=== PATIENT | female | born 1955 | race Caucasian/White ===

== ENCOUNTER → 2016-05-09 | Outpatient (CLI) | payer OTHER ==
[~2016-05-09] VITALS: Ht 162.6 cm; Wt 97.5 kg
[2016-05-09] VITALS (8 sets, daily range): BP systolic 100–144; BP diastolic 51–68
[~2016-05-09] MED LIST: ALBU2.5V13 NEB; ALBU8.5H6 IH; ALBUMIN HUMAN 25% 100 ML IV ONE; ALBUMIN HUMAN 25% 200 ML IV ONE; AMOX500C PO; ATOR10TA60 PO; CALC-98 PO; CHOL10003 PO; CYCL5TAB PO; FLUT12AE IH; FLUT16SP2 NS; FURO40TA4 PO; GUAI100L12 PO; INSU100I13 SQ; INSU100I17 SQ; LACT20SO PO; LEVO25TA2 PO; LIDOCAINE 1% / SOD BICARB 8.4% 20 ML VIAL. IJ ONE; LISI2.5T PO; LORA1TAB PO; OMEP20CA9 PO; OXYC5TAB PO; PITA2TAB2 PO; RIFA550T PO; SPIR25TA3 PO; TRAM50TA PO
[2016-05-09 09:00] LABS: BASO # 0.1 x10^3/uL (0.0-0.2); BASO % 1 % (0-3); EOS % 3 % (0-3); HEMATOCRIT 36.2 % (36.0-47.0); HEMOGLOBIN 11.8 g/dL (12.0-15.5); LYMPH % 15 % (24-48); MEAN CORPUSCULAR HEMOGLOBIN 27 pg (25-35); MEAN CORPUSCULAR HGB CONC 33 g/dL (31-37); MEAN CORPUSCULAR VOLUME 83 fL (79-100); MONO % 7 % (0-9); NEUT % 74 % (31-73); PLATELET COUNT 169 x10^3/uL (140-400); RED BLOOD COUNT 4.39 x10^6/uL (3.50-5.40); WHITE BLOOD COUNT 6.9 x10^3/uL (4.0-11.0)
[2016-05-09 09:12] LABS: INR 1.2 (0.8-1.1); PROTHROMBIN TIME PATIENT 14.2 SEC (11.7-14.0)
--- NOTE | 2016-05-09 12:46 | PDOC ---
BRIEF OPERATIVE NOTE Pre-Op Diagnosis Ascites Post-Op Diagnosis same Procedure Performed US paracentesis Surgeon Omer Anesthesia Type: Local Findings 10L thin yellow fluid removed. Albumin repletion performed Complications No immediate ALFONZO WILKINS MD May 09, 2016 12:46
--- NOTE | 2016-05-09 12:49 | RAD ---
Procedure: Ultrasound guided paracentesis Clinical Indication: 60-year-old with abdominal ascites Sedation: Local anesthesia only Antibiotics: None Fluoro Time: None Contrast: Not applicable Sterility: The procedure was performed in its entirety using appropriate elements of sterile technique. Consent: The procedure was explained in its entirety to the patient or the patients designated education courses sales representative by a member of the treatment team, including a discussion of the risks, benefits and commonly accepted alternatives to the procedure, as well as the expected consequences of no therapy whatsoever. Discussion of the risks included, but was not limited to, those that are most frequent and those that are rare but possibly severe or life-threatening, as well as the possibility of unforeseen complications. Technique and Findings: Following informed consent, the patient was prepped and draped in the usual sterile fashion. Ultrasound interrogation of the abdomen revealed abdominal ascites. A hard copy ultrasound image was recorded. 1% Lidocaine was used to achieve local anesthesia over the area of interest, and a 6 Austrian Xjfq-T-Rlyolkqo catheter was advanced into the peritoneal cavity under ultrasound guidance. 10,000 cc of thin yellow ascites was then withdrawn. The catheter was removed and hemostasis was achieved with manual compression. Complications: No immediate Impression: 1. Ultrasound-guided paracentesis as described
== END | disposition home or self-care (01) ==
LOC: INTRAD 08:41
PROVIDERS: ATTEND Internal Medicine Gastroenterology
DX: R18.8 Other ascites (principal); G62.9 Polyneuropathy, unspecified; E78.00 Pure hypercholesterolemia, unspecified; I10 Essential (primary) hypertension; J44.9 Chronic obstructive pulmonary disease, unspecified; J45.909 Unspecified asthma, uncomplicated; E66.9 Obesity, unspecified; K21.9 Gastro-esophageal reflux disease without esophagitis; Z90.710 Acquired absence of both cervix and uterus; M19.90 Unspecified osteoarthritis, unspecified site; E11.9 Type 2 diabetes mellitus without complications; E03.9 Hypothyroidism, unspecified; F41.9 Anxiety disorder, unspecified; F32.9 Major depressive disorder, single episode, unspecified; F17.200 Nicotine dependence, unspecified, uncomplicated; K74.60 Unspecified cirrhosis of liver
CPT/HCPCS: 36415; 49083; 82947; 85027; 85610; P9046

== ENCOUNTER 2016-06-14 08:43 | Outpatient (CLI) | payer OTHER ==
[~2016-06-14] VITALS: Ht 161.3 cm; Wt 95.3 kg
[~2016-06-14 08:43] MED LIST changes: -ALBU2.5V13 NEB; +ALBU2.5V14 NEB; -ALBUMIN HUMAN 25% 100 ML IV ONE; -ALBUMIN HUMAN 25% 200 ML IV ONE; -LIDOCAINE 1% / SOD BICARB 8.4% 20 ML VIAL. IJ ONE
[2016-06-14 09:15] LABS: BASO # 0.1 x10^3/uL (0.0-0.2); BASO % 1 % (0-3); EOS % 2 % (0-3); HEMATOCRIT 33.9 % (36.0-47.0); HEMOGLOBIN 11.1 g/dL (12.0-15.5); LYMPH # 0.9 x10^3/uL (1.0-4.8); LYMPH % 14 % (24-48); MEAN CORPUSCULAR HEMOGLOBIN 27 pg (25-35); MEAN CORPUSCULAR HGB CONC 33 g/dL (31-37); MEAN CORPUSCULAR VOLUME 83 fL (79-100); MONO % 8 % (0-9); NEUT % 75 % (31-73); PLATELET COUNT 144 x10^3/uL (140-400); RED BLOOD COUNT 4.08 x10^6/uL (3.50-5.40); RED CELL DISTRIBUTION WIDTH 17.8 % (11.5-14.5); WHITE BLOOD COUNT 6.3 x10^3/uL (4.0-11.0)
[2016-06-14 09:43] VITALS: BP 143/54
[2016-06-14 09:51] LABS: INR 1.2 (0.8-1.1); PROTHROMBIN TIME PATIENT 14.5 SEC (11.7-14.0)
[2016-06-14] MEDS ORDERED: LIDOCAINE 1% / SOD BICARB 8.4% 20 ML VIAL. IJ ONE ×2 (09:58→10:30)
[2016-06-14] MEDS ORDERED: ALBUMIN HUMAN 25% 100 ML IV ONE (10:54)
--- NOTE | 2016-06-14 11:14 | PDOC ---
Exam Winch Driver Winch Driver [place] Neuroradiologist Neuroradiologist F Ndumbu Pre-Procedure Diagnosis Pre-Procedure Diagnosis 60 YO female with cirrhosis and recurrent large volume ascites Post-Procedure Diagnosis Post-Procedure Diagnosis Same Procedure Performed Procedure Performed Sono guided Tx paracentesis Type of Anesthesia Type of Anesthesia Local Estimated Blood Loss EBL: Trace Specimens Specimans 7700 cc yellow-clear ascites removed and discarded Condition of Patient Condition of Patient Stable. No apparent complication. Disposition Disposition Home from [facility] post recovery, if no problems. F/u with GI. Full report to follow. JULITO SEALS MD Jun 14, 2016 11:14
[2016-06-14 11:16] VITALS: BP 133/63
--- NOTE | 2016-06-14 11:17 | PDOC1 ---
History and Physical Date of Procedure Date of Admission 06/14/16 Procedure Procedure Sono guided Tx paracentesis Indication Indication 60 YO female with cirrhosis and recurrent large volume ascites Past Medical History Past Medical History See Nursing Pre Procedure PMH Past Surgical History Past Surgical History See Nursing Pre procedure PSH Current Medications Current Medications Current Medications Lidocaine/Sodium Bicarbonate (Buffered Lidocaine 1%) 20 ml STK-MED ONCE IJ ; Start 06/14/16 at 09:58; Stop 06/14/16 at 09:59; Status DC Lidocaine/Sodium Bicarbonate 10 ml 10 ml 1X ONCE IJ Last administered on t 11:08; Start 06/14/16 at 10:30; Stop 06/14/16 at 10:31; Status DC Albumin Human (Albuminar) 100 ml @ As Directed STK-MED ONCE IV ; Start at 10:54; Stop 06/14/16 at 10:55; Status DC Active Scripts Active Reported Albuterol Sulfate Conc Neb Soln (Albuterol Sulfate) 2.5 Mg/0.5 Ml Vial.neb 2.5 Mg NEB Q6HRS PRN Omeprazole 20 Mg Capsule.dr 20 Mg PO BID Lactulose 20 Gm/30 Ml Solution 20 Gm PO TID Guaifenesin 100 Mg/5 Ml Liquid 10 Mg PO Q4HRS PRN Furosemide 40 Mg Tablet 40 Mg PO BID Vitamin D3 (Cholecalciferol (Vitamin D3)) 1,000 Unit Tablet 2,000 Unit PO DAILY Lantus Solostar (Insulin Glargine,Hum.rec.anlog) 100 Unit/1 Ml Insuln.pen 43 Unit SQ HS Calcium + Vitamin D Tablet (Calcium Carbonate/Vitamin D3) 1 Each Tablet 1 Each PO Albuterol Sulfate Hfa Inhaler (Albuterol Sulfate) 8.5 Gm Hfa.aer.ad 8.5 Gm IH Novolog Flexpen (Insulin Aspart) 100 Unit/1 Ml Insuln.pen 10 Unit SQ TIDAC Synthroid (Levothyroxine Sodium) 25 Mcg Tablet 300 Mcg PO DAILY Flovent 110MCG Hfa (Fluticasone Propionate) 12 Gm Aer.w.adap 12 Gm IH Spironolactone 25 Mg Tablet 150 Mg PO DAILY Allergies Allergies: Coded Allergies: Sulfa (Sulfonamide Antibiotics) (Verified Allergy, Severe, Swelling, ) tongue swelling, rash cephalexin (Verified Allergy, Severe, Anaphylaxis, 11/01/15) doxycycline (Verified Allergy, Intermediate, 11/01/15) insulin detemir (Verified Allergy, Intermediate, Rash, 11/01/15) niacin (Verified Allergy, Intermediate, Rash, 06/02/13) edema rifaximin (Verified Allergy, Intermediate, Itching, 11/01/15) erythromycin base (Verified Adverse Reaction, Intermediate, Diarrhea, 08/02) Physical Exam Vital Signs Vital Signs Date Time Temp Pulse Resp B/P Pulse Ox O2 Delivery O2 Flow Rate FiO2 06/14/16 09:43 98.0 87 18 143/54 95 Room Air 98.0 Lungs: Clear to auscultation Heart: Regular rate Psych/Mental Status: Other (Mild encephalopathy) Other Abdomen distended c/w ascites Assessment Assessment 60 YO female with cirrhosis and recurrent large volume ascites Problems: Plan Plan U/S guided Tx paracentesis JULITO SEALS MD Jun 14, 2016 11:17
[2016-06-14 11:35] VITALS: BP 126/74
[2016-06-14 12:00] VITALS: BP 125/59
--- NOTE | 2016-06-15 08:05 | RAD ---
Ultrasound-guided therapeutic paracentesis Indication: 60-year-old female with cirrhosis, and with recurrent, large volume ascites. Image guided therapeutic paracentesis has been requested. Anesthesia: Local only Procedure: Informed consent was obtained from the patient. This procedure was performed in the angiography suite, with the patient on a hospital cart. Preliminary ultrasound examination confirmed the presence of a large volume of abdominal/pelvic ascites. A right abdominal peritoneal fluid collection, suitable for sono guided paracentesis, was selected, was marked, and was documented with a single hard copy ultrasound image. That area was then prepped and draped in the usual sterile fashion. Conscious sedation was provided with IV Versed and fentanyl. Using aseptic technique, local anesthesia, and direct ultrasound guidance, a 21-gauge micropuncture needle was successfully introduced into the selected peritoneal fluid collection. The 21-gauge needle was exchanged over a microguidewire for a micropuncture sheath, which was, in turn, exchanged over a 0.035 inch guidewire for a 6 German drainage catheter. Approximately 7700 cc of yellow-clear ascites was removed, and was discarded. The drainage catheter was then removed and a sterile dressing was applied. Patient tolerated the procedure well without apparent complication. . Impression: Successful, uneventful ultrasound-guided therapeutic paracentesis, as described.
== END 2016-06-14 12:15 | disposition home or self-care (01) ==
LOC: INTRAD 08:43
PROVIDERS: ATTEND Internal Medicine Gastroenterology
DX: R18.8 Other ascites (principal); K74.60 Unspecified cirrhosis of liver; E78.00 Pure hypercholesterolemia, unspecified; I10 Essential (primary) hypertension; J44.9 Chronic obstructive pulmonary disease, unspecified; K21.9 Gastro-esophageal reflux disease without esophagitis; M19.90 Unspecified osteoarthritis, unspecified site; E11.9 Type 2 diabetes mellitus without complications; E03.9 Hypothyroidism, unspecified; F41.9 Anxiety disorder, unspecified; F32.9 Major depressive disorder, single episode, unspecified; E66.9 Obesity, unspecified; J45.909 Unspecified asthma, uncomplicated; Z90.710 Acquired absence of both cervix and uterus
CPT/HCPCS: 36415; 49083; 85027; 85610; A4215; C1729; C1892; C1894

== ENCOUNTER 2016-07-11 08:39 | Outpatient (CLI) | payer OTHER ==
[~2016-07-11] VITALS: Ht 167.6 cm; Wt 95.3 kg
[2016-07-11 09:03] LABS: BASO # 0.1 x10^3/uL (0.0-0.2); BASO % 1 % (0-3); EOS % 3 % (0-3); HEMATOCRIT 34.9 % (36.0-47.0); HEMOGLOBIN 11.1 g/dL (12.0-15.5); LYMPH # 0.9 x10^3/uL (1.0-4.8); LYMPH % 12 % (24-48); MEAN CORPUSCULAR HEMOGLOBIN 27 pg (25-35); MEAN CORPUSCULAR HGB CONC 32 g/dL (31-37); MEAN CORPUSCULAR VOLUME 85 fL (79-100); MONO % 6 % (0-9); NEUT % 77 % (31-73); PLATELET COUNT 132 x10^3/uL (140-400); RED BLOOD COUNT 4.11 x10^6/uL (3.50-5.40); RED CELL DISTRIBUTION WIDTH 17.9 % (11.5-14.5); WHITE BLOOD COUNT 7.2 x10^3/uL (4.0-11.0)
[2016-07-11 09:05] VITALS: BP 119/55
[2016-07-11 09:20] LABS: INR 1.1 (0.8-1.1); PROTHROMBIN TIME PATIENT 13.7 SEC (11.7-14.0)
[2016-07-11] MEDS ORDERED: LIDOCAINE 1% / SOD BICARB 8.4% 20 ML VIAL. IJ ONE ×2 (10:01→10:30)
[2016-07-11] MEDS ORDERED: ALBUMIN HUMAN 25% 100 ML IV ONE ×2 (10:45)
[2016-07-11 11:00] VITALS: BP 136/88
[2016-07-11 11:15] VITALS: BP 118/49
--- NOTE | 2016-07-11 11:22 | RAD ---
Procedure: Ultrasound guided paracentesis Clinical Indication: 60-year-old with recurrent abdominal ascites Sedation: Local anesthesia only Antibiotics: None Fluoro Time: None Contrast: Not applicable Sterility: The procedure was performed in its entirety using appropriate elements of sterile technique. Consent: The procedure was explained in its entirety to the patient or the patients designated installation service representative by a member of the treatment team, including a discussion of the risks, benefits and commonly accepted alternatives to the procedure, as well as the expected consequences of no therapy whatsoever. Discussion of the risks included, but was not limited to, those that are most frequent and those that are rare but possibly severe or life-threatening, as well as the possibility of unforeseen complications. Technique and Findings: Following informed consent, the patient was prepped and draped in the usual sterile fashion. Ultrasound interrogation of the abdomen revealed abdominal ascites. A hard copy ultrasound image was recorded. 1% Lidocaine was used to achieve local anesthesia over the area of interest, and a 6 Brazilian Zqwa-B-Ehkocwmp catheter was advanced into the peritoneal cavity under ultrasound guidance. 10,000 cc of thin yellow ascites was then withdrawn. The catheter was removed and hemostasis was achieved with manual compression. Complications: No immediate Impression: 1. Ultrasound-guided paracentesis as described
[2016-07-11 11:30] VITALS: BP 134/58
[2016-07-11 12:00] VITALS: BP 131/91
[2016-07-11 12:20] VITALS: BP 154/62
== END 2016-07-11 11:30 | disposition home or self-care (01) ==
LOC: INTRAD 08:39
PROVIDERS: ATTEND Internal Medicine Gastroenterology
DX: R18.8 Other ascites (principal); K74.60 Unspecified cirrhosis of liver; K21.9 Gastro-esophageal reflux disease without esophagitis; E78.00 Pure hypercholesterolemia, unspecified; I10 Essential (primary) hypertension; J44.9 Chronic obstructive pulmonary disease, unspecified; J45.909 Unspecified asthma, uncomplicated; E66.9 Obesity, unspecified; M19.90 Unspecified osteoarthritis, unspecified site; F41.9 Anxiety disorder, unspecified; F32.9 Major depressive disorder, single episode, unspecified; E11.9 Type 2 diabetes mellitus without complications; Z87.39 Personal history of other diseases of the musculoskeletal system and connective tissue; Z90.710 Acquired absence of both cervix and uterus
CPT/HCPCS: 36415; 49083; 85027; 85610; P9046

== ENCOUNTER → 2016-08-23 | Outpatient (CLI) | payer OTHER ==
[2016-08-23] VITALS (13 sets, daily range): BP systolic 112–140; BP diastolic 44–70
[~2016-08-23] VITALS: Ht 162.6 cm; Wt 99.8 kg
[~2016-08-23] MED LIST changes: +ALBUMIN HUMAN 25% 100 ML IV ONE; +ALBUMIN HUMAN 25% 200 ML IV ONE; +IBUPROFEN 600 MG TABLET. PO ONE; -LEVO25TA2 PO; +LEVO25TA55 PO; +LIDOCAINE 1% / SOD BICARB 8.4% 20 ML VIAL. IJ ONE
[2016-08-23 08:58] LABS: PROTHROMBIN TIME PATIENT 13.6 SEC (11.7-14.0)
[2016-08-23 09:02] LABS: BASO % 1 % (0-3); EOS % 2 % (0-3); HEMATOCRIT 33.3 % (36.0-47.0); HEMOGLOBIN 10.8 g/dL (12.0-15.5); LYMPH # 0.8 x10^3/uL (1.0-4.8); LYMPH % 13 % (24-48); MEAN CORPUSCULAR HEMOGLOBIN 27 pg (25-35); MEAN CORPUSCULAR HGB CONC 32 g/dL (31-37); MEAN CORPUSCULAR VOLUME 85 fL (79-100); MONO % 8 % (0-9); NEUT % 76 % (31-73); PLATELET COUNT 168 x10^3/uL (140-400); RED BLOOD COUNT 3.92 x10^6/uL (3.50-5.40); RED CELL DISTRIBUTION WIDTH 17.6 % (11.5-14.5); WHITE BLOOD COUNT 6.6 x10^3/uL (4.0-11.0)
--- NOTE | 2016-08-23 11:00 | PDOC1 ---
History and Physical Date of Procedure Date of Admission Indication Indication recurrent ascites, cirrhosis History of Present Illness Reason for Visit adult female with cirrhosis and recurrent ascites for a therapeutic paracentesis Past Medical History Past Medical History see nursing pre-op assessment Current Medications Current Medications Current Medications Lidocaine/Sodium Bicarbonate (Buffered Lidocaine 1%) 20 ml STK-MED ONCE IJ ; Start 08/23/16 at 08:25; Stop 08/23/16 at 08:26; Status DC Lidocaine/Sodium Bicarbonate (Buffered Lidocaine 1%) 3 ml 1X ONCE IJ Last administered on 08/23/16 09:00; Start 08/23/16 at 09:00; Stop 08/23/16 at 09:27; Status DC Albumin Human 200 ml @ As Directed STK-MED ONCE IV ; Start 08/23/16 at 09:30; Stop 08/23/16 at 09:31; Status DC Albumin Human 100 ml @ 100 mls/hr 1X ONCE IV Last administered on 08/23/16 09 :40; Start 08/23/16 at 09:45; Stop 08/23/16 at 10:44; Status DC Albumin Human 100 ml @ 100 mls/hr 1X ONCE IV Last administered on 08/23/16 09 :45; Start 08/23/16 at 09:45; Stop 08/23/16 at 10:44; Status DC Active Scripts Active Reported Albuterol Sulfate Conc Neb Soln (Albuterol Sulfate) 2.5 Mg/0.5 Ml Vial.neb 2.5 Mg NEB Q6HRS PRN Omeprazole 20 Mg Capsule.dr 20 Mg PO BID Lactulose 20 Gm/30 Ml Solution 20 Gm PO TID Guaifenesin 100 Mg/5 Ml Liquid 10 Mg PO Q4HRS PRN Furosemide 40 Mg Tablet 40 Mg PO BID Vitamin D3 (Cholecalciferol (Vitamin D3)) 1,000 Unit Tablet 2,000 Unit PO DAILY Lantus Solostar (Insulin Glargine,Hum.rec.anlog) 100 Unit/1 Ml Insuln.pen 43 Unit SQ HS Calcium + Vitamin D Tablet (Calcium Carbonate/Vitamin D3) 1 Each Tablet 1 Each PO Albuterol Sulfate Hfa Inhaler (Albuterol Sulfate) 8.5 Gm Hfa.aer.ad 8.5 Gm IH Novolog Flexpen (Insulin Aspart) 100 Unit/1 Ml Insuln.pen 10 Unit SQ TIDAC Synthroid (Levothyroxine Sodium) 25 Mcg Tablet 300 Mcg PO DAILY Flovent 110MCG Hfa (Fluticasone Propionate) 12 Gm Aer.w.adap 12 Gm IH Spironolactone 25 Mg Tablet 150 Mg PO DAILY Allergies Allergies: Coded Allergies: Sulfa (Sulfonamide Antibiotics) (Verified Allergy, Severe, Swelling, ) tongue swelling, rash cephalexin (Verified Allergy, Severe, Anaphylaxis, 11/01/15) doxycycline (Verified Allergy, Intermediate, 11/01/15) insulin detemir (Verified Allergy, Intermediate, Rash, 11/01/15) niacin (Verified Allergy, Intermediate, Rash, 06/02/13) edema rifaximin (Verified Allergy, Intermediate, Itching, 11/01/15) erythromycin base (Verified Adverse Reaction, Intermediate, Diarrhea, 08/02) Physical Exam Vital Signs Vital Signs Date Time Temp Pulse Resp B/P (MAP) Pulse Ox O2 Delivery O2 Flow Rate FiO2 08/23/16 10:35 91 133/59 (83) 98 08/23/16 10:23 36 Nasal Cannula 2.0 08/23/16 07:35 97.5 97.5 Other see nursing pre-op assessment Assessment Assessment cirrhosis and ascites Problems: Plan Plan US paracentesis ALFONZO WILKINS MD August 23, 2016 11:00
--- NOTE | 2016-08-23 11:01 | PDOC ---
BRIEF OPERATIVE NOTE Pre-Op Diagnosis cirrhosis and ascites Post-Op Diagnosis same Procedure Performed US paracentesis Surgeon Omer Anesthesia Type: Local Findings 12 liters of thin yellow fluid Complications No immediate ALFONZO WILKINS MD August 23, 2016 11:01
--- NOTE | 2016-08-24 12:57 | RAD ---
Procedure: Ultrasound guided paracentesis Clinical Indication: 60-year-old with cirrhosis and recurrent abdominal ascites Sedation: Local anesthesia only Antibiotics: None Fluoro Time: None Contrast: Not applicable Sterility: The procedure was performed in its entirety using appropriate elements of sterile technique. Consent: The procedure was explained in its entirety to the patient or the patients designated account maintenance representative by a member of the treatment team, including a discussion of the risks, benefits and commonly accepted alternatives to the procedure, as well as the expected consequences of no therapy whatsoever. Discussion of the risks included, but was not limited to, those that are most frequent and those that are rare but possibly severe or life-threatening, as well as the possibility of unforeseen complications. Technique and Findings: Following informed consent, the patient was prepped and draped in the usual sterile fashion. Ultrasound interrogation of the abdomen revealed abdominal ascites. A hard copy ultrasound image was recorded. 1% Lidocaine was used to achieve local anesthesia over the area of interest, and a 6 Ghanaian Jyvz-X-Jjxdlggs catheter was advanced into the peritoneal cavity under ultrasound guidance. 11,400 cc of thin yellow ascites was then withdrawn. The catheter was removed and hemostasis was achieved with manual compression. The patient was repleted with albumin. Complications: No immediate Impression: 1. Ultrasound-guided paracentesis as described
== END | disposition home or self-care (01) ==
LOC: INTRAD 07:03
PROVIDERS: ATTEND Internal Medicine Gastroenterology
DX: K74.60 Unspecified cirrhosis of liver (principal); E78.00 Pure hypercholesterolemia, unspecified; I10 Essential (primary) hypertension; J44.9 Chronic obstructive pulmonary disease, unspecified; J45.909 Unspecified asthma, uncomplicated; E66.9 Obesity, unspecified; K21.9 Gastro-esophageal reflux disease without esophagitis; M19.90 Unspecified osteoarthritis, unspecified site; F41.9 Anxiety disorder, unspecified; F32.9 Major depressive disorder, single episode, unspecified; E03.9 Hypothyroidism, unspecified; Z90.710 Acquired absence of both cervix and uterus; Z87.39 Personal history of other diseases of the musculoskeletal system and connective tissue
CPT/HCPCS: 36415; 49083; 85027; 85610; P9046

== ENCOUNTER → 2016-10-03 | Outpatient (CLI) | payer OTHER ==
[~2016-10-03] VITALS: Ht 161.3 cm; Wt 98.4 kg
[~2016-10-03] MED LIST changes: -ALBUMIN HUMAN 25% 200 ML IV ONE; -IBUPROFEN 600 MG TABLET. PO ONE; +LIDOCAINE 2% 20 ML VIAL. IJ ONE; -RIFA550T PO; +RIFA550T4 PO
[2016-10-03 09:11] LABS: BASO # 0.1 x10^3/uL (0.0-0.2); BASO % 1 % (0-3); EOS % 2 % (0-3); HEMATOCRIT 33.5 % (36.0-47.0); HEMOGLOBIN 10.9 g/dL (12.0-15.5); LYMPH # 0.7 x10^3/uL (1.0-4.8); LYMPH % 11 % (24-48); MEAN CORPUSCULAR HEMOGLOBIN 27 pg (25-35); MEAN CORPUSCULAR HGB CONC 33 g/dL (31-37); MEAN CORPUSCULAR VOLUME 84 fL (79-100); MONO % 7 % (0-9); NEUT % 80 % (31-73); PLATELET COUNT 119 x10^3/uL (140-400); RED CELL DISTRIBUTION WIDTH 17.5 % (11.5-14.5); WHITE BLOOD COUNT 6.9 x10^3/uL (4.0-11.0)
[2016-10-03 09:22] VITALS: BP 141/59
[2016-10-03 09:22] LABS: INR 1.1 (0.8-1.1); PROTHROMBIN TIME PATIENT 13.6 SEC (11.7-14.0)
[2016-10-03 10:51] VITALS: BP 131/66
--- NOTE | 2016-10-03 11:00 | PDOC1 ---
History and Physical Date of Procedure Date of Admission 10/03/16 Procedure Procedure Sono guided Tx paracentesis Indication Indication 61 YO female with cirrhosis and recurrent/refractory ascites. Past Medical History Past Medical History See Nursing Pre procedure PMH Past Surgical History Past Surgical History See Nursing Pre procedure PSH Current Medications Current Medications Current Medications Lidocaine/Sodium Bicarbonate (Buffered Lidocaine 1%) 20 ml STK-MED ONCE IJ ; Start 10/03/16 at 09:14; Stop 10/03/16 at 09:15; Status DC Albumin Human 100 ml @ As Directed STK-MED ONCE IV ; Start 10/03/16 at 10:05; Stop 10/03/16 at 10:06; Status DC Albumin Human 100 ml @ 100 mls/hr 1X ONCE IV Last administered on 10/03/16t 10:53; Start 10/03/16 at 11:00; Stop 10/03/16 at 11:59 Active Scripts Active Reported Amoxicillin 500 Mg Capsule 1 Cap PO BID Albuterol Sulfate Conc Neb Soln (Albuterol Sulfate) 2.5 Mg/0.5 Ml Vial.neb 2.5 Mg NEB Q6HRS PRN Omeprazole 20 Mg Capsule.dr 20 Mg PO BID Lactulose 20 Gm/30 Ml Solution 20 Gm PO TID Guaifenesin 100 Mg/5 Ml Liquid 10 Mg PO Q4HRS PRN Furosemide 40 Mg Tablet 40 Mg PO BID Vitamin D3 (Cholecalciferol (Vitamin D3)) 1,000 Unit Tablet 2,000 Unit PO DAILY Lantus Solostar (Insulin Glargine,Hum.rec.anlog) 100 Unit/1 Ml Insuln.pen 43 Unit SQ HS Calcium + Vitamin D Tablet (Calcium Carbonate/Vitamin D3) 1 Each Tablet 1 Each PO Albuterol Sulfate Hfa Inhaler (Albuterol Sulfate) 8.5 Gm Hfa.aer.ad 8.5 Gm IH Novolog Flexpen (Insulin Aspart) 100 Unit/1 Ml Insuln.pen 10 Unit SQ TIDAC Synthroid (Levothyroxine Sodium) 25 Mcg Tablet 300 Mcg PO DAILY Flovent 110MCG Hfa (Fluticasone Propionate) 12 Gm Aer.w.adap 12 Gm IH Spironolactone 25 Mg Tablet 150 Mg PO DAILY Allergies Allergies: Coded Allergies: Sulfa (Sulfonamide Antibiotics) (Verified Allergy, Severe, Swelling, ) tongue swelling, rash cephalexin (Verified Allergy, Severe, Anaphylaxis, 11/01/15) doxycycline (Verified Allergy, Intermediate, 11/01/15) insulin detemir (Verified Allergy, Intermediate, Rash, 11/01/15) niacin (Verified Allergy, Intermediate, Rash, 06/02/13) edema rifaximin (Verified Allergy, Intermediate, Itching, 11/01/15) erythromycin base (Verified Adverse Reaction, Intermediate, Diarrhea, 08/02) Physical Exam Vital Signs Vital Signs Date Time Temp Pulse Resp B/P (MAP) Pulse Ox O2 Delivery O2 Flow Rate FiO2 10/03/16 10:51 88 16 131/66 (87) 96 Room Air 10/03/16 09:22 98.5 98.5 Lungs: Other (Diminishe basilar breath sounds) Heart: Regular rate Psych/Mental Status: Mental status NL Other Abdominal distension with fluid wave Assessment Assessment 61 YO female with cirrhosis and recurrent/refractory ascites. Problems: Plan Plan Image guided Tx paracentesis, per GI standing order. JULITO SELAS MD Oct 03, 2016 11:00
--- NOTE | 2016-10-03 11:11 | PDOC ---
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 No apparent complication. Infusion of 50 grams 25% albumin was initiated during the large volume paracentesis procedure. Disposition Disposition Home from [facility] post recovery, if no problems. F/u with referring MD. Full report to follow. JULITO SEALS MD Oct 03, 2016 11:10
--- NOTE | 2016-10-04 06:25 | RAD ---
Ultrasound-guided therapeutic paracentesis Indication: 61-year-old female with cirrhosis and with recurrent/refractory large volume ascites. Image guided therapeutic paracentesis has been requested. Anesthesia: Local only. Procedure: Informed consent was obtained from the patient. This procedure was performed in the CT suite, with the patient on a hospital cart. Preliminary ultrasound examination confirmed the presence of a large volume of abdominal/pelvic ascites. A right lateral abdominal peritoneal fluid collection, suitable for sono guided paracentesis, was selected, was marked, and was documented with a single hard copy ultrasound image. That area was then prepped and draped in the usual sterile fashion. Using aseptic technique, local anesthesia, and direct sterile ultrasound guidance, a 21-gauge micropuncture needle was successfully introduced into the selected peritoneal fluid collection. The 21-gauge needle was exchanged over a microguidewire for a micropuncture sheath, which was, in turn, exchanged over a 0.035 inch guidewire for an 8 Kiswahili drainage catheter. Approximately 9400 cc of straw-clear ascites was removed, a sample of which was submitted to microbiology for culture and sensitivity. The drainage catheter was then removed and a sterile dressing was applied. Patient tolerated the procedure well without apparent complication. Infusion of 50 g 25% albumin was initiated during the paracentesis procedure. Impression: Successful, uneventful ultrasound-guided therapeutic paracentesis, as described.
== END | disposition home or self-care (01) ==
LOC: INTRAD 08:44
PROVIDERS: ATTEND Internal Medicine Gastroenterology
DX: R18.8 Other ascites (principal); K74.60 Unspecified cirrhosis of liver; E11.42 Type 2 diabetes mellitus with diabetic polyneuropathy; J44.9 Chronic obstructive pulmonary disease, unspecified; I10 Essential (primary) hypertension; J45.909 Unspecified asthma, uncomplicated; K21.9 Gastro-esophageal reflux disease without esophagitis; E78.00 Pure hypercholesterolemia, unspecified; F41.9 Anxiety disorder, unspecified; F32.9 Major depressive disorder, single episode, unspecified; Z86.69 Personal history of other diseases of the nervous system and sense organs; Z90.710 Acquired absence of both cervix and uterus; Z72.0 Tobacco use; Z87.440 Personal history of urinary (tract) infections; Z87.39 Personal history of other diseases of the musculoskeletal system and connective tissue; Z88.1 Allergy status to other antibiotic agents; Z88.3 Allergy status to other anti-infective agents; Z88.2 Allergy status to sulfonamides; Z91.048 Other nonmedicinal substance allergy status
CPT/HCPCS: 36415; 49083; 85027; 85610; 87071; 87075; 87205; A4215; C1729; C1892; C1894; P9046

== ENCOUNTER 2016-10-31 08:39 | Outpatient (CLI) | payer OTHER ==
[2016-10-31] VITALS (7 sets, daily range): BP systolic 106–128; BP diastolic 40–60
[~2016-10-31] VITALS: Ht 160 cm; Wt 98.4 kg
[~2016-10-31 08:39] MED LIST changes: -ALBUMIN HUMAN 25% 100 ML IV ONE; -LIDOCAINE 1% / SOD BICARB 8.4% 20 ML VIAL. IJ ONE; -LIDOCAINE 2% 20 ML VIAL. IJ ONE
[2016-10-31] MEDS ORDERED: LIDOCAINE 1% / SOD BICARB 8.4% 20 ML VIAL. IJ ONE ×2 (09:46→10:45)
[2016-10-31 09:49] LABS: BASO # 0.1 x10^3/uL (0.0-0.2); BASO % 1 % (0-3); EOS % 3 % (0-3); HEMATOCRIT 31.1 % (36.0-47.0); HEMOGLOBIN 10.7 g/dL (12.0-15.5); LYMPH # 0.8 x10^3/uL (1.0-4.8); LYMPH % 11 % (24-48); MEAN CORPUSCULAR HEMOGLOBIN 28 pg (25-35); MEAN CORPUSCULAR HGB CONC 35 g/dL (31-37); MEAN CORPUSCULAR VOLUME 82 fL (79-100); MONO % 8 % (0-9); NEUT % 77 % (31-73); PLATELET COUNT 118 x10^3/uL (140-400); RED CELL DISTRIBUTION WIDTH 17.7 % (11.5-14.5); WHITE BLOOD COUNT 7.1 x10^3/uL (4.0-11.0)
[2016-10-31 09:56] LABS: INR 1.1 (0.8-1.1); PROTHROMBIN TIME PATIENT 13.7 SEC (11.7-14.0)
[2016-10-31] MEDS ORDERED: ALBUMIN HUMAN 25% 100 ML IV ONE ×3 (10:14→11:15)
--- NOTE | 2016-10-31 13:33 | RAD ---
Sono guided paracentesis 10/31/2016: Indication: Recurrent ascites Procedure: After informed consent was obtained, sonographic evaluation of the right lower quadrant was performed. The right lower quadrant was prepped and draped in sterile fashion. Micropuncture technique was used to access the peritoneal cavity under direct ultrasound guidance. 035 wire was advanced into the peritoneum over which an 8 Azeri pigtail drainage catheter was advanced into the peritoneum. 9.5 L of serous ascites was aspirated. The catheter was removed and manual pressure held to achieve hemostasis. Albumin administration was ordered per protocol. Sterile dressing was applied.. Impression: Successful ultrasound-guided paracentesis with removal of 9.5 L of ascites
== END 2016-10-31 12:00 | disposition home or self-care (01) ==
LOC: INTRAD 08:39
PROVIDERS: ATTEND Internal Medicine Gastroenterology
DX: R18.8 Other ascites (principal); Z86.69 Personal history of other diseases of the nervous system and sense organs; E78.00 Pure hypercholesterolemia, unspecified; I10 Essential (primary) hypertension; J44.9 Chronic obstructive pulmonary disease, unspecified; J45.909 Unspecified asthma, uncomplicated; K21.9 Gastro-esophageal reflux disease without esophagitis; Z90.710 Acquired absence of both cervix and uterus; Z87.39 Personal history of other diseases of the musculoskeletal system and connective tissue; M19.90 Unspecified osteoarthritis, unspecified site; Z86.39 Personal history of other endocrine, nutritional and metabolic disease; E66.9 Obesity, unspecified; Z68.43 Body mass index [BMI] 50.0-59.9, adult; E11.9 Type 2 diabetes mellitus without complications; F41.9 Anxiety disorder, unspecified; F32.9 Major depressive disorder, single episode, unspecified; Z72.0 Tobacco use; F17.200 Nicotine dependence, unspecified, uncomplicated; Z88.1 Allergy status to other antibiotic agents; Z88.2 Allergy status to sulfonamides; Z88.8 Allergy status to other drugs, medicaments and biological substances
CPT/HCPCS: 36415; 49083; 85027; 85610; A4215; C1729; C1887; C1892; P9046

== ENCOUNTER → 2016-11-08 | Day surgery (SDC) | payer OTHER ==
[~2016-11-08] MED LIST changes: +HYDROmorphone 2 MG/ML VIAL IV PRN; +IV RINGERS,LACTATED 1000ML 1,000 ML IV SCH; +LIDOCAINE 1% 1 ML SYRINGE. ID PRN; +LIDOCAINE 2% PF Vial for OR 5 ML VIAL. ONE; +MORPHINE SULFATE 2 MG/ML DISP.SYRIN. IV PRN; +ONDANSETRON PF 4 MG/2 ML VIAL. IV PRN; +PROCHLORPERAZINE 10 MG/2 ML VIAL. IV PRN; +PROPOFOL 20 ML IV ONE; +fentaNYL PF VIAL 100 MCG/2 ML VIAL IV PRN
[2016-11-08 13:28] VITALS: BP 112/56
--- NOTE | 2016-11-09 04:13 | HP ---
ADMIT DATE: 11/08/2016 REFERRING PHYSICIAN: Harshal Vaz MD HISTORY OF PRESENT ILLNESS: This is a 61-year-old female with past medical history significant for cirrhosis of the liver with diabetes, hyperlipidemia, hypothyroidism, is seen for interval upper endoscopy with band ligation. She has been on Lasix and Aldactone for ascites with interval paracentesis. There has been no bleeding. With continued issues of cirrhosis, surveillance endoscopy and ligation are recommended at this time. PAST MEDICAL HISTORY: Anemia, arthritis, history of DVT, cirrhosis of the liver, colonic polyps, diabetes, hypothyroidism, hyperlipidemia. ALLERGIES: SULFA, CEPHALEXIN, DOXYCYCLINE, ERYTHROMYCIN, INSULIN, NIACIN, POVIDINE, RIFAXIMIN. MEDICATIONS: Include albuterol, amoxicillin, calcium, cholecalciferol, Flovent, furosemide, insulin, lactulose, levothyroxine, omeprazole, spironolactone. FAMILY AND SOCIAL HISTORY: Strokes with her mother and diabetes with her mother. She is currently a smoker. She is a nondrinker at this time. PAST SURGICAL HISTORY: Hysterectomy, tonsillectomy. REVIEW OF SYSTEMS: Per records. PHYSICAL EXAMINATION: GENERAL: Reveals a well-nourished, well-developed female. VITAL SIGNS: Temp is 98.6, pulse 73, respiratory rate is 22. HEENT: Reveals a normocephalic, atraumatic head. Pupils and extraocular muscles not tested. Sclerae anicteric. NECK: Supple. LUNGS: Clear. CARDIOVASCULAR: Reveals an S1, S2 without S3, S4 or appreciable murmur. ABDOMEN: Reveals a soft abdomen, normal bowel sounds, without appreciable hepatosplenomegaly. Ascites is noted. EXTREMITIES: Reveals no cyanosis, clubbing or edema. IMPRESSION: Cirrhosis of the liver with known ascites. EGD with variceal band ligation will be recommended. Risks and benefits have been discussed with the patient who is willing to proceed at this time. I would like to thank Dr. Vaz for allowing us to consult and participate in this patient's care. RUEL WILCOX MD DR: ANTHONY/rebeka JOB#: [id number] / [id number]
== END | disposition home or self-care (01) ==
LOC: ENDOS 12:07
PROVIDERS: ATTEND Internal Medicine Gastroenterology
DX: I85.00 Esophageal varices without bleeding (principal); K29.20 Alcoholic gastritis without bleeding; Z86.69 Personal history of other diseases of the nervous system and sense organs; E78.00 Pure hypercholesterolemia, unspecified; I10 Essential (primary) hypertension; J44.9 Chronic obstructive pulmonary disease, unspecified; J45.909 Unspecified asthma, uncomplicated; E66.9 Obesity, unspecified; Z68.44 Body mass index [BMI] 60.0-69.9, adult; K21.9 Gastro-esophageal reflux disease without esophagitis; Z90.710 Acquired absence of both cervix and uterus; E03.9 Hypothyroidism, unspecified; F41.9 Anxiety disorder, unspecified; F32.9 Major depressive disorder, single episode, unspecified; Z72.0 Tobacco use; Z88.8 Allergy status to other drugs, medicaments and biological substances; Z88.1 Allergy status to other antibiotic agents; Z91.041 Radiographic dye allergy status
CPT/HCPCS: 43235; J2001; J2704

== ENCOUNTER 2016-11-23 08:45 | Outpatient (CLI) | payer OTHER ==
[~2016-11-23] VITALS: Ht 162.6 cm; Wt 97.5 kg
[~2016-11-23 08:45] MED LIST changes: -HYDROmorphone 2 MG/ML VIAL IV PRN; -IV RINGERS,LACTATED 1000ML 1,000 ML IV SCH; -LIDOCAINE 1% 1 ML SYRINGE. ID PRN; -LIDOCAINE 2% PF Vial for OR 5 ML VIAL. ONE; -MORPHINE SULFATE 2 MG/ML DISP.SYRIN. IV PRN; -ONDANSETRON PF 4 MG/2 ML VIAL. IV PRN; -PROCHLORPERAZINE 10 MG/2 ML VIAL. IV PRN; -PROPOFOL 20 ML IV ONE; -fentaNYL PF VIAL 100 MCG/2 ML VIAL IV PRN
[2016-11-23 09:56] VITALS: BP 113/51
[2016-11-23 09:56] LABS: BASO # 0.1 x10^3/uL (0.0-0.2); BASO % 1 % (0-3); EOS % 3 % (0-3); HEMATOCRIT 32.2 % (36.0-47.0); HEMOGLOBIN 10.4 g/dL (12.0-15.5); LYMPH # 0.7 x10^3/uL (1.0-4.8); LYMPH % 11 % (24-48); MEAN CORPUSCULAR HEMOGLOBIN 27 pg (25-35); MEAN CORPUSCULAR HGB CONC 32 g/dL (31-37); MEAN CORPUSCULAR VOLUME 85 fL (79-100); MONO % 9 % (0-9); NEUT % 77 % (31-73); PLATELET COUNT 119 x10^3/uL (140-400); RED BLOOD COUNT 3.81 x10^6/uL (3.50-5.40); RED CELL DISTRIBUTION WIDTH 17.7 % (11.5-14.5); WHITE BLOOD COUNT 6.2 x10^3/uL (4.0-11.0)
[2016-11-23 10:01] LABS: INR 1.1 (0.8-1.1); PROTHROMBIN TIME PATIENT 13.9 SEC (11.7-14.0)
[2016-11-23 13:20] VITALS: BP 114/55
[2016-11-23 13:35] VITALS: BP 110/49
[2016-11-23 13:50] VITALS: BP 122/55
--- NOTE | 2016-11-23 15:22 | RAD ---
Ultrasound-guided paracentesis 11/23/2016 Indication: Tense ascites Discussion: The risks and benefits of the procedure were discussed the patient. Informed consent was obtained. A timeout procedure was performed. The right lower quadrant was prepped and draped using maximum sterile barrier technique. 1% lidocaine without epinephrine was administered for local anesthesia. Under direct ultrasound guidance a 5 Telugu sheath needle was advanced into the pleural space. Serous ascites was aspirated. The catheter was connected to suction and 9 L of ascites were removed. The needle was removed and manual pressure held to achieve hemostasis. No immediate complications were identified. Impression: Successful ultrasound-guided paracentesis with removal of 9 L of serous ascites
== END 2016-11-23 14:05 | disposition home or self-care (01) ==
LOC: INTRAD 08:45
PROVIDERS: ATTEND Internal Medicine Gastroenterology
DX: R18.8 Other ascites (principal); Z86.69 Personal history of other diseases of the nervous system and sense organs; E78.00 Pure hypercholesterolemia, unspecified; J44.9 Chronic obstructive pulmonary disease, unspecified; J45.909 Unspecified asthma, uncomplicated; E66.9 Obesity, unspecified; Z68.44 Body mass index [BMI] 60.0-69.9, adult; Z90.710 Acquired absence of both cervix and uterus; Z87.440 Personal history of urinary (tract) infections; Z86.39 Personal history of other endocrine, nutritional and metabolic disease; F41.9 Anxiety disorder, unspecified; F32.9 Major depressive disorder, single episode, unspecified; E11.9 Type 2 diabetes mellitus without complications; F17.200 Nicotine dependence, unspecified, uncomplicated; Z88.1 Allergy status to other antibiotic agents; Z88.3 Allergy status to other anti-infective agents; Z88.2 Allergy status to sulfonamides
CPT/HCPCS: 36415; 49083; 82962; 85027; 85610; C1887

== ENCOUNTER 2016-12-12 08:47 | Outpatient (CLI) | payer OTHER ==
[2016-12-12] VITALS (9 sets, daily range): BP systolic 117–145; BP diastolic 44–80
[2016-12-12] MEDS ORDERED: LIDOCAINE 1% / SOD BICARB 8.4% 20 ML VIAL. IJ ONE (10:05)
[2016-12-12] MEDS ORDERED: ALBUMIN HUMAN 25% 100 ML IV ONE ×2 (11:00)
--- NOTE | 2016-12-13 08:00 | RAD ---
Ultrasound guided paracentesis Indication: Recurrent ascites Procedure: The risks and benefits of the procedure were discussed the patient. Informed consent was obtained. Timeout procedure was performed. Ultrasound evaluation of the right lower quadrant was performed demonstrating large volume ascites. The right lower quadrant was prepped and draped in sterile fashion. Real-time ultrasonographic guidance was used in passing a sheathed 18-gauge needle into the fluid collection. The catheter was connected to suction ascites removed. A total of approximately 9 L of ascites were removed. The catheter was removed and manual pressure held to achieve hemostasis. A sterile dressing was applied. Impression: Successful ultrasound-guided paracentesis
== END 2016-12-12 12:47 | disposition home or self-care (01) ==
LOC: INTRAD 08:47
PROVIDERS: ATTEND Internal Medicine Gastroenterology
DX: R18.8 Other ascites (principal); E78.00 Pure hypercholesterolemia, unspecified; E11.42 Type 2 diabetes mellitus with diabetic polyneuropathy; J44.9 Chronic obstructive pulmonary disease, unspecified; I10 Essential (primary) hypertension; K21.9 Gastro-esophageal reflux disease without esophagitis; E66.9 Obesity, unspecified; Z68.44 Body mass index [BMI] 60.0-69.9, adult; J98.9 Respiratory disorder, unspecified; E03.9 Hypothyroidism, unspecified; F41.9 Anxiety disorder, unspecified; F32.9 Major depressive disorder, single episode, unspecified; F17.200 Nicotine dependence, unspecified, uncomplicated; K74.60 Unspecified cirrhosis of liver; Z86.69 Personal history of other diseases of the nervous system and sense organs; Z87.440 Personal history of urinary (tract) infections; Z87.39 Personal history of other diseases of the musculoskeletal system and connective tissue; Z90.710 Acquired absence of both cervix and uterus; Z86.39 Personal history of other endocrine, nutritional and metabolic disease; Z72.0 Tobacco use; Z88.2 Allergy status to sulfonamides; Z88.1 Allergy status to other antibiotic agents; Z91.041 Radiographic dye allergy status
CPT/HCPCS: 36415; 49083; 85610; P9046

== ENCOUNTER 2016-12-28 07:20 | Outpatient (CLI) | payer OTHER ==
[~2016-12-28] VITALS: Ht 165.1 cm; Wt 97.5 kg
[2016-12-28] VITALS (19 sets, daily range): BP systolic 109–140; BP diastolic 42–61
[~2016-12-28 07:20] MED LIST changes: -OXYC5TAB PO; +OXYC5TAB95 PO
[2016-12-28 08:00] LABS: BASO # 0.1 x10^3/uL (0.0-0.2); BASO % 1 % (0-3); EOS % 3 % (0-3); HEMOGLOBIN 10.2 g/dL (12.0-15.5); LYMPH # 0.8 x10^3/uL (1.0-4.8); LYMPH % 12 % (24-48); MEAN CORPUSCULAR HEMOGLOBIN 28 pg (25-35); MEAN CORPUSCULAR HGB CONC 33 g/dL (31-37); MEAN CORPUSCULAR VOLUME 85 fL (79-100); MONO % 8 % (0-9); NEUT % 76 % (31-73); PLATELET COUNT 168 x10^3/uL (140-400); RED BLOOD COUNT 3.67 x10^6/uL (3.50-5.40); RED CELL DISTRIBUTION WIDTH 17.8 % (11.5-14.5); WHITE BLOOD COUNT 6.3 x10^3/uL (4.0-11.0)
[2016-12-28 08:21] LABS: INR 1.2 (0.8-1.1); PROTHROMBIN TIME PATIENT 14.9 SEC (11.7-14.0)
[2016-12-28] MEDS ORDERED: LIDOCAINE 1% / SOD BICARB 8.4% 20 ML VIAL. IJ ONE (08:30)
[2016-12-28] MEDS ORDERED: ALBUMIN HUMAN 25% 100 ML IV ONE ×2 (09:15→10:00)
--- NOTE | 2016-12-28 11:49 | RAD ---
Sono guided paracentesis 10/31/2016: Indication: Recurrent ascites Procedure: After informed consent was obtained, sonographic evaluation of the right lower quadrant was performed. The right lower quadrant was prepped and draped in sterile fashion. 5 Urdu Yueh needle was used to access the peritoneal cavity under direct ultrasound guidance. 035 wire was advanced into the peritoneum over which an 6 Urdu pigtail drainage catheter was advanced into the peritoneum.10 L of serous ascites was aspirated. The catheter was removed and manual pressure held to achieve hemostasis. Albumin administration was ordered per protocol. Sterile dressing was applied.. Impression: Successful ultrasound-guided paracentesis with removal of 10 L of ascites
== END 2016-12-28 11:00 | disposition home or self-care (01) ==
LOC: INTRAD 07:20
PROVIDERS: ATTEND Internal Medicine Gastroenterology
DX: R18.8 Other ascites (principal); Z86.69 Personal history of other diseases of the nervous system and sense organs; E78.00 Pure hypercholesterolemia, unspecified; I10 Essential (primary) hypertension; J44.9 Chronic obstructive pulmonary disease, unspecified; E66.9 Obesity, unspecified; Z68.44 Body mass index [BMI] 60.0-69.9, adult; K21.9 Gastro-esophageal reflux disease without esophagitis; M19.91 Primary osteoarthritis, unspecified site; E03.9 Hypothyroidism, unspecified; E11.9 Type 2 diabetes mellitus without complications; F41.9 Anxiety disorder, unspecified; F32.9 Major depressive disorder, single episode, unspecified; Z72.0 Tobacco use; Z90.710 Acquired absence of both cervix and uterus; Z87.440 Personal history of urinary (tract) infections; Z87.39 Personal history of other diseases of the musculoskeletal system and connective tissue; Z88.2 Allergy status to sulfonamides; Z88.8 Allergy status to other drugs, medicaments and biological substances; Z88.1 Allergy status to other antibiotic agents; Z91.041 Radiographic dye allergy status; Z79.01 Long term (current) use of anticoagulants
CPT/HCPCS: 36415; 49083; 85025; 85610; 85730; P9046

== ENCOUNTER → 2017-01-14 | Outpatient (CLI) | payer OTHER ==
[2017-01-14] VITALS (10 sets, daily range): BP systolic 111–156; BP diastolic 47–63
[~2017-01-14] MED LIST changes: +ALBUMIN HUMAN 25% 100 ML IV ONE; +ALBUMIN HUMAN 25% 200 ML IV ONE; +ALBUMIN HUMAN 25% 50 ML IV ONE; +LIDOCAINE 1% / SOD BICARB 8.4% 20 ML VIAL. IJ ONE
[2017-01-14 09:13] LABS: BASO # 0.1 x10^3/uL (0.0-0.2); BASO % 1 % (0-3); EOS % 3 % (0-3); HEMATOCRIT 32.7 % (36.0-47.0); HEMOGLOBIN 10.6 g/dL (12.0-15.5); LYMPH # 0.8 x10^3/uL (1.0-4.8); LYMPH % 12 % (24-48); MEAN CORPUSCULAR HEMOGLOBIN 27 pg (25-35); MEAN CORPUSCULAR HGB CONC 32 g/dL (31-37); MEAN CORPUSCULAR VOLUME 84 fL (79-100); MONO % 7 % (0-9); NEUT % 77 % (31-73); PLATELET COUNT 148 x10^3/uL (140-400); RED BLOOD COUNT 3.89 x10^6/uL (3.50-5.40); WHITE BLOOD COUNT 6.7 x10^3/uL (4.0-11.0)
[2017-01-14 09:24] LABS: INR 1.1 (0.8-1.1); PROTHROMBIN TIME PATIENT 13.6 SEC (11.7-14.0)
--- NOTE | 2017-01-14 10:39 | RAD ---
Sono guided paracentesis 10/31/2016: Indication: Recurrent ascites Procedure: After informed consent was obtained, sonographic evaluation of the right lower quadrant was performed. The right lower quadrant was prepped and draped in sterile fashion. 5 Danish Yueh needle was used to access the peritoneal cavity under direct ultrasound guidance. 035 wire was advanced into the peritoneum over which an 6 Danish pigtail drainage catheter was advanced into the peritoneum.10 L of serous ascites was aspirated. The catheter was removed and manual pressure held to achieve hemostasis. Albumin administration was ordered per protocol. Sterile dressing was applied.. Impression: Successful ultrasound-guided paracentesis with removal of 9 L of ascites
== END | disposition home or self-care (01) ==
LOC: INTRAD 08:43
PROVIDERS: ATTEND General Practice
DX: R18.8 Other ascites (principal); E11.42 Type 2 diabetes mellitus with diabetic polyneuropathy; E78.00 Pure hypercholesterolemia, unspecified; J44.9 Chronic obstructive pulmonary disease, unspecified; I10 Essential (primary) hypertension; E66.9 Obesity, unspecified; Z68.44 Body mass index [BMI] 60.0-69.9, adult; K21.9 Gastro-esophageal reflux disease without esophagitis; E03.9 Hypothyroidism, unspecified; F41.9 Anxiety disorder, unspecified; F32.9 Major depressive disorder, single episode, unspecified; Z87.440 Personal history of urinary (tract) infections; Z86.69 Personal history of other diseases of the nervous system and sense organs; Z90.710 Acquired absence of both cervix and uterus; Z87.39 Personal history of other diseases of the musculoskeletal system and connective tissue; Z86.39 Personal history of other endocrine, nutritional and metabolic disease; Z88.1 Allergy status to other antibiotic agents; Z88.2 Allergy status to sulfonamides; Z88.8 Allergy status to other drugs, medicaments and biological substances
CPT/HCPCS: 36415; 49083; 85025; 85610; C1729; C1769; P9046

== ENCOUNTER 2017-02-05 08:38 | Outpatient (CLI) | payer MEDICAID, OTHER ==
[~2017-02-05] VITALS: Ht 162.6 cm; Wt 101.6 kg
[2017-02-05] VITALS (13 sets, daily range): BP systolic 102–128; BP diastolic 38–52
[~2017-02-05 08:38] MED LIST changes: -ALBUMIN HUMAN 25% 100 ML IV ONE; -ALBUMIN HUMAN 25% 200 ML IV ONE; -ALBUMIN HUMAN 25% 50 ML IV ONE; -LIDOCAINE 1% / SOD BICARB 8.4% 20 ML VIAL. IJ ONE
[2017-02-05 09:53] LABS: BASO # 0.1 x10^3/uL (0.0-0.2); BASO % 1 % (0-3); EOS % 2 % (0-3); HEMATOCRIT 30.7 % (36.0-47.0); LYMPH # 0.4 x10^3/uL (1.0-4.8); LYMPH % 7 % (24-48); MEAN CORPUSCULAR HEMOGLOBIN 27 pg (25-35); MEAN CORPUSCULAR HGB CONC 33 g/dL (31-37); MEAN CORPUSCULAR VOLUME 83 fL (79-100); MONO % 7 % (0-9); NEUT % 84 % (31-73); PLATELET COUNT 146 x10^3/uL (140-400); RED BLOOD COUNT 3.68 x10^6/uL (3.50-5.40); RED CELL DISTRIBUTION WIDTH 17.9 % (11.5-14.5); WHITE BLOOD COUNT 6.6 x10^3/uL (4.0-11.0)
[2017-02-05 10:00] LABS: INR 1.1 (0.8-1.1); PROTHROMBIN TIME PATIENT 13.7 SEC (11.7-14.0)
[2017-02-05] MEDS ORDERED: ALBUMIN HUMAN 25% 200 ML IV ONE (10:12)
[2017-02-05] MEDS ORDERED: ALBUMIN HUMAN 25% 100 ML IV ONE (10:15)
[2017-02-05] MEDS ORDERED: LIDOCAINE 2% 20 ML VIAL. IJ ONE (10:15)
--- NOTE | 2017-02-06 10:16 | RAD ---
Ultrasound-guided paracentesis 02/05/2017 11:18 AM Procedure: Informed consent was obtained. A timeout procedure was performed. Sonographic evaluation of the abdomen was performed demonstrating . The e right lower quadrant was prepped and draped in sterile fashion. 1% lidocaine without epinephrine was administered for local anesthesia. Real-time ultrasonographic guidance was used in passing a 5 Tongan Yueh catheter into the fluid collection. No 35 wire was advanced centrally, over which a 6 Tongan pigtail drain was advanced into the peritoneal space. 12 L of ascites was removed. Albumin replacement was ordered per protocol. The catheter was removed and pressure held to achieve hemostasis. A sterile dressing was applied. Impression: Successful ultrasound-guided paracentesis
== END 2017-02-05 12:15 | disposition home or self-care (01) ==
LOC: INTRAD 08:38
PROVIDERS: ATTEND Internal Medicine Gastroenterology
DX: R18.8 Other ascites (principal); E78.00 Pure hypercholesterolemia, unspecified; E11.42 Type 2 diabetes mellitus with diabetic polyneuropathy; I10 Essential (primary) hypertension; E66.9 Obesity, unspecified; Z68.38 Body mass index [BMI] 38.0-38.9, adult; E03.9 Hypothyroidism, unspecified; F41.9 Anxiety disorder, unspecified; F32.9 Major depressive disorder, single episode, unspecified; K21.9 Gastro-esophageal reflux disease without esophagitis; F17.200 Nicotine dependence, unspecified, uncomplicated; Z87.440 Personal history of urinary (tract) infections; Z86.69 Personal history of other diseases of the nervous system and sense organs; Z86.39 Personal history of other endocrine, nutritional and metabolic disease; Z88.1 Allergy status to other antibiotic agents; Z88.2 Allergy status to sulfonamides; Z88.8 Allergy status to other drugs, medicaments and biological substances
CPT/HCPCS: 36415; 49083; 85025; 85610; A4215; C1729; C1894; P9046

== ENCOUNTER → 2017-03-19 | Outpatient (CLI) | payer OTHER ==
[2017-03-19] VITALS (14 sets, daily range): BP systolic 109–133; BP diastolic 42–60
[~2017-03-19] VITALS: Ht 162.6 cm; Wt 102.1 kg
[~2017-03-19] MED LIST changes: +ALBUMIN HUMAN 25% 100 ML IV ONE; +LIDOCAINE 1% / SOD BICARB 8.4% 20 ML VIAL. IJ ONE
[2017-03-19 09:17] LABS: BASO # 0.1 x10^3/uL (0.0-0.2); BASO % 1 % (0-3); EOS % 3 % (0-3); HEMATOCRIT 31.2 % (36.0-47.0); HEMOGLOBIN 9.8 g/dL (12.0-15.5); LYMPH # 0.8 x10^3/uL (1.0-4.8); LYMPH % 12 % (24-48); MEAN CORPUSCULAR HEMOGLOBIN 26 pg (25-35); MEAN CORPUSCULAR HGB CONC 32 g/dL (31-37); MEAN CORPUSCULAR VOLUME 83 fL (79-100); MONO % 7 % (0-9); NEUT % 78 % (31-73); PLATELET COUNT 177 x10^3/uL (140-400); RED BLOOD COUNT 3.77 x10^6/uL (3.50-5.40); RED CELL DISTRIBUTION WIDTH 17.8 % (11.5-14.5)
[2017-03-19 09:19] LABS: INR 1.1 (0.8-1.1); PROTHROMBIN TIME PATIENT 13.5 SEC (11.7-14.0)
--- NOTE | 2017-03-19 10:28 | PDOC1 ---
History and Physical Date of Procedure Date of Admission 03/19/17 Procedure Procedure Paracentesis Indication Indication Ascites History of Present Illness Reason for Visit Same Past Medical History Past Medical History Cirrhosis, DM, hyperlipidemia, hypothyroid Past Surgical History Past Surgical History Hysterectomy, tonsillectomy Current Medications Current Medications Current Medications Lidocaine/Sodium Bicarbonate (Buffered Lidocaine 1%) 20 ml STK-MED ONCE IJ ; Start 03/19/17 at 07:54; Stop 03/19/17 at 07:55; Status DC Lidocaine/Sodium Bicarbonate (Buffered Lidocaine 1%) 8 ml 1X ONCE IJ ; Start 03/19/17 at 10:15; Stop 03/19/17 at 10:16; Status DC Active Scripts Active Reported Amoxicillin 500 Mg Capsule 1 Cap PO BID Albuterol Sulfate Conc Neb Soln (Albuterol Sulfate) 2.5 Mg/0.5 Ml Vial.neb 2.5 Mg NEB Q6HRS PRN Omeprazole 20 Mg Capsule.dr 20 Mg PO BID Lactulose 20 Gm/30 Ml Solution 20 Gm PO TID Guaifenesin 100 Mg/5 Ml Liquid 10 Mg PO Q4HRS PRN Furosemide 40 Mg Tablet 40 Mg PO BID Vitamin D3 (Cholecalciferol (Vitamin D3)) 1,000 Unit Tablet 2,000 Unit PO DAILY Lantus Solostar (Insulin Glargine,Hum.rec.anlog) 100 Unit/1 Ml Insuln.pen 43 Unit SQ HS Calcium + Vitamin D Tablet (Calcium Carbonate/Vitamin D3) 1 Each Tablet 1 Each PO Albuterol Sulfate Hfa Inhaler (Albuterol Sulfate) 8.5 Gm Hfa.aer.ad 8.5 Gm IH Novolog Flexpen (Insulin Aspart) 100 Unit/1 Ml Insuln.pen 10 Unit SQ TIDAC Synthroid (Levothyroxine Sodium) 25 Mcg Tablet 300 Mcg PO DAILY Flovent 110MCG Hfa (Fluticasone Propionate) 12 Gm Aer.w.adap 12 Gm IH Spironolactone 25 Mg Tablet 150 Mg PO DAILY Allergies Allergies: Coded Allergies: Sulfa (Sulfonamide Antibiotics) (Verified Allergy, Severe, Swelling, ) tongue swelling, rash cephalexin (Verified Allergy, Severe, Anaphylaxis, 11/08/16) doxycycline (Verified Allergy, Intermediate, 11/08/16) insulin detemir (Verified Allergy, Intermediate, Rash, 11/08/16) niacin (Verified Allergy, Intermediate, Rash, 11/08/16) edema povidone-iodine (Verified Allergy, Intermediate, It, 11/08/16) rifaximin (Verified Allergy, Intermediate, Itching, 11/08/16) erythromycin base (Verified Adverse Reaction, Intermediate, Diarrhea, 11/08) Physical Exam Vital Signs GENERAL: No apparent distress. Alert and oriented. HEENT: Head normocephalic, atraumatic. NECK: Supple LUNGS: Clear to auscultation. HEART: RRR, S1, S2 present, pulses intact ABDOMEN: Distended, nontender Vital Signs Date Time Temp Pulse Resp B/P (MAP) Pulse Ox O2 Delivery O2 Flow Rate FiO2 03/19/17 10:21 86 110/47 (68) 03/19/17 09:10 98.1 18 97 Room Air 98.1 Assessment Assessment Ascites Problems: Plan Plan Paracentesis LC MCCLURE MD Mar 19, 2017 10:28
--- NOTE | 2017-03-19 11:45 | RAD ---
Procedure: Ultrasound guided paracentesis. Indication: Ascites The procedure, risks, and complications, to include damage to hollow and solid abdominal viscera, bleeding, peritonitis and infection were explained to the patient and they understood same and wished to proceed. Consent form signed. The right lower quadrant was prepped and draped using maximal sterile technique and 1% Xylocaine used for local anesthesia. Ultrasound-guided paracentesis: Under ultrasound guidance, a large pocket of fluid was identified and an 18 gauge Yueh needle was inserted into the fluid and 10,400 cc of thin, straw-colored fluid was removed. The catheter was removed and pressure placed. Patient will receive albumin in the recovery area given the amount of fluid removed. An ultrasound image was saved and sent to PACS. The patient tolerated the procedure well and returned to the recovery area in stable condition. IMPRESSION: Ultrasound-guided paracentesis.
== END ==
LOC: INTRAD 08:39
PROVIDERS: ATTEND Internal Medicine Gastroenterology
DX: R18.8 Other ascites (principal); E11.9 Type 2 diabetes mellitus without complications; E78.5 Hyperlipidemia, unspecified; E03.9 Hypothyroidism, unspecified; K74.60 Unspecified cirrhosis of liver; Z90.710 Acquired absence of both cervix and uterus; Z98.890 Other specified postprocedural states; Z88.1 Allergy status to other antibiotic agents; Z88.8 Allergy status to other drugs, medicaments and biological substances
CPT/HCPCS: 36415; 49083; 85025; 85610; A4215; C1729; P9046

== ENCOUNTER 2017-04-03 08:46 | Outpatient (CLI) | payer OTHER ==
[2017-04-03] VITALS (10 sets, daily range): BP systolic 98–144; BP diastolic 56–76
[~2017-04-03] VITALS: Ht 162.6 cm; Wt 99.8 kg
[~2017-04-03 08:46] MED LIST changes: -ALBUMIN HUMAN 25% 100 ML IV ONE; -LIDOCAINE 1% / SOD BICARB 8.4% 20 ML VIAL. IJ ONE
[2017-04-03 09:23] LABS: BASO % 1 % (0-3); EOS % 2 % (0-3); HEMATOCRIT 30.1 % (36.0-47.0); HEMOGLOBIN 9.7 g/dL (12.0-15.5); LYMPH # 0.6 x10^3/uL (1.0-4.8); LYMPH % 10 % (24-48); MEAN CORPUSCULAR HEMOGLOBIN 27 pg (25-35); MEAN CORPUSCULAR HGB CONC 32 g/dL (31-37); MEAN CORPUSCULAR VOLUME 82 fL (79-100); MONO % 7 % (0-9); NEUT % 80 % (31-73); PLATELET COUNT 171 x10^3/uL (140-400); RED BLOOD COUNT 3.65 x10^6/uL (3.50-5.40); RED CELL DISTRIBUTION WIDTH 17.7 % (11.5-14.5); WHITE BLOOD COUNT 6.3 x10^3/uL (4.0-11.0)
[2017-04-03] MEDS ORDERED: TRAM50TA PO (09:23)
[2017-04-03 09:32] LABS: INR 1.1 (0.8-1.1); PROTHROMBIN TIME PATIENT 13.4 SEC (11.7-14.0)
[2017-04-03] MEDS ORDERED: LIDOCAINE 1% / SOD BICARB 8.4% 20 ML VIAL. IJ ONE ×2 (09:34→10:15)
[2017-04-03] MEDS ORDERED: ALBUMIN HUMAN 25% 100 ML IV ONE ×4 (10:45→11:54)
--- NOTE | 2017-04-03 11:21 | RAD ---
Ultrasound-guided paracentesis 04/03/2017 11:16 AM Procedure: Informed consent was obtained. A timeout procedure was performed. Sonographic evaluation of the abdomen was performed demonstrating large volume ascites. . All elements of maximal sterile barrier technique including the use of a cap, mask, sterile gown, sterile gloves, sterile drapes, appropriate hand hygiene, and 2% chlorhexidine for cutaneous antisepsis (or acceptable alternative antiseptic per current guidelines) were followed for this procedure. 1% lidocaine without epinephrine was administered for local anesthesia. Real-time ultrasonographic guidance was used in passing a 5 Welsh Yueh catheter into the fluid collection. 11.2 L of serous ascites was removed. The catheter was removed and pressure held to achieve hemostasis. A sterile dressing was applied. Impression: Successful ultrasound-guided paracentesis
== END 2017-04-03 12:20 | disposition home or self-care (01) ==
LOC: INTRAD 08:46
PROVIDERS: ATTEND Internal Medicine Gastroenterology
DX: R18.8 Other ascites (principal); E78.00 Pure hypercholesterolemia, unspecified; I10 Essential (primary) hypertension; J44.9 Chronic obstructive pulmonary disease, unspecified; J45.909 Unspecified asthma, uncomplicated; E66.9 Obesity, unspecified; Z68.37 Body mass index [BMI] 37.0-37.9, adult; Z90.710 Acquired absence of both cervix and uterus; M19.90 Unspecified osteoarthritis, unspecified site; E11.9 Type 2 diabetes mellitus without complications; E03.9 Hypothyroidism, unspecified; F41.9 Anxiety disorder, unspecified; F32.9 Major depressive disorder, single episode, unspecified; F17.210 Nicotine dependence, cigarettes, uncomplicated; K74.60 Unspecified cirrhosis of liver; Z88.1 Allergy status to other antibiotic agents; Z88.2 Allergy status to sulfonamides; Z88.0 Allergy status to penicillin; Z88.8 Allergy status to other drugs, medicaments and biological substances; Z87.892 Personal history of anaphylaxis; Z91.041 Radiographic dye allergy status
CPT/HCPCS: 36415; 49083; 85025; 85610; A4215; C1729; P9046

== ENCOUNTER 2017-04-19 08:36 | Outpatient (CLI) | payer OTHER ==
[2017-04-19 09:27] LABS: ADD MAN DIFF? NO; BASO # 0.1 x10^3/uL (0.0-0.2); BASO % 1 % (0-3); EOS % 3 % (0-3); HEMATOCRIT 30.1 % (36.0-47.0); HEMOGLOBIN 9.7 g/dL (12.0-15.5); LYMPH # 0.7 x10^3/uL (1.0-4.8); LYMPH % 12 % (24-48); MEAN CORPUSCULAR HEMOGLOBIN 27 pg (25-35); MEAN CORPUSCULAR HGB CONC 32 g/dL (31-37); MEAN CORPUSCULAR VOLUME 82 fL (79-100); MONO % 9 % (0-9); NEUT % 75 % (31-73); PLATELET COUNT 197 x10^3/uL (140-400); RED BLOOD COUNT 3.65 x10^6/uL (3.50-5.40); RED CELL DISTRIBUTION WIDTH 18.6 % (11.5-14.5); WHITE BLOOD COUNT 6.1 x10^3/uL (4.0-11.0)
[2017-04-19 09:37] LABS: INR 1.2 (0.8-1.1); PROTHROMBIN TIME PATIENT 14.1 SEC (11.7-14.0)
[2017-04-19] MEDS ORDERED: LIDOCAINE WITH 8.4% SOD BICARB 3 ML DISP.SYRIN. IJ (09:46)
[2017-04-19] MEDS: LIDOCAINE WITH 8.4% SOD BICARB 3 ML DISP.SYRIN. IJ (10:04)
[2017-04-19] MEDS ORDERED: ALBUMIN HUMAN 25% 200 ML IV (10:21)
[2017-04-19] MEDS: ALBUMIN HUMAN 25% 100 ML IV ×2 (10:30→11:04)
[2017-04-19] MEDS ORDERED: ALBUMIN HUMAN 25% 100 ML IV ×2 (11:14→11:15)
== END 2017-04-19 11:30 | disposition home or self-care (01) ==
LOC: INTRAD 08:36
DX: R18.8 Other ascites (principal); E11.40 Type 2 diabetes mellitus with diabetic neuropathy, unspecified; Z79.4 Long term (current) use of insulin; Z79.899 Other long term (current) drug therapy; Z98.890 Other specified postprocedural states
CPT/HCPCS: 36415; 49083; 85025; 85610; P9046

== ENCOUNTER → 2017-05-09 | Outpatient (CLI) | payer OTHER ==
[~2017-05-09] MED LIST changes: -ALBU2.5V14 NEB; -ALBU8.5H6 IH; +ALBUMIN HUMAN 25% 100 ML IV; -AMOX500C PO; -ATOR10TA60 PO; -CALC-98 PO; -CHOL10003 PO; -CYCL5TAB PO; -FLUT12AE IH; -FLUT16SP2 NS; -FURO40TA4 PO; -GUAI100L12 PO; -INSU100I13 SQ; -INSU100I17 SQ; -LACT20SO PO; -LEVO25TA55 PO; +LIDOCAINE WITH 8.4% SOD BICARB 3 ML DISP.SYRIN. IJ; -LISI2.5T PO; -LORA1TAB PO; -OMEP20CA9 PO; -OXYC5TAB95 PO; -PITA2TAB2 PO; -RIFA550T4 PO; -SPIR25TA3 PO; -TRAM50TA PO
[2017-05-09 07:42] LABS: ADD MAN DIFF? NO
[2017-05-09 07:50] LABS: BASO # 0.1 x10^3/uL (0.0-0.2); BASO % 1 % (0-3); EOS # 0.2 x10^3/uL (0.0-0.7); EOS % 3 % (0-3); HEMATOCRIT 31.5 % (36.0-47.0); HEMOGLOBIN 10.2 g/dL (12.0-15.5); LYMPH # 0.7 x10^3/uL (1.0-4.8); LYMPH % 10 % (24-48); MEAN CORPUSCULAR HEMOGLOBIN 27 pg (25-35); MEAN CORPUSCULAR HGB CONC 32 g/dL (31-37); MEAN CORPUSCULAR VOLUME 83 fL (79-100); MONO # 0.5 x10^3/uL (0.0-1.1); MONO % 7 % (0-9); NEUT # 5.4 x10^3uL (1.8-7.7); NEUT % 78 % (31-73); PLATELET COUNT 171 x10^3/uL (140-400); RED BLOOD COUNT 3.81 x10^6/uL (3.50-5.40); RED CELL DISTRIBUTION WIDTH 19.6 % (11.5-14.5)
[2017-05-09 08:05] LABS: INR 1.1 (0.8-1.1); PROTHROMBIN TIME PATIENT 13.4 SEC (11.7-14.0)
[2017-05-09] MEDS: ALBUMIN HUMAN 25% 100 ML IV ×3 (09:26→09:58)
[2017-05-09] MEDS: LIDOCAINE WITH 8.4% SOD BICARB 3 ML DISP.SYRIN. IJ (09:27)
== END | disposition home or self-care (01) ==
LOC: INTRAD 07:14
DX: R18.8 Other ascites (principal); E78.00 Pure hypercholesterolemia, unspecified; I10 Essential (primary) hypertension; E66.9 Obesity, unspecified; Z68.36 Body mass index [BMI] 36.0-36.9, adult; E11.9 Type 2 diabetes mellitus without complications; E03.9 Hypothyroidism, unspecified; F41.9 Anxiety disorder, unspecified; F32.9 Major depressive disorder, single episode, unspecified; F17.200 Nicotine dependence, unspecified, uncomplicated; Z90.710 Acquired absence of both cervix and uterus; Z98.890 Other specified postprocedural states; Z72.0 Tobacco use; Z88.6 Allergy status to analgesic agent; Z88.1 Allergy status to other antibiotic agents; Z88.2 Allergy status to sulfonamides
CPT/HCPCS: 36415; 49083; 85025; 85610; A4215; C1729; P9046

== ENCOUNTER → 2017-05-24 | Outpatient (CLI) | payer OTHER ==
[~2017-05-24] MED LIST changes: +ALBUMIN HUMAN 25% 200 ML IV; +LIDOCAINE WITH 8.4% SOD BICARB 3 ML DISP.SYRIN.; -LIDOCAINE WITH 8.4% SOD BICARB 3 ML DISP.SYRIN. IJ
[2017-05-24 07:53] LABS: ADD MAN DIFF? NO
[2017-05-24 07:55] LABS: BASO # 0.1 x10^3/uL (0.0-0.2); BASO % 1 % (0-3); EOS # 0.3 x10^3/uL (0.0-0.7); EOS % 3 % (0-3); HEMATOCRIT 32.7 % (36.0-47.0); HEMOGLOBIN 10.7 g/dL (12.0-15.5); LYMPH # 0.8 x10^3/uL (1.0-4.8); LYMPH % 10 % (24-48); MEAN CORPUSCULAR HEMOGLOBIN 27 pg (25-35); MEAN CORPUSCULAR HGB CONC 33 g/dL (31-37); MEAN CORPUSCULAR VOLUME 83 fL (79-100); MONO # 0.5 x10^3/uL (0.0-1.1); MONO % 7 % (0-9); NEUT # 6.1 x10^3uL (1.8-7.7); NEUT % 79 % (31-73); PLATELET COUNT 194 x10^3/uL (140-400); RED BLOOD COUNT 3.95 x10^6/uL (3.50-5.40); RED CELL DISTRIBUTION WIDTH 19.1 % (11.5-14.5); WHITE BLOOD COUNT 7.8 x10^3/uL (4.0-11.0)
[2017-05-24 08:05] LABS: INR 1.2 (0.8-1.1); PROTHROMBIN TIME PATIENT 14.3 SEC (11.7-14.0)
[2017-05-24] MEDS: LIDOCAINE WITH 8.4% SOD BICARB 3 ML DISP.SYRIN. INJ ×2 (08:53)
[2017-05-24] MEDS: ALBUMIN HUMAN 25% 100 ML IV ×6 (09:02→10:00)
== END | disposition home or self-care (01) ==
LOC: INTRAD 07:23
DX: R18.8 Other ascites (principal); E78.00 Pure hypercholesterolemia, unspecified; I10 Essential (primary) hypertension; E03.9 Hypothyroidism, unspecified; F41.9 Anxiety disorder, unspecified; F32.9 Major depressive disorder, single episode, unspecified; F17.200 Nicotine dependence, unspecified, uncomplicated; Z87.39 Personal history of other diseases of the musculoskeletal system and connective tissue; Z86.69 Personal history of other diseases of the nervous system and sense organs; Z72.0 Tobacco use; Z88.6 Allergy status to analgesic agent; Z88.1 Allergy status to other antibiotic agents; Z88.2 Allergy status to sulfonamides; Z88.8 Allergy status to other drugs, medicaments and biological substances
CPT/HCPCS: 36415; 49083; 85025; 85610; C1729; C1769; P9046

== ENCOUNTER 2017-06-06 08:45 | Outpatient (CLI) | payer OTHER ==
[2017-06-06] MEDS: ALBUMIN HUMAN 25% 100 ML IV ×6 (10:10→11:03)
[2017-06-06] MEDS ORDERED: ALBUMIN HUMAN 25% 200 ML IV ×2 (10:11)
[2017-06-06] MEDS ORDERED: ALBUMIN HUMAN 25% 100 ML IV ×2 (11:00)
== END 2017-06-06 12:21 | disposition home or self-care (01) ==
LOC: INTRAD 08:45
DX: R18.8 Other ascites (principal); K21.9 Gastro-esophageal reflux disease without esophagitis; E11.40 Type 2 diabetes mellitus with diabetic neuropathy, unspecified; J44.9 Chronic obstructive pulmonary disease, unspecified; E78.00 Pure hypercholesterolemia, unspecified; E03.9 Hypothyroidism, unspecified; F41.9 Anxiety disorder, unspecified; F32.9 Major depressive disorder, single episode, unspecified; Z88.6 Allergy status to analgesic agent; Z90.710 Acquired absence of both cervix and uterus; Z98.890 Other specified postprocedural states; Z88.1 Allergy status to other antibiotic agents; Z88.2 Allergy status to sulfonamides; Z88.8 Allergy status to other drugs, medicaments and biological substances
CPT/HCPCS: 49083; C1729; C1769; P9046

== ENCOUNTER 2017-06-20 08:44 | Outpatient (CLI) | payer OTHER ==
[2017-06-20 09:09] LABS: ADD MAN DIFF? NO
[2017-06-20 09:12] LABS: BASO # 0.1 x10^3/uL (0.0-0.2); BASO % 1 % (0-3); EOS # 0.3 x10^3/uL (0.0-0.7); EOS % 4 % (0-3); HEMATOCRIT 31.7 % (36.0-47.0); HEMOGLOBIN 10.2 g/dL (12.0-15.5); LYMPH # 0.8 x10^3/uL (1.0-4.8); LYMPH % 11 % (24-48); MEAN CORPUSCULAR HEMOGLOBIN 27 pg (25-35); MEAN CORPUSCULAR HGB CONC 32 g/dL (31-37); MEAN CORPUSCULAR VOLUME 83 fL (79-100); MONO # 0.4 x10^3/uL (0.0-1.1); MONO % 6 % (0-9); NEUT # 5.2 x10^3uL (1.8-7.7); NEUT % 78 % (31-73); PLATELET COUNT 194 x10^3/uL (140-400); RED BLOOD COUNT 3.81 x10^6/uL (3.50-5.40); RED CELL DISTRIBUTION WIDTH 18.6 % (11.5-14.5); WHITE BLOOD COUNT 6.8 x10^3/uL (4.0-11.0)
[2017-06-20] MEDS ORDERED: LIDOCAINE WITH 8.4% SOD BICARB 3 ML DISP.SYRIN. (09:24)
[2017-06-20 09:43] LABS: INR 1.1 (0.8-1.1); PROTHROMBIN TIME PATIENT 13.6 SEC (11.7-14.0)
[2017-06-20] MEDS ORDERED: ALBUMIN HUMAN 25% 200 ML IV (10:10)
[2017-06-20] MEDS: ALBUMIN HUMAN 25% 100 ML IV ×2 (11:21→11:28)
[2017-06-20] MEDS: LIDOCAINE WITH 8.4% SOD BICARB 3 ML DISP.SYRIN. IJ (11:22)
[2017-06-20] MEDS ORDERED: ALBUMIN HUMAN 25% 100 ML IV (11:59)
== END 2017-06-20 13:00 | disposition home or self-care (01) ==
LOC: INTRAD 08:44
DX: R18.8 Other ascites (principal); E11.21 Type 2 diabetes mellitus with diabetic nephropathy; E78.00 Pure hypercholesterolemia, unspecified; I10 Essential (primary) hypertension; J44.9 Chronic obstructive pulmonary disease, unspecified; E66.9 Obesity, unspecified; K21.9 Gastro-esophageal reflux disease without esophagitis; M19.90 Unspecified osteoarthritis, unspecified site; E03.9 Hypothyroidism, unspecified; F32.9 Major depressive disorder, single episode, unspecified; F41.9 Anxiety disorder, unspecified; F17.210 Nicotine dependence, cigarettes, uncomplicated; Z88.2 Allergy status to sulfonamides; Z98.890 Other specified postprocedural states; Z86.010 Personal history of colon polyps; Z90.710 Acquired absence of both cervix and uterus; Z88.1 Allergy status to other antibiotic agents; Z88.6 Allergy status to analgesic agent; Z87.440 Personal history of urinary (tract) infections; Z88.3 Allergy status to other anti-infective agents; Z88.8 Allergy status to other drugs, medicaments and biological substances
CPT/HCPCS: 36415; 49083; 85025; 85610; A4215; C1729; P9046

== ENCOUNTER 2017-07-05 08:45 | Outpatient (CLI) | payer OTHER ==
[2017-07-05] MEDS ORDERED: LIDOCAINE WITH 8.4% SOD BICARB 3 ML DISP.SYRIN. (09:50)
[2017-07-05] MEDS ORDERED: ALBUMIN HUMAN 25% 100 ML IV ×3 (10:41→11:23)
[2017-07-05] MEDS: LIDOCAINE WITH 8.4% SOD BICARB 3 ML DISP.SYRIN. INJ (11:09)
[2017-07-05] MEDS: ALBUMIN HUMAN 25% 100 ML IV ×3 (11:10→11:38)
== END 2017-07-05 12:45 | disposition home or self-care (01) ==
LOC: INTRAD 08:45
DX: R18.8 Other ascites (principal); E13.42 Other specified diabetes mellitus with diabetic polyneuropathy; E78.00 Pure hypercholesterolemia, unspecified; I10 Essential (primary) hypertension; J44.9 Chronic obstructive pulmonary disease, unspecified; E66.9 Obesity, unspecified; K21.9 Gastro-esophageal reflux disease without esophagitis; M19.90 Unspecified osteoarthritis, unspecified site; E03.8 Other specified hypothyroidism; K76.89 Other specified diseases of liver; F32.9 Major depressive disorder, single episode, unspecified; F41.9 Anxiety disorder, unspecified; K74.69 Other cirrhosis of liver; Z87.891 Personal history of nicotine dependence; Z90.710 Acquired absence of both cervix and uterus; Z98.890 Other specified postprocedural states; Z86.010 Personal history of colon polyps
CPT/HCPCS: 49083; A4215; C1729; C1894; P9046

== ENCOUNTER 2017-07-17 08:46 | Outpatient (CLI) | payer OTHER ==
[2017-07-17] MEDS ORDERED: LIDOCAINE WITH 8.4% SOD BICARB 3 ML DISP.SYRIN. (10:16)
[2017-07-17] MEDS: ALBUMIN HUMAN 25% 100 ML IV (10:30)
[2017-07-17] MEDS: LIDOCAINE WITH 8.4% SOD BICARB 3 ML DISP.SYRIN. IJ (10:30)
[2017-07-17] MEDS ORDERED: ALBUMIN HUMAN 25% 100 ML IV ×2 (10:41→11:23)
== END 2017-07-17 12:40 | disposition home or self-care (01) ==
LOC: INTRAD 08:46
DX: R18.8 Other ascites (principal); Z88.1 Allergy status to other antibiotic agents; Z88.2 Allergy status to sulfonamides; Z88.5 Allergy status to narcotic agent; Z91.041 Radiographic dye allergy status; Z88.8 Allergy status to other drugs, medicaments and biological substances; E11.42 Type 2 diabetes mellitus with diabetic polyneuropathy; E78.00 Pure hypercholesterolemia, unspecified; J44.9 Chronic obstructive pulmonary disease, unspecified; E66.01 Morbid (severe) obesity due to excess calories; Z68.41 Body mass index [BMI] 40.0-44.9, adult; K21.9 Gastro-esophageal reflux disease without esophagitis; Z90.710 Acquired absence of both cervix and uterus; N39.0 Urinary tract infection, site not specified; M19.90 Unspecified osteoarthritis, unspecified site; E03.9 Hypothyroidism, unspecified; K76.9 Liver disease, unspecified; F41.9 Anxiety disorder, unspecified; F32.9 Major depressive disorder, single episode, unspecified; F17.210 Nicotine dependence, cigarettes, uncomplicated; I10 Essential (primary) hypertension
CPT/HCPCS: 49083; A4215; C1729; P9046

== ENCOUNTER 2017-07-31 08:35 | Outpatient (CLI) | payer OTHER ==
[2017-07-31 09:09] LABS: ADD MAN DIFF? NO
[2017-07-31 09:13] LABS: BASO # 0.1 x10^3/uL (0.0-0.2); BASO % 1 % (0-3); EOS # 0.3 x10^3/uL (0.0-0.7); EOS % 4 % (0-3); HEMATOCRIT 28.8 % (36.0-47.0); HEMOGLOBIN 9.2 g/dL (12.0-15.5); LYMPH # 0.7 x10^3/uL (1.0-4.8); LYMPH % 10 % (24-48); MEAN CORPUSCULAR HEMOGLOBIN 27 pg (25-35); MEAN CORPUSCULAR HGB CONC 32 g/dL (31-37); MEAN CORPUSCULAR VOLUME 84 fL (79-100); MONO # 0.5 x10^3/uL (0.0-1.1); MONO % 7 % (0-9); NEUT # 5.5 x10^3uL (1.8-7.7); NEUT % 78 % (31-73); PLATELET COUNT 174 x10^3/uL (140-400); RED BLOOD COUNT 3.42 x10^6/uL (3.50-5.40); RED CELL DISTRIBUTION WIDTH 18.6 % (11.5-14.5); WHITE BLOOD COUNT 7.1 x10^3/uL (4.0-11.0)
[2017-07-31 09:22] LABS: INR 1.2 (0.8-1.1); PROTHROMBIN TIME PATIENT 14.4 SEC (11.7-14.0)
[2017-07-31] MEDS ORDERED: LIDOCAINE WITH 8.4% SOD BICARB 3 ML DISP.SYRIN. (09:31)
[2017-07-31] MEDS ORDERED: ALBUMIN HUMAN 25% 200 ML IV (10:15)
[2017-07-31] MEDS ORDERED: ALBUMIN HUMAN 25% 100 ML IV (10:53)
[2017-07-31] MEDS: LIDOCAINE WITH 8.4% SOD BICARB 3 ML DISP.SYRIN. INJ (11:04)
[2017-07-31] MEDS: ALBUMIN HUMAN 25% 100 ML IV ×3 (11:04→11:05)
== END 2017-07-31 12:20 | disposition home or self-care (01) ==
LOC: INTRAD 08:35
DX: R18.8 Other ascites (principal)
CPT/HCPCS: 36415; 49083; 85025; 85610; A4215; C1729; P9046

== ENCOUNTER → 2017-08-14 | Outpatient (CLI) | payer OTHER ==
[~2017-08-14] MED LIST changes: -ALBUMIN HUMAN 25% 100 ML IV; -ALBUMIN HUMAN 25% 200 ML IV
[2017-08-14] MEDS: LIDOCAINE WITH 8.4% SOD BICARB 3 ML DISP.SYRIN. INJ (10:41)
[2017-08-14] MEDS: ALBUMIN HUMAN 25% 100 ML IV ×3 (10:42)
== END | disposition home or self-care (01) ==
LOC: INTRAD 08:52
DX: R18.8 Other ascites (principal)
CPT/HCPCS: 49083; A4215; C1729; P9046

== ENCOUNTER 2017-09-02 08:47 | Outpatient (CLI) | payer OTHER ==
[2017-09-02 09:37] LABS: ADD MAN DIFF? NO
[2017-09-02 09:44] LABS: BASO # 0.1 x10^3/uL (0.0-0.2); BASO % 1 % (0-3); EOS # 0.2 x10^3/uL (0.0-0.7); EOS % 3 % (0-3); HEMATOCRIT 26.2 % (36.0-47.0); HEMOGLOBIN 8.7 g/dL (12.0-15.5); LYMPH # 0.7 x10^3/uL (1.0-4.8); LYMPH % 10 % (24-48); MEAN CORPUSCULAR HEMOGLOBIN 27 pg (25-35); MEAN CORPUSCULAR HGB CONC 33 g/dL (31-37); MEAN CORPUSCULAR VOLUME 81 fL (79-100); MONO # 0.6 x10^3/uL (0.0-1.1); MONO % 8 % (0-9); NEUT # 5.5 x10^3uL (1.8-7.7); NEUT % 79 % (31-73); PLATELET COUNT 188 x10^3/uL (140-400); RED BLOOD COUNT 3.22 x10^6/uL (3.50-5.40); RED CELL DISTRIBUTION WIDTH 18.3 % (11.5-14.5)
[2017-09-02 10:05] LABS: INR 1.2 (0.8-1.1); PROTHROMBIN TIME PATIENT 14.3 SEC (11.7-14.0)
[2017-09-02] MEDS ORDERED: LIDOCAINE WITH 8.4% SOD BICARB 3 ML DISP.SYRIN. (10:45)
[2017-09-02] MEDS ORDERED: ALBUMIN HUMAN 25% 200 ML IV (11:25)
[2017-09-02] MEDS ORDERED: ALBUMIN HUMAN 25% 100 ML IV (11:49)
[2017-09-02] MEDS: ALBUMIN HUMAN 25% 100 ML IV ×3 (12:06→12:07)
[2017-09-02] MEDS: LIDOCAINE WITH 8.4% SOD BICARB 3 ML DISP.SYRIN. INJ (12:07)
== END 2017-09-02 13:25 | disposition home or self-care (01) ==
LOC: INTRAD 08:47
DX: K74.60 Unspecified cirrhosis of liver (principal); R18.8 Other ascites; E78.00 Pure hypercholesterolemia, unspecified; I10 Essential (primary) hypertension; E66.9 Obesity, unspecified; Z68.37 Body mass index [BMI] 37.0-37.9, adult; K21.9 Gastro-esophageal reflux disease without esophagitis; J44.9 Chronic obstructive pulmonary disease, unspecified; E03.9 Hypothyroidism, unspecified; F41.9 Anxiety disorder, unspecified; F32.9 Major depressive disorder, single episode, unspecified; E11.9 Type 2 diabetes mellitus without complications; Z86.010 Personal history of colon polyps; Z90.710 Acquired absence of both cervix and uterus; Z87.440 Personal history of urinary (tract) infections; M19.90 Unspecified osteoarthritis, unspecified site; F17.200 Nicotine dependence, unspecified, uncomplicated; Z98.890 Other specified postprocedural states; G62.9 Polyneuropathy, unspecified; Z88.2 Allergy status to sulfonamides; Z88.5 Allergy status to narcotic agent; Z88.1 Allergy status to other antibiotic agents; Z88.8 Allergy status to other drugs, medicaments and biological substances
CPT/HCPCS: 36415; 49083; 85025; 85610; A4215; C1729; C1894; P9046

== ENCOUNTER → 2017-09-02 | Outpatient (CLI) | payer OTHER | END | disposition home or self-care (01) | LOC: US 08:57 | DX: K74.60 Unspecified cirrhosis of liver (principal); K75.81 Nonalcoholic steatohepatitis (NASH); K80.20 Calculus of gallbladder without cholecystitis without obstruction; I81 Portal vein thrombosis; R16.1 Splenomegaly, not elsewhere classified; R18.8 Other ascites | CPT/HCPCS: 76700; 93975 ==

== ENCOUNTER 2017-09-13 08:29 | Outpatient (CLI) | payer OTHER ==
[2017-09-13] MEDS ORDERED: LIDOCAINE WITH 8.4% SOD BICARB 3 ML DISP.SYRIN. (08:45)
[2017-09-13] MEDS ORDERED: ALBUMIN HUMAN 25% 300 ML IV (09:06)
[2017-09-13] MEDS: ALBUMIN HUMAN 25% 100 ML IV ×3 (09:44→10:34)
[2017-09-13] MEDS: LIDOCAINE WITH 8.4% SOD BICARB 3 ML DISP.SYRIN. IJ (09:45)
== END 2017-09-13 11:28 | disposition home or self-care (01) ==
LOC: INTRAD 08:29
DX: R18.8 Other ascites (principal)
CPT/HCPCS: 49083; A4215; C1729; C1894; P9046

== ENCOUNTER → 2017-10-02 | Outpatient (CLI) | payer OTHER ==
[~2017-10-02] MED LIST changes: +LIDOCAINE WITH 8.4% SOD BICARB 3 ML DISP.SYRIN. INJ
[2017-10-02 09:22] LABS: ADD MAN DIFF? NO
[2017-10-02 09:24] LABS: BASO # 0.1 x10^3/uL (0.0-0.2); BASO % 1 % (0-3); EOS # 0.2 x10^3/uL (0.0-0.7); EOS % 2 % (0-3); HEMATOCRIT 25.6 % (36.0-47.0); HEMOGLOBIN 8.3 g/dL (12.0-15.5); LYMPH # 0.7 x10^3/uL (1.0-4.8); LYMPH % 9 % (24-48); MEAN CORPUSCULAR HEMOGLOBIN 26 pg (25-35); MEAN CORPUSCULAR HGB CONC 32 g/dL (31-37); MEAN CORPUSCULAR VOLUME 81 fL (79-100); MONO # 0.5 x10^3/uL (0.0-1.1); MONO % 7 % (0-9); NEUT % 80 % (31-73); PLATELET COUNT 195 x10^3/uL (140-400); RED BLOOD COUNT 3.18 x10^6/uL (3.50-5.40); RED CELL DISTRIBUTION WIDTH 18.8 % (11.5-14.5); WHITE BLOOD COUNT 7.4 x10^3/uL (4.0-11.0)
[2017-10-02 09:35] LABS: INR 1.1 (0.8-1.1); PROTHROMBIN TIME PATIENT 14.1 SEC (11.7-14.0)
[2017-10-02 09:43] LABS: % SAT IRON 9 % (15-34); IRON,SERUM 27 ug/dL (50-170)
[2017-10-02 09:53] LABS: THYROID STIM HORMONE (TSH) 1.138 uIU/mL (0.358-3.74)
[2017-10-02 09:56] LABS: ALBUMIN 2.8 g/dL (3.4-5.0); ALBUMIN/GLOBULIN RATIO 0.5 (1.0-1.7); ALK PHOS 215 U/L (46-116); ALT (SGPT) 31 U/L (14-59); ANION GAP 13 (6-14); AST (SGOT) 35 U/L (15-37); BLOOD UREA NITROGEN 31 mg/dL (7-20); BUN/CREATININE RATIO 21 (6-20); CALCIUM 8.7 mg/dL (8.5-10.1); CARBON DIOXIDE 21 mmol/L (21-32); CHLORIDE 107 mmol/L (98-107); CREATININE 1.5 mg/dL (0.6-1.0); FERRITIN 22 ng/mL (8-252); GFR 35.3; GLUCOSE 168 mg/dL (70-99); POTASSIUM 3.8 mmol/L (3.5-5.1); SODIUM 141 mmol/L (136-145); TOTAL BILIRUBIN 0.6 mg/dL (0.2-1.0)
[2017-10-02 10:33] LABS: POC GLUCOSE 194 mg/dL (70-99)
[2017-10-02] MEDS: ALBUMIN HUMAN 25% 100 ML IV ×2 (12:30→12:31)
[2017-10-02 21:16] LABS: T3 TOTAL 88 ng/dL (71-180)
[2017-10-02 21:16] LABS: THYROXINE 9.2 ug/dL (4.5-12.0)
[2017-10-03 02:19] LABS: HEMOGLOBIN A1C 8.2 % (4.8-5.6)
== END | disposition home or self-care (01) ==
LOC: INTRAD 08:52
DX: K74.60 Unspecified cirrhosis of liver (principal); Z98.890 Other specified postprocedural states; E11.42 Type 2 diabetes mellitus with diabetic polyneuropathy; E78.00 Pure hypercholesterolemia, unspecified; I10 Essential (primary) hypertension; J44.9 Chronic obstructive pulmonary disease, unspecified; Z86.010 Personal history of colon polyps; E66.9 Obesity, unspecified; Z68.34 Body mass index [BMI] 34.0-34.9, adult; K21.9 Gastro-esophageal reflux disease without esophagitis; Z90.710 Acquired absence of both cervix and uterus; Z87.440 Personal history of urinary (tract) infections; M19.90 Unspecified osteoarthritis, unspecified site; E03.9 Hypothyroidism, unspecified; F41.9 Anxiety disorder, unspecified; F32.9 Major depressive disorder, single episode, unspecified; F17.200 Nicotine dependence, unspecified, uncomplicated; Z79.84 Long term (current) use of oral hypoglycemic drugs; Z88.1 Allergy status to other antibiotic agents; Z88.5 Allergy status to narcotic agent; Z88.8 Allergy status to other drugs, medicaments and biological substances
CPT/HCPCS: 36415; 49083; 80053; 82728; 82962; 83036; 83540; 83550; 84436; 84443; 84480; 85025; 85610; A4215; C1729; C1894; P9046

== ENCOUNTER 2017-10-15 10:53 | Outpatient (CLI) | payer OTHER ==
[2017-10-15] MEDS ORDERED: LIDOCAINE WITH 8.4% SOD BICARB 3 ML DISP.SYRIN. (11:09)
[2017-10-15] MEDS ORDERED: ALBUMIN HUMAN 25% 200 ML IV (11:42)
[2017-10-15] MEDS: LIDOCAINE WITH 8.4% SOD BICARB 3 ML DISP.SYRIN. INJ (12:12)
[2017-10-15] MEDS: ALBUMIN HUMAN 25% 100 ML IV ×2 (12:13→12:14)
== END 2017-10-15 13:25 | disposition home or self-care (01) ==
LOC: INTRAD 10:53
DX: R18.8 Other ascites (principal); E11.42 Type 2 diabetes mellitus with diabetic polyneuropathy; E78.00 Pure hypercholesterolemia, unspecified; E66.9 Obesity, unspecified; K21.9 Gastro-esophageal reflux disease without esophagitis; F32.9 Major depressive disorder, single episode, unspecified; F41.9 Anxiety disorder, unspecified; F17.210 Nicotine dependence, cigarettes, uncomplicated; I10 Essential (primary) hypertension; J44.9 Chronic obstructive pulmonary disease, unspecified; Z98.890 Other specified postprocedural states; Z86.010 Personal history of colon polyps; Z90.710 Acquired absence of both cervix and uterus; Z87.440 Personal history of urinary (tract) infections; Z87.39 Personal history of other diseases of the musculoskeletal system and connective tissue
CPT/HCPCS: 49083; A4215; C1729; P9046

== ENCOUNTER 2017-10-30 10:23 | Outpatient (CLI) | payer OTHER ==
[2017-10-30] MEDS ORDERED: LIDOCAINE WITH 8.4% SOD BICARB 3 ML DISP.SYRIN. (10:40)
[2017-10-30] MEDS ORDERED: ALBUMIN HUMAN 25% 200 ML IV (11:14)
[2017-10-30] MEDS: ALBUMIN HUMAN 25% 100 ML IV (12:30)
[2017-10-30] MEDS: LIDOCAINE WITH 8.4% SOD BICARB 3 ML DISP.SYRIN. IJ (12:30)
== END 2017-10-30 14:00 | disposition home or self-care (01) ==
LOC: INTRAD 10:23
DX: R18.8 Other ascites (principal); I10 Essential (primary) hypertension; J44.9 Chronic obstructive pulmonary disease, unspecified; E78.00 Pure hypercholesterolemia, unspecified; E11.42 Type 2 diabetes mellitus with diabetic polyneuropathy; Z86.010 Personal history of colon polyps; E66.9 Obesity, unspecified; Z68.34 Body mass index [BMI] 34.0-34.9, adult; K21.9 Gastro-esophageal reflux disease without esophagitis; Z90.710 Acquired absence of both cervix and uterus; Z87.440 Personal history of urinary (tract) infections; M19.90 Unspecified osteoarthritis, unspecified site; E03.9 Hypothyroidism, unspecified; F41.9 Anxiety disorder, unspecified; F32.9 Major depressive disorder, single episode, unspecified; Z72.89 Other problems related to lifestyle; F17.200 Nicotine dependence, unspecified, uncomplicated; D64.9 Anemia, unspecified; Z88.1 Allergy status to other antibiotic agents; Z88.5 Allergy status to narcotic agent; Z88.8 Allergy status to other drugs, medicaments and biological substances; Z98.42 Cataract extraction status, left eye; Z98.41 Cataract extraction status, right eye; Z96.1 Presence of intraocular lens; Z98.890 Other specified postprocedural states; Z79.84 Long term (current) use of oral hypoglycemic drugs
CPT/HCPCS: 49083; A4215; C1729; C1894; P9046

== ENCOUNTER 2017-11-11 07:38 | Outpatient (CLI) | payer OTHER ==
[2017-11-11] MEDS ORDERED: LIDOCAINE WITH 8.4% SOD BICARB 3 ML DISP.SYRIN. (08:17)
[2017-11-11 08:23] LABS: ADD MAN DIFF? NO
[2017-11-11 08:25] LABS: BASO # 0.1 x10^3/uL (0.0-0.2); BASO % 1 % (0-3); EOS # 0.2 x10^3/uL (0.0-0.7); EOS % 2 % (0-3); HEMATOCRIT 24.5 % (36.0-47.0); HEMOGLOBIN 7.8 g/dL (12.0-15.5); LYMPH # 0.6 x10^3/uL (1.0-4.8); LYMPH % 7 % (24-48); MEAN CORPUSCULAR HEMOGLOBIN 25 pg (25-35); MEAN CORPUSCULAR HGB CONC 32 g/dL (31-37); MEAN CORPUSCULAR VOLUME 80 fL (79-100); MONO # 0.7 x10^3/uL (0.0-1.1); MONO % 7 % (0-9); NEUT # 7.7 x10^3uL (1.8-7.7); NEUT % 84 % (31-73); PLATELET COUNT 253 x10^3/uL (140-400); RED BLOOD COUNT 3.07 x10^6/uL (3.50-5.40); RED CELL DISTRIBUTION WIDTH 19.3 % (11.5-14.5); WHITE BLOOD COUNT 9.2 x10^3/uL (4.0-11.0)
[2017-11-11 08:40] LABS: INR 1.1 (0.8-1.1); PARTIAL THROMBOPLASTIN TIME 30 SEC (24-38)
[2017-11-11] MEDS ORDERED: ALBUMIN HUMAN 25% 200 ML IV (08:49)
[2017-11-11] MEDS: ALBUMIN HUMAN 25% 100 ML IV (09:15)
[2017-11-11] MEDS: LIDOCAINE WITH 8.4% SOD BICARB 3 ML DISP.SYRIN. IJ (09:15)
== END 2017-11-11 11:30 | disposition home or self-care (01) ==
LOC: INTRAD 07:38
DX: K74.60 Unspecified cirrhosis of liver (principal); Z98.42 Cataract extraction status, left eye; Z98.41 Cataract extraction status, right eye; Z96.1 Presence of intraocular lens; Z88.1 Allergy status to other antibiotic agents; Z88.5 Allergy status to narcotic agent; Z88.6 Allergy status to analgesic agent; Z88.2 Allergy status to sulfonamides; Z88.8 Allergy status to other drugs, medicaments and biological substances; Z98.890 Other specified postprocedural states; E11.42 Type 2 diabetes mellitus with diabetic polyneuropathy; E78.00 Pure hypercholesterolemia, unspecified; I10 Essential (primary) hypertension; J44.9 Chronic obstructive pulmonary disease, unspecified; Z86.010 Personal history of colon polyps; E66.9 Obesity, unspecified; Z68.33 Body mass index [BMI] 33.0-33.9, adult; K21.9 Gastro-esophageal reflux disease without esophagitis; Z90.710 Acquired absence of both cervix and uterus; Z87.440 Personal history of urinary (tract) infections; M19.90 Unspecified osteoarthritis, unspecified site; F32.9 Major depressive disorder, single episode, unspecified; F41.9 Anxiety disorder, unspecified; E03.9 Hypothyroidism, unspecified; Z79.84 Long term (current) use of oral hypoglycemic drugs; Z72.89 Other problems related to lifestyle; F17.210 Nicotine dependence, cigarettes, uncomplicated
CPT/HCPCS: 36415; 49083; 85025; 85610; 85730; P9046

== ENCOUNTER 2017-11-13 04:56 | Inpatient (IN) | payer OTHER ==
[2017-11-13 05:09] LABS: POC GLUCOSE 158 mg/dL (70-99)
[2017-11-13] MEDS: ETOMIDATE 20 MG/10 ML VIAL. IV ×2 (05:12→05:35)
[2017-11-13] MEDS: SUCCINYLCHOLINE 200 MG/10 ML VIAL. IV (05:14)
[2017-11-13] MEDS ORDERED: PROPOFOL 50 ML IV ×2 (05:35→06:23)
[2017-11-13] MEDS: PROPOFOL 10 MG/ML (20ML) VIAL. IV (05:40)
[2017-11-13 05:52] LABS: BASO # 0.1 x10^3/uL (0.0-0.2); BASO % 0 % (0-3); EOS % 0 % (0-3); HEMATOCRIT 25.4 % (36.0-47.0); HEMOGLOBIN 8.1 g/dL (12.0-15.5); LYMPH # 0.5 x10^3/uL (1.0-4.8); LYMPH % 4 % (24-48); MEAN CORPUSCULAR HEMOGLOBIN 25 pg (25-35); MEAN CORPUSCULAR HGB CONC 32 g/dL (31-37); MEAN CORPUSCULAR VOLUME 78 fL (79-100); MONO # 1.2 x10^3/uL (0.0-1.1); MONO % 8 % (0-9); NEUT % 88 % (31-73); PLATELET COUNT 294 x10^3/uL (140-400); RED BLOOD COUNT 3.25 x10^6/uL (3.50-5.40); RED CELL DISTRIBUTION WIDTH 19.3 % (11.5-14.5); WHITE BLOOD COUNT 14.9 x10^3/uL (4.0-11.0)
[2017-11-13 05:55] LABS: ADD MAN DIFF? YES; BILIRUBIN,URINE NEGATIVE (NEG); CLARITY,URINE CLEAR; COLOR,URINE YELLOW; GLUCOSE,URINE NEGATIVE (NEG); NITRITE,URINE POSITIVE (NEG); PH,URINE 5.5; PROTEIN,URINE NEGATIVE (NEG-TRACE); UROBILINOGEN,URINE 0.2 mg/dL (0.2 mg/dL)
[2017-11-13 06:00] LABS: BASE EXCESS COOX -12 mmol/L (-3-3); CARBON MONOXIDE 0.3 % (0.0-1.9); HCO3 COOX 13 mmol/L (21-28); METHEMOGLOBIN 0.6 % (0.0-1.9); OXYHEMOGLOBIN 97.9 %; PCO2 COOX 26 mmHg (35-46); PH COOX 7.32 (7.35-7.45); PO2 COOX 217 mmHg (65-108); SAT O2 COOX 99 % (92-99); TOTAL HEMOGLOBIN 8.8 g/dL
[2017-11-13 06:01] LABS: FIO2 COOX 60
[2017-11-13 06:04] LABS: INR 1.2 (0.8-1.1); PARTIAL THROMBOPLASTIN TIME 28 SEC (24-38)
[2017-11-13 06:06] LABS: BACTERIA,URINE MANY /HPF (0-FEW); HYALINE CASTS, URINE FEW /HPF; SQUAMOUS EPITHELIAL CELL,UR FEW /LPF; WBC,URINE >40 /HPF (0-4)
[2017-11-13 06:08] LABS: ANION GAP 18 (6-14); BLOOD UREA NITROGEN 62 mg/dL (7-20); CALCIUM 9.3 mg/dL (8.5-10.1); CARBON DIOXIDE 14 mmol/L (21-32); CHLORIDE 105 mmol/L (98-107); CREATININE 2.4 mg/dL (0.6-1.0); GFR 20.5; GLUCOSE 160 mg/dL (70-99); SODIUM 137 mmol/L (136-145)
[2017-11-13 06:12] LABS: AMMONIA 380 mcmol/L (11-34); ETHANOL < 10 mg/dL (0-10)
[2017-11-13 06:15] LABS: LACTIC ACID 3.6 mmol/L (0.4-2.0)
[2017-11-13 06:16] LABS: TROPONINI < 0.017 ng/mL (0.000-0.055)
[2017-11-13 06:19] LABS: NT-PRO BNP 320 pg/mL (0-124)
[2017-11-13 06:22] LABS: ALBUMIN 3.1 g/dL (3.4-5.0); ALK PHOS 204 U/L (46-116); ALT (SGPT) 36 U/L (14-59); AST (SGOT) 44 U/L (15-37); DIRECT BILIRUBIN 0.2 mg/dL (0.0-0.2); LIPASE 459 U/L (73-393); TOTAL BILIRUBIN 0.6 mg/dL (0.2-1.0); TOTAL PROTEIN 8.2 g/dL (6.4-8.2)
[2017-11-13] MEDS ORDERED: fentaNYL PF VIAL 100 MCG/2 ML VIAL (06:23)
[2017-11-13] MEDS: IV NORMAL SALINE 1000ML BAG 1,000 ML IV ×5 (06:30→11:05)
[2017-11-13] MEDS: fentaNYL PF VIAL 100 MCG/2 ML VIAL IV (06:32)
[2017-11-13] MEDS ORDERED: NALOXONE 0.4 MG/ML VIAL. IV (06:45)
[2017-11-13] MEDS: VANCOMYCIN 1.5 GM in IV NORMAL SALINE 500ML BAG 500 ML IV (08:36)
[2017-11-13] MEDS ORDERED: PROPOFOL 100 ML IV (09:10)
[2017-11-13] MEDS ORDERED: DEXTROSE 50% 25 GM / 50ML DISP.SYRIN. IV (09:15)
[2017-11-13] MEDS ORDERED: PROPOFOL 10 MG/ML (100ML) VIAL. IV (09:30)
[2017-11-13 09:35] LABS: % BANDS 12 % (0-9); % LYMPHS 3 % (24-48); % MONOS 3 % (0-10); % MYELOS 1 % (0-0); % SEGS 81 % (35-66); PLT ESTIMATE ADEQUATE (ADEQUATE)
[2017-11-13 09:36] LABS: ANISOCYTOSIS SLIGHT; MICROCYTOSIS SLIGHT; POLYCHROMASIA SLIGHT
[2017-11-13 09:37] LABS: OVALOCYTES FEW
[2017-11-13 09:55] LABS: LACTIC ACID 2.2 mmol/L (0.4-2.0)
[2017-11-13] MEDS: LACTULOSE for RECTAL 200 GM/300 ML SOLUTION. PR (09:58)
[2017-11-13] MEDS: ENOXAPARIN 30 MG/0.3 ML SYRINGE. SQ (10:00)
[2017-11-13] MEDS ORDERED: NOREPINEPHRIN 8MG/250ML PREMIX 250 ML IV (10:45)
[2017-11-13] MEDS: PANTOPRAZOLE IV PUSH 40 MG VIAL. IVP (10:59)
[2017-11-13] MEDS: LACTULOSE 20 GM/30 ML SOLUTION. PO ×3 (10:59→20:55)
[2017-11-13] MEDS: VANCOMYCIN PER PHARMACY MC (11:08)
[2017-11-13] MEDS: AZTREONAM IV Push 2 GM VIAL. IVP (11:23)
[2017-11-13 13:23] LABS: BILIRUBIN,URINE NEGATIVE (NEG); CLARITY,URINE CLOUDY; COLOR,URINE YELLOW; GLUCOSE,URINE NEGATIVE (NEG); HEMATOCRIT 21.3 % (36.0-47.0); MEAN CORPUSCULAR HEMOGLOBIN 25 pg (25-35); MEAN CORPUSCULAR HGB CONC 32 g/dL (31-37); MEAN CORPUSCULAR VOLUME 79 fL (79-100); NITRITE,URINE NEGATIVE (NEG); PLATELET COUNT 191 x10^3/uL (140-400); PROTEIN,URINE NEGATIVE (NEG-TRACE); RED CELL DISTRIBUTION WIDTH 19.1 % (11.5-14.5); UROBILINOGEN,URINE 0.2 mg/dL (0.2 mg/dL); WHITE BLOOD COUNT 10.6 x10^3/uL (4.0-11.0)
[2017-11-13 13:26] LABS: HEMOGLOBIN 6.9 g/dL (12.0-15.5)
[2017-11-13 13:36] LABS: POC GLUCOSE 293 mg/dL (70-99)
[2017-11-13 13:38] LABS: BARBITURATES NEG (NEG); BENZODIAZEPINES NEG (NEG); CANNABINOIDS NEG (NEG); COCAINE NEG (NEG); METHADONE NEG (NEG); OPIATES NEG (NEG); PHENCYCLIDINE NEG (NEG)
[2017-11-13 13:40] LABS: AMPHETAMINE/METHAMPHETAMINE NEG (NEG); BACTERIA,URINE FEW /HPF (0-FEW); ETHANOL, URINE NEG (NEG); RBC,URINE >40 /HPF (0-2); SQUAMOUS EPITHELIAL CELL,UR MOD /LPF
[2017-11-13 13:47] LABS: LACTIC ACID 1.7 mmol/L (0.4-2.0)
[2017-11-13] MEDS: INSULIN LISPRO 300 UNITS/3 ML INSULN.PEN. SQ ×2 (15:46→17:40)
[2017-11-13] MEDS: IPRATRPIUM/ALBUTEROL 0.5/2.5MG 3 ML NEBU. NEB ×2 (16:14→20:34)
[2017-11-13 17:41] LABS: POC GLUCOSE 206 mg/dL (70-99)
[2017-11-13 18:37] LABS: IMMEDIATE SPIN CROSSMATCH 1 2
[2017-11-13] MEDS: CHLORHEXIDINE 0.12% 15 ML MOUTHWASH. MM (20:55)
[2017-11-14] MEDS: PROPOFOL 100 ML IV ×2 (00:22→07:16)
[2017-11-14 03:18] LABS: MRSA BY PCR Negative (Negative)
[2017-11-14 04:37] LABS: ADD MAN DIFF? NO
[2017-11-14 04:48] LABS: BASO % 0 % (0-3); EOS # 0.1 x10^3/uL (0.0-0.7); EOS % 1 % (0-3); HEMATOCRIT 28.3 % (36.0-47.0); HEMOGLOBIN 9.3 g/dL (12.0-15.5); LYMPH # 0.5 x10^3/uL (1.0-4.8); LYMPH % 4 % (24-48); MEAN CORPUSCULAR HEMOGLOBIN 26 pg (25-35); MEAN CORPUSCULAR HGB CONC 33 g/dL (31-37); MEAN CORPUSCULAR VOLUME 80 fL (79-100); MONO # 1.1 x10^3/uL (0.0-1.1); MONO % 9 % (0-9); NEUT # 10.1 x10^3uL (1.8-7.7); NEUT % 86 % (31-73); PLATELET COUNT 200 x10^3/uL (140-400); RED BLOOD COUNT 3.53 x10^6/uL (3.50-5.40); RED CELL DISTRIBUTION WIDTH 18.7 % (11.5-14.5); WHITE BLOOD COUNT 11.8 x10^3/uL (4.0-11.0)
[2017-11-14 05:21] LABS: ALBUMIN 2.3 g/dL (3.4-5.0); ALBUMIN/GLOBULIN RATIO 0.5 (1.0-1.7); ALK PHOS 167 U/L (46-116); ALT (SGPT) 32 U/L (14-59); ANION GAP 16 (6-14); AST (SGOT) 31 U/L (15-37); BLOOD UREA NITROGEN 51 mg/dL (7-20); BUN/CREATININE RATIO 27 (6-20); CALCIUM 7.8 mg/dL (8.5-10.1); CARBON DIOXIDE 14 mmol/L (21-32); CHLORIDE 110 mmol/L (98-107); CREATININE 1.9 mg/dL (0.6-1.0); GFR 26.9; GLUCOSE 241 mg/dL (70-99); POTASSIUM 4.8 mmol/L (3.5-5.1); SODIUM 140 mmol/L (136-145); TOTAL BILIRUBIN 1.3 mg/dL (0.2-1.0); TOTAL PROTEIN 6.7 g/dL (6.4-8.2)
[2017-11-14 05:27] LABS: % SAT IRON 40 % (15-34); IRON,SERUM 87 ug/dL (50-170)
[2017-11-14] MEDS: IPRATRPIUM/ALBUTEROL 0.5/2.5MG 3 ML NEBU. NEB ×4 (07:32→19:29)
[2017-11-14] MEDS: INSULIN LISPRO 300 UNITS/3 ML INSULN.PEN. SQ ×5 (07:53→21:39)
[2017-11-14] MEDS: PANTOPRAZOLE IV PUSH 40 MG VIAL. IVP (07:55)
[2017-11-14 08:00] LABS: POC GLUCOSE 234 mg/dL (70-99)
[2017-11-14] MEDS: VANCOMYCIN PER PHARMACY MC (08:08)
[2017-11-14] MEDS: LACTULOSE 20 GM/30 ML SOLUTION. PO ×3 (08:14→21:00)
[2017-11-14] MEDS: VANCOMYCIN 1.25 GM in IV NORMAL SALINE 250ML 250 ML IV (08:14)
[2017-11-14] MEDS: AZTREONAM IV Push 2 GM VIAL. IVP ×2 (08:15→21:25)
[2017-11-14 08:37] LABS: BASE EXCESS ABG -12 mmol/L (-3-3); HCO3 ABG 12 mmol/L (21-28); PH ABG 7.38 (7.35-7.45); PO2 ABG 183 mmHg (65-108); SAT O2 ABG 99 % (92-99)
[2017-11-14 08:39] LABS: FIO2 ABG 40%; PCO2 ABG 20 mmHg (35-46)
[2017-11-14] MEDS ORDERED: AZTREONAM 2 GM in IV DEXTROSE 5% 100ML 100 ML IV (09:00)
[2017-11-14] MEDS: CHLORHEXIDINE 0.12% 15 ML MOUTHWASH. MM ×2 (09:03→21:00)
[2017-11-14] MEDS: ENOXAPARIN 30 MG/0.3 ML SYRINGE. SQ (09:03)
[2017-11-14 13:06] LABS: POC GLUCOSE 249 mg/dL (70-99)
[2017-11-14] MEDS ORDERED: NON FORMULARY ITEM (Albuterol Sulfate (Albuterol Sulfate Conc Neb Soln) 2.5 MG) NEB (14:30)
[2017-11-14] MEDS ORDERED: guaiFENesin ORAL 200 MG/10 ML LIQUID. PO (14:30)
[2017-11-14] MEDS ORDERED: MORPHINE SULFATE 15 MG PO (14:30)
[2017-11-14] MEDS: CHLORTHALIDONE 25 MG TABLET. PO (15:00)
[2017-11-14] MEDS: LORazepam 0.5 MG TABLET PO (15:00)
[2017-11-14] MEDS: CYCLOBENZAPRINE 10 MG TABLET. PO ×2 (15:00→21:23)
[2017-11-14] MEDS ORDERED: ALBUTEROL SULFATE 2.5 MG/3 ML NEBU. NEB (15:15)
[2017-11-14] MEDS: SIMETHICONE 80 MG TAB.CHEW PO (16:55)
[2017-11-14 16:57] LABS: POC GLUCOSE 319 mg/dL (70-99)
[2017-11-14] MEDS: NYSTATIN 100,000 UNITS/ML 5 ML ORAL.SUSP. SWSW ×2 (17:46→21:26)
[2017-11-14] MEDS: BUDESONIDE 0.5 MG/2 ML NEBU. NEB (19:29)
[2017-11-14 20:49] LABS: POC GLUCOSE 329 mg/dL (70-99)
[2017-11-14] MEDS: SPIRONOLACTONE 25 MG TABLET PO (21:00)
[2017-11-14] MEDS ORDERED: NON FORMULARY ITEM (Omeprazole 20 MG) PO (21:00)
[2017-11-14] MEDS: INSULIN GLARGINE 300 UNITS/3 ML INSULN.PEN. SQ (21:39)
[2017-11-14 21:51] LABS: AMMONIA 112 mcmol/L (11-34)
[2017-11-15] MEDS: LEVOTHYROXINE 150 MCG TABLET PO (05:36)
[2017-11-15] MEDS: BUDESONIDE 0.5 MG/2 ML NEBU. NEB ×2 (07:30→20:38)
[2017-11-15] MEDS: IPRATRPIUM/ALBUTEROL 0.5/2.5MG 3 ML NEBU. NEB ×4 (07:31→20:38)
[2017-11-15 07:50] LABS: POC GLUCOSE 242 mg/dL (70-99)
[2017-11-15] MEDS ORDERED: LIDOCAINE 2% PF Vial for OR 5 ML VIAL. (08:27)
[2017-11-15] MEDS ORDERED: PROPOFOL 0 ML IV (08:27)
[2017-11-15] MEDS: LACTULOSE 20 GM/30 ML SOLUTION. PO ×3 (09:00→21:39)
[2017-11-15] MEDS: NYSTATIN 100,000 UNITS/ML 5 ML ORAL.SUSP. SWSW ×4 (09:11→21:39)
[2017-11-15] MEDS: SPIRONOLACTONE 25 MG TABLET PO ×2 (09:12→21:40)
[2017-11-15] MEDS: CYCLOBENZAPRINE 10 MG TABLET. PO ×3 (09:12→21:39)
[2017-11-15] MEDS: LORazepam 0.5 MG TABLET PO (09:12)
[2017-11-15] MEDS: CHLORTHALIDONE 25 MG TABLET. PO (09:12)
[2017-11-15] MEDS: PANTOPRAZOLE IV PUSH 40 MG VIAL. IVP (09:13)
[2017-11-15] MEDS: AZTREONAM IV Push 2 GM VIAL. IVP ×2 (09:20→21:00)
[2017-11-15] MEDS: INSULIN LISPRO 300 UNITS/3 ML INSULN.PEN. SQ ×6 (09:28→18:42)
[2017-11-15] MEDS ORDERED: ONDANSETRON PF 4 MG/2 ML VIAL. IV (09:30)
[2017-11-15 09:33] LABS: VANC TR 7.6 mcg/mL (10.0-20.0)
[2017-11-15 10:12] LABS: ANION GAP 15 (6-14); BLOOD UREA NITROGEN 45 mg/dL (7-20); CALCIUM 8.5 mg/dL (8.5-10.1); CARBON DIOXIDE 14 mmol/L (21-32); CHLORIDE 110 mmol/L (98-107); CREATININE 1.9 mg/dL (0.6-1.0); GFR 26.9; GLUCOSE 306 mg/dL (70-99); POTASSIUM 4.6 mmol/L (3.5-5.1); SODIUM 139 mmol/L (136-145)
[2017-11-15 11:20] LABS: POC GLUCOSE 263 mg/dL (70-99)
[2017-11-15] MEDS: INSULIN GLARGINE 300 UNITS/3 ML INSULN.PEN. SQ ×2 (11:54→22:00)
[2017-11-15] MEDS: FERROUS SULFATE 325 MG TABLET. PO (12:30)
[2017-11-15] MEDS: CHOLECALCIFEROL (VITAMIN D3) 1,000 UNIT TABLET PO (12:30)
[2017-11-15] MEDS: ENOXAPARIN 30 MG/0.3 ML SYRINGE. SQ (12:30)
[2017-11-15] MEDS: SODIUM BICARBONATE VIAL 50 MEQ in IV 1/2 NORMAL SALINE 1,000 ML IV (12:30)
[2017-11-15 16:36] LABS: POC GLUCOSE 173 mg/dL (70-99)
[2017-11-15 20:48] LABS: POC GLUCOSE 232 mg/dL (70-99)
[2017-11-15] MEDS: LACTOBACILLUS RHAMNOSUS GG 1 CAPSULE. PO (21:38)
[2017-11-16] MEDS: ALPRAZolam 1 MG TABLET PO ×2 (00:24→14:47)
[2017-11-16] MEDS: LEVOTHYROXINE 150 MCG TABLET PO (05:20)
[2017-11-16 06:25] LABS: ALBUMIN 2.1 g/dL (3.4-5.0); ALBUMIN/GLOBULIN RATIO 0.5 (1.0-1.7); ALK PHOS 157 U/L (46-116); ALT (SGPT) 29 U/L (14-59); ANION GAP 14 (6-14); AST (SGOT) 22 U/L (15-37); BLOOD UREA NITROGEN 45 mg/dL (7-20); BUN/CREATININE RATIO 24 (6-20); CARBON DIOXIDE 15 mmol/L (21-32); CHLORIDE 107 mmol/L (98-107); CREATININE 1.9 mg/dL (0.6-1.0); GFR 26.9; GLUCOSE 415 mg/dL (70-99); POTASSIUM 4.4 mmol/L (3.5-5.1); SODIUM 136 mmol/L (136-145); TOTAL BILIRUBIN 0.6 mg/dL (0.2-1.0); TOTAL PROTEIN 6.6 g/dL (6.4-8.2)
[2017-11-16] MEDS: IPRATRPIUM/ALBUTEROL 0.5/2.5MG 3 ML NEBU. NEB ×4 (07:21→19:50)
[2017-11-16] MEDS: BUDESONIDE 0.5 MG/2 ML NEBU. NEB ×2 (07:21→19:50)
[2017-11-16] MEDS: PANTOPRAZOLE IV PUSH 40 MG VIAL. IVP (07:30)
[2017-11-16 07:50] LABS: POC GLUCOSE 319 mg/dL (70-99)
[2017-11-16] MEDS: FERROUS SULFATE 325 MG TABLET. PO (08:00)
[2017-11-16] MEDS: CHOLECALCIFEROL (VITAMIN D3) 1,000 UNIT TABLET PO (09:00)
[2017-11-16] MEDS: LACTULOSE 20 GM/30 ML SOLUTION. PO ×3 (09:00→20:27)
[2017-11-16] MEDS: LACTOBACILLUS RHAMNOSUS GG 1 CAPSULE. PO ×2 (09:00→20:27)
[2017-11-16] MEDS: AZTREONAM IV Push 2 GM VIAL. IVP (09:00)
[2017-11-16] MEDS: NYSTATIN 100,000 UNITS/ML 5 ML ORAL.SUSP. SWSW ×4 (09:00→20:27)
[2017-11-16] MEDS: SPIRONOLACTONE 25 MG TABLET PO ×2 (09:00→20:27)
[2017-11-16] MEDS: CHLORTHALIDONE 25 MG TABLET. PO (09:00)
[2017-11-16] MEDS: LORazepam 0.5 MG TABLET PO (09:04)
[2017-11-16] MEDS: ENOXAPARIN 30 MG/0.3 ML SYRINGE. SQ (09:04)
[2017-11-16] MEDS: CYCLOBENZAPRINE 10 MG TABLET. PO ×3 (09:04→20:27)
[2017-11-16] MEDS: INSULIN GLARGINE 300 UNITS/3 ML INSULN.PEN. SQ ×2 (09:13→20:34)
[2017-11-16] MEDS: INSULIN LISPRO 300 UNITS/3 ML INSULN.PEN. SQ ×6 (09:14→18:28)
[2017-11-16 11:29] LABS: POC GLUCOSE 286 mg/dL (70-99)
[2017-11-16 12:47] LABS: INR 1.3 (0.8-1.1)
[2017-11-16 17:30] LABS: POC GLUCOSE 205 mg/dL (70-99)
[2017-11-16 18:10] LABS: C DIFF BY PCR Negative (Negative)
[2017-11-16] MEDS: ACETAMINOPHEN 500 MG TABLET PO (18:22)
[2017-11-16 20:06] LABS: POC GLUCOSE 223 mg/dL (70-99)
[2017-11-16] MEDS: HALOPERIDOL 5 MG TABLET. PO (20:27)
[2017-11-17 05:13] LABS: ADD MAN DIFF? NO
[2017-11-17 05:43] LABS: BASO % 1 % (0-3); EOS # 0.3 x10^3/uL (0.0-0.7); EOS % 3 % (0-3); HEMATOCRIT 29.4 % (36.0-47.0); HEMOGLOBIN 9.6 g/dL (12.0-15.5); LYMPH # 0.4 x10^3/uL (1.0-4.8); LYMPH % 5 % (24-48); MEAN CORPUSCULAR HEMOGLOBIN 27 pg (25-35); MEAN CORPUSCULAR HGB CONC 33 g/dL (31-37); MEAN CORPUSCULAR VOLUME 82 fL (79-100); MONO % 11 % (0-9); NEUT # 6.8 x10^3uL (1.8-7.7); NEUT % 80 % (31-73); PLATELET COUNT 199 x10^3/uL (140-400); RED CELL DISTRIBUTION WIDTH 19.2 % (11.5-14.5); WHITE BLOOD COUNT 8.5 x10^3/uL (4.0-11.0)
[2017-11-17 05:48] LABS: ALBUMIN 2.2 g/dL (3.4-5.0); ALBUMIN/GLOBULIN RATIO 0.5 (1.0-1.7); ALK PHOS 160 U/L (46-116); ALT (SGPT) 33 U/L (14-59); ANION GAP 12 (6-14); AST (SGOT) 28 U/L (15-37); BLOOD UREA NITROGEN 42 mg/dL (7-20); BUN/CREATININE RATIO 28 (6-20); CALCIUM 8.6 mg/dL (8.5-10.1); CARBON DIOXIDE 16 mmol/L (21-32); CHLORIDE 111 mmol/L (98-107); CREATININE 1.5 mg/dL (0.6-1.0); GFR 35.3; GLUCOSE 182 mg/dL (70-99); POTASSIUM 4.1 mmol/L (3.5-5.1); SODIUM 139 mmol/L (136-145); TOTAL BILIRUBIN 0.6 mg/dL (0.2-1.0); TOTAL PROTEIN 6.9 g/dL (6.4-8.2)
[2017-11-17] MEDS: LEVOTHYROXINE 150 MCG TABLET PO ×2 (07:00→07:59)
[2017-11-17] MEDS: PANTOPRAZOLE IV PUSH 40 MG VIAL. IVP (07:30)
[2017-11-17] MEDS: IPRATRPIUM/ALBUTEROL 0.5/2.5MG 3 ML NEBU. NEB ×4 (07:52→19:32)
[2017-11-17] MEDS: BUDESONIDE 0.5 MG/2 ML NEBU. NEB ×2 (07:52→19:32)
[2017-11-17] MEDS: FERROUS SULFATE 325 MG TABLET. PO (08:00)
[2017-11-17] MEDS: INSULIN LISPRO 300 UNITS/3 ML INSULN.PEN. SQ ×7 (08:00→16:48)
[2017-11-17 08:02] LABS: POC GLUCOSE 162 mg/dL (70-99)
[2017-11-17] MEDS: SPIRONOLACTONE 25 MG TABLET PO ×2 (09:00→21:13)
[2017-11-17] MEDS: LACTULOSE 20 GM/30 ML SOLUTION. PO ×3 (09:00→21:13)
[2017-11-17] MEDS: LACTOBACILLUS RHAMNOSUS GG 1 CAPSULE. PO ×2 (09:00→21:13)
[2017-11-17] MEDS: LORazepam 0.5 MG TABLET PO (09:00)
[2017-11-17] MEDS: CHOLECALCIFEROL (VITAMIN D3) 1,000 UNIT TABLET PO (09:00)
[2017-11-17] MEDS: CHLORTHALIDONE 25 MG TABLET. PO (09:00)
[2017-11-17] MEDS: CYCLOBENZAPRINE 10 MG TABLET. PO ×3 (09:00→21:13)
[2017-11-17] MEDS: NYSTATIN 100,000 UNITS/ML 5 ML ORAL.SUSP. SWSW ×4 (09:00→21:13)
[2017-11-17] MEDS: ENOXAPARIN 30 MG/0.3 ML SYRINGE. SQ (09:54)
[2017-11-17] MEDS: INSULIN GLARGINE 300 UNITS/3 ML INSULN.PEN. SQ ×2 (09:57→21:32)
[2017-11-17 12:40] LABS: POC GLUCOSE 156 mg/dL (70-99)
[2017-11-17] MEDS: AMINO AC 3%/ELECTROLYTE/GLYCER 1,000 ML IV (14:10)
[2017-11-17 16:12] LABS: POC GLUCOSE 335 mg/dL (70-99)
[2017-11-17 20:03] LABS: POC GLUCOSE 332 mg/dL (70-99)
[2017-11-18] MEDS: HALOPERIDOL 5 MG TABLET. PO (01:27)
[2017-11-18 04:42] LABS: ADD MAN DIFF? NO
[2017-11-18 04:49] LABS: BASO % 0 % (0-3); EOS # 0.2 x10^3/uL (0.0-0.7); EOS % 2 % (0-3); HEMATOCRIT 28.3 % (36.0-47.0); HEMOGLOBIN 9.4 g/dL (12.0-15.5); LYMPH # 0.4 x10^3/uL (1.0-4.8); LYMPH % 5 % (24-48); MEAN CORPUSCULAR HEMOGLOBIN 27 pg (25-35); MEAN CORPUSCULAR HGB CONC 33 g/dL (31-37); MEAN CORPUSCULAR VOLUME 82 fL (79-100); MONO % 11 % (0-9); NEUT # 6.9 x10^3uL (1.8-7.7); NEUT % 81 % (31-73); PLATELET COUNT 202 x10^3/uL (140-400); RED BLOOD COUNT 3.46 x10^6/uL (3.50-5.40); RED CELL DISTRIBUTION WIDTH 19.3 % (11.5-14.5); WHITE BLOOD COUNT 8.4 x10^3/uL (4.0-11.0)
[2017-11-18 05:19] LABS: ALBUMIN 2.1 g/dL (3.4-5.0); ALBUMIN/GLOBULIN RATIO 0.5 (1.0-1.7); ALK PHOS 167 U/L (46-116); ALT (SGPT) 33 U/L (14-59); ANION GAP 13 (6-14); AST (SGOT) 29 U/L (15-37); BLOOD UREA NITROGEN 41 mg/dL (7-20); BUN/CREATININE RATIO 26 (6-20); CALCIUM 8.1 mg/dL (8.5-10.1); CARBON DIOXIDE 15 mmol/L (21-32); CHLORIDE 105 mmol/L (98-107); CREATININE 1.6 mg/dL (0.6-1.0); GFR 32.8; GLUCOSE 348 mg/dL (70-99); POTASSIUM 4.7 mmol/L (3.5-5.1); SODIUM 133 mmol/L (136-145); TOTAL BILIRUBIN 0.6 mg/dL (0.2-1.0); TOTAL PROTEIN 6.7 g/dL (6.4-8.2)
[2017-11-18 05:54] LABS: POC GLUCOSE 307 mg/dL (70-99)
[2017-11-18] MEDS: LEVOTHYROXINE 150 MCG TABLET PO (07:00)
[2017-11-18] MEDS: IPRATRPIUM/ALBUTEROL 0.5/2.5MG 3 ML NEBU. NEB ×4 (07:16→19:28)
[2017-11-18] MEDS: BUDESONIDE 0.5 MG/2 ML NEBU. NEB ×2 (07:16→19:28)
[2017-11-18 07:34] LABS: POC GLUCOSE 314 mg/dL (70-99)
[2017-11-18] MEDS: INSULIN LISPRO 300 UNITS/3 ML INSULN.PEN. SQ ×6 (08:06→16:21)
[2017-11-18] MEDS: ENOXAPARIN 40 MG/0.4 ML SYRINGE. SQ (08:37)
[2017-11-18] MEDS: CHLORTHALIDONE 25 MG TABLET. PO ×3 (09:00→09:28)
[2017-11-18] MEDS: LACTULOSE 20 GM/30 ML SOLUTION. PO ×3 (09:00→21:00)
[2017-11-18] MEDS: SPIRONOLACTONE 25 MG TABLET PO ×2 (09:00→21:54)
[2017-11-18] MEDS: PANTOPRAZOLE 40 MG TABLET.DR. PO (09:12)
[2017-11-18] MEDS: FERROUS SULFATE 325 MG TABLET. PO (09:12)
[2017-11-18] MEDS: CYCLOBENZAPRINE 10 MG TABLET. PO ×3 (09:13→21:54)
[2017-11-18] MEDS: LACTOBACILLUS RHAMNOSUS GG 1 CAPSULE. PO ×2 (09:13→21:54)
[2017-11-18] MEDS: LORazepam 0.5 MG TABLET PO (09:13)
[2017-11-18] MEDS: CHOLECALCIFEROL (VITAMIN D3) 1,000 UNIT TABLET PO (09:16)
[2017-11-18] MEDS: NYSTATIN 100,000 UNITS/ML 5 ML ORAL.SUSP. SWSW ×4 (09:16→21:00)
[2017-11-18] MEDS: INSULIN GLARGINE 300 UNITS/3 ML INSULN.PEN. SQ ×2 (09:24→22:14)
[2017-11-18] MEDS: AMINO AC 3%/ELECTROLYTE/GLYCER 1,000 ML IV (09:28)
[2017-11-18] MEDS ORDERED: LIDOCAINE WITH 8.4% SOD BICARB 3 ML DISP.SYRIN. (10:14)
[2017-11-18 12:27] LABS: POC GLUCOSE 278 mg/dL (70-99)
[2017-11-18] MEDS: LIDOCAINE WITH 8.4% SOD BICARB 3 ML DISP.SYRIN. IJ (13:58)
[2017-11-18] MEDS ORDERED: ALBUMIN HUMAN 25% 100 ML IV ×2 (14:07→14:18)
[2017-11-18] MEDS: ALBUMIN HUMAN 25% 100 ML IV ×2 (14:23→14:30)
[2017-11-18 16:14] LABS: AMMONIA 94 mcmol/L (11-34)
[2017-11-18 16:23] LABS: POC GLUCOSE 253 mg/dL (70-99)
[2017-11-18 17:05] LABS: BASE EXCESS ABG -8 mmol/L (-3-3); HCO3 ABG 15 mmol/L (21-28); PCO2 ABG 22 mmHg (35-46); PH ABG 7.45 (7.35-7.45); PO2 ABG 99 mmHg (65-108); SAT O2 ABG 97 % (92-99)
[2017-11-18 17:11] LABS: FIO2 ABG 21
[2017-11-18] MEDS: ACETAMINOPHEN 500 MG TABLET PO (17:47)
[2017-11-18 20:19] LABS: POC GLUCOSE 293 mg/dL (70-99)
[2017-11-19] MEDS: AMINO AC 3%/ELECTROLYTE/GLYCER 1,000 ML IV (05:06)
[2017-11-19 05:10] LABS: ADD MAN DIFF? NO
[2017-11-19 05:20] LABS: BASO % 0 % (0-3); EOS # 0.1 x10^3/uL (0.0-0.7); EOS % 2 % (0-3); HEMATOCRIT 26.9 % (36.0-47.0); HEMOGLOBIN 8.9 g/dL (12.0-15.5); LYMPH # 0.4 x10^3/uL (1.0-4.8); LYMPH % 6 % (24-48); MEAN CORPUSCULAR HEMOGLOBIN 27 pg (25-35); MEAN CORPUSCULAR HGB CONC 33 g/dL (31-37); MEAN CORPUSCULAR VOLUME 81 fL (79-100); MONO # 0.8 x10^3/uL (0.0-1.1); MONO % 10 % (0-9); NEUT # 6.4 x10^3uL (1.8-7.7); NEUT % 82 % (31-73); PLATELET COUNT 173 x10^3/uL (140-400); RED BLOOD COUNT 3.32 x10^6/uL (3.50-5.40); RED CELL DISTRIBUTION WIDTH 20.3 % (11.5-14.5); WHITE BLOOD COUNT 7.7 x10^3/uL (4.0-11.0)
[2017-11-19 06:16] LABS: ALBUMIN 2.5 g/dL (3.4-5.0); ALBUMIN/GLOBULIN RATIO 0.6 (1.0-1.7); ALK PHOS 148 U/L (46-116); ALT (SGPT) 29 U/L (14-59); ANION GAP 11 (6-14); AST (SGOT) 29 U/L (15-37); BLOOD UREA NITROGEN 38 mg/dL (7-20); BUN/CREATININE RATIO 25 (6-20); CALCIUM 8.2 mg/dL (8.5-10.1); CARBON DIOXIDE 17 mmol/L (21-32); CHLORIDE 104 mmol/L (98-107); CREATININE 1.5 mg/dL (0.6-1.0); GFR 35.3; GLUCOSE 390 mg/dL (70-99); POTASSIUM 5.1 mmol/L (3.5-5.1); SODIUM 132 mmol/L (136-145); TOTAL BILIRUBIN 0.7 mg/dL (0.2-1.0); TOTAL PROTEIN 6.9 g/dL (6.4-8.2)
[2017-11-19] MEDS: IPRATRPIUM/ALBUTEROL 0.5/2.5MG 3 ML NEBU. NEB ×4 (07:30→20:27)
[2017-11-19] MEDS: BUDESONIDE 0.5 MG/2 ML NEBU. NEB ×2 (07:30→20:27)
[2017-11-19 08:17] LABS: POC GLUCOSE 348 mg/dL (70-99)
[2017-11-19] MEDS: INSULIN LISPRO 300 UNITS/3 ML INSULN.PEN. SQ ×7 (08:34→18:02)
[2017-11-19] MEDS: INSULIN GLARGINE 300 UNITS/3 ML INSULN.PEN. SQ ×2 (08:36→21:15)
[2017-11-19] MEDS: FERROUS SULFATE 325 MG TABLET. PO (08:38)
[2017-11-19] MEDS: PANTOPRAZOLE 40 MG TABLET.DR. PO (08:38)
[2017-11-19] MEDS: LEVOTHYROXINE 150 MCG TABLET PO (08:38)
[2017-11-19] MEDS: SPIRONOLACTONE 25 MG TABLET PO ×2 (08:39→20:59)
[2017-11-19] MEDS: LACTOBACILLUS RHAMNOSUS GG 1 CAPSULE. PO ×2 (08:39→20:59)
[2017-11-19] MEDS: LORazepam 0.5 MG TABLET PO (08:39)
[2017-11-19] MEDS: CYCLOBENZAPRINE 10 MG TABLET. PO ×3 (08:40→20:59)
[2017-11-19] MEDS: CHLORTHALIDONE 25 MG TABLET. PO (08:40)
[2017-11-19] MEDS: CHOLECALCIFEROL (VITAMIN D3) 1,000 UNIT TABLET PO (08:41)
[2017-11-19] MEDS: NYSTATIN 100,000 UNITS/ML 5 ML ORAL.SUSP. SWSW ×5 (08:41→21:00)
[2017-11-19] MEDS: ENOXAPARIN 40 MG/0.4 ML SYRINGE. SQ (08:42)
[2017-11-19] MEDS: LACTULOSE 20 GM/30 ML SOLUTION. PO ×3 (08:50→21:00)
[2017-11-19 11:37] LABS: POC GLUCOSE 412 mg/dL (70-99)
[2017-11-19] MEDS: ACETAMINOPHEN 500 MG TABLET PO (12:19)
[2017-11-19 13:07] LABS: POC GLUCOSE 413 mg/dL (70-99)
[2017-11-19 18:09] LABS: POC GLUCOSE 330 mg/dL (70-99)
[2017-11-19 20:21] LABS: POC GLUCOSE 352 mg/dL (70-99)
[2017-11-20 04:39] LABS: ADD MAN DIFF? NO
[2017-11-20 05:01] LABS: BASO # 0.1 x10^3/uL (0.0-0.2); BASO % 1 % (0-3); EOS # 0.2 x10^3/uL (0.0-0.7); EOS % 2 % (0-3); HEMATOCRIT 28.3 % (36.0-47.0); HEMOGLOBIN 9.5 g/dL (12.0-15.5); LYMPH # 0.5 x10^3/uL (1.0-4.8); LYMPH % 6 % (24-48); MEAN CORPUSCULAR HEMOGLOBIN 27 pg (25-35); MEAN CORPUSCULAR HGB CONC 33 g/dL (31-37); MEAN CORPUSCULAR VOLUME 80 fL (79-100); MONO # 0.8 x10^3/uL (0.0-1.1); MONO % 9 % (0-9); NEUT # 7.4 x10^3uL (1.8-7.7); NEUT % 83 % (31-73); PLATELET COUNT 194 x10^3/uL (140-400); RED BLOOD COUNT 3.53 x10^6/uL (3.50-5.40); RED CELL DISTRIBUTION WIDTH 20.5 % (11.5-14.5)
[2017-11-20 05:08] LABS: ALBUMIN 2.5 g/dL (3.4-5.0); ALBUMIN/GLOBULIN RATIO 0.6 (1.0-1.7); ALK PHOS 158 U/L (46-116); ALT (SGPT) 32 U/L (14-59); ANION GAP 10 (6-14); AST (SGOT) 30 U/L (15-37); BLOOD UREA NITROGEN 38 mg/dL (7-20); BUN/CREATININE RATIO 21 (6-20); CALCIUM 8.7 mg/dL (8.5-10.1); CARBON DIOXIDE 19 mmol/L (21-32); CHLORIDE 102 mmol/L (98-107); CREATININE 1.8 mg/dL (0.6-1.0); GFR 28.6; GLUCOSE 344 mg/dL (70-99); SODIUM 131 mmol/L (136-145); TOTAL BILIRUBIN 0.7 mg/dL (0.2-1.0); TOTAL PROTEIN 6.7 g/dL (6.4-8.2)
[2017-11-20 05:09] LABS: POTASSIUM 5.5 mmol/L (3.5-5.1)
[2017-11-20] MEDS: BUDESONIDE 0.5 MG/2 ML NEBU. NEB (06:50)
[2017-11-20] MEDS: IPRATRPIUM/ALBUTEROL 0.5/2.5MG 3 ML NEBU. NEB ×2 (06:51→11:04)
[2017-11-20 08:13] LABS: POC GLUCOSE 378 mg/dL (70-99)
[2017-11-20] MEDS: LACTULOSE 20 GM/30 ML SOLUTION. PO (09:00)
[2017-11-20] MEDS: CYCLOBENZAPRINE 10 MG TABLET. PO (09:00)
[2017-11-20] MEDS: LORazepam 0.5 MG TABLET PO (09:45)
[2017-11-20] MEDS: NYSTATIN 100,000 UNITS/ML 5 ML ORAL.SUSP. SWSW ×2 (09:46→13:41)
[2017-11-20] MEDS: PANTOPRAZOLE 40 MG TABLET.DR. PO (09:46)
[2017-11-20] MEDS: LACTOBACILLUS RHAMNOSUS GG 1 CAPSULE. PO (09:46)
[2017-11-20] MEDS: LEVOTHYROXINE 150 MCG TABLET PO (09:46)
[2017-11-20] MEDS: FERROUS SULFATE 325 MG TABLET. PO (09:46)
[2017-11-20] MEDS: CHOLECALCIFEROL (VITAMIN D3) 1,000 UNIT TABLET PO (09:46)
[2017-11-20] MEDS: CHLORTHALIDONE 25 MG TABLET. PO (09:46)
[2017-11-20] MEDS: SPIRONOLACTONE 25 MG TABLET PO (09:47)
[2017-11-20] MEDS: ENOXAPARIN 40 MG/0.4 ML SYRINGE. SQ (10:05)
[2017-11-20] MEDS: INSULIN GLARGINE 300 UNITS/3 ML INSULN.PEN. SQ (10:05)
[2017-11-20] MEDS: INSULIN LISPRO 300 UNITS/3 ML INSULN.PEN. SQ ×5 (10:45→13:49)
[2017-11-20] MEDS: glyBURIDE 1.25 MG TABLET PO (10:50)
[2017-11-20 11:39] LABS: POC GLUCOSE 396 mg/dL (70-99)
[2017-11-20 16:11] LABS: POC GLUCOSE 319 mg/dL (70-99)
== END 2017-11-20 16:45 | disposition home health service (06) | DRG 871 ==
LOC: ER 04:56 → 5 SOUTH 11-14 15:29 → 1 WEST ICU 05:45
PROVIDERS: Internal Medicine
PROC: 5A1945Z Respiratory Ventilation, 24-96 Consecutive Hours (ICD-10-PCS; principal; 2017-11-13)
PROC: 30233N1 Transfusion of Nonautologous Red Blood Cells into Peripheral Vein, Percutaneous Approach (ICD-10-PCS; 2017-11-13)
PROC: 0BH17EZ Insertion of Endotracheal Airway into Trachea, Via Natural or Artificial Opening (ICD-10-PCS; 2017-11-13)
PROC: 0W9G3ZZ Drainage of Peritoneal Cavity, Percutaneous Approach (ICD-10-PCS; 2017-11-18)
DX: A41.9 Sepsis, unspecified organism (principal); J96.01 Acute respiratory failure with hypoxia; G92 Toxic encephalopathy; J96.02 Acute respiratory failure with hypercapnia; N17.0 Acute kidney failure with tubular necrosis; E44.0 Moderate protein-calorie malnutrition; E87.2 Acidosis; N39.0 Urinary tract infection, site not specified; R18.8 Other ascites; Z94.4 Liver transplant status; R65.20 Severe sepsis without septic shock; M19.90 Unspecified osteoarthritis, unspecified site; I12.9 Hypertensive chronic kidney disease with stage 1 through stage 4 chronic kidney disease, or unspecified chronic kidney disease; N18.9 Chronic kidney disease, unspecified; D64.9 Anemia, unspecified; E03.9 Hypothyroidism, unspecified; E11.22 Type 2 diabetes mellitus with diabetic chronic kidney disease; E11.42 Type 2 diabetes mellitus with diabetic polyneuropathy; E66.9 Obesity, unspecified; E78.5 Hyperlipidemia, unspecified; F17.210 Nicotine dependence, cigarettes, uncomplicated; F32.9 Major depressive disorder, single episode, unspecified; F41.9 Anxiety disorder, unspecified; J44.9 Chronic obstructive pulmonary disease, unspecified; K21.9 Gastro-esophageal reflux disease without esophagitis; K72.90 Hepatic failure, unspecified without coma; K74.60 Unspecified cirrhosis of liver; K76.0 Fatty (change of) liver, not elsewhere classified; Z68.32 Body mass index [BMI] 32.0-32.9, adult; Z82.3 Family history of stroke; Z83.3 Family history of diabetes mellitus; Z87.892 Personal history of anaphylaxis; Z86.010 Personal history of colon polyps; Z88.1 Allergy status to other antibiotic agents; Z88.2 Allergy status to sulfonamides; Z90.710 Acquired absence of both cervix and uterus; Z88.8 Allergy status to other drugs, medicaments and biological substances; Z98.49 Cataract extraction status, unspecified eye; Z90.89 Acquired absence of other organs
CPT/HCPCS: 31500; 36415; 36600; 49083; 51702; 70450; 71045; 72125; 76705; 80048; 80053; 80076; 80202; 80307; 81001; 82140; 82805; 82962; 83540; 83550; 83605; 83690; 83880; 84484; 85007; 85025; 85027; 85610; 85730; 86850; 86900; 86901; 86920; 87040; 87045; 87086; 87324; 87641; 93005; 94002; 94003; 94640; 94760; 96361; 96374; 97110-GP; 97116-GP; 97162-GP; 97166-GO; 97530-GO; 97530-GP; 99291; A4215; C1729; C1894; C9113; G0480; J0330; J1650; J1815; J1956; J2001; J2704; J3010; J3370; J3490; J7030; J7040; J7050; J7620; J7626; P9016; P9046

== ENCOUNTER 2017-11-22 06:37 | Inpatient (IN) | payer OTHER ==
[2017-11-22] MEDS ORDERED: IV NORMAL SALINE 1000ML BAG 1,000 ML IV (08:30)
[2017-11-22] MEDS ORDERED: ALBUTEROL SULFATE 8GM INHALER. IH (15:45)
[2017-11-22] MEDS ORDERED: ALBUTEROL SULFATE 2.5 MG/3 ML NEBU. NEB (16:15)
[2017-11-22] MEDS: LACTULOSE 20 GM/30 ML SOLUTION. PO (16:15)
[2017-11-22] MEDS ORDERED: guaiFENesin ORAL 200 MG/10 ML LIQUID. PO (16:30)
[2017-11-22] MEDS ORDERED: INSULIN LISPRO 300 UNITS/3 ML INSULN.PEN. SQ (17:00)
[2017-11-22] MEDS: NYSTATIN 100,000 UNITS/ML 5 ML ORAL.SUSP. SWSW (17:07)
[2017-11-22] MEDS: CHLORTHALIDONE 25 MG TABLET. PO (17:08)
[2017-11-22] MEDS: CHOLECALCIFEROL (VITAMIN D3) 1,000 UNIT TABLET PO (17:08)
[2017-11-22] MEDS: PANTOPRAZOLE 40 MG TABLET.DR. PO (17:08)
[2017-11-22] MEDS: CYCLOBENZAPRINE 10 MG TABLET. PO (17:09)
[2017-11-22] MEDS ORDERED: MORPHINE ER 15 MG TABLET.ER PO (21:00)
[2017-11-22] MEDS ORDERED: SPIRONOLACTONE 25 MG TABLET PO (21:00)
[2017-11-23] MEDS ORDERED: LEVOTHYROXINE 100 MCG TABLET PO (07:00)
[2017-11-23] MEDS ORDERED: LORazepam 0.5 MG TABLET PO (09:00)
[2017-11-28] MEDS ORDERED: ERGOCALCIFEROL (VITAMIN D2) 50,000 UNIT CAPSULE. PO (09:00)
== END 2017-11-22 17:40 | disposition home health service (06) | DRG 640 ==
LOC: 5 SOUTH 06:37
DX: R62.7 Adult failure to thrive (principal); G93.41 Metabolic encephalopathy; E03.9 Hypothyroidism, unspecified; E11.9 Type 2 diabetes mellitus without complications; I10 Essential (primary) hypertension; J45.909 Unspecified asthma, uncomplicated; K21.9 Gastro-esophageal reflux disease without esophagitis; Z83.3 Family history of diabetes mellitus; Z91.19 Patient's noncompliance with other medical treatment and regimen
CPT/HCPCS: J1815

== ENCOUNTER 2017-12-20 11:46 | Emergency (ER) | payer OTHER ==
[~2017-12-20] VITALS: Ht 167.6 cm; Wt 99.8 kg
[~2017-12-20 11:46] MED LIST changes: -LIDOCAINE WITH 8.4% SOD BICARB 3 ML DISP.SYRIN. ONE
--- NOTE | 2017-12-20 12:31 | RAD ---
EXAM: Chest, single view. HISTORY: Altered mental status. COMPARISON: 11/13/2017 FINDINGS: A frontal view of the chest is obtained. There is stable diffuse increased interstitial opacity likely due to mild congestion. There is a suspected superimposed lingular and bilateral lower lobe atelectasis There is no consolidation, pleural effusion or pneumothorax. The heart is normal in size for portable technique. There are incidental left shoulder joint loose bodies. IMPRESSION: Mild pulmonary congestion with suspected superimposed lingular and bilateral lower lobe atelectasis. Electronically signed by: Chanell Colmenares MD (12/20/2017 12:28 PM) [place] [id number]
--- NOTE | 2017-12-20 12:42 | EKG ---
[facility] [address] [place] [address] Test Date: 2017-12-20 Test Time: 12:16:18 Pat Name: YANIRA BRAVO Department: Room: Gender: F Facility Designer: : [id number] Requested By: LIBAN BENZ Order Number: [id number] Reading MD: Dariusz Fritz MD Measurements Intervals [place] Rate: 96 P: 7 WI: 152 QRS: 34 QRSD: 86 T: 19 QT: 380 QTc: 481 Interpretive Statements SINUS RHYTHM PROLONGED QT Electronically Signed On 12-24-2017 11:55:01 CDT by Dariusz Fritz MD
--- NOTE | 2017-12-20 12:49 | PHYS DOC ---
Past Medical History Past Medical History: COPD, Diabetes-Type II, Hypertension, Liver Disease, UTI Additional Past Medical Histor: neuropathy,gallstones,non etoh cirossis Past Surgical History: Hysterectomy Additional Past Surgical Histo: esophogeal banding after esoph. varacies. Alcohol Use: None Drug Use: None Adult General Chief Complaint Chief Complaint: ALTERED MENTAL STATUS [facility] HPI Patient is a 62 year old female who is presenting with altered mental status. She has a history of end-stage liver disease. From nonalcoholic steatohepatitis She is followed at . She went for an outpatient procedure today paracentesis and she was more altered than normal so she was sent to the ER for evaluation. No fever no abdominal pain just abdominal distention which is not uncommon for her mild shortness of breath she has not hit her head Does have diarrhea which is chronic no vomiting The altered mental status is described as shaking and slow to answer questions according to the son. Review of Systems Review of Systems Constitutional: Denies fever or chills [] Eyes: Denies change in visual acuity, redness, or eye pain [] HENT: Denies nasal congestion or sore throat [] Respiratory: Denies cough or shortness of breath [] Cardiovascular: No additional information not addressed in HPI [] Neurologic: Denies headache, focal weakness or sensory changes [] Endocrine: Denies polyuria or polydipsia [] All other systems were reviewed and found to be within normal limits, except as documented in this note. Current Medications Current Medications Current Medications Medications (Trade) Dose Ordered Sig/Emanuel Start Time Stop Time Status Last Admin Dose Admin Aztreonam (Azactam) 1 gm 1X ONCE 12/20/17 14:00 12/20/17 14:01 DC 12/20/17 14:27 1 GM Aztreonam 1 gm/ Dextrose 50 ml @ 100 mls/hr 1X ONCE 12/20/17 14:00 12/20/17 14:29 Cancel Sodium Chloride 500 ml @ 500 mls/hr 1X ONCE 12/20/17 14:00 12/20/17 14:59 12/20/17 14:26 500 MLS/HR Allergies Allergies Allergies Coded Allergies Type Severity Reaction Last Updated Verified Sulfa (Sulfonamide Antibiotics) Allergy Severe Swelling 11/08/16 Yes cephalexin Allergy Severe Anaphylaxis 11/08/16 Yes doxycycline Allergy Intermediate 11/08/16 Yes insulin detemir Allergy Intermediate Rash 11/08/16 Yes niacin Allergy Intermediate Rash 11/08/16 Yes povidone-iodine Allergy Intermediate It 11/08/16 Yes rifaximin Allergy Intermediate Itching 11/08/16 Yes tramadol Allergy Intermediate Rash 05/09/17 Yes erythromycin base Adverse Reaction Intermediate Diarrhea 11/08/16 Yes codeine Adverse Reaction Mild Nausea and Vomiting 11/13/17 Yes Physical Exam Physical Exam Constitutional: Well developed, stigmata of chronic liver disease HENT: Normocephalic, atraumatic, bilateral external ears normal, oropharynx moist, no oral exudates, nose normal. [] Eyes: PERRLA, EOMI, conjunctiva normal, no discharge. [] Neck: Normal range of motion, no tenderness, supple, no stridor. [] Cardiovascular:Heart rate regular rhythm, no murmur [] Lungs & Thorax: Decreased bibasilar breath sounds Abdomen: Bowel sounds normal, soft, DISTENDED Skin: Warm, dry, no erythema, no rash. [] Back: No tenderness, no CVA tenderness. [] Extremities: No tenderness, no cyanosis, no clubbing, ROM intact,ONE TO TWO PLUS EDEMA. Greater on the left. Neurologic: Alert and oriented X 3, normal motor function, normal sensory function, no focal deficits noted. []Patient is slightly slow to answer questions but able to do so. Asterixis is noted eyes are closed but open to voice. Psychologic: Affect normal, judgement normal, mood normal. [] Current Patient Data Vital Signs Vital Signs Date Time Temp Pulse Resp B/P (MAP) Pulse Ox O2 Delivery O2 Flow Rate FiO2 12/20/17 13:53 98 18 98 12/20/17 11:46 97.6 114/50 (71) Room Air 97.6 Lab Values Laboratory Tests Test 12/20/17 12:24 12/20/17 13:00 Body Fluid Source Ascites Body Fluid Color Yellow Body Fluid Clarity Hazy Body Fluid Nucleated Cells 30 /cmm Body Fluid Mononuclear WBCs (%) 90 % Body Fluid Polymorphonuclear Cells 10 % Body Fluid Total RBCs Counted 815 /cmm Urine Collection Type U cath Urine Color Yellow Urine Clarity Clear Urine pH 6.0 Urine Specific [place] 1.020 Urine Protein Negative mg/dL (NEG-TRACE) Urine Glucose (UA) Negative mg/dL (NEG) Urine Ketones (Stick) Negative mg/dL (NEG) Urine Blood Negative (NEG) Urine Nitrite Negative (NEG) Urine Bilirubin Negative (NEG) Urine Urobilinogen Dipstick 0.2 mg/dL (0.2 mg/dL) Urine Leukocyte Esterase Moderate (NEG) Urine RBC 0 /HPF (0-2) Urine WBC Tntc /HPF (0-4) Urine Bacteria Many /HPF (0-FEW) Urine Hyaline Casts Few /HPF EKG EKG [] Interpretation Time: Normal sinus rhythm rate of 96 QTC 481 no STEMI Radiology/Procedures Radiology/Procedures [] Impressions: FINDINGS: A frontal view of the chest is obtained. There is stable diffuse increased interstitial opacity likely due to mild congestion. There is a suspected superimposed lingular and bilateral lower lobe atelectasis There is no consolidation, pleural effusion or pneumothorax. The heart is normal in size for portable technique. There are incidental left shoulder joint loose bodies. IMPRESSION: Mild pulmonary congestion with suspected superimposed lingular and bilateral lower lobe atelectasis. Electronically signed by: Chanell Bacon MD (12/20/2017 12:28 PM) [id number] DICTATED and SIGNED BY: CHANELL BACON MD DATE: 12/20/17 1225 Findings: There is normal duplex flow, color flow and compressibility of all visualized vein segments. No evidence of deep venous thrombus is present. Impression: No evidence of DVT in the visualized left lower extremity venous system. Electronically signed by: Fermin Rodriguez MD (12/20/2017 1:48 PM) [id number] DICTATED and SIGNED BY: FERMIN RODRIGUEZ MD Course & Med Decision Making Course & Med Decision Making Pertinent Labs and Imaging studies reviewed. (See chart for details) []This is a 62-year-old female with a history of end-stage liver disease who is presenting with decreased mental status. I suspect a component of hepatic encephalopathy the elevated ammonia was support this. In addition noted a UTI which could be contributing and on top that the creatinine is elevated from baseline query dehydration versus less likely hepatorenal syndrome patient was given a fluid bolus as well as blood cultures were collected and IV aztreonam was given. In addition concern for SBP so I R M.D. came over and checked that he did a diagnostic per we were reluctant to do a therapeutic [place] due to the decreased creatinine. The cell count came back not suggestive of SBP. Patient patient's son requested transfer to due to continuity of care and complicated condition. I think that this is reasonable as well due to the possibility of hepatorenal syndrome. In addition she has been admitted several times there recently including comp located admissions according to the family. I spoke with the transfer center and the patient will be admitted to the service of Dr. SAEED webster. She we transferred in stable condition at this time. I've opted not to give lactulose as the patient will be transferred via ambulance for patient comfort Dragon Disclaimer Dragon Disclaimer This electronic medical record was generated, in whole or in part, using a voice recognition dictation system. Departure Departure Impression: Primary Impression: Urinary tract infection Disposition: 02 TRANSFER [facility] Condition: STABLE Referrals: VIANEY VU DO (PCP) LIBAN BENZ MD Dec 20, 2017 12:49
[2017-12-20 13:15] LABS: BILIRUBIN,URINE NEGATIVE (NEG); CLARITY,URINE CLEAR; COLOR,URINE YELLOW; NITRITE,URINE NEGATIVE (NEG); PROTEIN,URINE NEGATIVE (NEG-TRACE); UROBILINOGEN,URINE 0.2 mg/dL (0.2 mg/dL)
[2017-12-20 13:26] LABS: BACTERIA,URINE MANY /HPF (0-FEW); HYALINE CASTS, URINE FEW /HPF; RBC,URINE 0 /HPF (0-2); WBC,URINE TNTC /HPF (0-4)
--- NOTE | 2017-12-20 13:51 | RAD ---
Examination: Lower Extremity Venous Doppler Ultrasound History: Left ankle swelling Comparison: None Procedure: Dsouza scale, color flow 2D and spectal waveform analysis images are obtained with and without compression in the area of the common femoral vein, superficial femoral vein - femoral vein junction, main femoral vein (superficial femoral vein) and popliteal vein. Veins of the proximal calf are also imaged. Findings: There is normal duplex flow, color flow and compressibility of all visualized vein segments. No evidence of deep venous thrombus is present. Impression: No evidence of DVT in the visualized left lower extremity venous system. Electronically signed by: Fermin Rodriguez MD (12/20/2017 1:48 PM) [id number]
[2017-12-20] MEDS ORDERED: AZTREONAM 1 GM in IV DEXTROSE 5% 50 ML IV ONE (14:00)
[2017-12-20] MEDS ORDERED: IV NORMAL SALINE 500ML BAG 500 ML IV ONE (14:00)
[2017-12-20] MEDS ORDERED: AZTREONAM IV Push 1 GM VIAL. IVP ONE (14:00)
[2017-12-20 14:44] LABS: BF CLARITY HAZY; BF COLOR YELLOW; BF MON % 90 %; BF PMN % 10 %; BF RBC COUNT 815 /cmm; BF SOURCE ASCITES; BF WBC COUNT 30 /cmm
[2017-12-20 16:00] VITALS: BP 120/59
== END 2017-12-20 18:31 | disposition short-term general hospital (02) ==
LOC: ER 11:46
DX: N39.0 Urinary tract infection, site not specified (principal); K59.09 Other constipation; J44.9 Chronic obstructive pulmonary disease, unspecified; E11.40 Type 2 diabetes mellitus with diabetic neuropathy, unspecified; Z90.710 Acquired absence of both cervix and uterus; Z87.19 Personal history of other diseases of the digestive system; I13.2 Hypertensive heart and chronic kidney disease with heart failure and with stage 5 chronic kidney disease, or end stage renal disease; E11.22 Type 2 diabetes mellitus with diabetic chronic kidney disease; N18.6 End stage renal disease; I50.9 Heart failure, unspecified; Z88.1 Allergy status to other antibiotic agents; Z88.2 Allergy status to sulfonamides; Z88.5 Allergy status to narcotic agent; Z88.6 Allergy status to analgesic agent; Z88.8 Allergy status to other drugs, medicaments and biological substances; Z91.041 Radiographic dye allergy status
CPT/HCPCS: 36415; 51701; 71045; 81001; 83605; 87040; 87071; 87075; 87086; 87186; 89050; 93005; 93971; 96361; 96374; 99285; J3490; J7040

== ENCOUNTER → 2017-12-20 | Outpatient (CLI) | payer OTHER ==
[~2017-12-20] VITALS: Ht 160 cm; Wt 81.6 kg
[~2017-12-20] MED LIST changes: +ALBU2.5V14 NEB; +ALBU8.5H6 IH; +AMOX250T PO; +AMOX500C PO; +ATOR10TA60 PO; +CALC-98 PO; +CHLO25TA PO; +CHOL10003 PO; +CYCL10TA2 PO; +CYCL5TAB PO; +ERGO500027 PO; +ERYT250C8 PO; +FLUT12AE IH; +FLUT16SP2 NS; +FURO40TA4 PO; +GUAI100L12 PO; +INSU100I13 SQ; +INSU100I17 SQ; +IRON1CAP14 PO; +LACT20SO PO; +LEVO25TA55 PO; -LIDOCAINE WITH 8.4% SOD BICARB 3 ML DISP.SYRIN.; -LIDOCAINE WITH 8.4% SOD BICARB 3 ML DISP.SYRIN. INJ; +LIDOCAINE WITH 8.4% SOD BICARB 3 ML DISP.SYRIN. ONE; +LISI2.5T PO; +LORA0.5T PO; +LORA1TAB PO; +NYST100054 PO; +OMEP20CA9 PO; +OXYC5TAB95 PO; +PITA2TAB2 PO; +RIFA550T4 PO; +SPIR25TA5 PO; +TRAM50TA PO; +[UNRECOGNIZED DRUG - CODE] PO
[2017-12-20 09:47] LABS: BASO % 1 % (0-3); EOS # 0.2 x10^3/uL (0.0-0.7); EOS % 2 % (0-3); HEMATOCRIT 29.3 % (36.0-47.0); HEMOGLOBIN 9.9 g/dL (12.0-15.5); LYMPH # 0.5 x10^3/uL (1.0-4.8); LYMPH % 5 % (24-48); MEAN CORPUSCULAR HEMOGLOBIN 29 pg (25-35); MEAN CORPUSCULAR HGB CONC 34 g/dL (31-37); MEAN CORPUSCULAR VOLUME 85 fL (79-100); MONO % 10 % (0-9); NEUT # 7.6 x10^3uL (1.8-7.7); NEUT % 82 % (31-73); PLATELET COUNT 155 x10^3/uL (140-400); RED BLOOD COUNT 3.47 x10^6/uL (3.50-5.40); RED CELL DISTRIBUTION WIDTH 23.2 % (11.5-14.5); WHITE BLOOD COUNT 9.3 x10^3/uL (4.0-11.0)
[2017-12-20 10:02] LABS: PROTHROMBIN TIME PATIENT 14.4 SEC (11.7-14.0)
[2017-12-20 10:24] VITALS: BP 113/46
[2017-12-20 11:31] LABS: CALCIUM 8.5 mg/dL (8.5-10.1); CREATININE 2.8 mg/dL (0.6-1.0); GFR 17.2; POTASSIUM 3.3 mmol/L (3.5-5.1)
[2017-12-20 11:37] LABS: ALBUMIN 2.6 g/dL (3.4-5.0); ALBUMIN/GLOBULIN RATIO 0.6 (1.0-1.7); TOTAL BILIRUBIN 0.6 mg/dL (0.2-1.0); TOTAL PROTEIN 7.1 g/dL (6.4-8.2)
[2017-12-20 11:50] LABS: ANISOCYTOSIS MOD; PLT ESTIMATE ADEQUATE (ADEQUATE)
[2017-12-20] MEDS: LIDOCAINE WITH 8.4% SOD BICARB 3 ML DISP.SYRIN. INJ ONE (12:57)
--- NOTE | 2017-12-20 16:44 | RAD ---
Ultrasound-guided paracentesis 12/20/2017 4:39 PM Procedure: The risks and benefits of the procedure were discussed the patient. Informed consent was obtained. A timeout procedure was performed. Sonographic evaluation of the abdomen was performed demonstrating ascites . The left lower quadrant was prepped and draped using maximum sterile barrier technique. 1% lidocaine without epinephrine was administered for local anesthesia. Real-time ultrasonographic guidance was used in passing a micropuncture needle into the peritoneal space. A guidewire was advanced into the peritoneal space followed by the inner dilator micropuncture kit. 100 cc of serous ascites was removed and sent for further evaluation.. The catheter was removed and pressure held to achieve hemostasis. A sterile dressing was applied. Impression: Ultrasound-guided diagnostic paracentesis
== END | disposition home or self-care (01) ==
LOC: INTRAD 08:52
PROVIDERS: ATTEND Internal Medicine Gastroenterology
DX: K74.60 Unspecified cirrhosis of liver (principal); R18.8 Other ascites; Z88.2 Allergy status to sulfonamides; Z88.1 Allergy status to other antibiotic agents; Z88.5 Allergy status to narcotic agent; Z88.8 Allergy status to other drugs, medicaments and biological substances; Z88.6 Allergy status to analgesic agent; E11.42 Type 2 diabetes mellitus with diabetic polyneuropathy; Z79.84 Long term (current) use of oral hypoglycemic drugs
CPT/HCPCS: 36415; 49083; 80053; 82140; 82962; 85025; 85610; C1892

== ENCOUNTER 2018-01-15 10:18 | Outpatient (CLI) | payer OTHER ==
[~2018-01-15] VITALS: Ht 162.6 cm; Wt 83.9 kg
[2018-01-15 10:54] VITALS: BP 104/49
[2018-01-15] MEDS ORDERED: LIDOCAINE WITH 8.4% SOD BICARB 3 ML DISP.SYRIN. IJ ONE (11:30)
[2018-01-15] MEDS ORDERED: ALBUMIN HUMAN 25% 100 ML IV ONE ×5 (11:30→12:34)
[2018-01-15 12:40] VITALS: BP 95/32
[2018-01-15 12:55] VITALS: BP 99/36
--- NOTE | 2018-01-15 12:58 | RAD ---
Ultrasound-guided paracentesis 01/15/2018 Procedure: The risks and benefits of the procedure were discussed the patient. Informed consent was obtained. A timeout procedure was performed. Sonographic evaluation of the abdomen was performed demonstrating ascites . The right lower quadrant was prepped and draped using maximum sterile barrier technique. 1% lidocaine without epinephrine was administered for local anesthesia. Real-time ultrasonographic guidance was used in passing a 5 [employer] [employer] catheter into the fluid collection. This was exchanged over a guidewire for an 8 Rwandan pigtail drain. 10 L of serous ascites was removed. The catheter was removed and pressure held to achieve hemostasis. A sterile dressing was applied. Impression: Successful ultrasound-guided paracentesis
== END 2018-01-15 13:08 | disposition home or self-care (01) ==
LOC: INTRAD 10:18
PROVIDERS: ATTEND Internal Medicine Gastroenterology
DX: R18.8 Other ascites (principal); Z88.2 Allergy status to sulfonamides; Z88.8 Allergy status to other drugs, medicaments and biological substances; Z88.1 Allergy status to other antibiotic agents; Z88.6 Allergy status to analgesic agent; Z88.5 Allergy status to narcotic agent
CPT/HCPCS: 49083; A4215; C1729; C1894; P9046

== ENCOUNTER 2018-01-24 06:07 | Outpatient (CLI) | payer OTHER ==
[2018-01-24] VITALS (7 sets, daily range): BP systolic 91–116; BP diastolic 37–67
[~2018-01-24] VITALS: Ht 162.6 cm; Wt 117.9 kg
[~2018-01-24 06:07] MED LIST changes: -IV RINGERS,LACTATED 1000ML 1,000 ML IV SCH; -LIDOCAINE 1% PF 2 ML VIAL. ID PRN; -LIDOCAINE 2% PF 2ML VIAL. ONE; -ONDANSETRON PF 4 MG/2 ML VIAL. IV PRN; -PROCHLORPERAZINE 10 MG/2 ML VIAL. IV PRN; -PROPOFOL 20 ML IV ONE; -fentaNYL PF VIAL 100 MCG/2 ML VIAL IV PRN
[2018-01-24] MEDS ORDERED: ALBUMIN HUMAN 25% 200 ML IV ONE (09:51)
[2018-01-24] MEDS ORDERED: ALBUMIN HUMAN 25% 100 ML IV ONE ×2 (10:00)
--- NOTE | 2018-01-24 14:27 | RAD ---
Ultrasound-guided paracentesis 01/24/2018 2:22 PM Procedure: The risks and benefits of the procedure were discussed the patient. Informed consent was obtained. A timeout procedure was performed. Sonographic evaluation of the abdomen was performed demonstrating ascites . The right lower quadrant was prepped and draped using maximum sterile barrier technique. 1% lidocaine without epinephrine was administered for local anesthesia. Real-time ultrasonographic guidance was used in passing a 5 Latvian Yueh catheter into the fluid collection. 8.3 L of serous ascites was removed. The catheter was removed and pressure held to achieve hemostasis. A sterile dressing was applied. Impression: Successful ultrasound-guided paracentesis
== END 2018-01-24 11:15 | disposition home or self-care (01) ==
LOC: INTRAD 06:07
PROVIDERS: ATTEND Internal Medicine Gastroenterology
DX: R18.8 Other ascites (principal); Z88.2 Allergy status to sulfonamides; Z88.1 Allergy status to other antibiotic agents; Z88.5 Allergy status to narcotic agent; Z88.6 Allergy status to analgesic agent; Z88.8 Allergy status to other drugs, medicaments and biological substances
CPT/HCPCS: 49083; C1729; C1894; P9046

== ENCOUNTER → 2018-01-24 | Day surgery (SDC) | payer OTHER ==
[~2018-01-24] MED LIST changes: +IV RINGERS,LACTATED 1000ML 1,000 ML IV SCH; +LIDOCAINE 1% PF 2 ML VIAL. ID PRN; +LIDOCAINE 2% PF 2ML VIAL. ONE; +ONDANSETRON PF 4 MG/2 ML VIAL. IV PRN; +PROCHLORPERAZINE 10 MG/2 ML VIAL. IV PRN; +PROPOFOL 20 ML IV ONE; +fentaNYL PF VIAL 100 MCG/2 ML VIAL IV PRN
[2018-01-24 07:53] VITALS: BP 108/55
--- NOTE | 2018-01-24 22:27 | HP ---
ADMIT DATE: 01/24/2018 HISTORY OF PRESENT ILLNESS: A 62-year-old female with past medical history significant for cirrhosis with DIAZ, complicated by varices and ascites, who was seen for interval EGD with variceal screening. The patient is on the [facility] liver transplant list and is being followed. She is having paracentesis now approximately every 2 weeks despite Aldactone therapy and sodium restriction. She has had intermittent episodes of encephalopathy, which has been controlled with medical therapy with lactulose and she is here today for surveillance of her varices. PAST MEDICAL HISTORY: Significant for hypertension, diabetes, hypothyroidism, history of cirrhosis and history of colonic polyps. ALLERGIES: Include SULFA, CEPHALOSPORIN, DOXYCYCLINE, ERYTHROMYCIN, NIACIN, IODINE, RIFAXIMIN and TRAMADOL. MEDICATIONS: Include albuterol, calcium, chlorthalidone, cholecalciferol, cyclobenzaprine, vitamin D, Flovent, guaifenesin, insulin, iron, lactulose, levothyroxine, lorazepam, nystatin, omeprazole and spironolactone. PAST SURGICAL HISTORY: Hysterectomy and tonsillectomy. SOCIAL HISTORY: She is 4, para 2. REVIEW OF SYSTEMS: Per records. FAMILY HISTORY: Negative for CVA with her mother, diabetes with her mother. She is a smoker and nondrinker. PHYSICAL EXAMINATION: GENERAL: Reveals a well-nourished, well-developed female who is alert and cooperative. VITAL SIGNS: Pulse 70 and respiratory rate is 18. HEENT: Normocephalic and atraumatic head. Pupils and extraocular muscles are not tested. Sclerae anicteric. NECK: Supple. LUNGS: Clear. CARDIOVASCULAR: Reveals S1 and S2 without S3, S4 or appreciable murmur. ABDOMEN: Soft abdomen. Normal bowel sounds without appreciable hepatosplenomegaly with a distended tummy. EXTREMITIES: Reveals no cyanosis, clubbing or edema. IMPRESSION: Cirrhosis with varices. Surveillance of varices recommended with potential banding of greater than grade 2 as per [facility]plant direction and continue medical therapy for her encephalopathy and ascites. RUEL WILCOX MD DR: ANTHONY/rebeka JOB#: [id number] / [id number] ecc VIANEY VU DO
== END | disposition home or self-care (01) ==
LOC: ENDOS 06:04
PROVIDERS: ATTEND Internal Medicine Gastroenterology
DX: I85.00 Esophageal varices without bleeding (principal); K29.50 Unspecified chronic gastritis without bleeding; I13.2 Hypertensive heart and chronic kidney disease with heart failure and with stage 5 chronic kidney disease, or end stage renal disease; E11.22 Type 2 diabetes mellitus with diabetic chronic kidney disease; N18.6 End stage renal disease; J44.9 Chronic obstructive pulmonary disease, unspecified; I50.9 Heart failure, unspecified; Z79.899 Other long term (current) drug therapy; Z79.4 Long term (current) use of insulin; Z88.6 Allergy status to analgesic agent; Z88.5 Allergy status to narcotic agent; Z88.8 Allergy status to other drugs, medicaments and biological substances; Z88.1 Allergy status to other antibiotic agents; Z88.2 Allergy status to sulfonamides; Z90.710 Acquired absence of both cervix and uterus; Z79.84 Long term (current) use of oral hypoglycemic drugs; Z91.041 Radiographic dye allergy status
CPT/HCPCS: 43235; 82962; J2001; J2704

== ENCOUNTER 2018-02-07 08:33 | Outpatient (CLI) | payer OTHER ==
[2018-02-07] VITALS (8 sets, daily range): BP systolic 104–124; BP diastolic 37–69
[~2018-02-07] VITALS: Ht 162.6 cm; Wt 95.3 kg
[2018-02-07 09:05] LABS: BASO # 0.1 x10^3/uL (0.0-0.2); BASO % 1 % (0-3); EOS # 0.2 x10^3/uL (0.0-0.7); EOS % 2 % (0-3); HEMATOCRIT 28.2 % (36.0-47.0); HEMOGLOBIN 9.5 g/dL (12.0-15.5); LYMPH # 0.7 x10^3/uL (1.0-4.8); LYMPH % 8 % (24-48); MEAN CORPUSCULAR HEMOGLOBIN 31 pg (25-35); MEAN CORPUSCULAR HGB CONC 34 g/dL (31-37); MEAN CORPUSCULAR VOLUME 90 fL (79-100); MONO # 0.6 x10^3/uL (0.0-1.1); MONO % 6 % (0-9); NEUT # 7.5 x10^3uL (1.8-7.7); NEUT % 83 % (31-73); PLATELET COUNT 169 x10^3/uL (140-400); RED BLOOD COUNT 3.12 x10^6/uL (3.50-5.40); RED CELL DISTRIBUTION WIDTH 19.8 % (11.5-14.5)
[2018-02-07] MEDS ORDERED: RIFA550T4 PO (09:05)
[2018-02-07 09:14] LABS: PROTHROMBIN TIME PATIENT 14.1 SEC (11.7-14.0)
[2018-02-07] MEDS ORDERED: ALBUMIN HUMAN 25% 200 ML IV ONE (10:49)
[2018-02-07] MEDS ORDERED: ALBUMIN HUMAN 25% 100 ML IV ONE ×2 (11:00)
--- NOTE | 2018-02-07 13:13 | RAD ---
Procedure: Ultrasound guided paracentesis Clinical Indication: 62-year-old with recurrent abdominal ascites Sedation: Local anesthesia only Antibiotics: None Fluoro Time: None Contrast: Not applicable Sterility: The procedure was performed in its entirety using appropriate elements of sterile technique. Consent: The procedure was explained in its entirety to the patient or the patients designated workforce services representative by a member of the treatment team, including a discussion of the risks, benefits and commonly accepted alternatives to the procedure, as well as the expected consequences of no therapy whatsoever. Discussion of the risks included, but was not limited to, those that are most frequent and those that are rare but possibly severe or life-threatening, as well as the possibility of unforeseen complications. Technique and Findings: Following informed consent, the patient was prepped and draped in the usual sterile fashion. Ultrasound interrogation of the abdomen revealed abdominal ascites. A hard copy ultrasound image was recorded. 1% Lidocaine was used to achieve local anesthesia over the area of interest, and a 6 Malian [employer] catheter was advanced into the peritoneal cavity under ultrasound guidance. 9700 cc of thin smitha ascites was then withdrawn. The catheter was removed and hemostasis was achieved with manual compression. Complications: No immediate Impression: 1. Ultrasound-guided paracentesis as described
== END 2018-02-07 12:43 | disposition home or self-care (01) ==
LOC: INTRAD 08:33
PROVIDERS: ATTEND Internal Medicine Gastroenterology
DX: K70.31 Alcoholic cirrhosis of liver with ascites (principal); I13.2 Hypertensive heart and chronic kidney disease with heart failure and with stage 5 chronic kidney disease, or end stage renal disease; E11.22 Type 2 diabetes mellitus with diabetic chronic kidney disease; N18.6 End stage renal disease; I50.9 Heart failure, unspecified; K29.50 Unspecified chronic gastritis without bleeding; Z79.01 Long term (current) use of anticoagulants; Z90.710 Acquired absence of both cervix and uterus; Z88.6 Allergy status to analgesic agent; Z88.5 Allergy status to narcotic agent; Z88.1 Allergy status to other antibiotic agents; Z88.8 Allergy status to other drugs, medicaments and biological substances; Z88.2 Allergy status to sulfonamides; J44.9 Chronic obstructive pulmonary disease, unspecified; Z79.84 Long term (current) use of oral hypoglycemic drugs; Z79.4 Long term (current) use of insulin; Z79.899 Other long term (current) drug therapy; Z91.041 Radiographic dye allergy status
CPT/HCPCS: 36415; 49083; 85025; 85610; 85730; P9046

== ENCOUNTER 2018-02-21 08:34 | Outpatient (CLI) | payer OTHER ==
[~2018-02-21] VITALS: Ht 162.6 cm; Wt 77.1 kg
[2018-02-21 08:55] VITALS: BP 113/52
[2018-02-21 09:15] LABS: BASO # 0.1 x10^3/uL (0.0-0.2); BASO % 1 % (0-3); EOS # 0.4 x10^3/uL (0.0-0.7); EOS % 4 % (0-3); HEMATOCRIT 26.9 % (36.0-47.0); LYMPH # 0.7 x10^3/uL (1.0-4.8); LYMPH % 8 % (24-48); MEAN CORPUSCULAR HEMOGLOBIN 30 pg (25-35); MEAN CORPUSCULAR HGB CONC 34 g/dL (31-37); MEAN CORPUSCULAR VOLUME 90 fL (79-100); MONO # 0.9 x10^3/uL (0.0-1.1); MONO % 10 % (0-9); NEUT # 6.6 x10^3uL (1.8-7.7); NEUT % 77 % (31-73); PLATELET COUNT 232 x10^3/uL (140-400); RED BLOOD COUNT 2.98 x10^6/uL (3.50-5.40); RED CELL DISTRIBUTION WIDTH 18.6 % (11.5-14.5); WHITE BLOOD COUNT 8.6 x10^3/uL (4.0-11.0)
[2018-02-21] MEDS ORDERED: AMOX250C PO (09:29)
[2018-02-21 09:31] LABS: PROTHROMBIN TIME PATIENT 13.4 SEC (11.7-14.0)
[2018-02-21 09:35] LABS: CALCIUM 9.2 mg/dL (8.5-10.1); CREATININE 3.6 mg/dL (0.6-1.0); GFR 12.9; POTASSIUM 4.5 mmol/L (3.5-5.1)
[2018-02-21 09:49] LABS: ALBUMIN 2.7 g/dL (3.4-5.0); ALBUMIN/GLOBULIN RATIO 0.6 (1.0-1.7); TOTAL BILIRUBIN 0.5 mg/dL (0.2-1.0); TOTAL PROTEIN 7.5 g/dL (6.4-8.2)
[2018-02-21] MEDS ORDERED: LIDOCAINE WITH 8.4% SOD BICARB 3 ML DISP.SYRIN. ONE (09:51)
[2018-02-21 10:30] VITALS: BP 109/55
[2018-02-21] MEDS ORDERED: ALBUMIN HUMAN 25% 100 ML IV ONE ×2 (10:40→11:00)
[2018-02-21 10:45] VITALS: BP 115/45
[2018-02-21 10:57] VITALS: BP 119/45
--- NOTE | 2018-02-21 12:49 | RAD ---
Ultrasound-guided paracentesis 02/21/2018 12:45 PM Procedure: The risks and benefits of the procedure were discussed the patient. Informed consent was obtained. A timeout procedure was performed. Sonographic evaluation of the abdomen was performed demonstrating ascites . The right lower quadrant was prepped and draped using maximum sterile barrier technique. 1% lidocaine without epinephrine was administered for local anesthesia. Real-time ultrasonographic guidance was used in passing a 5 Montenegrin Yueh catheter into the fluid collection. 6 L of serous ascites was removed. The catheter was removed and pressure held to achieve hemostasis. A sterile dressing was applied. Impression: Successful ultrasound-guided paracentesis
== END 2018-02-21 11:38 | disposition home or self-care (01) ==
LOC: INTRAD 08:34
PROVIDERS: ATTEND Internal Medicine Gastroenterology
DX: R18.8 Other ascites (principal); Z88.2 Allergy status to sulfonamides; Z88.1 Allergy status to other antibiotic agents; Z88.5 Allergy status to narcotic agent; Z88.8 Allergy status to other drugs, medicaments and biological substances; Z88.6 Allergy status to analgesic agent
CPT/HCPCS: 36415; 49083; 80053; 82140; 83735; 84436; 84443; 85025; 85610; P9046

== ENCOUNTER 2018-03-04 11:02 | Outpatient (CLI) | payer OTHER ==
[~2018-03-04 11:02] MED LIST changes: +AMOX250C PO
--- NOTE | 2018-03-04 15:43 | RAD ---
Procedure: Ultrasound and fluoroscopically guided placement of right internal jugular power port.. 03/04/2018 3:38 PM Clinical Indication: Long-term central venous access Sedation: Conscious sedation was administered for 30 minutes. The patient was monitored by a qualified independent observer throughout the time of sedation. Please refer to the medical record for exact doses of medications utilized to achieve moderate sedation. Fluoroscopy time: 0.9 minutes Dose area product: 2 Gycm2 Consent: The procedure was explained in its entirety to the patient or the patients designated housing management representative by a member of the treatment team, including a discussion of the risks, benefits and commonly accepted alternatives to the procedure, as well as the expected consequences of no therapy whatsoever. Discussion of the risks included, but was not limited to, those that are most frequent and those that are rare but possibly severe or life-threatening, as well as the possibility of unforeseen complications. Technique and Findings: All elements of maximal sterile barrier technique including the use of a cap, mask, sterile gown, sterile gloves, large sterile sheet, appropriate hand hygiene, and 2% chlorhexidine for cutaneous antisepsis (or acceptable alternative antiseptic per current guidelines) were followed for this procedure. Following informed consent, and a timeout procedure, the patient was prepped and draped in the usual sterile fashion. Ultrasound interrogation of the right neck revealed patency and compressibility of the right internal jugular vein. A 21-gauge micropuncture was then used to gain access to this vein under ultrasound guidance. A hard copy ultrasound image was recorded. The needle was exchanged over a wire for a sheath. A 1 inch incision was made several centimeters inferior to the venotomy site. A catheter was tunneled from this site dermatotomy site in the neck. Catheter was advanced through peel-away sheath such that its tip was in the proximal right atrium with the patient supine. The catheter was trimmed to length and connected to the port reservoir. The port was found to flush and aspirate normally. The wound was closed in layers using 4-0 Vicryl suture. Sterile dressings were applied. Impression: Successful ultrasound and fluoroscopically guided placement of a right internal jugular PowerPort
== END 2018-03-04 15:15 | disposition home or self-care (01) ==
LOC: INTRAD 11:02
PROVIDERS: ATTEND General Practice
DX: Z45.2 Encounter for adjustment and management of vascular access device (principal); I10 Essential (primary) hypertension; Z88.2 Allergy status to sulfonamides; Z88.5 Allergy status to narcotic agent; Z88.8 Allergy status to other drugs, medicaments and biological substances; Z79.01 Long term (current) use of anticoagulants; Z79.899 Other long term (current) drug therapy
CPT/HCPCS: 36561; 76937; 77001; 80048; 85025; 85610; 85730; 99152; 99153; C1729; C1769; C1788; C1892; C1751

== ENCOUNTER 2018-03-04 11:05 | Outpatient (CLI) | payer OTHER ==
[~2018-03-04] VITALS: Ht 162.6 cm; Wt 81.6 kg
[2018-03-04 11:40] VITALS: BP 112/54
[2018-03-04 12:09] LABS: BASO # 0.1 x10^3/uL (0.0-0.2); BASO % 1 % (0-3); EOS # 0.2 x10^3/uL (0.0-0.7); EOS % 2 % (0-3); HEMATOCRIT 25.7 % (36.0-47.0); HEMOGLOBIN 8.6 g/dL (12.0-15.5); LYMPH # 0.6 x10^3/uL (1.0-4.8); LYMPH % 6 % (24-48); MEAN CORPUSCULAR HEMOGLOBIN 31 pg (25-35); MEAN CORPUSCULAR HGB CONC 33 g/dL (31-37); MEAN CORPUSCULAR VOLUME 92 fL (79-100); MONO # 0.8 x10^3/uL (0.0-1.1); MONO % 9 % (0-9); NEUT # 7.3 x10^3uL (1.8-7.7); NEUT % 82 % (31-73); PLATELET COUNT 204 x10^3/uL (140-400); RED CELL DISTRIBUTION WIDTH 18.6 % (11.5-14.5)
[2018-03-04] MEDS ORDERED: VANCOMYCIN 1GM IVPB FOR OMNI 250 ML ONE (12:28)
[2018-03-04] MEDS ORDERED: LIDOCAINE 1%/EPI 1:100,000 20 ML VIAL. ONE (12:29)
[2018-03-04 12:30] LABS: PROTHROMBIN TIME PATIENT 13.9 SEC (11.7-14.0)
[2018-03-04 12:33] LABS: CALCIUM 8.8 mg/dL (8.5-10.1); CREATININE 3.2 mg/dL (0.6-1.0); GFR 14.7; POTASSIUM 4.8 mmol/L (3.5-5.1)
[2018-03-04] MEDS ORDERED: ALBUMIN HUMAN 25% 100 ML IV ONE ×4 (12:45→13:55)
[2018-03-04] MEDS ORDERED: fentaNYL PF VIAL 100 MCG/2 ML VIAL ONE (12:45)
[2018-03-04] MEDS ORDERED: MIDAZOLAM HCL/PF 2 MG/2 ML VIAL. ONE (12:45)
[2018-03-04] MEDS ORDERED: MIDAZOLAM HCL/PF 2 MG/2 ML VIAL. IV ONE (13:15)
[2018-03-04] MEDS ORDERED: LIDOCAINE 1%/EPI 1:100,000 20 ML VIAL. IJ ONE (13:15)
[2018-03-04] MEDS ORDERED: VANCOMYCIN 1GM IVPB FOR OMNI 250 ML IV ONE (13:15)
[2018-03-04] MEDS ORDERED: fentaNYL PF VIAL 100 MCG/2 ML VIAL IV ONE (13:15)
[2018-03-04 14:02] VITALS: BP 98/46
[2018-03-04 14:10] VITALS: BP 110/62
[2018-03-04] MEDS ORDERED: HEPARIN PF 500 UNIT/5 ML DISP.SYRIN. IV ONE ×2 (14:18→14:45)
--- NOTE | 2018-03-04 15:45 | RAD ---
Ultrasound-guided paracentesis 03/04/2018 3:40 PM Procedure: The risks and benefits of the procedure were discussed the patient. Informed consent was obtained. A timeout procedure was performed. Sonographic evaluation of the abdomen was performed demonstrating ascites . The right lower quadrant was prepped and draped using maximum sterile barrier technique. 1% lidocaine without epinephrine was administered for local anesthesia. Real-time ultrasonographic guidance was used in passing a 5 Uzbek [employer] catheter into the fluid collection. This was exchanged over a guidewire for an 8 Uzbek multiside hole catheter. 12 L of serous ascites was removed. The catheter was removed and pressure held to achieve hemostasis. A sterile dressing was applied. Impression: Successful ultrasound-guided paracentesis
== END 2018-03-04 15:16 | disposition home or self-care (01) ==
LOC: INTRAD 11:05
PROVIDERS: ATTEND Internal Medicine Gastroenterology
DX: K74.60 Unspecified cirrhosis of liver (principal); D64.9 Anemia, unspecified
CPT/HCPCS: 36415; 49083; A4215; J2250; J3010; J3370; J3490; P9046; 76937; 77001; 80048; 85025; 85610; 85730; 99152; 99153; C1729

== ENCOUNTER 2018-03-19 08:54 | Outpatient (CLI) | payer OTHER ==
[2018-03-19] VITALS (13 sets, daily range): BP systolic 95–130; BP diastolic 37–46
[~2018-03-19] VITALS: Ht 162.6 cm; Wt 77.1 kg
[~2018-03-19 08:54] MED LIST changes: +OXYC5TAB4 PO; -OXYC5TAB95 PO
[2018-03-19] MEDS ORDERED: ALBUMIN HUMAN 25% 100 ML IV ONE ×4 (10:11→12:00)
[2018-03-19] MEDS ORDERED: ACETAMINOPHEN 500 MG TABLET PO ONE (11:45)
--- NOTE | 2018-03-19 11:46 | RAD ---
Ultrasound-guided paracentesis 03/19/2018 Procedure: The risks and benefits of the procedure were discussed the patient. Informed consent was obtained. A timeout procedure was performed. Sonographic evaluation of the abdomen was performed demonstrating ascites . The right lower quadrant was prepped and draped using maximum sterile barrier technique. 1% lidocaine without epinephrine was administered for local anesthesia. Real-time ultrasonographic guidance was used in passing a 5 Icelandic [employer] catheter into the fluid collection. This was exchanged over a guidewire for an 8 Icelandic multiside hole catheter. 13.4 L of serous ascites was removed. The catheter was removed and pressure held to achieve hemostasis. A sterile dressing was applied. Impression: Successful ultrasound-guided paracentesis
[2018-03-19] MEDS ORDERED: HEPARIN PF 500 UNIT/5 ML DISP.SYRIN. IV ONE ×2 (12:03→12:15)
== END 2018-03-19 12:35 | disposition home or self-care (01) ==
LOC: INTRAD 08:54
PROVIDERS: ATTEND Internal Medicine Gastroenterology
DX: K74.60 Unspecified cirrhosis of liver (principal)
CPT/HCPCS: 49083; A4215; C1729; P9046

== ENCOUNTER 2018-03-28 09:15 | Outpatient (CLI) | payer OTHER ==
[2018-03-28] VITALS (9 sets, daily range): BP systolic 102–126; BP diastolic 41–66
[~2018-03-28] VITALS: Ht 162.6 cm; Wt 77.1 kg
[~2018-03-28 09:15] MED LIST changes: -CHLO25TA PO; +CHLO25TA10 PO
[2018-03-28] MEDS ORDERED: ALBUMIN HUMAN 25% 100 ML IV ONE ×3 (11:00→11:03)
--- NOTE | 2018-03-28 12:36 | RAD ---
Ultrasound-guided paracentesis 03/28/2018 12:32 PM Procedure: The risks and benefits of the procedure were discussed the patient. Informed consent was obtained. A timeout procedure was performed. Sonographic evaluation of the abdomen was performed demonstrating ascites . The right lower quadrant was prepped and draped using maximum sterile barrier technique. 1% lidocaine without epinephrine was administered for local anesthesia. Real-time ultrasonographic guidance was used in passing a 5 Slovenian [employer] catheter into the fluid collection. This was exchanged over a guidewire for an 8 Slovenian pigtail drain. 9.6 L of serous ascites was removed. The catheter was removed and pressure held to achieve hemostasis. A sterile dressing was applied. Impression: Successful ultrasound-guided paracentesis
== END 2018-03-28 11:55 | disposition home or self-care (01) ==
LOC: INTRAD 09:15
PROVIDERS: ATTEND Internal Medicine Gastroenterology
DX: R18.8 Other ascites (principal); Z88.2 Allergy status to sulfonamides; Z88.1 Allergy status to other antibiotic agents; Z88.5 Allergy status to narcotic agent; Z88.6 Allergy status to analgesic agent; Z88.8 Allergy status to other drugs, medicaments and biological substances
CPT/HCPCS: 49083; A4215; C1729; C1894; P9046

== ENCOUNTER 2018-04-08 08:58 | Outpatient (CLI) | payer OTHER ==
[~2018-04-08] VITALS: Ht 162.6 cm; Wt 77.1 kg
[2018-04-08] VITALS (7 sets, daily range): BP systolic 110–121; BP diastolic 36–59
[2018-04-08 09:45] LABS: BASO # 0.1 x10^3/uL (0.0-0.2); BASO % 1 % (0-3); EOS # 0.3 x10^3/uL (0.0-0.7); EOS % 3 % (0-3); LYMPH # 0.8 x10^3/uL (1.0-4.8); LYMPH % 10 % (24-48); MEAN CORPUSCULAR HEMOGLOBIN 30 pg (25-35); MEAN CORPUSCULAR HGB CONC 33 g/dL (31-37); MEAN CORPUSCULAR VOLUME 91 fL (79-100); MONO # 0.9 x10^3/uL (0.0-1.1); MONO % 11 % (0-9); NEUT # 5.9 x10^3uL (1.8-7.7); NEUT % 74 % (31-73); PLATELET COUNT 117 x10^3/uL (140-400); RED BLOOD COUNT 2.13 x10^6/uL (3.50-5.40); RED CELL DISTRIBUTION WIDTH 16.8 % (11.5-14.5)
[2018-04-08 09:57] LABS: HEMOGLOBIN 6.4 g/dL (12.0-15.5)
[2018-04-08 09:58] LABS: HEMATOCRIT 19.3 % (36.0-47.0); PROTHROMBIN TIME PATIENT 14.7 SEC (11.7-14.0)
[2018-04-08] MEDS ORDERED: LIDOCAINE WITH 8.4% SOD BICARB 3 ML DISP.SYRIN. ONE (11:21)
[2018-04-08] MEDS ORDERED: LIDOCAINE WITH 8.4% SOD BICARB 3 ML DISP.SYRIN. INJ ONE (11:30)
[2018-04-08] MEDS ORDERED: ALBUMIN HUMAN 25% 50 ML IV ONE (12:00)
[2018-04-08] MEDS ORDERED: ALBUMIN HUMAN 25% 100 ML IV ONE ×2 (12:01→12:14)
--- NOTE | 2018-04-08 15:03 | RAD ---
Procedure: Ultrasound guided paracentesis Clinical Indication: 62-year-old with recurrent abdominal ascites Sedation: Local anesthesia only Antibiotics: None Fluoro Time: None Contrast: Not applicable Sterility: The procedure was performed in its entirety using appropriate elements of sterile technique. Consent: The procedure was explained in its entirety to the patient or the patients designated open claims representative by a member of the treatment team, including a discussion of the risks, benefits and commonly accepted alternatives to the procedure, as well as the expected consequences of no therapy whatsoever. Discussion of the risks included, but was not limited to, those that are most frequent and those that are rare but possibly severe or life-threatening, as well as the possibility of unforeseen complications. Technique and Findings: Following informed consent, the patient was prepped and draped in the usual sterile fashion. Ultrasound interrogation of the abdomen revealed abdominal ascites. A hard copy ultrasound image was recorded. 1% Lidocaine was used to achieve local anesthesia over the area of interest, and a 6 Algerian Lapi-T-Wzwghrbm catheter was advanced into the peritoneal cavity under ultrasound guidance. 8800 cc of thin yellow ascites was then withdrawn. The catheter was removed and hemostasis was achieved with manual compression. Complications: No immediate Impression: 1. Ultrasound-guided paracentesis as described
== END 2018-04-08 14:07 ==
LOC: INTRAD 08:58
PROVIDERS: ATTEND Internal Medicine Gastroenterology
DX: R18.8 Other ascites (principal)
CPT/HCPCS: 36415; 49083; 85025; 85610; C1892

== ENCOUNTER 2018-04-18 08:50 | Outpatient (CLI) | payer OTHER ==
[~2018-04-18] VITALS: Ht 162.6 cm; Wt 77.1 kg
[2018-04-18] VITALS (13 sets, daily range): BP systolic 82–110; BP diastolic 32–56
[2018-04-18 09:24] LABS: BASO # 0.1 x10^3/uL (0.0-0.2); BASO % 1 % (0-3); EOS # 0.1 x10^3/uL (0.0-0.7); EOS % 2 % (0-3); HEMATOCRIT 24.1 % (36.0-47.0); HEMOGLOBIN 8.1 g/dL (12.0-15.5); LYMPH # 0.7 x10^3/uL (1.0-4.8); LYMPH % 12 % (24-48); MEAN CORPUSCULAR HEMOGLOBIN 30 pg (25-35); MEAN CORPUSCULAR HGB CONC 34 g/dL (31-37); MEAN CORPUSCULAR VOLUME 89 fL (79-100); MONO # 0.5 x10^3/uL (0.0-1.1); MONO % 7 % (0-9); NEUT # 4.8 x10^3uL (1.8-7.7); NEUT % 78 % (31-73); PLATELET COUNT 99 x10^3/uL (140-400); RED BLOOD COUNT 2.72 x10^6/uL (3.50-5.40); RED CELL DISTRIBUTION WIDTH 17.1 % (11.5-14.5); WHITE BLOOD COUNT 6.2 x10^3/uL (4.0-11.0)
[2018-04-18 09:45] LABS: PROTHROMBIN TIME PATIENT 14.8 SEC (11.7-14.0)
[2018-04-18] MEDS ORDERED: ALBUMIN HUMAN 25% 100 ML IV ONE ×6 (09:49→11:45)
[2018-04-18] MEDS ORDERED: LORazepam 1 MG TABLET PO ONE (10:30)
--- NOTE | 2018-04-18 11:50 | RAD ---
Ultrasound-guided paracentesis 03/28/2018 12:32 PM Procedure: The risks and benefits of the procedure were discussed the patient. Informed consent was obtained. A timeout procedure was performed. Sonographic evaluation of the abdomen was performed demonstrating ascites . The left lower quadrant was prepped and draped using maximum sterile barrier technique. 1% lidocaine without epinephrine was administered for local anesthesia. Real-time ultrasonographic guidance was used in passing a 5 Stateless [employer] catheter into the peritoneum.. This was exchanged over a guidewire for an 8 Stateless pigtail drain. 10 L of serous ascites was removed. The catheter was removed and pressure held to achieve hemostasis. A sterile dressing was applied. Impression: Successful ultrasound-guided paracentesis
--- NOTE | 2018-04-18 12:48 | NUR ---
pt was requesting pain meds or something due to abd cramps with paracentesis. gave pt ativan 1mg po. pt became very drowsy b/p dropped to 80's. discussed this with Dr. Wilkinson. pt's b/p had been at her normal baseline which is 90-110's prior to ativan. allowed pt to sleep some and then upon arousal she was alert and b/p was better. d/c instructions reviewed . out to vehicle per w/c- her son to drive her home.
== END 2018-04-18 12:50 | disposition home or self-care (01) ==
LOC: INTRAD 08:50
PROVIDERS: ATTEND Internal Medicine Gastroenterology
DX: R18.8 Other ascites (principal); K74.60 Unspecified cirrhosis of liver
CPT/HCPCS: 36415; 49083; 85025; 85610; C1729; P9046

== ENCOUNTER → 2018-05-01 | Outpatient (CLI) | payer OTHER ==
[2018-05-01] VITALS (8 sets, daily range): BP systolic 106–136; BP diastolic 49–67
[~2018-05-01] VITALS: Ht 162.6 cm; Wt 75.3 kg
[~2018-05-01] MED LIST changes: +ALBUMIN HUMAN 25% 100 ML IV ONE; +ALBUMIN HUMAN 25% 200 ML IV ONE; +DOXY100C2 PO; +OMEP40CA5 PO
[2018-05-01 11:04] LABS: HEMATOCRIT 21.6 % (36.0-47.0); HEMOGLOBIN 7.1 g/dL (12.0-15.5)
[2018-05-01 11:28] LABS: ALBUMIN 3.3 g/dL (3.4-5.0); CALCIUM 8.4 mg/dL (8.5-10.1); CREATININE 3.2 mg/dL (0.6-1.0); GFR 14.7; PHOSPHORUS 4.3 mg/dL (2.6-4.7)
[2018-05-01 19:15] LABS: CALCIUM PTH 8.7 mg/dL (8.7-10.3); CREATININE PTH 2.83 mg/dL (0.57-1.00); PHOSPHORUS PTH 4.3 mg/dL (2.5-4.5); PTH INTACT 155 pg/mL (15-65)
--- NOTE | 2018-05-02 14:04 | RAD ---
Ultrasound-guided paracentesis 03/28/2018 12:32 PM Procedure: The risks and benefits of the procedure were discussed the patient. Informed consent was obtained. A timeout procedure was performed. Sonographic evaluation of the abdomen was performed demonstrating ascites . The left lower quadrant was prepped and draped using maximum sterile barrier technique. 1% lidocaine without epinephrine was administered for local anesthesia. Real-time ultrasonographic guidance was used in passing a 5 Romanian [employer] catheter into the peritoneum.. This was exchanged over a guidewire for an 8 Romanian pigtail drain. 15 L of serous ascites was removed. The catheter was removed and pressure held to achieve hemostasis. A sterile dressing was applied. Impression: Successful ultrasound-guided paracentesis
== END | disposition home or self-care (01) ==
LOC: INTRAD 08:46
PROVIDERS: ATTEND Internal Medicine Gastroenterology
DX: K74.60 Unspecified cirrhosis of liver (principal); R18.8 Other ascites; Z88.2 Allergy status to sulfonamides; Z88.1 Allergy status to other antibiotic agents; Z88.5 Allergy status to narcotic agent; Z88.8 Allergy status to other drugs, medicaments and biological substances
CPT/HCPCS: 36415; 49083; 80069; 82306; 83970; 85014; 85018; A4215; C1729; P9046

== ENCOUNTER 2018-05-12 10:14 | Outpatient (CLI) | payer MEDICAID, OTHER ==
[2018-05-12] VITALS (9 sets, daily range): BP systolic 92–127; BP diastolic 44–86
[~2018-05-12] VITALS: Ht 162.6 cm; Wt 76.2 kg
[2018-05-12] MEDS ORDERED: ALBUMIN HUMAN 25% 200 ML IV ONE (11:36)
[2018-05-12] MEDS ORDERED: ALBUMIN HUMAN 25% 100 ML IV ONE ×4 (12:00→12:27)
[2018-05-12] MEDS ORDERED: HEPARIN PF 500 UNIT/5 ML DISP.SYRIN. IV ONE ×2 (12:45→12:55)
--- NOTE | 2018-05-13 11:46 | RAD ---
Ultrasound-guided paracentesis 05.12.18 Procedure: The risks and benefits of the procedure were discussed the patient. Informed consent was obtained. A timeout procedure was performed. Sonographic evaluation of the abdomen was performed demonstrating ascites . The left lower quadrant was prepped and draped using maximum sterile barrier technique. 1% lidocaine without epinephrine was administered for local anesthesia. Real-time ultrasonographic guidance was used in passing a 5 Kinyarwanda [employer]eh catheter into the peritoneum.. This was exchanged over a guidewire for an 8 Kinyarwanda pigtail drain. 13.5 L of serous ascites was removed. The catheter was removed and pressure held to achieve hemostasis. A sterile dressing was applied. Impression: Successful ultrasound-guided paracentesis
== END 2018-05-12 13:35 | disposition home or self-care (01) ==
LOC: INTRAD 10:14
PROVIDERS: ATTEND Internal Medicine Gastroenterology
DX: K74.60 Unspecified cirrhosis of liver (principal); R18.8 Other ascites; Z88.2 Allergy status to sulfonamides; Z88.8 Allergy status to other drugs, medicaments and biological substances; Z88.6 Allergy status to analgesic agent; Z88.1 Allergy status to other antibiotic agents
CPT/HCPCS: 49083; A4215; C1729; P9046

== ENCOUNTER → 2018-05-12 | Outpatient (CLI) | payer MEDICAID ==
[2018-05-01 11:00] VITALS: BP 106/50
[~2018-05-12] MED LIST changes: -ALBUMIN HUMAN 25% 100 ML IV ONE; -ALBUMIN HUMAN 25% 200 ML IV ONE
[2018-05-12 11:32] LABS: BASO # 0.1 x10^3/uL (0.0-0.2); BASO % 1 % (0-3); EOS # 0.2 x10^3/uL (0.0-0.7); EOS % 3 % (0-3); HEMATOCRIT 24.1 % (36.0-47.0); HEMOGLOBIN 8.3 g/dL (12.0-15.5); LYMPH # 0.6 x10^3/uL (1.0-4.8); LYMPH % 9 % (24-48); MEAN CORPUSCULAR HEMOGLOBIN 30 pg (25-35); MEAN CORPUSCULAR HGB CONC 35 g/dL (31-37); MEAN CORPUSCULAR VOLUME 88 fL (79-100); MONO # 0.8 x10^3/uL (0.0-1.1); MONO % 11 % (0-9); NEUT # 5.7 x10^3uL (1.8-7.7); NEUT % 77 % (31-73); PLATELET COUNT 169 x10^3/uL (140-400); RED BLOOD COUNT 2.75 x10^6/uL (3.50-5.40); RED CELL DISTRIBUTION WIDTH 16.3 % (11.5-14.5); WHITE BLOOD COUNT 7.4 x10^3/uL (4.0-11.0)
[2018-05-12 12:05] LABS: ALBUMIN 2.6 g/dL (3.4-5.0); CALCIUM 8.6 mg/dL (8.5-10.1); CREATININE 4.1 mg/dL (0.6-1.0); GFR 11.1; PHOSPHORUS 5.7 mg/dL (2.6-4.7); POTASSIUM 3.4 mmol/L (3.5-5.1)
== END | disposition home or self-care (01) ==
LOC: LAB 10:18
PROVIDERS: ATTEND Nurse Practitioner Adult Health
DX: I12.9 Hypertensive chronic kidney disease with stage 1 through stage 4 chronic kidney disease, or unspecified chronic kidney disease (principal); N18.4 Chronic kidney disease, stage 4 (severe); N17.9 Acute kidney failure, unspecified; E87.6 Hypokalemia; D63.1 Anemia in chronic kidney disease; K75.81 Nonalcoholic steatohepatitis (NASH); Z68.32 Body mass index [BMI] 32.0-32.9, adult
CPT/HCPCS: 36415; 80069; 82728; 83540; 83550; 85025

== ENCOUNTER 2018-05-30 02:40 | Inpatient (IN) | payer OTHER ==
[~2018-05-30] VITALS: Ht 161.3 cm; Wt 80.3 kg
[~2018-05-30 02:40] MED LIST changes: +OMEP20CA10 PO; -OMEP20CA9 PO
[2018-05-30 03:20] LABS: BASO # 0.1 x10^3/uL (0.0-0.2); BASO % 1 % (0-3); EOS # 0.2 x10^3/uL (0.0-0.7); EOS % 2 % (0-3); HEMATOCRIT 22.1 % (36.0-47.0); HEMOGLOBIN 7.2 g/dL (12.0-15.5); LYMPH # 0.5 x10^3/uL (1.0-4.8); LYMPH % 6 % (24-48); MEAN CORPUSCULAR HEMOGLOBIN 28 pg (25-35); MEAN CORPUSCULAR HGB CONC 33 g/dL (31-37); MEAN CORPUSCULAR VOLUME 86 fL (79-100); MONO # 0.5 x10^3/uL (0.0-1.1); MONO % 6 % (0-9); NEUT # 7.1 x10^3uL (1.8-7.7); NEUT % 84 % (31-73); PLATELET COUNT 72 x10^3/uL (140-400); RED BLOOD COUNT 2.59 x10^6/uL (3.50-5.40); RED CELL DISTRIBUTION WIDTH 16.2 % (11.5-14.5); WHITE BLOOD COUNT 8.4 x10^3/uL (4.0-11.0)
[2018-05-30 03:34] LABS: ALBUMIN 2.3 g/dL (3.4-5.0); ALBUMIN/GLOBULIN RATIO 0.6 (1.0-1.7); GFR 5.1; POTASSIUM 3.4 mmol/L (3.5-5.1); TOTAL BILIRUBIN 0.6 mg/dL (0.2-1.0); TOTAL PROTEIN 6.4 g/dL (6.4-8.2)
--- NOTE | 2018-05-30 04:22 | PHYS DOC ---
Past Medical History Past Medical History: COPD, Diabetes-Type II, Liver Disease, Renal Disease Additional Past Medical Histor: neuropathy,gallstones,non etoh cirossis Past Surgical History: Hysterectomy Additional Past Surgical Histo: esophogeal banding after esoph. varacies. PORT PLACEMENT R CHEST Alcohol Use: None Drug Use: None Adult General Chief Complaint Chief Complaint: BLOODY STOOL [facility] HPI Patient is a 62 year old female with history of cirrhosis, end-stage renal disease, esophageal varices with GI bleed presents with maroon colored stools, starting last night. Patient also reports nausea with diarrhea. Reports chronic abdominal pain and distention secondary to ascites. Denies increased shortness of breath, fever, chills, sweats. Patient is not on anticoagulation therapy. No hematemesis coffee-ground emesis. No other acute symptoms or complaints. [] Review of Systems Review of Systems ROS as per HPI All other systems were reviewed and found to be within normal limits, except as documented in this note. Allergies Allergies Allergies Coded Allergies Type Severity Reaction Last Updated Verified Sulfa (Sulfonamide Antibiotics) Allergy Severe Swelling 04/24/18 Yes cephalexin Allergy Severe Anaphylaxis 05/22/18 Yes doxycycline Allergy Intermediate 04/24/18 Yes insulin detemir Allergy Intermediate Rash 04/24/18 Yes morphine Allergy Intermediate rash 04/24/18 Yes niacin Allergy Intermediate Rash 04/24/18 Yes oxycodone Allergy Intermediate rash 04/24/18 Yes povidone-iodine Allergy Intermediate It 04/24/18 Yes rifaximin Allergy Intermediate Itching 04/24/18 Yes tramadol Allergy Intermediate Rash 04/24/18 Yes I S O L A T I O N *CONTACT* Allergy Unknown 04/24/18 Yes codeine Adverse Reaction Intermediate Nausea and Vomiting 04/24/18 Yes erythromycin base Adverse Reaction Intermediate Diarrhea 04/24/18 Yes Physical Exam Physical Exam Constitutional: Well developed, well nourished, no acute distress, non-toxic appearance. [] HENT: Normocephalic, atraumatic, bilateral external ears normal, oropharynx moist, no oral exudates, nose normal. [] Eyes: PERRLA, EOMI. [] Neck: Normal range of motion. [] Cardiovascular:Heart rate regular rhythm, no murmur [] Lungs & Thorax: Bilateral breath sounds clear to auscultation, diminished at bases. [] Abdomen: Bowel sounds normal, soft, massive ascites. [] Skin: Warm, dry, no erythema, no rash. [] Back: No tenderness. [] Extremities: No tenderness, B lower extremity edema. [] Neurologic: Alert and oriented X 3, normal motor function, normal sensory function, no focal deficits noted. [] Psychologic: Affect normal, judgement normal, mood normal. [] Current Patient Data Vital Signs Vital Signs Date Time Temp Pulse Resp B/P (MAP) Pulse Ox O2 Delivery O2 Flow Rate FiO2 05/30/18 03:20 96 18 110/54 (72) 100 Room Air 05/30/18 02:41 97.5 97.5 Lab Values Laboratory Tests Test 05/30/18 03:10 White Blood Count 8.4 x10^3/uL (4.0-11.0) Red Blood Count 2.59 x10^6/uL (3.50-5.40) L Hemoglobin 7.2 g/dL (12.0-15.5) L Hematocrit 22.1 % (36.0-47.0) L Mean Corpuscular Volume 86 fL (79-100) Mean Corpuscular Hemoglobin 28 pg (25-35) Mean Corpuscular Hemoglobin Concent 33 g/dL (31-37) Red Cell Distribution Width 16.2 % (11.5-14.5) H Platelet Count 72 x10^3/uL (140-400) L Neutrophils (%) (Auto) 84 % (31-73) H Lymphocytes (%) (Auto) 6 % (24-48) L Monocytes (%) (Auto) 6 % (0-9) Eosinophils (%) (Auto) 2 % (0-3) Basophils (%) (Auto) 1 % (0-3) Neutrophils # (Auto) 7.1 x10^3uL (1.8-7.7) Lymphocytes # (Auto) 0.5 x10^3/uL (1.0-4.8) L Monocytes # (Auto) 0.5 x10^3/uL (0.0-1.1) Eosinophils # (Auto) 0.2 x10^3/uL (0.0-0.7) Basophils # (Auto) 0.1 x10^3/uL (0.0-0.2) Sodium Level 133 mmol/L (136-145) L Potassium Level 3.4 mmol/L (3.5-5.1) L Chloride Level 99 mmol/L (98-107) Carbon Dioxide Level 11 mmol/L (21-32) *L Anion Gap 23 (6-14) H Blood Urea Nitrogen 106 mg/dL (7-20) H Creatinine 8.0 mg/dL (0.6-1.0) H Estimated GFR (Cockcroft-Gault) 5.1 BUN/Creatinine Ratio 13 (6-20) Glucose Level 153 mg/dL (70-99) H Calcium Level 9.0 mg/dL (8.5-10.1) Total Bilirubin 0.6 mg/dL (0.2-1.0) Aspartate Amino Transferase (AST) 29 U/L (15-37) Alanine Aminotransferase (ALT) 20 U/L (14-59) Alkaline Phosphatase 191 U/L (46-116) H Total Protein 6.4 g/dL (6.4-8.2) Albumin 2.3 g/dL (3.4-5.0) L Albumin/Globulin Ratio 0.6 (1.0-1.7) L Laboratory Tests 05/30/18 03:10 Laboratory Tests 05/30/18 03:10 EKG EKG [EKG: reviewed] Radiology/Procedures Radiology/Procedures [] Course & Med Decision Making Course & Med Decision Making Pertinent Labs and Imaging studies reviewed. (See chart for details) [Anemia thrombocytopenia and nausea. Recent troponins hemoglobin. Will admit to the hospitalist service for further observation and treatment.] Dragon Disclaimer Dragon Disclaimer This electronic medical record was generated, in whole or in part, using a voice recognition dictation system. Departure Departure Impression: Primary Impression: Lower GI bleed Additional Impressions: Anemia Thrombocytopenia Disposition: ADMITTED INPATIENT Admitting Physician: Other (Dr. Costa) Condition: STABLE Referrals: VIANEY VU DO (PCP) Problem Qualifiers FERNANDO PAULINO DO May 30, 2018 04:22
[2018-05-30] MEDS ORDERED: ONDANSETRON PF 4 MG/2 ML VIAL. IV PRN (04:30)
[2018-05-30] MEDS ORDERED: fentaNYL PF VIAL 100 MCG/2 ML VIAL IV PRN (04:30)
[2018-05-30 05:37] LABS: PROTHROMBIN TIME PATIENT 15.4 SEC (11.7-14.0)
[2018-05-30 05:54] VITALS: BP 106/45
--- NOTE | 2018-05-30 06:12 | EKG ---
[facility] [address] [place] [address] Test Date: 2018-05-30 Test Time: 02:50:49 Pat Name: YANIRA BRAVO Department: Room: 260 1 Gender: F Official Court Interpreter: : [id number] Requested By: DANA PHAN Order Number: [id number] Reading MD: Dariusz Fritz MD Measurements Intervals [place] Rate: 97 P: -56 DC: 124 QRS: 37 QRSD: 86 T: 5 QT: 262 QTc: 335 Interpretive Statements SINUS RHYTHM BASELINE ARTIFACT NON-SPECIFIC ST/T CHANGES Electronically Signed On 06-05-2018 9:08:19 [employer] by Dariusz Fritz MD
[2018-05-30 07:00] VITALS: BP 96/38
[2018-05-30] MEDS: fentaNYL PF VIAL 100 MCG/2 ML VIAL IV PRN ×3 (08:38→23:54)
--- NOTE | 2018-05-30 09:44 | PDOC ---
Subjective: Subjective: Please see GI consult/progress notes from this month and last. H/o ESLD (DIAZ), recurrent ascites/paracentesis, PVT, hepatic encephalopathy, esophageal varices, CKD w/ worsening labs, chronic anemia requiring transfusion. Tells me diarrhea at home w/ recent antibiotic use for UTI (last admission). Then yesterday stool "looked black and I could tell it was red." Tells me she ate breakfast and vomited this morning. Per RN, has been NPO and not vomited. Has phlegm in her throat that is making it sore. Objective: Vital Signs: Vital Signs Date Time Temp Pulse Resp B/P (MAP) Pulse Ox O2 Delivery O2 Flow Rate FiO2 05/30/18 08:38 18 Room Air 2.0 05/30/18 07:00 97.6 101 96/38 (57) 97 97.6 Labs: Laboratory Tests Test 05/30/18 03:10 05/30/18 05:14 05/30/18 07:16 White Blood Count 8.4 x10^3/uL Red Blood Count 2.59 x10^6/uL Hemoglobin 7.2 g/dL Hematocrit 22.1 % Mean Corpuscular Volume 86 fL Mean Corpuscular Hemoglobin 28 pg Mean Corpuscular Hemoglobin Concent 33 g/dL Red Cell Distribution Width 16.2 % Platelet Count 72 x10^3/uL Neutrophils (%) (Auto) 84 % Lymphocytes (%) (Auto) 6 % Monocytes (%) (Auto) 6 % Eosinophils (%) (Auto) 2 % Basophils (%) (Auto) 1 % Neutrophils # (Auto) 7.1 x10^3uL Lymphocytes # (Auto) 0.5 x10^3/uL Monocytes # (Auto) 0.5 x10^3/uL Eosinophils # (Auto) 0.2 x10^3/uL Basophils # (Auto) 0.1 x10^3/uL Sodium Level 133 mmol/L Potassium Level 3.4 mmol/L Chloride Level 99 mmol/L Carbon Dioxide Level 11 mmol/L Anion Gap 23 Blood Urea Nitrogen 106 mg/dL Creatinine 8.0 mg/dL Estimated GFR (Cockcroft-Gault) 5.1 BUN/Creatinine Ratio 13 Glucose Level 153 mg/dL Calcium Level 9.0 mg/dL Total Bilirubin 0.6 mg/dL Aspartate Amino Transf (AST/SGOT) 29 U/L Alanine Aminotransferase (ALT/SGPT) 20 U/L Alkaline Phosphatase 191 U/L Total Protein 6.4 g/dL Albumin 2.3 g/dL Albumin/Globulin Ratio 0.6 Prothrombin Time 15.4 SEC Prothromb Time International Ratio 1.3 Activated Partial Thromboplast Time 36 SEC Glucose (Fingerstick) 175 mg/dL PE: GEN: NAD LUNGS: CTAB HEART: RRR ABD: NABS, S/ND/NT NEURO/PSYCH: A & O �3 A/P: ESLD ?GI bleeding - last EGD 04/2017 w/ Grade 1 varices and gastritis ARIANA/CKD Chronic anemia, thrombocytopenia -- Poor historian, no family present - she has a son and brother who have been here with her in the past. Will ask for paracentesis and check ammonia. Monitor labs and for bleeding - Hgb stable by comparison. Nephrology to see. ?diarrhea - can check C Diff if so w/ recent atbx use Will ask for palliative care discussion re: hepatorenal syndrome - fatal without liver transplant - transfer declined last admission, she has also left AMA from in the past, concern for non-compliance, etc. MELD 25. JENNIE ABRAMS May 30, 2018 09:44
--- NOTE | 2018-05-30 09:45 | NUR ---
IP: Pt has a hx of vre in urine on 12/20/17. Pt has one negative urine on 05/19/18. Pt to be in contact precautions until a second urine culture is verified without antibiotics.
--- NOTE | 2018-05-30 10:10 | PDOC2 ---
CONSULT Date of Consult Date of Consult DATE: 05/30/18 TIME: 09:49 Reason for Consult Reason for Consult: ARIANA on CKD Identification/Chief Complaint Chief Complaint "My son noticed dark stools and some blood" History of Present Illness Reason for Visit: 62-year-old female with a known diagnosis of Boyle. She has CKD 1.5 in September to 3.2 in February 2018. She has been seen in our office x1 by RN post vilma.Multiple hospitalizations- In Apr 2018 for UTI, ARIANA , Increase in Ascites x 2 . She Undergoes Paracentesis as OP at [facility] She is hospitalized with c/o dark stools and blood - noticed by her son. She states she feels her abdomen is distended. No pain. Denies any SOB Denies N/VD.No f/c Past Medical History Cardiovascular: HTN, Hyperlipidemia Pulmonary: Asthma, COPD, Other CENTRAL NERVOUS SYSTEM: Periperal neuropathy GI: GERD, GI bleed, Other Heme/Onc: Other Hepatobiliary: Other Psych: Anxiety, Depression Musculoskeletal: Osteoarthritis Renal/: No pertinent hx Endocrine: Diabetes, Hypothyroidism Past Surgical History Past Surgical History: Hysterectomy Family History Family History: High Cholestrol, Family History Unknown Social History ALCOHOL: none Drugs: None Current Problem List Problem List Problems Medical Problems: (1) Anemia Status: Acute (2) Lower GI bleed Status: Acute (3) Thrombocytopenia Status: Acute Current Medications Current Medications Current Medications Ondansetron HCl (Zofran) 4 mg PRN Q8HRS PRN IV NAUSEA/VOMITING Last administered on 05/30/18at 04:49; Start 05/30/18 at 04:30; Stop 05/31/18 at 04:29 Fentanyl Citrate (Fentanyl 2ml Vial) 25 mcg Q2HR W/A PRN IV PAIN Last administered on 05/30/18at 04:50; Start 05/30/18 at 04:30; Stop 05/30/18 at 04:52; Status DC Fentanyl Citrate (Fentanyl 2ml Vial) 25 mcg PRN Q2HRS PRN IV PAIN Q2HRS W/A Last administered on 05/30/18at 08:38; Start 05/30/18 at 05:00 Pantoprazole Sodium (Protonix) 40 mg DAILYAC PO ; Start 05/30/18 at 11:30 Rifaximin (Xifaxan) 550 mg Q12HR PO ; Start 05/30/18 at 21:00; Status UNV Lactulose (Lactulose) 20 gm BID PO ; Start 05/30/18 at 10:00 Active Scripts Active Reported Omeprazole 40 Mg Capsule. 1 Cap PO DAILY Doxycycline Hyclate 100 Mg Capsule 1 Cap PO BID Xifaxan (Rifaximin) 550 Mg Tablet 1 Tab PO BID Nystatin 100,000 Unit/1 Ml Oral.susp 5 Ml PO QID Fusion Plus Capsule (Iron,Fum&Ps/Fa/Vit B&C#18/L.ca) 1 Each Capsule 1 Each PO Albuterol Sulfate Conc Neb Soln (Albuterol Sulfate) 2.5 Mg/0.5 Ml Vial.neb 2.5 Mg NEB Q6HRS PRN Lactulose 20 Gm/30 Ml Solution 20 Gm PO TID Lantus Solostar (Insulin Glargine,Hum.rec.anlog) 100 Unit/1 Ml Insuln.pen 0 SQ HS SSI Calcium + Vitamin D Tablet (Calcium Carbonate/Vitamin D3) 1 Each Tablet 1 Each PO Albuterol Sulfate Hfa Inhaler (Albuterol Sulfate) 8.5 Gm Hfa.aer.ad 8.5 Gm IH Novolog Flexpen (Insulin Aspart) 100 Unit/1 Ml Insuln.pen 0 SQ TIDAC ssi Synthroid (Levothyroxine Sodium) 25 Mcg Tablet 300 Mcg PO DAILY Flovent 110MCG Hfa (Fluticasone Propionate) 12 Gm Aer.w.adap 12 Gm IH Allergies Allergies: Coded Allergies: Sulfa (Sulfonamide Antibiotics) (Verified Allergy, Severe, Swelling, ) tongue swelling, rash cephalexin (Verified Allergy, Severe, Anaphylaxis, 05/22/18) TOLERATES AMOX, ZOSYN doxycycline (Verified Allergy, Intermediate, 04/24/18) insulin detemir (Verified Allergy, Intermediate, Rash, 04/24/18) morphine (Verified Allergy, Intermediate, rash, 04/24/18) niacin (Verified Allergy, Intermediate, Rash, 04/24/18) edema oxycodone (Verified Allergy, Intermediate, rash, 04/24/18) povidone-iodine (Verified Allergy, Intermediate, It, 04/24/18) rifaximin (Verified Allergy, Intermediate, Itching, 04/24/18) tramadol (Verified Allergy, Intermediate, Rash, 04/24/18) I S O L A T I O N *CONTACT* (Verified Allergy, Unknown, 04/24/18) VRE - urine 12/20/17 codeine (Verified Adverse Reaction, Intermediate, Nausea and Vomiting, 04/24) erythromycin base (Verified Adverse Reaction, Intermediate, Diarrhea, ) ROS Review of System As per HPI Physical Exam Physical Exam GEN: NAD HEEN: Mucous Membranes dry NECK: supple CVS: S1S2, soft Murmur, No Gallop, No Rub RESP: CTA bilat, no Acc. 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 Suspect due to diabetic nephrosclerosis/ESLD 24 UR pr <200 Acidosis : Bicarb Low IVF with Bicarb Anemia: splenomegaly associated with liver failure and Kidney failure Liver failure and ascites: Defer to GI specialists. Paracentesis today as per GI has ESLD w/ recurrent ascites/paracentesis, encephalopathy/hyperammonemia, chronic anemia. EGD 04/24/18: grade 1 varices, gastritis UTI- Recent UTI Was on Abx as per ID Discussed Plan of Care and prognosis etc. at length with Pt (again this admn) and RN I have discussed this with her son as well during her last hospitalization Labs Labs Laboratory Tests Test 05/30/18 03:10 05/30/18 05:14 05/30/18 07:16 White Blood Count 8.4 x10^3/uL (4.0-11.0) Red Blood Count 2.59 x10^6/uL (3.50-5.40) Hemoglobin 7.2 g/dL (12.0-15.5) Hematocrit 22.1 % (36.0-47.0) Mean Corpuscular Volume 86 fL (79-100) Mean Corpuscular Hemoglobin 28 pg (25-35) Mean Corpuscular Hemoglobin Concent 33 g/dL (31-37) Red Cell Distribution Width 16.2 % (11.5-14.5) Platelet Count 72 x10^3/uL (140-400) Neutrophils (%) (Auto) 84 % (31-73) Lymphocytes (%) (Auto) 6 % (24-48) Monocytes (%) (Auto) 6 % (0-9) Eosinophils (%) (Auto) 2 % (0-3) Basophils (%) (Auto) 1 % (0-3) Neutrophils # (Auto) 7.1 x10^3uL (1.8-7.7) Lymphocytes # (Auto) 0.5 x10^3/uL (1.0-4.8) Monocytes # (Auto) 0.5 x10^3/uL (0.0-1.1) Eosinophils # (Auto) 0.2 x10^3/uL (0.0-0.7) Basophils # (Auto) 0.1 x10^3/uL (0.0-0.2) Sodium Level 133 mmol/L (136-145) Potassium Level 3.4 mmol/L (3.5-5.1) Chloride Level 99 mmol/L (98-107) Carbon Dioxide Level 11 mmol/L (21-32) Anion Gap 23 (6-14) Blood Urea Nitrogen 106 mg/dL (7-20) Creatinine 8.0 mg/dL (0.6-1.0) Estimated GFR (Cockcroft-Gault) 5.1 BUN/Creatinine Ratio 13 (6-20) Glucose Level 153 mg/dL (70-99) Calcium Level 9.0 mg/dL (8.5-10.1) Total Bilirubin 0.6 mg/dL (0.2-1.0) Aspartate Amino Transf (AST/SGOT) 29 U/L (15-37) Alanine Aminotransferase (ALT/SGPT) 20 U/L (14-59) Alkaline Phosphatase 191 U/L (46-116) Total Protein 6.4 g/dL (6.4-8.2) Albumin 2.3 g/dL (3.4-5.0) Albumin/Globulin Ratio 0.6 (1.0-1.7) Prothrombin Time 15.4 SEC (11.7-14.0) Prothromb Time International Ratio 1.3 (0.8-1.1) Activated Partial Thromboplast Time 36 SEC (24-38) Glucose (Fingerstick) 175 mg/dL (70-99) Laboratory Tests Test 05/30/18 03:10 05/30/18 05:14 05/30/18 07:16 White Blood Count 8.4 x10^3/uL (4.0-11.0) Red Blood Count 2.59 x10^6/uL (3.50-5.40) Hemoglobin 7.2 g/dL (12.0-15.5) Hematocrit 22.1 % (36.0-47.0) Mean Corpuscular Volume 86 fL (79-100) Mean Corpuscular Hemoglobin 28 pg (25-35) Mean Corpuscular Hemoglobin Concent 33 g/dL (31-37) Red Cell Distribution Width 16.2 % (11.5-14.5) Platelet Count 72 x10^3/uL (140-400) Neutrophils (%) (Auto) 84 % (31-73) Lymphocytes (%) (Auto) 6 % (24-48) Monocytes (%) (Auto) 6 % (0-9) Eosinophils (%) (Auto) 2 % (0-3) Basophils (%) (Auto) 1 % (0-3) Neutrophils # (Auto) 7.1 x10^3uL (1.8-7.7) Lymphocytes # (Auto) 0.5 x10^3/uL (1.0-4.8) Monocytes # (Auto) 0.5 x10^3/uL (0.0-1.1) Eosinophils # (Auto) 0.2 x10^3/uL (0.0-0.7) Basophils # (Auto) 0.1 x10^3/uL (0.0-0.2) Sodium Level 133 mmol/L (136-145) Potassium Level 3.4 mmol/L (3.5-5.1) Chloride Level 99 mmol/L (98-107) Carbon Dioxide Level 11 mmol/L (21-32) Anion Gap 23 (6-14) Blood Urea Nitrogen 106 mg/dL (7-20) Creatinine 8.0 mg/dL (0.6-1.0) Estimated GFR (Cockcroft-Gault) 5.1 BUN/Creatinine Ratio 13 (6-20) Glucose Level 153 mg/dL (70-99) Calcium Level 9.0 mg/dL (8.5-10.1) Total Bilirubin 0.6 mg/dL (0.2-1.0) Aspartate Amino Transf (AST/SGOT) 29 U/L (15-37) Alanine Aminotransferase (ALT/SGPT) 20 U/L (14-59) Alkaline Phosphatase 191 U/L (46-116) Total Protein 6.4 g/dL (6.4-8.2) Albumin 2.3 g/dL (3.4-5.0) Albumin/Globulin Ratio 0.6 (1.0-1.7) Prothrombin Time 15.4 SEC (11.7-14.0) Prothromb Time International Ratio 1.3 (0.8-1.1) Activated Partial Thromboplast Time 36 SEC (24-38) Glucose (Fingerstick) 175 mg/dL (70-99) Review All relevant outside records, renal labs, imaging studies, telemetry/EKG's were reviewed. DARLING SHORT MD May 30, 2018 10:10
--- NOTE | 2018-05-30 10:15 | PDOC1 ---
History and Physical Date of Admission Date of Admission DATE: 05/30/18 TIME: 09:51 Identification/Chief Complaint Chief Complaint bloody stools Problems: (1) Renal failure (2) Liver failure (3) End stage renal disease (4) Lower GI bleed Source Source: Chart review, Patient History of Present Illness History of Present Illness 62 y/o female w/ h/o ESLD (DIAZ) MELD 25, ?GI bleeding - last EGD 04/2017 w/ Grade 1 varices and gastriti, recurrent ascites requiring paracentesis, portal vein thrombosis, hyperammonemia who reports diarrhea at home with recent abx use (treated for UTI last admission). also with reported bloody stools. patient reportedly ate breakfast and vomited this AM. at last hospitalization request made to transfer to for transplant considerations but patient left AMA. reports taking meds as prescribed. frequent admissions for paracentesis and blood transfusions. Denies shortness of breath, fever, chills, sweats. No hematemesis coffee-ground emesis. No other complaints. hospitalist called for admission and further eval. pertinent labs in ED: Hb 7.2 (7.7 last admission). creatine 8.0 (4.5 last admission). plt 72k. INR 1.3 Past Medical History Cardiovascular: HTN, Hyperlipidemia Pulmonary: Asthma, COPD, Other CENTRAL NERVOUS SYSTEM: Periperal neuropathy GI: GERD, GI bleed, Other Heme/Onc: Other Hepatobiliary: Other Psych: Anxiety, Depression Musculoskeletal: Osteoarthritis Renal/: No pertinent hx Endocrine: Diabetes, Hypothyroidism Past Surgical History Past Surgical History: Hysterectomy Family History Family History: High Cholestrol, Family History Unknown Social History ALCOHOL: none Drugs: None Current Problem List Problem List Problems Medical Problems: (1) Anemia Status: Acute (2) Lower GI bleed Status: Acute (3) Thrombocytopenia Status: Acute Current Medications Current Medications Current Medications Ondansetron HCl (Zofran) 4 mg PRN Q8HRS PRN IV NAUSEA/VOMITING Last administered on 05/30/18at 04:49; Start 05/30/18 at 04:30; Stop 05/31/18 at 04:29 Fentanyl Citrate (Fentanyl 2ml Vial) 25 mcg Q2HR W/A PRN IV PAIN Last administered on 05/30/18at 04:50; Start 05/30/18 at 04:30; Stop 05/30/18 at 04:52; Status DC Fentanyl Citrate (Fentanyl 2ml Vial) 25 mcg PRN Q2HRS PRN IV PAIN Q2HRS W/A Last administered on 05/30/18at 08:38; Start 05/30/18 at 05:00 Pantoprazole Sodium (Protonix) 40 mg DAILYAC PO ; Start 05/30/18 at 11:30 Rifaximin (Xifaxan) 550 mg Q12HR PO ; Start 05/30/18 at 21:00; Status UNV Lactulose (Lactulose) 20 gm BID PO ; Start 05/30/18 at 10:00 Active Scripts Active Reported Omeprazole 40 Mg Capsule.dr 1 Cap PO DAILY Doxycycline Hyclate 100 Mg Capsule 1 Cap PO BID Xifaxan (Rifaximin) 550 Mg Tablet 1 Tab PO BID Nystatin 100,000 Unit/1 Ml Oral.susp 5 Ml PO QID Fusion Plus Capsule (Iron,Fum&Ps/Fa/Vit B&C#18/L.ca) 1 Each Capsule 1 Each PO Albuterol Sulfate Conc Neb Soln (Albuterol Sulfate) 2.5 Mg/0.5 Ml Vial.neb 2.5 Mg NEB Q6HRS PRN Lactulose 20 Gm/30 Ml Solution 20 Gm PO TID Lantus Solostar (Insulin Glargine,Hum.rec.anlog) 100 Unit/1 Ml Insuln.pen 0 SQ HS SSI Calcium + Vitamin D Tablet (Calcium Carbonate/Vitamin D3) 1 Each Tablet 1 Each PO Albuterol Sulfate Hfa Inhaler (Albuterol Sulfate) 8.5 Gm Hfa.aer.ad 8.5 Gm IH Novolog Flexpen (Insulin Aspart) 100 Unit/1 Ml Insuln.pen 0 SQ TIDAC ssi Synthroid (Levothyroxine Sodium) 25 Mcg Tablet 300 Mcg PO DAILY Flovent 110MCG Hfa (Fluticasone Propionate) 12 Gm Aer.w.adap 12 Gm IH Allergies Allergies: Coded Allergies: Sulfa (Sulfonamide Antibiotics) (Verified Allergy, Severe, Swelling, ) tongue swelling, rash cephalexin (Verified Allergy, Severe, Anaphylaxis, 05/22/18) TOLERATES AMOX, ZOSYN doxycycline (Verified Allergy, Intermediate, 04/24/18) insulin detemir (Verified Allergy, Intermediate, Rash, 04/24/18) morphine (Verified Allergy, Intermediate, rash, 04/24/18) niacin (Verified Allergy, Intermediate, Rash, 04/24/18) edema oxycodone (Verified Allergy, Intermediate, rash, 04/24/18) povidone-iodine (Verified Allergy, Intermediate, It, 04/24/18) rifaximin (Verified Allergy, Intermediate, Itching, 04/24/18) tramadol (Verified Allergy, Intermediate, Rash, 04/24/18) I S O L A T I O N *CONTACT* (Verified Allergy, Unknown, 04/24/18) VRE - urine 12/20/17 codeine (Verified Adverse Reaction, Intermediate, Nausea and Vomiting, 04/24) erythromycin base (Verified Adverse Reaction, Intermediate, Diarrhea, ) ROS Review of System CONSTITUTIONAL: No fever or chills EYES: No recent changes SKIN: No rash or itching CARDIOVASCULAR: No chest pain, syncope, palpitations, or edema RESPIRATORY: No SOB or cough GASTROINTESTINAL: No nausea, vomiting or abdominal pain NEUROLOGICAL: No headaches or weakness ENDOCRINE: No cold or heat intolerance GENITOURINARY: No urgency or frequency of urination MUSCULOSKELETAL: No back pain or joint pain LYMPHATICS: No enlarged lymph nodes PSYCHIATRIC: No anxiety or depression Physical Exam Physical Exam GENERAL: No apparent distress. Alert and oriented. HEENT: Head normocephalic, atraumatic. NECK: Supple LUNGS: Clear to auscultation. HEART: RRR, S1, S2 present, pulses intact ABDOMEN: distended, + ascites EXTREMITIES: No cyanosis or edema. NEUROLOGIC: Normal speech, normal tone PSYCHIATRIC: Normal affect, normal mood. SKIN: No ulceration. Vitals Vitals Vital Signs Date Time Temp Pulse Resp B/P (MAP) Pulse Ox O2 Delivery O2 Flow Rate FiO2 05/30/18 08:38 18 Room Air 2.0 05/30/18 07:00 97.6 101 96/38 (57) 97 97.6 Labs Labs Laboratory Tests Test 05/30/18 03:10 05/30/18 05:14 05/30/18 07:16 White Blood Count 8.4 x10^3/uL (4.0-11.0) Red Blood Count 2.59 x10^6/uL (3.50-5.40) Hemoglobin 7.2 g/dL (12.0-15.5) Hematocrit 22.1 % (36.0-47.0) Mean Corpuscular Volume 86 fL (79-100) Mean Corpuscular Hemoglobin 28 pg (25-35) Mean Corpuscular Hemoglobin Concent 33 g/dL (31-37) Red Cell Distribution Width 16.2 % (11.5-14.5) Platelet Count 72 x10^3/uL (140-400) Neutrophils (%) (Auto) 84 % (31-73) Lymphocytes (%) (Auto) 6 % (24-48) Monocytes (%) (Auto) 6 % (0-9) Eosinophils (%) (Auto) 2 % (0-3) Basophils (%) (Auto) 1 % (0-3) Neutrophils # (Auto) 7.1 x10^3uL (1.8-7.7) Lymphocytes # (Auto) 0.5 x10^3/uL (1.0-4.8) Monocytes # (Auto) 0.5 x10^3/uL (0.0-1.1) Eosinophils # (Auto) 0.2 x10^3/uL (0.0-0.7) Basophils # (Auto) 0.1 x10^3/uL (0.0-0.2) Sodium Level 133 mmol/L (136-145) Potassium Level 3.4 mmol/L (3.5-5.1) Chloride Level 99 mmol/L (98-107) Carbon Dioxide Level 11 mmol/L (21-32) Anion Gap 23 (6-14) Blood Urea Nitrogen 106 mg/dL (7-20) Creatinine 8.0 mg/dL (0.6-1.0) Estimated GFR (Cockcroft-Gault) 5.1 BUN/Creatinine Ratio 13 (6-20) Glucose Level 153 mg/dL (70-99) Calcium Level 9.0 mg/dL (8.5-10.1) Total Bilirubin 0.6 mg/dL (0.2-1.0) Aspartate Amino Transf (AST/SGOT) 29 U/L (15-37) Alanine Aminotransferase (ALT/SGPT) 20 U/L (14-59) Alkaline Phosphatase 191 U/L (46-116) Total Protein 6.4 g/dL (6.4-8.2) Albumin 2.3 g/dL (3.4-5.0) Albumin/Globulin Ratio 0.6 (1.0-1.7) Prothrombin Time 15.4 SEC (11.7-14.0) Prothromb Time International Ratio 1.3 (0.8-1.1) Activated Partial Thromboplast Time 36 SEC (24-38) Glucose (Fingerstick) 175 mg/dL (70-99) Laboratory Tests Test 05/30/18 03:10 05/30/18 05:14 05/30/18 07:16 White Blood Count 8.4 x10^3/uL (4.0-11.0) Red Blood Count 2.59 x10^6/uL (3.50-5.40) Hemoglobin 7.2 g/dL (12.0-15.5) Hematocrit 22.1 % (36.0-47.0) Mean Corpuscular Volume 86 fL (79-100) Mean Corpuscular Hemoglobin 28 pg (25-35) Mean Corpuscular Hemoglobin Concent 33 g/dL (31-37) Red Cell Distribution Width 16.2 % (11.5-14.5) Platelet Count 72 x10^3/uL (140-400) Neutrophils (%) (Auto) 84 % (31-73) Lymphocytes (%) (Auto) 6 % (24-48) Monocytes (%) (Auto) 6 % (0-9) Eosinophils (%) (Auto) 2 % (0-3) Basophils (%) (Auto) 1 % (0-3) Neutrophils # (Auto) 7.1 x10^3uL (1.8-7.7) Lymphocytes # (Auto) 0.5 x10^3/uL (1.0-4.8) Monocytes # (Auto) 0.5 x10^3/uL (0.0-1.1) Eosinophils # (Auto) 0.2 x10^3/uL (0.0-0.7) Basophils # (Auto) 0.1 x10^3/uL (0.0-0.2) Sodium Level 133 mmol/L (136-145) Potassium Level 3.4 mmol/L (3.5-5.1) Chloride Level 99 mmol/L (98-107) Carbon Dioxide Level 11 mmol/L (21-32) Anion Gap 23 (6-14) Blood Urea Nitrogen 106 mg/dL (7-20) Creatinine 8.0 mg/dL (0.6-1.0) Estimated GFR (Cockcroft-Gault) 5.1 BUN/Creatinine Ratio 13 (6-20) Glucose Level 153 mg/dL (70-99) Calcium Level 9.0 mg/dL (8.5-10.1) Total Bilirubin 0.6 mg/dL (0.2-1.0) Aspartate Amino Transf (AST/SGOT) 29 U/L (15-37) Alanine Aminotransferase (ALT/SGPT) 20 U/L (14-59) Alkaline Phosphatase 191 U/L (46-116) Total Protein 6.4 g/dL (6.4-8.2) Albumin 2.3 g/dL (3.4-5.0) Albumin/Globulin Ratio 0.6 (1.0-1.7) Prothrombin Time 15.4 SEC (11.7-14.0) Prothromb Time International Ratio 1.3 (0.8-1.1) Activated Partial Thromboplast Time 36 SEC (24-38) Glucose (Fingerstick) 175 mg/dL (70-99) VTE Prophylaxis Ordered VTE Prophylaxis Devices: No VTE Pharmacological Prophylaxi: Yes Assessment/Plan Assessment/Plan ASSESSMENT 1. Toxic metabolic encephalopathy secondary to end-stage liver disease.MELD 25, secondary to elevated ammonia 2. Liver Cirrhosis secondary to DIAZ, status post previous paracentesis. now with profound ascites. unable to tolerate diuretics given creatine 3. Hypertension, BP stable 4. Hyperlipidemia. 5. Rhwfe-ra-rcvisvo renal disease. admission creatine 8.0. prior creatine 4.5. secondary to hepatorenal syndrome 6 hx noncompliance 7. ESOPHAGEAL VARICES, last EGD 04/2017 w/ Grade 1 varices and gastritis 8. Bloody Stools and Diarrhea, recent abx use 9. ANEMIA, BASELINE HGB APPROX 8.5, s/p previous transfusions 10. Thrombocytopenia secondary to Liver Failure 11. Right Port in place PLAN: admit to medical tele bed GI consulted IR consult for paracentesis nephro consult given rise in creatine consider transfusion if Hb drops further follow BMP, CBC, coags daily check c diff given diarrhea palliative care consult given poor prognosis TEDDY PERALES MD May 30, 2018 10:15
[2018-05-30 11:30] VITALS: BP 107/36
--- NOTE | 2018-05-30 13:10 | PDOC2 ---
PALLIATIVE CARE Palliative Care Note Palliative Care Consult requested by Mray Martin (GI) to discussed goals of care. Medical Assessment per medical record; ESLD, now with hepatorenal syndrome; GI bleed. Patient to have temporary dialysis catheter placed today. Patient is alert and oriented. Is able to provide medical information. Reviewed her medical condition. Indicates she wants to continue to pursue aggressive care including transplant. "I don't want to " Patient provided contact numbers for her children. Spoke with Tre. Reviewed information. He agrees with his mother's wish to pursue aggressive care. States he has called [facility] and is waiting for return call about transfer. Discussed Code Status; Patient wants Full Code. Informed of risk and benefits. Spoke with Alma JHA who is working on options for transfer to facility that will take [place] Medicaid and is able to do Liver Transplant. Will continue to follow. Await input from Alma JHA regarding transfer. EDE HOLCOMB May 30, 2018 13:09
[2018-05-30] MEDS ORDERED: LIDOCAINE WITH 8.4% SOD BICARB 3 ML DISP.SYRIN. INJ ONE (13:15)
[2018-05-30] MEDS ORDERED: ALBUMIN HUMAN 25% 100 ML IV ONE ×3 (13:30→15:00)
[2018-05-30] MEDS: PANTOPRAZOLE 40 MG TABLET.DR. PO SCH (14:17)
[2018-05-30] MEDS: rifAXIMin 550 MG TABLET PO SCH ×2 (14:17→20:53)
[2018-05-30] MEDS: LACTULOSE 20 GM/30 ML SOLUTION. PO SCH ×2 (14:18→21:08)
[2018-05-30] MEDS: SODIUM BICARBONATE VIAL 150 MEQ in IV DEXTROSE 5% 1,000 ML IV SCH (14:19)
--- NOTE | 2018-05-30 14:45 | NUR ---
SS following for discharge planning. SS met with palliative care RN and pt RN. Pt's son and physician requesting transfer to . SS contacted transfer team, ; fax [phone], and initiated transfer. to contact Dr. Hurtado and discuss. SS faxed clinical information to . SS requested radiology to cloud imaging to . SS will await acceptance decision and will proceed accordingly. Pt's RN notified.
[2018-05-30 15:00] VITALS: BP 105/39
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
--- NOTE | 2018-05-30 16:25 | RAD ---
Ultrasound-guided paracentesis 05/30/2018 4:19 PM Procedure: The risks and benefits of the procedure were discussed the patient. Informed consent was obtained. A timeout procedure was performed. Sonographic evaluation of the abdomen was performed demonstrating ascites . The right lower quadrant was prepped and draped using maximum sterile barrier technique. 1% lidocaine without epinephrine was administered for local anesthesia. Real-time ultrasonographic guidance was used in passing a 5 Hungarian Yueh catheter into the fluid collection. 12 L of serous ascites was removed. The catheter was removed and pressure held to achieve hemostasis. A sterile dressing was applied. Impression: Successful ultrasound-guided paracentesis
--- NOTE | 2018-05-30 16:26 | RAD ---
Procedure: Ultrasound-guided placement of left internal jugular temporary dialysis catheter05/30/2018 4:20 PM Clinical Indication: ARIANA, ESLD , May need Temp HD Discussion: The risks and benefits of the procedure were discussed the patient and/or their c s s representative. Informed consent was obtained. A timeout procedure was performed. All elements of maximal sterile barrier technique including the use of a cap, mask, sterile gown, sterile gloves, large sterile sheet, appropriate hand hygiene, and 2% chlorhexidine for cutaneous antisepsis (or acceptable alternative antiseptic per current guidelines) were followed for this procedure. The patient was prepped and draped in the usual sterile fashion. Ultrasound interrogation of the left neck revealed patency and compressibility of the left internal jugular vein. A 21-gauge micropuncture was then used to gain access to this vein under ultrasound guidance. A hard copy ultrasound image was recorded. A guidewire was advanced centrally. Under fluoroscopy, 14.5 Lithuanian temporary dialysis catheter was placed over a guidewire, such that its tip was at the mid right atrium with the patient supine. The catheter was found to flush and aspirate normally. Catheter secured in place and a sterile dressing was applied. No immediate complications were identified. Fluoroscopy time: 0.1 Dose area product: Gycm2: 1 Impression: Successful ultrasound-guided placement of left internal jugular temporary dialysis catheter
[2018-05-30] MEDS ORDERED: DEXTROSE 50% 25 GM / 50ML DISP.SYRIN. IV PRN (17:30)
[2018-05-30] MEDS: INSULIN LISPRO 300 UNITS/3 ML INSULN.PEN. SQ SCH (17:42)
[2018-05-30 18:00] LABS: MAGNESIUM 2.3 mg/dL (1.8-2.4); POTASSIUM 3.3 mmol/L (3.5-5.1)
[2018-05-30 19:20] VITALS: BP 85/48
[2018-05-30] MEDS ORDERED: POTASSIUM CHLORIDE 20 MEQ TABLET.ER. PO ONE (19:30)
[2018-05-30] MEDS: CLOTRIMAZOLE 10 MG TROCHE. MM SCH (20:54)
[2018-05-30 23:10] VITALS: BP 85/62
[2018-05-31] VITALS (8 sets, daily range): BP systolic 82–143; BP diastolic 32–56
[2018-05-31] MEDS: CLOTRIMAZOLE 10 MG TROCHE. MM SCH ×6 (04:21→23:37)
[2018-05-31] MEDS: PANTOPRAZOLE 40 MG TABLET.DR. PO SCH (04:21)
[2018-05-31 05:14] LABS: BASO % 1 % (0-3); EOS # 0.1 x10^3/uL (0.0-0.7); EOS % 2 % (0-3); LYMPH # 0.3 x10^3/uL (1.0-4.8); LYMPH % 7 % (24-48); MEAN CORPUSCULAR HEMOGLOBIN 28 pg (25-35); MEAN CORPUSCULAR HGB CONC 33 g/dL (31-37); MEAN CORPUSCULAR VOLUME 84 fL (79-100); MONO # 0.5 x10^3/uL (0.0-1.1); MONO % 9 % (0-9); NEUT # 4.2 x10^3uL (1.8-7.7); NEUT % 81 % (31-73); PLATELET COUNT 35 x10^3/uL (140-400); RED BLOOD COUNT 1.99 x10^6/uL (3.50-5.40); RED CELL DISTRIBUTION WIDTH 15.7 % (11.5-14.5); WHITE BLOOD COUNT 5.1 x10^3/uL (4.0-11.0)
[2018-05-31 05:18] LABS: HEMOGLOBIN 5.6 g/dL (12.0-15.5)
[2018-05-31 05:19] LABS: HEMATOCRIT 16.8 % (36.0-47.0)
[2018-05-31 05:46] LABS: CALCIUM 8.4 mg/dL (8.5-10.1); CREATININE 8.6 mg/dL (0.6-1.0); GFR 4.7
[2018-05-31 05:51] LABS: POTASSIUM 2.8 mmol/L (3.5-5.1)
[2018-05-31] MEDS ORDERED: POTASSIUM CHLORIDE 20 MEQ TABLET.ER. PO ONE ×2 (06:30→08:30)
[2018-05-31 08:19] LABS: % BANDS 6 % (0-9); % EOS 1 % (0-5)
[2018-05-31 08:20] LABS: % LYMPHS 5 % (24-48); % MONOS 7 % (0-10); % SEGS 81 % (35-66); PLT ESTIMATE DECREASED (ADEQUATE)
[2018-05-31 08:21] LABS: ANISOCYTOSIS SLIGHT; OVALOCYTES FEW; TEAR DROP CELLS OCC
[2018-05-31 08:23] LABS: SCHISTOCYTES OCC; TARGET CELLS OCC
[2018-05-31] MEDS: LACTULOSE 20 GM/30 ML SOLUTION. PO SCH ×3 (09:50→23:37)
[2018-05-31] MEDS: rifAXIMin 550 MG TABLET PO SCH ×3 (09:50→23:37)
[2018-05-31] MEDS: INSULIN LISPRO 300 UNITS/3 ML INSULN.PEN. SQ SCH ×3 (09:59→18:07)
--- NOTE | 2018-05-31 11:07 | PDOC ---
PROGRESS NOTES Chief Complaint Chief Complaint History of Present Illness 62 y/o female w/ h/o ESLD (DIAZ) MELD 25, ?GI bleeding - last EGD 04/2017 w/ Grade 1 varices and gastriti, recurrent ascites requiring paracentesis, portal vein thrombosis, hyperammonemia who reports diarrhea at home with recent abx use (treated for UTI last admission). also with reported bloody stools. patient reportedly ate breakfast and vomited this AM. at last hospitalization request made to transfer to for transplant considerations but patient left AMA. reports taking meds as prescribed. frequent admissions for paracentesis and blood transfusions. Denies shortness of breath, fever, chills, sweats. No hematemesis coffee-ground emesis. No other complaints. hospitalist called for admission and further eval. pertinent labs in ED: Hb 7.2 (7.7 last admission). creatine 8.0 (4.5 last admission). plt 72k. INR 1.3 05/31: patient asking for PICC. lethargic this AM after getting pain meds overnight. s/p para 05/30 with 12L off History of Present Illness History of Present Illness ASSESSMENT 1. Toxic metabolic encephalopathy secondary to end-stage liver disease.MELD 25, exacerbated by elevated ammonia 2. Liver Cirrhosis secondary to DIAZ, status post previous paracentesis. now with profound ascites. unable to tolerate diuretics given creatine. s/p paracentesis 05/30 with 12 liters drawn off 3. Hypertension, BP low following para. hold BP meds for now 4. Hyperlipidemia. 5. [id number] renal disease. admission creatine 8.0. now 8.6. prior creatine 4.5. secondary to hepatorenal syndrome 6 hx noncompliance 7. ESOPHAGEAL VARICES, last EGD 04/2017 w/ Grade 1 varices and gastritis 8. Bloody Stools and Diarrhea, recent abx use 9. ANEMIA, BASELINE HGB APPROX 8.5, s/p previous transfusions. Hb 5.6 on 05/31. will give 2 units of blood 10. Thrombocytopenia secondary to Liver Failure 11. Right Port in place PLAN: GI consulted IR consult for paracentesis, done 05/31 nephro consult given rise in creatine. no plans for HD unless on transplant list 2 units of blood today, 05/31 follow BMP, CBC daily palliative care consulted given poor prognosis in an attempt to transfer the patient to , I spoke with software designer Dr. Malaika Osorio on 05/30 who is familiar with the case. Because of her previous AMA signouts , non-compliance, current tobacco use she is not deemed a transplant candidate. in fact she has been taken off the transplant list all together. Dr. Osorio recommends to start HD and follow up in hepatology clinic for further considerations. Vitals Vitals Vital Signs Date Time Temp Pulse Resp B/P (MAP) Pulse Ox O2 Delivery O2 Flow Rate FiO2 05/31/18 07:00 97.6 69 16 98/42 (60) 94 Room Air 97.6 05/31/18 00:24 2.0 Physical Exam General: Alert, Oriented X3, No acute distress Heart: Regular rate, Normal S1, Normal S2 Lungs: Clear, Other Abdomen: Other (distended ) Labs LABS Laboratory Tests Test 05/30/18 11:18 05/30/18 15:27 05/30/18 16:41 05/30/18 21:08 Glucose (Fingerstick) 165 mg/dL (70-99) 252 mg/dL (70-99) 248 mg/dL (70-99) Potassium Level 3.3 mmol/L (3.5-5.1) Magnesium Level 2.3 mg/dL (1.8-2.4) Ammonia 147 mcmol/L (11-34) Test 05/31/18 04:45 05/31/18 07:48 White Blood Count 5.1 x10^3/uL (4.0-11.0) Red Blood Count 1.99 x10^6/uL (3.50-5.40) Hemoglobin 5.6 g/dL (12.0-15.5) Hematocrit 16.8 % (36.0-47.0) Mean Corpuscular Volume 84 fL (79-100) Mean Corpuscular Hemoglobin 28 pg (25-35) Mean Corpuscular Hemoglobin Concent 33 g/dL (31-37) Red Cell Distribution Width 15.7 % (11.5-14.5) Platelet Count 35 x10^3/uL (140-400) Neutrophils (%) (Auto) 81 % (31-73) Lymphocytes (%) (Auto) 7 % (24-48) Monocytes (%) (Auto) 9 % (0-9) Eosinophils (%) (Auto) 2 % (0-3) Basophils (%) (Auto) 1 % (0-3) Neutrophils # (Auto) 4.2 x10^3uL (1.8-7.7) Lymphocytes # (Auto) 0.3 x10^3/uL (1.0-4.8) Monocytes # (Auto) 0.5 x10^3/uL (0.0-1.1) Eosinophils # (Auto) 0.1 x10^3/uL (0.0-0.7) Basophils # (Auto) 0.0 x10^3/uL (0.0-0.2) Segmented Neutrophils % 81 % (35-66) Band Neutrophils % 6 % (0-9) Lymphocytes % 5 % (24-48) Monocytes % 7 % (0-10) Eosinophils % 1 % (0-5) Platelet Estimate Decreased (ADEQUATE) Anisocytosis Slight Target Cells Occ Tear Drop Cells Occ Ovalocytes Few Schistocytes Occ Sodium Level 134 mmol/L (136-145) Potassium Level 2.8 mmol/L (3.5-5.1) Chloride Level 97 mmol/L (98-107) Carbon Dioxide Level 15 mmol/L (21-32) Anion Gap 22 (6-14) Blood Urea Nitrogen 109 mg/dL (7-20) Creatinine 8.6 mg/dL (0.6-1.0) Estimated GFR (Cockcroft-Gault) 4.7 Glucose Level 289 mg/dL (70-99) Calcium Level 8.4 mg/dL (8.5-10.1) Glucose (Fingerstick) 259 mg/dL (70-99) Assessment and Plan Assessmemt and Plan Problems Medical Problems: (1) Anemia Status: Acute (2) Lower GI bleed Status: Acute (3) Thrombocytopenia Status: Acute Comment Review of Relevant I have reviewed the following items chante (where applicable) has been applied. Labs Laboratory Tests Test 05/30/18 03:10 05/30/18 05:14 05/30/18 07:16 05/30/18 11:18 White Blood Count 8.4 x10^3/uL (4.0-11.0) Red Blood Count 2.59 x10^6/uL (3.50-5.40) Hemoglobin 7.2 g/dL (12.0-15.5) Hematocrit 22.1 % (36.0-47.0) Mean Corpuscular Volume 86 fL (79-100) Mean Corpuscular Hemoglobin 28 pg (25-35) Mean Corpuscular Hemoglobin Concent 33 g/dL (31-37) Red Cell Distribution Width 16.2 % (11.5-14.5) Platelet Count 72 x10^3/uL (140-400) Neutrophils (%) (Auto) 84 % (31-73) Lymphocytes (%) (Auto) 6 % (24-48) Monocytes (%) (Auto) 6 % (0-9) Eosinophils (%) (Auto) 2 % (0-3) Basophils (%) (Auto) 1 % (0-3) Neutrophils # (Auto) 7.1 x10^3uL (1.8-7.7) Lymphocytes # (Auto) 0.5 x10^3/uL (1.0-4.8) Monocytes # (Auto) 0.5 x10^3/uL (0.0-1.1) Eosinophils # (Auto) 0.2 x10^3/uL (0.0-0.7) Basophils # (Auto) 0.1 x10^3/uL (0.0-0.2) Sodium Level 133 mmol/L (136-145) Potassium Level 3.4 mmol/L (3.5-5.1) Chloride Level 99 mmol/L (98-107) Carbon Dioxide Level 11 mmol/L (21-32) Anion Gap 23 (6-14) Blood Urea Nitrogen 106 mg/dL (7-20) Creatinine 8.0 mg/dL (0.6-1.0) Estimated GFR (Cockcroft-Gault) 5.1 BUN/Creatinine Ratio 13 (6-20) Glucose Level 153 mg/dL (70-99) Calcium Level 9.0 mg/dL (8.5-10.1) Total Bilirubin 0.6 mg/dL (0.2-1.0) Aspartate Amino Transf (AST/SGOT) 29 U/L (15-37) Alanine Aminotransferase (ALT/SGPT) 20 U/L (14-59) Alkaline Phosphatase 191 U/L (46-116) Total Protein 6.4 g/dL (6.4-8.2) Albumin 2.3 g/dL (3.4-5.0) Albumin/Globulin Ratio 0.6 (1.0-1.7) Prothrombin Time 15.4 SEC (11.7-14.0) Prothromb Time International Ratio 1.3 (0.8-1.1) Activated Partial Thromboplast Time 36 SEC (24-38) Glucose (Fingerstick) 175 mg/dL (70-99) 165 mg/dL (70-99) Test 05/30/18 15:27 05/30/18 16:41 05/30/18 21:08 05/31/18 04:45 Potassium Level 3.3 mmol/L (3.5-5.1) 2.8 mmol/L (3.5-5.1) Magnesium Level 2.3 mg/dL (1.8-2.4) Ammonia 147 mcmol/L (11-34) Glucose (Fingerstick) 252 mg/dL (70-99) 248 mg/dL (70-99) White Blood Count 5.1 x10^3/uL (4.0-11.0) Red Blood Count 1.99 x10^6/uL (3.50-5.40) Hemoglobin 5.6 g/dL (12.0-15.5) Hematocrit 16.8 % (36.0-47.0) Mean Corpuscular Volume 84 fL (79-100) Mean Corpuscular Hemoglobin 28 pg (25-35) Mean Corpuscular Hemoglobin Concent 33 g/dL (31-37) Red Cell Distribution Width 15.7 % (11.5-14.5) Platelet Count 35 x10^3/uL (140-400) Neutrophils (%) (Auto) 81 % (31-73) Lymphocytes (%) (Auto) 7 % (24-48) Monocytes (%) (Auto) 9 % (0-9) Eosinophils (%) (Auto) 2 % (0-3) Basophils (%) (Auto) 1 % (0-3) Neutrophils # (Auto) 4.2 x10^3uL (1.8-7.7) Lymphocytes # (Auto) 0.3 x10^3/uL (1.0-4.8) Monocytes # (Auto) 0.5 x10^3/uL (0.0-1.1) Eosinophils # (Auto) 0.1 x10^3/uL (0.0-0.7) Basophils # (Auto) 0.0 x10^3/uL (0.0-0.2) Segmented Neutrophils % 81 % (35-66) Band Neutrophils % 6 % (0-9) Lymphocytes % 5 % (24-48) Monocytes % 7 % (0-10) Eosinophils % 1 % (0-5) Platelet Estimate Decreased (ADEQUATE) Anisocytosis Slight Target Cells Occ Tear Drop Cells Occ Ovalocytes Few Schistocytes Occ Sodium Level 134 mmol/L (136-145) Chloride Level 97 mmol/L (98-107) Carbon Dioxide Level 15 mmol/L (21-32) Anion Gap 22 (6-14) Blood Urea Nitrogen 109 mg/dL (7-20) Creatinine 8.6 mg/dL (0.6-1.0) Estimated GFR (Cockcroft-Gault) 4.7 Glucose Level 289 mg/dL (70-99) Calcium Level 8.4 mg/dL (8.5-10.1) Test 05/31/18 07:48 Glucose (Fingerstick) 259 mg/dL (70-99) Laboratory Tests Test 05/30/18 11:18 05/30/18 15:27 05/30/18 16:41 05/30/18 21:08 Glucose (Fingerstick) 165 mg/dL (70-99) 252 mg/dL (70-99) 248 mg/dL (70-99) Potassium Level 3.3 mmol/L (3.5-5.1) Magnesium Level 2.3 mg/dL (1.8-2.4) Ammonia 147 mcmol/L (11-34) Test 05/31/18 04:45 05/31/18 07:48 White Blood Count 5.1 x10^3/uL (4.0-11.0) Red Blood Count 1.99 x10^6/uL (3.50-5.40) Hemoglobin 5.6 g/dL (12.0-15.5) Hematocrit 16.8 % (36.0-47.0) Mean Corpuscular Volume 84 fL (79-100) Mean Corpuscular Hemoglobin 28 pg (25-35) Mean Corpuscular Hemoglobin Concent 33 g/dL (31-37) Red Cell Distribution Width 15.7 % (11.5-14.5) Platelet Count 35 x10^3/uL (140-400) Neutrophils (%) (Auto) 81 % (31-73) Lymphocytes (%) (Auto) 7 % (24-48) Monocytes (%) (Auto) 9 % (0-9) Eosinophils (%) (Auto) 2 % (0-3) Basophils (%) (Auto) 1 % (0-3) Neutrophils # (Auto) 4.2 x10^3uL (1.8-7.7) Lymphocytes # (Auto) 0.3 x10^3/uL (1.0-4.8) Monocytes # (Auto) 0.5 x10^3/uL (0.0-1.1) Eosinophils # (Auto) 0.1 x10^3/uL (0.0-0.7) Basophils # (Auto) 0.0 x10^3/uL (0.0-0.2) Segmented Neutrophils % 81 % (35-66) Band Neutrophils % 6 % (0-9) Lymphocytes % 5 % (24-48) Monocytes % 7 % (0-10) Eosinophils % 1 % (0-5) Platelet Estimate Decreased (ADEQUATE) Anisocytosis Slight Target Cells Occ Tear Drop Cells Occ Ovalocytes Few Schistocytes Occ Sodium Level 134 mmol/L (136-145) Potassium Level 2.8 mmol/L (3.5-5.1) Chloride Level 97 mmol/L (98-107) Carbon Dioxide Level 15 mmol/L (21-32) Anion Gap 22 (6-14) Blood Urea Nitrogen 109 mg/dL (7-20) Creatinine 8.6 mg/dL (0.6-1.0) Estimated GFR (Cockcroft-Gault) 4.7 Glucose Level 289 mg/dL (70-99) Calcium Level 8.4 mg/dL (8.5-10.1) Glucose (Fingerstick) 259 mg/dL (70-99) Medications Current Medications Ondansetron HCl (Zofran) 4 mg PRN Q8HRS PRN IV NAUSEA/VOMITING Last administered on 05/30/18at 04:49; Start 05/30/18 at 04:30; Stop 05/31/18 at 04:29; Status DC Fentanyl Citrate (Fentanyl 2ml Vial) 25 mcg Q2HR W/A PRN IV PAIN Last administered on 05/30/18 04:50; Start 05/30/18 at 04:30; Stop 05/30/18 at 04:52; Status DC Fentanyl Citrate (Fentanyl 2ml Vial) 25 mcg PRN Q2HRS PRN IV PAIN Q2HRS W/A Last administered on 05/30/18 23:54; Start 05/30/18 at 05:00 Pantoprazole Sodium (Protonix) 40 mg DAILYAC PO Last administered on 05/31/18 04:21; Start 05/30/18 at 11:30 Rifaximin (Xifaxan) 550 mg Q12HR PO Last administered on 05/31/18 09:50; Start 05/30/18 at 11:00 Lactulose (Lactulose) 20 gm BID PO Last administered on 05/31/18 09:50; Start 05/30/18 at 10:00 Sodium Bicarbonate 150 meq/Dextrose 1,150 ml @ 75 mls/hr [id number] IV Last administered on 05/30/18 14:19; Start 05/30/18 at 10:30 Lidocaine/Sodium Bicarbonate (Buffered Lidocaine 1%) 3 ml 1X ONCE INJ Last administered on 05/30/18 13:15; Start 05/30/18 at 13:15; Stop 05/30/18 at 13:16; Status DC Albumin Human 100 ml @ 100 mls/hr 1X ONCE IV Last administered on 05/30/18 13 :26; Start 05/30/18 at 14:00; Stop 05/30/18 at 14:59; Status DC Albumin Human 100 ml @ 100 mls/hr 1X ONCE IV Last administered on 05/30/18 16 :32; Start 05/30/18 at 15:00; Stop 05/30/18 at 15:59; Status DC Albumin Human 100 ml @ 100 mls/hr 1X ONCE IV Last administered on 05/30/18 14 :19; Start 05/30/18 at 13:30; Stop 05/30/18 at 14:29; Status DC Insulin Human Lispro (HumaLOG) 0-7 UNITS TIDWMEALS SQ Last administered on 09:59; Start 05/30/18 at 17:30 Dextrose (Dextrose 50%-Water Syringe) 12.5 gm PRN Q15MIN PRN IV SEE COMMENTS; Start 05/30/18 at 17:30 Clotrimazole (Mycelex) 10 mg 5XDAY MM Last administered on 05/31/18at 09:50; Start 05/30/18 at 22:00 Potassium Chloride (Klor-Con) 40 meq 1X ONCE PO Last administered on 05/30/18at 20:54; Start 05/30/18 at 19:30; Stop 05/30/18 at 19:31; Status DC Potassium Chloride (Klor-Con) 40 meq 1X ONCE PO ; Start 05/31/18 at 06:30; Stop 05/31/18 at 06:31; Status DC Potassium Chloride (Klor-Con) 40 meq 1X ONCE PO Last administered on 05/31/18at 09:50; Start 05/31/18 at 08:30; Stop 05/31/18 at 08:31; Status DC Active Scripts Active Reported Omeprazole 40 Mg Capsule.dr 1 Cap PO DAILY Xifaxan (Rifaximin) 550 Mg Tablet 1 Tab PO BID Nystatin 100,000 Unit/1 Ml Oral.susp 5 Ml PO QID Fusion Plus Capsule (Iron,Fum&Ps/Fa/Vit B&C#18/L.ca) 1 Each Capsule 1 Each PO Albuterol Sulfate Conc Neb Soln (Albuterol Sulfate) 2.5 Mg/0.5 Ml Vial.neb 2.5 Mg NEB Q6HRS PRN Lactulose 20 Gm/30 Ml Solution 20 Gm PO TID Lantus Solostar (Insulin Glargine,Hum.rec.anlog) 100 Unit/1 Ml Insuln.pen 0 SQ HS SSI Calcium + Vitamin D Tablet (Calcium Carbonate/Vitamin D3) 1 Each Tablet 1 Each PO Albuterol Sulfate Hfa Inhaler (Albuterol Sulfate) 8.5 Gm Hfa.aer.ad 8.5 Gm IH Novolog Flexpen (Insulin Aspart) 100 Unit/1 Ml Insuln.pen 0 SQ TIDAC ssi Synthroid (Levothyroxine Sodium) 25 Mcg Tablet 300 Mcg PO DAILY Flovent 110MCG Hfa (Fluticasone Propionate) 12 Gm Aer.w.adap 12 Gm IH Vitals/I & O Vital Sign - Last 24 Hours 05/30/18 05/30/18 05/30/18 05/30/18 11:30 15:00 17:32 19:20 Temp 97.7 97.6 98.2 97.7 97.6 98.2 Pulse 105 103 99 Resp 18 18 17 B/P (MAP) 107/36 (59) 105/39 (61) 85/48 (60) Pulse Ox 98 98 98 99 O2 Delivery Room Air Room Air Room Air Room Air O2 Flow Rate 2.0 05/30/18 05/30/18 05/30/18 05/31/18 20:00 23:10 23:54 00:24 Temp 97.3 97.3 Pulse 98 Resp 17 16 16 B/P (MAP) 85/62 (70) Pulse Ox 97 99 99 O2 Delivery Room Air Room Air Room Air Room Air O2 Flow Rate 2.0 2.0 2.0 05/31/18 05/31/18 03:20 07:00 Temp 97.6 97.6 97.6 97.6 Pulse 95 69 Resp 16 16 B/P (MAP) 82/42 (55) 98/42 (60) Pulse Ox 97 94 O2 Delivery Room Air Room Air Intake and Output 05/30/18 05/30/18 05/31/18 15:01 23:01 07:01 Intake Total 60 ml 220 ml 2160 ml Output Total 56796 ml 4 ml Balance -68434 ml 220 ml 2156 ml TEDDY PERALES MD May 31, 2018 11:07
[2018-05-31 11:52] LABS: RED BLOOD COUNT 1.65 x10^6/uL (3.50-5.40); RED CELL DISTRIBUTION WIDTH 15.9 % (11.5-14.5); WHITE BLOOD COUNT 3.9 x10^3/uL (4.0-11.0)
--- NOTE | 2018-05-31 12:52 | PDOC ---
G I PROGRESS NOTE Reason for Follow-up Liver failure Subjective No overt bleeding Physical Exam Lungs clear CV S1 S2 ABD +BS, soft, nontender Review of Relevant I have reviewed the following items chante (where applicable) has been applied. Labs Laboratory Tests Test 05/30/18 03:10 05/30/18 05:14 05/30/18 07:16 05/30/18 11:18 White Blood Count 8.4 x10^3/uL (4.0-11.0) Red Blood Count 2.59 x10^6/uL (3.50-5.40) Hemoglobin 7.2 g/dL (12.0-15.5) Hematocrit 22.1 % (36.0-47.0) Mean Corpuscular Volume 86 fL (79-100) Mean Corpuscular Hemoglobin 28 pg (25-35) Mean Corpuscular Hemoglobin Concent 33 g/dL (31-37) Red Cell Distribution Width 16.2 % (11.5-14.5) Platelet Count 72 x10^3/uL (140-400) Neutrophils (%) (Auto) 84 % (31-73) Lymphocytes (%) (Auto) 6 % (24-48) Monocytes (%) (Auto) 6 % (0-9) Eosinophils (%) (Auto) 2 % (0-3) Basophils (%) (Auto) 1 % (0-3) Neutrophils # (Auto) 7.1 x10^3uL (1.8-7.7) Lymphocytes # (Auto) 0.5 x10^3/uL (1.0-4.8) Monocytes # (Auto) 0.5 x10^3/uL (0.0-1.1) Eosinophils # (Auto) 0.2 x10^3/uL (0.0-0.7) Basophils # (Auto) 0.1 x10^3/uL (0.0-0.2) Sodium Level 133 mmol/L (136-145) Potassium Level 3.4 mmol/L (3.5-5.1) Chloride Level 99 mmol/L (98-107) Carbon Dioxide Level 11 mmol/L (21-32) Anion Gap 23 (6-14) Blood Urea Nitrogen 106 mg/dL (7-20) Creatinine 8.0 mg/dL (0.6-1.0) Estimated GFR (Cockcroft-Gault) 5.1 BUN/Creatinine Ratio 13 (6-20) Glucose Level 153 mg/dL (70-99) Calcium Level 9.0 mg/dL (8.5-10.1) Total Bilirubin 0.6 mg/dL (0.2-1.0) Aspartate Amino Transf (AST/SGOT) 29 U/L (15-37) Alanine Aminotransferase (ALT/SGPT) 20 U/L (14-59) Alkaline Phosphatase 191 U/L (46-116) Total Protein 6.4 g/dL (6.4-8.2) Albumin 2.3 g/dL (3.4-5.0) Albumin/Globulin Ratio 0.6 (1.0-1.7) Prothrombin Time 15.4 SEC (11.7-14.0) Prothromb Time International Ratio 1.3 (0.8-1.1) Activated Partial Thromboplast Time 36 SEC (24-38) Glucose (Fingerstick) 175 mg/dL (70-99) 165 mg/dL (70-99) Test 05/30/18 15:27 05/30/18 16:41 05/30/18 21:08 05/31/18 04:45 Potassium Level 3.3 mmol/L (3.5-5.1) 2.8 mmol/L (3.5-5.1) Magnesium Level 2.3 mg/dL (1.8-2.4) Ammonia 147 mcmol/L (11-34) Glucose (Fingerstick) 252 mg/dL (70-99) 248 mg/dL (70-99) White Blood Count 5.1 x10^3/uL (4.0-11.0) Red Blood Count 1.99 x10^6/uL (3.50-5.40) Hemoglobin 5.6 g/dL (12.0-15.5) Hematocrit 16.8 % (36.0-47.0) Mean Corpuscular Volume 84 fL (79-100) Mean Corpuscular Hemoglobin 28 pg (25-35) Mean Corpuscular Hemoglobin Concent 33 g/dL (31-37) Red Cell Distribution Width 15.7 % (11.5-14.5) Platelet Count 35 x10^3/uL (140-400) Neutrophils (%) (Auto) 81 % (31-73) Lymphocytes (%) (Auto) 7 % (24-48) Monocytes (%) (Auto) 9 % (0-9) Eosinophils (%) (Auto) 2 % (0-3) Basophils (%) (Auto) 1 % (0-3) Neutrophils # (Auto) 4.2 x10^3uL (1.8-7.7) Lymphocytes # (Auto) 0.3 x10^3/uL (1.0-4.8) Monocytes # (Auto) 0.5 x10^3/uL (0.0-1.1) Eosinophils # (Auto) 0.1 x10^3/uL (0.0-0.7) Basophils # (Auto) 0.0 x10^3/uL (0.0-0.2) Segmented Neutrophils % 81 % (35-66) Band Neutrophils % 6 % (0-9) Lymphocytes % 5 % (24-48) Monocytes % 7 % (0-10) Eosinophils % 1 % (0-5) Platelet Estimate Decreased (ADEQUATE) Anisocytosis Slight Target Cells Occ Tear Drop Cells Occ Ovalocytes Few Schistocytes Occ Sodium Level 134 mmol/L (136-145) Chloride Level 97 mmol/L (98-107) Carbon Dioxide Level 15 mmol/L (21-32) Anion Gap 22 (6-14) Blood Urea Nitrogen 109 mg/dL (7-20) Creatinine 8.6 mg/dL (0.6-1.0) Estimated GFR (Cockcroft-Gault) 4.7 Glucose Level 289 mg/dL (70-99) Calcium Level 8.4 mg/dL (8.5-10.1) Test 05/31/18 07:48 05/31/18 11:40 05/31/18 11:42 Glucose (Fingerstick) 259 mg/dL (70-99) 216 mg/dL (70-99) White Blood Count 3.9 x10^3/uL (4.0-11.0) Red Blood Count 1.65 x10^6/uL (3.50-5.40) Hemoglobin 4.6 g/dL (12.0-15.5) Hematocrit 13.9 % (36.0-47.0) Mean Corpuscular Volume 84 fL (79-100) Mean Corpuscular Hemoglobin 28 pg (25-35) Mean Corpuscular Hemoglobin Concent 33 g/dL (31-37) Red Cell Distribution Width 15.9 % (11.5-14.5) Platelet Count 32 x10^3/uL (140-400) Laboratory Tests Test 05/30/18 15:27 05/30/18 16:41 05/30/18 21:08 05/31/18 04:45 Potassium Level 3.3 mmol/L (3.5-5.1) 2.8 mmol/L (3.5-5.1) Magnesium Level 2.3 mg/dL (1.8-2.4) Ammonia 147 mcmol/L (11-34) Glucose (Fingerstick) 252 mg/dL (70-99) 248 mg/dL (70-99) White Blood Count 5.1 x10^3/uL (4.0-11.0) Red Blood Count 1.99 x10^6/uL (3.50-5.40) Hemoglobin 5.6 g/dL (12.0-15.5) Hematocrit 16.8 % (36.0-47.0) Mean Corpuscular Volume 84 fL (79-100) Mean Corpuscular Hemoglobin 28 pg (25-35) Mean Corpuscular Hemoglobin Concent 33 g/dL (31-37) Red Cell Distribution Width 15.7 % (11.5-14.5) Platelet Count 35 x10^3/uL (140-400) Neutrophils (%) (Auto) 81 % (31-73) Lymphocytes (%) (Auto) 7 % (24-48) Monocytes (%) (Auto) 9 % (0-9) Eosinophils (%) (Auto) 2 % (0-3) Basophils (%) (Auto) 1 % (0-3) Neutrophils # (Auto) 4.2 x10^3uL (1.8-7.7) Lymphocytes # (Auto) 0.3 x10^3/uL (1.0-4.8) Monocytes # (Auto) 0.5 x10^3/uL (0.0-1.1) Eosinophils # (Auto) 0.1 x10^3/uL (0.0-0.7) Basophils # (Auto) 0.0 x10^3/uL (0.0-0.2) Segmented Neutrophils % 81 % (35-66) Band Neutrophils % 6 % (0-9) Lymphocytes % 5 % (24-48) Monocytes % 7 % (0-10) Eosinophils % 1 % (0-5) Platelet Estimate Decreased (ADEQUATE) Anisocytosis Slight Target Cells Occ Tear Drop Cells Occ Ovalocytes Few Schistocytes Occ Sodium Level 134 mmol/L (136-145) Chloride Level 97 mmol/L (98-107) Carbon Dioxide Level 15 mmol/L (21-32) Anion Gap 22 (6-14) Blood Urea Nitrogen 109 mg/dL (7-20) Creatinine 8.6 mg/dL (0.6-1.0) Estimated GFR (Cockcroft-Gault) 4.7 Glucose Level 289 mg/dL (70-99) Calcium Level 8.4 mg/dL (8.5-10.1) Test 05/31/18 07:48 05/31/18 11:40 05/31/18 11:42 Glucose (Fingerstick) 259 mg/dL (70-99) 216 mg/dL (70-99) White Blood Count 3.9 x10^3/uL (4.0-11.0) Red Blood Count 1.65 x10^6/uL (3.50-5.40) Hemoglobin 4.6 g/dL (12.0-15.5) Hematocrit 13.9 % (36.0-47.0) Mean Corpuscular Volume 84 fL (79-100) Mean Corpuscular Hemoglobin 28 pg (25-35) Mean Corpuscular Hemoglobin Concent 33 g/dL (31-37) Red Cell Distribution Width 15.9 % (11.5-14.5) Platelet Count 32 x10^3/uL (140-400) Medications Current Medications Ondansetron HCl (Zofran) 4 mg PRN Q8HRS PRN IV NAUSEA/VOMITING Last administered on 05/30/18at 04:49; Start 05/30/18 at 04:30; Stop 05/31/18 at 04:29; Status DC Fentanyl Citrate (Fentanyl 2ml Vial) 25 mcg Q2HR W/A PRN IV PAIN Last administered on 05/30/18at 04:50; Start 05/30/18 at 04:30; Stop 05/30/18 at 04:52; Status DC Fentanyl Citrate (Fentanyl 2ml Vial) 25 mcg PRN Q2HRS PRN IV PAIN Q2HRS W/A Last administered on 05/30/18 23:54; Start 05/30/18 at 05:00 Pantoprazole Sodium (Protonix) 40 mg DAILYAC PO Last administered on 05/31/18 04:21; Start 05/30/18 at 11:30 Rifaximin (Xifaxan) 550 mg Q12HR PO Last administered on 05/31/18 09:50; Start 05/30/18 at 11:00 Lactulose (Lactulose) 20 gm BID PO Last administered on 05/31/18 09:50; Start 05/30/18 at 10:00 Sodium Bicarbonate 150 meq/Dextrose 1,150 ml @ 75 mls/hr [id number] IV Last administered on 05/30/18 14:19; Start 05/30/18 at 10:30 Lidocaine/Sodium Bicarbonate (Buffered Lidocaine 1%) 3 ml 1X ONCE INJ Last administered on 05/30/18 13:15; Start 05/30/18 at 13:15; Stop 05/30/18 at 13:16; Status DC Albumin Human 100 ml @ 100 mls/hr 1X ONCE IV Last administered on 05/30/18 13 :26; Start 05/30/18 at 14:00; Stop 05/30/18 at 14:59; Status DC Albumin Human 100 ml @ 100 mls/hr 1X ONCE IV Last administered on 05/30/18 16 :32; Start 05/30/18 at 15:00; Stop 05/30/18 at 15:59; Status DC Albumin Human 100 ml @ 100 mls/hr 1X ONCE IV Last administered on 05/30/18 14 :19; Start 05/30/18 at 13:30; Stop 05/30/18 at 14:29; Status DC Insulin Human Lispro (HumaLOG) 0-7 UNITS TIDWMEALS SQ Last administered on 09:59; Start 05/30/18 at 17:30 Dextrose (Dextrose 50%-Water Syringe) 12.5 gm PRN Q15MIN PRN IV SEE COMMENTS; Start 05/30/18 at 17:30 Clotrimazole (Mycelex) 10 mg 5XDAY MM Last administered on 2/9/19at 09:50; Start 05/30/18 at 22:00 Potassium Chloride (Klor-Con) 40 meq 1X ONCE PO Last administered on 05/30/18at 20:54; Start 05/30/18 at 19:30; Stop 05/30/18 at 19:31; Status DC Potassium Chloride (Klor-Con) 40 meq 1X ONCE PO ; Start 05/31/18 at 06:30; Stop 05/31/18 at 06:31; Status DC Potassium Chloride (Klor-Con) 40 meq 1X ONCE PO Last administered on 05/31/18at 09:50; Start 05/31/18 at 08:30; Stop 05/31/18 at 08:31; Status DC Active Scripts Active Reported Omeprazole 40 Mg Capsule.dr 1 Cap PO DAILY Xifaxan (Rifaximin) 550 Mg Tablet 1 Tab PO BID Nystatin 100,000 Unit/1 Ml Oral.susp 5 Ml PO QID Fusion Plus Capsule (Iron,Fum&Ps/Fa/Vit B&C#18/L.ca) 1 Each Capsule 1 Each PO Albuterol Sulfate Conc Neb Soln (Albuterol Sulfate) 2.5 Mg/0.5 Ml Vial.neb 2.5 Mg NEB Q6HRS PRN Lactulose 20 Gm/30 Ml Solution 20 Gm PO TID Lantus Solostar (Insulin Glargine,Hum.rec.anlog) 100 Unit/1 Ml Insuln.pen 0 SQ HS SSI Calcium + Vitamin D Tablet (Calcium Carbonate/Vitamin D3) 1 Each Tablet 1 Each PO Albuterol Sulfate Hfa Inhaler (Albuterol Sulfate) 8.5 Gm Hfa.aer.ad 8.5 Gm IH Novolog Flexpen (Insulin Aspart) 100 Unit/1 Ml Insuln.pen 0 SQ TIDAC ssi Synthroid (Levothyroxine Sodium) 25 Mcg Tablet 300 Mcg PO DAILY Flovent 110MCG Hfa (Fluticasone Propionate) 12 Gm Aer.w.adap 12 Gm IH Vitals/I & O Vital Sign - Last 24 Hours 05/30/18 05/30/18 05/30/18 05/30/18 15:00 17:32 19:20 20:00 Temp 97.6 98.2 97.6 98.2 Pulse 103 99 Resp 18 17 B/P (MAP) 105/39 (61) 85/48 (60) Pulse Ox 98 98 99 O2 Delivery Room Air Room Air Room Air Room Air O2 Flow Rate 2.0 2.0 05/30/18 05/30/18 05/31/18 05/31/18 23:10 23:54 00:24 03:20 Temp 97.3 97.6 97.3 97.6 Pulse 98 95 Resp 17 16 16 16 B/P (MAP) 85/62 (70) 82/42 (55) Pulse Ox 97 99 99 97 O2 Delivery Room Air Room Air Room Air Room Air O2 Flow Rate 2.0 2.0 05/31/18 05/31/18 07:00 11:17 Temp 97.6 98.1 97.6 98.1 Pulse 69 95 Resp 16 20 B/P (MAP) 98/42 (60) 100/32 (54) Pulse Ox 94 100 O2 Delivery Room Air Room Air Intake and Output 05/30/18 05/30/18 05/31/18 15:01 23:01 07:01 Intake Total 60 ml 220 ml 2160 ml Output Total 75664 ml 4 ml Balance -98887 ml 220 ml 2156 ml Problem List Problems Medical Problems: (1) Anemia Status: Acute (2) Lower GI bleed Status: Acute (3) Thrombocytopenia Status: Acute Assessment Cirrhosis- with renal failure, prognosis guarded, transplant only detention viable option, await antibiodies to be cleared for transfusions with worsening anemia RUEL WILCOX MD May 31, 2018 12:52
[2018-05-31 13:03] LABS: HEMATOCRIT 16.2 % (36.0-47.0); HEMOGLOBIN 5.4 g/dL (12.0-15.5)
[2018-05-31 13:04] LABS: HEMOGLOBIN 4.6 g/dL (12.0-15.5)
[2018-05-31 13:05] LABS: HEMATOCRIT 13.9 % (36.0-47.0)
[2018-05-31 13:09] LABS: ALBUMIN 2.7 g/dL (3.4-5.0); ALBUMIN/GLOBULIN RATIO 0.9 (1.0-1.7); CALCIUM 7.9 mg/dL (8.5-10.1); CREATININE 8.5 mg/dL (0.6-1.0); GFR 4.8; TOTAL BILIRUBIN 0.6 mg/dL (0.2-1.0); TOTAL PROTEIN 5.7 g/dL (6.4-8.2)
[2018-05-31 13:16] LABS: POTASSIUM 2.6 mmol/L (3.5-5.1)
[2018-05-31] MEDS ORDERED: MAGNESIUM SULFATE 2GM 50 ML IV ONE (14:00)
[2018-05-31] MEDS: POTASSIUM CHLORIDE 10MEQ 100 ML IV SCH ×2 (15:21→17:51)
[2018-05-31] MEDS: POTASSIUM CHLORIDE 20 MEQ TABLET.ER. PO SCH ×2 (15:24→17:52)
--- NOTE | 2018-05-31 17:00 | PDOC2 ---
NEUROLOGY CONSULT Date of Admission Date of Admission DATE: 05/31/18 TIME: 16:47 Reason for Consult Reason for Consult: Altered mental status Referring Physician Referring Physician: Dr. Hurtado Source Source: Caregiver, Chart review, Patient History of Present Illness History of Present Illness The patient is a 62-year-old right-handed female with history of non-alcoholic steatohepatitis and renal disease with known esophageal varices, gastritis, recurrent ascites requiring paracentesis, portal vein thrombosis, hyperammonemia , presents with diarrhea and melena. She usually follows at but also follows here because sometimes she prefers our hospital. I understand that the transplant service at has taken her off the list because of noncompliance. I am asked to see her regarding altered mental status. According the family, her mental status is no worse or better than usual. She is a little tired out, they think, because of anemia. There is no history of stroke, seizure, head injury, or other primary neurological issue. Past Medical History Cardiovascular: HTN, Hyperlipidemia Pulmonary: Asthma, COPD CENTRAL NERVOUS SYSTEM: Other (long history of hepatic encephalopathy, note she was admitted for this month ago) GI: Constipation (and diarrhea), GERD, GI bleed, Gastritis, Hemorrhoids, Other (esophageal varices, gallbladder disease, colonic polyps, hiatal hernia) Heme/Onc: Anemia NOS Hepatobiliary: Cirrhosis (DIAZ) Psych: Anxiety, Depression Renal/: Acute renal failure, UTI, Urinary Incontinence Dermatology: Psoriasis Past Surgical History Past Surgical History: Cataract Removal, Tonsillectomy (adenoidectomy), Hysterectomy, Other (left myringotomy, paracentesis) Family History Family History: No pertinent hx Social History Social History Single, smokes occasional cigarettes, never used alcohol, disabled Current Medications Current Medications Current Medications Ondansetron HCl (Zofran) 4 mg PRN Q8HRS PRN IV NAUSEA/VOMITING Last administered on 05/30/18at 04:49; Start 05/30/18 at 04:30; Stop 05/31/18 at 04:29; Status DC Fentanyl Citrate (Fentanyl 2ml Vial) 25 mcg Q2HR W/A PRN IV PAIN Last administered on 05/30/18at 04:50; Start 05/30/18 at 04:30; Stop 05/30/18 at 04:52; Status DC Fentanyl Citrate (Fentanyl 2ml Vial) 25 mcg PRN Q2HRS PRN IV PAIN Q2HRS W/A Last administered on 05/30/18 23:54; Start 05/30/18 at 05:00 Pantoprazole Sodium (Protonix) 40 mg DAILYAC PO Last administered on 05/31/18 04:21; Start 05/30/18 at 11:30 Rifaximin (Xifaxan) 550 mg Q12HR PO Last administered on 05/31/18 09:50; Start 05/30/18 at 11:00 Lactulose (Lactulose) 20 gm BID PO Last administered on 05/31/18 09:50; Start 05/30/18 at 10:00 Sodium Bicarbonate 150 meq/Dextrose 1,150 ml @ 75 mls/hr [id number] IV Last administered on 05/30/18 14:19; Start 05/30/18 at 10:30 Lidocaine/Sodium Bicarbonate (Buffered Lidocaine 1%) 3 ml 1X ONCE INJ Last administered on 05/30/18 13:15; Start 05/30/18 at 13:15; Stop 05/30/18 at 13:16; Status DC Albumin Human 100 ml @ 100 mls/hr 1X ONCE IV Last administered on 05/30/18 13 :26; Start 05/30/18 at 14:00; Stop 05/30/18 at 14:59; Status DC Albumin Human 100 ml @ 100 mls/hr 1X ONCE IV Last administered on 05/30/18 16 :32; Start 05/30/18 at 15:00; Stop 05/30/18 at 15:59; Status DC Albumin Human 100 ml @ 100 mls/hr 1X ONCE IV Last administered on 05/30/18 14 :19; Start 05/30/18 at 13:30; Stop 05/30/18 at 14:29; Status DC Insulin Human Lispro (HumaLOG) 0-7 UNITS TIDWMEALS SQ Last administered on 13:11; Start 05/30/18 at 17:30 Dextrose (Dextrose 50%-Water Syringe) 12.5 gm PRN Q15MIN PRN IV SEE COMMENTS; Start 05/30/18 at 17:30 Clotrimazole (Mycelex) 10 mg 5XDAY MM Last administered on 05/31/18 13:04; Start 05/30/18 at 22:00 Potassium Chloride (Klor-Con) 40 meq 1X ONCE PO Last administered on 05/30/18at 20:54; Start 05/30/18 at 19:30; Stop 05/30/18 at 19:31; Status DC Potassium Chloride (Klor-Con) 40 meq 1X ONCE PO ; Start 05/31/18 at 06:30; Stop 05/31/18 at 06:31; Status DC Potassium Chloride (Klor-Con) 40 meq 1X ONCE PO Last administered on 05/31/18at 09:50; Start 05/31/18 at 08:30; Stop 05/31/18 at 08:31; Status DC Potassium Chloride/Sodium Chloride 1,000 ml @ 75 mls/hr 1X ONCE IV ; Start 05/31/18 at 14:00; Stop 05/31/18 at 15:05; Status DC Potassium Chloride (Klor-Con) 40 meq Q2H PO Last administered on 05/31/18at 15:24 ; Start 05/31/18 at 14:00; Stop 05/31/18 at 16:01; Status DC Magnesium Sulfate 50 ml @ 25 mls/hr 1X ONCE IV Last administered on 05/31/18at 15:20; Start 05/31/18 at 14:00; Stop 05/31/18 at 15:59; Status DC Potassium Chloride/Water 100 ml @ 100 mls/hr Q1H IV Last administered on at 15:21; Start 05/31/18 at 15:15; Stop 05/31/18 at 17:14 Active Scripts Active Reported Omeprazole 40 Mg Capsule.dr 1 Cap PO DAILY Xifaxan (Rifaximin) 550 Mg Tablet 1 Tab PO BID Nystatin 100,000 Unit/1 Ml Oral.susp 5 Ml PO QID Fusion Plus Capsule (Iron,Fum&Ps/Fa/Vit B&C#18/L.ca) 1 Each Capsule 1 Each PO Albuterol Sulfate Conc Neb Soln (Albuterol Sulfate) 2.5 Mg/0.5 Ml Vial.neb 2.5 Mg NEB Q6HRS PRN Lactulose 20 Gm/30 Ml Solution 20 Gm PO TID Lantus Solostar (Insulin Glargine,Hum.rec.anlog) 100 Unit/1 Ml Insuln.pen 0 SQ HS SSI Calcium + Vitamin D Tablet (Calcium Carbonate/Vitamin D3) 1 Each Tablet 1 Each PO Albuterol Sulfate Hfa Inhaler (Albuterol Sulfate) 8.5 Gm Hfa.aer.ad 8.5 Gm IH Novolog Flexpen (Insulin Aspart) 100 Unit/1 Ml Insuln.pen 0 SQ TIDAC ssi Synthroid (Levothyroxine Sodium) 25 Mcg Tablet 300 Mcg PO DAILY Flovent 110MCG Hfa (Fluticasone Propionate) 12 Gm Aer.w.adap 12 Gm IH Allergies Allergies: Coded Allergies: Sulfa (Sulfonamide Antibiotics) (Verified Allergy, Severe, Swelling, ) tongue swelling, rash cephalexin (Verified Allergy, Severe, Anaphylaxis, 05/22/18) TOLERATES AMOX, ZOSYN doxycycline (Verified Allergy, Intermediate, 04/24/18) insulin detemir (Verified Allergy, Intermediate, Rash, 04/24/18) morphine (Verified Allergy, Intermediate, rash, 04/24/18) niacin (Verified Allergy, Intermediate, Rash, 04/24/18) edema oxycodone (Verified Allergy, Intermediate, rash, 04/24/18) povidone-iodine (Verified Allergy, Intermediate, It, 04/24/18) rifaximin (Verified Allergy, Intermediate, Itching, 04/24/18) tramadol (Verified Allergy, Intermediate, Rash, 04/24/18) I S O L A T I O N *CONTACT* (Verified Allergy, Unknown, 04/24/18) VRE - urine 12/20/17 codeine (Verified Adverse Reaction, Intermediate, Nausea and Vomiting, 04/24) erythromycin base (Verified Adverse Reaction, Intermediate, Diarrhea, ) ROS Review of System Negative for fever, chills, weight loss, shortness of breath, chest pain, indigestion, hematochezia, melena, and dysuria. Full 14-point review of systems is negative. Physical Exam Physical Examination General: Well-developed, well-nourished white female in no acute distress HEENT: Normocephalic and�atraumatic. Temporal arteries�pulsatile and nontender.� Neck: Supple without bruit, no meningismus� Musculoskeletal: Stability:�see neurologic. Gait exam:�see neurologic. Tone:�see neurologic.� Strength:�see neurologic.� Neurological: Mental Status: orientation, memory, attention span/concentration, language, fund of knowledge: She is somnolent, arouses easily, knows her location, is a few days off on the date, names and repeats well. Cranial Nerves:�Pupils equal and reactive to light, extraocular movements are�intact, visual mas are full to confrontation. Facial sensation is normal. There is no facial asymmetry. Vestibulo-ocular reflex is intact. Palate elevates and tongue protrudes in midline. All other cranial related problems are negative except as mentioned before.�Reflexes:�2+ and symmetric with flexor plantar responses. Motor:�5/5 strength with normal tone and bulk. Coordination:�Finger-nose finger and heel-to -grover testing are normal. Rapid alternating movements and fine finger movements are intact. She does have asterixis. Gait: Not tested. Sensory:�Normal pinprick , vibration, light touch, proprioception.� Vitals VITALS Vital Signs Date Time Temp Pulse Resp B/P (MAP) Pulse Ox O2 Delivery O2 Flow Rate FiO2 05/31/18 15:23 97.6 100 18 86/37 (53) 97 Room Air 97.6 05/31/18 08:00 2.0 Labs Labs Laboratory Tests Test 05/30/18 03:10 05/30/18 05:14 05/30/18 07:16 05/30/18 11:18 White Blood Count 8.4 x10^3/uL (4.0-11.0) Red Blood Count 2.59 x10^6/uL (3.50-5.40) Hemoglobin 7.2 g/dL (12.0-15.5) Hematocrit 22.1 % (36.0-47.0) Mean Corpuscular Volume 86 fL (79-100) Mean Corpuscular Hemoglobin 28 pg (25-35) Mean Corpuscular Hemoglobin Concent 33 g/dL (31-37) Red Cell Distribution Width 16.2 % (11.5-14.5) Platelet Count 72 x10^3/uL (140-400) Neutrophils (%) (Auto) 84 % (31-73) Lymphocytes (%) (Auto) 6 % (24-48) Monocytes (%) (Auto) 6 % (0-9) Eosinophils (%) (Auto) 2 % (0-3) Basophils (%) (Auto) 1 % (0-3) Neutrophils # (Auto) 7.1 x10^3uL (1.8-7.7) Lymphocytes # (Auto) 0.5 x10^3/uL (1.0-4.8) Monocytes # (Auto) 0.5 x10^3/uL (0.0-1.1) Eosinophils # (Auto) 0.2 x10^3/uL (0.0-0.7) Basophils # (Auto) 0.1 x10^3/uL (0.0-0.2) Sodium Level 133 mmol/L (136-145) Potassium Level 3.4 mmol/L (3.5-5.1) Chloride Level 99 mmol/L (98-107) Carbon Dioxide Level 11 mmol/L (21-32) Anion Gap 23 (6-14) Blood Urea Nitrogen 106 mg/dL (7-20) Creatinine 8.0 mg/dL (0.6-1.0) Estimated GFR (Cockcroft-Gault) 5.1 BUN/Creatinine Ratio 13 (6-20) Glucose Level 153 mg/dL (70-99) Calcium Level 9.0 mg/dL (8.5-10.1) Total Bilirubin 0.6 mg/dL (0.2-1.0) Aspartate Amino Transf (AST/SGOT) 29 U/L (15-37) Alanine Aminotransferase (ALT/SGPT) 20 U/L (14-59) Alkaline Phosphatase 191 U/L (46-116) Total Protein 6.4 g/dL (6.4-8.2) Albumin 2.3 g/dL (3.4-5.0) Albumin/Globulin Ratio 0.6 (1.0-1.7) Prothrombin Time 15.4 SEC (11.7-14.0) Prothromb Time International Ratio 1.3 (0.8-1.1) Activated Partial Thromboplast Time 36 SEC (24-38) Glucose (Fingerstick) 175 mg/dL (70-99) 165 mg/dL (70-99) Test 05/30/18 15:27 05/30/18 16:41 05/30/18 21:08 05/31/18 04:45 Potassium Level 3.3 mmol/L (3.5-5.1) 2.8 mmol/L (3.5-5.1) Magnesium Level 2.3 mg/dL (1.8-2.4) Ammonia 147 mcmol/L (11-34) Glucose (Fingerstick) 252 mg/dL (70-99) 248 mg/dL (70-99) White Blood Count 5.1 x10^3/uL (4.0-11.0) Red Blood Count 1.99 x10^6/uL (3.50-5.40) Hemoglobin 5.6 g/dL (12.0-15.5) Hematocrit 16.8 % (36.0-47.0) Mean Corpuscular Volume 84 fL (79-100) Mean Corpuscular Hemoglobin 28 pg (25-35) Mean Corpuscular Hemoglobin Concent 33 g/dL (31-37) Red Cell Distribution Width 15.7 % (11.5-14.5) Platelet Count 35 x10^3/uL (140-400) Neutrophils (%) (Auto) 81 % (31-73) Lymphocytes (%) (Auto) 7 % (24-48) Monocytes (%) (Auto) 9 % (0-9) Eosinophils (%) (Auto) 2 % (0-3) Basophils (%) (Auto) 1 % (0-3) Neutrophils # (Auto) 4.2 x10^3uL (1.8-7.7) Lymphocytes # (Auto) 0.3 x10^3/uL (1.0-4.8) Monocytes # (Auto) 0.5 x10^3/uL (0.0-1.1) Eosinophils # (Auto) 0.1 x10^3/uL (0.0-0.7) Basophils # (Auto) 0.0 x10^3/uL (0.0-0.2) Segmented Neutrophils % 81 % (35-66) Band Neutrophils % 6 % (0-9) Lymphocytes % 5 % (24-48) Monocytes % 7 % (0-10) Eosinophils % 1 % (0-5) Platelet Estimate Decreased (ADEQUATE) Anisocytosis Slight Target Cells Occ Tear Drop Cells Occ Ovalocytes Few Schistocytes Occ Sodium Level 134 mmol/L (136-145) Chloride Level 97 mmol/L (98-107) Carbon Dioxide Level 15 mmol/L (21-32) Anion Gap 22 (6-14) Blood Urea Nitrogen 109 mg/dL (7-20) Creatinine 8.6 mg/dL (0.6-1.0) Estimated GFR (Cockcroft-Gault) 4.7 Glucose Level 289 mg/dL (70-99) Calcium Level 8.4 mg/dL (8.5-10.1) Test 05/31/18 07:48 05/31/18 11:40 05/31/18 11:42 05/31/18 12:30 Glucose (Fingerstick) 259 mg/dL (70-99) 216 mg/dL (70-99) White Blood Count 3.9 x10^3/uL (4.0-11.0) Red Blood Count 1.65 x10^6/uL (3.50-5.40) Hemoglobin 4.6 g/dL (12.0-15.5) 5.4 g/dL (12.0-15.5) Hematocrit 13.9 % (36.0-47.0) 16.2 % (36.0-47.0) Mean Corpuscular Volume 84 fL (79-100) Mean Corpuscular Hemoglobin 28 pg (25-35) Mean Corpuscular Hemoglobin Concent 33 g/dL (31-37) 33 g/dL (31-37) Red Cell Distribution Width 15.9 % (11.5-14.5) Platelet Count 32 x10^3/uL (140-400) Sodium Level 136 mmol/L (136-145) Potassium Level 2.6 mmol/L (3.5-5.1) Chloride Level 97 mmol/L (98-107) Carbon Dioxide Level 19 mmol/L (21-32) Anion Gap 20 (6-14) Blood Urea Nitrogen 106 mg/dL (7-20) Creatinine 8.5 mg/dL (0.6-1.0) Estimated GFR (Cockcroft-Gault) 4.8 BUN/Creatinine Ratio 12 (6-20) Glucose Level 323 mg/dL (70-99) Calcium Level 7.9 mg/dL (8.5-10.1) Total Bilirubin 0.6 mg/dL (0.2-1.0) Aspartate Amino Transf (AST/SGOT) 20 U/L (15-37) Alanine Aminotransferase (ALT/SGPT) 16 U/L (14-59) Alkaline Phosphatase 132 U/L (46-116) Total Protein 5.7 g/dL (6.4-8.2) Albumin 2.7 g/dL (3.4-5.0) Albumin/Globulin Ratio 0.9 (1.0-1.7) Laboratory Tests Test 05/30/18 21:08 05/31/18 04:45 05/31/18 07:48 05/31/18 11:40 Glucose (Fingerstick) 248 mg/dL (70-99) 259 mg/dL (70-99) White Blood Count 5.1 x10^3/uL (4.0-11.0) 3.9 x10^3/uL (4.0-11.0) Red Blood Count 1.99 x10^6/uL (3.50-5.40) 1.65 x10^6/uL (3.50-5.40) Hemoglobin 5.6 g/dL (12.0-15.5) 4.6 g/dL (12.0-15.5) Hematocrit 16.8 % (36.0-47.0) 13.9 % (36.0-47.0) Mean Corpuscular Volume 84 fL (79-100) 84 fL (79-100) Mean Corpuscular Hemoglobin 28 pg (25-35) 28 pg (25-35) Mean Corpuscular Hemoglobin Concent 33 g/dL (31-37) 33 g/dL (31-37) Red Cell Distribution Width 15.7 % (11.5-14.5) 15.9 % (11.5-14.5) Platelet Count 35 x10^3/uL (140-400) 32 x10^3/uL (140-400) Neutrophils (%) (Auto) 81 % (31-73) Lymphocytes (%) (Auto) 7 % (24-48) Monocytes (%) (Auto) 9 % (0-9) Eosinophils (%) (Auto) 2 % (0-3) Basophils (%) (Auto) 1 % (0-3) Neutrophils # (Auto) 4.2 x10^3uL (1.8-7.7) Lymphocytes # (Auto) 0.3 x10^3/uL (1.0-4.8) Monocytes # (Auto) 0.5 x10^3/uL (0.0-1.1) Eosinophils # (Auto) 0.1 x10^3/uL (0.0-0.7) Basophils # (Auto) 0.0 x10^3/uL (0.0-0.2) Segmented Neutrophils % 81 % (35-66) Band Neutrophils % 6 % (0-9) Lymphocytes % 5 % (24-48) Monocytes % 7 % (0-10) Eosinophils % 1 % (0-5) Platelet Estimate Decreased (ADEQUATE) Anisocytosis Slight Target Cells Occ Tear Drop Cells Occ Ovalocytes Few Schistocytes Occ Sodium Level 134 mmol/L (136-145) Potassium Level 2.8 mmol/L (3.5-5.1) Chloride Level 97 mmol/L (98-107) Carbon Dioxide Level 15 mmol/L (21-32) Anion Gap 22 (6-14) Blood Urea Nitrogen 109 mg/dL (7-20) Creatinine 8.6 mg/dL (0.6-1.0) Estimated GFR (Cockcroft-Gault) 4.7 Glucose Level 289 mg/dL (70-99) Calcium Level 8.4 mg/dL (8.5-10.1) Test 05/31/18 11:42 05/31/18 12:30 Glucose (Fingerstick) 216 mg/dL (70-99) Hemoglobin 5.4 g/dL (12.0-15.5) Hematocrit 16.2 % (36.0-47.0) Mean Corpuscular Hemoglobin Concent 33 g/dL (31-37) Sodium Level 136 mmol/L (136-145) Potassium Level 2.6 mmol/L (3.5-5.1) Chloride Level 97 mmol/L (98-107) Carbon Dioxide Level 19 mmol/L (21-32) Anion Gap 20 (6-14) Blood Urea Nitrogen 106 mg/dL (7-20) Creatinine 8.5 mg/dL (0.6-1.0) Estimated GFR (Cockcroft-Gault) 4.8 BUN/Creatinine Ratio 12 (6-20) Glucose Level 323 mg/dL (70-99) Calcium Level 7.9 mg/dL (8.5-10.1) Total Bilirubin 0.6 mg/dL (0.2-1.0) Aspartate Amino Transf (AST/SGOT) 20 U/L (15-37) Alanine Aminotransferase (ALT/SGPT) 16 U/L (14-59) Alkaline Phosphatase 132 U/L (46-116) Total Protein 5.7 g/dL (6.4-8.2) Albumin 2.7 g/dL (3.4-5.0) Albumin/Globulin Ratio 0.9 (1.0-1.7) Assessment/Plan Assessment/Plan Impression: Metabolic encephalopathy, hepatic, uremic, anemic, certainly plenty of explanations for her altered mental status. Family says that she is at her baseline. I find no evidence of any ongoing seizure activity. I find no evidence of central nervous system infection or stroke. There are no focal findings. Recommendations: I did consider additional studies such as CT of the head and electroencephalogram, but I do not think that these are required given the stability of symptoms and the nonfocal examination stop I discussed with family who are agreeable with holding off on further studies. Thank you for letting me help with the patient's care. ROMI MAXWELL MD May 31, 2018 17:00
[2018-05-31] MEDS: SODIUM BICARBONATE VIAL 150 MEQ in IV DEXTROSE 5% 1,000 ML IV SCH (17:10)
--- NOTE | 2018-05-31 17:41 | PDOC ---
SUBJECTIVE ROS Sleeping, family at bedside OBJECTIVE Vital Signs Vital Signs Date Time Temp Pulse Resp B/P (MAP) Pulse Ox O2 Delivery O2 Flow Rate FiO2 05/31/18 15:23 97.6 100 18 86/37 (53) 97 Room Air 97.6 05/31/18 08:00 2.0 I & 0 Intake and Output 05/31/18 07:01 Intake Total 2440 ml Output Total 89016 ml Balance -9564 ml Intake Oral 1540 ml Other 900 ml Output Urine Total 2 ml Stool Total 2 ml Other 96606 ml # Voids 1 # Bowel Movements 4 PHYSICAL EXAM Physical Exam GEN: NAD HEEN: Mucous Membranes dry NECK: supple CVS: S1S2, soft Murmur, No Gallop, No Rub RESP: CTA bilat, no Acc. Muscle Use GI: BS + ve, Distended with ascites : no CVA tenderness, no Suprapubic Tenderness, No walker Skin- No rash Neuro- AxO, No Asterixis DIAGNOSIS/ASSESSMENT Assessment & Plan AK I: Hepatorenal RN PLASTICS is only indicated as a bridge for Liver Tx Due to HRS less likely to tolerate HD, Hypotensive As per GI e-denied by and [facility] working on getting Pt to for Eval If Possibility of Liver transplant will start RN PLASTICS , discussed risks with family( son and daughter at bedside) Metabolic acidosis- IV Bicarb Hypokalemia- will use 4k on HD Replace as indicated ?GI bleeding - last EGD 04/2017 w/ Grade 1 varices and gastritis Anemia- Worsening PRBC ordered by Primary Thrombocytopenia CKD stage 3/4. 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 Paracentesis today as per GI has ESLD w/ recurrent ascites/paracentesis, encephalopathy/hyperammonemia, chronic anemia. EGD 04/24/18: grade 1 varices, gastritis UTI- Recent UTI Was on Abx as per ID Discussed Plan of Care and prognosis etc. at length with Pt , family many times Discussed plan with RN and home delivery driver COMMENT/RELEVANT DATA Meds Current Medications Medications (Trade) Dose Ordered Sig/Emanuel Start Time Stop Time Status Last Admin Dose Admin Albumin Human 100 ml @ 100 mls/hr 1X ONCE 05/30/18 13:30 05/30/18 14:29 DC 05/30/18 14:19 100 MLS/HR Clotrimazole (Mycelex) 10 mg 5XDAY 05/30/18 22:00 05/31/18 13:04 10 MG Dextrose (Dextrose 50%-Water Syringe) 12.5 gm PRN Q15MIN PRN 05/30/18 17:30 Fentanyl Citrate (Fentanyl 2ml Vial) 25 mcg PRN Q2HRS PRN 05/30/18 05:00 05/30/18 23:54 25 MCG Insulin Human Lispro (HumaLOG) 0-7 UNITS TIDWMEALS 05/30/18 17:30 05/31/18 13:11 4 UNITS Lactulose (Lactulose) 20 gm BID 05/30/18 10:00 05/31/18 09:50 20 GM Lidocaine/Sodium Bicarbonate (Buffered Lidocaine 1%) 3 ml 1X ONCE 05/30/18 13:15 05/30/18 13:16 DC 05/30/18 13:15 5 ML Magnesium Sulfate 50 ml @ 25 mls/hr 1X ONCE 05/31/18 14:00 05/31/18 15:59 DC 05/31/18 15:20 25 MLS/HR Ondansetron HCl (Zofran) 4 mg PRN Q8HRS PRN 05/30/18 04:30 05/31/18 04:29 DC 05/30/18 04:49 4 MG Pantoprazole Sodium (Protonix) 40 mg DAILYAC 05/30/18 11:30 05/31/18 04:21 40 MG Potassium Chloride/Sodium Chloride 1,000 ml @ 75 mls/hr 1X ONCE 05/31/18 14:00 05/31/18 15:05 DC Potassium Chloride/Water 100 ml @ 100 mls/hr Q1H 05/31/18 15:15 05/31/18 17:14 DC 05/31/18 15:21 100 MLS/HR Potassium Chloride (Klor-Con) 40 meq Q2H 05/31/18 14:00 05/31/18 16:01 DC 05/31/18 15:24 40 MEQ Rifaximin (Xifaxan) 550 mg Q12HR 05/30/18 11:00 05/31/18 09:50 550 MG Sodium Bicarbonate 150 meq/Dextrose 1,150 ml @ 75 mls/hr [id number] 2/8/19 10:30 05/30/18 14:19 75 MLS/HR Lab Laboratory Tests Test 05/30/18 21:08 05/31/18 04:45 05/31/18 07:48 05/31/18 11:40 Glucose (Fingerstick) 248 mg/dL (70-99) 259 mg/dL (70-99) White Blood Count 5.1 x10^3/uL (4.0-11.0) 3.9 x10^3/uL (4.0-11.0) Red Blood Count 1.99 x10^6/uL (3.50-5.40) 1.65 x10^6/uL (3.50-5.40) Hemoglobin 5.6 g/dL (12.0-15.5) 4.6 g/dL (12.0-15.5) Hematocrit 16.8 % (36.0-47.0) 13.9 % (36.0-47.0) Mean Corpuscular Volume 84 fL (79-100) 84 fL (79-100) Mean Corpuscular Hemoglobin 28 pg (25-35) 28 pg (25-35) Mean Corpuscular Hemoglobin Concent 33 g/dL (31-37) 33 g/dL (31-37) Red Cell Distribution Width 15.7 % (11.5-14.5) 15.9 % (11.5-14.5) Platelet Count 35 x10^3/uL (140-400) 32 x10^3/uL (140-400) Neutrophils (%) (Auto) 81 % (31-73) Lymphocytes (%) (Auto) 7 % (24-48) Monocytes (%) (Auto) 9 % (0-9) Eosinophils (%) (Auto) 2 % (0-3) Basophils (%) (Auto) 1 % (0-3) Neutrophils # (Auto) 4.2 x10^3uL (1.8-7.7) Lymphocytes # (Auto) 0.3 x10^3/uL (1.0-4.8) Monocytes # (Auto) 0.5 x10^3/uL (0.0-1.1) Eosinophils # (Auto) 0.1 x10^3/uL (0.0-0.7) Basophils # (Auto) 0.0 x10^3/uL (0.0-0.2) Segmented Neutrophils % 81 % (35-66) Band Neutrophils % 6 % (0-9) Lymphocytes % 5 % (24-48) Monocytes % 7 % (0-10) Eosinophils % 1 % (0-5) Platelet Estimate Decreased (ADEQUATE) Anisocytosis Slight Target Cells Occ Tear Drop Cells Occ Ovalocytes Few Schistocytes Occ Sodium Level 134 mmol/L (136-145) Potassium Level 2.8 mmol/L (3.5-5.1) Chloride Level 97 mmol/L (98-107) Carbon Dioxide Level 15 mmol/L (21-32) Anion Gap 22 (6-14) Blood Urea Nitrogen 109 mg/dL (7-20) Creatinine 8.6 mg/dL (0.6-1.0) Estimated GFR (Cockcroft-Gault) 4.7 Glucose Level 289 mg/dL (70-99) Calcium Level 8.4 mg/dL (8.5-10.1) Hepatitis B Surface Antigen Nonreactive (Nonreactive) Hepatitis B Surface Antibody Nonreactive Test 05/31/18 11:42 05/31/18 12:30 05/31/18 16:35 Glucose (Fingerstick) 216 mg/dL (70-99) 243 mg/dL (70-99) Hemoglobin 5.4 g/dL (12.0-15.5) Hematocrit 16.2 % (36.0-47.0) Mean Corpuscular Hemoglobin Concent 33 g/dL (31-37) Sodium Level 136 mmol/L (136-145) Potassium Level 2.6 mmol/L (3.5-5.1) Chloride Level 97 mmol/L (98-107) Carbon Dioxide Level 19 mmol/L (21-32) Anion Gap 20 (6-14) Blood Urea Nitrogen 106 mg/dL (7-20) Creatinine 8.5 mg/dL (0.6-1.0) Estimated GFR (Cockcroft-Gault) 4.8 BUN/Creatinine Ratio 12 (6-20) Glucose Level 323 mg/dL (70-99) Calcium Level 7.9 mg/dL (8.5-10.1) Total Bilirubin 0.6 mg/dL (0.2-1.0) Aspartate Amino Transf (AST/SGOT) 20 U/L (15-37) Alanine Aminotransferase (ALT/SGPT) 16 U/L (14-59) Alkaline Phosphatase 132 U/L (46-116) Total Protein 5.7 g/dL (6.4-8.2) Albumin 2.7 g/dL (3.4-5.0) Albumin/Globulin Ratio 0.9 (1.0-1.7) Results All relevant outside records, renal labs, imaging studies, telemetry/EKG's were reviewed. DARLING SHORT MD May 31, 2018 17:41
[2018-05-31] MEDS ORDERED: IV NORMAL SALINE 1000ML BAG 1,000 ML IV PRN ×2 (18:06)
[2018-05-31] MEDS ORDERED: 0.9 % SODIUM CHLORIDE 10 ML DISP.SYRIN. IV PRN ×2 (18:15)
[2018-05-31] MEDS ORDERED: DIALYSIS PATIENT. MC PRN ×2 (18:15)
--- NOTE | 2018-05-31 23:57 | NUR ---
PT REFUSED HS MEDS ON RETURN FROM DIALYSIS. RN WENT BACK TO PT'S ROOM TO ASK AGAIN AT 2330 AND PT WAS AGREEABLE TO TAKE MEDICATIONS. MEDS SCANNED, PT THEN REFUSED TO TAKE HS MEDS. MEDS WASTED PER PROTOCOL
[2018-06-01 02:22] VITALS: BP 119/50
[2018-06-01] MEDS: SODIUM BICARBONATE VIAL 150 MEQ in IV DEXTROSE 5% 1,000 ML IV SCH ×3 (04:07→22:37)
[2018-06-01] MEDS: CLOTRIMAZOLE 10 MG TROCHE. MM SCH ×5 (06:00→21:07)
[2018-06-01 07:00] VITALS: BP 125/47
[2018-06-01] MEDS: rifAXIMin 550 MG TABLET PO SCH ×2 (08:13→21:07)
[2018-06-01] MEDS: LACTULOSE 20 GM/30 ML SOLUTION. PO SCH ×2 (08:13→21:08)
[2018-06-01] MEDS: PANTOPRAZOLE 40 MG TABLET.DR. PO SCH (08:13)
[2018-06-01] MEDS: INSULIN LISPRO 300 UNITS/3 ML INSULN.PEN. SQ SCH ×3 (08:26→18:51)
--- NOTE | 2018-06-01 10:37 | PDOC ---
PROGRESS NOTES Chief Complaint Chief Complaint History of Present Illness 62 y/o female w/ h/o ESLD (DIAZ) MELD 25, ?GI bleeding - last EGD 04/2017 w/ Grade 1 varices and gastriti, recurrent ascites requiring paracentesis, portal vein thrombosis, hyperammonemia who reports diarrhea at home with recent abx use (treated for UTI last admission). also with reported bloody stools. patient reportedly ate breakfast and vomited this AM. at last hospitalization request made to transfer to for transplant considerations but patient left AMA. reports taking meds as prescribed. frequent admissions for paracentesis and blood transfusions. Denies shortness of breath, fever, chills, sweats. No hematemesis coffee-ground emesis. No other complaints. hospitalist called for admission and further eval. pertinent labs in ED: Hb 7.2 (7.7 last admission). creatine 8.0 (4.5 last admission). plt 72k. INR 1.3 05/31: patient asking for PICC. lethargic this AM after getting pain meds overnight. s/p para 05/30 with 12L off 06/01. cursing at nurses, rash in perineal region, upper back looks like fungal etiology 12 L of serous ascites was removed 05/30 History of Present Illness History of Present Illness ASSESSMENT 1. Toxic metabolic encephalopathy secondary to end-stage liver disease.MELD 25, exacerbated by elevated ammonia 2. Liver Cirrhosis secondary to DIAZ, status post previous paracentesis. now with profound ascites. unable to tolerate diuretics given creatine. s/p paracentesis 05/30 with 12 liters drawn off 3. Hypertension, BP low following para. hold BP meds for now 4. Hyperlipidemia. 5. [id number] renal disease. admission creatine 8.0. now 8.6. prior creatine 4.5. secondary to hepatorenal syndrome 6 hx noncompliance 7. ESOPHAGEAL VARICES, last EGD 04/2017 w/ Grade 1 varices and gastritis 8. Bloody Stools and Diarrhea, recent abx use 9. ANEMIA, BASELINE HGB APPROX 8.5, s/p previous transfusions. Hb 5.6 on 05/31. will give 2 units of blood 10. Thrombocytopenia secondary to Liver Failure 11. Right Port in place 12. noncompliance PLAN: palliative care consult GI consulted IR consult for paracentesis, done 05/31 nephro consult given rise in creatine. no plans for HD unless on transplant list 2 units of blood today, 05/31 follow BMP, CBC daily palliative care consulted given poor prognosis in an attempt to transfer the patient to , I spoke with travel administrator Dr. Malaika Osorio on 05/30 who is familiar with the case. Because of her previous AMA signouts , non-compliance, current tobacco use she is not deemed a transplant candidate. in fact she has been taken off the transplant list all together. Dr. Osorio recommends to start HD and follow up in hepatology clinic for further considerations. Vitals Vitals Vital Signs Date Time Temp Pulse Resp B/P (MAP) Pulse Ox O2 Delivery O2 Flow Rate FiO2 06/01/18 02:22 97.0 109 16 119/50 (73) 100 Room Air 97.0 05/31/18 08:00 2.0 Physical Exam General: Alert, Oriented X3, No acute distress, mild distress Heart: Regular rate, Normal S1, Normal S2 Lungs: Clear, Other Abdomen: Soft, Other (distended , soft) Extremities: No cyanosis Labs LABS SEX: F EXAM STATUS: ADM IN ORD. PHYSICIAN: JENNIE ABRAMS REASON: ascites PROCEDURE: [id number] PARACENTESIS W/IMAGING Ultrasound-guided paracentesis 05/30/2018 4:19 PM Procedure: The risks and benefits of the procedure were discussed the patient. Informed consent was obtained. A timeout procedure was performed. Sonographic evaluation of the abdomen was performed demonstrating ascites . The right lower quadrant was prepped and draped using maximum sterile barrier technique. 1% lidocaine without epinephrine was administered for local anesthesia. Real-time ultrasonographic guidance was used in passing a 5 Sami Yueh catheter into the fluid collection. 12 L of serous ascites was removed. The catheter was removed and pressure held to achieve hemostasis. A sterile dressing was applied. Impression: Successful ultrasound-guided paracentesis DICTATED and SIGNED BY: ALFREDO ORTEGA MD DATE: 05/30/18 1619 Laboratory Tests Test 05/31/18 11:40 05/31/18 11:42 05/31/18 12:30 05/31/18 16:35 White Blood Count 3.9 x10^3/uL (4.0-11.0) Red Blood Count 1.65 x10^6/uL (3.50-5.40) Hemoglobin 4.6 g/dL (12.0-15.5) 5.4 g/dL (12.0-15.5) Hematocrit 13.9 % (36.0-47.0) 16.2 % (36.0-47.0) Mean Corpuscular Volume 84 fL (79-100) Mean Corpuscular Hemoglobin 28 pg (25-35) Mean Corpuscular Hemoglobin Concent 33 g/dL (31-37) 33 g/dL (31-37) Red Cell Distribution Width 15.9 % (11.5-14.5) Platelet Count 32 x10^3/uL (140-400) Glucose (Fingerstick) 216 mg/dL (70-99) 243 mg/dL (70-99) Sodium Level 136 mmol/L (136-145) Potassium Level 2.6 mmol/L (3.5-5.1) Chloride Level 97 mmol/L (98-107) Carbon Dioxide Level 19 mmol/L (21-32) Anion Gap 20 (6-14) Blood Urea Nitrogen 106 mg/dL (7-20) Creatinine 8.5 mg/dL (0.6-1.0) Estimated GFR (Cockcroft-Gault) 4.8 BUN/Creatinine Ratio 12 (6-20) Glucose Level 323 mg/dL (70-99) Calcium Level 7.9 mg/dL (8.5-10.1) Total Bilirubin 0.6 mg/dL (0.2-1.0) Aspartate Amino Transf (AST/SGOT) 20 U/L (15-37) Alanine Aminotransferase (ALT/SGPT) 16 U/L (14-59) Alkaline Phosphatase 132 U/L (46-116) Total Protein 5.7 g/dL (6.4-8.2) Albumin 2.7 g/dL (3.4-5.0) Albumin/Globulin Ratio 0.9 (1.0-1.7) Test 05/31/18 22:15 06/01/18 07:27 Glucose (Fingerstick) 165 mg/dL (70-99) 255 mg/dL (70-99) Assessment and Plan Assessmemt and Plan Problems Medical Problems: (1) Anemia Status: Acute (2) Lower GI bleed Status: Acute (3) Thrombocytopenia Status: Acute Comment Review of Relevant I have reviewed the following items chante (where applicable) has been applied. Labs Laboratory Tests Test 05/30/18 11:18 05/30/18 15:27 05/30/18 16:41 05/30/18 21:08 Glucose (Fingerstick) 165 mg/dL (70-99) 252 mg/dL (70-99) 248 mg/dL (70-99) Potassium Level 3.3 mmol/L (3.5-5.1) Magnesium Level 2.3 mg/dL (1.8-2.4) Ammonia 147 mcmol/L (11-34) Test 05/31/18 04:45 05/31/18 07:48 05/31/18 11:40 05/31/18 11:42 White Blood Count 5.1 x10^3/uL (4.0-11.0) 3.9 x10^3/uL (4.0-11.0) Red Blood Count 1.99 x10^6/uL (3.50-5.40) 1.65 x10^6/uL (3.50-5.40) Hemoglobin 5.6 g/dL (12.0-15.5) 4.6 g/dL (12.0-15.5) Hematocrit 16.8 % (36.0-47.0) 13.9 % (36.0-47.0) Mean Corpuscular Volume 84 fL (79-100) 84 fL (79-100) Mean Corpuscular Hemoglobin 28 pg (25-35) 28 pg (25-35) Mean Corpuscular Hemoglobin Concent 33 g/dL (31-37) 33 g/dL (31-37) Red Cell Distribution Width 15.7 % (11.5-14.5) 15.9 % (11.5-14.5) Platelet Count 35 x10^3/uL (140-400) 32 x10^3/uL (140-400) Neutrophils (%) (Auto) 81 % (31-73) Lymphocytes (%) (Auto) 7 % (24-48) Monocytes (%) (Auto) 9 % (0-9) Eosinophils (%) (Auto) 2 % (0-3) Basophils (%) (Auto) 1 % (0-3) Neutrophils # (Auto) 4.2 x10^3uL (1.8-7.7) Lymphocytes # (Auto) 0.3 x10^3/uL (1.0-4.8) Monocytes # (Auto) 0.5 x10^3/uL (0.0-1.1) Eosinophils # (Auto) 0.1 x10^3/uL (0.0-0.7) Basophils # (Auto) 0.0 x10^3/uL (0.0-0.2) Segmented Neutrophils % 81 % (35-66) Band Neutrophils % 6 % (0-9) Lymphocytes % 5 % (24-48) Monocytes % 7 % (0-10) Eosinophils % 1 % (0-5) Platelet Estimate Decreased (ADEQUATE) Anisocytosis Slight Target Cells Occ Tear Drop Cells Occ Ovalocytes Few Schistocytes Occ Sodium Level 134 mmol/L (136-145) Potassium Level 2.8 mmol/L (3.5-5.1) Chloride Level 97 mmol/L (98-107) Carbon Dioxide Level 15 mmol/L (21-32) Anion Gap 22 (6-14) Blood Urea Nitrogen 109 mg/dL (7-20) Creatinine 8.6 mg/dL (0.6-1.0) Estimated GFR (Cockcroft-Gault) 4.7 Glucose Level 289 mg/dL (70-99) Calcium Level 8.4 mg/dL (8.5-10.1) Hepatitis B Surface Antigen Nonreactive (Nonreactive) Hepatitis B Surface Antibody Nonreactive Glucose (Fingerstick) 259 mg/dL (70-99) 216 mg/dL (70-99) Test 05/31/18 12:30 05/31/18 16:35 05/31/18 22:15 06/01/18 07:27 Hemoglobin 5.4 g/dL (12.0-15.5) Hematocrit 16.2 % (36.0-47.0) Mean Corpuscular Hemoglobin Concent 33 g/dL (31-37) Sodium Level 136 mmol/L (136-145) Potassium Level 2.6 mmol/L (3.5-5.1) Chloride Level 97 mmol/L (98-107) Carbon Dioxide Level 19 mmol/L (21-32) Anion Gap 20 (6-14) Blood Urea Nitrogen 106 mg/dL (7-20) Creatinine 8.5 mg/dL (0.6-1.0) Estimated GFR (Cockcroft-Gault) 4.8 BUN/Creatinine Ratio 12 (6-20) Glucose Level 323 mg/dL (70-99) Calcium Level 7.9 mg/dL (8.5-10.1) Total Bilirubin 0.6 mg/dL (0.2-1.0) Aspartate Amino Transf (AST/SGOT) 20 U/L (15-37) Alanine Aminotransferase (ALT/SGPT) 16 U/L (14-59) Alkaline Phosphatase 132 U/L (46-116) Total Protein 5.7 g/dL (6.4-8.2) Albumin 2.7 g/dL (3.4-5.0) Albumin/Globulin Ratio 0.9 (1.0-1.7) Glucose (Fingerstick) 243 mg/dL (70-99) 165 mg/dL (70-99) 255 mg/dL (70-99) Laboratory Tests Test 05/31/18 11:40 05/31/18 11:42 05/31/18 12:30 05/31/18 16:35 White Blood Count 3.9 x10^3/uL (4.0-11.0) Red Blood Count 1.65 x10^6/uL (3.50-5.40) Hemoglobin 4.6 g/dL (12.0-15.5) 5.4 g/dL (12.0-15.5) Hematocrit 13.9 % (36.0-47.0) 16.2 % (36.0-47.0) Mean Corpuscular Volume 84 fL (79-100) Mean Corpuscular Hemoglobin 28 pg (25-35) Mean Corpuscular Hemoglobin Concent 33 g/dL (31-37) 33 g/dL (31-37) Red Cell Distribution Width 15.9 % (11.5-14.5) Platelet Count 32 x10^3/uL (140-400) Glucose (Fingerstick) 216 mg/dL (70-99) 243 mg/dL (70-99) Sodium Level 136 mmol/L (136-145) Potassium Level 2.6 mmol/L (3.5-5.1) Chloride Level 97 mmol/L (98-107) Carbon Dioxide Level 19 mmol/L (21-32) Anion Gap 20 (6-14) Blood Urea Nitrogen 106 mg/dL (7-20) Creatinine 8.5 mg/dL (0.6-1.0) Estimated GFR (Cockcroft-Gault) 4.8 BUN/Creatinine Ratio 12 (6-20) Glucose Level 323 mg/dL (70-99) Calcium Level 7.9 mg/dL (8.5-10.1) Total Bilirubin 0.6 mg/dL (0.2-1.0) Aspartate Amino Transf (AST/SGOT) 20 U/L (15-37) Alanine Aminotransferase (ALT/SGPT) 16 U/L (14-59) Alkaline Phosphatase 132 U/L (46-116) Total Protein 5.7 g/dL (6.4-8.2) Albumin 2.7 g/dL (3.4-5.0) Albumin/Globulin Ratio 0.9 (1.0-1.7) Test 05/31/18 22:15 06/01/18 07:27 Glucose (Fingerstick) 165 mg/dL (70-99) 255 mg/dL (70-99) Medications Current Medications Ondansetron HCl (Zofran) 4 mg PRN Q8HRS PRN IV NAUSEA/VOMITING Last administered on 05/30/18 04:49; Start 05/30/18 at 04:30; Stop 05/31/18 at 04:29; Status DC Fentanyl Citrate (Fentanyl 2ml Vial) 25 mcg Q2HR W/A PRN IV PAIN Last administered on 05/30/18at 04:50; Start 05/30/18 at 04:30; Stop 05/30/18 at 04:52; Status DC Fentanyl Citrate (Fentanyl 2ml Vial) 25 mcg PRN Q2HRS PRN IV PAIN Q2HRS W/A Last administered on 05/30/18at 23:54; Start 05/30/18 at 05:00 Pantoprazole Sodium (Protonix) 40 mg DAILYAC PO Last administered on 06/01/18at 08:13; Start 05/30/18 at 11:30 Rifaximin (Xifaxan) 550 mg Q12HR PO Last administered on 06/01/18at 08:13; Start 05/30/18 at 11:00 Lactulose (Lactulose) 20 gm BID PO Last administered on 06/01/18at 08:13; Start 05/30/18 at 10:00 Sodium Bicarbonate 150 meq/Dextrose 1,150 ml @ 75 mls/hr [id number] IV Last administered on 06/01/18at 04:07; Start 05/30/18 at 10:30 Lidocaine/Sodium Bicarbonate (Buffered Lidocaine 1%) 3 ml 1X ONCE INJ Last administered on 05/30/18 13:15; Start 05/30/18 at 13:15; Stop 05/30/18 at 13:16; Status DC Albumin Human 100 ml @ 100 mls/hr 1X ONCE IV Last administered on 05/30/18 13 :26; Start 05/30/18 at 14:00; Stop 05/30/18 at 14:59; Status DC Albumin Human 100 ml @ 100 mls/hr 1X ONCE IV Last administered on 05/30/18 16 :32; Start 05/30/18 at 15:00; Stop 05/30/18 at 15:59; Status DC Albumin Human 100 ml @ 100 mls/hr 1X ONCE IV Last administered on 05/30/18at 14 :19; Start 05/30/18 at 13:30; Stop 05/30/18 at 14:29; Status DC Insulin Human Lispro (HumaLOG) 0-7 UNITS TIDWMEALS SQ Last administered on 06/01at 08:26; Start 05/30/18 at 17:30 Dextrose (Dextrose 50%-Water Syringe) 12.5 gm PRN Q15MIN PRN IV SEE COMMENTS; Start 05/30/18 at 17:30 Clotrimazole (Mycelex) 10 mg 5XDAY MM Last administered on 06/01/18at 08:13; Start 05/30/18 at 22:00 Potassium Chloride (Klor-Con) 40 meq 1X ONCE PO Last administered on 05/30/18at 20:54; Start 05/30/18 at 19:30; Stop 05/30/18 at 19:31; Status DC Potassium Chloride (Klor-Con) 40 meq 1X ONCE PO ; Start 05/31/18 at 06:30; Stop 05/31/18 at 06:31; Status DC Potassium Chloride (Klor-Con) 40 meq 1X ONCE PO Last administered on 05/31/18at 09:50; Start 05/31/18 at 08:30; Stop 05/31/18 at 08:31; Status DC Potassium Chloride/Sodium Chloride 1,000 ml @ 75 mls/hr 1X ONCE IV ; Start 05/31/18 at 14:00; Stop 05/31/18 at 15:05; Status DC Potassium Chloride (Klor-Con) 40 meq Q2H PO Last administered on 05/31/18at 17:52 ; Start 05/31/18 at 14:00; Stop 05/31/18 at 16:01; Status DC Magnesium Sulfate 50 ml @ 25 mls/hr 1X ONCE IV Last administered on 05/31/18at 15:20; Start 05/31/18 at 14:00; Stop 05/31/18 at 15:59; Status DC Potassium Chloride/Water 100 ml @ 100 mls/hr Q1H IV Last administered on at 17:51; Start 05/31/18 at 15:15; Stop 05/31/18 at 17:14; Status DC Sodium Chloride 1,000 ml @ 1,000 mls/hr Q1H PRN IV hypotension; Start 05/31/18 at 18:06; Stop 06/01/18 at 00:05; Status DC Sodium Chloride (Normal Saline Flush) 10 ml 1X PRN PRN IV AP catheter pack; Start 05/31/18 at 18:15; Stop 06/01/18 at 18:14 Sodium Chloride (Normal Saline Flush) 10 ml 1X PRN PRN IV [employer] catheter pack; Start 05/31/18 at 18:15; Stop 06/01/18 at 18:14 Sodium Chloride 1,000 ml @ 400 mls/hr Q2H30M PRN IV PATENCY; Start 05/31/18 at 18:06; Stop 06/01/18 at 06:05; Status DC Info (PHARMACY MONITORING -- do not chart) 1 each PRN DAILY PRN MC SEE COMMENTS ; Start 05/31/18 at 18:15; Status UNV Info (PHARMACY MONITORING -- do not chart) 1 each PRN DAILY PRN MC SEE COMMENTS ; Start 05/31/18 at 18:15 Active Scripts Active Reported Omeprazole 40 Mg Capsule.dr 1 Cap PO DAILY Xifaxan (Rifaximin) 550 Mg Tablet 1 Tab PO BID Nystatin 100,000 Unit/1 Ml Oral.susp 5 Ml PO QID Fusion Plus Capsule (Iron,Fum&Ps/Fa/Vit B&C#18/L.ca) 1 Each Capsule 1 Each PO Albuterol Sulfate Conc Neb Soln (Albuterol Sulfate) 2.5 Mg/0.5 Ml Vial.neb 2.5 Mg NEB Q6HRS PRN Lactulose 20 Gm/30 Ml Solution 20 Gm PO TID Lantus Solostar (Insulin Glargine,Hum.rec.anlog) 100 Unit/1 Ml Insuln.pen 0 SQ HS SSI Calcium + Vitamin D Tablet (Calcium Carbonate/Vitamin D3) 1 Each Tablet 1 Each PO Albuterol Sulfate Hfa Inhaler (Albuterol Sulfate) 8.5 Gm Hfa.aer.ad 8.5 Gm IH Novolog Flexpen (Insulin Aspart) 100 Unit/1 Ml Insuln.pen 0 SQ TIDAC ssi Synthroid (Levothyroxine Sodium) 25 Mcg Tablet 300 Mcg PO DAILY Flovent 110MCG Hfa (Fluticasone Propionate) 12 Gm Aer.w.adap 12 Gm IH Vitals/I & O Vital Sign - Last 24 Hours 05/31/18 05/31/18 05/31/18 05/31/18 11:17 15:23 18:45 19:00 Temp 98.1 97.6 97.8 97.6 98.1 97.6 97.8 97.6 Pulse 95 100 99 101 Resp 20 18 18 18 B/P (MAP) 100/32 (54) 86/37 (53) 112/48 98/38 Pulse Ox 100 97 O2 Delivery Room Air Room Air 05/31/18 05/31/18 05/31/18 06/01/18 19:30 22:00 22:07 02:22 Temp 97.0 96.8 97.0 97.0 96.8 97.0 Pulse 111 107 109 Resp 18 18 16 B/P (MAP) 143/56 116/43 (67) 119/50 (73) Pulse Ox 100 100 O2 Delivery Room Air Room Air Room Air Intake and Output 05/31/18 05/31/18 06/01/18 15:01 23:01 07:01 Intake Total 480 ml 170 ml 0 ml Balance 480 ml 170 ml 0 ml CHUCK RIVERA MD Jun 01, 2018 10:37
[2018-06-01 11:00] VITALS: BP 129/53
--- NOTE | 2018-06-01 14:33 | PDOC ---
G I PROGRESS NOTE Reason for Follow-up Cirrhosis Subjective Confused Physical Exam Lungs decreased BS CV S1 S2 ABD distended abd,+ fluid wave Review of Relevant I have reviewed the following items chante (where applicable) has been applied. Labs Laboratory Tests Test 05/30/18 15:27 05/30/18 16:41 05/30/18 21:08 05/31/18 04:45 Potassium Level 3.3 mmol/L (3.5-5.1) 2.8 mmol/L (3.5-5.1) Magnesium Level 2.3 mg/dL (1.8-2.4) Ammonia 147 mcmol/L (11-34) Glucose (Fingerstick) 252 mg/dL (70-99) 248 mg/dL (70-99) White Blood Count 5.1 x10^3/uL (4.0-11.0) Red Blood Count 1.99 x10^6/uL (3.50-5.40) Hemoglobin 5.6 g/dL (12.0-15.5) Hematocrit 16.8 % (36.0-47.0) Mean Corpuscular Volume 84 fL (79-100) Mean Corpuscular Hemoglobin 28 pg (25-35) Mean Corpuscular Hemoglobin Concent 33 g/dL (31-37) Red Cell Distribution Width 15.7 % (11.5-14.5) Platelet Count 35 x10^3/uL (140-400) Neutrophils (%) (Auto) 81 % (31-73) Lymphocytes (%) (Auto) 7 % (24-48) Monocytes (%) (Auto) 9 % (0-9) Eosinophils (%) (Auto) 2 % (0-3) Basophils (%) (Auto) 1 % (0-3) Neutrophils # (Auto) 4.2 x10^3uL (1.8-7.7) Lymphocytes # (Auto) 0.3 x10^3/uL (1.0-4.8) Monocytes # (Auto) 0.5 x10^3/uL (0.0-1.1) Eosinophils # (Auto) 0.1 x10^3/uL (0.0-0.7) Basophils # (Auto) 0.0 x10^3/uL (0.0-0.2) Segmented Neutrophils % 81 % (35-66) Band Neutrophils % 6 % (0-9) Lymphocytes % 5 % (24-48) Monocytes % 7 % (0-10) Eosinophils % 1 % (0-5) Platelet Estimate Decreased (ADEQUATE) Anisocytosis Slight Target Cells Occ Tear Drop Cells Occ Ovalocytes Few Schistocytes Occ Sodium Level 134 mmol/L (136-145) Chloride Level 97 mmol/L (98-107) Carbon Dioxide Level 15 mmol/L (21-32) Anion Gap 22 (6-14) Blood Urea Nitrogen 109 mg/dL (7-20) Creatinine 8.6 mg/dL (0.6-1.0) Estimated GFR (Cockcroft-Gault) 4.7 Glucose Level 289 mg/dL (70-99) Calcium Level 8.4 mg/dL (8.5-10.1) Hepatitis B Surface Antigen Nonreactive (Nonreactive) Hepatitis B Surface Antibody Nonreactive Test 05/31/18 07:48 05/31/18 11:40 05/31/18 11:42 05/31/18 12:30 Glucose (Fingerstick) 259 mg/dL (70-99) 216 mg/dL (70-99) White Blood Count 3.9 x10^3/uL (4.0-11.0) Red Blood Count 1.65 x10^6/uL (3.50-5.40) Hemoglobin 4.6 g/dL (12.0-15.5) 5.4 g/dL (12.0-15.5) Hematocrit 13.9 % (36.0-47.0) 16.2 % (36.0-47.0) Mean Corpuscular Volume 84 fL (79-100) Mean Corpuscular Hemoglobin 28 pg (25-35) Mean Corpuscular Hemoglobin Concent 33 g/dL (31-37) 33 g/dL (31-37) Red Cell Distribution Width 15.9 % (11.5-14.5) Platelet Count 32 x10^3/uL (140-400) Sodium Level 136 mmol/L (136-145) Potassium Level 2.6 mmol/L (3.5-5.1) Chloride Level 97 mmol/L (98-107) Carbon Dioxide Level 19 mmol/L (21-32) Anion Gap 20 (6-14) Blood Urea Nitrogen 106 mg/dL (7-20) Creatinine 8.5 mg/dL (0.6-1.0) Estimated GFR (Cockcroft-Gault) 4.8 BUN/Creatinine Ratio 12 (6-20) Glucose Level 323 mg/dL (70-99) Calcium Level 7.9 mg/dL (8.5-10.1) Total Bilirubin 0.6 mg/dL (0.2-1.0) Aspartate Amino Transf (AST/SGOT) 20 U/L (15-37) Alanine Aminotransferase (ALT/SGPT) 16 U/L (14-59) Alkaline Phosphatase 132 U/L (46-116) Total Protein 5.7 g/dL (6.4-8.2) Albumin 2.7 g/dL (3.4-5.0) Albumin/Globulin Ratio 0.9 (1.0-1.7) Test 05/31/18 16:35 05/31/18 22:15 06/01/18 07:27 Glucose (Fingerstick) 243 mg/dL (70-99) 165 mg/dL (70-99) 255 mg/dL (70-99) Laboratory Tests Test 05/31/18 16:35 05/31/18 22:15 06/01/18 07:27 Glucose (Fingerstick) 243 mg/dL (70-99) 165 mg/dL (70-99) 255 mg/dL (70-99) Medications Current Medications Ondansetron HCl (Zofran) 4 mg PRN Q8HRS PRN IV NAUSEA/VOMITING Last administered on 05/30/18 04:49; Start 05/30/18 at 04:30; Stop 05/31/18 at 04:29; Status DC Fentanyl Citrate (Fentanyl 2ml Vial) 25 mcg Q2HR W/A PRN IV PAIN Last administered on 05/30/18at 04:50; Start 05/30/18 at 04:30; Stop 05/30/18 at 04:52; Status DC Fentanyl Citrate (Fentanyl 2ml Vial) 25 mcg PRN Q2HRS PRN IV PAIN Q2HRS W/A Last administered on 05/30/18at 23:54; Start 05/30/18 at 05:00 Pantoprazole Sodium (Protonix) 40 mg DAILYAC PO Last administered on 06/01/18at 08:13; Start 05/30/18 at 11:30 Rifaximin (Xifaxan) 550 mg Q12HR PO Last administered on 06/01/18 08:13; Start 05/30/18 at 11:00 Lactulose (Lactulose) 20 gm BID PO Last administered on 06/01/18 08:13; Start 05/30/18 at 10:00; Stop 06/01/18 at 14:13; Status DC Sodium Bicarbonate 150 meq/Dextrose 1,150 ml @ 75 mls/hr [id number] IV Last administered on 06/01/18at 04:07; Start 05/30/18 at 10:30 Lidocaine/Sodium Bicarbonate (Buffered Lidocaine 1%) 3 ml 1X ONCE INJ Last administered on 05/30/18 13:15; Start 05/30/18 at 13:15; Stop 05/30/18 at 13:16; Status DC Albumin Human 100 ml @ 100 mls/hr 1X ONCE IV Last administered on 05/30/18 13 :26; Start 05/30/18 at 14:00; Stop 05/30/18 at 14:59; Status DC Albumin Human 100 ml @ 100 mls/hr 1X ONCE IV Last administered on 05/30/18 16 :32; Start 05/30/18 at 15:00; Stop 05/30/18 at 15:59; Status DC Albumin Human 100 ml @ 100 mls/hr 1X ONCE IV Last administered on 05/30/18 14 :19; Start 05/30/18 at 13:30; Stop 05/30/18 at 14:29; Status DC Insulin Human Lispro (HumaLOG) 0-7 UNITS TIDWMEALS SQ Last administered on 06/01 08:26; Start 05/30/18 at 17:30 Dextrose (Dextrose 50%-Water Syringe) 12.5 gm PRN Q15MIN PRN IV SEE COMMENTS; Start 05/30/18 at 17:30 Clotrimazole (Mycelex) 10 mg 5XDAY MM Last administered on 06/01/18 14:26; Start 05/30/18 at 22:00 Potassium Chloride (Klor-Con) 40 meq 1X ONCE PO Last administered on 05/30/18at 20:54; Start 05/30/18 at 19:30; Stop 05/30/18 at 19:31; Status DC Potassium Chloride (Klor-Con) 40 meq 1X ONCE PO ; Start 05/31/18 at 06:30; Stop 05/31/18 at 06:31; Status DC Potassium Chloride (Klor-Con) 40 meq 1X ONCE PO Last administered on 05/31/18at 09:50; Start 05/31/18 at 08:30; Stop 05/31/18 at 08:31; Status DC Potassium Chloride/Sodium Chloride 1,000 ml @ 75 mls/hr 1X ONCE IV ; Start 05/31/18 at 14:00; Stop 05/31/18 at 15:05; Status DC Potassium Chloride (Klor-Con) 40 meq Q2H PO Last administered on 05/31/18at 17:52 ; Start 05/31/18 at 14:00; Stop 05/31/18 at 16:01; Status DC Magnesium Sulfate 50 ml @ 25 mls/hr 1X ONCE IV Last administered on 05/31/18at 15:20; Start 05/31/18 at 14:00; Stop 05/31/18 at 15:59; Status DC Potassium Chloride/Water 100 ml @ 100 mls/hr Q1H IV Last administered on at 17:51; Start 05/31/18 at 15:15; Stop 05/31/18 at 17:14; Status DC Sodium Chloride 1,000 ml @ 1,000 mls/hr Q1H PRN IV hypotension; Start 05/31/18 at 18:06; Stop 06/01/18 at 00:05; Status DC Sodium Chloride (Normal Saline Flush) 10 ml 1X PRN PRN IV AP catheter pack; Start 05/31/18 at 18:15; Stop 06/01/18 at 18:14 Sodium Chloride (Normal Saline Flush) 10 ml 1X PRN PRN IV [employer] catheter pack; Start 05/31/18 at 18:15; Stop 06/01/18 at 18:14 Sodium Chloride 1,000 ml @ 400 mls/hr Q2H30M PRN IV PATENCY; Start 05/31/18 at 18:06; Stop 06/01/18 at 06:05; Status DC Info (PHARMACY MONITORING -- do not chart) 1 each PRN DAILY PRN MC SEE COMMENTS ; Start 05/31/18 at 18:15; Status UNV Info (PHARMACY MONITORING -- do not chart) 1 each PRN DAILY PRN MC SEE COMMENTS ; Start 05/31/18 at 18:15 Lactulose (Lactulose) 30 gm BID PO ; Start 06/01/18 at 21:00 Nystatin (Nystop) 1 kiana BID TP ; Start 06/01/18 at 15:00 Tolnaftate (Tinactin) 1 kiana BID TP ; Start 06/01/18 at 15:00 Nystatin (Nystop) 1 kiana 5XDAY TP ; Start 06/01/18 at 18:00; Status UNV Active Scripts Active Reported Omeprazole 40 Mg Capsule.dr 1 Cap PO DAILY Xifaxan (Rifaximin) 550 Mg Tablet 1 Tab PO BID Nystatin 100,000 Unit/1 Ml Oral.susp 5 Ml PO QID Fusion Plus Capsule (Iron,Fum&Ps/Fa/Vit B&C#18/L.ca) 1 Each Capsule 1 Each PO Albuterol Sulfate Conc Neb Soln (Albuterol Sulfate) 2.5 Mg/0.5 Ml Vial.neb 2.5 Mg NEB Q6HRS PRN Lactulose 20 Gm/30 Ml Solution 20 Gm PO TID Lantus Solostar (Insulin Glargine,Hum.rec.anlog) 100 Unit/1 Ml Insuln.pen 0 SQ HS SSI Calcium + Vitamin D Tablet (Calcium Carbonate/Vitamin D3) 1 Each Tablet 1 Each PO Albuterol Sulfate Hfa Inhaler (Albuterol Sulfate) 8.5 Gm Hfa.aer.ad 8.5 Gm IH Novolog Flexpen (Insulin Aspart) 100 Unit/1 Ml Insuln.pen 0 SQ TIDAC ssi Synthroid (Levothyroxine Sodium) 25 Mcg Tablet 300 Mcg PO DAILY Flovent 110MCG Hfa (Fluticasone Propionate) 12 Gm Aer.w.adap 12 Gm IH Vitals/I & O Vital Sign - Last 24 Hours 05/31/18 05/31/18 05/31/18 05/31/18 15:23 18:45 19:00 19:30 Temp 97.6 97.8 97.6 97.0 97.6 97.8 97.6 97.0 Pulse 100 99 101 111 Resp 18 18 18 18 B/P (MAP) 86/37 (53) 112/48 98/38 143/56 Pulse Ox 97 O2 Delivery Room Air 05/31/18 05/31/18 06/01/1810/19 22:00 22:07 02:22 07:00 Temp 96.8 97.0 98.8 96.8 97.0 98.8 Pulse 107 109 96 Resp 18 16 16 B/P (MAP) 116/43 (67) 119/50 (73) 125/47 (73) Pulse Ox 100 100 100 O2 Delivery Room Air Room Air Room Air Room Air 06/01/18 11:00 Temp 98.3 98.3 Pulse 100 Resp 16 B/P (MAP) 129/53 (78) Pulse Ox 98 O2 Delivery Room Air Intake and Output 05/31/18 05/31/18 06/01/18 15:01 23:01 07:01 Intake Total 480 ml 170 ml 0 ml Balance 480 ml 170 ml 0 ml Problem List Problems Medical Problems: (1) Anemia Status: Acute (2) Lower GI bleed Status: Acute (3) Thrombocytopenia Status: Acute Assessment Cirrhosis- with hepatorenal syndrome, severe anemai with antibiodies, interval blood count ordered, auto-transfusions for Hg < 7, prognosis guarded RUEL WILCOX MD Jun 01, 2018 14:33
--- NOTE | 2018-06-01 14:48 | PDOC ---
PROGRESS NOTES Assessment Problems Medical Problems: (1) Anemia Status: Acute (2) Lower GI bleed Status: Acute (3) Thrombocytopenia Status: Acute Metabolic encephalopathy, hepatic, uremic, anemic, certainly plenty of explanations for her altered mental status. Family told me yesterday that she is at her baseline. I find no evidence of any ongoing seizure activity. I find no evidence of central nervous system infection or stroke. There are no focal findings. Patient has been rude to nurses Plan Does not need additional studies such as CT of the head and electroencephalogram Will follow Subjective Denies pain Objective Vital Signs Date Time Temp Pulse Resp B/P (MAP) Pulse Ox O2 Delivery O2 Flow Rate FiO2 06/01/18 11:00 98.3 100 16 129/53 (78) 98 Room Air 98.3 05/31/18 08:00 2.0 Intake and Output 06/01/18 07:01 Intake Total 650 ml Balance 650 ml Intake Oral 480 ml Blood Product IV Normal Saline Flush 170 ml # Voids 3 # Bowel Movements 4 PHYSICAL EXAM Somnolent arouses easily, oriented to place and person, a few days off on date. PERRL. EOMI. CN: no focal findings. Muscle tone: normal. Muscle strength: 5/5 DTR: 2+ Plantar reflex: Flexor Gait: not examined in bed. Sensory exam: no abnormal findings. No cerebellar signs elicited. Still has bilateral asterixis Review of Relevant I have reviewed the following items chante (where applicable) has been applied. Labs Laboratory Tests Test 05/30/18 15:27 05/30/18 16:41 05/30/18 21:08 05/31/18 04:45 Potassium Level 3.3 mmol/L (3.5-5.1) 2.8 mmol/L (3.5-5.1) Magnesium Level 2.3 mg/dL (1.8-2.4) Ammonia 147 mcmol/L (11-34) Glucose (Fingerstick) 252 mg/dL (70-99) 248 mg/dL (70-99) White Blood Count 5.1 x10^3/uL (4.0-11.0) Red Blood Count 1.99 x10^6/uL (3.50-5.40) Hemoglobin 5.6 g/dL (12.0-15.5) Hematocrit 16.8 % (36.0-47.0) Mean Corpuscular Volume 84 fL (79-100) Mean Corpuscular Hemoglobin 28 pg (25-35) Mean Corpuscular Hemoglobin Concent 33 g/dL (31-37) Red Cell Distribution Width 15.7 % (11.5-14.5) Platelet Count 35 x10^3/uL (140-400) Neutrophils (%) (Auto) 81 % (31-73) Lymphocytes (%) (Auto) 7 % (24-48) Monocytes (%) (Auto) 9 % (0-9) Eosinophils (%) (Auto) 2 % (0-3) Basophils (%) (Auto) 1 % (0-3) Neutrophils # (Auto) 4.2 x10^3uL (1.8-7.7) Lymphocytes # (Auto) 0.3 x10^3/uL (1.0-4.8) Monocytes # (Auto) 0.5 x10^3/uL (0.0-1.1) Eosinophils # (Auto) 0.1 x10^3/uL (0.0-0.7) Basophils # (Auto) 0.0 x10^3/uL (0.0-0.2) Segmented Neutrophils % 81 % (35-66) Band Neutrophils % 6 % (0-9) Lymphocytes % 5 % (24-48) Monocytes % 7 % (0-10) Eosinophils % 1 % (0-5) Platelet Estimate Decreased (ADEQUATE) Anisocytosis Slight Target Cells Occ Tear Drop Cells Occ Ovalocytes Few Schistocytes Occ Sodium Level 134 mmol/L (136-145) Chloride Level 97 mmol/L (98-107) Carbon Dioxide Level 15 mmol/L (21-32) Anion Gap 22 (6-14) Blood Urea Nitrogen 109 mg/dL (7-20) Creatinine 8.6 mg/dL (0.6-1.0) Estimated GFR (Cockcroft-Gault) 4.7 Glucose Level 289 mg/dL (70-99) Calcium Level 8.4 mg/dL (8.5-10.1) Hepatitis B Surface Antigen Nonreactive (Nonreactive) Hepatitis B Surface Antibody Nonreactive Test 05/31/18 07:48 05/31/18 11:40 05/31/18 11:42 05/31/18 12:30 Glucose (Fingerstick) 259 mg/dL (70-99) 216 mg/dL (70-99) White Blood Count 3.9 x10^3/uL (4.0-11.0) Red Blood Count 1.65 x10^6/uL (3.50-5.40) Hemoglobin 4.6 g/dL (12.0-15.5) 5.4 g/dL (12.0-15.5) Hematocrit 13.9 % (36.0-47.0) 16.2 % (36.0-47.0) Mean Corpuscular Volume 84 fL (79-100) Mean Corpuscular Hemoglobin 28 pg (25-35) Mean Corpuscular Hemoglobin Concent 33 g/dL (31-37) 33 g/dL (31-37) Red Cell Distribution Width 15.9 % (11.5-14.5) Platelet Count 32 x10^3/uL (140-400) Sodium Level 136 mmol/L (136-145) Potassium Level 2.6 mmol/L (3.5-5.1) Chloride Level 97 mmol/L (98-107) Carbon Dioxide Level 19 mmol/L (21-32) Anion Gap 20 (6-14) Blood Urea Nitrogen 106 mg/dL (7-20) Creatinine 8.5 mg/dL (0.6-1.0) Estimated GFR (Cockcroft-Gault) 4.8 BUN/Creatinine Ratio 12 (6-20) Glucose Level 323 mg/dL (70-99) Calcium Level 7.9 mg/dL (8.5-10.1) Total Bilirubin 0.6 mg/dL (0.2-1.0) Aspartate Amino Transf (AST/SGOT) 20 U/L (15-37) Alanine Aminotransferase (ALT/SGPT) 16 U/L (14-59) Alkaline Phosphatase 132 U/L (46-116) Total Protein 5.7 g/dL (6.4-8.2) Albumin 2.7 g/dL (3.4-5.0) Albumin/Globulin Ratio 0.9 (1.0-1.7) Test 05/31/18 16:35 05/31/18 22:15 06/01/18 07:27 Glucose (Fingerstick) 243 mg/dL (70-99) 165 mg/dL (70-99) 255 mg/dL (70-99) Laboratory Tests Test 05/31/18 16:35 05/31/18 22:15 06/01/18 07:27 Glucose (Fingerstick) 243 mg/dL (70-99) 165 mg/dL (70-99) 255 mg/dL (70-99) Medications Current Medications Ondansetron HCl (Zofran) 4 mg PRN Q8HRS PRN IV NAUSEA/VOMITING Last administered on 05/30/18 04:49; Start 05/30/18 at 04:30; Stop 05/31/18 at 04:29; Status DC Fentanyl Citrate (Fentanyl 2ml Vial) 25 mcg Q2HR W/A PRN IV PAIN Last administered on 05/30/18 04:50; Start 05/30/18 at 04:30; Stop 05/30/18 at 04:52; Status DC Fentanyl Citrate (Fentanyl 2ml Vial) 25 mcg PRN Q2HRS PRN IV PAIN Q2HRS W/A Last administered on 05/30/18at 23:54; Start 05/30/18 at 05:00 Pantoprazole Sodium (Protonix) 40 mg DAILYAC PO Last administered on 06/01/18 08:13; Start 05/30/18 at 11:30 Rifaximin (Xifaxan) 550 mg Q12HR PO Last administered on 06/01/18 08:13; Start 05/30/18 at 11:00 Lactulose (Lactulose) 20 gm BID PO Last administered on 06/01/18 08:13; Start 05/30/18 at 10:00; Stop 06/01/18 at 14:13; Status DC Sodium Bicarbonate 150 meq/Dextrose 1,150 ml @ 75 mls/hr [id number] IV Last administered on 06/01/18 04:07; Start 05/30/18 at 10:30 Lidocaine/Sodium Bicarbonate (Buffered Lidocaine 1%) 3 ml 1X ONCE INJ Last administered on 05/30/18 13:15; Start 05/30/18 at 13:15; Stop 05/30/18 at 13:16; Status DC Albumin Human 100 ml @ 100 mls/hr 1X ONCE IV Last administered on 05/30/18 13 :26; Start 05/30/18 at 14:00; Stop 05/30/18 at 14:59; Status DC Albumin Human 100 ml @ 100 mls/hr 1X ONCE IV Last administered on 05/30/18at 16 :32; Start 05/30/18 at 15:00; Stop 05/30/18 at 15:59; Status DC Albumin Human 100 ml @ 100 mls/hr 1X ONCE IV Last administered on 05/30/18at 14 :19; Start 05/30/18 at 13:30; Stop 05/30/18 at 14:29; Status DC Insulin Human Lispro (HumaLOG) 0-7 UNITS TIDWMEALS SQ Last administered on 06/01at 08:26; Start 05/30/18 at 17:30 Dextrose (Dextrose 50%-Water Syringe) 12.5 gm PRN Q15MIN PRN IV SEE COMMENTS; Start 05/30/18 at 17:30 Clotrimazole (Mycelex) 10 mg 5XDAY MM Last administered on 06/01/18at 14:26; Start 05/30/18 at 22:00 Potassium Chloride (Klor-Con) 40 meq 1X ONCE PO Last administered on 05/30/18at 20:54; Start 05/30/18 at 19:30; Stop 05/30/18 at 19:31; Status DC Potassium Chloride (Klor-Con) 40 meq 1X ONCE PO ; Start 05/31/18 at 06:30; Stop 05/31/18 at 06:31; Status DC Potassium Chloride (Klor-Con) 40 meq 1X ONCE PO Last administered on 05/31/18at 09:50; Start 05/31/18 at 08:30; Stop 05/31/18 at 08:31; Status DC Potassium Chloride/Sodium Chloride 1,000 ml @ 75 mls/hr 1X ONCE IV ; Start 05/31/18 at 14:00; Stop 05/31/18 at 15:05; Status DC Potassium Chloride (Klor-Con) 40 meq Q2H PO Last administered on 05/31/18at 17:52 ; Start 05/31/18 at 14:00; Stop 05/31/18 at 16:01; Status DC Magnesium Sulfate 50 ml @ 25 mls/hr 1X ONCE IV Last administered on 05/31/18at 15:20; Start 05/31/18 at 14:00; Stop 05/31/18 at 15:59; Status DC Potassium Chloride/Water 100 ml @ 100 mls/hr Q1H IV Last administered on at 17:51; Start 05/31/18 at 15:15; Stop 05/31/18 at 17:14; Status DC Sodium Chloride 1,000 ml @ 1,000 mls/hr Q1H PRN IV hypotension; Start 05/31/18 at 18:06; Stop 06/01/18 at 00:05; Status DC Sodium Chloride (Normal Saline Flush) 10 ml 1X PRN PRN IV AP catheter pack; Start 05/31/18 at 18:15; Stop 06/01/18 at 18:14 Sodium Chloride (Normal Saline Flush) 10 ml 1X PRN PRN IV [employer] catheter pack; Start 05/31/18 at 18:15; Stop 06/01/18 at 18:14 Sodium Chloride 1,000 ml @ 400 mls/hr Q2H30M PRN IV PATENCY; Start 05/31/18 at 18:06; Stop 06/01/18 at 06:05; Status DC Info (PHARMACY MONITORING -- do not chart) 1 each PRN DAILY PRN MC SEE COMMENTS ; Start 05/31/18 at 18:15; Status UNV Info (PHARMACY MONITORING -- do not chart) 1 each PRN DAILY PRN MC SEE COMMENTS ; Start 05/31/18 at 18:15 Lactulose (Lactulose) 30 gm BID PO ; Start 06/01/18 at 21:00 Nystatin (Nystop) 1 kiana BID TP ; Start 06/01/18 at 15:00 Tolnaftate (Tinactin) 1 kiana BID TP ; Start 06/01/18 at 15:00 Nystatin (Nystop) 1 kiana 5XDAY TP ; Start 06/01/18 at 18:00; Status UNV Active Scripts Active Reported Omeprazole 40 Mg Capsule. 1 Cap PO DAILY Xifaxan (Rifaximin) 550 Mg Tablet 1 Tab PO BID Nystatin 100,000 Unit/1 Ml Oral.susp 5 Ml PO QID Fusion Plus Capsule (Iron,Fum&Ps/Fa/Vit B&C#18/L.ca) 1 Each Capsule 1 Each PO Albuterol Sulfate Conc Neb Soln (Albuterol Sulfate) 2.5 Mg/0.5 Ml Vial.neb 2.5 Mg NEB Q6HRS PRN Lactulose 20 Gm/30 Ml Solution 20 Gm PO TID Lantus Solostar (Insulin Glargine,Hum.rec.anlog) 100 Unit/1 Ml Insuln.pen 0 SQ HS SSI Calcium + Vitamin D Tablet (Calcium Carbonate/Vitamin D3) 1 Each Tablet 1 Each PO Albuterol Sulfate Hfa Inhaler (Albuterol Sulfate) 8.5 Gm Hfa.aer.ad 8.5 Gm IH Novolog Flexpen (Insulin Aspart) 100 Unit/1 Ml Insuln.pen 0 SQ TIDAC ssi Synthroid (Levothyroxine Sodium) 25 Mcg Tablet 300 Mcg PO DAILY Flovent 110MCG Hfa (Fluticasone Propionate) 12 Gm Aer.w.adap 12 Gm IH Vitals/I & O Vital Sign - Last 24 Hours 05/31/18 05/31/18 05/31/18 05/31/18 15:23 18:45 19:00 19:30 Temp 97.6 97.8 97.6 97.0 97.6 97.8 97.6 97.0 Pulse 100 99 101 111 Resp 18 18 18 18 B/P (MAP) 86/37 (53) 112/48 98/38 143/56 Pulse Ox 97 O2 Delivery Room Air 05/31/18 05/31/18 06/01/18 06/01/18 22:00 22:07 02:22 07:00 Temp 96.8 97.0 98.8 96.8 97.0 98.8 Pulse 107 109 96 Resp 18 16 16 B/P (MAP) 116/43 (67) 119/50 (73) 125/47 (73) Pulse Ox 100 100 100 O2 Delivery Room Air Room Air Room Air Room Air 06/01/18 11:00 Temp 98.3 98.3 Pulse 100 Resp 16 B/P (MAP) 129/53 (78) Pulse Ox 98 O2 Delivery Room Air Intake and Output 05/31/18 05/31/18 06/01/18 15:01 23:01 07:01 Intake Total 480 ml 170 ml 0 ml Balance 480 ml 170 ml 0 ml ROMI MAXWELL MD Jun 01, 2018 14:48
[2018-06-01] MEDS: NYSTATIN TOPICAL POWDER 15GM BOTTLE. TP SCH ×2 (15:00→21:08)
[2018-06-01] MEDS: TOLNAFTATE 1% TOPICAL CREAM 15GM TUBE. TP SCH ×2 (15:00→21:08)
[2018-06-01 15:29] VITALS: BP 109/50
[2018-06-01] MEDS ORDERED: NYSTATIN TOPICAL POWDER 15GM BOTTLE. TP SCH (18:00)
[2018-06-01] MEDS ORDERED: ONDANSETRON PF 4 MG/2 ML VIAL. IV PRN (18:30)
[2018-06-01] MEDS: ONDANSETRON ODT 4 MG TAB.RAPDIS. PO PRN (18:45)
[2018-06-01 19:00] VITALS: BP 116/54
[2018-06-01 21:53] LABS: BASO % 0 % (0-3); EOS % 1 % (0-3); HEMATOCRIT 25.2 % (36.0-47.0); HEMOGLOBIN 8.5 g/dL (12.0-15.5); LYMPH # 0.5 x10^3/uL (1.0-4.8); LYMPH % 8 % (24-48); MEAN CORPUSCULAR HEMOGLOBIN 29 pg (25-35); MEAN CORPUSCULAR HGB CONC 34 g/dL (31-37); MEAN CORPUSCULAR VOLUME 87 fL (79-100); MONO # 0.8 x10^3/uL (0.0-1.1); MONO % 14 % (0-9); NEUT # 4.5 x10^3uL (1.8-7.7); NEUT % 77 % (31-73); PLATELET COUNT 39 x10^3/uL (140-400); RED CELL DISTRIBUTION WIDTH 15.7 % (11.5-14.5); WHITE BLOOD COUNT 5.9 x10^3/uL (4.0-11.0)
[2018-06-01 21:58] LABS: CALCIUM 8.6 mg/dL (8.5-10.1); CREATININE 6.1 mg/dL (0.6-1.0)
[2018-06-01 22:00] LABS: POTASSIUM 2.6 mmol/L (3.5-5.1)
[2018-06-01] MEDS ORDERED: POTASSIUM CHLORIDE 20 MEQ TABLET.ER. PO ONE (22:30)
[2018-06-01] MEDS: POTASSIUM CHLORIDE 10MEQ 100 ML IV SCH (22:36)
[2018-06-01 23:00] VITALS: BP 97/38
[2018-06-02] MEDS: POTASSIUM CHLORIDE 10MEQ 100 ML IV SCH ×3 (01:21→03:35)
[2018-06-02] MEDS: ONDANSETRON ODT 4 MG TAB.RAPDIS. PO PRN (01:28)
[2018-06-02 03:00] VITALS: BP 108/57
[2018-06-02 04:59] LABS: BASO % 1 % (0-3); EOS # 0.1 x10^3/uL (0.0-0.7); EOS % 2 % (0-3); HEMATOCRIT 25.5 % (36.0-47.0); HEMOGLOBIN 8.6 g/dL (12.0-15.5); LYMPH # 0.7 x10^3/uL (1.0-4.8); LYMPH % 11 % (24-48); MEAN CORPUSCULAR HEMOGLOBIN 29 pg (25-35); MEAN CORPUSCULAR HGB CONC 34 g/dL (31-37); MEAN CORPUSCULAR VOLUME 87 fL (79-100); MONO # 1.3 x10^3/uL (0.0-1.1); MONO % 18 % (0-9); NEUT # 4.8 x10^3uL (1.8-7.7); NEUT % 69 % (31-73); PLATELET COUNT 41 x10^3/uL (140-400); RED BLOOD COUNT 2.94 x10^6/uL (3.50-5.40); RED CELL DISTRIBUTION WIDTH 15.5 % (11.5-14.5); WHITE BLOOD COUNT 6.9 x10^3/uL (4.0-11.0)
[2018-06-02 05:08] LABS: CALCIUM 8.4 mg/dL (8.5-10.1); CREATININE 6.3 mg/dL (0.6-1.0); GFR 6.7; POTASSIUM 3.3 mmol/L (3.5-5.1)
[2018-06-02 05:30] LABS: PROTHROMBIN TIME PATIENT 15.6 SEC (11.7-14.0)
[2018-06-02] MEDS: CLOTRIMAZOLE 10 MG TROCHE. MM SCH ×4 (05:57→20:55)
[2018-06-02 07:10] LABS: % BANDS 6 % (0-9); % BASOS 1 % (0-3); % EOS 2 % (0-5); % LYMPHS 11 % (24-48); % MONOS 12 % (0-10); % SEGS 68 % (35-66); PLT ESTIMATE DECREASED (ADEQUATE)
[2018-06-02 07:11] LABS: ANISOCYTOSIS SLIGHT; OVALOCYTES FEW
[2018-06-02 07:12] LABS: SCHISTOCYTES OCC
[2018-06-02 07:50] VITALS: BP 102/51
[2018-06-02] MEDS: PANTOPRAZOLE 40 MG TABLET.DR. PO SCH (09:18)
[2018-06-02] MEDS: rifAXIMin 550 MG TABLET PO SCH ×2 (09:19→20:56)
[2018-06-02] MEDS: TOLNAFTATE 1% TOPICAL CREAM 15GM TUBE. TP SCH (09:26)
[2018-06-02] MEDS: NYSTATIN TOPICAL POWDER 15GM BOTTLE. TP SCH ×2 (09:27→20:56)
[2018-06-02] MEDS: LACTULOSE 20 GM/30 ML SOLUTION. PO SCH ×2 (09:34→20:56)
[2018-06-02] MEDS: INSULIN LISPRO 300 UNITS/3 ML INSULN.PEN. SQ SCH ×3 (09:43→17:00)
--- NOTE | 2018-06-02 09:50 | PDOC ---
Subjective: Subjective: Not much meaningful history from her - says hi. Objective: Objective: D/w RN - loose stool but no bleeding, didn't want to drink lactulose but now trying it "on ice," no update on transfer possibility, unclear if will dialyze today. Vital Signs: Vital Signs Date Time Temp Pulse Resp B/P (MAP) Pulse Ox O2 Delivery O2 Flow Rate FiO2 06/02/18 07:50 98.0 104 20 102/51 (68) 96 Room Air 98.0 06/01/18 08:00 2.0 Labs: Laboratory Tests Test 06/01/18 12:15 06/01/18 17:08 06/01/18 18:45 06/01/18 21:51 Glucose (Fingerstick) 239 mg/dL 285 mg/dL 371 mg/dL White Blood Count 5.9 x10^3/uL Red Blood Count 2.90 x10^6/uL Hemoglobin 8.5 g/dL Hematocrit 25.2 % Mean Corpuscular Volume 87 fL Mean Corpuscular Hemoglobin 29 pg Mean Corpuscular Hemoglobin Concent 34 g/dL Red Cell Distribution Width 15.7 % Platelet Count 39 x10^3/uL Neutrophils (%) (Auto) 77 % Lymphocytes (%) (Auto) 8 % Monocytes (%) (Auto) 14 % Eosinophils (%) (Auto) 1 % Basophils (%) (Auto) 0 % Neutrophils # (Auto) 4.5 x10^3uL Lymphocytes # (Auto) 0.5 x10^3/uL Monocytes # (Auto) 0.8 x10^3/uL Eosinophils # (Auto) 0.0 x10^3/uL Basophils # (Auto) 0.0 x10^3/uL Sodium Level 139 mmol/L Potassium Level 2.6 mmol/L Chloride Level 98 mmol/L Carbon Dioxide Level 29 mmol/L Anion Gap 12 Blood Urea Nitrogen 69 mg/dL Creatinine 6.1 mg/dL Estimated GFR (Cockcroft-Gault) 7.0 Glucose Level 363 mg/dL Calcium Level 8.6 mg/dL Ammonia 80 mcmol/L Test 06/02/18 04:30 06/02/18 07:57 06/02/18 07:59 White Blood Count 6.9 x10^3/uL Red Blood Count 2.94 x10^6/uL Hemoglobin 8.6 g/dL Hematocrit 25.5 % Mean Corpuscular Volume 87 fL Mean Corpuscular Hemoglobin 29 pg Mean Corpuscular Hemoglobin Concent 34 g/dL Red Cell Distribution Width 15.5 % Platelet Count 41 x10^3/uL Neutrophils (%) (Auto) 69 % Lymphocytes (%) (Auto) 11 % Monocytes (%) (Auto) 18 % Eosinophils (%) (Auto) 2 % Basophils (%) (Auto) 1 % Neutrophils # (Auto) 4.8 x10^3uL Lymphocytes # (Auto) 0.7 x10^3/uL Monocytes # (Auto) 1.3 x10^3/uL Eosinophils # (Auto) 0.1 x10^3/uL Basophils # (Auto) 0.0 x10^3/uL Segmented Neutrophils % 68 % Band Neutrophils % 6 % Lymphocytes % 11 % Monocytes % 12 % Eosinophils % 2 % Basophils % 1 % Platelet Estimate Decreased Anisocytosis Slight Ovalocytes Few Schistocytes Occ Prothrombin Time 15.6 SEC Prothromb Time International Ratio 1.3 Sodium Level 139 mmol/L Potassium Level 3.3 mmol/L Chloride Level 98 mmol/L Carbon Dioxide Level 28 mmol/L Anion Gap 13 Blood Urea Nitrogen 65 mg/dL Creatinine 6.3 mg/dL Estimated GFR (Cockcroft-Gault) 6.7 Glucose Level 336 mg/dL Calcium Level 8.4 mg/dL Glucose (Fingerstick) 361 mg/dL 361 mg/dL PE: GEN: NAD - staff present cleaning her up, starts stooling again during this which apparently she was unaware of LUNGS: room HEART: RRR ABD: distended NEURO/PSYCH: can tell me she's at [place], the correct year, and who's president; however, might struggle to find other words, seems drowsy A/P: ESLD/hepatorenal syndrome - recurrent ascites, last paracentesis 12L on 05/30 Chronic anemia, thrombocytopenia - s/p transfusions, Hgb stable, no obvious bleeding H/o non-compliance -- MELD 23 w/ most available labs. ?transfer - declined in the past. Palliative care has seen - full code, etc. Continue Xifaxan and lactulose, repeat paracentesis as needed. JENNIE ABRAMS Jun 02, 2018 09:50
[2018-06-02 11:30] VITALS: BP 106/52
--- NOTE | 2018-06-02 13:26 | PDOC ---
PROGRESS NOTES Chief Complaint Chief Complaint CC: DIAZ with hepatorenalsyndrome History of Present Illness 62 y/o female w/ h/o ESLD (DIAZ) MELD 25, ?GI bleeding - last EGD 04/2017 w/ Grade 1 varices and gastriti, recurrent ascites requiring paracentesis, portal vein thrombosis, hyperammonemia who reports diarrhea at home with recent abx use (treated for UTI last admission). also with reported bloody stools. patient reportedly ate breakfast and vomited this AM. at last hospitalization request made to transfer to for transplant considerations but patient left AMA. reports taking meds as prescribed. frequent admissions for paracentesis and blood transfusions. Denies shortness of breath, fever, chills, sweats. No hematemesis coffee-ground emesis. No other complaints. hospitalist called for admission and further eval. pertinent labs in ED: Hb 7.2 (7.7 last admission). creatine 8.0 (4.5 last admission). plt 72k. INR 1.3 05/31: patient asking for PICC. lethargic this AM after getting pain meds overnight. s/p para 05/30 with 12L off 06/01. cursing at nurses, rash in perineal region, upper back looks like fungal etiology 12 L of serous ascites was removed 05/30 History of Present Illness History of Present Illness Pt seen and examine Very ill DW RN Pt spencer 12 liter pericentesis a few days ago. Clinically appears to be end stage. Vitals Vitals Vital Signs Date Time Temp Pulse Resp B/P (MAP) Pulse Ox O2 Delivery O2 Flow Rate FiO2 06/02/18 11:30 98.0 86 16 106/52 (70) 98 Room Air 98.0 06/01/18 08:00 2.0 Physical Exam General: mild distress Heart: Regular rate, Normal S1, Normal S2 Lungs: Clear, Other Abdomen: Other (distended , firm) Extremities: No cyanosis Labs LABS Laboratory Tests Test 06/01/18 17:08 06/01/18 18:45 06/01/18 21:51 06/02/18 04:30 Glucose (Fingerstick) 285 mg/dL (70-99) 371 mg/dL (70-99) White Blood Count 5.9 x10^3/uL (4.0-11.0) 6.9 x10^3/uL (4.0-11.0) Red Blood Count 2.90 x10^6/uL (3.50-5.40) 2.94 x10^6/uL (3.50-5.40) Hemoglobin 8.5 g/dL (12.0-15.5) 8.6 g/dL (12.0-15.5) Hematocrit 25.2 % (36.0-47.0) 25.5 % (36.0-47.0) Mean Corpuscular Volume 87 fL (79-100) 87 fL (79-100) Mean Corpuscular Hemoglobin 29 pg (25-35) 29 pg (25-35) Mean Corpuscular Hemoglobin Concent 34 g/dL (31-37) 34 g/dL (31-37) Red Cell Distribution Width 15.7 % (11.5-14.5) 15.5 % (11.5-14.5) Platelet Count 39 x10^3/uL (140-400) 41 x10^3/uL (140-400) Neutrophils (%) (Auto) 77 % (31-73) 69 % (31-73) Lymphocytes (%) (Auto) 8 % (24-48) 11 % (24-48) Monocytes (%) (Auto) 14 % (0-9) 18 % (0-9) Eosinophils (%) (Auto) 1 % (0-3) 2 % (0-3) Basophils (%) (Auto) 0 % (0-3) 1 % (0-3) Neutrophils # (Auto) 4.5 x10^3uL (1.8-7.7) 4.8 x10^3uL (1.8-7.7) Lymphocytes # (Auto) 0.5 x10^3/uL (1.0-4.8) 0.7 x10^3/uL (1.0-4.8) Monocytes # (Auto) 0.8 x10^3/uL (0.0-1.1) 1.3 x10^3/uL (0.0-1.1) Eosinophils # (Auto) 0.0 x10^3/uL (0.0-0.7) 0.1 x10^3/uL (0.0-0.7) Basophils # (Auto) 0.0 x10^3/uL (0.0-0.2) 0.0 x10^3/uL (0.0-0.2) Sodium Level 139 mmol/L (136-145) 139 mmol/L (136-145) Potassium Level 2.6 mmol/L (3.5-5.1) 3.3 mmol/L (3.5-5.1) Chloride Level 98 mmol/L (98-107) 98 mmol/L (98-107) Carbon Dioxide Level 29 mmol/L (21-32) 28 mmol/L (21-32) Anion Gap 12 (6-14) 13 (6-14) Blood Urea Nitrogen 69 mg/dL (7-20) 65 mg/dL (7-20) Creatinine 6.1 mg/dL (0.6-1.0) 6.3 mg/dL (0.6-1.0) Estimated GFR (Cockcroft-Gault) 7.0 6.7 Glucose Level 363 mg/dL (70-99) 336 mg/dL (70-99) Calcium Level 8.6 mg/dL (8.5-10.1) 8.4 mg/dL (8.5-10.1) Ammonia 80 mcmol/L (11-34) Segmented Neutrophils % 68 % (35-66) Band Neutrophils % 6 % (0-9) Lymphocytes % 11 % (24-48) Monocytes % 12 % (0-10) Eosinophils % 2 % (0-5) Basophils % 1 % (0-3) Platelet Estimate Decreased (ADEQUATE) Anisocytosis Slight Ovalocytes Few Schistocytes Occ Prothrombin Time 15.6 SEC (11.7-14.0) Prothromb Time International Ratio 1.3 (0.8-1.1) Test 06/02/18 07:57 06/02/18 07:59 06/02/18 11:24 Glucose (Fingerstick) 361 mg/dL (70-99) 361 mg/dL (70-99) 340 mg/dL (70-99) Review of Systems Review of Systems co confusion co weakness Assessment and Plan Assessmemt and Plan Problems Medical Problems: (1) Anemia Status: Acute (2) Lower GI bleed Status: Acute (3) Thrombocytopenia Status: Acute ASSESSMENT 1. Toxic metabolic encephalopathy secondary to end-stage liver disease.MELD 25, exacerbated by elevated ammonia 2. Liver Cirrhosis secondary to DIAZ, status post previous paracentesis. now with profound ascites. unable to tolerate diuretics given creatine. s/p paracentesis 05/30 with 12 liters drawn off 3. Hypertension, BP low following para. hold BP meds for now 4. Hyperlipidemia. 5. Oipfa-fs-mtxhven renal disease. admission creatine 8.0. now 8.6. prior creatine 4.5. secondary to hepatorenal syndrome 6 hx noncompliance 7. ESOPHAGEAL VARICES, last EGD 04/2017 w/ Grade 1 varices and gastritis 8. Bloody Stools and Diarrhea, recent abx use 9. ANEMIA, BASELINE HGB APPROX 8.5, s/p previous transfusions. Hb 5.6 on 05/31. will give 2 units of blood 10. Thrombocytopenia secondary to Liver Failure 11. Right Port in place 12. noncompliance PLAN: Prognosis seems terminal palliative care consult GI following IR consult for paracentesis, done 05/31 nephro consult given rise in creatine. no plans for HD unless on transplant list 2 units of blood today, 05/31 follow BMP, CBC daily palliative care consulted given poor prognosis Comment Review of Relevant I have reviewed the following items chante (where applicable) has been applied. Labs Laboratory Tests Test 05/31/18 16:35 05/31/18 22:15 06/01/18 07:27 06/01/18 12:15 Glucose (Fingerstick) 243 mg/dL (70-99) 165 mg/dL (70-99) 255 mg/dL (70-99) 239 mg/dL (70-99) Test 06/01/18 17:08 06/01/18 18:45 06/01/18 21:51 06/02/18 04:30 Glucose (Fingerstick) 285 mg/dL (70-99) 371 mg/dL (70-99) White Blood Count 5.9 x10^3/uL (4.0-11.0) 6.9 x10^3/uL (4.0-11.0) Red Blood Count 2.90 x10^6/uL (3.50-5.40) 2.94 x10^6/uL (3.50-5.40) Hemoglobin 8.5 g/dL (12.0-15.5) 8.6 g/dL (12.0-15.5) Hematocrit 25.2 % (36.0-47.0) 25.5 % (36.0-47.0) Mean Corpuscular Volume 87 fL (79-100) 87 fL (79-100) Mean Corpuscular Hemoglobin 29 pg (25-35) 29 pg (25-35) Mean Corpuscular Hemoglobin Concent 34 g/dL (31-37) 34 g/dL (31-37) Red Cell Distribution Width 15.7 % (11.5-14.5) 15.5 % (11.5-14.5) Platelet Count 39 x10^3/uL (140-400) 41 x10^3/uL (140-400) Neutrophils (%) (Auto) 77 % (31-73) 69 % (31-73) Lymphocytes (%) (Auto) 8 % (24-48) 11 % (24-48) Monocytes (%) (Auto) 14 % (0-9) 18 % (0-9) Eosinophils (%) (Auto) 1 % (0-3) 2 % (0-3) Basophils (%) (Auto) 0 % (0-3) 1 % (0-3) Neutrophils # (Auto) 4.5 x10^3uL (1.8-7.7) 4.8 x10^3uL (1.8-7.7) Lymphocytes # (Auto) 0.5 x10^3/uL (1.0-4.8) 0.7 x10^3/uL (1.0-4.8) Monocytes # (Auto) 0.8 x10^3/uL (0.0-1.1) 1.3 x10^3/uL (0.0-1.1) Eosinophils # (Auto) 0.0 x10^3/uL (0.0-0.7) 0.1 x10^3/uL (0.0-0.7) Basophils # (Auto) 0.0 x10^3/uL (0.0-0.2) 0.0 x10^3/uL (0.0-0.2) Sodium Level 139 mmol/L (136-145) 139 mmol/L (136-145) Potassium Level 2.6 mmol/L (3.5-5.1) 3.3 mmol/L (3.5-5.1) Chloride Level 98 mmol/L (98-107) 98 mmol/L (98-107) Carbon Dioxide Level 29 mmol/L (21-32) 28 mmol/L (21-32) Anion Gap 12 (6-14) 13 (6-14) Blood Urea Nitrogen 69 mg/dL (7-20) 65 mg/dL (7-20) Creatinine 6.1 mg/dL (0.6-1.0) 6.3 mg/dL (0.6-1.0) Estimated GFR (Cockcroft-Gault) 7.0 6.7 Glucose Level 363 mg/dL (70-99) 336 mg/dL (70-99) Calcium Level 8.6 mg/dL (8.5-10.1) 8.4 mg/dL (8.5-10.1) Ammonia 80 mcmol/L (11-34) Segmented Neutrophils % 68 % (35-66) Band Neutrophils % 6 % (0-9) Lymphocytes % 11 % (24-48) Monocytes % 12 % (0-10) Eosinophils % 2 % (0-5) Basophils % 1 % (0-3) Platelet Estimate Decreased (ADEQUATE) Anisocytosis Slight Ovalocytes Few Schistocytes Occ Prothrombin Time 15.6 SEC (11.7-14.0) Prothromb Time International Ratio 1.3 (0.8-1.1) Test 06/02/18 07:57 06/02/18 07:59 06/02/18 11:24 Glucose (Fingerstick) 361 mg/dL (70-99) 361 mg/dL (70-99) 340 mg/dL (70-99) Laboratory Tests Test 06/01/18 17:08 06/01/18 18:45 06/01/18 21:51 06/02/18 04:30 Glucose (Fingerstick) 285 mg/dL (70-99) 371 mg/dL (70-99) White Blood Count 5.9 x10^3/uL (4.0-11.0) 6.9 x10^3/uL (4.0-11.0) Red Blood Count 2.90 x10^6/uL (3.50-5.40) 2.94 x10^6/uL (3.50-5.40) Hemoglobin 8.5 g/dL (12.0-15.5) 8.6 g/dL (12.0-15.5) Hematocrit 25.2 % (36.0-47.0) 25.5 % (36.0-47.0) Mean Corpuscular Volume 87 fL (79-100) 87 fL (79-100) Mean Corpuscular Hemoglobin 29 pg (25-35) 29 pg (25-35) Mean Corpuscular Hemoglobin Concent 34 g/dL (31-37) 34 g/dL (31-37) Red Cell Distribution Width 15.7 % (11.5-14.5) 15.5 % (11.5-14.5) Platelet Count 39 x10^3/uL (140-400) 41 x10^3/uL (140-400) Neutrophils (%) (Auto) 77 % (31-73) 69 % (31-73) Lymphocytes (%) (Auto) 8 % (24-48) 11 % (24-48) Monocytes (%) (Auto) 14 % (0-9) 18 % (0-9) Eosinophils (%) (Auto) 1 % (0-3) 2 % (0-3) Basophils (%) (Auto) 0 % (0-3) 1 % (0-3) Neutrophils # (Auto) 4.5 x10^3uL (1.8-7.7) 4.8 x10^3uL (1.8-7.7) Lymphocytes # (Auto) 0.5 x10^3/uL (1.0-4.8) 0.7 x10^3/uL (1.0-4.8) Monocytes # (Auto) 0.8 x10^3/uL (0.0-1.1) 1.3 x10^3/uL (0.0-1.1) Eosinophils # (Auto) 0.0 x10^3/uL (0.0-0.7) 0.1 x10^3/uL (0.0-0.7) Basophils # (Auto) 0.0 x10^3/uL (0.0-0.2) 0.0 x10^3/uL (0.0-0.2) Sodium Level 139 mmol/L (136-145) 139 mmol/L (136-145) Potassium Level 2.6 mmol/L (3.5-5.1) 3.3 mmol/L (3.5-5.1) Chloride Level 98 mmol/L (98-107) 98 mmol/L (98-107) Carbon Dioxide Level 29 mmol/L (21-32) 28 mmol/L (21-32) Anion Gap 12 (6-14) 13 (6-14) Blood Urea Nitrogen 69 mg/dL (7-20) 65 mg/dL (7-20) Creatinine 6.1 mg/dL (0.6-1.0) 6.3 mg/dL (0.6-1.0) Estimated GFR (Cockcroft-Gault) 7.0 6.7 Glucose Level 363 mg/dL (70-99) 336 mg/dL (70-99) Calcium Level 8.6 mg/dL (8.5-10.1) 8.4 mg/dL (8.5-10.1) Ammonia 80 mcmol/L (11-34) Segmented Neutrophils % 68 % (35-66) Band Neutrophils % 6 % (0-9) Lymphocytes % 11 % (24-48) Monocytes % 12 % (0-10) Eosinophils % 2 % (0-5) Basophils % 1 % (0-3) Platelet Estimate Decreased (ADEQUATE) Anisocytosis Slight Ovalocytes Few Schistocytes Occ Prothrombin Time 15.6 SEC (11.7-14.0) Prothromb Time International Ratio 1.3 (0.8-1.1) Test 06/02/18 07:57 06/02/18 07:59 06/02/18 11:24 Glucose (Fingerstick) 361 mg/dL (70-99) 361 mg/dL (70-99) 340 mg/dL (70-99) Medications Current Medications Ondansetron HCl (Zofran) 4 mg PRN Q8HRS PRN IV NAUSEA/VOMITING Last administered on 05/30/18at 04:49; Start 05/30/18 at 04:30; Stop 05/31/18 at 04:29; Status DC Fentanyl Citrate (Fentanyl 2ml Vial) 25 mcg Q2HR W/A PRN IV PAIN Last administered on 05/30/18at 04:50; Start 05/30/18 at 04:30; Stop 05/30/18 at 04:52; Status DC Fentanyl Citrate (Fentanyl 2ml Vial) 25 mcg PRN Q2HRS PRN IV PAIN Q2HRS W/A Last administered on 05/30/18 23:54; Start 05/30/18 at 05:00 Pantoprazole Sodium (Protonix) 40 mg DAILYAC PO Last administered on 06/02/18 09:18; Start 05/30/18 at 11:30 Rifaximin (Xifaxan) 550 mg Q12HR PO Last administered on 06/02/18 09:19; Start 05/30/18 at 11:00 Lactulose (Lactulose) 20 gm BID PO Last administered on 06/01/18 08:13; Start 05/30/18 at 10:00; Stop 06/01/18 at 14:13; Status DC Sodium Bicarbonate 150 meq/Dextrose 1,150 ml @ 75 mls/hr [id number] IV Last administered on 06/01/18 22:37; Start 05/30/18 at 10:30 Lidocaine/Sodium Bicarbonate (Buffered Lidocaine 1%) 3 ml 1X ONCE INJ Last administered on 05/30/18 13:15; Start 05/30/18 at 13:15; Stop 05/30/18 at 13:16; Status DC Albumin Human 100 ml @ 100 mls/hr 1X ONCE IV Last administered on 05/30/18 13 :26; Start 05/30/18 at 14:00; Stop 05/30/18 at 14:59; Status DC Albumin Human 100 ml @ 100 mls/hr 1X ONCE IV Last administered on 05/30/18 16 :32; Start 05/30/18 at 15:00; Stop 05/30/18 at 15:59; Status DC Albumin Human 100 ml @ 100 mls/hr 1X ONCE IV Last administered on 05/30/18 14 :19; Start 05/30/18 at 13:30; Stop 05/30/18 at 14:29; Status DC Insulin Human Lispro (HumaLOG) 0-7 UNITS TIDWMEALS SQ Last administered on 06/02 12:46; Start 05/30/18 at 17:30 Dextrose (Dextrose 50%-Water Syringe) 12.5 gm PRN Q15MIN PRN IV SEE COMMENTS; Start 05/30/18 at 17:30 Clotrimazole (Mycelex) 10 mg 5XDAY MM Last administered on 06/02/18at 09:18; Start 05/30/18 at 22:00 Potassium Chloride (Klor-Con) 40 meq 1X ONCE PO Last administered on 05/30/18at 20:54; Start 05/30/18 at 19:30; Stop 05/30/18 at 19:31; Status DC Potassium Chloride (Klor-Con) 40 meq 1X ONCE PO ; Start 05/31/18 at 06:30; Stop 05/31/18 at 06:31; Status DC Potassium Chloride (Klor-Con) 40 meq 1X ONCE PO Last administered on 05/31/18at 09:50; Start 05/31/18 at 08:30; Stop 05/31/18 at 08:31; Status DC Potassium Chloride/Sodium Chloride 1,000 ml @ 75 mls/hr 1X ONCE IV ; Start 05/31/18 at 14:00; Stop 05/31/18 at 15:05; Status DC Potassium Chloride (Klor-Con) 40 meq Q2H PO Last administered on 05/31/18at 17:52 ; Start 05/31/18 at 14:00; Stop 05/31/18 at 16:01; Status DC Magnesium Sulfate 50 ml @ 25 mls/hr 1X ONCE IV Last administered on 05/31/18at 15:20; Start 05/31/18 at 14:00; Stop 05/31/18 at 15:59; Status DC Potassium Chloride/Water 100 ml @ 100 mls/hr Q1H IV Last administered on at 17:51; Start 05/31/18 at 15:15; Stop 05/31/18 at 17:14; Status DC Sodium Chloride 1,000 ml @ 1,000 mls/hr Q1H PRN IV hypotension; Start 05/31/18 at 18:06; Stop 06/01/18 at 00:05; Status DC Sodium Chloride (Normal Saline Flush) 10 ml 1X PRN PRN IV AP catheter pack; Start 05/31/18 at 18:15; Stop 06/01/18 at 18:14; Status DC Sodium Chloride (Normal Saline Flush) 10 ml 1X PRN PRN IV [employer] catheter pack; Start 05/31/18 at 18:15; Stop 06/01/18 at 18:14; Status DC Sodium Chloride 1,000 ml @ 400 mls/hr Q2H30M PRN IV PATENCY; Start 05/31/18 at 18:06; Stop 06/01/18 at 06:05; Status DC Info (PHARMACY MONITORING -- do not chart) 1 each PRN DAILY PRN MC SEE COMMENTS ; Start 05/31/18 at 18:15; Status UNV Info (PHARMACY MONITORING -- do not chart) 1 each PRN DAILY PRN MC SEE COMMENTS ; Start 05/31/18 at 18:15 Lactulose (Lactulose) 30 gm BID PO Last administered on 06/02/18at 09:34; Start 06/01/18 at 21:00 Nystatin (Nystop) 1 kiana BID TP Last administered on 06/02/18at 09:27; Start 02/07 at 15:00 Tolnaftate (Tinactin) 1 kiana BID TP Last administered on 06/02/18at 09:26; Start 06/01/18 at 15:00 Nystatin (Nystop) 1 kiana 5XDAY TP ; Start 06/01/18 at 18:00; Status UNV Ondansetron HCl (Zofran Odt) 4 mg PRN Q6HRS PRN PO NAUSEA/VOMITING Last administered on 06/02/18at 01:28; Start 06/01/18 at 18:30 Ondansetron HCl (Zofran) 4 mg PRN Q6HRS PRN IV NAUSEA/VOMITING; Start 06/01/18 at 18:30 Potassium Chloride/Water 100 ml @ 100 mls/hr Q1H IV Last administered on at 03:35; Start 06/01/18 at 22:30; Stop 06/02/18 at 02:29; Status DC Potassium Chloride (Klor-Con) 40 meq 1X ONCE PO Last administered on at 22:35; Start 06/01/18 at 22:30; Stop 06/01/18 at 22:31; Status DC Lorazepam (Ativan) 0.5 mg 1X ONCE IV Last administered on 06/02/18at 06:40; Start 06/02/18 at 06:30; Stop 06/02/18 at 06:32; Status DC Trazodone HCl (Desyrel) 50 mg PRN QHS PRN PO INSOMNIA; Start 06/02/18 at 06:30 Active Scripts Active Reported Omeprazole 40 Mg Capsule. 1 Cap PO DAILY Xifaxan (Rifaximin) 550 Mg Tablet 1 Tab PO BID Nystatin 100,000 Unit/1 Ml Oral.susp 5 Ml PO QID Fusion Plus Capsule (Iron,Fum&Ps/Fa/Vit B&C#18/L.ca) 1 Each Capsule 1 Each PO Albuterol Sulfate Conc Neb Soln (Albuterol Sulfate) 2.5 Mg/0.5 Ml Vial.neb 2.5 Mg NEB Q6HRS PRN Lactulose 20 Gm/30 Ml Solution 20 Gm PO TID Lantus Solostar (Insulin Glargine,Hum.rec.anlog) 100 Unit/1 Ml Insuln.pen 0 SQ HS SSI Calcium + Vitamin D Tablet (Calcium Carbonate/Vitamin D3) 1 Each Tablet 1 Each PO Albuterol Sulfate Hfa Inhaler (Albuterol Sulfate) 8.5 Gm Hfa.aer.ad 8.5 Gm IH Novolog Flexpen (Insulin Aspart) 100 Unit/1 Ml Insuln.pen 0 SQ TIDAC ssi Synthroid (Levothyroxine Sodium) 25 Mcg Tablet 300 Mcg PO DAILY Flovent 110MCG Hfa (Fluticasone Propionate) 12 Gm Aer.w.adap 12 Gm IH Vitals/I & O Vital Sign - Last 24 Hours 06/01/18 06/01/18 06/01/18 06/01/18 15:29 19:00 20:00 23:00 Temp 97.6 98.1 98.1 97.6 98.1 98.1 Pulse 106 104 102 Resp 16 20 22 B/P (MAP) 109/50 (69) 116/54 (74) 97/38 (57) Pulse Ox 100 98 97 O2 Delivery Room Air Room Air Room Air Room Air 06/02/18 06/02/18 06/02/18 03:00 07:50 11:30 Temp 98.0 98.0 98.0 98.0 Pulse 101 104 86 Resp 20 20 16 B/P (MAP) 108/57 (74) 102/51 (68) 106/52 (70) Pulse Ox 99 96 98 O2 Delivery Room Air Room Air Room Air Intake and Output 06/01/18 06/01/18 06/02/18 15:01 23:01 07:01 Intake Total 250 ml 350 ml Balance 250 ml 350 ml SULTANA HERNANDES III DO Jun 02, 2018 13:26
--- NOTE | 2018-06-02 14:54 | NUR ---
SS following up with discharge planning. SS received notification that family wanted to meet with SS. SS and palliative care RN, Caroilna, met with family. Family reported that they spoke with a Rehana Kaye at who has also been following pt for liver needs and reported that she stated that pt should be at and was going to speak with the transfer team. Pt's family requested that SS send another request to for transfer. SS contacted transfer team and made new request for transfer. transfer team reported that they were going to speak with Dr. Kaye and Dr. Osorio and contact Dr. Lord and would then notify SS if they would need additional documentation. SS awaiting return call from transfer team and will proceed accordingly.
[2018-06-02] MEDS: SODIUM BICARBONATE VIAL 150 MEQ in IV DEXTROSE 5% 1,000 ML IV SCH (15:12)
[2018-06-02 15:15] VITALS: BP 98/57
--- NOTE | 2018-06-02 15:18 | PDOC ---
PROGRESS NOTES Assessment Assessment IMPRESSION: Metabolic encephalopathy. Hepatic encephalopathy. Steatohepatitis. Portal vein thrombosis. Renal failure. Anemia. GI bleeding. HTN. HLD. Depression. RECOMMENDATIONS/PLAN: Treat medical diseases. Dialysis. OT/PT. Past Medical History Cardiovascular: HTN, Hyperlipidemia Pulmonary: Asthma, COPD CENTRAL NERVOUS SYSTEM: Other (long history of hepatic encephalopathy, note she was admitted for this month ago) GI: Constipation (and diarrhea), GERD, GI bleed, Gastritis, Hemorrhoids, Other (esophageal varices, gallbladder disease, colonic polyps, hiatal hernia) Heme/Onc: Anemia NOS Hepatobiliary: Cirrhosis (DIAZ) Psych: Anxiety, Depression Renal/: Acute renal failure, UTI, Urinary Incontinence Dermatology: Psoriasis Past Surgical History Cataract Removal, Tonsillectomy (adenoidectomy), Hysterectomy, Other (left myringotomy, paracentesis) Family History No pertinent hx Social History Single, smokes occasional cigarettes, never used alcohol, disabled Allergies Coded Allergies: Sulfa (Sulfonamide Antibiotics) (Verified Allergy, Severe, Swelling, ) tongue swelling, rash cephalexin (Verified Allergy, Severe, Anaphylaxis, 05/22/18) TOLERATES AMOX, ZOSYN doxycycline (Verified Allergy, Intermediate, 04/24/18) insulin detemir (Verified Allergy, Intermediate, Rash, 04/24/18) morphine (Verified Allergy, Intermediate, rash, 04/24/18) niacin (Verified Allergy, Intermediate, Rash, 04/24/18) edema oxycodone (Verified Allergy, Intermediate, rash, 04/24/18) povidone-iodine (Verified Allergy, Intermediate, It, 04/24/18) rifaximin (Verified Allergy, Intermediate, Itching, 04/24/18) tramadol (Verified Allergy, Intermediate, Rash, 04/24/18) I S O L A T I O N *CONTACT* (Verified Allergy, Unknown, 04/24/18) VRE - urine 12/20/17 codeine (Verified Adverse Reaction, Intermediate, Nausea and Vomiting, 04/24) erythromycin base (Verified Adverse Reaction, Intermediate, Diarrhea, ) ROS Negative for fever, chills, weight loss, shortness of breath, chest pain, indigestion, hematochezia, melena, and dysuria. Full 14-point review of systems is negative. PHYSICAL EXAMINATION: General appearance in subacute on chronic distress. HEENT: Normocephalic and nontraumatic. Eyes, nose, ears, and throat are unremarkable. Neck is supple. No lymphadenopathy. No Crepitus. Cardiovascular: S1, S2, regular rate and rhythm. Pulmonary: Mildly decreased to auscultation bilaterally. Abdomen: Bowel sounds are positive. Extremities: No rash, lesions, or edema. No restriction of range of motion NEUROLOGICAL EXAMINATION: Mildly lethargic. Not oriented to time, place and person. PERRL. EOMI. CN: no focal findings. Muscle tone: decreased. Muscle strength: Moves all extremities. DTR: 1-2 Plantar reflex: Neutral response bilaterally Gait: not examined in bed. Sensory exam: Withdraw to stimuli. No other acute cerebellar signs elicited. F-T-N test not performed due to not follow commands. Objective Objective Vital Signs Date Time Temp Pulse Resp B/P (MAP) Pulse Ox O2 Delivery O2 Flow Rate FiO2 06/02/18 11:30 98.0 86 16 106/52 (70) 98 Room Air 98.0 06/01/18 08:00 2.0 Intake and Output 06/02/18 07:01 Intake Total 600 ml Balance 600 ml Intake Oral 600 ml # Bowel Movements 7 Vitals Signs Vitals VS - Last 72 Hours, by Label Date Time Temp Pulse Resp B/P (MAP) Pulse Ox O2 Delivery O2 Flow Rate FiO2 06/02/18 11:30 98.0 86 16 106/52 (70) 98 Room Air 98.0 06/02/18 08:00 Room Air 06/02/18 07:50 98.0 104 20 102/51 (68) 96 Room Air 98.0 06/02/18 03:00 101 20 108/57 (74) 99 Room Air 06/01/18 23:00 98.1 102 22 97/38 (57) 97 Room Air 98.1 06/01/18 20:00 Room Air 06/01/18 19:00 98.1 104 20 116/54 (74) 98 Room Air 98.1 06/01/18 15:29 97.6 106 16 109/50 (69) 100 Room Air 97.6 06/01/18 11:00 98.3 100 16 129/53 (78) 98 Room Air 98.3 06/01/18 08:00 Room Air 2.0 06/01/18 07:00 98.8 96 16 125/47 (73) 100 Room Air 98.8 Laboratory Laboratory Laboratory Tests Test 06/01/18 17:08 06/01/18 18:45 06/01/18 21:51 06/02/18 04:30 Glucose (Fingerstick) 285 mg/dL (70-99) 371 mg/dL (70-99) White Blood Count 5.9 x10^3/uL (4.0-11.0) 6.9 x10^3/uL (4.0-11.0) Red Blood Count 2.90 x10^6/uL (3.50-5.40) 2.94 x10^6/uL (3.50-5.40) Hemoglobin 8.5 g/dL (12.0-15.5) 8.6 g/dL (12.0-15.5) Hematocrit 25.2 % (36.0-47.0) 25.5 % (36.0-47.0) Mean Corpuscular Volume 87 fL (79-100) 87 fL (79-100) Mean Corpuscular Hemoglobin 29 pg (25-35) 29 pg (25-35) Mean Corpuscular Hemoglobin Concent 34 g/dL (31-37) 34 g/dL (31-37) Red Cell Distribution Width 15.7 % (11.5-14.5) 15.5 % (11.5-14.5) Platelet Count 39 x10^3/uL (140-400) 41 x10^3/uL (140-400) Neutrophils (%) (Auto) 77 % (31-73) 69 % (31-73) Lymphocytes (%) (Auto) 8 % (24-48) 11 % (24-48) Monocytes (%) (Auto) 14 % (0-9) 18 % (0-9) Eosinophils (%) (Auto) 1 % (0-3) 2 % (0-3) Basophils (%) (Auto) 0 % (0-3) 1 % (0-3) Neutrophils # (Auto) 4.5 x10^3uL (1.8-7.7) 4.8 x10^3uL (1.8-7.7) Lymphocytes # (Auto) 0.5 x10^3/uL (1.0-4.8) 0.7 x10^3/uL (1.0-4.8) Monocytes # (Auto) 0.8 x10^3/uL (0.0-1.1) 1.3 x10^3/uL (0.0-1.1) Eosinophils # (Auto) 0.0 x10^3/uL (0.0-0.7) 0.1 x10^3/uL (0.0-0.7) Basophils # (Auto) 0.0 x10^3/uL (0.0-0.2) 0.0 x10^3/uL (0.0-0.2) Sodium Level 139 mmol/L (136-145) 139 mmol/L (136-145) Potassium Level 2.6 mmol/L (3.5-5.1) 3.3 mmol/L (3.5-5.1) Chloride Level 98 mmol/L (98-107) 98 mmol/L (98-107) Carbon Dioxide Level 29 mmol/L (21-32) 28 mmol/L (21-32) Anion Gap 12 (6-14) 13 (6-14) Blood Urea Nitrogen 69 mg/dL (7-20) 65 mg/dL (7-20) Creatinine 6.1 mg/dL (0.6-1.0) 6.3 mg/dL (0.6-1.0) Estimated GFR (Cockcroft-Gault) 7.0 6.7 Glucose Level 363 mg/dL (70-99) 336 mg/dL (70-99) Calcium Level 8.6 mg/dL (8.5-10.1) 8.4 mg/dL (8.5-10.1) Ammonia 80 mcmol/L (11-34) Segmented Neutrophils % 68 % (35-66) Band Neutrophils % 6 % (0-9) Lymphocytes % 11 % (24-48) Monocytes % 12 % (0-10) Eosinophils % 2 % (0-5) Basophils % 1 % (0-3) Platelet Estimate Decreased (ADEQUATE) Anisocytosis Slight Ovalocytes Few Schistocytes Occ Prothrombin Time 15.6 SEC (11.7-14.0) Prothromb Time International Ratio 1.3 (0.8-1.1) Test 06/02/18 07:57 06/02/18 07:59 06/02/18 11:24 Glucose (Fingerstick) 361 mg/dL (70-99) 361 mg/dL (70-99) 340 mg/dL (70-99) Medication Medications Current Medications Lactulose (Lactulose) 30 gm BID PO Last administered on 06/02/18 09:34; Start 06/01/18 at 21:00 Lorazepam (Ativan) 0.5 mg 1X ONCE IV Last administered on 06/02/18 06:40; Start 06/02/18 at 06:30; Stop 06/02/18 at 06:32; Status DC Nystatin (Nystop) 1 kiana 5XDAY TP ; Start 06/01/18 at 18:00; Status UNV Nystatin (Nystop) 1 kiana BID TP Last administered on 06/02/18 09:27; Start 02/07 at 15:00 Ondansetron HCl (Zofran Odt) 4 mg PRN Q6HRS PRN PO NAUSEA/VOMITING Last administered on 06/02/18 01:28; Start 06/01/18 at 18:30 Ondansetron HCl (Zofran) 4 mg PRN Q6HRS PRN IV NAUSEA/VOMITING; Start 06/01/18 at 18:30 Potassium Chloride/Water 100 ml @ 100 mls/hr Q1H IV Last administered on 03:35; Start 06/01/18 at 22:30; Stop 06/02/18 at 02:29; Status DC Potassium Chloride (Klor-Con) 40 meq 1X ONCE PO Last administered on at 22:35; Start 06/01/18 at 22:30; Stop 06/01/18 at 22:31; Status DC Tolnaftate (Tinactin) 1 kiana BID TP Last administered on 06/02/18 09:26; Start 06/01/18 at 15:00 Trazodone HCl (Desyrel) 50 mg PRN QHS PRN PO INSOMNIA; Start 06/02/18 at 06:30 Comment Review of Relevant I have reviewed the following items chante (where applicable) has been applied. JUAN M MCKEON MD Jun 02, 2018 15:18
[2018-06-02] MEDS ORDERED: IV NORMAL SALINE 1000ML BAG 1,000 ML IV PRN ×4 (15:21→16:26)
--- NOTE | 2018-06-02 15:26 | PDOC ---
Renal-Progress Notes Subjective Notes Notes NONE History of Present Illness Hx of present illness STABLE Vitals Vitals Vital Signs Date Time Temp Pulse Resp B/P (MAP) Pulse Ox O2 Delivery O2 Flow Rate FiO2 06/02/18 11:30 98.0 86 16 106/52 (70) 98 Room Air 98.0 06/01/18 08:00 2.0 Weight Weight [ ] I.O. Intake and Output Intake and Output 06/02/18 07:01 Intake Total 600 ml Balance 600 ml Intake Oral 600 ml # Bowel Movements 7 Labs Labs Laboratory Tests Test 06/01/18 17:08 06/01/18 18:45 06/01/18 21:51 06/02/18 04:30 Glucose (Fingerstick) 285 mg/dL (70-99) 371 mg/dL (70-99) White Blood Count 5.9 x10^3/uL (4.0-11.0) 6.9 x10^3/uL (4.0-11.0) Red Blood Count 2.90 x10^6/uL (3.50-5.40) 2.94 x10^6/uL (3.50-5.40) Hemoglobin 8.5 g/dL (12.0-15.5) 8.6 g/dL (12.0-15.5) Hematocrit 25.2 % (36.0-47.0) 25.5 % (36.0-47.0) Mean Corpuscular Volume 87 fL (79-100) 87 fL (79-100) Mean Corpuscular Hemoglobin 29 pg (25-35) 29 pg (25-35) Mean Corpuscular Hemoglobin Concent 34 g/dL (31-37) 34 g/dL (31-37) Red Cell Distribution Width 15.7 % (11.5-14.5) 15.5 % (11.5-14.5) Platelet Count 39 x10^3/uL (140-400) 41 x10^3/uL (140-400) Neutrophils (%) (Auto) 77 % (31-73) 69 % (31-73) Lymphocytes (%) (Auto) 8 % (24-48) 11 % (24-48) Monocytes (%) (Auto) 14 % (0-9) 18 % (0-9) Eosinophils (%) (Auto) 1 % (0-3) 2 % (0-3) Basophils (%) (Auto) 0 % (0-3) 1 % (0-3) Neutrophils # (Auto) 4.5 x10^3uL (1.8-7.7) 4.8 x10^3uL (1.8-7.7) Lymphocytes # (Auto) 0.5 x10^3/uL (1.0-4.8) 0.7 x10^3/uL (1.0-4.8) Monocytes # (Auto) 0.8 x10^3/uL (0.0-1.1) 1.3 x10^3/uL (0.0-1.1) Eosinophils # (Auto) 0.0 x10^3/uL (0.0-0.7) 0.1 x10^3/uL (0.0-0.7) Basophils # (Auto) 0.0 x10^3/uL (0.0-0.2) 0.0 x10^3/uL (0.0-0.2) Sodium Level 139 mmol/L (136-145) 139 mmol/L (136-145) Potassium Level 2.6 mmol/L (3.5-5.1) 3.3 mmol/L (3.5-5.1) Chloride Level 98 mmol/L (98-107) 98 mmol/L (98-107) Carbon Dioxide Level 29 mmol/L (21-32) 28 mmol/L (21-32) Anion Gap 12 (6-14) 13 (6-14) Blood Urea Nitrogen 69 mg/dL (7-20) 65 mg/dL (7-20) Creatinine 6.1 mg/dL (0.6-1.0) 6.3 mg/dL (0.6-1.0) Estimated GFR (Cockcroft-Gault) 7.0 6.7 Glucose Level 363 mg/dL (70-99) 336 mg/dL (70-99) Calcium Level 8.6 mg/dL (8.5-10.1) 8.4 mg/dL (8.5-10.1) Ammonia 80 mcmol/L (11-34) Segmented Neutrophils % 68 % (35-66) Band Neutrophils % 6 % (0-9) Lymphocytes % 11 % (24-48) Monocytes % 12 % (0-10) Eosinophils % 2 % (0-5) Basophils % 1 % (0-3) Platelet Estimate Decreased (ADEQUATE) Anisocytosis Slight Ovalocytes Few Schistocytes Occ Prothrombin Time 15.6 SEC (11.7-14.0) Prothromb Time International Ratio 1.3 (0.8-1.1) Test 06/02/18 07:57 06/02/18 07:59 06/02/18 11:24 Glucose (Fingerstick) 361 mg/dL (70-99) 361 mg/dL (70-99) 340 mg/dL (70-99) Review of Systems Constitutional: yes: other (CONFUSED) Physical Exam General Appearance: no apparent distress Skin: warm Heart: S1S2, no thrills Abdomen: soft, bowel sounds present Genitourinary: bladder flat Extremities: pulses present Neurology: alert, confused Musculoskeletal: Osteoarthritis Assessment Assessment IMP [id number] CKD STAGE 3 TO 4 ESLD AENMIA DM II PLAN GI EVAL HD TODAY UF TOLERATED WILL FOLLOW HUNG BREWSTER MD Jun 02, 2018 15:26
[2018-06-02] MEDS ORDERED: DIALYSIS PATIENT. MC PRN ×4 (15:30→16:30)
[2018-06-02 16:34] LABS: BASO # 0.1 x10^3/uL (0.0-0.2); BASO % 1 % (0-3); EOS # 0.2 x10^3/uL (0.0-0.7); EOS % 3 % (0-3); HEMATOCRIT 23.8 % (36.0-47.0); HEMOGLOBIN 7.9 g/dL (12.0-15.5); LYMPH # 0.7 x10^3/uL (1.0-4.8); LYMPH % 11 % (24-48); MEAN CORPUSCULAR HEMOGLOBIN 29 pg (25-35); MEAN CORPUSCULAR HGB CONC 33 g/dL (31-37); MEAN CORPUSCULAR VOLUME 88 fL (79-100); MONO # 1.3 x10^3/uL (0.0-1.1); MONO % 20 % (0-9); NEUT # 4.1 x10^3uL (1.8-7.7); NEUT % 65 % (31-73); PLATELET COUNT 38 x10^3/uL (140-400); RED BLOOD COUNT 2.72 x10^6/uL (3.50-5.40); RED CELL DISTRIBUTION WIDTH 15.5 % (11.5-14.5); WHITE BLOOD COUNT 6.3 x10^3/uL (4.0-11.0)
[2018-06-02 20:00] VITALS: BP 102/44
[2018-06-02] MEDS: traZODone 50 MG TABLET. PO PRN (20:56)
[2018-06-03] MEDS: TOLNAFTATE 1% TOPICAL CREAM 15GM TUBE. TP SCH ×3 (03:16→21:20)
[2018-06-03] MEDS: CLOTRIMAZOLE 10 MG TROCHE. MM SCH ×7 (03:20→21:14)
[2018-06-03] MEDS: SODIUM BICARBONATE VIAL 150 MEQ in IV DEXTROSE 5% 1,000 ML IV SCH ×2 (03:33→22:30)
[2018-06-03 03:50] VITALS: BP 104/45
[2018-06-03 07:00] VITALS: BP 96/39
[2018-06-03] MEDS: NYSTATIN TOPICAL POWDER 15GM BOTTLE. TP SCH ×2 (08:13→21:20)
[2018-06-03] MEDS: rifAXIMin 550 MG TABLET PO SCH ×2 (08:13→21:14)
[2018-06-03] MEDS: LACTULOSE 20 GM/30 ML SOLUTION. PO SCH ×2 (08:13→21:00)
[2018-06-03] MEDS: PANTOPRAZOLE 40 MG TABLET.DR. PO SCH (08:13)
[2018-06-03] MEDS: INSULIN LISPRO 300 UNITS/3 ML INSULN.PEN. SQ SCH ×4 (08:26→16:26)
--- NOTE | 2018-06-03 08:47 | NUR ---
SS following up with discharge planning. SS received notification from transfer team stating that they have spoken with there Hair Boiler Operator, Dr. Kaye, and Dr. Osorio and the Hair Boiler Operator will uphold Dr. Osorio's decision to deny transfer to . They stated that pt can begin dialysis at [place] and follow up with them in the office once discharged. Palliative Care and Dr. Lord notified.
--- NOTE | 2018-06-03 09:58 | PDOC ---
Subjective: Subjective: Asks me to come closer because she's "deaf" on the right side. Asks me not to touch her abdomen. Has questions about what she can eat, wants to know when she's going home and/ or going to . Says stooling, not bleeding. Wants more insulin. Objective: Vital Signs: Vital Signs Date Time Temp Pulse Resp B/P (MAP) Pulse Ox O2 Delivery O2 Flow Rate FiO2 06/03/18 07:00 98.7 101 18 96/39 (58) 97 Room Air 98.7 06/02/18 20:00 2.0 Labs: Laboratory Tests Test 06/02/18 11:24 06/02/18 16:05 06/02/18 17:57 06/02/18 21:00 Glucose (Fingerstick) 340 mg/dL 150 mg/dL 262 mg/dL White Blood Count 6.3 x10^3/uL Red Blood Count 2.72 x10^6/uL Hemoglobin 7.9 g/dL Hematocrit 23.8 % Mean Corpuscular Volume 88 fL Mean Corpuscular Hemoglobin 29 pg Mean Corpuscular Hemoglobin Concent 33 g/dL Red Cell Distribution Width 15.5 % Platelet Count 38 x10^3/uL Neutrophils (%) (Auto) 65 % Lymphocytes (%) (Auto) 11 % Monocytes (%) (Auto) 20 % Eosinophils (%) (Auto) 3 % Basophils (%) (Auto) 1 % Neutrophils # (Auto) 4.1 x10^3uL Lymphocytes # (Auto) 0.7 x10^3/uL Monocytes # (Auto) 1.3 x10^3/uL Eosinophils # (Auto) 0.2 x10^3/uL Basophils # (Auto) 0.1 x10^3/uL Test 06/03/18 07:29 Glucose (Fingerstick) 335 mg/dL PE: GEN: NAD, up to chair eating breakfast LUNGS: room air ABD: distended NEURO/PSYCH: probably confused A/P: Hepatorenal syndrome Chronic anemia, thrombocytopenia Hyperglycemia/DM -- Transfer to declined - left AMA in the past, was verbally/physically abusive to personal service representative - additionally not a transplant candidate because still smokes. Continue Xifaxan and lactulose (adjust this for goal of 2-3 stools daily), repeat paracentesis as needed. Recheck CMP. REGINA-BRANINE,JENNIE PA Jun 03, 2018 09:58
[2018-06-03 11:00] VITALS: BP 92/44
[2018-06-03 11:14] LABS: ALBUMIN 2.5 g/dL (3.4-5.0); ALBUMIN/GLOBULIN RATIO 0.8 (1.0-1.7); CALCIUM 8.3 mg/dL (8.5-10.1); CREATININE 4.3 mg/dL (0.6-1.0); GFR 10.5; POTASSIUM 3.2 mmol/L (3.5-5.1); TOTAL BILIRUBIN 0.9 mg/dL (0.2-1.0); TOTAL PROTEIN 5.7 g/dL (6.4-8.2)
[2018-06-03] MEDS ORDERED: INSULIN LISPRO 300 UNITS/3 ML INSULN.PEN. SQ ONE (12:30)
--- NOTE | 2018-06-03 13:44 | PDOC ---
PROGRESS NOTES Chief Complaint Chief Complaint CC: DIAZ with hepatorenal syndrome Diarrhea, blood stool Toxic metabolic encephalopathy secondary to end-stage liver disease Hypertension Hyperlipidemia. [id number] renal disease secondary to hepatorenal syndrome Hx noncompliance Esophageal varices Anemia Thrombocytopenia secondary to Liver Failure History of Present Illness History of Present Illness Pt is a 62 y/o female who presented with worsening symptoms related to her past diagnosis of DIAZ with hepatorenal syndrome. Today she awake, alert and in NAD. She was seen and examined in her room. She was sitting in her chair enjoying her breakfast. She states she is ready to leave today. She has no new complaints. I spoke with her RN. She was denied by [facility] again. We discussed possible D/C today after her HD. Vitals Vitals Vital Signs Date Time Temp Pulse Resp B/P (MAP) Pulse Ox O2 Delivery O2 Flow Rate FiO2 06/03/18 11:00 98.0 98 18 92/44 (60) 100 Room Air 98.0 06/02/18 20:00 2.0 Physical Exam General: Alert, No acute distress Heart: Regular rate, Normal S1, Normal S2 Lungs: Clear, Other (No wheezing or crackles) Abdomen: Other (Distended, firm, fluid wave ) Extremities: No clubbing, No cyanosis Skin: No rashes, No significant lesion Labs LABS Laboratory Tests Test 06/02/18 16:05 06/02/18 17:57 06/02/18 21:00 06/03/18 07:29 White Blood Count 6.3 x10^3/uL (4.0-11.0) Red Blood Count 2.72 x10^6/uL (3.50-5.40) Hemoglobin 7.9 g/dL (12.0-15.5) Hematocrit 23.8 % (36.0-47.0) Mean Corpuscular Volume 88 fL (79-100) Mean Corpuscular Hemoglobin 29 pg (25-35) Mean Corpuscular Hemoglobin Concent 33 g/dL (31-37) Red Cell Distribution Width 15.5 % (11.5-14.5) Platelet Count 38 x10^3/uL (140-400) Neutrophils (%) (Auto) 65 % (31-73) Lymphocytes (%) (Auto) 11 % (24-48) Monocytes (%) (Auto) 20 % (0-9) Eosinophils (%) (Auto) 3 % (0-3) Basophils (%) (Auto) 1 % (0-3) Neutrophils # (Auto) 4.1 x10^3uL (1.8-7.7) Lymphocytes # (Auto) 0.7 x10^3/uL (1.0-4.8) Monocytes # (Auto) 1.3 x10^3/uL (0.0-1.1) Eosinophils # (Auto) 0.2 x10^3/uL (0.0-0.7) Basophils # (Auto) 0.1 x10^3/uL (0.0-0.2) Glucose (Fingerstick) 150 mg/dL (70-99) 262 mg/dL (70-99) 335 mg/dL (70-99) Test 06/03/18 10:48 06/03/18 12:15 Sodium Level 140 mmol/L (136-145) Potassium Level 3.2 mmol/L (3.5-5.1) Chloride Level 101 mmol/L (98-107) Carbon Dioxide Level 30 mmol/L (21-32) Anion Gap 9 (6-14) Blood Urea Nitrogen 30 mg/dL (7-20) Creatinine 4.3 mg/dL (0.6-1.0) Estimated GFR (Cockcroft-Gault) 10.5 BUN/Creatinine Ratio 7 (6-20) Glucose Level 406 mg/dL (70-99) Calcium Level 8.3 mg/dL (8.5-10.1) Total Bilirubin 0.9 mg/dL (0.2-1.0) Aspartate Amino Transf (AST/SGOT) 41 U/L (15-37) Alanine Aminotransferase (ALT/SGPT) 26 U/L (14-59) Alkaline Phosphatase 186 U/L (46-116) Total Protein 5.7 g/dL (6.4-8.2) Albumin 2.5 g/dL (3.4-5.0) Albumin/Globulin Ratio 0.8 (1.0-1.7) Glucose (Fingerstick) 378 mg/dL (70-99) Review of Systems Review of Systems Gen: denies fever or chills HEENT: denies sore throat, rhinorrhea Heart: denies CP, palp Lung: denies SOA, cough GI: complains of diarrhea, bloating Assessment and Plan Assessmemt and Plan Assessment: 1. Toxic metabolic encephalopathy secondary to end-stage liver disease 2. Liver Cirrhosis secondary to DIAZ, status post previous paracentesis 05/31. now with profound ascites. 3. Hypertension 4. Hyperlipidemia. 5. [id number] renal disease secondary to hepatorenal syndrome 6 hx noncompliance 7. ESOPHAGEAL VARICES, last EGD 04/2017 w/ Grade 1 varices and gastritis 8. Bloody Stools and Diarrhea, recent abx use 9. ANEMIA, BASELINE HGB APPROX 8.5, s/p previous transfusions 05/31 10. Thrombocytopenia secondary to Liver Failure 11. Right Port in place 12. noncompliance PLAN: Prognosis seems terminal HD - pt is new to HD Probable D/C today after HD Palliative care consult GI following Follow BMP, CBC daily PT/OT Home meds Appreciate subspecialist input s/p paracentesis, done 05/31 2 units of blood, 05/31 Comment Review of Relevant I have reviewed the following items chante (where applicable) has been applied. Labs Laboratory Tests Test 06/01/18 17:08 06/01/18 18:45 06/01/18 21:51 06/02/18 04:30 Glucose (Fingerstick) 285 mg/dL (70-99) 371 mg/dL (70-99) White Blood Count 5.9 x10^3/uL (4.0-11.0) 6.9 x10^3/uL (4.0-11.0) Red Blood Count 2.90 x10^6/uL (3.50-5.40) 2.94 x10^6/uL (3.50-5.40) Hemoglobin 8.5 g/dL (12.0-15.5) 8.6 g/dL (12.0-15.5) Hematocrit 25.2 % (36.0-47.0) 25.5 % (36.0-47.0) Mean Corpuscular Volume 87 fL (79-100) 87 fL (79-100) Mean Corpuscular Hemoglobin 29 pg (25-35) 29 pg (25-35) Mean Corpuscular Hemoglobin Concent 34 g/dL (31-37) 34 g/dL (31-37) Red Cell Distribution Width 15.7 % (11.5-14.5) 15.5 % (11.5-14.5) Platelet Count 39 x10^3/uL (140-400) 41 x10^3/uL (140-400) Neutrophils (%) (Auto) 77 % (31-73) 69 % (31-73) Lymphocytes (%) (Auto) 8 % (24-48) 11 % (24-48) Monocytes (%) (Auto) 14 % (0-9) 18 % (0-9) Eosinophils (%) (Auto) 1 % (0-3) 2 % (0-3) Basophils (%) (Auto) 0 % (0-3) 1 % (0-3) Neutrophils # (Auto) 4.5 x10^3uL (1.8-7.7) 4.8 x10^3uL (1.8-7.7) Lymphocytes # (Auto) 0.5 x10^3/uL (1.0-4.8) 0.7 x10^3/uL (1.0-4.8) Monocytes # (Auto) 0.8 x10^3/uL (0.0-1.1) 1.3 x10^3/uL (0.0-1.1) Eosinophils # (Auto) 0.0 x10^3/uL (0.0-0.7) 0.1 x10^3/uL (0.0-0.7) Basophils # (Auto) 0.0 x10^3/uL (0.0-0.2) 0.0 x10^3/uL (0.0-0.2) Sodium Level 139 mmol/L (136-145) 139 mmol/L (136-145) Potassium Level 2.6 mmol/L (3.5-5.1) 3.3 mmol/L (3.5-5.1) Chloride Level 98 mmol/L (98-107) 98 mmol/L (98-107) Carbon Dioxide Level 29 mmol/L (21-32) 28 mmol/L (21-32) Anion Gap 12 (6-14) 13 (6-14) Blood Urea Nitrogen 69 mg/dL (7-20) 65 mg/dL (7-20) Creatinine 6.1 mg/dL (0.6-1.0) 6.3 mg/dL (0.6-1.0) Estimated GFR (Cockcroft-Gault) 7.0 6.7 Glucose Level 363 mg/dL (70-99) 336 mg/dL (70-99) Calcium Level 8.6 mg/dL (8.5-10.1) 8.4 mg/dL (8.5-10.1) Ammonia 80 mcmol/L (11-34) Segmented Neutrophils % 68 % (35-66) Band Neutrophils % 6 % (0-9) Lymphocytes % 11 % (24-48) Monocytes % 12 % (0-10) Eosinophils % 2 % (0-5) Basophils % 1 % (0-3) Platelet Estimate Decreased (ADEQUATE) Anisocytosis Slight Ovalocytes Few Schistocytes Occ Prothrombin Time 15.6 SEC (11.7-14.0) Prothromb Time International Ratio 1.3 (0.8-1.1) Test 06/02/18 07:57 06/02/18 07:59 06/02/18 11:24 06/02/18 16:05 Glucose (Fingerstick) 361 mg/dL (70-99) 361 mg/dL (70-99) 340 mg/dL (70-99) White Blood Count 6.3 x10^3/uL (4.0-11.0) Red Blood Count 2.72 x10^6/uL (3.50-5.40) Hemoglobin 7.9 g/dL (12.0-15.5) Hematocrit 23.8 % (36.0-47.0) Mean Corpuscular Volume 88 fL (79-100) Mean Corpuscular Hemoglobin 29 pg (25-35) Mean Corpuscular Hemoglobin Concent 33 g/dL (31-37) Red Cell Distribution Width 15.5 % (11.5-14.5) Platelet Count 38 x10^3/uL (140-400) Neutrophils (%) (Auto) 65 % (31-73) Lymphocytes (%) (Auto) 11 % (24-48) Monocytes (%) (Auto) 20 % (0-9) Eosinophils (%) (Auto) 3 % (0-3) Basophils (%) (Auto) 1 % (0-3) Neutrophils # (Auto) 4.1 x10^3uL (1.8-7.7) Lymphocytes # (Auto) 0.7 x10^3/uL (1.0-4.8) Monocytes # (Auto) 1.3 x10^3/uL (0.0-1.1) Eosinophils # (Auto) 0.2 x10^3/uL (0.0-0.7) Basophils # (Auto) 0.1 x10^3/uL (0.0-0.2) Test 06/02/18 17:57 06/02/18 21:00 06/03/18 07:29 06/03/18 10:48 Glucose (Fingerstick) 150 mg/dL (70-99) 262 mg/dL (70-99) 335 mg/dL (70-99) Sodium Level 140 mmol/L (136-145) Potassium Level 3.2 mmol/L (3.5-5.1) Chloride Level 101 mmol/L (98-107) Carbon Dioxide Level 30 mmol/L (21-32) Anion Gap 9 (6-14) Blood Urea Nitrogen 30 mg/dL (7-20) Creatinine 4.3 mg/dL (0.6-1.0) Estimated GFR (Cockcroft-Gault) 10.5 BUN/Creatinine Ratio 7 (6-20) Glucose Level 406 mg/dL (70-99) Calcium Level 8.3 mg/dL (8.5-10.1) Total Bilirubin 0.9 mg/dL (0.2-1.0) Aspartate Amino Transf (AST/SGOT) 41 U/L (15-37) Alanine Aminotransferase (ALT/SGPT) 26 U/L (14-59) Alkaline Phosphatase 186 U/L (46-116) Total Protein 5.7 g/dL (6.4-8.2) Albumin 2.5 g/dL (3.4-5.0) Albumin/Globulin Ratio 0.8 (1.0-1.7) Test 06/03/18 12:15 Glucose (Fingerstick) 378 mg/dL (70-99) Laboratory Tests Test 06/02/18 16:05 06/02/18 17:57 06/02/18 21:00 06/03/18 07:29 White Blood Count 6.3 x10^3/uL (4.0-11.0) Red Blood Count 2.72 x10^6/uL (3.50-5.40) Hemoglobin 7.9 g/dL (12.0-15.5) Hematocrit 23.8 % (36.0-47.0) Mean Corpuscular Volume 88 fL (79-100) Mean Corpuscular Hemoglobin 29 pg (25-35) Mean Corpuscular Hemoglobin Concent 33 g/dL (31-37) Red Cell Distribution Width 15.5 % (11.5-14.5) Platelet Count 38 x10^3/uL (140-400) Neutrophils (%) (Auto) 65 % (31-73) Lymphocytes (%) (Auto) 11 % (24-48) Monocytes (%) (Auto) 20 % (0-9) Eosinophils (%) (Auto) 3 % (0-3) Basophils (%) (Auto) 1 % (0-3) Neutrophils # (Auto) 4.1 x10^3uL (1.8-7.7) Lymphocytes # (Auto) 0.7 x10^3/uL (1.0-4.8) Monocytes # (Auto) 1.3 x10^3/uL (0.0-1.1) Eosinophils # (Auto) 0.2 x10^3/uL (0.0-0.7) Basophils # (Auto) 0.1 x10^3/uL (0.0-0.2) Glucose (Fingerstick) 150 mg/dL (70-99) 262 mg/dL (70-99) 335 mg/dL (70-99) Test 06/03/18 10:48 06/03/18 12:15 Sodium Level 140 mmol/L (136-145) Potassium Level 3.2 mmol/L (3.5-5.1) Chloride Level 101 mmol/L (98-107) Carbon Dioxide Level 30 mmol/L (21-32) Anion Gap 9 (6-14) Blood Urea Nitrogen 30 mg/dL (7-20) Creatinine 4.3 mg/dL (0.6-1.0) Estimated GFR (Cockcroft-Gault) 10.5 BUN/Creatinine Ratio 7 (6-20) Glucose Level 406 mg/dL (70-99) Calcium Level 8.3 mg/dL (8.5-10.1) Total Bilirubin 0.9 mg/dL (0.2-1.0) Aspartate Amino Transf (AST/SGOT) 41 U/L (15-37) Alanine Aminotransferase (ALT/SGPT) 26 U/L (14-59) Alkaline Phosphatase 186 U/L (46-116) Total Protein 5.7 g/dL (6.4-8.2) Albumin 2.5 g/dL (3.4-5.0) Albumin/Globulin Ratio 0.8 (1.0-1.7) Glucose (Fingerstick) 378 mg/dL (70-99) Medications Current Medications Ondansetron HCl (Zofran) 4 mg PRN Q8HRS PRN IV NAUSEA/VOMITING Last administered on 05/30/18 04:49; Start 05/30/18 at 04:30; Stop 05/31/18 at 04:29; Status DC Fentanyl Citrate (Fentanyl 2ml Vial) 25 mcg Q2HR W/A PRN IV PAIN Last administered on 05/30/18 04:50; Start 05/30/18 at 04:30; Stop 05/30/18 at 04:52; Status DC Fentanyl Citrate (Fentanyl 2ml Vial) 25 mcg PRN Q2HRS PRN IV PAIN Q2HRS W/A Last administered on 05/30/18 23:54; Start 05/30/18 at 05:00 Pantoprazole Sodium (Protonix) 40 mg DAILYAC PO Last administered on 06/03/18 08:13; Start 05/30/18 at 11:30 Rifaximin (Xifaxan) 550 mg Q12HR PO Last administered on 06/03/18 08:13; Start 05/30/18 at 11:00 Lactulose (Lactulose) 20 gm BID PO Last administered on 06/01/18 08:13; Start 05/30/18 at 10:00; Stop 06/01/18 at 14:13; Status DC Sodium Bicarbonate 150 meq/Dextrose 1,150 ml @ 75 mls/hr [id number] IV Last administered on 06/03/18 03:33; Start 05/30/18 at 10:30 Lidocaine/Sodium Bicarbonate (Buffered Lidocaine 1%) 3 ml 1X ONCE INJ Last administered on 05/30/18 13:15; Start 05/30/18 at 13:15; Stop 05/30/18 at 13:16; Status DC Albumin Human 100 ml @ 100 mls/hr 1X ONCE IV Last administered on 05/30/18at 13 :26; Start 05/30/18 at 14:00; Stop 05/30/18 at 14:59; Status DC Albumin Human 100 ml @ 100 mls/hr 1X ONCE IV Last administered on 05/30/18at 16 :32; Start 05/30/18 at 15:00; Stop 05/30/18 at 15:59; Status DC Albumin Human 100 ml @ 100 mls/hr 1X ONCE IV Last administered on 05/30/18at 14 :19; Start 05/30/18 at 13:30; Stop 05/30/18 at 14:29; Status DC Insulin Human Lispro (HumaLOG) 0-7 UNITS TIDWMEALS SQ Last administered on 06/03at 08:26; Start 05/30/18 at 17:30 Dextrose (Dextrose 50%-Water Syringe) 12.5 gm PRN Q15MIN PRN IV SEE COMMENTS; Start 05/30/18 at 17:30 Clotrimazole (Mycelex) 10 mg 5XDAY MM Last administered on 06/03/18at 10:50; Start 05/30/18 at 22:00 Potassium Chloride (Klor-Con) 40 meq 1X ONCE PO Last administered on 05/30/18at 20:54; Start 05/30/18 at 19:30; Stop 05/30/18 at 19:31; Status DC Potassium Chloride (Klor-Con) 40 meq 1X ONCE PO ; Start 05/31/18 at 06:30; Stop 05/31/18 at 06:31; Status DC Potassium Chloride (Klor-Con) 40 meq 1X ONCE PO Last administered on 05/31/18at 09:50; Start 05/31/18 at 08:30; Stop 05/31/18 at 08:31; Status DC Potassium Chloride/Sodium Chloride 1,000 ml @ 75 mls/hr 1X ONCE IV ; Start 05/31/18 at 14:00; Stop 05/31/18 at 15:05; Status DC Potassium Chloride (Klor-Con) 40 meq Q2H PO Last administered on 05/31/18at 17:52 ; Start 05/31/18 at 14:00; Stop 05/31/18 at 16:01; Status DC Magnesium Sulfate 50 ml @ 25 mls/hr 1X ONCE IV Last administered on 05/31/18at 15:20; Start 05/31/18 at 14:00; Stop 05/31/18 at 15:59; Status DC Potassium Chloride/Water 100 ml @ 100 mls/hr Q1H IV Last administered on at 17:51; Start 05/31/18 at 15:15; Stop 05/31/18 at 17:14; Status DC Sodium Chloride 1,000 ml @ 1,000 mls/hr Q1H PRN IV hypotension; Start 05/31/18 at 18:06; Stop 06/01/18 at 00:05; Status DC Sodium Chloride (Normal Saline Flush) 10 ml 1X PRN PRN IV AP catheter pack; Start 05/31/18 at 18:15; Stop 06/01/18 at 18:14; Status DC Sodium Chloride (Normal Saline Flush) 10 ml 1X PRN PRN IV PROPERTY PRESERVATION SPECIALIST catheter pack; Start 05/31/18 at 18:15; Stop 06/01/18 at 18:14; Status DC Sodium Chloride 1,000 ml @ 400 mls/hr Q2H30M PRN IV PATENCY; Start 05/31/18 at 18:06; Stop 06/01/18 at 06:05; Status DC Info (PHARMACY MONITORING -- do not chart) 1 each PRN DAILY PRN MC SEE COMMENTS ; Start 05/31/18 at 18:15; Status UNV Info (PHARMACY MONITORING -- do not chart) 1 each PRN DAILY PRN MC SEE COMMENTS ; Start 05/31/18 at 18:15; Status Cancel Lactulose (Lactulose) 30 gm BID PO Last administered on 06/03/18at 08:13; Start 06/01/18 at 21:00 Nystatin (Nystop) 1 kiana BID TP Last administered on 06/03/18at 08:13; Start 02/07 at 15:00 Tolnaftate (Tinactin) 1 kiana BID TP Last administered on 06/03/18at 08:13; Start 06/01/18 at 15:00 Nystatin (Nystop) 1 kiana 5XDAY TP ; Start 06/01/18 at 18:00; Status UNV Ondansetron HCl (Zofran Odt) 4 mg PRN Q6HRS PRN PO NAUSEA/VOMITING Last administered on 06/02/18at 01:28; Start 06/01/18 at 18:30 Ondansetron HCl (Zofran) 4 mg PRN Q6HRS PRN IV NAUSEA/VOMITING; Start 06/01/18 at 18:30 Potassium Chloride/Water 100 ml @ 100 mls/hr Q1H IV Last administered on at 03:35; Start 06/01/18 at 22:30; Stop 06/02/18 at 02:29; Status DC Potassium Chloride (Klor-Con) 40 meq 1X ONCE PO Last administered on at 22:35; Start 06/01/18 at 22:30; Stop 06/01/18 at 22:31; Status DC Lorazepam (Ativan) 0.5 mg 1X ONCE IV Last administered on 06/02/18at 06:40; Start 06/02/18 at 06:30; Stop 06/02/18 at 06:32; Status DC Trazodone HCl (Desyrel) 50 mg PRN QHS PRN PO INSOMNIA Last administered on 06/02at 20:56; Start 06/02/18 at 06:30 Sodium Chloride 1,000 ml @ 1,000 mls/hr Q1H PRN IV hypotension; Start 06/02/18 at 15:21; Stop 06/02/18 at 21:20; Status DC Sodium Chloride 1,000 ml @ 400 mls/hr Q2H30M PRN IV PATENCY; Start 06/02/18 at 15:21; Stop 06/03/18 at 03:20; Status DC Info (PHARMACY MONITORING -- do not chart) 1 each PRN DAILY PRN MC SEE COMMENTS ; Start 06/02/18 at 15:30; Status UNV Info (PHARMACY MONITORING -- do not chart) 1 each PRN DAILY PRN MC SEE COMMENTS ; Start 06/02/18 at 15:30; Status UNV Sodium Chloride 1,000 ml @ 1,000 mls/hr Q1H PRN IV hypotension; Start 06/02/18 at 16:26; Stop 06/03/18 at 01:28; Status DC Sodium Chloride 1,000 ml @ 400 mls/hr Q2H30M PRN IV PATENCY; Start 06/02/18 at 16:26; Stop 06/03/18 at 04:25; Status DC Info (PHARMACY MONITORING -- do not chart) 1 each PRN DAILY PRN MC SEE COMMENTS ; Start 06/02/18 at 16:30; Status UNV Info (PHARMACY MONITORING -- do not chart) 1 each PRN DAILY PRN MC SEE COMMENTS ; Start 06/02/18 at 16:30 Insulin Human Lispro (HumaLOG) 10 units TIDAC SQ ; Start 06/03/18 at 16:30 Insulin Human Lispro (HumaLOG) 20 units 1X ONCE SQ Last administered on at 12:48; Start 06/03/18 at 12:30; Stop 06/03/18 at 12:31; Status DC Potassium Chloride (Klor-Con) 40 meq 1X ONCE PO ; Start 06/03/18 at 13:15; Stop 06/03/18 at 13:16; Status DC Active Scripts Active Reported Omeprazole 40 Mg Capsule. 1 Cap PO DAILY Xifaxan (Rifaximin) 550 Mg Tablet 1 Tab PO BID Nystatin 100,000 Unit/1 Ml Oral.susp 5 Ml PO QID Fusion Plus Capsule (Iron,Fum&Ps/Fa/Vit B&C#18/L.ca) 1 Each Capsule 1 Each PO Albuterol Sulfate Conc Neb Soln (Albuterol Sulfate) 2.5 Mg/0.5 Ml Vial.neb 2.5 Mg NEB Q6HRS PRN Lactulose 20 Gm/30 Ml Solution 20 Gm PO TID Lantus Solostar (Insulin Glargine,Hum.rec.anlog) 100 Unit/1 Ml Insuln.pen 0 SQ HS SSI Calcium + Vitamin D Tablet (Calcium Carbonate/Vitamin D3) 1 Each Tablet 1 Each PO Albuterol Sulfate Hfa Inhaler (Albuterol Sulfate) 8.5 Gm Hfa.aer.ad 8.5 Gm IH Novolog Flexpen (Insulin Aspart) 100 Unit/1 Ml Insuln.pen 0 SQ TIDAC ssi Synthroid (Levothyroxine Sodium) 25 Mcg Tablet 300 Mcg PO DAILY Flovent 110MCG Hfa (Fluticasone Propionate) 12 Gm Aer.w.adap 12 Gm IH Vitals/I & O Vital Sign - Last 24 Hours 06/02/18 06/02/18 06/02/18 06/03/18 15:15 20:00 20:00 03:50 Temp 97.8 98.0 99.1 97.8 98.0 99.1 Pulse 104 116 102 Resp 24 22 20 B/P (MAP) 98/57 (71) 102/44 (63) 104/45 (64) Pulse Ox 98 98 96 O2 Delivery Room Air Room Air Room Air Room Air O2 Flow Rate 2.0 06/03/18 06/03/18 06/03/18 07:00 08:30 11:00 Temp 98.7 98.0 98.7 98.0 Pulse 101 98 Resp 18 18 B/P (MAP) 96/39 (58) 92/44 (60) Pulse Ox 97 100 O2 Delivery Room Air Room Air Room Air Intake and Output 06/02/18 06/02/18 06/03/18 15:00 23:00 07:00 Intake Total 600 ml 120 ml Balance 600 ml 120 ml SULTANA HERNANDES III DO Jun 03, 2018 13:44
--- NOTE | 2018-06-03 13:48 | DS ---
DATE OF DISCHARGE: 06/03/2018 ADMISSION DIAGNOSES: Gastrointestinal bleed, nonalcoholic steatohepatitis syndrome, hepatorenal syndrome, metabolic encephalopathy. DISCHARGE DIAGNOSES: Resolving metabolic encephalopathy, resolving gastrointestinal bleed, chronic cirrhosis secondary to nonalcoholic steatohepatitis syndrome, hypertension, hyperlipidemia, noncompliance, hepatorenal syndrome, esophageal varices with her last EGD done on 05/19/2018 with grade 1 varices and gastritis, anemia, thrombocytopenia, right port placement. CONSULTS: Dr. Ramos, Neurology; Dr. Motta, Nephrology, Palliative Care. PROCEDURES: Dialysis. HOSPITAL COURSE: The patient is a pleasant 62-year-old female who is well known to my service. We have admitted her several times in the past few months. Basically, she has DIAZ syndrome among other things and she is just slowly failing to thrive. At this time, she presented with a GI bleed and severe toxic encephalopathy and metabolic encephalopathy and hypertension. She was admitted. The above consults were obtained. She was dialyzed. We did consult Palliative Care, but the patient wants full care and thinks she is a candidate for a transplant, but she is not. We did call [facility], they refused to accept her as a transfer. This morning I saw her and examined the patient, she is really at her baseline. She looks pretty good. We plan to discharge to home with close outpatient followup. DISPOSITION: Home. ACTIVITY: As tolerated. DIET: Hepatic. MEDICATIONS: Please see the MRAD. TOTAL TIME: 38 minutes. SULTANA HERNANDES DO DR: DONAL/rebeka JOB#: [id number] / [id number]
--- NOTE | 2018-06-03 14:09 | NUR ---
SS following for discharge planning. SS received referral for hemodialysis set up. SS phoned and faxed referral to [facility]missions, ext [phone]; fax [phone]. SS awaiting Heb B Total Core, Chest X-Ray, and IR report for permanent cath placement. SS will sent to [facility] once received.
--- NOTE | 2018-06-03 14:21 | PDOC ---
Renal-Progress Notes Subjective Notes Notes NO COMPLAINTS, WANTS TO GO HOME History of Present Illness Hx of present illness BETTER Vitals Vitals Vital Signs Date Time Temp Pulse Resp B/P (MAP) Pulse Ox O2 Delivery O2 Flow Rate FiO2 06/03/18 11:00 98.0 98 18 92/44 (60) 100 Room Air 98.0 06/02/18 20:00 2.0 Weight Weight [ ] I.O. Intake and Output Intake and Output 06/03/18 07:00 Intake Total 720 ml Balance 720 ml Intake Oral 720 ml # Bowel Movements 4 Labs Labs Laboratory Tests Test 06/02/18 16:05 06/02/18 17:57 06/02/18 21:00 06/03/18 07:29 White Blood Count 6.3 x10^3/uL (4.0-11.0) Red Blood Count 2.72 x10^6/uL (3.50-5.40) Hemoglobin 7.9 g/dL (12.0-15.5) Hematocrit 23.8 % (36.0-47.0) Mean Corpuscular Volume 88 fL (79-100) Mean Corpuscular Hemoglobin 29 pg (25-35) Mean Corpuscular Hemoglobin Concent 33 g/dL (31-37) Red Cell Distribution Width 15.5 % (11.5-14.5) Platelet Count 38 x10^3/uL (140-400) Neutrophils (%) (Auto) 65 % (31-73) Lymphocytes (%) (Auto) 11 % (24-48) Monocytes (%) (Auto) 20 % (0-9) Eosinophils (%) (Auto) 3 % (0-3) Basophils (%) (Auto) 1 % (0-3) Neutrophils # (Auto) 4.1 x10^3uL (1.8-7.7) Lymphocytes # (Auto) 0.7 x10^3/uL (1.0-4.8) Monocytes # (Auto) 1.3 x10^3/uL (0.0-1.1) Eosinophils # (Auto) 0.2 x10^3/uL (0.0-0.7) Basophils # (Auto) 0.1 x10^3/uL (0.0-0.2) Glucose (Fingerstick) 150 mg/dL (70-99) 262 mg/dL (70-99) 335 mg/dL (70-99) Test 06/03/18 10:48 06/03/18 12:15 Sodium Level 140 mmol/L (136-145) Potassium Level 3.2 mmol/L (3.5-5.1) Chloride Level 101 mmol/L (98-107) Carbon Dioxide Level 30 mmol/L (21-32) Anion Gap 9 (6-14) Blood Urea Nitrogen 30 mg/dL (7-20) Creatinine 4.3 mg/dL (0.6-1.0) Estimated GFR (Cockcroft-Gault) 10.5 BUN/Creatinine Ratio 7 (6-20) Glucose Level 406 mg/dL (70-99) Calcium Level 8.3 mg/dL (8.5-10.1) Total Bilirubin 0.9 mg/dL (0.2-1.0) Aspartate Amino Transf (AST/SGOT) 41 U/L (15-37) Alanine Aminotransferase (ALT/SGPT) 26 U/L (14-59) Alkaline Phosphatase 186 U/L (46-116) Total Protein 5.7 g/dL (6.4-8.2) Albumin 2.5 g/dL (3.4-5.0) Albumin/Globulin Ratio 0.8 (1.0-1.7) Glucose (Fingerstick) 378 mg/dL (70-99) Review of Systems Constitutional: yes: alert, oriented Ears/Nose/Throat: Yes: no symptom reported Eyes: Yes: no symptom reported Pulmonary: Yes no symptom reported Cardiovascular: Yes no symptom reported Gastrointestional: Yes: constipation Genitourinary: Yes: no symptom reported Musculoskeletal: Yes: no symptom reported Skin: Yes no symptom reported Psychiatric/Neurological: Yes: no symptom reported Endocrine: Yes: no symptom reported Physical Exam General Appearance: no apparent distress Skin: warm Heart: S1S2, no thrills Abdomen: soft, bowel sounds present Genitourinary: bladder flat Extremities: pulses present Neurology: alert, confused Musculoskeletal: Osteoarthritis Assessment Assessment IMP [id number] CKD STAGE 3 TO 4 ESLD AENMIA DM II PLAN ONGOING GI EVAL HD [facility] HAS DENIED TRANSFER WILL HAVE IR CONVERT TEMP TO TUNNELED HD CATHETER WILL ALSO HAVE SW SET UP OP HD AT [facility] MD Jun 03, 2018 14:21
[2018-06-03] MEDS: POTASSIUM CHLORIDE 20 MEQ TABLET.ER. PO ONE ×2 (14:27→14:28)
--- NOTE | 2018-06-03 14:33 | RAD ---
EXAM: Chest, single view. HISTORY: Shortness of air. COMPARISON: 04/22/2018 FINDINGS: A frontal view of the chest is obtained. There is mild diffuse increased interstitial opacity suggesting mild congestion. There is superimposed bilateral lower lobe linear atelectasis. There is no convincing pleural effusion. There is mild enlargement of the cardiac silhouette. There is a right chest wall port catheter with the tip in the superior vena cava. There is a left central venous catheter with the tip in the right atrium. IMPRESSION: Suspected mild pulmonary congestion with superimposed lower lobe atelectasis. Electronically signed by: Chanell Colmenares MD (06/03/2018 2:30 PM) [id number]
[2018-06-03 15:00] VITALS: BP 94/47
--- NOTE | 2018-06-03 16:41 | NUR ---
SS following up with discharge planning. SS faxed chest x-ray to [facility], fax [phone]. SS still awaiting Heb B total core results and permanent cath placement. SS will fax results to [facility] once received. [facility] reported that once received they would notify SS when dialysis chair time is confirmed.
--- NOTE | 2018-06-03 17:11 | PDOC ---
PROGRESS NOTES Assessment Assessment Metabolic encephalopathy. Hepatic encephalopathy. Steatohepatitis. Portal vein thrombosis. Renal failure. Anemia. GI bleeding. HTN. HLD. Depression. RECOMMENDATIONS/PLAN: Treat medical diseases. Dialysis. OT/PT. FU with PCP. Past Medical History Cardiovascular: HTN, Hyperlipidemia Pulmonary: Asthma, COPD CENTRAL NERVOUS SYSTEM: Other (long history of hepatic encephalopathy, note she was admitted for this month ago) GI: Constipation (and diarrhea), GERD, GI bleed, Gastritis, Hemorrhoids, Other (esophageal varices, gallbladder disease, colonic polyps, hiatal hernia) Heme/Onc: Anemia NOS Hepatobiliary: Cirrhosis (DIAZ) Psych: Anxiety, Depression Renal/: Acute renal failure, UTI, Urinary Incontinence Dermatology: Psoriasis Past Surgical History Cataract Removal, Tonsillectomy (adenoidectomy), Hysterectomy, Other (left myringotomy, paracentesis) Family History No pertinent hx Social History Single, smokes occasional cigarettes, never used alcohol, disabled Allergies Coded Allergies: Sulfa (Sulfonamide Antibiotics) (Verified Allergy, Severe, Swelling, ) tongue swelling, rash cephalexin (Verified Allergy, Severe, Anaphylaxis, 05/22/18) TOLERATES AMOX, ZOSYN doxycycline (Verified Allergy, Intermediate, 04/24/18) insulin detemir (Verified Allergy, Intermediate, Rash, 04/24/18) morphine (Verified Allergy, Intermediate, rash, 04/24/18) niacin (Verified Allergy, Intermediate, Rash, 04/24/18) edema oxycodone (Verified Allergy, Intermediate, rash, 04/24/18) povidone-iodine (Verified Allergy, Intermediate, It, 04/24/18) rifaximin (Verified Allergy, Intermediate, Itching, 04/24/18) tramadol (Verified Allergy, Intermediate, Rash, 04/24/18) I S O L A T I O N *CONTACT* (Verified Allergy, Unknown, 04/24/18) VRE - urine 12/20/17 codeine (Verified Adverse Reaction, Intermediate, Nausea and Vomiting, 04/24) erythromycin base (Verified Adverse Reaction, Intermediate, Diarrhea, ) ROS Negative for fever, chills, weight loss, shortness of breath, chest pain, indigestion, hematochezia, melena, and dysuria. Full 14-point review of systems is negative. PHYSICAL EXAMINATION: General appearance in subacute on chronic distress. HEENT: Normocephalic and nontraumatic. Eyes, nose, ears, and throat are unremarkable. Neck is supple. No lymphadenopathy. No Crepitus. Cardiovascular: S1, S2, regular rate and rhythm. Pulmonary: Mildly decreased to auscultation bilaterally. Abdomen: Bowel sounds are positive. Extremities: No rash, lesions, or edema. No restriction of range of motion NEUROLOGICAL EXAMINATION: Awake. Oriented partially to time, and knew place and person. PERRL. EOMI. CN: no focal findings. Muscle tone: WNL. Muscle strength: 4+ DTR: 1-2 Plantar reflex: Neutral response bilaterally Gait: able to walk with a walker. Sensory exam: No abnormal findings. No acute cerebellar signs elicited. F-T-N test fine. Objective Objective Vital Signs Date Time Temp Pulse Resp B/P (MAP) Pulse Ox O2 Delivery O2 Flow Rate FiO2 06/03/18 15:00 98.0 100 18 94/47 (63) 97 Room Air 98.0 06/02/18 20:00 2.0 Intake and Output 06/03/18 06:59 Intake Total 720 ml Balance 720 ml Intake Oral 720 ml # Bowel Movements 4 Vitals Signs Vitals VS - Last 72 Hours, by Label Date Time Temp Pulse Resp B/P (MAP) Pulse Ox O2 Delivery O2 Flow Rate FiO2 06/03/18 15:00 98.0 100 18 94/47 (63) 97 Room Air 98.0 06/03/18 11:00 98.0 98 18 92/44 (60) 100 Room Air 98.0 06/03/18 08:30 Room Air 06/03/18 07:00 98.7 101 18 96/39 (58) 97 Room Air 98.7 06/03/18 03:50 99.1 102 20 104/45 (64) 96 Room Air 99.1 06/02/18 20:00 Room Air 2.0 06/02/18 20:00 98.0 116 22 102/44 (63) 98 Room Air 98.0 06/02/18 15:15 97.8 104 24 98/57 (71) 98 Room Air 97.8 06/02/18 11:30 98.0 86 16 106/52 (70) 98 Room Air 98.0 06/02/18 08:00 Room Air 06/02/18 07:50 98.0 104 20 102/51 (68) 96 Room Air 98.0 Laboratory Laboratory Laboratory Tests Test 06/02/18 17:57 06/02/18 21:00 06/03/18 07:29 06/03/18 10:48 Glucose (Fingerstick) 150 mg/dL (70-99) 262 mg/dL (70-99) 335 mg/dL (70-99) Sodium Level 140 mmol/L (136-145) Potassium Level 3.2 mmol/L (3.5-5.1) Chloride Level 101 mmol/L (98-107) Carbon Dioxide Level 30 mmol/L (21-32) Anion Gap 9 (6-14) Blood Urea Nitrogen 30 mg/dL (7-20) Creatinine 4.3 mg/dL (0.6-1.0) Estimated GFR (Cockcroft-Gault) 10.5 BUN/Creatinine Ratio 7 (6-20) Glucose Level 406 mg/dL (70-99) Calcium Level 8.3 mg/dL (8.5-10.1) Total Bilirubin 0.9 mg/dL (0.2-1.0) Aspartate Amino Transf (AST/SGOT) 41 U/L (15-37) Alanine Aminotransferase (ALT/SGPT) 26 U/L (14-59) Alkaline Phosphatase 186 U/L (46-116) Total Protein 5.7 g/dL (6.4-8.2) Albumin 2.5 g/dL (3.4-5.0) Albumin/Globulin Ratio 0.8 (1.0-1.7) Test 06/03/18 12:15 06/03/18 16:03 Glucose (Fingerstick) 378 mg/dL (70-99) 282 mg/dL (70-99) Medication Medications Current Medications Insulin Human Lispro (HumaLOG) 10 units TIDAC SQ Last administered on at 16:26; Start 06/03/18 at 16:30 Insulin Human Lispro (HumaLOG) 20 units 1X ONCE SQ Last administered on at 12:48; Start 06/03/18 at 12:30; Stop 06/03/18 at 12:31; Status DC Potassium Chloride (Klor-Con) 40 meq 1X ONCE PO Last administered on at 14:27; Start 06/03/18 at 13:15; Stop 06/03/18 at 13:16; Status DC Comment Review of Relevant I have reviewed the following items chante (where applicable) has been applied. JUAN M MCKEON MD Jun 03, 2018 17:11
[2018-06-03 19:20] VITALS: BP 109/46
[2018-06-03] MEDS: traZODone 50 MG TABLET. PO PRN (21:14)
[2018-06-03 23:00] VITALS: BP 115/52
[2018-06-03] MEDS: GABAPENTIN 100 MG CAPSULE. PO ONE (23:30)
[2018-06-04] VITALS (8 sets, daily range): BP systolic 83–110; BP diastolic 31–52
[2018-06-04] MEDS: GABAPENTIN 100 MG CAPSULE. PO ONE (00:09)
--- NOTE | 2018-06-04 01:01 | NUR ---
Pt refused gabapentin stating she had allergy to that medication. Allergies again reviewed with patient, and pt insists she had a reaction to gabapentin that caused her to be "out of my mind and mean" and that she had been admitted to [facility] for this reaction. Gabapentin added to her allergy list per patient request.
--- NOTE | 2018-06-04 01:06 | NUR ---
Patient requests "that something be put in writing" for her experience with staff at this hospital stay. She asks this RN to report rudeness from day shift staff that including call lights being answered with "rocío, this is vania gutierrez and Rocío, this is Gloria and things like that." She wishes to report that staff rudely asked her why she is unable to foresee bowel movements and use her call light to get help with her BM. She requests this be reported to building and grounds supervisor. [employer] paged. Pt is also very nervous about platelet transfusion and acknowledges that PRBC transfusions were well tolerated by her. She states that her son threw blood clots resulting in blindness from platelet transfusion. This RN states that adequate [id number] discussion can be done with MD in the AM but that the tunnelled catheter would likely not be placed without platelet administration. Pt is assured that she has the right to refuse but that the reasoning behind the platelet order is discussed and acknowledged by patient.
[2018-06-04 04:42] LABS: BASO # 0.1 x10^3/uL (0.0-0.2); BASO % 1 % (0-3); EOS # 0.2 x10^3/uL (0.0-0.7); EOS % 4 % (0-3); HEMATOCRIT 21.7 % (36.0-47.0); HEMOGLOBIN 7.2 g/dL (12.0-15.5); LYMPH # 0.7 x10^3/uL (1.0-4.8); LYMPH % 12 % (24-48); MEAN CORPUSCULAR HEMOGLOBIN 29 pg (25-35); MEAN CORPUSCULAR HGB CONC 33 g/dL (31-37); MEAN CORPUSCULAR VOLUME 87 fL (79-100); MONO # 0.8 x10^3/uL (0.0-1.1); MONO % 14 % (0-9); NEUT # 4.1 x10^3uL (1.8-7.7); NEUT % 68 % (31-73); PLATELET COUNT 30 x10^3/uL (140-400); RED BLOOD COUNT 2.48 x10^6/uL (3.50-5.40); RED CELL DISTRIBUTION WIDTH 15.6 % (11.5-14.5); WHITE BLOOD COUNT 5.9 x10^3/uL (4.0-11.0)
[2018-06-04 04:55] LABS: CALCIUM 8.5 mg/dL (8.5-10.1); CREATININE 5.2 mg/dL (0.6-1.0); GFR 8.4; POTASSIUM 3.4 mmol/L (3.5-5.1)
[2018-06-04] MEDS: CLOTRIMAZOLE 10 MG TROCHE. MM SCH ×5 (06:00→22:10)
[2018-06-04] MEDS ORDERED: LIDOCAINE 1%/EPI 1:100,000 20 ML VIAL. ONE (07:56)
--- NOTE | 2018-06-04 08:36 | NUR ---
SS following up with discharge planning. SS faxed Hep B total core results to [facility], fax [phone]. SS awaiting IR report for permanent cath and will fax report once received. SS awaiting confirmed dialysis chair time at this time.
[2018-06-04] MEDS: INSULIN LISPRO 300 UNITS/3 ML INSULN.PEN. SQ SCH ×6 (08:57→16:59)
[2018-06-04] MEDS: LACTULOSE 20 GM/30 ML SOLUTION. PO SCH ×2 (09:00→22:09)
[2018-06-04] MEDS: TOLNAFTATE 1% TOPICAL CREAM 15GM TUBE. TP SCH ×2 (09:00→22:09)
[2018-06-04] MEDS: NYSTATIN TOPICAL POWDER 15GM BOTTLE. TP SCH ×2 (09:00→22:09)
[2018-06-04] MEDS ORDERED: fentaNYL PF VIAL 100 MCG/2 ML VIAL ONE (09:03)
[2018-06-04] MEDS ORDERED: MIDAZOLAM HCL/PF 2 MG/2 ML VIAL. ONE (09:03)
[2018-06-04] MEDS ORDERED: VANCOMYCIN 1GM IVPB FOR OMNI 250 ML ONE (09:09)
[2018-06-04] MEDS ORDERED: VANCOMYCIN 1GM IVPB FOR OMNI 250 ML IV ONE (09:15)
--- NOTE | 2018-06-04 09:40 | PDOC ---
Subjective: Subjective: Wants her insulin - upset about having to wait. Tired. Objective: Objective: Reviewed w/ RN - NPO for perm HD cath placement later. Vital Signs: Vital Signs Date Time Temp Pulse Resp B/P (MAP) Pulse Ox O2 Delivery O2 Flow Rate FiO2 06/04/18 07:37 98.2 105 18 94/44 (61) 99 Room Air 98.2 Labs: Laboratory Tests Test 06/03/18 10:48 06/03/18 12:15 06/03/18 16:03 06/03/18 20:53 Sodium Level 140 mmol/L Potassium Level 3.2 mmol/L Chloride Level 101 mmol/L Carbon Dioxide Level 30 mmol/L Anion Gap 9 Blood Urea Nitrogen 30 mg/dL Creatinine 4.3 mg/dL Estimated GFR (Cockcroft-Gault) 10.5 BUN/Creatinine Ratio 7 Glucose Level 406 mg/dL Calcium Level 8.3 mg/dL Total Bilirubin 0.9 mg/dL Aspartate Amino Transf (AST/SGOT) 41 U/L Alanine Aminotransferase (ALT/SGPT) 26 U/L Alkaline Phosphatase 186 U/L Total Protein 5.7 g/dL Albumin 2.5 g/dL Albumin/Globulin Ratio 0.8 Hepatitis B Core Total Antibody Negative Glucose (Fingerstick) 378 mg/dL 282 mg/dL 204 mg/dL Test 06/04/18 04:30 06/04/18 07:14 White Blood Count 5.9 x10^3/uL Red Blood Count 2.48 x10^6/uL Hemoglobin 7.2 g/dL Hematocrit 21.7 % Mean Corpuscular Volume 87 fL Mean Corpuscular Hemoglobin 29 pg Mean Corpuscular Hemoglobin Concent 33 g/dL Red Cell Distribution Width 15.6 % Platelet Count 30 x10^3/uL Neutrophils (%) (Auto) 68 % Lymphocytes (%) (Auto) 12 % Monocytes (%) (Auto) 14 % Eosinophils (%) (Auto) 4 % Basophils (%) (Auto) 1 % Neutrophils # (Auto) 4.1 x10^3uL Lymphocytes # (Auto) 0.7 x10^3/uL Monocytes # (Auto) 0.8 x10^3/uL Eosinophils # (Auto) 0.2 x10^3/uL Basophils # (Auto) 0.1 x10^3/uL Sodium Level 139 mmol/L Potassium Level 3.4 mmol/L Chloride Level 100 mmol/L Carbon Dioxide Level 32 mmol/L Anion Gap 7 Blood Urea Nitrogen 33 mg/dL Creatinine 5.2 mg/dL Estimated GFR (Cockcroft-Gault) 8.4 Glucose Level 306 mg/dL Calcium Level 8.5 mg/dL Glucose (Fingerstick) 310 mg/dL PE: GEN: NAD, up to chair LUNGS: room air ABD: distended NEURO/PSYCH: probably some confusion per usual A/P: Hepatorenal syndrome -- Remains a difficult situation - pt wants full code per palliative care discussion last week - transfer to tertiary centers declined/not a transplant candidate per [facility]. JENNIE ABRAMS Jun 04, 2018 09:40
[2018-06-04] MEDS ORDERED: LIDOCAINE 1%/EPI 1:100,000 20 ML VIAL. IJ ONE (10:00)
[2018-06-04] MEDS ORDERED: MIDAZOLAM HCL/PF 2 MG/2 ML VIAL. IV ONE (10:00)
[2018-06-04] MEDS ORDERED: fentaNYL PF VIAL 100 MCG/2 ML VIAL IV ONE (10:00)
[2018-06-04] MEDS ORDERED: POTASSIUM CHLORIDE 20 MEQ TABLET.ER. PO ONE (10:15)
[2018-06-04] MEDS: rifAXIMin 550 MG TABLET PO SCH ×2 (10:36→22:10)
[2018-06-04] MEDS: PANTOPRAZOLE 40 MG TABLET.DR. PO SCH (10:38)
--- NOTE | 2018-06-04 12:07 | PDOC ---
Renal-Progress Notes Subjective Notes Notes NONE History of Present Illness Hx of present illness STABLE Vitals Vitals Vital Signs Date Time Temp Pulse Resp B/P (MAP) Pulse Ox O2 Delivery O2 Flow Rate FiO2 06/04/18 11:34 97.6 112 18 83/37 (52) 100 Room Air 97.6 Weight Weight [ ] I.O. Intake and Output Intake and Output 06/04/18 07:00 Intake Total 720 ml Balance 720 ml Intake Oral 700 ml Blood Product IV Normal Saline Flush 20 ml # Voids 1 # Bowel Movements 2 Labs Labs Laboratory Tests Test 06/03/18 12:15 06/03/18 16:03 06/03/18 20:53 06/04/18 04:30 Glucose (Fingerstick) 378 mg/dL (70-99) 282 mg/dL (70-99) 204 mg/dL (70-99) White Blood Count 5.9 x10^3/uL (4.0-11.0) Red Blood Count 2.48 x10^6/uL (3.50-5.40) Hemoglobin 7.2 g/dL (12.0-15.5) Hematocrit 21.7 % (36.0-47.0) Mean Corpuscular Volume 87 fL (79-100) Mean Corpuscular Hemoglobin 29 pg (25-35) Mean Corpuscular Hemoglobin Concent 33 g/dL (31-37) Red Cell Distribution Width 15.6 % (11.5-14.5) Platelet Count 30 x10^3/uL (140-400) Neutrophils (%) (Auto) 68 % (31-73) Lymphocytes (%) (Auto) 12 % (24-48) Monocytes (%) (Auto) 14 % (0-9) Eosinophils (%) (Auto) 4 % (0-3) Basophils (%) (Auto) 1 % (0-3) Neutrophils # (Auto) 4.1 x10^3uL (1.8-7.7) Lymphocytes # (Auto) 0.7 x10^3/uL (1.0-4.8) Monocytes # (Auto) 0.8 x10^3/uL (0.0-1.1) Eosinophils # (Auto) 0.2 x10^3/uL (0.0-0.7) Basophils # (Auto) 0.1 x10^3/uL (0.0-0.2) Sodium Level 139 mmol/L (136-145) Potassium Level 3.4 mmol/L (3.5-5.1) Chloride Level 100 mmol/L (98-107) Carbon Dioxide Level 32 mmol/L (21-32) Anion Gap 7 (6-14) Blood Urea Nitrogen 33 mg/dL (7-20) Creatinine 5.2 mg/dL (0.6-1.0) Estimated GFR (Cockcroft-Gault) 8.4 Glucose Level 306 mg/dL (70-99) Calcium Level 8.5 mg/dL (8.5-10.1) Test 06/04/18 07:14 06/04/18 11:22 Glucose (Fingerstick) 310 mg/dL (70-99) 355 mg/dL (70-99) Review of Systems Constitutional: yes: alert, oriented Ears/Nose/Throat: Yes: no symptom reported Eyes: Yes: no symptom reported Pulmonary: Yes no symptom reported Cardiovascular: Yes no symptom reported Gastrointestional: Yes: constipation Genitourinary: Yes: no symptom reported Musculoskeletal: Yes: no symptom reported Skin: Yes no symptom reported Psychiatric/Neurological: Yes: no symptom reported Endocrine: Yes: no symptom reported Physical Exam General Appearance: no apparent distress Skin: warm Heart: S1S2, no thrills Abdomen: soft, bowel sounds present Genitourinary: bladder flat Extremities: pulses present Neurology: alert, confused Musculoskeletal: Osteoarthritis Assessment Assessment IMP [id number] CKD STAGE 3 TO 4 ESLD AENMIA DM II S/P TUNNELED HD CATHETER PLAN ONGOING GI EVAL HD TOAY [facility]F TO [facility] HAS DENIED TRANSFER WILL ALSO HAVE SW SET UP [facility] TO D/C ONCE OP HD SET UP HUNG BREWSTER MD Jun 04, 2018 12:07
--- NOTE | 2018-06-04 12:38 | RAD ---
Placement of a left internal jugular tunnel hemodialysis catheter 06/04/2018 12:32 PM Clinical Indication: Renal failure. Longer term dialysis access needed. Left IJ temporary catheter in place. Sterility: All elements of maximal sterile barrier technique including the use of a cap, mask, sterile gown, sterile gloves, large sterile sheet, appropriate hand hygiene, and 2% chlorhexidine for cutaneous antisepsis (or acceptable alternative antiseptic per current guidelines) were followed for this procedure. Consent: The procedure was explained in its entirety to the patient or the patients designated manufacturer's service representative by a member of the treatment team, including a discussion of the risks, benefits and commonly accepted alternatives to the procedure, as well as the expected consequences of no therapy whatsoever. Discussion of the risks included, but was not limited to, those that are most frequent and those that are rare but possibly severe or life-threatening, as well as the possibility of unforeseen complications. Technique and Findings: Following informed consent, a timeout procedure was performed. The patient was prepped and draped in the usual sterile fashion. The pre-existing left internal jugular temporary dialysis catheter was prepped and draped as well as. A guidewire was advanced through this catheter into the IVC under fluoroscopic guidance. A 23 cm tipped cuff palindrome dialysis catheter was advanced from the small dermatotomy several centimeters inferior to the clavicle, to the prior catheter exit site. The pre-existing catheter was removed over the wire and it is peel-away sheath was advanced over the guidewire into the right atrium. The new catheter was advanced through the peel-away sheath such that its tip was in the proximal right atrium with the patient supine. Manual flow rates were assessed and found to be within normal limits. The catheter was then flushed, capped, and sutured to the skin. The neck dermatotomy was closed with Dermabond. No immediate complications were identified. Sedation: Conscious sedation was administered for 30 minutes. The patient was monitored by a qualified independent observer throughout the time of sedation. Please refer to the medical record for exact doses of medications utilized to achieve moderate sedation. Fluoroscopy time: 1.0 Minutes Dose area product:3 Gycm2 Impression: Left internal jugular tunneled hemodialysis catheter placement as described
--- NOTE | 2018-06-04 13:49 | PDOC ---
PROGRESS NOTES Chief Complaint Chief Complaint CC: DIAZ with hepatorenal syndrome Diarrhea, blood stool Toxic metabolic encephalopathy secondary to end-stage liver disease Hypertension Hyperlipidemia. [id number] renal disease secondary to hepatorenal syndrome Hx noncompliance Esophageal varices Anemia Thrombocytopenia secondary to Liver Failure History of Present Illness History of Present Illness Pt is a 62 y/o female who presented with worsening symptoms related to her past diagnosis of DIAZ with hepatorenal syndrome. Today she awake, alert and in NAD. She was seen and examined in her room. She is laying in bed eating breakfast. She still feels good and states she wants to go home. She has no new complaints today. I spoke with Dr. Motta and her RN. She is okay to D/C when sets up outpatient dialysis. Vitals Vitals Vital Signs Date Time Temp Pulse Resp B/P (MAP) Pulse Ox O2 Delivery O2 Flow Rate FiO2 06/04/18 11:34 97.6 112 18 83/37 (52) 100 Room Air 97.6 Physical Exam General: Alert, No acute distress Heart: Regular rate, Normal S1, Normal S2 Lungs: Clear, Other (No wheezing or crackles) Abdomen: Other (Distended, firm, fluid wave ) Extremities: No clubbing, No cyanosis Skin: No rashes, No significant lesion Labs LABS Laboratory Tests Test 06/03/18 16:03 06/03/18 20:53 06/04/18 04:30 06/04/18 07:14 Glucose (Fingerstick) 282 mg/dL (70-99) 204 mg/dL (70-99) 310 mg/dL (70-99) White Blood Count 5.9 x10^3/uL (4.0-11.0) Red Blood Count 2.48 x10^6/uL (3.50-5.40) Hemoglobin 7.2 g/dL (12.0-15.5) Hematocrit 21.7 % (36.0-47.0) Mean Corpuscular Volume 87 fL (79-100) Mean Corpuscular Hemoglobin 29 pg (25-35) Mean Corpuscular Hemoglobin Concent 33 g/dL (31-37) Red Cell Distribution Width 15.6 % (11.5-14.5) Platelet Count 30 x10^3/uL (140-400) Neutrophils (%) (Auto) 68 % (31-73) Lymphocytes (%) (Auto) 12 % (24-48) Monocytes (%) (Auto) 14 % (0-9) Eosinophils (%) (Auto) 4 % (0-3) Basophils (%) (Auto) 1 % (0-3) Neutrophils # (Auto) 4.1 x10^3uL (1.8-7.7) Lymphocytes # (Auto) 0.7 x10^3/uL (1.0-4.8) Monocytes # (Auto) 0.8 x10^3/uL (0.0-1.1) Eosinophils # (Auto) 0.2 x10^3/uL (0.0-0.7) Basophils # (Auto) 0.1 x10^3/uL (0.0-0.2) Sodium Level 139 mmol/L (136-145) Potassium Level 3.4 mmol/L (3.5-5.1) Chloride Level 100 mmol/L (98-107) Carbon Dioxide Level 32 mmol/L (21-32) Anion Gap 7 (6-14) Blood Urea Nitrogen 33 mg/dL (7-20) Creatinine 5.2 mg/dL (0.6-1.0) Estimated GFR (Cockcroft-Gault) 8.4 Glucose Level 306 mg/dL (70-99) Calcium Level 8.5 mg/dL (8.5-10.1) Test 06/04/18 11:22 Glucose (Fingerstick) 355 mg/dL (70-99) Review of Systems Review of Systems Gen: denies fever or chills HEENT: denies sore throat, rhinorrhea Heart: denies CP, palp Lung: denies SOA, cough GI: complains of diarrhea, bloating Assessment and Plan Assessmemt and Plan Assessment: 1. Toxic metabolic encephalopathy secondary to end-stage liver disease 2. Liver Cirrhosis secondary to DIAZ, status post previous paracentesis 05/31. now with profound ascites. 3. Hypertension 4. Hyperlipidemia. 5. Fnses-ct-[id number] renal disease secondary to hepatorenal syndrome 6 hx noncompliance 7. ESOPHAGEAL VARICES, last EGD 04/2017 w/ Grade 1 varices and gastritis 8. Bloody Stools and Diarrhea, recent abx use 9. ANEMIA, BASELINE HGB APPROX 8.5, s/p previous transfusions 05/31 10. Thrombocytopenia secondary to Liver Failure 11. Right Port in place 12. noncompliance PLAN: Prognosis seems terminal HD - pt is new to HD Palliative care consulted GI following Follow BMP, CBC daily PT/OT Home meds Appreciate subspecialist input s/p paracentesis, done 05/31 2 units of blood, 05/31 D/C after outpatient dialysis is set up Comment Review of Relevant I have reviewed the following items chante (where applicable) has been applied. Labs Laboratory Tests Test 06/02/18 16:05 06/02/18 17:57 06/02/18 21:00 06/03/18 07:29 White Blood Count 6.3 x10^3/uL (4.0-11.0) Red Blood Count 2.72 x10^6/uL (3.50-5.40) Hemoglobin 7.9 g/dL (12.0-15.5) Hematocrit 23.8 % (36.0-47.0) Mean Corpuscular Volume 88 fL (79-100) Mean Corpuscular Hemoglobin 29 pg (25-35) Mean Corpuscular Hemoglobin Concent 33 g/dL (31-37) Red Cell Distribution Width 15.5 % (11.5-14.5) Platelet Count 38 x10^3/uL (140-400) Neutrophils (%) (Auto) 65 % (31-73) Lymphocytes (%) (Auto) 11 % (24-48) Monocytes (%) (Auto) 20 % (0-9) Eosinophils (%) (Auto) 3 % (0-3) Basophils (%) (Auto) 1 % (0-3) Neutrophils # (Auto) 4.1 x10^3uL (1.8-7.7) Lymphocytes # (Auto) 0.7 x10^3/uL (1.0-4.8) Monocytes # (Auto) 1.3 x10^3/uL (0.0-1.1) Eosinophils # (Auto) 0.2 x10^3/uL (0.0-0.7) Basophils # (Auto) 0.1 x10^3/uL (0.0-0.2) Glucose (Fingerstick) 150 mg/dL (70-99) 262 mg/dL (70-99) 335 mg/dL (70-99) Test 06/03/18 10:48 06/03/18 12:15 06/03/18 16:03 06/03/18 20:53 Sodium Level 140 mmol/L (136-145) Potassium Level 3.2 mmol/L (3.5-5.1) Chloride Level 101 mmol/L (98-107) Carbon Dioxide Level 30 mmol/L (21-32) Anion Gap 9 (6-14) Blood Urea Nitrogen 30 mg/dL (7-20) Creatinine 4.3 mg/dL (0.6-1.0) Estimated GFR (Cockcroft-Gault) 10.5 BUN/Creatinine Ratio 7 (6-20) Glucose Level 406 mg/dL (70-99) Calcium Level 8.3 mg/dL (8.5-10.1) Total Bilirubin 0.9 mg/dL (0.2-1.0) Aspartate Amino Transf (AST/SGOT) 41 U/L (15-37) Alanine Aminotransferase (ALT/SGPT) 26 U/L (14-59) Alkaline Phosphatase 186 U/L (46-116) Total Protein 5.7 g/dL (6.4-8.2) Albumin 2.5 g/dL (3.4-5.0) Albumin/Globulin Ratio 0.8 (1.0-1.7) Hepatitis B Core Total Antibody Negative (Negative) Glucose (Fingerstick) 378 mg/dL (70-99) 282 mg/dL (70-99) 204 mg/dL (70-99) Test 06/04/18 04:30 06/04/18 07:14 06/04/18 11:22 White Blood Count 5.9 x10^3/uL (4.0-11.0) Red Blood Count 2.48 x10^6/uL (3.50-5.40) Hemoglobin 7.2 g/dL (12.0-15.5) Hematocrit 21.7 % (36.0-47.0) Mean Corpuscular Volume 87 fL (79-100) Mean Corpuscular Hemoglobin 29 pg (25-35) Mean Corpuscular Hemoglobin Concent 33 g/dL (31-37) Red Cell Distribution Width 15.6 % (11.5-14.5) Platelet Count 30 x10^3/uL (140-400) Neutrophils (%) (Auto) 68 % (31-73) Lymphocytes (%) (Auto) 12 % (24-48) Monocytes (%) (Auto) 14 % (0-9) Eosinophils (%) (Auto) 4 % (0-3) Basophils (%) (Auto) 1 % (0-3) Neutrophils # (Auto) 4.1 x10^3uL (1.8-7.7) Lymphocytes # (Auto) 0.7 x10^3/uL (1.0-4.8) Monocytes # (Auto) 0.8 x10^3/uL (0.0-1.1) Eosinophils # (Auto) 0.2 x10^3/uL (0.0-0.7) Basophils # (Auto) 0.1 x10^3/uL (0.0-0.2) Sodium Level 139 mmol/L (136-145) Potassium Level 3.4 mmol/L (3.5-5.1) Chloride Level 100 mmol/L (98-107) Carbon Dioxide Level 32 mmol/L (21-32) Anion Gap 7 (6-14) Blood Urea Nitrogen 33 mg/dL (7-20) Creatinine 5.2 mg/dL (0.6-1.0) Estimated GFR (Cockcroft-Gault) 8.4 Glucose Level 306 mg/dL (70-99) Calcium Level 8.5 mg/dL (8.5-10.1) Glucose (Fingerstick) 310 mg/dL (70-99) 355 mg/dL (70-99) Laboratory Tests Test 06/03/18 16:03 06/03/18 20:53 06/04/18 04:30 06/04/18 07:14 Glucose (Fingerstick) 282 mg/dL (70-99) 204 mg/dL (70-99) 310 mg/dL (70-99) White Blood Count 5.9 x10^3/uL (4.0-11.0) Red Blood Count 2.48 x10^6/uL (3.50-5.40) Hemoglobin 7.2 g/dL (12.0-15.5) Hematocrit 21.7 % (36.0-47.0) Mean Corpuscular Volume 87 fL (79-100) Mean Corpuscular Hemoglobin 29 pg (25-35) Mean Corpuscular Hemoglobin Concent 33 g/dL (31-37) Red Cell Distribution Width 15.6 % (11.5-14.5) Platelet Count 30 x10^3/uL (140-400) Neutrophils (%) (Auto) 68 % (31-73) Lymphocytes (%) (Auto) 12 % (24-48) Monocytes (%) (Auto) 14 % (0-9) Eosinophils (%) (Auto) 4 % (0-3) Basophils (%) (Auto) 1 % (0-3) Neutrophils # (Auto) 4.1 x10^3uL (1.8-7.7) Lymphocytes # (Auto) 0.7 x10^3/uL (1.0-4.8) Monocytes # (Auto) 0.8 x10^3/uL (0.0-1.1) Eosinophils # (Auto) 0.2 x10^3/uL (0.0-0.7) Basophils # (Auto) 0.1 x10^3/uL (0.0-0.2) Sodium Level 139 mmol/L (136-145) Potassium Level 3.4 mmol/L (3.5-5.1) Chloride Level 100 mmol/L (98-107) Carbon Dioxide Level 32 mmol/L (21-32) Anion Gap 7 (6-14) Blood Urea Nitrogen 33 mg/dL (7-20) Creatinine 5.2 mg/dL (0.6-1.0) Estimated GFR (Cockcroft-Gault) 8.4 Glucose Level 306 mg/dL (70-99) Calcium Level 8.5 mg/dL (8.5-10.1) Test 06/04/18 11:22 Glucose (Fingerstick) 355 mg/dL (70-99) Medications Current Medications Ondansetron HCl (Zofran) 4 mg PRN Q8HRS PRN IV NAUSEA/VOMITING Last administered on 05/30/18at 04:49; Start 05/30/18 at 04:30; Stop 05/31/18 at 04:29; Status DC Fentanyl Citrate (Fentanyl 2ml Vial) 25 mcg Q2HR W/A PRN IV PAIN Last administered on 05/30/18at 04:50; Start 05/30/18 at 04:30; Stop 05/30/18 at 04:52; Status DC Fentanyl Citrate (Fentanyl 2ml Vial) 25 mcg PRN Q2HRS PRN IV PAIN Q2HRS W/A Last administered on 05/30/18 23:54; Start 05/30/18 at 05:00 Pantoprazole Sodium (Protonix) 40 mg DAILYAC PO Last administered on 06/04/18 10:38; Start 05/30/18 at 11:30 Rifaximin (Xifaxan) 550 mg Q12HR PO Last administered on 06/04/18 10:36; Start 05/30/18 at 11:00 Lactulose (Lactulose) 20 gm BID PO Last administered on 06/01/18 08:13; Start 05/30/18 at 10:00; Stop 06/01/18 at 14:13; Status DC Sodium Bicarbonate 150 meq/Dextrose 1,150 ml @ 75 mls/hr [id number] IV Last administered on 06/03/18 22:30; Start 05/30/18 at 10:30 Lidocaine/Sodium Bicarbonate (Buffered Lidocaine 1%) 3 ml 1X ONCE INJ Last administered on 05/30/18 13:15; Start 05/30/18 at 13:15; Stop 05/30/18 at 13:16; Status DC Albumin Human 100 ml @ 100 mls/hr 1X ONCE IV Last administered on 05/30/18 13 :26; Start 05/30/18 at 14:00; Stop 05/30/18 at 14:59; Status DC Albumin Human 100 ml @ 100 mls/hr 1X ONCE IV Last administered on 05/30/18 16 :32; Start 05/30/18 at 15:00; Stop 05/30/18 at 15:59; Status DC Albumin Human 100 ml @ 100 mls/hr 1X ONCE IV Last administered on 05/30/18 14 :19; Start 05/30/18 at 13:30; Stop 05/30/18 at 14:29; Status DC Insulin Human Lispro (HumaLOG) 0-7 UNITS TIDWMEALS SQ Last administered on 06/04 12:37; Start 05/30/18 at 17:30 Dextrose (Dextrose 50%-Water Syringe) 12.5 gm PRN Q15MIN PRN IV SEE COMMENTS; Start 05/30/18 at 17:30 Clotrimazole (Mycelex) 10 mg 5XDAY MM Last administered on 06/04/18at 10:37; Start 05/30/18 at 22:00 Potassium Chloride (Klor-Con) 40 meq 1X ONCE PO Last administered on 05/30/18at 20:54; Start 05/30/18 at 19:30; Stop 05/30/18 at 19:31; Status DC Potassium Chloride (Klor-Con) 40 meq 1X ONCE PO ; Start 05/31/18 at 06:30; Stop 05/31/18 at 06:31; Status DC Potassium Chloride (Klor-Con) 40 meq 1X ONCE PO Last administered on 05/31/18at 09:50; Start 05/31/18 at 08:30; Stop 05/31/18 at 08:31; Status DC Potassium Chloride/Sodium Chloride 1,000 ml @ 75 mls/hr 1X ONCE IV ; Start 05/31/18 at 14:00; Stop 05/31/18 at 15:05; Status DC Potassium Chloride (Klor-Con) 40 meq Q2H PO Last administered on 05/31/18at 17:52 ; Start 05/31/18 at 14:00; Stop 05/31/18 at 16:01; Status DC Magnesium Sulfate 50 ml @ 25 mls/hr 1X ONCE IV Last administered on 05/31/18at 15:20; Start 05/31/18 at 14:00; Stop 05/31/18 at 15:59; Status DC Potassium Chloride/Water 100 ml @ 100 mls/hr Q1H IV Last administered on at 17:51; Start 05/31/18 at 15:15; Stop 05/31/18 at 17:14; Status DC Sodium Chloride 1,000 ml @ 1,000 mls/hr Q1H PRN IV hypotension; Start 05/31/18 at 18:06; Stop 06/01/18 at 00:05; Status DC Sodium Chloride (Normal Saline Flush) 10 ml 1X PRN PRN IV AP catheter pack; Start 05/31/18 at 18:15; Stop 06/01/18 at 18:14; Status DC Sodium Chloride (Normal Saline Flush) 10 ml 1X PRN PRN IV ALIGNMENT SPECIALIST catheter pack; Start 05/31/18 at 18:15; Stop 06/01/18 at 18:14; Status DC Sodium Chloride 1,000 ml @ 400 mls/hr Q2H30M PRN IV PATENCY; Start 05/31/18 at 18:06; Stop 06/01/18 at 06:05; Status DC Info (PHARMACY MONITORING -- do not chart) 1 each PRN DAILY PRN MC SEE COMMENTS ; Start 05/31/18 at 18:15; Status UNV Info (PHARMACY MONITORING -- do not chart) 1 each PRN DAILY PRN MC SEE COMMENTS ; Start 05/31/18 at 18:15; Status Cancel Lactulose (Lactulose) 30 gm BID PO Last administered on 06/03/18at 08:13; Start 06/01/18 at 21:00 Nystatin (Nystop) 1 kiana BID TP Last administered on 06/03/18 21:20; Start 02/07 at 15:00 Tolnaftate (Tinactin) 1 kiana BID TP Last administered on 06/03/18 21:20; Start 06/01/18 at 15:00 Nystatin (Nystop) 1 kiana 5XDAY TP ; Start 06/01/18 at 18:00; Status UNV Ondansetron HCl (Zofran Odt) 4 mg PRN Q6HRS PRN PO NAUSEA/VOMITING Last administered on 06/02/18at 01:28; Start 06/01/18 at 18:30 Ondansetron HCl (Zofran) 4 mg PRN Q6HRS PRN IV NAUSEA/VOMITING; Start 06/01/18 at 18:30 Potassium Chloride/Water 100 ml @ 100 mls/hr Q1H IV Last administered on at 03:35; Start 06/01/18 at 22:30; Stop 06/02/18 at 02:29; Status DC Potassium Chloride (Klor-Con) 40 meq 1X ONCE PO Last administered on at 22:35; Start 06/01/18 at 22:30; Stop 06/01/18 at 22:31; Status DC Lorazepam (Ativan) 0.5 mg 1X ONCE IV Last administered on 06/02/18at 06:40; Start 06/02/18 at 06:30; Stop 06/02/18 at 06:32; Status DC Trazodone HCl (Desyrel) 50 mg PRN QHS PRN PO INSOMNIA Last administered on 2/12 /19at 21:14; Start 06/02/18 at 06:30 Sodium Chloride 1,000 ml @ 1,000 mls/hr Q1H PRN IV hypotension; Start 06/02/18 at 15:21; Stop 06/02/18 at 21:20; Status DC Sodium Chloride 1,000 ml @ 400 mls/hr Q2H30M PRN IV PATENCY; Start 06/02/18 at 15:21; Stop 06/03/18 at 03:20; Status DC Info (PHARMACY MONITORING -- do not chart) 1 each PRN DAILY PRN MC SEE COMMENTS ; Start 06/02/18 at 15:30; Status UNV Info (PHARMACY MONITORING -- do not chart) 1 each PRN DAILY PRN MC SEE COMMENTS ; Start 06/02/18 at 15:30; Status UNV Sodium Chloride 1,000 ml @ 1,000 mls/hr Q1H PRN IV hypotension; Start 06/02/18 at 16:26; Stop 06/03/18 at 01:28; Status DC Sodium Chloride 1,000 ml @ 400 mls/hr Q2H30M PRN IV PATENCY; Start 06/02/18 at 16:26; Stop 06/03/18 at 04:25; Status DC Info (PHARMACY MONITORING -- do not chart) 1 each PRN DAILY PRN MC SEE COMMENTS ; Start 06/02/18 at 16:30; Status UNV Info (PHARMACY MONITORING -- do not chart) 1 each PRN DAILY PRN MC SEE COMMENTS ; Start 06/02/18 at 16:30 Insulin Human Lispro (HumaLOG) 10 units TIDAC SQ Last administered on at 12:32; Start 06/03/18 at 16:30 Insulin Human Lispro (HumaLOG) 20 units 1X ONCE SQ Last administered on at 12:48; Start 06/03/18 at 12:30; Stop 06/03/18 at 12:31; Status DC Potassium Chloride (Klor-Con) 40 meq 1X ONCE PO Last administered on at 14:27; Start 06/03/18 at 13:15; Stop 06/03/18 at 13:16; Status DC Gabapentin (Neurontin) 200 mg 1X ONCE PO ; Start 06/03/18 at 23:30; Stop at 23:31; Status DC Lidocaine/ Epinephrine (LIDOCAINE 1%-EPI 1:100,000 Multi-Dose) 20 ml STK-MED ONCE .ROUTE ; Start 06/04/18 at 07:56; Stop 06/04/18 at 07:57; Status DC Heparin Sodium/ Sodium Chloride 500 ml @ As Directed STK-MED ONCE .ROUTE ; Start 06/04/18 at 07:56; Stop 06/04/18 at 07:57; Status DC Cefazolin Sodium 0 ml @ As Directed STK-MED ONCE IV ; Start 06/04/18 at 09:03; Stop 06/04/18 at 09:04; Status DC Midazolam HCl (Versed) 2 mg STK-MED ONCE .ROUTE ; Start 06/04/18 at 09:03; Stop 06/04/18 at 09:04; Status DC Fentanyl Citrate (Fentanyl 2ml Vial) 100 mcg STK-MED ONCE .ROUTE ; Start at 09:03; Stop 06/04/18 at 09:04; Status DC Vancomycin HCl 250 ml @ As Directed STK-MED ONCE .ROUTE ; Start 06/04/18 at 09: 09; Stop 06/04/18 at 09:10; Status DC Vancomycin HCl 250 ml @ 250 mls/hr 1X ONCE IV Last administered on 06/04/18at 09:15; Start 06/04/18 at 09:15; Stop 06/04/18 at 10:14; Status DC Heparin Sodium/ Sodium Chloride (HEPARIN for ARTERIAL LINE FLUSH) 1,000 unit 1X ONCE IART Last administered on 06/04/18at 09:53; Start 06/04/18 at 10:00; Stop 06/04/18 at 10:01; Status DC Midazolam HCl (Versed) 1 mg 1X ONCE IV Last administered on 06/04/18at 09:53; Start 06/04/18 at 10:00; Stop 06/04/18 at 10:01; Status DC Fentanyl Citrate (Fentanyl 2ml Vial) 50 mcg 1X ONCE IV Last administered on at 09:53; Start 06/04/18 at 10:00; Stop 06/04/18 at 10:01; Status DC Lidocaine/ Epinephrine (LIDOCAINE 1%-EPI 1:100,000 Multi-Dose) 10 ml 1X ONCE IJ Last administered on 06/04/18at 09:53; Start 06/04/18 at 10:00; Stop at 10:01; Status DC Potassium Chloride (Klor-Con) 40 meq 1X ONCE PO Last administered on at 10:38; Start 06/04/18 at 10:15; Stop 06/04/18 at 10:16; Status DC Active Scripts Active Reported Omeprazole 40 Mg Capsule.dr 1 Cap PO DAILY Xifaxan (Rifaximin) 550 Mg Tablet 1 Tab PO BID Nystatin 100,000 Unit/1 Ml Oral.susp 5 Ml PO QID Fusion Plus Capsule (Iron,Fum&Ps/Fa/Vit B&C#18/L.ca) 1 Each Capsule 1 Each PO Albuterol Sulfate Conc Neb Soln (Albuterol Sulfate) 2.5 Mg/0.5 Ml Vial.neb 2.5 Mg NEB Q6HRS PRN Lactulose 20 Gm/30 Ml Solution 20 Gm PO TID Lantus Solostar (Insulin Glargine,Hum.rec.anlog) 100 Unit/1 Ml Insuln.pen 0 SQ HS SSI Calcium + Vitamin D Tablet (Calcium Carbonate/Vitamin D3) 1 Each Tablet 1 Each PO Albuterol Sulfate Hfa Inhaler (Albuterol Sulfate) 8.5 Gm Hfa.aer.ad 8.5 Gm IH Novolog Flexpen (Insulin Aspart) 100 Unit/1 Ml Insuln.pen 0 SQ TIDAC ssi Synthroid (Levothyroxine Sodium) 25 Mcg Tablet 300 Mcg PO DAILY Flovent 110MCG Hfa (Fluticasone Propionate) 12 Gm Aer.w.adap 12 Gm IH Vitals/I & O Vital Sign - Last 24 Hours 06/03/18 06/03/18 06/03/18 06/03/18 15:00 19:20 20:00 23:00 Temp 98.0 98.0 97.9 98.0 98.0 97.9 Pulse 100 106 110 Resp 18 20 20 B/P (MAP) 94/47 (63) 109/46 (67) 115/52 (73) Pulse Ox 97 98 100 O2 Delivery Room Air Room Air Room Air Room Air 06/04/18 06/04/18 06/04/18 06/04/18 03:35 06:15 06:31 06:39 Temp 97.9 95.8 98.9 98.9 97.9 95.8 98.9 98.9 Pulse 111 85 104 104 Resp 18 16 16 16 B/P (MAP) 100/38 (58) 110/48 108/52 108/52 (70) Pulse Ox 93 O2 Delivery Room Air 06/04/18 06/04/18 07:37 11:34 Temp 98.2 97.6 98.2 97.6 Pulse 105 112 Resp 18 18 B/P (MAP) 94/44 (61) 83/37 (52) Pulse Ox 99 100 O2 Delivery Room Air Room Air Intake and Output 06/03/18 06/03/18 06/04/18 15:00 23:00 07:00 Intake Total 720 ml Balance 720 ml SULTANA HERNANDES III DO Jun 04, 2018 13:49
--- NOTE | 2018-06-04 15:00 | NUR ---
SS following up with discharge planning. SS faxed IR report for cath placement to [facility], fax [phone]. SS awaiting confirmation of dialysis chair time and will proceed accordingly with discharge planning.
--- NOTE | 2018-06-04 15:51 | RAD ---
Placement of a left internal jugular tunnel hemodialysis catheter 06/04/2018 12:32 PM Clinical Indication: Renal failure. Longer term dialysis access needed. Left IJ temporary catheter in place. Sterility: All elements of maximal sterile barrier technique including the use of a cap, mask, sterile gown, sterile gloves, large sterile sheet, appropriate hand hygiene, and 2% chlorhexidine for cutaneous antisepsis (or acceptable alternative antiseptic per current guidelines) were followed for this procedure. Consent: The procedure was explained in its entirety to the patient or the patients designated client account representative by a member of the treatment team, including a discussion of the risks, benefits and commonly accepted alternatives to the procedure, as well as the expected consequences of no therapy whatsoever. Discussion of the risks included, but was not limited to, those that are most frequent and those that are rare but possibly severe or life-threatening, as well as the possibility of unforeseen complications. Technique and Findings: Following informed consent, a timeout procedure was performed. The patient was prepped and draped in the usual sterile fashion. The pre-existing left internal jugular temporary dialysis catheter was prepped and draped as well as. A guidewire was advanced through this catheter into the IVC under fluoroscopic guidance. A 23 cm tipped cuff palindrome dialysis catheter was advanced from the small dermatotomy several centimeters inferior to the clavicle, to the prior catheter exit site. The pre-existing catheter was removed over the wire and it is peel-away sheath was advanced over the guidewire into the right atrium. The new catheter was advanced through the peel-away sheath such that its tip was in the proximal right atrium with the patient supine. Manual flow rates were assessed and found to be within normal limits. The catheter was then flushed, capped, and sutured to the skin. The neck dermatotomy was closed with Dermabond. No immediate complications were identified. Sedation: Conscious sedation was administered for 30 minutes. The patient was monitored by a qualified independent observer throughout the time of sedation. Please refer to the medical record for exact doses of medications utilized to achieve moderate sedation. Fluoroscopy time: 1.0 Minutes Dose area product:3 Gycm2 Impression: Left internal jugular tunneled hemodialysis catheter placement as described DICTATED and SIGNED BY: ALFREDO ORTEGA MD DATE: 06/04/18 1232 [facility]
[2018-06-04] MEDS ORDERED: IV NORMAL SALINE 1000ML BAG 1,000 ML IV PRN ×2 (16:55)
[2018-06-04] MEDS ORDERED: DIALYSIS PATIENT. MC PRN ×2 (17:00)
[2018-06-04] MEDS: SODIUM BICARBONATE VIAL 150 MEQ in IV DEXTROSE 5% 1,000 ML IV SCH (17:10)
--- NOTE | 2018-06-04 17:13 | PDOC ---
PROGRESS NOTES Assessment Assessment Metabolic encephalopathy. Hepatic encephalopathy. Steatohepatitis. Portal vein thrombosis. Renal failure. Anemia. GI bleeding. HTN. HLD. Depression. RECOMMENDATIONS/PLAN: Treat medical diseases. Compliance with dialysis. OT/PT. FU with PCP. Discussed with her son on phone on 06/04/18. Past Medical History Cardiovascular: HTN, Hyperlipidemia Pulmonary: Asthma, COPD CENTRAL NERVOUS SYSTEM: Other (long history of hepatic encephalopathy, note she was admitted for this month ago) GI: Constipation (and diarrhea), GERD, GI bleed, Gastritis, Hemorrhoids, Other (esophageal varices, gallbladder disease, colonic polyps, hiatal hernia) Heme/Onc: Anemia NOS Hepatobiliary: Cirrhosis (DIAZ) Psych: Anxiety, Depression Renal/: Acute renal failure, UTI, Urinary Incontinence Dermatology: Psoriasis Past Surgical History Cataract Removal, Tonsillectomy (adenoidectomy), Hysterectomy, Other (left myringotomy, paracentesis) Family History No pertinent hx Social History Single, smokes occasional cigarettes, never used alcohol, disabled Allergies Coded Allergies: Sulfa (Sulfonamide Antibiotics) (Verified Allergy, Severe, Swelling, ) tongue swelling, rash cephalexin (Verified Allergy, Severe, Anaphylaxis, 05/22/18) TOLERATES AMOX, ZOSYN doxycycline (Verified Allergy, Intermediate, 04/24/18) insulin detemir (Verified Allergy, Intermediate, Rash, 04/24/18) morphine (Verified Allergy, Intermediate, rash, 04/24/18) niacin (Verified Allergy, Intermediate, Rash, 04/24/18) edema oxycodone (Verified Allergy, Intermediate, rash, 04/24/18) povidone-iodine (Verified Allergy, Intermediate, It, 04/24/18) rifaximin (Verified Allergy, Intermediate, Itching, 04/24/18) tramadol (Verified Allergy, Intermediate, Rash, 04/24/18) I S O L A T I O N *CONTACT* (Verified Allergy, Unknown, 04/24/18) VRE - urine 12/20/17 codeine (Verified Adverse Reaction, Intermediate, Nausea and Vomiting, 04/24) erythromycin base (Verified Adverse Reaction, Intermediate, Diarrhea, ) ROS Negative for fever, chills, weight loss, shortness of breath, chest pain, indigestion, hematochezia, melena, and dysuria. Full 14-point review of systems is negative. PHYSICAL EXAMINATION: General appearance in subacute on chronic distress. HEENT: Normocephalic and nontraumatic. Eyes, nose, ears, and throat are unremarkable. Neck is supple. No lymphadenopathy. No Crepitus. Cardiovascular: S1, S2, regular rate and rhythm. Pulmonary: Mildly decreased to auscultation bilaterally. Abdomen: Bowel sounds are positive. Extremities: No rash, lesions, or edema. No restriction of range of motion NEUROLOGICAL EXAMINATION: Awake. Oriented to time, place and person. PERRL. EOMI. CN: no focal findings. Muscle tone: WNL. Muscle strength: 4+ DTR: 1-2 Plantar reflex: Neutral response bilaterally Gait: able to walk. Sensory exam: No abnormal findings. No acute cerebellar signs elicited. F-T-N test fine. Objective Objective Vital Signs Date Time Temp Pulse Resp B/P (MAP) Pulse Ox O2 Delivery O2 Flow Rate FiO2 06/04/18 15:10 98.2 101 20 89/31 (50) 100 Room Air 98.2 Intake and Output 06/04/18 07:00 Intake Total 720 ml Balance 720 ml Intake Oral 700 ml Blood Product IV Normal Saline Flush 20 ml # Voids 1 # Bowel Movements 2 Vitals Signs Vitals VS - Last 72 Hours, by Label Date Time Temp Pulse Resp B/P (MAP) Pulse Ox O2 Delivery O2 Flow Rate FiO2 06/04/18 15:10 98.2 101 20 89/31 (50) 100 Room Air 98.2 06/04/18 11:34 97.6 112 18 83/37 (52) 100 Room Air 97.6 06/04/18 08:00 Room Air 06/04/18 07:37 98.2 105 18 94/44 (61) 99 Room Air 98.2 06/04/18 06:39 98.9 104 16 108/52 (70) 98.9 06/04/18 06:31 98.9 104 16 108/52 98.9 06/04/18 06:15 95.8 85 16 110/48 95.8 06/04/18 03:35 97.9 111 18 100/38 (58) 93 Room Air 97.9 06/03/18 23:00 97.9 110 20 115/52 (73) 100 Room Air 97.9 06/03/18 20:00 Room Air 06/03/18 19:20 98.0 106 20 109/46 (67) 98 Room Air 98.0 06/03/18 15:00 98.0 100 18 94/47 (63) 97 Room Air 98.0 06/03/18 11:00 98.0 98 18 92/44 (60) 100 Room Air 98.0 06/03/18 08:30 Room Air 06/03/18 07:00 98.7 101 18 96/39 (58) 97 Room Air 98.7 Laboratory Laboratory Laboratory Tests Test 06/03/18 20:53 06/04/18 04:30 06/04/18 07:14 06/04/18 11:22 Glucose (Fingerstick) 204 mg/dL (70-99) 310 mg/dL (70-99) 355 mg/dL (70-99) White Blood Count 5.9 x10^3/uL (4.0-11.0) Red Blood Count 2.48 x10^6/uL (3.50-5.40) Hemoglobin 7.2 g/dL (12.0-15.5) Hematocrit 21.7 % (36.0-47.0) Mean Corpuscular Volume 87 fL (79-100) Mean Corpuscular Hemoglobin 29 pg (25-35) Mean Corpuscular Hemoglobin Concent 33 g/dL (31-37) Red Cell Distribution Width 15.6 % (11.5-14.5) Platelet Count 30 x10^3/uL (140-400) Neutrophils (%) (Auto) 68 % (31-73) Lymphocytes (%) (Auto) 12 % (24-48) Monocytes (%) (Auto) 14 % (0-9) Eosinophils (%) (Auto) 4 % (0-3) Basophils (%) (Auto) 1 % (0-3) Neutrophils # (Auto) 4.1 x10^3uL (1.8-7.7) Lymphocytes # (Auto) 0.7 x10^3/uL (1.0-4.8) Monocytes # (Auto) 0.8 x10^3/uL (0.0-1.1) Eosinophils # (Auto) 0.2 x10^3/uL (0.0-0.7) Basophils # (Auto) 0.1 x10^3/uL (0.0-0.2) Sodium Level 139 mmol/L (136-145) Potassium Level 3.4 mmol/L (3.5-5.1) Chloride Level 100 mmol/L (98-107) Carbon Dioxide Level 32 mmol/L (21-32) Anion Gap 7 (6-14) Blood Urea Nitrogen 33 mg/dL (7-20) Creatinine 5.2 mg/dL (0.6-1.0) Estimated GFR (Cockcroft-Gault) 8.4 Glucose Level 306 mg/dL (70-99) Calcium Level 8.5 mg/dL (8.5-10.1) Test 06/04/18 16:36 Glucose (Fingerstick) 344 mg/dL (70-99) Medication Medications Current Medications Cefazolin Sodium 0 ml @ As Directed STK-MED ONCE IV ; Start 06/04/18 at 09:03; Stop 06/04/18 at 09:04; Status DC Fentanyl Citrate (Fentanyl 2ml Vial) 50 mcg 1X ONCE IV Last administered on at 09:53; Start 06/04/18 at 10:00; Stop 06/04/18 at 10:01; Status DC Fentanyl Citrate (Fentanyl 2ml Vial) 100 mcg STK-MED ONCE .ROUTE ; Start at 09:03; Stop 06/04/18 at 09:04; Status DC Gabapentin (Neurontin) 200 mg 1X ONCE PO ; Start 06/03/18 at 23:30; Stop at 23:31; Status DC Heparin Sodium/ Sodium Chloride 500 ml @ As Directed STK-MED ONCE .ROUTE ; Start 06/04/18 at 07:56; Stop 06/04/18 at 07:57; Status DC Heparin Sodium/ Sodium Chloride (HEPARIN for ARTERIAL LINE FLUSH) 1,000 unit 1X ONCE IART Last administered on 06/04/18at 09:53; Start 06/04/18 at 10:00; Stop 06/04/18 at 10:01; Status DC Info (PHARMACY MONITORING -- do not chart) 1 each PRN DAILY PRN MC SEE COMMENTS ; Start 06/04/18 at 17:00; Status UNV Info (PHARMACY MONITORING -- do not chart) 1 each PRN DAILY PRN MC SEE COMMENTS ; Start 06/04/18 at 17:00; Status UNV Lidocaine/ Epinephrine (LIDOCAINE 1%-EPI 1:100,000 Multi-Dose) 10 ml 1X ONCE IJ Last administered on 06/04/18at 09:53; Start 06/04/18 at 10:00; Stop at 10:01; Status DC Lidocaine/ Epinephrine (LIDOCAINE 1%-EPI 1:100,000 Multi-Dose) 20 ml STK-MED ONCE .ROUTE ; Start 06/04/18 at 07:56; Stop 06/04/18 at 07:57; Status DC Midazolam HCl (Versed) 1 mg 1X ONCE IV Last administered on 06/04/18at 09:53; Start 06/04/18 at 10:00; Stop 06/04/18 at 10:01; Status DC Midazolam HCl (Versed) 2 mg STK-MED ONCE .ROUTE ; Start 06/04/18 at 09:03; Stop 06/04/18 at 09:04; Status DC Potassium Chloride (Klor-Con) 40 meq 1X ONCE PO Last administered on at 10:38; Start 06/04/18 at 10:15; Stop 06/04/18 at 10:16; Status DC Sodium Chloride 1,000 ml @ 400 mls/hr Q2H30M PRN IV PATENCY; Start 06/04/18 at 16:55; Stop 06/05/18 at 04:54 Sodium Chloride 1,000 ml @ 1,000 mls/hr Q1H PRN IV hypotension; Start 06/04/18 at 16:55; Stop 06/04/18 at 22:54 Vancomycin HCl 250 ml @ 250 mls/hr 1X ONCE IV Last administered on 06/04/18at 09:15; Start 06/04/18 at 09:15; Stop 06/04/18 at 10:14; Status DC Vancomycin HCl 250 ml @ As Directed STK-MED ONCE .ROUTE ; Start 06/04/18 at 09: 09; Stop 06/04/18 at 09:10; Status DC Comment Review of Relevant I have reviewed the following items chante (where applicable) has been applied. JUAN M MCKEON MD Jun 04, 2018 17:13
[2018-06-04] MEDS: traZODone 50 MG TABLET. PO PRN (22:10)
[2018-06-05 03:01] VITALS: BP 95/83
[2018-06-05] MEDS: SODIUM BICARBONATE VIAL 150 MEQ in IV DEXTROSE 5% 1,000 ML IV SCH (06:02)
[2018-06-05] MEDS: CLOTRIMAZOLE 10 MG TROCHE. MM SCH ×2 (06:15→10:06)
[2018-06-05 07:00] VITALS: BP 108/56
[2018-06-05] MEDS: rifAXIMin 550 MG TABLET PO SCH (08:36)
[2018-06-05] MEDS: PANTOPRAZOLE 40 MG TABLET.DR. PO SCH (08:36)
[2018-06-05] MEDS: INSULIN LISPRO 300 UNITS/3 ML INSULN.PEN. SQ SCH ×4 (08:40→12:45)
[2018-06-05] MEDS: TOLNAFTATE 1% TOPICAL CREAM 15GM TUBE. TP SCH (08:42)
[2018-06-05] MEDS: NYSTATIN TOPICAL POWDER 15GM BOTTLE. TP SCH (08:43)
[2018-06-05] MEDS: LACTULOSE 20 GM/30 ML SOLUTION. PO SCH (08:43)
--- NOTE | 2018-06-05 09:36 | PDOC ---
PROGRESS NOTES Chief Complaint Chief Complaint CC: DIAZ with hepatorenal syndrome Diarrhea, blood stool Toxic metabolic encephalopathy secondary to end-stage liver disease Hypertension Hyperlipidemia. [id number] renal disease secondary to hepatorenal syndrome Hx noncompliance Esophageal varices Anemia Thrombocytopenia secondary to Liver Failure History of Present Illness History of Present Illness Pt is a 62 y/o female who presented with worsening symptoms related to her past diagnosis of DIAZ with hepatorenal syndrome. Today she is resting and in NAD. I discussed with her RN. Planned D/C today after outpatient dialysis is set up. Vitals Vitals Vital Signs Date Time Temp Pulse Resp B/P (MAP) Pulse Ox O2 Delivery O2 Flow Rate FiO2 06/05/18 07:00 99.5 107 18 108/56 (73) 97 Room Air 99.5 Physical Exam General: Alert, No acute distress Heart: Regular rate, Normal S1, Normal S2 Lungs: Clear, Other (No wheezing or crackles) Abdomen: Other (Distended, firm, fluid wave ) Extremities: No clubbing, No cyanosis Skin: No rashes, No significant lesion Labs LABS Laboratory Tests Test 06/04/18 11:22 06/04/18 16:36 06/04/18 21:38 06/05/18 08:01 Glucose (Fingerstick) 355 mg/dL (70-99) 344 mg/dL (70-99) 196 mg/dL (70-99) 365 mg/dL (70-99) Review of Systems Review of Systems Gen: denies fever or chills HEENT: denies sore throat, rhinorrhea Heart: denies CP, palpitations Lung: denies SOA, cough GI: complains of diarrhea, bloating Assessment and Plan Assessmemt and Plan Assessment: 1. Toxic metabolic encephalopathy secondary to end-stage liver disease 2. Liver Cirrhosis secondary to DIAZ, status post previous paracentesis 05/31. now with profound ascites. 3. Hypertension 4. Hyperlipidemia. 5. Ijmmn-yn-sivwlhs renal disease secondary to hepatorenal syndrome 6 hx noncompliance 7. ESOPHAGEAL VARICES, last EGD 04/2017 w/ Grade 1 varices and gastritis 8. Bloody Stools and Diarrhea, recent abx use 9. ANEMIA, BASELINE HGB APPROX 8.5, s/p previous transfusions 05/31 10. Thrombocytopenia secondary to Liver Failure 11. Right Port in place 12. noncompliance PLAN: Prognosis seems terminal HD - pt is new to HD Daily labs PT/OT Home meds Palliative care following GI following Appreciate subspecialist input s/p paracentesis, done 05/31 2 units of blood, 05/31 Probable D/C today after outpatient dialysis is set up Comment Review of Relevant I have reviewed the following items chante (where applicable) has been applied. Labs Laboratory Tests Test 06/03/18 10:48 06/03/18 12:15 06/03/18 16:03 06/03/18 20:53 Sodium Level 140 mmol/L (136-145) Potassium Level 3.2 mmol/L (3.5-5.1) Chloride Level 101 mmol/L (98-107) Carbon Dioxide Level 30 mmol/L (21-32) Anion Gap 9 (6-14) Blood Urea Nitrogen 30 mg/dL (7-20) Creatinine 4.3 mg/dL (0.6-1.0) Estimated GFR (Cockcroft-Gault) 10.5 BUN/Creatinine Ratio 7 (6-20) Glucose Level 406 mg/dL (70-99) Calcium Level 8.3 mg/dL (8.5-10.1) Total Bilirubin 0.9 mg/dL (0.2-1.0) Aspartate Amino Transf (AST/SGOT) 41 U/L (15-37) Alanine Aminotransferase (ALT/SGPT) 26 U/L (14-59) Alkaline Phosphatase 186 U/L (46-116) Total Protein 5.7 g/dL (6.4-8.2) Albumin 2.5 g/dL (3.4-5.0) Albumin/Globulin Ratio 0.8 (1.0-1.7) Hepatitis B Core Total Antibody Negative (Negative) Glucose (Fingerstick) 378 mg/dL (70-99) 282 mg/dL (70-99) 204 mg/dL (70-99) Test 06/04/18 04:30 06/04/18 07:14 06/04/18 11:22 06/04/18 16:36 White Blood Count 5.9 x10^3/uL (4.0-11.0) Red Blood Count 2.48 x10^6/uL (3.50-5.40) Hemoglobin 7.2 g/dL (12.0-15.5) Hematocrit 21.7 % (36.0-47.0) Mean Corpuscular Volume 87 fL (79-100) Mean Corpuscular Hemoglobin 29 pg (25-35) Mean Corpuscular Hemoglobin Concent 33 g/dL (31-37) Red Cell Distribution Width 15.6 % (11.5-14.5) Platelet Count 30 x10^3/uL (140-400) Neutrophils (%) (Auto) 68 % (31-73) Lymphocytes (%) (Auto) 12 % (24-48) Monocytes (%) (Auto) 14 % (0-9) Eosinophils (%) (Auto) 4 % (0-3) Basophils (%) (Auto) 1 % (0-3) Neutrophils # (Auto) 4.1 x10^3uL (1.8-7.7) Lymphocytes # (Auto) 0.7 x10^3/uL (1.0-4.8) Monocytes # (Auto) 0.8 x10^3/uL (0.0-1.1) Eosinophils # (Auto) 0.2 x10^3/uL (0.0-0.7) Basophils # (Auto) 0.1 x10^3/uL (0.0-0.2) Sodium Level 139 mmol/L (136-145) Potassium Level 3.4 mmol/L (3.5-5.1) Chloride Level 100 mmol/L (98-107) Carbon Dioxide Level 32 mmol/L (21-32) Anion Gap 7 (6-14) Blood Urea Nitrogen 33 mg/dL (7-20) Creatinine 5.2 mg/dL (0.6-1.0) Estimated GFR (Cockcroft-Gault) 8.4 Glucose Level 306 mg/dL (70-99) Calcium Level 8.5 mg/dL (8.5-10.1) Glucose (Fingerstick) 310 mg/dL (70-99) 355 mg/dL (70-99) 344 mg/dL (70-99) Test 06/04/18 21:38 06/05/18 08:01 Glucose (Fingerstick) 196 mg/dL (70-99) 365 mg/dL (70-99) Laboratory Tests Test 06/04/18 11:22 06/04/18 16:36 06/04/18 21:38 06/05/18 08:01 Glucose (Fingerstick) 355 mg/dL (70-99) 344 mg/dL (70-99) 196 mg/dL (70-99) 365 mg/dL (70-99) Medications Current Medications Ondansetron HCl (Zofran) 4 mg PRN Q8HRS PRN IV NAUSEA/VOMITING Last administered on 05/30/18 04:49; Start 05/30/18 at 04:30; Stop 05/31/18 at 04:29; Status DC Fentanyl Citrate (Fentanyl 2ml Vial) 25 mcg Q2HR W/A PRN IV PAIN Last administered on 05/30/18 04:50; Start 05/30/18 at 04:30; Stop 05/30/18 at 04:52; Status DC Fentanyl Citrate (Fentanyl 2ml Vial) 25 mcg PRN Q2HRS PRN IV PAIN Q2HRS W/A Last administered on 05/30/18 23:54; Start 05/30/18 at 05:00 Pantoprazole Sodium (Protonix) 40 mg DAILYAC PO Last administered on 06/05/18 08:36; Start 05/30/18 at 11:30 Rifaximin (Xifaxan) 550 mg Q12HR PO Last administered on 06/05/18 08:36; Start 05/30/18 at 11:00 Lactulose (Lactulose) 20 gm BID PO Last administered on 06/01/18 08:13; Start 05/30/18 at 10:00; Stop 06/01/18 at 14:13; Status DC Sodium Bicarbonate 150 meq/Dextrose 1,150 ml @ 75 mls/hr [id number] IV Last administered on 06/05/18 06:02; Start 05/30/18 at 10:30 Lidocaine/Sodium Bicarbonate (Buffered Lidocaine 1%) 3 ml 1X ONCE INJ Last administered on 05/30/18 13:15; Start 05/30/18 at 13:15; Stop 05/30/18 at 13:16; Status DC Albumin Human 100 ml @ 100 mls/hr 1X ONCE IV Last administered on 05/30/18 13 :26; Start 05/30/18 at 14:00; Stop 05/30/18 at 14:59; Status DC Albumin Human 100 ml @ 100 mls/hr 1X ONCE IV Last administered on 05/30/18at 16 :32; Start 05/30/18 at 15:00; Stop 05/30/18 at 15:59; Status DC Albumin Human 100 ml @ 100 mls/hr 1X ONCE IV Last administered on 05/30/18at 14 :19; Start 05/30/18 at 13:30; Stop 05/30/18 at 14:29; Status DC Insulin Human Lispro (HumaLOG) 0-7 UNITS TIDWMEALS SQ Last administered on 06/05at 08:41; Start 05/30/18 at 17:30 Dextrose (Dextrose 50%-Water Syringe) 12.5 gm PRN Q15MIN PRN IV SEE COMMENTS; Start 05/30/18 at 17:30 Clotrimazole (Mycelex) 10 mg 5XDAY MM Last administered on 06/05/18at 06:15; Start 05/30/18 at 22:00 Potassium Chloride (Klor-Con) 40 meq 1X ONCE PO Last administered on 05/30/18at 20:54; Start 05/30/18 at 19:30; Stop 05/30/18 at 19:31; Status DC Potassium Chloride (Klor-Con) 40 meq 1X ONCE PO ; Start 05/31/18 at 06:30; Stop 05/31/18 at 06:31; Status DC Potassium Chloride (Klor-Con) 40 meq 1X ONCE PO Last administered on 05/31/18at 09:50; Start 05/31/18 at 08:30; Stop 05/31/18 at 08:31; Status DC Potassium Chloride/Sodium Chloride 1,000 ml @ 75 mls/hr 1X ONCE IV ; Start 05/31/18 at 14:00; Stop 05/31/18 at 15:05; Status DC Potassium Chloride (Klor-Con) 40 meq Q2H PO Last administered on 05/31/18at 17:52 ; Start 05/31/18 at 14:00; Stop 05/31/18 at 16:01; Status DC Magnesium Sulfate 50 ml @ 25 mls/hr 1X ONCE IV Last administered on 05/31/18at 15:20; Start 05/31/18 at 14:00; Stop 05/31/18 at 15:59; Status DC Potassium Chloride/Water 100 ml @ 100 mls/hr Q1H IV Last administered on at 17:51; Start 05/31/18 at 15:15; Stop 05/31/18 at 17:14; Status DC Sodium Chloride 1,000 ml @ 1,000 mls/hr Q1H PRN IV hypotension; Start 05/31/18 at 18:06; Stop 06/01/18 at 00:05; Status DC Sodium Chloride (Normal Saline Flush) 10 ml 1X PRN PRN IV AP catheter pack; Start 05/31/18 at 18:15; Stop 06/01/18 at 18:14; Status DC Sodium Chloride (Normal Saline Flush) 10 ml 1X PRN PRN IV CERAMIC TILER catheter pack; Start 05/31/18 at 18:15; Stop 06/01/18 at 18:14; Status DC Sodium Chloride 1,000 ml @ 400 mls/hr Q2H30M PRN IV PATENCY; Start 05/31/18 at 18:06; Stop 06/01/18 at 06:05; Status DC Info (PHARMACY MONITORING -- do not chart) 1 each PRN DAILY PRN MC SEE COMMENTS ; Start 05/31/18 at 18:15; Status UNV Info (PHARMACY MONITORING -- do not chart) 1 each PRN DAILY PRN MC SEE COMMENTS ; Start 05/31/18 at 18:15; Status Cancel Lactulose (Lactulose) 30 gm BID PO Last administered on 06/04/18at 22:09; Start 06/01/18 at 21:00 Nystatin (Nystop) 1 kiana BID TP Last administered on 06/05/18at 08:43; Start 02/07 at 15:00 Tolnaftate (Tinactin) 1 kiana BID TP Last administered on 06/05/18at 08:42; Start 06/01/18 at 15:00 Nystatin (Nystop) 1 kiana 5XDAY TP ; Start 06/01/18 at 18:00; Status UNV Ondansetron HCl (Zofran Odt) 4 mg PRN Q6HRS PRN PO NAUSEA/VOMITING Last administered on 06/02/18at 01:28; Start 06/01/18 at 18:30 Ondansetron HCl (Zofran) 4 mg PRN Q6HRS PRN IV NAUSEA/VOMITING; Start 06/01/18 at 18:30 Potassium Chloride/Water 100 ml @ 100 mls/hr Q1H IV Last administered on at 03:35; Start 06/01/18 at 22:30; Stop 06/02/18 at 02:29; Status DC Potassium Chloride (Klor-Con) 40 meq 1X ONCE PO Last administered on at 22:35; Start 06/01/18 at 22:30; Stop 06/01/18 at 22:31; Status DC Lorazepam (Ativan) 0.5 mg 1X ONCE IV Last administered on 06/02/18at 06:40; Start 06/02/18 at 06:30; Stop 06/02/18 at 06:32; Status DC Trazodone HCl (Desyrel) 50 mg PRN QHS PRN PO INSOMNIA Last administered on 06/04at 22:10; Start 06/02/18 at 06:30 Sodium Chloride 1,000 ml @ 1,000 mls/hr Q1H PRN IV hypotension; Start 06/02/18 at 15:21; Stop 06/02/18 at 21:20; Status DC Sodium Chloride 1,000 ml @ 400 mls/hr Q2H30M PRN IV PATENCY; Start 06/02/18 at 15:21; Stop 06/03/18 at 03:20; Status DC Info (PHARMACY MONITORING -- do not chart) 1 each PRN DAILY PRN MC SEE COMMENTS ; Start 06/02/18 at 15:30; Status UNV Info (PHARMACY MONITORING -- do not chart) 1 each PRN DAILY PRN MC SEE COMMENTS ; Start 06/02/18 at 15:30; Status UNV Sodium Chloride 1,000 ml @ 1,000 mls/hr Q1H PRN IV hypotension; Start 06/02/18 at 16:26; Stop 06/03/18 at 01:28; Status DC Sodium Chloride 1,000 ml @ 400 mls/hr Q2H30M PRN IV PATENCY; Start 06/02/18 at 16:26; Stop 06/03/18 at 04:25; Status DC Info (PHARMACY MONITORING -- do not chart) 1 each PRN DAILY PRN MC SEE COMMENTS ; Start 06/02/18 at 16:30; Status UNV Info (PHARMACY MONITORING -- do not chart) 1 each PRN DAILY PRN MC SEE COMMENTS ; Start 06/02/18 at 16:30 Insulin Human Lispro (HumaLOG) 10 units TIDAC SQ Last administered on at 08:40; Start 06/03/18 at 16:30 Insulin Human Lispro (HumaLOG) 20 units 1X ONCE SQ Last administered on at 12:48; Start 06/03/18 at 12:30; Stop 06/03/18 at 12:31; Status DC Potassium Chloride (Klor-Con) 40 meq 1X ONCE PO Last administered on at 14:27; Start 06/03/18 at 13:15; Stop 06/03/18 at 13:16; Status DC Gabapentin (Neurontin) 200 mg 1X ONCE PO ; Start 06/03/18 at 23:30; Stop at 23:31; Status DC Lidocaine/ Epinephrine (LIDOCAINE 1%-EPI 1:100,000 Multi-Dose) 20 ml STK-MED ONCE .ROUTE ; Start 06/04/18 at 07:56; Stop 06/04/18 at 07:57; Status DC Heparin Sodium/ Sodium Chloride 500 ml @ As Directed STK-MED ONCE .ROUTE ; Start 06/04/18 at 07:56; Stop 06/04/18 at 07:57; Status DC Cefazolin Sodium 0 ml @ As Directed STK-MED ONCE IV ; Start 06/04/18 at 09:03; Stop 06/04/18 at 09:04; Status DC Midazolam HCl (Versed) 2 mg STK-MED ONCE .ROUTE ; Start 06/04/18 at 09:03; Stop 06/04/18 at 09:04; Status DC Fentanyl Citrate (Fentanyl 2ml Vial) 100 mcg STK-MED ONCE .ROUTE ; Start at 09:03; Stop 06/04/18 at 09:04; Status DC Vancomycin HCl 250 ml @ As Directed STK-MED ONCE .ROUTE ; Start 06/04/18 at 09: 09; Stop 06/04/18 at 09:10; Status DC Vancomycin HCl 250 ml @ 250 mls/hr 1X ONCE IV Last administered on 06/04/18at 09:15; Start 06/04/18 at 09:15; Stop 06/04/18 at 10:14; Status DC Heparin Sodium/ Sodium Chloride (HEPARIN for ARTERIAL LINE FLUSH) 1,000 unit 1X ONCE IART Last administered on 06/04/18at 09:53; Start 06/04/18 at 10:00; Stop 06/04/18 at 10:01; Status DC Midazolam HCl (Versed) 1 mg 1X ONCE IV Last administered on 06/04/18at 09:53; Start 06/04/18 at 10:00; Stop 06/04/18 at 10:01; Status DC Fentanyl Citrate (Fentanyl 2ml Vial) 50 mcg 1X ONCE IV Last administered on at 09:53; Start 06/04/18 at 10:00; Stop 06/04/18 at 10:01; Status DC Lidocaine/ Epinephrine (LIDOCAINE 1%-EPI 1:100,000 Multi-Dose) 10 ml 1X ONCE IJ Last administered on 06/04/18at 09:53; Start 06/04/18 at 10:00; Stop at 10:01; Status DC Potassium Chloride (Klor-Con) 40 meq 1X ONCE PO Last administered on at 10:38; Start 06/04/18 at 10:15; Stop 06/04/18 at 10:16; Status DC Sodium Chloride 1,000 ml @ 1,000 mls/hr Q1H PRN IV hypotension; Start 06/04/18 at 16:55; Stop 06/04/18 at 22:54; Status DC Sodium Chloride 1,000 ml @ 400 mls/hr Q2H30M PRN IV PATENCY; Start 06/04/18 at 16:55; Stop 06/05/18 at 04:54; Status DC Info (PHARMACY MONITORING -- do not chart) 1 each PRN DAILY PRN MC SEE COMMENTS ; Start 06/04/18 at 17:00; Status UNV Info (PHARMACY MONITORING -- do not chart) 1 each PRN DAILY PRN MC SEE COMMENTS ; Start 06/04/18 at 17:00; Status UNV Active Scripts Active Reported Omeprazole 40 Mg Capsule.dr 1 Cap PO DAILY Xifaxan (Rifaximin) 550 Mg Tablet 1 Tab PO BID Nystatin 100,000 Unit/1 Ml Oral.susp 5 Ml PO QID Fusion Plus Capsule (Iron,Fum&Ps/Fa/Vit B&C#18/L.ca) 1 Each Capsule 1 Each PO Albuterol Sulfate Conc Neb Soln (Albuterol Sulfate) 2.5 Mg/0.5 Ml Vial.neb 2.5 Mg NEB Q6HRS PRN Lactulose 20 Gm/30 Ml Solution 20 Gm PO TID Lantus Solostar (Insulin Glargine,Hum.rec.anlog) 100 Unit/1 Ml Insuln.pen 0 SQ HS SSI Calcium + Vitamin D Tablet (Calcium Carbonate/Vitamin D3) 1 Each Tablet 1 Each PO Albuterol Sulfate Hfa Inhaler (Albuterol Sulfate) 8.5 Gm Hfa.aer.ad 8.5 Gm IH Novolog Flexpen (Insulin Aspart) 100 Unit/1 Ml Insuln.pen 0 SQ TIDAC ssi Synthroid (Levothyroxine Sodium) 25 Mcg Tablet 300 Mcg PO DAILY Flovent 110MCG Hfa (Fluticasone Propionate) 12 Gm Aer.w.adap 12 Gm IH Vitals/I & O Vital Sign - Last 24 Hours 06/04/18 06/04/18 06/04/18 06/04/18 11:34 15:10 20:50 23:35 Temp 97.6 98.2 98.4 97.6 98.2 98.4 Pulse 112 101 107 Resp 18 20 17 B/P (MAP) 83/37 (52) 89/31 (50) 104/34 (57) Pulse Ox 100 100 100 O2 Delivery Room Air Room Air Room Air Room Air 06/05/18 06/05/18 03:01 07:00 Temp 98.1 99.5 98.1 99.5 Pulse 106 107 Resp 18 18 B/P (MAP) 95/83 (87) 108/56 (73) Pulse Ox 97 97 O2 Delivery Room Air Room Air Intake and Output 06/04/18 06/04/18 06/05/18 14:59 22:59 06:59 Intake Total 240 ml 0 ml 360 ml Balance 240 ml 0 ml 360 ml SULTANA HERNANDES K III DO Jun 05, 2018 09:36
[2018-06-05 09:45] LABS: CALCIUM 8.4 mg/dL (8.5-10.1); CREATININE 3.6 mg/dL (0.6-1.0); GFR 12.9; POTASSIUM 3.9 mmol/L (3.5-5.1)
[2018-06-05 10:05] LABS: BASO # 0.1 x10^3/uL (0.0-0.2); BASO % 1 % (0-3); EOS # 0.2 x10^3/uL (0.0-0.7); EOS % 3 % (0-3); HEMATOCRIT 24.9 % (36.0-47.0); LYMPH # 0.6 x10^3/uL (1.0-4.8); LYMPH % 8 % (24-48); MEAN CORPUSCULAR HEMOGLOBIN 29 pg (25-35); MEAN CORPUSCULAR HGB CONC 32 g/dL (31-37); MEAN CORPUSCULAR VOLUME 90 fL (79-100); MONO # 0.8 x10^3/uL (0.0-1.1); MONO % 11 % (0-9); NEUT # 5.8 x10^3uL (1.8-7.7); NEUT % 77 % (31-73); PLATELET COUNT 57 x10^3/uL (140-400); RED BLOOD COUNT 2.78 x10^6/uL (3.50-5.40); WHITE BLOOD COUNT 7.5 x10^3/uL (4.0-11.0)
[2018-06-05 10:42] LABS: ANISOCYTOSIS SLIGHT; PLT ESTIMATE DECREASED (ADEQUATE); POLYCHROMASIA PRESENT
[2018-06-05 10:43] LABS: OVALOCYTES FEW; TEAR DROP CELLS OCC
[2018-06-05 11:00] VITALS: BP 91/40
--- NOTE | 2018-06-05 11:37 | DISCH ---
DISCHARGE DISCHARGE INFORMATION: FINAL DIAGNOSIS Problems Medical Problems: (1) Anemia Status: Acute (2) Lower GI bleed Status: Acute (3) Thrombocytopenia Status: Acute CONDITION ON DISCHARGE: Stable CODE STATUS: Code Status: Full JAIL: SNF STAY <30 DAYS: Yes HOSPICE: HOSPICE: No HOSPICE EVAL & TREAT: No LTAC: ADMIT TO LTAC: No POST DISCHARGE ORDERS: ACTIVITY ORDERS: Activity as tolerated WEIGHT BEARING STATUS: As tolerated BATHING ORDERS: Shower-keep dressing dry, No Tub Bath until see WOUND/INCISION CARE: Keep wound/cast CDI CHECKS AFTER DISCHARGE: CHECKS AFTER DISCHARGE: Check blood press - daily, Check blood sugar, ac/hs, Weigh Yourself Daily TREATMENT/EQUIPMENT ORDERS: ADAPTIVE EQUIPMENT NEEDED: None Physical Therapy For: Evalulation/Treatment Occupational Therapy For: Evaluation/Treatment DISCHARGE MEDICATIONS: Home Meds Reported Medications Omeprazole (OMEPRAZOLE) 40 Mg Capsule.dr, 1 CAP PO DAILY for gerd, #30 CAP 3 Refills 05/01/18 Rifaximin (XIFAXAN) 550 Mg Tablet, 1 TAB PO BID, #28 TAB 02/07/18 Nystatin (NYSTATIN) 100,000 Unit/1 Ml Oral.susp, 5 ML PO QID, #200 ML 07/31/17 Iron,Fum&Ps/Fa/Vit B&C#18/L.ca (FUSION PLUS CAPSULE) 1 Each Capsule, 1 EACH PO, CAP 05/09/17 Albuterol Sulfate (ALBUTEROL SULFATE CONC NEB SOLN) 2.5 Mg/0.5 Ml Vial.neb, 2.5 MG NEB Q6HRS PRN for SHORTNESS OF BREATH, EACH 0 Refills 08/03/15 Lactulose (LACTULOSE) 20 Gm/30 Ml Solution, 20 GM PO TID 08/03/15 Insulin Glargine,Hum.rec.anlog (LANTUS SOLOSTAR) 100 Unit/1 Ml Insuln.pen, 0 SQ HS for DM SSI 06/10/13 Calcium Carbonate/Vitamin D3 (CALCIUM + VITAMIN D TABLET) 1 Each Tablet, 1 EACH PO 06/02/13 Albuterol Sulfate (ALBUTEROL SULFATE HFA INHALER) 8.5 Gm Hfa.aer.ad, 8.5 GM IH 06/02/13 Insulin Aspart (NOVOLOG FLEXPEN) 100 Unit/1 Ml Insuln.pen, 0 SQ TIDAC for DM ssi 06/02/13 Levothyroxine Sodium (SYNTHROID) 25 Mcg Tablet, 300 MCG PO DAILY 06/02/13 Fluticasone Propionate (FLOVENT 110MCG HFA) 12 Gm Aer.w.adap, 12 GM IH 06/02/13 Discontinued Reported Medications Doxycycline Hyclate (DOXYCYCLINE HYCLATE) 100 Mg Capsule, 1 CAP PO BID for antibiotic, #14 CAP 05/01/18 SULTANA HERNANDES III DO Jun 05, 2018 11:37
--- NOTE | 2018-06-05 11:37 | DISCH ---
DISCHARGE WITH HOME HEALTH DISCHARGE INFORMATION: Final Diagnosis: Problems Medical Problems: (1) Anemia Status: Acute (2) Lower GI bleed Status: Acute (3) Thrombocytopenia Status: Acute Condition on Discharge: Stable CODE STATUS: Code Status: Full HOME HEALTH: Face to Face: I certify this patient is under my care and that I, or a nurse practitioner or physician's editorial assistant working with me, had a face to face encounter that meets the physician face to face encounter requirements with this patient on []. Medical Complications: CHF Physical Therapy For: Evalulation/Treatment Occupational Therapy For: Evaluation/Treatment Home Health Aide For: Self-care POST DISCHARGE ORDERS: Activity Instructions for Disc: Activity as tolerated, Bedrest today Weight Bearing Status after Di: As tolerated Bathing Instructions: Shower-keep dressing dry, No Tub Bath until see DIET AFTER DISCHARGE: Cardiac Wound/Incision Care: Keep wound/cast CDI CHECKS AFTER DISCHARGE: Checks after discharge: Check blood press - daily, Check blood sugar, ac/hs, Weigh Yourself Daily TREATMENT/EQUIPMENT ORDERS: Adaptive Equipment Issued: None CERTIFICATION STATEMENT: Certification Statement: Certification Statement: Based on the above finding, I certify that this patient is confined to the home and needs intermittent half-way care, physical therapy and/or speech therapy, or continues to need occupational therapy.~ This patient is under my care, and I have initiated the establishment of the plan of care.~ This patient will be followed by myself or a community physician who will periodically review the plan of care. Home Meds Reported Medications Omeprazole (OMEPRAZOLE) 40 Mg Capsule.dr, 1 CAP PO DAILY for gerd, #30 CAP 3 Refills 05/01/18 Rifaximin (XIFAXAN) 550 Mg Tablet, 1 TAB PO BID, #28 TAB 02/07/18 Nystatin (NYSTATIN) 100,000 Unit/1 Ml Oral.susp, 5 ML PO QID, #200 ML 07/31/17 Iron,Fum&Ps/Fa/Vit B&C#18/L.ca (FUSION PLUS CAPSULE) 1 Each Capsule, 1 EACH PO, CAP 05/09/17 Albuterol Sulfate (ALBUTEROL SULFATE CONC NEB SOLN) 2.5 Mg/0.5 Ml Vial.neb, 2.5 MG NEB Q6HRS PRN for SHORTNESS OF BREATH, EACH 0 Refills 08/03/15 Lactulose (LACTULOSE) 20 Gm/30 Ml Solution, 20 GM PO TID 08/03/15 Insulin Glargine,Hum.rec.anlog (LANTUS SOLOSTAR) 100 Unit/1 Ml Insuln.pen, 0 SQ HS for DM SSI 06/10/13 Calcium Carbonate/Vitamin D3 (CALCIUM + VITAMIN D TABLET) 1 Each Tablet, 1 EACH PO 06/02/13 Albuterol Sulfate (ALBUTEROL SULFATE HFA INHALER) 8.5 Gm Hfa.aer.ad, 8.5 GM IH 06/02/13 Insulin Aspart (NOVOLOG FLEXPEN) 100 Unit/1 Ml Insuln.pen, 0 SQ TIDAC for DM ssi 06/02/13 Levothyroxine Sodium (SYNTHROID) 25 Mcg Tablet, 300 MCG PO DAILY 06/02/13 Fluticasone Propionate (FLOVENT 110MCG HFA) 12 Gm Aer.w.adap, 12 GM IH 06/02/13 Discontinued Reported Medications Doxycycline Hyclate (DOXYCYCLINE HYCLATE) 100 Mg Capsule, 1 CAP PO BID for antibiotic, #14 CAP 05/01/18 SULTANA HERNANDES III DO Jun 05, 2018 11:37
--- NOTE | 2018-06-05 11:42 | PDOC ---
Subjective: Subjective: Wants to DC today. Abd is filling up but doesn't want paracentesis yet. Wants to do as outpt. Son concerned that she might not be able to schedule an outpt appt. Objective: Objective: Discussed in detail w/ RN. Vital Signs: Vital Signs Date Time Temp Pulse Resp B/P (MAP) Pulse Ox O2 Delivery O2 Flow Rate FiO2 06/05/18 08:00 Room Air 06/05/18 07:00 99.5 107 18 108/56 (73) 97 99.5 Labs: Laboratory Tests Test 06/04/18 16:36 06/04/18 21:38 06/05/18 08:01 06/05/18 08:40 Glucose (Fingerstick) 344 mg/dL 196 mg/dL 365 mg/dL White Blood Count 7.5 x10^3/uL Red Blood Count 2.78 x10^6/uL Hemoglobin 8.0 g/dL Hematocrit 24.9 % Mean Corpuscular Volume 90 fL Mean Corpuscular Hemoglobin 29 pg Mean Corpuscular Hemoglobin Concent 32 g/dL Red Cell Distribution Width 16.0 % Platelet Count 57 x10^3/uL Neutrophils (%) (Auto) 77 % Lymphocytes (%) (Auto) 8 % Monocytes (%) (Auto) 11 % Eosinophils (%) (Auto) 3 % Basophils (%) (Auto) 1 % Neutrophils # (Auto) 5.8 x10^3uL Lymphocytes # (Auto) 0.6 x10^3/uL Monocytes # (Auto) 0.8 x10^3/uL Eosinophils # (Auto) 0.2 x10^3/uL Basophils # (Auto) 0.1 x10^3/uL Platelet Estimate Decreased Large Platelets Few Giant Platelets Occ Polychromasia Present Anisocytosis Slight Tear Drop Cells Occ Ovalocytes Few Sodium Level 137 mmol/L Potassium Level 3.9 mmol/L Chloride Level 98 mmol/L Carbon Dioxide Level 30 mmol/L Anion Gap 9 Blood Urea Nitrogen 20 mg/dL Creatinine 3.6 mg/dL Estimated GFR (Cockcroft-Gault) 12.9 Glucose Level 392 mg/dL Calcium Level 8.4 mg/dL PE: GEN: in chair - yelling at her son LUNGS: room air ABD: distended - I did not palpate as she has asked me before not to touch her NEURO/PSYCH: A & O �3 A/P: 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 Outpt HD plans in process. She declines another paracentesis while inpt. DC per primary on lactulose and Xifaxan. JENNIE ABRAMS Jun 05, 2018 11:42
[2018-06-05] MEDS ORDERED: INSULIN LISPRO 300 UNITS/3 ML INSULN.PEN. SQ ONE (12:30)
--- NOTE | 2018-06-05 12:31 | PDOC ---
Renal-Progress Notes Subjective Notes Notes NO NEW COMPLAINTS History of Present Illness Hx of present illness STABLE Vitals Vitals Vital Signs Date Time Temp Pulse Resp B/P (MAP) Pulse Ox O2 Delivery O2 Flow Rate FiO2 06/05/18 11:00 99.0 103 18 91/40 (57) 98 Room Air 99.0 Weight Weight [ ] I.O. Intake and Output Intake and Output 06/05/18 06:59 Intake Total 600 ml Balance 600 ml Intake Oral 600 ml Labs Labs Laboratory Tests Test 06/04/18 16:36 06/04/18 21:38 06/05/18 08:01 06/05/18 08:40 Glucose (Fingerstick) 344 mg/dL (70-99) 196 mg/dL (70-99) 365 mg/dL (70-99) White Blood Count 7.5 x10^3/uL (4.0-11.0) Red Blood Count 2.78 x10^6/uL (3.50-5.40) Hemoglobin 8.0 g/dL (12.0-15.5) Hematocrit 24.9 % (36.0-47.0) Mean Corpuscular Volume 90 fL (79-100) Mean Corpuscular Hemoglobin 29 pg (25-35) Mean Corpuscular Hemoglobin Concent 32 g/dL (31-37) Red Cell Distribution Width 16.0 % (11.5-14.5) Platelet Count 57 x10^3/uL (140-400) Neutrophils (%) (Auto) 77 % (31-73) Lymphocytes (%) (Auto) 8 % (24-48) Monocytes (%) (Auto) 11 % (0-9) Eosinophils (%) (Auto) 3 % (0-3) Basophils (%) (Auto) 1 % (0-3) Neutrophils # (Auto) 5.8 x10^3uL (1.8-7.7) Lymphocytes # (Auto) 0.6 x10^3/uL (1.0-4.8) Monocytes # (Auto) 0.8 x10^3/uL (0.0-1.1) Eosinophils # (Auto) 0.2 x10^3/uL (0.0-0.7) Basophils # (Auto) 0.1 x10^3/uL (0.0-0.2) Platelet Estimate Decreased (ADEQUATE) Large Platelets Few Giant Platelets Occ Polychromasia Present Anisocytosis Slight Tear Drop Cells Occ Ovalocytes Few Sodium Level 137 mmol/L (136-145) Potassium Level 3.9 mmol/L (3.5-5.1) Chloride Level 98 mmol/L (98-107) Carbon Dioxide Level 30 mmol/L (21-32) Anion Gap 9 (6-14) Blood Urea Nitrogen 20 mg/dL (7-20) Creatinine 3.6 mg/dL (0.6-1.0) Estimated GFR (Cockcroft-Gault) 12.9 Glucose Level 392 mg/dL (70-99) Calcium Level 8.4 mg/dL (8.5-10.1) Test 06/05/18 11:46 Glucose (Fingerstick) 404 mg/dL (70-99) Review of Systems Constitutional: yes: alert, oriented Ears/Nose/Throat: Yes: no symptom reported Eyes: Yes: no symptom reported Pulmonary: Yes no symptom reported Cardiovascular: Yes no symptom reported Gastrointestional: Yes: constipation Genitourinary: Yes: no symptom reported Musculoskeletal: Yes: no symptom reported Skin: Yes no symptom reported Psychiatric/Neurological: Yes: no symptom reported Endocrine: Yes: no symptom reported Physical Exam General Appearance: no apparent distress Skin: warm Heart: S1S2, no thrills Abdomen: soft, bowel sounds present Genitourinary: bladder flat Extremities: pulses present Neurology: alert, confused Musculoskeletal: Osteoarthritis Assessment Assessment IMP [id number] CKD STAGE 3 TO 4 ESLD AENMIA DM II S/P TUNNELED HD CATHETER PLAN OP HD HAS BEEN SET UP PT CAN BE D/[facility] HD TOMORROW [facility] HAS DENIED TRANSFER HUNG BREWSTER MD Jun 05, 2018 12:31
--- NOTE | 2018-06-05 12:32 | NUR ---
SS following up with discharge planning. Rylan contacted SS and reported that pt has a scheduled dialysis chart time Saturday, Saturday, and Saturday at 1630 with a start date of 06/06/2018 at [facility]. Rylan reported that pt will need to come to the facility at 1600 for her first chair time on 06/06/2018. Pt's RN notified.
--- NOTE | 2018-06-05 12:47 | NUR ---
Entered patients room to give insulin and explained that the doctor ordered extra dose of 20 units due to blood glucose being 404. Patients son stated that the patient told him that we have not been giving her insulin. This RN explained that we have given insulin regularly with each meal due to elevated blood sugars each time they are checked. Patient then stated that she would normally take more insulin at home. This RN again explained that the patient has been ordering and eating an extreme amount of food which contributes to the elevated blood sugars. Patient also had chocolate covered pretzels and chocolate mints at bedside that she stated was brought in by her son and daughter. I educated that foods high in sugar also add to elevated blood sugars. As I was exiting the room, I found patients telemetry box fold up in her gown sitting in her chair. The son stated the patient wanted it off because she is ready to go home.
[2018-06-05] MEDS ORDERED: HEPARIN PF 500 UNIT/5 ML DISP.SYRIN. IV ONE (13:00)
--- NOTE | 2018-06-05 14:31 | NUR ---
Discharge Note: YANIRA BRAVO [address] Discharge instructions and discharge home medications reviewed with Patient and a copy given. All questions have been answered and understanding verbalized. The following instructions and handouts were given: dialysis chair schedule for outpatient, discharge med list, education on diet options Discontinued lines and drains: slava cath after flusing it with 500 units of heparin, bandaid intact. Patient discharged to [facility] accompanied by son and daughter via wheelchair
[2018-10-01] MEDS ORDERED: LEVO500T59 PO (09:59)
[2018-10-14] MEDS ORDERED: MIDO5TAB PO (16:23)
[2018-10-21] MEDS ORDERED: BENZ-8 PO (11:35)
[2018-10-21] MEDS ORDERED: CLOT10TR MM (11:35)
[2018-10-21] MEDS ORDERED: PHEN57OI RC (11:35)
[2018-10-21] MEDS ORDERED: NYST15OI TP (11:35)
[2018-10-21] MEDS ORDERED: HYDR-2761 PO (11:35)
[2018-10-21] MEDS ORDERED: ALBU2.5V8 NEB (11:35)
[2018-10-21] MEDS ORDERED: PANT40TA77 PO (11:35)
== END 2018-06-05 14:34 | disposition home health service (06) | DRG 673 ==
LOC: ER 02:40 → 2 SOUTH 04:30
PROVIDERS: ADMIT Internal Medicine; ATTEND Internal Medicine
PROC: 30233R1 Transfusion of Nonautologous Platelets into Peripheral Vein, Percutaneous Approach (ICD-10-PCS; principal; 2018-05-30)
PROC: 30233N1 Transfusion of Nonautologous Red Blood Cells into Peripheral Vein, Percutaneous Approach (ICD-10-PCS; 2018-05-30)
PROC: 0W9G3ZZ Drainage of Peritoneal Cavity, Percutaneous Approach (ICD-10-PCS; 2018-05-30)
PROC: 02H633Z Insertion of Infusion Device into Right Atrium, Percutaneous Approach (ICD-10-PCS; 2018-05-30)
PROC: B244ZZZ Ultrasonography of Right Heart (ICD-10-PCS; 2018-05-30)
PROC: 5A1D70Z Performance of Urinary Filtration, Intermittent, Less than 6 Hours Per Day (ICD-10-PCS; 2018-05-31)
PROC: 5A1D70Z Performance of Urinary Filtration, Intermittent, Less than 6 Hours Per Day (ICD-10-PCS; 2018-06-02)
PROC: 0JH63XZ Insertion of Tunneled Vascular Access Device into Chest Subcutaneous Tissue and Fascia, Percutaneous Approach (ICD-10-PCS; 2018-06-04)
PROC: 02H633Z Insertion of Infusion Device into Right Atrium, Percutaneous Approach (ICD-10-PCS; 2018-06-04)
PROC: B2141ZZ Fluoroscopy of Right Heart using Low Osmolar Contrast (ICD-10-PCS; 2018-06-04)
PROC: 5A1D70Z Performance of Urinary Filtration, Intermittent, Less than 6 Hours Per Day (ICD-10-PCS; 2018-06-04)
DX: N17.0 Acute kidney failure with tubular necrosis (principal); K76.7 Hepatorenal syndrome; G92 Toxic encephalopathy; I81 Portal vein thrombosis; K92.2 Gastrointestinal hemorrhage, unspecified; I12.0 Hypertensive chronic kidney disease with stage 5 chronic kidney disease or end stage renal disease; R18.8 Other ascites; I85.10 Secondary esophageal varices without bleeding; N18.6 End stage renal disease; K75.81 Nonalcoholic steatohepatitis (NASH); D64.9 Anemia, unspecified; D69.59 Other secondary thrombocytopenia; E03.9 Hypothyroidism, unspecified; E11.22 Type 2 diabetes mellitus with diabetic chronic kidney disease; E11.65 Type 2 diabetes mellitus with hyperglycemia; E78.5 Hyperlipidemia, unspecified; F17.210 Nicotine dependence, cigarettes, uncomplicated; F32.9 Major depressive disorder, single episode, unspecified; G89.29 Other chronic pain; H91.91 Unspecified hearing loss, right ear; J44.9 Chronic obstructive pulmonary disease, unspecified; K21.9 Gastro-esophageal reflux disease without esophagitis; K72.90 Hepatic failure, unspecified without coma; K74.60 Unspecified cirrhosis of liver; R62.7 Adult failure to thrive; Z51.5 Encounter for palliative care; Z88.6 Allergy status to analgesic agent; Z88.1 Allergy status to other antibiotic agents; Z88.2 Allergy status to sulfonamides; Z88.8 Allergy status to other drugs, medicaments and biological substances; Z86.010 Personal history of colon polyps; Z90.710 Acquired absence of both cervix and uterus; Z91.19 Patient's noncompliance with other medical treatment and regimen; Z99.2 Dependence on renal dialysis; F41.9 Anxiety disorder, unspecified; G62.9 Polyneuropathy, unspecified; L40.9 Psoriasis, unspecified; M19.90 Unspecified osteoarthritis, unspecified site; Z87.440 Personal history of urinary (tract) infections; Z90.49 Acquired absence of other specified parts of digestive tract; Z79.899 Other long term (current) drug therapy
CPT/HCPCS: 36415; 36556; 36558; 36581; 49083; 71045; 76937; 77001; 80048; 80053; 82140; 82962; 83735; 84132; 85007; 85014; 85018; 85025; 85027; 85610; 85730; 86704; 86706; 86850; 86870; 86900; 86901; 86902; 86922; 87340; 96374; 96375; 99152; A4215; C1729; C1750; C1769; C1892; C1894; J1644; J1815; J2060; J2250; J2405; J3010; J3370; J3475; J3480; J3490; P9016; P9035; P9046; Q0162; 99285-25; G0378

== ENCOUNTER 2018-06-10 08:41 | Outpatient (CLI) | payer OTHER ==
[2018-06-10] VITALS (7 sets, daily range): BP systolic 77–120; BP diastolic 24–70
[~2018-06-10] VITALS: Ht 162.6 cm; Wt 92.1 kg
[~2018-06-10 08:41] MED LIST changes: -OMEP20CA10 PO; +OMEP20CA9 PO
[2018-06-10 09:31] LABS: BASO # 0.1 x10^3/uL (0.0-0.2); BASO % 1 % (0-3); EOS # 0.2 x10^3/uL (0.0-0.7); EOS % 2 % (0-3); HEMATOCRIT 22.4 % (36.0-47.0); HEMOGLOBIN 7.4 g/dL (12.0-15.5); LYMPH # 0.5 x10^3/uL (1.0-4.8); LYMPH % 6 % (24-48); MEAN CORPUSCULAR HEMOGLOBIN 29 pg (25-35); MEAN CORPUSCULAR HGB CONC 33 g/dL (31-37); MEAN CORPUSCULAR VOLUME 87 fL (79-100); MONO # 1.1 x10^3/uL (0.0-1.1); MONO % 12 % (0-9); NEUT # 7.3 x10^3uL (1.8-7.7); NEUT % 80 % (31-73); PLATELET COUNT 105 x10^3/uL (140-400); RED BLOOD COUNT 2.56 x10^6/uL (3.50-5.40); RED CELL DISTRIBUTION WIDTH 16.3 % (11.5-14.5); WHITE BLOOD COUNT 9.2 x10^3/uL (4.0-11.0)
[2018-06-10 09:44] LABS: PROTHROMBIN TIME PATIENT 14.8 SEC (11.7-14.0)
[2018-06-10] MEDS ORDERED: CYCL5TAB PO (09:55)
[2018-06-10] MEDS ORDERED: LIDOCAINE WITH 8.4% SOD BICARB 3 ML DISP.SYRIN. ONE (11:21)
[2018-06-10] MEDS ORDERED: ALBUMIN HUMAN 25% 300 ML IV ONE (12:08)
[2018-06-10] MEDS ORDERED: ALBUMIN HUMAN 25% 100 ML IV ONE ×3 (12:15)
[2018-06-10] MEDS ORDERED: LIDOCAINE WITH 8.4% SOD BICARB 3 ML DISP.SYRIN. INJ ONE (12:30)
--- NOTE | 2018-06-10 13:23 | RAD ---
Procedure: Ultrasound guided paracentesis Clinical Indication: 62-year-old with recurrent abdominal ascites Sedation: Local anesthesia only Antibiotics: None Fluoro Time: None Contrast: Not applicable Sterility: The procedure was performed in its entirety using appropriate elements of sterile technique. Consent: The procedure was explained in its entirety to the patient or the patients designated charter representative by a member of the treatment team, including a discussion of the risks, benefits and commonly accepted alternatives to the procedure, as well as the expected consequences of no therapy whatsoever. Discussion of the risks included, but was not limited to, those that are most frequent and those that are rare but possibly severe or life-threatening, as well as the possibility of unforeseen complications. Technique and Findings: Following informed consent, the patient was prepped and draped in the usual sterile fashion. Ultrasound interrogation of the abdomen revealed abdominal ascites. A hard copy ultrasound image was recorded. 1% Lidocaine was used to achieve local anesthesia over the area of interest, and a 6 Cypriot Fshh-I-Btwcnimz catheter was advanced into the peritoneal cavity under ultrasound guidance. 12,300 cc of thin yellow ascites was then withdrawn. The catheter was removed and hemostasis was achieved with manual compression. Complications: No immediate Impression: 1. Ultrasound-guided paracentesis as described
--- NOTE | 2018-06-10 13:24 | NUR ---
Discharge Note: YANIRA BRAVO Discharge instructions and discharge home medications reviewed with Patient and a copy given. All questions have been answered and understanding verbalized. The following instructions and handouts were given: education was given to patient regarding a paracentesis. Pt was also instructed to take medications as directed. Pt verbalized understanding. Discontinued lines and drains: port was de-accessed with no complications. Needle intact. Patient discharged to home with self care via wheelchair. Pt was accompanied by [facility] [place].
== END 2018-06-10 13:29 | disposition home or self-care (01) ==
LOC: INTRAD 08:41
PROVIDERS: ATTEND Internal Medicine Gastroenterology
DX: K74.60 Unspecified cirrhosis of liver (principal); Z88.2 Allergy status to sulfonamides; Z88.1 Allergy status to other antibiotic agents; Z88.5 Allergy status to narcotic agent; Z88.6 Allergy status to analgesic agent; Z88.8 Allergy status to other drugs, medicaments and biological substances
CPT/HCPCS: 36415; 49083; 85025; 85610; 85730; A4215; C1729; C1892; C1894; P9046

== ENCOUNTER 2018-06-19 07:33 | Outpatient (CLI) | payer OTHER ==
[2018-06-19] VITALS (7 sets, daily range): BP systolic 93–100; BP diastolic 33–53
[~2018-06-19] VITALS: Ht 162.6 cm; Wt 92.5 kg
[~2018-06-19 07:33] MED LIST changes: +OMEP20CA10 PO; -OMEP20CA9 PO
[2018-06-19] MEDS ORDERED: LIDOCAINE 1%/EPI 1:100,000 20 ML VIAL. ONE (08:01)
[2018-06-19] MEDS ORDERED: ALBUMIN HUMAN 25% 100 ML IV ONE ×6 (08:52→10:45)
[2018-06-19] MEDS ORDERED: MIDAZOLAM HCL/PF 2 MG/2 ML VIAL. ONE (08:52)
[2018-06-19] MEDS ORDERED: fentaNYL PF VIAL 100 MCG/2 ML VIAL ONE (08:52)
--- NOTE | 2018-06-19 09:01 | RAD ---
EXAM: Chest, single view. HISTORY: Dialysis catheter placement. COMPARISON: 06/03/2018 FINDINGS: A frontal view of the chest obtained. There is a left hemodialysis catheter with the tip overlying the superior cavoatrial junction. There is a right port catheter also with the tip overlying the superior cavoatrial junction. There is no pneumothorax. There is stable diffuse increased interstitial opacity likely due to congestion. There is suspected superimposed bilateral lower lobe atelectasis. There is a stable prominent cardiac silhouette. IMPRESSION: 1. Left hemodialysis catheter and right chest wall port catheter with tips overlying the expected location of the superior cavoatrial junction. 2. Stable suspected pulmonary congestion with superimposed bilateral lower lobe atelectasis. Electronically signed by: Chanell Colmenares MD (06/19/2018 8:58 AM) [facility]
[2018-06-19] MEDS ORDERED: IV NORMAL SALINE 250ML 250 ML IV ONE (09:15)
[2018-06-19] MEDS ORDERED: LIDOCAINE 1%/EPI 1:100,000 20 ML VIAL. IJ ONE (09:15)
[2018-06-19] MEDS ORDERED: MIDAZOLAM HCL/PF 2 MG/2 ML VIAL. IV ONE (09:15)
[2018-06-19] MEDS ORDERED: fentaNYL PF VIAL 100 MCG/2 ML VIAL IV ONE (09:15)
--- NOTE | 2018-06-19 09:39 | NUR ---
Patient came in outpatient for left chest tunnelled dialysis catheter check and paracentesis. Paracentesis removed 25005ew of fluid. Left chest tunnelled dialysis catheter taken out and new tunnelled dialysis catheter placed back in without difficulty. Patient receiving Albumin IV per protocol for paracentesis. Will monitor continue to monitor.
[2018-06-19] MEDS ORDERED: HEPARIN PF 500 UNIT/5 ML DISP.SYRIN. IV ONE ×2 (10:59→11:00)
--- NOTE | 2018-06-19 11:12 | RAD ---
Ultrasound-guided paracentesis 06/19/2018 11:09 AM Procedure: The risks and benefits of the procedure were discussed the patient. Informed consent was obtained. A timeout procedure was performed. Sonographic evaluation of the abdomen was performed demonstrating ascites . The right lower quadrant was prepped and draped using maximum sterile barrier technique. 1% lidocaine without epinephrine was administered for local anesthesia. Real-time ultrasonographic guidance was used in passing a 5 Indian Yueh catheter into the fluid collection. 11.2 L of serous ascites was removed. The catheter was removed and pressure held to achieve hemostasis. A sterile dressing was applied. Impression: Successful ultrasound-guided paracentesis
--- NOTE | 2018-06-19 11:20 | NUR ---
Discharge Pt alert and oriented x 3, able to tolerate PO, ambulatory with steady gait, no new c/o pain. DC instruction provided and reviewed, questions answered. Dressing dry and intact to chest and abdomen. Pt escorted out per wheelchair, family to drive. BALTAZAR NEWELL Addendum: 06/19/18 at 1131 by GREY DUBOIS RN Amended: Links added.
--- NOTE | 2018-06-23 11:06 | RAD ---
Replacement of left internal jugular tunneled dialysis catheter 06/19/2018 Indication: Nonfunctioning catheter Discussion: The risks and benefits of the procedure were discussed the patient. Informed consent was obtained. Timeout procedure was performed. The left upper chest including the pre-existing catheter were prepped and draped using sterile barrier technique. The catheter was removed over a guidewire. It was replaced the new 23 cm tip to cuff palindrome tunneled dialysis catheter. The catheter was found to flush and aspirate normally. Catheter tip is in the mid right atrium with the patient in the supine position.. Sterile dressings were applied. The procedures performed conscious sedation including continuous cardiopulmonary monitoring via dedicated sedation nurse. [id number] sedation time: 20 minutes. Total fluoroscopy time: 2.8 MIN Dose area product: 6 Gycm2 Impression: of left internal jugular tunnel dialysis catheter as described
== END 2018-06-19 11:25 | disposition home or self-care (01) ==
LOC: INTRAD 07:33
PROVIDERS: ATTEND Internal Medicine Gastroenterology
DX: T82.49XA Other complication of vascular dialysis catheter, initial encounter (principal); K74.60 Unspecified cirrhosis of liver; J98.11 Atelectasis; Z88.2 Allergy status to sulfonamides; Z88.1 Allergy status to other antibiotic agents; Z88.5 Allergy status to narcotic agent; Z88.6 Allergy status to analgesic agent; Z88.8 Allergy status to other drugs, medicaments and biological substances; Y83.8 Other surgical procedures as the cause of abnormal reaction of the patient, or of later complication, without mention of misadventure at the time of the procedure
CPT/HCPCS: 36581; 49083; 71045; 77001; 99152; C1729; C1750; C1769; C1894; J2250; J3010; J3490; J7050; P9046; 99153; J7030

== ENCOUNTER 2018-06-25 10:22 | Outpatient (CLI) | payer OTHER ==
[~2018-06-25] VITALS: Ht 162.6 cm; Wt 90.7 kg
[2018-06-25] VITALS (7 sets, daily range): BP systolic 99–119; BP diastolic 45–69
[2018-06-25] MEDS ORDERED: MIDO5TAB PO (10:45)
[2018-06-25] MEDS ORDERED: AMOX500T PO (10:45)
[2018-06-25] MEDS ORDERED: LIDOCAINE WITH 8.4% SOD BICARB 3 ML DISP.SYRIN. ONE (11:57)
[2018-06-25] MEDS ORDERED: ALBUMIN HUMAN 25% 100 ML IV ONE ×6 (12:15→13:03)
[2018-06-25] MEDS ORDERED: LIDOCAINE WITH 8.4% SOD BICARB 3 ML DISP.SYRIN. INJ ONE (12:15)
[2018-06-25] MEDS ORDERED: HEPARIN PF 500 UNIT/5 ML DISP.SYRIN. IV ONE ×2 (13:15→13:50)
--- NOTE | 2018-06-25 13:29 | RAD ---
Ultrasound-guided paracentesis 03/19/2018 Procedure: The risks and benefits of the procedure were discussed the patient. Informed consent was obtained. A timeout procedure was performed. Sonographic evaluation of the abdomen was performed demonstrating ascites . The right lower quadrant was prepped and draped using maximum sterile barrier technique. 1% lidocaine without epinephrine was administered for local anesthesia. Real-time ultrasonographic guidance was used in passing a 5 Nepalese [employer]eh catheter into the fluid collection. This was exchanged over a guidewire for an 8 Nepalese multiside hole catheter. 14.6 L of serous ascites was removed. The catheter was removed and pressure held to achieve hemostasis. A sterile dressing was applied. Impression: Successful ultrasound-guided paracentesis
[2018-06-25] MEDS ORDERED: ACETAMINOPHEN 325 MG TABLET. PO ONE ×2 (13:39→13:45)
--- NOTE | 2018-06-25 14:08 | NUR ---
Discharge Note: YANIRA RBAVO Discharge instructions and discharge home medications reviewed with Patient and a copy given. All questions have been answered and understanding verbalized. The following instructions and handouts were given: paracentesis Discontinued lines and drains: Port A Cath intact. Patient discharged to Home or Self Care withFamily Membervia Wheelchair
== END 2018-06-25 14:16 | disposition home or self-care (01) ==
LOC: INTRAD 10:22
PROVIDERS: ATTEND Internal Medicine Gastroenterology
DX: K74.60 Unspecified cirrhosis of liver (principal); Z88.2 Allergy status to sulfonamides; Z88.1 Allergy status to other antibiotic agents; Z88.5 Allergy status to narcotic agent; Z88.8 Allergy status to other drugs, medicaments and biological substances; Z88.6 Allergy status to analgesic agent
CPT/HCPCS: 49083; C1729; P9046

== ENCOUNTER 2018-07-03 08:51 | Outpatient (CLI) | payer OTHER ==
[2018-07-03] VITALS (11 sets, daily range): BP systolic 80–108; BP diastolic 29–67
[~2018-07-03] VITALS: Ht 162.6 cm; Wt 90.7 kg
[~2018-07-03 08:51] MED LIST changes: +AMOX500T PO; +MIDO5TAB PO
[2018-07-03] MEDS ORDERED: FOLI1TAB30 PO (09:13)
[2018-07-03] MEDS ORDERED: CALC667T4 PO (09:13)
[2018-07-03] MEDS ORDERED: LIDOCAINE WITH 8.4% SOD BICARB 3 ML DISP.SYRIN. ONE (09:17)
[2018-07-03] MEDS ORDERED: ALBUMIN HUMAN 25% 200 ML IV ONE (09:35)
[2018-07-03] MEDS ORDERED: ALBUMIN HUMAN 25% 100 ML IV ONE ×6 (09:45→11:00)
[2018-07-03] MEDS ORDERED: LIDOCAINE WITH 8.4% SOD BICARB 3 ML DISP.SYRIN. IJ ONE (09:45)
--- NOTE | 2018-07-03 12:02 | NUR ---
Discharge Note: Discharge instructions and discharge home medications reviewed with Patient and a copy given. All questions have been answered and understanding verbalized. Educational handout on post paracentesis care given to patient. Discontinued slava cath line. Patient discharged to home with self care accompanied by son.
--- NOTE | 2018-07-03 13:14 | RAD ---
Procedure: Ultrasound guided paracentesis Clinical Indication: 62-year-old with refractory abdominal ascites Sedation: Local anesthesia only Antibiotics: None Fluoro Time: None Contrast: Not applicable Sterility: The procedure was performed in its entirety using appropriate elements of sterile technique. Consent: The procedure was explained in its entirety to the patient or the patients designated sales representative canvas products by a member of the treatment team, including a discussion of the risks, benefits and commonly accepted alternatives to the procedure, as well as the expected consequences of no therapy whatsoever. Discussion of the risks included, but was not limited to, those that are most frequent and those that are rare but possibly severe or life-threatening, as well as the possibility of unforeseen complications. Technique and Findings: Following informed consent, the patient was prepped and draped in the usual sterile fashion. Ultrasound interrogation of the abdomen revealed abdominal ascites. A hard copy ultrasound image was recorded. 1% Lidocaine was used to achieve local anesthesia over the area of interest, and a 6 Uzbek Auae-J-Lifnlswh catheter was advanced into the peritoneal cavity under ultrasound guidance. 12.4 L of thin yellow ascites was then withdrawn. The catheter was removed and hemostasis was achieved with manual compression. Complications: No immediate Impression: 1. Ultrasound-guided paracentesis as described
== END 2018-07-03 11:30 | disposition home or self-care (01) ==
LOC: INTRAD 08:51
PROVIDERS: ATTEND Internal Medicine Gastroenterology
DX: K74.60 Unspecified cirrhosis of liver (principal); Z88.2 Allergy status to sulfonamides; Z88.5 Allergy status to narcotic agent; Z88.1 Allergy status to other antibiotic agents; Z88.6 Allergy status to analgesic agent; Z88.8 Allergy status to other drugs, medicaments and biological substances
CPT/HCPCS: 49083; A4215; C1729; C1892; C1894; P9046

== ENCOUNTER 2018-07-10 08:21 | Outpatient (CLI) | payer OTHER ==
[~2018-07-10] VITALS: Ht 162.6 cm; Wt 78.5 kg
[2018-07-10] VITALS (8 sets, daily range): BP systolic 82–139; BP diastolic 29–74
[~2018-07-10 08:21] MED LIST changes: +CALC667T4 PO; +FOLI1TAB30 PO
[2018-07-10 09:30] LABS: BASO % 0 % (0-3); EOS # 0.1 x10^3/uL (0.0-0.7); EOS % 1 % (0-3); HEMATOCRIT 21.8 % (36.0-47.0); HEMOGLOBIN 7.2 g/dL (12.0-15.5); LYMPH # 0.6 x10^3/uL (1.0-4.8); LYMPH % 7 % (24-48); MEAN CORPUSCULAR HEMOGLOBIN 29 pg (25-35); MEAN CORPUSCULAR HGB CONC 33 g/dL (31-37); MEAN CORPUSCULAR VOLUME 88 fL (79-100); MONO % 13 % (0-9); NEUT # 6.2 x10^3uL (1.8-7.7); NEUT % 78 % (31-73); PLATELET COUNT 135 x10^3/uL (140-400); RED BLOOD COUNT 2.48 x10^6/uL (3.50-5.40); RED CELL DISTRIBUTION WIDTH 18.7 % (11.5-14.5); WHITE BLOOD COUNT 7.9 x10^3/uL (4.0-11.0)
[2018-07-10] MEDS ORDERED: LIDOCAINE WITH 8.4% SOD BICARB 3 ML DISP.SYRIN. ONE (09:43)
[2018-07-10 09:49] LABS: PROTHROMBIN TIME PATIENT 15.7 SEC (11.7-14.0)
[2018-07-10] MEDS ORDERED: ALBUMIN HUMAN 25% 300 ML IV ONE (10:14)
[2018-07-10] MEDS ORDERED: LIDOCAINE WITH 8.4% SOD BICARB 3 ML DISP.SYRIN. INJ ONE (10:30)
[2018-07-10] MEDS ORDERED: ALBUMIN HUMAN 25% 100 ML IV ONE ×3 (10:30)
--- NOTE | 2018-07-10 11:30 | NUR ---
pt discharged to home with family
--- NOTE | 2018-07-11 11:24 | RAD ---
Ultrasound-guided paracentesis 07/11/2018 11:20 AM Procedure: The risks and benefits of the procedure were discussed the patient. Informed consent was obtained. A timeout procedure was performed. Sonographic evaluation of the abdomen was performed demonstrating ascites . The right lower quadrant was prepped and draped using maximum sterile barrier technique. 1% lidocaine without epinephrine was administered for local anesthesia. Real-time ultrasonographic guidance was used in passing a 5 Arabic Yueh catheter into the fluid collection. This is exchanged over a wire for an 8 Arabic multiside hole catheter. 12 L of serous ascites was removed. The catheter was removed and pressure held to achieve hemostasis. A sterile dressing was applied. Impression: Successful ultrasound-guided paracentesis
== END 2018-07-10 12:33 | disposition home or self-care (01) ==
LOC: INTRAD 08:21
PROVIDERS: ATTEND Internal Medicine Gastroenterology
DX: K74.60 Unspecified cirrhosis of liver (principal); Z88.2 Allergy status to sulfonamides; Z88.1 Allergy status to other antibiotic agents; Z88.5 Allergy status to narcotic agent; Z88.6 Allergy status to analgesic agent; Z88.8 Allergy status to other drugs, medicaments and biological substances
CPT/HCPCS: 36415; 49083; 85025; 85610; C1729; C1894; P9046

== ENCOUNTER 2018-07-17 07:31 | Outpatient (CLI) | payer OTHER ==
[~2018-07-17] VITALS: Ht 162.6 cm; Wt 90.7 kg
[2018-07-17 08:04] VITALS: BP 85/38
[2018-07-17] MEDS ORDERED: LIDOCAINE WITH 8.4% SOD BICARB 3 ML DISP.SYRIN. ONE (08:16)
[2018-07-17] MEDS ORDERED: ALBUMIN HUMAN 25% 300 ML IV ONE (08:35)
[2018-07-17 08:45] VITALS: BP 96/56
[2018-07-17] MEDS ORDERED: ALBUMIN HUMAN 25% 100 ML IV ONE ×3 (08:45)
[2018-07-17 09:10] VITALS: BP 96/46
[2018-07-17 09:15] VITALS: BP 97/35
[2018-07-17] MEDS ORDERED: LIDOCAINE WITH 8.4% SOD BICARB 3 ML DISP.SYRIN. INJ ONE (09:15)
--- NOTE | 2018-07-17 09:16 | NUR ---
Pt to IR for paracentesis, tolerated well, VSS, clean dry dressing to R Lower abdomen. Albumin hung per MD orders. BALTAZAR RN
[2018-07-17 09:45] VITALS: BP 96/44
--- NOTE | 2018-07-17 10:11 | NUR ---
Discharge Note: YANIRA BRAVO Discharge instructions and discharge home medications reviewed with Patient and a copy given. All questions have been answered and understanding verbalized. The following instructions and handouts were given: education was given to patient regarding continuing medications. Pt and family verbalized understanding. Discontinued lines and drains: port was deaccessed with no complications. Catheter tip was intact. Patient discharged to home with self care via wheelchair. Pt was accompanied by son.
--- NOTE | 2018-07-17 11:46 | RAD ---
Ultrasound-guided paracentesis 07/17/2018 11:43 AM Procedure: The risks and benefits of the procedure were discussed the patient. Informed consent was obtained. A timeout procedure was performed. Sonographic evaluation of the abdomen was performed demonstrating ascites . The right lower quadrant was prepped and draped using maximum sterile barrier technique. 1% lidocaine without epinephrine was administered for local anesthesia. Real-time ultrasonographic guidance was used in passing a 5 Greenlandic [employer] catheter into the fluid collection. This was exchanged over a guidewire for an 8 Greenlandic drain. 11 L of serous ascites was removed. The catheter was removed and pressure held to achieve hemostasis. A sterile dressing was applied. Impression: Successful ultrasound-guided paracentesis
[2018-10-01] MEDS ORDERED: LEVO500T59 PO (09:59)
== END 2018-07-17 10:25 | disposition home or self-care (01) ==
LOC: INTRAD 07:31
PROVIDERS: ATTEND Internal Medicine Gastroenterology
DX: K74.60 Unspecified cirrhosis of liver (principal); R18.8 Other ascites; Z88.2 Allergy status to sulfonamides; Z88.5 Allergy status to narcotic agent; Z88.1 Allergy status to other antibiotic agents; Z88.8 Allergy status to other drugs, medicaments and biological substances; Z88.6 Allergy status to analgesic agent
CPT/HCPCS: 49083; A4215; C1729; C1894; P9046

== ENCOUNTER 2018-07-23 10:02 | Outpatient (CLI) | payer OTHER ==
[~2018-07-23] VITALS: Ht 165.1 cm; Wt 90.7 kg
[2018-07-23 10:47] VITALS: BP 109/45
[2018-07-23] MEDS ORDERED: LIDOCAINE 1%/EPI 1:100,000 20 ML VIAL. ONE (13:29)
[2018-07-23] MEDS ORDERED: fentaNYL PF VIAL 100 MCG/2 ML VIAL ONE (13:29)
[2018-07-23] MEDS ORDERED: MIDAZOLAM HCL/PF 2 MG/2 ML VIAL. ONE (13:29)
[2018-07-23] MEDS ORDERED: IOHEXOL 240 MG/ML 50ML VIAL. ONE (13:57)
[2018-07-23] MEDS ORDERED: MIDAZOLAM HCL/PF 2 MG/2 ML VIAL. IV ONE (14:00)
[2018-07-23] MEDS ORDERED: ceFAZolin 2GM PREMIX 2 GM/50 ML BAG IV ONE (14:00)
[2018-07-23] MEDS ORDERED: fentaNYL PF VIAL 100 MCG/2 ML VIAL IV ONE (14:00)
[2018-07-23] MEDS ORDERED: LIDOCAINE 1%/EPI 1:100,000 20 ML VIAL. IJ ONE (14:00)
[2018-07-23] MEDS ORDERED: HEPARIN PF 500 UNIT/5 ML DISP.SYRIN. IV ONE ×2 (14:01→15:15)
[2018-07-23] MEDS ORDERED: HEPARIN for IV BOLUS 10,000 UNIT/10 ML VIAL. ONE (14:01)
[2018-07-23] MEDS ORDERED: HEPARIN for IV BOLUS 10,000 UNIT/10 ML VIAL. INT CAT ONE (14:15)
[2018-07-23 14:19] VITALS: BP 109/44
[2018-07-23 14:30] VITALS: BP 109/49
[2018-07-23] MEDS ORDERED: IOHEXOL 240 MG/ML 50ML VIAL. IV ONE (14:30)
[2018-07-23] MEDS ORDERED: CONTRAST GIVEN. MC PRN (14:30)
[2018-07-23 14:45] VITALS: BP 113/42
--- NOTE | 2018-07-23 14:58 | PDOC ---
Provider Note Provider Note IR NOTE New left IJ tunneled dialysis catheter is OK for immediate use. ALFREDO ORTEGA MD Jul 23, 2018 14:58
[2018-07-23 15:00] VITALS: BP 103/61
--- NOTE | 2018-07-23 15:21 | NUR ---
pt A&O x 3. tolerating po well. de-accessed rt chest port per protocol. no bleeding noted around new HD cath in left chest or port . vss. d/c instructions given. stressed the need to attend dialysis today or tomorrow if they were able to change the schedule for her. out to vehicle per w/c where family is to take her home.
--- NOTE | 2018-07-25 13:13 | RAD ---
Replacement of left internal jugular tunneled dialysis catheter 07/25/2018 Indication: Nonfunctioning catheter Discussion: The risks and benefits of the procedure were discussed the patient. Informed consent was obtained. Timeout procedure was performed. The left upper chest including the pre-existing catheter were prepped and draped using sterile barrier technique. The catheter was removed over a guidewire. It was replaced the new 28 cm dura max tunneled dialysis catheter. The catheter was found to flush and aspirate normally. Catheter tip is in the mid right atrium with the patient in the supine position.. Sterile dressings were applied. The procedures performed conscious sedation including continuous cardiopulmonary monitoring via dedicated sedation nurse. [id number] sedation time: 30 minutes. Total fluoroscopy time: 2.3 MIN Dose area product: 29 Gycm2 Impression: Replacement of left internal jugular tunnel dialysis catheter as described
[2018-10-01] MEDS ORDERED: LEVO500T59 PO (09:59)
== END 2018-07-23 15:26 | disposition home or self-care (01) ==
LOC: INTRAD 10:02
PROVIDERS: ATTEND Internal Medicine Nephrology
DX: T82.598A Other mechanical complication of other cardiac and vascular devices and implants, initial encounter (principal); I12.0 Hypertensive chronic kidney disease with stage 5 chronic kidney disease or end stage renal disease; E11.22 Type 2 diabetes mellitus with diabetic chronic kidney disease; N18.6 End stage renal disease; Z99.2 Dependence on renal dialysis; Z88.2 Allergy status to sulfonamides; Z88.1 Allergy status to other antibiotic agents; Z88.5 Allergy status to narcotic agent; Z88.6 Allergy status to analgesic agent; Z88.8 Allergy status to other drugs, medicaments and biological substances; Y83.8 Other surgical procedures as the cause of abnormal reaction of the patient, or of later complication, without mention of misadventure at the time of the procedure; Y92.89 Other specified places as the place of occurrence of the external cause; Z79.84 Long term (current) use of oral hypoglycemic drugs
CPT/HCPCS: 36581; 77001; 82962; 99152; 99153; C1750; C1769; J0696; J1644; J2250; J3010; J3490; Q9966

== ENCOUNTER 2018-07-25 08:32 | Outpatient (CLI) | payer OTHER ==
[2018-07-25] VITALS (17 sets, daily range): BP systolic 63–122; BP diastolic 25–56
[~2018-07-25] VITALS: Ht 162.6 cm; Wt 90.7 kg
[2018-07-25] MEDS ORDERED: LIDOCAINE WITH 8.4% SOD BICARB 3 ML DISP.SYRIN. ONE (09:07)
[2018-07-25] MEDS ORDERED: ALBUMIN HUMAN 25% 100 ML IV ONE ×5 (09:30→10:24)
[2018-07-25] MEDS ORDERED: LIDOCAINE WITH 8.4% SOD BICARB 3 ML DISP.SYRIN. IJ ONE (09:30)
[2018-07-25] MEDS ORDERED: ONDANSETRON PF 4 MG/2 ML VIAL. ONE (10:16)
[2018-07-25] MEDS ORDERED: DEXTROSE 50% 25 GM / 50ML DISP.SYRIN. IV ONE ×2 (10:20→10:30)
--- NOTE | 2018-07-25 10:36 | NUR ---
Patient taken to CV/OBS and while dropping off patient she became diaphoretic and complained of feeling hot and nauseated. IV Zofran given by Berto Solomon RN and blood sugar checked=12. Stat lab ordered to check sugar and IV Dextrose given by Luis Alanis RN. Pharmacy was called in order to replace IV Dextrose in case patient needed a second syringe. Patient encouraged to eat tray that was at bedside. Patient alert and answering questions appropriately, will continue to monitor.
[2018-07-25] MEDS ORDERED: ONDANSETRON PF 4 MG/2 ML VIAL. IV ONE (11:00)
[2018-07-25] MEDS ORDERED: IV NORMAL SALINE 500ML BAG 250 ML IV ONE ×2 (11:00→11:45)
--- NOTE | 2018-07-25 12:39 | NUR ---
Patient alert and oriented x4, follows all commands and able to make all needs and wants known verbally. Blood sugar WNL after IV Dextrose and blood pressure improved with Albumin and Normal saline bolus 500ml. Patient reports to feeling better, vitals stable. Per Dr. Wilkinson patient ok to be discharged. Pete-cath deaccessed with no issues, patient discharged home with son in private vehichle.
--- NOTE | 2018-07-25 12:52 | RAD ---
Ultrasound-guided paracentesis 07/25/2018 12:48 PM Procedure: The risks and benefits of the procedure were discussed the patient. Informed consent was obtained. A timeout procedure was performed. Sonographic evaluation of the abdomen was performed demonstrating ascites . The right lower quadrant was prepped and draped using maximum sterile barrier technique. 1% lidocaine without epinephrine was administered for local anesthesia. Real-time ultrasonographic guidance was used in passing a 5 Belgian Yueh catheter into the fluid collection. This is exchanged for an 8 Belgian drainage catheter. 14.6L L of serous ascites was removed. The catheter was removed and pressure held to achieve hemostasis. A sterile dressing was applied. Impression: Successful ultrasound-guided paracentesis
[2018-10-01] MEDS ORDERED: LEVO500T59 PO (09:59)
== END 2018-07-25 12:00 | disposition home or self-care (01) ==
LOC: INTRAD 08:32
PROVIDERS: ATTEND Internal Medicine Gastroenterology
DX: R18.8 Other ascites (principal); K74.60 Unspecified cirrhosis of liver; Z88.2 Allergy status to sulfonamides; Z88.5 Allergy status to narcotic agent; Z88.1 Allergy status to other antibiotic agents; Z88.6 Allergy status to analgesic agent; Z88.8 Allergy status to other drugs, medicaments and biological substances; E11.9 Type 2 diabetes mellitus without complications; Z79.899 Other long term (current) drug therapy; Z79.84 Long term (current) use of oral hypoglycemic drugs
CPT/HCPCS: 36415; 49083; 82947; 82962; A4215; C1729; C1894; J2405; J7040; P9046; J7042

== ENCOUNTER 2018-08-01 11:08 | Outpatient (CLI) | payer OTHER ==
[2018-08-01] VITALS (9 sets, daily range): BP systolic 79–97; BP diastolic 38–47
[~2018-08-01] VITALS: Ht 162.6 cm; Wt 90.7 kg
[~2018-08-01 11:08] MED LIST changes: +LIDOCAINE WITH 8.4% SOD BICARB 3 ML DISP.SYRIN. ONE
[2018-08-01] MEDS ORDERED: LIDOCAINE WITH 8.4% SOD BICARB 3 ML DISP.SYRIN. ONE (11:44)
[2018-08-01] MEDS ORDERED: ALBUMIN HUMAN 25% 300 ML IV ONE (12:12)
[2018-08-01] MEDS ORDERED: LIDOCAINE WITH 8.4% SOD BICARB 3 ML DISP.SYRIN. INJ ONE (12:30)
[2018-08-01] MEDS ORDERED: ALBUMIN HUMAN 25% 100 ML IV ONE ×3 (12:30)
[2018-08-01] MEDS ORDERED: HEPARIN PF 500 UNIT/5 ML DISP.SYRIN. IV ONE ×2 (13:18→13:30)
--- NOTE | 2018-08-01 14:25 | NUR ---
DISCHARGE NOTES Pt is discharged home. Pt ate lunch. Albumin 300ml was infused. BP was upper 80s. Notified Dr. Wilkinson re low BP. Pt's pre-procedure sbp was [address] Wilkinson said that pt could go home. Port-A-Cath was deaccessed by this nurse. Discharge instructions were reviewed w/ pt and family member. Patient and family member verbalized understanding. Pt was taken to lobby via W/C by this nurse.
--- NOTE | 2018-08-01 14:47 | RAD ---
Ultrasound-guided paracentesis 08/01/2018 2:44 PM Procedure: The risks and benefits of the procedure were discussed the patient. Informed consent was obtained. A timeout procedure was performed. Sonographic evaluation of the abdomen was performed demonstrating ascites . The right lower quadrant was prepped and draped using maximum sterile barrier technique. 1% lidocaine without epinephrine was administered for local anesthesia. Real-time ultrasonographic guidance was used in passing a 5 Mauritanian Yueh catheter into the fluid collection. This is exchanged for an 8 Mauritanian drainage catheter. 12.5 L of serous ascites was removed. The catheter was removed and pressure held to achieve hemostasis. A sterile dressing was applied. Impression: Successful ultrasound-guided paracentesis
[2018-10-01] MEDS ORDERED: LEVO500T59 PO (09:59)
== END 2018-08-01 14:45 | disposition home or self-care (01) ==
LOC: INTRAD 11:08
PROVIDERS: ATTEND Internal Medicine Gastroenterology
DX: R18.8 Other ascites (principal); Z88.2 Allergy status to sulfonamides; Z88.1 Allergy status to other antibiotic agents; Z88.5 Allergy status to narcotic agent; Z88.6 Allergy status to analgesic agent; Z88.8 Allergy status to other drugs, medicaments and biological substances; Z79.899 Other long term (current) drug therapy
CPT/HCPCS: 49083; 82962; A4215; C1729; P9046

== ENCOUNTER 2018-08-11 10:11 | Inpatient (IN) | payer OTHER ==
[~2018-08-11] VITALS: Ht 162.6 cm; Wt 86.4 kg
[~2018-08-11 10:11] MED LIST changes: -LIDOCAINE WITH 8.4% SOD BICARB 3 ML DISP.SYRIN. ONE
[2018-08-11] MEDS ORDERED: ALBUMIN HUMAN 25% 0 ML IV ONE (10:52)
[2018-08-11] MEDS ORDERED: LIDOCAINE WITH 8.4% SOD BICARB 3 ML DISP.SYRIN. ONE (10:52)
[2018-08-11] MEDS ORDERED: LIDOCAINE WITH 8.4% SOD BICARB 3 ML DISP.SYRIN. IJ ONE (11:00)
[2018-08-11 11:05] LABS: BASO % 1 % (0-3); EOS # 0.2 x10^3/uL (0.0-0.7); EOS % 2 % (0-3); HEMATOCRIT 21.4 % (36.0-47.0); LYMPH # 0.5 x10^3/uL (1.0-4.8); LYMPH % 6 % (24-48); MEAN CORPUSCULAR HEMOGLOBIN 30 pg (25-35); MEAN CORPUSCULAR HGB CONC 33 g/dL (31-37); MEAN CORPUSCULAR VOLUME 91 fL (79-100); MONO # 0.8 x10^3/uL (0.0-1.1); MONO % 9 % (0-9); NEUT # 7.1 x10^3uL (1.8-7.7); NEUT % 82 % (31-73); PLATELET COUNT 146 x10^3/uL (140-400); RED BLOOD COUNT 2.35 x10^6/uL (3.50-5.40); RED CELL DISTRIBUTION WIDTH 18.7 % (11.5-14.5); WHITE BLOOD COUNT 8.7 x10^3/uL (4.0-11.0)
[2018-08-11 11:09] LABS: HEMOGLOBIN 6.9 g/dL (12.0-15.5)
[2018-08-11 11:13] LABS: PROTHROMBIN TIME PATIENT 15.3 SEC (11.7-14.0)
[2018-08-11 11:17] LABS: CALCIUM 7.6 mg/dL (8.5-10.1); CREATININE 8.3 mg/dL (0.6-1.0); GFR 4.9; POTASSIUM 3.1 mmol/L (3.5-5.1)
[2018-08-11] MEDS ORDERED: ONDANSETRON PF 4 MG/2 ML VIAL. IV PRN (14:00)
--- NOTE | 2018-08-11 14:25 | PDOC2 ---
GI CONSULT Reason For Consult: GI problems HPI: HPI: 62 y/o female who we have seen many times. H/o ESLD (DIAZ), recurrent ascites/paracentesis, PVT, hepatic encephalopathy, esophageal varices, ESRD on HD (hepatorenal syndrome), chronic anemia (iron deficient in 04/2018) requiring transfusions, thrombocytopenia. Has desired further eval for liver transplant but declined by [facility] due to past behavior, also unable to transfer to [facility] in the past due to insurance. EGD by Dr. Vyas 04/2018: gastritis and grade 1 varices. EGD 10/2016: Grade II varices, gastritis, normal duodenum. H/o banding @ [facility]. Unclear when had last colonoscopy. US 08/2017: cholelithiasis, mild splenomegaly, cirrhosis, portal vein thrombosis. Last paracentesis 08/01 (12.5L) - looks like paracentesis is done weekly. Previously on lactulose and Xifaxan, h/o non-compliance and poor behavior w/ staff in the past. Unreliable historian. She says she was here for paracentesis today but "they didn't want to risk it." Missed dialysis on Sat - says had vomiting and diarrhea. Has soiled her diaper in her room - says first time today. Most recently vomited earlier today - "rice I ate yesterday." PMH: PMH: DIAZ/cirrhosis, esophageal varices/banding, ascites/paracentesis, HTN, HLD, COPD, DM, CKD, hypothyroidism, UTI, depression/anxiety, cholelithiasis, colon polyps, hemorrhoids, cataract removal, tonsillectomy, myringotomy, hysterectomy, HD cath FH: Family History: CVA, DM Social History: Smoke: <1 pack per day ALCOHOL: none Drugs: None ROS: Difficult to obtain, she doesn't provide much meaningful info. Vitals: Vitals: Please see EMR. Labs: Labs: Laboratory Tests Test 08/11/18 10:47 08/11/18 11:07 White Blood Count 8.7 x10^3/uL (4.0-11.0) Red Blood Count 2.35 x10^6/uL (3.50-5.40) Hemoglobin 6.9 g/dL (12.0-15.5) Hematocrit 21.4 % (36.0-47.0) Mean Corpuscular Volume 91 fL (79-100) Mean Corpuscular Hemoglobin 30 pg (25-35) Mean Corpuscular Hemoglobin Concent 33 g/dL (31-37) Red Cell Distribution Width 18.7 % (11.5-14.5) Platelet Count 146 x10^3/uL (140-400) Neutrophils (%) (Auto) 82 % (31-73) Lymphocytes (%) (Auto) 6 % (24-48) Monocytes (%) (Auto) 9 % (0-9) Eosinophils (%) (Auto) 2 % (0-3) Basophils (%) (Auto) 1 % (0-3) Neutrophils # (Auto) 7.1 x10^3uL (1.8-7.7) Lymphocytes # (Auto) 0.5 x10^3/uL (1.0-4.8) Monocytes # (Auto) 0.8 x10^3/uL (0.0-1.1) Eosinophils # (Auto) 0.2 x10^3/uL (0.0-0.7) Basophils # (Auto) 0.0 x10^3/uL (0.0-0.2) Prothrombin Time 15.3 SEC (11.7-14.0) Prothromb Time International Ratio 1.2 (0.8-1.1) Sodium Level 134 mmol/L (136-145) Potassium Level 3.1 mmol/L (3.5-5.1) Chloride Level 98 mmol/L (98-107) Carbon Dioxide Level 14 mmol/L (21-32) Anion Gap 22 (6-14) Blood Urea Nitrogen 75 mg/dL (7-20) Creatinine 8.3 mg/dL (0.6-1.0) Estimated GFR (Cockcroft-Gault) 4.9 Glucose Level 212 mg/dL (70-99) Calcium Level 7.6 mg/dL (8.5-10.1) Glucose (Fingerstick) 204 mg/dL (70-99) Allergies: Coded Allergies: Sulfa (Sulfonamide Antibiotics) (Verified Allergy, Severe, Swelling, 04/24/18) tongue swelling, rash cephalexin (Verified Allergy, Severe, Anaphylaxis, 05/22/18) TOLERATES AMOX, ZOSYN doxycycline (Verified Allergy, Intermediate, 04/24/18) gabapentin (Verified Allergy, Intermediate, Anxiety, 06/04/18) pt states gabapentin caused her to be admitted to [facility] where she presented "because I was out of my mind from that drug." insulin detemir (Verified Allergy, Intermediate, Rash, 04/24/18) morphine (Verified Allergy, Intermediate, rash, 04/24/18) niacin (Verified Allergy, Intermediate, Rash, 04/24/18) edema oxycodone (Verified Allergy, Intermediate, rash, 04/24/18) povidone-iodine (Verified Allergy, Intermediate, It, 04/24/18) rifaximin (Verified Allergy, Intermediate, Itching, 04/24/18) tramadol (Verified Allergy, Intermediate, Rash, 04/24/18) I S O L A T I O N *CONTACT* (Verified Allergy, Unknown, 04/24/18) VRE - urine 12/20/17 codeine (Verified Adverse Reaction, Intermediate, Nausea and Vomiting, 04/24/18) erythromycin base (Verified Adverse Reaction, Intermediate, Diarrhea, 04/24/18) PE: GEN: NAD HEENT: Atraumatic, PERRL LUNGS: CTAB HEART: RRR ABD: massively distended/tight/ascites EXTREMITY: BLE pitting edema SKIN: No rashes, no jaundice NEURO/PSYCH: probably confused A/P: A/P: ESLD (DIAZ), recurrent ascites requiring paracentesis -h/o esophageal varices, PVT, thrombocytopenia (WNL today) -INR 1.2 Vomiting, diarrhea, hypokalemia Chronic anemia - baseline Hgb is 7-8 range, 6.9 today -denies bleeding CRC screen - unclear Cholelithiasis ESRD on HD, DM +tobacco -- D/w RN - paracentesis cancelled due to abnormal labs. Will order transfusion, check ammonia, check hepatic panel to calculate MELD. Paracentesis when feasible. Chart lists allergy to Xifaxan but she has taken in the past - restart. Check stool studies. Okay for PO, observe for bleeding. Add PPI. Attempted transfer to and [facility] declined in the past. Non-complaint, still smokes. Renal consult. JENNIE ABRAMS Aug 11, 2018 14:25
--- NOTE | 2018-08-11 14:30 | NUR ---
Pt's procedure was cancelled due to abnormal labs; Dr. Tello notified and order given to call [facility] and have pt admitted. OSIRIS Hernández spoke with Dr. Strickland. Pt admitted to Rm: [id number]. Pt denies any pain or sob; VSS. Pt had an episode of nausea and vomiting; Dr. Strickland notified and order for Zofran received. Pt given Zofran. Report called to Regulo NEWELL on 5N. Pt taken up per wheelchair to 528, accompanied by son Tre Nguyen. Hand off of pt completed with speech assistant and Regulo NEWELL.
[2018-08-11] MEDS ORDERED: POTASSIUM CHLORIDE 10 MEQ TABLET.ER. PO ONE (15:30)
--- NOTE | 2018-08-11 16:22 | PDOC1 ---
History and Physical Date of Admission Date of Admission DATE: 08/11/18 TIME: 16:17 Source Source: Chart review, Patient History of Present Illness History of Present Illness Ms. Nguyen is a 62 y/o female, was here for sched symptomatic paracentesis. Labs showed anemia, hypokalemia, Int Radio asked for admit his ESLD, hepatic encephalopathy, esophageal varices, and now ESRD, but missed HD last saturday, as she didn't feel well, had some nausea, vomited. [facility] transplanst team declined by [facility] she is weak, and complains of rectal pain due to hemorrhoids, and freq diarrhea, likely due to meds, Last paracentesis 08/01 (12.5L) - looks like paracentesis is done weekly. Past Medical History Cardiovascular: HTN, Hyperlipidemia Pulmonary: Asthma, COPD CENTRAL NERVOUS SYSTEM: Other GI: Constipation, GERD, GI bleed, Gastritis, Hemorrhoids, Other Heme/Onc: Anemia NOS Hepatobiliary: Cirrhosis Psych: Anxiety, Depression Musculoskeletal: Osteoarthritis Renal/: Acute renal failure, UTI, Urinary Incontinence Endocrine: Diabetes, Hypothyroidism Past Surgical History Past Surgical History: Cataract Removal, Tonsillectomy, Hysterectomy, Other Family History Family History: High Cholestrol, Family History Unknown Social History Smoke: <1 pack per day ALCOHOL: none Drugs: None Current Medications Current Medications Current Medications Lidocaine/Sodium Bicarbonate (Buffered Lidocaine 1%) 3 ml STK-MED ONCE .ROUTE ; Start 08/11/18 at 10:52; Stop 08/11/18 at 10:53; Status DC Albumin Human 0 ml @ As Directed STK-MED ONCE IV ; Start 08/11/18 at 10:52; Stop 08/11/18 at 10:53; Status DC Lidocaine/Sodium Bicarbonate (Buffered Lidocaine 1%) 3 ml 1X ONCE IJ ; Start 08/11/18 at 11:00; Stop 08/11/18 at 11:01; Status DC Ondansetron HCl (Zofran) 8 mg PRN Q8HRS PRN IV NAUSEA/VOMITING; Start 08/11/18 at 14:00; Stop 08/12/18 at 13:59 Rifaximin (Xifaxan) 550 mg Q12HR PO ; Start 08/11/18 at 21:00 Pantoprazole Sodium (Protonix) 40 mg DAILYAC PO ; Start 08/11/18 at 15:30 Potassium Chloride (Klor-Con) 10 meq 1X ONCE PO ; Start 08/11/18 at 15:30; Stop 08/11/18 at 15:31; Status DC Active Scripts Active Reported Calcium Acetate 667 Mg Tablet 667 Mg PO TIDWMEALS Dialyvite Tablet (Folic Acid/Vitamin B Comp W-C) 1 Each Tablet 1 Each PO DAILY Midodrine Hcl 5 Mg Tablet 5 Mg PO TID Cyclobenzaprine Hcl 5 Mg Tablet 1 Tab PO TID Omeprazole 40 Mg Capsule. 1 Cap PO DAILY Xifaxan (Rifaximin) 550 Mg Tablet 1 Tab PO BID Fusion Plus Capsule (Iron,Fum&Ps/Fa/Vit B&C#18/L.ca) 1 Each Capsule 1 Each PO Albuterol Sulfate Conc Neb Soln (Albuterol Sulfate) 2.5 Mg/0.5 Ml Vial.neb 2.5 Mg NEB Q6HRS PRN Lactulose 20 Gm/30 Ml Solution 20 Gm PO TID Lantus Solostar (Insulin Glargine,Hum.rec.anlog) 100 Unit/1 Ml Insuln.pen 0 SQ HS SSI Calcium + Vitamin D Tablet (Calcium Carbonate/Vitamin D3) 1 Each Tablet 1 Each PO Albuterol Sulfate Hfa Inhaler (Albuterol Sulfate) 8.5 Gm Hfa.aer.ad 8.5 Gm IH Novolog Flexpen (Insulin Aspart) 100 Unit/1 Ml Insuln.pen 0 SQ TIDAC ssi Synthroid (Levothyroxine Sodium) 25 Mcg Tablet 300 Mcg PO DAILY Flovent 110MCG Hfa (Fluticasone Propionate) 12 Gm Aer.w.adap 12 Gm IH Allergies Allergies: Coded Allergies: Sulfa (Sulfonamide Antibiotics) (Verified Allergy, Severe, Swelling, 04/24/18) tongue swelling, rash cephalexin (Verified Allergy, Severe, Anaphylaxis, 05/22/18) TOLERATES AMOX, ZOSYN doxycycline (Verified Allergy, Intermediate, 04/24/18) gabapentin (Verified Allergy, Intermediate, Anxiety, 06/04/18) pt states gabapentin caused her to be admitted to [facility] where she presented "because I was out of my mind from that drug." insulin detemir (Verified Allergy, Intermediate, Rash, 04/24/18) morphine (Verified Allergy, Intermediate, rash, 04/24/18) niacin (Verified Allergy, Intermediate, Rash, 04/24/18) edema oxycodone (Verified Allergy, Intermediate, rash, 04/24/18) povidone-iodine (Verified Allergy, Intermediate, It, 04/24/18) rifaximin (Verified Allergy, Intermediate, Itching, 04/24/18) tramadol (Verified Allergy, Intermediate, Rash, 04/24/18) I S O L A T I O N *CONTACT* (Verified Allergy, Unknown, 04/24/18) VRE - urine 12/20/17 codeine (Verified Adverse Reaction, Intermediate, Nausea and Vomiting, 04/24) erythromycin base (Verified Adverse Reaction, Intermediate, Diarrhea, 04/24/18) ROS General: YES: Chills, Fatigue PSYCHOLOGICAL ROS: YES: Anxiety, Irritablity; No: Behavioral Disorder, Concentration difficultie, Decreased libido, Depression, Disorientation, Hallucinations, Hostility, Memory difficulties, Mood Swings, Obsessive thoughts, Other Eyes: No Blurry vision, No Decreased vision, No Double vision, No Dry eyes, No Excessive tearing, No Eye Pain, No Itchy Eyes, No Loss of vision, No Photophobia, No Scotomata, No Uses contacts, No Uses glasses, No Other HEENT: YES: Heacaches; No: Visual Changes, Hearing change, Nasal congestion, Nasal discharge, Oral lesions, Sinus pain, Sore Throat, Epistaxis, Sneezing, Snoring, Tinnitus, Vertigo, Vocal changes, Other Breast: No New/Changing Breast Lumps, No Nipple changes, No Nipple discharge, No Other Respiratory: YES: SOB with excertion; No: Cough, Hemoptysis, Orthopnea, Pleuritic Pain, Shortness of breath, Sputum Changes, Stridor, Tachypnea, Wheezing, Other Cardiovascular: No Chest Pain, No Palpitations, No Orthopnea, No Paroxysmal Noc. Dyspnea, No Edema, No Lt Headedness, No Other Gastrointestinal: Yes Nausea, Yes Abdominal Pain, Yes Diarrhea; No Vomiting, No Constipation, No Melena, No Hematochezia, No Other Genitourinary: No Dysuria, No Frequency, No Incontinence, No Hematuria, No Retention, No Discharge, No Urgency, No Pain, No Flank Pain, No Other, No , No , No , No , No , No , No Musculoskeletal: Yes Joint Pain, Yes Joint Stiffness; No Gait Disturbance, No Joint Swelling, No Muscle Pain, No Muscular Weakness, No Pain In:, No Swelling In:, No Other Neurological: No Behavorial Changes, No Bowel/Bladder ControlChng, No Confusion, No Dizziness, No Gait Disturbance, No Headaches, No Impaired Coord/balance, No Memory Loss, No Numbness/Tingling, No Seizures, No Speech Problems, No Tremors, No Visual Changes, No Weakness, No Other Skin: Yes Eczema; No Dry Skin, No Hair Changes, No Lumps, No Mole Changes, No Mottling, No Nail Changes, No Pruritus, No Rash, No Skin Lesion Changes, No Other, No Acne Physical Exam General: Alert, Cooperative, mild distress HEENT: EOMI Lungs: Clear to auscultation, Normal air movement Heart: S1S2, no gallops Extremities: No clubbing, No cyanosis, No edema, Normal pulses Neuro: Normal speech, Sensation intact, Cranial nerves 3-12 NL Labs Labs Laboratory Tests Test 08/11/18 10:47 08/11/18 11:07 White Blood Count 8.7 x10^3/uL (4.0-11.0) Red Blood Count 2.35 x10^6/uL (3.50-5.40) Hemoglobin 6.9 g/dL (12.0-15.5) Hematocrit 21.4 % (36.0-47.0) Mean Corpuscular Volume 91 fL (79-100) Mean Corpuscular Hemoglobin 30 pg (25-35) Mean Corpuscular Hemoglobin Concent 33 g/dL (31-37) Red Cell Distribution Width 18.7 % (11.5-14.5) Platelet Count 146 x10^3/uL (140-400) Neutrophils (%) (Auto) 82 % (31-73) Lymphocytes (%) (Auto) 6 % (24-48) Monocytes (%) (Auto) 9 % (0-9) Eosinophils (%) (Auto) 2 % (0-3) Basophils (%) (Auto) 1 % (0-3) Neutrophils # (Auto) 7.1 x10^3uL (1.8-7.7) Lymphocytes # (Auto) 0.5 x10^3/uL (1.0-4.8) Monocytes # (Auto) 0.8 x10^3/uL (0.0-1.1) Eosinophils # (Auto) 0.2 x10^3/uL (0.0-0.7) Basophils # (Auto) 0.0 x10^3/uL (0.0-0.2) Prothrombin Time 15.3 SEC (11.7-14.0) Prothromb Time International Ratio 1.2 (0.8-1.1) Sodium Level 134 mmol/L (136-145) Potassium Level 3.1 mmol/L (3.5-5.1) Chloride Level 98 mmol/L (98-107) Carbon Dioxide Level 14 mmol/L (21-32) Anion Gap 22 (6-14) Blood Urea Nitrogen 75 mg/dL (7-20) Creatinine 8.3 mg/dL (0.6-1.0) Estimated GFR (Cockcroft-Gault) 4.9 Glucose Level 212 mg/dL (70-99) Calcium Level 7.6 mg/dL (8.5-10.1) Glucose (Fingerstick) 204 mg/dL (70-99) Laboratory Tests Test 08/11/18 10:47 08/11/18 11:07 White Blood Count 8.7 x10^3/uL (4.0-11.0) Red Blood Count 2.35 x10^6/uL (3.50-5.40) Hemoglobin 6.9 g/dL (12.0-15.5) Hematocrit 21.4 % (36.0-47.0) Mean Corpuscular Volume 91 fL (79-100) Mean Corpuscular Hemoglobin 30 pg (25-35) Mean Corpuscular Hemoglobin Concent 33 g/dL (31-37) Red Cell Distribution Width 18.7 % (11.5-14.5) Platelet Count 146 x10^3/uL (140-400) Neutrophils (%) (Auto) 82 % (31-73) Lymphocytes (%) (Auto) 6 % (24-48) Monocytes (%) (Auto) 9 % (0-9) Eosinophils (%) (Auto) 2 % (0-3) Basophils (%) (Auto) 1 % (0-3) Neutrophils # (Auto) 7.1 x10^3uL (1.8-7.7) Lymphocytes # (Auto) 0.5 x10^3/uL (1.0-4.8) Monocytes # (Auto) 0.8 x10^3/uL (0.0-1.1) Eosinophils # (Auto) 0.2 x10^3/uL (0.0-0.7) Basophils # (Auto) 0.0 x10^3/uL (0.0-0.2) Prothrombin Time 15.3 SEC (11.7-14.0) Prothromb Time International Ratio 1.2 (0.8-1.1) Sodium Level 134 mmol/L (136-145) Potassium Level 3.1 mmol/L (3.5-5.1) Chloride Level 98 mmol/L (98-107) Carbon Dioxide Level 14 mmol/L (21-32) Anion Gap 22 (6-14) Blood Urea Nitrogen 75 mg/dL (7-20) Creatinine 8.3 mg/dL (0.6-1.0) Estimated GFR (Cockcroft-Gault) 4.9 Glucose Level 212 mg/dL (70-99) Calcium Level 7.6 mg/dL (8.5-10.1) Glucose (Fingerstick) 204 mg/dL (70-99) VTE Prophylaxis Ordered VTE Prophylaxis Devices: Contraindicated VTE Pharmacological Prophylaxi: Yes Assessment/Plan Assessment/Plan symptomatic anemia ESLD ascites ESRD hypokalemia weakness, debility, admit symptom control, 1 u PRBC, needs HD, will try paracentesis in AM BENJAMIN POOL MD Aug 11, 2018 16:22
[2018-08-11 16:26] VITALS: BP 85/24
[2018-08-11] MEDS ORDERED: PHENYLEPH/MINERAL OIL/PETROLAT RECTAL OINTMENT 28GM TUBE. RC PRN (16:30)
[2018-08-11] MEDS ORDERED: NICOTINE 14MG PATCH. TD PRN (16:30)
[2018-08-11] MEDS: PANTOPRAZOLE 40 MG TABLET.DR. PO SCH (17:39)
[2018-08-11 19:00] VITALS: BP 103/40
[2018-08-11] MEDS: rifAXIMin 550 MG TABLET PO SCH (20:48)
[2018-08-11] MEDS: HYDROCORTISONE 2.5% RECTAL CREAM 30GM TUBE. RC SCH (20:49)
[2018-08-11 21:13] LABS: ALBUMIN 2.3 g/dL (3.4-5.0); DIRECT BILIRUBIN 0.2 mg/dL (0.0-0.2); TOTAL BILIRUBIN 0.5 mg/dL (0.2-1.0); TOTAL PROTEIN 5.9 g/dL (6.4-8.2)
[2018-08-11 23:00] VITALS: BP 136/70
[2018-08-11 23:26] VITALS: BP 81/28
[2018-08-11 23:42] VITALS: BP 87/36
[2018-08-12] VITALS (15 sets, daily range): BP systolic 82–136; BP diastolic 28–62
[2018-08-12] MEDS ORDERED: DIPH25CA58 PO (01:43)
[2018-08-12] MEDS: PANTOPRAZOLE 40 MG TABLET.DR. PO SCH (06:07)
[2018-08-12] MEDS: HYDROCORTISONE 2.5% RECTAL CREAM 30GM TUBE. RC SCH (07:52)
[2018-08-12 07:57] LABS: BASO % 1 % (0-3); EOS # 0.1 x10^3/uL (0.0-0.7); EOS % 2 % (0-3); HEMOGLOBIN 8.7 g/dL (12.0-15.5); LYMPH # 0.5 x10^3/uL (1.0-4.8); LYMPH % 6 % (24-48); MEAN CORPUSCULAR HEMOGLOBIN 30 pg (25-35); MEAN CORPUSCULAR HGB CONC 33 g/dL (31-37); MEAN CORPUSCULAR VOLUME 89 fL (79-100); MONO # 0.7 x10^3/uL (0.0-1.1); MONO % 9 % (0-9); NEUT # 6.4 x10^3uL (1.8-7.7); NEUT % 83 % (31-73); PLATELET COUNT 115 x10^3/uL (140-400); RED BLOOD COUNT 2.91 x10^6/uL (3.50-5.40); RED CELL DISTRIBUTION WIDTH 16.7 % (11.5-14.5); WHITE BLOOD COUNT 7.8 x10^3/uL (4.0-11.0)
[2018-08-12] MEDS ORDERED: IV NORMAL SALINE 1000ML BAG 1,000 ML IV PRN ×2 (08:07)
[2018-08-12] MEDS ORDERED: ACETAMINOPHEN 500 MG TABLET PO PRN (08:15)
[2018-08-12] MEDS ORDERED: 0.9 % SODIUM CHLORIDE 10 ML DISP.SYRIN. IV PRN ×2 (08:15)
[2018-08-12] MEDS ORDERED: diphenhydrAMINE 50 MG/ML VIAL IV PRN ×2 (08:15)
[2018-08-12] MEDS ORDERED: ALBUMIN HUMAN 25% 200 ML IV PRN (08:15)
[2018-08-12] MEDS ORDERED: DIALYSIS PATIENT. MC PRN (08:15)
[2018-08-12] MEDS ORDERED: NON FORMULARY ITEM (Albuterol Sulfate (Albuterol Sulfate Conc Neb Soln) 2.5 MG) NEB PRN (10:00)
[2018-08-12] MEDS ORDERED: ALBUTEROL SULFATE 2.5 MG/3 ML NEBU. NEB PRN (10:15)
--- NOTE | 2018-08-12 10:22 | NUR ---
SW consulted for HH needs. SW will arrange HH if ordered by Physician.
[2018-08-12] MEDS ORDERED: LEVOTHYROXINE 100 MCG TABLET PO SCH (11:00)
[2018-08-12] MEDS ORDERED: FOLIC/VIT B COMP W-C (RENAL) TABLET. PO SCH (11:00)
[2018-08-12] MEDS: MIDODRINE 5 MG TABLET PO SCH ×2 (11:38→13:00)
--- NOTE | 2018-08-12 11:59 | PDOC ---
Subjective: Subjective: "I need to eat! You need to let me eat!" Objective: Objective: Reviewed w/ RN - tolerating PO, pt has been angry she might need to remain NPO for paracentesis, having samuel smears of stool, possible DC after paracentesis. Vital Signs: Vital Signs Date Time Temp Pulse Resp B/P (MAP) Pulse Ox O2 Delivery O2 Flow Rate FiO2 08/12/18 11:38 105 89/32 08/12/18 11:00 97.4 16 99 Room Air 97.4 Labs: Laboratory Tests Test 08/11/18 16:39 08/11/18 20:40 08/11/18 20:45 08/12/18 07:25 Glucose (Fingerstick) 80 mg/dL 161 mg/dL Total Bilirubin 0.5 mg/dL Direct Bilirubin 0.2 mg/dL Aspartate Amino Transf (AST/SGOT) 35 U/L Alanine Aminotransferase (ALT/SGPT) 28 U/L Alkaline Phosphatase 231 U/L Ammonia 144 mcmol/L Total Protein 5.9 g/dL Albumin 2.3 g/dL White Blood Count 7.8 x10^3/uL Red Blood Count 2.91 x10^6/uL Hemoglobin 8.7 g/dL Hematocrit 26.0 % Mean Corpuscular Volume 89 fL Mean Corpuscular Hemoglobin 30 pg Mean Corpuscular Hemoglobin Concent 33 g/dL Red Cell Distribution Width 16.7 % Platelet Count 115 x10^3/uL Neutrophils (%) (Auto) 83 % Lymphocytes (%) (Auto) 6 % Monocytes (%) (Auto) 9 % Eosinophils (%) (Auto) 2 % Basophils (%) (Auto) 1 % Neutrophils # (Auto) 6.4 x10^3uL Lymphocytes # (Auto) 0.5 x10^3/uL Monocytes # (Auto) 0.7 x10^3/uL Eosinophils # (Auto) 0.1 x10^3/uL Basophils # (Auto) 0.0 x10^3/uL Test 08/12/18 07:56 Glucose (Fingerstick) 135 mg/dL PE: GEN: dialyzing LUNGS: room air HEART: RRR ABD: distended/tight NEURO/PSYCH: angry, probably a bit confused A/P: ESLD (DIAZ), recurrent ascites/paracentesis, hepatic encephalopathy ?vomiting/diarrhea - resolving Chronic anemia - improved w/ transfusion, no bleeding ESRD on HD, DM, +tobacco -- Would DC w/ Xifaxan since non-compliant w/ lactulose. MELD 24. Non-compliance and behavioral issues preventative of liver transplant. JENNIE ABRAMS Aug 12, 2018 11:59
[2018-08-12] MEDS ORDERED: CALCIUM ACETATE 667 MG CAPSULE PO SCH (12:00)
[2018-08-12] MEDS ORDERED: INSULIN LISPRO 300 UNITS/3 ML INSULN.PEN. SQ SCH (12:00)
[2018-08-12] MEDS ORDERED: diphenhydrAMINE HCL 25 MG CAPSULE PO PRN (12:00)
--- NOTE | 2018-08-12 12:21 | PDOC2 ---
CONSULT Date of Consult Date of Consult DATE: 08/12/18 TIME: 12:12 Reason for Consult Reason for Consult: LOW K AND ESRD Referring Physician Referring Physician: JERI Identification/Chief Complaint Chief Complaint LOW HGB Source Source: Chart review History of Present Illness Reason for Visit: THIS IS A 62 YR OLD ESLD PT DUE TO DIAZ. ALSO HAS RECURRENT ASCITES NEEDING TO HAVE PARACENTESIS.. WHILE HERE FOR THAT SHE WAS NOTED TO HAVE A HGB OF ABOUT 6.0. SHE IS ALSO NOTED TO HAVE ESRD AND IS ON OP HD ON MWF BUT SHE IS NON COMPLIANT AND SKIPPED HER LAST COUPLE TREATMENTS. GI EVAL IS ONGOING. IT SHOULD ALSO BE NOTED THAT SHE HAS MISSED MANY OF HER EPOGEN DOSES AT DIALYSIS SINCE SHE HAS NOT BEEN GOING REGULARLY. LABS ARE C/W ESRD. Past Medical History Cardiovascular: HTN, Hyperlipidemia Pulmonary: Asthma, COPD CENTRAL NERVOUS SYSTEM: Other GI: Constipation, GERD, GI bleed, Gastritis, Hemorrhoids, Other Heme/Onc: Anemia NOS Hepatobiliary: Cirrhosis Psych: Anxiety, Depression Musculoskeletal: Osteoarthritis Renal/: Acute renal failure, UTI, Urinary Incontinence Endocrine: Diabetes, Hypothyroidism, Hyperparathyroidism Past Surgical History Past Surgical History: Cataract Removal, Tonsillectomy, Hysterectomy, Other Family History Family History: High Cholestrol, Family History Unknown Social History <1 pack per day ALCOHOL: none Drugs: None Current Medications Current Medications Current Medications Lidocaine/Sodium Bicarbonate (Buffered Lidocaine 1%) 3 ml STK-MED ONCE .ROUTE ; Start 08/11/18 at 10:52; Stop 08/11/18 at 10:53; Status DC Albumin Human 0 ml @ As Directed STK-MED ONCE IV ; Start 08/11/18 at 10:52; Stop 08/11/18 at 10:53; Status DC Lidocaine/Sodium Bicarbonate (Buffered Lidocaine 1%) 3 ml 1X ONCE IJ ; Start 08/11/18 at 11:00; Stop 08/11/18 at 11:01; Status DC Ondansetron HCl (Zofran) 8 mg PRN Q8HRS PRN IV NAUSEA/VOMITING; Start 08/11/18 at 14:00; Stop 08/12/18 at 13:59 Rifaximin (Xifaxan) 550 mg Q12HR PO Last administered on 08/11/18at 20:48; Start 08/11/18 at 21:00 Pantoprazole Sodium (Protonix) 40 mg DAILYAC PO Last administered on 08/12/18at 06:07; Start 08/11/18 at 15:30 Potassium Chloride (Klor-Con) 10 meq 1X ONCE PO Last administered on 08/11/18at 17:39; Start 08/11/18 at 15:30; Stop 08/11/18 at 15:31; Status DC Phenyleph/Shark Oil/Min Oil/Petrol (Preparation H) 1 kiana PRN Q6HRS PRN RC RECTAL PAIN; Start 08/11/18 at 16:30 Hydrocortisone (Proctosol-Hc) 1 kiana DAILY RC Last administered on 08/12/18at 07:52; Start 08/11/18 at 17:00 Nicotine (Nicoderm Cq 14mg) 1 patch PRN DAILY PRN TD SMOKING CESSATION; Start 08/11/18 at 16:30 Sodium Chloride 1,000 ml @ 1,000 mls/hr Q1H PRN IV hypotension; Start 08/12/18 at 08:07; Stop 08/12/18 at 14:06 Albumin Human 200 ml @ 200 mls/hr 1X PRN PRN IV Hypotension; Start 08/12/18 at 08:15; Stop 08/12/18 at 14:14 Acetaminophen (Tylenol) 500 mg 1X PRN PRN PO MILD PAIN / TEMP; Start 08/12/18 at 08:15; Stop 08/13/18 at 08:14 Diphenhydramine HCl (Benadryl) 25 mg 1X PRN PRN IV ITCHING; Start 08/12/18 at 08:15; Stop 08/13/18 at 08:14 Diphenhydramine HCl (Benadryl) 25 mg 1X PRN PRN IV ITCHING; Start 08/12/18 at 08:15; Stop 08/13/18 at 08:14 Sodium Chloride (Normal Saline Flush) 10 ml 1X PRN PRN IV AP catheter pack; Start 08/12/18 at 08:15; Stop 08/13/18 at 08:14 Sodium Chloride (Normal Saline Flush) 10 ml 1X PRN PRN IV RACECAR DRIVER catheter pack; Start 08/12/18 at 08:15; Stop 08/13/18 at 08:14 Sodium Chloride 1,000 ml @ 400 mls/hr Q2H30M PRN IV PATENCY; Start 08/12/18 at 08:07; Stop 08/12/18 at 20:06 Info (PHARMACY MONITORING -- do not chart) 1 each PRN DAILY PRN MC SEE COMMENTS; Start 08/12/18 at 08:15 Albuterol Sulfate (Ventolin Neb Soln) 2.5 mg PRN Q4HRS PRN NEB SHORTNESS OF BREATH; Start 08/12/18 at 10:15 Diphenhydramine HCl (Benadryl) 25 mg PRN Q6HRS PRN PO ITCHING; Start 08/12/18 at 12:00 Insulin Glargine (Lantus) 10 units HS SQ ; Start 08/12/18 at 21:00 Lactulose (Lactulose) 20 gm TID PO ; Start 08/12/18 at 14:00 Rifaximin (Xifaxan) 550 mg BID PO ; Start 08/12/18 at 21:00; Status UNV Non-Formulary Medication (Albuterol Sulfate (Albuterol Sulfate Conc Neb Soln)) 2.5 mg Q6HRS PRN NEB SHORTNESS OF BREATH; Start 08/12/18 at 10:00; Status UNV Calcium Acetate (Phoslo) 667 mg TIDWMEALS PO ; Start 08/12/18 at 12:00 Cyclobenzaprine HCl (Flexeril) 5 mg TID PO ; Start 08/12/18 at 14:00 Vitamin B Complex/ Vitamin C (Tasia-Meliton) 1 tab DAILY PO ; Start 08/12/18 at 11:00 Insulin Human Lispro (HumaLOG) 8 units TIDWMEALS SQ ; Start 08/12/18 at 12:00 Levothyroxine Sodium (Synthroid) 300 mcg DAILY06 PO ; Start 08/12/18 at 11:00 Midodrine (Proamatine) 5 mg [id number] PO Last administered on 08/12/18at 11:38; Start 08/12/18 at 11:07 Non-Formulary Medication (Omeprazole ) 1 cap DAILY PO ; Start 08/13/18 at 09:00; Status UNV Active Scripts Active Reported Benadryl (Diphenhydramine Hcl) 25 Mg Capsule 25 Mg PO Q6HRS Calcium Acetate 667 Mg Tablet 667 Mg PO TIDWMEALS Dialyvite Tablet (Folic Acid/Vitamin B Comp W-C) 1 Each Tablet 1 Each PO DAILY Midodrine Hcl 5 Mg Tablet 5 Mg PO TID Cyclobenzaprine Hcl 5 Mg Tablet 1 Tab PO TID Omeprazole 40 Mg Capsule.dr 1 Cap PO DAILY Xifaxan (Rifaximin) 550 Mg Tablet 1 Tab PO BID Fusion Plus Capsule (Iron,Fum&Ps/Fa/Vit B&C#18/L.ca) 1 Each Capsule 1 Each PO Albuterol Sulfate Conc Neb Soln (Albuterol Sulfate) 2.5 Mg/0.5 Ml Vial.neb 2.5 Mg NEB Q6HRS PRN Lactulose 20 Gm/30 Ml Solution 20 Gm PO TID Lantus Solostar (Insulin Glargine,Hum.rec.anlog) 100 Unit/1 Ml Insuln.pen 0 SQ HS SSI Calcium + Vitamin D Tablet (Calcium Carbonate/Vitamin D3) 1 Each Tablet 1 Each PO Albuterol Sulfate Hfa Inhaler (Albuterol Sulfate) 8.5 Gm Hfa.aer.ad 8.5 Gm IH Novolog Flexpen (Insulin Aspart) 100 Unit/1 Ml Insuln.pen 0 SQ TIDAC ssi Synthroid (Levothyroxine Sodium) 25 Mcg Tablet 300 Mcg PO DAILY Flovent 110MCG Hfa (Fluticasone Propionate) 12 Gm Aer.w.adap 12 Gm IH Allergies Allergies: Coded Allergies: Sulfa (Sulfonamide Antibiotics) (Verified Allergy, Severe, Swelling, 04/24/18) tongue swelling, rash cephalexin (Verified Allergy, Severe, Anaphylaxis, 05/22/18) TOLERATES AMOX, ZOSYN doxycycline (Verified Allergy, Intermediate, 04/24/18) gabapentin (Verified Allergy, Intermediate, Anxiety, 06/04/18) pt states gabapentin caused her to be admitted to [facility] where she presented "because I was out of my mind from that drug." insulin detemir (Verified Allergy, Intermediate, Rash, 04/24/18) morphine (Verified Allergy, Intermediate, rash, 04/24/18) niacin (Verified Allergy, Intermediate, Rash, 04/24/18) edema oxycodone (Verified Allergy, Intermediate, rash, 04/24/18) povidone-iodine (Verified Allergy, Intermediate, It, 04/24/18) rifaximin (Verified Allergy, Intermediate, Itching, 04/24/18) tramadol (Verified Allergy, Intermediate, Rash, 04/24/18) I S O L A T I O N *CONTACT* (Verified Allergy, Unknown, 04/24/18) VRE - urine 12/20/17 codeine (Verified Adverse Reaction, Intermediate, Nausea and Vomiting, 04/24/18) erythromycin base (Verified Adverse Reaction, Intermediate, Diarrhea, 04/24/18) ROS Review of System CONFUSED Physical Exam General: Cooperative, No acute distress HEENT: EOMI, Mucous membr. moist/pink Lungs: Clear to auscultation, Normal air movement Heart: Regular rate, Normal S2 Abdomen: Normal bowel sounds, Other (POS ASCITES) Extremities: No clubbing, No edema Skin: No breakdown Neuro: Other (CONFUSED) Psych/Mental Status: Other (CONFSUED ) MUSCULOSKELETAL: No deformity, No swelling Vitals VITALS Vital Signs Date Time Temp Pulse Resp B/P (MAP) Pulse Ox O2 Delivery O2 Flow Rate FiO2 08/12/18 11:38 105 89/32 08/12/18 11:00 97.4 16 99 Room Air 97.4 Labs Labs Laboratory Tests Test 08/11/18 10:47 08/11/18 11:07 08/11/18 16:39 08/11/18 20:40 White Blood Count 8.7 x10^3/uL (4.0-11.0) Red Blood Count 2.35 x10^6/uL (3.50-5.40) Hemoglobin 6.9 g/dL (12.0-15.5) Hematocrit 21.4 % (36.0-47.0) Mean Corpuscular Volume 91 fL (79-100) Mean Corpuscular Hemoglobin 30 pg (25-35) Mean Corpuscular Hemoglobin Concent 33 g/dL (31-37) Red Cell Distribution Width 18.7 % (11.5-14.5) Platelet Count 146 x10^3/uL (140-400) Neutrophils (%) (Auto) 82 % (31-73) Lymphocytes (%) (Auto) 6 % (24-48) Monocytes (%) (Auto) 9 % (0-9) Eosinophils (%) (Auto) 2 % (0-3) Basophils (%) (Auto) 1 % (0-3) Neutrophils # (Auto) 7.1 x10^3uL (1.8-7.7) Lymphocytes # (Auto) 0.5 x10^3/uL (1.0-4.8) Monocytes # (Auto) 0.8 x10^3/uL (0.0-1.1) Eosinophils # (Auto) 0.2 x10^3/uL (0.0-0.7) Basophils # (Auto) 0.0 x10^3/uL (0.0-0.2) Prothrombin Time 15.3 SEC (11.7-14.0) Prothromb Time International Ratio 1.2 (0.8-1.1) Sodium Level 134 mmol/L (136-145) Potassium Level 3.1 mmol/L (3.5-5.1) Chloride Level 98 mmol/L (98-107) Carbon Dioxide Level 14 mmol/L (21-32) Anion Gap 22 (6-14) Blood Urea Nitrogen 75 mg/dL (7-20) Creatinine 8.3 mg/dL (0.6-1.0) Estimated GFR (Cockcroft-Gault) 4.9 Glucose Level 212 mg/dL (70-99) Calcium Level 7.6 mg/dL (8.5-10.1) Glucose (Fingerstick) 204 mg/dL (70-99) 80 mg/dL (70-99) Total Bilirubin 0.5 mg/dL (0.2-1.0) Direct Bilirubin 0.2 mg/dL (0.0-0.2) Aspartate Amino Transf (AST/SGOT) 35 U/L (15-37) Alanine Aminotransferase (ALT/SGPT) 28 U/L (14-59) Alkaline Phosphatase 231 U/L (46-116) Ammonia 144 mcmol/L (11-34) Total Protein 5.9 g/dL (6.4-8.2) Albumin 2.3 g/dL (3.4-5.0) Test 08/11/18 20:45 08/12/18 07:25 08/12/18 07:56 Glucose (Fingerstick) 161 mg/dL (70-99) 135 mg/dL (70-99) White Blood Count 7.8 x10^3/uL (4.0-11.0) Red Blood Count 2.91 x10^6/uL (3.50-5.40) Hemoglobin 8.7 g/dL (12.0-15.5) Hematocrit 26.0 % (36.0-47.0) Mean Corpuscular Volume 89 fL (79-100) Mean Corpuscular Hemoglobin 30 pg (25-35) Mean Corpuscular Hemoglobin Concent 33 g/dL (31-37) Red Cell Distribution Width 16.7 % (11.5-14.5) Platelet Count 115 x10^3/uL (140-400) Neutrophils (%) (Auto) 83 % (31-73) Lymphocytes (%) (Auto) 6 % (24-48) Monocytes (%) (Auto) 9 % (0-9) Eosinophils (%) (Auto) 2 % (0-3) Basophils (%) (Auto) 1 % (0-3) Neutrophils # (Auto) 6.4 x10^3uL (1.8-7.7) Lymphocytes # (Auto) 0.5 x10^3/uL (1.0-4.8) Monocytes # (Auto) 0.7 x10^3/uL (0.0-1.1) Eosinophils # (Auto) 0.1 x10^3/uL (0.0-0.7) Basophils # (Auto) 0.0 x10^3/uL (0.0-0.2) Laboratory Tests Test 08/11/18 16:39 08/11/18 20:40 08/11/18 20:45 08/12/18 07:25 Glucose (Fingerstick) 80 mg/dL (70-99) 161 mg/dL (70-99) Total Bilirubin 0.5 mg/dL (0.2-1.0) Direct Bilirubin 0.2 mg/dL (0.0-0.2) Aspartate Amino Transf (AST/SGOT) 35 U/L (15-37) Alanine Aminotransferase (ALT/SGPT) 28 U/L (14-59) Alkaline Phosphatase 231 U/L (46-116) Ammonia 144 mcmol/L (11-34) Total Protein 5.9 g/dL (6.4-8.2) Albumin 2.3 g/dL (3.4-5.0) White Blood Count 7.8 x10^3/uL (4.0-11.0) Red Blood Count 2.91 x10^6/uL (3.50-5.40) Hemoglobin 8.7 g/dL (12.0-15.5) Hematocrit 26.0 % (36.0-47.0) Mean Corpuscular Volume 89 fL (79-100) Mean Corpuscular Hemoglobin 30 pg (25-35) Mean Corpuscular Hemoglobin Concent 33 g/dL (31-37) Red Cell Distribution Width 16.7 % (11.5-14.5) Platelet Count 115 x10^3/uL (140-400) Neutrophils (%) (Auto) 83 % (31-73) Lymphocytes (%) (Auto) 6 % (24-48) Monocytes (%) (Auto) 9 % (0-9) Eosinophils (%) (Auto) 2 % (0-3) Basophils (%) (Auto) 1 % (0-3) Neutrophils # (Auto) 6.4 x10^3uL (1.8-7.7) Lymphocytes # (Auto) 0.5 x10^3/uL (1.0-4.8) Monocytes # (Auto) 0.7 x10^3/uL (0.0-1.1) Eosinophils # (Auto) 0.1 x10^3/uL (0.0-0.7) Basophils # (Auto) 0.0 x10^3/uL (0.0-0.2) Test 08/12/18 07:56 Glucose (Fingerstick) 135 mg/dL (70-99) Assessment/Plan Assessment/Plan IMP HYPOKALEMIA ESRD-MWF NON COMPLIANCE-SKIPPED LAST COUPLE HD TREATMENTS ANEMIA OF ESRD ESLD WITH ASCITES DUE TO DIAZ HX OF ESOPHAGEAL VARICES CHRONIC DIARRHEA PLAN HD TODAY UF TO DW - MINIMUM PRBC GIVEN ALREADY ARANESP ENC COMPLIANCE ALBUMIN WILL BE GIVEN WITH DIALYSIS PARACENTESIS AFTERWARDS AND THEN PROB D/C WILL FOLLOW NEEDED HUNG BREWSTER MD Aug 12, 2018 12:21
[2018-08-12] MEDS ORDERED: ALBUMIN HUMAN 25% 100 ML IV ONE ×6 (13:21→14:15)
[2018-08-12] MEDS ORDERED: LIDOCAINE WITH 8.4% SOD BICARB 3 ML DISP.SYRIN. ONE ×2 (13:28→13:29)
[2018-08-12] MEDS ORDERED: LIDOCAINE WITH 8.4% SOD BICARB 3 ML DISP.SYRIN. IJ ONE (13:45)
--- NOTE | 2018-08-12 13:57 | PDOC3 ---
Discharge Summary Visit Information Date of Admission: Aug 11, 2018 Date of Discharge: Aug 12, 2018 Admitting Diagnosis: ascites Final Diagnosis symptomatic anemia ESLD ascites ESRD hypokalemia weakness, debility, Brief Hospital Course Allergies Allergies Coded Allergies Type Severity Reaction Last Updated Verified Sulfa (Sulfonamide Antibiotics) Allergy Severe Swelling 04/24/18 Yes cephalexin Allergy Severe Anaphylaxis 05/22/18 Yes doxycycline Allergy Intermediate 04/24/18 Yes gabapentin Allergy Intermediate Anxiety 06/04/18 Yes insulin detemir Allergy Intermediate Rash 04/24/18 Yes morphine Allergy Intermediate rash 04/24/18 Yes niacin Allergy Intermediate Rash 04/24/18 Yes oxycodone Allergy Intermediate rash 04/24/18 Yes povidone-iodine Allergy Intermediate It 04/24/18 Yes rifaximin Allergy Intermediate Itching 04/24/18 Yes tramadol Allergy Intermediate Rash 04/24/18 Yes I S O L A T I O N *CONTACT* Allergy Unknown 04/24/18 Yes codeine Adverse Reaction Intermediate Nausea and Vomiting 04/24/18 Yes erythromycin base Adverse Reaction Intermediate Diarrhea 04/24/18 Yes Vital Signs Vital Signs Date Time Temp Pulse Resp B/P (MAP) Pulse Ox O2 Delivery O2 Flow Rate FiO2 08/12/18 13:49 103 16 126/60 (82) 100 Room Air 08/12/18 11:00 97.4 97.4 Lab Results Laboratory Tests Test 08/11/18 10:47 08/11/18 11:07 08/11/18 16:39 08/11/18 20:40 White Blood Count 8.7 x10^3/uL (4.0-11.0) Red Blood Count 2.35 x10^6/uL (3.50-5.40) Hemoglobin 6.9 g/dL (12.0-15.5) Hematocrit 21.4 % (36.0-47.0) Mean Corpuscular Volume 91 fL (79-100) Mean Corpuscular Hemoglobin 30 pg (25-35) Mean Corpuscular Hemoglobin Concent 33 g/dL (31-37) Red Cell Distribution Width 18.7 % (11.5-14.5) Platelet Count 146 x10^3/uL (140-400) Neutrophils (%) (Auto) 82 % (31-73) Lymphocytes (%) (Auto) 6 % (24-48) Monocytes (%) (Auto) 9 % (0-9) Eosinophils (%) (Auto) 2 % (0-3) Basophils (%) (Auto) 1 % (0-3) Neutrophils # (Auto) 7.1 x10^3uL (1.8-7.7) Lymphocytes # (Auto) 0.5 x10^3/uL (1.0-4.8) Monocytes # (Auto) 0.8 x10^3/uL (0.0-1.1) Eosinophils # (Auto) 0.2 x10^3/uL (0.0-0.7) Basophils # (Auto) 0.0 x10^3/uL (0.0-0.2) Prothrombin Time 15.3 SEC (11.7-14.0) Prothromb Time International Ratio 1.2 (0.8-1.1) Sodium Level 134 mmol/L (136-145) Potassium Level 3.1 mmol/L (3.5-5.1) Chloride Level 98 mmol/L (98-107) Carbon Dioxide Level 14 mmol/L (21-32) Anion Gap 22 (6-14) Blood Urea Nitrogen 75 mg/dL (7-20) Creatinine 8.3 mg/dL (0.6-1.0) Estimated GFR (Cockcroft-Gault) 4.9 Glucose Level 212 mg/dL (70-99) Calcium Level 7.6 mg/dL (8.5-10.1) Glucose (Fingerstick) 204 mg/dL (70-99) 80 mg/dL (70-99) Total Bilirubin 0.5 mg/dL (0.2-1.0) Direct Bilirubin 0.2 mg/dL (0.0-0.2) Aspartate Amino Transf (AST/SGOT) 35 U/L (15-37) Alanine Aminotransferase (ALT/SGPT) 28 U/L (14-59) Alkaline Phosphatase 231 U/L (46-116) Ammonia 144 mcmol/L (11-34) Total Protein 5.9 g/dL (6.4-8.2) Albumin 2.3 g/dL (3.4-5.0) Test 08/11/18 20:45 08/12/18 07:25 08/12/18 07:56 08/12/18 10:51 Glucose (Fingerstick) 161 mg/dL (70-99) 135 mg/dL (70-99) White Blood Count 7.8 x10^3/uL (4.0-11.0) Red Blood Count 2.91 x10^6/uL (3.50-5.40) Hemoglobin 8.7 g/dL (12.0-15.5) Hematocrit 26.0 % (36.0-47.0) Mean Corpuscular Volume 89 fL (79-100) Mean Corpuscular Hemoglobin 30 pg (25-35) Mean Corpuscular Hemoglobin Concent 33 g/dL (31-37) Red Cell Distribution Width 16.7 % (11.5-14.5) Platelet Count 115 x10^3/uL (140-400) Neutrophils (%) (Auto) 83 % (31-73) Lymphocytes (%) (Auto) 6 % (24-48) Monocytes (%) (Auto) 9 % (0-9) Eosinophils (%) (Auto) 2 % (0-3) Basophils (%) (Auto) 1 % (0-3) Neutrophils # (Auto) 6.4 x10^3uL (1.8-7.7) Lymphocytes # (Auto) 0.5 x10^3/uL (1.0-4.8) Monocytes # (Auto) 0.7 x10^3/uL (0.0-1.1) Eosinophils # (Auto) 0.1 x10^3/uL (0.0-0.7) Basophils # (Auto) 0.0 x10^3/uL (0.0-0.2) Hepatitis B Surface Antigen Nonreactive (Nonreactive) Test 08/12/18 12:18 Glucose (Fingerstick) 123 mg/dL (70-99) Laboratory Tests Test 08/11/18 16:39 08/11/18 20:40 08/11/18 20:45 08/12/18 07:25 Glucose (Fingerstick) 80 mg/dL (70-99) 161 mg/dL (70-99) Total Bilirubin 0.5 mg/dL (0.2-1.0) Direct Bilirubin 0.2 mg/dL (0.0-0.2) Aspartate Amino Transf (AST/SGOT) 35 U/L (15-37) Alanine Aminotransferase (ALT/SGPT) 28 U/L (14-59) Alkaline Phosphatase 231 U/L (46-116) Ammonia 144 mcmol/L (11-34) Total Protein 5.9 g/dL (6.4-8.2) Albumin 2.3 g/dL (3.4-5.0) White Blood Count 7.8 x10^3/uL (4.0-11.0) Red Blood Count 2.91 x10^6/uL (3.50-5.40) Hemoglobin 8.7 g/dL (12.0-15.5) Hematocrit 26.0 % (36.0-47.0) Mean Corpuscular Volume 89 fL (79-100) Mean Corpuscular Hemoglobin 30 pg (25-35) Mean Corpuscular Hemoglobin Concent 33 g/dL (31-37) Red Cell Distribution Width 16.7 % (11.5-14.5) Platelet Count 115 x10^3/uL (140-400) Neutrophils (%) (Auto) 83 % (31-73) Lymphocytes (%) (Auto) 6 % (24-48) Monocytes (%) (Auto) 9 % (0-9) Eosinophils (%) (Auto) 2 % (0-3) Basophils (%) (Auto) 1 % (0-3) Neutrophils # (Auto) 6.4 x10^3uL (1.8-7.7) Lymphocytes # (Auto) 0.5 x10^3/uL (1.0-4.8) Monocytes # (Auto) 0.7 x10^3/uL (0.0-1.1) Eosinophils # (Auto) 0.1 x10^3/uL (0.0-0.7) Basophils # (Auto) 0.0 x10^3/uL (0.0-0.2) Test 08/12/18 07:56 08/12/18 10:51 08/12/18 12:18 Glucose (Fingerstick) 135 mg/dL (70-99) 123 mg/dL (70-99) Hepatitis B Surface Antigen Nonreactive (Nonreactive) Brief Hospital Course Ms. Nguyen is a 62 old female, ESLD, sent up from IR, could not paracentese, hgb < 7, K+ low lytes replaed, HD done 1 u PRBC given, symptoms better paracentesis before DC prognosis poor, pt seems poorly aware Discharge Information Condition at Discharge: Improved Follow Up: Weeks Disposition/Orders: D/C to Home Scheduled Calcium Acetate (Calcium Acetate) 667 Mg Tablet, 667 MG PO TIDWMEALS for DIALYSIS PATIENTS, (Reported) Entered as Reported by: VIKAS LEYVA on 07/03/18912 Last Action: Converted on 08/12/18955 by BENJAMIN POOL Cyclobenzaprine Hcl (Cyclobenzaprine Hcl) 5 Mg Tablet, 1 TAB PO TID for muscle spasms, #30 (Reported) Entered as Reported by: LORETTA SILVERIO on 06/10/18954 Last Action: Converted on 08/12/18955 by BENJAMIN POOL Diphenhydramine Hcl (Benadryl) 25 Mg Capsule, 25 MG PO Q6HRS for itching, (Reported) Entered as Reported by: SUMAYA PAYNE on 08/12/18 0143 Last Action: Continued on 08/12/18955 by BENJAMIN POOL Folic Acid/Vitamin B Comp W-C (Dialyvite Tablet) 1 Each Tablet, 1 EACH PO DAILY for after dialysis on dialysis day, (Reported) Entered as Reported by: VIKAS LEYVA on 07/03/18912 Last Action: Converted on 08/12/18955 by BENJAMIN POOL Insulin Aspart (Novolog Flexpen) 100 Unit/1 Ml Insuln.pen, 0 SQ TIDAC for DM, (Reported) ssi Entered as Reported by: ARA WIN on 06/02/13 1013 Last Action: Converted on 08/12/18955 by BENJAMIN POOL Insulin Glargine,Hum.rec.anlog (Lantus Solostar) 100 Unit/1 Ml Insuln.pen, 0 SQ HS for DM, (Reported) SSI Entered as Reported by: STEPHANIE CHAPMAN on 06/10/13 1021 Last Action: Continued on 08/12/18955 by BENJAMIN POOL Lactulose (Lactulose) 20 Gm/30 Ml Solution, 20 GM PO TID, (Reported) Entered as Reported by: GREY DUBOIS on 08/03/15 0729 Last Action: Continued on 08/12/18955 by BENJAMIN POOL Levothyroxine Sodium (Synthroid) 25 Mcg Tablet, 300 MCG PO DAILY, (Reported) Entered as Reported by: ARA WIN on 06/02/13 1013 Last Action: Converted on 08/12/18955 by BENJAMIN POOL Midodrine Hcl (Midodrine Hcl) 5 Mg Tablet, 5 MG PO TID for bp, (Reported) Entered as Reported by: GREY DUBOIS on 06/25/18 1045 Last Action: Converted on 08/12/18955 by BENJAMIN POOL Omeprazole (Omeprazole) 40 Mg Capsule.dr, 1 CAP PO DAILY for gerd, #30 Ref 3 (Reported) Entered as Reported by: Rehana Joshi on 05/01/18 0900 Last Action: Converted on 08/12/18955 by BENJAMIN POOL Rifaximin (Xifaxan) 550 Mg Tablet, 1 TAB PO BID, #28 (Reported) Entered as Reported by: LORETTA SILVERIO on 02/07/18 0905 Last Action: Continued on 08/12/18955 by BENJAMIN POOL Scheduled PRN Albuterol Sulfate (Albuterol Sulfate Conc Neb Soln) 2.5 Mg/0.5 Ml Vial.neb, 2.5 MG NEB Q6HRS PRN for SHORTNESS OF BREATH, Ref 0 (Reported) Entered as Reported by: GREY DUBOIS on 08/03/15 0729 Last Action: Converted on 08/12/18955 by BENJAMIN POOL Miscellaneous Medications Albuterol Sulfate (Albuterol Sulfate Hfa Inhaler) 8.5 Gm Hfa.aer.ad, 8.5 GM IH, (Reported) Entered as Reported by: ARA WIN on 06/02/13 1013 Last Action: Continued on 08/12/18955 by BENJAMIN POOL Calcium Carbonate/Vitamin D3 (Calcium + Vitamin D Tablet) 1 Each Tablet, 1 EACH PO, (Reported) Entered as Reported by: ARA WIN on 06/02/13 1013 Fluticasone Propionate (Flovent 110MCG Hfa) 12 Gm Aer.w.adap, 12 GM IH, (Reported) Entered as Reported by: ARA WIN on 06/02/13 1013 Iron,Fum&Ps/Fa/Vit B&C#18/L.ca (Fusion Plus Capsule) 1 Each Capsule, 1 EACH PO, (Reported) Entered as Reported by: LORETTA SILVERIO on 05/09/17 0740 Patient Instructions Patient Instructions < 30 face to face BENJAMIN POOL MD Aug 12, 2018 13:57
[2018-08-12] MEDS ORDERED: CYCLOBENZAPRINE 10 MG TABLET. PO SCH (14:00)
[2018-08-12] MEDS ORDERED: LACTULOSE 20 GM/30 ML SOLUTION. PO SCH (14:00)
--- NOTE | 2018-08-12 14:50 | RAD ---
Procedure: Ultrasound guided paracentesis Clinical Indication: 62-year-old with recurrent abdominal ascites Sedation: Local anesthesia only Antibiotics: None Fluoro Time: None Contrast: Not applicable Sterility: The procedure was performed in its entirety using appropriate elements of sterile technique. Consent: The procedure was explained in its entirety to the patient or the patients designated bilingual sales representative by a member of the treatment team, including a discussion of the risks, benefits and commonly accepted alternatives to the procedure, as well as the expected consequences of no therapy whatsoever. Discussion of the risks included, but was not limited to, those that are most frequent and those that are rare but possibly severe or life-threatening, as well as the possibility of unforeseen complications. Technique and Findings: Following informed consent, the patient was prepped and draped in the usual sterile fashion. Ultrasound interrogation of the abdomen revealed abdominal ascites. A hard copy ultrasound image was recorded. 1% Lidocaine was used to achieve local anesthesia over the area of interest, and a 6 Tong[place] Felf-V-Ccfpkiep catheter was advanced into the peritoneal cavity under ultrasound guidance. 17398 cc of thin smitha ascites was then withdrawn. The catheter was removed and hemostasis was achieved with manual compression. Complications: No immediate Impression: 1. Ultrasound-guided paracentesis as described
[2018-08-12] MEDS: rifAXIMin 550 MG TABLET PO SCH (15:13)
--- NOTE | 2018-08-12 15:30 | NUR ---
1300 dose of midrione given early [address] Strickland
[2018-08-12] MEDS ORDERED: HEPARIN PF 500 UNIT/5 ML DISP.SYRIN. IV ONE (16:15)
--- NOTE | 2018-08-12 16:44 | NUR ---
Discharge Note: YANIRA BRAVO Discharge instructions and discharge home medications reviewed with Patient and a copy given. All questions have been answered and understanding verbalized. The following instructions and handouts were given: anemia Discontinued lines and drains: Port A Cath intact. Patient discharged to Home or Self Care withFamily Membervia Wheelchair escorted to ED entrance by Aron CRAFT
[2018-08-12] MEDS ORDERED: INSULIN GLARGINE 300 UNITS/3 ML INSULN.PEN. SQ SCH (21:00)
[2018-08-12] MEDS ORDERED: rifAXIMin 550 MG TABLET PO SCH (21:00)
[2018-08-12] MEDS ORDERED: DARBEPOETIN ALFA 60 MCG/0.3 ML DISP.SYRIN. SQ ONE (21:00)
[2018-08-13] MEDS ORDERED: NON FORMULARY ITEM (Omeprazole 1 CAP) PO SCH (09:00)
[2018-10-01] MEDS ORDERED: LEVO500T59 PO (09:59)
== END 2018-08-12 16:45 | disposition home or self-care (01) | DRG 441 ==
LOC: INTRAD 10:11 → 5 NORTH 14:11
PROVIDERS: ADMIT Internal Medicine; ATTEND Internal Medicine Gastroenterology
PROC: 30233N1 Transfusion of Nonautologous Red Blood Cells into Peripheral Vein, Percutaneous Approach (ICD-10-PCS; principal; 2018-08-11)
PROC: 0W9G3ZZ Drainage of Peritoneal Cavity, Percutaneous Approach (ICD-10-PCS; 2018-08-11)
PROC: 5A1D70Z Performance of Urinary Filtration, Intermittent, Less than 6 Hours Per Day (ICD-10-PCS; 2018-08-11)
DX: K72.90 Hepatic failure, unspecified without coma (principal); N18.6 End stage renal disease; I12.0 Hypertensive chronic kidney disease with stage 5 chronic kidney disease or end stage renal disease; R18.8 Other ascites; E87.6 Hypokalemia; E11.22 Type 2 diabetes mellitus with diabetic chronic kidney disease; K75.81 Nonalcoholic steatohepatitis (NASH); J44.9 Chronic obstructive pulmonary disease, unspecified; Z88.6 Allergy status to analgesic agent; Z88.1 Allergy status to other antibiotic agents; Z88.2 Allergy status to sulfonamides; Z88.8 Allergy status to other drugs, medicaments and biological substances; D63.1 Anemia in chronic kidney disease; E03.9 Hypothyroidism, unspecified; E78.5 Hyperlipidemia, unspecified; F17.210 Nicotine dependence, cigarettes, uncomplicated; F32.9 Major depressive disorder, single episode, unspecified; F41.9 Anxiety disorder, unspecified; F91.9 Conduct disorder, unspecified; K21.9 Gastro-esophageal reflux disease without esophagitis; K52.9 Noninfective gastroenteritis and colitis, unspecified; K64.9 Unspecified hemorrhoids; M19.90 Unspecified osteoarthritis, unspecified site; K74.60 Unspecified cirrhosis of liver; K80.20 Calculus of gallbladder without cholecystitis without obstruction; Z82.3 Family history of stroke; Z83.3 Family history of diabetes mellitus; Z90.710 Acquired absence of both cervix and uterus; Z91.19 Patient's noncompliance with other medical treatment and regimen; Z99.2 Dependence on renal dialysis
CPT/HCPCS: 36415; 49083; 80048; 80076; 82140; 82962; 85025; 85610; 86850; 86900; 86901; 86902; 86922; 87045; 87340; A4215; C1729; C1894; J1815; P9016; P9046

== ENCOUNTER 2018-08-22 08:44 | Outpatient (CLI) | payer OTHER ==
[~2018-08-22] VITALS: Ht 162.6 cm; Wt 90.7 kg
[2018-08-22] VITALS (10 sets, daily range): BP systolic 104–129; BP diastolic 38–64
[~2018-08-22 08:44] MED LIST changes: +DIPH25CA58 PO
[2018-08-22] MEDS ORDERED: ALBUMIN HUMAN 25% 200 ML IV ONE (10:11)
[2018-08-22] MEDS ORDERED: LIDOCAINE WITH 8.4% SOD BICARB 3 ML DISP.SYRIN. ONE (10:24)
[2018-08-22] MEDS ORDERED: ALBUMIN HUMAN 25% 100 ML IV ONE ×6 (10:45→11:38)
[2018-08-22] MEDS ORDERED: LIDOCAINE WITH 8.4% SOD BICARB 3 ML DISP.SYRIN. INJ ONE (10:45)
--- NOTE | 2018-08-22 12:55 | NUR ---
Discharge Note: YANIRA BRAVO Discharge instructions and discharge home medications reviewed with Patient and a copy given. All questions have been answered and understanding verbalized. Patient ate soup and tolerated well. The following instructions and handouts were given: Paracentesis. Discontinued lines and drains: right chest slava cath de-accessed, dressing clean dry intact. Patient discharged to home with daughter via wheelchair. Patient states she is going straight to dialysis.
--- NOTE | 2018-08-22 15:27 | RAD ---
Ultrasound-guided paracentesis 08/01/2018 2:44 PM Procedure: The risks and benefits of the procedure were discussed the patient. Informed consent was obtained. A timeout procedure was performed. Sonographic evaluation of the abdomen was performed demonstrating ascites . The right lower quadrant was prepped and draped using maximum sterile barrier technique. 1% lidocaine without epinephrine was administered for local anesthesia. Real-time ultrasonographic guidance was used in passing a 5 [place] Yueh catheter into the fluid collection. This is exchanged for an 8 [place] drainage catheter. 15.7 L of serous ascites was removed. The catheter was removed and pressure held to achieve hemostasis. A sterile dressing was applied. Impression: Successful ultrasound-guided paracentesis
== END 2018-08-22 12:45 | disposition home or self-care (01) ==
LOC: INTRAD 08:44
PROVIDERS: ATTEND Internal Medicine Gastroenterology
DX: R18.8 Other ascites (principal); K74.60 Unspecified cirrhosis of liver; Z88.2 Allergy status to sulfonamides; Z88.1 Allergy status to other antibiotic agents; Z88.5 Allergy status to narcotic agent; Z88.6 Allergy status to analgesic agent; Z88.8 Allergy status to other drugs, medicaments and biological substances
CPT/HCPCS: 49083; A4215; C1729; C1894; P9046

== ENCOUNTER 2018-08-28 09:13 | Outpatient (CLI) | payer OTHER ==
[~2018-08-28] VITALS: Ht 162.6 cm; Wt 90.7 kg
[2018-08-28 10:09] VITALS: BP 101/76
[2018-08-28] MEDS ORDERED: ALBUMIN HUMAN 25% 100 ML IV ONE ×6 (10:46→11:45)
[2018-08-28 11:30] VITALS: BP 98/36
[2018-08-28] MEDS ORDERED: LIDOCAINE WITH 8.4% SOD BICARB 3 ML DISP.SYRIN. IJ ONE (11:30)
[2018-08-28 11:45] VITALS: BP 98/38
[2018-08-28 12:00] VITALS: BP 92/30
[2018-08-28 12:15] VITALS: BP 89/33
--- NOTE | 2018-08-28 12:54 | NUR ---
Discharge Note: YANIRA BRAVO Discharge instructions and discharge home medications reviewed with Patient and a copy given. All questions have been answered and understanding verbalized. Patient ate lunch well with no issues. The following instructions and handouts were given: Paracentesis Discontinued lines and drains: Pete cath to right chest de-accessed, dressing clean dry intact. Patient discharged to home with son and daughter via wheelchair in private vehicle.
--- NOTE | 2018-08-28 15:11 | RAD ---
Ultrasound-guided paracentesis 08/28/2018 3:07 PM Procedure: The risks and benefits of the procedure were discussed the patient. Informed consent was obtained. A timeout procedure was performed. Sonographic evaluation of the abdomen was performed demonstrating ascites . The right lower quadrant was prepped and draped using maximum sterile barrier technique. 1% lidocaine without epinephrine was administered for local anesthesia. Real-time ultrasonographic guidance was used in passing a 5 Spanish Yueh catheter into the fluid collection. This is exchanged for an 8 Spanish drainage catheter. 13 L of serous ascites was removed. The catheter was removed and pressure held to achieve hemostasis. A sterile dressing was applied. Impression: Successful ultrasound-guided paracentesis
== END 2018-08-28 12:45 | disposition home or self-care (01) ==
LOC: INTRAD 09:13
PROVIDERS: ATTEND Internal Medicine Gastroenterology
DX: R18.8 Other ascites (principal); K74.60 Unspecified cirrhosis of liver; Z88.2 Allergy status to sulfonamides; Z88.1 Allergy status to other antibiotic agents; Z88.5 Allergy status to narcotic agent; Z88.6 Allergy status to analgesic agent; Z88.8 Allergy status to other drugs, medicaments and biological substances
CPT/HCPCS: 49083; C1729; C1769; C1894; P9046

== ENCOUNTER 2018-09-04 09:06 | Inpatient (IN) | payer OTHER ==
[~2018-09-04] VITALS: Ht 162.6 cm; Wt 78.0 kg
--- NOTE | 2018-09-04 09:40 | PHYS DOC ---
Past Medical History Past Medical History: COPD, Diabetes-Type II, Liver Disease, Renal Disease, Renal Failure, Other Additional Past Medical Histor: neuropathy,gallstones,non etoh cirossis (KOLE AKERS APRN) Past Surgical History: Hysterectomy, Other Additional Past Surgical Histo: esophogeal banding after esoph. varacies. PORT PLACEMENT R CHEST (KOLE AKERS APRN) Alcohol Use: None Drug Use: None (KOLE AKERS APRN) Adult General Chief Complaint Chief Complaint: KNEE INJURY HPI HPI Patient is a 62 year old female with history of diabetes, cirrhosis of the liver, end-stage renal disease on dialysis Saturday, Saturday, Saturday last dialyzed on Saturday who presents today complaining of moderate pain to the left knee that began yesterday after she fell. She states her legs gave out and she fell. Denies any loss of consciousness when she fell. Hard to get a good history of present illness because patient is yelling stating why are we asking her all this questions. (KOLE AKERS APRN) Review of Systems Review of Systems Constitutional: Denies fever or chills [] Eyes: Denies change in visual acuity, redness, or eye pain [] HENT: Denies nasal congestion or sore throat [] Respiratory: Denies cough or shortness of breath [] Cardiovascular: No additional information not addressed in HPI [] GI: Denies abdominal pain, nausea, vomiting, bloody stools or diarrhea [] : Denies dysuria or hematuria [] Musculoskeletal: Reports left knee pain Integument: Denies rash or skin lesions [] Neurologic: Denies headache, focal weakness or sensory changes [] All other systems were reviewed and found to be within normal limits, except as documented in this note. (KOLE AKERS APRN) Allergies Allergies Allergies Coded Allergies Type Severity Reaction Last Updated Verified Sulfa (Sulfonamide Antibiotics) Allergy Severe Swelling 04/24/18 Yes cephalexin Allergy Severe Anaphylaxis 05/22/18 Yes doxycycline Allergy Intermediate 04/24/18 Yes gabapentin Allergy Intermediate Anxiety 06/04/18 Yes insulin detemir Allergy Intermediate Rash 04/24/18 Yes morphine Allergy Intermediate rash 04/24/18 Yes niacin Allergy Intermediate Rash 04/24/18 Yes oxycodone Allergy Intermediate rash 04/24/18 Yes povidone-iodine Allergy Intermediate It 04/24/18 Yes tramadol Allergy Intermediate Rash 04/24/18 Yes I S O L A T I O N *CONTACT* Allergy Unknown 04/24/18 Yes codeine Adverse Reaction Intermediate Nausea and Vomiting 04/24/18 Yes erythromycin base Adverse Reaction Intermediate Diarrhea 04/24/18 Yes (LAWRENCE ARIAS DO) Physical Exam Physical Exam Constitutional: Well developed, well nourished, no acute distress, non-toxic appearance. [] HENT: Normocephalic, atraumatic, bilateral external ears normal, oropharynx moist, no oral exudates, nose normal. [] Eyes: PERRLA, EOMI, conjunctiva normal, no discharge. [] Neck: Normal range of motion, no tenderness, supple, no stridor. [] Cardiovascular:Heart rate regular rhythm, no murmur [] Lungs & Thorax: Bilateral breath sounds clear to auscultation [] Abdomen: Rounded abdomen consistent with cirrhosis. Bowel sounds normal, soft, no tenderness, no masses, no pulsatile masses. [] Skin: Warm, dry, no erythema, no rash. [] Back: No tenderness, no CVA tenderness. [] Extremities: Left knee with no obvious deformity. Tenderness on the medial as well as lateral aspect of the knee. Full passive range of motion to the left knee. +2 left pedal pulse. Cap refill less than 2 seconds left toes. Neurologic: Alert and oriented X 3, normal motor function, normal sensory function, no focal deficits noted. [] Psychologic: Affect normal, judgement normal, mood normal. [] (KOLE AKERS APRN) Current Patient Data Vital Signs Vital Signs Date Time Temp Pulse Resp B/P (MAP) Pulse Ox O2 Delivery O2 Flow Rate FiO2 09/04/18 12:00 90 93/47 (62) 96 Room Air 09/04/18 09:06 98.5 20 98.5 (LAWRENCE ARIAS DO) EKG EKG [] (KOEL AKERS APRN) Radiology/Procedures Radiology/Procedures PROCEDURE: CT LOWER EXTREMITY WO LEFT INDICATION: Trauma with pain in the knee COMPARISON: Plain film from earlier same day TECHNIQUE: Axial CT images obtained through the left knee without contrast. One or more of the following individualized dose reduction techniques were utilized for this examination: 1. Automated exposure control; 2. Adjustment of the mA and/or kV according to patient size; 3. Use of iterative reconstruction technique. FINDINGS: No evidence of dislocation. There are some degenerative changes the knee with osteophyte formation. Calcific atherosclerosis. Patchy regions of osseous demineralization including a confluent region within the proximal tibia. Large joint effusion with portions of it high density concerning for blood. At the distal femoral diaphysis there is an apparent cortical step-off on the sagittal images but this is in a region of motion which is the most likely cause. There is some indentation of the anterior aspect of the lateral tibial plateau with a lucency in the area. Edema of the soft tissues. Mild anterior indentation of the medial femoral condyle as well as mild indentation of the lateral femoral condyle. This is a very mild finding and could be the patient's baseline but mild impaction injuries of unknown age are within the differential. There is a small ossification in the intercondylar notch of the distal femur laterally. Tiny osseous excrescence off of the medial femur distally. IMPRESSION: 1. Large joint effusion is identified concerning for lipohemarthrosis. 2. There is some indentation identified at the lateral tibial plateau with a lucency seen within the region. Given the presence of lipohemarthrosis it is possible that this is secondary to a fracture however limited evaluation secondary to a region of osseous demineralization most confluent within the proximal tibia. The osseous demineralization could be from benign osteopenia however a marrow infiltrative lesion is within the differential given that this finding is more prominent than typically seen and if further characterization is desired MRI could further evaluate to assess for an underlying lesion and fracture. 3. There is a large amount of edema seen within the soft tissues. 4. Calcific atherosclerosis. 5. Degenerative changes throughout the knee. 6. Tiny ossific density is seen within the intercondylar notch. Could be a calcification of the soft tissues but causes such as a small avulsion injury at anterior cruciate ligament is not excluded given this finding. Electronically signed by: Jane Joy MD (09/04/2018 11:06 AM) [facility] DICTATED and SIGNED BY: JANE JOY MD DATE: 09/04/18 1106 []PROCEDURE: CT LOWER EXTREMITY WO LEFT INDICATION: Trauma with pain in the knee COMPARISON: Plain film from earlier same day TECHNIQUE: Axial CT images obtained through the left knee without contrast. One or more of the following individualized dose reduction techniques were utilized for this examination: 1. Automated exposure control; 2. Adjustment of the mA and/or kV according to patient size; 3. Use of iterative reconstruction technique. FINDINGS: No evidence of dislocation. There are some degenerative changes the knee with osteophyte formation. Calcific atherosclerosis. Patchy regions of osseous demineralization including a confluent region within the proximal tibia. Large joint effusion with portions of it high density concerning for blood. At the distal femoral diaphysis there is an apparent cortical step-off on the sagittal images but this is in a region of motion which is the most likely cause. There is some indentation of the anterior aspect of the lateral tibial plateau with a lucency in the area. Edema of the soft tissues. Mild anterior indentation of the medial femoral condyle as well as mild indentation of the lateral femoral condyle. This is a very mild finding and could be the patient's baseline but mild impaction injuries of unknown age are within the differential. There is a small ossification in the intercondylar notch of the distal femur laterally. Tiny osseous excrescence off of the medial femur distally. IMPRESSION: 1. Large joint effusion is identified concerning for lipohemarthrosis. 2. There is some indentation identified at the lateral tibial plateau with a lucency seen within the region. Given the presence of lipohemarthrosis it is possible that this is secondary to a fracture however limited evaluation secondary to a region of osseous demineralization most confluent within the proximal tibia. The osseous demineralization could be from benign osteopenia however a marrow infiltrative lesion is within the differential given that this finding is more prominent than typically seen and if further characterization is desired MRI could further evaluate to assess for an underlying lesion and fracture. 3. There is a large amount of edema seen within the soft tissues. 4. Calcific atherosclerosis. 5. Degenerative changes throughout the knee. 6. Tiny ossific density is seen within the intercondylar notch. Could be a calcification of the soft tissues but causes such as a small avulsion injury at anterior cruciate ligament is not excluded given this finding. Electronically signed by: Jane Joy MD (09/04/2018 11:06 AM) [facility] DICTATED and SIGNED BY: JANE JOY MD DATE: 09/04/18 1106 (KOLE AKERS APRN) Course & Med Decision Making Course & Med Decision Making Pertinent Labs and Imaging studies reviewed. (See chart for details) This is a 62-year-old female patient presenting to the ED today with left knee pain. Patient fell yesterday. Blood pressure and arrival to the ED 89/45. From previous visits, patient has had hypotension with low BPs 80s over 40s- 50s being her baseline. Repeat BP 92/49 Left knee x-rays were concerning for internal injury to the knee, see x-ray results. CT of the left knee was also ordered, CT results documented in the chart. I spoke to Dr. Rivers- he requested we put patient in a knee immobilizer send her home and she can follow-up in the clinic. I talked to patient and daughter, this states this patient cannot go home because she used to ambulate until yesterday when she fell down, she unfortunately lives in a high-rise building on the second floor and is not able to go up steps and there is nobody at home who can help her go up steps. They are requesting placement. Consulted with Dr. Infante who accepted patient for admission. Patient admitted in stable condition. She is apparently supposed to have paracentesis today. Routine GI consult placed Nephrology was also consulted (KOLE AKERS APRN) Dragon Disclaimer Dragon Disclaimer This electronic medical record was generated, in whole or in part, using a voice recognition dictation system. 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 I was available for consultation as needed during the patient's visit in the emergency department. I agree with the clinical impression, plan, and disposition. (LAWRENCE ARIAS DO) Problem Qualifiers Primary Impression: Cirrhosis Hepatic cirrhosis type: unspecified hepatic cirrhosis Ascites presence: with ascites Qualified Codes: K74.60 - Unspecified cirrhosis of liver; R18.8 - Other ascites Additional Impressions: Fall Encounter type: initial encounter Qualified Codes: W19.XXXA - Unspecified fall, initial encounter Hypotension Hypotension type: unspecified hypotension type Qualified Codes: I95.9 - Hypotension, unspecified KOLE AKERS APRN September 04, 2018 09:40 LAWRENCE ARIAS DO September 05, 2018 13:24
--- NOTE | 2018-09-04 09:44 | RAD ---
INDICATION: Status post fall with knee pain COMPARISON: None. IMPRESSION: Left knee: 3 views obtained. No evidence of dislocation. Mild indentation of femoral condyle on lateral view. This is a mild finding and could be the patient's baseline appearance but if there is point tenderness in the region an impaction injury is possible. There is also a small ossific density seen adjacent to the medial femoral condyle. If there is point tenderness in the region causes such as a small avulsion injury is possible. This could also just be secondary to some mild calcifications within the soft tissues. On the lateral view there is a lucency seen projecting over the proximal tibia. Could be related to the growth plate as well as overlap with the fibula but given the suspected joint effusion and the patient's trauma would correlate with point tenderness to exclude alternative causes such as a nondisplaced fracture and if unclear clinically cross-sectional imaging could BE obtained. Calcific atherosclerosis. There is a suspected moderate knee joint effusion as well as edema within Hoffa's fat pad. Electronically signed by: Alexis Ayala MD (09/04/2018 9:41 AM) [facility]
--- NOTE | 2018-09-04 11:09 | RAD ---
INDICATION: Trauma with pain in the knee COMPARISON: Plain film from earlier same day TECHNIQUE: Axial CT images obtained through the left knee without contrast. One or more of the following individualized dose reduction techniques were utilized for this examination: 1. Automated exposure control; 2. Adjustment of the mA and/or kV according to patient size; 3. Use of iterative reconstruction technique. FINDINGS: No evidence of dislocation. There are some degenerative changes the knee with osteophyte formation. Calcific atherosclerosis. Patchy regions of osseous demineralization including a confluent region within the proximal tibia. Large joint effusion with portions of it high density concerning for blood. At the distal femoral diaphysis there is an apparent cortical step-off on the sagittal images but this is in a region of motion which is the most likely cause. There is some indentation of the anterior aspect of the lateral tibial plateau with a lucency in the area. Edema of the soft tissues. Mild anterior indentation of the medial femoral condyle as well as mild indentation of the lateral femoral condyle. This is a very mild finding and could be the patient's baseline but mild impaction injuries of unknown age are within the differential. There is a small ossification in the intercondylar notch of the distal femur laterally. Tiny osseous excrescence off of the medial femur distally. IMPRESSION: 1. Large joint effusion is identified concerning for lipohemarthrosis. 2. There is some indentation identified at the lateral tibial plateau with a lucency seen within the region. Given the presence of lipohemarthrosis it is possible that this is secondary to a fracture however limited evaluation secondary to a region of osseous demineralization most confluent within the proximal tibia. The osseous demineralization could be from benign osteopenia however a marrow infiltrative lesion is within the differential given that this finding is more prominent than typically seen and if further characterization is desired MRI could further evaluate to assess for an underlying lesion and fracture. 3. There is a large amount of edema seen within the soft tissues. 4. Calcific atherosclerosis. 5. Degenerative changes throughout the knee. 6. Tiny ossific density is seen within the intercondylar notch. Could be a calcification of the soft tissues but causes such as a small avulsion injury at anterior cruciate ligament is not excluded given this finding. Electronically signed by: Alexis Ayala MD (09/04/2018 11:06 AM) [facility]
--- NOTE | 2018-09-04 11:47 | PDOC1 ---
History and Physical Date of Admission Date of Admission DATE: 09/04/18 TIME: 11:47 Identification/Chief Complaint Chief Complaint SEEN IN ER , last dialyzed on Saturday who presents today complaining of moderate pain to the left knee that began 09/03 after she fell. She states her legs gave out and she fell. Denies any loss of consciousness when she fell. IT IS DIFFICULT to get a good history of present illness Past Medical History Past Medical History Past Medical History Cardiovascular: HTN, Hyperlipidemia Pulmonary: Asthma, COPD CENTRAL NERVOUS SYSTEM: Other GI: Constipation, GERD, GI bleed, Gastritis, Hemorrhoids, Other Heme/Onc: Anemia NOS Hepatobiliary: Cirrhosis Psych: Anxiety, Depression Musculoskeletal: Osteoarthritis Renal/: Acute renal failure, UTI, Urinary Incontinence Endocrine: Diabetes, Hypothyroidism, Hyperparathyroidism Past Surgical History Past Surgical History: Cataract Removal, Tonsillectomy, Hysterectomy, Other Family History Family History: High Cholestrol, Family History Unknown Social History ALCOHOL: none Drugs: None Cardiovascular: HTN, Hyperlipidemia Pulmonary: Asthma, COPD CENTRAL NERVOUS SYSTEM: Other GI: Constipation, GERD, GI bleed, Gastritis, Hemorrhoids, Other Heme/Onc: Anemia NOS Hepatobiliary: Cirrhosis Psych: Anxiety, Depression Musculoskeletal: Osteoarthritis Renal/: Acute renal failure, Chronic renal failure, UTI, Urinary Incontinence Endocrine: Diabetes, Hypothyroidism, Hyperparathyroidism Past Surgical History Past Surgical History: Cataract Removal, Tonsillectomy, Hysterectomy, Other Family History Family History: High Cholestrol, Hypertension, Family History Unknown Social History Smoke: No ALCOHOL: none Drugs: None Current Medications Current Medications Active Scripts Active Reported Benadryl (Diphenhydramine Hcl) 25 Mg Capsule 25 Mg PO Q6HRS Calcium Acetate 667 Mg Tablet 667 Mg PO TIDWMEALS Dialyvite Tablet (Folic Acid/Vitamin B Comp W-C) 1 Each Tablet 1 Each PO DAILY Midodrine Hcl 5 Mg Tablet 5 Mg PO TID Cyclobenzaprine Hcl 5 Mg Tablet 1 Tab PO TID Omeprazole 40 Mg Capsule. 1 Cap PO DAILY Xifaxan (Rifaximin) 550 Mg Tablet 1 Tab PO BID Fusion Plus Capsule (Iron,Fum&Ps/Fa/Vit B&C#18/L.ca) 1 Each Capsule 1 Each PO Albuterol Sulfate Conc Neb Soln (Albuterol Sulfate) 2.5 Mg/0.5 Ml Vial.neb 2.5 Mg NEB Q6HRS PRN Lactulose 20 Gm/30 Ml Solution 20 Gm PO TID Lantus Solostar (Insulin Glargine,Hum.rec.anlog) 100 Unit/1 Ml Insuln.pen 0 SQ HS SSI Calcium + Vitamin D Tablet (Calcium Carbonate/Vitamin D3) 1 Each Tablet 1 Each PO Albuterol Sulfate Hfa Inhaler (Albuterol Sulfate) 8.5 Gm Hfa.aer.ad 8.5 Gm IH Novolog Flexpen (Insulin Aspart) 100 Unit/1 Ml Insuln.pen 0 SQ TIDAC ssi Synthroid (Levothyroxine Sodium) 25 Mcg Tablet 300 Mcg PO DAILY Flovent 110MCG Hfa (Fluticasone Propionate) 12 Gm Aer.w.adap 12 Gm IH Allergies Allergies: Coded Allergies: Sulfa (Sulfonamide Antibiotics) (Verified Allergy, Severe, Swelling, 04/24/18) tongue swelling, rash cephalexin (Verified Allergy, Severe, Anaphylaxis, 05/22/18) TOLERATES AMOX, ZOSYN doxycycline (Verified Allergy, Intermediate, 04/24/18) gabapentin (Verified Allergy, Intermediate, Anxiety, 06/04/18) pt states gabapentin caused her to be admitted to [facility] where she presented "because I was out of my mind from that drug." insulin detemir (Verified Allergy, Intermediate, Rash, 04/24/18) morphine (Verified Allergy, Intermediate, rash, 04/24/18) niacin (Verified Allergy, Intermediate, Rash, 04/24/18) edema oxycodone (Verified Allergy, Intermediate, rash, 04/24/18) povidone-iodine (Verified Allergy, Intermediate, It, 04/24/18) rifaximin (Verified Allergy, Intermediate, Itching, 09/04/18) takes at home and multi times previously OK, just doesn't like it. tramadol (Verified Allergy, Intermediate, Rash, 04/24/18) I S O L A T I O N *CONTACT* (Verified Allergy, Unknown, 04/24/18) VRE - urine 12/20/17 codeine (Verified Adverse Reaction, Intermediate, Nausea and Vomiting, 04/24/18) erythromycin base (Verified Adverse Reaction, Intermediate, Diarrhea, 04/24/18) ROS Review of System Review of Systems Review of Systems Constitutional: Denies fever or chills [] Eyes: Denies change in visual acuity, redness, or eye pain [] HENT: Denies nasal congestion or sore throat [] Respiratory: Denies cough or shortness of breath [] Cardiovascular: No additional information not addressed in HPI [] GI: Denies abdominal pain, nausea, vomiting, bloody stools or diarrhea [] : Denies dysuria or hematuria [] Musculoskeletal: Reports left knee pain Integument: Denies rash or skin lesions [] Neurologic: Denies headache, focal weakness or sensory changes [] 14 PT systems were reviewed and found to be within normal limits, except as documented General: YES: Fatigue, Malaise Eyes: Yes Decreased vision Hematological and Lymphatic: No: Bleeding Problems, Blood Clots, Blood Transfusions, Brusing, Night Sweats, Pallor, Swollen Lymph Nodes, Other Respiratory: No: Cough, Hemoptysis, Orthopnea, Pleuritic Pain, Shortness of breath, SOB with excertion, Sputum Changes, Stridor, Tachypnea, Wheezing, Other Musculoskeletal: Yes Gait Disturbance, Yes Joint Pain, Yes Joint Stiffness Neurological: Yes Gait Disturbance Skin: Yes Dry Skin Physical Exam Physical Exam Physical Exam Physical Exam Constitutional: Well developed, well nourished, MOD acute distress, non-toxic appearance. [] HENT: Normocephalic, atraumatic, bilateral external ears normal, oropharynx moist, no oral exudates, nose normal. [] Eyes: PERRLA, EOMI, conjunctiva normal, no discharge. [] Neck: Normal range of motion, no tenderness, supple, no stridor. [] Cardiovascular:Heart rate regular rhythm, no murmur [] Lungs & Thorax: Bilateral breath sounds clear to auscultation [] Abdomen: Rounded abdomen consistent with cirrhosis. Bowel sounds normal, soft, no tenderness, no masses, no pulsatile masses. [] Skin: Warm, dry, no erythema, no rash. [] Back: No tenderness, no CVA tenderness. [] Extremities: Left knee with no obvious deformity. Tenderness on the medial as well as lateral aspect of the knee. Full passive range of motion to the left knee. +2 left pedal pulse. Cap refill less than 2 seconds left toes. Neurologic: Alert and oriented X 3, normal motor function, normal sensory function, no focal deficits noted. [] Psychologic: Affect normal, judgement normal, mood normal. [] General: Alert, Oriented X3, Cooperative, moderate distress HEENT: Atraumatic, PERRLA, EOMI, Mucous membr. moist/pink Lungs: Clear to auscultation Breasts: Not examined Abdomen: Normal bowel sounds, Soft Rectal Exam: not examined Neuro: Normal speech, Cranial nerves 3-12 NL Psych/Mental Status: Mental status NL, Mood NL Vitals Vitals Vital Signs Date Time Temp Pulse Resp B/P (MAP) Pulse Ox O2 Delivery O2 Flow Rate FiO2 09/04/18 09:06 98.5 98 20 89/45 (60) 100 Room Air 98.5 Images Images INDICATION: Trauma with pain in the knee COMPARISON: Plain film from earlier same day TECHNIQUE: Axial CT images obtained through the left knee without contrast. One or more of the following individualized dose reduction techniques were utilized for this examination: 1. Automated exposure control; 2. Adjustment of the mA and/or kV according to patient size; 3. Use of iterative reconstruction technique. FINDINGS: No evidence of dislocation. There are some degenerative changes the knee with osteophyte formation. Calcific atherosclerosis. Patchy regions of osseous demineralization including a confluent region within the proximal tibia. Large joint effusion with portions of it high density concerning for blood. At the distal femoral diaphysis there is an apparent cortical step-off on the sagittal images but this is in a region of motion which is the most likely cause. There is some indentation of the anterior aspect of the lateral tibial plateau with a lucency in the area. Edema of the soft tissues. Mild anterior indentation of the medial femoral condyle as well as mild indentation of the lateral femoral condyle. This is a very mild finding and could be the patient's baseline but mild impaction injuries of unknown age are within the differential. There is a small ossification in the intercondylar notch of the distal femur laterally. Tiny osseous excrescence off of the medial femur distally. IMPRESSION: 1. Large joint effusion is identified concerning for lipohemarthrosis. 2. There is some indentation identified at the lateral tibial plateau with a lucency seen within the region. Given the presence of lipohemarthrosis it is possible that this is secondary to a fracture however limited evaluation secondary to a region of osseous demineralization most confluent within the proximal tibia. The osseous demineralization could be from benign osteopenia however a marrow infiltrative lesion is within the differential given that this finding is more prominent than typically seen and if further characterization is desired MRI could further evaluate to assess for an underlying lesion and fracture. 3. There is a large amount of edema seen within the soft tissues. 4. Calcific atherosclerosis. 5. Degenerative changes throughout the knee. 6. Tiny ossific density is seen within the intercondylar notch. Could be a calcification of the soft tissues but causes such as a small avulsion injury at anterior cruciate ligament is not excluded given this finding. Electronically signed by: Alexis Ayala MD (09/04/2018 11:06 AM) [facility] VTE Prophylaxis Ordered VTE Prophylaxis Devices: Yes VTE Pharmacological Prophylaxi: Yes Assessment/Plan Assessment/Plan impression symptomatic anemia ESLD ascites ESRD ON DIALYSIS hypokalemia weakness, debility, FALL falls, gait instability Large joint effusion is identified concerning for lipohemarthrosis. indentation identified at the lateral tibial plateau with a lucency seen within the region. Given the presence of lipohemarthrosis it is possible that this is secondary to a fracture however limited evaluation secondary to a region of osseous demineralization most confluent within the proximal tibia. The osseous demineralization could be from benign osteopenia however a marrow infiltrative lesion is within the differential given that this finding is more prominent than typically seen and if further characterization is desired MRI could further evaluate to assess for an underlying lesion and fracture. large amount of edema seen within the soft tissues. Calcific atherosclerosis. Degenerative changes throughout the knee. ossific density is seen within the intercondylar notch. Could be a calcification of the soft tissues but causes such as a small avulsion injury at anterior cruciate ligament is not excluded MELD 24. Non-compliance and behavioral issues preventative of liver transplant. plan gi consult nephrology consult paracentesis prn ortho consult FALL PRECAUTIONS SQ HEPARIN, HOLD DUE TO KNEE effusion 77 min pt exa, chart review, > 50% of time with exam, chart review, pt care coordination CHUCK RIVERA MD September 04, 2018 11:47
[2018-09-04] MEDS ORDERED: ONDANSETRON PF 4 MG/2 ML VIAL. IV PRN (12:15)
[2018-09-04] MEDS ORDERED: fentaNYL PF VIAL 100 MCG/2 ML VIAL IV PRN (12:15)
[2018-09-04] MEDS ORDERED: LACTULOSE 20 GM/30 ML SOLUTION. PO PRN (13:45)
--- NOTE | 2018-09-04 13:46 | PDOC2 ---
GI CONSULT Reason For Consult: Cirrhosis HPI: HPI: 62 y/o female who we see frequently. Fell yesterday and hurt left leg/knee. Missed dialysis, also was supposed to have paracentesis today. To ER instead w/ daughter because couldn't manage at home w/ significant pain and limited mobility. GI-napoles, abdomen is distended but not too uncomfortable. She's hungry and asks for food a couple times. Stooling okay at home but hemorrhoids (pain/irr itation) are an issue despite multiple treatments. Says she saw Dr. Colón in the office and he recommended surgical opinion for hemorrhoids, then saw surgeon and they didn't recommend any intervention. H/o diarrhea - started on pancreatic enzymes last admission, not taking at home. Also not taking lactulose or Xifaxan. H/o ESLD (DIAZ), recurrent ascites/frequent paracentesis, PVT, hepatic encephalopathy, esophageal varices, ESRD on HD (hepatorenal syndrome), chronic anemia (iron deficient in 04/2018) requiring transfusions, thrombocytopenia. Has desired further eval for liver transplant but declined by [facility] due to past behavior, also unable to transfer to [facility] in the past due to insurance. H/o non-compliance and poor behavior w/ staff in the past. EGD by Dr. Vyas 04/2018: gastritis and grade 1 varices. EGD 10/2016: Grade II varices, gastritis, normal duodenum. H/o banding @ [facility]. Unclear when had last colonoscopy. US 08/2017: cholelithiasis, mild splenomegaly, cirrhosis, portal vein thrombosis. Last paracentesis 08/28 - 13L. PMH: PMH: DIAZ/cirrhosis, esophageal varices/banding, ascites/paracentesis, HTN, HLD, COPD, DM, CKD, hypothyroidism, UTI, depression/anxiety, cholelithiasis, colon polyps, hemorrhoids, cataract removal, tonsillectomy, myringotomy, hysterectomy, HD cath, port FH: Family History: CVA, DM Social History: Smoke: <1 pack per day ALCOHOL: none Drugs: None ROS: GEN: Denies fevers, chills, sweats HEENT: Denies blurred vision, sore throat CV: Denies chest pain RESP: Denies shortness of air, cough GI: Per HPI : Denies hematuria, dysuria ENDO: Denies weight changes NEURO: +confusion MSK: knee pain/weakness, swelling SKIN: Denies jaundice, pruritus Vitals: Vitals: Vital Signs Date Time Temp Pulse Resp B/P (MAP) Pulse Ox O2 Delivery O2 Flow Rate FiO2 09/04/18 09:06 98.5 98 20 89/45 (60) 100 Room Air 98.5 Labs: Labs: ammonia, CBC, and CMP ordered in ER Allergies: Coded Allergies: Sulfa (Sulfonamide Antibiotics) (Verified Allergy, Severe, Swelling, ) tongue swelling, rash cephalexin (Verified Allergy, Severe, Anaphylaxis, 05/22/18) TOLERATES AMOX, ZOSYN doxycycline (Verified Allergy, Intermediate, 04/24/18) gabapentin (Verified Allergy, Intermediate, Anxiety, 06/04/18) pt states gabapentin caused her to be admitted to [facility] where she presented "because I was out of my mind from that drug." insulin detemir (Verified Allergy, Intermediate, Rash, 04/24/18) morphine (Verified Allergy, Intermediate, rash, 04/24/18) niacin (Verified Allergy, Intermediate, Rash, 04/24/18) edema oxycodone (Verified Allergy, Intermediate, rash, 04/24/18) povidone-iodine (Verified Allergy, Intermediate, It, 04/24/18) rifaximin (Verified Allergy, Intermediate, Itching, 04/24/18) tramadol (Verified Allergy, Intermediate, Rash, 04/24/18) I S O L A T I O N *CONTACT* (Verified Allergy, Unknown, 04/24/18) VRE - urine 12/20/17 codeine (Verified Adverse Reaction, Intermediate, Nausea and Vomiting, 04/24/18) erythromycin base (Verified Adverse Reaction, Intermediate, Diarrhea, 04/24/18) Imaging: Imaging: Left Knee X-Ray No evidence of dislocation. Mild indentation of femoral condyle on lateral view. This is a mild finding and could be the patient's baseline appearance but if there is point tenderness in the region an impaction injury is possible. There is also a small ossific density seen adjacent to the medial femoral condyle. If there is point tenderness in the region causes such as a small avulsion injury is possible. This could also just be secondary to some mild calcifications within the soft tissues. On the lateral view there is a lucency seen projecting over the proximal tibia. Could be related to the growth plate as well as overlap with the fibula but given the suspected joint effusion and the patient's trauma would correlate with point tenderness to exclude alternative causes such as a nondisplaced fracture and if unclear clinically cross-sectional imaging could BE obtained. Calcific atherosclerosis. There is a suspected moderate knee joint effusion as well as edema within Hoffa's fat pad. LE CT IMPRESSION: 1. Large joint effusion is identified concerning for lipohemarthrosis. 2. There is some indentation identified at the lateral tibial plateau with a lucency seen within the region. Given the presence of lipohemarthrosis it is possible that this is secondary to a fracture however limited evaluation secondary to a region of osseous demineralization most confluent within the proximal tibia. The osseous demineralization could be from benign osteopenia however a marrow infiltrative lesion is within the differential given that this finding is more prominent than typically seen and if further characterization is desired MRI could further evaluate to assess for an underlying lesion and fracture. 3. There is a large amount of edema seen within the soft tissues. 4. Calcific atherosclerosis. 5. Degenerative changes throughout the knee. 6. Tiny ossific density is seen within the intercondylar notch. Could be a calcification of the soft tissues but causes such as a small avulsion injury at anterior cruciate ligament is not excluded given this finding. PE: GEN: NAD - staff changing her brief when I walked in HEENT: Atraumatic, PERRL LUNGS: CTAB HEART: RRR ABD: massively distended though not completely tight EXTREMITY: LLE w/ brace, right pitting pedal edema SKIN: No rashes, no jaundice NEURO/PSYCH: A & O 3, speech a bit slurred per usual A/P: A/P: Fall, left knee pain, abnormal imaging ESLD (DIAZ), recurrent ascites requiring frequent paracentesis, ESRD on HD Chronic anemia -- Ortho to see. GI-napoles, resume the usual: Xifaxan, PPI, lactulose. D/w pharmacy - has listed allergy ("itching") to rifaximin but has taken many times here without an issue. Gave okay for Benadryl PRN. Await labs, add INR. Will ask for paracentesis. JENNIE ABRAMS September 04, 2018 13:46
[2018-09-04] MEDS: PANTOPRAZOLE 40 MG TABLET.DR. PO SCH (14:00)
--- NOTE | 2018-09-04 14:00 | PDOC2 ---
CONSULT Date of Consult Date of Consult DATE: 09/04/18 TIME: 13:45 Reason for Consult Reason for Consult: ESRD Identification/Chief Complaint Chief Complaint "I fell and hurt my Lt Knee" Source Source: Caregiver, Chart review, Patient History of Present Illness Reason for Visit: Pt is a 62-year-old CF with Dx of Cirrhosis, ESRD on HD MWF presented to the ED today with left knee pain. She reports she fell yesterday and missed her dialysis as well . Her daughter is at beside . Pt reports her BP drops on Dialysis and she has to cut short her treatments. She gets Paracentesis every week with 12-1 4 Lts of fluid drained each time. last was on and was scheduled for today as OP She hurt her lt knee when she fell. She is getting evaluated at for Liver tx at as per daughter- awaiting Card eval etc Currently she denies any SOB at rest, No CP. No F/C, NO N/V/D. has Minimal uop, no symptoms of UTI Past Medical History Cardiovascular: HTN, Hyperlipidemia Pulmonary: Asthma, COPD CENTRAL NERVOUS SYSTEM: Other GI: Constipation, GERD, GI bleed, Gastritis, Hemorrhoids, Other Heme/Onc: Anemia NOS Hepatobiliary: Cirrhosis Psych: Anxiety, Depression Musculoskeletal: Osteoarthritis Renal/: Acute renal failure, UTI, Urinary Incontinence Endocrine: Diabetes, Hypothyroidism, Hyperparathyroidism Past Surgical History Past Surgical History: Cataract Removal, Tonsillectomy, Hysterectomy, Other Family History Family History: High Cholestrol, Family History Unknown Social History ALCOHOL: none Drugs: None Current Problem List Problem List Problems Medical Problems: (1) Fall Status: Acute (2) Hypotension Status: Acute (3) Knee effusion, left Status: Acute Current Medications Current Medications Current Medications Ondansetron HCl (Zofran) 4 mg PRN Q8HRS PRN IV NAUSEA/VOMITING; Start 09/04/18 at 12:15; Stop 09/05/18 at 12:14 Fentanyl Citrate (Fentanyl 2ml Vial) 50 mcg PRN Q1HR PRN IV PAIN; Start 09/04/18 at 12:15; Stop 09/05/18 at 12:14 Rifaximin (Xifaxan) 550 mg Q12HR PO ; Start 09/04/18 at 21:00; Status UNV Lactulose (Lactulose) 20 gm TID PRN PO CONSTIPATION; Start 09/04/18 at 13:45; Status UNV Pantoprazole Sodium (Protonix) 40 mg DAILYAC PO ; Start 09/05/18 at 07:30; Status UNV Active Scripts Active Reported Benadryl (Diphenhydramine Hcl) 25 Mg Capsule 25 Mg PO Q6HRS Calcium Acetate 667 Mg Tablet 667 Mg PO TIDWMEALS Dialyvite Tablet (Folic Acid/Vitamin B Comp W-C) 1 Each Tablet 1 Each PO DAILY Midodrine Hcl 5 Mg Tablet 5 Mg PO TID Cyclobenzaprine Hcl 5 Mg Tablet 1 Tab PO TID Omeprazole 40 Mg Capsule.dr 1 Cap PO DAILY Xifaxan (Rifaximin) 550 Mg Tablet 1 Tab PO BID Fusion Plus Capsule (Iron,Fum&Ps/Fa/Vit B&C#18/L.ca) 1 Each Capsule 1 Each PO Albuterol Sulfate Conc Neb Soln (Albuterol Sulfate) 2.5 Mg/0.5 Ml Vial.neb 2.5 Mg NEB Q6HRS PRN Lactulose 20 Gm/30 Ml Solution 20 Gm PO TID Lantus Solostar (Insulin Glargine,Hum.rec.anlog) 100 Unit/1 Ml Insuln.pen 0 SQ HS SSI Calcium + Vitamin D Tablet (Calcium Carbonate/Vitamin D3) 1 Each Tablet 1 Each PO Albuterol Sulfate Hfa Inhaler (Albuterol Sulfate) 8.5 Gm Hfa.aer.ad 8.5 Gm IH Novolog Flexpen (Insulin Aspart) 100 Unit/1 Ml Insuln.pen 0 SQ TIDAC ssi Synthroid (Levothyroxine Sodium) 25 Mcg Tablet 300 Mcg PO DAILY Flovent 110MCG Hfa (Fluticasone Propionate) 12 Gm Aer.w.adap 12 Gm IH Allergies Allergies: Coded Allergies: Sulfa (Sulfonamide Antibiotics) (Verified Allergy, Severe, Swelling, 04/24/18) tongue swelling, rash cephalexin (Verified Allergy, Severe, Anaphylaxis, 05/22/18) TOLERATES AMOX, ZOSYN doxycycline (Verified Allergy, Intermediate, 04/24/18) gabapentin (Verified Allergy, Intermediate, Anxiety, 06/04/18) pt states gabapentin caused her to be admitted to [facility] where she presented "because I was out of my mind from that drug." insulin detemir (Verified Allergy, Intermediate, Rash, 04/24/18) morphine (Verified Allergy, Intermediate, rash, 04/24/18) niacin (Verified Allergy, Intermediate, Rash, 04/24/18) edema oxycodone (Verified Allergy, Intermediate, rash, 04/24/18) povidone-iodine (Verified Allergy, Intermediate, It, 04/24/18) rifaximin (Verified Allergy, Intermediate, Itching, 04/24/18) tramadol (Verified Allergy, Intermediate, Rash, 04/24/18) I S O L A T I O N *CONTACT* (Verified Allergy, Unknown, 04/24/18) VRE - urine 12/20/17 codeine (Verified Adverse Reaction, Intermediate, Nausea and Vomiting, 04/24/18) erythromycin base (Verified Adverse Reaction, Intermediate, Diarrhea, ) ROS Review of System As per HPI Physical Exam Physical Exam GEN: NAD HEEN: OM moist NECK: Supple CVS: RRR RESP: CTA ,no Acc. Muscle Use GI: Distended, Ascites++ : [No CVA tenderness, [No Suprapubic Tenderness, No Ashley NEURO- AxO x3, Grossly normal SKIN NO rash EXT No edema Vital Signs Vital Signs Date Time Temp Pulse Resp B/P (MAP) Pulse Ox O2 Delivery O2 Flow Rate FiO2 09/04/18 09:06 98.5 98 20 89/45 (60) 100 Room Air 98.5 Assessment & Plan ESRD- On HD MWF at - Dr. Tracy Missed HD yesterday Labs Pending Currently No emergent indication for HD Will follow up labs if stable, HD tomorrow Cirrhosis - Getting paracentesis Q week Was scheduled for Today GI consulted Lt Knee Effusion s/p fall Ortho recommended fu as OP Hypotension- Chronic sec to Cirrhosis Discussed A/P with Pt, daughter and RN at bedside Labs Review All relevant outside records, renal labs, imaging studies, telemetry/EKG's were reviewed. Images Images CT LOWER EXTREMITY WO LEFT INDICATION: Trauma with pain in the knee Axial CT images obtained through the left knee without contrast. IMPRESSION: 1. Large joint effusion is identified concerning for lipohemarthrosis. 2. There is some indentation identified at the lateral tibial plateau with a lucency seen within the region. Given the presence of lipohemarthrosis it is possible that this is secondary to a fracture however limited evaluation secondary to a region of osseous demineralization most confluent within the proximal tibia. The osseous demineralization could be from benign osteopenia however a marrow infiltrative lesion is within the differential given that this finding is more prominent than typically seen and if further characterization is desired MRI could further evaluate to assess for an underlying lesion and fracture. 3. There is a large amount of edema seen within the soft tissues. 4. Calcific atherosclerosis. 5. Degenerative changes throughout the knee. 6. Tiny ossific density is seen within the intercondylar notch. Could be a calcification of the soft tissues but causes such as a small avulsion injury at anterior cruciate ligament is not excluded given this finding. Electronically signed by: Alexis Ayala MD (09/04/2018 11:06 AM) [facility] DARLING SHORT MD September 04, 2018 14:00
[2018-09-04] MEDS ORDERED: diphenhydrAMINE HCL 25 MG CAPSULE PO PRN (14:15)
[2018-09-04] MEDS: rifAXIMin 550 MG TABLET PO SCH ×2 (14:22→21:13)
[2018-09-04] MEDS ORDERED: LIDOCAINE WITH 8.4% SOD BICARB 3 ML DISP.SYRIN. ONE (14:34)
[2018-09-04] MEDS ORDERED: LIDOCAINE WITH 8.4% SOD BICARB 3 ML DISP.SYRIN. INJ ONE (14:45)
[2018-09-04 15:07] LABS: BASO % 0 % (0-3); EOS % 1 % (0-3); HEMATOCRIT 26.9 % (36.0-47.0); HEMOGLOBIN 8.7 g/dL (12.0-15.5); LYMPH # 0.3 x10^3/uL (1.0-4.8); LYMPH % 4 % (24-48); MEAN CORPUSCULAR HEMOGLOBIN 30 pg (25-35); MEAN CORPUSCULAR HGB CONC 32 g/dL (31-37); MEAN CORPUSCULAR VOLUME 93 fL (79-100); MONO # 1.3 x10^3/uL (0.0-1.1); MONO % 15 % (0-9); NEUT % 80 % (31-73); PLATELET COUNT 85 x10^3/uL (140-400); WHITE BLOOD COUNT 8.8 x10^3/uL (4.0-11.0)
[2018-09-04 15:10] VITALS: BP 111/53
[2018-09-04 15:18] LABS: CALCIUM 8.3 mg/dL (8.5-10.1); CREATININE 6.4 mg/dL (0.6-1.0); GFR 6.6; POTASSIUM 3.6 mmol/L (3.5-5.1)
[2018-09-04 15:20] VITALS: BP 110/56
[2018-09-04 15:24] LABS: ALBUMIN 2.4 g/dL (3.4-5.0); ALBUMIN/GLOBULIN RATIO 0.7 (1.0-1.7); TOTAL BILIRUBIN 1.3 mg/dL (0.2-1.0); TOTAL PROTEIN 5.9 g/dL (6.4-8.2)
[2018-09-04 15:30] VITALS: BP 101/51
[2018-09-04] MEDS ORDERED: ALBUMIN HUMAN 25% 100 ML IV ONE ×3 (15:30→16:00)
[2018-09-04 15:40] VITALS: BP 104/51
[2018-09-04 15:47] LABS: % BANDS 8 % (0-9); % EOS 1 % (0-5); % LYMPHS 2 % (24-48); % MONOS 4 % (0-10); % SEGS 85 % (35-66); PLT ESTIMATE DECREASED (ADEQUATE)
[2018-09-04 15:48] LABS: ANISOCYTOSIS SLIGHT
[2018-09-04 16:17] LABS: PROTHROMBIN TIME PATIENT 16.4 SEC (11.7-14.0)
[2018-09-04] MEDS ORDERED: DEXTROSE 50% 25 GM / 50ML DISP.SYRIN. IV PRN (17:45)
[2018-09-04] MEDS ORDERED: diphenhydrAMINE HCL 25 MG CAPSULE PO SCH (18:00)
[2018-09-04] MEDS ORDERED: INSULIN LISPRO 300 UNITS/3 ML INSULN.PEN. SQ ONE (18:00)
[2018-09-04] MEDS: CALCIUM ACETATE 667 MG CAPSULE PO SCH (18:06)
[2018-09-04 19:30] VITALS: BP 85/22
[2018-09-04] MEDS: LACTULOSE 20 GM/30 ML SOLUTION. PO SCH (21:00)
[2018-09-04] MEDS: CYCLOBENZAPRINE 10 MG TABLET. PO PRN (21:11)
[2018-09-04] MEDS: HYDROcodone/APAP 5/325MG 1 TAB TABLET PO PRN ×2 (21:25→22:42)
[2018-09-04] MEDS: INSULIN GLARGINE 300 UNITS/3 ML INSULN.PEN. SQ SCH (21:37)
[2018-09-04 23:33] VITALS: BP 87/24
--- NOTE | 2018-09-05 00:29 | NUR ---
This nurse ordered PO pain medication for pt. Pt. became angry because this nurse was waiting for medication to be acknowledged by pharmacy. Pt. swore at nurse and became angry. This nurse explained to pt. that she will receive medication as soon as it is available. Once available, pt. refused medication and again became angry after this nurse became unavailable to pt. d/t other reasons. Pt. stated she wanted to be transferred to another unit because we "aren't taking care of her." This nurse pulled pain medication and was administered. Will continue to monitor. Addendum: 09/05/18 at 0045 by MARIE REBOLLAR RN Amended: Links added.
--- NOTE | 2018-09-05 00:42 | NUR ---
Refused SCD on right leg because of pain Addendum: 09/05/18 at 0045 by MARIE REBOLLAR RN Amended: Links added.
[2018-09-05 01:00] VITALS: BP 94/32
--- NOTE | 2018-09-05 01:10 | NUR ---
Pt.'s BP has been low this evening. This nurse checked BP at 0100 94/[address] Gallegos maintenance mechanic telephone [facility]. She stated 80's-90's is her baseline because of cirrhosis. This nurse asked about fluids and MD stated no fluids. No orders given. Will continue to monitor.
[2018-09-05 03:19] VITALS: BP 87/32
[2018-09-05] MEDS: PANTOPRAZOLE 40 MG TABLET.DR. PO SCH (05:56)
[2018-09-05] MEDS: CYCLOBENZAPRINE 10 MG TABLET. PO PRN (05:56)
[2018-09-05 07:00] VITALS: BP 81/32
[2018-09-05] MEDS: LACTULOSE 20 GM/30 ML SOLUTION. PO SCH ×3 (08:05→21:00)
[2018-09-05] MEDS: CALCIUM ACETATE 667 MG CAPSULE PO SCH ×3 (08:05→17:00)
[2018-09-05] MEDS: rifAXIMin 550 MG TABLET PO SCH ×2 (08:05→21:44)
[2018-09-05] MEDS: INSULIN LISPRO 300 UNITS/3 ML INSULN.PEN. SQ SCH ×3 (08:09→17:00)
--- NOTE | 2018-09-05 08:37 | PDOC ---
PROGRESS NOTES Chief Complaint Chief Complaint ESRD on HD - 2/2 hepatorenal syndrome Left knee pain with Large joint effusion - will have ortho see End-stage liver disease with recurrent ascites s/p paracentesis 9200cc previously Recent history of vancomycin-resistant enterococci Encephalopathy/hyperammonemia Chronic anemia - EGD 04/24/18: grade 1 varices, gastritis History of Present Illness History of Present Illness 62-year-old female PMHx H/o ESLD (DIAZ), recurrent ascites/frequent paracentesis, PVT, hepatic encephalopathy, esophageal varices, ESRD on HD (hepatorenal syndrome), chronic anemia (iron deficient in 04/2018) requiring transfusions, thrombocytopenia admitted through ED after she fell, hurting her left knee and missing dialysis. She was supposed to have paracentesis yesterday as well. To ER instead w/ daughter because couldn't manage at home w/ significant pain and limited mobility. Has been having diarrhea - started on pancreatic enzymes last admission, not taking at home, and she is not taking lactulose or Xifaxin as prescribed either Has desired further eval for liver transplant but declined by [facility] due to past behavior, also unable to transfer to [facility] in the past due to insurance. No overnight events. Today c/o worse left knee pain, is in immobilizer. Seen on dialysis. Hb stable, low. She is not oriented to day, date, year Vitals Vitals Vital Signs Date Time Temp Pulse Resp B/P (MAP) Pulse Ox O2 Delivery O2 Flow Rate FiO2 09/05/18 07:00 97.5 86 18 81/32 (48) 98 Room Air 97.5 Physical Exam General: Alert, Oriented X3, Cooperative, moderate distress Lungs: Clear, Other Abdomen: Normal bowel sounds, Soft Labs LABS Laboratory Tests Test 09/04/18 15:00 09/04/18 15:07 09/04/18 16:53 09/04/18 21:30 White Blood Count 8.8 x10^3/uL (4.0-11.0) Red Blood Count 2.90 x10^6/uL (3.50-5.40) Hemoglobin 8.7 g/dL (12.0-15.5) Hematocrit 26.9 % (36.0-47.0) Mean Corpuscular Volume 93 fL (79-100) Mean Corpuscular Hemoglobin 30 pg (25-35) Mean Corpuscular Hemoglobin Concent 32 g/dL (31-37) Red Cell Distribution Width 19.0 % (11.5-14.5) Platelet Count 85 x10^3/uL (140-400) Neutrophils (%) (Auto) 80 % (31-73) Lymphocytes (%) (Auto) 4 % (24-48) Monocytes (%) (Auto) 15 % (0-9) Eosinophils (%) (Auto) 1 % (0-3) Basophils (%) (Auto) 0 % (0-3) Neutrophils # (Auto) 7.0 x10^3uL (1.8-7.7) Lymphocytes # (Auto) 0.3 x10^3/uL (1.0-4.8) Monocytes # (Auto) 1.3 x10^3/uL (0.0-1.1) Eosinophils # (Auto) 0.0 x10^3/uL (0.0-0.7) Basophils # (Auto) 0.0 x10^3/uL (0.0-0.2) Segmented Neutrophils % 85 % (35-66) Band Neutrophils % 8 % (0-9) Lymphocytes % 2 % (24-48) Monocytes % 4 % (0-10) Eosinophils % 1 % (0-5) Platelet Estimate Decreased (ADEQUATE) Anisocytosis Slight Prothrombin Time 16.4 SEC (11.7-14.0) Prothromb Time International Ratio 1.4 (0.8-1.1) Sodium Level 131 mmol/L (136-145) Potassium Level 3.6 mmol/L (3.5-5.1) Chloride Level 94 mmol/L (98-107) Carbon Dioxide Level 18 mmol/L (21-32) Anion Gap 19 (6-14) Blood Urea Nitrogen 50 mg/dL (7-20) Creatinine 6.4 mg/dL (0.6-1.0) Estimated GFR (Cockcroft-Gault) 6.6 BUN/Creatinine Ratio 8 (6-20) Glucose Level 213 mg/dL (70-99) Calcium Level 8.3 mg/dL (8.5-10.1) Total Bilirubin 1.3 mg/dL (0.2-1.0) Aspartate Amino Transf (AST/SGOT) 23 U/L (15-37) Alanine Aminotransferase (ALT/SGPT) 21 U/L (14-59) Alkaline Phosphatase 210 U/L (46-116) Ammonia 64 mcmol/L (11-34) Total Protein 5.9 g/dL (6.4-8.2) Albumin 2.4 g/dL (3.4-5.0) Albumin/Globulin Ratio 0.7 (1.0-1.7) Glucose (Fingerstick) 197 mg/dL (70-99) 255 mg/dL (70-99) 333 mg/dL (70-99) Assessment and Plan Assessmemt and Plan Problems Medical Problems: (1) Fall Status: Acute (2) Hypotension Status: Acute (3) Knee effusion, left Status: Acute Comment Review of Relevant I have reviewed the following items chante (where applicable) has been applied. Labs Laboratory Tests Test 09/04/18 15:00 09/04/18 15:07 09/04/18 16:53 09/04/18 21:30 White Blood Count 8.8 x10^3/uL (4.0-11.0) Red Blood Count 2.90 x10^6/uL (3.50-5.40) Hemoglobin 8.7 g/dL (12.0-15.5) Hematocrit 26.9 % (36.0-47.0) Mean Corpuscular Volume 93 fL (79-100) Mean Corpuscular Hemoglobin 30 pg (25-35) Mean Corpuscular Hemoglobin Concent 32 g/dL (31-37) Red Cell Distribution Width 19.0 % (11.5-14.5) Platelet Count 85 x10^3/uL (140-400) Neutrophils (%) (Auto) 80 % (31-73) Lymphocytes (%) (Auto) 4 % (24-48) Monocytes (%) (Auto) 15 % (0-9) Eosinophils (%) (Auto) 1 % (0-3) Basophils (%) (Auto) 0 % (0-3) Neutrophils # (Auto) 7.0 x10^3uL (1.8-7.7) Lymphocytes # (Auto) 0.3 x10^3/uL (1.0-4.8) Monocytes # (Auto) 1.3 x10^3/uL (0.0-1.1) Eosinophils # (Auto) 0.0 x10^3/uL (0.0-0.7) Basophils # (Auto) 0.0 x10^3/uL (0.0-0.2) Segmented Neutrophils % 85 % (35-66) Band Neutrophils % 8 % (0-9) Lymphocytes % 2 % (24-48) Monocytes % 4 % (0-10) Eosinophils % 1 % (0-5) Platelet Estimate Decreased (ADEQUATE) Anisocytosis Slight Prothrombin Time 16.4 SEC (11.7-14.0) Prothromb Time International Ratio 1.4 (0.8-1.1) Sodium Level 131 mmol/L (136-145) Potassium Level 3.6 mmol/L (3.5-5.1) Chloride Level 94 mmol/L (98-107) Carbon Dioxide Level 18 mmol/L (21-32) Anion Gap 19 (6-14) Blood Urea Nitrogen 50 mg/dL (7-20) Creatinine 6.4 mg/dL (0.6-1.0) Estimated GFR (Cockcroft-Gault) 6.6 BUN/Creatinine Ratio 8 (6-20) Glucose Level 213 mg/dL (70-99) Calcium Level 8.3 mg/dL (8.5-10.1) Total Bilirubin 1.3 mg/dL (0.2-1.0) Aspartate Amino Transf (AST/SGOT) 23 U/L (15-37) Alanine Aminotransferase (ALT/SGPT) 21 U/L (14-59) Alkaline Phosphatase 210 U/L (46-116) Ammonia 64 mcmol/L (11-34) Total Protein 5.9 g/dL (6.4-8.2) Albumin 2.4 g/dL (3.4-5.0) Albumin/Globulin Ratio 0.7 (1.0-1.7) Glucose (Fingerstick) 197 mg/dL (70-99) 255 mg/dL (70-99) 333 mg/dL (70-99) Laboratory Tests Test 09/04/18 15:00 09/04/18 15:07 09/04/18 16:53 09/04/18 21:30 White Blood Count 8.8 x10^3/uL (4.0-11.0) Red Blood Count 2.90 x10^6/uL (3.50-5.40) Hemoglobin 8.7 g/dL (12.0-15.5) Hematocrit 26.9 % (36.0-47.0) Mean Corpuscular Volume 93 fL (79-100) Mean Corpuscular Hemoglobin 30 pg (25-35) Mean Corpuscular Hemoglobin Concent 32 g/dL (31-37) Red Cell Distribution Width 19.0 % (11.5-14.5) Platelet Count 85 x10^3/uL (140-400) Neutrophils (%) (Auto) 80 % (31-73) Lymphocytes (%) (Auto) 4 % (24-48) Monocytes (%) (Auto) 15 % (0-9) Eosinophils (%) (Auto) 1 % (0-3) Basophils (%) (Auto) 0 % (0-3) Neutrophils # (Auto) 7.0 x10^3uL (1.8-7.7) Lymphocytes # (Auto) 0.3 x10^3/uL (1.0-4.8) Monocytes # (Auto) 1.3 x10^3/uL (0.0-1.1) Eosinophils # (Auto) 0.0 x10^3/uL (0.0-0.7) Basophils # (Auto) 0.0 x10^3/uL (0.0-0.2) Segmented Neutrophils % 85 % (35-66) Band Neutrophils % 8 % (0-9) Lymphocytes % 2 % (24-48) Monocytes % 4 % (0-10) Eosinophils % 1 % (0-5) Platelet Estimate Decreased (ADEQUATE) Anisocytosis Slight Prothrombin Time 16.4 SEC (11.7-14.0) Prothromb Time International Ratio 1.4 (0.8-1.1) Sodium Level 131 mmol/L (136-145) Potassium Level 3.6 mmol/L (3.5-5.1) Chloride Level 94 mmol/L (98-107) Carbon Dioxide Level 18 mmol/L (21-32) Anion Gap 19 (6-14) Blood Urea Nitrogen 50 mg/dL (7-20) Creatinine 6.4 mg/dL (0.6-1.0) Estimated GFR (Cockcroft-Gault) 6.6 BUN/Creatinine Ratio 8 (6-20) Glucose Level 213 mg/dL (70-99) Calcium Level 8.3 mg/dL (8.5-10.1) Total Bilirubin 1.3 mg/dL (0.2-1.0) Aspartate Amino Transf (AST/SGOT) 23 U/L (15-37) Alanine Aminotransferase (ALT/SGPT) 21 U/L (14-59) Alkaline Phosphatase 210 U/L (46-116) Ammonia 64 mcmol/L (11-34) Total Protein 5.9 g/dL (6.4-8.2) Albumin 2.4 g/dL (3.4-5.0) Albumin/Globulin Ratio 0.7 (1.0-1.7) Glucose (Fingerstick) 197 mg/dL (70-99) 255 mg/dL (70-99) 333 mg/dL (70-99) Medications Current Medications Ondansetron HCl (Zofran) 4 mg PRN Q8HRS PRN IV NAUSEA/VOMITING; Start 09/04/18 at 12:15; Stop 09/05/18 at 12:14 Fentanyl Citrate (Fentanyl 2ml Vial) 50 mcg PRN Q1HR PRN IV PAIN; Start 09/04/18 at 12:15; Stop 09/05/18 at 12:14 Rifaximin (Xifaxan) 550 mg Q12HR PO Last administered on 09/05/18at 08:05; Start 09/04/18 at 14:30 Lactulose (Lactulose) 20 gm PRN TID PRN PO CONSTIPATION; Start 09/04/18 at 13:45 Pantoprazole Sodium (Protonix) 40 mg DAILYAC PO Last administered on 09/05/18at 05:56; Start 09/04/18 at 14:00 Diphenhydramine HCl (Benadryl) 25 mg PRN Q6HRS PRN PO ITCHING Last administered on 09/05/18at 00:04; Start 09/04/18 at 14:15 Lidocaine/Sodium Bicarbonate (Buffered Lidocaine 1%) 3 ml STK-MED ONCE .ROUTE ; Start 09/04/18 at 14:34; Stop 09/04/18 at 14:35; Status DC Lidocaine/Sodium Bicarbonate (Buffered Lidocaine 1%) 9 ml 1X ONCE INJ Last administered on 09/04/18at 14:57; Start 09/04/18 at 14:45; Stop 09/04/18 at 14:46; Status DC Albumin Human 100 ml @ 100 mls/hr 1X ONCE IV Last administered on 09/04/18at 15:30; Start 09/04/18 at 15:30; Stop 09/04/18 at 16:29; Status DC Albumin Human 100 ml @ 100 mls/hr 1X ONCE IV Last administered on 09/04/18at 15:30; Start 09/04/18 at 15:30; Stop 09/04/18 at 16:29; Status DC Albumin Human 100 ml @ 100 mls/hr 1X ONCE IV Last administered on 09/04/18at 15:44; Start 09/04/18 at 16:00; Stop 09/04/18 at 16:59; Status DC Diphenhydramine HCl (Benadryl) 25 mg Q6HRS PO ; Start 09/04/18 at 18:00; Status UNV Insulin Glargine (Lantus) 10 units HS SQ Last administered on 09/04/18at 21:37; Start 09/04/18 at 21:00 Lactulose (Lactulose) 20 gm TID PO ; Start 09/04/18 at 21:00 Calcium Acetate (Phoslo) 667 mg TIDWMEALS PO Last administered on 09/05/18at 08:05; Start 09/04/18 at 18:00 Insulin Human Lispro (HumaLOG) 0-5 UNITS TIDWMEALS SQ Last administered on 09/05/18at 08:09; Start 09/05/18 at 08:00 Dextrose (Dextrose 50%-Water Syringe) 12.5 gm PRN Q15MIN PRN IV SEE COMMENTS; Start 09/04/18 at 17:45 Insulin Human Lispro (HumaLOG) 6 units 1X ONCE SQ Last administered on 09/04/18at 18:11; Start 09/04/18 at 18:00; Stop 09/04/18 at 18:01; Status DC Cyclobenzaprine HCl (Flexeril) 10 mg PRN Q6HRS PRN PO MUSCLE SPASMS Last administered on 09/05/18at 05:56; Start 09/04/18 at 20:00 Acetaminophen/ Hydrocodone Bitart (Lortab 5/325) 1 tab PRN Q6HRS PRN PO PAIN Last administered on 09/04/18at 22:42; Start 09/04/18 at 20:45 Active Scripts Active Reported Benadryl (Diphenhydramine Hcl) 25 Mg Capsule 25 Mg PO Q6HRS Calcium Acetate 667 Mg Tablet 667 Mg PO TIDWMEALS Dialyvite Tablet (Folic Acid/Vitamin B Comp W-C) 1 Each Tablet 1 Each PO DAILY Midodrine Hcl 5 Mg Tablet 5 Mg PO TID Cyclobenzaprine Hcl 5 Mg Tablet 1 Tab PO TID Omeprazole 40 Mg Capsule.dr 1 Cap PO DAILY Xifaxan (Rifaximin) 550 Mg Tablet 1 Tab PO BID Fusion Plus Capsule (Iron,Fum&Ps/Fa/Vit B&C#18/L.ca) 1 Each Capsule 1 Each PO Albuterol Sulfate Conc Neb Soln (Albuterol Sulfate) 2.5 Mg/0.5 Ml Vial.neb 2.5 Mg NEB Q6HRS PRN Lactulose 20 Gm/30 Ml Solution 20 Gm PO TID Lantus Solostar (Insulin Glargine,Hum.rec.anlog) 100 Unit/1 Ml Insuln.pen 0 SQ HS SSI Calcium + Vitamin D Tablet (Calcium Carbonate/Vitamin D3) 1 Each Tablet 1 Each PO Albuterol Sulfate Hfa Inhaler (Albuterol Sulfate) 8.5 Gm Hfa.aer.ad 8.5 Gm IH Novolog Flexpen (Insulin Aspart) 100 Unit/1 Ml Insuln.pen 0 SQ TIDAC ssi Synthroid (Levothyroxine Sodium) 25 Mcg Tablet 300 Mcg PO DAILY Flovent 110MCG Hfa (Fluticasone Propionate) 12 Gm Aer.w.adap 12 Gm IH Vitals/I & O Vital Sign - Last 24 Hours 09/04/18 09/04/18 09/04/18 09/04/18 09:06 09:14 09:29 09:44 Temp 98.5 98.5 Pulse 98 98 98 96 Resp 20 B/P (MAP) 89/45 (60) 86/45 (59) 92/49 (63) 84/46 (59) Pulse Ox 100 97 97 96 O2 Delivery Room Air Room Air Room Air Room Air 09/04/18 09/04/18 09/04/18 09/04/18 10:00 10:15 11:00 11:30 Pulse 94 94 96 B/P (MAP) 89/44 (59) 81/39 (53) 100/47 (64) 89/48 (62) Pulse Ox 93 O2 Delivery Room Air Room Air Room Air Room Air 09/04/18 09/04/18 09/04/18 09/04/18 12:00 12:30 12:40 15:10 Pulse 90 93 Resp 17 B/P (MAP) 93/47 (62) 89/44 (59) 92/53 (66) 111/53 (72) Pulse Ox 96 98 O2 Delivery Room Air Room Air Room Air Room Air 09/04/18 09/04/18 09/04/18 09/04/18 15:20 15:22 15:30 15:40 Pulse 90 92 95 Resp 19 18 16 B/P (MAP) 110/56 (74) 101/51 (68) 104/51 (68) Pulse Ox 97 97 98 O2 Delivery Room Air Room Air Room Air Room Air 09/04/18 09/04/18 09/04/18 09/04/18 19:30 20:00 22:42 23:33 Temp 98.1 98.2 98.1 98.2 Pulse 90 93 Resp 18 18 18 B/P (MAP) 85/22 (43) 87/24 (45) Pulse Ox 99 93 O2 Delivery Room Air Room Air Room Air Room Air 09/04/18 09/05/18 09/05/18 09/05/18 23:42 01:00 03:19 07:00 Temp 97.5 97.5 97.5 97.5 Pulse 87 95 86 Resp 20 18 18 B/P (MAP) 94/32 (52) 87/32 (50) 81/32 (48) Pulse Ox 95 98 O2 Delivery Room Air Room Air Room Air Intake and Output 09/04/18 09/04/18 09/05/18 15:00 23:00 07:00 Intake Total 480 ml Output Total 97449 ml Balance -05715 ml 480 ml DANA PHAN MD September 05, 2018 08:37
[2018-09-05] MEDS ORDERED: IV NORMAL SALINE 1000ML BAG 1,000 ML IV PRN ×2 (09:00→09:30)
[2018-09-05] MEDS ORDERED: diphenhydrAMINE 50 MG/ML VIAL IV PRN ×2 (09:15)
[2018-09-05] MEDS ORDERED: DIALYSIS PATIENT. MC PRN (09:15)
--- NOTE | 2018-09-05 10:17 | PDOC ---
SUBJECTIVE ROS Seen on HD, BP chronic low, c/o mild cramps s/p Paracentesis- 12 lts drained OBJECTIVE Vital Signs Vital Signs Date Time Temp Pulse Resp B/P (MAP) Pulse Ox O2 Delivery O2 Flow Rate FiO2 09/05/18 07:00 97.5 86 18 81/32 (48) 98 Room Air 97.5 I & 0 Intake and Output 09/05/18 06:59 Intake Total 480 ml Output Total 09173 ml Balance -75577 ml Intake Oral 480 ml Output Drainage Total 9000 ml Other 2000 ml # Voids 1 # Bowel Movements 5 PHYSICAL EXAM Physical Exam GEN: NAD HEEN: OM moist NECK: Supple CVS: RRR RESP: CTA ,no Acc. Muscle Use GI: Distended, Ascites++ : [No CVA tenderness, [No Suprapubic Tenderness, No Ashley NEURO- AxO x3, Grossly normal SKIN NO rash EXT No edema DIAGNOSIS/ASSESSMENT Assessment & Plan ESRD- On HD MWF at - Dr. 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 Cirrhosis - Gets paracentesis Q week Drained 12 lts on 09/04 GI managing Lt Knee Effusion s/p fall Ortho recommended fu as OP Hypotension- Chronic sec to Cirrhosis COMMENT/RELEVANT DATA Meds Current Medications Medications (Trade) Dose Ordered Sig/Emanuel Start Time Stop Time Status Last Admin Dose Admin Acetaminophen/ Hydrocodone Bitart (Lortab 5/325) 1 tab PRN Q6HRS PRN 09/04/18 20:45 09/04/18 22:42 1 TAB Albumin Human 100 ml @ 100 mls/hr 1X ONCE 09/04/18 16:00 09/04/18 16:59 DC 09/04/18 15:44 100 MLS/HR Calcium Acetate (Phoslo) 667 mg TIDWMEALS 09/04/18 18:00 09/05/18 08:05 667 MG Cyclobenzaprine HCl (Flexeril) 10 mg PRN Q6HRS PRN 09/04/18 20:00 09/05/18 05:56 10 MG Dextrose (Dextrose 50%-Water Syringe) 12.5 gm PRN Q15MIN PRN 09/04/18 17:45 Diphenhydramine HCl (Benadryl) 25 mg 1X PRN PRN 09/05/18 09:15 09/05/18 19:00 Fentanyl Citrate (Fentanyl 2ml Vial) 50 mcg PRN Q1HR PRN 09/04/18 12:15 09/05/18 12:14 Info (PHARMACY MONITORING -- do not chart) 1 each PRN DAILY PRN 09/05/18 09:15 Insulin Glargine (Lantus) 10 units HS 09/04/18 21:00 09/04/18 21:37 10 UNITS Insulin Human Lispro (HumaLOG) 6 units 1X ONCE 09/04/18 18:00 09/04/18 18:01 DC 09/04/18 18:11 6 UNITS Lactulose (Lactulose) 20 gm TID 09/04/18 21:00 Lidocaine/Sodium Bicarbonate (Buffered Lidocaine 1%) 9 ml 1X ONCE 09/04/18 14:45 09/04/18 14:46 DC 09/04/18 14:57 8 ML Ondansetron HCl (Zofran) 4 mg PRN Q8HRS PRN 09/04/18 12:15 09/05/18 12:14 Pantoprazole Sodium (Protonix) 40 mg DAILYAC 09/04/18 14:00 09/05/18 05:56 40 MG Rifaximin (Xifaxan) 550 mg Q12HR 09/04/18 14:30 09/05/18 08:05 550 MG Sodium Chloride 1,000 ml @ 400 mls/hr Q2H30M PRN 09/05/18 09:00 09/05/18 19:00 Lab Laboratory Tests Test 09/04/18 15:00 09/04/18 15:07 09/04/18 16:53 09/04/18 21:30 White Blood Count 8.8 x10^3/uL (4.0-11.0) Red Blood Count 2.90 x10^6/uL (3.50-5.40) Hemoglobin 8.7 g/dL (12.0-15.5) Hematocrit 26.9 % (36.0-47.0) Mean Corpuscular Volume 93 fL (79-100) Mean Corpuscular Hemoglobin 30 pg (25-35) Mean Corpuscular Hemoglobin Concent 32 g/dL (31-37) Red Cell Distribution Width 19.0 % (11.5-14.5) Platelet Count 85 x10^3/uL (140-400) Neutrophils (%) (Auto) 80 % (31-73) Lymphocytes (%) (Auto) 4 % (24-48) Monocytes (%) (Auto) 15 % (0-9) Eosinophils (%) (Auto) 1 % (0-3) Basophils (%) (Auto) 0 % (0-3) Neutrophils # (Auto) 7.0 x10^3uL (1.8-7.7) Lymphocytes # (Auto) 0.3 x10^3/uL (1.0-4.8) Monocytes # (Auto) 1.3 x10^3/uL (0.0-1.1) Eosinophils # (Auto) 0.0 x10^3/uL (0.0-0.7) Basophils # (Auto) 0.0 x10^3/uL (0.0-0.2) Segmented Neutrophils % 85 % (35-66) Band Neutrophils % 8 % (0-9) Lymphocytes % 2 % (24-48) Monocytes % 4 % (0-10) Eosinophils % 1 % (0-5) Platelet Estimate Decreased (ADEQUATE) Anisocytosis Slight Prothrombin Time 16.4 SEC (11.7-14.0) Prothromb Time International Ratio 1.4 (0.8-1.1) Sodium Level 131 mmol/L (136-145) Potassium Level 3.6 mmol/L (3.5-5.1) Chloride Level 94 mmol/L (98-107) Carbon Dioxide Level 18 mmol/L (21-32) Anion Gap 19 (6-14) Blood Urea Nitrogen 50 mg/dL (7-20) Creatinine 6.4 mg/dL (0.6-1.0) Estimated GFR (Cockcroft-Gault) 6.6 BUN/Creatinine Ratio 8 (6-20) Glucose Level 213 mg/dL (70-99) Calcium Level 8.3 mg/dL (8.5-10.1) Total Bilirubin 1.3 mg/dL (0.2-1.0) Aspartate Amino Transf (AST/SGOT) 23 U/L (15-37) Alanine Aminotransferase (ALT/SGPT) 21 U/L (14-59) Alkaline Phosphatase 210 U/L (46-116) Ammonia 64 mcmol/L (11-34) Total Protein 5.9 g/dL (6.4-8.2) Albumin 2.4 g/dL (3.4-5.0) Albumin/Globulin Ratio 0.7 (1.0-1.7) Glucose (Fingerstick) 197 mg/dL (70-99) 255 mg/dL (70-99) 333 mg/dL (70-99) Test 09/05/18 07:59 Glucose (Fingerstick) 250 mg/dL (70-99) Results All relevant outside records, renal labs, imaging studies, telemetry/EKG's were reviewed. DARLING SHORT MD September 05, 2018 10:17
[2018-09-05 10:32] LABS: BASO # 0.1 x10^3/uL (0.0-0.2); BASO % 1 % (0-3); EOS # 0.1 x10^3/uL (0.0-0.7); EOS % 1 % (0-3); HEMATOCRIT 26.5 % (36.0-47.0); HEMOGLOBIN 8.4 g/dL (12.0-15.5); LYMPH # 0.4 x10^3/uL (1.0-4.8); LYMPH % 5 % (24-48); MEAN CORPUSCULAR HEMOGLOBIN 30 pg (25-35); MEAN CORPUSCULAR HGB CONC 32 g/dL (31-37); MEAN CORPUSCULAR VOLUME 93 fL (79-100); MONO # 1.3 x10^3/uL (0.0-1.1); MONO % 15 % (0-9); NEUT % 78 % (31-73); PLATELET COUNT 88 x10^3/uL (140-400); RED BLOOD COUNT 2.85 x10^6/uL (3.50-5.40); RED CELL DISTRIBUTION WIDTH 19.9 % (11.5-14.5); WHITE BLOOD COUNT 8.9 x10^3/uL (4.0-11.0)
--- NOTE | 2018-09-05 10:40 | NUR ---
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 Pt to be in contact precautions until there are 2 negative urine cultures 7 days apart without antibiotics.
[2018-09-05 10:54] LABS: ALBUMIN 2.8 g/dL (3.4-5.0); CALCIUM 7.6 mg/dL (8.5-10.1); CREATININE 7.1 mg/dL (0.6-1.0); GFR 5.9; POTASSIUM 3.5 mmol/L (3.5-5.1); TOTAL BILIRUBIN 0.9 mg/dL (0.2-1.0); TOTAL PROTEIN 5.5 g/dL (6.4-8.2)
--- NOTE | 2018-09-05 11:13 | PDOC ---
Objective: Objective: 5 stools charted. Had paracentesis yesterday - report pending. Vital Signs: Vital Signs Date Time Temp Pulse Resp B/P (MAP) Pulse Ox O2 Delivery O2 Flow Rate FiO2 09/05/18 07:00 97.5 86 18 81/32 (48) 98 Room Air 97.5 Labs: Laboratory Tests Test 09/04/18 15:00 09/04/18 15:07 09/04/18 16:53 09/04/18 21:30 White Blood Count 8.8 x10^3/uL Red Blood Count 2.90 x10^6/uL Hemoglobin 8.7 g/dL Hematocrit 26.9 % Mean Corpuscular Volume 93 fL Mean Corpuscular Hemoglobin 30 pg Mean Corpuscular Hemoglobin Concent 32 g/dL Red Cell Distribution Width 19.0 % Platelet Count 85 x10^3/uL Neutrophils (%) (Auto) 80 % Lymphocytes (%) (Auto) 4 % Monocytes (%) (Auto) 15 % Eosinophils (%) (Auto) 1 % Basophils (%) (Auto) 0 % Neutrophils # (Auto) 7.0 x10^3uL Lymphocytes # (Auto) 0.3 x10^3/uL Monocytes # (Auto) 1.3 x10^3/uL Eosinophils # (Auto) 0.0 x10^3/uL Basophils # (Auto) 0.0 x10^3/uL Segmented Neutrophils % 85 % Band Neutrophils % 8 % Lymphocytes % 2 % Monocytes % 4 % Eosinophils % 1 % Platelet Estimate Decreased Anisocytosis Slight Prothrombin Time 16.4 SEC Prothromb Time International Ratio 1.4 Sodium Level 131 mmol/L Potassium Level 3.6 mmol/L Chloride Level 94 mmol/L Carbon Dioxide Level 18 mmol/L Anion Gap 19 Blood Urea Nitrogen 50 mg/dL Creatinine 6.4 mg/dL Estimated GFR (Cockcroft-Gault) 6.6 BUN/Creatinine Ratio 8 Glucose Level 213 mg/dL Calcium Level 8.3 mg/dL Total Bilirubin 1.3 mg/dL Aspartate Amino Transf (AST/SGOT) 23 U/L Alanine Aminotransferase (ALT/SGPT) 21 U/L Alkaline Phosphatase 210 U/L Ammonia 64 mcmol/L Total Protein 5.9 g/dL Albumin 2.4 g/dL Albumin/Globulin Ratio 0.7 Glucose (Fingerstick) 197 mg/dL 255 mg/dL 333 mg/dL Test 09/05/18 07:59 09/05/18 10:15 Glucose (Fingerstick) 250 mg/dL White Blood Count 8.9 x10^3/uL Red Blood Count 2.85 x10^6/uL Hemoglobin 8.4 g/dL Hematocrit 26.5 % Mean Corpuscular Volume 93 fL Mean Corpuscular Hemoglobin 30 pg Mean Corpuscular Hemoglobin Concent 32 g/dL Red Cell Distribution Width 19.9 % Platelet Count 88 x10^3/uL Neutrophils (%) (Auto) 78 % Lymphocytes (%) (Auto) 5 % Monocytes (%) (Auto) 15 % Eosinophils (%) (Auto) 1 % Basophils (%) (Auto) 1 % Neutrophils # (Auto) 7.0 x10^3uL Lymphocytes # (Auto) 0.4 x10^3/uL Monocytes # (Auto) 1.3 x10^3/uL Eosinophils # (Auto) 0.1 x10^3/uL Basophils # (Auto) 0.1 x10^3/uL Sodium Level 129 mmol/L Potassium Level 3.5 mmol/L Chloride Level 94 mmol/L Carbon Dioxide Level 17 mmol/L Anion Gap 18 Blood Urea Nitrogen 56 mg/dL Creatinine 7.1 mg/dL Estimated GFR (Cockcroft-Gault) 5.9 BUN/Creatinine Ratio 8 Glucose Level 321 mg/dL Calcium Level 7.6 mg/dL Total Bilirubin 0.9 mg/dL Aspartate Amino Transf (AST/SGOT) 20 U/L Alanine Aminotransferase (ALT/SGPT) 17 U/L Alkaline Phosphatase 159 U/L Total Protein 5.5 g/dL Albumin 2.8 g/dL Albumin/Globulin Ratio 1.0 PE: GEN: dialyzing LUNGS: room air ABD: soft, less distended post paracentesis NEURO/PSYCH: A & O 3 - she spoke softly and was hard to understand, then raised her voice and was not very pleasant when I asked for clarification A/P: Fall, left knee pain, abnormal imaging ESLD (DIAZ), recurrent ascites requiring frequent paracentesis, chronic anemia ESRD on HD, hyponatremia -- Not very nice today. Continue same per GI. Paracentesis as needed. JENNIE ABRAMS September 05, 2018 11:13
[2018-09-05] MEDS ORDERED: ALBUMIN HUMAN 25% 200 ML IV STA (11:17)
--- NOTE | 2018-09-05 11:46 | PDOC ---
Infectious Disease Note Vital Sign Vital Signs Vital Signs Date Time Temp Pulse Resp B/P (MAP) Pulse Ox O2 Delivery O2 Flow Rate FiO2 09/05/18 07:00 97.5 86 18 81/32 (48) 98 Room Air 97.5 Labs Lab Laboratory Tests Test 09/04/18 15:00 09/04/18 15:07 09/04/18 16:53 09/04/18 21:30 White Blood Count 8.8 x10^3/uL (4.0-11.0) Red Blood Count 2.90 x10^6/uL (3.50-5.40) Hemoglobin 8.7 g/dL (12.0-15.5) Hematocrit 26.9 % (36.0-47.0) Mean Corpuscular Volume 93 fL (79-100) Mean Corpuscular Hemoglobin 30 pg (25-35) Mean Corpuscular Hemoglobin Concent 32 g/dL (31-37) Red Cell Distribution Width 19.0 % (11.5-14.5) Platelet Count 85 x10^3/uL (140-400) Neutrophils (%) (Auto) 80 % (31-73) Lymphocytes (%) (Auto) 4 % (24-48) Monocytes (%) (Auto) 15 % (0-9) Eosinophils (%) (Auto) 1 % (0-3) Basophils (%) (Auto) 0 % (0-3) Neutrophils # (Auto) 7.0 x10^3uL (1.8-7.7) Lymphocytes # (Auto) 0.3 x10^3/uL (1.0-4.8) Monocytes # (Auto) 1.3 x10^3/uL (0.0-1.1) Eosinophils # (Auto) 0.0 x10^3/uL (0.0-0.7) Basophils # (Auto) 0.0 x10^3/uL (0.0-0.2) Segmented Neutrophils % 85 % (35-66) Band Neutrophils % 8 % (0-9) Lymphocytes % 2 % (24-48) Monocytes % 4 % (0-10) Eosinophils % 1 % (0-5) Platelet Estimate Decreased (ADEQUATE) Anisocytosis Slight Prothrombin Time 16.4 SEC (11.7-14.0) Prothromb Time International Ratio 1.4 (0.8-1.1) Sodium Level 131 mmol/L (136-145) Potassium Level 3.6 mmol/L (3.5-5.1) Chloride Level 94 mmol/L (98-107) Carbon Dioxide Level 18 mmol/L (21-32) Anion Gap 19 (6-14) Blood Urea Nitrogen 50 mg/dL (7-20) Creatinine 6.4 mg/dL (0.6-1.0) Estimated GFR (Cockcroft-Gault) 6.6 BUN/Creatinine Ratio 8 (6-20) Glucose Level 213 mg/dL (70-99) Calcium Level 8.3 mg/dL (8.5-10.1) Total Bilirubin 1.3 mg/dL (0.2-1.0) Aspartate Amino Transf (AST/SGOT) 23 U/L (15-37) Alanine Aminotransferase (ALT/SGPT) 21 U/L (14-59) Alkaline Phosphatase 210 U/L (46-116) Ammonia 64 mcmol/L (11-34) Total Protein 5.9 g/dL (6.4-8.2) Albumin 2.4 g/dL (3.4-5.0) Albumin/Globulin Ratio 0.7 (1.0-1.7) Glucose (Fingerstick) 197 mg/dL (70-99) 255 mg/dL (70-99) 333 mg/dL (70-99) Test 09/05/18 07:59 09/05/18 10:15 Glucose (Fingerstick) 250 mg/dL (70-99) White Blood Count 8.9 x10^3/uL (4.0-11.0) Red Blood Count 2.85 x10^6/uL (3.50-5.40) Hemoglobin 8.4 g/dL (12.0-15.5) Hematocrit 26.5 % (36.0-47.0) Mean Corpuscular Volume 93 fL (79-100) Mean Corpuscular Hemoglobin 30 pg (25-35) Mean Corpuscular Hemoglobin Concent 32 g/dL (31-37) Red Cell Distribution Width 19.9 % (11.5-14.5) Platelet Count 88 x10^3/uL (140-400) Neutrophils (%) (Auto) 78 % (31-73) Lymphocytes (%) (Auto) 5 % (24-48) Monocytes (%) (Auto) 15 % (0-9) Eosinophils (%) (Auto) 1 % (0-3) Basophils (%) (Auto) 1 % (0-3) Neutrophils # (Auto) 7.0 x10^3uL (1.8-7.7) Lymphocytes # (Auto) 0.4 x10^3/uL (1.0-4.8) Monocytes # (Auto) 1.3 x10^3/uL (0.0-1.1) Eosinophils # (Auto) 0.1 x10^3/uL (0.0-0.7) Basophils # (Auto) 0.1 x10^3/uL (0.0-0.2) Sodium Level 129 mmol/L (136-145) Potassium Level 3.5 mmol/L (3.5-5.1) Chloride Level 94 mmol/L (98-107) Carbon Dioxide Level 17 mmol/L (21-32) Anion Gap 18 (6-14) Blood Urea Nitrogen 56 mg/dL (7-20) Creatinine 7.1 mg/dL (0.6-1.0) Estimated GFR (Cockcroft-Gault) 5.9 BUN/Creatinine Ratio 8 (6-20) Glucose Level 321 mg/dL (70-99) Calcium Level 7.6 mg/dL (8.5-10.1) Total Bilirubin 0.9 mg/dL (0.2-1.0) Aspartate Amino Transf (AST/SGOT) 20 U/L (15-37) Alanine Aminotransferase (ALT/SGPT) 17 U/L (14-59) Alkaline Phosphatase 159 U/L (46-116) Total Protein 5.5 g/dL (6.4-8.2) Albumin 2.8 g/dL (3.4-5.0) Albumin/Globulin Ratio 1.0 (1.0-1.7) Objective Assessment s/p fall left knee contusion CKD on HD H/o UTI - c/o discomfort Abx allegies - has tolerated Zosyn/Levoflox Ascites s/p Paracentesis 09/04 Plan Plan of Care Straight cath for UA C and S F/u labs Await Ortho eval D/w Dr. Velazquez Thank you # [phone] CANDE LEDESMA MD September 05, 2018 11:46
--- NOTE | 2018-09-05 12:20 | NUR ---
ALEXANDER following for discharge planning. Discussed with RN, pt is from home. MWF dialysis pt. PT/OT ordered. SW will continue to follow for any discharge planning needs.
[2018-09-05 15:00] VITALS: BP 81/22
--- NOTE | 2018-09-05 15:04 | RAD ---
Ultrasound-guided paracentesis 09/05/2018 3:01 PM Procedure: The risks and benefits of the procedure were discussed the patient. Informed consent was obtained. A timeout procedure was performed. Sonographic evaluation of the abdomen was performed demonstrating ascites . The right lower quadrant was prepped and draped using maximum sterile barrier technique. 1% lidocaine without epinephrine was administered for local anesthesia. Real-time ultrasonographic guidance was used in passing a 5 Serbian Yueh catheter into the fluid collection. 12 L of serous ascites was removed. The catheter was removed and pressure held to achieve hemostasis. A sterile dressing was applied. Impression: Successful ultrasound-guided paracentesis
--- NOTE | 2018-09-05 17:28 | NUR ---
Attempted to administer Calcium Acetate and Insulin, Pt asleep at this time, declined dinner but it has been left at bedside for when Pt wakes up.
[2018-09-05 19:00] VITALS: BP 83/23
[2018-09-05] MEDS: INSULIN GLARGINE 300 UNITS/3 ML INSULN.PEN. SQ SCH (22:09)
[2018-09-05 23:00] VITALS: BP 78/56
--- NOTE | 2018-09-06 01:21 | CONS ---
DATE OF CONSULTATION: 09/05/2018 INFECTIOUS DISEASE CONSULTATION: LOCATION: The patient is in room 442, but seen in dialysis. REQUESTING PHYSICIAN: Dr. Infante. REASON FOR CONSULTATION: History of VRE. HISTORY OF PRESENT ILLNESS: The patient is a 62-year-old female with history of chronic kidney disease, on hemodialysis and has a history of DIAZ with varices and recurrent ascites and need for paracentesis. She states on 09/03/2018, she was scheduled to have a paracentesis and she was getting ready to get to the door, she felt dizzy and fell down, striking her left knee on the concrete on the outside. She states her family picked her up, put her back into the recliner and subsequently brought her to [facility] Emergency Room after developing increased pain and swelling. She states at home, she was having some selective fevers and chills and has some discomfort in her vaginal area. She states she has had previous urinary tract infections despite being on dialysis and there was concern for what has been going on. She has no current nausea, no vomiting, no shortness of air. Denies any rashes. Her left knee is in a brace, but she states pain is mainly located on the inside aspect of her knee. PAST MEDICAL HISTORY: Positive for VRE, end-stage liver disease with DIAZ and cirrhosis and esophageal varices, history of ascites, hypertension, hyperlipidemia, COPD, diabetes, chronic kidney disease, on hemodialysis, hypothyroidism, depression, anxiety, cholelithiasis, colon polyps, hemorrhoids, recent urine culture in April with Klebsiella sensitive to cefepime, ceftriaxone, Cipro, ertapenem, gentamicin, meropenem, tobramycin, Bactrim. PAST SURGICAL HISTORY: Positive for Port-A-Cath placement to the right chest. hemodialysis catheter to the left chest, recurrent paracenteses with the last being on 09/04/2018, cataract removal, tonsillectomy, myringotomy and hysterectomy. REVIEW OF SYSTEMS: Otherwise negative. ALLERGIES: LISTED SULFA, CEPHALEXIN, DOXYCYCLINE, CIPRO. ALL UPSET HER STOMACH. She has tolerated Zosyn and levofloxacin. SOCIAL HISTORY: She lives at home. Denies any drugs. FAMILY HISTORY: Noncontributory. PHYSICAL EXAMINATION: VITAL SIGNS: She has been afebrile, temperature 97.5, respirations 18, pulse 86, blood pressure 81/32, satting 98% on room air. CONSTITUTIONAL: She is cooperative. She appears comfortable. She is undergoing dialysis. She has normal conjunctivae. Oral cavity, pharynx was clear. NECK: Supple, no JVD. LUNGS: Decreased in the bases, no wheeze. HEART: S1, S2. ABDOMEN: Protuberant, soft, no guarding. EXTREMITIES: Without clubbing, cyanosis. Her left knee is in immobilizer. The knee has some mild erythema. There is no gross warmth. The erythema is about her kneecap. There is trace fluid. SKIN: Warm to touch without signs of rash. NEUROLOGIC: She is nonfocal, moves all extremities. IVs, there is a Port-A-Cath in right chest without complications. Left chest hemodialysis catheter without complications. LABORATORY DATA: White count 8.9, hemoglobin 8.4, platelets of 88 with 78 segs. She did have 8 bands on arrival. Creatinine 7.1, glucose of 321, AST 20, ALT 17, alkaline phosphatase 159. IMPRESSION: 1. Lower extremity CT shows large joint fluid and there is some indentation identified in the lateral tibial plateau with lucency, large amount of edema in the soft tissues, degenerative changes throughout the knee, tiny ossific density. Other findings are reviewed. 2. Status post fall. 3. Left knee contusion. 4. Chronic kidney disease, on hemodialysis. 5. History of urinary tract infection, currently complains of some discomfort. 6. ANTIBIOTIC ALLERGY, has tolerated Zosyn and levofloxacin. 7. Ascites, status post paracentesis on the 16. RECOMMENDATIONS: We will obtain a straight cath, UA and C and S, rule out potential infection as a cause for her dizziness and fall. We will follow up on labs. Await for orthopedic evaluation. Discussed with Dr. Velazquez. Thank you for allowing me to see and participate in this patient's care. If you have any questions, please do not hesitate to contact me. CANDE LEDESMA MD DR: ERIKA/rebeka JOB#: [id number] / [id number]
[2018-09-06 03:00] VITALS: BP 76/53
[2018-09-06] MEDS: PANTOPRAZOLE 40 MG TABLET.DR. PO SCH (06:47)
[2018-09-06 07:00] VITALS: BP 88/30
--- NOTE | 2018-09-06 08:37 | PDOC ---
PROGRESS NOTES Chief Complaint Chief Complaint ESRD on HD - 2/2 hepatorenal syndrome Left knee pain with Large joint effusion - will have ortho see End-stage liver disease with recurrent ascites s/p paracentesis [id number] previously Recent history of vancomycin-resistant enterococci Encephalopathy/hyperammonemia Chronic anemia - EGD 04/24/18: grade 1 varices, gastritis History of Present Illness History of Present Illness 62-year-old female PMHx H/o ESLD (DIAZ), recurrent ascites/frequent paracentesis, PVT, hepatic encephalopathy, esophageal varices, ESRD on HD (hepatorenal syndrome), chronic anemia (iron deficient in 04/2018) requiring transfusions, thrombocytopenia admitted through ED after she fell, hurting her left knee and missing dialysis. She was supposed to have paracentesis yesterday as well. To ER instead w/ daughter because couldn't manage at home w/ significant pain and limited mobility. Has been having diarrhea - started on pancreatic enzymes last admission, not taking at home, and she is not taking lactulose or Xifaxin as prescribed either Has desired further eval for liver transplant but declined by [facility] due to past behavior, also unable to transfer to [facility] in the past due to insurance. No overnight events. Today c/o worse left knee pain, is in immobilizer. Hb stable, low. She is not oriented to day, date, year. CT left knee confirms large effusion and lipohemarthrosis, which is concerning for possible tibial plateau fracture. BP has been 70/50 Plan: Consult ortho to consider joint aspiration Increased midodrine dosing increase insulin Vitals Vitals Vital Signs Date Time Temp Pulse Resp B/P (MAP) Pulse Ox O2 Delivery O2 Flow Rate FiO2 09/06/18 03:00 98.8 99 20 76/53 (61) 95 Room Air 98.8 Physical Exam General: Alert, Oriented X3, Cooperative, moderate distress Lungs: Clear, Other Abdomen: Normal bowel sounds, Soft Labs LABS Laboratory Tests Test 09/05/18 10:15 09/05/18 16:34 09/05/18 20:27 White Blood Count 8.9 x10^3/uL (4.0-11.0) Red Blood Count 2.85 x10^6/uL (3.50-5.40) Hemoglobin 8.4 g/dL (12.0-15.5) Hematocrit 26.5 % (36.0-47.0) Mean Corpuscular Volume 93 fL (79-100) Mean Corpuscular Hemoglobin 30 pg (25-35) Mean Corpuscular Hemoglobin Concent 32 g/dL (31-37) Red Cell Distribution Width 19.9 % (11.5-14.5) Platelet Count 88 x10^3/uL (140-400) Neutrophils (%) (Auto) 78 % (31-73) Lymphocytes (%) (Auto) 5 % (24-48) Monocytes (%) (Auto) 15 % (0-9) Eosinophils (%) (Auto) 1 % (0-3) Basophils (%) (Auto) 1 % (0-3) Neutrophils # (Auto) 7.0 x10^3uL (1.8-7.7) Lymphocytes # (Auto) 0.4 x10^3/uL (1.0-4.8) Monocytes # (Auto) 1.3 x10^3/uL (0.0-1.1) Eosinophils # (Auto) 0.1 x10^3/uL (0.0-0.7) Basophils # (Auto) 0.1 x10^3/uL (0.0-0.2) Sodium Level 129 mmol/L (136-145) Potassium Level 3.5 mmol/L (3.5-5.1) Chloride Level 94 mmol/L (98-107) Carbon Dioxide Level 17 mmol/L (21-32) Anion Gap 18 (6-14) Blood Urea Nitrogen 56 mg/dL (7-20) Creatinine 7.1 mg/dL (0.6-1.0) Estimated GFR (Cockcroft-Gault) 5.9 BUN/Creatinine Ratio 8 (6-20) Glucose Level 321 mg/dL (70-99) Calcium Level 7.6 mg/dL (8.5-10.1) Total Bilirubin 0.9 mg/dL (0.2-1.0) Aspartate Amino Transf (AST/SGOT) 20 U/L (15-37) Alanine Aminotransferase (ALT/SGPT) 17 U/L (14-59) Alkaline Phosphatase 159 U/L (46-116) Total Protein 5.5 g/dL (6.4-8.2) Albumin 2.8 g/dL (3.4-5.0) Albumin/Globulin Ratio 1.0 (1.0-1.7) Glucose (Fingerstick) 215 mg/dL (70-99) 283 mg/dL (70-99) Assessment and Plan Assessmemt and Plan Problems Medical Problems: (1) Fall Status: Acute (2) Hypotension Status: Acute (3) Knee effusion, left Status: Acute Comment Review of Relevant I have reviewed the following items chante (where applicable) has been applied. Labs Laboratory Tests Test 09/04/18 15:00 09/04/18 15:07 09/04/18 16:53 09/04/18 21:30 White Blood Count 8.8 x10^3/uL (4.0-11.0) Red Blood Count 2.90 x10^6/uL (3.50-5.40) Hemoglobin 8.7 g/dL (12.0-15.5) Hematocrit 26.9 % (36.0-47.0) Mean Corpuscular Volume 93 fL (79-100) Mean Corpuscular Hemoglobin 30 pg (25-35) Mean Corpuscular Hemoglobin Concent 32 g/dL (31-37) Red Cell Distribution Width 19.0 % (11.5-14.5) Platelet Count 85 x10^3/uL (140-400) Neutrophils (%) (Auto) 80 % (31-73) Lymphocytes (%) (Auto) 4 % (24-48) Monocytes (%) (Auto) 15 % (0-9) Eosinophils (%) (Auto) 1 % (0-3) Basophils (%) (Auto) 0 % (0-3) Neutrophils # (Auto) 7.0 x10^3uL (1.8-7.7) Lymphocytes # (Auto) 0.3 x10^3/uL (1.0-4.8) Monocytes # (Auto) 1.3 x10^3/uL (0.0-1.1) Eosinophils # (Auto) 0.0 x10^3/uL (0.0-0.7) Basophils # (Auto) 0.0 x10^3/uL (0.0-0.2) Segmented Neutrophils % 85 % (35-66) Band Neutrophils % 8 % (0-9) Lymphocytes % 2 % (24-48) Monocytes % 4 % (0-10) Eosinophils % 1 % (0-5) Platelet Estimate Decreased (ADEQUATE) Anisocytosis Slight Prothrombin Time 16.4 SEC (11.7-14.0) Prothromb Time International Ratio 1.4 (0.8-1.1) Sodium Level 131 mmol/L (136-145) Potassium Level 3.6 mmol/L (3.5-5.1) Chloride Level 94 mmol/L (98-107) Carbon Dioxide Level 18 mmol/L (21-32) Anion Gap 19 (6-14) Blood Urea Nitrogen 50 mg/dL (7-20) Creatinine 6.4 mg/dL (0.6-1.0) Estimated GFR (Cockcroft-Gault) 6.6 BUN/Creatinine Ratio 8 (6-20) Glucose Level 213 mg/dL (70-99) Calcium Level 8.3 mg/dL (8.5-10.1) Total Bilirubin 1.3 mg/dL (0.2-1.0) Aspartate Amino Transf (AST/SGOT) 23 U/L (15-37) Alanine Aminotransferase (ALT/SGPT) 21 U/L (14-59) Alkaline Phosphatase 210 U/L (46-116) Ammonia 64 mcmol/L (11-34) Total Protein 5.9 g/dL (6.4-8.2) Albumin 2.4 g/dL (3.4-5.0) Albumin/Globulin Ratio 0.7 (1.0-1.7) Glucose (Fingerstick) 197 mg/dL (70-99) 255 mg/dL (70-99) 333 mg/dL (70-99) Test 09/05/18 07:59 09/05/18 10:15 09/05/18 16:34 09/05/18 20:27 Glucose (Fingerstick) 250 mg/dL (70-99) 215 mg/dL (70-99) 283 mg/dL (70-99) White Blood Count 8.9 x10^3/uL (4.0-11.0) Red Blood Count 2.85 x10^6/uL (3.50-5.40) Hemoglobin 8.4 g/dL (12.0-15.5) Hematocrit 26.5 % (36.0-47.0) Mean Corpuscular Volume 93 fL (79-100) Mean Corpuscular Hemoglobin 30 pg (25-35) Mean Corpuscular Hemoglobin Concent 32 g/dL (31-37) Red Cell Distribution Width 19.9 % (11.5-14.5) Platelet Count 88 x10^3/uL (140-400) Neutrophils (%) (Auto) 78 % (31-73) Lymphocytes (%) (Auto) 5 % (24-48) Monocytes (%) (Auto) 15 % (0-9) Eosinophils (%) (Auto) 1 % (0-3) Basophils (%) (Auto) 1 % (0-3) Neutrophils # (Auto) 7.0 x10^3uL (1.8-7.7) Lymphocytes # (Auto) 0.4 x10^3/uL (1.0-4.8) Monocytes # (Auto) 1.3 x10^3/uL (0.0-1.1) Eosinophils # (Auto) 0.1 x10^3/uL (0.0-0.7) Basophils # (Auto) 0.1 x10^3/uL (0.0-0.2) Sodium Level 129 mmol/L (136-145) Potassium Level 3.5 mmol/L (3.5-5.1) Chloride Level 94 mmol/L (98-107) Carbon Dioxide Level 17 mmol/L (21-32) Anion Gap 18 (6-14) Blood Urea Nitrogen 56 mg/dL (7-20) Creatinine 7.1 mg/dL (0.6-1.0) Estimated GFR (Cockcroft-Gault) 5.9 BUN/Creatinine Ratio 8 (6-20) Glucose Level 321 mg/dL (70-99) Calcium Level 7.6 mg/dL (8.5-10.1) Total Bilirubin 0.9 mg/dL (0.2-1.0) Aspartate Amino Transf (AST/SGOT) 20 U/L (15-37) Alanine Aminotransferase (ALT/SGPT) 17 U/L (14-59) Alkaline Phosphatase 159 U/L (46-116) Total Protein 5.5 g/dL (6.4-8.2) Albumin 2.8 g/dL (3.4-5.0) Albumin/Globulin Ratio 1.0 (1.0-1.7) Laboratory Tests Test 5/17/19 10:15 09/05/18 16:34 09/05/18 20:27 White Blood Count 8.9 x10^3/uL (4.0-11.0) Red Blood Count 2.85 x10^6/uL (3.50-5.40) Hemoglobin 8.4 g/dL (12.0-15.5) Hematocrit 26.5 % (36.0-47.0) Mean Corpuscular Volume 93 fL (79-100) Mean Corpuscular Hemoglobin 30 pg (25-35) Mean Corpuscular Hemoglobin Concent 32 g/dL (31-37) Red Cell Distribution Width 19.9 % (11.5-14.5) Platelet Count 88 x10^3/uL (140-400) Neutrophils (%) (Auto) 78 % (31-73) Lymphocytes (%) (Auto) 5 % (24-48) Monocytes (%) (Auto) 15 % (0-9) Eosinophils (%) (Auto) 1 % (0-3) Basophils (%) (Auto) 1 % (0-3) Neutrophils # (Auto) 7.0 x10^3uL (1.8-7.7) Lymphocytes # (Auto) 0.4 x10^3/uL (1.0-4.8) Monocytes # (Auto) 1.3 x10^3/uL (0.0-1.1) Eosinophils # (Auto) 0.1 x10^3/uL (0.0-0.7) Basophils # (Auto) 0.1 x10^3/uL (0.0-0.2) Sodium Level 129 mmol/L (136-145) Potassium Level 3.5 mmol/L (3.5-5.1) Chloride Level 94 mmol/L (98-107) Carbon Dioxide Level 17 mmol/L (21-32) Anion Gap 18 (6-14) Blood Urea Nitrogen 56 mg/dL (7-20) Creatinine 7.1 mg/dL (0.6-1.0) Estimated GFR (Cockcroft-Gault) 5.9 BUN/Creatinine Ratio 8 (6-20) Glucose Level 321 mg/dL (70-99) Calcium Level 7.6 mg/dL (8.5-10.1) Total Bilirubin 0.9 mg/dL (0.2-1.0) Aspartate Amino Transf (AST/SGOT) 20 U/L (15-37) Alanine Aminotransferase (ALT/SGPT) 17 U/L (14-59) Alkaline Phosphatase 159 U/L (46-116) Total Protein 5.5 g/dL (6.4-8.2) Albumin 2.8 g/dL (3.4-5.0) Albumin/Globulin Ratio 1.0 (1.0-1.7) Glucose (Fingerstick) 215 mg/dL (70-99) 283 mg/dL (70-99) Medications Current Medications Ondansetron HCl (Zofran) 4 mg PRN Q8HRS PRN IV NAUSEA/VOMITING; Start 09/04/18 at 12:15; Stop 09/05/18 at 12:14; Status DC Fentanyl Citrate (Fentanyl 2ml Vial) 50 mcg PRN Q1HR PRN IV PAIN; Start 09/04/18 at 12:15; Stop 09/05/18 at 12:14; Status DC Rifaximin (Xifaxan) 550 mg Q12HR PO Last administered on 09/05/18at 21:44; Start 09/04/18 at 14:30 Lactulose (Lactulose) 20 gm PRN TID PRN PO CONSTIPATION; Start 09/04/18 at 13:45 Pantoprazole Sodium (Protonix) 40 mg DAILYAC PO Last administered on 09/06/18at 06:47; Start 09/04/18 at 14:00 Diphenhydramine HCl (Benadryl) 25 mg PRN Q6HRS PRN PO ITCHING Last administered on 09/05/18at 00:04; Start 09/04/18 at 14:15 Lidocaine/Sodium Bicarbonate (Buffered Lidocaine 1%) 3 ml STK-MED ONCE .ROUTE ; Start 09/04/18 at 14:34; Stop 09/04/18 at 14:35; Status DC Lidocaine/Sodium Bicarbonate (Buffered Lidocaine 1%) 9 ml 1X ONCE INJ Last administered on 09/04/18at 14:57; Start 09/04/18 at 14:45; Stop 09/04/18 at 14:46; Status DC Albumin Human 100 ml @ 100 mls/hr 1X ONCE IV Last administered on 09/04/18at 15:30; Start 09/04/18 at 15:30; Stop 09/04/18 at 16:29; Status DC Albumin Human 100 ml @ 100 mls/hr 1X ONCE IV Last administered on 09/04/18at 15:30; Start 09/04/18 at 15:30; Stop 09/04/18 at 16:29; Status DC Albumin Human 100 ml @ 100 mls/hr 1X ONCE IV Last administered on 09/04/18at 15:44; Start 09/04/18 at 16:00; Stop 09/04/18 at 16:59; Status DC Diphenhydramine HCl (Benadryl) 25 mg Q6HRS PO ; Start 09/04/18 at 18:00; Status UNV Insulin Glargine (Lantus) 10 units HS SQ Last administered on 09/05/18at 22:09; Start 09/04/18 at 21:00 Lactulose (Lactulose) 20 gm TID PO ; Start 09/04/18 at 21:00 Calcium Acetate (Phoslo) 667 mg TIDWMEALS PO Last administered on 09/05/18at 08:05; Start 09/04/18 at 18:00 Insulin Human Lispro (HumaLOG) 0-5 UNITS TIDWMEALS SQ Last administered on 09/05/18at 08:09; Start 09/05/18 at 08:00 Dextrose (Dextrose 50%-Water Syringe) 12.5 gm PRN Q15MIN PRN IV SEE COMMENTS; Start 09/04/18 at 17:45 Insulin Human Lispro (HumaLOG) 6 units 1X ONCE SQ Last administered on 09/04/18at 18:11; Start 09/04/18 at 18:00; Stop 09/04/18 at 18:01; Status DC Cyclobenzaprine HCl (Flexeril) 10 mg PRN Q6HRS PRN PO MUSCLE SPASMS Last administered on 09/05/18at 05:56; Start 09/04/18 at 20:00 Acetaminophen/ Hydrocodone Bitart (Lortab 5/325) 1 tab PRN Q6HRS PRN PO PAIN Last administered on 09/04/18at 22:42; Start 09/04/18 at 20:45 Sodium Chloride 1,000 ml @ 1,000 mls/hr Q1H PRN IV hypotension; Start 09/05/18 at 09:30; Stop 09/05/18 at 19:00; Status DC Diphenhydramine HCl (Benadryl) 25 mg 1X PRN PRN IV ITCHING; Start 09/05/18 at 09:15; Stop 09/05/18 at 19:00; Status DC Diphenhydramine HCl (Benadryl) 25 mg 1X PRN PRN IV ITCHING; Start 09/05/18 at 09:15; Stop 09/05/18 at 19:00; Status DC Sodium Chloride 1,000 ml @ 400 mls/hr Q2H30M PRN IV PATENCY; Start 09/05/18 at 09:00; Stop 09/05/18 at 19:00; Status DC Info (PHARMACY MONITORING -- do not chart) 1 each PRN DAILY PRN MC SEE COMMENTS; Start 09/05/18 at 09:15 Albumin Human 200 ml @ 200 mls/hr 1X STAT IV Last administered on 09/05/18at 11:28; Start 09/05/18 at 11:17; Stop 09/05/18 at 12:16; Status DC Active Scripts Active Reported Benadryl (Diphenhydramine Hcl) 25 Mg Capsule 25 Mg PO Q6HRS Calcium Acetate 667 Mg Tablet 667 Mg PO TIDWMEALS Dialyvite Tablet (Folic Acid/Vitamin B Comp W-C) 1 Each Tablet 1 Each PO DAILY Midodrine Hcl 5 Mg Tablet 5 Mg PO TID Cyclobenzaprine Hcl 5 Mg Tablet 1 Tab PO TID Omeprazole 40 Mg Capsule.dr 1 Cap PO DAILY Xifaxan (Rifaximin) 550 Mg Tablet 1 Tab PO BID Fusion Plus Capsule (Iron,Fum&Ps/Fa/Vit B&C#18/L.ca) 1 Each Capsule 1 Each PO Albuterol Sulfate Conc Neb Soln (Albuterol Sulfate) 2.5 Mg/0.5 Ml Vial.neb 2.5 Mg NEB Q6HRS PRN Lactulose 20 Gm/30 Ml Solution 20 Gm PO TID Lantus Solostar (Insulin Glargine,Hum.rec.anlog) 100 Unit/1 Ml Insuln.pen 0 SQ HS SSI Calcium + Vitamin D Tablet (Calcium Carbonate/Vitamin D3) 1 Each Tablet 1 Each PO Albuterol Sulfate Hfa Inhaler (Albuterol Sulfate) 8.5 Gm Hfa.aer.ad 8.5 Gm IH Novolog Flexpen (Insulin Aspart) 100 Unit/1 Ml Insuln.pen 0 SQ TIDAC ssi Synthroid (Levothyroxine Sodium) 25 Mcg Tablet 300 Mcg PO DAILY Flovent 110MCG Hfa (Fluticasone Propionate) 12 Gm Aer.w.adap 12 Gm IH Vitals/I & O Vital Sign - Last 24 Hours 09/05/18 09/05/18 09/05/18 09/05/18 15:00 19:00 19:30 23:00 Temp 97.9 99.2 97.7 97.9 99.2 97.7 Pulse 105 102 98 Resp 16 20 20 B/P (MAP) 81/22 (41) 83/23 (43) 78/56 (63) Pulse Ox 98 96 99 O2 Delivery Room Air Room Air Room Air Room Air 09/06/18 03:00 Temp 98.8 98.8 Pulse 99 Resp 20 B/P (MAP) 76/53 (61) Pulse Ox 95 O2 Delivery Room Air Intake and Output 09/05/18 09/05/18 09/06/18 15:00 23:00 07:00 Output Total 0 ml 0 ml Balance 0 ml 0 ml Images Left knee CT - 1. Large joint effusion is identified concerning for lipohemarthrosis. 2. There is some indentation identified at the lateral tibial plateau with a lucency seen within the region. Given the presence of lipohemarthrosis it is possible that this is secondary to a fracture however limited evaluation secondary to a region of osseous demineralization most confluent within the proximal tibia. The osseous demineralization could be from benign osteopenia however a marrow infiltrative lesion is within the differential given that this finding is more prominent than typically seen and if further characterization is desired MRI could further evaluate to assess for an underlying lesion and fracture. 3. There is a large amount of edema seen within the soft tissues. 4. Calcific atherosclerosis. 5. Degenerative changes throughout the knee. 6. Tiny ossific density is seen within the intercondylar notch. Could be a calcification of the soft tissues but causes such as a small avulsion injury at anterior cruciate ligament is not excluded given this finding. DANA PHAN MD September 06, 2018 08:37
[2018-09-06] MEDS: CALCIUM ACETATE 667 MG CAPSULE PO SCH ×3 (08:38→17:48)
[2018-09-06] MEDS: LACTULOSE 20 GM/30 ML SOLUTION. PO SCH ×3 (08:39→20:47)
[2018-09-06] MEDS: rifAXIMin 550 MG TABLET PO SCH ×2 (08:39→20:49)
[2018-09-06] MEDS: INSULIN LISPRO 300 UNITS/3 ML INSULN.PEN. SQ SCH ×3 (08:46→17:58)
[2018-09-06 11:00] VITALS: BP 78/23
--- NOTE | 2018-09-06 11:24 | PDOC2 ---
CONSULT Date of Consult Date of Consult DATE: 09/06/18 TIME: 11:24 Reason for Consult Reason for Consult: Left knee injury, left knee pain, left knee effusion Identification/Chief Complaint Chief Complaint Left knee pain. Here in the hospital for other reasons as well. History of Present Illness Reason for Visit: Patient is a 62 year old female with history of diabetes, cirrhosis of the liver, end-stage renal disease on dialysis Saturday, Saturday, Saturday last dialyzed on Saturday who presented to the ER 09/04/18 complaining of moderate pain to the left knee that began 09/03/18 after she fell. She is now in a knee immob ilizer. X-rays and CT scan did not show any significant fracture, but there is evidence of ecchymosis and possibly some bone bruising based on my review those films. She is still having some knee pain but she is in the hospital for other reasons as well Past Medical History Cardiovascular: HTN, Hyperlipidemia Pulmonary: Asthma, COPD CENTRAL NERVOUS SYSTEM: Other GI: Constipation, GERD, GI bleed, Gastritis, Hemorrhoids, Other Heme/Onc: Anemia NOS Hepatobiliary: Cirrhosis Psych: Anxiety, Depression Musculoskeletal: Osteoarthritis Renal/: Acute renal failure, Chronic renal failure, UTI, Urinary Incontinence Endocrine: Diabetes, Hypothyroidism, Hyperparathyroidism Past Surgical History Past Surgical History: Cataract Removal, Tonsillectomy, Hysterectomy, Other Family History Family History: High Cholestrol, Hypertension, Family History Unknown Social History No ALCOHOL: none Drugs: None Current Problem List Problem List Problems Medical Problems: (1) Fall Status: Acute (2) Hypotension Status: Acute (3) Knee effusion, left Status: Acute Current Medications Current Medications Current Medications Ondansetron HCl (Zofran) 4 mg PRN Q8HRS PRN IV NAUSEA/VOMITING; Start 09/04/18 at 12:15; Stop 09/05/18 at 12:14; Status DC Fentanyl Citrate (Fentanyl 2ml Vial) 50 mcg PRN Q1HR PRN IV PAIN; Start 09/04/18 at 12:15; Stop 09/05/18 at 12:14; Status DC Rifaximin (Xifaxan) 550 mg Q12HR PO Last administered on 09/06/18at 08:39; Start 09/04/18 at 14:30 Lactulose (Lactulose) 20 gm PRN TID PRN PO CONSTIPATION; Start 09/04/18 at 13:45 Pantoprazole Sodium (Protonix) 40 mg DAILYAC PO Last administered on 09/06/18at 06:47; Start 09/04/18 at 14:00 Diphenhydramine HCl (Benadryl) 25 mg PRN Q6HRS PRN PO ITCHING Last administered on 09/05/18at 00:04; Start 09/04/18 at 14:15 Lidocaine/Sodium Bicarbonate (Buffered Lidocaine 1%) 3 ml STK-MED ONCE .ROUTE ; Start 09/04/18 at 14:34; Stop 09/04/18 at 14:35; Status DC Lidocaine/Sodium Bicarbonate (Buffered Lidocaine 1%) 9 ml 1X ONCE INJ Last administered on 09/04/18at 14:57; Start 09/04/18 at 14:45; Stop 09/04/18 at 14:4 6; Status DC Albumin Human 100 ml @ 100 mls/hr 1X ONCE IV Last administered on 09/04/18at 15:30; Start 09/04/18 at 15:30; Stop 09/04/18 at 16:29; Status DC Albumin Human 100 ml @ 100 mls/hr 1X ONCE IV Last administered on 09/04/18at 15:30; Start 09/04/18 at 15:30; Stop 09/04/18 at 16:29; Status DC Albumin Human 100 ml @ 100 mls/hr 1X ONCE IV Last administered on 09/04/18at 15:44; Start 09/04/18 at 16:00; Stop 09/04/18 at 16:59; Status DC Diphenhydramine HCl (Benadryl) 25 mg Q6HRS PO ; Start 09/04/18 at 18:00; Status UNV Insulin Glargine (Lantus) 10 units HS SQ Last administered on 09/05/18at 22:09; Start 09/04/18 at 21:00 Lactulose (Lactulose) 20 gm TID PO ; Start 09/04/18 at 21:00 Calcium Acetate (Phoslo) 667 mg TIDWMEALS PO Last administered on 09/06/18at 08:38; Start 09/04/18 at 18:00 Insulin Human Lispro (HumaLOG) 0-5 UNITS TIDWMEALS SQ Last administered on 09/06/18at 08:46; Start 09/05/18 at 08:00 Dextrose (Dextrose 50%-Water Syringe) 12.5 gm PRN Q15MIN PRN IV SEE COMMENTS; Start 09/04/18 at 17:45 Insulin Human Lispro (HumaLOG) 6 units 1X ONCE SQ Last administered on 09/04/18at 18:11; Start 09/04/18 at 18:00; Stop 09/04/18 at 18:01; Status DC Cyclobenzaprine HCl (Flexeril) 10 mg PRN Q6HRS PRN PO MUSCLE SPASMS Last administered on 09/05/18at 05:56; Start 09/04/18 at 20:00 Acetaminophen/ Hydrocodone Bitart (Lortab 5/325) 1 tab PRN Q6HRS PRN PO PAIN Last administered on 09/04/18at 22:42; Start 09/04/18 at 20:45 Sodium Chloride 1,000 ml @ 1,000 mls/hr Q1H PRN IV hypotension; Start 09/05/18 at 09:30; Stop 09/05/18 at 19:00; Status DC Diphenhydramine HCl (Benadryl) 25 mg 1X PRN PRN IV ITCHING; Start 09/05/18 at 09:15; Stop 09/05/18 at 19:00; Status DC Diphenhydramine HCl (Benadryl) 25 mg 1X PRN PRN IV ITCHING; Start 09/05/18 at 09:15; Stop 09/05/18 at 19:00; Status DC Sodium Chloride 1,000 ml @ 400 mls/hr Q2H30M PRN IV PATENCY; Start 09/05/18 at 09:00; Stop 09/05/18 at 19:00; Status DC Info (PHARMACY MONITORING -- do not chart) 1 each PRN DAILY PRN MC SEE COMMENTS; Start 09/05/18 at 09:15 Albumin Human 200 ml @ 200 mls/hr 1X STAT IV Last administered on 09/05/18at 11:28; Start 09/05/18 at 11:17; Stop 09/05/18 at 12:16; Status DC Non-Formulary Medication (Midodrine Hcl ) 5 mg TID PO ; Start 09/06/18 at 14:00; Status UNV Midodrine (Proamatine) 5 mg [id number] PO ; Start 09/06/18 at 13:00 Nystatin (Mycostatin) 1 kiana BID TP ; Start 09/06/18 at 13:00 Clotrimazole (Mycelex) 10 mg 5XDAY MM ; Start 09/06/18 at 14:00 Active Scripts Active Reported Benadryl (Diphenhydramine Hcl) 25 Mg Capsule 25 Mg PO Q6HRS Calcium Acetate 667 Mg Tablet 667 Mg PO TIDWMEALS Dialyvite Tablet (Folic Acid/Vitamin B Comp W-C) 1 Each Tablet 1 Each PO DAILY Midodrine Hcl 5 Mg Tablet 5 Mg PO TID Cyclobenzaprine Hcl 5 Mg Tablet 1 Tab PO TID Omeprazole 40 Mg Capsule.dr 1 Cap PO DAILY Xifaxan (Rifaximin) 550 Mg Tablet 1 Tab PO BID Fusion Plus Capsule (Iron,Fum&Ps/Fa/Vit B&C#18/L.ca) 1 Each Capsule 1 Each PO Albuterol Sulfate Conc Neb Soln (Albuterol Sulfate) 2.5 Mg/0.5 Ml Vial.neb 2.5 Mg NEB Q6HRS PRN Lactulose 20 Gm/30 Ml Solution 20 Gm PO TID Lantus Solostar (Insulin Glargine,Hum.rec.anlog) 100 Unit/1 Ml Insuln.pen 0 SQ H S SSI Calcium + Vitamin D Tablet (Calcium Carbonate/Vitamin D3) 1 Each Tablet 1 Each PO Albuterol Sulfate Hfa Inhaler (Albuterol Sulfate) 8.5 Gm Hfa.aer.ad 8.5 Gm IH Novolog Flexpen (Insulin Aspart) 100 Unit/1 Ml Insuln.pen 0 SQ TIDAC ssi Synthroid (Levothyroxine Sodium) 25 Mcg Tablet 300 Mcg PO DAILY Flovent 110MCG Hfa (Fluticasone Propionate) 12 Gm Aer.w.adap 12 Gm IH Allergies Allergies: Coded Allergies: Sulfa (Sulfonamide Antibiotics) (Verified Allergy, Severe, Swelling, 04/24/18) tongue swelling, rash cephalexin (Verified Allergy, Severe, Anaphylaxis, 05/22/18) TOLERATES AMOX, ZOSYN doxycycline (Verified Allergy, Intermediate, 04/24/18) gabapentin (Verified Allergy, Intermediate, Anxiety, 06/04/18) pt states gabapentin caused her to be admitted to [facility] where she presented "because I was out of my mind from that drug." insulin detemir (Verified Allergy, Intermediate, Rash, 04/24/18) morphine (Verified Allergy, Intermediate, rash, 04/24/18) niacin (Verified Allergy, Intermediate, Rash, 04/24/18) edema oxycodone (Verified Allergy, Intermediate, rash, 04/24/18) povidone-iodine (Verified Allergy, Intermediate, It, 04/24/18) rifaximin (Verified Allergy, Intermediate, Itching, 09/04/18) takes at home and multi times previously OK, just doesn't like it. tramadol (Verified Allergy, Intermediate, Rash, 04/24/18) I S O L A T I O N *CONTACT* (Verified Allergy, Unknown, 04/24/18) VRE - urine 12/20/17 codeine (Verified Adverse Reaction, Intermediate, Nausea and Vomiting, 04/24/18) erythromycin base (Verified Adverse Reaction, Intermediate, Diarrhea, 04/24/18) Physical Exam General: Alert, Cooperative HEENT: Atraumatic Abdomen: Other (massive ascites) Extremities: Other (the left knee does not have an effusion today, other than slight swelling. She does have trace ecchymosis over the proximal aspect of the medial collateral ligament, and most of the tenderness is medial. The gross alignment is normal. There was pain medially with valgus stress but no synovial laxity, and I suspect an MCL sprain based on the mechanism of injury and the current findings. The patella is not dislocated area of the extensor mechanism is intact. Except for the slight bruising the skin is intact red the lateral joint line is nontender. Difficult to assess her ACL became and PCL because she is holding the knee at about 30 of flexion, and has pain with attempts to move significantly.) Skin: No breakdown, Other (minor ecchymosis left knee medially) Neuro: Normal speech Vitals VITALS Vital Signs Date Time Temp Pulse Resp B/P (MAP) Pulse Ox O2 Delivery O2 Flow Rate FiO2 09/06/18 07:00 98.1 106 18 88/30 (49) 94 Room Air 98.1 Labs Labs Laboratory Tests Test 09/04/18 15:00 09/04/18 15:07 09/04/18 16:53 09/04/18 21:30 White Blood Count 8.8 x10^3/uL (4.0-11.0) Red Blood Count 2.90 x10^6/uL (3.50-5.40) Hemoglobin 8.7 g/dL (12.0-15.5) Hematocrit 26.9 % (36.0-47.0) Mean Corpuscular Volume 93 fL (79-100) Mean Corpuscular Hemoglobin 30 pg (25-35) Mean Corpuscular Hemoglobin Concent 32 g/dL (31-37) Red Cell Distribution Width 19.0 % (11.5-14.5) Platelet Count 85 x10^3/uL (140-400) Neutrophils (%) (Auto) 80 % (31-73) Lymphocytes (%) (Auto) 4 % (24-48) Monocytes (%) (Auto) 15 % (0-9) Eosinophils (%) (Auto) 1 % (0-3) Basophils (%) (Auto) 0 % (0-3) Neutrophils # (Auto) 7.0 x10^3uL (1.8-7.7) Lymphocytes # (Auto) 0.3 x10^3/uL (1.0-4.8) Monocytes # (Auto) 1.3 x10^3/uL (0.0-1.1) Eosinophils # (Auto) 0.0 x10^3/uL (0.0-0.7) Basophils # (Auto) 0.0 x10^3/uL (0.0-0.2) Segmented Neutrophils % 85 % (35-66) Band Neutrophils % 8 % (0-9) Lymphocytes % 2 % (24-48) Monocytes % 4 % (0-10) Eosinophils % 1 % (0-5) Platelet Estimate Decreased (ADEQUATE) Anisocytosis Slight Prothrombin Time 16.4 SEC (11.7-14.0) Prothromb Time International Ratio 1.4 (0.8-1.1) Sodium Level 131 mmol/L (136-145) Potassium Level 3.6 mmol/L (3.5-5.1) Chloride Level 94 mmol/L (98-107) Carbon Dioxide Level 18 mmol/L (21-32) Anion Gap 19 (6-14) Blood Urea Nitrogen 50 mg/dL (7-20) Creatinine 6.4 mg/dL (0.6-1.0) Estimated GFR (Cockcroft-Gault) 6.6 BUN/Creatinine Ratio 8 (6-20) Glucose Level 213 mg/dL (70-99) Calcium Level 8.3 mg/dL (8.5-10.1) Total Bilirubin 1.3 mg/dL (0.2-1.0) Aspartate Amino Transf (AST/SGOT) 23 U/L (15-37) Alanine Aminotransferase (ALT/SGPT) 21 U/L (14-59) Alkaline Phosphatase 210 U/L (46-116) Ammonia 64 mcmol/L (11-34) Total Protein 5.9 g/dL (6.4-8.2) Albumin 2.4 g/dL (3.4-5.0) Albumin/Globulin Ratio 0.7 (1.0-1.7) Glucose (Fingerstick) 197 mg/dL (70-99) 255 mg/dL (70-99) 333 mg/dL (70-99) Test 09/05/18 07:59 09/05/18 10:15 09/05/18 16:34 09/05/18 20:27 Glucose (Fingerstick) 250 mg/dL (70-99) 215 mg/dL (70-99) 283 mg/dL (70-99) White Blood Count 8.9 x10^3/uL (4.0-11.0) Red Blood Count 2.85 x10^6/uL (3.50-5.40) Hemoglobin 8.4 g/dL (12.0-15.5) Hematocrit 26.5 % (36.0-47.0) Mean Corpuscular Volume 93 fL (79-100) Mean Corpuscular Hemoglobin 30 pg (25-35) Mean Corpuscular Hemoglobin Concent 32 g/dL (31-37) Red Cell Distribution Width 19.9 % (11.5-14.5) Platelet Count 88 x10^3/uL (140-400) Neutrophils (%) (Auto) 78 % (31-73) Lymphocytes (%) (Auto) 5 % (24-48) Monocytes (%) (Auto) 15 % (0-9) Eosinophils (%) (Auto) 1 % (0-3) Basophils (%) (Auto) 1 % (0-3) Neutrophils # (Auto) 7.0 x10^3uL (1.8-7.7) Lymphocytes # (Auto) 0.4 x10^3/uL (1.0-4.8) Monocytes # (Auto) 1.3 x10^3/uL (0.0-1.1) Eosinophils # (Auto) 0.1 x10^3/uL (0.0-0.7) Basophils # (Auto) 0.1 x10^3/uL (0.0-0.2) Sodium Level 129 mmol/L (136-145) Potassium Level 3.5 mmol/L (3.5-5.1) Chloride Level 94 mmol/L (98-107) Carbon Dioxide Level 17 mmol/L (21-32) Anion Gap 18 (6-14) Blood Urea Nitrogen 56 mg/dL (7-20) Creatinine 7.1 mg/dL (0.6-1.0) Estimated GFR (Cockcroft-Gault) 5.9 BUN/Creatinine Ratio 8 (6-20) Glucose Level 321 mg/dL (70-99) Calcium Level 7.6 mg/dL (8.5-10.1) Total Bilirubin 0.9 mg/dL (0.2-1.0) Aspartate Amino Transf (AST/SGOT) 20 U/L (15-37) Alanine Aminotransferase (ALT/SGPT) 17 U/L (14-59) Alkaline Phosphatase 159 U/L (46-116) Total Protein 5.5 g/dL (6.4-8.2) Albumin 2.8 g/dL (3.4-5.0) Albumin/Globulin Ratio 1.0 (1.0-1.7) Test 09/06/18 08:10 Glucose (Fingerstick) 251 mg/dL (70-99) Laboratory Tests Test 09/05/18 16:34 09/05/18 20:27 09/06/18 08:10 Glucose (Fingerstick) 215 mg/dL (70-99) 283 mg/dL (70-99) 251 mg/dL (70-99) Images Images Reports reviewed, images independently reviewed, including x-rays and CT scan of the left knee. X-rays show normal alignment and no definitive fracture. CT scan shows effusion and lipohemarthrosis. There is probable bone edema in the lateral tibia and a possible nondisplaced fracture. IMAGING REPORT Signed PATIENT: YANIRA BRAVO ACCOUNT: [id number] : 1955 LOCATION: ER AGE: 62 SEX: F EXAM STATUS: REG ER ORD. PHYSICIAN: KOLE AKERS APRN REASON: fall knee pain possible fx PROCEDURE: CT LOWER EXTREMITY WO LEFT INDICATION: Trauma with pain in the knee COMPARISON: Plain film from earlier same day TECHNIQUE: Axial CT images obtained through the left knee without contrast. One or more of the following individualized dose reduction techniques were utilized for this examination: 1. Automated exposure control; 2. Adjustment of the mA and/or kV according to patient size; 3. Use of iterative reconstruction technique. FINDINGS: No evidence of dislocation. There are some degenerative changes the knee with osteophyte formation. Calcific atherosclerosis. Patchy regions of osseous demineralization including a confluent region within the proximal tibia. Large joint effusion with portions of it high density concerning for blood. At the distal femoral diaphysis there is an apparent cortical step-off on the sagittal images but this is in a region of motion which is the most likely cause. There is some indentation of the anterior aspect of the lateral tibial plateau with a lucency in the area. Edema of the soft tissues. Mild anterior indentation of the medial femoral condyle as well as mild indentation of the lateral femoral condyle. This is a very mild finding and could be the patient's baseline but mild impaction injuries of unknown age are within the differential. There is a small ossification in the intercondylar notch of the distal femur laterally. Tiny osseous excrescence off of the medial femur distally. IMPRESSION: 1. Large joint effusion is identified concerning for lipohemarthrosis. 2. There is some indentation identified at the lateral tibial plateau with a lucency seen within the region. Given the presence of lipohemarthrosis it is possible that this is secondary to a fracture however limited evaluation secondary to a region of osseous demineralization most confluent within the proximal tibia. The osseous demineralization could be from benign osteopenia however a marrow infiltrative lesion is within the differential given that this finding is more prominent than typically seen and if further characterization is desired MRI could further evaluate to assess for an underlying lesion and fracture. 3. There is a large amount of edema seen within the soft tissues. 4. Calcific atherosclerosis. 5. Degenerative changes throughout the knee. 6. Tiny ossific density is seen within the intercondylar notch. Could be a calcification of the soft tissues but causes such as a small avulsion injury at anterior cruciate ligament is not excluded given this finding. Electronically signed by: Alexis Ayala MD (09/04/2018 11:06 AM) [facility] Assessment/Plan Assessment/Plan Left knee injury, probable medial collateral ligament sprain based on mechanism and exam findings. This can be treated in a hinged knee brace. There is likely an associated nondisplaced lateral tibia fracture, which also can be treated in a hinged knee brace. No surgery needed. I don't feel she needs an MRI. Plan: Bracing, weightbearing to pain tolerance, and office follow-up. Ice packs to the left knee when in bed. She may remove the brace or immobilizer when in bed. Discharge planning for Saturday acceptable from knee standpoint. Office follow up with [facility] 09/29/2108. Call for appointment. GAYATHRI CHANDLER MD September 06, 2018 11:24
[2018-09-06] MEDS ORDERED: MIDODRINE 5 MG TABLET PO ONE (12:45)
[2018-09-06] MEDS: LACTOBACILLUS RHAMNOSUS GG 1 CAPSULE. PO SCH ×2 (12:55→20:48)
[2018-09-06] MEDS: NYSTATIN 100,000 UNIT/GM TOPICAL CREAM 15GM TUBE. TP SCH ×2 (12:55→20:50)
[2018-09-06] MEDS: PHENYLEPH/MINERAL OIL/PETROLAT RECTAL OINTMENT 28GM TUBE. RC PRN (12:56)
[2018-09-06] MEDS ORDERED: MIDODRINE 5 MG TABLET PO SCH (13:00)
--- NOTE | 2018-09-06 13:10 | PDOC ---
G I PROGRESS NOTE Subjective Soiled the bed; otherwise no particular GI complaints. Wonders about her blood pressure. Objective BP's 70-80's systolic. Physical Exam Lungs clear. RRR Abdomen soft with ascites. Review of Relevant I have reviewed the following items chante (where applicable) has been applied. Labs Laboratory Tests Test 09/04/18 15:00 09/04/18 15:07 09/04/18 16:53 09/04/18 21:30 White Blood Count 8.8 x10^3/uL (4.0-11.0) Red Blood Count 2.90 x10^6/uL (3.50-5.40) Hemoglobin 8.7 g/dL (12.0-15.5) Hematocrit 26.9 % (36.0-47.0) Mean Corpuscular Volume 93 fL (79-100) Mean Corpuscular Hemoglobin 30 pg (25-35) Mean Corpuscular Hemoglobin Concent 32 g/dL (31-37) Red Cell Distribution Width 19.0 % (11.5-14.5) Platelet Count 85 x10^3/uL (140-400) Neutrophils (%) (Auto) 80 % (31-73) Lymphocytes (%) (Auto) 4 % (24-48) Monocytes (%) (Auto) 15 % (0-9) Eosinophils (%) (Auto) 1 % (0-3) Basophils (%) (Auto) 0 % (0-3) Neutrophils # (Auto) 7.0 x10^3uL (1.8-7.7) Lymphocytes # (Auto) 0.3 x10^3/uL (1.0-4.8) Monocytes # (Auto) 1.3 x10^3/uL (0.0-1.1) Eosinophils # (Auto) 0.0 x10^3/uL (0.0-0.7) Basophils # (Auto) 0.0 x10^3/uL (0.0-0.2) Segmented Neutrophils % 85 % (35-66) Band Neutrophils % 8 % (0-9) Lymphocytes % 2 % (24-48) Monocytes % 4 % (0-10) Eosinophils % 1 % (0-5) Platelet Estimate Decreased (ADEQUATE) Anisocytosis Slight Prothrombin Time 16.4 SEC (11.7-14.0) Prothromb Time International Ratio 1.4 (0.8-1.1) Sodium Level 131 mmol/L (136-145) Potassium Level 3.6 mmol/L (3.5-5.1) Chloride Level 94 mmol/L (98-107) Carbon Dioxide Level 18 mmol/L (21-32) Anion Gap 19 (6-14) Blood Urea Nitrogen 50 mg/dL (7-20) Creatinine 6.4 mg/dL (0.6-1.0) Estimated GFR (Cockcroft-Gault) 6.6 BUN/Creatinine Ratio 8 (6-20) Glucose Level 213 mg/dL (70-99) Calcium Level 8.3 mg/dL (8.5-10.1) Total Bilirubin 1.3 mg/dL (0.2-1.0) Aspartate Amino Transf (AST/SGOT) 23 U/L (15-37) Alanine Aminotransferase (ALT/SGPT) 21 U/L (14-59) Alkaline Phosphatase 210 U/L (46-116) Ammonia 64 mcmol/L (11-34) Total Protein 5.9 g/dL (6.4-8.2) Albumin 2.4 g/dL (3.4-5.0) Albumin/Globulin Ratio 0.7 (1.0-1.7) Glucose (Fingerstick) 197 mg/dL (70-99) 255 mg/dL (70-99) 333 mg/dL (70-99) Test 09/05/18 07:59 09/05/18 10:15 09/05/18 16:34 09/05/18 20:27 Glucose (Fingerstick) 250 mg/dL (70-99) 215 mg/dL (70-99) 283 mg/dL (70-99) White Blood Count 8.9 x10^3/uL (4.0-11.0) Red Blood Count 2.85 x10^6/uL (3.50-5.40) Hemoglobin 8.4 g/dL (12.0-15.5) Hematocrit 26.5 % (36.0-47.0) Mean Corpuscular Volume 93 fL (79-100) Mean Corpuscular Hemoglobin 30 pg (25-35) Mean Corpuscular Hemoglobin Concent 32 g/dL (31-37) Red Cell Distribution Width 19.9 % (11.5-14.5) Platelet Count 88 x10^3/uL (140-400) Neutrophils (%) (Auto) 78 % (31-73) Lymphocytes (%) (Auto) 5 % (24-48) Monocytes (%) (Auto) 15 % (0-9) Eosinophils (%) (Auto) 1 % (0-3) Basophils (%) (Auto) 1 % (0-3) Neutrophils # (Auto) 7.0 x10^3uL (1.8-7.7) Lymphocytes # (Auto) 0.4 x10^3/uL (1.0-4.8) Monocytes # (Auto) 1.3 x10^3/uL (0.0-1.1) Eosinophils # (Auto) 0.1 x10^3/uL (0.0-0.7) Basophils # (Auto) 0.1 x10^3/uL (0.0-0.2) Sodium Level 129 mmol/L (136-145) Potassium Level 3.5 mmol/L (3.5-5.1) Chloride Level 94 mmol/L (98-107) Carbon Dioxide Level 17 mmol/L (21-32) Anion Gap 18 (6-14) Blood Urea Nitrogen 56 mg/dL (7-20) Creatinine 7.1 mg/dL (0.6-1.0) Estimated GFR (Cockcroft-Gault) 5.9 BUN/Creatinine Ratio 8 (6-20) Glucose Level 321 mg/dL (70-99) Calcium Level 7.6 mg/dL (8.5-10.1) Total Bilirubin 0.9 mg/dL (0.2-1.0) Aspartate Amino Transf (AST/SGOT) 20 U/L (15-37) Alanine Aminotransferase (ALT/SGPT) 17 U/L (14-59) Alkaline Phosphatase 159 U/L (46-116) Total Protein 5.5 g/dL (6.4-8.2) Albumin 2.8 g/dL (3.4-5.0) Albumin/Globulin Ratio 1.0 (1.0-1.7) Test 09/06/18 08:10 09/06/18 11:46 Glucose (Fingerstick) 251 mg/dL (70-99) 243 mg/dL (70-99) Laboratory Tests Test 09/05/18 16:34 09/05/18 20:27 09/06/18 08:10 09/06/18 11:46 Glucose (Fingerstick) 215 mg/dL (70-99) 283 mg/dL (70-99) 251 mg/dL (70-99) 243 mg/dL (70-99) Vitals/I & O Vital Sign - Last 24 Hours 09/05/18 09/05/18 09/05/18 09/05/18 15:00 19:00 19:30 23:00 Temp 97.9 99.2 97.7 97.9 99.2 97.7 Pulse 105 102 98 Resp 16 20 20 B/P (MAP) 81/22 (41) 83/23 (43) 78/56 (63) Pulse Ox 98 96 99 O2 Delivery Room Air Room Air Room Air Room Air 09/06/18 09/06/18 09/06/18 09/06/18 03:00 07:00 11:00 11:45 Temp 98.8 98.1 97.9 98.8 98.1 97.9 Pulse 99 106 103 104 Resp 20 18 16 B/P (MAP) 76/53 (61) 88/30 (49) 78/23 (41) 78/23 Pulse Ox 95 94 96 O2 Delivery Room Air Room Air Room Air Intake and Output 09/05/18 09/05/18 09/06/18 15:00 23:00 07:00 Output Total 0 ml 0 ml Balance 0 ml 0 ml Problem List Problems Medical Problems: (1) Fall Status: Acute (2) Hypotension Status: Acute (3) Knee effusion, left Status: Acute Assessment ESLD/DIAZ/portal HTN with ascites and PSE. Stable. Hypotensive BP readings. Patients with her degree of liver disease frequently run low BP's as expanded plasma volume and low peripheral resistance/high cardiac output state. Plan of Care Note Continue as now. Monitor BP; as long as seems to be perfusing adequately would not specifically address. LAWRENCE GOLDEN MD September 06, 2018 13:10
[2018-09-06] MEDS: CLOTRIMAZOLE 10 MG TROCHE. MM SCH ×3 (14:00→20:49)
[2018-09-06] MEDS ORDERED: MIDODRINE HCL 5 MG PO SCH (14:00)
--- NOTE | 2018-09-06 14:03 | PDOC ---
Infectious Disease Note Subjective Subjective Didn't eat much lunch, didn't care for the selection Feeling alright Denies N/V/F/C/S/pain ROS ROS per HPI Vital Sign Vital Signs Vital Signs Date Time Temp Pulse Resp B/P (MAP) Pulse Ox O2 Delivery O2 Flow Rate FiO2 09/06/18 12:55 102 83/23 09/06/18 11:00 97.9 16 96 Room Air 97.9 Physical Exam PHYSICAL EXAM GENERAL: Propped up in bed, alert, NAD HENT: Normal conjunctivae. Oral cavity, pharynx clear. NECK: Supple, no JVD. LUNGS: Decreased in the bases, no wheeze. HEART: S1, S2. ABDOMEN: Obese, distended, soft, NT : Ashley, no urine output EXTREMITIES: Without clubbing, cyanosis. LLE bandaged, knee immobilizer off SKIN: Warm to touch without signs of rash. NEUROLOGIC: Nonfocal, moves all extremities. Port-A-Cath and HDC without complications. Labs Lab Laboratory Tests Test 09/05/18 16:34 09/05/18 20:27 09/06/18 08:10 09/06/18 11:46 Glucose (Fingerstick) 215 mg/dL (70-99) 283 mg/dL (70-99) 251 mg/dL (70-99) 243 mg/dL (70-99) Objective Assessment 1. Lower extremity CT shows large joint fluid and there is some indentation identified in the lateral tibial plateau with lucency, large amount of edema in the soft tissues, degenerative changes throughout the knee, tiny ossific density. Other findings are reviewed. 2. Status post fall. 3. Left knee contusion. 4. Chronic kidney disease, on hemodialysis. 5. History of urinary tract infection, currently complains of some discomfort. 6. ANTIBIOTIC ALLERGY, has tolerated Zosyn and levofloxacin. 7. Ascites, status post paracentesis on the 16th. 12L removed Plan Plan of Care Continue to hold abx. Straight cath for UA C and S not collected yet Monitor labs Dr. Rivers's input noted D/w nursing Pt seen and examined Agree with above Hyponatremia , monitor closely DARNELL SANCHEZ APRN September 06, 2018 14:03 FARHANA PANCHAL MD September 06, 2018 15:14
[2018-09-06 15:00] VITALS: BP 84/21
[2018-09-06] MEDS: MIDODRINE 5 MG TABLET PO SCH (17:49)
[2018-09-06 19:00] VITALS: BP 87/28
[2018-09-06] MEDS: INSULIN GLARGINE 300 UNITS/3 ML INSULN.PEN. SQ SCH (21:09)
[2018-09-06 23:00] VITALS: BP 83/27
[2018-09-07 03:00] VITALS: BP 80/28
[2018-09-07] MEDS: CLOTRIMAZOLE 10 MG TROCHE. MM SCH ×5 (05:51→20:28)
[2018-09-07] MEDS: PANTOPRAZOLE 40 MG TABLET.DR. PO SCH (05:52)
[2018-09-07] MEDS: MIDODRINE 5 MG TABLET PO SCH ×4 (05:52→17:58)
[2018-09-07 07:00] VITALS: BP 96/31
[2018-09-07] MEDS: LACTOBACILLUS RHAMNOSUS GG 1 CAPSULE. PO SCH ×2 (08:16→20:27)
[2018-09-07] MEDS: CALCIUM ACETATE 667 MG CAPSULE PO SCH ×4 (08:16→17:58)
[2018-09-07] MEDS: rifAXIMin 550 MG TABLET PO SCH ×2 (08:16→20:27)
[2018-09-07] MEDS: LACTULOSE 20 GM/30 ML SOLUTION. PO SCH ×3 (08:16→19:31)
[2018-09-07] MEDS: NYSTATIN 100,000 UNIT/GM TOPICAL CREAM 15GM TUBE. TP SCH ×2 (08:17→20:28)
--- NOTE | 2018-09-07 08:20 | PDOC ---
PROGRESS NOTES Chief Complaint Chief Complaint ESRD on HD - 2/2 hepatorenal syndrome Left knee pain with Large joint effusion - will have ortho see End-stage liver disease with recurrent ascites s/p paracentesis [id number] previously Recent history of vancomycin-resistant enterococci Encephalopathy/hyperammonemia Chronic anemia - EGD 04/24/18: grade 1 varices, gastritis History of Present Illness History of Present Illness 62-year-old female PMHx H/o ESLD (DIAZ), recurrent ascites/frequent paracentesis, PVT, hepatic encephalopathy, esophageal varices, ESRD on HD (hepatorenal syndrome), chronic anemia (iron deficient in 04/2018) requiring transfusions, thrombocytopenia admitted through ED after she fell, hurting her left knee and missing dialysis. She was supposed to have paracentesis yesterday as well. To ER instead w/ daughter because couldn't manage at home w/ significant pain and limited mobility. Has been having diarrhea - started on pancreatic enzymes last admission, not taking at home, and she is not taking lactulose or Xifaxin as prescribed either Has desired further eval for liver transplant but declined by [facility] due to past behavior, also unable to transfer to [facility] in the past due to insurance. No overnight events. Today c/o worse left knee pain, is in immobilizer. Hb stable, low. She is not oriented to day, date, year. CT left knee confirms large effusion and lipohemarthrosis, which is concerning for possible tibial plateau fracture, seen by ortho, placed in hinged knee brace and follow up set up for outpatient. BP has been better. She falls right back asleep during conversation today. Plan: Ok for d/c tomorrow per ortho, will see how she does with dialysis and labs otherwise. She may need placement while learning the knee brace. Increased midodrine dosing increased insulin Vitals Vitals Vital Signs Date Time Temp Pulse Resp B/P (MAP) Pulse Ox O2 Delivery O2 Flow Rate FiO2 09/07/18 05:52 78 80/28 09/07/18 03:00 99.5 18 97 Room Air 99.5 Physical Exam Physical Exam GENERAL: Propped up in bed, alert, NAD HENT: Normal conjunctivae. Oral cavity, pharynx clear. NECK: Supple, no JVD. LUNGS: Decreased in the bases, no wheeze. HEART: S1, S2. ABDOMEN: Obese, distended, soft, NT : Ashley, no urine output EXTREMITIES: Without clubbing, cyanosis. LLE bandaged, knee immobilizer off SKIN: Warm to touch without signs of rash. NEUROLOGIC: Nonfocal, moves all extremities. Port-A-Cath and HDC without complications. General: Alert, Cooperative Lungs: Clear, Other Abdomen: Other (massive ascites) Extremities: Other (the left knee does not have an effusion today, other than slight swelling. She does have trace ecchymosis over the proximal aspect of the medial collateral ligament, and most of the tenderness is medial. The gross alignment is normal. There was pain medially with valgus stress but no synovial laxity, and I suspect an MCL sprain based on the mechanism of injury and the current findings. The patella is not dislocated area of the extensor mechanism i s intact. Except for the slight bruising the skin is intact red the lateral joint line is nontender. Difficult to assess her ACL became and PCL because she is holding the knee at about 30 of flexion, and has pain with attempts to move significantly.) Skin: No breakdown, Other (minor ecchymosis left knee medially) Labs LABS Laboratory Tests Test 09/06/18 11:46 09/06/18 17:13 09/06/18 20:54 Glucose (Fingerstick) 243 mg/dL (70-99) 207 mg/dL (70-99) 223 mg/dL (70-99) Assessment and Plan Assessmemt and Plan Problems Medical Problems: (1) Fall Status: Acute (2) Hypotension Status: Acute (3) Knee effusion, left Status: Acute Comment Review of Relevant I have reviewed the following items chante (where applicable) has been applied. Labs Laboratory Tests Test 09/05/18 10:15 09/05/18 16:34 09/05/18 20:27 09/06/18 08:10 White Blood Count 8.9 x10^3/uL (4.0-11.0) Red Blood Count 2.85 x10^6/uL (3.50-5.40) Hemoglobin 8.4 g/dL (12.0-15.5) Hematocrit 26.5 % (36.0-47.0) Mean Corpuscular Volume 93 fL (79-100) Mean Corpuscular Hemoglobin 30 pg (25-35) Mean Corpuscular Hemoglobin Concent 32 g/dL (31-37) Red Cell Distribution Width 19.9 % (11.5-14.5) Platelet Count 88 x10^3/uL (140-400) Neutrophils (%) (Auto) 78 % (31-73) Lymphocytes (%) (Auto) 5 % (24-48) Monocytes (%) (Auto) 15 % (0-9) Eosinophils (%) (Auto) 1 % (0-3) Basophils (%) (Auto) 1 % (0-3) Neutrophils # (Auto) 7.0 x10^3uL (1.8-7.7) Lymphocytes # (Auto) 0.4 x10^3/uL (1.0-4.8) Monocytes # (Auto) 1.3 x10^3/uL (0.0-1.1) Eosinophils # (Auto) 0.1 x10^3/uL (0.0-0.7) Basophils # (Auto) 0.1 x10^3/uL (0.0-0.2) Sodium Level 129 mmol/L (136-145) Potassium Level 3.5 mmol/L (3.5-5.1) Chloride Level 94 mmol/L (98-107) Carbon Dioxide Level 17 mmol/L (21-32) Anion Gap 18 (6-14) Blood Urea Nitrogen 56 mg/dL (7-20) Creatinine 7.1 mg/dL (0.6-1.0) Estimated GFR (Cockcroft-Gault) 5.9 BUN/Creatinine Ratio 8 (6-20) Glucose Level 321 mg/dL (70-99) Calcium Level 7.6 mg/dL (8.5-10.1) Total Bilirubin 0.9 mg/dL (0.2-1.0) Aspartate Amino Transf (AST/SGOT) 20 U/L (15-37) Alanine Aminotransferase (ALT/SGPT) 17 U/L (14-59) Alkaline Phosphatase 159 U/L (46-116) Total Protein 5.5 g/dL (6.4-8.2) Albumin 2.8 g/dL (3.4-5.0) Albumin/Globulin Ratio 1.0 (1.0-1.7) Glucose (Fingerstick) 215 mg/dL (70-99) 283 mg/dL (70-99) 251 mg/dL (70-99) Test 09/06/18 11:46 09/06/18 17:13 09/06/18 20:54 Glucose (Fingerstick) 243 mg/dL (70-99) 207 mg/dL (70-99) 223 mg/dL (70-99) Laboratory Tests Test 09/06/18 11:46 09/06/18 17:13 09/06/18 20:54 Glucose (Fingerstick) 243 mg/dL (70-99) 207 mg/dL (70-99) 223 mg/dL (70-99) Medications Current Medications Ondansetron HCl (Zofran) 4 mg PRN Q8HRS PRN IV NAUSEA/VOMITING; Start 09/04/18 at 12:15; Stop 09/05/18 at 12:14; Status DC Fentanyl Citrate (Fentanyl 2ml Vial) 50 mcg PRN Q1HR PRN IV PAIN; Start 09/04/18 at 12:15; Stop 09/05/18 at 12:14; Status DC Rifaximin (Xifaxan) 550 mg Q12HR PO Last administered on 09/06/18at 20:49; Start 09/04/18 at 14:30 Lactulose (Lactulose) 20 gm PRN TID PRN PO CONSTIPATION; Start 09/04/18 at 13:45 Pantoprazole Sodium (Protonix) 40 mg DAILYAC PO Last administered on 09/07/18at 05:52; Start 09/04/18 at 14:00 Diphenhydramine HCl (Benadryl) 25 mg PRN Q6HRS PRN PO ITCHING Last administered on 09/05/18at 00:04; Start 09/04/18 at 14:15 Lidocaine/Sodium Bicarbonate (Buffered Lidocaine 1%) 3 ml STK-MED ONCE .ROUTE ; Start 09/04/18 at 14:34; Stop 09/04/18 at 14:35; Status DC Lidocaine/Sodium Bicarbonate (Buffered Lidocaine 1%) 9 ml 1X ONCE INJ Last administered on 09/04/18at 14:57; Start 09/04/18 at 14:45; Stop 09/04/18 at 14:46; Status DC Albumin Human 100 ml @ 100 mls/hr 1X ONCE IV Last administered on 09/04/18at 15:30; Start 09/04/18 at 15:30; Stop 09/04/18 at 16:29; Status DC Albumin Human 100 ml @ 100 mls/hr 1X ONCE IV Last administered on 09/04/18at 15:30; Start 09/04/18 at 15:30; Stop 09/04/18 at 16:29; Status DC Albumin Human 100 ml @ 100 mls/hr 1X ONCE IV Last administered on 09/04/18at 15:44; Start 09/04/18 at 16:00; Stop 09/04/18 at 16:59; Status DC Diphenhydramine HCl (Benadryl) 25 mg Q6HRS PO ; Start 09/04/18 at 18:00; Status UNV Insulin Glargine (Lantus) 10 units HS SQ Last administered on 09/05/18at 22:09; Start 09/04/18 at 21:00; Stop 09/06/18 at 12:44; Status DC Lactulose (Lactulose) 20 gm TID PO ; Start 09/04/18 at 21:00 Calcium Acetate (Phoslo) 667 mg TIDWMEALS PO Last administered on 09/06/18at 17:48; Start 09/04/18 at 18:00 Insulin Human Lispro (HumaLOG) 0-5 UNITS TIDWMEALS SQ Last administered on 09/06/18at 17:58; Start 09/05/18 at 08:00 Dextrose (Dextrose 50%-Water Syringe) 12.5 gm PRN Q15MIN PRN IV SEE COMMENTS; Start 09/04/18 at 17:45 Insulin Human Lispro (HumaLOG) 6 units 1X ONCE SQ Last administered on 09/04/18at 18:11; Start 09/04/18 at 18:00; Stop 09/04/18 at 18:01; Status DC Cyclobenzaprine HCl (Flexeril) 10 mg PRN Q6HRS PRN PO MUSCLE SPASMS Last administered on 09/05/18at 05:56; Start 09/04/18 at 20:00 Acetaminophen/ Hydrocodone Bitart (Lortab 5/325) 1 tab PRN Q6HRS PRN PO PAIN Last administered on 09/04/18at 22:42; Start 09/04/18 at 20:45 Sodium Chloride 1,000 ml @ 1,000 mls/hr Q1H PRN IV hypotension; Start 09/05/18 at 09:30; Stop 09/05/18 at 19:00; Status DC Diphenhydramine HCl (Benadryl) 25 mg 1X PRN PRN IV ITCHING; Start 09/05/18 at 09:15; Stop 09/05/18 at 19:00; Status DC Diphenhydramine HCl (Benadryl) 25 mg 1X PRN PRN IV ITCHING; Start 09/05/18 at 09:15; Stop 09/05/18 at 19:00; Status DC Sodium Chloride 1,000 ml @ 400 mls/hr Q2H30M PRN IV PATENCY; Start 09/05/18 at 09:00; Stop 09/05/18 at 19:00; Status DC Info (PHARMACY MONITORING -- do not chart) 1 each PRN DAILY PRN MC SEE COMMENTS; Start 09/05/18 at 09:15 Albumin Human 200 ml @ 200 mls/hr 1X STAT IV Last administered on 09/05/18at 11:28; Start 09/05/18 at 11:17; Stop 09/05/18 at 12:16; Status DC Non-Formulary Medication (Midodrine Hcl ) 5 mg TID PO ; Start 09/06/18 at 14:00; Status UNV Midodrine (Proamatine) 5 mg [id number] PO Last administered on 09/06/18at 11:45; Start 09/06/18 at 13:00; Stop 09/06/18 at 13:00; Status DC Nystatin (Mycostatin) 1 kiana BID TP Last administered on 09/06/18at 20:50; Start 09/06/18 at 13:00 Clotrimazole (Mycelex) 10 mg 5XDAY MM Last administered on 09/07/18at 05:51; Start 09/06/18 at 14:00 Lactobacillus Rhamnosus (Culturelle) 1 cap BID PO Last administered on 09/06/18at 20:48; Start 09/06/18 at 13:00 Midodrine (Proamatine) 5 mg 1X ONCE PO Last administered on 09/06/18at 12:55; Start 09/06/18 at 12:45; Stop 09/06/18 at 12:46; Status DC Insulin Glargine (Lantus) 12 units HS SQ Last administered on 09/06/18at 21:09; Start 09/06/18 at 21:00 Midodrine (Proamatine) 10 mg [id number] PO Last administered on 09/07/18at 05:52; Start 09/06/18 at 18:00 Phenyleph/Shark Oil/Min Oil/Petrol (Preparation H) 1 kiana PRN DAILY PRN RC RECTAL PAIN Last administered on 09/06/18at 12:56; Start 09/06/18 at 12:45 Active Scripts Active Reported Benadryl (Diphenhydramine Hcl) 25 Mg Capsule 25 Mg PO Q6HRS Calcium Acetate 667 Mg Tablet 667 Mg PO TIDWMEALS Dialyvite Tablet (Folic Acid/Vitamin B Comp W-C) 1 Each Tablet 1 Each PO DAILY Midodrine Hcl 5 Mg Tablet 5 Mg PO TID Cyclobenzaprine Hcl 5 Mg Tablet 1 Tab PO TID Omeprazole 40 Mg Capsule.dr 1 Cap PO DAILY Xifaxan (Rifaximin) 550 Mg Tablet 1 Tab PO BID Fusion Plus Capsule (Iron,Fum&Ps/Fa/Vit B&C#18/L.ca) 1 Each Capsule 1 Each PO Albuterol Sulfate Conc Neb Soln (Albuterol Sulfate) 2.5 Mg/0.5 Ml Vial.neb 2.5 Mg NEB Q6HRS PRN Lactulose 20 Gm/30 Ml Solution 20 Gm PO TID Lantus Solostar (Insulin Glargine,Hum.rec.anlog) 100 Unit/1 Ml Insuln.pen 0 SQ HS SSI Calcium + Vitamin D Tablet (Calcium Carbonate/Vitamin D3) 1 Each Tablet 1 Each PO Albuterol Sulfate Hfa Inhaler (Albuterol Sulfate) 8.5 Gm Hfa.aer.ad 8.5 Gm IH Novolog Flexpen (Insulin Aspart) 100 Unit/1 Ml Insuln.pen 0 SQ TIDAC ssi Synthroid (Levothyroxine Sodium) 25 Mcg Tablet 300 Mcg PO DAILY Flovent 110MCG Hfa (Fluticasone Propionate) 12 Gm Aer.w.adap 12 Gm IH Vitals/I & O Vital Sign - Last 24 Hours 09/06/18 09/06/18 09/06/18 09/06/18 08:20 11:00 11:45 12:55 Temp 97.9 97.9 Pulse 103 104 102 Resp 16 B/P (MAP) 78/ (41) 78/ 83/23 Pulse Ox 96 O2 Delivery Room Air Room Air 09/06/18 09/06/18 09/06/18 09/06/18 15:00 17:49 19:00 20:00 Temp 98.1 98.4 98.1 98.4 Pulse 99 99 103 Resp 18 18 B/P (MAP) 84/ (42) 84 87/28 (47) Pulse Ox 98 94 O2 Delivery Room Air Room Air Room Air 09/06/18 09/07/18 09/07/18 23:00 03:00 05:52 Temp 98.4 99.5 98.4 99.5 Pulse 101 78 78 Resp 18 18 B/P (MAP) 83/27 (45) 80/28 (45) 80/28 Pulse Ox 93 97 O2 Delivery Room Air Room Air Intake and Output 09/06/18 09/06/18 09/07/18 15:00 23:00 07:00 Intake Total 120 ml Output Total 0 ml 2 ml Balance 120 ml -2 ml DANA PHAN MD September 07, 2018 08:20
[2018-09-07] MEDS: INSULIN LISPRO 300 UNITS/3 ML INSULN.PEN. SQ SCH ×3 (08:25→18:06)
[2018-09-07 09:01] LABS: BASO # 0.1 x10^3/uL (0.0-0.2); BASO % 1 % (0-3); EOS % 0 % (0-3); HEMATOCRIT 26.9 % (36.0-47.0); HEMOGLOBIN 8.8 g/dL (12.0-15.5); LYMPH # 0.5 x10^3/uL (1.0-4.8); LYMPH % 5 % (24-48); MEAN CORPUSCULAR HEMOGLOBIN 31 pg (25-35); MEAN CORPUSCULAR HGB CONC 33 g/dL (31-37); MEAN CORPUSCULAR VOLUME 93 fL (79-100); MONO % 18 % (0-9); NEUT # 8.3 x10^3uL (1.8-7.7); NEUT % 76 % (31-73); PLATELET COUNT 108 x10^3/uL (140-400); RED BLOOD COUNT 2.89 x10^6/uL (3.50-5.40); RED CELL DISTRIBUTION WIDTH 19.6 % (11.5-14.5); WHITE BLOOD COUNT 10.9 x10^3/uL (4.0-11.0)
[2018-09-07 09:14] LABS: ALBUMIN 2.7 g/dL (3.4-5.0); ALBUMIN/GLOBULIN RATIO 1.1 (1.0-1.7); CREATININE 5.7 mg/dL (0.6-1.0); GFR 7.6; POTASSIUM 3.4 mmol/L (3.5-5.1); TOTAL BILIRUBIN 1.6 mg/dL (0.2-1.0); TOTAL PROTEIN 5.1 g/dL (6.4-8.2)
[2018-09-07 11:00] VITALS: BP 98/34
--- NOTE | 2018-09-07 12:14 | PDOC ---
G I PROGRESS NOTE Subjective Sleeping, not awakened. Physical Exam No PE. Review of Relevant I have reviewed the following items chante (where applicable) has been applied. Labs Laboratory Tests Test 09/05/18 16:34 09/05/18 20:27 09/06/18 08:10 09/06/18 11:46 Glucose (Fingerstick) 215 mg/dL (70-99) 283 mg/dL (70-99) 251 mg/dL (70-99) 243 mg/dL (70-99) Test 09/06/18 17:13 09/06/18 20:54 09/07/18 08:03 09/07/18 08:50 Glucose (Fingerstick) 207 mg/dL (70-99) 223 mg/dL (70-99) 242 mg/dL (70-99) White Blood Count 10.9 x10^3/uL (4.0-11.0) Red Blood Count 2.89 x10^6/uL (3.50-5.40) Hemoglobin 8.8 g/dL (12.0-15.5) Hematocrit 26.9 % (36.0-47.0) Mean Corpuscular Volume 93 fL (79-100) Mean Corpuscular Hemoglobin 31 pg (25-35) Mean Corpuscular Hemoglobin Concent 33 g/dL (31-37) Red Cell Distribution Width 19.6 % (11.5-14.5) Platelet Count 108 x10^3/uL (140-400) Neutrophils (%) (Auto) 76 % (31-73) Lymphocytes (%) (Auto) 5 % (24-48) Monocytes (%) (Auto) 18 % (0-9) Eosinophils (%) (Auto) 0 % (0-3) Basophils (%) (Auto) 1 % (0-3) Neutrophils # (Auto) 8.3 x10^3uL (1.8-7.7) Lymphocytes # (Auto) 0.5 x10^3/uL (1.0-4.8) Monocytes # (Auto) 2.0 x10^3/uL (0.0-1.1) Eosinophils # (Auto) 0.0 x10^3/uL (0.0-0.7) Basophils # (Auto) 0.1 x10^3/uL (0.0-0.2) Sodium Level 132 mmol/L (136-145) Potassium Level 3.4 mmol/L (3.5-5.1) Chloride Level 95 mmol/L (98-107) Carbon Dioxide Level 23 mmol/L (21-32) Anion Gap 14 (6-14) Blood Urea Nitrogen 35 mg/dL (7-20) Creatinine 5.7 mg/dL (0.6-1.0) Estimated GFR (Cockcroft-Gault) 7.6 BUN/Creatinine Ratio 6 (6-20) Glucose Level 269 mg/dL (70-99) Calcium Level 8.0 mg/dL (8.5-10.1) Total Bilirubin 1.6 mg/dL (0.2-1.0) Aspartate Amino Transf (AST/SGOT) 28 U/L (15-37) Alanine Aminotransferase (ALT/SGPT) 17 U/L (14-59) Alkaline Phosphatase 155 U/L (46-116) Total Protein 5.1 g/dL (6.4-8.2) Albumin 2.7 g/dL (3.4-5.0) Albumin/Globulin Ratio 1.1 (1.0-1.7) Test 09/07/18 11:16 Glucose (Fingerstick) 202 mg/dL (70-99) Laboratory Tests Test 09/06/18 17:13 09/06/18 20:54 09/07/18 08:03 09/07/18 08:50 Glucose (Fingerstick) 207 mg/dL (70-99) 223 mg/dL (70-99) 242 mg/dL (70-99) White Blood Count 10.9 x10^3/uL (4.0-11.0) Red Blood Count 2.89 x10^6/uL (3.50-5.40) Hemoglobin 8.8 g/dL (12.0-15.5) Hematocrit 26.9 % (36.0-47.0) Mean Corpuscular Volume 93 fL (79-100) Mean Corpuscular Hemoglobin 31 pg (25-35) Mean Corpuscular Hemoglobin Concent 33 g/dL (31-37) Red Cell Distribution Width 19.6 % (11.5-14.5) Platelet Count 108 x10^3/uL (140-400) Neutrophils (%) (Auto) 76 % (31-73) Lymphocytes (%) (Auto) 5 % (24-48) Monocytes (%) (Auto) 18 % (0-9) Eosinophils (%) (Auto) 0 % (0-3) Basophils (%) (Auto) 1 % (0-3) Neutrophils # (Auto) 8.3 x10^3uL (1.8-7.7) Lymphocytes # (Auto) 0.5 x10^3/uL (1.0-4.8) Monocytes # (Auto) 2.0 x10^3/uL (0.0-1.1) Eosinophils # (Auto) 0.0 x10^3/uL (0.0-0.7) Basophils # (Auto) 0.1 x10^3/uL (0.0-0.2) Sodium Level 132 mmol/L (136-145) Potassium Level 3.4 mmol/L (3.5-5.1) Chloride Level 95 mmol/L (98-107) Carbon Dioxide Level 23 mmol/L (21-32) Anion Gap 14 (6-14) Blood Urea Nitrogen 35 mg/dL (7-20) Creatinine 5.7 mg/dL (0.6-1.0) Estimated GFR (Cockcroft-Gault) 7.6 BUN/Creatinine Ratio 6 (6-20) Glucose Level 269 mg/dL (70-99) Calcium Level 8.0 mg/dL (8.5-10.1) Total Bilirubin 1.6 mg/dL (0.2-1.0) Aspartate Amino Transf (AST/SGOT) 28 U/L (15-37) Alanine Aminotransferase (ALT/SGPT) 17 U/L (14-59) Alkaline Phosphatase 155 U/L (46-116) Total Protein 5.1 g/dL (6.4-8.2) Albumin 2.7 g/dL (3.4-5.0) Albumin/Globulin Ratio 1.1 (1.0-1.7) Test 09/07/18 11:16 Glucose (Fingerstick) 202 mg/dL (70-99) Vitals/I & O Vital Sign - Last 24 Hours 09/06/18 09/06/18 09/06/18 09/06/18 12:55 15:00 17:49 19:00 Temp 98.1 98.4 98.1 98.4 Pulse 102 99 99 103 Resp 18 18 B/P (MAP) 83/23 84/21 (42) 84/21 87/28 (47) Pulse Ox 98 94 O2 Delivery Room Air Room Air 09/06/18 09/06/18 09/07/18 09/07/18 20:00 23:00 03:00 05:52 Temp 98.4 99.5 98.4 99.5 Pulse 101 78 78 Resp 18 18 B/P (MAP) 83/27 (45) 80/28 (45) 80/28 Pulse Ox 93 97 O2 Delivery Room Air Room Air Room Air 09/07/18 09/07/18 07:00 11:00 Temp 98.4 98.1 98.4 98.1 Pulse 98 98 Resp 18 16 B/P (MAP) 96/31 (52) 98/34 (55) Pulse Ox 92 90 O2 Delivery Room Air Room Air Intake and Output 09/06/18 09/06/18 09/07/18 14:59 22:59 06:59 Intake Total 120 ml Output Total 2 ml Balance 120 ml -2 ml Problem List Problems Medical Problems: (1) Fall Status: Acute (2) Hypotension Status: Acute (3) Knee effusion, left Status: Acute Assessment ESLD/DIAZ. Plan of Care: Continue current Tx, Mgmt Plan of Care Note Paracentesis prn. LAWRENCE GOLDEN MD September 07, 2018 12:14
--- NOTE | 2018-09-07 13:21 | NUR ---
Pt refused Calcium Acetate and Midodrine
[2018-09-07 15:00] VITALS: BP 106/34
--- NOTE | 2018-09-07 15:14 | PDOC ---
Infectious Disease Note Subjective: Subjective Pt says doing ok Denies N/V/F/C/S/pain Vital Signs: Vital Signs Vital Signs Date Time Temp Pulse Resp B/P (MAP) Pulse Ox O2 Delivery O2 Flow Rate FiO2 09/07/18 13:00 98 98/34 09/07/18 11:00 98.1 16 90 Room Air 98.1 Physical Exam: PHYSICAL EXAM GENERAL: Propped up in bed, alert, NAD HENT: Normal conjunctivae. Oral cavity, pharynx clear. NECK: Supple, no JVD. LUNGS: Decreased in the bases, no wheeze. HEART: S1, S2. ABDOMEN: Obese, distended, soft, NT : Ashley, no urine output EXTREMITIES: Without clubbing, cyanosis. LLE bandaged, knee immobilizer off SKIN: Warm to touch without signs of rash. NEUROLOGIC: Nonfocal, moves all extremities. Port-A-Cath and HDC without complications. Medications: Inpatient Meds: Current Medications Medications (Trade) Dose Ordered Sig/Emanuel Start Time Stop Time Status Last Admin Dose Admin Acetaminophen/ Hydrocodone Bitart (Lortab 5/325) 1 tab PRN Q6HRS PRN 09/04/18 20:45 09/04/18 22:42 1 TAB Albumin Human 200 ml @ 200 mls/hr 1X STAT 09/05/18 11:17 09/05/18 12:16 DC 09/05/18 11:28 200 MLS/HR Calcium Acetate (Phoslo) 667 mg TIDWMEALS 09/04/18 18:00 09/07/18 08:16 667 MG Clotrimazole (Mycelex) 10 mg 5XDAY 09/06/18 14:00 09/07/18 10:26 10 MG Cyclobenzaprine HCl (Flexeril) 10 mg PRN Q6HRS PRN 09/04/18 20:00 09/05/18 05:56 10 MG Dextrose (Dextrose 50%-Water Syringe) 12.5 gm PRN Q15MIN PRN 09/04/18 17:45 Diphenhydramine HCl (Benadryl) 25 mg 1X PRN PRN 09/05/18 09:15 09/05/18 19:00 DC Fentanyl Citrate (Fentanyl 2ml Vial) 50 mcg PRN Q1HR PRN 09/04/18 12:15 09/05/18 12:14 DC Info (PHARMACY MONITORING -- do not chart) 1 each PRN DAILY PRN 09/05/18 09:15 Insulin Glargine (Lantus) 12 units HS 09/06/18 21:00 09/06/18 21:09 12 UNITS Insulin Human Lispro (HumaLOG) 6 units 1X ONCE 09/04/18 18:00 09/04/18 18:01 DC 09/04/18 18:11 6 UNITS Lactobacillus Rhamnosus (Culturelle) 1 cap BID 09/06/18 13:00 09/07/18 08:16 1 CAP Lactulose (Lactulose) 20 gm TID 09/04/18 21:00 Lidocaine/Sodium Bicarbonate (Buffered Lidocaine 1%) 9 ml 1X ONCE 09/04/18 14:45 09/04/18 14:46 DC 09/04/18 14:57 8 ML Midodrine (Proamatine) 10 mg [id number] 09/06/18 18:00 09/07/18 05:52 10 MG Non-Formulary Medication (Midodrine Hcl ) 5 mg TID 09/06/18 14:00 UNV Nystatin (Mycostatin) 1 kiana BID 09/06/18 13:00 09/07/18 08:17 1 KIANA Ondansetron HCl (Zofran) 4 mg PRN Q8HRS PRN 09/04/18 12:15 09/05/18 12:14 DC Pantoprazole Sodium (Protonix) 40 mg DAILYAC 09/04/18 14:00 09/07/18 05:52 40 MG Phenyleph/Shark Oil/Min Oil/Petrol (Preparation H) 1 kiana PRN DAILY PRN 09/06/18 12:45 09/06/18 12:56 1 KIANA Rifaximin (Xifaxan) 550 mg Q12HR 09/04/18 14:30 09/07/18 08:16 550 MG Sodium Chloride 1,000 ml @ 400 mls/hr Q2H30M PRN 09/05/18 09:00 09/05/18 19:00 DC Labs: Lab Laboratory Tests Test 09/06/18 17:13 09/06/18 20:54 09/07/18 08:03 09/07/18 08:50 Glucose (Fingerstick) 207 mg/dL (70-99) 223 mg/dL (70-99) 242 mg/dL (70-99) White Blood Count 10.9 x10^3/uL (4.0-11.0) Red Blood Count 2.89 x10^6/uL (3.50-5.40) Hemoglobin 8.8 g/dL (12.0-15.5) Hematocrit 26.9 % (36.0-47.0) Mean Corpuscular Volume 93 fL (79-100) Mean Corpuscular Hemoglobin 31 pg (25-35) Mean Corpuscular Hemoglobin Concent 33 g/dL (31-37) Red Cell Distribution Width 19.6 % (11.5-14.5) Platelet Count 108 x10^3/uL (140-400) Neutrophils (%) (Auto) 76 % (31-73) Lymphocytes (%) (Auto) 5 % (24-48) Monocytes (%) (Auto) 18 % (0-9) Eosinophils (%) (Auto) 0 % (0-3) Basophils (%) (Auto) 1 % (0-3) Neutrophils # (Auto) 8.3 x10^3uL (1.8-7.7) Lymphocytes # (Auto) 0.5 x10^3/uL (1.0-4.8) Monocytes # (Auto) 2.0 x10^3/uL (0.0-1.1) Eosinophils # (Auto) 0.0 x10^3/uL (0.0-0.7) Basophils # (Auto) 0.1 x10^3/uL (0.0-0.2) Sodium Level 132 mmol/L (136-145) Potassium Level 3.4 mmol/L (3.5-5.1) Chloride Level 95 mmol/L (98-107) Carbon Dioxide Level 23 mmol/L (21-32) Anion Gap 14 (6-14) Blood Urea Nitrogen 35 mg/dL (7-20) Creatinine 5.7 mg/dL (0.6-1.0) Estimated GFR (Cockcroft-Gault) 7.6 BUN/Creatinine Ratio 6 (6-20) Glucose Level 269 mg/dL (70-99) Calcium Level 8.0 mg/dL (8.5-10.1) Total Bilirubin 1.6 mg/dL (0.2-1.0) Aspartate Amino Transf (AST/SGOT) 28 U/L (15-37) Alanine Aminotransferase (ALT/SGPT) 17 U/L (14-59) Alkaline Phosphatase 155 U/L (46-116) Total Protein 5.1 g/dL (6.4-8.2) Albumin 2.7 g/dL (3.4-5.0) Albumin/Globulin Ratio 1.1 (1.0-1.7) Test 09/07/18 11:16 Glucose (Fingerstick) 202 mg/dL (70-99) Objective: Assessment: 1. Lower extremity CT shows large joint fluid and there is some indentation identified in the lateral tibial plateau with lucency, large amount of edema in the soft tissues, degenerative changes throughout the knee, tiny ossific density. Other findings are reviewed. 2. Status post fall. 3. Left knee contusion. 4. Chronic kidney disease, on hemodialysis. 5. History of urinary tract infection, currently complains of some discomfort. 6. ANTIBIOTIC ALLERGY, has tolerated Zosyn and levofloxacin. 7. Ascites, status post paracentesis on the 16. 12L removed Plan: Plan of Care Continue to hold abx. Only UC done today, not UA Straight cath for UA with micro and C and S (not collected yet ) Monitor labs Dr. Rivers's input noted D/W FARHANA BARBOZA MD September 07, 2018 15:14
[2018-09-07 19:56] VITALS: BP 106/42
[2018-09-07] MEDS: PHENYLEPH/MINERAL OIL/PETROLAT RECTAL OINTMENT 28GM TUBE. RC PRN (20:29)
[2018-09-07] MEDS: INSULIN GLARGINE 300 UNITS/3 ML INSULN.PEN. SQ SCH (20:34)
[2018-09-07 23:23] VITALS: BP 98/34
[2018-09-08 03:50] VITALS: BP 97/32
[2018-09-08 03:56] LABS: BILIRUBIN,URINE MODERATE (NEG); CLARITY,URINE TURBID; COLOR,URINE RED; NITRITE,URINE POSITIVE (NEG); PH,URINE 7.5; PROTEIN,URINE >=300 mg/dL (NEG-TRACE)
[2018-09-08 04:04] LABS: BACTERIA,URINE MANY /HPF (0-FEW); WBC,URINE TNTC /HPF (0-4)
[2018-09-08 04:05] LABS: SQUAMOUS EPITHELIAL CELL,UR OCC /LPF
[2018-09-08] MEDS: CLOTRIMAZOLE 10 MG TROCHE. MM SCH ×3 (05:16→14:00)
[2018-09-08] MEDS: PANTOPRAZOLE 40 MG TABLET.DR. PO SCH (05:16)
[2018-09-08] MEDS: MIDODRINE 5 MG TABLET PO SCH ×3 (05:16→17:24)
[2018-09-08 05:48] LABS: ALBUMIN 2.9 g/dL (3.4-5.0); CALCIUM 8.5 mg/dL (8.5-10.1); CREATININE 6.6 mg/dL (0.6-1.0); GFR 6.4; POTASSIUM 3.7 mmol/L (3.5-5.1); TOTAL BILIRUBIN 2.2 mg/dL (0.2-1.0); TOTAL PROTEIN 5.7 g/dL (6.4-8.2)
[2018-09-08] MEDS: NYSTATIN 100,000 UNIT/GM TOPICAL CREAM 15GM TUBE. TP SCH ×2 (05:48→21:00)
[2018-09-08 07:00] VITALS: BP 112/56
[2018-09-08] MEDS: CALCIUM ACETATE 667 MG CAPSULE PO SCH ×3 (08:51→17:24)
[2018-09-08] MEDS: LACTOBACILLUS RHAMNOSUS GG 1 CAPSULE. PO SCH ×2 (08:52→23:04)
[2018-09-08] MEDS: rifAXIMin 550 MG TABLET PO SCH ×2 (08:52→23:04)
[2018-09-08] MEDS: LACTULOSE 20 GM/30 ML SOLUTION. PO SCH (08:52)
[2018-09-08] MEDS: INSULIN LISPRO 300 UNITS/3 ML INSULN.PEN. SQ SCH ×3 (09:01→17:28)
[2018-09-08 11:00] VITALS: BP 104/37
--- NOTE | 2018-09-08 11:07 | PDOC ---
PROGRESS NOTES Chief Complaint Chief Complaint ESRD on HD - 2/2 hepatorenal syndrome Left knee pain with Large joint effusion End-stage liver disease with recurrent ascites s/p paracentesis [id number] previously Recent history of vancomycin-resistant enterococci Encephalopathy/hyperammonemia Chronic anemia - EGD 04/24/18: grade 1 varices, gastritis History of Present Illness History of Present Illness 62-year-old female PMHx H/o ESLD (DIAZ), recurrent ascites/frequent paracentesis, PVT, hepatic encephalopathy, esophageal varices, ESRD on HD (hepatorenal syndrome), chronic anemia (iron deficient in 04/2018) requiring transfusions, thrombocytopenia admitted through ED after she fell, hurting her left knee and missing dialysis. She was supposed to have paracentesis yesterday as well. To ER instead w/ daughter because couldn't manage at home w/ significant pain and limited mobility. Has been having diarrhea - started on pancreatic enzymes last admission, not taking at home, and she is not taking lactulose or Xifaxin as prescribed either Has desired further eval for liver transplant but declined by [facility] due to past behavior, also unable to transfer to [facility] in the past due to insurance. No overnight events. knee pain about the same. has not gotten out of bed much. CT left knee confirms large effusion and lipohemarthrosis, which is concerning for possible tibial plateau fracture, seen by ortho, placed in hinged knee brace and follow up set up for outpatient. Plan: Ok for d/c pending PT eval midodrine and insulin dose increases noted. HD per nephro Vitals Vitals Vital Signs Date Time Temp Pulse Resp B/P (MAP) Pulse Ox O2 Delivery O2 Flow Rate FiO2 09/08/18 07:00 97.9 81 17 112/56 (74) 94 Room Air 97.9 Physical Exam Physical Exam GENERAL: Propped up in bed, alert, NAD HENT: Normal conjunctivae. Oral cavity, pharynx clear. NECK: Supple, no JVD. LUNGS: Decreased in the bases, no wheeze. HEART: S1, S2. ABDOMEN: Obese, distended, soft, NT : Ashley, no urine output EXTREMITIES: Without clubbing, cyanosis. LLE bandaged, knee immobilizer off SKIN: Warm to touch without signs of rash. NEUROLOGIC: Nonfocal, moves all extremities. Port-A-Cath and HDC without complications. General: Alert, Cooperative Lungs: Clear, Other Abdomen: Other (massive ascites) Extremities: Other (the left knee does not have an effusion today, other than slight swelling. She does have trace ecchymosis over the proximal aspect of the medial collateral ligament, and most of the tenderness is medial. The gross alignment is normal. There was pain medially with valgus stress but no synovial laxity, and I suspect an MCL sprain based on the mechanism of injury and the current findings. The patella is not dislocated area of the extensor mechanism is intact. Except for the slight bruising the skin is intact red the lateral joint line is nontender. Difficult to assess her ACL became and PCL because she is holding the knee at about 30 of flexion, and has pain with attempts to move significantly.) Skin: No breakdown, Other (minor ecchymosis left knee medially) Labs LABS Laboratory Tests Test 09/07/18 11:16 09/07/18 17:07 09/07/18 20:29 09/08/18 03:00 Glucose (Fingerstick) 202 mg/dL (70-99) 195 mg/dL (70-99) 285 mg/dL (70-99) Urine Collection Type U cath Urine Color Red Urine Clarity Turbid Urine pH 7.5 Urine Specific Welches 1.025 Urine Protein >=300 mg/dL (NEG-TRACE) Urine Glucose (UA) Negative mg/dL (NEG) Urine Ketones (Stick) Trace mg/dL (NEG) Urine Blood Large (NEG) Urine Nitrite Positive (NEG) Urine Bilirubin Moderate (NEG) Urine Urobilinogen Dipstick 1.0 mg/dL (0.2 mg/dL) Urine Leukocyte Esterase Large (NEG) Urine RBC 1-2 /HPF (0-2) Urine WBC Tntc /HPF (0-4) Urine Squamous Epithelial Cells Occ /LPF Urine Transitional Epithelial Cells Occ /LPF Urine Renal Epithelial Cells Few /LPF Urine Bacteria Many /HPF (0-FEW) Urine Mucus Slight /LPF Test 09/08/18 05:00 09/08/18 07:36 Sodium Level 133 mmol/L (136-145) Potassium Level 3.7 mmol/L (3.5-5.1) Chloride Level 95 mmol/L (98-107) Carbon Dioxide Level 21 mmol/L (21-32) Anion Gap 17 (6-14) Blood Urea Nitrogen 42 mg/dL (7-20) Creatinine 6.6 mg/dL (0.6-1.0) Estimated GFR (Cockcroft-Gault) 6.4 BUN/Creatinine Ratio 6 (6-20) Glucose Level 241 mg/dL (70-99) Calcium Level 8.5 mg/dL (8.5-10.1) Total Bilirubin 2.2 mg/dL (0.2-1.0) Aspartate Amino Transf (AST/SGOT) 25 U/L (15-37) Alanine Aminotransferase (ALT/SGPT) 17 U/L (14-59) Alkaline Phosphatase 172 U/L (46-116) Total Protein 5.7 g/dL (6.4-8.2) Albumin 2.9 g/dL (3.4-5.0) Albumin/Globulin Ratio 1.0 (1.0-1.7) Glucose (Fingerstick) 217 mg/dL (70-99) Assessment and Plan Assessmemt and Plan Problems Medical Problems: (1) Fall Status: Acute (2) Hypotension Status: Acute (3) Knee effusion, left Status: Acute Comment Review of Relevant I have reviewed the following items chante (where applicable) has been applied. Labs Laboratory Tests Test 09/06/18 11:46 09/06/18 17:13 09/06/18 20:54 09/07/18 08:03 Glucose (Fingerstick) 243 mg/dL (70-99) 207 mg/dL (70-99) 223 mg/dL (70-99) 242 mg/dL (70-99) Test 09/07/18 08:50 09/07/18 11:16 09/07/18 17:07 09/07/18 20:29 White Blood Count 10.9 x10^3/uL (4.0-11.0) Red Blood Count 2.89 x10^6/uL (3.50-5.40) Hemoglobin 8.8 g/dL (12.0-15.5) Hematocrit 26.9 % (36.0-47.0) Mean Corpuscular Volume 93 fL (79-100) Mean Corpuscular Hemoglobin 31 pg (25-35) Mean Corpuscular Hemoglobin Concent 33 g/dL (31-37) Red Cell Distribution Width 19.6 % (11.5-14.5) Platelet Count 108 x10^3/uL (140-400) Neutrophils (%) (Auto) 76 % (31-73) Lymphocytes (%) (Auto) 5 % (24-48) Monocytes (%) (Auto) 18 % (0-9) Eosinophils (%) (Auto) 0 % (0-3) Basophils (%) (Auto) 1 % (0-3) Neutrophils # (Auto) 8.3 x10^3uL (1.8-7.7) Lymphocytes # (Auto) 0.5 x10^3/uL (1.0-4.8) Monocytes # (Auto) 2.0 x10^3/uL (0.0-1.1) Eosinophils # (Auto) 0.0 x10^3/uL (0.0-0.7) Basophils # (Auto) 0.1 x10^3/uL (0.0-0.2) Sodium Level 132 mmol/L (136-145) Potassium Level 3.4 mmol/L (3.5-5.1) Chloride Level 95 mmol/L (98-107) Carbon Dioxide Level 23 mmol/L (21-32) Anion Gap 14 (6-14) Blood Urea Nitrogen 35 mg/dL (7-20) Creatinine 5.7 mg/dL (0.6-1.0) Estimated GFR (Cockcroft-Gault) 7.6 BUN/Creatinine Ratio 6 (6-20) Glucose Level 269 mg/dL (70-99) Calcium Level 8.0 mg/dL (8.5-10.1) Total Bilirubin 1.6 mg/dL (0.2-1.0) Aspartate Amino Transf (AST/SGOT) 28 U/L (15-37) Alanine Aminotransferase (ALT/SGPT) 17 U/L (14-59) Alkaline Phosphatase 155 U/L (46-116) Total Protein 5.1 g/dL (6.4-8.2) Albumin 2.7 g/dL (3.4-5.0) Albumin/Globulin Ratio 1.1 (1.0-1.7) Glucose (Fingerstick) 202 mg/dL (70-99) 195 mg/dL (70-99) 285 mg/dL (70-99) Test 09/08/18 03:00 09/08/18 05:00 09/08/18 07:36 Urine Collection Type U cath Urine Color Red Urine Clarity Turbid Urine pH 7.5 Urine Specific Welches 1.025 Urine Protein >=300 mg/dL (NEG-TRACE) Urine Glucose (UA) Negative mg/dL (NEG) Urine Ketones (Stick) Trace mg/dL (NEG) Urine Blood Large (NEG) Urine Nitrite Positive (NEG) Urine Bilirubin Moderate (NEG) Urine Urobilinogen Dipstick 1.0 mg/dL (0.2 mg/dL) Urine Leukocyte Esterase Large (NEG) Urine RBC 1-2 /HPF (0-2) Urine WBC Tntc /HPF (0-4) Urine Squamous Epithelial Cells Occ /LPF Urine Transitional Epithelial Cells Occ /LPF Urine Renal Epithelial Cells Few /LPF Urine Bacteria Many /HPF (0-FEW) Urine Mucus Slight /LPF Sodium Level 133 mmol/L (136-145) Potassium Level 3.7 mmol/L (3.5-5.1) Chloride Level 95 mmol/L (98-107) Carbon Dioxide Level 21 mmol/L (21-32) Anion Gap 17 (6-14) Blood Urea Nitrogen 42 mg/dL (7-20) Creatinine 6.6 mg/dL (0.6-1.0) Estimated GFR (Cockcroft-Gault) 6.4 BUN/Creatinine Ratio 6 (6-20) Glucose Level 241 mg/dL (70-99) Calcium Level 8.5 mg/dL (8.5-10.1) Total Bilirubin 2.2 mg/dL (0.2-1.0) Aspartate Amino Transf (AST/SGOT) 25 U/L (15-37) Alanine Aminotransferase (ALT/SGPT) 17 U/L (14-59) Alkaline Phosphatase 172 U/L (46-116) Total Protein 5.7 g/dL (6.4-8.2) Albumin 2.9 g/dL (3.4-5.0) Albumin/Globulin Ratio 1.0 (1.0-1.7) Glucose (Fingerstick) 217 mg/dL (70-99) Laboratory Tests Test 09/07/18 11:16 09/07/18 17:07 09/07/18 20:29 09/08/18 03:00 Glucose (Fingerstick) 202 mg/dL (70-99) 195 mg/dL (70-99) 285 mg/dL (70-99) Urine Collection Type U cath Urine Color Red Urine Clarity Turbid Urine pH 7.5 Urine Specific Welches 1.025 Urine Protein >=300 mg/dL (NEG-TRACE) Urine Glucose (UA) Negative mg/dL (NEG) Urine Ketones (Stick) Trace mg/dL (NEG) Urine Blood Large (NEG) Urine Nitrite Positive (NEG) Urine Bilirubin Moderate (NEG) Urine Urobilinogen Dipstick 1.0 mg/dL (0.2 mg/dL) Urine Leukocyte Esterase Large (NEG) Urine RBC 1-2 /HPF (0-2) Urine WBC Tntc /HPF (0-4) Urine Squamous Epithelial Cells Occ /LPF Urine Transitional Epithelial Cells Occ /LPF Urine Renal Epithelial Cells Few /LPF Urine Bacteria Many /HPF (0-FEW) Urine Mucus Slight /LPF Test 09/08/18 05:00 09/08/18 07:36 Sodium Level 133 mmol/L (136-145) Potassium Level 3.7 mmol/L (3.5-5.1) Chloride Level 95 mmol/L (98-107) Carbon Dioxide Level 21 mmol/L (21-32) Anion Gap 17 (6-14) Blood Urea Nitrogen 42 mg/dL (7-20) Creatinine 6.6 mg/dL (0.6-1.0) Estimated GFR (Cockcroft-Gault) 6.4 BUN/Creatinine Ratio 6 (6-20) Glucose Level 241 mg/dL (70-99) Calcium Level 8.5 mg/dL (8.5-10.1) Total Bilirubin 2.2 mg/dL (0.2-1.0) Aspartate Amino Transf (AST/SGOT) 25 U/L (15-37) Alanine Aminotransferase (ALT/SGPT) 17 U/L (14-59) Alkaline Phosphatase 172 U/L (46-116) Total Protein 5.7 g/dL (6.4-8.2) Albumin 2.9 g/dL (3.4-5.0) Albumin/Globulin Ratio 1.0 (1.0-1.7) Glucose (Fingerstick) 217 mg/dL (70-99) Medications Current Medications Ondansetron HCl (Zofran) 4 mg PRN Q8HRS PRN IV NAUSEA/VOMITING; Start 09/04/18 at 12:15; Stop 09/05/18 at 12:14; Status DC Fentanyl Citrate (Fentanyl 2ml Vial) 50 mcg PRN Q1HR PRN IV PAIN; Start 09/04/18 at 12:15; Stop 09/05/18 at 12:14; Status DC Rifaximin (Xifaxan) 550 mg Q12HR PO Last administered on 09/08/18at 08:52; Start 09/04/18 at 14:30 Lactulose (Lactulose) 20 gm PRN TID PRN PO CONSTIPATION; Start 09/04/18 at 13:45 Pantoprazole Sodium (Protonix) 40 mg DAILYAC PO Last administered on 09/08/18at 05:16; Start 09/04/18 at 14:00 Diphenhydramine HCl (Benadryl) 25 mg PRN Q6HRS PRN PO ITCHING Last administered on 09/05/18at 00:04; Start 09/04/18 at 14:15 Lidocaine/Sodium Bicarbonate (Buffered Lidocaine 1%) 3 ml STK-MED ONCE .ROUTE ; Start 09/04/18 at 14:34; Stop 09/04/18 at 14:35; Status DC Lidocaine/Sodium Bicarbonate (Buffered Lidocaine 1%) 9 ml 1X ONCE INJ Last administered on 09/04/18at 14:57; Start 09/04/18 at 14:45; Stop 09/04/18 at 14:46; Status DC Albumin Human 100 ml @ 100 mls/hr 1X ONCE IV Last administered on 09/04/18at 15:30; Start 09/04/18 at 15:30; Stop 09/04/18 at 16:29; Status DC Albumin Human 100 ml @ 100 mls/hr 1X ONCE IV Last administered on 09/04/18at 15:30; Start 09/04/18 at 15:30; Stop 09/04/18 at 16:29; Status DC Albumin Human 100 ml @ 100 mls/hr 1X ONCE IV Last administered on 09/04/18at 15:44; Start 09/04/18 at 16:00; Stop 09/04/18 at 16:59; Status DC Diphenhydramine HCl (Benadryl) 25 mg Q6HRS PO ; Start 09/04/18 at 18:00; Status UNV Insulin Glargine (Lantus) 10 units HS SQ Last administered on 09/05/18at 22:09; Start 09/04/18 at 21:00; Stop 09/06/18 at 12:44; Status DC Lactulose (Lactulose) 20 gm TID PO ; Start 09/04/18 at 21:00 Calcium Acetate (Phoslo) 667 mg TIDWMEALS PO Last administered on 09/08/18at 08:51; Start 09/04/18 at 18:00 Insulin Human Lispro (HumaLOG) 0-5 UNITS TIDWMEALS SQ Last administered on 09/08/18at 09:01; Start 09/05/18 at 08:00 Dextrose (Dextrose 50%-Water Syringe) 12.5 gm PRN Q15MIN PRN IV SEE COMMENTS; Start 09/04/18 at 17:45 Insulin Human Lispro (HumaLOG) 6 units 1X ONCE SQ Last administered on 09/04/18at 18:11; Start 09/04/18 at 18:00; Stop 09/04/18 at 18:01; Status DC Cyclobenzaprine HCl (Flexeril) 10 mg PRN Q6HRS PRN PO MUSCLE SPASMS Last administered on 09/05/18at 05:56; Start 09/04/18 at 20:00 Acetaminophen/ Hydrocodone Bitart (Lortab 5/325) 1 tab PRN Q6HRS PRN PO PAIN Last administered on 09/04/18at 22:42; Start 09/04/18 at 20:45 Sodium Chloride 1,000 ml @ 1,000 mls/hr Q1H PRN IV hypotension; Start 09/05/18 at 09:30; Stop 09/05/18 at 19:00; Status DC Diphenhydramine HCl (Benadryl) 25 mg 1X PRN PRN IV ITCHING; Start 09/05/18 at 09:15; Stop 09/05/18 at 19:00; Status DC Diphenhydramine HCl (Benadryl) 25 mg 1X PRN PRN IV ITCHING; Start 09/05/18 at 09:15; Stop 09/05/18 at 19:00; Status DC Sodium Chloride 1,000 ml @ 400 mls/hr Q2H30M PRN IV PATENCY; Start 09/05/18 at 09:00; Stop 09/05/18 at 19:00; Status DC Info (PHARMACY MONITORING -- do not chart) 1 each PRN DAILY PRN MC SEE COMMENTS; Start 09/05/18 at 09:15 Albumin Human 200 ml @ 200 mls/hr 1X STAT IV Last administered on 09/05/18at 11:28; Start 09/05/18 at 11:17; Stop 09/05/18 at 12:16; Status DC Non-Formulary Medication (Midodrine Hcl ) 5 mg TID PO ; Start 09/06/18 at 14:00; Status UNV Midodrine (Proamatine) 5 mg [id number] PO Last administered on 09/06/18at 11:45; St art 09/06/18 at 13:00; Stop 09/06/18 at 13:00; Status DC Nystatin (Mycostatin) 1 kiana BID TP Last administered on 09/08/18at 05:48; Start 09/06/18 at 13:00 Clotrimazole (Mycelex) 10 mg 5XDAY MM Last administered on 09/08/18at 05:16; Start 09/06/18 at 14:00 Lactobacillus Rhamnosus (Culturelle) 1 cap BID PO Last administered on 09/08/18 08:52; Start 09/06/18 at 13:00 Midodrine (Proamatine) 5 mg 1X ONCE PO Last administered on 09/06/18at 12:55; Start 09/06/18 at 12:45; Stop 09/06/18 at 12:46; Status DC Insulin Glargine (Lantus) 12 units HS SQ Last administered on 09/07/18at 20:34; Start 09/06/18 at 21:00 Midodrine (Proamatine) 10 mg [id number] PO Last administered on 09/08/18 05:16; Start 09/06/18 at 18:00 Phenyleph/Shark Oil/Min Oil/Petrol (Preparation H) 1 kiana PRN DAILY PRN RC RECTAL PAIN Last administered on 09/07/18at 20:29; Start 09/06/18 at 12:45 Active Scripts Active Reported Benadryl (Diphenhydramine Hcl) 25 Mg Capsule 25 Mg PO Q6HRS Calcium Acetate 667 Mg Tablet 667 Mg PO TIDWMEALS Dialyvite Tablet (Folic Acid/Vitamin B Comp W-C) 1 Each Tablet 1 Each PO DAILY Midodrine Hcl 5 Mg Tablet 5 Mg PO TID Cyclobenzaprine Hcl 5 Mg Tablet 1 Tab PO TID Omeprazole 40 Mg Capsule.dr 1 Cap PO DAILY Xifaxan (Rifaximin) 550 Mg Tablet 1 Tab PO BID Fusion Plus Capsule (Iron,Fum&Ps/Fa/Vit B&C#18/L.ca) 1 Each Capsule 1 Each PO Albuterol Sulfate Conc Neb Soln (Albuterol Sulfate) 2.5 Mg/0.5 Ml Vial.neb 2.5 Mg NEB Q6HRS PRN Lactulose 20 Gm/30 Ml Solution 20 Gm PO TID Lantus Solostar (Insulin Glargine,Hum.rec.anlog) 100 Unit/1 Ml Insuln.pen 0 SQ HS SSI Calcium + Vitamin D Tablet (Calcium Carbonate/Vitamin D3) 1 Each Tablet 1 Each PO Albuterol Sulfate Hfa Inhaler (Albuterol Sulfate) 8.5 Gm Hfa.aer.ad 8.5 Gm IH Novolog Flexpen (Insulin Aspart) 100 Unit/1 Ml Insuln.pen 0 SQ TIDAC ssi Synthroid (Levothyroxine Sodium) 25 Mcg Tablet 300 Mcg PO DAILY Flovent 110MCG Hfa (Fluticasone Propionate) 12 Gm Aer.w.adap 12 Gm IH Vitals/I & O Vital Sign - Last 24 Hours 09/07/18 09/07/18 09/07/18 09/07/18 13:00 15:00 17:58 19:56 Temp 97.9 98.7 97.9 98.7 Pulse 98 82 82 104 Resp 18 16 B/P (MAP) 98/34 106/34 (58) 106/34 106/42 (63) Pulse Ox 100 95 O2 Delivery Room Air Room Air 09/07/18 09/07/18 09/08/18 09/08/18 20:20 23:23 03:50 05:16 Temp 98.0 98.4 98.0 98.4 Pulse 104 106 106 Resp 16 20 B/P (MAP) 98/34 (55) 97/32 (53) 97/32 Pulse Ox 98 92 O2 Delivery Room Air Room Air Room Air 09/08/18 07:00 Temp 97.9 97.9 Pulse 81 Resp 17 B/P (MAP) 112/56 (74) Pulse Ox 94 O2 Delivery Room Air Intake and Output 09/07/18 09/07/18 09/08/18 15:00 23:00 07:00 Intake Total 100 ml 340 ml Output Total 0 ml Balance 100 ml 340 ml TEDDY PERALES MD September 08, 2018 11:07
--- NOTE | 2018-09-08 11:10 | NUR ---
SW following for discharge planning. Discussed with RN, pt refusing PT/OT, MWF dialysis. Pt getting a brace today, so hopefully will work with therapy. SW will continue to follow for any discharge planning needs.
--- NOTE | 2018-09-08 11:50 | PDOC ---
Subjective: Subjective: Knee hurts. Tolerating PO - breakfast was cold. Stooling. Doesn't think it will be time for paracentesis until . Objective: Objective: Reviewed w/ RN - refuses lactulose, is stooling and taking Xifaxan, sometimes is pleasant and sometimes yells and uses profanity. Vital Signs: Vital Signs Date Time Temp Pulse Resp B/P (MAP) Pulse Ox O2 Delivery O2 Flow Rate FiO2 09/08/18 07:00 97.9 81 17 112/56 (74) 94 Room Air 97.9 Labs: Laboratory Tests Test 09/07/18 17:07 09/07/18 20:29 09/08/18 07:36 Glucose (Fingerstick) 195 mg/dL (70-99) 285 mg/dL (70-99) 217 mg/dL (70-99) PE: GEN: NAD, in recliner LUNGS: CTAB HEART: RRR ABD: ascites - not tight, no discomfort EXTREMITY: LLE brace NEURO/PSYCH: A & O 3, calm A/P: Left knee injury - recs for brace per ortho ESLD and ESRD (DIAZ), recurrent ascites requiring frequent paracentesis (last 12L on 09/04), chronic anemia -- Continue same per GI. JENNIE ABRAMS September 08, 2018 11:50
[2018-09-08] MEDS ORDERED: LACTULOSE 20 GM/30 ML SOLUTION. PO PRN (12:00)
--- NOTE | 2018-09-08 12:10 | PDOC ---
Infectious Disease Note Subjective Subjective Pt says doing ok Denies N/V/F/C/S/pain Vital Sign Vital Signs Vital Signs Date Time Temp Pulse Resp B/P (MAP) Pulse Ox O2 Delivery O2 Flow Rate FiO2 09/08/18 07:00 97.9 81 17 112/56 (74) 94 Room Air 97.9 Physical Exam PHYSICAL EXAM GENERAL: Propped up in bed, alert, NAD HENT: Normal conjunctivae. Oral cavity, pharynx clear. NECK: Supple, no JVD. LUNGS: Decreased in the bases, no wheeze. HEART: S1, S2. ABDOMEN: Obese, distended, soft, NT : Ashley, no urine output EXTREMITIES: Without clubbing, cyanosis. LLE bandaged, knee immobilizer off SKIN: Warm to touch without signs of rash. NEUROLOGIC: Nonfocal, moves all extremities. Port-A-Cath and HDC without complications. Labs Lab Laboratory Tests Test 09/07/18 17:07 09/07/18 20:29 09/08/18 03:00 09/08/18 05:00 Glucose (Fingerstick) 195 mg/dL (70-99) 285 mg/dL (70-99) Urine Collection Type U cath Urine Color Red Urine Clarity Turbid Urine pH 7.5 Urine Specific Walden 1.025 Urine Protein >=300 mg/dL (NEG-TRACE) Urine Glucose (UA) Negative mg/dL (NEG) Urine Ketones (Stick) Trace mg/dL (NEG) Urine Blood Large (NEG) Urine Nitrite Positive (NEG) Urine Bilirubin Moderate (NEG) Urine Urobilinogen Dipstick 1.0 mg/dL (0.2 mg/dL) Urine Leukocyte Esterase Large (NEG) Urine RBC 1-2 /HPF (0-2) Urine WBC Tntc /HPF (0-4) Urine Squamous Epithelial Cells Occ /LPF Urine Transitional Epithelial Cells Occ /LPF Urine Renal Epithelial Cells Few /LPF Urine Bacteria Many /HPF (0-FEW) Urine Mucus Slight /LPF Sodium Level 133 mmol/L (136-145) Potassium Level 3.7 mmol/L (3.5-5.1) Chloride Level 95 mmol/L (98-107) Carbon Dioxide Level 21 mmol/L (21-32) Anion Gap 17 (6-14) Blood Urea Nitrogen 42 mg/dL (7-20) Creatinine 6.6 mg/dL (0.6-1.0) Estimated GFR (Cockcroft-Gault) 6.4 BUN/Creatinine Ratio 6 (6-20) Glucose Level 241 mg/dL (70-99) Calcium Level 8.5 mg/dL (8.5-10.1) Total Bilirubin 2.2 mg/dL (0.2-1.0) Aspartate Amino Transf (AST/SGOT) 25 U/L (15-37) Alanine Aminotransferase (ALT/SGPT) 17 U/L (14-59) Alkaline Phosphatase 172 U/L (46-116) Total Protein 5.7 g/dL (6.4-8.2) Albumin 2.9 g/dL (3.4-5.0) Albumin/Globulin Ratio 1.0 (1.0-1.7) Test 09/08/18 07:36 09/08/18 11:50 Glucose (Fingerstick) 217 mg/dL (70-99) 285 mg/dL (70-99) Objective Assessment 1. Lower extremity CT shows large joint fluid and there is some indentation identified in the lateral tibial plateau with lucency, large amount of edema in the soft tissues, degenerative changes throughout the knee, tiny ossific density. Other findings are reviewed. 2. Status post fall. 3. Left knee contusion. 4. Chronic kidney disease, on hemodialysis. 5. History of urinary tract infection, currently complains of some discomfort. 6. ANTIBIOTIC ALLERGY, has tolerated Zosyn and levofloxacin. 7. Ascites, status post paracentesis on the 16th. 12L removed Plan Plan of Care Continue to hold abx. Only UC done today, not UA Straight cath for UA with micro and C and S (not collected yet ) Monitor labs Dr. Rivers's input noted D/W LIMA BARBOZA MD September 08, 2018 12:10
--- NOTE | 2018-09-08 13:30 | NUR ---
Pt called this nurse, she was crying and stated she lost a tooth. One tooth on lower front row missing, per previous assessment, no teeth on lower front were missing. Pt stated she put it on the lunch tray and it was taken away.
--- NOTE | 2018-09-08 13:42 | PDOC ---
SUBJECTIVE ROS Stable OBJECTIVE Vital Signs Vital Signs Date Time Temp Pulse Resp B/P (MAP) Pulse Ox O2 Delivery O2 Flow Rate FiO2 09/08/18 12:20 88 102/31 09/08/18 11:00 97.9 17 96 Room Air 97.9 I & 0 Intake and Output 09/08/18 07:00 Intake Total 440 ml Output Total 0 ml Balance 440 ml Intake Oral 440 ml Stool Total 0 ml # Bowel Movements 1 PHYSICAL EXAM Physical Exam GEN: NAD HEEN: OM moist NECK: Supple CVS: RRR RESP: CTA ,no Acc. Muscle Use GI: Distended, Ascites++ : [No CVA tenderness, [No Suprapubic Tenderness, No Ashley NEURO- AxO x3, Grossly normal SKIN NO rash EXT No edema DIAGNOSIS/ASSESSMENT Assessment & Plan ESRD- On HD MWF at - Dr. Tracy No indication for HD today Cirrhosis / DIAZ Recurrent ascites requiring frequent paracentesis (last 12L on 09/04) GI managing Pt and daughter reports getting eval for liver tx at [facility] Lt Knee Effusion s/p fall Ortho recommended fu as OP Chronic anemia- Varices Hypotension- Chronic sec to Cirrhosis COMMENT/RELEVANT DATA Meds Current Medications Medications (Trade) Dose Ordered Sig/Emanuel Start Time Stop Time Status Last Admin Dose Admin Acetaminophen/ Hydrocodone Bitart (Lortab 5/325) 1 tab PRN Q6HRS PRN 09/04/18 20:45 09/04/18 22:42 1 TAB Albumin Human 200 ml @ 200 mls/hr 1X STAT 09/05/18 11:17 09/05/18 12:16 DC 09/05/18 11:28 200 MLS/HR Calcium Acetate (Phoslo) 667 mg TIDWMEALS 09/04/18 18:00 09/08/18 12:20 667 MG Clotrimazole (Mycelex) 10 mg 5XDAY 09/06/18 14:00 09/08/18 05:16 10 MG Cyclobenzaprine HCl (Flexeril) 10 mg PRN Q6HRS PRN 09/04/18 20:00 09/05/18 05:56 10 MG Dextrose (Dextrose 50%-Water Syringe) 12.5 gm PRN Q15MIN PRN 09/04/18 17:45 Diphenhydramine HCl (Benadryl) 25 mg 1X PRN PRN 09/05/18 09:15 09/05/18 19:00 DC Fentanyl Citrate (Fentanyl 2ml Vial) 50 mcg PRN Q1HR PRN 09/04/18 12:15 09/05/18 12:14 DC Info (PHARMACY MONITORING -- do not chart) 1 each PRN DAILY PRN 09/05/18 09:15 Insulin Glargine (Lantus) 12 units HS 09/06/18 21:00 09/07/18 20:34 12 UNITS Insulin Human Lispro (HumaLOG) 6 units 1X ONCE 09/04/18 18:00 09/04/18 18:01 DC 09/04/18 18:11 6 UNITS Lactobacillus Rhamnosus (Culturelle) 1 cap BID 09/06/18 13:00 09/08/18 08:52 1 CAP Lactulose (Lactulose) 20 gm PRN TID PRN 09/08/18 12:00 Lidocaine/Sodium Bicarbonate (Buffered Lidocaine 1%) 9 ml 1X ONCE 09/04/18 14:45 09/04/18 14:46 DC 09/04/18 14:57 8 ML Midodrine (Proamatine) 10 mg [id number] 09/06/18 18:00 09/08/18 12:20 10 MG Non-Formulary Medication (Midodrine Hcl ) 5 mg TID 09/06/18 14:00 UNV Nystatin (Mycostatin) 1 kiana BID 09/06/18 13:00 09/08/18 05:48 1 KIANA Ondansetron HCl (Zofran) 4 mg PRN Q8HRS PRN 09/04/18 12:15 09/05/18 12:14 DC Pantoprazole Sodium (Protonix) 40 mg DAILYAC 09/04/18 14:00 09/08/18 05:16 40 MG Phenyleph/Shark Oil/Min Oil/Petrol (Preparation H) 1 kiana PRN DAILY PRN 09/06/18 12:45 09/07/18 20:29 1 KIANA Rifaximin (Xifaxan) 550 mg Q12HR 09/04/18 14:30 09/08/18 08:52 550 MG Sodium Chloride 1,000 ml @ 400 mls/hr Q2H30M PRN 09/05/18 09:00 09/05/18 19:00 DC Lab Laboratory Tests Test 09/07/18 17:07 09/07/18 20:29 09/08/18 03:00 09/08/18 05:00 Glucose (Fingerstick) 195 mg/dL (70-99) 285 mg/dL (70-99) Urine Collection Type U cath Urine Color Red Urine Clarity Turbid Urine pH 7.5 Urine Specific [place] 1.025 Urine Protein >=300 mg/dL (NEG-TRACE) Urine Glucose (UA) Negative mg/dL (NEG) Urine Ketones (Stick) Trace mg/dL (NEG) Urine Blood Large (NEG) Urine Nitrite Positive (NEG) Urine Bilirubin Moderate (NEG) Urine Urobilinogen Dipstick 1.0 mg/dL (0.2 mg/dL) Urine Leukocyte Esterase Large (NEG) Urine RBC 1-2 /HPF (0-2) Urine WBC Tntc /HPF (0-4) Urine Squamous Epithelial Cells Occ /LPF Urine Transitional Epithelial Cells Occ /LPF Urine Renal Epithelial Cells Few /LPF Urine Bacteria Many /HPF (0-FEW) Urine Mucus Slight /LPF Sodium Level 133 mmol/L (136-145) Potassium Level 3.7 mmol/L (3.5-5.1) Chloride Level 95 mmol/L (98-107) Carbon Dioxide Level 21 mmol/L (21-32) Anion Gap 17 (6-14) Blood Urea Nitrogen 42 mg/dL (7-20) Creatinine 6.6 mg/dL (0.6-1.0) Estimated GFR (Cockcroft-Gault) 6.4 BUN/Creatinine Ratio 6 (6-20) Glucose Level 241 mg/dL (70-99) Calcium Level 8.5 mg/dL (8.5-10.1) Total Bilirubin 2.2 mg/dL (0.2-1.0) Aspartate Amino Transf (AST/SGOT) 25 U/L (15-37) Alanine Aminotransferase (ALT/SGPT) 17 U/L (14-59) Alkaline Phosphatase 172 U/L (46-116) Total Protein 5.7 g/dL (6.4-8.2) Albumin 2.9 g/dL (3.4-5.0) Albumin/Globulin Ratio 1.0 (1.0-1.7) Test 09/08/18 07:36 09/08/18 11:50 Glucose (Fingerstick) 217 mg/dL (70-99) 285 mg/dL (70-99) Results All relevant outside records, renal labs, imaging studies, telemetry/EKG's were reviewed. DARLING SHORT MD September 08, 2018 13:42
--- NOTE | 2018-09-08 14:51 | NUR ---
Wound Care Pt refused wound care assessment of coccyx wound. Pt very tearful and then stated "I want to be left alone, leave my room." WC will attempt to see again tomorrow.
[2018-09-08 15:00] VITALS: BP 104/36
[2018-09-08 19:00] VITALS: BP 89/29
--- NOTE | 2018-09-08 19:00 | NUR ---
Earlier today, this nurse spoke with environmental resource specialist and was told that Pt's dialysis treatment was going to be later today. Attempted to call dialysis rooms several times and got no response. mini shifter RN informed of the fact that Pt still needs to have dialysis.
[2018-09-08] MEDS ORDERED: IV NORMAL SALINE 1000ML BAG 1,000 ML IV PRN ×2 (20:03)
[2018-09-08] MEDS ORDERED: DIALYSIS PATIENT. MC PRN ×2 (20:15)
[2018-09-08] MEDS ORDERED: ALBUMIN HUMAN 25% 200 ML IV PRN (20:15)
[2018-09-08] MEDS ORDERED: ALTEPLASE 1MG SYRINGE. INT CAT ONE (22:30)
[2018-09-08 23:00] VITALS: BP 84/33
[2018-09-08] MEDS: INSULIN GLARGINE 300 UNITS/3 ML INSULN.PEN. SQ SCH (23:05)
[2018-09-09 03:00] VITALS: BP 80/25
--- NOTE | 2018-09-09 03:25 | NUR ---
Patient went to dialysis earlier in the shift. It was reported to me that they were unable to access her catheter due to it being clotted. Was informed that they attempted cath-hemalatha and it had no effect. Patient returned to the floor and had no fluid taken off during her time in dialysis. Patient vitals taken and patient be placed in lowest position, locked and call light within in reach. Will continue to monitor the patient.
[2018-09-09 06:15] LABS: ALBUMIN 2.5 g/dL (3.4-5.0); ALBUMIN/GLOBULIN RATIO 0.9 (1.0-1.7); CALCIUM 7.9 mg/dL (8.5-10.1); CREATININE 5.4 mg/dL (0.6-1.0); GFR 8.1; POTASSIUM 3.5 mmol/L (3.5-5.1); TOTAL BILIRUBIN 2.1 mg/dL (0.2-1.0); TOTAL PROTEIN 5.4 g/dL (6.4-8.2)
[2018-09-09] MEDS: MIDODRINE 5 MG TABLET PO SCH ×3 (06:17→18:15)
[2018-09-09] MEDS: PANTOPRAZOLE 40 MG TABLET.DR. PO SCH (06:17)
[2018-09-09 07:00] VITALS: BP 86/29
[2018-09-09] MEDS: INSULIN LISPRO 300 UNITS/3 ML INSULN.PEN. SQ SCH ×3 (08:00→18:20)
--- NOTE | 2018-09-09 10:00 | PDOC ---
Subjective: Subjective: Pancakes are "so-so." Ascites is stable. Objective: Objective: D/w Dr. Hurtado - ?DC today Reviewed chart - dialysis issues yesterday. Vital Signs: Vital Signs Date Time Temp Pulse Resp B/P (MAP) Pulse Ox O2 Delivery O2 Flow Rate FiO2 09/09/18 07:00 98.4 95 18 86/29 (48) 92 Room Air 98.4 Labs: Laboratory Tests Test 09/08/18 11:50 09/08/18 14:51 09/08/18 16:58 09/08/18 22:39 Glucose (Fingerstick) 285 mg/dL 233 mg/dL 259 mg/dL 234 mg/dL Test 09/09/18 05:52 09/09/18 07:32 Sodium Level 135 mmol/L Potassium Level 3.5 mmol/L Chloride Level 97 mmol/L Carbon Dioxide Level 24 mmol/L Anion Gap 14 Blood Urea Nitrogen 38 mg/dL Creatinine 5.4 mg/dL Estimated GFR (Cockcroft-Gault) 8.1 BUN/Creatinine Ratio 7 Glucose Level 277 mg/dL Calcium Level 7.9 mg/dL Total Bilirubin 2.1 mg/dL Aspartate Amino Transf (AST/SGOT) 25 U/L Alanine Aminotransferase (ALT/SGPT) 16 U/L Alkaline Phosphatase 172 U/L Total Protein 5.4 g/dL Albumin 2.5 g/dL Albumin/Globulin Ratio 0.9 Glucose (Fingerstick) 251 mg/dL PE: GEN: NAD, eating breakfast LUNGS: room air HEART: RRR ABD: ascites, not tight NEURO/PSYCH: A & O 3, not talkative today A/P: Left knee injury ESLD, recurrent ascites ESRD Chronic anemia, thrombocytopenia -- MELD 27. Continue same per GI. DC per primary and nephrology. JENNIE ABRAMS September 09, 2018 10:00
--- NOTE | 2018-09-09 10:06 | PDOC ---
Infectious Disease Note Subjective Subjective sleepy ROS ROS no n/v/d/fever , per RN Vital Sign Vital Signs Vital Signs Date Time Temp Pulse Resp B/P (MAP) Pulse Ox O2 Delivery O2 Flow Rate FiO2 09/09/18 07:00 98.4 95 18 86/29 (48) 92 Room Air 98.4 Physical Exam PHYSICAL EXAM GENERAL: Propped up in bed, alert, NAD HENT: Normal conjunctivae. Oral cavity, pharynx clear. NECK: Supple, no JVD. LUNGS: Decreased in the bases, no wheeze. HEART: S1, S2. ABDOMEN: Obese, distended, soft, NT : Ashley, no urine output EXTREMITIES: Without clubbing, cyanosis. LLE bandaged, knee immobilizer off SKIN: Warm to touch without signs of rash. NEUROLOGIC: Nonfocal, moves all extremities. Port-A-Cath and HDC without complications. Labs Lab Laboratory Tests Test 09/08/18 11:50 09/08/18 14:51 09/08/18 16:58 09/08/18 22:39 Glucose (Fingerstick) 285 mg/dL (70-99) 233 mg/dL (70-99) 259 mg/dL (70-99) 234 mg/dL (70-99) Test 09/09/18 05:52 09/09/18 07:32 Sodium Level 135 mmol/L (136-145) Potassium Level 3.5 mmol/L (3.5-5.1) Chloride Level 97 mmol/L (98-107) Carbon Dioxide Level 24 mmol/L (21-32) Anion Gap 14 (6-14) Blood Urea Nitrogen 38 mg/dL (7-20) Creatinine 5.4 mg/dL (0.6-1.0) Estimated GFR (Cockcroft-Gault) 8.1 BUN/Creatinine Ratio 7 (6-20) Glucose Level 277 mg/dL (70-99) Calcium Level 7.9 mg/dL (8.5-10.1) Total Bilirubin 2.1 mg/dL (0.2-1.0) Aspartate Amino Transf (AST/SGOT) 25 U/L (15-37) Alanine Aminotransferase (ALT/SGPT) 16 U/L (14-59) Alkaline Phosphatase 172 U/L (46-116) Total Protein 5.4 g/dL (6.4-8.2) Albumin 2.5 g/dL (3.4-5.0) Albumin/Globulin Ratio 0.9 (1.0-1.7) Glucose (Fingerstick) 251 mg/dL (70-99) Micro Objective Assessment 1. Lower extremity CT shows large joint fluid and there is some indentation identified in the lateral tibial plateau with lucency, large amount of edema in the soft tissues, degenerative changes throughout the knee, tiny ossific density. Other findings are reviewed. 2. Status post fall. 3. Left knee contusion. 4. Chronic kidney disease, on hemodialysis. 5. History of urinary tract infection, currently complains of some discomfort. 6. ANTIBIOTIC ALLERGY, has tolerated Zosyn and levofloxacin. 7. Ascites, status post paracentesis on the 16. 12L removed Abnormal u/a with G neg verito culture Plan Plan of Care Continue to hold abx. Only UC done today, not UA Straight cath for UA with micro and C and S (not collected yet ) Monitor labs Dr. Rivers's input noted D/W LIMA BARBOZA MD September 09, 2018 10:06
[2018-09-09] MEDS: CALCIUM ACETATE 667 MG CAPSULE PO SCH ×3 (10:09→18:13)
[2018-09-09] MEDS: rifAXIMin 550 MG TABLET PO SCH ×2 (10:10→20:52)
[2018-09-09] MEDS: LACTOBACILLUS RHAMNOSUS GG 1 CAPSULE. PO SCH ×2 (10:10→20:52)
[2018-09-09] MEDS: NYSTATIN 100,000 UNIT/GM TOPICAL CREAM 15GM TUBE. TP SCH ×2 (10:30→20:52)
[2018-09-09 11:00] VITALS: BP 94/39
[2018-09-09] MEDS ORDERED: GENTAMICIN SULFATE IV ONE (11:00)
[2018-09-09] MEDS ORDERED: NORMAL SALINE IV ONE (11:00)
--- NOTE | 2018-09-09 13:15 | PDOC ---
PROGRESS NOTES Chief Complaint Chief Complaint ESRD on HD - 2/2 hepatorenal syndrome Left knee pain with Large joint effusion End-stage liver disease with recurrent ascites s/p recent para 5/16 Recent history of vancomycin-resistant enterococci Encephalopathy/hyperammonemia Chronic anemia - EGD 04/24/18: grade 1 varices, gastritis History of Present Illness History of Present Illness 62-year-old female PMHx H/o ESLD (DIAZ), recurrent ascites/frequent paracentesis, PVT, hepatic encephalopathy, esophageal varices, ESRD on HD (hepatorenal syndrome), chronic anemia (iron deficient in 04/2018) requiring transfusions, thrombocytopenia admitted through ED after she fell, hurting her left knee and missing dialysis. She was supposed to have paracentesis yesterday as well. To ER instead w/ daughter because couldn't manage at home w/ significant pain and limited mobility. Has been having diarrhea - started on pancreatic enzymes last admission, not taking at home, and she is not taking lactulose or Xifaxin as prescribed either Has desired further eval for liver transplant but declined by [facility] due to past behavior, also unable to transfer to [facility] in the past due to insurance. patient reportedly did not get full HD session. yesterday. working with PT. have adjusted midodrine and insulin doses--increased. Vitals Vitals Vital Signs Date Time Temp Pulse Resp B/P (MAP) Pulse Ox O2 Delivery O2 Flow Rate FiO2 09/09/18 07:00 98.4 95 18 86/29 (48) 92 Room Air 98.4 Physical Exam Physical Exam GENERAL: Propped up in bed, alert, NAD HENT: Normal conjunctivae. Oral cavity, pharynx clear. NECK: Supple, no JVD. LUNGS: Decreased in the bases, no wheeze. HEART: S1, S2. ABDOMEN: Obese, distended, soft, NT : Ashley, no urine output EXTREMITIES: Without clubbing, cyanosis. LLE bandaged, knee immobilizer off SKIN: Warm to touch without signs of rash. NEUROLOGIC: Nonfocal, moves all extremities. Port-A-Cath and HDC without complications. General: Alert, Cooperative Lungs: Clear, Other Abdomen: Other (massive ascites) Extremities: Other (the left knee does not have an effusion today, other than slight swelling. She does have trace ecchymosis over the proximal aspect of the medial collateral ligament, and most of the tenderness is medial. The gross alignment is normal. There was pain medially with valgus stress but no synovial laxity, and I suspect an MCL sprain based on the mechanism of injury and the current findings. The patella is not dislocated area of the extensor mechanism is intact. Except for the slight bruising the skin is intact red the lateral joint line is nontender. Difficult to assess her ACL became and PCL because she is holding the knee at about 30 of flexion, and has pain with attempts to move significantly.) Skin: No breakdown, Other (minor ecchymosis left knee medially) Labs LABS Laboratory Tests Test 09/08/18 14:51 09/08/18 16:58 09/08/18 22:39 09/09/18 05:52 Glucose (Fingerstick) 233 mg/dL (70-99) 259 mg/dL (70-99) 234 mg/dL (70-99) Sodium Level 135 mmol/L (136-145) Potassium Level 3.5 mmol/L (3.5-5.1) Chloride Level 97 mmol/L (98-107) Carbon Dioxide Level 24 mmol/L (21-32) Anion Gap 14 (6-14) Blood Urea Nitrogen 38 mg/dL (7-20) Creatinine 5.4 mg/dL (0.6-1.0) Estimated GFR (Cockcroft-Gault) 8.1 BUN/Creatinine Ratio 7 (6-20) Glucose Level 277 mg/dL (70-99) Calcium Level 7.9 mg/dL (8.5-10.1) Total Bilirubin 2.1 mg/dL (0.2-1.0) Aspartate Amino Transf (AST/SGOT) 25 U/L (15-37) Alanine Aminotransferase (ALT/SGPT) 16 U/L (14-59) Alkaline Phosphatase 172 U/L (46-116) Total Protein 5.4 g/dL (6.4-8.2) Albumin 2.5 g/dL (3.4-5.0) Albumin/Globulin Ratio 0.9 (1.0-1.7) Test 09/09/18 07:32 09/09/18 11:11 Glucose (Fingerstick) 251 mg/dL (70-99) 261 mg/dL (70-99) Assessment and Plan Assessmemt and Plan Problems Medical Problems: (1) Fall Status: Acute (2) Hypotension Status: Acute (3) Knee effusion, left Status: Acute Comment Review of Relevant I have reviewed the following items chante (where applicable) has been applied. Labs Laboratory Tests Test 09/07/18 17:07 09/07/18 20:29 09/08/18 03:00 09/08/18 05:00 Glucose (Fingerstick) 195 mg/dL (70-99) 285 mg/dL (70-99) Urine Collection Type U cath Urine Color Red Urine Clarity Turbid Urine pH 7.5 Urine Specific [place] 1.025 Urine Protein >=300 mg/dL (NEG-TRACE) Urine Glucose (UA) Negative mg/dL (NEG) Urine Ketones (Stick) Trace mg/dL (NEG) Urine Blood Large (NEG) Urine Nitrite Positive (NEG) Urine Bilirubin Moderate (NEG) Urine Urobilinogen Dipstick 1.0 mg/dL (0.2 mg/dL) Urine Leukocyte Esterase Large (NEG) Urine RBC 1-2 /HPF (0-2) Urine WBC Tntc /HPF (0-4) Urine Squamous Epithelial Cells Occ /LPF Urine Transitional Epithelial Cells Occ /LPF Urine Renal Epithelial Cells Few /LPF Urine Bacteria Many /HPF (0-FEW) Urine Mucus Slight /LPF Sodium Level 133 mmol/L (136-145) Potassium Level 3.7 mmol/L (3.5-5.1) Chloride Level 95 mmol/L (98-107) Carbon Dioxide Level 21 mmol/L (21-32) Anion Gap 17 (6-14) Blood Urea Nitrogen 42 mg/dL (7-20) Creatinine 6.6 mg/dL (0.6-1.0) Estimated GFR (Cockcroft-Gault) 6.4 BUN/Creatinine Ratio 6 (6-20) Glucose Level 241 mg/dL (70-99) Calcium Level 8.5 mg/dL (8.5-10.1) Total Bilirubin 2.2 mg/dL (0.2-1.0) Aspartate Amino Transf (AST/SGOT) 25 U/L (15-37) Alanine Aminotransferase (ALT/SGPT) 17 U/L (14-59) Alkaline Phosphatase 172 U/L (46-116) Total Protein 5.7 g/dL (6.4-8.2) Albumin 2.9 g/dL (3.4-5.0) Albumin/Globulin Ratio 1.0 (1.0-1.7) Test 09/08/18 07:36 09/08/18 11:50 09/08/18 14:51 09/08/18 16:58 Glucose (Fingerstick) 217 mg/dL (70-99) 285 mg/dL (70-99) 233 mg/dL (70-99) 259 mg/dL (70-99) Test 09/08/18 22:39 09/09/18 05:52 09/09/18 07:32 09/09/18 11:11 Glucose (Fingerstick) 234 mg/dL (70-99) 251 mg/dL (70-99) 261 mg/dL (70-99) Sodium Level 135 mmol/L (136-145) Potassium Level 3.5 mmol/L (3.5-5.1) Chloride Level 97 mmol/L (98-107) Carbon Dioxide Level 24 mmol/L (21-32) Anion Gap 14 (6-14) Blood Urea Nitrogen 38 mg/dL (7-20) Creatinine 5.4 mg/dL (0.6-1.0) Estimated GFR (Cockcroft-Gault) 8.1 BUN/Creatinine Ratio 7 (6-20) Glucose Level 277 mg/dL (70-99) Calcium Level 7.9 mg/dL (8.5-10.1) Total Bilirubin 2.1 mg/dL (0.2-1.0) Aspartate Amino Transf (AST/SGOT) 25 U/L (15-37) Alanine Aminotransferase (ALT/SGPT) 16 U/L (14-59) Alkaline Phosphatase 172 U/L (46-116) Total Protein 5.4 g/dL (6.4-8.2) Albumin 2.5 g/dL (3.4-5.0) Albumin/Globulin Ratio 0.9 (1.0-1.7) Laboratory Tests Test 09/08/18 14:51 09/08/18 16:58 09/08/18 22:39 09/09/18 05:52 Glucose (Fingerstick) 233 mg/dL (70-99) 259 mg/dL (70-99) 234 mg/dL (70-99) Sodium Level 135 mmol/L (136-145) Potassium Level 3.5 mmol/L (3.5-5.1) Chloride Level 97 mmol/L (98-107) Carbon Dioxide Level 24 mmol/L (21-32) Anion Gap 14 (6-14) Blood Urea Nitrogen 38 mg/dL (7-20) Creatinine 5.4 mg/dL (0.6-1.0) Estimated GFR (Cockcroft-Gault) 8.1 BUN/Creatinine Ratio 7 (6-20) Glucose Level 277 mg/dL (70-99) Calcium Level 7.9 mg/dL (8.5-10.1) Total Bilirubin 2.1 mg/dL (0.2-1.0) Aspartate Amino Transf (AST/SGOT) 25 U/L (15-37) Alanine Aminotransferase (ALT/SGPT) 16 U/L (14-59) Alkaline Phosphatase 172 U/L (46-116) Total Protein 5.4 g/dL (6.4-8.2) Albumin 2.5 g/dL (3.4-5.0) Albumin/Globulin Ratio 0.9 (1.0-1.7) Test 09/09/18 07:32 09/09/18 11:11 Glucose (Fingerstick) 251 mg/dL (70-99) 261 mg/dL (70-99) Microbiology 09/07/18 Urine Culture - Preliminary, Resulted 09/07/18 Urine Culture Result 1 (JOSE) - Preliminary, Resulted Medications Current Medications Ondansetron HCl (Zofran) 4 mg PRN Q8HRS PRN IV NAUSEA/VOMITING; Start 09/04/18 at 12:15; Stop 09/05/18 at 12:14; Status DC Fentanyl Citrate (Fentanyl 2ml Vial) 50 mcg PRN Q1HR PRN IV PAIN; Start 09/04/18 at 12:15; Stop 09/05/18 at 12:14; Status DC Rifaximin (Xifaxan) 550 mg Q12HR PO Last administered on 09/09/18at 10:10; Start 09/04/18 at 14:30 Lactulose (Lactulose) 20 gm PRN TID PRN PO CONSTIPATION; Start 09/04/18 at 13:45; Stop 09/08/18 at 11:49; Status DC Pantoprazole Sodium (Protonix) 40 mg DAILYAC PO Last administered on 09/09/18at 06:17; Start 09/04/18 at 14:00 Diphenhydramine HCl (Benadryl) 25 mg PRN Q6HRS PRN PO ITCHING Last administered on 09/05/18at 00:04; Start 09/04/18 at 14:15 Lidocaine/Sodium Bicarbonate (Buffered Lidocaine 1%) 3 ml STK-MED ONCE .ROUTE ; Start 09/04/18 at 14:34; Stop 09/04/18 at 14:35; Status DC Lidocaine/Sodium Bicarbonate (Buffered Lidocaine 1%) 9 ml 1X ONCE INJ Last administered on 09/04/18at 14:57; Start 09/04/18 at 14:45; Stop 09/04/18 at 14:46; Status DC Albumin Human 100 ml @ 100 mls/hr 1X ONCE IV Last administered on 09/04/18at 15:30; Start 09/04/18 at 15:30; Stop 09/04/18 at 16:29; Status DC Albumin Human 100 ml @ 100 mls/hr 1X ONCE IV Last administered on 09/04/18at 15:30; Start 09/04/18 at 15:30; Stop 09/04/18 at 16:29; Status DC Albumin Human 100 ml @ 100 mls/hr 1X ONCE IV Last administered on 09/04/18at 15:44; Start 09/04/18 at 16:00; Stop 09/04/18 at 16:59; Status DC Diphenhydramine HCl (Benadryl) 25 mg Q6HRS PO ; Start 09/04/18 at 18:00; Status UNV Insulin Glargine (Lantus) 10 units HS SQ Last administered on 09/05/18at 22:09; Start 09/04/18 at 21:00; Stop 09/06/18 at 12:44; Status DC Lactulose (Lactulose) 20 gm TID PO ; Start 09/04/18 at 21:00; Stop 09/08/18 at 11:49; Status DC Calcium Acetate (Phoslo) 667 mg TIDWMEALS PO Last administered on 09/09/18at 10:09; Start 09/04/18 at 18:00 Insulin Human Lispro (HumaLOG) 0-5 UNITS TIDWMEALS SQ Last administered on 09/08/18at 17:28; Start 09/05/18 at 08:00 Dextrose (Dextrose 50%-Water Syringe) 12.5 gm PRN Q15MIN PRN IV SEE COMMENTS; Start 09/04/18 at 17:45 Insulin Human Lispro (HumaLOG) 6 units 1X ONCE SQ Last administered on 09/04/18at 18:11; Start 09/04/18 at 18:00; Stop 09/04/18 at 18:01; Status DC Cyclobenzaprine HCl (Flexeril) 10 mg PRN Q6HRS PRN PO MUSCLE SPASMS Last administered on 09/05/18at 05:56; Start 09/04/18 at 20:00 Acetaminophen/ Hydrocodone Bitart (Lortab 5/325) 1 tab PRN Q6HRS PRN PO PAIN Last administered on 09/04/18at 22:42; Start 09/04/18 at 20:45 Sodium Chloride 1,000 ml @ 1,000 mls/hr Q1H PRN IV hypotension; Start 09/05/18 at 09:30; Stop 09/05/18 at 19:00; Status DC Diphenhydramine HCl (Benadryl) 25 mg 1X PRN PRN IV ITCHING; Start 09/05/18 at 09:15; Stop 09/05/18 at 19:00; Status DC Diphenhydramine HCl (Benadryl) 25 mg 1X PRN PRN IV ITCHING; Start 09/05/18 at 09:15; Stop 09/05/18 at 19:00; Status DC Sodium Chloride 1,000 ml @ 400 mls/hr Q2H30M PRN IV PATENCY; Start 09/05/18 at 09:00; Stop 09/05/18 at 19:00; Status DC Info (PHARMACY MONITORING -- do not chart) 1 each PRN DAILY PRN MC SEE COMMENTS; Start 09/05/18 at 09:15; Stop 09/09/18 at 12:33; Status DC Albumin Human 200 ml @ 200 mls/hr 1X STAT IV Last administered on 09/05/18at 11:28; Start 09/05/18 at 11:17; Stop 09/05/18 at 12:16; Status DC Non-Formulary Medication (Midodrine Hcl ) 5 mg TID PO ; Start 09/06/18 at 14:00; Status UNV Midodrine (Proamatine) 5 mg [id number] PO Last administered on 09/06/18at 11:45; Start 09/06/18 at 13:00; Stop 09/06/18 at 13:00; Status DC Nystatin (Mycostatin) 1 kiana BID TP Last administered on 09/09/18at 10:30; Start 09/06/18 at 13:00 Clotrimazole (Mycelex) 10 mg 5XDAY MM Last administered on 09/08/18at 05:16; St art 09/06/18 at 14:00; Stop 09/08/18 at 14:19; Status DC Lactobacillus Rhamnosus (Culturelle) 1 cap BID PO Last administered on 09/09/18at 10:10; Start 09/06/18 at 13:00 Midodrine (Proamatine) 5 mg 1X ONCE PO Last administered on 09/06/18at 12:55; Start 09/06/18 at 12:45; Stop 09/06/18 at 12:46; Status DC Insulin Glargine (Lantus) 12 units HS SQ Last administered on 09/08/18at 23:05; Start 09/06/18 at 21:00 Midodrine (Proamatine) 10 mg [id number] PO Last administered on 09/09/18at 06:17; Start 09/06/18 at 18:00 Phenyleph/Shark Oil/Min Oil/Petrol (Preparation H) 1 kiana PRN DAILY PRN RC RECTAL PAIN Last administered on 09/07/18at 20:29; Start 09/06/18 at 12:45 Lactulose (Lactulose) 20 gm PRN TID PRN PO constipation, HE; Start 09/08/18 at 12:00 Sodium Chloride 1,000 ml @ 1,000 mls/hr Q1H PRN IV hypotension; Start 09/08/18 at 20:03; Stop 09/09/18 at 02:02; Status DC Albumin Human 200 ml @ 200 mls/hr 1X PRN PRN IV Hypotension; Start 09/08/18 at 20:15; Stop 09/09/18 at 02:14; Status DC Sodium Chloride 1,000 ml @ 400 mls/hr Q2H30M PRN IV PATENCY; Start 09/08/18 at 20:03; Stop 09/09/18 at 08:02; Status DC Info (PHARMACY MONITORING -- do not chart) 1 each PRN DAILY PRN MC SEE COMMENTS; Start 09/08/18 at 20:15; Status UNV Info (PHARMACY MONITORING -- do not chart) 1 each PRN DAILY PRN MC SEE COMMENTS; Start 09/08/18 at 20:15 Alteplase, Recombinant (Cathflo For Central Catheter Clearance) 2 mg 1X ONCE INT CAT ; Start 09/08/18 at 22:30; Stop 09/08/18 at 22:31; Status DC Gentamicin Sulfate 145 mg/ Sodium Chloride 103.625 ml @ 103.625 mls/hr 1X ONCE IV Last administered on 09/09/18at 10:38; Start 09/09/18 at 11:00; Stop 09/09/18 at 11:59; Status DC Active Scripts Active Reported Benadryl (Diphenhydramine Hcl) 25 Mg Capsule 25 Mg PO Q6HRS Calcium Acetate 667 Mg Tablet 667 Mg PO TIDWMEALS Dialyvite Tablet (Folic Acid/Vitamin B Comp W-C) 1 Each Tablet 1 Each PO DAILY Midodrine Hcl 5 Mg Tablet 5 Mg PO TID Cyclobenzaprine Hcl 5 Mg Tablet 1 Tab PO TID Omeprazole 40 Mg Capsule.dr 1 Cap PO DAILY Xifaxan (Rifaximin) 550 Mg Tablet 1 Tab PO BID Fusion Plus Capsule (Iron,Fum&Ps/Fa/Vit B&C#18/L.ca) 1 Each Capsule 1 Each PO Albuterol Sulfate Conc Neb Soln (Albuterol Sulfate) 2.5 Mg/0.5 Ml Vial.neb 2.5 Mg NEB Q6HRS PRN Lactulose 20 Gm/30 Ml Solution 20 Gm PO TID Lantus Solostar (Insulin Glargine,Hum.rec.anlog) 100 Unit/1 Ml Insuln.pen 0 SQ HS SSI Calcium + Vitamin D Tablet (Calcium Carbonate/Vitamin D3) 1 Each Tablet 1 Each PO Albuterol Sulfate Hfa Inhaler (Albuterol Sulfate) 8.5 Gm Hfa.aer.ad 8.5 Gm IH Novolog Flexpen (Insulin Aspart) 100 Unit/1 Ml Insuln.pen 0 SQ TIDAC ssi Synthroid (Levothyroxine Sodium) 25 Mcg Tablet 300 Mcg PO DAILY Flovent 110MCG Hfa (Fluticasone Propionate) 12 Gm Aer.w.adap 12 Gm IH Vitals/I & O Vital Sign - Last 24 Hours 09/08/18 09/08/18 09/08/18 09/08/18 15:00 17:24 19:00 20:00 Temp 97.9 98.1 97.9 98.1 Pulse 94 94 92 Resp 17 18 B/P (MAP) 104/36 (58) 104/36 89/29 (49) Pulse Ox 98 97 O2 Delivery Room Air Room Air Room Air 09/08/18 09/09/18 09/09/18 09/09/18 23:00 03:00 06:17 07:00 Temp 98.2 98.3 98.4 98.2 98.3 98.4 Pulse 101 62 62 95 Resp 18 18 18 B/P (MAP) 84/33 (50) 80/25 (43) 80/25 86/29 (48) Pulse Ox 96 100 92 O2 Delivery Room Air Room Air Room Air Intake and Output 09/08/18 09/08/18 09/09/18 15:00 23:00 07:00 Intake Total 270 ml Output Total 0 ml Balance 270 ml 0 ml TEDDY PERALES MD September 09, 2018 13:15
--- NOTE | 2018-09-09 14:16 | NUR ---
SW following for discharge planning. Discussed with RN, pt was not able to have dialysis yesterday due to cath being blocked. SW met with pt to discuss discharge planning, pt does not want to go to a facility, would like to go home with [facility] for PT/OT/RN. SW contacted [facility] to ensure they take pt's insurance. SW will continue to follow. RN notified.
[2018-09-09 15:00] VITALS: BP 106/80
--- NOTE | 2018-09-09 15:38 | NUR ---
Wound Care: Consult to eval and treat for wound to coccyx on admission. Pt daughter at bedside, pt cooperative. R heel red but blanchable, soft. Pt will not keep pillow under her legs for offloading. Small open area to midline coccyx, just right of center (see detailed assessment), pt incontinent of bowel. Cleaned wound and changed brief, applied barrier cream and provided education to pt regarding wound healing and prevention. intact blackheads to RLQ of abdomen. No other open areas noted on head to toe assessment. Pt on P500 mattress, positioned on L side, HOB raised with pillow under abdomen per pt preference.
[2018-09-09 19:30] VITALS: BP 83/27
--- NOTE | 2018-09-09 20:52 | PDOC ---
SUBJECTIVE ROS Stable OBJECTIVE Vital Signs Vital Signs Date Time Temp Pulse Resp B/P (MAP) Pulse Ox O2 Delivery O2 Flow Rate FiO2 09/09/18 19:30 98.7 97 18 83/27 (45) 95 Room Air 98.7 I & 0 Intake and Output 09/09/18 07:00 Intake Total 270 ml Output Total 0 ml Balance 270 ml Intake Oral 270 ml Output Urine Total 0 ml # Voids 2 # Bowel Movements 4 PHYSICAL EXAM Physical Exam GEN: NAD HEEN: OM moist NECK: Supple CVS: RRR RESP: CTA ,no Acc. Muscle Use GI: Distended, Ascites++ : [No CVA tenderness, [No Suprapubic Tenderness, No Ashley NEURO- AxO x3, Grossly normal SKIN NO rash EXT No edema ESRD- On HD MWF at [facility] Dr. Tracy No indication for HD today Cirrhosis / DIAZ Recurrent ascites requiring frequent paracentesis (last 12L on 09/04) GI managing Pt and daughter reports getting eval for liver tx at [facility] Lt Knee Effusion s/p fall Ortho recommended fu as OP Chronic anemia- Varices Hypotension- Chronic sec to Cirrhosis DIAGNOSIS/ASSESSMENT Assessment & Plan ESRD/ARF: Current fluid and E-lyte status does not necessitate emergent need for dialysis. Will re-evaluate for dialysis in the am and continue on [] schedule. ANEMIA; [] Aranap as ordered, [] Transfuse [] with next HD as needed HTN: Current BP meds as reviewed. See orders for changes. BONE & MINERAL: [] Discussed Plan of Care with family [] at bedside [] over the phone COMMENT/RELEVANT DATA Meds Current Medications Medications (Trade) Dose Ordered Sig/Emanuel Start Time Stop Time Status Last Admin Dose Admin Acetaminophen/ Hydrocodone Bitart (Lortab 5/325) 1 tab PRN Q6HRS PRN 09/04/18 20:45 09/04/18 22:42 1 TAB Albumin Human 200 ml @ 200 mls/hr 1X PRN PRN 09/08/18 20:15 09/09/18 02:14 DC Alteplase, Recombinant (Cathflo For Central Catheter Clearance) 2 mg 1X ONCE 09/08/18 22:30 09/08/18 22:31 DC Calcium Acetate (Phoslo) 667 mg TIDWMEALS 09/04/18 18:00 09/09/18 18:13 667 MG Clotrimazole (Mycelex) 10 mg 5XDAY 09/06/18 14:00 09/08/18 14:19 DC 09/08/18 05:16 10 MG Cyclobenzaprine HCl (Flexeril) 10 mg PRN Q6HRS PRN 09/04/18 20:00 09/05/18 05:56 10 MG Dextrose (Dextrose 50%-Water Syringe) 12.5 gm PRN Q15MIN PRN 09/04/18 17:45 Diphenhydramine HCl (Benadryl) 25 mg 1X PRN PRN 09/05/18 09:15 09/05/18 19:00 DC Fentanyl Citrate (Fentanyl 2ml Vial) 50 mcg PRN Q1HR PRN 09/04/18 12:15 09/05/18 12:14 DC Gentamicin Sulfate 145 mg/ Sodium Chloride 103.625 ml @ 103.625 mls/hr 1X ONCE 09/09/18 11:00 09/09/18 11:59 DC 09/09/18 10:38 103.625 MLS/HR Info (PHARMACY MONITORING -- do not chart) 1 each PRN DAILY PRN 09/08/18 20:15 Insulin Glargine (Lantus) 12 units HS 09/06/18 21:00 09/08/18 23:05 12 UNITS Insulin Human Lispro (HumaLOG) 6 units 1X ONCE 09/04/18 18:00 09/04/18 18:01 DC 09/04/18 18:11 6 UNITS Lactobacillus Rhamnosus (Culturelle) 1 cap BID 09/06/18 13:00 09/09/18 10:10 1 CAP Lactulose (Lactulose) 20 gm PRN TID PRN 09/08/18 12:00 Lidocaine/Sodium Bicarbonate (Buffered Lidocaine 1%) 9 ml 1X ONCE 09/04/18 14:45 09/04/18 14:46 DC 09/04/18 14:57 8 ML Midodrine (Proamatine) 10 mg [id number] 09/06/18 18:00 09/09/18 18:15 10 MG Non-Formulary Medication (Midodrine Hcl ) 5 mg TID 09/06/18 14:00 UNV Nystatin (Mycostatin) 1 kiana BID 09/06/18 13:00 09/09/18 10:30 1 KIANA Ondansetron HCl (Zofran) 4 mg PRN Q8HRS PRN 09/04/18 12:15 09/05/18 12:14 DC Pantoprazole Sodium (Protonix) 40 mg DAILYAC 09/04/18 14:00 09/09/18 06:17 40 MG Phenyleph/Shark Oil/Min Oil/Petrol (Preparation H) 1 kiana PRN DAILY PRN 09/06/18 12:45 09/07/18 20:29 1 KIANA Rifaximin (Xifaxan) 550 mg Q12HR 09/04/18 14:30 09/09/18 10:10 550 MG Sodium Chloride 1,000 ml @ 400 mls/hr Q2H30M PRN 09/08/18 20:03 09/09/18 08:02 DC Lab Laboratory Tests Test 09/08/18 22:39 09/09/18 05:52 09/09/18 07:32 09/09/18 11:11 Glucose (Fingerstick) 234 mg/dL (70-99) 251 mg/dL (70-99) 261 mg/dL (70-99) Sodium Level 135 mmol/L (136-145) Potassium Level 3.5 mmol/L (3.5-5.1) Chloride Level 97 mmol/L (98-107) Carbon Dioxide Level 24 mmol/L (21-32) Anion Gap 14 (6-14) Blood Urea Nitrogen 38 mg/dL (7-20) Creatinine 5.4 mg/dL (0.6-1.0) Estimated GFR (Cockcroft-Gault) 8.1 BUN/Creatinine Ratio 7 (6-20) Glucose Level 277 mg/dL (70-99) Calcium Level 7.9 mg/dL (8.5-10.1) Total Bilirubin 2.1 mg/dL (0.2-1.0) Aspartate Amino Transf (AST/SGOT) 25 U/L (15-37) Alanine Aminotransferase (ALT/SGPT) 16 U/L (14-59) Alkaline Phosphatase 172 U/L (46-116) Total Protein 5.4 g/dL (6.4-8.2) Albumin 2.5 g/dL (3.4-5.0) Albumin/Globulin Ratio 0.9 (1.0-1.7) Test 09/09/18 16:48 Glucose (Fingerstick) 350 mg/dL (70-99) Results All relevant outside records, renal labs, imaging studies, telemetry/EKG's were reviewed. DARLING SHORT MD September 09, 2018 20:52
[2018-09-09] MEDS: INSULIN GLARGINE 300 UNITS/3 ML INSULN.PEN. SQ SCH (21:23)
[2018-09-09 23:20] VITALS: BP 88/34
--- NOTE | 2018-09-09 23:50 | NUR ---
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 Tried to educate patient and have her put the immobilizer back on but patient become very agitated and rude towards this RN. Began using profanity and telling me to leave her room and leave her alone and that she was not going to put the device back on. Will continue to monitor the patient.
[2018-09-10 03:43] VITALS: BP 86/29
--- NOTE | 2018-09-10 05:38 | PDOC ---
Infectious Disease Note Subjective Subjective feeling better ROS ROS no n/v/d/fever Vital Sign Vital Signs Vital Signs Date Time Temp Pulse Resp B/P (MAP) Pulse Ox O2 Delivery O2 Flow Rate FiO2 09/10/18 03:43 98.1 92 18 86/29 (48) 94 Room Air 98.1 Physical Exam PHYSICAL EXAM GENERAL: Propped up in bed, alert, NAD HENT: Normal conjunctivae. Oral cavity, pharynx clear. NECK: Supple, no JVD. LUNGS: Decreased in the bases, no wheeze. HEART: S1, S2. ABDOMEN: Obese, distended, soft, NT : Ashley, no urine output EXTREMITIES: Without clubbing, cyanosis. LLE bandaged, knee immobilizer off SKIN: Warm to touch without signs of rash. NEUROLOGIC: Nonfocal, moves all extremities. Port-A-Cath and HDC without complications. Labs Lab Laboratory Tests Test 09/09/18 05:52 09/09/18 07:32 09/09/18 11:11 09/09/18 16:48 Sodium Level 135 mmol/L (136-145) Potassium Level 3.5 mmol/L (3.5-5.1) Chloride Level 97 mmol/L (98-107) Carbon Dioxide Level 24 mmol/L (21-32) Anion Gap 14 (6-14) Blood Urea Nitrogen 38 mg/dL (7-20) Creatinine 5.4 mg/dL (0.6-1.0) Estimated GFR (Cockcroft-Gault) 8.1 BUN/Creatinine Ratio 7 (6-20) Glucose Level 277 mg/dL (70-99) Calcium Level 7.9 mg/dL (8.5-10.1) Total Bilirubin 2.1 mg/dL (0.2-1.0) Aspartate Amino Transf (AST/SGOT) 25 U/L (15-37) Alanine Aminotransferase (ALT/SGPT) 16 U/L (14-59) Alkaline Phosphatase 172 U/L (46-116) Total Protein 5.4 g/dL (6.4-8.2) Albumin 2.5 g/dL (3.4-5.0) Albumin/Globulin Ratio 0.9 (1.0-1.7) Glucose (Fingerstick) 251 mg/dL (70-99) 261 mg/dL (70-99) 350 mg/dL (70-99) Test 09/09/18 21:10 Glucose (Fingerstick) 341 mg/dL (70-99) Micro Objective Assessment 1. Lower extremity CT shows large joint fluid and there is some indentation identified in the lateral tibial plateau with lucency, large amount of edema in the soft tissues, degenerative changes throughout the knee, tiny ossific density. Other findings are reviewed. 2. Status post fall. 3. Left knee contusion. 4. Chronic kidney disease, on hemodialysis. 5. History of urinary tract infection, currently complains of some discomfort. 6. ANTIBIOTIC ALLERGY, has tolerated Zosyn and levofloxacin. 7. Ascites, status post paracentesis on the . 12L removed Abnormal u/a with G neg verito culture Plan Plan of Care gent x 1 ok to d/c to rehab LIMA PANCHAL MD September 10, 2018 05:38
[2018-09-10 05:47] LABS: ALBUMIN 2.4 g/dL (3.4-5.0); ALBUMIN/GLOBULIN RATIO 0.7 (1.0-1.7); CALCIUM 8.2 mg/dL (8.5-10.1); CREATININE 6.6 mg/dL (0.6-1.0); GFR 6.4; POTASSIUM 3.8 mmol/L (3.5-5.1); TOTAL BILIRUBIN 1.7 mg/dL (0.2-1.0); TOTAL PROTEIN 5.7 g/dL (6.4-8.2)
[2018-09-10] MEDS: MIDODRINE 5 MG TABLET PO SCH ×3 (05:47→17:31)
[2018-09-10] MEDS: PANTOPRAZOLE 40 MG TABLET.DR. PO SCH (05:47)
[2018-09-10 07:00] VITALS: BP 85/31
[2018-09-10] MEDS ORDERED: MIDO5TAB PO (09:51)
[2018-09-10] MEDS: CALCIUM ACETATE 667 MG CAPSULE PO SCH ×3 (10:25→17:32)
[2018-09-10] MEDS: rifAXIMin 550 MG TABLET PO SCH ×2 (10:26→20:52)
[2018-09-10] MEDS: LACTOBACILLUS RHAMNOSUS GG 1 CAPSULE. PO SCH ×2 (10:26→20:52)
--- NOTE | 2018-09-10 10:26 | PDOC ---
SUBJECTIVE ROS Stable , seen on HD OBJECTIVE Vital Signs Vital Signs Date Time Temp Pulse Resp B/P (MAP) Pulse Ox O2 Delivery O2 Flow Rate FiO2 09/10/18 07:00 97.6 68 18 85/31 (49) 94 Room Air 97.6 I & 0 Intake and Output 09/10/18 07:00 Intake Total 360 ml Output Total 3 ml Balance 357 ml Intake Oral 360 ml Stool Total 3 ml PHYSICAL EXAM Physical Exam GEN: NAD HEEN: OM moist NECK: Supple CVS: RRR RESP: CTA ,no Acc. Muscle Use GI: Distended, Ascites++ : [No CVA tenderness, [No Suprapubic Tenderness, No Ashley NEURO- AxO x3, Grossly normal SKIN NO rash EXT No edema DIAGNOSIS/ASSESSMENT Assessment & Plan ESRD- On HD MWF at - Dr. 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 Chronic Hypotension Cirrhosis / DIAZ Recurrent ascites requiring frequent paracentesis (last 12L on 09/04) GI managing Pt and daughter reports getting eval for liver tx at [facility] Lt Knee Effusion s/p fall Ortho recommended fu as OP Chronic anemia- Varices Hypotension- Chronic sec to Cirrhosis COMMENT/RELEVANT DATA Meds Current Medications Medications (Trade) Dose Ordered Sig/Emanuel Start Time Stop Time Status Last Admin Dose Admin Acetaminophen/ Hydrocodone Bitart (Lortab 5/325) 1 tab PRN Q6HRS PRN 09/04/18 20:45 09/04/18 22:42 1 TAB Albumin Human 200 ml @ 200 mls/hr 1X PRN PRN 09/08/18 20:15 09/09/18 02:14 DC Alteplase, Recombinant (Cathflo For Central Catheter Clearance) 2 mg 1X ONCE 09/08/18 22:30 09/08/18 22:31 DC Calcium Acetate (Phoslo) 667 mg TIDWMEALS 09/04/18 18:00 09/09/18 18:13 667 MG Clotrimazole (Mycelex) 10 mg 5XDAY 09/06/18 14:00 09/08/18 14:19 DC 09/08/18 05:16 10 MG Cyclobenzaprine HCl (Flexeril) 10 mg PRN Q6HRS PRN 09/04/18 20:00 09/05/18 05:56 10 MG Dextrose (Dextrose 50%-Water Syringe) 12.5 gm PRN Q15MIN PRN 09/04/18 17:45 Diphenhydramine HCl (Benadryl) 25 mg 1X PRN PRN 09/05/18 09:15 09/05/18 19:00 DC Fentanyl Citrate (Fentanyl 2ml Vial) 50 mcg PRN Q1HR PRN 09/04/18 12:15 09/05/18 12:14 DC Gentamicin Sulfate 145 mg/ Sodium Chloride 103.625 ml @ 103.625 mls/hr 1X ONCE 09/09/18 11:00 09/09/18 11:59 DC 09/09/18 10:38 103.625 MLS/HR Info (PHARMACY MONITORING -- do not chart) 1 each PRN DAILY PRN 09/08/18 20:15 Insulin Glargine (Lantus) 12 units HS 09/06/18 21:00 09/09/18 21:23 12 UNITS Insulin Human Lispro (HumaLOG) 6 units 1X ONCE 09/04/18 18:00 09/04/18 18:01 DC 09/04/18 18:11 6 UNITS Lactobacillus Rhamnosus (Culturelle) 1 cap BID 09/06/18 13:00 09/09/18 20:52 1 CAP Lactulose (Lactulose) 20 gm PRN TID PRN 09/08/18 12:00 Lidocaine/Sodium Bicarbonate (Buffered Lidocaine 1%) 9 ml 1X ONCE 09/04/18 14:45 09/04/18 14:46 DC 09/04/18 14:57 8 ML Midodrine (Proamatine) 10 mg [id number] 09/06/18 18:00 09/10/18 05:47 10 MG Non-Formulary Medication (Midodrine Hcl ) 5 mg TID 09/06/18 14:00 UNV Nystatin (Mycostatin) 1 kiana BID 09/06/18 13:00 09/09/18 20:52 1 KIANA Ondansetron HCl (Zofran) 4 mg PRN Q8HRS PRN 09/04/18 12:15 09/05/18 12:14 DC Pantoprazole Sodium (Protonix) 40 mg DAILYAC 09/04/18 14:00 09/10/18 05:47 40 MG Phenyleph/Shark Oil/Min Oil/Petrol (Preparation H) 1 kiana PRN DAILY PRN 5/18/19 12:45 09/07/18 20:29 1 KIANA Rifaximin (Xifaxan) 550 mg Q12HR 09/04/18 14:30 09/09/18 20:52 550 MG Sodium Chloride 1,000 ml @ 400 mls/hr Q2H30M PRN 09/08/18 20:03 09/09/18 08:02 DC Lab Laboratory Tests Test 09/09/18 11:11 09/09/18 16:48 09/09/18 21:10 09/10/18 05:00 Glucose (Fingerstick) 261 mg/dL (70-99) 350 mg/dL (70-99) 341 mg/dL (70-99) Sodium Level 132 mmol/L (136-145) Potassium Level 3.8 mmol/L (3.5-5.1) Chloride Level 96 mmol/L (98-107) Carbon Dioxide Level 21 mmol/L (21-32) Anion Gap 15 (6-14) Blood Urea Nitrogen 47 mg/dL (7-20) Creatinine 6.6 mg/dL (0.6-1.0) Estimated GFR (Cockcroft-Gault) 6.4 BUN/Creatinine Ratio 7 (6-20) Glucose Level 338 mg/dL (70-99) Calcium Level 8.2 mg/dL (8.5-10.1) Total Bilirubin 1.7 mg/dL (0.2-1.0) Aspartate Amino Transf (AST/SGOT) 29 U/L (15-37) Alanine Aminotransferase (ALT/SGPT) 15 U/L (14-59) Alkaline Phosphatase 194 U/L (46-116) Total Protein 5.7 g/dL (6.4-8.2) Albumin 2.4 g/dL (3.4-5.0) Albumin/Globulin Ratio 0.7 (1.0-1.7) Test 09/10/18 07:54 Glucose (Fingerstick) 307 mg/dL (70-99) Results All relevant outside records, renal labs, imaging studies, telemetry/EKG's were reviewed. DARLING SHORT MD September 10, 2018 10:26
[2018-09-10] MEDS: INSULIN LISPRO 300 UNITS/3 ML INSULN.PEN. SQ SCH ×3 (10:40→17:57)
[2018-09-10] MEDS: NYSTATIN 100,000 UNIT/GM TOPICAL CREAM 15GM TUBE. TP SCH ×2 (10:44→20:53)
--- NOTE | 2018-09-10 10:45 | NUR ---
SW following for discharge planning. Discussed with RN, pt wanting to discharge home with [facility] and her family to come help stay with her for some time. ALEXANDER phoned and faxed referral to [facility] (ph: [phone], fax: [phone]). ALEXANDER will continue to follow.
[2018-09-10 11:00] VITALS: BP 86/23
--- NOTE | 2018-09-10 11:34 | PDOC3 ---
Discharge Summary Visit Information Date of Admission: September 04, 2018 Date of Discharge: September 10, 2018 Final Diagnosis Problems Medical Problems: (1) Fall Status: Acute (2) Hypotension Status: Acute (3) Knee effusion, left Status: Acute Brief Hospital Course Allergies Allergies Coded Allergies Type Severity Reaction Last Updated Verified Sulfa (Sulfonamide Antibiotics) Allergy Severe Swelling 04/24/18 Yes cephalexin Allergy Severe Anaphylaxis 05/22/18 Yes doxycycline Allergy Intermediate 04/24/18 Yes gabapentin Allergy Intermediate Anxiety 06/04/18 Yes insulin detemir Allergy Intermediate Rash 04/24/18 Yes morphine Allergy Intermediate rash 04/24/18 Yes niacin Allergy Intermediate Rash 04/24/18 Yes oxycodone Allergy Intermediate rash 04/24/18 Yes povidone-iodine Allergy Intermediate It 04/24/18 Yes rifaximin Allergy Intermediate Itching 09/04/18 Yes tramadol Allergy Intermediate Rash 04/24/18 Yes I S O L A T I O N *CONTACT* Allergy Unknown 04/24/18 Yes codeine Adverse Reaction Intermediate Nausea and Vomiting 04/24/18 Yes erythromycin base Adverse Reaction Intermediate Diarrhea 04/24/18 Yes Vital Signs Vital Signs Date Time Temp Pulse Resp B/P (MAP) Pulse Ox O2 Delivery O2 Flow Rate FiO2 09/10/18 07:00 97.6 68 18 85/31 (49) 94 Room Air 97.6 Lab Results Laboratory Tests Test 09/08/18 11:50 09/08/18 14:51 09/08/18 16:58 09/08/18 22:39 Glucose (Fingerstick) 285 mg/dL (70-99) 233 mg/dL (70-99) 259 mg/dL (70-99) 234 mg/dL (70-99) Test 09/09/18 05:52 09/09/18 07:32 09/09/18 11:11 09/09/18 16:48 Sodium Level 135 mmol/L (136-145) Potassium Level 3.5 mmol/L (3.5-5.1) Chloride Level 97 mmol/L (98-107) Carbon Dioxide Level 24 mmol/L (21-32) Anion Gap 14 (6-14) Blood Urea Nitrogen 38 mg/dL (7-20) Creatinine 5.4 mg/dL (0.6-1.0) Estimated GFR (Cockcroft-Gault) 8.1 BUN/Creatinine Ratio 7 (6-20) Glucose Level 277 mg/dL (70-99) Calcium Level 7.9 mg/dL (8.5-10.1) Total Bilirubin 2.1 mg/dL (0.2-1.0) Aspartate Amino Transf (AST/SGOT) 25 U/L (15-37) Alanine Aminotransferase (ALT/SGPT) 16 U/L (14-59) Alkaline Phosphatase 172 U/L (46-116) Total Protein 5.4 g/dL (6.4-8.2) Albumin 2.5 g/dL (3.4-5.0) Albumin/Globulin Ratio 0.9 (1.0-1.7) Glucose (Fingerstick) 251 mg/dL (70-99) 261 mg/dL (70-99) 350 mg/dL (70-99) Test 09/09/18 21:10 09/10/18 05:00 09/10/18 07:54 Glucose (Fingerstick) 341 mg/dL (70-99) 307 mg/dL (70-99) Sodium Level 132 mmol/L (136-145) Potassium Level 3.8 mmol/L (3.5-5.1) Chloride Level 96 mmol/L (98-107) Carbon Dioxide Level 21 mmol/L (21-32) Anion Gap 15 (6-14) Blood Urea Nitrogen 47 mg/dL (7-20) Creatinine 6.6 mg/dL (0.6-1.0) Estimated GFR (Cockcroft-Gault) 6.4 BUN/Creatinine Ratio 7 (6-20) Glucose Level 338 mg/dL (70-99) Calcium Level 8.2 mg/dL (8.5-10.1) Total Bilirubin 1.7 mg/dL (0.2-1.0) Aspartate Amino Transf (AST/SGOT) 29 U/L (15-37) Alanine Aminotransferase (ALT/SGPT) 15 U/L (14-59) Alkaline Phosphatase 194 U/L (46-116) Total Protein 5.7 g/dL (6.4-8.2) Albumin 2.4 g/dL (3.4-5.0) Albumin/Globulin Ratio 0.7 (1.0-1.7) Laboratory Tests Test 09/09/18 16:48 09/09/18 21:10 09/10/18 05:00 09/10/18 07:54 Glucose (Fingerstick) 350 mg/dL (70-99) 341 mg/dL (70-99) 307 mg/dL (70-99) Sodium Level 132 mmol/L (136-145) Potassium Level 3.8 mmol/L (3.5-5.1) Chloride Level 96 mmol/L (98-107) Carbon Dioxide Level 21 mmol/L (21-32) Anion Gap 15 (6-14) Blood Urea Nitrogen 47 mg/dL (7-20) Creatinine 6.6 mg/dL (0.6-1.0) Estimated GFR (Cockcroft-Gault) 6.4 BUN/Creatinine Ratio 7 (6-20) Glucose Level 338 mg/dL (70-99) Calcium Level 8.2 mg/dL (8.5-10.1) Total Bilirubin 1.7 mg/dL (0.2-1.0) Aspartate Amino Transf (AST/SGOT) 29 U/L (15-37) Alanine Aminotransferase (ALT/SGPT) 15 U/L (14-59) Alkaline Phosphatase 194 U/L (46-116) Total Protein 5.7 g/dL (6.4-8.2) Albumin 2.4 g/dL (3.4-5.0) Albumin/Globulin Ratio 0.7 (1.0-1.7) Brief Hospital Course 62-year-old female PMHx H/o ESLD (DIAZ), recurrent ascites/frequent paracentesis, PVT, hepatic encephalopathy, esophageal varices, ESRD on HD (hepatorenal syndrome), chronic anemia (iron deficient in 04/2018) requiring transfusions, thrombocytopenia admitted through ED after she fell, hurting her left knee and missing dialysis. She was supposed to have paracentesis yesterday as well. To ER instead w/ daughter because couldn't manage at home w/ significant pain and limited mobility. Has been having diarrhea - started on pancreatic enzymes last admission, not taking at home, and she is not taking lactulose or Xifaxin as prescribed either Has desired further eval for liver transplant but declined by [facility] due to past behavior, also unable to transfer to [facility] in the past due to insurance. patient admitted to the hospitalist service for further treatment. seen by ortho and Left knee injury, probable medial collateral ligament sprain based on mechanism and exam findings which can be treated in a hinged knee brace. There is likely an associated nondisplaced lateral tibia fracture, which also can be treated in a hinged knee brace. No surgery needed and no need for an MRI. recommend Bracing, weightbearing to pain tolerance, and office follow-up. Ice packs to the left knee when in bed. She may remove the brace or immobilizer when in bed. she will follow up in ortho Office on 09/29/2108. she will need to Call for appointment. while hospitalized she was dialyzed. she also has recurrent ascites and s/p para on 09/04. patient had positive UA but urine culture negative. given dose of gent on 09/09. also noted to have Chronic anemia - EGD 04/24/18: grade 1 varices, gastritis. she did have issues with low normal BP and is on midodrine. dose was increased to 10 mg BID at discharge. PT also working with patient and was able to ambulate. she will be discharged home today in stable condition. Discharge Information Condition at Discharge: Stable Follow Up: Weeks (PCP in 2 weeks) Disposition/Orders: D/C to Home Scheduled Calcium Acetate (Calcium Acetate) 667 Mg Tablet, 667 MG PO TIDWMEALS for DIALYSIS PATIENTS, (Reported) Entered as Reported by: VIKAS LEYVA on 07/03/18912 Last Action: Converted on 09/04/181746 by DANA PHAN MD Cyclobenzaprine Hcl (Cyclobenzaprine Hcl) 5 Mg Tablet, 1 TAB PO TID for muscle spasms, #30 (Reported) Entered as Reported by: LORETTA SILVERIO on 06/10/18954 Diphenhydramine Hcl (Benadryl) 25 Mg Capsule, 25 MG PO Q6HRS for itching, (Reported) Entered as Reported by: SUMAYA PAYNE on 08/12/18 014 Last Action: Continued on 09/04/181746 by DANA PHAN MD Folic Acid/Vitamin B Comp W-C (Dialyvite Tablet) 1 Each Tablet, 1 EACH PO DAILY for after dialysis on dialysis day, (Reported) Entered as Reported by: VIKAS LEYVA on 3/14/19 0913 Insulin Aspart (Novolog Flexpen) 100 Unit/1 Ml Insuln.pen, 0 SQ TIDAC for DM, (Reported) ssi Entered as Reported by: ARA WIN on 06/02/13 1013 Insulin Glargine,Hum.rec.anlog (Lantus Solostar) 100 Unit/1 Ml Insuln.pen, 0 SQ HS for DM, (Reported) SSI Entered as Reported by: STEPHANIE CHAPMAN on 06/10/13 1021 Last Action: Continued on 09/04/181746 by DANA PHAN MD Lactulose (Lactulose) 20 Gm/30 Ml Solution, 20 GM PO TID, (Reported) Entered as Reported by: GREY DUBOIS on 08/03/15 07 Last Action: Continued on 09/04/181746 by DANA PHAN MD Levothyroxine Sodium (Synthroid) 25 Mcg Tablet, 300 MCG PO DAILY, (Reported) Entered as Reported by: ARA WIN on 06/02/13 1013 Midodrine Hcl (Midodrine Hcl) 5 Mg Tablet, 5 MG PO TID for bp, (Reported) Entered as Reported by: GREY DUBOIS on 06/25/18 1045 Last Action: Converted on 09/06/18 1037 by GENE ALEXANDRA Midodrine Hcl (Midodrine Hcl) 5 Mg Tablet, 10 MG PO [id number] for hypotension for 14 Days, #84 Prescribed by: TEDDY PERALES MD on 09/10/18 0951 Omeprazole (Omeprazole) 40 Mg Capsule.dr, 1 CAP PO DAILY for gerd, #30 Ref 3 (Reported) Entered as Reported by: Rehana Joshi on 05/01/18 0900 Rifaximin (Xifaxan) 550 Mg Tablet, 1 TAB PO BID, #28 (Reported) Entered as Reported by: LORETTA SILVERIO on 02/07/18 0905 Scheduled PRN Albuterol Sulfate (Albuterol Sulfate Conc Neb Soln) 2.5 Mg/0.5 Ml Vial.neb, 2.5 MG NEB Q6HRS PRN for SHORTNESS OF BREATH, Ref 0 (Reported) Entered as Reported by: GREY DUBOIS on 08/03/15 0729 Miscellaneous Medications Albuterol Sulfate (Albuterol Sulfate Hfa Inhaler) 8.5 Gm Hfa.aer.ad, 8.5 GM IH, (Reported) Entered as Reported by: ARA WIN on 06/02/13 1013 Calcium Carbonate/Vitamin D3 (Calcium + Vitamin D Tablet) 1 Each Tablet, 1 EACH PO, (Reported) Entered as Reported by: ARA WIN on 06/02/13 1013 Fluticasone Propionate (Flovent 110MCG Hfa) 12 Gm Aer.w.adap, 12 GM IH, (Reported) Entered as Reported by: ARA WIN on 06/02/13 1013 Iron,Fum&Ps/Fa/Vit B&C#18/L.ca (Fusion Plus Capsule) 1 Each Capsule, 1 EACH PO, (Reported) Entered as Reported by: LORETTA SILVERIO on 05/09/17 0740 TEDDY PERALES MD September 10, 2018 11:34
[2018-09-10] MEDS ORDERED: IV NORMAL SALINE 1000ML BAG 1,000 ML IV PRN ×2 (12:00)
[2018-09-10] MEDS ORDERED: DIALYSIS PATIENT. MC PRN ×2 (12:15)
--- NOTE | 2018-09-10 13:30 | PDOC ---
Objective: Objective: Reviewed w/ RN - to discharge today. Vital Signs: Vital Signs Date Time Temp Pulse Resp B/P (MAP) Pulse Ox O2 Delivery O2 Flow Rate FiO2 09/10/18 11:00 97.7 92 16 86/23 (44) 92 Room Air 97.7 Labs: Laboratory Tests Test 09/09/18 16:48 09/09/18 21:10 09/10/18 05:00 09/10/18 07:54 Glucose (Fingerstick) 350 mg/dL 341 mg/dL 307 mg/dL Sodium Level 132 mmol/L Potassium Level 3.8 mmol/L Chloride Level 96 mmol/L Carbon Dioxide Level 21 mmol/L Anion Gap 15 Blood Urea Nitrogen 47 mg/dL Creatinine 6.6 mg/dL Estimated GFR (Cockcroft-Gault) 6.4 BUN/Creatinine Ratio 7 Glucose Level 338 mg/dL Calcium Level 8.2 mg/dL Total Bilirubin 1.7 mg/dL Aspartate Amino Transf (AST/SGOT) 29 U/L Alanine Aminotransferase (ALT/SGPT) 15 U/L Alkaline Phosphatase 194 U/L Total Protein 5.7 g/dL Albumin 2.4 g/dL Albumin/Globulin Ratio 0.7 Test 09/10/18 11:44 Glucose (Fingerstick) 346 mg/dL PE: GEN: dialyzing LUNGS: room air ABD: distended/ascites NEURO/PSYCH: asleep, not awakened A/P: ESLD, recurrent ascites, ESRD -- DC per primary, continue Xifaxan/lactulose, paracentesis as needed. JENNIE ABRAMS September 10, 2018 13:30
[2018-09-10 19:00] VITALS: BP_SYST 102; BP_SYST 105; BP_SYST 80; BP_DIAS 30; BP_DIAS 39; BP_DIAS 65
--- NOTE | 2018-09-10 19:49 | NUR ---
Pt was to discharge today, was denied [facility] according to ALEXANDER, [facility] was to meet with pt after dialysis today, pt returned from dialysis at approximately 1700, this nurse called [facility] who stated they would call pt either this evening or in the morning. When pt's son called, he informed this nurse he was not aware pt was to be discharged today and was concerned they would not be able to transfer pt from their vehicle up the many steps that lead into their house. After suggesting they call the [facility] for a non urgent assist upon arriving home, pt's son said he did not want to do that and wanted EMS to take her home. [facility] called back stating they were mistaken in that Anne-Marie Nguyen was not on their list and they had no discharge instructions for Anne-Marie Nguyen, according to Rehana . Pt's daughter stated it would be helpful if pt could stay tonight considering pt needed paracentesis at 0830 here at [facility]. All discharge paperwork had already been completed by this nurse
[2018-09-10] MEDS: ALBUTEROL SULFATE 2.5 MG/3 ML NEBU. NEB PRN (20:16)
[2018-09-10] MEDS: INSULIN GLARGINE 300 UNITS/3 ML INSULN.PEN. SQ SCH (20:57)
[2018-09-10 23:00] VITALS: BP 95/32
[2018-09-11] VITALS (9 sets, daily range): BP systolic 85–105; BP diastolic 18–50
[2018-09-11] MEDS: ALBUTEROL SULFATE 2.5 MG/3 ML NEBU. NEB PRN (01:37)
[2018-09-11] MEDS: PANTOPRAZOLE 40 MG TABLET.DR. PO SCH (06:39)
[2018-09-11] MEDS: MIDODRINE 5 MG TABLET PO SCH ×3 (06:40→16:17)
--- NOTE | 2018-09-11 07:45 | NUR ---
PER EPIC AMBULATORY ANALYSTS, REFUSED BLOOD DRAW
[2018-09-11] MEDS: INSULIN LISPRO 300 UNITS/3 ML INSULN.PEN. SQ SCH ×3 (07:56→16:31)
[2018-09-11] MEDS: CALCIUM ACETATE 667 MG CAPSULE PO SCH ×3 (07:56→16:17)
[2018-09-11] MEDS: rifAXIMin 550 MG TABLET PO SCH (08:59)
[2018-09-11] MEDS: LACTOBACILLUS RHAMNOSUS GG 1 CAPSULE. PO SCH (08:59)
[2018-09-11] MEDS: NYSTATIN 100,000 UNIT/GM TOPICAL CREAM 15GM TUBE. TP SCH (09:02)
--- NOTE | 2018-09-11 09:10 | PDOC ---
Infectious Disease Note Subjective Subjective feeling better ROS ROS no n/v/d/ Vital Sign Vital Signs Vital Signs Date Time Temp Pulse Resp B/P (MAP) Pulse Ox O2 Delivery O2 Flow Rate FiO2 09/11/18 06:40 98 90/33 09/11/18 03:00 97.9 16 94 Room Air 97.9 Physical Exam PHYSICAL EXAM GENERAL: Propped up in bed, alert, NAD HENT: Normal conjunctivae. Oral cavity, pharynx clear. NECK: Supple, no JVD. LUNGS: Decreased in the bases, no wheeze. HEART: S1, S2. ABDOMEN: Obese, distended, soft, NT : Ashley, no urine output EXTREMITIES: Without clubbing, cyanosis. LLE bandaged, knee immobilizer off SKIN: Warm to touch without signs of rash. NEUROLOGIC: Nonfocal, moves all extremities. Port-A-Cath and HDC without complications. Labs Lab Laboratory Tests Test 09/10/18 11:44 09/10/18 15:42 09/10/18 20:54 09/11/18 04:54 Glucose (Fingerstick) 346 mg/dL (70-99) 166 mg/dL (70-99) 275 mg/dL (70-99) 332 mg/dL (70-99) Test 09/11/18 07:31 Glucose (Fingerstick) 315 mg/dL (70-99) Micro Objective Assessment 1. Lower extremity CT shows large joint fluid and there is some indentation identified in the lateral tibial plateau with lucency, large amount of edema in the soft tissues, degenerative changes throughout the knee, tiny ossific density. Other findings are reviewed. 2. Status post fall. 3. Left knee contusion. 4. Chronic kidney disease, on hemodialysis. 5. History of urinary tract infection, currently complains of some discomfort. 6. ANTIBIOTIC ALLERGY, has tolerated Zosyn and levofloxacin. 7. Ascites, status post paracentesis on the . 12L removed Abnormal u/a with G neg verito culture 8. UTI Plan Plan of Care gent x 1 ok to d/c to rehab/home LIMA PANCHAL MD September 11, 2018 09:10
--- NOTE | 2018-09-11 09:31 | SNU/HH DC ---
DISCHARGE WITH HOME HEALTH DISCHARGE INFORMATION: Final Diagnosis: Problems Medical Problems: (1) Fall Status: Acute (2) Hypotension Status: Acute (3) Knee effusion, left Status: Acute Condition on Discharge: Stable CODE STATUS: Code Status: Full HOME HEALTH: Face to Face: I certify this patient is under my care and that I, or a nurse practitioner or physician's visitor service assistant working with me, had a face to face encounter that meets the physician face to face encounter requirements with this patient on []. RN For Eval/Treatment: Yes Physical Therapy For: Evalulation/Treatment Occupational Therapy For: Evaluation/Treatment Pt Meets Homebound Status: Limited distance walking POST DISCHARGE ORDERS: Activity Instructions for Disc: Activity as tolerated Weight Bearing Status after Di: No restrictions Bathing Instructions: Shower-keep dressing dry, No Tub Bath until see DIET AFTER DISCHARGE: Cardiac Wound/Incision Care: Keep wound/cast CDI CHECKS AFTER DISCHARGE: Checks after discharge: Check blood press - daily, Check blood sugar, ac/hs FOLLOW-UP: Follow Up With: primary care physician in 2 weeks TREATMENT/EQUIPMENT ORDERS: Adaptive Equipment Issued: Brace/splint CERTIFICATION STATEMENT: Certification Statement: Certification Statement: Based on the above finding, I certify that this patient is confined to the home and needs intermittent longterm care, physical therapy and/or speech therapy, or continues to need occupational therapy.~ This patient is under my care, and I have initiated the establishment of the plan of care.~ This patient will be followed by myself or a community physician who will periodically review the plan of care. Home Meds Active Scripts Midodrine Hcl (MIDODRINE HCL) 5 Mg Tablet, 10 MG PO [id number] for hypotension for 14 Days, #84 TAB Prov:TEDDY PERALES MD 09/10/18 Reported Medications Diphenhydramine Hcl (BENADRYL) 25 Mg Capsule, 25 MG PO Q6HRS for itching, CAP 08/12/18 Calcium Acetate (CALCIUM ACETATE) 667 Mg Tablet, 667 MG PO TIDWMEALS for DIALYSIS PATIENTS, CAP 07/03/18 Folic Acid/Vitamin B Comp W-C (DIALYVITE TABLET) 1 Each Tablet, 1 EACH PO DAILY for after dialysis on dialysis day, TAB 07/03/18 Midodrine Hcl (MIDODRINE HCL) 5 Mg Tablet, 5 MG PO TID for bp, TAB 06/25/18 Cyclobenzaprine Hcl (CYCLOBENZAPRINE HCL) 5 Mg Tablet, 1 TAB PO TID for muscle spasms, #30 TAB 06/10/18 Omeprazole (OMEPRAZOLE) 40 Mg Capsule.dr, 1 CAP PO DAILY for gerd, #30 CAP 3 Refills 05/01/18 Rifaximin (XIFAXAN) 550 Mg Tablet, 1 TAB PO BID, #28 TAB 02/07/18 Iron,Fum&Ps/Fa/Vit B&C#18/L.ca (FUSION PLUS CAPSULE) 1 Each Capsule, 1 EACH PO, CAP 05/09/17 Albuterol Sulfate (ALBUTEROL SULFATE CONC NEB SOLN) 2.5 Mg/0.5 Ml Vial.neb, 2.5 MG NEB Q6HRS PRN for SHORTNESS OF BREATH, EACH 0 Refills 08/03/15 Lactulose (LACTULOSE) 20 Gm/30 Ml Solution, 20 GM PO TID 08/03/15 Insulin Glargine,Hum.rec.anlog (LANTUS SOLOSTAR) 100 Unit/1 Ml Insuln.pen, 0 SQ HS for DM SSI 06/10/13 Calcium Carbonate/Vitamin D3 (CALCIUM + VITAMIN D TABLET) 1 Each Tablet, 1 EACH PO 06/02/13 Albuterol Sulfate (ALBUTEROL SULFATE HFA INHALER) 8.5 Gm Hfa.aer.ad, 8.5 GM IH 06/02/13 Insulin Aspart (NOVOLOG FLEXPEN) 100 Unit/1 Ml Insuln.pen, 0 SQ TIDAC for DM ssi 06/02/13 Levothyroxine Sodium (SYNTHROID) 25 Mcg Tablet, 300 MCG PO DAILY 06/02/13 Fluticasone Propionate (FLOVENT 110MCG HFA) 12 Gm Aer.w.adap, 12 GM IH 06/02/13 TEDDY PERALES MD September 11, 2018 09:30
--- NOTE | 2018-09-11 09:57 | NUR ---
CONSENT REC'D FOR PARACENTESIS
--- NOTE | 2018-09-11 11:48 | PDOC ---
SUBJECTIVE ROS Stable OBJECTIVE Vital Signs Vital Signs Date Time Temp Pulse Resp B/P (MAP) Pulse Ox O2 Delivery O2 Flow Rate FiO2 09/11/18 08:10 Room Air 09/11/18 07:00 97.9 99 16 89/24 (45) 93 97.9 I & 0 Intake and Output 09/11/18 07:00 Intake Total 1500 ml Balance 1500 ml Intake Oral 1500 ml # Bowel Movements 1 PHYSICAL EXAM Physical Exam GEN: NAD HEEN: OM moist NECK: Supple CVS: RRR RESP: CTA ,no Acc. Muscle Use GI: Distended, Ascites++ : [No CVA tenderness, [No Suprapubic Tenderness, No Ashley NEURO- AxO x3, Grossly normal SKIN NO rash EXT No edema DIAGNOSIS/ASSESSMENT Assessment & Plan ESRD- On HD MWF at - Dr. Tracy Chronic Hypotension No indication for HD today Cirrhosis / DIAZ Recurrent ascites requiring frequent paracentesis (last 12L on 09/04) Per RN scheduled for Paracentesis today GI managing Pt and daughter reports getting eval for liver tx at [facility] Knee Effusion s/p fall Ortho recommended fu as OP Chronic anemia- Varices Hypotension- Chronic sec to Cirrhosis COMMENT/RELEVANT DATA Meds Current Medications Medications (Trade) Dose Ordered Sig/Emanuel Start Time Stop Time Status Last Admin Dose Admin Acetaminophen/ Hydrocodone Bitart (Lortab 5/325) 1 tab PRN Q6HRS PRN 09/04/18 20:45 09/04/18 22:42 1 TAB Albumin Human 200 ml @ 200 mls/hr 1X PRN PRN 09/08/18 20:15 09/09/18 02:14 DC Albuterol Sulfate (Ventolin Neb Soln) 2.5 mg PRN Q6HRS PRN 09/10/18 20:00 09/11/18 01:37 2.5 MG Alteplase, Recombinant (Cathflo For Central Catheter Clearance) 2 mg 1X ONCE 09/08/18 22:30 09/08/18 22:31 DC Calcium Acetate (Phoslo) 667 mg TIDWMEALS 09/04/18 18:00 09/11/18 07:56 667 MG Clotrimazole (Mycelex) 10 mg 5XDAY 09/06/18 14:00 09/08/18 14:19 DC 09/08/18 05:16 10 MG Cyclobenzaprine HCl (Flexeril) 10 mg PRN Q6HRS PRN 09/04/18 20:00 09/05/18 05:56 10 MG Dextrose (Dextrose 50%-Water Syringe) 12.5 gm PRN Q15MIN PRN 09/04/18 17:45 Diphenhydramine HCl (Benadryl) 25 mg 1X PRN PRN 09/05/18 09:15 09/05/18 19:00 DC Fentanyl Citrate (Fentanyl 2ml Vial) 50 mcg PRN Q1HR PRN 09/04/18 12:15 09/05/18 12:14 DC Gentamicin Sulfate 145 mg/ Sodium Chloride 103.625 ml @ 103.625 mls/hr 1X ONCE 09/09/18 11:00 09/09/18 11:59 DC 09/09/18 10:38 103.625 MLS/HR Info (PHARMACY MONITORING -- do not chart) 1 each PRN DAILY PRN 09/10/18 12:15 UNV Insulin Glargine (Lantus) 12 units HS 09/06/18 21:00 09/10/18 20:57 12 UNITS Insulin Human Lispro (HumaLOG) 6 units 1X ONCE 09/04/18 18:00 09/04/18 18:01 DC 09/04/18 18:11 6 UNITS Lactobacillus Rhamnosus (Culturelle) 1 cap BID 09/06/18 13:00 09/11/18 08:59 1 CAP Lactulose (Lactulose) 20 gm PRN TID PRN 09/08/18 12:00 Lidocaine/Sodium Bicarbonate (Buffered Lidocaine 1%) 9 ml 1X ONCE 09/04/18 14:45 09/04/18 14:46 DC 09/04/18 14:57 8 ML Midodrine (Proamatine) 10 mg [id number] 09/06/18 18:00 09/11/18 06:40 10 MG Non-Formulary Medication (Midodrine Hcl ) 5 mg TID 09/06/18 14:00 UNV Nystatin (Mycostatin) 1 kiana BID 09/06/18 13:00 09/11/18 09:02 1 KIANA Ondansetron HCl (Zofran) 4 mg PRN Q8HRS PRN 09/04/18 12:15 09/05/18 12:14 DC Pantoprazole Sodium (Protonix) 40 mg DAILYAC 09/04/18 14:00 09/11/18 06:39 40 MG Phenyleph/Shark Oil/Min Oil/Petrol (Preparation H) 1 kiana PRN DAILY PRN 09/06/18 12:45 09/07/18 20:29 1 KIANA Rifaximin (Xifaxan) 550 mg Q12HR 09/04/18 14:30 09/11/18 08:59 550 MG Sodium Chloride 1,000 ml @ 400 mls/hr Q2H30M PRN 09/10/18 12:00 09/10/18 18:00 DC Lab Laboratory Tests Test 09/10/18 15:42 09/10/18 20:54 09/11/18 04:54 09/11/18 07:31 Glucose (Fingerstick) 166 mg/dL (70-99) 275 mg/dL (70-99) 332 mg/dL (70-99) 315 mg/dL (70-99) Test 09/11/18 11:31 Glucose (Fingerstick) 292 mg/dL (70-99) Results All relevant outside records, renal labs, imaging studies, telemetry/EKG's were reviewed. DARLING SHORT MD September 11, 2018 11:48
--- NOTE | 2018-09-11 12:03 | NUR ---
SW following for discharge planning. Discussed with RN. Pt did not discharge yesterday due to incorrect discharge order and some apparent problem with transportation. Pt having paracentesis today and scheduled to discharge home with [facility]. ALEXANDER spoke with pt's son, Tre (ph: [phone], cell: [phone]) regarding transportation, they need EMS to bring pt home as they are concerned they cannot get pt up the front steps without assistance. ALEXANDER schedule non emergent ambulance with [facility] for 1700. ALEXANDER spoke with pt's son about acute rehab and if it is okay for ALEXANDER to give [facility] his phone number so they can discuss with him about the rehab process and if there is any way for pt to be admitted from home if pt changes her mind, instead of bringing pt back to [facility] - pt's son in agreement. ALEXANDER contacted Sophia at [facility] to provide pt's son, Tre's phone number. No further SW needs.
--- NOTE | 2018-09-11 12:12 | PDOC ---
Subjective: Subjective: "I'm pissed off!" Objective: Objective: Called by RN this morning to ask about paracentesis prior to DC - gave okay to order. Vital Signs: Vital Signs Date Time Temp Pulse Resp B/P (MAP) Pulse Ox O2 Delivery O2 Flow Rate FiO2 09/11/18 12:02 90/34 09/11/18 08:10 Room Air 09/11/18 07:00 97.9 99 16 93 97.9 Labs: Laboratory Tests Test 09/10/18 15:42 09/10/18 20:54 09/11/18 04:54 09/11/18 07:31 Glucose (Fingerstick) 166 mg/dL 275 mg/dL 332 mg/dL 315 mg/dL Test 09/11/18 11:31 Glucose (Fingerstick) 292 mg/dL PE: GEN: NAD, eating lunch, has make-up on LUNGS: CTAB HEART: RRR ABD: distended NEURO/PSYCH: A & O 3 A/P: ESLD, recurrent ascites -- Awaiting weekly paracentesis. DC per primary, continue usual GI meds. JENNIE ABRAMS September 11, 2018 12:12
[2018-09-11] MEDS ORDERED: LIDOCAINE WITH 8.4% SOD BICARB 3 ML DISP.SYRIN. ONE (13:13)
[2018-09-11] MEDS ORDERED: LIDOCAINE WITH 8.4% SOD BICARB 3 ML DISP.SYRIN. INJ ONE (13:30)
[2018-09-11] MEDS ORDERED: ALBUMIN HUMAN 25% 100 ML IV ONE ×5 (14:06→14:45)
--- NOTE | 2018-09-11 14:52 | RAD ---
Ultrasound-guided paracentesis 09/11/2018 2:48 PM Procedure: The risks and benefits of the procedure were discussed the patient. Informed consent was obtained. A timeout procedure was performed. Sonographic evaluation of the abdomen was performed demonstrating ascites . The right lower quadrant was prepped and draped using maximum sterile barrier technique. 1% lidocaine without epinephrine was administered for local anesthesia. Real-time ultrasonographic guidance was used in passing a 5 [place] Yueh catheter into the fluid collection. This is exchanged for an 8 [place] drainage catheter. 11 L serous ascites was removed. The catheter was removed and pressure held to achieve hemostasis. A sterile dressing was applied. Impression: Successful ultrasound-guided paracentesis
[2018-09-11] MEDS: HYDROcodone/APAP 5/325MG 1 TAB TABLET PO PRN (15:06)
--- NOTE | 2018-09-11 15:27 | NUR ---
Returned from procedure, c/o abdominal discomfort, Lortab given for discomfort, dtr. placed Kpad to area, HOB elevated, receiving Albumin at present then to be discharged to home
--- NOTE | 2018-09-11 16:04 | PDOC ---
PROGRESS NOTES Chief Complaint Chief Complaint ESRD on HD - 2/2 hepatorenal syndrome Left knee pain with Large joint effusion End-stage liver disease with recurrent ascites s/p recent para 09/04 and 09/11 Recent history of vancomycin-resistant enterococci Encephalopathy/hyperammonemia Chronic anemia - EGD 04/24/18: grade 1 varices, gastritis History of Present Illness History of Present Illness 62-year-old female PMHx H/o ESLD (DIAZ), recurrent ascites/frequent paracentesis, PVT, hepatic encephalopathy, esophageal varices, ESRD on HD (hepatorenal syndrome), chronic anemia (iron deficient in 04/2018) requiring transfusions, thrombocytopenia admitted through ED after she fell, hurting her left knee and missing dialysis. She was supposed to have paracentesis yesterday as well. To ER instead w/ daughter because couldn't manage at home w/ significant pain and limited mobility. Has been having diarrhea - started on pancreatic enzymes last admission, not taking at home, and she is not taking lactulose or Xifaxin as prescribed either Has desired further eval for liver transplant but declined by [facility] due to past behavior, also unable to transfer to [facility] in the past due to insurance. patient not discharged yesterday as had scheduled para today. will be discharged today Vitals Vitals Vital Signs Date Time Temp Pulse Resp B/P (MAP) Pulse Ox O2 Delivery O2 Flow Rate FiO2 09/11/18 15:06 Room Air 09/11/18 14:41 94 20 103/49 (67) 95 09/11/18 11:00 97.8 97.8 Physical Exam Physical Exam GENERAL: Propped up in bed, alert, NAD HENT: Normal conjunctivae. Oral cavity, pharynx clear. NECK: Supple, no JVD. LUNGS: Decreased in the bases, no wheeze. HEART: S1, S2. ABDOMEN: Obese, distended, soft, NT : Ashley, no urine output EXTREMITIES: Without clubbing, cyanosis. LLE bandaged, knee immobilizer off SKIN: Warm to touch without signs of rash. NEUROLOGIC: Nonfocal, moves all extremities. Port-A-Cath and HDC without complications. General: Alert, Cooperative Lungs: Clear, Other Abdomen: Other (massive ascites) Extremities: Other (the left knee does not have an effusion today, other than slight swelling. She does have trace ecchymosis over the proximal aspect of the medial collateral ligament, and most of the tenderness is medial. The gross alignment is normal. There was pain medially with valgus stress but no synovial laxity, and I suspect an MCL sprain based on the mechanism of injury and the current findings. The patella is not dislocated area of the extensor mechanism i s intact. Except for the slight bruising the skin is intact red the lateral joint line is nontender. Difficult to assess her ACL became and PCL because she is holding the knee at about 30 of flexion, and has pain with attempts to move significantly.) Skin: No breakdown, Other (minor ecchymosis left knee medially) Labs LABS Laboratory Tests Test 09/10/18 20:54 09/11/18 04:54 09/11/18 07:31 09/11/18 11:31 Glucose (Fingerstick) 275 mg/dL (70-99) 332 mg/dL (70-99) 315 mg/dL (70-99) 292 mg/dL (70-99) Assessment and Plan Assessmemt and Plan Problems Medical Problems: (1) Fall Status: Acute (2) Hypotension Status: Acute (3) Knee effusion, left Status: Acute Comment Review of Relevant I have reviewed the following items chante (where applicable) has been applied. Labs Laboratory Tests Test 09/09/18 16:48 09/09/18 21:10 09/10/18 05:00 09/10/18 07:54 Glucose (Fingerstick) 350 mg/dL (70-99) 341 mg/dL (70-99) 307 mg/dL (70-99) Sodium Level 132 mmol/L (136-145) Potassium Level 3.8 mmol/L (3.5-5.1) Chloride Level 96 mmol/L (98-107) Carbon Dioxide Level 21 mmol/L (21-32) Anion Gap 15 (6-14) Blood Urea Nitrogen 47 mg/dL (7-20) Creatinine 6.6 mg/dL (0.6-1.0) Estimated GFR (Cockcroft-Gault) 6.4 BUN/Creatinine Ratio 7 (6-20) Glucose Level 338 mg/dL (70-99) Calcium Level 8.2 mg/dL (8.5-10.1) Total Bilirubin 1.7 mg/dL (0.2-1.0) Aspartate Amino Transf (AST/SGOT) 29 U/L (15-37) Alanine Aminotransferase (ALT/SGPT) 15 U/L (14-59) Alkaline Phosphatase 194 U/L (46-116) Total Protein 5.7 g/dL (6.4-8.2) Albumin 2.4 g/dL (3.4-5.0) Albumin/Globulin Ratio 0.7 (1.0-1.7) Test 09/10/18 11:44 09/10/18 15:42 09/10/18 20:54 09/11/18 04:54 Glucose (Fingerstick) 346 mg/dL (70-99) 166 mg/dL (70-99) 275 mg/dL (70-99) 332 mg/dL (70-99) Test 09/11/18 07:31 09/11/18 11:31 Glucose (Fingerstick) 315 mg/dL (70-99) 292 mg/dL (70-99) Laboratory Tests Test 09/10/18 20:54 09/11/18 04:54 09/11/18 07:31 09/11/18 11:31 Glucose (Fingerstick) 275 mg/dL (70-99) 332 mg/dL (70-99) 315 mg/dL (70-99) 292 mg/dL (70-99) Microbiology 09/07/18 Urine Culture - Final, Complete 09/07/18 Urine Culture Result 1 (JOSE) - Final, Complete 09/07/18 Antimicrobic Susceptibility - Final, Complete Medications Current Medications Ondansetron HCl (Zofran) 4 mg PRN Q8HRS PRN IV NAUSEA/VOMITING; Start 09/04/18 at 12:15; Stop 09/05/18 at 12:14; Status DC Fentanyl Citrate (Fentanyl 2ml Vial) 50 mcg PRN Q1HR PRN IV PAIN; Start 09/04/18 at 12:15; Stop 09/05/18 at 12:14; Status DC Rifaximin (Xifaxan) 550 mg Q12HR PO Last administered on 09/11/18at 08:59; Start 09/04/18 at 14:30 Lactulose (Lactulose) 20 gm PRN TID PRN PO CONSTIPATION; Start 09/04/18 at 13:45; Stop 09/08/18 at 11:49; Status DC Pantoprazole Sodium (Protonix) 40 mg DAILYAC PO Last administered on 09/11/18at 06:39; Start 09/04/18 at 14:00 Diphenhydramine HCl (Benadryl) 25 mg PRN Q6HRS PRN PO ITCHING Last administered on 09/05/18at 00:04; Start 09/04/18 at 14:15 Lidocaine/Sodium Bicarbonate (Buffered Lidocaine 1%) 3 ml STK-MED ONCE .ROUTE ; Start 09/04/18 at 14:34; Stop 09/04/18 at 14:35; Status DC Lidocaine/Sodium Bicarbonate (Buffered Lidocaine 1%) 9 ml 1X ONCE INJ Last administered on 09/04/18at 14:57; Start 09/04/18 at 14:45; Stop 09/04/18 at 14:46; Status DC Albumin Human 100 ml @ 100 mls/hr 1X ONCE IV Last administered on 09/04/18at 15:30; Start 09/04/18 at 15:30; Stop 09/04/18 at 16:29; Status DC Albumin Human 100 ml @ 100 mls/hr 1X ONCE IV Last administered on 09/04/18at 15:30; Start 09/04/18 at 15:30; Stop 09/04/18 at 16:29; Status DC Albumin Human 100 ml @ 100 mls/hr 1X ONCE IV Last administered on 09/04/18at 15:44; Start 09/04/18 at 16:00; Stop 09/04/18 at 16:59; Status DC Diphenhydramine HCl (Benadryl) 25 mg Q6HRS PO ; Start 09/04/18 at 18:00; Status UNV Insulin Glargine (Lantus) 10 units HS SQ Last administered on 09/05/18at 22:09; Start 09/04/18 at 21:00; Stop 09/06/18 at 12:44; Status DC Lactulose (Lactulose) 20 gm TID PO ; Start 09/04/18 at 21:00; Stop 09/08/18 at 11:49; Status DC Calcium Acetate (Phoslo) 667 mg TIDWMEALS PO Last administered on 09/11/18at 11:58; Start 09/04/18 at 18:00 Insulin Human Lispro (HumaLOG) 0-5 UNITS TIDWMEALS SQ Last administered on 09/11/18at 12:05; Start 09/05/18 at 08:00 Dextrose (Dextrose 50%-Water Syringe) 12.5 gm PRN Q15MIN PRN IV SEE COMMENTS; Start 09/04/18 at 17:45 Insulin Human Lispro (HumaLOG) 6 units 1X ONCE SQ Last administered on 09/04/18at 18:11; Start 09/04/18 at 18:00; Stop 09/04/18 at 18:01; Status DC Cyclobenzaprine HCl (Flexeril) 10 mg PRN Q6HRS PRN PO MUSCLE SPASMS Last administered on 09/05/18at 05:56; Start 09/04/18 at 20:00 Acetaminophen/ Hydrocodone Bitart (Lortab 5/325) 1 tab PRN Q6HRS PRN PO PAIN Last administered on 09/11/18at 15:06; Start 09/04/18 at 20:45 Sodium Chloride 1,000 ml @ 1,000 mls/hr Q1H PRN IV hypotension; Start 09/05/18 at 09:30; Stop 09/05/18 at 19:00; Status DC Diphenhydramine HCl (Benadryl) 25 mg 1X PRN PRN IV ITCHING; Start 09/05/18 at 09:15; Stop 09/05/18 at 19:00; Status DC Diphenhydramine HCl (Benadryl) 25 mg 1X PRN PRN IV ITCHING; Start 09/05/18 at 09:15; Stop 09/05/18 at 19:00; Status DC Sodium Chloride 1,000 ml @ 400 mls/hr Q2H30M PRN IV PATENCY; Start 09/05/18 at 09:00; Stop 09/05/18 at 19:00; Status DC Info (PHARMACY MONITORING -- do not chart) 1 each PRN DAILY PRN MC SEE COMMENTS; Start 09/05/18 at 09:15; Stop 09/09/18 at 12:33; Status DC Albumin Human 200 ml @ 200 mls/hr 1X STAT IV Last administered on 09/05/18at 11:28; Start 09/05/18 at 11:17; Stop 09/05/18 at 12:16; Status DC Non-Formulary Medication (Midodrine Hcl ) 5 mg TID PO ; Start 09/06/18 at 14:00; Status UNV Midodrine (Proamatine) 5 mg [id number] PO Last administered on 09/06/18at 11:45; Start 09/06/18 at 13:00; Stop 09/06/18 at 13:00; Status DC Nystatin (Mycostatin) 1 kiana BID TP Last administered on 09/11/18 09:02; Start 09/06/18 at 13:00 Clotrimazole (Mycelex) 10 mg 5XDAY MM Last administered on 09/08/18 05:16; Start 09/06/18 at 14:00; Stop 09/08/18 at 14:19; Status DC Lactobacillus Rhamnosus (Culturelle) 1 cap BID PO Last administered on 09/11/18 08:59; Start 09/06/18 at 13:00 Midodrine (Proamatine) 5 mg 1X ONCE PO Last administered on 09/06/18at 12:55; Start 09/06/18 at 12:45; Stop 09/06/18 at 12:46; Status DC Insulin Glargine (Lantus) 12 units HS SQ Last administered on 09/10/18 20:57; Start 09/06/18 at 21:00 Midodrine (Proamatine) 10 mg [id number] PO Last administered on 09/11/18at 12:02; Start 09/06/18 at 18:00 Phenyleph/Shark Oil/Min Oil/Petrol (Preparation H) 1 kiana PRN DAILY PRN RC RECT AL PAIN Last administered on 09/07/18at 20:29; Start 09/06/18 at 12:45 Lactulose (Lactulose) 20 gm PRN TID PRN PO constipation, HE; Start 09/08/18 at 12:00 Sodium Chloride 1,000 ml @ 1,000 mls/hr Q1H PRN IV hypotension; Start 09/08/18 at 20:03; Stop 09/09/18 at 02:02; Status DC Albumin Human 200 ml @ 200 mls/hr 1X PRN PRN IV Hypotension; Start 09/08/18 at 20:15; Stop 09/09/18 at 02:14; Status DC Sodium Chloride 1,000 ml @ 400 mls/hr Q2H30M PRN IV PATENCY; Start 09/08/18 at 20:03; Stop 09/09/18 at 08:02; Status DC Info (PHARMACY MONITORING -- do not chart) 1 each PRN DAILY PRN MC SEE COMMENTS; Start 09/08/18 at 20:15; Status UNV Info (PHARMACY MONITORING -- do not chart) 1 each PRN DAILY PRN MC SEE COMMENTS; Start 09/08/18 at 20:15 Alteplase, Recombinant (Cathflo For Central Catheter Clearance) 2 mg 1X ONCE INT CAT ; Start 09/08/18 at 22:30; Stop 09/08/18 at 22:31; Status DC Gentamicin Sulfate 145 mg/ Sodium Chloride 103.625 ml @ 103.625 mls/hr 1X ONCE IV Last administered on 09/09/18at 10:38; Start 09/09/18 at 11:00; Stop 09/09/18 at 11:59; Status DC Sodium Chloride 1,000 ml @ 1,000 mls/hr Q1H PRN IV hypotension; Start 09/10/18 at 12:00; Stop 09/10/18 at 18:00; Status DC Sodium Chloride 1,000 ml @ 400 mls/hr Q2H30M PRN IV PATENCY; Start 09/10/18 at 12:00; Stop 09/10/18 at 18:00; Status DC Info (PHARMACY MONITORING -- do not chart) 1 each PRN DAILY PRN MC SEE COMMENT S; Start 09/10/18 at 12:15; Status UNV Info (PHARMACY MONITORING -- do not chart) 1 each PRN DAILY PRN MC SEE COMMENTS; Start 09/10/18 at 12:15; Status UNV Albuterol Sulfate (Ventolin Neb Soln) 2.5 mg PRN Q6HRS PRN NEB SHORTNESS OF BREATH Last administered on 09/11/18at 01:37; Start 09/10/18 at 20:00 Lidocaine/Sodium Bicarbonate (Buffered Lidocaine 1%) 3 ml STK-MED ONCE .ROUTE ; Start 09/11/18 at 13:13; Stop 09/11/18 at 13:14; Status DC Lidocaine/Sodium Bicarbonate (Buffered Lidocaine 1%) 9 ml 1X ONCE INJ Last administered on 09/11/18at 13:30; Start 09/11/18 at 13:30; Stop 09/11/18 at 13:31; Status DC Albumin Human 100 ml @ As Directed STK-MED ONCE IV ; Start 09/11/18 at 14:06; Stop 09/11/18 at 14:07; Status DC Albumin Human 100 ml @ 100 mls/hr 1X ONCE IV Last administered on 09/11/18at 14:15; Start 09/11/18 at 14:15; Stop 09/11/18 at 15:14; Status DC Albumin Human 100 ml @ 100 mls/hr 1X ONCE IV Last administered on 09/11/18at 14:30; Start 09/11/18 at 14:30; Stop 09/11/18 at 15:29; Status DC Albumin Human 100 ml @ As Directed STK-MED ONCE IV ; Start 09/11/18 at 14:25; Stop 09/11/18 at 14:26; Status DC Albumin Human 100 ml @ 100 mls/hr 1X ONCE IV Last administered on 09/11/18at 15:24; Start 09/11/18 at 14:45; Stop 09/11/18 at 15:44; Status DC Active Scripts Active Midodrine Hcl 5 Mg Tablet 10 Mg PO [id number] Days Reported Benadryl (Diphenhydramine Hcl) 25 Mg Capsule 25 Mg PO Q6HRS Calcium Acetate 667 Mg Tablet 667 Mg PO TIDWMEALS Dialyvite Tablet (Folic Acid/Vitamin B Comp W-C) 1 Each Tablet 1 Each PO DAILY Midodrine Hcl 5 Mg Tablet 5 Mg PO TID Cyclobenzaprine Hcl 5 Mg Tablet 1 Tab PO TID Omeprazole 40 Mg Capsule.dr 1 Cap PO DAILY Xifaxan (Rifaximin) 550 Mg Tablet 1 Tab PO BID Fusion Plus Capsule (Iron,Fum&Ps/Fa/Vit B&C#18/L.ca) 1 Each Capsule 1 Each PO Albuterol Sulfate Conc Neb Soln (Albuterol Sulfate) 2.5 Mg/0.5 Ml Vial.neb 2.5 Mg NEB Q6HRS PRN Lactulose 20 Gm/30 Ml Solution 20 Gm PO TID Lantus Solostar (Insulin Glargine,Hum.rec.anlog) 100 Unit/1 Ml Insuln.pen 0 SQ HS SSI Calcium + Vitamin D Tablet (Calcium Carbonate/Vitamin D3) 1 Each Tablet 1 Each PO Albuterol Sulfate Hfa Inhaler (Albuterol Sulfate) 8.5 Gm Hfa.aer.ad 8.5 Gm IH Novolog Flexpen (Insulin Aspart) 100 Unit/1 Ml Insuln.pen 0 SQ TIDAC ssi Synthroid (Levothyroxine Sodium) 25 Mcg Tablet 300 Mcg PO DAILY Flovent 110MCG Hfa (Fluticasone Propionate) 12 Gm Aer.w.adap 12 Gm IH Vitals/I & O Vital Sign - Last 24 Hours 09/10/18 09/10/18 09/10/18 09/10/18 17:31 19:00 19:00 20:00 Temp 97.9 97.9 Pulse 92 109 113 Resp 18 16 B/P (MAP) 86/23 102/39 (60) 80/30 (47) Pulse Ox 97 97 O2 Delivery Room Air Room Air Room Air 09/10/18 09/10/18 09/11/18 09/11/18 20:20 23:00 01:37 03:00 Temp 98.1 97.9 98.1 97.9 Pulse 98 105 Resp 16 16 B/P (MAP) 95/32 (53) 98/33 (54) Pulse Ox 97 94 94 O2 Delivery Room Air Room Air Room Air Room Air 09/11/18 09/11/18 09/11/18 09/11/18 06:40 07:00 08:10 11:00 Temp 97.9 97.8 97.9 97.8 Pulse 98 99 96 Resp 16 18 B/P (MAP) 90/33 89/24 (45) 90/34 (52) Pulse Ox 93 95 O2 Delivery Room Air Room Air Room Air 09/11/18 09/11/18 09/11/18 09/11/18 12:02 13:58 14:16 14:31 Pulse 98 98 96 Resp 20 22 B/P (MAP) 90/34 102/49 (66) 94/44 (61) 105/50 (68) Pulse Ox 96 97 95 O2 Delivery Room Air Room Air 09/11/18 09/11/18 14:41 15:06 Pulse 94 Resp 20 B/P (MAP) 103/49 (67) Pulse Ox 95 O2 Delivery Room Air Room Air Intake and Output 09/10/18 09/10/18 09/11/18 15:00 23:00 07:00 Intake Total 360 ml 700 ml 440 ml Balance 360 ml 700 ml 440 ml TEDDY PERALES MD September 11, 2018 16:04
--- NOTE | 2018-09-11 16:43 | NUR ---
Port a cath, flushed and de-accessed for dismissal to home, daughter at bedside
--- NOTE | 2018-09-11 17:52 | NUR ---
Discharged to home per EMS transport, dtr here for transfer, belongings taken with her
== END 2018-09-11 17:55 | disposition home health service (06) | DRG 432 ==
LOC: ER 09:06 → 4 NORTH 12:02
PROVIDERS: ADMIT Family Medicine; ATTEND Family Medicine
PROC: 2W3RX3Z Immobilization of Left Lower Leg using Brace (ICD-10-PCS; 2018-09-04)
PROC: 5A1D70Z Performance of Urinary Filtration, Intermittent, Less than 6 Hours Per Day (ICD-10-PCS; principal; 2018-09-05)
PROC: 0W9G3ZZ Drainage of Peritoneal Cavity, Percutaneous Approach (ICD-10-PCS; 2018-09-05)
PROC: 5A1D70Z Performance of Urinary Filtration, Intermittent, Less than 6 Hours Per Day (ICD-10-PCS; 2018-09-08)
PROC: 5A1D70Z Performance of Urinary Filtration, Intermittent, Less than 6 Hours Per Day (ICD-10-PCS; 2018-09-10)
PROC: 0W9G3ZZ Drainage of Peritoneal Cavity, Percutaneous Approach (ICD-10-PCS; 2018-09-11)
DX: K74.60 Unspecified cirrhosis of liver (principal); N18.6 End stage renal disease; K76.7 Hepatorenal syndrome; S82.202A Unspecified fracture of shaft of left tibia, initial encounter for closed fracture; I12.0 Hypertensive chronic kidney disease with stage 5 chronic kidney disease or end stage renal disease; E87.1 Hypo-osmolality and hyponatremia; K76.6 Portal hypertension; R18.8 Other ascites; N39.0 Urinary tract infection, site not specified; E72.20 Disorder of urea cycle metabolism, unspecified; K72.90 Hepatic failure, unspecified without coma; S83.412A Sprain of medial collateral ligament of left knee, initial encounter; R32 Unspecified urinary incontinence; J44.9 Chronic obstructive pulmonary disease, unspecified; K21.9 Gastro-esophageal reflux disease without esophagitis; K59.00 Constipation, unspecified; K29.70 Gastritis, unspecified, without bleeding; K64.9 Unspecified hemorrhoids; M19.90 Unspecified osteoarthritis, unspecified site; K80.20 Calculus of gallbladder without cholecystitis without obstruction; D63.1 Anemia in chronic kidney disease; D69.6 Thrombocytopenia, unspecified; B95.2 Enterococcus as the cause of diseases classified elsewhere; G62.9 Polyneuropathy, unspecified; E03.9 Hypothyroidism, unspecified; E21.3 Hyperparathyroidism, unspecified; E11.22 Type 2 diabetes mellitus with diabetic chronic kidney disease; E78.5 Hyperlipidemia, unspecified; E87.6 Hypokalemia; F17.210 Nicotine dependence, cigarettes, uncomplicated; F32.9 Major depressive disorder, single episode, unspecified; F41.9 Anxiety disorder, unspecified; W19.XXXA Unspecified fall, initial encounter; Z91.19 Patient's noncompliance with other medical treatment and regimen; Z99.2 Dependence on renal dialysis; Z91.15 Patient's noncompliance with renal dialysis; Z90.710 Acquired absence of both cervix and uterus; Z88.1 Allergy status to other antibiotic agents; Z98.49 Cataract extraction status, unspecified eye; Z87.440 Personal history of urinary (tract) infections; Z82.3 Family history of stroke; Z83.3 Family history of diabetes mellitus; Y92.89 Other specified places as the place of occurrence of the external cause; Y93.89 Activity, other specified; Z86.010 Personal history of colon polyps; Y99.8 Other external cause status; Z88.6 Allergy status to analgesic agent; Z88.3 Allergy status to other anti-infective agents; Z88.5 Allergy status to narcotic agent; Z88.2 Allergy status to sulfonamides; Z88.8 Allergy status to other drugs, medicaments and biological substances
CPT/HCPCS: 36415; 49083; 73562; 73700; 80053; 81001; 82140; 82962; 85007; 85025; 85610; 87086; 87186; 94640; A4215; C1729; C1894; J1580; J1815; J7613; P9046; Q0163; 97110; 97530; 97535; 99285-25

== ENCOUNTER 2018-09-12 17:11 | Inpatient (IN) | payer OTHER ==
[~2018-09-12] VITALS: Ht 162.6 cm; Wt 76.7 kg
[2018-09-12] MEDS ORDERED: fentaNYL PF VIAL 100 MCG/2 ML VIAL IV ONE (17:45)
[2018-09-12 18:11] LABS: BASO # 0.1 x10^3/uL (0.0-0.2); BASO % 1 % (0-3); EOS % 0 % (0-3); HEMATOCRIT 28.2 % (36.0-47.0); HEMOGLOBIN 9.1 g/dL (12.0-15.5); LYMPH # 0.4 x10^3/uL (1.0-4.8); LYMPH % 4 % (24-48); MEAN CORPUSCULAR HEMOGLOBIN 30 pg (25-35); MEAN CORPUSCULAR HGB CONC 32 g/dL (31-37); MEAN CORPUSCULAR VOLUME 93 fL (79-100); MONO # 1.3 x10^3/uL (0.0-1.1); MONO % 10 % (0-9); NEUT # 10.9 x10^3uL (1.8-7.7); NEUT % 85 % (31-73); PLATELET COUNT 139 x10^3/uL (140-400); RED BLOOD COUNT 3.04 x10^6/uL (3.50-5.40); RED CELL DISTRIBUTION WIDTH 19.3 % (11.5-14.5); WHITE BLOOD COUNT 12.7 x10^3/uL (4.0-11.0)
[2018-09-12 18:21] LABS: CALCIUM 8.9 mg/dL (8.5-10.1); CREATININE 5.9 mg/dL (0.6-1.0); GFR 7.3; POTASSIUM 3.9 mmol/L (3.5-5.1)
[2018-09-12 18:28] LABS: ALBUMIN 3.3 g/dL (3.4-5.0); ALBUMIN/GLOBULIN RATIO 1.3 (1.0-1.7); MAGNESIUM 1.9 mg/dL (1.8-2.4); TOTAL BILIRUBIN 2.6 mg/dL (0.2-1.0); TOTAL PROTEIN 5.9 g/dL (6.4-8.2)
--- NOTE | 2018-09-12 18:36 | RAD ---
PORTABLE CHEST 1V History: Fall Comparison: 06/19/2018 Findings: Single view of the chest is submitted. There is now moderate to large left pleural effusion. There is again right internal jugular port catheter, also dual lumen left internal jugular dialysis type catheter. Cardiac silhouette is again likely enlarged. There is atherosclerotic calcification of the aortic arch. There is some increased hazy airspace opacity of the mid to superior left hemithorax extending near effusion. Impression: 1. There is now moderate to large left pleural effusion, also increased airspace opacity of left hemithorax extending near effusion which may be component of atelectasis or infiltrate. Electronically signed by: Walker Ramachandran MD (09/12/2018 6:33 PM) [facility]
--- NOTE | 2018-09-12 18:38 | RAD ---
KNEE LEFT 3V History: Fall Comparison: None. Findings: 4 views of the left knee are submitted. No acute fracture or dislocation is identified by radiographs. There is no significant joint effusion. Impression: 1. No acute radiographic abnormality is identified. Electronically signed by: Walker Ramachandran MD (09/12/2018 6:35 PM) [facility]
[2018-09-12] MEDS ORDERED: fentaNYL PF VIAL 100 MCG/2 ML VIAL IV PRN (19:00)
[2018-09-12] MEDS ORDERED: ONDANSETRON PF 4 MG/2 ML VIAL. IV PRN (19:00)
--- NOTE | 2018-09-12 19:00 | PHYS DOC ---
Past Medical History Past Medical History: COPD, Diabetes-Type II, Liver Disease, Renal Disease, Renal Failure, Other Additional Past Medical Histor: neuropathy,gallstones,non etoh cirossis (KOLE AKERS APRN) Past Surgical History: Hysterectomy, Other Additional Past Surgical Histo: esophogeal banding after esoph. varacies. PORT PLACEMENT R CHEST (KOLE AKERS APRN) Alcohol Use: None Drug Use: None (KOLE AKERS APRN) Adult General Chief Complaint Chief Complaint: KNEE INJURY HPI HPI Patient is a 62 year old female with past medical history of end-stage renal disease on dialysis, patient states the last time she was dialyzed was during her last hospitalization, ascites, paracentesis, anemia, who presents to the ED today to be evaluated status post falling. Patient states she is unable to get up and ambulate on her own. She states she was getting ready to go to dialysis when she fell. She states she has left knee pain. She rates the pain as moderate and worse on touching the knee. She is a bit aggressive to the nursing staff. Denies hitting her head on the ground when she fell. Denies any loss of consciousness. She states she was discharged from the hospital yesterday, she states she is supposed to go to a rehabilitation facility but they sent her home yesterday from the hospital after being hospitalized from another fall. (KOLE AKERS APRN) Review of Systems Review of Systems Constitutional: Denies fever or chills [] Eyes: Denies change in visual acuity, redness, or eye pain [] HENT: Denies nasal congestion or sore throat [] Respiratory: Denies cough or shortness of breath [] Cardiovascular: No additional information not addressed in HPI [] GI: Denies abdominal pain, nausea, vomiting, bloody stools or diarrhea [] : Denies dysuria or hematuria [] Musculoskeletal: Reports left knee pain and inability to ambulate Integument: Denies rash or skin lesions [] Neurologic: Denies headache, focal weakness or sensory changes [] All other systems were reviewed and found to be within normal limits, except as documented in this note. (KOLE AKERS APRN) Current Medications Current Medications Current Medications Medications (Trade) Dose Ordered Sig/Emanuel Start Time Stop Time Status Last Admin Dose Admin Fentanyl Citrate (Fentanyl 2ml Vial) 50 mcg 1X ONCE 09/12/18 17:45 09/12/18 17:46 DC 09/12/18 18:15 50 MCG (LAWRENCE ARIAS DO) Allergies Allergies Allergies Coded Allergies Type Severity Reaction Last Updated Verified Sulfa (Sulfonamide Antibiotics) Allergy Severe Swelling 04/24/18 Yes cephalexin Allergy Severe Anaphylaxis 05/22/18 Yes doxycycline Allergy Intermediate 04/24/18 Yes gabapentin Allergy Intermediate Anxiety 06/04/18 Yes insulin detemir Allergy Intermediate Rash 04/24/18 Yes morphine Allergy Intermediate rash 04/24/18 Yes niacin Allergy Intermediate Rash 04/24/18 Yes oxycodone Allergy Intermediate rash 04/24/18 Yes povidone-iodine Allergy Intermediate It 04/24/18 Yes rifaximin Allergy Intermediate Itching 09/04/18 Yes tramadol Allergy Intermediate Rash 04/24/18 Yes I S O L A T I O N *CONTACT* Allergy Unknown 04/24/18 Yes codeine Adverse Reaction Intermediate Nausea and Vomiting 04/24/18 Yes erythromycin base Adverse Reaction Intermediate Diarrhea 04/24/18 Yes (LAWRENCE ARIAS DO) Physical Exam Physical Exam Constitutional: Well developed, well nourished, no acute distress, non-toxic appearance. [] HENT: Normocephalic, bilateral external ears normal, oropharynx moist, no oral exudates, nose normal. [] Neck: Normal range of motion, no tenderness, supple, no stridor. [] Cardiovascular: Dialysis catheter noted on the left upper chest. No signs of infection around the catheter. Heart rate regular rhythm, no murmur [] Lungs & Thorax: Bilateral breath sounds clear to auscultation [] Abdomen: Round distended abdomen consistent with ascites. Bowel sounds normal, soft, no tenderness, no masses, no pulsatile masses. [] Skin: Warm, dry, no erythema, no rash. [] Back: No tenderness, no CVA tenderness. [] Extremities: Unable to do full knee exam because patient will not let us start the knee. Neurologic: Alert and oriented X 3, normal motor function, normal sensory function, no focal deficits noted. Cranial nerves II through XII intact. Psychologic: Affect normal, judgement normal, mood normal. [] (KOLE AKERS APRN) Current Patient Data Vital Signs Vital Signs Date Time Temp Pulse Resp B/P (MAP) Pulse Ox O2 Delivery O2 Flow Rate FiO2 09/12/18 18:15 110 29 107/49 (68) 92 Room Air 09/12/18 17:15 98.0 98.0 (LAWRENCE ARIAS DO) Lab Values Laboratory Tests Test 09/12/18 17:50 White Blood Count 12.7 x10^3/uL (4.0-11.0) H Red Blood Count 3.04 x10^6/uL (3.50-5.40) L Hemoglobin 9.1 g/dL (12.0-15.5) L Hematocrit 28.2 % (36.0-47.0) L Mean Corpuscular Volume 93 fL (79-100) Mean Corpuscular Hemoglobin 30 pg (25-35) Mean Corpuscular Hemoglobin Concent 32 g/dL (31-37) Red Cell Distribution Width 19.3 % (11.5-14.5) H Platelet Count 139 x10^3/uL (140-400) L Neutrophils (%) (Auto) 85 % (31-73) H Lymphocytes (%) (Auto) 4 % (24-48) L Monocytes (%) (Auto) 10 % (0-9) H Eosinophils (%) (Auto) 0 % (0-3) Basophils (%) (Auto) 1 % (0-3) Neutrophils # (Auto) 10.9 x10^3uL (1.8-7.7) H Lymphocytes # (Auto) 0.4 x10^3/uL (1.0-4.8) L Monocytes # (Auto) 1.3 x10^3/uL (0.0-1.1) H Eosinophils # (Auto) 0.0 x10^3/uL (0.0-0.7) Basophils # (Auto) 0.1 x10^3/uL (0.0-0.2) Segmented Neutrophils % 91 % (35-66) H Lymphocytes % 3 % (24-48) L Monocytes % 6 % (0-10) Platelet Estimate Adequate (ADEQUATE) Polychromasia Slight Anisocytosis Slight Schistocytes Occ Sodium Level 136 mmol/L (136-145) Potassium Level 3.9 mmol/L (3.5-5.1) Chloride Level 94 mmol/L (98-107) L Carbon Dioxide Level 22 mmol/L (21-32) Anion Gap 20 (6-14) H Blood Urea Nitrogen 39 mg/dL (7-20) H Creatinine 5.9 mg/dL (0.6-1.0) H Estimated GFR (Cockcroft-Gault) 7.3 BUN/Creatinine Ratio 7 (6-20) Glucose Level 243 mg/dL (70-99) H Calcium Level 8.9 mg/dL (8.5-10.1) Magnesium Level 1.9 mg/dL (1.8-2.4) Total Bilirubin 2.6 mg/dL (0.2-1.0) H Aspartate Amino Transferase (AST) 33 U/L (15-37) Alanine Aminotransferase (ALT) 17 U/L (14-59) Alkaline Phosphatase 201 U/L (46-116) H Troponin I Quantitative 0.025 ng/mL (0.000-0.055) KK-Wfw-K-Type Natriuretic Peptide 7413 pg/mL (0-124) H Total Protein 5.9 g/dL (6.4-8.2) L Albumin 3.3 g/dL (3.4-5.0) L Albumin/Globulin Ratio 1.3 (1.0-1.7) Laboratory Tests 09/12/18 17:50 Laboratory Tests 09/12/18 17:50 (LAWRENCE ARIAS DO) EKG EKG 17:[address] Arias sinus tachycardia heart rate 113 no STEMI[] (KOLE AKERS APRN) Radiology/Procedures Radiology/Procedures []PROCEDURE: KNEE LEFT 3V KNEE LEFT 3V History: Fall Comparison: None. Findings: 4 views of the left knee are submitted. No acute fracture or dislocation is identified by radiographs. There is no significant joint effusion. Impression: 1. No acute radiographic abnormality is identified. Electronically signed by: Alexey Alexandra MD (09/12/2018 6:35 PM) [facility] DICTATED and SIGNED BY: ALEXEY ALEXANDRA MD DATE: 09/12/18 1835 PROCEDURE: PORTABLE CHEST 1V PORTABLE CHEST 1V History: Fall Comparison: 06/19/2018 Findings: Single view of the chest is submitted. There is now moderate to large left pleural effusion. There is again right internal jugular port catheter, also dual lumen left internal jugular dialysis type catheter. Cardiac silhouette is again likely enlarged. There is atherosclerotic calcification of the aortic arch. There is some increased hazy airspace opacity of the mid to superior left hemithorax extending near effusion. Impression: 1. There is now moderate to large left pleural effusion, also increased airspace opacity of left hemithorax extending near effusion which may be component of atelectasis or infiltrate. Electronically signed by: Alexey Alexandra MD (09/12/2018 6:33 PM) [facility] DICTATED and SIGNED BY: ALEXYE ALEXANDRA MD DATE: 09/12/181832 (KOLE AKERS APRN) Course & Med Decision Making Course & Med Decision Making Pertinent Labs and Imaging studies reviewed. (See chart for details) This is a 62-year-old female patient with significant medical history including end-stage renal disease on dialysis, cirrhosis with ascites, who presents to the ED today status post falling. Patient states she is unable to get up and ambulate. She was discharged from the hospital yesterday after being admitted for similar complaint. She is supposed to go to rehabilitation she states they're still making arrangements for this. She is complaining of knee pain and inability to ambulate. Consulted with Dr. Infante who accepted patient for admission. Left knee x-rays are negative. Chest x-ray and noted for possible atelectasis or a large pleural effusion. We will wait for labs before we proceed with any antibiotics. Labs are still pending at admission time. (KOLE AKERS APRN) Dragon Disclaimer Dragon Disclaimer This electronic medical record was generated, in whole or in part, using a voice recognition dictation system. (KOLE AKERS APRN) Departure Departure Impression: Primary Impression: End stage renal disease Additional Impressions: Fall Cirrhosis Left knee pain Disposition: ADMITTED INPATIENT Condition: STABLE Referrals: VIANEY VU DO (PCP) Attending Signature Attending Signature I have reviewed the PA/AIRCONDITIONING DRAFTING OFFICER's note and plan of care. I was available for consul tation as needed during the patient's visit in the emergency department. I agree with the clinical impression, plan, and disposition. (LAWRENCE ARIAS DO) Problem Qualifiers Additional Impressions: Fall Encounter type: initial encounter Qualified Codes: W19.XXXA - Unspecified fall, initial encounter Cirrhosis Hepatic cirrhosis type: unspecified hepatic cirrhosis Ascites presence: with ascites Qualified Codes: K74.60 - Unspecified cirrhosis of liver; R18.8 - Other ascites Left knee pain Chronicity: acute Qualified Codes: M25.562 - Pain in left knee KOLE AKERS APRN September 12, 2018 19:00 LAWRENCE ARIAS DO September 16, 2018 05:09
--- NOTE | 2018-09-12 19:26 | NUR ---
The patient, YANIRA BRAVO, 62 y/o, F admitted by CHUCK RIVERA MD, was given written information regarding hospital policies, unit procedures and contact persons. Valuables were checked and left with the patient.
[2018-09-12 19:45] LABS: % LYMPHS 3 % (24-48); % MONOS 6 % (0-10); % SEGS 91 % (35-66); ANISOCYTOSIS SLIGHT; PLT ESTIMATE ADEQUATE (ADEQUATE); POLYCHROMASIA SLIGHT; SCHISTOCYTES OCC
[2018-09-12 20:09] VITALS: BP 91/28
[2018-09-12] MEDS ORDERED: IV NORMAL SALINE 1000ML BAG 750 ML IV ONE (21:30)
[2018-09-12] MEDS: LACTULOSE 20 GM/30 ML SOLUTION. PO SCH (21:53)
[2018-09-12] MEDS: CYCLOBENZAPRINE 10 MG TABLET. PO SCH (21:54)
[2018-09-12] MEDS: MIDODRINE 5 MG TABLET PO SCH (21:55)
--- NOTE | 2018-09-12 22:51 | NUR ---
patient home medication restarted as per Doctors order. The nurse was unable to restart the Lantus and NovoLog because the patient is not sure of how much she takes at home.
[2018-09-12 23:53] VITALS: BP 103/47
[2018-09-13 03:42] VITALS: BP 107/38
[2018-09-13] MEDS: diphenhydrAMINE HCL 25 MG CAPSULE PO SCH ×4 (06:00→17:39)
[2018-09-13] MEDS: LEVOTHYROXINE 150 MCG TABLET PO SCH (06:03)
[2018-09-13 07:00] VITALS: BP 141/57
[2018-09-13] MEDS ORDERED: MIDODRINE 5 MG TABLET PO SCH (07:00)
[2018-09-13] MEDS: MIDODRINE 5 MG TABLET PO SCH ×5 (07:00→17:38)
[2018-09-13] MEDS ORDERED: ONDANSETRON PF 4 MG/2 ML VIAL. IV PRN (08:00)
[2018-09-13] MEDS ORDERED: ALBUTEROL SULFATE 2.5 MG/3 ML NEBU. NEB PRN (08:00)
[2018-09-13] MEDS ORDERED: fentaNYL PF VIAL 100 MCG/2 ML VIAL IV PRN (08:00)
[2018-09-13] MEDS ORDERED: BUDESONIDE 0.5 MG/2 ML NEBU. NEB ONE (08:45)
--- NOTE | 2018-09-13 08:47 | PDOC ---
Provider Note Provider Note [id number] dyspnea pleural effusion suspect 2/2 esld, and esrd, us guided thoracentesis by IR copd see orders MYRANDA TANG MD September 13, 2018 08:47
[2018-09-13] MEDS ORDERED: ALBUTEROL SULFATE 8GM INHALER. IH SCH (09:00)
[2018-09-13] MEDS: CYCLOBENZAPRINE 10 MG TABLET. PO SCH ×3 (09:00→21:12)
[2018-09-13] MEDS ORDERED: DEXTROSE 50% 25 GM / 50ML DISP.SYRIN. IV PRN (09:15)
--- NOTE | 2018-09-13 09:20 | PDOC1 ---
History and Physical Date of Admission Date of Admission DATE: 09/13/18 TIME: 09:15 Identification/Chief Complaint Chief Complaint FAll, inability to care for herself at home Source Source: Caregiver, Chart review, Patient History of Present Illness History of Present Illness This 62-year-old female, has makeup on, but very poor historian. She lives at home with a son. Admitting diagnosis was fall with no injuries and inability to care for self but she adamantly refuses any rehabilitation or SNU. She wants to go home with the son. In any case she is also ESRD, last dialysis was during last hospitalization. I was trying to elicit if there was problems with HD transportation, again she is not the best historian. She is tachycardic with blood pressure on the low side. She has recurrent ascites needing paracentesis- every week she claims. Currently the abdomen is soft and nontender. Called by RN because of a blood sugar over 300s. Looking at meds, supposed to be on long-acting and short-acting insulin but she cannot tell me the dose. She has multiple allergies including Levemir. Labs, hemoglobin 9, WBC 12 with platelets 139. She is trying to eat her breakfast, otherwise VS as mentioned above CXR shows moderate to large pleural effusion. Left knee x-ray only OA but no broken bones Past Medical History Cardiovascular: HTN, Hyperlipidemia Pulmonary: Asthma, COPD CENTRAL NERVOUS SYSTEM: Other GI: Constipation, GERD, GI bleed, Gastritis, Hemorrhoids, Other Heme/Onc: Anemia NOS Hepatobiliary: Cirrhosis Psych: Anxiety, Depression Musculoskeletal: Osteoarthritis Renal/: Acute renal failure, Chronic renal failure, UTI, Urinary Incontinence Endocrine: Diabetes, Hypothyroidism, Hyperparathyroidism Past Surgical History Past Surgical History: Cataract Removal, Tonsillectomy, Hysterectomy, Other Family History Family History: High Cholestrol, Hypertension, Family History Unknown Social History Smoke: No ALCOHOL: none Drugs: None Current Problem List Problem List Problems Medical Problems: (1) Fall Status: Acute (2) Left knee pain Status: Acute Current Medications Current Medications Current Medications Fentanyl Citrate (Fentanyl 2ml Vial) 50 mcg 1X ONCE IV Last administered on 09/12/18at 18:15; Start 09/12/18 at 17:45; Stop 09/12/18 at 17:46; Status DC Ondansetron HCl (Zofran) 4 mg PRN Q8HRS PRN IV NAUSEA/VOMITING; Start 09/12/18 at 19:00; Stop 09/13/18 at 07:50; Status DC Fentanyl Citrate (Fentanyl 2ml Vial) 50 mcg PRN Q1HR PRN IV PAIN Last administered on 09/12/18at 19:12; Start 09/12/18 at 19:00; Stop 09/13/18 at 18:59 Diphenhydramine HCl (Benadryl) 25 mg Q6HRS PO ; Start 09/13/18 at 00:00 Lactulose (Lactulose) 20 gm TID PO Last administered on 09/12/18at 21:53; Start 09/12/18 at 21:00 Calcium Acetate (Phoslo) 667 mg TIDWMEALS PO ; Start 09/13/18 at 08:00 Cyclobenzaprine HCl (Flexeril) 5 mg TID PO Last administered on 09/12/18at 21:54; Start 09/12/18 at 21:15 Vitamin B Complex/ Vitamin C (Tasia-Meliton) 1 tab DAILY PO ; Start 09/13/18 at 09:00 Levothyroxine Sodium (Synthroid) 300 mcg DAILY06 PO Last administered on 09/13/18at 06:03; Start 09/13/18 at 06:00 Midodrine (Proamatine) 5 mg [id number] PO ; Start 09/13/18 at 07:00; Stop 09/13/18 at 07:00; Status DC Pantoprazole Sodium (Protonix) 40 mg DAILYAC PO ; Start 09/13/18 at 07:30 Sodium Chloride 750 ml @ 375 mls/hr 1X ONCE IV Last administered on 09/12/18at 21:53; Start 09/12/18 at 21:30; Stop 09/12/18 at 23:29; Status DC Midodrine (Proamatine) 5 mg [id number] PO Last administered on 09/12/18at 21:55; Start 09/12/18 at 22:00; Stop 09/13/18 at 07:54; Status DC Ondansetron HCl (Zofran) 4 mg PRN Q6HRS PRN IV NAUSEA/VOMITING; Start 09/13/18 at 08:00 Fentanyl Citrate (Fentanyl 2ml Vial) 25 mcg PRN Q2HR PRN IV PAIN; Start 5/25/19 at 08:00 Albuterol Sulfate (Ventolin Hfa) 2.5 puff QID IH ; Start 09/13/18 at 09:00; Status UNV Rifaximin (Xifaxan) 550 mg BID PO ; Start 09/13/18 at 09:00 Albuterol Sulfate (Ventolin Neb Soln) 2.5 mg PRN Q6HRS PRN NEB SHORTNESS OF BREATH; Start 09/13/18 at 08:00 Midodrine (Proamatine) 10 mg [id number] PO ; Start 09/13/18 at 08:00 Albuterol Sulfate (Ventolin Neb Soln) 2.5 mg RTQID NEB ; Start 09/13/18 at 09:00 Budesonide (Pulmicort) 0.5 mg RTBID NEB ; Start 09/13/18 at 20:00 Budesonide (Pulmicort) 0.5 mg 1X ONCE NEB ; Start 09/13/18 at 08:45; Stop 09/13/18 at 08:46; Status DC Active Scripts Active Midodrine Hcl 5 Mg Tablet 10 Mg PO [id number] 14 Days Reported Benadryl (Diphenhydramine Hcl) 25 Mg Capsule 25 Mg PO Q6HRS Calcium Acetate 667 Mg Tablet 667 Mg PO TIDWMEALS Dialyvite Tablet (Folic Acid/Vitamin B Comp W-C) 1 Each Tablet 1 Each PO DAILY Midodrine Hcl 5 Mg Tablet 5 Mg PO TID Cyclobenzaprine Hcl 5 Mg Tablet 1 Tab PO TID Omeprazole 40 Mg Capsule.dr 1 Cap PO DAILY Xifaxan (Rifaximin) 550 Mg Tablet 1 Tab PO BID Fusion Plus Capsule (Iron,Fum&Ps/Fa/Vit B&C#18/L.ca) 1 Each Capsule 1 Each PO Albuterol Sulfate Conc Neb Soln (Albuterol Sulfate) 2.5 Mg/0.5 Ml Vial.neb 2.5 Mg NEB Q6HRS PRN Lactulose 20 Gm/30 Ml Solution 20 Gm PO TID Lantus Solostar (Insulin Glargine,Hum.rec.anlog) 100 Unit/1 Ml Insuln.pen 0 SQ HS SSI Calcium + Vitamin D Tablet (Calcium Carbonate/Vitamin D3) 1 Each Tablet 1 Each PO Albuterol Sulfate Hfa Inhaler (Albuterol Sulfate) 8.5 Gm Hfa.aer.ad 8.5 Gm IH Novolog Flexpen (Insulin Aspart) 100 Unit/1 Ml Insuln.pen 0 SQ TIDAC ssi Synthroid (Levothyroxine Sodium) 25 Mcg Tablet 300 Mcg PO DAILY Flovent 110MCG Hfa (Fluticasone Propionate) 12 Gm Aer.w.adap 12 Gm IH Allergies Allergies: Coded Allergies: Sulfa (Sulfonamide Antibiotics) (Verified Allergy, Severe, Swelling, 04/24/18) tongue swelling, rash cephalexin (Verified Allergy, Severe, Anaphylaxis, 05/22/18) TOLERATES AMOX, ZOSYN doxycycline (Verified Allergy, Intermediate, 04/24/18) gabapentin (Verified Allergy, Intermediate, Anxiety, 06/04/18) pt states gabapentin caused her to be admitted to [facility] where she presented "because I was out of my mind from that drug." insulin detemir (Verified Allergy, Intermediate, Rash, 04/24/18) morphine (Verified Allergy, Intermediate, rash, 04/24/18) niacin (Verified Allergy, Intermediate, Rash, 04/24/18) edema oxycodone (Verified Allergy, Intermediate, rash, 04/24/18) povidone-iodine (Verified Allergy, Intermediate, It, 04/24/18) rifaximin (Verified Allergy, Intermediate, Itching, 09/04/18) takes at home and multi times previously OK, just doesn't like it. tramadol (Verified Allergy, Intermediate, Rash, 04/24/18) I S O L A T I O N *CONTACT* (Verified Allergy, Unknown, 04/24/18) VRE - urine 12/20/17 codeine (Verified Adverse Reaction, Intermediate, Nausea and Vomiting, 04/24/18) erythromycin base (Verified Adverse Reaction, Intermediate, Diarrhea, 04/24/18) ROS Review of System very poor historian hence limited ROS but so far she denies all, 14 point I tried to review with her Physical Exam General: Cooperative, No acute distress HEENT: Atraumatic, PERRLA, EOMI, Other ( right tunneled dialysis catheter) Lungs: Clear to auscultation, Normal air movement Heart: S1S2, RRR, no thrills, no rubs, no gallops, no murmurs Cardiovascular: S1 Breasts: Normal, Rt breast nml w/o mass, Lt breast nml w/o mass, Nipples normal Abdomen: Normal bowel sounds, Soft, No tenderness, No hepatosplenomegaly, No masses Rectal Exam: not examined PELVIC: Nml ext genitalia Vitals Vitals Vital Signs Date Time Temp Pulse Resp B/P (MAP) Pulse Ox O2 Delivery O2 Flow Rate FiO2 09/13/18 08:00 63 141/57 09/13/18 03:42 97.4 18 92 Room Air 97.4 Labs Labs Laboratory Tests Test 09/12/18 17:50 09/12/18 20:19 09/13/18 08:21 White Blood Count 12.7 x10^3/uL (4.0-11.0) Red Blood Count 3.04 x10^6/uL (3.50-5.40) Hemoglobin 9.1 g/dL (12.0-15.5) Hematocrit 28.2 % (36.0-47.0) Mean Corpuscular Volume 93 fL (79-100) Mean Corpuscular Hemoglobin 30 pg (25-35) Mean Corpuscular Hemoglobin Concent 32 g/dL (31-37) Red Cell Distribution Width 19.3 % (11.5-14.5) Platelet Count 139 x10^3/uL (140-400) Neutrophils (%) (Auto) 85 % (31-73) Lymphocytes (%) (Auto) 4 % (24-48) Monocytes (%) (Auto) 10 % (0-9) Eosinophils (%) (Auto) 0 % (0-3) Basophils (%) (Auto) 1 % (0-3) Neutrophils # (Auto) 10.9 x10^3uL (1.8-7.7) Lymphocytes # (Auto) 0.4 x10^3/uL (1.0-4.8) Monocytes # (Auto) 1.3 x10^3/uL (0.0-1.1) Eosinophils # (Auto) 0.0 x10^3/uL (0.0-0.7) Basophils # (Auto) 0.1 x10^3/uL (0.0-0.2) Segmented Neutrophils % 91 % (35-66) Lymphocytes % 3 % (24-48) Monocytes % 6 % (0-10) Platelet Estimate Adequate (ADEQUATE) Polychromasia Slight Anisocytosis Slight Schistocytes Occ Sodium Level 136 mmol/L (136-145) Potassium Level 3.9 mmol/L (3.5-5.1) Chloride Level 94 mmol/L (98-107) Carbon Dioxide Level 22 mmol/L (21-32) Anion Gap 20 (6-14) Blood Urea Nitrogen 39 mg/dL (7-20) Creatinine 5.9 mg/dL (0.6-1.0) Estimated GFR (Cockcroft-Gault) 7.3 BUN/Creatinine Ratio 7 (6-20) Glucose Level 243 mg/dL (70-99) Calcium Level 8.9 mg/dL (8.5-10.1) Magnesium Level 1.9 mg/dL (1.8-2.4) Total Bilirubin 2.6 mg/dL (0.2-1.0) Aspartate Amino Transf (AST/SGOT) 33 U/L (15-37) Alanine Aminotransferase (ALT/SGPT) 17 U/L (14-59) Alkaline Phosphatase 201 U/L (46-116) Troponin I Quantitative 0.025 ng/mL (0.000-0.055) YE-Auq-M-Type Natriuretic Peptide 7413 pg/mL (0-124) Total Protein 5.9 g/dL (6.4-8.2) Albumin 3.3 g/dL (3.4-5.0) Albumin/Globulin Ratio 1.3 (1.0-1.7) Glucose (Fingerstick) 227 mg/dL (70-99) 330 mg/dL (70-99) Laboratory Tests Test 09/12/18 17:50 09/12/18 20:19 09/13/18 08:21 White Blood Count 12.7 x10^3/uL (4.0-11.0) Red Blood Count 3.04 x10^6/uL (3.50-5.40) Hemoglobin 9.1 g/dL (12.0-15.5) Hematocrit 28.2 % (36.0-47.0) Mean Corpuscular Volume 93 fL (79-100) Mean Corpuscular Hemoglobin 30 pg (25-35) Mean Corpuscular Hemoglobin Concent 32 g/dL (31-37) Red Cell Distribution Width 19.3 % (11.5-14.5) Platelet Count 139 x10^3/uL (140-400) Neutrophils (%) (Auto) 85 % (31-73) Lymphocytes (%) (Auto) 4 % (24-48) Monocytes (%) (Auto) 10 % (0-9) Eosinophils (%) (Auto) 0 % (0-3) Basophils (%) (Auto) 1 % (0-3) Neutrophils # (Auto) 10.9 x10^3uL (1.8-7.7) Lymphocytes # (Auto) 0.4 x10^3/uL (1.0-4.8) Monocytes # (Auto) 1.3 x10^3/uL (0.0-1.1) Eosinophils # (Auto) 0.0 x10^3/uL (0.0-0.7) Basophils # (Auto) 0.1 x10^3/uL (0.0-0.2) Segmented Neutrophils % 91 % (35-66) Lymphocytes % 3 % (24-48) Monocytes % 6 % (0-10) Platelet Estimate Adequate (ADEQUATE) Polychromasia Slight Anisocytosis Slight Schistocytes Occ Sodium Level 136 mmol/L (136-145) Potassium Level 3.9 mmol/L (3.5-5.1) Chloride Level 94 mmol/L (98-107) Carbon Dioxide Level 22 mmol/L (21-32) Anion Gap 20 (6-14) Blood Urea Nitrogen 39 mg/dL (7-20) Creatinine 5.9 mg/dL (0.6-1.0) Estimated GFR (Cockcroft-Gault) 7.3 BUN/Creatinine Ratio 7 (6-20) Glucose Level 243 mg/dL (70-99) Calcium Level 8.9 mg/dL (8.5-10.1) Magnesium Level 1.9 mg/dL (1.8-2.4) Total Bilirubin 2.6 mg/dL (0.2-1.0) Aspartate Amino Transf (AST/SGOT) 33 U/L (15-37) Alanine Aminotransferase (ALT/SGPT) 17 U/L (14-59) Alkaline Phosphatase 201 U/L (46-116) Troponin I Quantitative 0.025 ng/mL (0.000-0.055) WL-Rww-Y-Type Natriuretic Peptide 7413 pg/mL (0-124) Total Protein 5.9 g/dL (6.4-8.2) Albumin 3.3 g/dL (3.4-5.0) Albumin/Globulin Ratio 1.3 (1.0-1.7) Glucose (Fingerstick) 227 mg/dL (70-99) 330 mg/dL (70-99) VTE Prophylaxis Ordered VTE Prophylaxis Devices: Yes VTE Pharmacological Prophylaxi: Yes Assessment/Plan Assessment/Plan Failure to thrive, generalized weakness-lives with a son but does not want any rehabilitation or SNU Moderate to large pleural effusion-I did consult pulmonary given that significant sized effusion, might have ordered CAT scan ESRD on dialysis-, noncompliance, last dialysis during last hospitalization Anemia of ESRD History of recurrent ascites and recurrent paracentesis-she claims every weekly Diabetes type 2, HON K with no mjng-gllhuuyqmyvn-rzbaw A1c, start Lantus 20 daily at bedtime and NovoLog 10 3 times a day with meals with sliding scale insulin. Check A1c Sinus tachycardia Thrombocytopenia, platelets is 139 with no bleeding History hypertension, OA-relative hypotension now History GERD-PPI Plan:admit 2 midnights, HD renal Consult renal and pulmonary CT chest might be in order for that effusion I have reconciled home meds Insulin regimen as above DVT prophylaxis with heparin PT OT Discussed with pulmonary and RN ABE RIVER MD September 13, 2018 09:20
[2018-09-13] MEDS ORDERED: INSULIN LISPRO 300 UNITS/3 ML INSULN.PEN. SQ ONE (09:30)
--- NOTE | 2018-09-13 09:35 | CONS ---
DATE OF CONSULTATION: 09/13/2018 I was asked to see this 62-year-old lady for shortness of breath and pleural effusion. HISTORY OF PRESENT ILLNESS: She does have a history of 38-bkal-ahgm smoking, stopped smoking about a year ago. She has a diagnosis of chronic obstructive pulmonary disease/asthma. She is on albuterol at home. She has cirrhosis, end-stage liver disease and has had multiple paracentesis, last time was on 09/11, 11 liters of fluid was removed. She had end-stage renal disease and is on dialysis. Last dialysis was done yesterday. She presented to the Emergency Room with weakness. She fell. She has had increased shortness of breath, she has occasional cough. She denies fever or chills. She has had wheezing. PAST MEDICAL HISTORY: End-stage renal disease on hemodialysis, end-stage liver disease, cirrhosis, esophageal banding for esophageal varices, diabetes mellitus and COPD. ALLERGIES: SULFA, CEPHALEXIN, CODEINE, DOXYCYCLINE, ERYTHROMYCIN, GABAPENTIN, INSULIN, MORPHINE, NIACIN, OXYCODONE, IODINE, RIFAXIMIN AND TRAMADOL. MEDICATIONS: She is currently on albuterol q.i.d., Xifaxan, vitamin D, midodrine, fentanyl p.r.n., levothyroxine and Protonix. SOCIAL HISTORY: History of 16-cmsl-vibf smoking, stopped smoking a year ago. FAMILY HISTORY: Hypertension. REVIEW OF SYSTEMS: As mentioned as above, other systems otherwise negative. PHYSICAL EXAMINATION: GENERAL: This is a chronically ill-appearing lady. VITAL SIGNS: Her O2 saturation on room air is 92%, respiratory rate 18, heart rate 100, blood pressure 107/38 and temperature 97.4. HEENT: Normocephalic and atraumatic. Pupils are equal, round and reactive to light. Throat is clear. Nose is clear. She appears pale. NECK: Positive JVD. No lymphadenopathy or thyromegaly. CARDIOVASCULAR: Regular rate and rhythm. PMI is nondisplaced. CHEST: Inspection is normal. LUNGS: There are bibasilar crackles, dullness at the left base. ABDOMEN: Soft. Bowel sounds are good. There is no mass. EXTREMITIES: There is no edema. LYMPHATICS: There is no lymphadenopathy. SKIN: Chronic changes. NEUROLOGIC: Alert and oriented. LABORATORY DATA: I reviewed the following lab data: Chest x-ray shows moderate left pleural effusion/infiltrate/atelectasis. WBC 12.7, hemoglobin 9.1 and platelets 139. Sodium 136, potassium 3.9, chloride 94, CO2 of 22, BUN 39 and creatinine 5.9. Glucose 243. BNP is 7413. Troponin 0.025. Total bilirubin 2.6. Alkaline phosphatase 2.1. IMPRESSION: 1. Dyspnea, multifactorial in etiology including a left pleural effusion, volume overload, ? CHF versus others. 2. Abnormal chest x-ray with left pleural effusion, I suspect this is secondary to her end-stage liver disease and end-stage renal disease. Other differential diagnosis including inflammatory, infectious and malignancy versus others. 3. Chronic obstructive pulmonary disease. 4. End-stage renal disease on hemodialysis. 5. End-stage liver disease, cirrhosis.. 6. Leukocytosis. 7. Anemia. 8. Thrombocytopenia. 9. Ex-smoker. PLAN AND RECOMMENDATIONS: 1. Titrate FiO2 to keep O2 saturation 92%. 2. Continue bronchodilator. 3. Add inhaled corticosteroid. 4. I do recommend an ultrasound-guided thoracentesis. I will consult Interventional Radiology for left-sided ultrasound thoracentesis. I will send pleural fluid for total protein, LDH, glucose, cell count, cultures and cytology. I will send serum for total protein, glucose and LDH at the same time. 5. The procedure, risks and benefits of the procedure were discussed with the patient. 6. Monitor respiratory status very closely. 7. echo The findings and recommendations were discussed with the patient. She understood and agreed to proceed with the plan. Thank you very much for allowing me to participate in the care of this very nice lady. MYRANDA TANG M.D. : Steve JOB#: [id number] / [id number] RADHA
[2018-09-13] MEDS: FOLIC/VIT B COMP W-C (RENAL) TABLET. PO SCH (09:48)
[2018-09-13] MEDS: LACTULOSE 20 GM/30 ML SOLUTION. PO SCH ×3 (09:48→21:00)
[2018-09-13] MEDS: rifAXIMin 550 MG TABLET PO SCH ×2 (09:49→21:12)
[2018-09-13] MEDS: CALCIUM ACETATE 667 MG CAPSULE PO SCH ×3 (09:49→17:00)
[2018-09-13] MEDS: PANTOPRAZOLE 40 MG TABLET.DR. PO SCH (09:49)
[2018-09-13 11:00] VITALS: BP 87/30
[2018-09-13] MEDS ORDERED: IV NORMAL SALINE 500ML BAG 500 ML IV ONE (12:15)
[2018-09-13] MEDS: INSULIN LISPRO 300 UNITS/3 ML INSULN.PEN. SQ SCH ×4 (12:28→17:00)
[2018-09-13 12:41] LABS: BASO % 0 % (0-3); EOS % 0 % (0-3); HEMATOCRIT 21.9 % (36.0-47.0); HEMOGLOBIN 7.2 g/dL (12.0-15.5); LYMPH # 0.4 x10^3/uL (1.0-4.8); LYMPH % 4 % (24-48); MEAN CORPUSCULAR HEMOGLOBIN 31 pg (25-35); MEAN CORPUSCULAR HGB CONC 33 g/dL (31-37); MEAN CORPUSCULAR VOLUME 93 fL (79-100); MONO # 0.4 x10^3/uL (0.0-1.1); MONO % 5 % (0-9); NEUT # 9.1 x10^3uL (1.8-7.7); NEUT % 91 % (31-73); PLATELET COUNT 97 x10^3/uL (140-400); RED BLOOD COUNT 2.35 x10^6/uL (3.50-5.40); RED CELL DISTRIBUTION WIDTH 19.5 % (11.5-14.5)
[2018-09-13 12:48] LABS: CALCIUM 7.7 mg/dL (8.5-10.1); GFR 7.1; POTASSIUM 3.1 mmol/L (3.5-5.1)
[2018-09-13] MEDS: ALBUTEROL SULFATE 2.5 MG/3 ML NEBU. NEB SCH ×4 (13:01→18:21)
[2018-09-13 13:12] LABS: FREE T4 1.16 ng/dL (0.76-1.46)
[2018-09-13] MEDS ORDERED: IV NORMAL SALINE 1000ML BAG 1,000 ML IV PRN ×2 (13:20)
[2018-09-13] MEDS ORDERED: ALBUMIN HUMAN 25% 200 ML IV PRN (13:30)
[2018-09-13] MEDS ORDERED: DIALYSIS PATIENT. MC PRN ×2 (13:30)
--- NOTE | 2018-09-13 14:31 | PDOC ---
Dialysis Progress Note Dialysis Note Dialysis Note Asked to see patient for ESRD on hemodialysis Saturday. Patient fell at home and was unable to go to outpatient dialysis since presented to the ER. She was recently admitted here earlier this week and hence formal consult has not been dictated. Seen on Hemodialysis, tolerating treatment Okay so far Vitals on Hemodialysis: 94/45 104 afeb General Appearance: Awake: Alert Oriented x 1-2 Neck: No JVD or JVP Chest: CTA Yaw Heart: S1 S2 Abdomen - Soft NTND Extremities - No Edema ESRD: Dialysis as below F 180 NR 3.0 Hrs 4 K 2.5 Ca 140 Na 40 HC03 Qb 350 + Qd 500+ Heparin 0 Units Uf 0-1 Kgs or to dry weight as tolerated Transfuse 1 Units PRCBC's on HD if needed May give 25-50 gms of 25% Albumin if needed to maintain Hemodynamic stability Treatment plan reviewed and discussed with flight communications specialist Vitals Vital Signs Vital Signs Date Time Temp Pulse Resp B/P (MAP) Pulse Ox O2 Delivery O2 Flow Rate FiO2 09/13/18 13:05 96 Room Air 09/13/18 11:46 97 85/24 09/13/18 11:00 98.9 15 98.9 Labs Last Labs Laboratory Tests Test 09/12/18 17:50 09/12/18 20:19 09/13/18 08:21 09/13/18 12:34 White Blood Count 12.7 x10^3/uL (4.0-11.0) 10.0 x10^3/uL (4.0-11.0) Red Blood Count 3.04 x10^6/uL (3.50-5.40) 2.35 x10^6/uL (3.50-5.40) Hemoglobin 9.1 g/dL (12.0-15.5) 7.2 g/dL (12.0-15.5) Hematocrit 28.2 % (36.0-47.0) 21.9 % (36.0-47.0) Mean Corpuscular Volume 93 fL (79-100) 93 fL (79-100) Mean Corpuscular Hemoglobin 30 pg (25-35) 31 pg (25-35) Mean Corpuscular Hemoglobin Concent 32 g/dL (31-37) 33 g/dL (31-37) Red Cell Distribution Width 19.3 % (11.5-14.5) 19.5 % (11.5-14.5) Platelet Count 139 x10^3/uL (140-400) 97 x10^3/uL (140-400) Neutrophils (%) (Auto) 85 % (31-73) 91 % (31-73) Lymphocytes (%) (Auto) 4 % (24-48) 4 % (24-48) Monocytes (%) (Auto) 10 % (0-9) 5 % (0-9) Eosinophils (%) (Auto) 0 % (0-3) 0 % (0-3) Basophils (%) (Auto) 1 % (0-3) 0 % (0-3) Neutrophils # (Auto) 10.9 x10^3uL (1.8-7.7) 9.1 x10^3uL (1.8-7.7) Lymphocytes # (Auto) 0.4 x10^3/uL (1.0-4.8) 0.4 x10^3/uL (1.0-4.8) Monocytes # (Auto) 1.3 x10^3/uL (0.0-1.1) 0.4 x10^3/uL (0.0-1.1) Eosinophils # (Auto) 0.0 x10^3/uL (0.0-0.7) 0.0 x10^3/uL (0.0-0.7) Basophils # (Auto) 0.1 x10^3/uL (0.0-0.2) 0.0 x10^3/uL (0.0-0.2) Segmented Neutrophils % 91 % (35-66) Lymphocytes % 3 % (24-48) Monocytes % 6 % (0-10) Platelet Estimate Adequate (ADEQUATE) Polychromasia Slight Anisocytosis Slight Schistocytes Occ Sodium Level 136 mmol/L (136-145) 137 mmol/L (136-145) Potassium Level 3.9 mmol/L (3.5-5.1) 3.1 mmol/L (3.5-5.1) Chloride Level 94 mmol/L (98-107) 100 mmol/L (98-107) Carbon Dioxide Level 22 mmol/L (21-32) 20 mmol/L (21-32) Anion Gap 20 (6-14) 17 (6-14) Blood Urea Nitrogen 39 mg/dL (7-20) 43 mg/dL (7-20) Creatinine 5.9 mg/dL (0.6-1.0) 6.0 mg/dL (0.6-1.0) Estimated GFR (Cockcroft-Gault) 7.3 7.1 BUN/Creatinine Ratio 7 (6-20) Glucose Level 243 mg/dL (70-99) 297 mg/dL (70-99) Calcium Level 8.9 mg/dL (8.5-10.1) 7.7 mg/dL (8.5-10.1) Magnesium Level 1.9 mg/dL (1.8-2.4) Total Bilirubin 2.6 mg/dL (0.2-1.0) Aspartate Amino Transf (AST/SGOT) 33 U/L (15-37) Alanine Aminotransferase (ALT/SGPT) 17 U/L (14-59) Alkaline Phosphatase 201 U/L (46-116) Troponin I Quantitative 0.025 ng/mL (0.000-0.055) OQ-Tqy-R-Type Natriuretic Peptide 7413 pg/mL (0-124) Total Protein 5.9 g/dL (6.4-8.2) Albumin 3.3 g/dL (3.4-5.0) Albumin/Globulin Ratio 1.3 (1.0-1.7) Glucose (Fingerstick) 227 mg/dL (70-99) 330 mg/dL (70-99) Erythrocyte Sedimentation Rate 6 (0-25) Thyroid Stimulating Hormone (TSH) 4.654 uIU/mL (0.358-3.74) Free Thyroxine 1.16 ng/dL (0.76-1.46) Free Triiodothyronine (T3) pg/mL 0.57 pg/mL (2.18-3.98) Test 09/13/18 13:30 Ammonia 187 mcmol/L (11-34) Laboratory Tests Test 09/12/18 17:50 09/12/18 20:19 09/13/18 08:21 09/13/18 12:34 White Blood Count 12.7 x10^3/uL (4.0-11.0) 10.0 x10^3/uL (4.0-11.0) Red Blood Count 3.04 x10^6/uL (3.50-5.40) 2.35 x10^6/uL (3.50-5.40) Hemoglobin 9.1 g/dL (12.0-15.5) 7.2 g/dL (12.0-15.5) Hematocrit 28.2 % (36.0-47.0) 21.9 % (36.0-47.0) Mean Corpuscular Volume 93 fL (79-100) 93 fL (79-100) Mean Corpuscular Hemoglobin 30 pg (25-35) 31 pg (25-35) Mean Corpuscular Hemoglobin Concent 32 g/dL (31-37) 33 g/dL (31-37) Red Cell Distribution Width 19.3 % (11.5-14.5) 19.5 % (11.5-14.5) Platelet Count 139 x10^3/uL (140-400) 97 x10^3/uL (140-400) Neutrophils (%) (Auto) 85 % (31-73) 91 % (31-73) Lymphocytes (%) (Auto) 4 % (24-48) 4 % (24-48) Monocytes (%) (Auto) 10 % (0-9) 5 % (0-9) Eosinophils (%) (Auto) 0 % (0-3) 0 % (0-3) Basophils (%) (Auto) 1 % (0-3) 0 % (0-3) Neutrophils # (Auto) 10.9 x10^3uL (1.8-7.7) 9.1 x10^3uL (1.8-7.7) Lymphocytes # (Auto) 0.4 x10^3/uL (1.0-4.8) 0.4 x10^3/uL (1.0-4.8) Monocytes # (Auto) 1.3 x10^3/uL (0.0-1.1) 0.4 x10^3/uL (0.0-1.1) Eosinophils # (Auto) 0.0 x10^3/uL (0.0-0.7) 0.0 x10^3/uL (0.0-0.7) Basophils # (Auto) 0.1 x10^3/uL (0.0-0.2) 0.0 x10^3/uL (0.0-0.2) Segmented Neutrophils % 91 % (35-66) Lymphocytes % 3 % (24-48) Monocytes % 6 % (0-10) Platelet Estimate Adequate (ADEQUATE) Polychromasia Slight Anisocytosis Slight Schistocytes Occ Sodium Level 136 mmol/L (136-145) 137 mmol/L (136-145) Potassium Level 3.9 mmol/L (3.5-5.1) 3.1 mmol/L (3.5-5.1) Chloride Level 94 mmol/L (98-107) 100 mmol/L (98-107) Carbon Dioxide Level 22 mmol/L (21-32) 20 mmol/L (21-32) Anion Gap 20 (6-14) 17 (6-14) Blood Urea Nitrogen 39 mg/dL (7-20) 43 mg/dL (7-20) Creatinine 5.9 mg/dL (0.6-1.0) 6.0 mg/dL (0.6-1.0) Estimated GFR (Cockcroft-Gault) 7.3 7.1 BUN/Creatinine Ratio 7 (6-20) Glucose Level 243 mg/dL (70-99) 297 mg/dL (70-99) Calcium Level 8.9 mg/dL (8.5-10.1) 7.7 mg/dL (8.5-10.1) Magnesium Level 1.9 mg/dL (1.8-2.4) Total Bilirubin 2.6 mg/dL (0.2-1.0) Aspartate Amino Transf (AST/SGOT) 33 U/L (15-37) Alanine Aminotransferase (ALT/SGPT) 17 U/L (14-59) Alkaline Phosphatase 201 U/L (46-116) Troponin I Quantitative 0.025 ng/mL (0.000-0.055) UZ-Ecl-Y-Type Natriuretic Peptide 7413 pg/mL (0-124) Total Protein 5.9 g/dL (6.4-8.2) Albumin 3.3 g/dL (3.4-5.0) Albumin/Globulin Ratio 1.3 (1.0-1.7) Glucose (Fingerstick) 227 mg/dL (70-99) 330 mg/dL (70-99) Erythrocyte Sedimentation Rate 6 (0-25) Thyroid Stimulating Hormone (TSH) 4.654 uIU/mL (0.358-3.74) Free Thyroxine 1.16 ng/dL (0.76-1.46) Free Triiodothyronine (T3) pg/mL 0.57 pg/mL (2.18-3.98) Test 09/13/18 13:30 Ammonia 187 mcmol/L (11-34) Assessment Assessment Problems Medical Problems: (1) Fall Status: Acute (2) Left knee pain Status: Acute Plan Plan of Care Problems Medical Problems: (1) Fall Status: Acute (2) Left knee pain Status: Acute KENDRICK PANCHAL MD September 13, 2018 14:31
[2018-09-13] MEDS: IV NORMAL SALINE 1000ML BAG 1,000 ML IV SCH ×2 (17:45→22:15)
[2018-09-13] MEDS: BUDESONIDE 0.5 MG/2 ML NEBU. NEB SCH (18:22)
[2018-09-13 19:00] VITALS: BP 97/27
[2018-09-13] MEDS: INSULIN GLARGINE 300 UNITS/3 ML INSULN.PEN. SQ SCH (21:19)
[2018-09-13 23:00] VITALS: BP 85/31
[2018-09-14] MEDS: diphenhydrAMINE HCL 25 MG CAPSULE PO SCH ×2 (00:06→06:26)
[2018-09-14 03:00] VITALS: BP 91/29
[2018-09-14] MEDS: LEVOTHYROXINE 150 MCG TABLET PO SCH (06:26)
[2018-09-14] MEDS: PANTOPRAZOLE 40 MG TABLET.DR. PO SCH (06:30)
[2018-09-14] MEDS: MIDODRINE 5 MG TABLET PO SCH ×3 (06:30→18:11)
[2018-09-14 07:00] VITALS: BP 95/28
[2018-09-14] MEDS: BUDESONIDE 0.5 MG/2 ML NEBU. NEB SCH ×2 (08:00→20:00)
[2018-09-14] MEDS: FOLIC/VIT B COMP W-C (RENAL) TABLET. PO SCH (08:02)
[2018-09-14] MEDS: rifAXIMin 550 MG TABLET PO SCH ×2 (08:03→20:27)
[2018-09-14] MEDS: CALCIUM ACETATE 667 MG CAPSULE PO SCH ×3 (08:03→17:00)
[2018-09-14] MEDS: CYCLOBENZAPRINE 10 MG TABLET. PO SCH (08:04)
[2018-09-14] MEDS: INSULIN LISPRO 300 UNITS/3 ML INSULN.PEN. SQ SCH ×6 (08:09→18:30)
[2018-09-14] MEDS: LACTULOSE 20 GM/30 ML SOLUTION. PO SCH ×3 (08:10→20:28)
--- NOTE | 2018-09-14 08:34 | PDOC ---
PULMONARY PROGRESS NOTES Subjective sob better, no cough, no pain Vitals Vital Signs Date Time Temp Pulse Resp B/P (MAP) Pulse Ox O2 Delivery O2 Flow Rate FiO2 09/14/18 07:00 98.2 99 20 95/28 (50) 96 2.0 98.2 ROS: No Nausea, No Chest Pain General: Alert HEENT: Other (nc at perrl nose throat clear) Lungs: Crackles, Other (dull at l base) Cardiovascular: S1, S2 Abdomen: Soft, Non-tender, Other Neuro Exam: Alert Extremities: No Edema Skin: Warm Labs Laboratory Tests Test 09/12/18 17:50 09/12/18 20:19 09/13/18 08:21 09/13/18 11:25 White Blood Count 12.7 x10^3/uL (4.0-11.0) Red Blood Count 3.04 x10^6/uL (3.50-5.40) Hemoglobin 9.1 g/dL (12.0-15.5) Hematocrit 28.2 % (36.0-47.0) Mean Corpuscular Volume 93 fL (79-100) Mean Corpuscular Hemoglobin 30 pg (25-35) Mean Corpuscular Hemoglobin Concent 32 g/dL (31-37) Red Cell Distribution Width 19.3 % (11.5-14.5) Platelet Count 139 x10^3/uL (140-400) Neutrophils (%) (Auto) 85 % (31-73) Lymphocytes (%) (Auto) 4 % (24-48) Monocytes (%) (Auto) 10 % (0-9) Eosinophils (%) (Auto) 0 % (0-3) Basophils (%) (Auto) 1 % (0-3) Neutrophils # (Auto) 10.9 x10^3uL (1.8-7.7) Lymphocytes # (Auto) 0.4 x10^3/uL (1.0-4.8) Monocytes # (Auto) 1.3 x10^3/uL (0.0-1.1) Eosinophils # (Auto) 0.0 x10^3/uL (0.0-0.7) Basophils # (Auto) 0.1 x10^3/uL (0.0-0.2) Segmented Neutrophils % 91 % (35-66) Lymphocytes % 3 % (24-48) Monocytes % 6 % (0-10) Platelet Estimate Adequate (ADEQUATE) Polychromasia Slight Anisocytosis Slight Schistocytes Occ Sodium Level 136 mmol/L (136-145) Potassium Level 3.9 mmol/L (3.5-5.1) Chloride Level 94 mmol/L (98-107) Carbon Dioxide Level 22 mmol/L (21-32) Anion Gap 20 (6-14) Blood Urea Nitrogen 39 mg/dL (7-20) Creatinine 5.9 mg/dL (0.6-1.0) Estimated GFR (Cockcroft-Gault) 7.3 BUN/Creatinine Ratio 7 (6-20) Glucose Level 243 mg/dL (70-99) Calcium Level 8.9 mg/dL (8.5-10.1) Magnesium Level 1.9 mg/dL (1.8-2.4) Total Bilirubin 2.6 mg/dL (0.2-1.0) Aspartate Amino Transf (AST/SGOT) 33 U/L (15-37) Alanine Aminotransferase (ALT/SGPT) 17 U/L (14-59) Alkaline Phosphatase 201 U/L (46-116) Troponin I Quantitative 0.025 ng/mL (0.000-0.055) GK-Afv-P-Type Natriuretic Peptide 7413 pg/mL (0-124) Total Protein 5.9 g/dL (6.4-8.2) Albumin 3.3 g/dL (3.4-5.0) Albumin/Globulin Ratio 1.3 (1.0-1.7) Glucose (Fingerstick) 227 mg/dL (-99) 330 mg/dL (-99) 339 mg/dL (-) Test 09/13/18 11:41 09/13/18 12:34 09/13/18 13:30 09/13/18 16:54 Glucose (Fingerstick) 311 mg/dL (-99) 106 mg/dL (70-99) White Blood Count 10.0 x10^3/uL (4.0-11.0) Red Blood Count 2.35 x10^6/uL (3.50-5.40) Hemoglobin 7.2 g/dL (12.0-15.5) Hematocrit 21.9 % (36.0-47.0) Mean Corpuscular Volume 93 fL (79-100) Mean Corpuscular Hemoglobin 31 pg (25-35) Mean Corpuscular Hemoglobin Concent 33 g/dL (31-37) Red Cell Distribution Width 19.5 % (11.5-14.5) Platelet Count 97 x10^3/uL (140-400) Neutrophils (%) (Auto) 91 % (31-73) Lymphocytes (%) (Auto) 4 % (24-48) Monocytes (%) (Auto) 5 % (0-9) Eosinophils (%) (Auto) 0 % (0-3) Basophils (%) (Auto) 0 % (0-3) Neutrophils # (Auto) 9.1 x10^3uL (1.8-7.7) Lymphocytes # (Auto) 0.4 x10^3/uL (1.0-4.8) Monocytes # (Auto) 0.4 x10^3/uL (0.0-1.1) Eosinophils # (Auto) 0.0 x10^3/uL (0.0-0.7) Basophils # (Auto) 0.0 x10^3/uL (0.0-0.2) Erythrocyte Sedimentation Rate 6 (0-25) Sodium Level 137 mmol/L (136-145) Potassium Level 3.1 mmol/L (3.5-5.1) Chloride Level 100 mmol/L (98-107) Carbon Dioxide Level 20 mmol/L (21-32) Anion Gap 17 (6-14) Blood Urea Nitrogen 43 mg/dL (7-20) Creatinine 6.0 mg/dL (0.6-1.0) Estimated GFR (Cockcroft-Gault) 7.1 Glucose Level 297 mg/dL (70-99) Calcium Level 7.7 mg/dL (8.5-10.1) Lactate Dehydrogenase 236 U/L (81-234) Thyroid Stimulating Hormone (TSH) 4.654 uIU/mL (0.358-3.74) Free Thyroxine 1.16 ng/dL (0.76-1.46) Free Triiodothyronine (T3) pg/mL 0.57 pg/mL (2.18-3.98) Ammonia 187 mcmol/L (11-34) Test 09/13/18 20:29 09/14/18 02:48 09/14/18 07:48 Glucose (Fingerstick) 202 mg/dL (70-99) 264 mg/dL (70-99) 203 mg/dL (70-99) Laboratory Tests Test 09/13/18 11:25 09/13/18 11:41 09/13/18 12:34 09/13/18 13:30 Glucose (Fingerstick) 339 mg/dL (70-99) 311 mg/dL (70-99) White Blood Count 10.0 x10^3/uL (4.0-11.0) Red Blood Count 2.35 x10^6/uL (3.50-5.40) Hemoglobin 7.2 g/dL (12.0-15.5) Hematocrit 21.9 % (36.0-47.0) Mean Corpuscular Volume 93 fL (79-100) Mean Corpuscular Hemoglobin 31 pg (25-35) Mean Corpuscular Hemoglobin Concent 33 g/dL (31-37) Red Cell Distribution Width 19.5 % (11.5-14.5) Platelet Count 97 x10^3/uL (140-400) Neutrophils (%) (Auto) 91 % (31-73) Lymphocytes (%) (Auto) 4 % (24-48) Monocytes (%) (Auto) 5 % (0-9) Eosinophils (%) (Auto) 0 % (0-3) Basophils (%) (Auto) 0 % (0-3) Neutrophils # (Auto) 9.1 x10^3uL (1.8-7.7) Lymphocytes # (Auto) 0.4 x10^3/uL (1.0-4.8) Monocytes # (Auto) 0.4 x10^3/uL (0.0-1.1) Eosinophils # (Auto) 0.0 x10^3/uL (0.0-0.7) Basophils # (Auto) 0.0 x10^3/uL (0.0-0.2) Erythrocyte Sedimentation Rate 6 (0-25) Sodium Level 137 mmol/L (136-145) Potassium Level 3.1 mmol/L (3.5-5.1) Chloride Level 100 mmol/L (98-107) Carbon Dioxide Level 20 mmol/L (21-32) Anion Gap 17 (6-14) Blood Urea Nitrogen 43 mg/dL (7-20) Creatinine 6.0 mg/dL (0.6-1.0) Estimated GFR (Cockcroft-Gault) 7.1 Glucose Level 297 mg/dL (70-99) Calcium Level 7.7 mg/dL (8.5-10.1) Lactate Dehydrogenase 236 U/L (81-234) Thyroid Stimulating Hormone (TSH) 4.654 uIU/mL (0.358-3.74) Free Thyroxine 1.16 ng/dL (0.76-1.46) Free Triiodothyronine (T3) pg/mL 0.57 pg/mL (2.18-3.98) Ammonia 187 mcmol/L (11-34) Test 09/13/18 16:54 09/13/18 20:29 09/14/18 02:48 09/14/18 07:48 Glucose (Fingerstick) 106 mg/dL (70-99) 202 mg/dL (70-99) 264 mg/dL (70-99) 203 mg/dL (70-99) Medications Active Scripts Medications Dose Route/Sig Max Daily Dose Days Date Category Dose Instructions Midodrine Hcl 5 Mg Tablet 10 Mg PO [id number] 09/10/18 Rx Benadryl (Diphenhydramine Hcl) 25 Mg Capsule 25 Mg PO Q6HRS 08/12/18 Reported Calcium Acetate 667 Mg Tablet 667 Mg PO TIDWMEALS 07/03/18 Reported Dialyvite Tablet (Folic Acid/Vitamin B Comp W-C) 1 Each Tablet 1 Each PO DAILY 07/03/18 Reported Midodrine Hcl 5 Mg Tablet 5 Mg PO TID 06/25/18 Reported Cyclobenzaprine Hcl 5 Mg Tablet 1 Tab PO TID 06/10/18 Reported Omeprazole 40 Mg Capsule. 1 Cap PO DAILY 05/01/18 Reported Xifaxan (Rifaximin) 550 Mg Tablet 1 Tab PO BID 02/07/18 Reported Fusion Plus Capsule (Iron,Fum&Ps/Fa/Vit B&C#18/L.ca) 1 Each Capsule 1 Each PO 05/09/17 Reported Albuterol Sulfate Conc Neb Soln (Albuterol Sulfate) 2.5 Mg/0.5 Ml Vial.neb 2.5 Mg NEB Q6HRS PRN 08/03/15 Reported Lactulose 20 Gm/30 Ml Solution 20 Gm PO TID 08/03/15 Reported Lantus Solostar (Insulin Glargine,Hum.rec.anlog) 100 Unit/1 Ml Insuln.pen 0 SQ HS 06/10/13 Reported SSI Calcium + Vitamin D Tablet (Calcium Carbonate/Vitamin D3) 1 Each Tablet 1 Each PO 06/02/13 Reported Albuterol Sulfate Hfa Inhaler (Albuterol Sulfate) 8.5 Gm Hfa.aer.ad 8.5 Gm IH 06/02/13 Reported Novolog Flexpen (Insulin Aspart) 100 Unit/1 Ml Insuln.pen 0 SQ TIDAC 06/02/13 Reported ssi Synthroid (Levothyroxine Sodium) 25 Mcg Tablet 300 Mcg PO DAILY 06/02/13 Reported Flovent 110MCG Hfa (Fluticasone Propionate) 12 Gm Aer.w.adap 12 Gm IH 06/02/13 Reported Impression . IMPRESSION: 1. Dyspnea, multifactorial in etiology including a left pleural effusion, volume overload, ? CHF versus others. 2. Abnormal chest x-ray with left pleural effusion, I suspect this is secondary to her end-stage liver disease and end-stage renal disease. Other differential diagnosis including inflammatory, infectious and malignancy versus others. 3. Chronic obstructive pulmonary disease. 4. End-stage renal disease on hemodialysis. 5. End-stage liver disease, cirrhosis.. 6. Leukocytosis. 7. Anemia. 8. Thrombocytopenia. 9. Ex-smoker. Plan . PLAN AND RECOMMENDATIONS: 1. Titrate FiO2 to keep O2 saturation 92%. 2. Continue bronchodilator. 3. inhaled corticosteroid. 4. ultrasound-guided thoracentesis ordered to be done by IR. will send pleural fluid for total protein, LDH, glucose, cell count, cultures and cytology. I will send serum for total protein, glucose and LDH at the same time. 5. The procedure, risks and benefits of the procedure were discussed with the patient. 6. Monitor respiratory status very closely. 7. echo discussed w MYRANDA Underwood MD September 14, 2018 08:34
[2018-09-14] MEDS: IV NORMAL SALINE 1000ML BAG 1,000 ML IV SCH ×2 (08:36→18:45)
[2018-09-14] MEDS: ALBUTEROL SULFATE 2.5 MG/3 ML NEBU. NEB SCH ×4 (09:05→20:00)
--- NOTE | 2018-09-14 10:04 | PDOC ---
PROGRESS NOTES Chief Complaint Chief Complaint hypotension on midodrine Failure to thrive, generalized weakness-lives with a son but does not want any rehabilitation or SNU Moderate to large pleural effusion - IR thoracentesis ESRD on dialysis-, noncompliance, last dialysis during last hospitalization Anemia of ESRD History of recurrent ascites and recurrent paracentesis-she claims paracentesis every weekly Diabetes type 2, HON K with no coma-uncontrolled- Sinus tachycardia Thrombocytopenia, platelets is 139 with no bleeding History GERD-PPI Encephalopathy-chronic stable History of Present Illness History of Present Illness SHe is trying to curl her hair-she is not the best historian Called by RN yesterday 2 for hypotension Did need to start fluid and some bolus On midodrine 10mgs 3 times a day Patient claims symptoms with hypotension On Synthroid 300 and TSH is at goal-4 (was > 12 in mar) Ammonia slightly high 187 on rifaximin and lactulose Hemoglobin dropped to 7.2 from 9 after my fluids ESR mildly high No bleeding She has no complaints pulmonary note reviewed, IR thoracentesis of that moderate to large pleural effusion Plan Thoracentesis by IR Recheck H&H and BMP tomorrow Transfuse if hgb < 7 junior with hypotension Dialysis per renal Continue Synthroid, rifaximin, lactulose for the hyper ammonia and hypothyroidism She does not want to go to rehabilitation she wants To go back with the son at home Vitals Vitals Vital Signs Date Time Temp Pulse Resp B/P (MAP) Pulse Ox O2 Delivery O2 Flow Rate FiO2 09/14/18 09:06 Room Air 09/14/18 07:00 98.2 99 20 95/28 (50) 96 2.0 98.2 Physical Exam General: Alert, Oriented X3, Cooperative, No acute distress Heart: Regular rate, Normal S1, No murmurs Lungs: Clear, Crackles, Other (dull at l base) Abdomen: Normal bowel sounds, Soft, No tenderness, No hepatosplenomegaly, No masses Extremities: No clubbing, No cyanosis, No edema Skin: No rashes, No breakdown, No significant lesion Labs LABS Laboratory Tests Test 09/13/18 11:25 09/13/18 11:41 09/13/18 12:34 09/13/18 13:30 Glucose (Fingerstick) 339 mg/dL (70-99) 311 mg/dL (70-99) White Blood Count 10.0 x10^3/uL (4.0-11.0) Red Blood Count 2.35 x10^6/uL (3.50-5.40) Hemoglobin 7.2 g/dL (12.0-15.5) Hematocrit 21.9 % (36.0-47.0) Mean Corpuscular Volume 93 fL (79-100) Mean Corpuscular Hemoglobin 31 pg (25-35) Mean Corpuscular Hemoglobin Concent 33 g/dL (31-37) Red Cell Distribution Width 19.5 % (11.5-14.5) Platelet Count 97 x10^3/uL (140-400) Neutrophils (%) (Auto) 91 % (31-73) Lymphocytes (%) (Auto) 4 % (24-48) Monocytes (%) (Auto) 5 % (0-9) Eosinophils (%) (Auto) 0 % (0-3) Basophils (%) (Auto) 0 % (0-3) Neutrophils # (Auto) 9.1 x10^3uL (1.8-7.7) Lymphocytes # (Auto) 0.4 x10^3/uL (1.0-4.8) Monocytes # (Auto) 0.4 x10^3/uL (0.0-1.1) Eosinophils # (Auto) 0.0 x10^3/uL (0.0-0.7) Basophils # (Auto) 0.0 x10^3/uL (0.0-0.2) Erythrocyte Sedimentation Rate 6 (0-25) Sodium Level 137 mmol/L (136-145) Potassium Level 3.1 mmol/L (3.5-5.1) Chloride Level 100 mmol/L (98-107) Carbon Dioxide Level 20 mmol/L (21-32) Anion Gap 17 (6-14) Blood Urea Nitrogen 43 mg/dL (7-20) Creatinine 6.0 mg/dL (0.6-1.0) Estimated GFR (Cockcroft-Gault) 7.1 Glucose Level 297 mg/dL (70-99) Calcium Level 7.7 mg/dL (8.5-10.1) Lactate Dehydrogenase 236 U/L (81-234) Thyroid Stimulating Hormone (TSH) 4.654 uIU/mL (0.358-3.74) Free Thyroxine 1.16 ng/dL (0.76-1.46) Free Triiodothyronine (T3) pg/mL 0.57 pg/mL (2.18-3.98) Ammonia 187 mcmol/L (11-34) Test 09/13/18 16:54 09/13/18 20:29 09/14/18 02:48 09/14/18 07:48 Glucose (Fingerstick) 106 mg/dL (70-99) 202 mg/dL (70-99) 264 mg/dL (70-99) 203 mg/dL (70-99) Review of Systems Review of Systems A 14 point ROS was completed with the following noted as positive: Other systems reviewed and negative. \CONSTITUTIONAL: No fever or chills EYES: No recent changes SKIN: No rash or itching CARDIOVASCULAR: No chest pain, syncope, palpitations, or edema RESPIRATORY: No SOB or cough GASTROINTESTINAL: No nausea, vomiting or abdominal pain NEUROLOGICAL: No headaches or weakness ENDOCRINE: No cold or heat intolerance GENITOURINARY: No urgency or frequency of urination MUSCULOSKELETAL: No back pain or joint pain LYMPHATICS: No enlarged lymph nodes PSYCHIATRIC: No anxiety or depression Assessment and Plan Assessmemt and Plan Problems Medical Problems: (1) Fall Status: Acute (2) Left knee pain Status: Acute Comment Review of Relevant I have reviewed the following items chante (where applicable) has been applied. Labs Laboratory Tests Test 09/12/18 17:50 09/12/18 20:19 09/13/18 08:21 09/13/18 11:25 White Blood Count 12.7 x10^3/uL (4.0-11.0) Red Blood Count 3.04 x10^6/uL (3.50-5.40) Hemoglobin 9.1 g/dL (12.0-15.5) Hematocrit 28.2 % (36.0-47.0) Mean Corpuscular Volume 93 fL (79-100) Mean Corpuscular Hemoglobin 30 pg (25-35) Mean Corpuscular Hemoglobin Concent 32 g/dL (31-37) Red Cell Distribution Width 19.3 % (11.5-14.5) Platelet Count 139 x10^3/uL (140-400) Neutrophils (%) (Auto) 85 % (31-73) Lymphocytes (%) (Auto) 4 % (24-48) Monocytes (%) (Auto) 10 % (0-9) Eosinophils (%) (Auto) 0 % (0-3) Basophils (%) (Auto) 1 % (0-3) Neutrophils # (Auto) 10.9 x10^3uL (1.8-7.7) Lymphocytes # (Auto) 0.4 x10^3/uL (1.0-4.8) Monocytes # (Auto) 1.3 x10^3/uL (0.0-1.1) Eosinophils # (Auto) 0.0 x10^3/uL (0.0-0.7) Basophils # (Auto) 0.1 x10^3/uL (0.0-0.2) Segmented Neutrophils % 91 % (35-66) Lymphocytes % 3 % (24-48) Monocytes % 6 % (0-10) Platelet Estimate Adequate (ADEQUATE) Polychromasia Slight Anisocytosis Slight Schistocytes Occ Sodium Level 136 mmol/L (136-145) Potassium Level 3.9 mmol/L (3.5-5.1) Chloride Level 94 mmol/L (98-107) Carbon Dioxide Level 22 mmol/L (21-32) Anion Gap 20 (6-14) Blood Urea Nitrogen 39 mg/dL (7-20) Creatinine 5.9 mg/dL (0.6-1.0) Estimated GFR (Cockcroft-Gault) 7.3 BUN/Creatinine Ratio 7 (6-20) Glucose Level 243 mg/dL (70-99) Calcium Level 8.9 mg/dL (8.5-10.1) Magnesium Level 1.9 mg/dL (1.8-2.4) Total Bilirubin 2.6 mg/dL (0.2-1.0) Aspartate Amino Transf (AST/SGOT) 33 U/L (15-37) Alanine Aminotransferase (ALT/SGPT) 17 U/L (14-59) Alkaline Phosphatase 201 U/L (46-116) Troponin I Quantitative 0.025 ng/mL (0.000-0.055) LJ-Zxy-N-Type Natriuretic Peptide 7413 pg/mL (0-124) Total Protein 5.9 g/dL (6.4-8.2) Albumin 3.3 g/dL (3.4-5.0) Albumin/Globulin Ratio 1.3 (1.0-1.7) Glucose (Fingerstick) 227 mg/dL (70-99) 330 mg/dL (70-99) 339 mg/dL (70-99) Test 09/13/18 11:41 09/13/18 12:34 09/13/18 13:30 09/13/18 16:54 Glucose (Fingerstick) 311 mg/dL (70-99) 106 mg/dL (70-99) White Blood Count 10.0 x10^3/uL (4.0-11.0) Red Blood Count 2.35 x10^6/uL (3.50-5.40) Hemoglobin 7.2 g/dL (12.0-15.5) Hematocrit 21.9 % (36.0-47.0) Mean Corpuscular Volume 93 fL (79-100) Mean Corpuscular Hemoglobin 31 pg (25-35) Mean Corpuscular Hemoglobin Concent 33 g/dL (31-37) Red Cell Distribution Width 19.5 % (11.5-14.5) Platelet Count 97 x10^3/uL (140-400) Neutrophils (%) (Auto) 91 % (31-73) Lymphocytes (%) (Auto) 4 % (24-48) Monocytes (%) (Auto) 5 % (0-9) Eosinophils (%) (Auto) 0 % (0-3) Basophils (%) (Auto) 0 % (0-3) Neutrophils # (Auto) 9.1 x10^3uL (1.8-7.7) Lymphocytes # (Auto) 0.4 x10^3/uL (1.0-4.8) Monocytes # (Auto) 0.4 x10^3/uL (0.0-1.1) Eosinophils # (Auto) 0.0 x10^3/uL (0.0-0.7) Basophils # (Auto) 0.0 x10^3/uL (0.0-0.2) Erythrocyte Sedimentation Rate 6 (0-25) Sodium Level 137 mmol/L (136-145) Potassium Level 3.1 mmol/L (3.5-5.1) Chloride Level 100 mmol/L (98-107) Carbon Dioxide Level 20 mmol/L (21-32) Anion Gap 17 (6-14) Blood Urea Nitrogen 43 mg/dL (7-20) Creatinine 6.0 mg/dL (0.6-1.0) Estimated GFR (Cockcroft-Gault) 7.1 Glucose Level 297 mg/dL (70-99) Calcium Level 7.7 mg/dL (8.5-10.1) Lactate Dehydrogenase 236 U/L (81-234) Thyroid Stimulating Hormone (TSH) 4.654 uIU/mL (0.358-3.74) Free Thyroxine 1.16 ng/dL (0.76-1.46) Free Triiodothyronine (T3) pg/mL 0.57 pg/mL (2.18-3.98) Ammonia 187 mcmol/L (11-34) Test 09/13/18 20:29 09/14/18 02:48 09/14/18 07:48 Glucose (Fingerstick) 202 mg/dL (70-99) 264 mg/dL (70-99) 203 mg/dL (70-99) Laboratory Tests Test 09/13/18 11:25 09/13/18 11:41 09/13/18 12:34 09/13/18 13:30 Glucose (Fingerstick) 339 mg/dL (70-99) 311 mg/dL (70-99) White Blood Count 10.0 x10^3/uL (4.0-11.0) Red Blood Count 2.35 x10^6/uL (3.50-5.40) Hemoglobin 7.2 g/dL (12.0-15.5) Hematocrit 21.9 % (36.0-47.0) Mean Corpuscular Volume 93 fL (79-100) Mean Corpuscular Hemoglobin 31 pg (25-35) Mean Corpuscular Hemoglobin Concent 33 g/dL (31-37) Red Cell Distribution Width 19.5 % (11.5-14.5) Platelet Count 97 x10^3/uL (140-400) Neutrophils (%) (Auto) 91 % (31-73) Lymphocytes (%) (Auto) 4 % (24-48) Monocytes (%) (Auto) 5 % (0-9) Eosinophils (%) (Auto) 0 % (0-3) Basophils (%) (Auto) 0 % (0-3) Neutrophils # (Auto) 9.1 x10^3uL (1.8-7.7) Lymphocytes # (Auto) 0.4 x10^3/uL (1.0-4.8) Monocytes # (Auto) 0.4 x10^3/uL (0.0-1.1) Eosinophils # (Auto) 0.0 x10^3/uL (0.0-0.7) Basophils # (Auto) 0.0 x10^3/uL (0.0-0.2) Erythrocyte Sedimentation Rate 6 (0-25) Sodium Level 137 mmol/L (136-145) Potassium Level 3.1 mmol/L (3.5-5.1) Chloride Level 100 mmol/L (98-107) Carbon Dioxide Level 20 mmol/L (21-32) Anion Gap 17 (6-14) Blood Urea Nitrogen 43 mg/dL (7-20) Creatinine 6.0 mg/dL (0.6-1.0) Estimated GFR (Cockcroft-Gault) 7.1 Glucose Level 297 mg/dL (70-99) Calcium Level 7.7 mg/dL (8.5-10.1) Lactate Dehydrogenase 236 U/L (81-234) Thyroid Stimulating Hormone (TSH) 4.654 uIU/mL (0.358-3.74) Free Thyroxine 1.16 ng/dL (0.76-1.46) Free Triiodothyronine (T3) pg/mL 0.57 pg/mL (2.18-3.98) Ammonia 187 mcmol/L (11-34) Test 09/13/18 16:54 09/13/18 20:29 09/14/18 02:48 09/14/18 07:48 Glucose (Fingerstick) 106 mg/dL (70-99) 202 mg/dL (70-99) 264 mg/dL (70-99) 203 mg/dL (70-99) Medications Current Medications Fentanyl Citrate (Fentanyl 2ml Vial) 50 mcg 1X ONCE IV Last administered on 09/12/18at 18:15; Start 09/12/18 at 17:45; Stop 09/12/18 at 17:46; Status DC Ondansetron HCl (Zofran) 4 mg PRN Q8HRS PRN IV NAUSEA/VOMITING; Start 09/12/18 at 19:00; Stop 09/13/18 at 07:50; Status DC Fentanyl Citrate (Fentanyl 2ml Vial) 50 mcg PRN Q1HR PRN IV PAIN Last administered on 09/12/18at 19:12; Start 09/12/18 at 19:00; Stop 09/13/18 at 18:59; Status DC Diphenhydramine HCl (Benadryl) 25 mg Q6HRS PO Last administered on 09/14/18at 06:26; Start 09/13/18 at 00:00; Stop 09/14/18 at 08:37; Status DC Lactulose (Lactulose) 20 gm TID PO Last administered on 09/13/18at 17:38; Start 09/12/18 at 21:00 Calcium Acetate (Phoslo) 667 mg TIDWMEALS PO Last administered on 09/14/18at 08:03; Start 09/13/18 at 08:00 Cyclobenzaprine HCl (Flexeril) 5 mg TID PO Last administered on 09/14/18at 08:04; Start 09/12/18 at 21:15; Stop 09/14/18 at 08:37; Status DC Vitamin B Complex/ Vitamin C (Tasia-Meliton) 1 tab DAILY PO Last administered on 09/14/18at 08:02; Start 09/13/18 at 09:00 Levothyroxine Sodium (Synthroid) 300 mcg DAILY06 PO Last administered on 09/14/18at 06:26; Start 09/13/18 at 06:00 Midodrine (Proamatine) 5 mg [id number] PO ; Start 09/13/18 at 07:00; Stop 09/13/18 at 07:00; Status DC Pantoprazole Sodium (Protonix) 40 mg DAILYAC PO Last administered on 09/14/18at 06:30; Start 09/13/18 at 07:30 Sodium Chloride 750 ml @ 375 mls/hr 1X ONCE IV Last administered on 09/12/18at 21:53; Start 09/12/18 at 21:30; Stop 09/12/18 at 23:29; Status DC Midodrine (Proamatine) 5 mg [id number] PO Last administered on 09/12/18at 21:55; Start 09/12/18 at 22:00; Stop 09/13/18 at 07:54; Status DC Ondansetron HCl (Zofran) 4 mg PRN Q6HRS PRN IV NAUSEA/VOMITING; Start 09/13/18 at 08:00 Fentanyl Citrate (Fentanyl 2ml Vial) 25 mcg PRN Q2HR PRN IV PAIN; Start 09/13/18 at 08:00 Albuterol Sulfate (Ventolin Hfa) 2.5 puff QID IH ; Start 09/13/18 at 09:00; Status UNV Rifaximin (Xifaxan) 550 mg BID PO Last administered on 09/14/18at 08:03; Start 09/13/18 at 09:00 Albuterol Sulfate (Ventolin Neb Soln) 2.5 mg PRN Q6HRS PRN NEB SHORTNESS OF BREATH; Start 09/13/18 at 08:00 Midodrine (Proamatine) 10 mg [id number] PO Last administered on 09/14/18at 06:30; Start 09/13/18 at 08:00 Albuterol Sulfate (Ventolin Neb Soln) 2.5 mg RTQID NEB Last administered on 09/14/18at 09:05; Start 09/13/18 at 09:00 Budesonide (Pulmicort) 0.5 mg RTBID NEB Last administered on 09/14/18at 08:00; Start 09/13/18 at 20:00 Budesonide (Pulmicort) 0.5 mg 1X ONCE NEB Last administered on 09/13/18at 13:01; Start 09/13/18 at 08:45; Stop 09/13/18 at 08:46; Status DC Insulin Human Lispro (HumaLOG) 15 units 1X ONCE SQ Last administered on 09/13/18at 10:02; Start 09/13/18 at 09:30; Stop 09/13/18 at 09:31; Status DC Insulin Glargine (Lantus) 20 units QHS SQ Last administered on 09/13/18at 21:19; Start 09/13/18 at 21:00 Insulin Human Lispro (HumaLOG) 0-9 UNITS TIDWMEALS SQ Last administered on 09/14/18 08:09; Start 09/13/18 at 12:00 Dextrose (Dextrose 50%-Water Syringe) 12.5 gm PRN Q15MIN PRN IV SEE COMMENTS; Start 09/13/18 at 09:15 Insulin Human Lispro (HumaLOG) 10 units TIDWMEALS SQ Last administered on 09/14/18at 08:10; Start 09/13/18 at 12:00 Sodium Chloride 1,000 ml @ 100 mls/hr Q10H IV Last administered on 09/14/18at 08:36; Start 09/13/18 at 12:15 Sodium Chloride 500 ml @ 500 mls/hr 1X ONCE IV Last administered on 09/13/18at 12:22; Start 09/13/18 at 12:15; Stop 09/13/18 at 13:14; Status DC Sodium Chloride 1,000 ml @ 1,000 mls/hr Q1H PRN IV hypotension; Start 09/13/18 at 13:20; Stop 09/13/18 at 19:19; Status DC Albumin Human 200 ml @ 200 mls/hr 1X PRN PRN IV Hypotension Last administered on 09/13/18at 13:45; Start 09/13/18 at 13:30; Stop 09/13/18 at 19:29; Status DC Sodium Chloride 1,000 ml @ 400 mls/hr Q2H30M PRN IV PATENCY; Start 09/13/18 at 13:20; Stop 09/14/18 at 01:19; Status DC Info (PHARMACY MONITORING -- do not chart) 1 each PRN DAILY PRN MC SEE COMMENTS; Start 09/13/18 at 13:30; Status UNV Info (PHARMACY MONITORING -- do not chart) 1 each PRN DAILY PRN MC SEE COMMENTS; Start 09/13/18 at 13:30 Active Scripts Active Midodrine Hcl 5 Mg Tablet 10 Mg PO [id number] Days Reported Benadryl (Diphenhydramine Hcl) 25 Mg Capsule 25 Mg PO Q6HRS Calcium Acetate 667 Mg Tablet 667 Mg PO TIDWMEALS Dialyvite Tablet (Folic Acid/Vitamin B Comp W-C) 1 Each Tablet 1 Each PO DAILY Midodrine Hcl 5 Mg Tablet 5 Mg PO TID Cyclobenzaprine Hcl 5 Mg Tablet 1 Tab PO TID Omeprazole 40 Mg Capsule. 1 Cap PO DAILY Xifaxan (Rifaximin) 550 Mg Tablet 1 Tab PO BID Fusion Plus Capsule (Iron,Fum&Ps/Fa/Vit B&C#18/L.ca) 1 Each Capsule 1 Each PO Albuterol Sulfate Conc Neb Soln (Albuterol Sulfate) 2.5 Mg/0.5 Ml Vial.neb 2.5 Mg NEB Q6HRS PRN Lactulose 20 Gm/30 Ml Solution 20 Gm PO TID Lantus Solostar (Insulin Glargine,Hum.rec.anlog) 100 Unit/1 Ml Insuln.pen 0 SQ HS SSI Calcium + Vitamin D Tablet (Calcium Carbonate/Vitamin D3) 1 Each Tablet 1 Each PO Albuterol Sulfate Hfa Inhaler (Albuterol Sulfate) 8.5 Gm Hfa.aer.ad 8.5 Gm IH Novolog Flexpen (Insulin Aspart) 100 Unit/1 Ml Insuln.pen 0 SQ TIDAC ssi Synthroid (Levothyroxine Sodium) 25 Mcg Tablet 300 Mcg PO DAILY Flovent 110MCG Hfa (Fluticasone Propionate) 12 Gm Aer.w.adap 12 Gm IH Vitals/I & O Vital Sign - Last 24 Hours 09/13/18 09/13/18 09/13/18 09/13/18 11:00 11:46 13:05 15:40 Temp 98.9 98.9 Pulse 97 97 Resp 15 B/P (MAP) 87/30 (49) 85/24 Pulse Ox 96 96 O2 Delivery Room Air Room Air Room Air 09/13/18 09/13/18 09/13/18 09/13/18 17:38 19:00 20:05 23:00 Temp 97.2 98.2 97.2 98.2 Pulse 97 103 103 Resp 18 22 B/P (MAP) /24 97/27 (50) 85/31 (49) Pulse Ox 93 94 O2 Delivery Nasal Cannula Nasal Cannula Nasal Cannula O2 Flow Rate 2.0 2.0 2.0 09/14/18 09/14/18 09/14/18 09/14/18 03:00 06:30 07:00 09:06 Temp 98.3 98.2 98.3 98.2 Pulse 101 101 99 Resp 20 20 B/P (MAP) 91/29 (49) 91/29 95/28 (50) Pulse Ox 97 96 O2 Delivery Nasal Cannula Room Air O2 Flow Rate 2.0 2.0 Intake and Output 09/13/18 09/13/18 09/14/18 15:00 23:00 07:00 Intake Total 260 ml 440 ml Output Total 200 ml 1 ml Balance 60 ml 439 ml ABE RIVER MD September 14, 2018 10:04
[2018-09-14 11:00] VITALS: BP 112/46
--- NOTE | 2018-09-14 14:58 | EKG ---
[facility] [address] [place] [address] Test Date: 2018-09-12 Test Time: 17:22:47 Pat Name: YANIRA BRAVO Department: Room: Gender: F Director Appointment: : [id number] Requested By: KOLE AKERS Order Number: [id number] Reading MD: Measurements Intervals [place] Rate: 113 P: 38 [place]: 138 QRS: 33 QRSD: 76 T: 27 QT: 358 QTc: 497 Interpretive Statements SINUS TACHYCARDIA LOW LIMB LEAD VOLTAGE QRS(T) CONTOUR ABNORMALITY CONSIDER ANTERIOR INFARCT POSSIBLY ABNORMAL ECG No previous ECG available for comparison
[2018-09-14 15:00] VITALS: BP 98/40
[2018-09-14 19:00] VITALS: BP 105/30
[2018-09-14] MEDS: INSULIN GLARGINE 300 UNITS/3 ML INSULN.PEN. SQ SCH (20:29)
[2018-09-14 23:00] VITALS: BP 101/30
[2018-09-15] MEDS: IV NORMAL SALINE 1000ML BAG 1,000 ML IV SCH (05:14)
[2018-09-15] MEDS: LEVOTHYROXINE 150 MCG TABLET PO SCH (06:00)
[2018-09-15 07:00] VITALS: BP 96/34
[2018-09-15] MEDS: ALBUTEROL SULFATE 2.5 MG/3 ML NEBU. NEB SCH ×4 (07:12→20:07)
[2018-09-15] MEDS: BUDESONIDE 0.5 MG/2 ML NEBU. NEB SCH ×2 (07:12→20:07)
[2018-09-15] MEDS: PANTOPRAZOLE 40 MG TABLET.DR. PO SCH (07:30)
[2018-09-15] MEDS: INSULIN LISPRO 300 UNITS/3 ML INSULN.PEN. SQ SCH ×8 (07:44→17:16)
[2018-09-15] MEDS: LACTULOSE 20 GM/30 ML SOLUTION. PO SCH ×3 (07:44→21:00)
[2018-09-15] MEDS: FOLIC/VIT B COMP W-C (RENAL) TABLET. PO SCH (07:44)
[2018-09-15] MEDS: CALCIUM ACETATE 667 MG CAPSULE PO SCH ×3 (07:44→17:04)
[2018-09-15] MEDS: rifAXIMin 550 MG TABLET PO SCH ×2 (07:45→21:01)
[2018-09-15] MEDS: MIDODRINE 5 MG TABLET PO SCH ×4 (08:09→17:04)
[2018-09-15] MEDS ORDERED: IV NORMAL SALINE 1000ML BAG 1,000 ML IV PRN ×2 (09:05→09:45)
[2018-09-15] MEDS ORDERED: 0.9 % SODIUM CHLORIDE 10 ML DISP.SYRIN. IV PRN ×2 (09:15)
[2018-09-15] MEDS ORDERED: DIALYSIS PATIENT. MC PRN ×2 (09:15)
--- NOTE | 2018-09-15 09:37 | PDOC ---
PROGRESS NOTES Chief Complaint Chief Complaint hypotension on midodrine Failure to thrive, generalized weakness-lives with a son but does not want any rehabilitation or SNU Moderate to large pleural effusion - IR thoracentesis ESRD on dialysis-, noncompliance, last dialysis during last hospitalization Anemia of ESRD History of recurrent ascites and recurrent paracentesis-she claims paracentesis every weekly Diabetes type 2, HON K with no coma-uncontrolled- Sinus tachycardia Thrombocytopenia, platelets is 139 with no bleeding History GERD-PPI Encephalopathy-chronic stable History of Present Illness History of Present Illness SHe is asleep - I did not wake Pulmonary has ordered ultrasound-guided thoracentesis-I am unsure if this will be done on the holiday Saturday Otherwise hemodynamically and respiratory stable, not in distress On synthroid 300mcg and TSH is at goal On midodrine 10mgs 3 times a day because she does get hypotensive needing bolus and IV fluids past 2 days Plan: Has been nothing by mouth for thoracentesis body fluid levels already ordered fort thoracentesis Watch out for further hypotension Dialysis per renal Bolus when necessary Discussed with RN Vitals Vitals Vital Signs Date Time Temp Pulse Resp B/P (MAP) Pulse Ox O2 Delivery O2 Flow Rate FiO2 09/15/18 08:09 99 96/34 09/15/18 08:00 Room Air 09/15/18 07:16 96 09/15/18 07:00 98.4 18 98.4 09/14/18 15:00 2.0 Physical Exam General: Alert, Oriented X3, Cooperative, No acute distress Heart: Regular rate, Normal S1, No murmurs Lungs: Crackles, Other (dull at l base) Abdomen: Normal bowel sounds, Soft, No tenderness, No hepatosplenomegaly, No masses Extremities: No clubbing, No cyanosis, No edema Skin: No rashes, No breakdown, No significant lesion Labs LABS Laboratory Tests Test 09/14/18 11:40 09/14/18 17:11 09/14/18 20:26 09/15/18 07:27 Glucose (Fingerstick) 182 mg/dL (70-99) 173 mg/dL (70-99) 279 mg/dL (70-99) 302 mg/dL (70-99) Review of Systems Review of Systems A 14 point ROS was completed with the following noted as positive: Other systems reviewed and negative. \CONSTITUTIONAL: No fever or chills EYES: No recent changes SKIN: No rash or itching CARDIOVASCULAR: No chest pain, syncope, palpitations, or edema RESPIRATORY: No SOB or cough GASTROINTESTINAL: No nausea, vomiting or abdominal pain NEUROLOGICAL: No headaches or weakness ENDOCRINE: No cold or heat intolerance GENITOURINARY: No urgency or frequency of urination MUSCULOSKELETAL: No back pain or joint pain LYMPHATICS: No enlarged lymph nodes PSYCHIATRIC: No anxiety or depression Assessment and Plan Assessmemt and Plan Problems Medical Problems: (1) Fall Status: Acute (2) Left knee pain Status: Acute Comment Review of Relevant I have reviewed the following items chante (where applicable) has been applied. Labs Laboratory Tests Test 09/13/18 11:25 09/13/18 11:41 09/13/18 12:34 09/13/18 13:30 Glucose (Fingerstick) 339 mg/dL (70-99) 311 mg/dL (70-99) White Blood Count 10.0 x10^3/uL (4.0-11.0) Red Blood Count 2.35 x10^6/uL (3.50-5.40) Hemoglobin 7.2 g/dL (12.0-15.5) Hematocrit 21.9 % (36.0-47.0) Mean Corpuscular Volume 93 fL (79-100) Mean Corpuscular Hemoglobin 31 pg (25-35) Mean Corpuscular Hemoglobin Concent 33 g/dL (31-37) Red Cell Distribution Width 19.5 % (11.5-14.5) Platelet Count 97 x10^3/uL (140-400) Neutrophils (%) (Auto) 91 % (31-73) Lymphocytes (%) (Auto) 4 % (24-48) Monocytes (%) (Auto) 5 % (0-9) Eosinophils (%) (Auto) 0 % (0-3) Basophils (%) (Auto) 0 % (0-3) Neutrophils # (Auto) 9.1 x10^3uL (1.8-7.7) Lymphocytes # (Auto) 0.4 x10^3/uL (1.0-4.8) Monocytes # (Auto) 0.4 x10^3/uL (0.0-1.1) Eosinophils # (Auto) 0.0 x10^3/uL (0.0-0.7) Basophils # (Auto) 0.0 x10^3/uL (0.0-0.2) Erythrocyte Sedimentation Rate 6 (0-25) Sodium Level 137 mmol/L (136-145) Potassium Level 3.1 mmol/L (3.5-5.1) Chloride Level 100 mmol/L (98-107) Carbon Dioxide Level 20 mmol/L (21-32) Anion Gap 17 (6-14) Blood Urea Nitrogen 43 mg/dL (7-20) Creatinine 6.0 mg/dL (0.6-1.0) Estimated GFR (Cockcroft-Gault) 7.1 Glucose Level 297 mg/dL (70-99) Calcium Level 7.7 mg/dL (8.5-10.1) Lactate Dehydrogenase 236 U/L (81-234) Thyroid Stimulating Hormone (TSH) 4.654 uIU/mL (0.358-3.74) Free Thyroxine 1.16 ng/dL (0.76-1.46) Free Triiodothyronine (T3) pg/mL 0.57 pg/mL (2.18-3.98) Ammonia 187 mcmol/L (11-34) Test 09/13/18 16:54 09/13/18 20:29 09/14/18 02:48 09/14/18 07:48 Glucose (Fingerstick) 106 mg/dL (70-99) 202 mg/dL (70-99) 264 mg/dL (70-99) 203 mg/dL (70-99) Test 09/14/18 11:40 09/14/18 17:11 09/14/18 20:26 09/15/18 07:27 Glucose (Fingerstick) 182 mg/dL (70-99) 173 mg/dL (70-99) 279 mg/dL (70-99) 302 mg/dL (70-99) Laboratory Tests Test 09/14/18 11:40 09/14/18 17:11 09/14/18 20:26 09/15/18 07:27 Glucose (Fingerstick) 182 mg/dL (70-99) 173 mg/dL (70-99) 279 mg/dL (70-99) 302 mg/dL (70-99) Medications Current Medications Fentanyl Citrate (Fentanyl 2ml Vial) 50 mcg 1X ONCE IV Last administered on 09/12/18 18:15; Start 09/12/18 at 17:45; Stop 09/12/18 at 17:46; Status DC Ondansetron HCl (Zofran) 4 mg PRN Q8HRS PRN IV NAUSEA/VOMITING; Start 09/12/18 at 19:00; Stop 09/13/18 at 07:50; Status DC Fentanyl Citrate (Fentanyl 2ml Vial) 50 mcg PRN Q1HR PRN IV PAIN Last administered on 09/12/18at 19:12; Start 09/12/18 at 19:00; Stop 09/13/18 at 18:59; Status DC Diphenhydramine HCl (Benadryl) 25 mg Q6HRS PO Last administered on 09/14/18 06:26; Start 09/13/18 at 00:00; Stop 09/14/18 at 08:37; Status DC Lactulose (Lactulose) 20 gm TID PO Last administered on 09/14/18 18:11; Start 09/12/18 at 21:00 Calcium Acetate (Phoslo) 667 mg TIDWMEALS PO Last administered on 09/14/18 08:03; Start 09/13/18 at 08:00 Cyclobenzaprine HCl (Flexeril) 5 mg TID PO Last administered on 09/14/18 08:04; Start 09/12/18 at 21:15; Stop 09/14/18 at 08:37; Status DC Vitamin B Complex/ Vitamin C (Tasia-Meliton) 1 tab DAILY PO Last administered on 09/14/18 08:02; Start 09/13/18 at 09:00 Levothyroxine Sodium (Synthroid) 300 mcg DAILY06 PO Last administered on 09/14/18 06:26; Start 09/13/18 at 06:00 Midodrine (Proamatine) 5 mg [id number] PO ; Start 09/13/18 at 07:00; Stop 09/13/18 at 07:00; Status DC Pantoprazole Sodium (Protonix) 40 mg DAILYAC PO Last administered on 09/14/18 06:30; Start 09/13/18 at 07:30 Sodium Chloride 750 ml @ 375 mls/hr 1X ONCE IV Last administered on 09/12/18at 21:53; Start 09/12/18 at 21:30; Stop 09/12/18 at 23:29; Status DC Midodrine (Proamatine) 5 mg [id number] PO Last administered on 09/12/18at 21:55; Start 09/12/18 at 22:00; Stop 09/13/18 at 07:54; Status DC Ondansetron HCl (Zofran) 4 mg PRN Q6HRS PRN IV NAUSEA/VOMITING; Start 09/13/18 at 08:00 Fentanyl Citrate (Fentanyl 2ml Vial) 25 mcg PRN Q2HR PRN IV PAIN; Start 09/13/18 at 08:00 Albuterol Sulfate (Ventolin Hfa) 2.5 puff QID IH ; Start 09/13/18 at 09:00; Status UNV Rifaximin (Xifaxan) 550 mg BID PO Last administered on 09/14/18at 20:27; Start 09/13/18 at 09:00 Albuterol Sulfate (Ventolin Neb Soln) 2.5 mg PRN Q6HRS PRN NEB SHORTNESS OF BREATH; Start 09/13/18 at 08:00 Midodrine (Proamatine) 10 mg [id number] PO Last administered on 09/15/18at 08:09; Start 09/13/18 at 08:00 Albuterol Sulfate (Ventolin Neb Soln) 2.5 mg RTQID NEB Last administered on 09/15/18at 07:12; Start 09/13/18 at 09:00 Budesonide (Pulmicort) 0.5 mg RTBID NEB Last administered on 09/15/18at 07:12; Start 09/13/18 at 20:00 Budesonide (Pulmicort) 0.5 mg 1X ONCE NEB Last administered on 09/13/18at 13:01; Start 09/13/18 at 08:45; Stop 09/13/18 at 08:46; Status DC Insulin Human Lispro (HumaLOG) 15 units 1X ONCE SQ Last administered on 09/13/18at 10:02; Start 09/13/18 at 09:30; Stop 09/13/18 at 09:31; Status DC Insulin Glargine (Lantus) 20 units QHS SQ Last administered on 09/14/18at 20:29; Start 09/13/18 at 21:00 Insulin Human Lispro (HumaLOG) 0-9 UNITS TIDWMEALS SQ Last administered on 09/15/18at 08:17; Start 09/13/18 at 12:00 Dextrose (Dextrose 50%-Water Syringe) 12.5 gm PRN Q15MIN PRN IV SEE COMMENTS; Start 09/13/18 at 09:15 Insulin Human Lispro (HumaLOG) 10 units TIDWMEALS SQ Last administered on 09/14/18at 18:30; Start 09/13/18 at 12:00 Sodium Chloride 1,000 ml @ 100 mls/hr Q10H IV Last administered on 09/15/18at 05:14; Start 09/13/18 at 12:15 Sodium Chloride 500 ml @ 500 mls/hr 1X ONCE IV Last administered on 09/13/18at 12:22; Start 09/13/18 at 12:15; Stop 09/13/18 at 13:14; Status DC Sodium Chloride 1,000 ml @ 1,000 mls/hr Q1H PRN IV hypotension; Start 09/13/18 at 13:20; Stop 09/13/18 at 19:19; Status DC Albumin Human 200 ml @ 200 mls/hr 1X PRN PRN IV Hypotension Last administered on 09/13/18at 13:45; Start 09/13/18 at 13:30; Stop 09/13/18 at 19:29; Status DC Sodium Chloride 1,000 ml @ 400 mls/hr Q2H30M PRN IV PATENCY; Start 09/13/18 at 13:20; Stop 09/14/18 at 01:19; Status DC Info (PHARMACY MONITORING -- do not chart) 1 each PRN DAILY PRN MC SEE COMMENTS; Start 09/13/18 at 13:30; Status UNV Info (PHARMACY MONITORING -- do not chart) 1 each PRN DAILY PRN MC SEE COMMENTS; Start 09/13/18 at 13:30 Sodium Chloride 1,000 ml @ 1,000 mls/hr Q1H PRN IV hypotension; Start 09/15/18 at 09:05; Stop 09/15/18 at 15:04 Sodium Chloride (Normal Saline Flush) 10 ml 1X PRN PRN IV AP catheter pack; S tart 09/15/18 at 09:15; Stop 09/16/18 at 09:14 Sodium Chloride (Normal Saline Flush) 10 ml 1X PRN PRN IV [employer] catheter pack; Start 09/15/18 at 09:15; Stop 09/16/18 at 09:14 Info (PHARMACY MONITORING -- do not chart) 1 each PRN DAILY PRN MC SEE COMMENTS; Start 09/15/18 at 09:15; Stop 09/15/18 at 09:15; Status DC Info (PHARMACY MONITORING -- do not chart) 1 each PRN DAILY PRN MC SEE COMMENTS; Start 09/15/18 at 09:15; Stop 09/15/18 at 09:15; Status DC Active Scripts Active Midodrine Hcl 5 Mg Tablet 10 Mg PO [id number] 14 Days Reported Benadryl (Diphenhydramine Hcl) 25 Mg Capsule 25 Mg PO Q6HRS Calcium Acetate 667 Mg Tablet 667 Mg PO TIDWMEALS Dialyvite Tablet (Folic Acid/Vitamin B Comp W-C) 1 Each Tablet 1 Each PO DAILY Midodrine Hcl 5 Mg Tablet 5 Mg PO TID Cyclobenzaprine Hcl 5 Mg Tablet 1 Tab PO TID Omeprazole 40 Mg Capsule.dr 1 Cap PO DAILY Xifaxan (Rifaximin) 550 Mg Tablet 1 Tab PO BID Fusion Plus Capsule (Iron,Fum&Ps/Fa/Vit B&C#18/L.ca) 1 Each Capsule 1 Each PO Albuterol Sulfate Conc Neb Soln (Albuterol Sulfate) 2.5 Mg/0.5 Ml Vial.neb 2.5 Mg NEB Q6HRS PRN Lactulose 20 Gm/30 Ml Solution 20 Gm PO TID Lantus Solostar (Insulin Glargine,Hum.rec.anlog) 100 Unit/1 Ml Insuln.pen 0 SQ HS SSI Calcium + Vitamin D Tablet (Calcium Carbonate/Vitamin D3) 1 Each Tablet 1 Each PO Albuterol Sulfate Hfa Inhaler (Albuterol Sulfate) 8.5 Gm Hfa.aer.ad 8.5 Gm IH Novolog Flexpen (Insulin Aspart) 100 Unit/1 Ml Insuln.pen 0 SQ TIDAC ssi Synthroid (Levothyroxine Sodium) 25 Mcg Tablet 300 Mcg PO DAILY Flovent 110MCG Hfa (Fluticasone Propionate) 12 Gm Aer.w.adap 12 Gm IH Vitals/I & O Vital Sign - Last 24 Hours 09/14/18 09/14/18 09/14/18 09/14/18 11:00 12:52 15:00 18:11 Temp 98.0 98.0 98.0 98.0 Pulse 97 99 99 Resp 20 20 B/P (MAP) 112/46 (68) 98/40 (59) 98/40 Pulse Ox 97 97 O2 Delivery Nasal Cannula Room Air Nasal Cannula O2 Flow Rate 2.0 2.0 09/14/18 09/14/18 09/14/18 09/15/18 19:00 20:30 23:00 03:00 Temp 99.4 99.5 99.4 99.5 Pulse 110 61 Resp 18 18 24 B/P (MAP) 105/30 (55) 101/30 (53) Pulse Ox 90 90 O2 Delivery Room Air Room Air Room Air 09/15/18 09/15/18 09/15/18 09/15/18 07:00 07:15 07:16 08:00 Temp 98.4 98.4 Pulse 99 Resp 18 B/P (MAP) 96/34 (54) Pulse Ox 99 96 96 O2 Delivery Room Air Room Air Room Air Room Air 09/15/18 08:09 Pulse 99 B/P (MAP) 96/34 Intake and Output 0 09/14/18 09/14/18 09/15/18 15:00 23:00 07:00 Intake Total 300 ml 750 ml 1409 ml Output Total 100 ml Balance 300 ml 750 ml 1309 ml ABE RIVER MD September 15, 2018 09:37
[2018-09-15] MEDS ORDERED: MAGNESIUM SULFATE 2GM 50 ML IV PRN (10:00)
--- NOTE | 2018-09-15 10:02 | PDOC ---
Dialysis Progress Note Dialysis Note Dialysis Note Asked to see patient for ESRD on hemodialysis Saturday. Seen on Hemodialysis, tolerating treatment Okay so far Vitals on Hemodialysis: 85/44 111 22 afeb General Appearance: Awake: Alert Oriented x 1-2 Neck: No JVD or JVP Chest: CTA Yaw Heart: S1 S2 Abdomen - Soft NT Min Distended Extremities - No Edema ESRD: Dialysis as below F 180 NR 3.0 Hrs 4 K 2.5 Ca 140 Na 40 HC03 Qb 350 + Qd 500+ Heparin 0 Units Uf 0-1 Kgs or to dry weight as tolerated May give 25-50 gms of 25% Albumin if needed to maintain Hemodynamic stability Treatment plan reviewed and discussed with bumper straightener Vitals Vital Signs Vital Signs Date Time Temp Pulse Resp B/P (MAP) Pulse Ox O2 Delivery O2 Flow Rate FiO2 09/15/18 08:09 99 96/34 09/15/18 08:00 Room Air 09/15/18 07:16 96 09/15/18 07:00 98.4 18 98.4 09/14/18 15:00 2.0 Labs Last Labs Laboratory Tests Test 09/13/18 11:25 09/13/18 11:41 09/13/18 12:34 09/13/18 13:30 Glucose (Fingerstick) 339 mg/dL (70-99) 311 mg/dL (70-99) White Blood Count 10.0 x10^3/uL (4.0-11.0) Red Blood Count 2.35 x10^6/uL (3.50-5.40) Hemoglobin 7.2 g/dL (12.0-15.5) Hematocrit 21.9 % (36.0-47.0) Mean Corpuscular Volume 93 fL (79-100) Mean Corpuscular Hemoglobin 31 pg (25-35) Mean Corpuscular Hemoglobin Concent 33 g/dL (31-37) Red Cell Distribution Width 19.5 % (11.5-14.5) Platelet Count 97 x10^3/uL (140-400) Neutrophils (%) (Auto) 91 % (31-73) Lymphocytes (%) (Auto) 4 % (24-48) Monocytes (%) (Auto) 5 % (0-9) Eosinophils (%) (Auto) 0 % (0-3) Basophils (%) (Auto) 0 % (0-3) Neutrophils # (Auto) 9.1 x10^3uL (1.8-7.7) Lymphocytes # (Auto) 0.4 x10^3/uL (1.0-4.8) Monocytes # (Auto) 0.4 x10^3/uL (0.0-1.1) Eosinophils # (Auto) 0.0 x10^3/uL (0.0-0.7) Basophils # (Auto) 0.0 x10^3/uL (0.0-0.2) Erythrocyte Sedimentation Rate 6 (0-25) Sodium Level 137 mmol/L (136-145) Potassium Level 3.1 mmol/L (3.5-5.1) Chloride Level 100 mmol/L (98-107) Carbon Dioxide Level 20 mmol/L (21-32) Anion Gap 17 (6-14) Blood Urea Nitrogen 43 mg/dL (7-20) Creatinine 6.0 mg/dL (0.6-1.0) Estimated GFR (Cockcroft-Gault) 7.1 Glucose Level 297 mg/dL (70-99) Calcium Level 7.7 mg/dL (8.5-10.1) Lactate Dehydrogenase 236 U/L (81-234) Thyroid Stimulating Hormone (TSH) 4.654 uIU/mL (0.358-3.74) Free Thyroxine 1.16 ng/dL (0.76-1.46) Free Triiodothyronine (T3) pg/mL 0.57 pg/mL (2.18-3.98) Ammonia 187 mcmol/L (11-34) Test 09/13/18 16:54 09/13/18 20:29 09/14/18 02:48 09/14/18 07:48 Glucose (Fingerstick) 106 mg/dL (70-99) 202 mg/dL (70-99) 264 mg/dL (70-99) 203 mg/dL (70-99) Test 09/14/18 11:40 09/14/18 17:11 09/14/18 20:26 09/15/18 07:27 Glucose (Fingerstick) 182 mg/dL (70-99) 173 mg/dL (70-99) 279 mg/dL (70-99) 302 mg/dL (70-99) Laboratory Tests Test 09/14/18 11:40 09/14/18 17:11 09/14/18 20:26 09/15/18 07:27 Glucose (Fingerstick) 182 mg/dL (70-99) 173 mg/dL (70-99) 279 mg/dL (70-99) 302 mg/dL (70-99) Assessment Assessment Problems Medical Problems: (1) Fall Status: Acute (2) Left knee pain Status: Acute Plan Plan of Care Problems Medical Problems: (1) Fall Status: Acute (2) Left knee pain Status: Acute KENDRICK PANCHAL MD September 15, 2018 10:02
[2018-09-15 12:07] LABS: HEMOGLOBIN A1C 6.8 % (4.8-5.6)
[2018-09-15 14:30] LABS: HEMATOCRIT 23.5 % (36.0-47.0); HEMOGLOBIN 7.6 g/dL (12.0-15.5)
[2018-09-15 15:00] VITALS: BP 100/45
[2018-09-15 15:16] LABS: ALBUMIN 2.9 g/dL (3.4-5.0); CREATININE 2.5 mg/dL (0.6-1.0); GFR 19.6; PHOSPHORUS 1.8 mg/dL (2.6-4.7); POTASSIUM 3.2 mmol/L (3.5-5.1)
--- NOTE | 2018-09-15 15:24 | PDOC ---
PULMONARY PROGRESS NOTES Subjective PT NOT SOA Vitals Vital Signs Date Time Temp Pulse Resp B/P (MAP) Pulse Ox O2 Delivery O2 Flow Rate FiO2 09/15/18 15:00 98.4 118 20 100/45 (63) 96 Room Air 98.4 09/14/18 15:00 2.0 ROS: No Nausea, No Chest Pain, No Abdominal Pain, No Increase Cough General: Alert HEENT: Other (nc at perrl nose throat clear) Lungs: Crackles, Other (dull at l base) Cardiovascular: S1, S2 Abdomen: Soft, Non-tender, Other Neuro Exam: Alert Extremities: No Edema Skin: Warm Labs Laboratory Tests Test 09/13/18 16:54 09/13/18 20:29 09/14/18 02:48 09/14/18 07:48 Glucose (Fingerstick) 106 mg/dL (70-99) 202 mg/dL (70-99) 264 mg/dL (70-99) 203 mg/dL (70-99) Test 09/14/18 11:40 09/14/18 17:11 09/14/18 20:26 09/15/18 07:27 Glucose (Fingerstick) 182 mg/dL (70-99) 173 mg/dL (70-99) 279 mg/dL (70-99) 302 mg/dL (70-99) Test 09/15/18 10:50 09/15/18 13:03 09/15/18 14:25 Hemoglobin 7.6 g/dL (12.0-15.5) Hematocrit 23.5 % (36.0-47.0) Mean Corpuscular Hemoglobin Concent 32 g/dL (31-37) Glucose (Fingerstick) 138 mg/dL (70-99) Sodium Level 143 mmol/L (136-145) Potassium Level 3.2 mmol/L (3.5-5.1) Chloride Level 104 mmol/L (98-107) Carbon Dioxide Level 27 mmol/L (21-32) Anion Gap 12 (6-14) Blood Urea Nitrogen 13 mg/dL (7-20) Creatinine 2.5 mg/dL (0.6-1.0) Estimated GFR (Cockcroft-Gault) 19.6 Glucose Level 157 mg/dL (70-99) Calcium Level 8.0 mg/dL (8.5-10.1) Phosphorus Level 1.8 mg/dL (2.6-4.7) Albumin 2.9 g/dL (3.4-5.0) Laboratory Tests Test 09/14/18 17:11 09/14/18 20:26 09/15/18 07:27 09/15/18 10:50 Glucose (Fingerstick) 173 mg/dL (70-99) 279 mg/dL (70-99) 302 mg/dL (70-99) Hemoglobin 7.6 g/dL (12.0-15.5) Hematocrit 23.5 % (36.0-47.0) Mean Corpuscular Hemoglobin Concent 32 g/dL (31-37) Test 09/15/18 13:03 09/15/18 14:25 Glucose (Fingerstick) 138 mg/dL (70-99) Sodium Level 143 mmol/L (136-145) Potassium Level 3.2 mmol/L (3.5-5.1) Chloride Level 104 mmol/L (98-107) Carbon Dioxide Level 27 mmol/L (21-32) Anion Gap 12 (6-14) Blood Urea Nitrogen 13 mg/dL (7-20) Creatinine 2.5 mg/dL (0.6-1.0) Estimated GFR (Cockcroft-Gault) 19.6 Glucose Level 157 mg/dL (70-99) Calcium Level 8.0 mg/dL (8.5-10.1) Phosphorus Level 1.8 mg/dL (2.6-4.7) Albumin 2.9 g/dL (3.4-5.0) Medications Active Scripts Medications Dose Route/Sig Max Daily Dose Days Date Category Dose Instructions Midodrine Hcl 5 Mg Tablet 10 Mg PO [id number] 14 09/10/18 Rx Benadryl (Diphenhydramine Hcl) 25 Mg Capsule 25 Mg PO Q6HRS 08/12/18 Reported Calcium Acetate 667 Mg Tablet 667 Mg PO TIDWMEALS 07/03/18 Reported Dialyvite Tablet (Folic Acid/Vitamin B Comp W-C) 1 Each Tablet 1 Each PO DAILY 07/03/18 Reported Midodrine Hcl 5 Mg Tablet 5 Mg PO TID 06/25/18 Reported Cyclobenzaprine Hcl 5 Mg Tablet 1 Tab PO TID 06/10/18 Reported Omeprazole 40 Mg Capsule.dr 1 Cap PO DAILY 05/01/18 Reported Xifaxan (Rifaximin) 550 Mg Tablet 1 Tab PO BID 02/07/18 Reported Fusion Plus Capsule (Iron,Fum&Ps/Fa/Vit B&C#18/L.ca) 1 Each Capsule 1 Each PO 05/09/17 Reported Albuterol Sulfate Conc Neb Soln (Albuterol Sulfate) 2.5 Mg/0.5 Ml Vial.neb 2.5 Mg NEB Q6HRS PRN 08/03/15 Reported Lactulose 20 Gm/30 Ml Solution 20 Gm PO TID 08/03/15 Reported Lantus Solostar (Insulin Glargine,Hum.rec.anlog) 100 Unit/1 Ml Insuln.pen 0 SQ HS 06/10/13 Reported SSI Calcium + Vitamin D Tablet (Calcium Carbonate/Vitamin D3) 1 Each Tablet 1 Each PO 06/02/13 Reported Albuterol Sulfate Hfa Inhaler (Albuterol Sulfate) 8.5 Gm Hfa.aer.ad 8.5 Gm IH 06/02/13 Reported Novolog Flexpen (Insulin Aspart) 100 Unit/1 Ml Insuln.pen 0 SQ TIDAC 06/02/13 Reported ssi Synthroid (Levothyroxine Sodium) 25 Mcg Tablet 300 Mcg PO DAILY 06/02/13 Reported Flovent 110MCG Hfa (Fluticasone Propionate) 12 Gm Aer.w.adap 12 Gm IH 06/02/13 Reported Impression . IMPRESSION: 1. Dyspnea, multifactorial in etiology including a left pleural effusion, volume overload, PT FELL POSSIBLE HEMOTHORAX 2. Abnormal chest x-ray with left pleural effusion, I suspect this is secondary to her end-stage liver disease and end-stage renal disease. Other differential diagnosis including inflammatory, infectious and malignancy 3. Chronic obstructive pulmonary disease. 4. End-stage renal disease on hemodialysis. 5. End-stage liver disease, cirrhosis.. 6. Leukocytosis. 7. Anemia. 8. Thrombocytopenia. 9. Ex-smoker. Plan . THORACENTSIS IN AM PT NOT SOA AT REST FOLLOW UP ON FLUID ANALYSIS RIVERA JUDGE MD September 15, 2018 15:24
[2018-09-15 19:00] VITALS: BP 92/52
[2018-09-15] MEDS: DARBEPOETIN ALFA 60 MCG/0.3 ML DISP.SYRIN. SQ SCH (21:01)
[2018-09-15] MEDS: INSULIN GLARGINE 300 UNITS/3 ML INSULN.PEN. SQ SCH (21:13)
[2018-09-15 21:32] LABS: PROTHROMBIN TIME PATIENT 19.6 SEC (11.7-14.0)
[2018-09-15 23:02] VITALS: BP 102/43
[2018-09-16] VITALS (10 sets, daily range): BP systolic 77–114; BP diastolic 23–55
[2018-09-16] MEDS: LEVOTHYROXINE 150 MCG TABLET PO SCH (05:50)
[2018-09-16] MEDS: PANTOPRAZOLE 40 MG TABLET.DR. PO SCH (05:50)
[2018-09-16] MEDS: MIDODRINE 5 MG TABLET PO SCH ×3 (05:53→17:00)
[2018-09-16] MEDS: ALBUTEROL SULFATE 2.5 MG/3 ML NEBU. NEB SCH ×4 (08:00→20:28)
[2018-09-16] MEDS: LACTULOSE 20 GM/30 ML SOLUTION. PO SCH ×4 (08:07→20:50)
[2018-09-16] MEDS: CALCIUM ACETATE 667 MG CAPSULE PO SCH ×3 (08:08→16:59)
[2018-09-16] MEDS: rifAXIMin 550 MG TABLET PO SCH ×2 (08:08→21:00)
[2018-09-16] MEDS: FOLIC/VIT B COMP W-C (RENAL) TABLET. PO SCH (08:08)
[2018-09-16] MEDS: INSULIN LISPRO 300 UNITS/3 ML INSULN.PEN. SQ SCH ×6 (08:27→17:08)
[2018-09-16] MEDS ORDERED: POTASSIUM CHLORIDE 20 MEQ TABLET.ER. PO ONE (08:30)
--- NOTE | 2018-09-16 09:37 | PDOC ---
PROGRESS NOTES Chief Complaint Chief Complaint hypotension on midodrine Failure to thrive, generalized weakness-lives with a son but does not want any rehabilitation or SNU Moderate to large pleural effusion - IR thoracentesis ESRD on dialysis-, noncompliance, last dialysis during last hospitalization Anemia of ESRD History of recurrent ascites and recurrent paracentesis-she claims paracentesis every weekly Diabetes type 2, HON K with no coma-uncontrolled- Sinus tachycardia Thrombocytopenia, platelets is 139 with no bleeding History GERD-PPI Encephalopathy-chronic stable History of Present Illness History of Present Illness No complaints She is on the phone About to get a.m. meds For thoracentesis later-does not need to be nothing by mouth Echocardiogram to be done or done but read is pending ESR is only 6, no fevers. Potassium 3.2 yesterday did not get her placed Plan: thoracentesis today, body fluid studies already ordered KCl 401 Dialysis per renal PT OT LAbs tmr Vitals Vitals Vital Signs Date Time Temp Pulse Resp B/P (MAP) Pulse Ox O2 Delivery O2 Flow Rate FiO2 09/16/18 07:00 99.3 103 18 101/39 (59) 94 Nasal Cannula 2.0 99.3 Physical Exam General: Alert, Oriented X3, Cooperative, No acute distress Heart: Regular rate, Normal S1, No murmurs Lungs: Crackles, Other (dull at l base) Abdomen: Normal bowel sounds, Soft, No tenderness, No hepatosplenomegaly, No masses Extremities: No clubbing, No cyanosis, No edema Skin: No rashes, No breakdown, No significant lesion Labs LABS Laboratory Tests Test 09/15/18 10:50 09/15/18 13:03 09/15/18 14:25 09/15/18 16:03 Hemoglobin 7.6 g/dL (12.0-15.5) Hematocrit 23.5 % (36.0-47.0) Mean Corpuscular Hemoglobin Concent 32 g/dL (31-37) Glucose (Fingerstick) 138 mg/dL (70-99) 114 mg/dL (70-99) Sodium Level 143 mmol/L (136-145) Potassium Level 3.2 mmol/L (3.5-5.1) Chloride Level 104 mmol/L (98-107) Carbon Dioxide Level 27 mmol/L (21-32) Anion Gap 12 (6-14) Blood Urea Nitrogen 13 mg/dL (7-20) Creatinine 2.5 mg/dL (0.6-1.0) Estimated GFR (Cockcroft-Gault) 19.6 Glucose Level 157 mg/dL (70-99) Calcium Level 8.0 mg/dL (8.5-10.1) Phosphorus Level 1.8 mg/dL (2.6-4.7) Albumin 2.9 g/dL (3.4-5.0) Test 09/15/18 20:33 09/15/18 21:15 09/16/18 05:50 09/16/18 07:31 Glucose (Fingerstick) 167 mg/dL (70-99) 239 mg/dL (70-99) Hematocrit 23.8 % (36.0-47.0) Prothrombin Time 19.6 SEC (11.7-14.0) Prothromb Time International Ratio 1.7 (0.8-1.1) Hemoglobin 7.4 g/dL (12.0-15.5) Magnesium Level 1.5 mg/dL (1.8-2.4) Review of Systems Review of Systems A 14 point ROS was completed with the following noted as positive: Other systems reviewed and negative. \CONSTITUTIONAL: No fever or chills EYES: No recent changes SKIN: No rash or itching CARDIOVASCULAR: No chest pain, syncope, palpitations, or edema RESPIRATORY: No SOB or cough GASTROINTESTINAL: No nausea, vomiting or abdominal pain NEUROLOGICAL: No headaches or weakness ENDOCRINE: No cold or heat intolerance GENITOURINARY: No urgency or frequency of urination MUSCULOSKELETAL: No back pain or joint pain LYMPHATICS: No enlarged lymph nodes PSYCHIATRIC: No anxiety or depression Assessment and Plan Assessmemt and Plan Problems Medical Problems: (1) Fall Status: Acute (2) Left knee pain Status: Acute Comment Review of Relevant I have reviewed the following items chante (where applicable) has been applied. Labs Laboratory Tests Test 09/14/18 11:40 09/14/18 17:11 09/14/18 20:26 09/15/18 07:27 Glucose (Fingerstick) 182 mg/dL (70-99) 173 mg/dL (70-99) 279 mg/dL (70-99) 302 mg/dL (70-99) Test 09/15/18 10:50 09/15/18 13:03 09/15/18 14:25 09/15/18 16:03 Hemoglobin 7.6 g/dL (12.0-15.5) Hematocrit 23.5 % (36.0-47.0) Mean Corpuscular Hemoglobin Concent 32 g/dL (31-37) Glucose (Fingerstick) 138 mg/dL (70-99) 114 mg/dL (70-99) Sodium Level 143 mmol/L (136-145) Potassium Level 3.2 mmol/L (3.5-5.1) Chloride Level 104 mmol/L (98-107) Carbon Dioxide Level 27 mmol/L (21-32) Anion Gap 12 (6-14) Blood Urea Nitrogen 13 mg/dL (7-20) Creatinine 2.5 mg/dL (0.6-1.0) Estimated GFR (Cockcroft-Gault) 19.6 Glucose Level 157 mg/dL (70-99) Calcium Level 8.0 mg/dL (8.5-10.1) Phosphorus Level 1.8 mg/dL (2.6-4.7) Albumin 2.9 g/dL (3.4-5.0) Test 09/15/18 20:33 09/15/18 21:15 09/16/18 05:50 09/16/18 07:31 Glucose (Fingerstick) 167 mg/dL (70-99) 239 mg/dL (70-99) Hematocrit 23.8 % (36.0-47.0) Prothrombin Time 19.6 SEC (11.7-14.0) Prothromb Time International Ratio 1.7 (0.8-1.1) Hemoglobin 7.4 g/dL (12.0-15.5) Magnesium Level 1.5 mg/dL (1.8-2.4) Laboratory Tests Test 09/15/18 10:50 09/15/18 13:03 09/15/18 14:25 09/15/18 16:03 Hemoglobin 7.6 g/dL (12.0-15.5) Hematocrit 23.5 % (36.0-47.0) Mean Corpuscular Hemoglobin Concent 32 g/dL (31-37) Glucose (Fingerstick) 138 mg/dL (70-99) 114 mg/dL (70-99) Sodium Level 143 mmol/L (136-145) Potassium Level 3.2 mmol/L (3.5-5.1) Chloride Level 104 mmol/L (98-107) Carbon Dioxide Level 27 mmol/L (21-32) Anion Gap 12 (6-14) Blood Urea Nitrogen 13 mg/dL (7-20) Creatinine 2.5 mg/dL (0.6-1.0) Estimated GFR (Cockcroft-Gault) 19.6 Glucose Level 157 mg/dL (70-99) Calcium Level 8.0 mg/dL (8.5-10.1) Phosphorus Level 1.8 mg/dL (2.6-4.7) Albumin 2.9 g/dL (3.4-5.0) Test 09/15/18 20:33 09/15/18 21:15 09/16/18 05:50 09/16/18 07:31 Glucose (Fingerstick) 167 mg/dL (70-99) 239 mg/dL (70-99) Hematocrit 23.8 % (36.0-47.0) Prothrombin Time 19.6 SEC (11.7-14.0) Prothromb Time International Ratio 1.7 (0.8-1.1) Hemoglobin 7.4 g/dL (12.0-15.5) Magnesium Level 1.5 mg/dL (1.8-2.4) Medications Current Medications Fentanyl Citrate (Fentanyl 2ml Vial) 50 mcg 1X ONCE IV Last administered on 09/12/18at 18:15; Start 09/12/18 at 17:45; Stop 09/12/18 at 17:46; Status DC Ondansetron HCl (Zofran) 4 mg PRN Q8HRS PRN IV NAUSEA/VOMITING; Start 09/12/18 at 19:00; Stop 09/13/18 at 07:50; Status DC Fentanyl Citrate (Fentanyl 2ml Vial) 50 mcg PRN Q1HR PRN IV PAIN Last administered on 09/12/18at 19:12; Start 09/12/18 at 19:00; Stop 09/13/18 at 18:59; Status DC Diphenhydramine HCl (Benadryl) 25 mg Q6HRS PO Last administered on 09/14/18at 06:26; Start 09/13/18 at 00:00; Stop 09/14/18 at 08:37; Status DC Lactulose (Lactulose) 20 gm TID PO Last administered on 09/14/18at 18:11; Start 09/12/18 at 21:00 Calcium Acetate (Phoslo) 667 mg TIDWMEALS PO Last administered on 09/16/18at 08:08; Start 09/13/18 at 08:00 Cyclobenzaprine HCl (Flexeril) 5 mg TID PO Last administered on 09/14/18at 08:04; Start 09/12/18 at 21:15; Stop 09/14/18 at 08:37; Status DC Vitamin B Complex/ Vitamin C (Tasia-Meliton) 1 tab DAILY PO Last administered on 09/16/18 08:08; Start 09/13/18 at 09:00 Levothyroxine Sodium (Synthroid) 300 mcg DAILY06 PO Last administered on 09/16/18 05:50; Start 09/13/18 at 06:00 Midodrine (Proamatine) 5 mg [id number] PO ; Start 09/13/18 at 07:00; Stop 09/13/18 at 07:00; Status DC Pantoprazole Sodium (Protonix) 40 mg DAILYAC PO Last administered on 09/16/18at 05:50; Start 09/13/18 at 07:30 Sodium Chloride 750 ml @ 375 mls/hr 1X ONCE IV Last administered on 09/12/18at 21:53; Start 09/12/18 at 21:30; Stop 09/12/18 at 23:29; Status DC Midodrine (Proamatine) 5 mg [id number] PO Last administered on 09/12/18at 21:55; Start 09/12/18 at 22:00; Stop 09/13/18 at 07:54; Status DC Ondansetron HCl (Zofran) 4 mg PRN Q6HRS PRN IV NAUSEA/VOMITING; Start 09/13/18 at 08:00 Fentanyl Citrate (Fentanyl 2ml Vial) 25 mcg PRN Q2HR PRN IV PAIN; Start 09/13/18 at 08:00 Albuterol Sulfate (Ventolin Hfa) 2.5 puff QID IH ; Start 09/13/18 at 09:00; Status UNV Rifaximin (Xifaxan) 550 mg BID PO Last administered on 09/16/18 08:08; Start 09/13/18 at 09:00 Albuterol Sulfate (Ventolin Neb Soln) 2.5 mg PRN Q6HRS PRN NEB SHORTNESS OF BREATH; Start 09/13/18 at 08:00 Midodrine (Proamatine) 10 mg [id number] PO Last administered on 09/16/18 05:53; Start 09/13/18 at 08:00 Albuterol Sulfate (Ventolin Neb Soln) 2.5 mg RTQID NEB Last administered on 09/15/18 20:07; Start 09/13/18 at 09:00 Budesonide (Pulmicort) 0.5 mg RTBID NEB Last administered on 09/15/18 20:07; Start 09/13/18 at 20:00 Budesonide (Pulmicort) 0.5 mg 1X ONCE NEB Last administered on 09/13/18 13:01; Start 09/13/18 at 08:45; Stop 09/13/18 at 08:46; Status DC Insulin Human Lispro (HumaLOG) 15 units 1X ONCE SQ Last administered on 09/13/18 10:02; Start 09/13/18 at 09:30; Stop 09/13/18 at 09:31; Status DC Insulin Glargine (Lantus) 20 units QHS SQ Last administered on 09/15/18at 21:13; Start 09/13/18 at 21:00 Insulin Human Lispro (HumaLOG) 0-9 UNITS TIDWMEALS SQ Last administered on 09/16/18 08:27; Start 09/13/18 at 12:00 Dextrose (Dextrose 50%-Water Syringe) 12.5 gm PRN Q15MIN PRN IV SEE COMMENTS; Start 09/13/18 at 09:15 Insulin Human Lispro (HumaLOG) 10 units TIDWMEALS SQ Last administered on 09/16/18 08:28; Start 09/13/18 at 12:00 Sodium Chloride 1,000 ml @ 100 mls/hr Q10H IV Last administered on 09/15/18 05:14; Start 09/13/18 at 12:15; Stop 09/15/18 at 09:43; Status DC Sodium Chloride 500 ml @ 500 mls/hr 1X ONCE IV Last administered on 5/25/19at 12:22; Start 09/13/18 at 12:15; Stop 09/13/18 at 13:14; Status DC Sodium Chloride 1,000 ml @ 1,000 mls/hr Q1H PRN IV hypotension; Start 09/13/18 at 13:20; Stop 09/13/18 at 19:19; Status DC Albumin Human 200 ml @ 200 mls/hr 1X PRN PRN IV Hypotension Last administered on 09/13/18at 13:45; Start 09/13/18 at 13:30; Stop 09/13/18 at 19:29; Status DC Sodium Chloride 1,000 ml @ 400 mls/hr Q2H30M PRN IV PATENCY; Start 09/13/18 at 13:20; Stop 09/14/18 at 01:19; Status DC Info (PHARMACY MONITORING -- do not chart) 1 each PRN DAILY PRN MC SEE COMMENTS; Start 09/13/18 at 13:30; Status UNV Info (PHARMACY MONITORING -- do not chart) 1 each PRN DAILY PRN MC SEE COMMENTS; Start 09/13/18 at 13:30 Sodium Chloride 1,000 ml @ 1,000 mls/hr Q1H PRN IV hypotension; Start 09/15/18 at 09:05; Stop 09/15/18 at 09:39; Status DC Sodium Chloride (Normal Saline Flush) 10 ml 1X PRN PRN IV AP catheter pack; Start 09/15/18 at 09:15; Stop 09/16/18 at 09:14; Status DC Sodium Chloride (Normal Saline Flush) 10 ml 1X PRN PRN IV IT SECURITY ANALYST catheter pack; Start 09/15/18 at 09:15; Stop 09/16/18 at 09:14; Status DC Info (PHARMACY MONITORING -- do not chart) 1 each PRN DAILY PRN MC SEE COMMENTS; Start 09/15/18 at 09:15; Stop 09/15/18 at 09:15; Status DC Info (PHARMACY MONITORING -- do not chart) 1 each PRN DAILY PRN MC SEE COMMENTS; Start 09/15/18 at 09:15; Stop 09/15/18 at 09:15; Status DC Sodium Chloride 1,000 ml @ 100 mls/hr Q10H PRN IV HYPOTENSION ; Start 09/15/18 at 09:45 Magnesium Sulfate 50 ml @ 25 mls/hr PRN DAILY PRN IV for Mag < 1.7 on am labs Last administered on 09/16/18at 08:16; Start 09/15/18 at 10:00 Darbepoetin Santana (Aranesp) 60 mcg WEEKLYHS SQ Last administered on 09/15/18at 21:01; Start 09/15/18 at 21:00 Midodrine (Proamatine) 10 mg 3X/WEEK PO ; Start 09/15/18 at 10:30 Potassium Chloride (Klor-Con) 40 meq 1X ONCE PO Last administered on 09/16/18at 09:10; Start 09/16/18 at 08:30; Stop 09/16/18 at 08:31; Status DC Active Scripts Active Midodrine Hcl 5 Mg Tablet 10 Mg PO [id number] 14 Days Reported Benadryl (Diphenhydramine Hcl) 25 Mg Capsule 25 Mg PO Q6HRS Calcium Acetate 667 Mg Tablet 667 Mg PO TIDWMEALS Dialyvite Tablet (Folic Acid/Vitamin B Comp W-C) 1 Each Tablet 1 Each PO DAILY Midodrine Hcl 5 Mg Tablet 5 Mg PO TID Cyclobenzaprine Hcl 5 Mg Tablet 1 Tab PO TID Omeprazole 40 Mg Capsule.dr 1 Cap PO DAILY Xifaxan (Rifaximin) 550 Mg Tablet 1 Tab PO BID Fusion Plus Capsule (Iron,Fum&Ps/Fa/Vit B&C#18/L.ca) 1 Each Capsule 1 Each PO Albuterol Sulfate Conc Neb Soln (Albuterol Sulfate) 2.5 Mg/0.5 Ml Vial.neb 2.5 Mg NEB Q6HRS PRN Lactulose 20 Gm/30 Ml Solution 20 Gm PO TID Lantus Solostar (Insulin Glargine,Hum.rec.anlog) 100 Unit/1 Ml Insuln.pen 0 SQ HS SSI Calcium + Vitamin D Tablet (Calcium Carbonate/Vitamin D3) 1 Each Tablet 1 Each PO Albuterol Sulfate Hfa Inhaler (Albuterol Sulfate) 8.5 Gm Hfa.aer.ad 8.5 Gm IH Novolog Flexpen (Insulin Aspart) 100 Unit/1 Ml Insuln.pen 0 SQ TIDAC ssi Synthroid (Levothyroxine Sodium) 25 Mcg Tablet 300 Mcg PO DAILY Flovent 110MCG Hfa (Fluticasone Propionate) 12 Gm Aer.w.adap 12 Gm IH Vitals/I & O Vital Sign - Last 24 Hours 09/15/18 09/15/18 09/15/18 09/15/18 11:49 13:07 15:00 16:02 Temp 98.4 98.4 Pulse 99 118 Resp 20 B/P (MAP) 96/34 100/45 (63) Pulse Ox 96 O2 Delivery Room Air Room Air Room Air 09/15/18 09/15/18 09/15/18 09/15/18 17:04 19:00 19:58 20:08 Temp 99.6 99.6 Pulse 118 65 Resp 20 B/P (MAP) 100/45 92/52 (65) Pulse Ox 90 93 O2 Delivery Room Air Room Air Room Air O2 Flow Rate 2.0 09/15/18 09/16/18 09/16/18 09/16/18 23:02 04:05 05:53 07:00 Temp 99.7 98.7 99.3 99.7 98.7 99.3 Pulse 115 106 106 103 Resp 20 18 B/P (MAP) 102/43 (62) 100/47 (64) 100/47 101/39 (59) Pulse Ox 100 86 94 O2 Delivery Room Air Room Air Nasal Cannula O2 Flow Rate 2.0 Intake and Output 09/15/18 09/15/18 09/16/18 14:59 22:59 06:59 Intake Total 600 ml Output Total 0 ml Balance 600 ml 0 ml ABE RIVER MD September 16, 2018 09:36
--- NOTE | 2018-09-16 10:33 | PDOC ---
PULMONARY PROGRESS NOTES Subjective PT NOT SOA Vitals Vital Signs Date Time Temp Pulse Resp B/P (MAP) Pulse Ox O2 Delivery O2 Flow Rate FiO2 09/16/18 07:00 99.3 103 18 101/39 (59) 94 Nasal Cannula 2.0 99.3 ROS: No Nausea, No Chest Pain, No Abdominal Pain, No Increase Cough General: Alert HEENT: Other (nc at perrl nose throat clear) Lungs: Crackles, Other (dull at l base) Cardiovascular: S1, S2 Abdomen: Soft, Non-tender, Other Neuro Exam: Alert Extremities: No Edema Skin: Warm Labs Laboratory Tests Test 09/14/18 11:40 09/14/18 17:11 09/14/18 20:26 09/15/18 07:27 Glucose (Fingerstick) 182 mg/dL (70-99) 173 mg/dL (70-99) 279 mg/dL (70-99) 302 mg/dL (70-99) Test 09/15/18 10:50 09/15/18 13:03 09/15/18 14:25 09/15/18 16:03 Hemoglobin 7.6 g/dL (12.0-15.5) Hematocrit 23.5 % (36.0-47.0) Mean Corpuscular Hemoglobin Concent 32 g/dL (31-37) Glucose (Fingerstick) 138 mg/dL (70-99) 114 mg/dL (70-99) Sodium Level 143 mmol/L (136-145) Potassium Level 3.2 mmol/L (3.5-5.1) Chloride Level 104 mmol/L (98-107) Carbon Dioxide Level 27 mmol/L (21-32) Anion Gap 12 (6-14) Blood Urea Nitrogen 13 mg/dL (7-20) Creatinine 2.5 mg/dL (0.6-1.0) Estimated GFR (Cockcroft-Gault) 19.6 Glucose Level 157 mg/dL (70-99) Calcium Level 8.0 mg/dL (8.5-10.1) Phosphorus Level 1.8 mg/dL (2.6-4.7) Albumin 2.9 g/dL (3.4-5.0) Test 09/15/18 20:33 09/15/18 21:15 09/16/18 05:50 09/16/18 07:31 Glucose (Fingerstick) 167 mg/dL (70-99) 239 mg/dL (70-99) Hematocrit 23.8 % (36.0-47.0) Prothrombin Time 19.6 SEC (11.7-14.0) Prothromb Time International Ratio 1.7 (0.8-1.1) Hemoglobin 7.4 g/dL (12.0-15.5) Magnesium Level 1.5 mg/dL (1.8-2.4) Laboratory Tests Test 09/15/18 10:50 09/15/18 13:03 09/15/18 14:25 09/15/18 16:03 Hemoglobin 7.6 g/dL (12.0-15.5) Hematocrit 23.5 % (36.0-47.0) Mean Corpuscular Hemoglobin Concent 32 g/dL (31-37) Glucose (Fingerstick) 138 mg/dL (70-99) 114 mg/dL (70-99) Sodium Level 143 mmol/L (136-145) Potassium Level 3.2 mmol/L (3.5-5.1) Chloride Level 104 mmol/L (98-107) Carbon Dioxide Level 27 mmol/L (21-32) Anion Gap 12 (6-14) Blood Urea Nitrogen 13 mg/dL (7-20) Creatinine 2.5 mg/dL (0.6-1.0) Estimated GFR (Cockcroft-Gault) 19.6 Glucose Level 157 mg/dL (70-99) Calcium Level 8.0 mg/dL (8.5-10.1) Phosphorus Level 1.8 mg/dL (2.6-4.7) Albumin 2.9 g/dL (3.4-5.0) Test 09/15/18 20:33 09/15/18 21:15 09/16/18 05:50 09/16/18 07:31 Glucose (Fingerstick) 167 mg/dL (70-99) 239 mg/dL (70-99) Hematocrit 23.8 % (36.0-47.0) Prothrombin Time 19.6 SEC (11.7-14.0) Prothromb Time International Ratio 1.7 (0.8-1.1) Hemoglobin 7.4 g/dL (12.0-15.5) Magnesium Level 1.5 mg/dL (1.8-2.4) Medications Active Scripts Medications Dose Route/Sig Max Daily Dose Days Date Category Dose Instructions Midodrine Hcl 5 Mg Tablet 10 Mg PO [id number] 09/10/18 Rx Benadryl (Diphenhydramine Hcl) 25 Mg Capsule 25 Mg PO Q6HRS 08/12/18 Reported Calcium Acetate 667 Mg Tablet 667 Mg PO TIDWMEALS 07/03/18 Reported Dialyvite Tablet (Folic Acid/Vitamin B Comp W-C) 1 Each Tablet 1 Each PO DAILY 07/03/18 Reported Midodrine Hcl 5 Mg Tablet 5 Mg PO TID 06/25/18 Reported Cyclobenzaprine Hcl 5 Mg Tablet 1 Tab PO TID 06/10/18 Reported Omeprazole 40 Mg Capsule.dr 1 Cap PO DAILY 05/01/18 Reported Xifaxan (Rifaximin) 550 Mg Tablet 1 Tab PO BID 02/07/18 Reported Fusion Plus Capsule (Iron,Fum&Ps/Fa/Vit B&C#18/L.ca) 1 Each Capsule 1 Each PO 05/09/17 Reported Albuterol Sulfate Conc Neb Soln (Albuterol Sulfate) 2.5 Mg/0.5 Ml Vial.neb 2.5 Mg NEB Q6HRS PRN 08/03/15 Reported Lactulose 20 Gm/30 Ml Solution 20 Gm PO TID 08/03/15 Reported Lantus Solostar (Insulin Glargine,Hum.rec.anlog) 100 Unit/1 Ml Insuln.pen 0 SQ HS 06/10/13 Reported SSI Calcium + Vitamin D Tablet (Calcium Carbonate/Vitamin D3) 1 Each Tablet 1 Each PO 06/02/13 Reported Albuterol Sulfate Hfa Inhaler (Albuterol Sulfate) 8.5 Gm Hfa.aer.ad 8.5 Gm IH 06/02/13 Reported Novolog Flexpen (Insulin Aspart) 100 Unit/1 Ml Insuln.pen 0 SQ TIDAC 06/02/13 Reported ssi Synthroid (Levothyroxine Sodium) 25 Mcg Tablet 300 Mcg PO DAILY 06/02/13 Reported Flovent 110MCG Hfa (Fluticasone Propionate) 12 Gm Aer.w.adap 12 Gm IH 06/02/13 Reported Comments CXR MODERATE LEFT EFFUSION Impression . IMPRESSION: 1. Dyspnea, multifactorial in etiology including a left pleural effusion, volume overload, PT FELL POSSIBLE L HEMOTHORAX 2. Abnormal chest x-ray with left pleural effusion, I suspect this is secondary to her end-stage liver disease and / possible traumatic. Other differential diagnosis including inflammatory, infectious and malignancy 3. Chronic obstructive pulmonary disease. 4. End-stage renal disease on hemodialysis. 5. End-stage liver disease, cirrhosis../ DIAZ/NAFLD 6. Leukocytosis. 7. Anemia. 8. Thrombocytopenia. 9. Ex-smoker. Plan . THORACENTESIS TODAY INR 1.7 PT NOT SOA AT REST FOLLOW UP ON FLUID ANALYSIS MONITOR RESP STATUS FOLLOW RENAL GI REC CRISTIAN AGUIRRE MD September 16, 2018 10:32
--- NOTE | 2018-09-16 10:35 | PDOC ---
Renal-Progress Notes Subjective Notes Notes NONE History of Present Illness Hx of present illness NO ACUTE CHANGES Vitals Vitals Vital Signs Date Time Temp Pulse Resp B/P (MAP) Pulse Ox O2 Delivery O2 Flow Rate FiO2 09/16/18 07:00 99.3 103 18 101/39 (59) 94 Nasal Cannula 2.0 99.3 Weight Weight [ ] I.O. Intake and Output Intake and Output 09/16/18 07:00 Intake Total 600 ml Output Total 0 ml Balance 600 ml Intake Oral 600 ml Output Urine Total 0 ml # Voids 3 # Bowel Movements 3 Labs Labs Laboratory Tests Test 09/15/18 10:50 09/15/18 13:03 09/15/18 14:25 09/15/18 16:03 Hemoglobin 7.6 g/dL (12.0-15.5) Hematocrit 23.5 % (36.0-47.0) Mean Corpuscular Hemoglobin Concent 32 g/dL (31-37) Glucose (Fingerstick) 138 mg/dL (70-99) 114 mg/dL (70-99) Sodium Level 143 mmol/L (136-145) Potassium Level 3.2 mmol/L (3.5-5.1) Chloride Level 104 mmol/L (98-107) Carbon Dioxide Level 27 mmol/L (21-32) Anion Gap 12 (6-14) Blood Urea Nitrogen 13 mg/dL (7-20) Creatinine 2.5 mg/dL (0.6-1.0) Estimated GFR (Cockcroft-Gault) 19.6 Glucose Level 157 mg/dL (70-99) Calcium Level 8.0 mg/dL (8.5-10.1) Phosphorus Level 1.8 mg/dL (2.6-4.7) Albumin 2.9 g/dL (3.4-5.0) Test 09/15/18 20:33 09/15/18 21:15 09/16/18 05:50 09/16/18 07:31 Glucose (Fingerstick) 167 mg/dL (70-99) 239 mg/dL (70-99) Hematocrit 23.8 % (36.0-47.0) Prothrombin Time 19.6 SEC (11.7-14.0) Prothromb Time International Ratio 1.7 (0.8-1.1) Hemoglobin 7.4 g/dL (12.0-15.5) Magnesium Level 1.5 mg/dL (1.8-2.4) Review of Systems Constitutional: yes: alert Ears/Nose/Throat: Yes: no symptom reported Eyes: Yes: no symptom reported Pulmonary: Yes dyspnea Cardiovascular: Yes no symptom reported Gastrointestional: Yes: nausea Genitourinary: Yes: no symptom reported Musculoskeletal: Yes: no symptom reported Skin: Yes no symptom reported Psychiatric/Neurological: Yes: no symptom reported Endocrine: Yes: no symptom reported Physical Exam General Appearance: no apparent distress Skin: warm Respiratory: decreased breath sounds Heart: S1S2 Abdomen: soft, other (ASCITES) Genitourinary: bladder flat Extremities: edema Neurology: confused Musculoskeletal: Osteoarthritis Assessment Assessment IMP ESRD ASCITES HYPOTENSION LIVER FAILURE PLEURAL EFFUSION DM II ENCEPHALOPATHY PLAN THORACENTESIS AND PARACENTESIS NEEDED ARANESP HD MWF WILL FOLLOW HUNG BREWSTER MD September 16, 2018 10:35
[2018-09-16] MEDS ORDERED: LIDOCAINE WITH 8.4% SOD BICARB 3 ML DISP.SYRIN. ONE (10:54)
--- NOTE | 2018-09-16 10:57 | CARD ---
MR#: [id number] Date of Study: 09/16/2018 Ordering Physician: MYRANDA TANG, Referring Physician: CHUCK RIVERA, Tech: Coco Christianson APPROVED REPORT EXAM: Two-dimensional and M-mode echocardiogram with Doppler and color Doppler. Other Information Quality : AverageHR: 103bpm Technically limited study due to body habitus. INDICATION COPD Dyspnea Pleural Effusion RISK FACTORS Hypertension Hyperlipidemia 2D DIMENSIONS RVDd2.3 (2.9-3.5cm)Left Atrium(2D)4.0 (1.6-4.0cm) IVSd1.3 (0.7-1.1cm)Aortic Root(2D)2.7 (2.0-3.7cm) LVDd3.5 (3.9-5.9cm)LVOT Diameter2.0 (1.8-2.4cm) PWd1.1 (0.7-1.1cm)LVDs2.7 (2.5-4.0cm) FS (%) 23.1 %SV27.5 ml LVEF(%)44.8 (>50%) Aortic Valve AoV Peak Anibal.196.1cm/sAoV VTI31.8cm AO Peak GR.15.4mmHgLVOT VTI 17.17cm AO Mean GR.10mmHg Mitral Valve MV E Vwyygtgd078.7cm/sMV DECEL DUNK438lf MV A Riiwbarb586.3cm/sE/A Ratio0.8 TDI Lateral E' P. V8.50cm/sMedial E' P. V8.82cm/s E/Lateral E'12.2E/Medial E'11.8 Tricuspid Valve TR P. Auwgzyau791ny/sRAP RZYVZBVQ2rhJm TR Peak Gr.34cqWqZOGI69adSy Pulmonary Vein S1 Upqpdkgl16.1cm/sS2 Ntjajhud29.47cm/s D2 Oultsbcp09.5cm/sPVa [id number] LEFT VENTRICLE The left ventricle is normal size. There is mild to moderate concentric left ventricular hypertrophy. The left ventricular systolic function is normal and the ejection fraction is within normal range. T he Ejection Fraction is >55%. There is grossly normal LV segmental wall motion. Transmitral Doppler f low pattern is Grade I-abnormal relaxation pattern. RIGHT VENTRICLE The right ventricle is mildly dilated. The right ventricle is mildly to moderately hypertrophied. The right ventricular systolic function is normal. ATRIA The left atrium size is normal. The right atrium size is normal. The interatrial septum is intact wit h no evidence for an atrial septal defect or patent foramen ovale as noted on 2-D or Doppler imaging. AORTIC VALVE The aortic valve is calcified and has restricted leaflet motion. Doppler and Color Flow revealed no s ignificant aortic regurgitation. There is no significant aortic valvular stenosis. MITRAL VALVE The mitral valve is normal in structure and function. There is no evidence of mitral valve prolapse. There is no mitral valve stenosis. Doppler and Color-flow revealed trace mitral regurgitation. TRICUSPID VALVE The tricuspid valve is normal in structure and function. Doppler and Color Flow revealed trace tricus pid regurgitation with an estimated PAP of 30 mmHg. There is no tricuspid valve stenosis. PULMONIC VALVE The pulmonic valve is not well visualized. Doppler and Color Flow revealed trace pulmonic valvular re gurgitation. There is no pulmonic valvular stenosis. GREAT VESSELS The aortic root is normal in size. The IVC was not visualized. PERICARDIAL EFFUSION There is large pleural effusion. There is no evidence of significant pericardial effusion. Critical Notification Critical Value: No <Conclusion> The left ventricular systolic function is normal and the ejection fraction is within normal range. Th e Ejection Fraction is >55%. There is grossly normal LV segmental wall motion. No significant valvular disease. There is large pleural effusion. Signed by : Dariusz Fritz, Electronically Approved : 09/16/2018 10:56:19
[2018-09-16] MEDS ORDERED: MAGNESIUM SULFATE 2GM 50 ML IV ONE (11:00)
[2018-09-16] MEDS ORDERED: LIDOCAINE WITH 8.4% SOD BICARB 3 ML DISP.SYRIN. IJ ONE (11:15)
[2018-09-16] MEDS: BUDESONIDE 0.5 MG/2 ML NEBU. NEB SCH ×2 (11:57→20:28)
--- NOTE | 2018-09-16 12:54 | RAD ---
Portable chest, 09/16/2018: HISTORY: Status post thoracentesis Comparison is made to a study from 09/12/2018. The depth of inspiration is suboptimal. The right jugular Port-A-Cath and the left jugular dialysis type catheter are unchanged in positions. The heart is enlarged. There has been decrease in volume of the left pleural effusion status post thoracentesis. There is mild residual left basilar atelectasis/infiltrate partially obscuring the hemidiaphragm. There is no evidence of pneumothorax. No significant right lung infiltrate or pleural fluid is seen. IMPRESSION: 1. Decreased volume of left pleural fluid and improved aeration of the left lung base status post thoracentesis. 2. No evidence of pneumothorax. Electronically signed by: Anthony Deng MD (09/16/2018 12:51 PM) [facility]
[2018-09-16 13:03] LABS: BF CLARITY HAZY; BF COLOR STRAW; BF MON % 94 %; BF PMN % 6 %; BF RBC COUNT 6500 /cmm (Not Established); BF SOURCE PLEURAL; BF WBC COUNT 308 /cmm (Not Established); PH,BODY FLUID 7.56
--- NOTE | 2018-09-16 14:22 | NUR ---
Wound Care Wound care consult for buttock/coccyx wounds. 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 Cleansed area of stool and applied Calazime cream. No other wounds noted on full skin inspection. Pt educated on PU prevention, verbalized understanding. Pt on p500 bed. Left on right side with heels floated on pillows. WC will continue to follow for possible changes.
--- NOTE | 2018-09-16 14:37 | NUR ---
ALEXANDER following pt for anticipated dc needs. Chart reviewed and discussed with RN. Pt was recently discharged home with home health and now is agreeable with rehab. PT/OT recommends SNU but pt only has acute rehab benefits. Spoke with pt and pt is agreeable to go to rehab at [facility]. ALEXANDER spoke with Kia at [facility] and they were working on getting pt to rehab while she was at home. Clinicals faxed by [employer] earlier and awaiting on insurance auth. Will continue to follow.
[2018-09-16] MEDS: INSULIN GLARGINE 300 UNITS/3 ML INSULN.PEN. SQ SCH (21:00)
[2018-09-17] VITALS (9 sets, daily range): BP systolic 73–104; BP diastolic 31–45
[2018-09-17] MEDS: BUDESONIDE 0.5 MG/2 ML NEBU. NEB SCH ×2 (05:55→20:06)
[2018-09-17] MEDS: ALBUTEROL SULFATE 2.5 MG/3 ML NEBU. NEB SCH ×4 (05:55→20:06)
[2018-09-17] MEDS: PANTOPRAZOLE 40 MG TABLET.DR. PO SCH (06:05)
[2018-09-17] MEDS: LEVOTHYROXINE 150 MCG TABLET PO SCH (06:05)
[2018-09-17] MEDS: MIDODRINE 5 MG TABLET PO SCH ×2 (06:07→14:10)
[2018-09-17 06:48] LABS: CALCIUM 8.2 mg/dL (8.5-10.1); CREATININE 4.2 mg/dL (0.6-1.0); GFR 10.7; MAGNESIUM 1.8 mg/dL (1.8-2.4); PHOSPHORUS 3.7 mg/dL (2.6-4.7); POTASSIUM 3.8 mmol/L (3.5-5.1)
[2018-09-17] MEDS ORDERED: IV NORMAL SALINE 1000ML BAG 1,000 ML IV PRN ×2 (07:08)
[2018-09-17] MEDS ORDERED: MIDODRINE 5 MG TABLET PO ONE (07:15)
[2018-09-17] MEDS ORDERED: ALBUMIN HUMAN 25% 200 ML IV PRN (07:15)
[2018-09-17] MEDS ORDERED: DIALYSIS PATIENT. MC PRN ×2 (07:15)
[2018-09-17] MEDS: INSULIN LISPRO 300 UNITS/3 ML INSULN.PEN. SQ SCH ×6 (08:00→17:40)
[2018-09-17] MEDS: FOLIC/VIT B COMP W-C (RENAL) TABLET. PO SCH (08:02)
[2018-09-17] MEDS: CALCIUM ACETATE 667 MG CAPSULE PO SCH ×3 (08:02→17:40)
[2018-09-17] MEDS: LACTULOSE 20 GM/30 ML SOLUTION. PO SCH ×3 (09:00→20:52)
--- NOTE | 2018-09-17 09:11 | RAD ---
Ultrasound Guided Thoracentesis, left side Indication: 63-year-old with large left pleural effusion Sedation: Local anesthesia only Sterility: The procedure was performed in its entirety using appropriate elements of sterile technique. Technique and Findings: Following informed consent, the patient was prepped and draped in the usual sterile fashion. Ultrasound interrogation of the area of interest was performed revealing the presence of a pleural fluid collection. 1% Lidocaine was used to achieve local anesthesia over the area of interest. A small dermatotomy was made and a 5F [id number] catheter was advanced under ultrasound guidance into the pleural space [id number] cc's of thin smitha fluid was removed. The catheter was then removed and hemostasis was achieved with manual compression. Impression: US thoracentesis as described.
--- NOTE | 2018-09-17 09:15 | PDOC ---
PULMONARY PROGRESS NOTES Subjective PT NOT SOA feels better Vitals Vital Signs Date Time Temp Pulse Resp B/P (MAP) Pulse Ox O2 Delivery O2 Flow Rate FiO2 09/17/18 08:03 101 93/39 09/17/18 07:00 98.3 14 95 Room Air 98.3 09/17/18 05:55 3.0 ROS: No Nausea, No Chest Pain, No Abdominal Pain, No Increase Cough General: Alert HEENT: Other (nc at perrl nose throat clear) Lungs: Clear Cardiovascular: S1, S2 Abdomen: Soft, Non-tender, Other Neuro Exam: Alert Extremities: No Edema Skin: Warm Labs Laboratory Tests Test 09/15/18 10:50 09/15/18 13:03 09/15/18 14:25 09/15/18 16:03 Hemoglobin 7.6 g/dL (12.0-15.5) Hematocrit 23.5 % (36.0-47.0) Mean Corpuscular Hemoglobin Concent 32 g/dL (31-37) Glucose (Fingerstick) 138 mg/dL (70-99) 114 mg/dL (70-99) Sodium Level 143 mmol/L (136-145) Potassium Level 3.2 mmol/L (3.5-5.1) Chloride Level 104 mmol/L (98-107) Carbon Dioxide Level 27 mmol/L (21-32) Anion Gap 12 (6-14) Blood Urea Nitrogen 13 mg/dL (7-20) Creatinine 2.5 mg/dL (0.6-1.0) Estimated GFR (Cockcroft-Gault) 19.6 Glucose Level 157 mg/dL (70-99) Calcium Level 8.0 mg/dL (8.5-10.1) Phosphorus Level 1.8 mg/dL (2.6-4.7) Albumin 2.9 g/dL (3.4-5.0) Test 09/15/18 20:33 09/15/18 21:15 09/16/18 05:50 09/16/18 07:31 Glucose (Fingerstick) 167 mg/dL (70-99) 239 mg/dL (70-99) Hematocrit 23.8 % (36.0-47.0) Prothrombin Time 19.6 SEC (11.7-14.0) Prothromb Time International Ratio 1.7 (0.8-1.1) Hemoglobin 7.4 g/dL (12.0-15.5) Magnesium Level 1.5 mg/dL (1.8-2.4) Test 09/16/18 11:10 09/16/18 11:32 09/16/18 16:32 09/16/18 20:53 Body Fluid Source Pleural Body Fluid Color Straw Body Fluid Clarity Hazy Body Fluid pH 7.56 Body Fluid Nucleated Cells 308 /cmm (Not Established) Body Fluid Mononuclear WBCs (%) 94 % Body Fluid Polymorphonuclear Cells 6 % Body Fluid Total RBCs Counted 6500 /cmm (Not Established) Glucose (Fingerstick) 192 mg/dL (70-99) 191 mg/dL (70-99) 166 mg/dL (70-99) Test 09/17/18 06:15 09/17/18 07:34 Sodium Level 138 mmol/L (136-145) Potassium Level 3.8 mmol/L (3.5-5.1) Chloride Level 100 mmol/L (98-107) Carbon Dioxide Level 26 mmol/L (21-32) Anion Gap 12 (6-14) Blood Urea Nitrogen 27 mg/dL (7-20) Creatinine 4.2 mg/dL (0.6-1.0) Estimated GFR (Cockcroft-Gault) 10.7 Glucose Level 213 mg/dL (70-99) Calcium Level 8.2 mg/dL (8.5-10.1) Phosphorus Level 3.7 mg/dL (2.6-4.7) Magnesium Level 1.8 mg/dL (1.8-2.4) Glucose (Fingerstick) 197 mg/dL (70-99) Laboratory Tests Test 09/16/18 11:10 09/16/18 11:32 09/16/18 16:32 09/16/18 20:53 Body Fluid Source Pleural Body Fluid Color Straw Body Fluid Clarity Hazy Body Fluid pH 7.56 Body Fluid Nucleated Cells 308 /cmm (Not Established) Body Fluid Mononuclear WBCs (%) 94 % Body Fluid Polymorphonuclear Cells 6 % Body Fluid Total RBCs Counted 6500 /cmm (Not Established) Glucose (Fingerstick) 192 mg/dL (70-99) 191 mg/dL (70-99) 166 mg/dL (70-99) Test 09/17/18 06:15 09/17/18 07:34 Sodium Level 138 mmol/L (136-145) Potassium Level 3.8 mmol/L (3.5-5.1) Chloride Level 100 mmol/L (98-107) Carbon Dioxide Level 26 mmol/L (21-32) Anion Gap 12 (6-14) Blood Urea Nitrogen 27 mg/dL (7-20) Creatinine 4.2 mg/dL (0.6-1.0) Estimated GFR (Cockcroft-Gault) 10.7 Glucose Level 213 mg/dL (70-99) Calcium Level 8.2 mg/dL (8.5-10.1) Phosphorus Level 3.7 mg/dL (2.6-4.7) Magnesium Level 1.8 mg/dL (1.8-2.4) Glucose (Fingerstick) 197 mg/dL (70-99) Medications Active Scripts Medications Dose Route/Sig Max Daily Dose Days Date Category Dose Instructions Midodrine Hcl 5 Mg Tablet 10 Mg PO [id number] 14 09/10/18 Rx Benadryl (Diphenhydramine Hcl) 25 Mg Capsule 25 Mg PO Q6HRS 08/12/18 Reported Calcium Acetate 667 Mg Tablet 667 Mg PO TIDWMEALS 07/03/18 Reported Dialyvite Tablet (Folic Acid/Vitamin B Comp W-C) 1 Each Tablet 1 Each PO DAILY 07/03/18 Reported Midodrine Hcl 5 Mg Tablet 5 Mg PO TID 06/25/18 Reported Cyclobenzaprine Hcl 5 Mg Tablet 1 Tab PO TID 06/10/18 Reported Omeprazole 40 Mg Capsule. 1 Cap PO DAILY 05/01/18 Reported Xifaxan (Rifaximin) 550 Mg Tablet 1 Tab PO BID 02/07/18 Reported Fusion Plus Capsule (Iron,Fum&Ps/Fa/Vit B&C#18/L.ca) 1 Each Capsule 1 Each PO 05/09/17 Reported Albuterol Sulfate Conc Neb Soln (Albuterol Sulfate) 2.5 Mg/0.5 Ml Vial.neb 2.5 Mg NEB Q6HRS PRN 08/03/15 Reported Lactulose 20 Gm/30 Ml Solution 20 Gm PO TID 08/03/15 Reported Lantus Solostar (Insulin Glargine,Hum.rec.anlog) 100 Unit/1 Ml Insuln.pen 0 SQ HS 06/10/13 Reported SSI Calcium + Vitamin D Tablet (Calcium Carbonate/Vitamin D3) 1 Each Tablet 1 Each PO 06/02/13 Reported Albuterol Sulfate Hfa Inhaler (Albuterol Sulfate) 8.5 Gm Hfa.aer.ad 8.5 Gm IH 06/02/13 Reported Novolog Flexpen (Insulin Aspart) 100 Unit/1 Ml Insuln.pen 0 SQ TIDAC 06/02/13 Reported ssi Synthroid (Levothyroxine Sodium) 25 Mcg Tablet 300 Mcg PO DAILY 06/02/13 Reported Flovent 110MCG Hfa (Fluticasone Propionate) 12 Gm Aer.w.adap 12 Gm IH 06/02/13 Reported Comments CXR 09/16 improved aeration left lung Impression . IMPRESSION: 1. Dyspnea, multifactorial in etiology including a left pleural effusion, volume overload, s/p left thoracentesis, no hemothorax, awaiting procedure report 2. Abnormal chest x-ray with left pleural effusion, I suspect this is secondary to her end-stage liver disease and / possible traumatic. Other differential diagnosis including inflammatory, infectious and malignancy 3. Chronic obstructive pulmonary disease. 4. End-stage renal disease on hemodialysis. 5. End-stage liver disease, cirrhosis../ DIAZ/NAFLD 6. Leukocytosis. 7. Anemia. 8. Thrombocytopenia. 9. Ex-smoker. Plan . THORACENTESIS DONE WILL REVIEW ANALYSIS PT NOT SOA AT REST FOLLOW UP ON FLUID ANALYSIS MONITOR RESP STATUS FOLLOW RENAL GI REC ADD ABX LEVAQUIN TILL ALL CULTURES BACK CRISTIAN AGUIRRE MD September 17, 2018 09:15
[2018-09-17 09:24] LABS: HEMATOCRIT 23.9 % (36.0-47.0); HEMOGLOBIN 7.6 g/dL (12.0-15.5)
[2018-09-17] MEDS ORDERED: levOFLOXacin PER PHARMACY. MC PRN (09:30)
--- NOTE | 2018-09-17 09:38 | PDOC ---
PROGRESS NOTES Chief Complaint Chief Complaint hypotension on midodrine Failure to thrive, generalized weakness-lives with a son but does not want any rehabilitation or SNU Moderate to large pleural effusion - IR thoracentesis ESRD on dialysis-, noncompliance, last dialysis during last hospitalization Anemia of ESRD History of recurrent ascites and recurrent paracentesis-she claims paracentesis every weekly Diabetes type 2, HON K with no coma-uncontrolled- Sinus tachycardia Thrombocytopenia, platelets is 139 with no bleeding History GERD-PPI Encephalopathy-chronic stable ASCITES s/p left sided thoracentesis 1.5 09/16 History of Present Illness History of Present Illness abdomen has signif ascites on exam She asks about which rehab on dc - told her [facility], I think Seen in HD Drained 1.5 L pleural fluid yesterday- pl fluid studies in the works PLAN: NPO now for IR paracentesis - she gets this done q weekly, sometimes they would drain 10 L at a time Dw her and HD Rn Vitals Vitals Vital Signs Date Time Temp Pulse Resp B/P (MAP) Pulse Ox O2 Delivery O2 Flow Rate FiO2 09/17/18 08:03 101 93/39 09/17/18 07:00 98.3 14 95 Room Air 98.3 09/17/18 05:55 3.0 Physical Exam General: Alert, Oriented X3, Cooperative, No acute distress Heart: Regular rate, Normal S1, No murmurs Lungs: Clear Abdomen: Normal bowel sounds, Soft, No tenderness, No hepatosplenomegaly, No masses Extremities: No clubbing, No cyanosis, No edema Skin: No rashes, No breakdown, No significant lesion Labs LABS Laboratory Tests Test 09/16/18 11:10 09/16/18 11:32 09/16/18 16:32 09/16/18 20:53 Body Fluid Source Pleural Body Fluid Color Straw Body Fluid Clarity Hazy Body Fluid pH 7.56 Body Fluid Nucleated Cells 308 /cmm (Not Established) Body Fluid Mononuclear WBCs (%) 94 % Body Fluid Polymorphonuclear Cells 6 % Body Fluid Total RBCs Counted 6500 /cmm (Not Established) Glucose (Fingerstick) 192 mg/dL (70-99) 191 mg/dL (70-99) 166 mg/dL (70-99) Test 09/17/18 06:15 09/17/18 07:34 Hemoglobin 7.6 g/dL (12.0-15.5) Hematocrit 23.9 % (36.0-47.0) Mean Corpuscular Hemoglobin Concent 32 g/dL (31-37) Sodium Level 138 mmol/L (136-145) Potassium Level 3.8 mmol/L (3.5-5.1) Chloride Level 100 mmol/L (98-107) Carbon Dioxide Level 26 mmol/L (21-32) Anion Gap 12 (6-14) Blood Urea Nitrogen 27 mg/dL (7-20) Creatinine 4.2 mg/dL (0.6-1.0) Estimated GFR (Cockcroft-Gault) 10.7 Glucose Level 213 mg/dL (70-99) Calcium Level 8.2 mg/dL (8.5-10.1) Phosphorus Level 3.7 mg/dL (2.6-4.7) Magnesium Level 1.8 mg/dL (1.8-2.4) Glucose (Fingerstick) 197 mg/dL (70-99) Review of Systems Review of Systems neg cp,neg soa, positive easy fatigability,w eak etc no vomiting, no fevers Assessment and Plan Assessmemt and Plan Problems Medical Problems: (1) Fall Status: Acute (2) Left knee pain Status: Acute Comment Review of Relevant I have reviewed the following items chante (where applicable) has been applied. Labs Laboratory Tests Test 09/15/18 10:50 09/15/18 13:03 09/15/18 14:25 09/15/18 16:03 Hemoglobin 7.6 g/dL (12.0-15.5) Hematocrit 23.5 % (36.0-47.0) Mean Corpuscular Hemoglobin Concent 32 g/dL (31-37) Glucose (Fingerstick) 138 mg/dL (70-99) 114 mg/dL (70-99) Sodium Level 143 mmol/L (136-145) Potassium Level 3.2 mmol/L (3.5-5.1) Chloride Level 104 mmol/L (98-107) Carbon Dioxide Level 27 mmol/L (21-32) Anion Gap 12 (6-14) Blood Urea Nitrogen 13 mg/dL (7-20) Creatinine 2.5 mg/dL (0.6-1.0) Estimated GFR (Cockcroft-Gault) 19.6 Glucose Level 157 mg/dL (70-99) Calcium Level 8.0 mg/dL (8.5-10.1) Phosphorus Level 1.8 mg/dL (2.6-4.7) Albumin 2.9 g/dL (3.4-5.0) Test 09/15/18 20:33 09/15/18 21:15 09/16/18 05:50 09/16/18 07:31 Glucose (Fingerstick) 167 mg/dL (70-99) 239 mg/dL (70-99) Hematocrit 23.8 % (36.0-47.0) Prothrombin Time 19.6 SEC (11.7-14.0) Prothromb Time International Ratio 1.7 (0.8-1.1) Hemoglobin 7.4 g/dL (12.0-15.5) Magnesium Level 1.5 mg/dL (1.8-2.4) Test 09/16/18 11:10 09/16/18 11:32 09/16/18 16:32 09/16/18 20:53 Body Fluid Source Pleural Body Fluid Color Straw Body Fluid Clarity Hazy Body Fluid pH 7.56 Body Fluid Nucleated Cells 308 /cmm (Not Established) Body Fluid Mononuclear WBCs (%) 94 % Body Fluid Polymorphonuclear Cells 6 % Body Fluid Total RBCs Counted 6500 /cmm (Not Established) Glucose (Fingerstick) 192 mg/dL (70-99) 191 mg/dL (70-99) 166 mg/dL (70-99) Test 09/17/18 06:15 09/17/18 07:34 Hemoglobin 7.6 g/dL (12.0-15.5) Hematocrit 23.9 % (36.0-47.0) Mean Corpuscular Hemoglobin Concent 32 g/dL (31-37) Sodium Level 138 mmol/L (136-145) Potassium Level 3.8 mmol/L (3.5-5.1) Chloride Level 100 mmol/L (98-107) Carbon Dioxide Level 26 mmol/L (21-32) Anion Gap 12 (6-14) Blood Urea Nitrogen 27 mg/dL (7-20) Creatinine 4.2 mg/dL (0.6-1.0) Estimated GFR (Cockcroft-Gault) 10.7 Glucose Level 213 mg/dL (70-99) Calcium Level 8.2 mg/dL (8.5-10.1) Phosphorus Level 3.7 mg/dL (2.6-4.7) Magnesium Level 1.8 mg/dL (1.8-2.4) Glucose (Fingerstick) 197 mg/dL (70-99) Laboratory Tests Test 09/16/18 11:10 09/16/18 11:32 09/16/18 16:32 09/16/18 20:53 Body Fluid Source Pleural Body Fluid Color Straw Body Fluid Clarity Hazy Body Fluid pH 7.56 Body Fluid Nucleated Cells 308 /cmm (Not Established) Body Fluid Mononuclear WBCs (%) 94 % Body Fluid Polymorphonuclear Cells 6 % Body Fluid Total RBCs Counted 6500 /cmm (Not Established) Glucose (Fingerstick) 192 mg/dL (70-99) 191 mg/dL (70-99) 166 mg/dL (70-99) Test 09/17/18 06:15 09/17/18 07:34 Hemoglobin 7.6 g/dL (12.0-15.5) Hematocrit 23.9 % (36.0-47.0) Mean Corpuscular Hemoglobin Concent 32 g/dL (31-37) Sodium Level 138 mmol/L (136-145) Potassium Level 3.8 mmol/L (3.5-5.1) Chloride Level 100 mmol/L (98-107) Carbon Dioxide Level 26 mmol/L (21-32) Anion Gap 12 (6-14) Blood Urea Nitrogen 27 mg/dL (7-20) Creatinine 4.2 mg/dL (0.6-1.0) Estimated GFR (Cockcroft-Gault) 10.7 Glucose Level 213 mg/dL (70-99) Calcium Level 8.2 mg/dL (8.5-10.1) Phosphorus Level 3.7 mg/dL (2.6-4.7) Magnesium Level 1.8 mg/dL (1.8-2.4) Glucose (Fingerstick) 197 mg/dL (70-99) Medications Current Medications Fentanyl Citrate (Fentanyl 2ml Vial) 50 mcg 1X ONCE IV Last administered on 09/12/18at 18:15; Start 09/12/18 at 17:45; Stop 09/12/18 at 17:46; Status DC Ondansetron HCl (Zofran) 4 mg PRN Q8HRS PRN IV NAUSEA/VOMITING; Start 09/12/18 at 19:00; Stop 09/13/18 at 07:50; Status DC Fentanyl Citrate (Fentanyl 2ml Vial) 50 mcg PRN Q1HR PRN IV PAIN Last administered on 09/12/18 19:12; Start 09/12/18 at 19:00; Stop 09/13/18 at 18:59; Status DC Diphenhydramine HCl (Benadryl) 25 mg Q6HRS PO Last administered on 09/14/18 06:26; Start 09/13/18 at 00:00; Stop 09/14/18 at 08:37; Status DC Lactulose (Lactulose) 20 gm TID PO Last administered on 09/14/18 18:11; Start 09/12/18 at 21:00 Calcium Acetate (Phoslo) 667 mg TIDWMEALS PO Last administered on 09/17/18 08:02; Start 09/13/18 at 08:00 Cyclobenzaprine HCl (Flexeril) 5 mg TID PO Last administered on 09/14/18 08:04; Start 09/12/18 at 21:15; Stop 09/14/18 at 08:37; Status DC Vitamin B Complex/ Vitamin C (Tasia-Meliton) 1 tab DAILY PO Last administered on 09/17/18 08:02; Start 09/13/18 at 09:00 Levothyroxine Sodium (Synthroid) 300 mcg DAILY06 PO Last administered on 09/17/18 06:05; Start 09/13/18 at 06:00 Midodrine (Proamatine) 5 mg [id number] PO ; Start 09/13/18 at 07:00; Stop 09/13/18 at 07:00; Status DC Pantoprazole Sodium (Protonix) 40 mg DAILYAC PO Last administered on 09/17/18 06:05; Start 09/13/18 at 07:30 Sodium Chloride 750 ml @ 375 mls/hr 1X ONCE IV Last administered on 09/12/18 21:53; Start 09/12/18 at 21:30; Stop 09/12/18 at 23:29; Status DC Midodrine (Proamatine) 5 mg [id number] PO Last administered on 5/24/19at 21:55; Start 09/12/18 at 22:00; Stop 09/13/18 at 07:54; Status DC Ondansetron HCl (Zofran) 4 mg PRN Q6HRS PRN IV NAUSEA/VOMITING; Start 09/13/18 at 08:00 Fentanyl Citrate (Fentanyl 2ml Vial) 25 mcg PRN Q2HR PRN IV PAIN; Start 09/13/18 at 08:00 Albuterol Sulfate (Ventolin Hfa) 2.5 puff QID IH ; Start 09/13/18 at 09:00; Status UNV Rifaximin (Xifaxan) 550 mg BID PO Last administered on 09/16/18at 21:00; Start 09/13/18 at 09:00 Albuterol Sulfate (Ventolin Neb Soln) 2.5 mg PRN Q6HRS PRN NEB SHORTNESS OF BREATH; Start 09/13/18 at 08:00 Midodrine (Proamatine) 10 mg [id number] PO Last administered on 09/17/18at 06:07; Start 09/13/18 at 08:00 Albuterol Sulfate (Ventolin Neb Soln) 2.5 mg RTQID NEB Last administered on 09/17/18at 05:55; Start 09/13/18 at 09:00 Budesonide (Pulmicort) 0.5 mg RTBID NEB Last administered on 09/17/18at 05:55; Start 09/13/18 at 20:00 Budesonide (Pulmicort) 0.5 mg 1X ONCE NEB Last administered on 09/13/18at 13:01; Start 09/13/18 at 08:45; Stop 09/13/18 at 08:46; Status DC Insulin Human Lispro (HumaLOG) 15 units 1X ONCE SQ Last administered on 09/13/18at 10:02; Start 09/13/18 at 09:30; Stop 09/13/18 at 09:31; Status DC Insulin Glargine (Lantus) 20 units QHS SQ Last administered on 09/16/18at 21:00; Start 09/13/18 at 21:00 Insulin Human Lispro (HumaLOG) 0-9 UNITS TIDWMEALS SQ Last administered on 09/16/18at 17:07; Start 09/13/18 at 12:00 Dextrose (Dextrose 50%-Water Syringe) 12.5 gm PRN Q15MIN PRN IV SEE COMMENTS; Start 09/13/18 at 09:15 Insulin Human Lispro (HumaLOG) 10 units TIDWMEALS SQ Last administered on 09/16/18at 17:08; Start 09/13/18 at 12:00 Sodium Chloride 1,000 ml @ 100 mls/hr Q10H IV Last administered on 09/15/18at 05:14; Start 09/13/18 at 12:15; Stop 09/15/18 at 09:43; Status DC Sodium Chloride 500 ml @ 500 mls/hr 1X ONCE IV Last administered on 09/13/18at 12:22; Start 09/13/18 at 12:15; Stop 09/13/18 at 13:14; Status DC Sodium Chloride 1,000 ml @ 1,000 mls/hr Q1H PRN IV hypotension; Start 09/13/18 at 13:20; Stop 09/13/18 at 19:19; Status DC Albumin Human 200 ml @ 200 mls/hr 1X PRN PRN IV Hypotension Last administered on 09/13/18at 13:45; Start 09/13/18 at 13:30; Stop 09/13/18 at 19:29; Status DC Sodium Chloride 1,000 ml @ 400 mls/hr Q2H30M PRN IV PATENCY; Start 09/13/18 at 13:20; Stop 09/14/18 at 01:19; Status DC Info (PHARMACY MONITORING -- do not chart) 1 each PRN DAILY PRN MC SEE COMMENTS; Start 09/13/18 at 13:30; Status UNV Info (PHARMACY MONITORING -- do not chart) 1 each PRN DAILY PRN MC SEE COMMENTS; Start 09/13/18 at 13:30 Sodium Chloride 1,000 ml @ 1,000 mls/hr Q1H PRN IV hypotension; Start 09/15/18 at 09:05; Stop 09/15/18 at 09:39; Status DC Sodium Chloride (Normal Saline Flush) 10 ml 1X PRN PRN IV AP catheter pack; Start 09/15/18 at 09:15; Stop 09/16/18 at 09:14; Status DC Sodium Chloride (Normal Saline Flush) 10 ml 1X PRN PRN IV [employer] C[employer] ASSOCIATE catheter pack; Start 09/15/18 at 09:15; Stop 09/16/18 at 09:14; Status DC Info (PHARMACY MONITORING -- do not chart) 1 each PRN DAILY PRN MC SEE COMMENTS; Start 09/15/18 at 09:15; Stop 09/15/18 at 09:15; Status DC Info (PHARMACY MONITORING -- do not chart) 1 each PRN DAILY PRN MC SEE COMMENTS; Start 09/15/18 at 09:15; Stop 09/15/18 at 09:15; Status DC Sodium Chloride 1,000 ml @ 100 mls/hr Q10H PRN IV HYPOTENSION ; Start 09/15/18 at 09:45 Magnesium Sulfate 50 ml @ 25 mls/hr PRN DAILY PRN IV for Mag < 1.7 on am labs Last administered on 09/16/18at 08:16; Start 09/15/18 at 10:00 Darbepoetin Santana (Aranesp) 60 mcg WEEKLYHS SQ Last administered on 09/15/18at 21:01; Start 09/15/18 at 21:00 Midodrine (Proamatine) 10 mg 3X/WEEK PO ; Start 09/15/18 at 10:30 Potassium Chloride (Klor-Con) 40 meq 1X ONCE PO Last administered on 09/16/18at 09:10; Start 09/16/18 at 08:30; Stop 09/16/18 at 08:31; Status DC Magnesium Sulfate 50 ml @ 25 mls/hr 1X ONCE IV ; Start 09/16/18 at 11:00; Stop 09/16/18 at 12:59; Status Cancel Lidocaine/Sodium Bicarbonate (Buffered Lidocaine 1%) 3 ml STK-MED ONCE .ROUTE ; Start 09/16/18 at 10:54; Stop 09/16/18 at 10:55; Status DC Lidocaine/Sodium Bicarbonate (Buffered Lidocaine 1%) 6 ml 1X ONCE IJ Last administered on 09/16/18at 11:15; Start 09/16/18 at 11:15; Stop 09/16/18 at 11:16; Status DC Sodium Chloride 1,000 ml @ 1,000 mls/hr Q1H PRN IV hypotension; Start 09/17/18 at 07:08; Stop 09/17/18 at 13:07 Albumin Human 200 ml @ 200 mls/hr 1X PRN PRN IV Hypotension; Start 09/17/18 at 07:15; Stop 09/17/18 at 13:14 Midodrine (Proamatine) 5 mg 1X ONCE PO Last administered on 09/17/18at 08:03; Start 09/17/18 at 07:15; Stop 09/17/18 at 07:16; Status DC Sodium Chloride 1,000 ml @ 400 mls/hr Q2H30M PRN IV PATENCY; Start 09/17/18 at 07:08; Stop 09/17/18 at 19:07 Info (PHARMACY MONITORING -- do not chart) 1 each PRN DAILY PRN MC SEE COMMENTS; Start 09/17/18 at 07:15; Stop 09/17/18 at 07:15; Status DC Info (PHARMACY MONITORING -- do not chart) 1 each PRN DAILY PRN MC SEE COMMENTS; Start 09/17/18 at 07:15 Levofloxacin/ Dextrose (Levaquin Per Pharmacy) 1 each PRN DAILY PRN MC SEE COMMENTS; Start 09/17/18 at 09:30; Status UNV Active Scripts Active Midodrine Hcl 5 Mg Tablet 10 Mg PO [id number] 14 Days Reported Benadryl (Diphenhydramine Hcl) 25 Mg Capsule 25 Mg PO Q6HRS Calcium Acetate 667 Mg Tablet 667 Mg PO TIDWMEALS Dialyvite Tablet (Folic Acid/Vitamin B Comp W-C) 1 Each Tablet 1 Each PO DAILY Midodrine Hcl 5 Mg Tablet 5 Mg PO TID Cyclobenzaprine Hcl 5 Mg Tablet 1 Tab PO TID Omeprazole 40 Mg Capsule.dr 1 Cap PO DAILY Xifaxan (Rifaximin) 550 Mg Tablet 1 Tab PO BID Fusion Plus Capsule (Iron,Fum&Ps/Fa/Vit B&C#18/L.ca) 1 Each Capsule 1 Each PO Albuterol Sulfate Conc Neb Soln (Albuterol Sulfate) 2.5 Mg/0.5 Ml Vial.neb 2.5 Mg NEB Q6HRS PRN Lactulose 20 Gm/30 Ml Solution 20 Gm PO TID Lantus Solostar (Insulin Glargine,Hum.rec.anlog) 100 Unit/1 Ml Insuln.pen 0 SQ HS SSI Calcium + Vitamin D Tablet (Calcium Carbonate/Vitamin D3) 1 Each Tablet 1 Each PO Albuterol Sulfate Hfa Inhaler (Albuterol Sulfate) 8.5 Gm Hfa.aer.ad 8.5 Gm IH Novolog Flexpen (Insulin Aspart) 100 Unit/1 Ml Insuln.pen 0 SQ TIDAC ssi Synthroid (Levothyroxine Sodium) 25 Mcg Tablet 300 Mcg PO DAILY Flovent 110MCG Hfa (Fluticasone Propionate) 12 Gm Aer.w.adap 12 Gm IH Vitals/I & O Vital Sign - Last 24 Hours 09/16/18 09/16/18 09/16/18 09/16/18 10:58 11:00 11:03 11:13 Temp 100.0 96.8 100.0 100.0 96.8 100.0 Pulse 109 107 111 110 Resp 20 20 20 18 B/P (MAP) 113/51 (71) 80/23 (42) 114/55 (74) 77/36 (50) Pulse Ox 96 87 95 96 O2 Delivery Nasal Cannula Nasal Cannula Nasal Cannula Nasal Cannula O2 Flow Rate 2.0 2.0 2.0 2.0 09/16/18 09/16/18 09/16/18 09/16/18 11:58 11:58 12:01 13:35 Pulse 103 103 Resp 18 B/P (MAP) 95/41 (59) 95/41 Pulse Ox 92 91 91 O2 Delivery Nasal Cannula Nasal Cannula Nasal Cannula O2 Flow Rate 3.0 3.0 3.0 09/16/18 09/16/18 09/16/18 09/16/18 15:00 15:44 17:00 19:00 Temp 99.2 98.1 99.2 98.1 Pulse 107 107 109 Resp 20 18 B/P (MAP) 95/52 (66) 95/52 87/33 (51) Pulse Ox 97 95 97 O2 Delivery Nasal Cannula Nasal Cannula Nasal Cannula O2 Flow Rate 2.0 3.0 2.0 09/16/18 09/16/18 09/16/18 09/16/18 20:00 20:31 20:31 23:00 Temp 98.4 98.4 Pulse 102 Resp 18 B/P (MAP) 105/45 (65) Pulse Ox 96 O2 Delivery Nasal Cannula Nasal Cannula Nasal Cannula Nasal Cannula O2 Flow Rate 2.0 3.0 3.0 2.0 09/17/18 09/17/18 09/17/18 09/17/18 03:00 05:55 06:07 07:00 Temp 98.2 98.3 98.2 98.3 Pulse 101 101 73 Resp 18 14 B/P (MAP) 93/39 (57) 93/39 104/45 (64) Pulse Ox 100 95 O2 Delivery Nasal Cannula Nasal Cannula Room Air O2 Flow Rate 2.0 3.0 09/17/18 08:03 Pulse 101 B/P (MAP) 93/39 Intake and Output 09/16/18 09/16/18 09/17/18 15:00 23:00 07:00 Intake Total 440 ml 380 ml Output Total 1500 ml 1 ml Balance -1500 ml 439 ml 380 ml ABE RIVER MD September 17, 2018 09:38
--- NOTE | 2018-09-17 10:33 | PDOC ---
Renal-Progress Notes Subjective Notes Notes NONE History of Present Illness Hx of present illness STABLE Vitals Vitals Vital Signs Date Time Temp Pulse Resp B/P (MAP) Pulse Ox O2 Delivery O2 Flow Rate FiO2 09/17/18 08:03 101 93/39 09/17/18 07:00 98.3 14 95 Room Air 98.3 09/17/18 05:55 3.0 Weight Weight [ ] I.O. Intake and Output Intake and Output 09/17/18 07:00 Intake Total 820 ml Output Total 1501 ml Balance -681 ml Intake Oral 820 ml Stool Total 1 ml Other 1500 ml # Voids 5 # Bowel Movements 5 Labs Labs Laboratory Tests Test 09/16/18 11:10 09/16/18 11:32 09/16/18 16:32 09/16/18 20:53 Body Fluid Source Pleural Body Fluid Color Straw Body Fluid Clarity Hazy Body Fluid pH 7.56 Body Fluid Nucleated Cells 308 /cmm (Not Established) Body Fluid Mononuclear WBCs (%) 94 % Body Fluid Polymorphonuclear Cells 6 % Body Fluid Total RBCs Counted 6500 /cmm (Not Established) Glucose (Fingerstick) 192 mg/dL (70-99) 191 mg/dL (70-99) 166 mg/dL (70-99) Test 09/17/18 06:15 09/17/18 07:34 Hemoglobin 7.6 g/dL (12.0-15.5) Hematocrit 23.9 % (36.0-47.0) Mean Corpuscular Hemoglobin Concent 32 g/dL (31-37) Sodium Level 138 mmol/L (136-145) Potassium Level 3.8 mmol/L (3.5-5.1) Chloride Level 100 mmol/L (98-107) Carbon Dioxide Level 26 mmol/L (21-32) Anion Gap 12 (6-14) Blood Urea Nitrogen 27 mg/dL (7-20) Creatinine 4.2 mg/dL (0.6-1.0) Estimated GFR (Cockcroft-Gault) 10.7 Glucose Level 213 mg/dL (70-99) Calcium Level 8.2 mg/dL (8.5-10.1) Phosphorus Level 3.7 mg/dL (2.6-4.7) Magnesium Level 1.8 mg/dL (1.8-2.4) Glucose (Fingerstick) 197 mg/dL (70-99) Review of Systems Constitutional: yes: alert Ears/Nose/Throat: Yes: no symptom reported Eyes: Yes: no symptom reported Pulmonary: Yes dyspnea Cardiovascular: Yes no symptom reported Gastrointestional: Yes: nausea Genitourinary: Yes: no symptom reported Musculoskeletal: Yes: no symptom reported Skin: Yes no symptom reported Psychiatric/Neurological: Yes: no symptom reported Endocrine: Yes: no symptom reported Physical Exam General Appearance: no apparent distress Skin: warm Respiratory: decreased breath sounds Heart: S1S2 Abdomen: soft, other (ASCITES) Genitourinary: bladder flat Extremities: edema Neurology: confused Musculoskeletal: Osteoarthritis Assessment Assessment IMP ESRD ASCITES HYPOTENSION-CHRONIC LIVER FAILURE PLEURAL EFFUSION DM II ENCEPHALOPATHY PLAN THORACENTESIS AND PARACENTESIS NEEDED ARANESP HD TODAY UF TO DW TOLERATED CONT WITH MIDODRINE HUNG BREWSTER MD September 17, 2018 10:33
[2018-09-17] MEDS: rifAXIMin 550 MG TABLET PO SCH ×2 (13:38→20:52)
[2018-09-17] MEDS ORDERED: LIDOCAINE WITH 8.4% SOD BICARB 3 ML DISP.SYRIN. ONE (14:08)
[2018-09-17] MEDS ORDERED: ALBUMIN HUMAN 25% 200 ML IV ONE (14:49)
[2018-09-17] MEDS ORDERED: ALBUMIN HUMAN 25% 100 ML IV ONE ×2 (15:00)
--- NOTE | 2018-09-17 15:49 | RAD ---
Procedure: Ultrasound guided paracentesis Clinical Indication: 63-year-old with abdominal ascites Sedation: Local anesthesia only Antibiotics: None Fluoro Time: None Contrast: Not applicable Sterility: The procedure was performed in its entirety using appropriate elements of sterile technique. Consent: The procedure was explained in its entirety to the patient or the patients designated employee representative by a member of the treatment team, including a discussion of the risks, benefits and commonly accepted alternatives to the procedure, as well as the expected consequences of no therapy whatsoever. Discussion of the risks included, but was not limited to, those that are most frequent and those that are rare but possibly severe or life-threatening, as well as the possibility of unforeseen complications. Technique and Findings: Following informed consent, the patient was prepped and draped in the usual sterile fashion. Ultrasound interrogation of the abdomen revealed abdominal ascites. A hard copy ultrasound image was recorded. 1% Lidocaine was used to achieve local anesthesia over the area of interest, and a 6 Fijian Wmry-R-[id number] catheter was advanced into the peritoneal cavity under ultrasound guidance. 9.6 L of thin yellow ascites was then withdrawn. The catheter was removed and hemostasis was achieved with manual compression. Complications: No immediate Impression: 1. Ultrasound-guided paracentesis as described
[2018-09-17] MEDS ORDERED: ALBUMIN HUMAN 25% 50 ML IV ONE (16:00)
--- NOTE | 2018-09-17 19:00 | NUR ---
Pt is NPO status, but recieved in report that she refused to be NPO and the Dr was notified.
[2018-09-17] MEDS: LACTOBACILLUS RHAMNOSUS GG 1 CAPSULE. PO SCH (20:52)
[2018-09-17] MEDS: INSULIN GLARGINE 300 UNITS/3 ML INSULN.PEN. SQ SCH (21:01)
[2018-09-18] VITALS (7 sets, daily range): BP systolic 84–100; BP diastolic 25–40
[2018-09-18] MEDS: LEVOTHYROXINE 150 MCG TABLET PO SCH (05:58)
[2018-09-18] MEDS: BUDESONIDE 0.5 MG/2 ML NEBU. NEB SCH ×2 (07:59→20:00)
[2018-09-18] MEDS: ALBUTEROL SULFATE 2.5 MG/3 ML NEBU. NEB SCH ×4 (07:59→20:00)
[2018-09-18] MEDS: INSULIN LISPRO 300 UNITS/3 ML INSULN.PEN. SQ SCH ×6 (08:00→18:12)
[2018-09-18] MEDS: LACTULOSE 20 GM/30 ML SOLUTION. PO SCH ×4 (09:00→21:00)
--- NOTE | 2018-09-18 09:18 | NUR ---
Went into pt's room at approx 0830 to admin meds and do assessment, pt asked I come back later as she was eating breakfast and did not want to be bothered.
[2018-09-18] MEDS: rifAXIMin 550 MG TABLET PO SCH ×2 (10:00→20:24)
[2018-09-18] MEDS: FOLIC/VIT B COMP W-C (RENAL) TABLET. PO SCH (10:00)
[2018-09-18] MEDS: LACTOBACILLUS RHAMNOSUS GG 1 CAPSULE. PO SCH ×2 (10:00→20:24)
[2018-09-18] MEDS: CALCIUM ACETATE 667 MG CAPSULE PO SCH ×3 (10:00→18:07)
[2018-09-18] MEDS: PANTOPRAZOLE 40 MG TABLET.DR. PO SCH (10:00)
--- NOTE | 2018-09-18 10:48 | NUR ---
SW following pt. Insurance denied acute rehab stating pt does not need that higher level of care. Peer to Peer arranged with Dr. Lord. Discussed with pt at bedside.
--- NOTE | 2018-09-18 11:26 | PDOC ---
Renal-Progress Notes Subjective Notes Notes NOTHING NEW History of Present Illness Hx of present illness NO CHANGES Vitals Vitals Vital Signs Date Time Temp Pulse Resp B/P (MAP) Pulse Ox O2 Delivery O2 Flow Rate FiO2 09/18/18 08:01 96 Nasal Cannula 2.5 09/18/18 07:00 99.7 103 14 100/35 (56) 99.7 Weight Weight [ ] I.O. Intake and Output Intake and Output 09/18/18 06:59 Intake Total 720 ml Output Total 9400 ml Balance -8680 ml Intake Oral 720 ml Drainage Total 9400 ml # Bowel Movements 5 Labs Labs Laboratory Tests Test 09/17/18 13:37 09/17/18 16:54 09/17/18 20:47 09/18/18 05:55 Glucose (Fingerstick) 129 mg/dL (70-99) 250 mg/dL (70-99) 128 mg/dL (70-99) Magnesium Level 1.6 mg/dL (1.8-2.4) Test 09/18/18 08:02 Glucose (Fingerstick) 139 mg/dL (70-99) Micro Micro Microbiology 09/16/18 Anaerobic/Aerobic Culture, Resulted Pending 09/16/18 Anaerobic Culture Result 1 (JOSE), Resulted Pending 09/16/18 Aerobic Culture, Resulted Pending 09/16/18 Aerobic Culture Result 1 (JOSE), Resulted Pending 09/16/18 Gram Stain - Final, Resulted 09/16/18 Gram Stain Result 1 (JOSE) - Final, Resulted 09/16/18 Gram Stain Result 2 (JOSE) - Final, Resulted Review of Systems Constitutional: yes: alert Ears/Nose/Throat: Yes: no symptom reported Eyes: Yes: no symptom reported Pulmonary: Yes dyspnea Cardiovascular: Yes no symptom reported Gastrointestional: Yes: nausea Genitourinary: Yes: no symptom reported Musculoskeletal: Yes: no symptom reported Skin: Yes no symptom reported Psychiatric/Neurological: Yes: no symptom reported Endocrine: Yes: no symptom reported Physical Exam General Appearance: no apparent distress Skin: warm Respiratory: decreased breath sounds Heart: S1S2 Abdomen: soft, other (ASCITES) Genitourinary: bladder flat Extremities: edema Neurology: confused Musculoskeletal: Osteoarthritis Assessment Assessment IMP ESRD ASCITES HYPOTENSION-CHRONIC LIVER FAILURE PLEURAL EFFUSION DM II ENCEPHALOPATHY PLAN THORACENTESIS AND PARACENTESIS NEEDED ARANESP HD TOMORROW CONT WITH MIDODRINE BREWSTER,HUNG S MD September 18, 2018 11:26
--- NOTE | 2018-09-18 12:23 | PDOC ---
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 Status post drainage of 9.6 L of ascites fluid yesterday Recent drainage of 1.5 L of pleuritic fluid a few days ago hypotension on midodrine Failure to thrive, generalized weakness-lives with a son but does not want any rehabilitation or SNU Moderate to large pleural effusion - IR thoracentesis ESRD on dialysis-, noncompliance, last dialysis during last hospitalization Anemia of ESRD History of recurrent ascites and recurrent paracentesis-she claims paracentesis every weekly Diabetes type 2, HON K with no coma-uncontrolled- Sinus tachycardia Thrombocytopenia, platelets is 139 with no bleeding History GERD-PPI Encephalopathy-chronic stable ASCITES s/p left sided thoracentesis 1.5 09/16 History of Present Illness History of Present Illness Patient seen and examined She is extremely ill Has massive ascites She short of breath She came get out of bed I discussed the case with physical therapy and her nurse I had her insurance companies territory sales manager medical. Give me a call We discussed the situation Patient doesn't qualify for acute rehabilitation but does qualify for care home although she apparently doesn't have benefits? I called the social work case manager she's going to recheck with her insurance and see about the benefit situation This is extremely sick patient who might even qualify for hospice in the near future Vitals Vitals Vital Signs Date Time Temp Pulse Resp B/P (MAP) Pulse Ox O2 Delivery O2 Flow Rate FiO2 09/18/18 08:01 96 Nasal Cannula 2.5 09/18/18 07:00 99.7 103 14 100/35 (56) 99.7 Physical Exam General: Alert, moderate distress Heart: Regular rate, Normal S1, No murmurs Lungs: Clear Abdomen: Other (severe ascites debilitating to the point it pushes on her diaphragm and she can't breathe) Extremities: No clubbing, No cyanosis, No edema Skin: No rashes, No breakdown, No significant lesion Labs Labs: Laboratory Tests Test 09/17/18 13:37 09/17/18 16:54 09/17/18 20:47 09/18/18 05:55 Glucose (Fingerstick) 129 mg/dL (70-99) 250 mg/dL (70-99) 128 mg/dL (70-99) Magnesium Level 1.6 mg/dL (1.8-2.4) Test 09/18/18 08:02 09/18/18 11:39 Glucose (Fingerstick) 139 mg/dL (70-99) 217 mg/dL (70-99) Review of Systems Review of Systems Clements of shortness of breath complains of weakness complains of abdominal distention complains of depression Assessment and Plan Assessmemt and Plan Problems Medical Problems: (1) Fall Status: Acute (2) Left knee pain Status: Acute Severe Boyle syndrome Severe ascites Status post drainage of 9.6 L of ascites fluid yesterday Recent drainage of 1.5 L of pleuritic fluid a few days ago hypotension on midodrine Failure to thrive, generalized weakness-lives with a son but does not want any rehabilitation or SNU Moderate to large pleural effusion - IR thoracentesis ESRD on dialysis-, noncompliance, last dialysis during last hospitalization Anemia of ESRD History of recurrent ascites and recurrent paracentesis-she claims paracentesis every weekly Diabetes type 2, HON K with no coma-uncontrolled- Sinus tachycardia Thrombocytopenia, platelets is 139 with no bleeding History GERD-PPI Encephalopathy-chronic stable ASCITES s/p left sided thoracentesis 1.5 09/16 Plan Weekly paracentesis and/or thoracentesis She really needs long-term care placement or skilled or hospice Home meds DVT prophylaxis She was to be full code for now Frequent labs Prognosis extremely guarded at best This is a very sick patient Total time 34 minutes Comment Review of Relevant I have reviewed the following items chante (where applicable) has been applied. Labs Laboratory Tests Test 09/16/18 16:32 09/16/18 20:53 09/17/18 06:15 09/17/18 07:34 Glucose (Fingerstick) 191 mg/dL (70-99) 166 mg/dL (70-99) 197 mg/dL (70-99) Hemoglobin 7.6 g/dL (12.0-15.5) Hematocrit 23.9 % (36.0-47.0) Mean Corpuscular Hemoglobin Concent 32 g/dL (31-37) Sodium Level 138 mmol/L (136-145) Potassium Level 3.8 mmol/L (3.5-5.1) Chloride Level 100 mmol/L (98-107) Carbon Dioxide Level 26 mmol/L (21-32) Anion Gap 12 (6-14) Blood Urea Nitrogen 27 mg/dL (7-20) Creatinine 4.2 mg/dL (0.6-1.0) Estimated GFR (Cockcroft-Gault) 10.7 Glucose Level 213 mg/dL (70-99) Calcium Level 8.2 mg/dL (8.5-10.1) Phosphorus Level 3.7 mg/dL (2.6-4.7) Magnesium Level 1.8 mg/dL (1.8-2.4) Test 09/17/18 13:37 09/17/18 16:54 09/17/18 20:47 09/18/18 05:55 Glucose (Fingerstick) 129 mg/dL (70-99) 250 mg/dL (70-99) 128 mg/dL (70-99) Magnesium Level 1.6 mg/dL (1.8-2.4) Test 09/18/18 08:02 09/18/18 11:39 Glucose (Fingerstick) 139 mg/dL (70-99) 217 mg/dL (70-99) Laboratory Tests Test 09/17/18 13:37 09/17/18 16:54 09/17/18 20:47 09/18/18 05:55 Glucose (Fingerstick) 129 mg/dL (70-99) 250 mg/dL (70-99) 128 mg/dL (70-99) Magnesium Level 1.6 mg/dL (1.8-2.4) Test 09/18/18 08:02 09/18/18 11:39 Glucose (Fingerstick) 139 mg/dL (70-99) 217 mg/dL (70-99) Microbiology 09/16/18 Anaerobic/Aerobic Culture, Resulted Pending 09/16/18 Anaerobic Culture Result 1 (JOSE), Resulted Pending 09/16/18 Aerobic Culture, Resulted Pending 09/16/18 Aerobic Culture Result 1 (JOSE), Resulted Pending 09/16/18 Gram Stain - Final, Resulted 09/16/18 Gram Stain Result 1 (JOSE) - Final, Resulted 09/16/18 Gram Stain Result 2 (JOSE) - Final, Resulted Medications Current Medications Fentanyl Citrate (Fentanyl 2ml Vial) 50 mcg 1X ONCE IV Last administered on 09/12/18at 18:15; Start 09/12/18 at 17:45; Stop 09/12/18 at 17:46; Status DC Ondansetron HCl (Zofran) 4 mg PRN Q8HRS PRN IV NAUSEA/VOMITING; Start 09/12/18 at 19:00; Stop 09/13/18 at 07:50; Status DC Fentanyl Citrate (Fentanyl 2ml Vial) 50 mcg PRN Q1HR PRN IV PAIN Last administered on 09/12/18 19:12; Start 09/12/18 at 19:00; Stop 09/13/18 at 18: 59; Status DC Diphenhydramine HCl (Benadryl) 25 mg Q6HRS PO Last administered on 09/14/18 06:26; Start 09/13/18 at 00:00; Stop 09/14/18 at 08:37; Status DC Lactulose (Lactulose) 20 gm TID PO Last administered on 09/17/18 13:39; Start 09/12/18 at 21:00 Calcium Acetate (Phoslo) 667 mg TIDWMEALS PO Last administered on 09/18/18 10:00; Start 09/13/18 at 08:00 Cyclobenzaprine HCl (Flexeril) 5 mg TID PO Last administered on 09/14/18 08:04; Start 09/12/18 at 21:15; Stop 09/14/18 at 08:37; Status DC Vitamin B Complex/ Vitamin C (Tasia-Meliton) 1 tab DAILY PO Last administered on 09/18/18 10:00; Start 09/13/18 at 09:00 Levothyroxine Sodium (Synthroid) 300 mcg [id number] PO Last administered on 09/18/18 05:58; Start 09/13/18 at 06:00 Midodrine (Proamatine) 5 mg [id number] PO ; Start 09/13/18 at 07:00; Stop 09/13/18 at 07:00; Status DC Pantoprazole Sodium (Protonix) 40 mg DAILYAC PO Last administered on 09/18/18 10:00; Start 09/13/18 at 07:30 Sodium Chloride 750 ml @ 375 mls/hr 1X ONCE IV Last administered on 09/12/18 21:53; Start 09/12/18 at 21:30; Stop 09/12/18 at 23:29; Status DC Midodrine (Proamatine) 5 mg [id number] PO Last administered on 5/24/19at 21:55; Start 09/12/18 at 22:00; Stop 09/13/18 at 07:54; Status DC Ondansetron HCl (Zofran) 4 mg PRN Q6HRS PRN IV NAUSEA/VOMITING; Start 09/13/18 at 08:00 Fentanyl Citrate (Fentanyl 2ml Vial) 25 mcg PRN Q2HR PRN IV PAIN; Start 09/13/18 at 08:00 Albuterol Sulfate (Ventolin Hfa) 2.5 puff QID IH ; Start 09/13/18 at 09:00; Status UNV Rifaximin (Xifaxan) 550 mg BID PO Last administered on 09/18/18at 10:00; Start 09/13/18 at 09:00 Albuterol Sulfate (Ventolin Neb Soln) 2.5 mg PRN Q6HRS PRN NEB SHORTNESS OF BREATH; Start 09/13/18 at 08:00 Midodrine (Proamatine) 10 mg [id number] PO Last administered on 09/17/18at 06:07; S tart 09/13/18 at 08:00; Stop 09/17/18 at 09:51; Status DC Albuterol Sulfate (Ventolin Neb Soln) 2.5 mg RTQID NEB Last administered on 09/18/18at 07:59; Start 09/13/18 at 09:00 Budesonide (Pulmicort) 0.5 mg RTBID NEB Last administered on 09/18/18at 07:59; Start 09/13/18 at 20:00 Budesonide (Pulmicort) 0.5 mg 1X ONCE NEB Last administered on 09/13/18at 13:01; Start 09/13/18 at 08:45; Stop 09/13/18 at 08:46; Status DC Insulin Human Lispro (HumaLOG) 15 units 1X ONCE SQ Last administered on 09/13/18at 10:02; Start 09/13/18 at 09:30; Stop 09/13/18 at 09:31; Status DC Insulin Glargine (Lantus) 20 units QHS SQ Last administered on 09/17/18at 21:01; Start 09/13/18 at 21:00 Insulin Human Lispro (HumaLOG) 0-9 UNITS TIDWMEALS SQ Last administered on 5/29/19at 17:40; Start 09/13/18 at 12:00 Dextrose (Dextrose 50%-Water Syringe) 12.5 gm PRN Q15MIN PRN IV SEE COMMENTS; Start 09/13/18 at 09:15 Insulin Human Lispro (HumaLOG) 10 units TIDWMEALS SQ Last administered on 09/18/18at 10:38; Start 09/13/18 at 12:00 Sodium Chloride 1,000 ml @ 100 mls/hr Q10H IV Last administered on 09/15/18at 05:14; Start 09/13/18 at 12:15; Stop 09/15/18 at 09:43; Status DC Sodium Chloride 500 ml @ 500 mls/hr 1X ONCE IV Last administered on 09/13/18at 12:22; Start 09/13/18 at 12:15; Stop 09/13/18 at 13:14; Status DC Sodium Chloride 1,000 ml @ 1,000 mls/hr Q1H PRN IV hypotension; Start 09/13/18 at 13:20; Stop 09/13/18 at 19:19; Status DC Albumin Human 200 ml @ 200 mls/hr 1X PRN PRN IV Hypotension Last administered on 09/13/18at 13:45; Start 09/13/18 at 13:30; Stop 09/13/18 at 19:29; Status DC Sodium Chloride 1,000 ml @ 400 mls/hr Q2H30M PRN IV PATENCY; Start 09/13/18 at 13:20; Stop 09/14/18 at 01:19; Status DC Info (PHARMACY MONITORING -- do not chart) 1 each PRN DAILY PRN MC SEE BRIAN TS; Start 09/13/18 at 13:30; Status UNV Info (PHARMACY MONITORING -- do not chart) 1 each PRN DAILY PRN MC SEE COMMENTS; Start 09/13/18 at 13:30; Stop 09/17/18 at 09:51; Status DC Sodium Chloride 1,000 ml @ 1,000 mls/hr Q1H PRN IV hypotension; Start 09/15/18 at 09:05; Stop 09/15/18 at 09:39; Status DC Sodium Chloride (Normal Saline Flush) 10 ml 1X PRN PRN IV AP catheter pack; Start 09/15/18 at 09:15; Stop 09/16/18 at 09:14; Status DC Sodium Chloride (Normal Saline Flush) 10 ml 1X PRN PRN IV BUSINESS DEPARTMENT CHAIR catheter pack; Start 09/15/18 at 09:15; Stop 09/16/18 at 09:14; Status DC Info (PHARMACY MONITORING -- do not chart) 1 each PRN DAILY PRN MC SEE COMMENTS; Start 09/15/18 at 09:15; Stop 09/15/18 at 09:15; Status DC Info (PHARMACY MONITORING -- do not chart) 1 each PRN DAILY PRN MC SEE COMMENTS; Start 09/15/18 at 09:15; Stop 09/15/18 at 09:15; Status DC Sodium Chloride 1,000 ml @ 100 mls/hr Q10H PRN IV HYPOTENSION ; Start 09/15/18 at 09:45 Magnesium Sulfate 50 ml @ 25 mls/hr PRN DAILY PRN IV for Mag < 1.7 on am labs Last administered on 09/16/18at 08:16; Start 09/15/18 at 10:00 Darbepoetin Santana (Aranesp) 60 mcg WEEKLYHS SQ Last administered on 09/15/18at 21:01; Start 09/15/18 at 21:00 Midodrine (Proamatine) 10 mg 3X/WEEK PO Last administered on 09/17/18at 14:10; Start 09/15/18 at 10:30; Stop 09/18/18 at 11:29; Status DC Potassium Chloride (Klor-Con) 40 meq 1X ONCE PO Last administered on 09/16/18at 09:10; Start 09/16/18 at 08:30; Stop 09/16/18 at 08:31; Status DC Magnesium Sulfate 50 ml @ 25 mls/hr 1X ONCE IV ; Start 09/16/18 at 11:00; Stop 09/16/18 at 12:59; Status Cancel Lidocaine/Sodium Bicarbonate (Buffered Lidocaine 1%) 3 ml STK-MED ONCE .ROUTE ; Start 09/16/18 at 10:54; Stop 09/16/18 at 10:55; Status DC Lidocaine/Sodium Bicarbonate (Buffered Lidocaine 1%) 6 ml 1X ONCE IJ Last administered on 09/16/18at 11:15; Start 09/16/18 at 11:15; Stop 09/16/18 at 11:16; Status DC Sodium Chloride 1,000 ml @ 1,000 mls/hr Q1H PRN IV hypotension; Start 09/17/18 at 07:08; Stop 09/17/18 at 13:07; Status DC Albumin Human 200 ml @ 200 mls/hr 1X PRN PRN IV Hypotension Last administered on 09/17/18at 10:09; Start 09/17/18 at 07:15; Stop 09/17/18 at 13:14; Status DC Midodrine (Proamatine) 5 mg 1X ONCE PO Last administered on 09/17/18at 08:03; Start 09/17/18 at 07:15; Stop 09/17/18 at 07:16; Status DC Sodium Chloride 1,000 ml @ 400 mls/hr Q2H30M PRN IV PATENCY; Start 09/17/18 at 07:08; Stop 09/17/18 at 19:07; Status DC Info (PHARMACY MONITORING -- do not chart) 1 each PRN DAILY PRN MC SEE COMMENTS; Start 09/17/18 at 07:15; Stop 09/17/18 at 07:15; Status DC Info (PHARMACY MONITORING -- do not chart) 1 each PRN DAILY PRN MC SEE COMMENTS; Start 09/17/18 at 07:15 Levofloxacin/ Dextrose (Levaquin Per Pharmacy) 1 each PRN DAILY PRN MC SEE COMMENTS; Start 09/17/18 at 09:30 Levofloxacin/ Dextrose 100 ml @ 100 mls/hr 1X ONCE IV Last administered on 09/17/18at 17:34; Start 09/17/18 at 10:00; Stop 09/17/18 at 10:59; Status DC Levofloxacin/ Dextrose 50 ml @ 50 mls/hr Q48H IV ; Start 09/19/18 at 16:00 Lactobacillus Rhamnosus (Culturelle) 1 cap BID PO Last administered on 09/18/18at 10:00; Start 09/17/18 at 21:00 Lidocaine/Sodium Bicarbonate (Buffered Lidocaine 1%) 3 ml STK-MED ONCE .ROUTE ; Start 09/17/18 at 14:08; Stop 09/17/18 at 14:09; Status DC Albumin Human 200 ml @ As Directed STK-MED ONCE IV ; Start 09/17/18 at 14:49; Stop 09/17/18 at 14:50; Status DC Albumin Human 100 ml @ 100 mls/hr 1X ONCE IV Last administered on 09/17/18at 15:15; Start 09/17/18 at 15:00; Stop 09/17/18 at 15:59; Status DC Albumin Human 100 ml @ 100 mls/hr 1X ONCE IV Last administered on 09/17/18at 18:41; Start 09/17/18 at 15:00; Stop 09/17/18 at 15:59; Status DC Albumin Human 50 ml @ 50 mls/hr 1X ONCE IV Last administered on 09/17/18at 16:53; Start 09/17/18 at 16:00; Stop 09/17/18 at 16:59; Status DC Midodrine (Proamatine) 2.5 mg [id number] PO ; Start 09/18/18 at 13:00 Active Scripts Active Midodrine Hcl 5 Mg Tablet 10 Mg PO [id number] 14 Days Reported Benadryl (Diphenhydramine Hcl) 25 Mg Capsule 25 Mg PO Q6HRS Calcium Acetate 667 Mg Tablet 667 Mg PO TIDWMEALS Dialyvite Tablet (Folic Acid/Vitamin B Comp W-C) 1 Each Tablet 1 Each PO DAILY Midodrine Hcl 5 Mg Tablet 5 Mg PO TID Cyclobenzaprine Hcl 5 Mg Tablet 1 Tab PO TID Omeprazole 40 Mg Capsule.dr 1 Cap PO DAILY Xifaxan (Rifaximin) 550 Mg Tablet 1 Tab PO BID Fusion Plus Capsule (Iron,Fum&Ps/Fa/Vit B&C#18/L.ca) 1 Each Capsule 1 Each PO Albuterol Sulfate Conc Neb Soln (Albuterol Sulfate) 2.5 Mg/0.5 Ml Vial.neb 2.5 Mg NEB Q6HRS PRN Lactulose 20 Gm/30 Ml Solution 20 Gm PO TID Lantus Solostar (Insulin Glargine,Hum.rec.anlog) 100 Unit/1 Ml Insuln.pen 0 SQ HS SSI Calcium + Vitamin D Tablet (Calcium Carbonate/Vitamin D3) 1 Each Tablet 1 Each PO Albuterol Sulfate Hfa Inhaler (Albuterol Sulfate) 8.5 Gm Hfa.aer.ad 8.5 Gm IH Novolog Flexpen (Insulin Aspart) 100 Unit/1 Ml Insuln.pen 0 SQ TIDAC ssi Synthroid (Levothyroxine Sodium) 25 Mcg Tablet 300 Mcg PO DAILY Flovent 110MCG Hfa (Fluticasone Propionate) 12 Gm Aer.w.adap 12 Gm IH Vitals/I & O Vital Sign - Last 24 Hours 09/17/18 09/17/18 09/17/18 09/17/18 14:10 14:26 14:41 14:59 Pulse 101 83 102 100 Resp 18 20 20 B/P (MAP) 93/39 85/43 (57) 91/39 (56) 91/31 (51) Pulse Ox 95 100 100 O2 Delivery Room Air Nasal Cannula Nasal Cannula O2 Flow Rate 2.0 2.0 09/17/18 09/17/18 09/17/18 09/17/18 15:13 15:45 19:00 19:30 Temp 97.5 98.4 97.5 98.4 Pulse 100 101 99 Resp 20 18 20 B/P (MAP) 86/39 (55) 80/37 (51) 78/35 (49) Pulse Ox 100 90 99 O2 Delivery Nasal Cannula Nasal Cannula Nasal Cannula O2 Flow Rate 2.0 2.0 2.0 09/17/18 09/17/18 09/17/18 09/18/18 20:06 20:07 23:00 03:00 Temp 98.9 99.7 98.9 99.7 Pulse 105 105 Resp 20 20 B/P (MAP) 73/33 (46) 88/30 (49) Pulse Ox 20 94 O2 Delivery Nasal Cannula Nasal Cannula O2 Flow Rate 2.5 2.5 09/18/18 09/18/18 07:00 08:01 Temp 99.7 99.7 Pulse 103 Resp 14 B/P (MAP) 100/35 (56) Pulse Ox 96 96 O2 Delivery Nasal Cannula Nasal Cannula O2 Flow Rate 2.0 2.5 Intake and Output 09/17/18 09/17/18 09/18/18 15:00 23:00 07:00 Intake Total 360 ml 120 ml 240 ml Output Total 9400 ml Balance 360 ml -9280 ml 240 ml SULTANA HERNANDES III DO September 18, 2018 12:23
[2018-09-18] MEDS: MIDODRINE 2.5 MG TABLET PO SCH ×2 (13:50→18:07)
--- NOTE | 2018-09-18 13:52 | NUR ---
SW following pt. ALEXANDER spoke with pt and pt's daughter, Marilin via phone regarding insurance denial after peer to peer was done. Pt and daughter agreeable to try assisted at [facility] if insurance approves it. Pt's daughter discussed concerns about her mother going home at this time as pt is not able to ambulate and needs to be transported to and from OP HD. Pt had missed dialysis last week as she was unable to go down the stairs and ended up back in a hospital. ALEXANDER phoned and faxed referral to [facility]. Pt acceptance and admission pending. Will continue to follow.
--- NOTE | 2018-09-18 14:25 | PDOC ---
PULMONARY PROGRESS NOTES Subjective PT NOT SOA feels better Vitals Vital Signs Date Time Temp Pulse Resp B/P (MAP) Pulse Ox O2 Delivery O2 Flow Rate FiO2 09/18/18 13:50 115 89/32 09/18/18 11:00 99.6 16 98 Nasal Cannula 2.0 99.6 ROS: No Nausea, No Chest Pain, No Abdominal Pain, No Increase Cough General: Alert HEENT: Other (nc at perrl nose throat clear) Lungs: Clear Cardiovascular: S1, S2 Abdomen: Soft, Non-tender, Other Neuro Exam: Alert Extremities: No Edema Skin: Warm Labs Laboratory Tests Test 09/16/18 16:32 09/16/18 20:53 09/17/18 06:15 09/17/18 07:34 Glucose (Fingerstick) 191 mg/dL (70-99) 166 mg/dL (70-99) 197 mg/dL (70-99) Hemoglobin 7.6 g/dL (12.0-15.5) Hematocrit 23.9 % (36.0-47.0) Mean Corpuscular Hemoglobin Concent 32 g/dL (31-37) Sodium Level 138 mmol/L (136-145) Potassium Level 3.8 mmol/L (3.5-5.1) Chloride Level 100 mmol/L (98-107) Carbon Dioxide Level 26 mmol/L (21-32) Anion Gap 12 (6-14) Blood Urea Nitrogen 27 mg/dL (7-20) Creatinine 4.2 mg/dL (0.6-1.0) Estimated GFR (Cockcroft-Gault) 10.7 Glucose Level 213 mg/dL (70-99) Calcium Level 8.2 mg/dL (8.5-10.1) Phosphorus Level 3.7 mg/dL (2.6-4.7) Magnesium Level 1.8 mg/dL (1.8-2.4) Test 09/17/18 13:37 09/17/18 16:54 09/17/18 20:47 09/18/18 05:55 Glucose (Fingerstick) 129 mg/dL (70-99) 250 mg/dL (70-99) 128 mg/dL (70-99) Magnesium Level 1.6 mg/dL (1.8-2.4) Test 09/18/18 08:02 09/18/18 11:39 Glucose (Fingerstick) 139 mg/dL (70-99) 217 mg/dL (70-99) Laboratory Tests Test 09/17/18 16:54 09/17/18 20:47 09/18/18 05:55 09/18/18 08:02 Glucose (Fingerstick) 250 mg/dL (70-99) 128 mg/dL (70-99) 139 mg/dL (70-99) Magnesium Level 1.6 mg/dL (1.8-2.4) Test 09/18/18 11:39 Glucose (Fingerstick) 217 mg/dL (70-99) Medications Active Scripts Medications Dose Route/Sig Max Daily Dose Days Date Category Dose Instructions Midodrine Hcl 5 Mg Tablet 10 Mg PO [id number] 14 09/10/18 Rx Benadryl (Diphenhydramine Hcl) 25 Mg Capsule 25 Mg PO Q6HRS 08/12/18 Reported Calcium Acetate 667 Mg Tablet 667 Mg PO TIDWMEALS 07/03/18 Reported Dialyvite Tablet (Folic Acid/Vitamin B Comp W-C) 1 Each Tablet 1 Each PO DAILY 07/03/18 Reported Midodrine Hcl 5 Mg Tablet 5 Mg PO TID 06/25/18 Reported Cyclobenzaprine Hcl 5 Mg Tablet 1 Tab PO TID 06/10/18 Reported Omeprazole 40 Mg Capsule. 1 Cap PO DAILY 05/01/18 Reported Xifaxan (Rifaximin) 550 Mg Tablet 1 Tab PO BID 02/07/18 Reported Fusion Plus Capsule (Iron,Fum&Ps/Fa/Vit B&C#18/L.ca) 1 Each Capsule 1 Each PO 05/09/17 Reported Albuterol Sulfate Conc Neb Soln (Albuterol Sulfate) 2.5 Mg/0.5 Ml Vial.neb 2.5 Mg NEB Q6HRS PRN 08/03/15 Reported Lactulose 20 Gm/30 Ml Solution 20 Gm PO TID 08/03/15 Reported Lantus Solostar (Insulin Glargine,Hum.rec.anlog) 100 Unit/1 Ml Insuln.pen 0 SQ HS 06/10/13 Reported SSI Calcium + Vitamin D Tablet (Calcium Carbonate/Vitamin D3) 1 Each Tablet 1 Each PO 06/02/13 Reported Albuterol Sulfate Hfa Inhaler (Albuterol Sulfate) 8.5 Gm Hfa.aer.ad 8.5 Gm IH 06/02/13 Reported Novolog Flexpen (Insulin Aspart) 100 Unit/1 Ml Insuln.pen 0 SQ TIDAC 06/02/13 Reported ssi Synthroid (Levothyroxine Sodium) 25 Mcg Tablet 300 Mcg PO DAILY 06/02/13 Reported Flovent 110MCG Hfa (Fluticasone Propionate) 12 Gm Aer.w.adap 12 Gm IH 06/02/13 Reported Comments CXR 09/16 improved aeration left lung Impression . IMPRESSION: 1. Dyspnea, multifactorial in etiology including a left pleural effusion, volume overload, s/p left thoracentesis, no hemothorax, 2. Abnormal chest x-ray with left pleural effusion, I suspect this is secondary to her end-stage liver disease and / possible traumatic. Other differential diagnosis including inflammatory, infectious and malignancy 3. Chronic obstructive pulmonary disease. 4. End-stage renal disease on hemodialysis. 5. End-stage liver disease, cirrhosis../ DIAZ/NAFLD 6. Leukocytosis. 7. Anemia. 8. Thrombocytopenia. 9. Ex-smoker. Plan . THORACENTESIS DONE ANALYSIS REVIEWED/ TRANSUDATE/ RELATED TO CIRRHOSIS PT NOT SOA AT REST MONITOR RESP STATUS FOLLOW RENAL GI REC ABX LEVAQUIN TILL ALL CULTURES BACK CRISTIAN AGUIRRE MD September 18, 2018 14:25
--- NOTE | 2018-09-18 15:47 | NUR ---
ALEXANDER following pt. Pt has been accepted at [facility] pending insurance approval. Deena at [facility] reported Pt's insurance only pays $200/day and they will be losing around $100/day so she will be requesting insurance if they will do a carve out. Insurance auth pending. Will continue to follow.
[2018-09-18] MEDS: INSULIN GLARGINE 300 UNITS/3 ML INSULN.PEN. SQ SCH (20:37)
[2018-09-18] MEDS ORDERED: MAGNESIUM SULFATE 2GM 50 ML IV ONE (21:00)
[2018-09-19] MEDS: INSULIN GLARGINE 300 UNITS/3 ML INSULN.PEN. SQ SCH (00:23)
[2018-09-19 03:00] VITALS: BP 104/42
[2018-09-19] MEDS: LEVOTHYROXINE 150 MCG TABLET PO SCH (05:47)
[2018-09-19] MEDS: PANTOPRAZOLE 40 MG TABLET.DR. PO SCH ×2 (05:47→07:04)
[2018-09-19] MEDS: MIDODRINE 2.5 MG TABLET PO SCH ×3 (05:53→18:26)
[2018-09-19 07:00] VITALS: BP 103/46
[2018-09-19] MEDS: ALBUTEROL SULFATE 2.5 MG/3 ML NEBU. NEB SCH ×4 (07:58→19:35)
[2018-09-19] MEDS: BUDESONIDE 0.5 MG/2 ML NEBU. NEB SCH ×2 (07:59→19:34)
[2018-09-19] MEDS: CALCIUM ACETATE 667 MG CAPSULE PO SCH ×3 (08:10→18:26)
[2018-09-19] MEDS: LACTOBACILLUS RHAMNOSUS GG 1 CAPSULE. PO SCH (08:10)
[2018-09-19] MEDS: rifAXIMin 550 MG TABLET PO SCH (08:10)
[2018-09-19] MEDS: FOLIC/VIT B COMP W-C (RENAL) TABLET. PO SCH (08:10)
[2018-09-19] MEDS: INSULIN LISPRO 300 UNITS/3 ML INSULN.PEN. SQ SCH ×6 (08:25→18:32)
[2018-09-19] MEDS: LACTULOSE 20 GM/30 ML SOLUTION. PO SCH ×3 (08:26→21:00)
--- NOTE | 2018-09-19 10:55 | PDOC ---
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 Status post drainage of 9.6 L of ascites fluid yesterday Recent drainage of 1.5 L of pleuritic fluid a few days ago hypotension on midodrine Failure to thrive, generalized weakness-lives with a son but does not want any rehabilitation or SNU Moderate to large pleural effusion - IR thoracentesis ESRD on dialysis-, noncompliance, last dialysis during last hospitalization Anemia of ESRD History of recurrent ascites and recurrent paracentesis-she claims paracentesis every weekly Diabetes type 2, HON K with no coma-uncontrolled- Sinus tachycardia Thrombocytopenia, platelets is 139 with no bleeding History GERD-PPI Encephalopathy-chronic stable ASCITES s/p left sided thoracentesis 1.5 09/16 History of Present Illness History of Present Illness Patient seen and examined She is extremely ill Has massive ascites She short of breath I discussed the case with her insurance carrier medical representative. yesterday. He approved long term on discharge Vitals Vitals Vital Signs Date Time Temp Pulse Resp B/P (MAP) Pulse Ox O2 Delivery O2 Flow Rate FiO2 09/19/18 08:01 93 Room Air 09/19/18 08:00 2.0 09/19/18 07:00 98.6 103 16 103/46 (65) 98.6 Physical Exam General: moderate distress, Other (resting with mild snoring) Heart: Regular rate, Normal S1, No murmurs Lungs: Crackles Abdomen: Other (severe ascites debilitating to the point it pushes on her diaphragm and she can't breathe) Extremities: No clubbing, No cyanosis, No edema Skin: No rashes, No breakdown, No significant lesion Labs Labs: Laboratory Tests Test 09/18/18 11:39 09/18/18 16:33 09/18/18 20:33 09/19/18 05:30 Glucose (Fingerstick) 217 mg/dL (70-99) 106 mg/dL (70-99) 148 mg/dL (70-99) Magnesium Level 2.2 mg/dL (1.8-2.4) Test 09/19/18 07:44 Glucose (Fingerstick) 259 mg/dL (70-99) Assessment and Plan Assessmemt and Plan Problems Medical Problems: (1) Fall Status: Acute (2) Left knee pain Status: Acute Severe Boyle syndrome Severe ascites Status post drainage of 9.6 L of ascites fluid yesterday Recent drainage of 1.5 L of pleuritic fluid a few days ago hypotension on midodrine Failure to thrive, generalized weakness-lives with a son but does not want any rehabilitation or SNU Moderate to large pleural effusion - IR thoracentesis ESRD on dialysis-, noncompliance, last dialysis during last hospitalization Anemia of ESRD History of recurrent ascites and recurrent paracentesis-she claims paracentesis every weekly Diabetes type 2, HON K with no coma-uncontrolled- Sinus tachycardia Thrombocytopenia, platelets is 139 with no bleeding History GERD-PPI Encephalopathy-chronic stable ASCITES s/p left sided thoracentesis 1.5 09/16 Plan Hope to discharge to long term 7 For now when necessary paracentesis O2 per nasal cannula DVT prophylaxis Home meds Appreciate subspecialist input Suspect she is going to qualify for hospice within the next year Comment Review of Relevant I have reviewed the following items chante (where applicable) has been applied. Labs Laboratory Tests Test 09/17/18 13:37 09/17/18 16:54 09/17/18 20:47 09/18/18 05:55 Glucose (Fingerstick) 129 mg/dL (70-99) 250 mg/dL (70-99) 128 mg/dL (70-99) Magnesium Level 1.6 mg/dL (1.8-2.4) Test 09/18/18 08:02 09/18/18 11:39 09/18/18 16:33 09/18/18 20:33 Glucose (Fingerstick) 139 mg/dL (70-99) 217 mg/dL (70-99) 106 mg/dL (70-99) 148 mg/dL (70-99) Test 09/19/18 05:30 09/19/18 07:44 Magnesium Level 2.2 mg/dL (1.8-2.4) Glucose (Fingerstick) 259 mg/dL (70-99) Laboratory Tests Test 09/18/18 11:39 09/18/18 16:33 09/18/18 20:33 09/19/18 05:30 Glucose (Fingerstick) 217 mg/dL (70-99) 106 mg/dL (70-99) 148 mg/dL (70-99) Magnesium Level 2.2 mg/dL (1.8-2.4) Test 09/19/18 07:44 Glucose (Fingerstick) 259 mg/dL (70-99) Microbiology 09/16/18 Anaerobic/Aerobic Culture, Resulted Pending 09/16/18 Anaerobic Culture Result 1 (JOSE), Resulted Pending 09/16/18 Aerobic Culture - Final, Resulted 09/16/18 Aerobic Culture Result 1 (JOSE) - Final, Resulted 09/16/18 Gram Stain - Final, Resulted 09/16/18 Gram Stain Result 1 (JOSE) - Final, Resulted 09/16/18 Gram Stain Result 2 (JOSE) - Final, Resulted Medications Current Medications Fentanyl Citrate (Fentanyl 2ml Vial) 50 mcg 1X ONCE IV Last administered on 09/12/18at 18:15; Start 09/12/18 at 17:45; Stop 09/12/18 at 17:46; Status DC Ondansetron HCl (Zofran) 4 mg PRN Q8HRS PRN IV NAUSEA/VOMITING; Start 09/12/18 at 19:00; Stop 09/13/18 at 07:50; Status DC Fentanyl Citrate (Fentanyl 2ml Vial) 50 mcg PRN Q1HR PRN IV PAIN Last admin istered on 09/12/18at 19:12; Start 09/12/18 at 19:00; Stop 09/13/18 at 18:59; Status DC Diphenhydramine HCl (Benadryl) 25 mg Q6HRS PO Last administered on 09/14/18at 06:26; Start 09/13/18 at 00:00; Stop 09/14/18 at 08:37; Status DC Lactulose (Lactulose) 20 gm TID PO Last administered on 09/17/18at 13:39; Start 09/12/18 at 21:00 Calcium Acetate (Phoslo) 667 mg TIDWMEALS PO Last administered on 09/19/18at 08:10; Start 09/13/18 at 08:00 Cyclobenzaprine HCl (Flexeril) 5 mg TID PO Last administered on 09/14/18at 08:04; Start 09/12/18 at 21:15; Stop 09/14/18 at 08:37; Status DC Vitamin B Complex/ Vitamin C (Tasia-Meliton) 1 tab DAILY PO Last administered on 09/19/18at 08:10; Start 09/13/18 at 09:00 Levothyroxine Sodium (Synthroid) 300 mcg [id number] PO Last administered on 09/19/18 05:47; Start 09/13/18 at 06:00 Midodrine (Proamatine) 5 mg [id number] PO ; Start 09/13/18 at 07:00; Stop 09/13/18 at 07:00; Status DC Pantoprazole Sodium (Protonix) 40 mg DAILYAC PO Last administered on 09/18/18 10:00; Start 09/13/18 at 07:30 Sodium Chloride 750 ml @ 375 mls/hr 1X ONCE IV Last administered on 09/12/18at 21:53; Start 09/12/18 at 21:30; Stop 09/12/18 at 23:29; Status DC Midodrine (Proamatine) 5 mg [id number] PO Last administered on 09/12/18at 21:55; Start 09/12/18 at 22:00; Stop 09/13/18 at 07:54; Status DC Ondansetron HCl (Zofran) 4 mg PRN Q6HRS PRN IV NAUSEA/VOMITING; Start 09/13/18 at 08:00 Fentanyl Citrate (Fentanyl 2ml Vial) 25 mcg PRN Q2HR PRN IV PAIN; Start 09/13/18 at 08:00 Albuterol Sulfate (Ventolin Hfa) 2.5 puff QID IH ; Start 09/13/18 at 09:00; Status UNV Rifaximin (Xifaxan) 550 mg BID PO Last administered on 09/19/18at 08:10; Start 09/13/18 at 09:00 Albuterol Sulfate (Ventolin Neb Soln) 2.5 mg PRN Q6HRS PRN NEB SHORTNESS OF BREATH; Start 09/13/18 at 08:00 Midodrine (Proamatine) 10 mg [id number] PO Last administered on 09/17/18at 06:07; Start 09/13/18 at 08:00; Stop 09/17/18 at 09:51; Status DC Albuterol Sulfate (Ventolin Neb Soln) 2.5 mg RTQID NEB Last administered on 09/19/18at 07:58; Start 09/13/18 at 09:00 Budesonide (Pulmicort) 0.5 mg RTBID NEB Last administered on 09/19/18at 07:59; Start 09/13/18 at 20:00 Budesonide (Pulmicort) 0.5 mg 1X ONCE NEB Last administered on 09/13/18at 13:01; Start 09/13/18 at 08:45; Stop 09/13/18 at 08:46; Status DC Insulin Human Lispro (HumaLOG) 15 units 1X ONCE SQ Last administered on 09/13/18at 10:02; Start 09/13/18 at 09:30; Stop 09/13/18 at 09:31; Status DC Insulin Glargine (Lantus) 20 units QHS SQ Last administered on 09/17/18at 21:01; Start 09/13/18 at 21:00 Insulin Human Lispro (HumaLOG) 0-9 UNITS TIDWMEALS SQ Last administered on 09/19/18at 08:25; Start 09/13/18 at 12:00 Dextrose (Dextrose 50%-Water Syringe) 12.5 gm PRN Q15MIN PRN IV SEE COMMENTS; Start 09/13/18 at 09:15 Insulin Human Lispro (HumaLOG) 10 units TIDWMEALS SQ Last administered on 09/19/18at 08:26; Start 09/13/18 at 12:00 Sodium Chloride 1,000 ml @ 100 mls/hr Q10H IV Last administered on 09/15/18at 05:14; Start 09/13/18 at 12:15; Stop 09/15/18 at 09:43; Status DC Sodium Chloride 500 ml @ 500 mls/hr 1X ONCE IV Last administered on 09/13/18at 12:22; Start 09/13/18 at 12:15; Stop 09/13/18 at 13:14; Status DC Sodium Chloride 1,000 ml @ 1,000 mls/hr Q1H PRN IV hypotension; Start 09/13/18 at 13:20; Stop 09/13/18 at 19:19; Status DC Albumin Human 200 ml @ 200 mls/hr 1X PRN PRN IV Hypotension Last administered on 09/13/18at 13:45; Start 09/13/18 at 13:30; Stop 09/13/18 at 19:29; Status DC Sodium Chloride 1,000 ml @ 400 mls/hr Q2H30M PRN IV PATENCY; Start 09/13/18 at 13:20; Stop 09/14/18 at 01:19; Status DC Info (PHARMACY MONITORING -- do not chart) 1 each PRN DAILY PRN MC SEE COMMENTS; Start 09/13/18 at 13:30; Status UNV Info (PHARMACY MONITORING -- do not chart) 1 each PRN DAILY PRN MC SEE COMMENTS; Start 09/13/18 at 13:30; Stop 09/17/18 at 09:51; Status DC Sodium Chloride 1,000 ml @ 1,000 mls/hr Q1H PRN IV hypotension; Start 09/15/18 at 09:05; Stop 09/15/18 at 09:39; Status DC Sodium Chloride (Normal Saline Flush) 10 ml 1X PRN PRN IV AP catheter pack; Start 09/15/18 at 09:15; Stop 09/16/18 at 09:14; Status DC Sodium Chloride (Normal Saline Flush) 10 ml 1X PRN PRN IV ONCOLOGY COORDINATOR catheter pack; Start 09/15/18 at 09:15; Stop 09/16/18 at 09:14; Status DC Info (PHARMACY MONITORING -- do not chart) 1 each PRN DAILY PRN MC SEE COMMENTS; Start 09/15/18 at 09:15; Stop 09/15/18 at 09:15; Status DC Info (PHARMACY MONITORING -- do not chart) 1 each PRN DAILY PRN MC SEE COMMENTS; Start 09/15/18 at 09:15; Stop 09/15/18 at 09:15; Status DC Sodium Chloride 1,000 ml @ 100 mls/hr Q10H PRN IV HYPOTENSION ; Start 09/15/18 at 09:45 Magnesium Sulfate 50 ml @ 25 mls/hr PRN DAILY PRN IV for Mag < 1.7 on am labs Last administered on 09/16/18at 08:16; Start 09/15/18 at 10:00 Darbepoetin Santana (Aranesp) 60 mcg WEEKLYHS SQ Last administered on 09/15/18at 21:01; Start 09/15/18 at 21:00 Midodrine (Proamatine) 10 mg 3X/WEEK PO Last administered on 09/17/18at 14:10; Start 09/15/18 at 10:30; Stop 09/18/18 at 11:29; Status DC Potassium Chloride (Klor-Con) 40 meq 1X ONCE PO Last administered on 09/16/18at 09:10; Start 09/16/18 at 08:30; Stop 09/16/18 at 08:31; Status DC Magnesium Sulfate 50 ml @ 25 mls/hr 1X ONCE IV ; Start 09/16/18 at 11:00; Stop 09/16/18 at 12:59; Status Cancel Lidocaine/Sodium Bicarbonate (Buffered Lidocaine 1%) 3 ml STK-MED ONCE .ROUTE ; Start 09/16/18 at 10:54; Stop 09/16/18 at 10:55; Status DC Lidocaine/Sodium Bicarbonate (Buffered Lidocaine 1%) 6 ml 1X ONCE IJ Last administered on 09/16/18at 11:15; Start 09/16/18 at 11:15; Stop 09/16/18 at 11:16; Status DC Sodium Chloride 1,000 ml @ 1,000 mls/hr Q1H PRN IV hypotension; Start 09/17/18 at 07:08; Stop 09/17/18 at 13:07; Status DC Albumin Human 200 ml @ 200 mls/hr 1X PRN PRN IV Hypotension Last administered on 09/17/18at 10:09; Start 09/17/18 at 07:15; Stop 09/17/18 at 13:14; Status DC Midodrine (Proamatine) 5 mg 1X ONCE PO Last administered on 09/17/18at 08:03; Start 09/17/18 at 07:15; Stop 09/17/18 at 07:16; Status DC Sodium Chloride 1,000 ml @ 400 mls/hr Q2H30M PRN IV PATENCY; Start 09/17/18 at 07:08; Stop 09/17/18 at 19:07; Status DC Info (PHARMACY MONITORING -- do not chart) 1 each PRN DAILY PRN MC SEE COMMENTS; Start 09/17/18 at 07:15; Stop 09/17/18 at 07:15; Status DC Info (PHARMACY MONITORING -- do not chart) 1 each PRN DAILY PRN MC SEE COMMENTS; Start 09/17/18 at 07:15 Levofloxacin/ Dextrose (Levaquin Per Pharmacy) 1 each PRN DAILY PRN MC SEE COMMENTS; Start 09/17/18 at 09:30 Levofloxacin/ Dextrose 100 ml @ 100 mls/hr 1X ONCE IV Last administered on 09/17/18at 17:34; Start 09/17/18 at 10:00; Stop 09/17/18 at 10:59; Status DC Levofloxacin/ Dextrose 50 ml @ 50 mls/hr Q48H IV ; Start 09/19/18 at 16:00 Lactobacillus Rhamnosus (Culturelle) 1 cap BID PO Last administered on 9at 08:10; Start 09/17/18 at 21:00 Lidocaine/Sodium Bicarbonate (Buffered Lidocaine 1%) 3 ml STK-MED ONCE .ROUTE ; Start 09/17/18 at 14:08; Stop 09/17/18 at 14:09; Status DC Albumin Human 200 ml @ As Directed STK-MED ONCE IV ; Start 09/17/18 at 14:49; Stop 09/17/18 at 14:50; Status DC Albumin Human 100 ml @ 100 mls/hr 1X ONCE IV Last administered on 09/17/18at 15:15; Start 09/17/18 at 15:00; Stop 09/17/18 at 15:59; Status DC Albumin Human 100 ml @ 100 mls/hr 1X ONCE IV Last administered on 09/17/18at 18:41; Start 09/17/18 at 15:00; Stop 09/17/18 at 15:59; Status DC Albumin Human 50 ml @ 50 mls/hr 1X ONCE IV Last administered on 09/17/18at 16:53; Start 09/17/18 at 16:00; Stop 09/17/18 at 16:59; Status DC Midodrine (Proamatine) 2.5 mg [id number] PO Last administered on 09/19/18at 05:53; Start 09/18/18 at 13:00 Magnesium Sulfate 50 ml @ 25 mls/hr 1X ONCE IV Last administered on 09/18/18at 20:23; Start 09/18/18 at 21:00; Stop 09/18/18 at 22:59; Status DC Active Scripts Active Midodrine Hcl 5 Mg Tablet 10 Mg PO [id number] 14 Days Reported Benadryl (Diphenhydramine Hcl) 25 Mg Capsule 25 Mg PO Q6HRS Calcium Acetate 667 Mg Tablet 667 Mg PO TIDWMEALS Dialyvite Tablet (Folic Acid/Vitamin B Comp W-C) 1 Each Tablet 1 Each PO DAILY Midodrine Hcl 5 Mg Tablet 5 Mg PO TID Cyclobenzaprine Hcl 5 Mg Tablet 1 Tab PO TID Omeprazole 40 Mg Capsule.dr 1 Cap PO DAILY Xifaxan (Rifaximin) 550 Mg Tablet 1 Tab PO BID Fusion Plus Capsule (Iron,Fum&Ps/Fa/Vit B&C#18/L.ca) 1 Each Capsule 1 Each PO Albuterol Sulfate Conc Neb Soln (Albuterol Sulfate) 2.5 Mg/0.5 Ml Vial.neb 2.5 Mg NEB Q6HRS PRN Lactulose 20 Gm/30 Ml Solution 20 Gm PO TID Lantus Solostar (Insulin Glargine,Hum.rec.anlog) 100 Unit/1 Ml Insuln.pen 0 SQ HS SSI Calcium + Vitamin D Tablet (Calcium Carbonate/Vitamin D3) 1 Each Tablet 1 Each PO Albuterol Sulfate Hfa Inhaler (Albuterol Sulfate) 8.5 Gm Hfa.aer.ad 8.5 Gm IH Novolog Flexpen (Insulin Aspart) 100 Unit/1 Ml Insuln.pen 0 SQ TIDAC ssi Synthroid (Levothyroxine Sodium) 25 Mcg Tablet 300 Mcg PO DAILY Flovent 110MCG Hfa (Fluticasone Propionate) 12 Gm Aer.w.adap 12 Gm IH Vitals/I & O Vital Sign - Last 24 Hours 09/18/18 09/18/18 09/18/18 09/18/18 11:00 13:50 15:00 15:46 Temp 99.6 99.6 99.6 99.6 Pulse 115 115 105 Resp 16 16 B/P (MAP) 89/32 (51) 89/32 92/25 (47) Pulse Ox 98 97 98 O2 Delivery Nasal Cannula Nasal Cannula Nasal Cannula O2 Flow Rate 2.0 2.0 2.5 09/18/18 09/18/18 09/18/18 09/18/18 18:07 19:00 20:00 20:32 Temp 99.7 99.7 Pulse 105 105 Resp 20 B/P (MAP) 92/25 84/34 (51) Pulse Ox 94 98 O2 Delivery Room Air Nasal Cannula Nasal Cannula O2 Flow Rate 2.0 2.5 09/18/18 09/18/18 09/19/18 09/19/18 21:39 23:00 03:00 05:53 Temp 98.9 98.8 98.9 98.8 Pulse 105 107 109 105 Resp 20 20 B/P (MAP) 94/35 (54) 98/40 (59) 104/42 (62) 81/34 Pulse Ox 91 93 O2 Delivery Room Air Nasal Cannula O2 Flow Rate 2.0 09/19/18 09/19/18 09/19/18 07:00 08:00 08:01 Temp 98.6 98.6 Pulse 103 Resp 16 B/P (MAP) 103/46 (65) Pulse Ox 91 93 O2 Delivery Room Air Nasal Cannula Room Air O2 Flow Rate 2.0 Intake and Output 09/18/18 09/18/18 09/19/18 14:59 22:59 06:59 Intake Total 360 ml 440 ml 420 ml Balance 360 ml 440 ml 420 ml SULTANA HERNANDES III DO September 19, 2018 10:55
[2018-09-19 11:00] VITALS: BP 87/39
--- NOTE | 2018-09-19 11:38 | NUR ---
ALEXANDER following pt. [place] and [facility] still negotiating on payments. Will continue to follow.
--- NOTE | 2018-09-19 11:43 | PDOC ---
Renal-Progress Notes Subjective Notes Notes NOTHING NEW History of Present Illness Hx of present illness STABLE Vitals Vitals Vital Signs Date Time Temp Pulse Resp B/P (MAP) Pulse Ox O2 Delivery O2 Flow Rate FiO2 09/19/18 11:32 Room Air 09/19/18 11:00 98.6 107 18 87/39 (55) 96 98.6 09/19/18 08:00 2.0 Weight Weight [ ] I.O. Intake and Output Intake and Output 09/19/18 07:00 Intake Total 1220 ml Balance 1220 ml Intake Oral 1220 ml # Bowel Movements 5 Labs Labs Laboratory Tests Test 09/18/18 16:33 09/18/18 20:33 09/19/18 05:30 09/19/18 07:44 Glucose (Fingerstick) 106 mg/dL (70-99) 148 mg/dL (70-99) 259 mg/dL (70-99) Magnesium Level 2.2 mg/dL (1.8-2.4) Micro Micro Microbiology 09/16/18 Anaerobic/Aerobic Culture, Resulted Pending 09/16/18 Anaerobic Culture Result 1 (JOSE), Resulted Pending 09/16/18 Aerobic Culture - Final, Resulted 09/16/18 Aerobic Culture Result 1 (JOSE) - Final, Resulted 09/16/18 Gram Stain - Final, Resulted 09/16/18 Gram Stain Result 1 (JOSE) - Final, Resulted 09/16/18 Gram Stain Result 2 (JOSE) - Final, Resulted Review of Systems Constitutional: yes: alert Ears/Nose/Throat: Yes: no symptom reported Eyes: Yes: no symptom reported Pulmonary: Yes dyspnea Cardiovascular: Yes no symptom reported Gastrointestional: Yes: nausea Genitourinary: Yes: no symptom reported Musculoskeletal: Yes: no symptom reported Skin: Yes no symptom reported Psychiatric/Neurological: Yes: no symptom reported Endocrine: Yes: no symptom reported Physical Exam General Appearance: no apparent distress Skin: warm Respiratory: decreased breath sounds Heart: S1S2 Abdomen: soft, other (ASCITES) Genitourinary: bladder flat Extremities: edema Neurology: confused Musculoskeletal: Osteoarthritis Assessment Assessment IMP ESRD ASCITES HYPOTENSION-CHRONIC LIVER FAILURE PLEURAL EFFUSION DM II ENCEPHALOPATHY PLAN THORACENTESIS AND PARACENTESIS NEEDED ARANESP HD TODAY UF TO DW CONT WITH HUNG FIELDS MD September 19, 2018 11:43
--- NOTE | 2018-09-19 11:43 | PDOC ---
PULMONARY PROGRESS NOTES Subjective PT NOT SOA feels better Vitals Vital Signs Date Time Temp Pulse Resp B/P (MAP) Pulse Ox O2 Delivery O2 Flow Rate FiO2 09/19/18 11:32 Room Air 09/19/18 11:00 98.6 107 18 87/39 (55) 96 98.6 09/19/18 08:00 2.0 ROS: No Nausea, No Chest Pain, No Abdominal Pain, No Increase Cough General: Alert HEENT: Other (nc at perrl nose throat clear) Lungs: Other (decrease bs) Cardiovascular: S1, S2 Abdomen: Soft, Non-tender, Other Neuro Exam: Alert Extremities: Other (1+edema) Skin: Warm Labs Laboratory Tests Test 09/17/18 13:37 09/17/18 16:54 09/17/18 20:47 09/18/18 05:55 Glucose (Fingerstick) 129 mg/dL (70-99) 250 mg/dL (70-99) 128 mg/dL (70-99) Magnesium Level 1.6 mg/dL (1.8-2.4) Test 09/18/18 08:02 09/18/18 11:39 09/18/18 16:33 09/18/18 20:33 Glucose (Fingerstick) 139 mg/dL (70-99) 217 mg/dL (70-99) 106 mg/dL (70-99) 148 mg/dL (70-99) Test 09/19/18 05:30 09/19/18 07:44 Magnesium Level 2.2 mg/dL (1.8-2.4) Glucose (Fingerstick) 259 mg/dL (70-99) Laboratory Tests Test 09/18/18 16:33 09/18/18 20:33 09/19/18 05:30 09/19/18 07:44 Glucose (Fingerstick) 106 mg/dL (70-99) 148 mg/dL (70-99) 259 mg/dL (70-99) Magnesium Level 2.2 mg/dL (1.8-2.4) Medications Active Scripts Medications Dose Route/Sig Max Daily Dose Days Date Category Dose Instructions Midodrine Hcl 5 Mg Tablet 10 Mg PO [id number] 09/10/18 Rx Benadryl (Diphenhydramine Hcl) 25 Mg Capsule 25 Mg PO Q6HRS 08/12/18 Reported Calcium Acetate 667 Mg Tablet 667 Mg PO TIDWMEALS 07/03/18 Reported Dialyvite Tablet (Folic Acid/Vitamin B Comp W-C) 1 Each Tablet 1 Each PO DAILY 07/03/18 Reported Midodrine Hcl 5 Mg Tablet 5 Mg PO TID 06/25/18 Reported Cyclobenzaprine Hcl 5 Mg Tablet 1 Tab PO TID 06/10/18 Reported Omeprazole 40 Mg Capsule.dr 1 Cap PO DAILY 05/01/18 Reported Xifaxan (Rifaximin) 550 Mg Tablet 1 Tab PO BID 02/07/18 Reported Fusion Plus Capsule (Iron,Fum&Ps/Fa/Vit B&C#18/L.ca) 1 Each Capsule 1 Each PO 05/09/17 Reported Albuterol Sulfate Conc Neb Soln (Albuterol Sulfate) 2.5 Mg/0.5 Ml Vial.neb 2.5 Mg NEB Q6HRS PRN 08/03/15 Reported Lactulose 20 Gm/30 Ml Solution 20 Gm PO TID 08/03/15 Reported Lantus Solostar (Insulin Glargine,Hum.rec.anlog) 100 Unit/1 Ml Insuln.pen 0 SQ HS 06/10/13 Reported SSI Calcium + Vitamin D Tablet (Calcium Carbonate/Vitamin D3) 1 Each Tablet 1 Each PO 06/02/13 Reported Albuterol Sulfate Hfa Inhaler (Albuterol Sulfate) 8.5 Gm Hfa.aer.ad 8.5 Gm IH 06/02/13 Reported Novolog Flexpen (Insulin Aspart) 100 Unit/1 Ml Insuln.pen 0 SQ TIDAC 06/02/13 Reported ssi Synthroid (Levothyroxine Sodium) 25 Mcg Tablet 300 Mcg PO DAILY 06/02/13 Reported Flovent 110MCG Hfa (Fluticasone Propionate) 12 Gm Aer.w.adap 12 Gm IH 06/02/13 Reported Comments CXR 09/16 improved aeration left lung Impression . IMPRESSION: 1. Dyspnea, multifactorial in etiology including a left pleural effusion, volume overload, s/p left thoracentesis, no hemothorax, 2. Abnormal chest x-ray with left pleural effusion, I suspect this is secondary to her end-stage liver disease and / possible traumatic. Other differential diagnosis including inflammatory, infectious and malignancy 3. Chronic obstructive pulmonary disease. 4. End-stage renal disease on hemodialysis. 5. End-stage liver disease, cirrhosis../ DIAZ/NAFLD 6. Leukocytosis. 7. Anemia. 8. Thrombocytopenia. 9. Ex-smoker. Plan . THORACENTESIS DONE ANALYSIS REVIEWED/ TRANSUDATE/ RELATED TO CIRRHOSIS/ CULTURES NEG PT NOT SOA AT [facility] RESP STATUS FOLLOW RENAL GI REC ABX IRINEOUIN CRISTIAN HERNANDEZ MD September 19, 2018 11:43
[2018-09-19 15:00] VITALS: BP 88/37
--- NOTE | 2018-09-19 16:07 | NUR ---
ALEXANDER following pt. [facility] declined to agree on payments and are offering a very low reimbursement rate. [facility] declined to take pt as they would be losing money due to pt's complex medical needs. Discussed with pt's daughter, Marilin via phone and informed her pt is eligible for LTC placement and that would be covered by insurance. Daughter reported they wanted pt to get some rehab and return home. Daughter also reported they just signed a new lease for a new home with no steps so pt can easily get in and out of her home but wont get the pitts until Saturday. Daughter reports Pt's current home has around 14 stairs and they are having difficulty moving her in and out of the home for OP HD. SW informed daughter pt is ready for next level of care at this time. Pt's daughter reported she will reach out to pt's home care company [employer] to see if they can staff pt for the weekend so they can take her home. Daughter also to reach out to [employer] office regarding application for Medicare. Pt's daughter agreeable with [facility]. SW discussed this matter with Rachel from [facility] and they will be able to take her over the weekend. Discussed with RN.
--- NOTE | 2018-09-19 17:40 | NUR ---
Holding Levoquin until after dialysis today. Kevon in dialysis states he is unsure what time pt will be taken for dialysis, but she is on the schedule for today.
[2018-09-19 19:00] VITALS: BP 101/47
[2018-09-19] MEDS ORDERED: IV NORMAL SALINE 1000ML BAG 1,000 ML IV PRN ×2 (20:42)
[2018-09-19] MEDS ORDERED: 0.9 % SODIUM CHLORIDE 10 ML DISP.SYRIN. IV PRN ×2 (20:45)
[2018-09-19] MEDS ORDERED: DIALYSIS PATIENT. MC PRN ×2 (20:45)
[2018-09-20] MEDS: LACTULOSE 20 GM/30 ML SOLUTION. PO SCH ×5 (00:23→21:00)
[2018-09-20] MEDS: LACTOBACILLUS RHAMNOSUS GG 1 CAPSULE. PO SCH ×3 (00:23→23:13)
[2018-09-20] MEDS: rifAXIMin 550 MG TABLET PO SCH ×3 (00:23→23:13)
--- NOTE | 2018-09-20 01:06 | NUR ---
patient was on dialysis and she came back to her room at 0000. The nurse checked her Blood sugar, which was 125. Lantus was put on hold. The nurse will continue to monitor the patient.
[2018-09-20 03:00] VITALS: BP 90/45
[2018-09-20] MEDS: LEVOTHYROXINE 150 MCG TABLET PO SCH (06:41)
[2018-09-20 07:00] VITALS: BP 99/32
[2018-09-20] MEDS: ALBUTEROL SULFATE 2.5 MG/3 ML NEBU. NEB SCH ×4 (07:04→21:16)
[2018-09-20] MEDS: BUDESONIDE 0.5 MG/2 ML NEBU. NEB SCH ×2 (07:04→21:16)
[2018-09-20] MEDS: FOLIC/VIT B COMP W-C (RENAL) TABLET. PO SCH (09:06)
[2018-09-20] MEDS: PANTOPRAZOLE 40 MG TABLET.DR. PO SCH (09:06)
[2018-09-20] MEDS: CALCIUM ACETATE 667 MG CAPSULE PO SCH ×3 (09:06→17:39)
[2018-09-20] MEDS: MIDODRINE 2.5 MG TABLET PO SCH ×3 (09:07→18:00)
[2018-09-20] MEDS: INSULIN LISPRO 300 UNITS/3 ML INSULN.PEN. SQ SCH ×6 (09:18→18:19)
[2018-09-20 11:00] VITALS: BP 92/27
--- NOTE | 2018-09-20 11:07 | PDOC ---
PULMONARY PROGRESS NOTES Subjective PT NOT SOA feels better Vitals Vital Signs Date Time Temp Pulse Resp B/P (MAP) Pulse Ox O2 Delivery O2 Flow Rate FiO2 09/20/18 09:07 110 99/32 09/20/18 08:00 Nasal Cannula 09/20/18 07:07 99 09/20/18 07:00 98.1 18 98.1 09/19/18 20:30 2.0 ROS: No Nausea, No Chest Pain, No Abdominal Pain, No Increase Cough General: Alert HEENT: Other (nc at perrl nose throat clear) Lungs: Other (decrease bs) Cardiovascular: S1, S2 Abdomen: Soft, Non-tender, Other Neuro Exam: Alert Extremities: Other (1+edema) Skin: Warm Labs Laboratory Tests Test 09/18/18 11:39 09/18/18 16:33 09/18/18 20:33 09/19/18 05:30 Glucose (Fingerstick) 217 mg/dL (70-99) 106 mg/dL (70-99) 148 mg/dL (70-99) Magnesium Level 2.2 mg/dL (1.8-2.4) Test 09/19/18 07:44 09/19/18 12:18 09/19/18 17:47 09/19/18 20:37 Glucose (Fingerstick) 259 mg/dL (70-99) 249 mg/dL (70-99) 270 mg/dL (70-99) 154 mg/dL (70-99) Test 09/20/18 00:37 09/20/18 05:45 09/20/18 07:58 Glucose (Fingerstick) 125 mg/dL (70-99) 234 mg/dL (70-99) Magnesium Level 1.9 mg/dL (1.8-2.4) Laboratory Tests Test 09/19/18 12:18 09/19/18 17:47 09/19/18 20:37 09/20/18 00:37 Glucose (Fingerstick) 249 mg/dL (70-99) 270 mg/dL (70-99) 154 mg/dL (70-99) 125 mg/dL (70-99) Test 09/20/18 05:45 09/20/18 07:58 Magnesium Level 1.9 mg/dL (1.8-2.4) Glucose (Fingerstick) 234 mg/dL (70-99) Medications Active Scripts Medications Dose Route/Sig Max Daily Dose Days Date Category Dose Instructions Midodrine Hcl 5 Mg Tablet 10 Mg PO [id number] 14 09/10/18 Rx Benadryl (Diphenhydramine Hcl) 25 Mg Capsule 25 Mg PO Q6HRS 08/12/18 Reported Calcium Acetate 667 Mg Tablet 667 Mg PO TIDWMEALS 07/03/18 Reported Dialyvite Tablet (Folic Acid/Vitamin B Comp W-C) 1 Each Tablet 1 Each PO DAILY 07/03/18 Reported Midodrine Hcl 5 Mg Tablet 5 Mg PO TID 06/25/18 Reported Cyclobenzaprine Hcl 5 Mg Tablet 1 Tab PO TID 06/10/18 Reported Omeprazole 40 Mg Capsule. 1 Cap PO DAILY 05/01/18 Reported Xifaxan (Rifaximin) 550 Mg Tablet 1 Tab PO BID 02/07/18 Reported Fusion Plus Capsule (Iron,Fum&Ps/Fa/Vit B&C#18/L.ca) 1 Each Capsule 1 Each PO 05/09/17 Reported Albuterol Sulfate Conc Neb Soln (Albuterol Sulfate) 2.5 Mg/0.5 Ml Vial.neb 2.5 Mg NEB Q6HRS PRN 08/03/15 Reported Lactulose 20 Gm/30 Ml Solution 20 Gm PO TID 08/03/15 Reported Lantus Solostar (Insulin Glargine,Hum.rec.anlog) 100 Unit/1 Ml Insuln.pen 0 SQ HS 06/10/13 Reported SSI Calcium + Vitamin D Tablet (Calcium Carbonate/Vitamin D3) 1 Each Tablet 1 Each PO 06/02/13 Reported Albuterol Sulfate Hfa Inhaler (Albuterol Sulfate) 8.5 Gm Hfa.aer.ad 8.5 Gm IH 06/02/13 Reported Novolog Flexpen (Insulin Aspart) 100 Unit/1 Ml Insuln.pen 0 SQ TIDAC 06/02/13 Reported ssi Synthroid (Levothyroxine Sodium) 25 Mcg Tablet 300 Mcg PO DAILY 06/02/13 Reported Flovent 110MCG Hfa (Fluticasone Propionate) 12 Gm Aer.w.adap 12 Gm IH 06/02/13 Reported Comments CXR 09/16 improved aeration left lung Impression . IMPRESSION: 1. Dyspnea, multifactorial in etiology including a left pleural effusion, volume overload, s/p left thoracentesis, no hemothorax, 2. Abnormal chest x-ray with left pleural effusion, I suspect this is secondary to her end-stage liver disease and / possible traumatic. Other differential diagnosis including inflammatory, infectious and malignancy 3. Chronic obstructive pulmonary disease. 4. End-stage renal disease on hemodialysis. 5. End-stage liver disease, cirrhosis../ DAIZ/NAFLD 6. Leukocytosis. 7. Anemia. 8. Thrombocytopenia. 9. Ex-smoker. Plan . THORACENTESIS DONE ANALYSIS REVIEWED/ TRANSUDATE/ RELATED TO CIRRHOSIS/ CULTURES NEG PT NOT SOA AT [facility] MONIT[facility] RESP STATUS FOLLOW RENAL GI REC ABX LEVLASHAWNUIN OK WITH [facility] CRISTIAN AGUIRRE MD Sep 20, 2018 11:07
--- NOTE | 2018-09-20 11:14 | PDOC ---
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 Status post drainage of 9.6 L of ascites fluid yesterday Recent drainage of 1.5 L of pleuritic fluid a few days ago hypotension on midodrine Failure to thrive, generalized weakness-lives with a son but does not want any rehabilitation or SNU Moderate to large pleural effusion - IR thoracentesis ESRD on dialysis-, noncompliance, last dialysis during last hospitalization Anemia of ESRD History of recurrent ascites and recurrent paracentesis-she claims paracentesis every weekly Diabetes type 2, HON K with no coma-uncontrolled- Sinus tachycardia Thrombocytopenia, platelets is 139 with no bleeding History GERD-PPI Encephalopathy-chronic stable ASCITES s/p left sided thoracentesis 1.5 09/16 History of Present Illness History of Present Illness Patient seen and examined She is extremely ill Has massive ascites She is still short of breath Requesting discharge but really came get out of bed I discussed this with her nurse I discussed the case with her insurance carrier medical office technician 2 days ago He approved long term on discharge We are awaiting this to be arranged Vitals Vitals Vital Signs Date Time Temp Pulse Resp B/P (MAP) Pulse Ox O2 Delivery O2 Flow Rate FiO2 09/20/18 09:07 110 99/32 09/20/18 08:00 Nasal Cannula 09/20/18 07:07 99 09/20/18 07:00 98.1 18 98.1 09/19/18 20:30 2.0 Physical Exam General: moderate distress, Other (resting with mild snoring) Heart: Regular rate, Normal S1, No murmurs Lungs: Other (decrease bs) Abdomen: Other (severe ascites debilitating to the point it pushes on her diaphragm and she can't breathe) Extremities: No clubbing, No cyanosis, No edema Skin: No rashes, No breakdown, No significant lesion Labs Labs: Laboratory Tests Test 09/19/18 12:18 09/19/18 17:47 09/19/18 20:37 09/20/18 00:37 Glucose (Fingerstick) 249 mg/dL (70-99) 270 mg/dL (70-99) 154 mg/dL (70-99) 125 mg/dL (70-99) Test 09/20/18 05:45 09/20/18 07:58 Magnesium Level 1.9 mg/dL (1.8-2.4) Glucose (Fingerstick) 234 mg/dL (70-99) Review of Systems Review of Systems Complains of weakness Complains of hunger Assessment and Plan Assessmemt and Plan Problems Medical Problems: (1) Fall Status: Acute (2) Left knee pain Status: Acute Severe Boyle syndrome Severe ascites Status post drainage of 9.6 L of ascites fluid yesterday Recent drainage of 1.5 L of pleuritic fluid a few days ago hypotension on midodrine Failure to thrive, generalized weakness-lives with a son but does not want any rehabilitation or SNU Moderate to large pleural effusion - IR thoracentesis ESRD on dialysis-, noncompliance, last dialysis during last hospitalization Anemia of ESRD History of recurrent ascites and recurrent paracentesis-she claims paracentesis every weekly Diabetes type 2, HON K with no coma-uncontrolled- Sinus tachycardia Thrombocytopenia, platelets is 139 with no bleeding History GERD-PPI Encephalopathy-chronic stable ASCITES s/p left sided thoracentesis 1.5 09/16 Plan When necessary thoracentesis and paracentesis Supportive care Eventually we hope to discharge her to long term if we can find a facility that will accept her Home meds PT OT if possible DVT prophylaxis She requests to be full code Long-term prognosis very guarded at best Comment Review of Relevant I have reviewed the following items chante (where applicable) has been applied. Labs Laboratory Tests Test 09/18/18 11:39 09/18/18 16:33 09/18/18 20:33 09/19/18 05:30 Glucose (Fingerstick) 217 mg/dL (70-99) 106 mg/dL (70-99) 148 mg/dL (70-99) Magnesium Level 2.2 mg/dL (1.8-2.4) Test 09/19/18 07:44 09/19/18 12:18 09/19/18 17:47 09/19/18 20:37 Glucose (Fingerstick) 259 mg/dL (70-99) 249 mg/dL (70-99) 270 mg/dL (70-99) 154 mg/dL (70-99) Test 09/20/18 00:37 09/20/18 05:45 09/20/18 07:58 Glucose (Fingerstick) 125 mg/dL (70-99) 234 mg/dL (70-99) Magnesium Level 1.9 mg/dL (1.8-2.4) Laboratory Tests Test 09/19/18 12:18 09/19/18 17:47 09/19/18 20:37 09/20/18 00:37 Glucose (Fingerstick) 249 mg/dL (70-99) 270 mg/dL (70-99) 154 mg/dL (70-99) 125 mg/dL (70-99) Test 09/20/18 05:45 09/20/18 07:58 Magnesium Level 1.9 mg/dL (1.8-2.4) Glucose (Fingerstick) 234 mg/dL (70-99) Microbiology 09/16/18 Anaerobic/Aerobic Culture, Resulted Pending 09/16/18 Anaerobic Culture Result 1 (JOSE), Resulted Pending 09/16/18 Aerobic Culture - Final, Resulted 09/16/18 Aerobic Culture Result 1 (JOSE) - Final, Resulted 09/16/18 Gram Stain - Final, Resulted 09/16/18 Gram Stain Result 1 (JOSE) - Final, Resulted 09/16/18 Gram Stain Result 2 (JOSE) - Final, Resulted Medications Current Medications Fentanyl Citrate (Fentanyl 2ml Vial) 50 mcg 1X ONCE IV Last administered on 09/12/18at 18:15; Start 09/12/18 at 17:45; Stop 09/12/18 at 17:46; Status DC Ondansetron HCl (Zofran) 4 mg PRN Q8HRS PRN IV NAUSEA/VOMITING; Start 09/12/18 at 19:00; Stop 09/13/18 at 07:50; Status DC Fentanyl Citrate (Fentanyl 2ml Vial) 50 mcg PRN Q1HR PRN IV PAIN Last administered on 09/12/18at 19:12; Start 09/12/18 at 19:00; Stop 09/13/18 at 18:59; Status DC Diphenhydramine HCl (Benadryl) 25 mg Q6HRS PO Last administered on 09/14/18at 06:26; Start 09/13/18 at 00:00; Stop 09/14/18 at 08:37; Status DC Lactulose (Lactulose) 20 gm TID PO Last administered on 09/17/18at 13:39; Start 09/12/18 at 21:00 Calcium Acetate (Phoslo) 667 mg TIDWMEALS PO Last administered on 09/20/18 09:06; Start 09/13/18 at 08:00 Cyclobenzaprine HCl (Flexeril) 5 mg TID PO Last administered on 09/14/18at 08:04; Start 09/12/18 at 21:15; Stop 09/14/18 at 08:37; Status DC Vitamin B Complex/ Vitamin C (Tasia-Meliton) 1 tab DAILY PO Last administered on 09/20/18 09:06; Start 09/13/18 at 09:00 Levothyroxine Sodium (Synthroid) 300 mcg DAILY06 PO Last administered on 09/20/18 06:41; Start 09/13/18 at 06:00 Midodrine (Proamatine) 5 mg [id number] PO ; Start 09/13/18 at 07:00; Stop 09/13/18 at 07:00; Status DC Pantoprazole Sodium (Protonix) 40 mg DAILYAC PO Last administered on 09/20/18at 09:06; Start 09/13/18 at 07:30 Sodium Chloride 750 ml @ 375 mls/hr 1X ONCE IV Last administered on 09/12/18at 21:53; Start 09/12/18 at 21:30; Stop 09/12/18 at 23:29; Status DC Midodrine (Proamatine) 5 mg [id number] PO Last administered on 09/12/18at 21:55; Start 09/12/18 at 22:00; Stop 09/13/18 at 07:54; Status DC Ondansetron HCl (Zofran) 4 mg PRN Q6HRS PRN IV NAUSEA/VOMITING; Start 09/13/18 at 08:00 Fentanyl Citrate (Fentanyl 2ml Vial) 25 mcg PRN Q2HR PRN IV PAIN; Start 09/13/18 at 08:00 Albuterol Sulfate (Ventolin Hfa) 2.5 puff QID IH ; Start 09/13/18 at 09:00; Status UNV Rifaximin (Xifaxan) 550 mg BID PO Last administered on 09/20/18at 09:06; Start 09/13/18 at 09:00 Albuterol Sulfate (Ventolin Neb Soln) 2.5 mg PRN Q6HRS PRN NEB SHORTNESS OF BREATH; Start 09/13/18 at 08:00 Midodrine (Proamatine) 10 mg [id number] PO Last administered on 09/17/18at 06:07; Start 09/13/18 at 08:00; Stop 09/17/18 at 09:51; Status DC Albuterol Sulfate (Ventolin Neb Soln) 2.5 mg RTQID NEB Last administered on at 07:04; Start 09/13/18 at 09:00 Budesonide (Pulmicort) 0.5 mg RTBID NEB Last administered on 09/20/18at 07:04; Start 09/13/18 at 20:00 Budesonide (Pulmicort) 0.5 mg 1X ONCE NEB Last administered on 09/13/18at 13:01; Start 09/13/18 at 08:45; Stop 09/13/18 at 08:46; Status DC Insulin Human Lispro (HumaLOG) 15 units 1X ONCE SQ Last administered on 09/13/18at 10:02; Start 09/13/18 at 09:30; Stop 09/13/18 at 09:31; Status DC Insulin Glargine (Lantus) 20 units QHS SQ Last administered on 09/17/18at 21:01; Start 09/13/18 at 21:00 Insulin Human Lispro (HumaLOG) 0-9 UNITS TIDWMEALS SQ Last administered on 09/20/18 09:18; Start 09/13/18 at 12:00 Dextrose (Dextrose 50%-Water Syringe) 12.5 gm PRN Q15MIN PRN IV SEE COMMENTS; Start 09/13/18 at 09:15 Insulin Human Lispro (HumaLOG) 10 units TIDWMEALS SQ Last administered on 09/20/18at 09:19; Start 09/13/18 at 12:00 Sodium Chloride 1,000 ml @ 100 mls/hr Q10H IV Last administered on 09/15/18at 05:14; Start 09/13/18 at 12:15; Stop 09/15/18 at 09:43; Status DC Sodium Chloride 500 ml @ 500 mls/hr 1X ONCE IV Last administered on 09/13/18at 12:22; Start 09/13/18 at 12:15; Stop 09/13/18 at 13:14; Status DC Sodium Chloride 1,000 ml @ 1,000 mls/hr Q1H PRN IV hypotension; Start 09/13/18 at 13:20; Stop 09/13/18 at 19:19; Status DC Albumin Human 200 ml @ 200 mls/hr 1X PRN PRN IV Hypotension Last administered on 09/13/18at 13:45; Start 09/13/18 at 13:30; Stop 09/13/18 at 19:29; Status DC Sodium Chloride 1,000 ml @ 400 mls/hr Q2H30M PRN IV PATENCY; Start 09/13/18 at 13:20; Stop 09/14/18 at 01:19; Status DC Info (PHARMACY MONITORING -- do not chart) 1 each PRN DAILY PRN MC SEE COMMENTS; Start 09/13/18 at 13:30; Status UNV Info (PHARMACY MONITORING -- do not chart) 1 each PRN DAILY PRN MC SEE COMMENTS; Start 09/13/18 at 13:30; Stop 09/17/18 at 09:51; Status DC Sodium Chloride 1,000 ml @ 1,000 mls/hr Q1H PRN IV hypotension; Start 09/15/18 at 09:05; Stop 09/15/18 at 09:39; Status DC Sodium Chloride (Normal Saline Flush) 10 ml 1X PRN PRN IV AP catheter pack; Start 09/15/18 at 09:15; Stop 09/16/18 at 09:14; Status DC Sodium Chloride (Normal Saline Flush) 10 ml 1X PRN PRN IV HAND COMPOSITOR catheter pack; S tart 09/15/18 at 09:15; Stop 09/16/18 at 09:14; Status DC Info (PHARMACY MONITORING -- do not chart) 1 each PRN DAILY PRN MC SEE COMMENTS; Start 09/15/18 at 09:15; Stop 09/15/18 at 09:15; Status DC Info (PHARMACY MONITORING -- do not chart) 1 each PRN DAILY PRN MC SEE COMMENTS; Start 09/15/18 at 09:15; Stop 09/15/18 at 09:15; Status DC Sodium Chloride 1,000 ml @ 100 mls/hr Q10H PRN IV HYPOTENSION ; Start 09/15/18 at 09:45 Magnesium Sulfate 50 ml @ 25 mls/hr PRN DAILY PRN IV for Mag < 1.7 on am labs Last administered on 09/16/18at 08:16; Start 09/15/18 at 10:00 Darbepoetin Santana (Aranesp) 60 mcg WEEKLYHS SQ Last administered on 09/15/18at 21:01; Start 09/15/18 at 21:00 Midodrine (Proamatine) 10 mg 3X/WEEK PO Last administered on 09/17/18at 14:10; Start 09/15/18 at 10:30; Stop 09/18/18 at 11:29; Status DC Potassium Chloride (Klor-Con) 40 meq 1X ONCE PO Last administered on 09/16/18at 09:10; Start 09/16/18 at 08:30; Stop 09/16/18 at 08:31; Status DC Magnesium Sulfate 50 ml @ 25 mls/hr 1X ONCE IV ; Start 09/16/18 at 11:00; Stop 09/16/18 at 12:59; Status Cancel Lidocaine/Sodium Bicarbonate (Buffered Lidocaine 1%) 3 ml STK-MED ONCE .ROUTE ; Start 09/16/18 at 10:54; Stop 09/16/18 at 10:55; Status DC Lidocaine/Sodium Bicarbonate (Buffered Lidocaine 1%) 6 ml 1X ONCE IJ Last administered on 09/16/18at 11:15; Start 09/16/18 at 11:15; Stop 09/16/18 at 11:16; Status DC Sodium Chloride 1,000 ml @ 1,000 mls/hr Q1H PRN IV hypotension; Start 09/17/18 at 07:08; Stop 09/17/18 at 13:07; Status DC Albumin Human 200 ml @ 200 mls/hr 1X PRN PRN IV Hypotension Last administered on 09/17/18at 10:09; Start 09/17/18 at 07:15; Stop 09/17/18 at 13:14; Status DC Midodrine (Proamatine) 5 mg 1X ONCE PO Last administered on 09/17/18at 08:03; Start 09/17/18 at 07:15; Stop 09/17/18 at 07:16; Status DC Sodium Chloride 1,000 ml @ 400 mls/hr Q2H30M PRN IV PATENCY; Start 09/17/18 at 07:08; Stop 09/17/18 at 19:07; Status DC Info (PHARMACY MONITORING -- do not chart) 1 each PRN DAILY PRN MC SEE COMMENTS; Start 09/17/18 at 07:15; Stop 09/17/18 at 07:15; Status DC Info (PHARMACY MONITORING -- do not chart) 1 each PRN DAILY PRN MC SEE COMMENTS; Start 09/17/18 at 07:15; Stop 09/19/18 at 20:51; Status DC Levofloxacin/ Dextrose (Levaquin Per Pharmacy) 1 each PRN DAILY PRN MC SEE COMMENTS; Start 09/17/18 at 09:30 Levofloxacin/ Dextrose 100 ml @ 100 mls/hr 1X ONCE IV Last administered on 09/17/18at 17:34; Start 09/17/18 at 10:00; Stop 09/17/18 at 10:59; Status DC Levofloxacin/ Dextrose 50 ml @ 50 mls/hr Q48H IV Last administered on 09/20/18at 00:22; Start 09/19/18 at 16:00 Lactobacillus Rhamnosus (Culturelle) 1 cap BID PO Last administered on 09/20/18at 09:06; Start 09/17/18 at 21:00 Lidocaine/Sodium Bicarbonate (Buffered Lidocaine 1%) 3 ml STK-MED ONCE .ROUTE ; Start 09/17/18 at 14:08; Stop 09/17/18 at 14:09; Status DC Albumin Human 200 ml @ As Directed STK-MED ONCE IV ; Start 09/17/18 at 14:49; Stop 09/17/18 at 14:50; Status DC Albumin Human 100 ml @ 100 mls/hr 1X ONCE IV Last administered on 09/17/18at 15:15; Start 09/17/18 at 15:00; Stop 09/17/18 at 15:59; Status DC Albumin Human 100 ml @ 100 mls/hr 1X ONCE IV Last administered on 09/17/18at 18:41; Start 09/17/18 at 15:00; Stop 09/17/18 at 15:59; Status DC Albumin Human 50 ml @ 50 mls/hr 1X ONCE IV Last administered on 09/17/18at 16:53; Start 09/17/18 at 16:00; Stop 09/17/18 at 16:59; Status DC Midodrine (Proamatine) 2.5 mg [id number] PO Last administered on 09/20/18at 09:07; Start 09/18/18 at 13:00 Magnesium Sulfate 50 ml @ 25 mls/hr 1X ONCE IV Last administered on 09/18/18at 20:23; Start 09/18/18 at 21:00; Stop 09/18/18 at 22:59; Status DC Sodium Chloride 1,000 ml @ 1,000 mls/hr Q1H PRN IV hypotension; Start 09/19/18 at 20:42; Stop 09/20/18 at 02:41; Status DC Sodium Chloride (Normal Saline Flush) 10 ml 1X PRN PRN IV AP catheter pack; Start 09/19/18 at 20:45; Stop 09/20/18 at 20:44 Sodium Chloride (Normal Saline Flush) 10 ml 1X PRN PRN IV HAND COMPOSITOR catheter pack; Start 09/19/18 at 20:45; Stop 09/20/18 at 20:44 Sodium Chloride 1,000 ml @ 400 mls/hr Q2H30M PRN IV PATENCY; Start 09/19/18 at 20:42; Stop 09/20/18 at 08:41; Status DC Info (PHARMACY MONITORING -- do not chart) 1 each PRN DAILY PRN MC SEE COMMENTS; Start 09/19/18 at 20:45; Stop 09/19/18 at 20:50; Status DC Info (PHARMACY MONITORING -- do not chart) 1 each PRN DAILY PRN MC SEE COMMENTS; Start 09/19/18 at 20:45 Active Scripts Active Midodrine Hcl 5 Mg Tablet 10 Mg PO [id number] 14 Days Reported Benadryl (Diphenhydramine Hcl) 25 Mg Capsule 25 Mg PO Q6HRS Calcium Acetate 667 Mg Tablet 667 Mg PO TIDWMEALS Dialyvite Tablet (Folic Acid/Vitamin B Comp W-C) 1 Each Tablet 1 Each PO DAILY Midodrine Hcl 5 Mg Tablet 5 Mg PO TID Cyclobenzaprine Hcl 5 Mg Tablet 1 Tab PO TID Omeprazole 40 Mg Capsule. 1 Cap PO DAILY Xifaxan (Rifaximin) 550 Mg Tablet 1 Tab PO BID Fusion Plus Capsule (Iron,Fum&Ps/Fa/Vit B&C#18/L.ca) 1 Each Capsule 1 Each PO Albuterol Sulfate Conc Neb Soln (Albuterol Sulfate) 2.5 Mg/0.5 Ml Vial.neb 2.5 Mg NEB Q6HRS PRN Lactulose 20 Gm/30 Ml Solution 20 Gm PO TID Lantus Solostar (Insulin Glargine,Hum.rec.anlog) 100 Unit/1 Ml Insuln.pen 0 SQ HS SSI Calcium + Vitamin D Tablet (Calcium Carbonate/Vitamin D3) 1 Each Tablet 1 Each PO Albuterol Sulfate Hfa Inhaler (Albuterol Sulfate) 8.5 Gm Hfa.aer.ad 8.5 Gm IH Novolog Flexpen (Insulin Aspart) 100 Unit/1 Ml Insuln.pen 0 SQ TIDAC ssi Synthroid (Levothyroxine Sodium) 25 Mcg Tablet 300 Mcg PO DAILY Flovent 110MCG Hfa (Fluticasone Propionate) 12 Gm Aer.w.adap 12 Gm IH Vitals/I & O Vital Sign - Last 24 Hours 09/19/18 09/19/18 09/19/18 09/19/18 11:32 13:39 15:00 18:26 Temp 98.6 98.6 Pulse 107 109 109 Resp 18 B/P (MAP) 87/39 88/37 (54) 88/37 Pulse Ox 93 O2 Delivery Room Air Room Air 09/19/18 09/19/18 09/20/18 09/20/18 19:00 20:30 03:00 07:00 Temp 101.0 98.4 98.1 101.0 98.4 98.1 Pulse 104 109 110 Resp 18 18 18 B/P (MAP) 101/47 (65) 90/45 (60) 99/32 (54) Pulse Ox 91 90 92 O2 Delivery Room Air Nasal Cannula Room Air Room Air O2 Flow Rate 2.0 09/20/18 09/20/18 09/20/18 09/20/18 07:06 07:07 08:00 09:07 Pulse 110 B/P (MAP) 99/32 Pulse Ox 99 99 O2 Delivery Room Air Room Air Nasal Cannula Intake and Output 09/19/18 09/19/18 09/20/18 14:59 22:59 06:59 Intake Total 650 ml 280 ml 300 ml Output Total 1 ml 0 ml Balance 649 ml 280 ml 300 ml FARZANEH HERNANDESL K III DO Sep 20, 2018 11:14
[2018-09-20 15:00] VITALS: BP 99/43
[2018-09-20 19:00] VITALS: BP 96/48
[2018-09-20 22:40] VITALS: BP 96/54
[2018-09-20] MEDS: INSULIN GLARGINE 300 UNITS/3 ML INSULN.PEN. SQ SCH (23:20)
[2018-09-21 03:00] VITALS: BP 110/56
[2018-09-21] MEDS: LEVOTHYROXINE 150 MCG TABLET PO SCH (06:35)
[2018-09-21 07:20] VITALS: BP 95/48
[2018-09-21] MEDS: PANTOPRAZOLE 40 MG TABLET.DR. PO SCH (07:38)
[2018-09-21] MEDS: MIDODRINE 2.5 MG TABLET PO SCH ×3 (07:39→17:07)
[2018-09-21] MEDS: BUDESONIDE 0.5 MG/2 ML NEBU. NEB SCH ×2 (07:40→19:45)
[2018-09-21] MEDS: ALBUTEROL SULFATE 2.5 MG/3 ML NEBU. NEB SCH ×4 (07:41→19:46)
[2018-09-21] MEDS: INSULIN LISPRO 300 UNITS/3 ML INSULN.PEN. SQ SCH ×6 (08:20→17:12)
[2018-09-21] MEDS: LACTOBACILLUS RHAMNOSUS GG 1 CAPSULE. PO SCH ×2 (08:54→21:59)
[2018-09-21] MEDS: CALCIUM ACETATE 667 MG CAPSULE PO SCH ×3 (08:54→17:07)
[2018-09-21] MEDS: FOLIC/VIT B COMP W-C (RENAL) TABLET. PO SCH (08:54)
[2018-09-21] MEDS: LACTULOSE 20 GM/30 ML SOLUTION. PO SCH ×3 (08:54→21:00)
[2018-09-21] MEDS: rifAXIMin 550 MG TABLET PO SCH ×2 (08:55→21:59)
[2018-09-21 11:30] VITALS: BP 90/41
--- NOTE | 2018-09-21 11:50 | PDOC ---
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 Status post drainage of 9.6 L of ascites fluid yesterday Recent drainage of 1.5 L of pleuritic fluid a few days ago hypotension on midodrine Failure to thrive, generalized weakness-lives with a son but does not want any rehabilitation or SNU Moderate to large pleural effusion - IR thoracentesis ESRD on dialysis-, noncompliance, last dialysis during last hospitalization Anemia of ESRD History of recurrent ascites and recurrent paracentesis-she claims paracentesis every weekly Diabetes type 2, HON K with no coma-uncontrolled- Sinus tachycardia Thrombocytopenia, platelets is 139 with no bleeding History GERD-PPI Encephalopathy-chronic stable ASCITES s/p left sided thoracentesis 1.5 09/16 History of Present Illness History of Present Illness Patient seen and examined She is extremely ill Resting with no apparent distress Discussed with RN Vitals Vitals Vital Signs Date Time Temp Pulse Resp B/P (MAP) Pulse Ox O2 Delivery O2 Flow Rate FiO2 09/21/18 07:39 104 95/48 09/21/18 07:20 97.8 20 90 Room Air 97.8 09/20/18 20:30 2.0 Physical Exam General: moderate distress, Other (resting with mild snoring) Heart: Regular rate, Normal S1, No murmurs Lungs: Other (decrease bs) Abdomen: Other (severe ascites debilitating to the point it pushes on her diaphragm and she can't breathe) Extremities: No clubbing, No cyanosis, No edema Skin: No rashes, No breakdown, No significant lesion Labs Labs: Laboratory Tests Test 09/20/18 16:55 09/20/18 20:47 09/21/18 07:30 Glucose (Fingerstick) 282 mg/dL (70-99) 283 mg/dL (70-99) 291 mg/dL (70-99) Assessment and Plan Assessmemt and Plan Problems Medical Problems: (1) Fall Status: Acute (2) Left knee pain Status: Acute Severe Boyle syndrome Severe ascites Status post drainage of 9.6 L of ascites fluid yesterday Recent drainage of 1.5 L of pleuritic fluid a few days ago hypotension on midodrine Failure to thrive, generalized weakness-lives with a son but does not want any rehabilitation or SNU Moderate to large pleural effusion - IR thoracentesis ESRD on dialysis-, noncompliance, last dialysis during last hospitalization Anemia of ESRD History of recurrent ascites and recurrent paracentesis-she claims paracentesis every weekly Diabetes type 2, HON K with no coma-uncontrolled- Sinus tachycardia Thrombocytopenia, platelets is 139 with no bleeding History GERD-PPI Encephalopathy-chronic stable ASCITES s/p left sided thoracentesis 1.5 09/16 Plan When necessary thoracentesis and paracentesis Supportive care Eventually we hope to discharge her to long term if we can find a facility that will accept her Home meds PT OT if possible DVT prophylaxis She requests to be full code Long-term prognosis very guarded at best Comment Review of Relevant I have reviewed the following items chante (where applicable) has been applied. Labs Laboratory Tests Test 09/19/18 12:18 09/19/18 17:47 09/19/18 20:37 09/20/18 00:37 Glucose (Fingerstick) 249 mg/dL (70-99) 270 mg/dL (70-99) 154 mg/dL (70-99) 125 mg/dL (70-99) Test 09/20/18 05:45 09/20/18 07:58 09/20/18 11:38 09/20/18 16:55 Magnesium Level 1.9 mg/dL (1.8-2.4) Glucose (Fingerstick) 234 mg/dL (70-99) 196 mg/dL (70-99) 282 mg/dL (70-99) Test 09/20/18 20:47 09/21/18 07:30 Glucose (Fingerstick) 283 mg/dL (70-99) 291 mg/dL (70-99) Laboratory Tests Test 09/20/18 16:55 09/20/18 20:47 09/21/18 07:30 Glucose (Fingerstick) 282 mg/dL (70-99) 283 mg/dL (70-99) 291 mg/dL (70-99) Microbiology 09/16/18 Anaerobic/Aerobic Culture - Final, Complete 09/16/18 Anaerobic Culture Result 1 (JOSE) - Final, Complete 09/16/18 Aerobic Culture - Final, Complete 09/16/18 Aerobic Culture Result 1 (JOSE) - Final, Complete 09/16/18 Gram Stain - Final, Complete 09/16/18 Gram Stain Result 1 (JOSE) - Final, Complete 09/16/18 Gram Stain Result 2 (JOSE) - Final, Complete Medications Current Medications Fentanyl Citrate (Fentanyl 2ml Vial) 50 mcg 1X ONCE IV Last administered on 09/12/18 18:15; Start 09/12/18 at 17:45; Stop 09/12/18 at 17:46; Status DC Ondansetron HCl (Zofran) 4 mg PRN Q8HRS PRN IV NAUSEA/VOMITING; Start 09/12/18 at 19:00; Stop 09/13/18 at 07:50; Status DC Fentanyl Citrate (Fentanyl 2ml Vial) 50 mcg PRN Q1HR PRN IV PAIN Last administered on 09/12/18at 19:12; Start 09/12/18 at 19:00; Stop 09/13/18 at 18:59; Status DC Diphenhydramine HCl (Benadryl) 25 mg Q6HRS PO Last administered on 09/14/18at 06:26; Start 09/13/18 at 00:00; Stop 09/14/18 at 08:37; Status DC Lactulose (Lactulose) 20 gm TID PO Last administered on 09/21/18at 08:54; Start 09/12/18 at 21:00 Calcium Acetate (Phoslo) 667 mg TIDWMEALS PO Last administered on 09/21/18 08:54; Start 09/13/18 at 08:00 Cyclobenzaprine HCl (Flexeril) 5 mg TID PO Last administered on 09/14/18at 08:04; Start 09/12/18 at 21:15; Stop 09/14/18 at 08:37; Status DC Vitamin B Complex/ Vitamin C (Tasia-Meliton) 1 tab DAILY PO Last administered on 09/21/18at 08:54; Start 09/13/18 at 09:00 Levothyroxine Sodium (Synthroid) 300 mcg DAILY06 PO Last administered on 09/21/18at 06:35; Start 09/13/18 at 06:00 Midodrine (Proamatine) 5 mg [id number] PO ; Start 09/13/18 at 07:00; Stop 09/13/18 at 07:00; Status DC Pantoprazole Sodium (Protonix) 40 mg DAILYAC PO Last administered on 09/21/18at 07:38; Start 09/13/18 at 07:30 Sodium Chloride 750 ml @ 375 mls/hr 1X ONCE IV Last administered on 09/12/18at 21:53; Start 09/12/18 at 21:30; Stop 09/12/18 at 23:29; Status DC Midodrine (Proamatine) 5 mg [id number] PO Last administered on 09/12/18at 21:55; Start 09/12/18 at 22:00; Stop 09/13/18 at 07:54; Status DC Ondansetron HCl (Zofran) 4 mg PRN Q6HRS PRN IV NAUSEA/VOMITING; Start 09/13/18 at 08:00 Fentanyl Citrate (Fentanyl 2ml Vial) 25 mcg PRN Q2HR PRN IV PAIN; Start 09/13/18 at 08:00 Albuterol Sulfate (Ventolin Hfa) 2.5 puff QID IH ; Start 09/13/18 at 09:00; Status UNV Rifaximin (Xifaxan) 550 mg BID PO Last administered on 09/21/18at 08:55; Start 09/13/18 at 09:00 Albuterol Sulfate (Ventolin Neb Soln) 2.5 mg PRN Q6HRS PRN NEB SHORTNESS OF BREATH; Start 09/13/18 at 08:00 Midodrine (Proamatine) 10 mg [id number] PO Last administered on 09/17/18at 06:07; Start 09/13/18 at 08:00; Stop 09/17/18 at 09:51; Status DC Albuterol Sulfate (Ventolin Neb Soln) 2.5 mg RTQID NEB Last administered on 09/21/18at 07:41; Start 09/13/18 at 09:00 Budesonide (Pulmicort) 0.5 mg RTBID NEB Last administered on 09/21/18at 07:40; Start 09/13/18 at 20:00 Budesonide (Pulmicort) 0.5 mg 1X ONCE NEB Last administered on 09/13/18at 13:01; Start 09/13/18 at 08:45; Stop 09/13/18 at 08:46; Status DC Insulin Human Lispro (HumaLOG) 15 units 1X ONCE SQ Last administered on 09/13/18at 10:02; Start 09/13/18 at 09:30; Stop 09/13/18 at 09:31; Status DC Insulin Glargine (Lantus) 20 units QHS SQ Last administered on 09/20/18at 23:20; Start 09/13/18 at 21:00 Insulin Human Lispro (HumaLOG) 0-9 UNITS TIDWMEALS SQ Last administered on 09/21/18at 08:20; Start 09/13/18 at 12:00 Dextrose (Dextrose 50%-Water Syringe) 12.5 gm PRN Q15MIN PRN IV SEE COMMENTS; Start 09/13/18 at 09:15 Insulin Human Lispro (HumaLOG) 10 units TIDWMEALS SQ Last administered on 09/21/18at 08:20; Start 09/13/18 at 12:00 Sodium Chloride 1,000 ml @ 100 mls/hr Q10H IV Last administered on 09/15/18at 05:14; Start 09/13/18 at 12:15; Stop 09/15/18 at 09:43; Status DC Sodium Chloride 500 ml @ 500 mls/hr 1X ONCE IV Last administered on 09/13/18at 12:22; Start 09/13/18 at 12:15; Stop 09/13/18 at 13:14; Status DC Sodium Chloride 1,000 ml @ 1,000 mls/hr Q1H PRN IV hypotension; Start 09/13/18 at 13:20; Stop 09/13/18 at 19:19; Status DC Albumin Human 200 ml @ 200 mls/hr 1X PRN PRN IV Hypotension Last administered on 09/13/18at 13:45; Start 09/13/18 at 13:30; Stop 09/13/18 at 19:29; Status DC Sodium Chloride 1,000 ml @ 400 mls/hr Q2H30M PRN IV PATENCY; Start 09/13/18 at 13:20; Stop 09/14/18 at 01:19; Status DC Info (PHARMACY MONITORING -- do not chart) 1 each PRN DAILY PRN MC SEE COMMENTS; Start 09/13/18 at 13:30; Status UNV Info (PHARMACY MONITORING -- do not chart) 1 each PRN DAILY PRN MC SEE COMMENTS; Start 09/13/18 at 13:30; Stop 09/17/18 at 09:51; Status DC Sodium Chloride 1,000 ml @ 1,000 mls/hr Q1H PRN IV hypotension; Start 09/15/18 at 09:05; Stop 09/15/18 at 09:39; Status DC Sodium Chloride (Normal Saline Flush) 10 ml 1X PRN PRN IV AP catheter pack; Start 09/15/18 at 09:15; Stop 09/16/18 at 09:14; Status DC Sodium Chloride (Normal Saline Flush) 10 ml 1X PRN PRN IV NAIL EXPERT catheter pack; Start 09/15/18 at 09:15; Stop 09/16/18 at 09:14; Status DC Info (PHARMACY MONITORING -- do not chart) 1 each PRN DAILY PRN MC SEE COMMENTS; Start 09/15/18 at 09:15; Stop 09/15/18 at 09:15; Status DC Info (PHARMACY MONITORING -- do not chart) 1 each PRN DAILY PRN MC SEE COMMENTS; Start 09/15/18 at 09:15; Stop 09/15/18 at 09:15; Status DC Sodium Chloride 1,000 ml @ 100 mls/hr Q10H PRN IV HYPOTENSION ; Start 09/15/18 at 09:45 Magnesium Sulfate 50 ml @ 25 mls/hr PRN DAILY PRN IV for Mag < 1.7 on am labs Last administered on 09/16/18at 08:16; Start 09/15/18 at 10:00 Darbepoetin Santana (Aranesp) 60 mcg WEEKLYHS SQ Last administered on 09/15/18at 21:01; Start 09/15/18 at 21:00 Midodrine (Proamatine) 10 mg 3X/WEEK PO Last administered on 09/17/18at 14:10; Start 09/15/18 at 10:30; Stop 09/18/18 at 11:29; Status DC Potassium Chloride (Klor-Con) 40 meq 1X ONCE PO Last administered on 09/16/18at 09:10; Start 09/16/18 at 08:30; Stop 09/16/18 at 08:31; Status DC Magnesium Sulfate 50 ml @ 25 mls/hr 1X ONCE IV ; Start 09/16/18 at 11:00; Stop 09/16/18 at 12:59; Status Cancel Lidocaine/Sodium Bicarbonate (Buffered Lidocaine 1%) 3 ml STK-MED ONCE .ROUTE ; Start 09/16/18 at 10:54; Stop 09/16/18 at 10:55; Status DC Lidocaine/Sodium Bicarbonate (Buffered Lidocaine 1%) 6 ml 1X ONCE IJ Last administered on 09/16/18at 11:15; Start 09/16/18 at 11:15; Stop 09/16/18 at 11:16; Status DC Sodium Chloride 1,000 ml @ 1,000 mls/hr Q1H PRN IV hypotension; Start 09/17/18 at 07:08; Stop 09/17/18 at 13:07; Status DC Albumin Human 200 ml @ 200 mls/hr 1X PRN PRN IV Hypotension Last administered on 09/17/18at 10:09; Start 09/17/18 at 07:15; Stop 09/17/18 at 13:14; Status DC Midodrine (Proamatine) 5 mg 1X ONCE PO Last administered on 09/17/18at 08:03; Start 09/17/18 at 07:15; Stop 09/17/18 at 07:16; Status DC Sodium Chloride 1,000 ml @ 400 mls/hr Q2H30M PRN IV PATENCY; Start 09/17/18 at 07:08; Stop 09/17/18 at 19:07; Status DC Info (PHARMACY MONITORING -- do not chart) 1 each PRN DAILY PRN MC SEE COMMENTS; Start 09/17/18 at 07:15; Stop 09/17/18 at 07:15; Status DC Info (PHARMACY MONITORING -- do not chart) 1 each PRN DAILY PRN MC SEE COMMENTS; Start 09/17/18 at 07:15; Stop 09/19/18 at 20:51; Status DC Levofloxacin/ Dextrose (Levaquin Per Pharmacy) 1 each PRN DAILY PRN MC SEE COMMENTS; Start 09/17/18 at 09:30 Levofloxacin/ Dextrose 100 ml @ 100 mls/hr 1X ONCE IV Last administered on 09/17/18at 17:34; Start 09/17/18 at 10:00; Stop 09/17/18 at 10:59; Status DC Levofloxacin/ Dextrose 50 ml @ 50 mls/hr Q48H IV Last administered on 09/20/18at 00:22; Start 09/19/18 at 16:00 Lactobacillus Rhamnosus (Culturelle) 1 cap BID PO Last administered on 09/21/18at 08:54; Start 09/17/18 at 21:00 Lidocaine/Sodium Bicarbonate (Buffered Lidocaine 1%) 3 ml STK-MED ONCE .ROUTE ; Start 09/17/18 at 14:08; Stop 09/17/18 at 14:09; Status DC Albumin Human 200 ml @ As Directed STK-MED ONCE IV ; Start 09/17/18 at 14:49; Stop 09/17/18 at 14:50; Status DC Albumin Human 100 ml @ 100 mls/hr 1X ONCE IV Last administered on 09/17/18at 15:15; Start 09/17/18 at 15:00; Stop 09/17/18 at 15:59; Status DC Albumin Human 100 ml @ 100 mls/hr 1X ONCE IV Last administered on 09/17/18at 18:41; Start 09/17/18 at 15:00; Stop 09/17/18 at 15:59; Status DC Albumin Human 50 ml @ 50 mls/hr 1X ONCE IV Last administered on 09/17/18at 16:53; Start 09/17/18 at 16:00; Stop 09/17/18 at 16:59; Status DC Midodrine (Proamatine) 2.5 mg [id number] PO Last administered on 09/21/18at 07:39; Start 09/18/18 at 13:00 Magnesium Sulfate 50 ml @ 25 mls/hr 1X ONCE IV Last administered on 09/18/18at 20:23; Start 09/18/18 at 21:00; Stop 09/18/18 at 22:59; Status DC Sodium Chloride 1,000 ml @ 1,000 mls/hr Q1H PRN IV hypotension; Start 09/19/18 at 20:42; Stop 09/20/18 at 02:41; Status DC Sodium Chloride (Normal Saline Flush) 10 ml 1X PRN PRN IV AP catheter pack; Start 09/19/18 at 20:45; Stop 09/20/18 at 20:44; Status DC Sodium Chloride (Normal Saline Flush) 10 ml 1X PRN PRN IV NAIL EXPERT catheter pack; Start 09/19/18 at 20:45; Stop 09/20/18 at 20:44; Status DC Sodium Chloride 1,000 ml @ 400 mls/hr Q2H30M PRN IV PATENCY; Start 09/19/18 at 20:42; Stop 09/20/18 at 08:41; Status DC Info (PHARMACY MONITORING -- do not chart) 1 each PRN DAILY PRN MC SEE COMMENTS; Start 09/19/18 at 20:45; Stop 09/19/18 at 20:50; Status DC Info (PHARMACY MONITORING -- do not chart) 1 each PRN DAILY PRN MC SEE COMMENTS; Start 09/19/18 at 20:45 Active Scripts Active Midodrine Hcl 5 Mg Tablet 10 Mg PO [id number] 14 Days Reported Benadryl (Diphenhydramine Hcl) 25 Mg Capsule 25 Mg PO Q6HRS Calcium Acetate 667 Mg Tablet 667 Mg PO TIDWMEALS Dialyvite Tablet (Folic Acid/Vitamin B Comp W-C) 1 Each Tablet 1 Each PO DAILY Midodrine Hcl 5 Mg Tablet 5 Mg PO TID Cyclobenzaprine Hcl 5 Mg Tablet 1 Tab PO TID Omeprazole 40 Mg Capsule.dr 1 Cap PO DAILY Xifaxan (Rifaximin) 550 Mg Tablet 1 Tab PO BID Fusion Plus Capsule (Iron,Fum&Ps/Fa/Vit B&C#18/L.ca) 1 Each Capsule 1 Each PO Albuterol Sulfate Conc Neb Soln (Albuterol Sulfate) 2.5 Mg/0.5 Ml Vial.neb 2.5 Mg NEB Q6HRS PRN Lactulose 20 Gm/30 Ml Solution 20 Gm PO TID Lantus Solostar (Insulin Glargine,Hum.rec.anlog) 100 Unit/1 Ml Insuln.pen 0 SQ HS SSI Calcium + Vitamin D Tablet (Calcium Carbonate/Vitamin D3) 1 Each Tablet 1 Each PO Albuterol Sulfate Hfa Inhaler (Albuterol Sulfate) 8.5 Gm Hfa.aer.ad 8.5 Gm IH Novolog Flexpen (Insulin Aspart) 100 Unit/1 Ml Insuln.pen 0 SQ TIDAC ssi Synthroid (Levothyroxine Sodium) 25 Mcg Tablet 300 Mcg PO DAILY Flovent 110MCG Hfa (Fluticasone Propionate) 12 Gm Aer.w.adap 12 Gm IH Vitals/I & O Vital Sign - Last 24 Hours 09/20/18 09/20/18 09/20/18 09/20/18 15:00 15:13 18:00 19:00 Temp 99.1 98.4 99.1 98.4 Pulse 110 118 118 109 Resp 18 16 B/P (MAP) 99/43 (61) 92/27 92/27 96/48 (64) Pulse Ox 91 92 O2 Delivery Room Air Room Air 09/20/18 09/20/18 09/20/18 09/20/18 20:14 20:30 21:17 22:40 Temp 98.5 98.5 Pulse 107 Resp 18 B/P (MAP) 96/54 (68) Pulse Ox 99 99 92 O2 Delivery Room Air Nasal Cannula Room Air Room Air O2 Flow Rate 2.0 09/21/18 09/21/18 09/21/18 03:00 07:20 07:39 Temp 98.2 97.8 98.2 97.8 Pulse 105 104 104 Resp 17 20 B/P (MAP) 110/56 (74) 95/48 (64) 95/48 Pulse Ox 93 90 O2 Delivery Room Air Room Air Intake and Output 09/20/18 09/20/18 09/21/18 15:00 23:00 07:00 Intake Total 120 ml Balance 120 ml SULTANA HERNANDES III DO Sep 21, 2018 11:50
--- NOTE | 2018-09-21 13:10 | PDOC ---
PULMONARY PROGRESS NOTES Subjective PT NOT SOA feels better Vitals Vital Signs Date Time Temp Pulse Resp B/P (MAP) Pulse Ox O2 Delivery O2 Flow Rate FiO2 09/21/18 13:01 115 90/41 09/21/18 11:30 98.0 18 95 Room Air 98.0 09/20/18 20:30 2.0 ROS: No Nausea, No Chest Pain, No Abdominal Pain, No Increase Cough General: Alert HEENT: Other (nc at perrl nose throat clear) Lungs: Other (decrease bs) Cardiovascular: S1, S2 Abdomen: Soft, Non-tender, Other Neuro Exam: Alert Extremities: Other (1+edema) Skin: Warm Labs Laboratory Tests Test 09/19/18 17:47 09/19/18 20:37 09/20/18 00:37 09/20/18 05:45 Glucose (Fingerstick) 270 mg/dL (70-99) 154 mg/dL (70-99) 125 mg/dL (70-99) Magnesium Level 1.9 mg/dL (1.8-2.4) Test 09/20/18 07:58 09/20/18 11:38 09/20/18 16:55 09/20/18 20:47 Glucose (Fingerstick) 234 mg/dL (70-99) 196 mg/dL (70-99) 282 mg/dL (70-99) 283 mg/dL (70-99) Test 09/21/18 07:30 09/21/18 11:54 Glucose (Fingerstick) 291 mg/dL (70-99) 222 mg/dL (70-99) Laboratory Tests Test 09/20/18 16:55 09/20/18 20:47 09/21/18 07:30 09/21/18 11:54 Glucose (Fingerstick) 282 mg/dL (70-99) 283 mg/dL (70-99) 291 mg/dL (70-99) 222 mg/dL (70-99) Medications Active Scripts Medications Dose Route/Sig Max Daily Dose Days Date Category Dose Instructions Midodrine Hcl 5 Mg Tablet 10 Mg PO [id number] 09/10/18 Rx Benadryl (Diphenhydramine Hcl) 25 Mg Capsule 25 Mg PO Q6HRS 08/12/18 Reported Calcium Acetate 667 Mg Tablet 667 Mg PO TIDWMEALS 07/03/18 Reported Dialyvite Tablet (Folic Acid/Vitamin B Comp W-C) 1 Each Tablet 1 Each PO DAILY 07/03/18 Reported Midodrine Hcl 5 Mg Tablet 5 Mg PO TID 06/25/18 Reported Cyclobenzaprine Hcl 5 Mg Tablet 1 Tab PO TID 06/10/18 Reported Omeprazole 40 Mg Capsule. 1 Cap PO DAILY 05/01/18 Reported Xifaxan (Rifaximin) 550 Mg Tablet 1 Tab PO BID 02/07/18 Reported Fusion Plus Capsule (Iron,Fum&Ps/Fa/Vit B&C#18/L.ca) 1 Each Capsule 1 Each PO 05/09/17 Reported Albuterol Sulfate Conc Neb Soln (Albuterol Sulfate) 2.5 Mg/0.5 Ml Vial.neb 2.5 Mg NEB Q6HRS PRN 08/03/15 Reported Lactulose 20 Gm/30 Ml Solution 20 Gm PO TID 08/03/15 Reported Lantus Solostar (Insulin Glargine,Hum.rec.anlog) 100 Unit/1 Ml Insuln.pen 0 SQ HS 06/10/13 Reported SSI Calcium + Vitamin D Tablet (Calcium Carbonate/Vitamin D3) 1 Each Tablet 1 Each PO 06/02/13 Reported Albuterol Sulfate Hfa Inhaler (Albuterol Sulfate) 8.5 Gm Hfa.aer.ad 8.5 Gm IH 06/02/13 Reported Novolog Flexpen (Insulin Aspart) 100 Unit/1 Ml Insuln.pen 0 SQ TIDAC 06/02/13 Reported ssi Synthroid (Levothyroxine Sodium) 25 Mcg Tablet 300 Mcg PO DAILY 06/02/13 Reported Flovent 110MCG Hfa (Fluticasone Propionate) 12 Gm Aer.w.adap 12 Gm IH 06/02/13 Reported Comments CXR 09/16 improved aeration left lung Impression . IMPRESSION: 1. Dyspnea, multifactorial in etiology including a left pleural effusion, volume overload, s/p left thoracentesis, no hemothorax, 2. Abnormal chest x-ray with left pleural effusion, I suspect this is secondary to her end-stage liver disease and / possible traumatic. Other differential diagnosis including inflammatory, infectious and malignancy 3. Chronic obstructive pulmonary disease. 4. End-stage renal disease on hemodialysis. 5. End-stage liver disease, cirrhosis../ DIAZ/NAFLD 6. Leukocytosis. 7. Anemia. 8. Thrombocytopenia. 9. Ex-smoker. Plan . THORACENTESIS DONE ANALYSIS REVIEWED/ TRANSUDATE/ RELATED TO CIRRHOSIS/ CULTURES NEG PT NOT SOA AT REST MONITOR RESP STATUS FOLLOW RENAL GI REC ABX LEVLIANET OK WITH [facility] CRISTIAN AGUIRRE MD Sep 21, 2018 13:10
[2018-09-21 15:15] VITALS: BP 125/65
[2018-09-21] MEDS ORDERED: HEPARIN PF 500 UNIT/5 ML DISP.SYRIN. IV ONE (16:15)
--- NOTE | 2018-09-21 16:55 | NUR ---
No blood return from right chest port. Flushes without difficulty but unable to get blood return even after removing riley needle and reaccessed with #20 riley needle without difficulty, again flushes without difficulty but no blood return. Dr. Lord notified. To leave chest port access as heparinized, but change levaquin to oral and he will assess 09/22. Patient verb. understanding POC.
[2018-09-21 19:00] VITALS: BP 94/32
[2018-09-21] MEDS: INSULIN GLARGINE 300 UNITS/3 ML INSULN.PEN. SQ SCH (22:07)
[2018-09-21 23:00] VITALS: BP 89/29
[2018-09-22 03:00] VITALS: BP 99/33
--- NOTE | 2018-09-22 06:06 | NUR ---
Attempted to draw blood from R port-a-cath, no blood return. Line flushes with no difficulty. Lab notified, pt refused to have blood drawn.
[2018-09-22] MEDS: LEVOTHYROXINE 150 MCG TABLET PO SCH (06:16)
[2018-09-22] MEDS: MIDODRINE 2.5 MG TABLET PO SCH ×3 (06:16→20:50)
[2018-09-22] MEDS: PANTOPRAZOLE 40 MG TABLET.DR. PO SCH (06:17)
[2018-09-22 07:00] VITALS: BP 114/58
[2018-09-22] MEDS: ALBUTEROL SULFATE 2.5 MG/3 ML NEBU. NEB SCH ×4 (07:30→19:59)
[2018-09-22] MEDS: BUDESONIDE 0.5 MG/2 ML NEBU. NEB SCH ×2 (07:30→19:59)
[2018-09-22] MEDS: CALCIUM ACETATE 667 MG CAPSULE PO SCH ×3 (08:43→17:00)
[2018-09-22] MEDS: rifAXIMin 550 MG TABLET PO SCH ×2 (08:43→20:50)
[2018-09-22] MEDS: FOLIC/VIT B COMP W-C (RENAL) TABLET. PO SCH (08:43)
[2018-09-22] MEDS: LACTOBACILLUS RHAMNOSUS GG 1 CAPSULE. PO SCH ×2 (08:43→20:50)
[2018-09-22] MEDS: LACTULOSE 20 GM/30 ML SOLUTION. PO SCH ×4 (08:44→21:00)
[2018-09-22] MEDS: INSULIN LISPRO 300 UNITS/3 ML INSULN.PEN. SQ SCH ×6 (08:59→17:00)
--- NOTE | 2018-09-22 09:29 | PDOC ---
PULMONARY PROGRESS NOTES Subjective PT NOT SOA Vitals Vital Signs Date Time Temp Pulse Resp B/P (MAP) Pulse Ox O2 Delivery O2 Flow Rate FiO2 09/22/18 07:32 Room Air 09/22/18 07:00 98.1 102 19 114/58 (76) 98 2.0 98.1 ROS: No Nausea, No Chest Pain, No Abdominal Pain, No Increase Cough General: Alert HEENT: Other (nc at perrl nose throat clear) Lungs: Other (decrease bs) Cardiovascular: S1, S2 Abdomen: Soft, Non-tender, Other Neuro Exam: Alert Extremities: Other (1+edema) Skin: Warm Labs Laboratory Tests Test 09/20/18 11:38 09/20/18 16:55 09/20/18 20:47 09/21/18 07:30 Glucose (Fingerstick) 196 mg/dL (70-99) 282 mg/dL (70-99) 283 mg/dL (70-99) 291 mg/dL (70-99) Test 09/21/18 11:54 09/21/18 17:08 09/21/18 20:14 09/22/18 07:38 Glucose (Fingerstick) 222 mg/dL (70-99) 150 mg/dL (70-99) 204 mg/dL (70-99) 263 mg/dL (70-99) Laboratory Tests Test 09/21/18 11:54 09/21/18 17:08 09/21/18 20:14 09/22/18 07:38 Glucose (Fingerstick) 222 mg/dL (70-99) 150 mg/dL (70-99) 204 mg/dL (70-99) 263 mg/dL (70-99) Medications Active Scripts Medications Dose Route/Sig Max Daily Dose Days Date Category Dose Instructions Midodrine Hcl 5 Mg Tablet 10 Mg PO [id number] 09/10/18 Rx Benadryl (Diphenhydramine Hcl) 25 Mg Capsule 25 Mg PO Q6HRS 08/12/18 Reported Calcium Acetate 667 Mg Tablet 667 Mg PO TIDWMEALS 07/03/18 Reported Dialyvite Tablet (Folic Acid/Vitamin B Comp W-C) 1 Each Tablet 1 Each PO DAILY 07/03/18 Reported Midodrine Hcl 5 Mg Tablet 5 Mg PO TID 06/25/18 Reported Cyclobenzaprine Hcl 5 Mg Tablet 1 Tab PO TID 06/10/18 Reported Omeprazole 40 Mg Capsule.dr 1 Cap PO DAILY 05/01/18 Reported Xifaxan (Rifaximin) 550 Mg Tablet 1 Tab PO BID 02/07/18 Reported Fusion Plus Capsule (Iron,Fum&Ps/Fa/Vit B&C#18/L.ca) 1 Each Capsule 1 Each PO 05/09/17 Reported Albuterol Sulfate Conc Neb Soln (Albuterol Sulfate) 2.5 Mg/0.5 Ml Vial.neb 2.5 Mg NEB Q6HRS PRN 08/03/15 Reported Lactulose 20 Gm/30 Ml Solution 20 Gm PO TID 08/03/15 Reported Lantus Solostar (Insulin Glargine,Hum.rec.anlog) 100 Unit/1 Ml Insuln.pen 0 SQ HS 06/10/13 Reported SSI Calcium + Vitamin D Tablet (Calcium Carbonate/Vitamin D3) 1 Each Tablet 1 Each PO 06/02/13 Reported Albuterol Sulfate Hfa Inhaler (Albuterol Sulfate) 8.5 Gm Hfa.aer.ad 8.5 Gm IH 06/02/13 Reported Novolog Flexpen (Insulin Aspart) 100 Unit/1 Ml Insuln.pen 0 SQ TIDAC 06/02/13 Reported ssi Synthroid (Levothyroxine Sodium) 25 Mcg Tablet 300 Mcg PO DAILY 06/02/13 Reported Flovent 110MCG Hfa (Fluticasone Propionate) 12 Gm Aer.w.adap 12 Gm IH 06/02/13 Reported Comments CXR 09/16 improved aeration left lung Impression . IMPRESSION: 1. Dyspnea, multifactorial in etiology including a left pleural effusion, volume overload, s/p left thoracentesis, no hemothorax, 2. Abnormal chest x-ray with left pleural effusion, I suspect this is secondary to her end-stage liver disease and / possible traumatic. Other differential diagnosis including inflammatory, infectious and malignancy 3. Chronic obstructive pulmonary disease. 4. End-stage renal disease on hemodialysis. 5. End-stage liver disease, cirrhosis../ DIAZ/NAFLD 6. Leukocytosis. 7. Anemia. 8. Thrombocytopenia. 9. Ex-smoker. Plan . OK TO D/C FOLLOW UP NEEDED CALL OFFICE ANALYSIS REVIEWED/ TRANSUDATE/ RELATED TO CIRRHOSIS/ CULTURES RIVERA DUNNE MD Sep 22, 2018 09:29
--- NOTE | 2018-09-22 10:22 | SNU/HH DC ---
DISCHARGE WITH HOME HEALTH DISCHARGE INFORMATION: Final Diagnosis: Problems Medical Problems: (1) Fall Status: Acute (2) Left knee pain Status: Acute Condition on Discharge: Stable CODE STATUS: Code Status: Full HOME HEALTH: Face to Face: I certify this patient is under my care and that I, or a nurse practitioner or physician's assistant professor of drama working with me, had a face to face encounter that meets the physician face to face encounter requirements with this patient on []. Medical Complications: Other (DIAZ syndrome with end-stage liver disease) RN For Eval/Treatment: Yes Physical Therapy For: Evalulation/Treatment Occupational Therapy For: Evaluation/Treatment Home Health Aide For: Self-care FLAT BED KNITTER For: Community Resources Pt Meets Homebound Status: Poor coordination w/ amb. POST DISCHARGE ORDERS: Activity Instructions for Disc: Bedrest today Bathing Instructions: Shower-keep dressing dry, No Tub Bath until see DIET AFTER DISCHARGE: hepatic/renal Wound/Incision Care: Keep wound/cast CDI CHECKS AFTER DISCHARGE: Checks after discharge: Check blood press - daily, Check blood sugar, ac/hs TREATMENT/EQUIPMENT ORDERS: Adaptive Equipment Issued: Brace/splint CERTIFICATION STATEMENT: Certification Statement: Certification Statement: Based on the above finding, I certify that this patient is confined to the home and needs intermittent chcf care, physical therapy and/or speech therapy, or continues to need occupational therapy.~ This patient is under my care, and I have initiated the establishment of the plan of care.~ This patient will be followed by myself or a community physician who will periodically review the plan of care. Home Meds Active Scripts Midodrine Hcl (MIDODRINE HCL) 5 Mg Tablet, 10 MG PO [id number] for hypotension for 14 Days, #84 TAB Prov:TEDDY PERALES MD 09/10/18 Reported Medications Diphenhydramine Hcl (BENADRYL) 25 Mg Capsule, 25 MG PO Q6HRS for itching, CAP 08/12/18 Calcium Acetate (CALCIUM ACETATE) 667 Mg Tablet, 667 MG PO TIDWMEALS for DIALYSIS PATIENTS, CAP 07/03/18 Folic Acid/Vitamin B Comp W-C (DIALYVITE TABLET) 1 Each Tablet, 1 EACH PO DAILY for after dialysis on dialysis day, TAB 07/03/18 Midodrine Hcl (MIDODRINE HCL) 5 Mg Tablet, 5 MG PO TID for bp, TAB 06/25/18 Cyclobenzaprine Hcl (CYCLOBENZAPRINE HCL) 5 Mg Tablet, 1 TAB PO TID for muscle spasms, #30 TAB 06/10/18 Omeprazole (OMEPRAZOLE) 40 Mg Capsule.dr, 1 CAP PO DAILY for gerd, #30 CAP 3 Refills 05/01/18 Rifaximin (XIFAXAN) 550 Mg Tablet, 1 TAB PO BID, #28 TAB 02/07/18 Iron,Fum&Ps/Fa/Vit B&C#18/L.ca (FUSION PLUS CAPSULE) 1 Each Capsule, 1 EACH PO, CAP 05/09/17 Albuterol Sulfate (ALBUTEROL SULFATE CONC NEB SOLN) 2.5 Mg/0.5 Ml Vial.neb, 2.5 MG NEB Q6HRS PRN for SHORTNESS OF BREATH, EACH 0 Refills 08/03/15 Lactulose (LACTULOSE) 20 Gm/30 Ml Solution, 20 GM PO TID 08/03/15 Insulin Glargine,Hum.rec.anlog (LANTUS SOLOSTAR) 100 Unit/1 Ml Insuln.pen, 0 SQ HS for DM SSI 06/10/13 Calcium Carbonate/Vitamin D3 (CALCIUM + VITAMIN D TABLET) 1 Each Tablet, 1 EACH PO 06/02/13 Albuterol Sulfate (ALBUTEROL SULFATE HFA INHALER) 8.5 Gm Hfa.aer.ad, 8.5 GM IH 06/02/13 Insulin Aspart (NOVOLOG FLEXPEN) 100 Unit/1 Ml Insuln.pen, 0 SQ TIDAC for DM ssi 06/02/13 Levothyroxine Sodium (SYNTHROID) 25 Mcg Tablet, 300 MCG PO DAILY 06/02/13 Fluticasone Propionate (FLOVENT 110MCG HFA) 12 Gm Aer.w.adap, 12 GM IH 06/02/13 SULTANA HERNANDES III DO Sep 22, 2018 10:22
--- NOTE | 2018-09-22 10:25 | PDOC ---
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 Status post drainage of 9.6 L of ascites fluid yesterday Recent drainage of 1.5 L of pleuritic fluid a few days ago hypotension on midodrine Failure to thrive, generalized weakness-lives with a son but does not want any rehabilitation or SNU Moderate to large pleural effusion - IR thoracentesis ESRD on dialysis-, noncompliance, last dialysis during last hospitalization Anemia of ESRD History of recurrent ascites and recurrent paracentesis-she claims paracentesis every weekly Diabetes type 2, HON K with no coma-uncontrolled- Sinus tachycardia Thrombocytopenia, platelets is 139 with no bleeding History GERD-PPI Encephalopathy-chronic stable ASCITES s/p left sided thoracentesis 1.5 09/16 History of Present Illness History of Present Illness Patient seen and examined She is probably at her baseline Discussed with case management we hope to send her retirement but can't get her excepted. The new plan is to send her home with home health Discussed with RN Vitals Vitals Vital Signs Date Time Temp Pulse Resp B/P (MAP) Pulse Ox O2 Delivery O2 Flow Rate FiO2 09/22/18 07:32 Room Air 09/22/18 07:00 98.1 102 19 114/58 (76) 98 2.0 98.1 Physical Exam General: Alert, Other (resting with mild snoring) Heart: Regular rate, Normal S1, No murmurs Lungs: Clear Abdomen: Other (distended with ascites but this is her baseline) Extremities: No clubbing, No cyanosis, No edema Skin: No rashes, No breakdown, No significant lesion Labs Labs: Laboratory Tests Test 09/21/18 11:54 09/21/18 17:08 09/21/18 20:14 09/22/18 07:38 Glucose (Fingerstick) 222 mg/dL (70-99) 150 mg/dL (70-99) 204 mg/dL (70-99) 263 mg/dL (70-99) Review of Systems Review of Systems Complains of weakness but request discharge Assessment and Plan Assessmemt and Plan Problems Medical Problems: (1) Fall Status: Acute (2) Left knee pain Status: Acute Severe Boyle syndrome Severe ascites Status post drainage of 9.6 L of ascites fluid yesterday Recent drainage of 1.5 L of pleuritic fluid a few days ago hypotension on midodrine Failure to thrive, generalized weakness-lives with a son but does not want any rehabilitation or SNU Moderate to large pleural effusion - IR thoracentesis ESRD on dialysis-, noncompliance, last dialysis during last hospitalization Anemia of ESRD History of recurrent ascites and recurrent paracentesis-she claims paracentesis every weekly Diabetes type 2, HON K with no coma-uncontrolled- Sinus tachycardia Thrombocytopenia, platelets is 139 with no bleeding History GERD-PPI Encephalopathy-chronic stable ASCITES s/p left sided thoracentesis 1.5 09/16 Plan Discharged home with home health as we cannot get her accepted at a retirement facility and she does not want to go to long-term care Discharge orders were put in Suspect she may need hospice eventually Comment Review of Relevant I have reviewed the following items chante (where applicable) has been applied. Labs Laboratory Tests Test 09/20/18 11:38 09/20/18 16:55 09/20/18 20:47 09/21/18 07:30 Glucose (Fingerstick) 196 mg/dL (70-99) 282 mg/dL (70-99) 283 mg/dL (70-99) 291 mg/dL (70-99) Test 09/21/18 11:54 09/21/18 17:08 09/21/18 20:14 09/22/18 07:38 Glucose (Fingerstick) 222 mg/dL (70-99) 150 mg/dL (70-99) 204 mg/dL (70-99) 263 mg/dL (70-99) Laboratory Tests Test 09/21/18 11:54 09/21/18 17:08 09/21/18 20:14 09/22/18 07:38 Glucose (Fingerstick) 222 mg/dL (70-99) 150 mg/dL (70-99) 204 mg/dL (70-99) 263 mg/dL (70-99) Microbiology 09/16/18 Anaerobic/Aerobic Culture - Final, Complete 09/16/18 Anaerobic Culture Result 1 (JOSE) - Final, Complete 09/16/18 Aerobic Culture - Final, Complete 09/16/18 Aerobic Culture Result 1 (JOSE) - Final, Complete 09/16/18 Gram Stain - Final, Complete 09/16/18 Gram Stain Result 1 (JOSE) - Final, Complete 09/16/18 Gram Stain Result 2 (JOSE) - Final, Complete Medications Current Medications Fentanyl Citrate (Fentanyl 2ml Vial) 50 mcg 1X ONCE IV Last administered on 09/12/18at 18:15; Start 09/12/18 at 17:45; Stop 09/12/18 at 17:46; Status DC Ondansetron HCl (Zofran) 4 mg PRN Q8HRS PRN IV NAUSEA/VOMITING; Start 09/12/18 at 19:00; Stop 09/13/18 at 07:50; Status DC Fentanyl Citrate (Fentanyl 2ml Vial) 50 mcg PRN Q1HR PRN IV PAIN Last administered on 09/12/18at 19:12; Start 09/12/18 at 19:00; Stop 09/13/18 at 18:59; Status DC Diphenhydramine HCl (Benadryl) 25 mg Q6HRS PO Last administered on 09/14/18at 06:26; Start 09/13/18 at 00:00; Stop 09/14/18 at 08:37; Status DC Lactulose (Lactulose) 20 gm TID PO Last administered on 09/22/18at 08:44; Start 09/12/18 at 21:00 Calcium Acetate (Phoslo) 667 mg TIDWMEALS PO Last administered on 09/22/18at 08:43; Start 09/13/18 at 08:00 Cyclobenzaprine HCl (Flexeril) 5 mg TID PO Last administered on 09/14/18at 08:04; Start 09/12/18 at 21:15; Stop 09/14/18 at 08:37; Status DC Vitamin B Complex/ Vitamin C (Tasia-Meliton) 1 tab DAILY PO Last administered on 09/22/18at 08:43; Start 09/13/18 at 09:00 Levothyroxine Sodium (Synthroid) 300 mcg DAILY06 PO Last administered on 09/22/18at 06:16; Start 09/13/18 at 06:00 Midodrine (Proamatine) 5 mg [id number] PO ; Start 09/13/18 at 07:00; Stop 09/13/18 at 07:00; Status DC Pantoprazole Sodium (Protonix) 40 mg DAILYAC PO Last administered on 09/22/18at 06:17; Start 09/13/18 at 07:30 Sodium Chloride 750 ml @ 375 mls/hr 1X ONCE IV Last administered on 09/12/18at 21:53; Start 09/12/18 at 21:30; Stop 09/12/18 at 23:29; Status DC Midodrine (Proamatine) 5 mg [id number] PO Last administered on 09/12/18at 21:55; Start 09/12/18 at 22:00; Stop 09/13/18 at 07:54; Status DC Ondansetron HCl (Zofran) 4 mg PRN Q6HRS PRN IV NAUSEA/VOMITING; Start 09/13/18 at 08:00 Fentanyl Citrate (Fentanyl 2ml Vial) 25 mcg PRN Q2HR PRN IV PAIN; Start 09/13/18 at 08:00 Albuterol Sulfate (Ventolin Hfa) 2.5 puff QID IH ; Start 09/13/18 at 09:00; Status UNV Rifaximin (Xifaxan) 550 mg BID PO Last administered on 09/22/18at 08:43; Start 09/13/18 at 09:00 Albuterol Sulfate (Ventolin Neb Soln) 2.5 mg PRN Q6HRS PRN NEB SHORTNESS OF BREATH; Start 09/13/18 at 08:00 Midodrine (Proamatine) 10 mg [id number] PO Last administered on 09/17/18at 06:07; Start 09/13/18 at 08:00; Stop 09/17/18 at 09:51; Status DC Albuterol Sulfate (Ventolin Neb Soln) 2.5 mg RTQID NEB Last administered on 09/22/18 07:30; Start 09/13/18 at 09:00 Budesonide (Pulmicort) 0.5 mg RTBID NEB Last administered on 09/22/18at 07:30; Start 09/13/18 at 20:00 Budesonide (Pulmicort) 0.5 mg 1X ONCE NEB Last administered on 09/13/18at 13:01; Start 09/13/18 at 08:45; Stop 09/13/18 at 08:46; Status DC Insulin Human Lispro (HumaLOG) 15 units 1X ONCE SQ Last administered on 09/13/18at 10:02; Start 09/13/18 at 09:30; Stop 09/13/18 at 09:31; Status DC Insulin Glargine (Lantus) 20 units QHS SQ Last administered on 09/21/18at 22:07; Start 09/13/18 at 21:00 Insulin Human Lispro (HumaLOG) 0-9 UNITS TIDWMEALS SQ Last administered on 09/22/18at 08:59; Start 09/13/18 at 12:00 Dextrose (Dextrose 50%-Water Syringe) 12.5 gm PRN Q15MIN PRN IV SEE COMMENTS; Start 09/13/18 at 09:15 Insulin Human Lispro (HumaLOG) 10 units TIDWMEALS SQ Last administered on 09/22/18at 08:59; Start 09/13/18 at 12:00 Sodium Chloride 1,000 ml @ 100 mls/hr Q10H IV Last administered on 09/15/18at 05:14; Start 09/13/18 at 12:15; Stop 09/15/18 at 09:43; Status DC Sodium Chloride 500 ml @ 500 mls/hr 1X ONCE IV Last administered on 09/13/18at 12:22; Start 09/13/18 at 12:15; Stop 09/13/18 at 13:14; Status DC Sodium Chloride 1,000 ml @ 1,000 mls/hr Q1H PRN IV hypotension; Start 09/13/18 at 13:20; Stop 09/13/18 at 19:19; Status DC Albumin Human 200 ml @ 200 mls/hr 1X PRN PRN IV Hypotension Last administered on 09/13/18at 13:45; Start 09/13/18 at 13:30; Stop 09/13/18 at 19:29; Status DC Sodium Chloride 1,000 ml @ 400 mls/hr Q2H30M PRN IV PATENCY; Start 09/13/18 at 13:20; Stop 09/14/18 at 01:19; Status DC Info (PHARMACY MONITORING -- do not chart) 1 each PRN DAILY PRN MC SEE COMMENTS; Start 09/13/18 at 13:30; Status UNV Info (PHARMACY MONITORING -- do not chart) 1 each PRN DAILY PRN MC SEE COMMENTS; Start 09/13/18 at 13:30; Stop 09/17/18 at 09:51; Status DC Sodium Chloride 1,000 ml @ 1,000 mls/hr Q1H PRN IV hypotension; Start 09/15/18 at 09:05; Stop 09/15/18 at 09:39; Status DC Sodium Chloride (Normal Saline Flush) 10 ml 1X PRN PRN IV AP catheter pack; Start 09/15/18 at 09:15; Stop 09/16/18 at 09:14; Status DC Sodium Chloride (Normal Saline Flush) 10 ml 1X PRN PRN IV UX INTERACTION DESIGNER catheter pack; Start 09/15/18 at 09:15; Stop 09/16/18 at 09:14; Status DC Info (PHARMACY MONITORING -- do not chart) 1 each PRN DAILY PRN MC SEE COMMENTS; Start 09/15/18 at 09:15; Stop 09/15/18 at 09:15; Status DC Info (PHARMACY MONITORING -- do not chart) 1 each PRN DAILY PRN MC SEE COMMENTS; Start 09/15/18 at 09:15; Stop 09/15/18 at 09:15; Status DC Sodium Chloride 1,000 ml @ 100 mls/hr Q10H PRN IV HYPOTENSION ; Start 09/15/18 at 09:45 Magnesium Sulfate 50 ml @ 25 mls/hr PRN DAILY PRN IV for Mag < 1.7 on am labs Last administered on 09/16/18at 08:16; Start 09/15/18 at 10:00 Darbepoetin Santana (Aranesp) 60 mcg WEEKLYHS SQ Last administered on 09/15/18at 21:01; Start 09/15/18 at 21:00 Midodrine (Proamatine) 10 mg 3X/WEEK PO Last administered on 09/17/18at 14:10; Start 09/15/18 at 10:30; Stop 09/18/18 at 11:29; Status DC Potassium Chloride (Klor-Con) 40 meq 1X ONCE PO Last administered on 09/16/18at 09:10; Start 09/16/18 at 08:30; Stop 09/16/18 at 08:31; Status DC Magnesium Sulfate 50 ml @ 25 mls/hr 1X ONCE IV ; Start 09/16/18 at 11:00; Stop 09/16/18 at 12:59; Status Cancel Lidocaine/Sodium Bicarbonate (Buffered Lidocaine 1%) 3 ml STK-MED ONCE .ROUTE ; Start 09/16/18 at 10:54; Stop 09/16/18 at 10:55; Status DC Lidocaine/Sodium Bicarbonate (Buffered Lidocaine 1%) 6 ml 1X ONCE IJ Last administered on 09/16/18at 11:15; Start 09/16/18 at 11:15; Stop 09/16/18 at 11:16; Status DC Sodium Chloride 1,000 ml @ 1,000 mls/hr Q1H PRN IV hypotension; Start 09/17/18 at 07:08; Stop 09/17/18 at 13:07; Status DC Albumin Human 200 ml @ 200 mls/hr 1X PRN PRN IV Hypotension Last administered on 09/17/18at 10:09; Start 09/17/18 at 07:15; Stop 09/17/18 at 13:14; Status DC Midodrine (Proamatine) 5 mg 1X ONCE PO Last administered on 09/17/18at 08:03; Start 09/17/18 at 07:15; Stop 09/17/18 at 07:16; Status DC Sodium Chloride 1,000 ml @ 400 mls/hr Q2H30M PRN IV PATENCY; Start 09/17/18 at 07:08; Stop 09/17/18 at 19:07; Status DC Info (PHARMACY MONITORING -- do not chart) 1 each PRN DAILY PRN MC SEE COMMENTS; Start 09/17/18 at 07:15; Stop 09/17/18 at 07:15; Status DC Info (PHARMACY MONITORING -- do not chart) 1 each PRN DAILY PRN MC SEE COMMENTS; Start 09/17/18 at 07:15; Stop 09/19/18 at 20:51; Status DC Levofloxacin/ Dextrose (Levaquin Per Pharmacy) 1 each PRN DAILY PRN MC SEE COMMENTS; Start 09/17/18 at 09:30; Stop 09/21/18 at 16:55; Status DC Levofloxacin/ Dextrose 100 ml @ 100 mls/hr 1X ONCE IV Last administered on 09/17/18at 17:34; Start 09/17/18 at 10:00; Stop 09/17/18 at 10:59; Status DC Levofloxacin/ Dextrose 50 ml @ 50 mls/hr Q48H IV Last administered on 09/20/18at 00:22; Start 09/19/18 at 16:00; Stop 09/21/18 at 16:55; Status DC Lactobacillus Rhamnosus (Culturelle) 1 cap BID PO Last administered on 09/22/18at 08:43; Start 09/17/18 at 21:00 Lidocaine/Sodium Bicarbonate (Buffered Lidocaine 1%) 3 ml STK-MED ONCE .ROUTE ; Start 09/17/18 at 14:08; Stop 09/17/18 at 14:09; Status DC Albumin Human 200 ml @ As Directed STK-MED ONCE IV ; Start 09/17/18 at 14:49; Stop 09/17/18 at 14:50; Status DC Albumin Human 100 ml @ 100 mls/hr 1X ONCE IV Last administered on 09/17/18at 15:15; Start 09/17/18 at 15:00; Stop 09/17/18 at 15:59; Status DC Albumin Human 100 ml @ 100 mls/hr 1X ONCE IV Last administered on 09/17/18at 18:41; Start 09/17/18 at 15:00; Stop 09/17/18 at 15:59; Status DC Albumin Human 50 ml @ 50 mls/hr 1X ONCE IV Last administered on 09/17/18at 16:53; Start 09/17/18 at 16:00; Stop 09/17/18 at 16:59; Status DC Midodrine (Proamatine) 2.5 mg [id number] PO Last administered on 09/22/18at 06:16; Start 09/18/18 at 13:00 Magnesium Sulfate 50 ml @ 25 mls/hr 1X ONCE IV Last administered on 09/18/18at 20:23; Start 09/18/18 at 21:00; Stop 09/18/18 at 22:59; Status DC Sodium Chloride 1,000 ml @ 1,000 mls/hr Q1H PRN IV hypotension; Start 09/19/18 at 20:42; Stop 09/20/18 at 02:41; Status DC Sodium Chloride (Normal Saline Flush) 10 ml 1X PRN PRN IV AP catheter pack; Start 09/19/18 at 20:45; Stop 09/20/18 at 20:44; Status DC Sodium Chloride (Normal Saline Flush) 10 ml 1X PRN PRN IV UX INTERACTION DESIGNER catheter pack; Start 09/19/18 at 20:45; Stop 09/20/18 at 20:44; Status DC Sodium Chloride 1,000 ml @ 400 mls/hr Q2H30M PRN IV PATENCY; Start 09/19/18 at 20:42; Stop 09/20/18 at 08:41; Status DC Info (PHARMACY MONITORING -- do not chart) 1 each PRN DAILY PRN MC SEE COMMENTS; Start 09/19/18 at 20:45; Stop 09/19/18 at 20:50; Status DC Info (PHARMACY MONITORING -- do not chart) 1 each PRN DAILY PRN MC SEE COMMENTS; Start 09/19/18 at 20:45 Heparin Sodium (Porcine) (Hep Lock Adult) 500 unit 1X ONCE IV Last administered on 09/21/18at 16:48; Start 09/21/18 at 16:15; Stop 09/21/18 at 16:21; Status DC Levofloxacin (Levaquin) 250 mg 1X ONCE PO Last administered on 09/21/18at 20:00; Start 09/21/18 at 20:00; Stop 09/21/18 at 20:01; Status DC Alteplase, Recombinant (Cathflo For Central Catheter Clearance) 1 mg 1X ONCE INT CAT ; Start 09/22/18 at 10:30; Stop 09/22/18 at 10:31 Active Scripts Active Midodrine Hcl 5 Mg Tablet 10 Mg PO [id number] 14 Days Reported Benadryl (Diphenhydramine Hcl) 25 Mg Capsule 25 Mg PO Q6HRS Calcium Acetate 667 Mg Tablet 667 Mg PO TIDWMEALS Dialyvite Tablet (Folic Acid/Vitamin B Comp W-C) 1 Each Tablet 1 Each PO DAILY Midodrine Hcl 5 Mg Tablet 5 Mg PO TID Cyclobenzaprine Hcl 5 Mg Tablet 1 Tab PO TID Omeprazole 40 Mg Capsule.dr 1 Cap PO DAILY Xifaxan (Rifaximin) 550 Mg Tablet 1 Tab PO BID Fusion Plus Capsule (Iron,Fum&Ps/Fa/Vit B&C#18/L.ca) 1 Each Capsule 1 Each PO Albuterol Sulfate Conc Neb Soln (Albuterol Sulfate) 2.5 Mg/0.5 Ml Vial.neb 2.5 Mg NEB Q6HRS PRN Lantus Solostar (Insulin Glargine,Hum.rec.anlog) 100 Unit/1 Ml Insuln.pen 0 SQ HS SSI Calcium + Vitamin D Tablet (Calcium Carbonate/Vitamin D3) 1 Each Tablet 1 Each PO Albuterol Sulfate Hfa Inhaler (Albuterol Sulfate) 8.5 Gm Hfa.aer.ad 8.5 Gm IH Novolog Flexpen (Insulin Aspart) 100 Unit/1 Ml Insuln.pen 0 SQ TIDAC ssi Synthroid (Levothyroxine Sodium) 25 Mcg Tablet 300 Mcg PO DAILY Flovent 110MCG Hfa (Fluticasone Propionate) 12 Gm Aer.w.adap 12 Gm IH Vitals/I & O Vital Sign - Last 24 Hours 09/21/18 09/21/18 09/21/18 09/21/18 11:30 13:01 15:15 17:07 Temp 98.0 98.6 98.0 98.6 Pulse 115 115 72 72 Resp 18 16 B/P (MAP) 90/41 (57) 90/41 125/65 (85) 125/65 Pulse Ox 95 97 O2 Delivery Room Air Room Air 09/21/18 09/21/18 09/21/18 09/21/18 19:00 19:48 19:49 20:00 Temp 98.2 98.2 Pulse 106 Resp 16 B/P (MAP) 94/32 (52) Pulse Ox 91 100 100 O2 Delivery Nasal Cannula Room Air Room Air Room Air O2 Flow Rate 2.0 2.0 09/21/18 09/22/18 09/22/18 09/22/18 23:00 03:00 06:16 07:00 Temp 97.8 98.4 98.1 97.8 98.4 98.1 Pulse 105 106 106 102 Resp 20 16 19 B/P (MAP) 89/29 (49) 99/33 (55) 99/33 114/58 (76) Pulse Ox 90 90 98 O2 Delivery Room Air Room Air Nasal Cannula O2 Flow Rate 2.0 09/22/18 07:32 O2 Delivery Room Air Intake and Output 09/21/18 09/21/18 09/22/18 14:59 22:59 06:59 Intake Total 540 ml 700 ml Balance 540 ml 700 ml SULTANA HERNANDES III DO Sep 22, 2018 10:25
[2018-09-22] MEDS ORDERED: ALTEPLASE 1MG SYRINGE. INT CAT ONE (10:30)
[2018-09-22 11:00] VITALS: BP 102/42
--- NOTE | 2018-09-22 11:47 | NUR ---
SS following up with discharge planning. Discharge orders received for home healthcare. Per SW notes pt will discharge to home with [facility], ; fax [phone]. SS phoned and faxed discharge orders and home healthcare referral to [facility]. Pt's RN notified.
[2018-09-22 14:34] LABS: ALBUMIN 2.9 g/dL (3.4-5.0); CALCIUM 8.9 mg/dL (8.5-10.1); CREATININE 4.8 mg/dL (0.6-1.0); GFR 9.2; PHOSPHORUS 3.3 mg/dL (2.6-4.7); POTASSIUM 3.2 mmol/L (3.5-5.1)
--- NOTE | 2018-09-22 14:44 | PDOC ---
SUBJECTIVE ROS No concerns, ready to go home after HD OBJECTIVE Vital Signs Vital Signs Date Time Temp Pulse Resp B/P (MAP) Pulse Ox O2 Delivery O2 Flow Rate FiO2 09/22/18 12:54 93 102/42 09/22/18 11:00 98.1 21 93 Room Air 98.1 09/22/18 07:00 2.0 I & 0 Intake and Output 09/22/18 07:00 Intake Total 1240 ml Balance 1240 ml Intake Oral 1240 ml # Bowel Movements 4 PHYSICAL EXAM Physical Exam GEN: Awake, Oriented x [], In [] distress EYES: Vision Unchanged, Conjunctiva Normal EN: No EN Drainage, Mucous Membranes [] NECK: [] JVD, [] JVP, Supple, [] Thyromegaly CVS: S1S2, [] Murmur, No Gallop, No Rub,[] Edema RESP: [] Rales, [] Rhonchi,[] Acc. Muscle Use GI: BS + ve, NO Bruit, Non Tender, Non Distended : [] CVA tenderness, [] Suprapubic Tenderness DIAGNOSIS/ASSESSMENT Assessment & Plan ESRD- On HD ROSELINE acevedo MWF Dialysis today as ordered, sharmin [employer] Intern Dyspnea, multifactorial in etiology including a left pleural effusion, volume overload, s/p left thoracentesis, no hemothorax, Chronic obstructive pulmonary disease. End-stage liver disease, cirrhosis../ DIAZ/NAFLD Anemia. . Thrombocytopenia. COMMENT/RELEVANT DATA Meds Current Medications Medications (Trade) Dose Ordered Sig/Emanuel Start Time Stop Time Status Last Admin Dose Admin Albumin Human 50 ml @ 50 mls/hr 1X ONCE 09/17/18 16:00 09/17/18 16:59 DC 09/17/18 16:53 50 MLS/HR Albuterol Sulfate (Ventolin Hfa) 2.5 puff QID 09/13/18 09:00 UNV Albuterol Sulfate (Ventolin Neb Soln) 2.5 mg RTQID 09/13/18 09:00 09/22/18 11:44 2.5 MG Alteplase, Recombinant (Cathflo For Central Catheter Clearance) 1 mg 1X ONCE 09/22/18 10:30 09/22/18 10:31 DC 09/22/18 10:22 1 MG Budesonide (Pulmicort) 0.5 mg 1X ONCE 09/13/18 08:45 09/13/18 08:46 DC 09/13/18 13:01 0.5 MG Calcium Acetate (Phoslo) 667 mg TIDWMEALS 09/13/18 08:00 09/22/18 12:48 667 MG Cyclobenzaprine HCl (Flexeril) 5 mg TID 09/12/18 21:15 09/14/18 08:37 DC 09/14/18 08:04 5 MG Darbepoetin Santana (Aranesp) 60 mcg WEEKLYHS 09/15/18 21:00 09/15/18 21:01 60 MCG Dextrose (Dextrose 50%-Water Syringe) 12.5 gm PRN Q15MIN PRN 09/13/18 09:15 Diphenhydramine HCl (Benadryl) 25 mg Q6HRS 09/13/18 00:00 09/14/18 08:37 DC 09/14/18 06:26 25 MG Fentanyl Citrate (Fentanyl 2ml Vial) 25 mcg PRN Q2HR PRN 09/13/18 08:00 Heparin Sodium (Porcine) (Hep Lock Adult) 500 unit 1X ONCE 09/21/18 16:15 09/21/18 16:21 DC 09/21/18 16:48 500 UNIT Info (PHARMACY MONITORING -- do not chart) 1 each PRN DAILY PRN 09/19/18 20:45 Insulin Glargine (Lantus) 20 units QHS 09/13/18 21:00 09/21/18 22:07 20 UNITS Insulin Human Lispro (HumaLOG) 10 units TIDWMEALS 09/13/18 12:00 09/22/18 12:54 10 UNITS Lactobacillus Rhamnosus (Culturelle) 1 cap BID 09/17/18 21:00 09/22/18 08:43 1 CAP Lactulose (Lactulose) 20 gm TID 09/12/18 21:00 09/22/18 08:44 20 GM Levofloxacin (Levaquin) 250 mg 1X ONCE 09/21/18 20:00 09/21/18 20:01 DC 09/21/18 20:00 250 MG Levofloxacin/ Dextrose 50 ml @ 50 mls/hr Q48H 09/19/18 16:00 09/21/18 16:55 DC 09/20/18 00:22 50 MLS/HR Levofloxacin/ Dextrose (Levaquin Per Pharmacy) 1 each PRN DAILY PRN 09/17/18 09:30 09/21/18 16:55 DC Levothyroxine Sodium (Synthroid) 300 mcg DAILY06 09/13/18 06:00 09/22/18 06:16 300 MCG Lidocaine/Sodium Bicarbonate (Buffered Lidocaine 1%) 3 ml STK-MED ONCE 09/17/18 14:08 09/17/18 14:09 DC Magnesium Sulfate 50 ml @ 25 mls/hr 1X ONCE 09/18/18 21:00 09/18/18 22:59 DC 09/18/18 20:23 25 MLS/HR Midodrine (Proamatine) 2.5 mg [id number] 09/18/18 13:00 09/22/18 12:54 2.5 MG Ondansetron HCl (Zofran) 4 mg PRN Q6HRS PRN 09/13/18 08:00 Pantoprazole Sodium (Protonix) 40 mg DAILYAC 09/13/18 07:30 09/22/18 06:17 40 MG Potassium Chloride (Klor-Con) 40 meq 1X ONCE 09/16/18 08:30 09/16/18 08:31 DC 09/16/18 09:10 40 MEQ Rifaximin (Xifaxan) 550 mg BID 09/13/18 09:00 09/22/18 08:43 550 MG Sodium Chloride 1,000 ml @ 400 mls/hr Q2H30M PRN 09/19/18 20:42 09/20/18 08:41 DC Sodium Chloride (Normal Saline Flush) 10 ml 1X PRN PRN 09/19/18 20:45 09/20/18 20:44 DC Vitamin B Complex/ Vitamin C (Tasia-Meliton) 1 tab DAILY 09/13/18 09:00 09/22/18 08:43 1 TAB Lab Laboratory Tests Test 09/21/18 17:08 09/21/18 20:14 09/22/18 07:38 09/22/18 12:05 Glucose (Fingerstick) 150 mg/dL (70-99) 204 mg/dL (70-99) 263 mg/dL (70-99) 178 mg/dL (70-99) Test 09/22/18 13:40 Sodium Level 135 mmol/L (136-145) Potassium Level 3.2 mmol/L (3.5-5.1) Chloride Level 98 mmol/L (98-107) Carbon Dioxide Level 22 mmol/L (21-32) Anion Gap 15 (6-14) Blood Urea Nitrogen 42 mg/dL (7-20) Creatinine 4.8 mg/dL (0.6-1.0) Estimated GFR (Cockcroft-Gault) 9.2 Glucose Level 209 mg/dL (70-99) Calcium Level 8.9 mg/dL (8.5-10.1) Phosphorus Level 3.3 mg/dL (2.6-4.7) Albumin 2.9 g/dL (3.4-5.0) Results All relevant outside records, renal labs, imaging studies, telemetry/EKG's were reviewed. DARLING SHORT MD Sep 22, 2018 14:44
[2018-09-22 15:00] VITALS: BP 107/45
--- NOTE | 2018-09-22 15:30 | NUR ---
Wound care: Attempted to see patient regarding wound care. Patient known to us from previous admissions. Patient refusing wound care at this time. Patient stated she was discharging today and did not need wound care at this time. Discussed the importance of wound care, patient still refusing.
--- NOTE | 2018-09-22 15:55 | NUR ---
Wound Care Pt refused assessment of skin/wounds for discharge assessment with photos.
[2018-09-22] MEDS ORDERED: IV NORMAL SALINE 1000ML BAG 1,000 ML IV PRN (16:47)
[2018-09-22] MEDS ORDERED: diphenhydrAMINE 50 MG/ML VIAL IV PRN ×2 (17:00)
[2018-09-22] MEDS ORDERED: DIALYSIS PATIENT. MC PRN (17:00)
[2018-09-22] MEDS ORDERED: ALBUMIN HUMAN 25% 200 ML IV PRN (17:00)
--- NOTE | 2018-09-22 19:38 | DS ---
DATE OF DISCHARGE: 09/22/2018 ADMISSION DIAGNOSES: Nonalcoholic steatohepatitis syndrome, fall, knee pain, chronic obstructive pulmonary disease, and leukocytosis. DISCHARGE DIAGNOSES: Resolving knee pain, chronic nonalcoholic steatohepatitis syndrome, end-stage renal disease on dialysis, chronic obstructive pulmonary disease; leukocytosis, resolving; history of hypertension, hyperlipidemia, asthma, gastroesophageal reflux disease, cirrhosis, depression, arthritis, diabetes, hypothyroidism and hyperparathyroidism. CONSULTS: Nephrology and Pulmonary. PROCEDURES: Dialysis. HOSPITAL COURSE: The patient is a pleasant elderly female who has DIAZ syndrome. Basically, she is slowly declining. Her long-term prognosis is quite poor. She fell. We admitted her. We did some dialysis. We consulted Pulmonary and Nephrology. I feel she should probably go home with hospice, but she really does not want hospice at this time. We tried to get her setup for a group home facility, but that is not working out. Basically, this morning, I saw her and examined her. Her heart tones were normal. Her lungs are clear, but her abdomen is distended. She is at her baseline. We plan to discharge with home health. DISPOSITION: Home with home health. ACTIVITY: As tolerated. DIET: Renal/hepatic. MEDICATIONS: Will resume previous home medications. TOTAL TIME: 33 minutes. SULTANA HERNANDES DO DR: DONAL/rebeka JOB#: [id number] / [id number]
[2018-09-22] MEDS ORDERED: HEPARIN PF 500 UNIT/5 ML DISP.SYRIN. IV ONE (20:15)
[2018-09-22 20:50] VITALS: BP 107/45
[2018-09-22] MEDS: INSULIN GLARGINE 300 UNITS/3 ML INSULN.PEN. SQ SCH (20:56)
[2018-09-22] MEDS: DARBEPOETIN ALFA 60 MCG/0.3 ML DISP.SYRIN. SQ SCH (20:59)
--- NOTE | 2018-09-22 21:50 | NUR ---
Discharge Note: YANIRA BRAVO Discharge instructions and discharge home medications reviewed with Patient and a copy given. All questions have been answered and understanding verbalized. The following instructions and handouts were given: discharge instructions, medication list, follow-up instructions, patient education. Discontinued lines and drains: PortaCath to right chest was heparin locked and deaccessed without difficulty. Dressing placed over site for protection. Patient discharged to home with Home Health via transportation van.
[2018-10-01] MEDS ORDERED: LEVO500T59 PO (09:59)
== END 2018-09-22 21:40 | disposition home health service (06) | DRG 441 ==
LOC: ER 17:11 → 5 NORTH 18:15
PROVIDERS: ADMIT Family Medicine; ATTEND Family Medicine
PROC: 5A1D70Z Performance of Urinary Filtration, Intermittent, Less than 6 Hours Per Day (ICD-10-PCS; 2018-09-13)
PROC: 5A1D70Z Performance of Urinary Filtration, Intermittent, Less than 6 Hours Per Day (ICD-10-PCS; 2018-09-15)
PROC: 0W9B3ZZ Drainage of Left Pleural Cavity, Percutaneous Approach (ICD-10-PCS; principal; 2018-09-17)
PROC: 0W9G3ZZ Drainage of Peritoneal Cavity, Percutaneous Approach (ICD-10-PCS; 2018-09-17)
PROC: 5A1D70Z Performance of Urinary Filtration, Intermittent, Less than 6 Hours Per Day (ICD-10-PCS; 2018-09-17)
PROC: 5A1D70Z Performance of Urinary Filtration, Intermittent, Less than 6 Hours Per Day (ICD-10-PCS; 2018-09-19)
PROC: 5A1D70Z Performance of Urinary Filtration, Intermittent, Less than 6 Hours Per Day (ICD-10-PCS; 2018-09-22)
DX: K72.90 Hepatic failure, unspecified without coma (principal); N18.6 End stage renal disease; I12.0 Hypertensive chronic kidney disease with stage 5 chronic kidney disease or end stage renal disease; J90 Pleural effusion, not elsewhere classified; R18.8 Other ascites; I85.10 Secondary esophageal varices without bleeding; K75.81 Nonalcoholic steatohepatitis (NASH); D63.1 Anemia in chronic kidney disease; D69.6 Thrombocytopenia, unspecified; E21.3 Hyperparathyroidism, unspecified; F32.9 Major depressive disorder, single episode, unspecified; F41.9 Anxiety disorder, unspecified; M19.90 Unspecified osteoarthritis, unspecified site; D72.829 Elevated white blood cell count, unspecified; E03.9 Hypothyroidism, unspecified; E11.22 Type 2 diabetes mellitus with diabetic chronic kidney disease; E78.5 Hyperlipidemia, unspecified; E87.70 Fluid overload, unspecified; G89.29 Other chronic pain; J44.9 Chronic obstructive pulmonary disease, unspecified; K21.9 Gastro-esophageal reflux disease without esophagitis; K74.60 Unspecified cirrhosis of liver; Z88.8 Allergy status to other drugs, medicaments and biological substances; R62.7 Adult failure to thrive; W18.39XA Other fall on same level, initial encounter; Z82.49 Family history of ischemic heart disease and other diseases of the circulatory system; Z87.891 Personal history of nicotine dependence; Z90.710 Acquired absence of both cervix and uterus; Z91.19 Patient's noncompliance with other medical treatment and regimen; Z91.81 History of falling; Z99.2 Dependence on renal dialysis; Z87.440 Personal history of urinary (tract) infections; Z88.2 Allergy status to sulfonamides; Y93.89 Activity, other specified; Y92.89 Other specified places as the place of occurrence of the external cause; Y99.8 Other external cause status; Z79.4 Long term (current) use of insulin
CPT/HCPCS: 32555; 36415; 49083; 71045; 73562; 80048; 80053; 80069; 82140; 82306; 82533; 82945; 82962; 83036; 83615; 83735; 83880; 83986; 84100; 84157; 84439; 84443; 84481; 84484; 85007; 85014; 85018; 85025; 85610; 85651; 87071; 87075; 87116; 88112; 88305; 89050; 93005; 93306; 94640; 94760; 96361; 96374; 96375; A4215; C1729; J0881; J1815; J1956; J3010; J3475; J7030; J7040; J7613; J7626; P9046; Q0163; 97110; 97116; 97530; 97535; 99285-25

== ENCOUNTER 2018-09-25 02:10 | Inpatient (IN) | payer MEDICAID ==
[2018-09-25] VITALS (13 sets, daily range): BP systolic 75–105; BP diastolic 20–57
[~2018-09-25] VITALS: Ht 160 cm; Wt 71.7 kg
--- NOTE | 2018-09-25 02:31 | PHYS DOC ---
Past Medical History Past Medical History: COPD, Diabetes-Type II, Liver Disease, Renal Disease, Renal Failure, Other Additional Past Medical Histor: neuropathy,gallstones,non etoh cirossis Past Surgical History: Hysterectomy, Other Additional Past Surgical Histo: esophogeal banding after esoph. varacies. PORT PLACEMENT R CHEST Alcohol Use: None Drug Use: None Adult General Chief Complaint Chief Complaint: OTHER COMPLAINTS HPI HPI 63-year-old very unfortunate female with multiple medical problems including DIAZ and end-stage renal disease on hemodialysis presents secondary to progressive ascites and the need for paracentesis. She also states she's missed dialysis. She also states that she has become progressively weak over the last several days she's been unable to get out of bed or ambulate on her own. She states at this point now her family is unable to take care of her at home. She denies any fever chills or sweats. She's had no nausea or vomiting. Tonight, she states that she had diarrhea all over herself and her son was drunk and would not help take care of her.[] Review of Systems Review of Systems Constitutional: Denies fever or chills [] Eyes: Denies change in visual acuity, redness, or eye pain [] HENT: Denies nasal congestion or sore throat [] Respiratory: Denies cough or shortness of breath [] Cardiovascular: No additional information not addressed in HPI [] GI: Progressive abdominal swelling and pain[] : Denies dysuria or hematuria [] Musculoskeletal: Denies back pain or joint pain [] Integument: Denies rash or skin lesions [] Neurologic: Denies headache, focal weakness or sensory changes [] Endocrine: Denies polyuria or polydipsia [] All other systems were reviewed and found to be within normal limits, except as documented in this note. Allergies Allergies Allergies Coded Allergies Type Severity Reaction Last Updated Verified Sulfa (Sulfonamide Antibiotics) Allergy Severe Swelling 04/24/18 Yes cephalexin Allergy Severe Anaphylaxis 05/22/18 Yes doxycycline Allergy Intermediate 04/24/18 Yes gabapentin Allergy Intermediate Anxiety 06/04/18 Yes insulin detemir Allergy Intermediate Rash 04/24/18 Yes morphine Allergy Intermediate rash 04/24/18 Yes niacin Allergy Intermediate Rash 04/24/18 Yes oxycodone Allergy Intermediate rash 04/24/18 Yes povidone-iodine Allergy Intermediate It 04/24/18 Yes rifaximin Allergy Intermediate Itching 09/04/18 Yes tramadol Allergy Intermediate Rash 04/24/18 Yes I S O L A T I O N *CONTACT* Allergy Unknown 04/24/18 Yes codeine Adverse Reaction Intermediate Nausea and Vomiting 04/24/18 Yes erythromycin base Adverse Reaction Intermediate Diarrhea 04/24/18 Yes Physical Exam Physical Exam Constitutional: Frail, chronically ill but nontoxic. [] HENT: Normocephalic, atraumatic, bilateral external ears normal, oropharynx moist, no oral exudates, nose normal. [] Eyes: PERRLA, EOMI, conjunctiva normal, no discharge. [] Neck: Normal range of motion, no tenderness, supple, no stridor. [] Cardiovascular:Heart rate regular rhythm, no murmur [] Lungs & Thorax: Bilateral breath sounds clear to auscultation [] Abdomen: Significant palpable ascites and abdominal swelling but no tenderness or rebound. [] Skin: Warm, dry, no erythema, no rash. [] Back: No tenderness, no CVA tenderness. [] Extremities: No tenderness, no cyanosis, no clubbing, ROM intact, no edema. [] Neurologic: Alert and oriented X 3, normal motor function, normal sensory function, no focal deficits noted. [] Psychologic: Depressed affect very tearful. [] Current Patient Data Vital Signs Vital Signs Date Time Temp Pulse Resp B/P (MAP) Pulse Ox O2 Delivery O2 Flow Rate FiO2 09/25/18 02:25 98.4 102 20 94/44 (61) 92 Room Air 98.4 EKG EKG [] Radiology/Procedures Radiology/Procedures [] Course & Med Decision Making Course & Med Decision Making Pertinent Labs and Imaging studies reviewed. (See chart for details) [ED course: Evaluation reveals a 63-year-old female with multiple chronic medical problems who is unable to care for herself at home secondary to generalized weakness. She's missed dialysis appointment and she also has an appo intment for a paracentesis that she was given a be unable to make. I believe she needs to be hospitalized to make sure that adequate care as provided her. It had a discussion with her that she will likely need retirement placement if she is unable to perform her activities of daily living.] Dragon Disclaimer Dragon Disclaimer This electronic medical record was generated, in whole or in part, using a voice recognition dictation system. Departure Departure Impression: Primary Impression: End stage renal disease Additional Impression: Cirrhosis Disposition: 09 ADMITTED INPATIENT Admitting Physician: PIERO Condition: GUARDED Referrals: VIANEY VU DO (PCP) Problem Qualifiers Additional Impression: Cirrhosis Hepatic cirrhosis type: unspecified hepatic cirrhosis Ascites presence: with ascites Qualified Codes: K74.60 - Unspecified cirrhosis of liver; R18.8 - Other ascites JESSE KELSEY DO Sep 25, 2018 02:30
[2018-09-25 03:21] LABS: BASO % 0 % (0-3); EOS # 0.1 x10^3/uL (0.0-0.7); EOS % 1 % (0-3); HEMATOCRIT 23.9 % (36.0-47.0); HEMOGLOBIN 7.9 g/dL (12.0-15.5); LYMPH # 0.6 x10^3/uL (1.0-4.8); LYMPH % 5 % (24-48); MEAN CORPUSCULAR HEMOGLOBIN 32 pg (25-35); MEAN CORPUSCULAR HGB CONC 33 g/dL (31-37); MEAN CORPUSCULAR VOLUME 97 fL (79-100); MONO # 1.1 x10^3/uL (0.0-1.1); MONO % 10 % (0-9); NEUT # 10.1 x10^3uL (1.8-7.7); NEUT % 84 % (31-73); PLATELET COUNT 91 x10^3/uL (140-400); RED BLOOD COUNT 2.47 x10^6/uL (3.50-5.40); RED CELL DISTRIBUTION WIDTH 21.8 % (11.5-14.5)
[2018-09-25 03:41] LABS: CALCIUM 8.4 mg/dL (8.5-10.1); CREATININE 4.8 mg/dL (0.6-1.0); GFR 9.2; POTASSIUM 4.3 mmol/L (3.5-5.1)
[2018-09-25 03:47] LABS: ALBUMIN 2.7 g/dL (3.4-5.0); TOTAL BILIRUBIN 3.3 mg/dL (0.2-1.0); TOTAL PROTEIN 5.4 g/dL (6.4-8.2)
[2018-09-25 05:01] LABS: ANISOCYTOSIS SLIGHT; HYPOCHROMIA SLIGHT; PLT ESTIMATE DECREASED (ADEQUATE); POLYCHROMASIA SLIGHT; TARGET CELLS OCC
--- NOTE | 2018-09-25 10:52 | NUR ---
IP: Pt has a hx of MDRO's in urine since 11/2017 with most recent on 09/07/18 with Klebsiella resistant to Meropenum. Pt to be in contact precautions until there are 2 negative urine cultures 7 days apart without antibiotics.
--- NOTE | 2018-09-25 11:05 | PDOC1 ---
History and Physical Date of Admission: Date of Admission DATE: 09/25/18 TIME: 11:02 Chief Complaint: Problems: (1) Left knee pain (2) Generalized weakness (3) Renal failure (4) Sepsis (5) Change in mental status (6) Anemia (7) Renal failure (8) Liver failure (9) End stage renal disease (10) Cirrhosis (11) Hypotension (12) Fall Chief Complain: Massive ascites Severe Boyle syndrome History of Present Illness: HPI: Patient is a pleasant middle-aged white female who has Boyle syndrome We just discharge a few days ago but her abdomen is becoming distended with severe ascites Once again she's short of breath she was asked he scheduled to have a paracentesis yesterday but couldn't get it done Instead she was admitted overnight I saw her and examined her this morning She rates her symptoms at 10 out 10 describes as agonizing and worse with movement I went upstairs and talk to average radiologist he has on scheduled to go for another paracentesis this afternoon Past Medical/Surgical History: PMH/PSH: Past Medical History: COPD, Diabetes-Type II, Liver Disease, Renal Disease, Renal Failure, Other Additional Past Medical Histor: neuropathy,gallstones,non etoh cirossis Past Surgical History: Hysterectomy, Other Additional Past Surgical Histo: esophogeal banding after esoph. varacies. PORT PLACEMENT R CHEST A Allergies: Allergies: Coded Allergies: Sulfa (Sulfonamide Antibiotics) (Verified Allergy, Severe, Swelling, 04/24/18) tongue swelling, rash cephalexin (Verified Allergy, Severe, Anaphylaxis, 05/22/18) TOLERATES AMOX, ZOSYN doxycycline (Verified Allergy, Intermediate, 04/24/18) gabapentin (Verified Allergy, Intermediate, Anxiety, 06/04/18) pt states gabapentin caused her to be admitted to [facility] where she presented "because I was out of my mind from that drug." insulin detemir (Verified Allergy, Intermediate, Rash, 04/24/18) morphine (Verified Allergy, Intermediate, rash, 04/24/18) niacin (Verified Allergy, Intermediate, Rash, 04/24/18) edema oxycodone (Verified Allergy, Intermediate, rash, 04/24/18) povidone-iodine (Verified Allergy, Intermediate, It, 04/24/18) rifaximin (Verified Allergy, Intermediate, Itching, 09/04/18) takes at home and multi times previously OK, just doesn't like it. tramadol (Verified Allergy, Intermediate, Rash, 04/24/18) I S O L A T I O N *CONTACT* (Verified Allergy, Unknown, 04/24/18) VRE - urine 12/20/17 codeine (Verified Adverse Reaction, Intermediate, Nausea and Vomiting, 04/24/18) erythromycin base (Verified Adverse Reaction, Intermediate, Diarrhea, 04/24/18) Family History: Family History: Diabetes Social History: Social Hisoty: She doesn't drink smoke or take drugs Current Medications: Current Medications Active Scripts Active Midodrine Hcl 5 Mg Tablet 10 Mg PO [id number] 14 Days Reported Benadryl (Diphenhydramine Hcl) 25 Mg Capsule 25 Mg PO Q6HRS Calcium Acetate 667 Mg Tablet 667 Mg PO TIDWMEALS Dialyvite Tablet (Folic Acid/Vitamin B Comp W-C) 1 Each Tablet 1 Each PO DAILY Cyclobenzaprine Hcl 5 Mg Tablet 1 Tab PO TID Omeprazole 40 Mg Capsule.dr 1 Cap PO DAILY Xifaxan (Rifaximin) 550 Mg Tablet 1 Tab PO BID Fusion Plus Capsule (Iron,Fum&Ps/Fa/Vit B&C#18/L.ca) 1 Each Capsule 1 Each PO Albuterol Sulfate Conc Neb Soln (Albuterol Sulfate) 2.5 Mg/0.5 Ml Vial.neb 2.5 Mg NEB Q6HRS PRN Lactulose 20 Gm/30 Ml Solution 20 Gm PO TID Lantus Solostar (Insulin Glargine,Hum.rec.anlog) 100 Unit/1 Ml Insuln.pen 0 SQ HS SSI Calcium + Vitamin D Tablet (Calcium Carbonate/Vitamin D3) 1 Each Tablet 1 Each PO Albuterol Sulfate Hfa Inhaler (Albuterol Sulfate) 8.5 Gm Hfa.aer.ad 8.5 Gm IH Novolog Flexpen (Insulin Aspart) 100 Unit/1 Ml Insuln.pen 0 SQ TIDAC ssi Synthroid (Levothyroxine Sodium) 25 Mcg Tablet 300 Mcg PO DAILY Flovent 110MCG Hfa (Fluticasone Propionate) 12 Gm Aer.w.adap 12 Gm IH ROS: Review of Systems Review of System REVIEW OF SYSTEMS: GENERAL: Denies weakness SKIN: No bruising, hair changes or rashes. EYES: No blurred, double or loss of vision. NOSE AND THROAT: No history of nosebleeds, hoarseness or sore throat. HEART: No history of palpitations, chest pain or shortness of breath on exertion. LUNGS: She complains of severe shortness of breath GASTROINTESTINAL: She combines of severe abdominal distention GENITOURINARY: No history of frequency, urgency, hesitancy or nocturia. NEUROLOGIC: Denies history of numbness, tingling, tremor or weakness. PSYCHIATRIC: No history of panic, anxiety or depression. ENDOCRINE: No history of heat or cold intolerance, polyuria or polydipsia. EXTREMITIES: Denies muscle weakness, joint pain, pain on walking or stiffness. Physical Exam: Vital Signs: Vital Signs Date Time Temp Pulse Resp B/P (MAP) Pulse Ox O2 Delivery O2 Flow Rate FiO2 09/25/18 08:00 Room Air 09/25/18 07:00 98.3 94 14 80/26 (44) 92 98.3 Physcial Exam: GEN.: She has massive ascites HEENT: Head is normocephalic, atraumatic NECK: Supple, no JVD LUNGS: Decreased breath sounds HEART: RRR, S1, S2 present. Peripheral pulses intact ABDOMEN: Massive ascites EXTREMITIES: Without any cyanosis, clubbing, or edema. Pedal pulses intact NEUROLOGIC: Normal speech, normal tone. A&O x 3 PSYCHIATRIC: Anxious SKIN: No ulcerations or rashes VASCULAR: Good capillary refill Labs: Labs: Laboratory Tests Test 09/25/18 03:10 09/25/18 07:46 White Blood Count 12.0 x10^3/uL (4.0-11.0) Red Blood Count 2.47 x10^6/uL (3.50-5.40) Hemoglobin 7.9 g/dL (12.0-15.5) Hematocrit 23.9 % (36.0-47.0) Mean Corpuscular Volume 97 fL (79-100) Mean Corpuscular Hemoglobin 32 pg (25-35) Mean Corpuscular Hemoglobin Concent 33 g/dL (31-37) Red Cell Distribution Width 21.8 % (11.5-14.5) Platelet Count 91 x10^3/uL (140-400) Neutrophils (%) (Auto) 84 % (31-73) Lymphocytes (%) (Auto) 5 % (24-48) Monocytes (%) (Auto) 10 % (0-9) Eosinophils (%) (Auto) 1 % (0-3) Basophils (%) (Auto) 0 % (0-3) Neutrophils # (Auto) 10.1 x10^3uL (1.8-7.7) Lymphocytes # (Auto) 0.6 x10^3/uL (1.0-4.8) Monocytes # (Auto) 1.1 x10^3/uL (0.0-1.1) Eosinophils # (Auto) 0.1 x10^3/uL (0.0-0.7) Basophils # (Auto) 0.0 x10^3/uL (0.0-0.2) Platelet Estimate Decreased (ADEQUATE) Polychromasia Slight Hypochromasia Slight Anisocytosis Slight Target Cells Occ Sodium Level 132 mmol/L (136-145) Potassium Level 4.3 mmol/L (3.5-5.1) Chloride Level 96 mmol/L (98-107) Carbon Dioxide Level 23 mmol/L (21-32) Anion Gap 13 (6-14) Blood Urea Nitrogen 43 mg/dL (7-20) Creatinine 4.8 mg/dL (0.6-1.0) Estimated GFR (Cockcroft-Gault) 9.2 BUN/Creatinine Ratio 9 (6-20) Glucose Level 205 mg/dL (70-99) Calcium Level 8.4 mg/dL (8.5-10.1) Total Bilirubin 3.3 mg/dL (0.2-1.0) Aspartate Amino Transf (AST/SGOT) 74 U/L (15-37) Alanine Aminotransferase (ALT/SGPT) 42 U/L (14-59) Alkaline Phosphatase 292 U/L (46-116) Total Protein 5.4 g/dL (6.4-8.2) Albumin 2.7 g/dL (3.4-5.0) Albumin/Globulin Ratio 1.0 (1.0-1.7) Glucose (Fingerstick) 169 mg/dL (70-99) Laboratory Tests Test 09/25/18 03:10 09/25/18 07:46 White Blood Count 12.0 x10^3/uL (4.0-11.0) Red Blood Count 2.47 x10^6/uL (3.50-5.40) Hemoglobin 7.9 g/dL (12.0-15.5) Hematocrit 23.9 % (36.0-47.0) Mean Corpuscular Volume 97 fL (79-100) Mean Corpuscular Hemoglobin 32 pg (25-35) Mean Corpuscular Hemoglobin Concent 33 g/dL (31-37) Red Cell Distribution Width 21.8 % (11.5-14.5) Platelet Count 91 x10^3/uL (140-400) Neutrophils (%) (Auto) 84 % (31-73) Lymphocytes (%) (Auto) 5 % (24-48) Monocytes (%) (Auto) 10 % (0-9) Eosinophils (%) (Auto) 1 % (0-3) Basophils (%) (Auto) 0 % (0-3) Neutrophils # (Auto) 10.1 x10^3uL (1.8-7.7) Lymphocytes # (Auto) 0.6 x10^3/uL (1.0-4.8) Monocytes # (Auto) 1.1 x10^3/uL (0.0-1.1) Eosinophils # (Auto) 0.1 x10^3/uL (0.0-0.7) Basophils # (Auto) 0.0 x10^3/uL (0.0-0.2) Platelet Estimate Decreased (ADEQUATE) Polychromasia Slight Hypochromasia Slight Anisocytosis Slight Target Cells Occ Sodium Level 132 mmol/L (136-145) Potassium Level 4.3 mmol/L (3.5-5.1) Chloride Level 96 mmol/L (98-107) Carbon Dioxide Level 23 mmol/L (21-32) Anion Gap 13 (6-14) Blood Urea Nitrogen 43 mg/dL (7-20) Creatinine 4.8 mg/dL (0.6-1.0) Estimated GFR (Cockcroft-Gault) 9.2 BUN/Creatinine Ratio 9 (6-20) Glucose Level 205 mg/dL (70-99) Calcium Level 8.4 mg/dL (8.5-10.1) Total Bilirubin 3.3 mg/dL (0.2-1.0) Aspartate Amino Transf (AST/SGOT) 74 U/L (15-37) Alanine Aminotransferase (ALT/SGPT) 42 U/L (14-59) Alkaline Phosphatase 292 U/L (46-116) Total Protein 5.4 g/dL (6.4-8.2) Albumin 2.7 g/dL (3.4-5.0) Albumin/Globulin Ratio 1.0 (1.0-1.7) Glucose (Fingerstick) 169 mg/dL (70-99) Assessment/Plan Assessment/Plan 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 varacies. PORT PLACEMENT R CHEST Plan Paracentesis today Home meds DVT prophylaxis I believe she wants to be full code Prognosis long-term is probably terminal Frequent labs SULTANA HERNANDES III, DO Sep 25, 2018 11:05
--- NOTE | 2018-09-25 11:21 | PDOC2 ---
CONSULT Date of Consult Date of Consult DATE: 09/25/18 TIME: 11:09 History of Present Illness Reason for Visit: 63-year-old CF recently discharged on 09/22 , frequent hospitalization , with multiple medical problems including DIAZ and end-stage renal disease on hemodialysis presents secondary to progressive ascites and the need for paracentesis. She also states she's missed dialysis on wed - Chronic Non compliance with OP dialysis She also states that she has become progressively weak over the last several days she's been unable to get out of bed or ambulate on her own. She states at this point now her family is unable to take care of her at home. She denies any fever chills or sweats. She's had no nausea or vomiting. She states she had diarrhea all over herself and her son was drunk and would not help take care of her. Past Medical History Cardiovascular: HTN, Hyperlipidemia Pulmonary: Asthma, COPD CENTRAL NERVOUS SYSTEM: Other GI: Constipation, GERD, GI bleed, Gastritis, Hemorrhoids, Other Heme/Onc: Anemia NOS Hepatobiliary: Cirrhosis Psych: Anxiety, Depression Musculoskeletal: Osteoarthritis Renal/: Acute renal failure, Chronic renal failure, UTI, Urinary Incontinence Endocrine: Diabetes, Hypothyroidism, Hyperparathyroidism Past Surgical History Past Surgical History: Cataract Removal, Tonsillectomy, Hysterectomy, Other Family History Family History: High Cholestrol, Hypertension, Family History Unknown Social History ALCOHOL: none Drugs: None Current Medications Current Medications Active Scripts Active Midodrine Hcl 5 Mg Tablet 10 Mg PO [id number] 14 Days Reported Benadryl (Diphenhydramine Hcl) 25 Mg Capsule 25 Mg PO Q6HRS Calcium Acetate 667 Mg Tablet 667 Mg PO TIDWMEALS Dialyvite Tablet (Folic Acid/Vitamin B Comp W-C) 1 Each Tablet 1 Each PO DAILY Cyclobenzaprine Hcl 5 Mg Tablet 1 Tab PO TID Omeprazole 40 Mg Capsule.dr 1 Cap PO DAILY Xifaxan (Rifaximin) 550 Mg Tablet 1 Tab PO BID Fusion Plus Capsule (Iron,Fum&Ps/Fa/Vit B&C#18/L.ca) 1 Each Capsule 1 Each PO Albuterol Sulfate Conc Neb Soln (Albuterol Sulfate) 2.5 Mg/0.5 Ml Vial.neb 2.5 Mg NEB Q6HRS PRN Lactulose 20 Gm/30 Ml Solution 20 Gm PO TID Lantus Solostar (Insulin Glargine,Hum.rec.anlog) 100 Unit/1 Ml Insuln.pen 0 SQ HS SSI Calcium + Vitamin D Tablet (Calcium Carbonate/Vitamin D3) 1 Each Tablet 1 Each PO Albuterol Sulfate Hfa Inhaler (Albuterol Sulfate) 8.5 Gm Hfa.aer.ad 8.5 Gm IH Novolog Flexpen (Insulin Aspart) 100 Unit/1 Ml Insuln.pen 0 SQ TIDAC ssi Synthroid (Levothyroxine Sodium) 25 Mcg Tablet 300 Mcg PO DAILY Flovent 110MCG Hfa (Fluticasone Propionate) 12 Gm Aer.w.adap 12 Gm IH Allergies Allergies: Coded Allergies: Sulfa (Sulfonamide Antibiotics) (Verified Allergy, Severe, Swelling, 04/24/18) tongue swelling, rash cephalexin (Verified Allergy, Severe, Anaphylaxis, 05/22/18) TOLERATES AMOX, ZOSYN doxycycline (Verified Allergy, Intermediate, 04/24/18) gabapentin (Verified Allergy, Intermediate, Anxiety, 06/04/18) pt states gabapentin caused her to be admitted to [facility] where she presented "because I was out of my mind from that drug." insulin detemir (Verified Allergy, Intermediate, Rash, 04/24/18) morphine (Verified Allergy, Intermediate, rash, 04/24/18) niacin (Verified Allergy, Intermediate, Rash, 04/24/18) edema oxycodone (Verified Allergy, Intermediate, rash, 04/24/18) povidone-iodine (Verified Allergy, Intermediate, It, 04/24/18) rifaximin (Verified Allergy, Intermediate, Itching, 09/04/18) takes at home and multi times previously OK, just doesn't like it. tramadol (Verified Allergy, Intermediate, Rash, 04/24/18) I S O L A T I O N *CONTACT* (Verified Allergy, Unknown, 04/24/18) VRE - urine 12/20/17 codeine (Verified Adverse Reaction, Intermediate, Nausea and Vomiting, 04/24/18) erythromycin base (Verified Adverse Reaction, Intermediate, Diarrhea, 04/24/18) ROS Review of System Per HPI Physical Exam Physical Exam GEN.: NAD , sitting up in bed and eating Breakfast HEENT: OM moist NECK: Supple, no JVD LUNGS: CTA, Non labored HEART: RRR, S1, S2 present. ABDOMEN: ascites ++ EXTREMITIES: No edema. NEUROLOGIC: Grossly normal SKIN: No Rash No Ashley Vital Signs Vital Signs Date Time Temp Pulse Resp B/P (MAP) Pulse Ox O2 Delivery O2 Flow Rate FiO2 09/25/18 08:00 Room Air 09/25/18 07:00 98.3 94 14 80/26 (44) 92 98.3 Assessment & Plan ESRD- On HD [facility]LINE DOWD- Dr. Tracy Chronic Non compliance with OP dialysis, Frequent hospitalization Last HD on 09/22 while inpatient, didin't go for HD yesterday Currently No emergent Indication for HD, Tomorrow per schedule Chr Hypotension due to ESLD ? paracentesis Today per primary Pt should be on Palliative/Hospice care if not a candidate for Liver Transplant Hx of Dyspnea, / left pleural effusion, s/p left thoracentesis Currently stable resp status Chronic obstructive pulmonary disease. End-stage liver disease, cirrhosis../ DIAZ/NAFLD Ascites- gets Paracentesis Every week as OP Anemia- LUC per protocol Thrombocytopenia. Labs Labs Laboratory Tests Test 09/25/18 03:10 09/25/18 07:46 White Blood Count 12.0 x10^3/uL (4.0-11.0) Red Blood Count 2.47 x10^6/uL (3.50-5.40) Hemoglobin 7.9 g/dL (12.0-15.5) Hematocrit 23.9 % (36.0-47.0) Mean Corpuscular Volume 97 fL (79-100) Mean Corpuscular Hemoglobin 32 pg (25-35) Mean Corpuscular Hemoglobin Concent 33 g/dL (31-37) Red Cell Distribution Width 21.8 % (11.5-14.5) Platelet Count 91 x10^3/uL (140-400) Neutrophils (%) (Auto) 84 % (31-73) Lymphocytes (%) (Auto) 5 % (24-48) Monocytes (%) (Auto) 10 % (0-9) Eosinophils (%) (Auto) 1 % (0-3) Basophils (%) (Auto) 0 % (0-3) Neutrophils # (Auto) 10.1 x10^3uL (1.8-7.7) Lymphocytes # (Auto) 0.6 x10^3/uL (1.0-4.8) Monocytes # (Auto) 1.1 x10^3/uL (0.0-1.1) Eosinophils # (Auto) 0.1 x10^3/uL (0.0-0.7) Basophils # (Auto) 0.0 x10^3/uL (0.0-0.2) Platelet Estimate Decreased (ADEQUATE) Polychromasia Slight Hypochromasia Slight Anisocytosis Slight Target Cells Occ Sodium Level 132 mmol/L (136-145) Potassium Level 4.3 mmol/L (3.5-5.1) Chloride Level 96 mmol/L (98-107) Carbon Dioxide Level 23 mmol/L (21-32) Anion Gap 13 (6-14) Blood Urea Nitrogen 43 mg/dL (7-20) Creatinine 4.8 mg/dL (0.6-1.0) Estimated GFR (Cockcroft-Gault) 9.2 BUN/Creatinine Ratio 9 (6-20) Glucose Level 205 mg/dL (70-99) Calcium Level 8.4 mg/dL (8.5-10.1) Total Bilirubin 3.3 mg/dL (0.2-1.0) Aspartate Amino Transf (AST/SGOT) 74 U/L (15-37) Alanine Aminotransferase (ALT/SGPT) 42 U/L (14-59) Alkaline Phosphatase 292 U/L (46-116) Total Protein 5.4 g/dL (6.4-8.2) Albumin 2.7 g/dL (3.4-5.0) Albumin/Globulin Ratio 1.0 (1.0-1.7) Glucose (Fingerstick) 169 mg/dL (70-99) Laboratory Tests Test 09/25/18 03:10 09/25/18 07:46 White Blood Count 12.0 x10^3/uL (4.0-11.0) Red Blood Count 2.47 x10^6/uL (3.50-5.40) Hemoglobin 7.9 g/dL (12.0-15.5) Hematocrit 23.9 % (36.0-47.0) Mean Corpuscular Volume 97 fL (79-100) Mean Corpuscular Hemoglobin 32 pg (25-35) Mean Corpuscular Hemoglobin Concent 33 g/dL (31-37) Red Cell Distribution Width 21.8 % (11.5-14.5) Platelet Count 91 x10^3/uL (140-400) Neutrophils (%) (Auto) 84 % (31-73) Lymphocytes (%) (Auto) 5 % (24-48) Monocytes (%) (Auto) 10 % (0-9) Eosinophils (%) (Auto) 1 % (0-3) Basophils (%) (Auto) 0 % (0-3) Neutrophils # (Auto) 10.1 x10^3uL (1.8-7.7) Lymphocytes # (Auto) 0.6 x10^3/uL (1.0-4.8) Monocytes # (Auto) 1.1 x10^3/uL (0.0-1.1) Eosinophils # (Auto) 0.1 x10^3/uL (0.0-0.7) Basophils # (Auto) 0.0 x10^3/uL (0.0-0.2) Platelet Estimate Decreased (ADEQUATE) Polychromasia Slight Hypochromasia Slight Anisocytosis Slight Target Cells Occ Sodium Level 132 mmol/L (136-145) Potassium Level 4.3 mmol/L (3.5-5.1) Chloride Level 96 mmol/L (98-107) Carbon Dioxide Level 23 mmol/L (21-32) Anion Gap 13 (6-14) Blood Urea Nitrogen 43 mg/dL (7-20) Creatinine 4.8 mg/dL (0.6-1.0) Estimated GFR (Cockcroft-Gault) 9.2 BUN/Creatinine Ratio 9 (6-20) Glucose Level 205 mg/dL (70-99) Calcium Level 8.4 mg/dL (8.5-10.1) Total Bilirubin 3.3 mg/dL (0.2-1.0) Aspartate Amino Transf (AST/SGOT) 74 U/L (15-37) Alanine Aminotransferase (ALT/SGPT) 42 U/L (14-59) Alkaline Phosphatase 292 U/L (46-116) Total Protein 5.4 g/dL (6.4-8.2) Albumin 2.7 g/dL (3.4-5.0) Albumin/Globulin Ratio 1.0 (1.0-1.7) Glucose (Fingerstick) 169 mg/dL (70-99) Review All relevant outside records, renal labs, imaging studies, telemetry/EKG's were reviewed. DARLING SHORT MD Sep 25, 2018 11:21
[2018-09-25] MEDS ORDERED: LIDOCAINE WITH 8.4% SOD BICARB 3 ML DISP.SYRIN. IJ ONE (12:00)
[2018-09-25] MEDS ORDERED: ALBUMIN HUMAN 25% 100 ML IV ONE ×2 (12:00→13:15)
--- NOTE | 2018-09-25 13:58 | PDOC2 ---
PALLIATIVE CARE Palliative Care Note Palliative Care Consult requested by Dr. Gallegos to address goals of care. Medical Assessment per medical record; ESRD- On HD ROSELINE acevedo Luiz- Dr. Tracy Chronic Non compliance with OP dialysis, Frequent hospitalization Last HD on 09/22 while inpatient, didin't go for HD yesterday Currently No emergent Indication for HD, Tomorrow per schedule Chr Hypotension due to ESLD ? paracentesis Today per primary Pt should be on Palliative/Hospice care if not a candidate for Liver Transplant Hx of Dyspnea, / left pleural effusion, s/p left thoracentesis Currently stable resp status Chronic obstructive pulmonary disease. End-stage liver disease, cirrhosis../ DIAZ/NAFLD Ascites- gets Paracentesis Every week as OP Anemia- LUC per protocol Thrombocytopenia. 1330 Patient in IR for paracentesis. Will arrange meeting ALIVIA. Code Status; Full code. EDE HOLCOMB Sep 25, 2018 13:58
--- NOTE | 2018-09-25 15:43 | NUR ---
ALEXANDER consulted for dc planning. Chart reviewed and Pt is known to SW from previous admission. Palliative care consulted to address goals of care. SW attempted to reach out to pt's daughter but phone keeps ringing and unable to leave voice mail. ALEXANDER received a phone call from [facility] who reported facility was contacted by pt's insurance to admit pt from home but pt now is admitted at [facility]. ALEXANDER informed him ALEXANDER will contact family again to confirm dc plan. ALEXANDER will so await for Palliative care recommendation for dc planning.
--- NOTE | 2018-09-25 15:55 | PDOC2 ---
PALLIATIVE CARE Palliative Care Note Palliative Care Met with patient and daughter Marilin. Patient known to Palliative Care. Reviewed medical condition. Patient and daughter share that patient is followed up a [facility] every 3 months in Clinic for Liver Disease. Not on the transplant list--need to continue with dialysis; to get a sonogram. Patient is scheduled to return in November. Shared that patient fell at home a few weeks ago. Is followed by [facility]. Challenges in getting equipment. W/C etc. Goes to Dialysis in [place]. Recently unable to go because of her fall. Discussed Code Status; Requests Full Code Full Aggressive Care. Paracentesis today; 7.9 L Plan to return home with [facility]. EDE HOLCOMB Sep 25, 2018 15:54
--- NOTE | 2018-09-25 16:51 | RAD ---
Procedure: Ultrasound guided paracentesis Clinical Indication: 63-year-old with abdominal ascites Sedation: Local anesthesia only Antibiotics: None Fluoro Time: None Contrast: Not applicable Sterility: The procedure was performed in its entirety using appropriate elements of sterile technique. Consent: The procedure was explained in its entirety to the patient or the patients designated residential sales representative by a member of the treatment team, including a discussion of the risks, benefits and commonly accepted alternatives to the procedure, as well as the expected consequences of no therapy whatsoever. Discussion of the risks included, but was not limited to, those that are most frequent and those that are rare but possibly severe or life-threatening, as well as the possibility of unforeseen complications. Technique and Findings: Following informed consent, the patient was prepped and draped in the usual sterile fashion. Ultrasound interrogation of the abdomen revealed abdominal ascites. A hard copy ultrasound image was recorded. 1% Lidocaine was used to achieve local anesthesia over the area of interest, and a 6 [place] Haoj-H-Yaboyzmo catheter was advanced into the peritoneal cavity under ultrasound guidance. 7900 cc of thin yellow ascites was then withdrawn. The catheter was removed and hemostasis was achieved with manual compression. Complications: No immediate Impression: 1. Ultrasound-guided paracentesis as described
--- NOTE | 2018-09-25 17:23 | NUR ---
Wound Care: COnsult to eval and treat for multiple wounds. IAD to buttocks and periarea, intact. Pt soiled at time of assessment, cleaned, brief and linens changed. On P500 bed. Pt confused and not cooperative with position changes, able to turn independently, unable to educate about offloading. DFU areas to bilateral heels, and dorsal L foot. All cleansed, pictured, and measured (see detailed assessment). Skin prep and foam dressings applied for protection. Red, nonblanchable area to L groin, skin intact. Pictured and measured. No other open areas noted on head to toe assessment. Placed orange wound care recommendation sheett in room. Plan to follow up 10/03/18
[2018-09-25] MEDS: diphenhydrAMINE HCL 25 MG CAPSULE PO SCH ×2 (17:43→23:56)
[2018-09-25] MEDS: CALCIUM ACETATE 667 MG CAPSULE PO SCH (17:43)
[2018-09-25] MEDS: MIDODRINE 5 MG TABLET PO SCH (17:44)
[2018-09-25] MEDS ORDERED: ALBUTEROL SULFATE 2.5 MG/3 ML NEBU. NEB PRN (17:45)
[2018-09-25] MEDS ORDERED: DEXTROSE 50% 25 GM / 50ML DISP.SYRIN. IV PRN (17:45)
[2018-09-25] MEDS: INSULIN LISPRO 300 UNITS/3 ML INSULN.PEN. SQ SCH (17:51)
[2018-09-25] MEDS: LACTULOSE 20 GM/30 ML SOLUTION. PO SCH (21:00)
[2018-09-25] MEDS ORDERED: DARBEPOETIN ALFA 60 MCG/0.3 ML DISP.SYRIN. SQ SCH (21:00)
[2018-09-25] MEDS ORDERED: INSULIN GLARGINE 300 UNITS/3 ML INSULN.PEN. SQ SCH (21:00)
[2018-09-25] MEDS: CYCLOBENZAPRINE 10 MG TABLET. PO SCH (21:32)
[2018-09-25] MEDS: rifAXIMin 550 MG TABLET PO SCH (21:32)
[2018-09-26 03:00] VITALS: BP 83/40
[2018-09-26] MEDS ORDERED: LEVOTHYROXINE 150 MCG TABLET PO SCH (06:00)
[2018-09-26 07:00] VITALS: BP 102/56
[2018-09-26] MEDS ORDERED: NON FORMULARY ITEM (Insulin Aspart (Novolog Flexpen) 0 UNITS) SQ SCH (07:30)
[2018-09-26] MEDS ORDERED: PANTOPRAZOLE 40 MG TABLET.DR. PO SCH (07:30)
[2018-09-26] MEDS ORDERED: CALCIUM CARB/VIT D3 500/200 TABLET. PO SCH (08:00)
[2018-09-26] MEDS: LACTULOSE 20 GM/30 ML SOLUTION. PO SCH ×2 (09:00→14:00)
[2018-09-26] MEDS ORDERED: MULTIVITAMIN with MINERAL TABLET. PO SCH (09:00)
[2018-09-26] MEDS ORDERED: FLUTICASONE 50MCG/NASAL SPRAY 16GM BOTTLE. NS SCH (09:00)
[2018-09-26] MEDS ORDERED: FOLIC/VIT B COMP W-C (RENAL) TABLET. PO SCH (09:00)
[2018-09-26] MEDS ORDERED: ALBUTEROL SULFATE 8GM INHALER. IH SCH (09:00)
[2018-09-26] MEDS: CYCLOBENZAPRINE 10 MG TABLET. PO SCH ×2 (09:06→14:00)
[2018-09-26] MEDS: MIDODRINE 5 MG TABLET PO SCH ×2 (09:06→13:00)
[2018-09-26] MEDS: diphenhydrAMINE HCL 25 MG CAPSULE PO SCH ×2 (09:08→12:00)
[2018-09-26] MEDS: rifAXIMin 550 MG TABLET PO SCH (09:08)
[2018-09-26] MEDS: CALCIUM ACETATE 667 MG CAPSULE PO SCH ×2 (09:08→12:00)
[2018-09-26] MEDS: INSULIN LISPRO 300 UNITS/3 ML INSULN.PEN. SQ SCH ×2 (09:18→12:00)
[2018-09-26 09:19] LABS: BASO % 0 % (0-3); EOS # 0.1 x10^3/uL (0.0-0.7); EOS % 1 % (0-3); HEMATOCRIT 24.4 % (36.0-47.0); HEMOGLOBIN 7.9 g/dL (12.0-15.5); LYMPH # 0.4 x10^3/uL (1.0-4.8); LYMPH % 4 % (24-48); MEAN CORPUSCULAR HEMOGLOBIN 32 pg (25-35); MEAN CORPUSCULAR HGB CONC 32 g/dL (31-37); MEAN CORPUSCULAR VOLUME 98 fL (79-100); MONO # 0.8 x10^3/uL (0.0-1.1); MONO % 8 % (0-9); NEUT # 8.7 x10^3uL (1.8-7.7); NEUT % 86 % (31-73); PLATELET COUNT 80 x10^3/uL (140-400); RED BLOOD COUNT 2.48 x10^6/uL (3.50-5.40); RED CELL DISTRIBUTION WIDTH 21.7 % (11.5-14.5); WHITE BLOOD COUNT 10.1 x10^3/uL (4.0-11.0)
--- NOTE | 2018-09-26 09:21 | NUR ---
SW following pt. SW spoke with pt regarding insurance request to move pt to [facility]. Pt states she is aware of plan and agreeable. Pt agreeable with SW sending clinicals to [facility]. SW phoned and faxed clinicals to [facility], phone: [phone], fax: [phone]. ALEXANDER left a message with ALEXANDER Torres from [facility], regarding this. ALEXANDER also left a voice mail to pt's daughter, Marilin, . Discussed with RN and pt has HD today. Will continue to follow.
[2018-09-26 11:00] VITALS: BP 102/56
[2018-09-26 11:30] LABS: % BANDS 2 % (0-9); % EOS 1 % (0-5); % LYMPHS 5 % (24-48); % MONOS 4 % (0-10); % SEGS 88 % (35-66); ANISOCYTOSIS PRESENT; PLT ESTIMATE DECREASED (ADEQUATE)
--- NOTE | 2018-09-26 11:42 | PDOC ---
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 Medically ready to discharge once SNU bed ready Vitals Vitals Vital Signs Date Time Temp Pulse Resp B/P (MAP) Pulse Ox O2 Delivery O2 Flow Rate FiO2 09/26/18 09:06 91 102/56 09/26/18 07:00 98.4 18 92 Room Air 98.4 Physical Exam General: Alert, Oriented X3, Cooperative Heart: Regular rate, Normal S1, Normal S2 Lungs: Clear Abdomen: Normal bowel sounds, Soft, No tenderness, No hepatosplenomegaly, Other (moderate ascites) Extremities: No clubbing, No cyanosis Skin: No rashes, No breakdown, No significant lesion Labs LABS Laboratory Tests Test 09/25/18 11:48 09/25/18 16:40 09/25/18 19:54 09/26/18 07:14 Glucose (Fingerstick) 252 mg/dL (70-99) 251 mg/dL (70-99) 210 mg/dL (70-99) 256 mg/dL (70-99) Test 09/26/18 09:00 White Blood Count 10.1 x10^3/uL (4.0-11.0) Red Blood Count 2.48 x10^6/uL (3.50-5.40) Hemoglobin 7.9 g/dL (12.0-15.5) Hematocrit 24.4 % (36.0-47.0) Mean Corpuscular Volume 98 fL (79-100) Mean Corpuscular Hemoglobin 32 pg (25-35) Mean Corpuscular Hemoglobin Concent 32 g/dL (31-37) Red Cell Distribution Width 21.7 % (11.5-14.5) Platelet Count 80 x10^3/uL (140-400) Neutrophils (%) (Auto) 86 % (31-73) Lymphocytes (%) (Auto) 4 % (24-48) Monocytes (%) (Auto) 8 % (0-9) Eosinophils (%) (Auto) 1 % (0-3) Basophils (%) (Auto) 0 % (0-3) Neutrophils # (Auto) 8.7 x10^3uL (1.8-7.7) Lymphocytes # (Auto) 0.4 x10^3/uL (1.0-4.8) Monocytes # (Auto) 0.8 x10^3/uL (0.0-1.1) Eosinophils # (Auto) 0.1 x10^3/uL (0.0-0.7) Basophils # (Auto) 0.0 x10^3/uL (0.0-0.2) Segmented Neutrophils % 88 % (35-66) Band Neutrophils % 2 % (0-9) Lymphocytes % 5 % (24-48) Monocytes % 4 % (0-10) Eosinophils % 1 % (0-5) Platelet Estimate Decreased (ADEQUATE) Anisocytosis Present Macrocytosis Present Review of Systems Review of Systems A 14 point ROS was completed with the following noted as positive: Other systems reviewed and negative. \CONSTITUTIONAL: No fever or chills EYES: No recent changes SKIN: No rash or itching CARDIOVASCULAR: No chest pain, syncope, palpitations, or edema RESPIRATORY: No SOB or cough GASTROINTESTINAL: No nausea, vomiting or abdominal pain NEUROLOGICAL: No headaches or weakness ENDOCRINE: No cold or heat intolerance GENITOURINARY: No urgency or frequency of urination MUSCULOSKELETAL: No back pain or joint pain LYMPHATICS: No enlarged lymph nodes PSYCHIATRIC: No anxiety or depression Comment Review of Relevant I have reviewed the following items chante (where applicable) has been applied. Labs Laboratory Tests Test 09/25/18 03:10 09/25/18 07:46 09/25/18 11:48 09/25/18 16:40 White Blood Count 12.0 x10^3/uL (4.0-11.0) Red Blood Count 2.47 x10^6/uL (3.50-5.40) Hemoglobin 7.9 g/dL (12.0-15.5) Hematocrit 23.9 % (36.0-47.0) Mean Corpuscular Volume 97 fL (79-100) Mean Corpuscular Hemoglobin 32 pg (25-35) Mean Corpuscular Hemoglobin Concent 33 g/dL (31-37) Red Cell Distribution Width 21.8 % (11.5-14.5) Platelet Count 91 x10^3/uL (140-400) Neutrophils (%) (Auto) 84 % (31-73) Lymphocytes (%) (Auto) 5 % (24-48) Monocytes (%) (Auto) 10 % (0-9) Eosinophils (%) (Auto) 1 % (0-3) Basophils (%) (Auto) 0 % (0-3) Neutrophils # (Auto) 10.1 x10^3uL (1.8-7.7) Lymphocytes # (Auto) 0.6 x10^3/uL (1.0-4.8) Monocytes # (Auto) 1.1 x10^3/uL (0.0-1.1) Eosinophils # (Auto) 0.1 x10^3/uL (0.0-0.7) Basophils # (Auto) 0.0 x10^3/uL (0.0-0.2) Platelet Estimate Decreased (ADEQUATE) Polychromasia Slight Hypochromasia Slight Anisocytosis Slight Target Cells Occ Sodium Level 132 mmol/L (136-145) Potassium Level 4.3 mmol/L (3.5-5.1) Chloride Level 96 mmol/L (98-107) Carbon Dioxide Level 23 mmol/L (21-32) Anion Gap 13 (6-14) Blood Urea Nitrogen 43 mg/dL (7-20) Creatinine 4.8 mg/dL (0.6-1.0) Estimated GFR (Cockcroft-Gault) 9.2 BUN/Creatinine Ratio 9 (6-20) Glucose Level 205 mg/dL (70-99) Calcium Level 8.4 mg/dL (8.5-10.1) Total Bilirubin 3.3 mg/dL (0.2-1.0) Aspartate Amino Transf (AST/SGOT) 74 U/L (15-37) Alanine Aminotransferase (ALT/SGPT) 42 U/L (14-59) Alkaline Phosphatase 292 U/L (46-116) Total Protein 5.4 g/dL (6.4-8.2) Albumin 2.7 g/dL (3.4-5.0) Albumin/Globulin Ratio 1.0 (1.0-1.7) Glucose (Fingerstick) 169 mg/dL (70-99) 252 mg/dL (70-99) 251 mg/dL (70-99) Test 09/25/18 19:54 09/26/18 07:14 09/26/18 09:00 Glucose (Fingerstick) 210 mg/dL (70-99) 256 mg/dL (70-99) White Blood Count 10.1 x10^3/uL (4.0-11.0) Red Blood Count 2.48 x10^6/uL (3.50-5.40) Hemoglobin 7.9 g/dL (12.0-15.5) Hematocrit 24.4 % (36.0-47.0) Mean Corpuscular Volume 98 fL (79-100) Mean Corpuscular Hemoglobin 32 pg (25-35) Mean Corpuscular Hemoglobin Concent 32 g/dL (31-37) Red Cell Distribution Width 21.7 % (11.5-14.5) Platelet Count 80 x10^3/uL (140-400) Neutrophils (%) (Auto) 86 % (31-73) Lymphocytes (%) (Auto) 4 % (24-48) Monocytes (%) (Auto) 8 % (0-9) Eosinophils (%) (Auto) 1 % (0-3) Basophils (%) (Auto) 0 % (0-3) Neutrophils # (Auto) 8.7 x10^3uL (1.8-7.7) Lymphocytes # (Auto) 0.4 x10^3/uL (1.0-4.8) Monocytes # (Auto) 0.8 x10^3/uL (0.0-1.1) Eosinophils # (Auto) 0.1 x10^3/uL (0.0-0.7) Basophils # (Auto) 0.0 x10^3/uL (0.0-0.2) Segmented Neutrophils % 88 % (35-66) Band Neutrophils % 2 % (0-9) Lymphocytes % 5 % (24-48) Monocytes % 4 % (0-10) Eosinophils % 1 % (0-5) Platelet Estimate Decreased (ADEQUATE) Anisocytosis Present Macrocytosis Present Laboratory Tests Test 09/25/18 11:48 09/25/18 16:40 09/25/18 19:54 09/26/18 07:14 Glucose (Fingerstick) 252 mg/dL (70-99) 251 mg/dL (70-99) 210 mg/dL (70-99) 256 mg/dL (70-99) Test 09/26/18 09:00 White Blood Count 10.1 x10^3/uL (4.0-11.0) Red Blood Count 2.48 x10^6/uL (3.50-5.40) Hemoglobin 7.9 g/dL (12.0-15.5) Hematocrit 24.4 % (36.0-47.0) Mean Corpuscular Volume 98 fL (79-100) Mean Corpuscular Hemoglobin 32 pg (25-35) Mean Corpuscular Hemoglobin Concent 32 g/dL (31-37) Red Cell Distribution Width 21.7 % (11.5-14.5) Platelet Count 80 x10^3/uL (140-400) Neutrophils (%) (Auto) 86 % (31-73) Lymphocytes (%) (Auto) 4 % (24-48) Monocytes (%) (Auto) 8 % (0-9) Eosinophils (%) (Auto) 1 % (0-3) Basophils (%) (Auto) 0 % (0-3) Neutrophils # (Auto) 8.7 x10^3uL (1.8-7.7) Lymphocytes # (Auto) 0.4 x10^3/uL (1.0-4.8) Monocytes # (Auto) 0.8 x10^3/uL (0.0-1.1) Eosinophils # (Auto) 0.1 x10^3/uL (0.0-0.7) Basophils # (Auto) 0.0 x10^3/uL (0.0-0.2) Segmented Neutrophils % 88 % (35-66) Band Neutrophils % 2 % (0-9) Lymphocytes % 5 % (24-48) Monocytes % 4 % (0-10) Eosinophils % 1 % (0-5) Platelet Estimate Decreased (ADEQUATE) Anisocytosis Present Macrocytosis Present Medications Current Medications Darbepoetin Santana (ARANESP for DIALYSIS PTS) 60 mcg Th SQ Last administered on 09/25/18at 21:33; Start 09/25/18 at 21:00 Lidocaine/Sodium Bicarbonate (Buffered Lidocaine 1%) 3 ml 1X ONCE IJ Last administered on 09/25/18 12:00; Start 09/25/18 at 12:00; Stop 09/25/18 at 12:02; Status DC Albumin Human 100 ml @ 100 mls/hr 1X ONCE IV Last administered on 09/25/18at 12:00; Start 09/25/18 at 12:00; Stop 09/25/18 at 12:59; Status DC Albumin Human 100 ml @ 100 mls/hr 1X ONCE IV Last administered on 09/25/18at 2 1:31; Start 09/25/18 at 13:15; Stop 09/25/18 at 14:14; Status DC Diphenhydramine HCl (Benadryl) 25 mg Q6HRS PO Last administered on 09/26/18 09:08; Start 09/25/18 at 18:00 Lactulose (Lactulose) 20 gm TID PO ; Start 09/25/18 at 21:00 Rifaximin (Xifaxan) 550 mg BID PO Last administered on 09/26/18 09:08; Start 09/25/18 at 21:00 Albuterol Sulfate (Ventolin Neb Soln) 2.5 mg PRN Q6HRS PRN NEB SHORTNESS OF BREATH; Start 09/25/18 at 17:45 Calcium Acetate (Phoslo) 667 mg TIDWMEALS PO Last administered on 09/26/18 09 :08; Start 09/25/18 at 18:00 Cyclobenzaprine HCl (Flexeril) 5 mg TID PO Last administered on 09/26/18 09:06; Start 09/25/18 at 21:00 Vitamin B Complex/ Vitamin C (Tasia-Meliton) 1 tab DAILY PO Last administered on 09/26/18 09:07; Start 09/26/18 at 09:00 Levothyroxine Sodium (Synthroid) 300 mcg DAILY06 PO Last administered on 09/26/18 09:00; Start 09/26/18 at 06:00 Midodrine (Proamatine) 10 mg [id number] PO Last administered on 09/26/18 09:06; Start 09/25/18 at 18:00 Pantoprazole Sodium (Protonix) 40 mg DAILYAC PO Last administered on 09/26/18at 09:00; Start 09/26/18 at 07:30 Albuterol Sulfate (Ventolin Hfa) 2.5 puff DAILY IH ; Start 09/26/18 at 09:00; Status UNV Insulin Glargine (Lantus) 15 units HS SQ Last administered on 09/25/18at 21:59; Start 09/25/18 at 21:00 Non-Formulary Medication (Insulin Aspart (Novolog Flexpen)) TIDAC SQ ; Start 09/26/18 at 07:30; Status UNV Calcium/Vitamin D (Oscal D 500mg/ 200uts) 1 tab BIDWMEALS PO Last administered on 09/26/18at 09:07; Start 09/26/18 at 08:00 Fluticasone Propionate (Flonase) 2 spray DAILY NS Last administered on 09/26/18at 09:00; Start 09/26/18 at 09:00 Multivitamins (Thera M Plus) 1 tab DAILY PO ; Start 09/26/18 at 09:00; Status UNV Insulin Human Lispro (HumaLOG) 0-5 UNITS TIDWMEALS SQ Last administered on 09/26/18at 09:18; Start 09/25/18 at 18:00 Dextrose (Dextrose 50%-Water Syringe) 12.5 gm PRN Q15MIN PRN IV SEE COMMENTS; Start 09/25/18 at 17:45 Active Scripts Active Midodrine Hcl 5 Mg Tablet 10 Mg PO [id number] 14 Days Reported Benadryl (Diphenhydramine Hcl) 25 Mg Capsule 25 Mg PO Q6HRS Calcium Acetate 667 Mg Tablet 667 Mg PO TIDWMEALS Dialyvite Tablet (Folic Acid/Vitamin B Comp W-C) 1 Each Tablet 1 Each PO DAILY Cyclobenzaprine Hcl 5 Mg Tablet 1 Tab PO TID Omeprazole 40 Mg Capsule. 1 Cap PO DAILY Xifaxan (Rifaximin) 550 Mg Tablet 1 Tab PO BID Fusion Plus Capsule (Iron,Fum&Ps/Fa/Vit B&C#18/L.ca) 1 Each Capsule 1 Each PO Albuterol Sulfate Conc Neb Soln (Albuterol Sulfate) 2.5 Mg/0.5 Ml Vial.neb 2.5 Mg NEB Q6HRS PRN Lactulose 20 Gm/30 Ml Solution 20 Gm PO TID Lantus Solostar (Insulin Glargine,Hum.rec.anlog) 100 Unit/1 Ml Insuln.pen 0 SQ HS SSI Calcium + Vitamin D Tablet (Calcium Carbonate/Vitamin D3) 1 Each Tablet 1 Each PO Albuterol Sulfate Hfa Inhaler (Albuterol Sulfate) 8.5 Gm Hfa.aer.ad 8.5 Gm IH Novolog Flexpen (Insulin Aspart) 100 Unit/1 Ml Insuln.pen 0 SQ TIDAC ssi Synthroid (Levothyroxine Sodium) 25 Mcg Tablet 300 Mcg PO DAILY Flovent 110MCG Hfa (Fluticasone Propionate) 12 Gm Aer.w.adap 12 Gm IH Vitals/I & O Vital Sign - Last 24 Hours 09/25/18 09/25/18 09/25/18 09/25/18 12:20 12:30 12:40 12:50 Pulse 96 96 96 95 Resp 18 18 16 15 B/P (MAP) 100/57 (71) 78/50 (59) 95/51 (66) 95/35 (55) Pulse Ox 90 90 90 90 O2 Delivery Room Air Room Air Room Air Room Air 09/25/18 09/25/18 09/25/18 09/25/18 13:00 13:17 13:29 13:40 Pulse 98 93 91 90 Resp 15 B/P (MAP) 101/47 (65) 101/46 (64) 98/41 (60) 105/41 (62) Pulse Ox 100 92 93 95 O2 Delivery Room Air 09/25/18 09/25/18 09/25/18 09/25/18 15:00 17:44 19:00 20:00 Temp 98.9 98.8 98.9 98.8 Pulse 91 91 92 Resp 14 18 B/P (MAP) 75/20 (38) 75/20 83/33 (50) Pulse Ox 96 92 O2 Delivery Room Air Room Air Room Air 09/25/18 09/26/18 09/26/18 09/26/18 23:00 03:00 07:00 09:06 Temp 97.7 98.4 97.7 98.4 Pulse 91 91 91 Resp 18 18 B/P (MAP) 83/40 (54) 102/56 (71) 102/56 Pulse Ox 92 92 O2 Delivery Room Air Room Air Room Air Intake and Output 09/25/18 09/25/18 09/26/18 14:59 22:59 06:59 Intake Total 240 ml 360 ml Output Total 7900 ml Balance -7660 ml 360 ml ABE RIVER MD Sep 26, 2018 11:41
--- NOTE | 2018-09-26 11:45 | SNU/HH DC ---
DISCHARGE ORDERS DISCHARGE INFORMATION: DISCHARGE DATE: Sep 26, 2018 CONDITION ON DISCHARGE: Stable CODE STATUS: Code Status: Full USP: SNF STAY <30 DAYS: Yes HOSPICE: HOSPICE: No HOSPICE EVAL & TREAT: No POST DISCHARGE ORDERS: ACTIVITY ORDERS: Activity as tolerated WEIGHT BEARING STATUS: No restrictions, Full weight bearing, As tolerated BATHING ORDERS: Shower-keep dressing dry, No Tub Bath until see DIET AFTER DISCHARGE: hepatic/renal WOUND/INCISION CARE: Keep wound/cast CDI CHECKS AFTER DISCHARGE: CHECKS AFTER DISCHARGE: Check blood press - daily, Check blood sugar, ac/hs TREATMENT/EQUIPMENT ORDERS: ADAPTIVE EQUIPMENT NEEDED: Brace/splint Physical Therapy For: Evalulation/Treatment Occupational Therapy For: Evaluation/Treatment DISCHARGE MEDICATIONS: Home Meds Active Scripts Midodrine Hcl (MIDODRINE HCL) 5 Mg Tablet, 10 MG PO QPA485 for hypotension for 14 Days, #84 TAB Prov:TEDDY PERALES MD 09/10/18 Reported Medications Diphenhydramine Hcl (BENADRYL) 25 Mg Capsule, 25 MG PO Q6HRS for itching, CAP 08/12/18 Calcium Acetate (CALCIUM ACETATE) 667 Mg Tablet, 667 MG PO TIDWMEALS for DIALYSIS PATIENTS, CAP 07/03/18 Folic Acid/Vitamin B Comp W-C (DIALYVITE TABLET) 1 Each Tablet, 1 EACH PO DAILY for after dialysis on dialysis day, TAB 07/03/18 Cyclobenzaprine Hcl (CYCLOBENZAPRINE HCL) 5 Mg Tablet, 1 TAB PO TID for muscle spasms, #30 TAB 06/10/18 Omeprazole (OMEPRAZOLE) 40 Mg Capsule.dr, 1 CAP PO DAILY for gerd, #30 CAP 3 Refills 05/01/18 Rifaximin (XIFAXAN) 550 Mg Tablet, 1 TAB PO BID, #28 TAB 02/07/18 Iron,Fum&Ps/Fa/Vit B&C#18/L.ca (FUSION PLUS CAPSULE) 1 Each Capsule, 1 EACH PO, CAP 05/09/17 Albuterol Sulfate (ALBUTEROL SULFATE CONC NEB SOLN) 2.5 Mg/0.5 Ml Vial.neb, 2.5 MG NEB Q6HRS PRN for SHORTNESS OF BREATH, EACH 0 Refills 08/03/15 Lactulose (LACTULOSE) 20 Gm/30 Ml Solution, 20 GM PO TID 08/03/15 Insulin Glargine,Hum.rec.anlog (LANTUS SOLOSTAR) 100 Unit/1 Ml Insuln.pen, 0 SQ HS for DM SSI 06/10/13 Calcium Carbonate/Vitamin D3 (CALCIUM + VITAMIN D TABLET) 1 Each Tablet, 1 EACH PO 06/02/13 Albuterol Sulfate (ALBUTEROL SULFATE HFA INHALER) 8.5 Gm Hfa.aer.ad, 8.5 GM IH 06/02/13 Insulin Aspart (NOVOLOG FLEXPEN) 100 Unit/1 Ml Insuln.pen, 0 SQ TIDAC for DM ssi 06/02/13 Levothyroxine Sodium (SYNTHROID) 25 Mcg Tablet, 300 MCG PO DAILY 06/02/13 Fluticasone Propionate (FLOVENT 110MCG HFA) 12 Gm Aer.w.adap, 12 GM IH 06/02/13 ABE RIVER MD Sep 26, 2018 11:45
--- NOTE | 2018-09-26 13:51 | NUR ---
SW following pt. Pt has been accepted at [facility]. Orders faxed, OP HD schedule provided to facility and packet on chart. Pt will transport via facility arranged stretcher transport at 1830. Discussed with RN and pt's daughter, Marilin via phone.
[2018-09-26] MEDS ORDERED: IV NORMAL SALINE 1000ML BAG 1,000 ML IV PRN ×2 (14:29)
[2018-09-26] MEDS ORDERED: ALBUMIN HUMAN 25% 200 ML IV PRN (14:30)
[2018-09-26] MEDS ORDERED: DIALYSIS PATIENT. MC PRN ×2 (14:30)
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
[2018-09-26 19:00] VITALS: BP 86/37
--- NOTE | 2018-09-26 22:40 | NUR ---
Patient discharge Pt was discharge at approximately 2130, escort out by transportation team. Port-a-cath access was discontinued. Discharge teaching was reinforced, pt verbalized understanding. Pt's son was notified.
== END 2018-09-26 21:30 | DRG 441 ==
LOC: ER 02:10 → 5 NORTH 02:25
PROVIDERS: ADMIT Internal Medicine; ATTEND Internal Medicine
PROC: 5A1D70Z Performance of Urinary Filtration, Intermittent, Less than 6 Hours Per Day (ICD-10-PCS; principal; 2018-09-25)
PROC: 0W9G3ZZ Drainage of Peritoneal Cavity, Percutaneous Approach (ICD-10-PCS; 2018-09-25)
DX: K72.90 Hepatic failure, unspecified without coma (principal); N18.6 End stage renal disease; R18.8 Other ascites; I12.0 Hypertensive chronic kidney disease with stage 5 chronic kidney disease or end stage renal disease; K75.81 Nonalcoholic steatohepatitis (NASH); E11.40 Type 2 diabetes mellitus with diabetic neuropathy, unspecified; D64.9 Anemia, unspecified; I95.9 Hypotension, unspecified; E11.22 Type 2 diabetes mellitus with diabetic chronic kidney disease; M19.90 Unspecified osteoarthritis, unspecified site; K74.60 Unspecified cirrhosis of liver; E21.3 Hyperparathyroidism, unspecified; F32.9 Major depressive disorder, single episode, unspecified; F41.9 Anxiety disorder, unspecified; Z99.2 Dependence on renal dialysis; D63.1 Anemia in chronic kidney disease; E03.9 Hypothyroidism, unspecified; E78.5 Hyperlipidemia, unspecified; J44.9 Chronic obstructive pulmonary disease, unspecified; Z83.3 Family history of diabetes mellitus; Z90.710 Acquired absence of both cervix and uterus; Z91.19 Patient's noncompliance with other medical treatment and regimen; Z87.440 Personal history of urinary (tract) infections; Z88.2 Allergy status to sulfonamides
CPT/HCPCS: 36415; 49083; 80053; 82962; 85007; 85025; 87340; 99406; A4215; C1729; C1894; J0882; J1815; P9046; Q0163; 99285-25

== ENCOUNTER 2018-10-24 08:11 | Inpatient (IN) | payer MEDICAID ==
[~2018-10-24] VITALS: Ht 160 cm; Wt 71.7 kg
[2018-10-24] VITALS (27 sets, daily range): BP systolic 33–121; BP diastolic 33–70
[~2018-10-24 08:11] MED LIST changes: +ALBU2.5V8 NEB; +BENZ-8 PO; +CLOT10TR MM; +HYDR-2761 PO; +LEVO500T59 PO; +NYST15OI TP; +PANT40TA77 PO; +PHEN57OI RC
[2018-10-24] MEDS ORDERED: IV NORMAL SALINE 1000ML BAG 1,000 ML IV ONE (08:15)
--- NOTE | 2018-10-24 08:44 | RAD ---
CHEST AP ONLY Clinical Indication: Shortness of breath Comparison: 10/14/2018 portable chest x-ray exam. Findings: Portable upright frontal view chest was obtained. The patient is rotated and this may limit assessment. Left internal jugular dialysis catheter is overlying the right atrium. Right-sided internal jugular infusion port catheter terminates overlying the superior cavoatrial junction. Opacification of the left hemithorax is completely. Right lung field is unremarkable other than pulmonary interstitial edema and/or a small right pleural effusion. No pneumothorax. Large left pleural effusion noted. IMPRESSION: Interval complete opacification increase in left pleural effusion. Opacification of the left hemithorax which presumably represents increase left pleural effusion and associated atelectasis and/or infiltrate. Small right pleural effusion. Electronically signed by: Salomon Tomas MD (10/24/2018 8:41 AM) [facility]
[2018-10-24] MEDS ORDERED: LIDOCAINE WITH 8.4% SOD BICARB 3 ML DISP.SYRIN. IJ ONE (09:30)
[2018-10-24] MEDS ORDERED: ALBUMIN HUMAN 25% 100 ML IV ONE ×5 (09:30→15:30)
--- NOTE | 2018-10-24 09:30 | EKG ---
[facility] [address] [place] [address] Test Date: 2018-10-24 Test Time: 08:26:37 Pat Name: YANIRA BRAVO Department: Room: Gender: F Log Snaker: : [id number] Requested By: FERNANDO PAULINO Order Number: [id number] Reading MD: Measurements Intervals [place] Rate: 98 P: 90 NM: 148 QRS: 54 QRSD: 64 T: 0 QT: 366 QTc: 469 Interpretive Statements SINUS RHYTHM COMPLEX(ES) WITH ABERRANT INTRAVENTRICULAR CONDUCTION LOW VOLTAGE QRS(T) CONTOUR ABNORMALITY CANNOT RULE OUT ANTEROSEPTAL MYOCARDIAL DAMAGE ABNORMAL ECG No previous ECG available for comparison
--- NOTE | 2018-10-24 10:30 | RAD ---
Chest radiograph 10/24/2018 10:05 AM INDICATION: Shortness of air, chest tube COMPARISON: October 24, 2018 at 0806 hours TECHNIQUE: Supine frontal view of the chest is provided. FINDINGS: The cardiomediastinal silhouette is similar in appearance. There is improved aeration of the left lung status post placement of left basilar pigtail catheter. Left chest wall double lumen catheter and right chest wall infusion port catheter are in similar position. There is persistent atelectasis of the lingula and left lower lobe. Moderate pleural effusion persists. Right lung appears relatively clear. No definite pneumothorax. IMPRESSION: Status post placement of left basilar thoracostomy tube with improved aeration of the left lung and persistent moderate left pleural effusion and atelectasis of the lingula and left lower lobe. No definite pneumothorax. Electronically signed by: Corina Abbott MD (10/24/2018 10:27 AM) [id number]
[2018-10-24 10:32] LABS: BASO % 0 % (0-3); EOS % 0 % (0-3); HEMATOCRIT 23.5 % (36.0-47.0); HEMOGLOBIN 7.6 g/dL (12.0-15.5); LYMPH # 0.4 x10^3/uL (1.0-4.8); LYMPH % 3 % (24-48); MEAN CORPUSCULAR HEMOGLOBIN 32 pg (25-35); MEAN CORPUSCULAR HGB CONC 33 g/dL (31-37); MEAN CORPUSCULAR VOLUME 99 fL (79-100); MONO # 1.1 x10^3/uL (0.0-1.1); MONO % 9 % (0-9); NEUT # 10.7 x10^3uL (1.8-7.7); NEUT % 88 % (31-73); PLATELET COUNT 139 x10^3/uL (140-400); RED BLOOD COUNT 2.37 x10^6/uL (3.50-5.40); RED CELL DISTRIBUTION WIDTH 18.5 % (11.5-14.5); WHITE BLOOD COUNT 12.2 x10^3/uL (4.0-11.0)
[2018-10-24 10:37] LABS: BASE EXCESS ABG -6 mmol/L (-3-3); HCO3 ABG 20 mmol/L (21-28); PCO2 ABG 45 mmHg (35-46); PO2 ABG 85 mmHg (65-108); SAT O2 ABG 93 % (92-99)
[2018-10-24 10:40] LABS: BF CLARITY HAZY; BF COLOR YELLOW; BF MON % 74 %; BF PMN % 26 %; BF RBC COUNT 8301 /cmm (Not Established); BF SOURCE PERITONEAL; BF WBC COUNT 127 /cmm (Not Established)
[2018-10-24 10:45] LABS: CALCIUM 8.5 mg/dL (8.5-10.1); CREATININE 4.7 mg/dL (0.6-1.0); GFR 9.4; POTASSIUM 4.1 mmol/L (3.5-5.1)
[2018-10-24 10:48] LABS: FIO2 ABG 28% PT ON 2LN.C.
[2018-10-24 10:50] LABS: ALBUMIN 2.6 g/dL (3.4-5.0); ALBUMIN/GLOBULIN RATIO 0.8 (1.0-1.7); TOTAL BILIRUBIN 1.8 mg/dL (0.2-1.0)
[2018-10-24] MEDS ORDERED: fentaNYL PF VIAL 100 MCG/2 ML VIAL IV ONE (11:00)
--- NOTE | 2018-10-24 11:28 | PHYS DOC ---
Past Medical History Past Medical History: COPD, Diabetes-Type II, Liver Disease, Renal Disease, Renal Failure, Other Additional Past Medical Histor: neuropathy,gallstones,non etoh cirossis Past Surgical History: Hysterectomy, Other Additional Past Surgical Histo: esophogeal banding after esoph. varacies. PORT PLACEMENT R CHEST Alcohol Use: None Drug Use: None Adult General Chief Complaint Chief Complaint: ABDOMINAL PAIN HPI HPI Patient is a 63 year old female with history of end-stage renal disease (currently dialyzing, Saturday, Saturday) and alcoholic cirrhosis with ascites who presents with shortness of breath, and hypotension. Reports dyspnea at rest. Denies chest pain. EMS states initial systolic blood pressure was 60s. Patient states she last dialyzed Saturday and was scheduled for paracentesis this morning and dialysis later today. P Patient states she did not get out of bed contacted EMS.atient states she has not eaten since last night when she took her insulin. Patient denies fever chills, sweats. Also reports diffuse abdominal pain. No nausea vomiting. No diarrhea. Makes minimal urine. No other acute symptoms or complaints. [] Review of Systems Review of Systems ROS as per HPI All other systems were reviewed and found to be within normal limits, except as documented in this note. Current Medications Current Medications Current Medications Medications (Trade) Dose Ordered Sig/Emanuel Start Time Stop Time Status Last Admin Dose Admin Albumin Human 100 ml @ 100 mls/hr 1X ONCE 10/24/18 09:30 10/24/18 10:29 DC 10/24/18 09:20 100 MLS/HR Lidocaine/Sodium Bicarbonate (Buffered Lidocaine 1%) 12 ml 1X ONCE 10/24/18 09:30 10/24/18 09:31 DC 10/24/18 09:30 12 ML Sodium Chloride 1,000 ml @ 1,000 mls/hr 1X ONCE 10/24/18 08:15 10/24/18 09:14 DC 10/24/18 10:00 1,000 MLS/HR Allergies Allergies Allergies Coded Allergies Type Severity Reaction Last Updated Verified Sulfa (Sulfonamide Antibiotics) Allergy Severe Swelling 04/24/18 Yes cephalexin Allergy Severe Anaphylaxis 05/22/18 Yes doxycycline Allergy Intermediate 04/24/18 Yes gabapentin Allergy Intermediate Anxiety 06/04/18 Yes insulin detemir Allergy Intermediate Rash 04/24/18 Yes morphine Allergy Intermediate rash 04/24/18 Yes niacin Allergy Intermediate Rash 04/24/18 Yes oxycodone Allergy Intermediate rash 04/24/18 Yes povidone-iodine Allergy Intermediate It 04/24/18 Yes tramadol Allergy Intermediate Rash 04/24/18 Yes I S O L A T I O N *CONTACT* Allergy Unknown 04/24/18 Yes codeine Adverse Reaction Intermediate Nausea and Vomiting 04/24/18 Yes erythromycin base Adverse Reaction Intermediate Diarrhea 04/24/18 Yes Physical Exam Physical Exam Constitutional: Well developed, well nourished, chronically ill-appearing.. [] HENT: Normocephalic, atraumatic, bilateral external ears normal, oropharynx moist, nose normal. [] Eyes: PERRLA, EOMI, conjunctiva normal. [] Neck: Normal range of motion. [] Cardiovascular:Heart rate regular rhythm, no murmur [] Lungs & Thorax: Patient's labored, tachypnea, diminished breath sounds bilaterally more pronounced on left,.[] Abdomen: Bowel sounds normal, soft, ascites. [] Skin: Warm, dry, no erythema, no rash. [] Back: No tenderness. [] Extremities: No tenderness, no cyanosis, no clubbing, ROM intact, no edema. [] Neurologic: Alert and oriented X 3, normal motor function, normal sensory function, no focal deficits noted. [] Psychologic: Affect normal, judgement normal, mood normal. [] Current Patient Data Vital Signs Vital Signs Date Time Temp Pulse Resp B/P (MAP) Pulse Ox O2 Delivery O2 Flow Rate FiO2 10/24/18 10:30 Nasal Cannula 2.0 10/24/18 09:33 95 26 96/45 (62) 91 10/24/18 08:11 97.6 97.6 Lab Values Laboratory Tests Test 10/24/18 08:15 10/24/18 08:27 10/24/18 08:55 10/24/18 10:16 O2 Saturation 93 % (92-99) Arterial Blood pH 7.28 (7.35-7.45) L Arterial Blood pCO2 at Patient Temp 45 mmHg (35-46) Arterial Blood pO2 at Patient Temp 85 mmHg (65-108) Arterial Blood HCO3 20 mmol/L (21-28) L Arterial Blood Base Excess -6 mmol/L (-3-3) L FiO2 28% pt on 2ln.c. Glucose (Fingerstick) 251 mg/dL (70-99) H Body Fluid Source Peritoneal Body Fluid Color Yellow Body Fluid Clarity Hazy Body Fluid Nucleated Cells 127 /cmm (Not Established) Body Fluid Mononuclear WBCs (%) 74 % Body Fluid Polymorphonuclear Cells 26 % Body Fluid Total RBCs Counted 8301 /cmm (Not Established) White Blood Count 12.2 x10^3/uL (4.0-11.0) H Red Blood Count 2.37 x10^6/uL (3.50-5.40) L Hemoglobin 7.6 g/dL (12.0-15.5) L Hematocrit 23.5 % (36.0-47.0) L Mean Corpuscular Volume 99 fL (79-100) Mean Corpuscular Hemoglobin 32 pg (25-35) Mean Corpuscular Hemoglobin Concent 33 g/dL (31-37) Red Cell Distribution Width 18.5 % (11.5-14.5) H Platelet Count 139 x10^3/uL (140-400) L Neutrophils (%) (Auto) 88 % (31-73) H Lymphocytes (%) (Auto) 3 % (24-48) L Monocytes (%) (Auto) 9 % (0-9) Eosinophils (%) (Auto) 0 % (0-3) Basophils (%) (Auto) 0 % (0-3) Neutrophils # (Auto) 10.7 x10^3uL (1.8-7.7) H Lymphocytes # (Auto) 0.4 x10^3/uL (1.0-4.8) L Monocytes # (Auto) 1.1 x10^3/uL (0.0-1.1) Eosinophils # (Auto) 0.0 x10^3/uL (0.0-0.7) Basophils # (Auto) 0.0 x10^3/uL (0.0-0.2) Platelet Estimate Pending Prothrombin Time 20.0 SEC (11.7-14.0) H Prothrombin Time INR 1.7 (0.8-1.1) H PTT 34 SEC (24-38) Sodium Level 135 mmol/L (136-145) L Potassium Level 4.1 mmol/L (3.5-5.1) Chloride Level 99 mmol/L (98-107) Carbon Dioxide Level 24 mmol/L (21-32) Anion Gap 12 (6-14) Blood Urea Nitrogen 48 mg/dL (7-20) H Creatinine 4.7 mg/dL (0.6-1.0) H Estimated GFR (Cockcroft-Gault) 9.4 BUN/Creatinine Ratio 10 (6-20) Glucose Level 285 mg/dL (70-99) H Lactic Acid Level 3.6 mmol/L (0.4-2.0) H Calcium Level 8.5 mg/dL (8.5-10.1) Total Bilirubin 1.8 mg/dL (0.2-1.0) H Aspartate Amino Transferase (AST) 30 U/L (15-37) Alanine Aminotransferase (ALT) 21 U/L (14-59) Alkaline Phosphatase 211 U/L (46-116) H Troponin I Quantitative 0.042 ng/mL (0.000-0.055) XD-Nvt-U-Type Natriuretic Peptide 4024 pg/mL (0-124) H Total Protein 6.0 g/dL (6.4-8.2) L Albumin 2.6 g/dL (3.4-5.0) L Albumin/Globulin Ratio 0.8 (1.0-1.7) L Laboratory Tests 10/24/18 10:16 Laboratory Tests 10/24/18 10:16 EKG EKG [EKG: reviewed] Radiology/Procedures Radiology/Procedures [CXR: Large left pleural effusion Chest x-ray: Improved aeration of left lung, post chest catheter placement.] Course & Med Decision Making Course & Med Decision Making Pertinent Labs and Imaging studies reviewed. (See chart for details) [Medically complex patient. Dyspnea likely multifactorial relating to ascites and also large left pleural effusion. Paracentesis and thoracentesis with chest tube performed by interventional radiology with improved respiratory status. Patient hypotensive following procedure due to large volume of fluid removed. She also noted to have auditory/metabolic acidosis. Patient also noted to to have mild leukocytosis elevation of lactic acidosis. Single dose of antibiotic given. Blood pressure improved with treatment. Dr. Guillen in ED for pulmonary/CC consult. ] Dragon Disclaimer Dragon Disclaimer This electronic medical record was generated, in whole or in part, using a voice recognition dictation system. Departure Departure Impression: Primary Impression: Pleural effusion Additional Impressions: Ascites Hypotension Disposition: ADMITTED INPATIENT Condition: STABLE Referrals: VIANEY VU DO (PCP) Problem Qualifiers FERNANDO PAULINO DO Oct 24, 2018 11:28
[2018-10-24] MEDS ORDERED: PIP/TAZO PER PHARMACY MC PRN ×2 (11:30→12:00)
[2018-10-24] MEDS ORDERED: ONDANSETRON PF 4 MG/2 ML VIAL. IV PRN (11:45)
[2018-10-24] MEDS: PIPERACILLIN/TAZOBACTAM 2.25 GM in IV NORMAL SALINE 50ML 50 ML IV SCH ×2 (12:20→22:03)
--- NOTE | 2018-10-24 12:42 | CONS ---
DATE OF CONSULTATION: PULMONARY CONSULTATION ATTENDING PHYSICIAN: Dr. Lord. REASON FOR CONSULTATION: Respiratory failure. HISTORY OF PRESENT ILLNESS: The patient is a 63-year-old female who has history of end-stage renal disease, on hemodialysis. She also has history of end-stage liver disease related to nonalcoholic fatty liver. The patient has history of multiple thoracentesis and paracentesis. Her last admission was in September. She presented to the hospital with increased dyspnea. She had no chest pain. EMS stated that initial systolic blood pressure was in the 60s. She was last dialyzed on Saturday. She was scheduled for paracentesis this morning as an outpatient with dialysis later. However, the patient called EMS as she did not eat since last night and also took her insulin. The patient was having increased abdominal pain on admission. She had a chest x-ray, which showed complete whiteout left lung. The patient was referred from the Emergency Room to the interventional radiologist for paracentesis. Then, she underwent chest tube placement as well. Her chest x-ray shown improving aeration on the left lung. By the time I saw the patient, she had received 50 mcg of fentanyl and she was dozing off in between conversation. I was unable to obtain much history from the patient. I have reviewed the chart and the labs and the x-rays. PAST MEDICAL HISTORY: History of COPD, history of type 2 diabetes, history of end-stage liver disease related to nonalcoholic fatty liver. History of end-stage renal disease, on hemodialysis; history of cirrhosis; history of hypertension; hyperlipidemia; history of COPD with tobacco dependence; history of recurrent pleural effusion with multiple thoracentesis and paracentesis. History of anxiety, depression, osteoporosis, diabetes, hypothyroidism and hypoparathyroidism. PAST SURGICAL HISTORY: Cataract removal, tonsillectomy and hysterectomy and multiple thoracentesis and paracentesis. FAMILY HISTORY: Hyperlipidemia and hypertension. SOCIAL HISTORY: Has long history of tobacco use. SYSTEM REVIEW: Unable to obtain from the patient due to her encephalopathy, due to fentanyl. PHYSICAL EXAMINATION: VITAL SIGNS: Reviewed. Her systolic blood pressure was in the 90s. Pulse ox 91% on 2 liters now. HEENT: Sclerae nonicteric. NECK: Supple. LUNGS: Diminished breath sounds in the left base. CARDIOVASCULAR: Regular rate. ABDOMEN: Soft, tender. EXTREMITIES: With ecchymosis and trace pitting edema. LABORATORY DATA: Reviewed. White cell count 12.2, hemoglobin 7.6 and platelets are 139. BUN 48 and creatinine 4.7. Albumin 2.6. INR 1.7. IMPRESSION: 1. [id number] hypoxic respiratory failure secondary to worsening left-sided pleural effusion, likely transudative in etiology. She had multiple thoracenteses in the past, which were transudate. 2. History of end-stage liver disease/cirrhosis related to nonalcoholic fatty liver. Has required multiple paracentesis and underwent another paracentesis today. 3. End-stage renal disease, on hemodialysis. 4. Chronic obstructive pulmonary disease. 5. Mild reactive leukocytosis. 6. Moderate protein-calorie malnutrition. 7. Coagulopathy secondary to cirrhosis. RECOMMENDATIONS: 1. Continue with present nasal cannula. 2. Continue with present chest tube and monitor chest tube output. We will also review analysis to rule out any infectious etiology, which seems clinically less likely. 3. Follow GI recommendations regarding her recurrent ascites. 4. Follow renal recommendation. 5. Agree with empiric antibiotics for now until pleural fluid cultures are back. 6. Continue present oxygen. 7. Bronchodilators. 8. We will follow along with you. 9. Monitor blood pressure closely. 10. Discussed with ER physician. Discussed with RN. Critical care time 35 minutes. CRISTIAN AGUIRRE MD DR: ISAMAR/nts JOB#: [id number] / [id number]
[2018-10-24] MEDS: IPRATRPIUM/ALBUTEROL 0.5/2.5MG 3 ML NEBU. NEB SCH ×3 (12:48→19:42)
[2018-10-24 13:13] LABS: % BANDS 1 % (0-9); % LYMPHS 4 % (24-48); % MONOS 1 % (0-10); % SEGS 94 % (35-66); PLT ESTIMATE ADEQUATE (ADEQUATE)
[2018-10-24 13:14] LABS: ANISOCYTOSIS PRESENT; POLYCHROMASIA PRESENT
[2018-10-24] MEDS ORDERED: IV NORMAL SALINE 500ML BAG 500 ML IV ONE (13:30)
--- NOTE | 2018-10-24 14:08 | HP ---
ADMIT DATE: 10/24/2018 CHIEF COMPLAINT: Respiratory failure. HISTORY OF PRESENT ILLNESS: The patient is a pleasant 63-year-old female who has end-stage DIAZ syndrome. Basically, she suffers from severe ascites and now has developed a severe left pleural effusion. While in the ER, she was taken to Interventional Radiology emergently. They drained that. She now has a chest tube. The patient is critically ill, now been admitted to the ICU. It should be noted that she tried taking her home meds to help with her shortness of breath, but that did not seem to work. Her blood pressure was also low on arrival with pressures into the 60s systolically. PAST MEDICAL HISTORY: COPD, end-stage liver disease, DIAZ syndrome, end-stage renal disease and she is on dialysis, cirrhosis, hypertension, hyperlipidemia, tobacco abuse, recurrent pleural effusions, recurrent ascites with multiple thoracentesis and multiple paracentesis, hypothyroidism, hypoparathyroidism, cataract removal, tonsillectomy, hysterectomy. ALLERGIES: None. FAMILY HISTORY: Hyperlipidemia and hypertension. SOCIAL HISTORY: She quit smoking. She does not drink or take drugs. She lives at home alone. MEDICATIONS: Reviewed, please refer to the [facility]. REVIEW OF SYSTEMS: Unable to obtain. The patient is sedated after her procedures. PHYSICAL EXAMINATION: VITAL SIGNS: Temperature is afebrile, pulse 100, respirations 20, blood pressure 102/64. GENERAL: She is sleeping in the ICU. HEART: Distant S1, S2. LUNGS: Diminished on the left, but she does have some air flow. She has a left chest tube. ABDOMEN: Soft, distended with a lot of ascites, which is her baseline. EXTREMITIES: 2+ edema. Pedal pulses are intact. ENDOCRINE: No thyromegaly. LYMPHATICS: No cervical chain or axillary nodes were noted. HEMATOPOIETIC: No bruising was noted, but she does have poor capillary refill. VASCULAR: Poor capillary refill. LABORATORY DATA: Pending. ASSESSMENT AND PLAN: Acute on chronic respiratory failure secondary to massive pleural effusion, secondary to end-stage liver disease with massive amount of ascites and overall fluid overload with intravascular volume depletion and hypotension. She is critically ill. She is in the ICU. We are going to have to consult Pulmonary Medicine. They have seen her already. We could certainly agree and appreciate Dr. Guillen's input. O2 per nasal cannula. Empiric IV Zosyn. Consult GI. DVT prophylaxis, DuoNebs q. 4, frequent labs. I believe she still wants to be full code. TOTAL TIME: 32 minutes. SULTANA HERNANDES DO DR: DONAL/rebeka JOB#: [id number] / [id number]
--- NOTE | 2018-10-24 14:45 | CONS ---
DATE OF CONSULTATION: 10/24/2018 REQUESTING PHYSICIAN: Hospitalist. REASON FOR CONSULTATION: Renal failure. HISTORY OF PRESENT ILLNESS: A 63-year-old female with history of diabetes mellitus and end-stage renal disease, hemodialysis dependent. The patient is currently admitted after having only had half of a dialysis treatment on the Saturday prior to this admission on Saturday. She presents now with respiratory compromise. She was found to have pleural effusions and has undergone thoracentesis and chest tube placement. She will need ongoing dialysis. PAST MEDICAL HISTORY: Diabetes mellitus, hypertension, end-stage renal disease, hemodialysis dependent, Saturday, Saturday and Saturday; COPD, nonalcoholic fatty liver with cirrhosis, hyperlipidemia, recurrent pleural effusions and ascites, depression, anxiety, osteoporosis, hypothyroidism, hyperparathyroidism, renal disease, anemia of chronic kidney disease, cataract extractions, tonsillectomy, hysterectomy, vascular access placement. ALLERGIES: SULFA, CEPHALEXIN, CODEINE, DOXYCYCLINE, ERYTHROMYCIN, GABAPENTIN, INSULIN DETEMIR, MORPHINE, NIACIN, OXYCODONE, IODINE, IV CONTRAST, TRAMADOL. MEDICATIONS: Reviewed per med list. FAMILY HISTORY: Noncontributory. SOCIAL HISTORY: The patient resides with assistance. REVIEW OF SYSTEMS: GENERAL: The patient awakens, not engaging. HEENT: Sallow complexion, otherwise clear. NECK: No increased JVD. No thyromegaly, mass or adenopathy. LUNGS: Decreased breath sound at bases. CARDIAC: Without S3 or rub. ABDOMEN: Soft with no bruits. EXTREMITIES: Without edema. NEUROPSYCHIATRIC: Somnolent, awakens, not engaging. LABORATORY DATA: Hemoglobin 7.6, hematocrit 23.5, white count 12.2. Sodium 135, potassium 4.1, chloride 99, CO2 of 24, BUN 48, creatinine 4.7, GFR is 9.4. IMPRESSION: 1. End-stage renal disease secondary to diabetic nephropathy. 2. Recurring pleural effusions and ascites. 3. Anemia of chronic kidney disease. RECOMMENDATIONS: 1. Ongoing dialysis, Saturday, Saturday and Saturday. However, post-thoracentesis today, we will plan to hold dialysis until tomorrow. 2. Epogen for anemia of chronic kidney disease. LAWRENCE WAKEFIELD MD DR: JUAN CARLOS/rebeka JOB#: [id number] / [id number]
--- NOTE | 2018-10-24 14:59 | RAD ---
Chest radiograph 10/24/2018 1:55 PM INDICATION: Chest tube COMPARISON: October 24, 2018 TECHNIQUE: Portable frontal semi-upright view of the chest is provided. FINDINGS: The cardiomediastinal silhouette is similar in appearance. There is worsened aeration of the left lung with increase in patchy alveolar airspace consolidation. Similar appearance of moderate left pleural effusion. No definite pneumothorax. Right chest wall infusion port catheter, left chest wall dialysis catheter and left basilar thoracostomy tube appear in similar position. IMPRESSION: Worsened aeration of the left upper lobe with worsening alveolar airspace disease. There is similar degree of pleural fluid with similar position of left basilar thoracostomy tube. Electronically signed by: Corina Abbott MD (10/24/2018 2:56 PM) [id number]
--- NOTE | 2018-10-24 15:11 | NUR ---
Pt admitted to room 103 from the ER. Pt very sleepy, does arouse to questions and stimulation. CT to Left back flank, dressing in intact, draining yellow drainage. Pt coughing up sputum at times, yellow in color. SBP in the 70-80's. Dr Lord and Neymar notified and orders received. Son in to see patient. Personal belongings cell phone and eye glasses brought in for patient. WOUNDS: Right heel old wound noted. 0.2x0.2 non open dark area on callous area.
--- NOTE | 2018-10-24 15:14 | NUR ---
Rehab screen completed. Pt has received PT/OT during past admissions and would benefit from PT/OT eval and treat. Please order if pt appropriate for therapy services. Addendum: 10/24/18 at 1515 by BO GONZALEZ PT Amended: Links added.
--- NOTE | 2018-10-24 16:32 | RAD ---
Ultrasound-guided paracentesis 10/24/2018 Procedure: The risks and benefits of the procedure were discussed the patient. Informed consent was obtained. A timeout procedure was performed. Sonographic evaluation of the abdomen was performed demonstrating ascites . The left lower quadrant was prepped and draped using maximum sterile barrier technique. 1% lidocaine without epinephrine was administered for local anesthesia. Real-time ultrasonographic guidance was used in passing a 5 Thai Yueh catheter into the fluid collection. This is exchanged for an 8 Thai drainage catheter. 10 L serous ascites was removed. The catheter was removed and pressure held to achieve hemostasis. A sterile dressing was applied. Impression: Successful ultrasound-guided paracentesis
--- NOTE | 2018-10-24 16:33 | RAD ---
Left thoracostomy tube placement ultrasound-guided Indication: Recurrent symptomatic large left pleural effusion Procedure: Informed consent was obtained. A timeout procedure was performed. Sonographic evaluation of the left chest was performed demonstrating a large pleural effusion. The left posterior chest was prepped and draped in sterile fashion. 1% lidocaine without epinephrine was administered for local anesthesia. Real-time ultrasonographic guidance was used in passing a 5 Japanese Yueh catheter into the left pleural space. This is exchanged over a guidewire for a 10 Japanese drainage catheter. Catheter was connected to Pleur-evac device@-20 cm water. Sterile dressings were applied. No immediate complications were identified. Impression: Left thoracostomy tube placement
[2018-10-24] MEDS: NOREPINEPHRIN 8MG/250ML PREMIX 250 ML IV PRN (16:44)
[2018-10-24] MEDS ORDERED: fentaNYL PF VIAL 100 MCG/2 ML VIAL IV PRN (17:00)
[2018-10-24] MEDS ORDERED: MIDODRINE HCL 10 MG PO SCH (18:00)
[2018-10-24] MEDS: BUDESONIDE 0.5 MG/2 ML NEBU. NEB SCH (19:42)
[2018-10-24] MEDS: LACTULOSE 20 GM/30 ML SOLUTION. PO SCH (21:00)
[2018-10-25] VITALS (45 sets, daily range): BP systolic 44–137; BP diastolic 28–86
[2018-10-25] MEDS: PIPERACILLIN/TAZOBACTAM 2.25 GM in IV NORMAL SALINE 50ML 50 ML IV SCH ×3 (05:09→21:00)
[2018-10-25 06:05] LABS: HEMATOCRIT 30.3 % (36.0-47.0); HEMOGLOBIN 10.2 g/dL (12.0-15.5); RED BLOOD COUNT 3.22 x10^6/uL (3.50-5.40); RED CELL DISTRIBUTION WIDTH 19.3 % (11.5-14.5); WHITE BLOOD COUNT 13.4 x10^3/uL (4.0-11.0)
--- NOTE | 2018-10-25 06:08 | PDOC ---
PULMONARY PROGRESS NOTES Subjective on 02 3lpm, on levo, is tired, sob better, has occ cough Vitals Vital Signs Date Time Temp Pulse Resp B/P (MAP) Pulse Ox O2 Delivery O2 Flow Rate FiO2 10/25/18 05:01 87 21 95/50 (65) 97 Nasal Cannula 2.0 10/25/18 04:00 97.7 97.7 Comments ros as mentioned as above other sys otherwise neg General: Alert HEENT: Other (nc at perrl nose throat clear neck no lad, no thyromegaly) Lungs: Crackles, Other (l ct) Cardiovascular: S1, S2 Abdomen: Soft, Non-tender, Other Neuro Exam: Alert Extremities: No Edema, Other Skin: Warm Labs Laboratory Tests Test 10/24/18 08:15 10/24/18 08:27 10/24/18 08:55 10/24/18 10:16 O2 Saturation 93 % (92-99) Arterial Blood pH 7.28 (7.35-7.45) Arterial Blood pCO2 at Patient Temp 45 mmHg (35-46) Arterial Blood pO2 at Patient Temp 85 mmHg (65-108) Arterial Blood HCO3 20 mmol/L (21-28) Arterial Blood Base Excess -6 mmol/L (-3-3) FiO2 28% pt on 2ln.c. Glucose (Fingerstick) 251 mg/dL (70-99) Body Fluid Source Peritoneal Body Fluid Color Yellow Body Fluid Clarity Hazy Body Fluid Nucleated Cells 127 /cmm (Not Established) Body Fluid Mononuclear WBCs (%) 74 % Body Fluid Polymorphonuclear Cells 26 % Body Fluid Total RBCs Counted 8301 /cmm (Not Established) White Blood Count 12.2 x10^3/uL (4.0-11.0) Red Blood Count 2.37 x10^6/uL (3.50-5.40) Hemoglobin 7.6 g/dL (12.0-15.5) Hematocrit 23.5 % (36.0-47.0) Mean Corpuscular Volume 99 fL (79-100) Mean Corpuscular Hemoglobin 32 pg (25-35) Mean Corpuscular Hemoglobin Concent 33 g/dL (31-37) Red Cell Distribution Width 18.5 % (11.5-14.5) Platelet Count 139 x10^3/uL (140-400) Neutrophils (%) (Auto) 88 % (31-73) Lymphocytes (%) (Auto) 3 % (24-48) Monocytes (%) (Auto) 9 % (0-9) Eosinophils (%) (Auto) 0 % (0-3) Basophils (%) (Auto) 0 % (0-3) Neutrophils # (Auto) 10.7 x10^3uL (1.8-7.7) Lymphocytes # (Auto) 0.4 x10^3/uL (1.0-4.8) Monocytes # (Auto) 1.1 x10^3/uL (0.0-1.1) Eosinophils # (Auto) 0.0 x10^3/uL (0.0-0.7) Basophils # (Auto) 0.0 x10^3/uL (0.0-0.2) Segmented Neutrophils % 94 % (35-66) Band Neutrophils % 1 % (0-9) Lymphocytes % 4 % (24-48) Monocytes % 1 % (0-10) Platelet Estimate Adequate (ADEQUATE) Polychromasia Present Anisocytosis Present Prothrombin Time 20.0 SEC (11.7-14.0) Prothromb Time International Ratio 1.7 (0.8-1.1) Activated Partial Thromboplast Time 34 SEC (24-38) Sodium Level 135 mmol/L (136-145) Potassium Level 4.1 mmol/L (3.5-5.1) Chloride Level 99 mmol/L (98-107) Carbon Dioxide Level 24 mmol/L (21-32) Anion Gap 12 (6-14) Blood Urea Nitrogen 48 mg/dL (7-20) Creatinine 4.7 mg/dL (0.6-1.0) Estimated GFR (Cockcroft-Gault) 9.4 BUN/Creatinine Ratio 10 (6-20) Glucose Level 285 mg/dL (70-99) Lactic Acid Level 3.6 mmol/L (0.4-2.0) Calcium Level 8.5 mg/dL (8.5-10.1) Total Bilirubin 1.8 mg/dL (0.2-1.0) Aspartate Amino Transf (AST/SGOT) 30 U/L (15-37) Alanine Aminotransferase (ALT/SGPT) 21 U/L (14-59) Alkaline Phosphatase 211 U/L (46-116) Troponin I Quantitative 0.042 ng/mL (0.000-0.055) OJ-Hrj-I-Type Natriuretic Peptide 4024 pg/mL (0-124) Total Protein 6.0 g/dL (6.4-8.2) Albumin 2.6 g/dL (3.4-5.0) Albumin/Globulin Ratio 0.8 (1.0-1.7) Test 10/24/18 12:19 10/24/18 14:00 Glucose (Fingerstick) 229 mg/dL (70-99) Lactic Acid Level 2.1 mmol/L (0.4-2.0) Ammonia 56 mcmol/L (11-34) Laboratory Tests Test 10/24/18 08:15 10/24/18 08:27 10/24/18 08:55 10/24/18 10:16 O2 Saturation 93 % (92-99) Arterial Blood pH 7.28 (7.35-7.45) Arterial Blood pCO2 at Patient Temp 45 mmHg (35-46) Arterial Blood pO2 at Patient Temp 85 mmHg (65-108) Arterial Blood HCO3 20 mmol/L (21-28) Arterial Blood Base Excess -6 mmol/L (-3-3) FiO2 28% pt on 2ln.c. Glucose (Fingerstick) 251 mg/dL (70-99) Body Fluid Source Peritoneal Body Fluid Color Yellow Body Fluid Clarity Hazy Body Fluid Nucleated Cells 127 /cmm (Not Established) Body Fluid Mononuclear WBCs (%) 74 % Body Fluid Polymorphonuclear Cells 26 % Body Fluid Total RBCs Counted 8301 /cmm (Not Established) White Blood Count 12.2 x10^3/uL (4.0-11.0) Red Blood Count 2.37 x10^6/uL (3.50-5.40) Hemoglobin 7.6 g/dL (12.0-15.5) Hematocrit 23.5 % (36.0-47.0) Mean Corpuscular Volume 99 fL (79-100) Mean Corpuscular Hemoglobin 32 pg (25-35) Mean Corpuscular Hemoglobin Concent 33 g/dL (31-37) Red Cell Distribution Width 18.5 % (11.5-14.5) Platelet Count 139 x10^3/uL (140-400) Neutrophils (%) (Auto) 88 % (31-73) Lymphocytes (%) (Auto) 3 % (24-48) Monocytes (%) (Auto) 9 % (0-9) Eosinophils (%) (Auto) 0 % (0-3) Basophils (%) (Auto) 0 % (0-3) Neutrophils # (Auto) 10.7 x10^3uL (1.8-7.7) Lymphocytes # (Auto) 0.4 x10^3/uL (1.0-4.8) Monocytes # (Auto) 1.1 x10^3/uL (0.0-1.1) Eosinophils # (Auto) 0.0 x10^3/uL (0.0-0.7) Basophils # (Auto) 0.0 x10^3/uL (0.0-0.2) Segmented Neutrophils % 94 % (35-66) Band Neutrophils % 1 % (0-9) Lymphocytes % 4 % (24-48) Monocytes % 1 % (0-10) Platelet Estimate Adequate (ADEQUATE) Polychromasia Present Anisocytosis Present Prothrombin Time 20.0 SEC (11.7-14.0) Prothromb Time International Ratio 1.7 (0.8-1.1) Activated Partial Thromboplast Time 34 SEC (24-38) Sodium Level 135 mmol/L (136-145) Potassium Level 4.1 mmol/L (3.5-5.1) Chloride Level 99 mmol/L (98-107) Carbon Dioxide Level 24 mmol/L (21-32) Anion Gap 12 (6-14) Blood Urea Nitrogen 48 mg/dL (7-20) Creatinine 4.7 mg/dL (0.6-1.0) Estimated GFR (Cockcroft-Gault) 9.4 BUN/Creatinine Ratio 10 (6-20) Glucose Level 285 mg/dL (70-99) Lactic Acid Level 3.6 mmol/L (0.4-2.0) Calcium Level 8.5 mg/dL (8.5-10.1) Total Bilirubin 1.8 mg/dL (0.2-1.0) Aspartate Amino Transf (AST/SGOT) 30 U/L (15-37) Alanine Aminotransferase (ALT/SGPT) 21 U/L (14-59) Alkaline Phosphatase 211 U/L (46-116) Troponin I Quantitative 0.042 ng/mL (0.000-0.055) JI-Evt-H-Type Natriuretic Peptide 4024 pg/mL (0-124) Total Protein 6.0 g/dL (6.4-8.2) Albumin 2.6 g/dL (3.4-5.0) Albumin/Globulin Ratio 0.8 (1.0-1.7) Test 10/24/18 12:19 10/24/18 14:00 Glucose (Fingerstick) 229 mg/dL (70-99) Lactic Acid Level 2.1 mmol/L (0.4-2.0) Ammonia 56 mcmol/L (11-34) Medications Active Scripts Medications Dose Route/Sig Max Daily Dose Days Date Category Dose Instructions Major-Prep Hemorrhoidal Oint (Phenyleph/Mineral Oil/Petrolat) 57 Gm Oint.appl 1 Efe RC PRN QID PRN 14 10/21/18 Rx Nystatin 15 Gm Oint...g. 1 Efe TP BID 30 10/21/18 Rx Clotrimazole 10 Mg Vielka 10 Mg MM BID 10 10/21/18 Rx Pantoprazole Sodium (Pantoprazole Sodium) 40 Mg Tablet.dr 40 Mg PO DAILYAC 30 10/21/18 Rx Benzonatate 100 Mg Capsule 100 Mg PO PRN Q6HRS PRN 10 10/21/18 Rx Hydrocodone-Apap 5-325 (Hydrocodone Bit/Acetaminophen) 1 Tab Tablet 1 Tab PO PRN Q6HRS PRN 30 10/21/18 Rx Proair Hfa (Albuterol Sulfate) 8.5 Gm Hfa.aer.ad 2.5 Mg NEB PRN Q6HRS PRN 30 10/21/18 Rx Midodrine Hcl 5 Mg Tablet 5 Mg PO [id number] 10/14/18 Reported Levaquin (Levofloxacin) 500 Mg Tablet 0.5 Tab PO DAILY 10/01/18 Rx Midodrine Hcl 5 Mg Tablet 10 Mg PO [id number] 14 09/10/18 Rx Benadryl (Diphenhydramine Hcl) 25 Mg Capsule 25 Mg PO PRN Q6HRS PRN 08/12/18 Reported Calcium Acetate 667 Mg Tablet 667 Mg PO TIDWMEALS 07/03/18 Reported Dialyvite Tablet (Folic Acid/Vitamin B Comp W-C) 1 Each Tablet 1 Each PO QMWF 07/03/18 Reported Omeprazole 40 Mg Capsule. 1 Cap PO DAILY 05/01/18 Reported Xifaxan (Rifaximin) 550 Mg Tablet 1 Tab PO BID 02/07/18 Reported Fusion Plus Capsule (Iron,Fum&Ps/Fa/Vit B&C#18/L.ca) 1 Each Capsule 1 Each PO DAILY 05/09/17 Reported Albuterol Sulfate Conc Neb Soln (Albuterol Sulfate) 2.5 Mg/0.5 Ml Vial.neb 2.5 Mg NEB Q6HRS PRN 08/03/15 Reported Lactulose 20 Gm/30 Ml Solution 20 Gm PO TID 08/03/15 Reported Lantus Solostar (Insulin Glargine,Hum.rec.anlog) 100 Unit/1 Ml Insuln.pen 40 Units SQ DAILY08 06/10/13 Reported SSI Calcium + Vitamin D Tablet (Calcium Carbonate/Vitamin D3) 1 Each Tablet 1 Each PO DAILY 06/02/13 Reported Albuterol Sulfate Hfa Inhaler (Albuterol Sulfate) 8.5 Gm Hfa.aer.ad 8.5 Gm IH PRN Q6HRS PRN 06/02/13 Reported Novolog Flexpen (Insulin Aspart) 100 Unit/1 Ml Insuln.pen 0 SQ TIDAC 06/02/13 Reported 0-149: 0 units 150-199: 2 units 200-249: 4 units 250-299: 6 units 300-349: 8 units 350-399: 10 units >400: Call Synthroid (Levothyroxine Sodium) 25 Mcg Tablet 300 Mcg PO DAILY 06/02/13 Reported Flovent 110MCG Hfa (Fluticasone Propionate) 12 Gm Aer.w.adap 1 Puff IH DAILY 06/02/13 Reported Comments cxr reviewed l effusion infilt atelectasis Impression . IMPRESSION: 1. Hhalc-ti-hwasios hypoxic respiratory failure secondary to worsening left-sided pleural effusion, likely transudative in etiology. She had multiple thoracenteses in the past, which were transudate. 2. History of end-stage liver disease/cirrhosis related to nonalcoholic fatty liver. Has required multiple paracentesis and underwent another paracentesis today. 3. End-stage renal disease, on hemodialysis. 4. Chronic obstructive pulmonary disease. 5. Mild reactive leukocytosis. 6. Moderate protein-calorie malnutrition. 7. Coagulopathy secondary to cirrhosis. Plan . RECOMMENDATIONS: 1. Continue with present nasal cannula. 02 titration 2. Continue with present chest tube and monitor chest tube output. review pf studies, cxr reviewed, infilt effusion atelectasis...will increase suction to - 40 3. Follow GI recommendations regarding her recurrent ascites. 4. Follow renal recommendation. 5. Agree with empiric antibiotics for now until pleural fluid cultures are back. 6. start IS 7. Bronchodilators. 8. We will follow along with you. 9. Monitor blood pressure closely. discussed w rn, pt MYRANDA TANG MD Oct 25, 2018 06:08
[2018-10-25 06:29] LABS: ALBUMIN 3.2 g/dL (3.4-5.0); ALBUMIN/GLOBULIN RATIO 1.3 (1.0-1.7); CALCIUM 8.4 mg/dL (8.5-10.1); GFR 8.8; POTASSIUM 3.9 mmol/L (3.5-5.1); TOTAL BILIRUBIN 4.1 mg/dL (0.2-1.0); TOTAL PROTEIN 5.6 g/dL (6.4-8.2)
--- NOTE | 2018-10-25 07:56 | RAD ---
PORTABLE CHEST 1V History: Effusions Comparison: October 24, 2018 Findings: Single view of the chest is submitted. There is again diffuse abnormal opacity of most of the left hemithorax other than minimal sparing of the left apex as seen previously. There is again left internal jugular dialysis type catheter as well as right internal jugular port catheter as seen previously. No pneumothorax is identified. There is again volume loss of the left hemithorax. There may be a trace right pleural effusion, mild hazy right base airspace opacity also present. There is again small caliber catheter near the left lung base. Cardiac silhouette is poorly distinguished, deviated to the left. Impression: 1. Radiographic findings are similar, diffuse abnormal opacity throughout most the left hemithorax other than some interval sparing of the apex probably component combination of pleural fluid and lung collapse. There is again small caliber left chest tube near the base. There may be a trace right pleural effusion with adjacent mild atelectasis. Electronically signed by: Walker Ramachandran MD (10/25/2018 7:54 AM) [facility]
[2018-10-25] MEDS: LACTULOSE 20 GM/30 ML SOLUTION. PO SCH ×3 (08:34→21:00)
[2018-10-25] MEDS: LACTOBACILLUS RHAMNOSUS GG 1 CAPSULE. PO SCH ×2 (08:39→21:00)
[2018-10-25] MEDS: INSULIN GLARGINE 300 UNITS/3 ML INSULN.PEN. SQ SCH (08:41)
[2018-10-25] MEDS ORDERED: IV NORMAL SALINE 1000ML BAG 1,000 ML IV PRN (08:42)
[2018-10-25] MEDS ORDERED: ALBUMIN HUMAN 25% 200 ML IV PRN (08:45)
[2018-10-25] MEDS ORDERED: 0.9 % SODIUM CHLORIDE 10 ML DISP.SYRIN. IV PRN ×2 (08:45)
[2018-10-25] MEDS ORDERED: DIALYSIS PATIENT. MC PRN ×2 (08:45)
[2018-10-25] MEDS ORDERED: MIDODRINE 5 MG TABLET PO SCH (09:00)
[2018-10-25] MEDS ORDERED: guaiFENesin DM 200MG/20MG 10 ML SYRUP PO PRN (09:15)
[2018-10-25] MEDS ORDERED: diphenhydrAMINE HCL 25 MG CAPSULE PO PRN (09:15)
[2018-10-25] MEDS ORDERED: ONDANSETRON PF 4 MG/2 ML VIAL. IV PRN (09:15)
[2018-10-25] MEDS ORDERED: PHENYLEPH/MINERAL OIL/PETROLAT RECTAL OINTMENT 57GM TUBE. RC PRN (09:15)
[2018-10-25] MEDS ORDERED: NON FORMULARY ITEM (Albuterol Sulfate (Albuterol Sulfate Conc Neb Soln) 2.5 MG) NEB PRN (09:15)
[2018-10-25] MEDS: CLOTRIMAZOLE 10 MG TROCHE. MM SCH ×2 (09:15→21:01)
[2018-10-25] MEDS: BUDESONIDE 0.5 MG/2 ML NEBU. NEB SCH ×2 (09:31→18:45)
[2018-10-25] MEDS: IPRATRPIUM/ALBUTEROL 0.5/2.5MG 3 ML NEBU. NEB SCH ×4 (09:31→18:45)
[2018-10-25] MEDS ORDERED: ALBUTEROL SULFATE 2.5 MG/3 ML NEBU. NEB PRN (09:45)
--- NOTE | 2018-10-25 09:47 | PDOC ---
PROGRESS NOTES Chief Complaint Chief Complaint Hypovolemic shock status post large volume paracentesis, status post large- volume thoracentesis-10 L total 10/24/2018 ESRD on dialysis Saturday Anemia of ESRD Generalized weakness/functional quadriplegia on hospice Full code Hypotension on midodrine with normal TSH and cortisol recently Diabetes type 2 on insulin with A1c 6.8 Leukocytosis, SIRS WBC 13 History of Present Illness History of Present Illness Seen in ICU, on low-dose levo 4 mics Did get albumin approx 100 g total status post large volume paracentesis and thoracentesis Patient is not complaining of anything Asks when she will get dialyzed CRRT at bedside now TSH and cortisol are normal Hgbq1c - 6.8 plan keep in ICU until we get levo off Okay to transfer out once off levo Inc midodrine to 10 TID from 5 BID (0ne of her home med dose) Dialysis per renal Did receive appropriate amounts of albumin post large volume paracentesis and thoracentesis PT OT Verifies a full code with me, came from home with hospice agency PRODUCT SUPPORT ANALYST Maria Teresa Vitals Vitals Vital Signs Date Time Temp Pulse Resp B/P (MAP) Pulse Ox O2 Delivery O2 Flow Rate FiO2 10/25/18 09:32 97 Nasal Cannula 2.0 10/25/18 09:15 92 93/35 (54) 10/25/18 09:00 25 10/25/18 08:00 97.8 97.8 Physical Exam General: Alert, Oriented X3, Cooperative, No acute distress, Other (senile skin turgor) Heart: Regular rate, Normal S1, Normal S2 Lungs: Clear, Other (l ct) Abdomen: Normal bowel sounds Extremities: No clubbing, No cyanosis Skin: No rashes, No breakdown Labs LABS Laboratory Tests Test 10/24/18 10:16 10/24/18 12:19 10/24/18 12:30 10/24/18 14:00 White Blood Count 12.2 x10^3/uL (4.0-11.0) Red Blood Count 2.37 x10^6/uL (3.50-5.40) Hemoglobin 7.6 g/dL (12.0-15.5) Hematocrit 23.5 % (36.0-47.0) Mean Corpuscular Volume 99 fL (79-100) Mean Corpuscular Hemoglobin 32 pg (25-35) Mean Corpuscular Hemoglobin Concent 33 g/dL (31-37) Red Cell Distribution Width 18.5 % (11.5-14.5) Platelet Count 139 x10^3/uL (140-400) Neutrophils (%) (Auto) 88 % (31-73) Lymphocytes (%) (Auto) 3 % (24-48) Monocytes (%) (Auto) 9 % (0-9) Eosinophils (%) (Auto) 0 % (0-3) Basophils (%) (Auto) 0 % (0-3) Neutrophils # (Auto) 10.7 x10^3uL (1.8-7.7) Lymphocytes # (Auto) 0.4 x10^3/uL (1.0-4.8) Monocytes # (Auto) 1.1 x10^3/uL (0.0-1.1) Eosinophils # (Auto) 0.0 x10^3/uL (0.0-0.7) Basophils # (Auto) 0.0 x10^3/uL (0.0-0.2) Segmented Neutrophils % 94 % (35-66) Band Neutrophils % 1 % (0-9) Lymphocytes % 4 % (24-48) Monocytes % 1 % (0-10) Platelet Estimate Adequate (ADEQUATE) Polychromasia Present Anisocytosis Present Prothrombin Time 20.0 SEC (11.7-14.0) Prothromb Time International Ratio 1.7 (0.8-1.1) Activated Partial Thromboplast Time 34 SEC (24-38) Sodium Level 135 mmol/L (136-145) Potassium Level 4.1 mmol/L (3.5-5.1) Chloride Level 99 mmol/L (98-107) Carbon Dioxide Level 24 mmol/L (21-32) Anion Gap 12 (6-14) Blood Urea Nitrogen 48 mg/dL (7-20) Creatinine 4.7 mg/dL (0.6-1.0) Estimated GFR (Cockcroft-Gault) 9.4 BUN/Creatinine Ratio 10 (6-20) Glucose Level 285 mg/dL (70-99) Lactic Acid Level 3.6 mmol/L (0.4-2.0) 2.1 mmol/L (0.4-2.0) Calcium Level 8.5 mg/dL (8.5-10.1) Total Bilirubin 1.8 mg/dL (0.2-1.0) Aspartate Amino Transf (AST/SGOT) 30 U/L (15-37) Alanine Aminotransferase (ALT/SGPT) 21 U/L (14-59) Alkaline Phosphatase 211 U/L (46-116) Troponin I Quantitative 0.042 ng/mL (0.000-0.055) UW-Juj-Y-Type Natriuretic Peptide 4024 pg/mL (0-124) Total Protein 6.0 g/dL (6.4-8.2) Albumin 2.6 g/dL (3.4-5.0) Albumin/Globulin Ratio 0.8 (1.0-1.7) Glucose (Fingerstick) 229 mg/dL (70-99) Body Fluid Total Protein 2.0 g/dL (.) Body Fluid Lactate Dehydrogenase 164 IU/L (.) Ammonia 56 mcmol/L (11-34) Test 10/25/18 05:50 White Blood Count 13.4 x10^3/uL (4.0-11.0) Red Blood Count 3.22 x10^6/uL (3.50-5.40) Hemoglobin 10.2 g/dL (12.0-15.5) Hematocrit 30.3 % (36.0-47.0) Mean Corpuscular Volume 94 fL (79-100) Mean Corpuscular Hemoglobin 32 pg (25-35) Mean Corpuscular Hemoglobin Concent 34 g/dL (31-37) Red Cell Distribution Width 19.3 % (11.5-14.5) Platelet Count 109 x10^3/uL (140-400) Sodium Level 138 mmol/L (136-145) Potassium Level 3.9 mmol/L (3.5-5.1) Chloride Level 102 mmol/L (98-107) Carbon Dioxide Level 21 mmol/L (21-32) Anion Gap 15 (6-14) Blood Urea Nitrogen 50 mg/dL (7-20) Creatinine 5.0 mg/dL (0.6-1.0) Estimated GFR (Cockcroft-Gault) 8.8 BUN/Creatinine Ratio 10 (6-20) Glucose Level 282 mg/dL (70-99) Calcium Level 8.4 mg/dL (8.5-10.1) Total Bilirubin 4.1 mg/dL (0.2-1.0) Aspartate Amino Transf (AST/SGOT) 24 U/L (15-37) Alanine Aminotransferase (ALT/SGPT) 17 U/L (14-59) Alkaline Phosphatase 162 U/L (46-116) Total Protein 5.6 g/dL (6.4-8.2) Albumin 3.2 g/dL (3.4-5.0) Albumin/Globulin Ratio 1.3 (1.0-1.7) Review of Systems Review of Systems A 14 point ROS was completed with the following noted as positive: Other systems reviewed and negative. \CONSTITUTIONAL: No fever or chills EYES: No recent changes SKIN: No rash or itching CARDIOVASCULAR: No chest pain, syncope, palpitations, or edema RESPIRATORY: No SOB or cough GASTROINTESTINAL: No nausea, vomiting or abdominal pain NEUROLOGICAL: No headaches or weakness ENDOCRINE: No cold or heat intolerance GENITOURINARY: No urgency or frequency of urination MUSCULOSKELETAL: No back pain or joint pain LYMPHATICS: No enlarged lymph nodes PSYCHIATRIC: No anxiety or depression Assessment and Plan Assessmemt and Plan Problems Medical Problems: (1) Hypotension Status: Acute (2) Pleural effusion Status: Acute Comment Review of Relevant I have reviewed the following items chante (where applicable) has been applied. Labs Laboratory Tests Test 10/24/18 08:15 10/24/18 08:27 10/24/18 08:55 10/24/18 10:16 O2 Saturation 93 % (92-99) Arterial Blood pH 7.28 (7.35-7.45) Arterial Blood pCO2 at Patient Temp 45 mmHg (35-46) Arterial Blood pO2 at Patient Temp 85 mmHg (65-108) Arterial Blood HCO3 20 mmol/L (21-28) Arterial Blood Base Excess -6 mmol/L (-3-3) FiO2 28% pt on 2ln.c. Glucose (Fingerstick) 251 mg/dL (70-99) Body Fluid Source Peritoneal Body Fluid Color Yellow Body Fluid Clarity Hazy Body Fluid Nucleated Cells 127 /cmm (Not Established) Body Fluid Mononuclear WBCs (%) 74 % Body Fluid Polymorphonuclear Cells 26 % Body Fluid Total RBCs Counted 8301 /cmm (Not Established) Body Fluid Total Protein 0.5 g/dL (.) Body Fluid Lactate Dehydrogenase 67 IU/L (.) White Blood Count 12.2 x10^3/uL (4.0-11.0) Red Blood Count 2.37 x10^6/uL (3.50-5.40) Hemoglobin 7.6 g/dL (12.0-15.5) Hematocrit 23.5 % (36.0-47.0) Mean Corpuscular Volume 99 fL (79-100) Mean Corpuscular Hemoglobin 32 pg (25-35) Mean Corpuscular Hemoglobin Concent 33 g/dL (31-37) Red Cell Distribution Width 18.5 % (11.5-14.5) Platelet Count 139 x10^3/uL (140-400) Neutrophils (%) (Auto) 88 % (31-73) Lymphocytes (%) (Auto) 3 % (24-48) Monocytes (%) (Auto) 9 % (0-9) Eosinophils (%) (Auto) 0 % (0-3) Basophils (%) (Auto) 0 % (0-3) Neutrophils # (Auto) 10.7 x10^3uL (1.8-7.7) Lymphocytes # (Auto) 0.4 x10^3/uL (1.0-4.8) Monocytes # (Auto) 1.1 x10^3/uL (0.0-1.1) Eosinophils # (Auto) 0.0 x10^3/uL (0.0-0.7) Basophils # (Auto) 0.0 x10^3/uL (0.0-0.2) Segmented Neutrophils % 94 % (35-66) Band Neutrophils % 1 % (0-9) Lymphocytes % 4 % (24-48) Monocytes % 1 % (0-10) Platelet Estimate Adequate (ADEQUATE) Polychromasia Present Anisocytosis Present Prothrombin Time 20.0 SEC (11.7-14.0) Prothromb Time International Ratio 1.7 (0.8-1.1) Activated Partial Thromboplast Time 34 SEC (24-38) Sodium Level 135 mmol/L (136-145) Potassium Level 4.1 mmol/L (3.5-5.1) Chloride Level 99 mmol/L (98-107) Carbon Dioxide Level 24 mmol/L (21-32) Anion Gap 12 (6-14) Blood Urea Nitrogen 48 mg/dL (7-20) Creatinine 4.7 mg/dL (0.6-1.0) Estimated GFR (Cockcroft-Gault) 9.4 BUN/Creatinine Ratio 10 (6-20) Glucose Level 285 mg/dL (70-99) Lactic Acid Level 3.6 mmol/L (0.4-2.0) Calcium Level 8.5 mg/dL (8.5-10.1) Total Bilirubin 1.8 mg/dL (0.2-1.0) Aspartate Amino Transf (AST/SGOT) 30 U/L (15-37) Alanine Aminotransferase (ALT/SGPT) 21 U/L (14-59) Alkaline Phosphatase 211 U/L (46-116) Troponin I Quantitative 0.042 ng/mL (0.000-0.055) MY-Xfo-S-Type Natriuretic Peptide 4024 pg/mL (0-124) Total Protein 6.0 g/dL (6.4-8.2) Albumin 2.6 g/dL (3.4-5.0) Albumin/Globulin Ratio 0.8 (1.0-1.7) Test 10/24/18 12:19 10/24/18 12:30 10/24/18 14:00 10/25/18 05:50 Glucose (Fingerstick) 229 mg/dL (70-99) Body Fluid Total Protein 2.0 g/dL (.) Body Fluid Lactate Dehydrogenase 164 IU/L (.) Lactic Acid Level 2.1 mmol/L (0.4-2.0) Ammonia 56 mcmol/L (11-34) White Blood Count 13.4 x10^3/uL (4.0-11.0) Red Blood Count 3.22 x10^6/uL (3.50-5.40) Hemoglobin 10.2 g/dL (12.0-15.5) Hematocrit 30.3 % (36.0-47.0) Mean Corpuscular Volume 94 fL (79-100) Mean Corpuscular Hemoglobin 32 pg (25-35) Mean Corpuscular Hemoglobin Concent 34 g/dL (31-37) Red Cell Distribution Width 19.3 % (11.5-14.5) Platelet Count 109 x10^3/uL (140-400) Sodium Level 138 mmol/L (136-145) Potassium Level 3.9 mmol/L (3.5-5.1) Chloride Level 102 mmol/L (98-107) Carbon Dioxide Level 21 mmol/L (21-32) Anion Gap 15 (6-14) Blood Urea Nitrogen 50 mg/dL (7-20) Creatinine 5.0 mg/dL (0.6-1.0) Estimated GFR (Cockcroft-Gault) 8.8 BUN/Creatinine Ratio 10 (6-20) Glucose Level 282 mg/dL (70-99) Calcium Level 8.4 mg/dL (8.5-10.1) Total Bilirubin 4.1 mg/dL (0.2-1.0) Aspartate Amino Transf (AST/SGOT) 24 U/L (15-37) Alanine Aminotransferase (ALT/SGPT) 17 U/L (14-59) Alkaline Phosphatase 162 U/L (46-116) Total Protein 5.6 g/dL (6.4-8.2) Albumin 3.2 g/dL (3.4-5.0) Albumin/Globulin Ratio 1.3 (1.0-1.7) Laboratory Tests Test 10/24/18 10:16 10/24/18 12:19 10/24/18 12:30 10/24/18 14:00 White Blood Count 12.2 x10^3/uL (4.0-11.0) Red Blood Count 2.37 x10^6/uL (3.50-5.40) Hemoglobin 7.6 g/dL (12.0-15.5) Hematocrit 23.5 % (36.0-47.0) Mean Corpuscular Volume 99 fL (79-100) Mean Corpuscular Hemoglobin 32 pg (25-35) Mean Corpuscular Hemoglobin Concent 33 g/dL (31-37) Red Cell Distribution Width 18.5 % (11.5-14.5) Platelet Count 139 x10^3/uL (140-400) Neutrophils (%) (Auto) 88 % (31-73) Lymphocytes (%) (Auto) 3 % (24-48) Monocytes (%) (Auto) 9 % (0-9) Eosinophils (%) (Auto) 0 % (0-3) Basophils (%) (Auto) 0 % (0-3) Neutrophils # (Auto) 10.7 x10^3uL (1.8-7.7) Lymphocytes # (Auto) 0.4 x10^3/uL (1.0-4.8) Monocytes # (Auto) 1.1 x10^3/uL (0.0-1.1) Eosinophils # (Auto) 0.0 x10^3/uL (0.0-0.7) Basophils # (Auto) 0.0 x10^3/uL (0.0-0.2) Segmented Neutrophils % 94 % (35-66) Band Neutrophils % 1 % (0-9) Lymphocytes % 4 % (24-48) Monocytes % 1 % (0-10) Platelet Estimate Adequate (ADEQUATE) Polychromasia Present Anisocytosis Present Prothrombin Time 20.0 SEC (11.7-14.0) Prothromb Time International Ratio 1.7 (0.8-1.1) Activated Partial Thromboplast Time 34 SEC (24-38) Sodium Level 135 mmol/L (136-145) Potassium Level 4.1 mmol/L (3.5-5.1) Chloride Level 99 mmol/L (98-107) Carbon Dioxide Level 24 mmol/L (21-32) Anion Gap 12 (6-14) Blood Urea Nitrogen 48 mg/dL (7-20) Creatinine 4.7 mg/dL (0.6-1.0) Estimated GFR (Cockcroft-Gault) 9.4 BUN/Creatinine Ratio 10 (6-20) Glucose Level 285 mg/dL (70-99) Lactic Acid Level 3.6 mmol/L (0.4-2.0) 2.1 mmol/L (0.4-2.0) Calcium Level 8.5 mg/dL (8.5-10.1) Total Bilirubin 1.8 mg/dL (0.2-1.0) Aspartate Amino Transf (AST/SGOT) 30 U/L (15-37) Alanine Aminotransferase (ALT/SGPT) 21 U/L (14-59) Alkaline Phosphatase 211 U/L (46-116) Troponin I Quantitative 0.042 ng/mL (0.000-0.055) DE-Jcx-[id number]-Type Natriuretic Peptide 4024 pg/mL (0-124) Total Protein 6.0 g/dL (6.4-8.2) Albumin 2.6 g/dL (3.4-5.0) Albumin/Globulin Ratio 0.8 (1.0-1.7) Glucose (Fingerstick) 229 mg/dL (70-99) Body Fluid Total Protein 2.0 g/dL (.) Body Fluid Lactate Dehydrogenase 164 IU/L (.) Ammonia 56 mcmol/L (11-34) Test 10/25/18 05:50 White Blood Count 13.4 x10^3/uL (4.0-11.0) Red Blood Count 3.22 x10^6/uL (3.50-5.40) Hemoglobin 10.2 g/dL (12.0-15.5) Hematocrit 30.3 % (36.0-47.0) Mean Corpuscular Volume 94 fL (79-100) Mean Corpuscular Hemoglobin 32 pg (25-35) Mean Corpuscular Hemoglobin Concent 34 g/dL (31-37) Red Cell Distribution Width 19.3 % (11.5-14.5) Platelet Count 109 x10^3/uL (140-400) Sodium Level 138 mmol/L (136-145) Potassium Level 3.9 mmol/L (3.5-5.1) Chloride Level 102 mmol/L (98-107) Carbon Dioxide Level 21 mmol/L (21-32) Anion Gap 15 (6-14) Blood Urea Nitrogen 50 mg/dL (7-20) Creatinine 5.0 mg/dL (0.6-1.0) Estimated GFR (Cockcroft-Gault) 8.8 BUN/Creatinine Ratio 10 (6-20) Glucose Level 282 mg/dL (70-99) Calcium Level 8.4 mg/dL (8.5-10.1) Total Bilirubin 4.1 mg/dL (0.2-1.0) Aspartate Amino Transf (AST/SGOT) 24 U/L (15-37) Alanine Aminotransferase (ALT/SGPT) 17 U/L (14-59) Alkaline Phosphatase 162 U/L (46-116) Total Protein 5.6 g/dL (6.4-8.2) Albumin 3.2 g/dL (3.4-5.0) Albumin/Globulin Ratio 1.3 (1.0-1.7) Medications Current Medications Sodium Chloride 1,000 ml @ 1,000 mls/hr 1X ONCE IV Last administered on 10/24/18at 10:00; Start 10/24/18 at 08:15; Stop 10/24/18 at 09:14; Status DC Lidocaine/Sodium Bicarbonate (Buffered Lidocaine 1%) 12 ml 1X ONCE IJ Last administered on 10/24/18at 09:30; Start 10/24/18 at 09:30; Stop 10/24/18 at 09:31; Status DC Albumin Human 100 ml @ 100 mls/hr 1X ONCE IV Last administered on 10/24/18at 09:30; Start 10/24/18 at 09:30; Stop 10/24/18 at 10:29; Status DC Albumin Human 100 ml @ 100 mls/hr 1X ONCE IV Last administered on 10/24/18at 11:38; Start 10/24/18 at 09:30; Stop 10/24/18 at 10:29; Status DC Albumin Human 100 ml @ 100 mls/hr 1X ONCE IV Last administered on 10/24/18at 09:20; Start 10/24/18 at 09:30; Stop 10/24/18 at 10:29; Status DC Fentanyl Citrate (Fentanyl 2ml Vial) 50 mcg 1X ONCE IV Last administered on 10/24/18at 11:42; Start 10/24/18 at 11:00; Stop 10/24/18 at 11:01; Status DC Piperacillin Sod/ Tazobactam Sod (Zosyn Per Pharmacy) 1 each PRN DAILY PRN MC SEE COMMENTS; Start 10/24/18 at 11:30 Piperacillin Sod/ Tazobactam Sod 2.25 gm/Sodium Chloride 50 ml @ 100 mls/hr Q8HRS IV Last administered on 10/25/18at 05:09; Start 10/24/18 at 12:00 Ondansetron HCl (Zofran) 4 mg PRN Q8HRS PRN IV NAUSEA/VOMITING; Start 10/24/18 at 11:45; Stop 10/25/18 at 09:05; Status DC Albuterol/ Ipratropium (Duoneb) 3 ml RTQID NEB Last administered on 10/25/18at 09:31; Start 10/24/18 at 12:00 Piperacillin Sod/ Tazobactam Sod (Zosyn Per Pharmacy) 1 each PRN DAILY PRN MC SEE COMMENTS; Start 10/24/18 at 12:00; Status UNV Sodium Chloride 500 ml @ 500 mls/hr 1X ONCE IV Last administered on 10/24/18at 13:29; Start 10/24/18 at 13:30; Stop 10/24/18 at 14:29; Status DC Norepinephrine Bitartrate 250 ml @ 1.875 mls/ hr CONT PRN IV SEE I/O RECORD Last administered on 10/24/18at 16:44; Start 10/24/18 at 13:30 Albumin Human 100 ml @ 100 mls/hr 1X ONCE IV Last administered on 10/24/18at 15:30; Start 10/24/18 at 15:30; Stop 10/24/18 at 16:29; Status DC Albumin Human 100 ml @ As Directed STK-MED ONCE IV ; Start 10/24/18 at 15:23; Stop 10/24/18 at 15:24; Status DC Fentanyl Citrate (Fentanyl 2ml Vial) 50 mcg PRN Q2HR PRN IV PAIN Last administered on 10/24/18at 17:05; Start 10/24/18 at 17:00 Insulin Glargine (Lantus) 40 units DAILY08 SQ Last administered on 10/25/18at 08:41; Start 10/25/18 at 08:00 Lactulose (Lactulose) 20 gm TID PO ; Start 10/24/18 at 21:00 Budesonide (Pulmicort) 0.5 mg RTBID NEB Last administered on 10/25/18at 09:31; Start 10/24/18 at 20:00 Midodrine (Proamatine) 5 mg [id number] PO Last administered on 10/25/18at 08:40; Start 10/25/18 at 09:00; Stop 10/25/18 at 09:07; Status DC Non-Formulary Medication (Midodrine Hcl ) 10 mg [id number] PO ; Start 10/24/18 at 18:00; Status UNV Acetaminophen/ Hydrocodone Bitart (Lortab 5/325) 1 tab PRN Q6HRS PRN PO PAIN; Start 10/24/18 at 18:30 Lactobacillus Rhamnosus (Culturelle) 1 cap BID PO Last administered on 10/25/18at 08:39; Start 10/25/18 at 09:00 Albumin Human 200 ml @ 200 mls/hr 1X PRN PRN IV Hypotension; Start 10/25/18 at 08:45; Stop 10/25/18 at 14:44 Sodium Chloride (Normal Saline Flush) 10 ml 1X PRN PRN IV AP catheter pack; Start 10/25/18 at 08:45; Stop 10/26/18 at 08:44 Sodium Chloride (Normal Saline Flush) 10 ml 1X PRN PRN IV DEVELOPMENTAL THERAPIST catheter pack; Start 10/25/18 at 08:45; Stop 10/26/18 at 08:44 Sodium Chloride 1,000 ml @ 400 mls/hr Q2H30M PRN IV PATENCY; Start 10/25/18 at 08:42; Stop 10/25/18 at 20:41 Info (PHARMACY MONITORING -- do not chart) 1 each PRN DAILY PRN MC SEE COMMENTS; Start 10/25/18 at 08:45; Status UNV Info (PHARMACY MONITORING -- do not chart) 1 each PRN DAILY PRN MC SEE COMMENTS; Start 10/25/18 at 08:45 Ondansetron HCl (Zofran) 4 mg PRN Q6HRS PRN IV NAUSEA/VOMITING; Start 10/25/18 at 09:15 Guaifenesin (Robitussin Dm) 10 ml PRN Q6HRS PRN PO COUGH; Start 10/25/18 at 09:15 Clotrimazole (Mycelex) 10 mg BID MM ; Start 10/25/18 at 09:15 Diphenhydramine HCl (Benadryl) 25 mg PRN Q6HRS PRN PO ITCHING; Start 10/25/18 at 09:15 Nystatin (Mycostatin) 1 efe BID TP ; Start 10/25/18 at 09:30 Pantoprazole Sodium (Protonix) 40 mg DAILYAC PO ; Start 10/25/18 at 11:30 Phenyleph/Shark Oil/Min Oil/Petrol (Preparation H) 1 efe PRN QID PRN RC RECTAL PAIN; Start 10/25/18 at 09:15 Rifaximin (Xifaxan) 550 mg BID PO ; Start 10/25/18 at 10:00 Non-Formulary Medication (Albuterol Sulfate (Albuterol Sulfate Conc Neb Soln)) 2.5 mg Q6HRS PRN NEB SHORTNESS OF BREATH; Start 10/25/18 at 09:15; Status UNV Benzonatate (Tessalon Perle) 100 mg PRN Q6HRS PRN PO COUGH; Start 10/25/18 at 14:00 Calcium Acetate (Phoslo) 667 mg TIDWMEALS PO ; Start 10/25/18 at 12:00 Calcium/Vitamin D (Oscal D 500mg/ 200uts) 1 tab DAILY08 PO ; Start 10/25/18 at 10:00 Vitamin B Complex/ Vitamin C (Tasia-Meliton) 1 tab DAILY PO ; Start 10/25/18 at 10:00 Vitamin B Complex (Shiva B) 1 tab DAILY PO ; Start 10/25/18 at 10:00 Levothyroxine Sodium (Synthroid) 300 mcg DAILY06 PO ; Start 10/25/18 at 10:30 Midodrine (Proamatine) 10 mg [id number] PO ; Start 10/25/18 at 13:00 Albuterol Sulfate (Ventolin Neb Soln) 2.5 mg PRN Q6HRS PRN NEB SHORTNESS OF BREATH; Start 10/25/18 at 09:45; Status UNV Active Scripts Active Major-Prep Hemorrhoidal Oint (Phenyleph/Mineral Oil/Petrolat) 57 Gm Oint.appl 1 Efe RC PRN QID PRN 14 Days Nystatin 15 Gm Oint...g. 1 Efe TP BID 30 Days Clotrimazole 10 Mg Vielka 10 Mg MM BID 10 Days Pantoprazole Sodium (Pantoprazole Sodium) 40 Mg Tablet.dr 40 Mg PO DAILYAC 30 Days Benzonatate 100 Mg Capsule 100 Mg PO PRN Q6HRS PRN 10 Days Hydrocodone-Apap 5-325 (Hydrocodone Bit/Acetaminophen) 1 Tab Tablet 1 Tab PO PRN Q6HRS PRN 30 Days Proair Hfa (Albuterol Sulfate) 8.5 Gm Hfa.aer.ad 2.5 Mg NEB PRN Q6HRS PRN 30 Days Levaquin (Levofloxacin) 500 Mg Tablet 0.5 Tab PO DAILY Midodrine Hcl 5 Mg Tablet 10 Mg PO [id number] 14 Days Reported Midodrine Hcl 5 Mg Tablet 5 Mg PO [id number] Benadryl (Diphenhydramine Hcl) 25 Mg Capsule 25 Mg PO PRN Q6HRS PRN Calcium Acetate 667 Mg Tablet 667 Mg PO TIDWMEALS Dialyvite Tablet (Folic Acid/Vitamin B Comp W-C) 1 Each Tablet 1 Each PO QMWF Omeprazole 40 Mg Capsule. 1 Cap PO DAILY Xifaxan (Rifaximin) 550 Mg Tablet 1 Tab PO BID Fusion Plus Capsule (Iron,Fum&Ps/Fa/Vit B&C#18/L.ca) 1 Each Capsule 1 Each PO DAILY Albuterol Sulfate Conc Neb Soln (Albuterol Sulfate) 2.5 Mg/0.5 Ml Vial.neb 2.5 Mg NEB Q6HRS PRN Lactulose 20 Gm/30 Ml Solution 20 Gm PO TID Lantus Solostar (Insulin Glargine,Hum.rec.anlog) 100 Unit/1 Ml Insuln.pen 40 Units SQ DAILY08 SSI Calcium + Vitamin D Tablet (Calcium Carbonate/Vitamin D3) 1 Each Tablet 1 Each PO DAILY Albuterol Sulfate Hfa Inhaler (Albuterol Sulfate) 8.5 Gm Hfa.aer.ad 8.5 Gm IH PRN Q6HRS PRN Novolog Flexpen (Insulin Aspart) 100 Unit/1 Ml Insuln.pen 0 SQ TIDAC 0-149: 0 units 150-199: 2 units 200-249: 4 units 250-299: 6 units 300-349: 8 units 350-399: 10 units >400: Call Synthroid (Levothyroxine Sodium) 25 Mcg Tablet 300 Mcg PO DAILY Flovent 110MCG Hfa (Fluticasone Propionate) 12 Gm Aer.w.adap 1 Puff IH DAILY Vitals/I & O Vital Sign - Last 24 Hours 10/24/18 10/24/18 10/24/18 10/24/18 09:46 09:52 10:01 10:13 Pulse 95 99 100 98 Resp 28 30 30 26 B/P (MAP) 64/38 (47) 71/42 (52) 84/45 (58) 70/37 (48) Pulse Ox 93 92 94 96 O2 Delivery Nasal Cannula Nasal Cannula Nasal Cannula Nasal Cannula O2 Flow Rate 2.0 2.0 2.0 3.0 10/24/18 10/24/18 10/24/18 10/24/18 10:30 10:30 10:55 11:25 Pulse 99 94 94 Resp 28 28 28 B/P (MAP) 92/49 (63) 95/46 (62) 97/51 (66) Pulse Ox 99 100 93 O2 Delivery Nasal Cannula Nasal Cannula Nasal Cannula Nasal Cannula O2 Flow Rate 2.0 3.0 3.0 3.0 10/24/18 10/24/18 10/24/18 10/24/18 11:35 12:00 12:12 12:22 Temp 97.9 97.9 Pulse 92 89 Resp 28 22 22 B/P (MAP) 93/51 (65) 102/65 (77) Pulse Ox 93 92 O2 Delivery Nasal Cannula Nasal Cannula Nasal Cannula Nasal Cannula O2 Flow Rate 3.0 3.0 2.0 2.0 10/24/18 10/24/18 10/24/18 10/24/18 12:30 12:50 12:56 13:00 Pulse 95 89 88 Resp 22 21 26 B/P (MAP) 90/55 (67) 84/45 (58) 69/35 (46) Pulse Ox 94 99 95 97 O2 Delivery Nasal Cannula Nasal Cannula Nasal Cannula Nasal Cannula O2 Flow Rate 2.0 2.0 2.0 10/24/18 10/24/18 10/24/18 10/24/18 13:15 13:30 13:40 15:18 Pulse 88 88 88 89 Resp 24 26 22 21 B/P (MAP) 75/38 (50) 61/39 (46) 78/54 (62) 77/56 (63) Pulse Ox 98 97 97 96 O2 Delivery Nasal Cannula Nasal Cannula Nasal Cannula Nasal Cannula O2 Flow Rate 2.0 10/24/18 10/24/18 10/24/18 10/24/18 15:28 16:00 16:18 16:30 Temp 98.0 98.0 Pulse 88 90 Resp 22 21 B/P (MAP) 79/54 (62) 71/33 (46) Pulse Ox 99 92 93 O2 Delivery Nasal Cannula Nasal Cannula Nasal Cannula Nasal Cannula O2 Flow Rate 2.0 3.0 2.0 2.0 10/24/18 10/24/18 10/24/18 10/24/18 16:44 16:45 17:00 17:05 Pulse 93 91 Resp 23 B/P (MAP) 33/ 75/39 (51) 85/61 (69) Pulse Ox 93 92 93 O2 Delivery Nasal Cannula O2 Flow Rate 2.0 2.0 2.0 10/24/18 10/24/18 10/24/18 10/24/18 17:35 17:42 18:05 18:19 Pulse 94 88 95 Resp 22 B/P (MAP) 95/68 (77) 106/46 106/56 (73) Pulse Ox 93 93 95 O2 Delivery Nasal Cannula O2 Flow Rate 2.0 2.0 3.0 10/24/18 10/24/18 10/24/18 10/24/18 18:39 18:46 20:00 20:00 Temp 97.6 97.6 Pulse 92 91 90 Resp B/P (MAP) 80/49 (59) 94/44 (61) 91/49 (63) Pulse Ox 96 97 95 O2 Delivery Nasal Cannula Nasal Cannula Nasal Cannula Nasal Cannula O2 Flow Rate 2.0 2.0 2.0 3.0 10/24/18 10/24/18 10/24/18 10/25/18 21:00 22:00 23:00 00:00 Pulse 95 91 90 Resp B/P (MAP) 89/42 (58) 118/70 (86) 102/55 (71) Pulse Ox 95 97 97 O2 Delivery Nasal Cannula Nasal Cannula Nasal Cannula Nasal Cannula O2 Flow Rate 3.0 2.0 2.0 3.0 10/25/18 10/25/18 10/25/18 10/25/18 00:01 01:00 02:00 03:00 Temp 97.8 97.8 Pulse 89 89 88 88 Resp 24 B/P (MAP) 102/57 (72) 99/50 (66) 89/53 (65) 95/53 (67) Pulse Ox 95 97 97 96 O2 Delivery Nasal Cannula Nasal Cannula Nasal Cannula Nasal Cannula O2 Flow Rate 2.0 2.0 2.0 2.0 10/25/18 10/25/18 10/25/18 10/25/18 04:00 04:00 05:01 06:00 Temp 97.7 97.7 Pulse 89 87 81 Resp B/P (MAP) 97/51 (66) 95/50 (65) 81/61 (68) Pulse Ox 95 97 97 O2 Delivery Nasal Cannula Nasal Cannula Nasal Cannula Nasal Cannula O2 Flow Rate 2.0 3.0 2.0 2.0 10/25/18 10/25/18 10/25/18 10/25/18 07:00 07:30 07:45 08:00 Pulse 94 92 88 Resp 22 B/P (MAP) 107/68 (81) 98/56 (70) 93/67 (76) Pulse Ox 98 O2 Delivery Nasal Cannula Nasal Cannula O2 Flow Rate 2.0 2.0 10/25/18 10/25/18 10/25/18 10/25/18 08:00 08:40 08:55 09:00 Temp 97.8 97.8 Pulse 92 92 92 92 Resp 23 20 25 B/P (MAP) 87/51 (63) 87/51 81/34 (50) 77/33 (48) Pulse Ox 97 95 O2 Delivery Nasal Cannula Nasal Cannula O2 Flow Rate 2.0 2.0 10/25/18 10/25/18 09:15 09:32 Pulse 92 B/P (MAP) 93/35 (54) Pulse Ox 97 O2 Delivery Nasal Cannula O2 Flow Rate 2.0 Intake and Output 10/24/18 10/24/18 10/25/18 14:59 22:59 06:59 Intake Total 1250 ml 1770 ml 768 ml Output Total 03669 ml 700 ml 20 ml Balance -9050 ml 1070 ml 748 ml ABE RIVER MD Oct 25, 2018 09:47
[2018-10-25] MEDS: CALCIUM CARB/VIT D3 500/200 TABLET. PO SCH (10:00)
[2018-10-25] MEDS: FOLIC/VIT B COMP W-C (RENAL) TABLET. PO SCH (10:00)
[2018-10-25] MEDS: VITAMIN B COMPLEX TABLET. PO SCH (10:00)
[2018-10-25] MEDS: LEVOTHYROXINE 150 MCG TABLET PO SCH (10:30)
[2018-10-25] MEDS: NYSTATIN 100,000 UNIT/GM TOPICAL OINTMENT 15GM TUBE. TP SCH ×2 (13:33→21:02)
--- NOTE | 2018-10-25 13:42 | PDOC ---
PROGRESS NOTES Subjective Subjective SEEN IN FOLLOW UP OF ESRD Objective Objective Vital Signs Date Time Temp Pulse Resp B/P (MAP) Pulse Ox O2 Delivery O2 Flow Rate FiO2 10/25/18 12:55 98 Nasal Cannula 2.0 10/25/18 11:00 101 22 112/52 (72) 10/25/18 08:00 97.8 97.8 Intake and Output 10/25/18 06:59 Intake Total 3788 ml Output Total 38687 ml Balance -7232 ml Intake Oral 700 ml IV Total 2018 ml Blood Product 700 ml Blood Product IV Normal Saline Flush 370 ml Output Urine Total 0 ml Chest Tube Drainage Total 3020 ml Other 8000 ml # Bowel Movements 2 Physical Exam Abdomen: Normal bowel sounds, Soft, No tenderness, No hepatosplenomegaly, No masses Heart: Regular rate, Normal S1, Normal S2, No murmurs, Gallops Extremities: No clubbing, No cyanosis, No edema, Normal pulses, No tenderness/swelling General: Alert, Other (REFUFING MEDS) Lungs: Clear to auscultation, Normal air movement Psych/Mental Status: Other (UNCOOPERRTIVE WITH HER CARE) Diagnosis RENAL FAILURE: ESRD Assessment Assessment Problems Medical Problems: (1) Hypotension Status: Acute (2) Pleural effusion Status: Acute Plan Plan of Care SEEN ON DIALYSIS AND TOLERATING WELL. SHE IS VERY NONCOMPLIANT AND UNCOOPERATIVE Comment Review of Relevant I have reviewed the following items chante (where applicable) has been applied. Labs Laboratory Tests Test 10/24/18 08:15 10/24/18 08:27 10/24/18 08:55 10/24/18 10:16 O2 Saturation 93 % (92-99) Arterial Blood pH 7.28 (7.35-7.45) Arterial Blood pCO2 at Patient Temp 45 mmHg (35-46) Arterial Blood pO2 at Patient Temp 85 mmHg (65-108) Arterial Blood HCO3 20 mmol/L (21-28) Arterial Blood Base Excess -6 mmol/L (-3-3) FiO2 28% pt on 2ln.c. Glucose (Fingerstick) 251 mg/dL (70-99) Body Fluid Source Peritoneal Body Fluid Color Yellow Body Fluid Clarity Hazy Body Fluid Nucleated Cells 127 /cmm (Not Established) Body Fluid Mononuclear WBCs (%) 74 % Body Fluid Polymorphonuclear Cells 26 % Body Fluid Total RBCs Counted 8301 /cmm (Not Established) Body Fluid Total Protein 0.5 g/dL (.) Body Fluid Lactate Dehydrogenase 67 IU/L (.) White Blood Count 12.2 x10^3/uL (4.0-11.0) Red Blood Count 2.37 x10^6/uL (3.50-5.40) Hemoglobin 7.6 g/dL (12.0-15.5) Hematocrit 23.5 % (36.0-47.0) Mean Corpuscular Volume 99 fL (79-100) Mean Corpuscular Hemoglobin 32 pg (25-35) Mean Corpuscular Hemoglobin Concent 33 g/dL (31-37) Red Cell Distribution Width 18.5 % (11.5-14.5) Platelet Count 139 x10^3/uL (140-400) Neutrophils (%) (Auto) 88 % (31-73) Lymphocytes (%) (Auto) 3 % (24-48) Monocytes (%) (Auto) 9 % (0-9) Eosinophils (%) (Auto) 0 % (0-3) Basophils (%) (Auto) 0 % (0-3) Neutrophils # (Auto) 10.7 x10^3uL (1.8-7.7) Lymphocytes # (Auto) 0.4 x10^3/uL (1.0-4.8) Monocytes # (Auto) 1.1 x10^3/uL (0.0-1.1) Eosinophils # (Auto) 0.0 x10^3/uL (0.0-0.7) Basophils # (Auto) 0.0 x10^3/uL (0.0-0.2) Segmented Neutrophils % 94 % (35-66) Band Neutrophils % 1 % (0-9) Lymphocytes % 4 % (24-48) Monocytes % 1 % (0-10) Platelet Estimate Adequate (ADEQUATE) Polychromasia Present Anisocytosis Present Prothrombin Time 20.0 SEC (11.7-14.0) Prothromb Time International Ratio 1.7 (0.8-1.1) Activated Partial Thromboplast Time 34 SEC (24-38) Sodium Level 135 mmol/L (136-145) Potassium Level 4.1 mmol/L (3.5-5.1) Chloride Level 99 mmol/L (98-107) Carbon Dioxide Level 24 mmol/L (21-32) Anion Gap 12 (6-14) Blood Urea Nitrogen 48 mg/dL (7-20) Creatinine 4.7 mg/dL (0.6-1.0) Estimated GFR (Cockcroft-Gault) 9.4 BUN/Creatinine Ratio 10 (6-20) Glucose Level 285 mg/dL (70-99) Lactic Acid Level 3.6 mmol/L (0.4-2.0) Calcium Level 8.5 mg/dL (8.5-10.1) Total Bilirubin 1.8 mg/dL (0.2-1.0) Aspartate Amino Transf (AST/SGOT) 30 U/L (15-37) Alanine Aminotransferase (ALT/SGPT) 21 U/L (14-59) Alkaline Phosphatase 211 U/L (46-116) Troponin I Quantitative 0.042 ng/mL (0.000-0.055) IW-[id number]-J-Type Natriuretic Peptide 4024 pg/mL (0-124) Total Protein 6.0 g/dL (6.4-8.2) Albumin 2.6 g/dL (3.4-5.0) Albumin/Globulin Ratio 0.8 (1.0-1.7) Test 10/24/18 12:02 10/24/18 12:19 10/24/18 12:30 10/24/18 14:00 Nasal Screen MRSA (PCR) Negative (Negative) Glucose (Fingerstick) 229 mg/dL (70-99) Body Fluid Total Protein 2.0 g/dL (.) Body Fluid Lactate Dehydrogenase 164 IU/L (.) Lactic Acid Level 2.1 mmol/L (0.4-2.0) Ammonia 56 mcmol/L (11-34) Test 10/25/18 05:50 White Blood Count 13.4 x10^3/uL (4.0-11.0) Red Blood Count 3.22 x10^6/uL (3.50-5.40) Hemoglobin 10.2 g/dL (12.0-15.5) Hematocrit 30.3 % (36.0-47.0) Mean Corpuscular Volume 94 fL (79-100) Mean Corpuscular Hemoglobin 32 pg (25-35) Mean Corpuscular Hemoglobin Concent 34 g/dL (31-37) Red Cell Distribution Width 19.3 % (11.5-14.5) Platelet Count 109 x10^3/uL (140-400) Sodium Level 138 mmol/L (136-145) Potassium Level 3.9 mmol/L (3.5-5.1) Chloride Level 102 mmol/L (98-107) Carbon Dioxide Level 21 mmol/L (21-32) Anion Gap 15 (6-14) Blood Urea Nitrogen 50 mg/dL (7-20) Creatinine 5.0 mg/dL (0.6-1.0) Estimated GFR (Cockcroft-Gault) 8.8 BUN/Creatinine Ratio 10 (6-20) Glucose Level 282 mg/dL (70-99) Calcium Level 8.4 mg/dL (8.5-10.1) Total Bilirubin 4.1 mg/dL (0.2-1.0) Aspartate Amino Transf (AST/SGOT) 24 U/L (15-37) Alanine Aminotransferase (ALT/SGPT) 17 U/L (14-59) Alkaline Phosphatase 162 U/L (46-116) Total Protein 5.6 g/dL (6.4-8.2) Albumin 3.2 g/dL (3.4-5.0) Albumin/Globulin Ratio 1.3 (1.0-1.7) Laboratory Tests Test 10/24/18 14:00 10/25/18 05:50 Lactic Acid Level 2.1 mmol/L (0.4-2.0) Ammonia 56 mcmol/L (11-34) White Blood Count 13.4 x10^3/uL (4.0-11.0) Red Blood Count 3.22 x10^6/uL (3.50-5.40) Hemoglobin 10.2 g/dL (12.0-15.5) Hematocrit 30.3 % (36.0-47.0) Mean Corpuscular Volume 94 fL (79-100) Mean Corpuscular Hemoglobin 32 pg (25-35) Mean Corpuscular Hemoglobin Concent 34 g/dL (31-37) Red Cell Distribution Width 19.3 % (11.5-14.5) Platelet Count 109 x10^3/uL (140-400) Sodium Level 138 mmol/L (136-145) Potassium Level 3.9 mmol/L (3.5-5.1) Chloride Level 102 mmol/L (98-107) Carbon Dioxide Level 21 mmol/L (21-32) Anion Gap 15 (6-14) Blood Urea Nitrogen 50 mg/dL (7-20) Creatinine 5.0 mg/dL (0.6-1.0) Estimated GFR (Cockcroft-Gault) 8.8 BUN/Creatinine Ratio 10 (6-20) Glucose Level 282 mg/dL (70-99) Calcium Level 8.4 mg/dL (8.5-10.1) Total Bilirubin 4.1 mg/dL (0.2-1.0) Aspartate Amino Transf (AST/SGOT) 24 U/L (15-37) Alanine Aminotransferase (ALT/SGPT) 17 U/L (14-59) Alkaline Phosphatase 162 U/L (46-116) Total Protein 5.6 g/dL (6.4-8.2) Albumin 3.2 g/dL (3.4-5.0) Albumin/Globulin Ratio 1.3 (1.0-1.7) Microbiology 10/24/18 Blood Culture - Preliminary, Resulted NO GROWTH AFTER 1 DAY Medications Current Medications Sodium Chloride 1,000 ml @ 1,000 mls/hr 1X ONCE IV Last administered on 10/24/18at 10:00; Start 10/24/18 at 08:15; Stop 10/24/18 at 09:14; Status DC Lidocaine/Sodium Bicarbonate (Buffered Lidocaine 1%) 12 ml 1X ONCE IJ Last administered on 10/24/18at 09:30; Start 10/24/18 at 09:30; Stop 10/24/18 at 09:31; Status DC Albumin Human 100 ml @ 100 mls/hr 1X ONCE IV Last administered on 10/24/18at 09:30; Start 10/24/18 at 09:30; Stop 10/24/18 at 10:29; Status DC Albumin Human 100 ml @ 100 mls/hr 1X ONCE IV Last administered on 10/24/18at 11:38; Start 10/24/18 at 09:30; Stop 10/24/18 at 10:29; Status DC Albumin Human 100 ml @ 100 mls/hr 1X ONCE IV Last administered on 10/24/18at 09:20; Start 10/24/18 at 09:30; Stop 10/24/18 at 10:29; Status DC Fentanyl Citrate (Fentanyl 2ml Vial) 50 mcg 1X ONCE IV Last administered on 10/24/18at 11:42; Start 10/24/18 at 11:00; Stop 10/24/18 at 11:01; Status DC Piperacillin Sod/ Tazobactam Sod (Zosyn Per Pharmacy) 1 each PRN DAILY PRN MC SEE COMMENTS; Start 10/24/18 at 11:30 Piperacillin Sod/ Tazobactam Sod 2.25 gm/Sodium Chloride 50 ml @ 100 mls/hr Q8HRS IV Last administered on 10/25/18at 05:09; Start 10/24/18 at 12:00 Ondansetron HCl (Zofran) 4 mg PRN Q8HRS PRN IV NAUSEA/VOMITING; Start 10/24/18 at 11:45; Stop 10/25/18 at 09:05; Status DC Albuterol/ Ipratropium (Duoneb) 3 ml RTQID NEB Last administered on 10/25/18at 09:31; Start 10/24/18 at 12:00 Piperacillin Sod/ Tazobactam Sod (Zosyn Per Pharmacy) 1 each PRN DAILY PRN MC SEE COMMENTS; Start 10/24/18 at 12:00; Status UNV Sodium Chloride 500 ml @ 500 mls/hr 1X ONCE IV Last administered on 10/24/18at 13:29; Start 10/24/18 at 13:30; Stop 10/24/18 at 14:29; Status DC Norepinephrine Bitartrate 250 ml @ 1.875 mls/ hr CONT PRN IV SEE I/O RECORD Last administered on 10/24/18at 16:44; Start 10/24/18 at 13:30 Albumin Human 100 ml @ 100 mls/hr 1X ONCE IV Last administered on 10/24/18at 15:30; Start 10/24/18 at 15:30; Stop 10/24/18 at 16:29; Status DC Albumin Human 100 ml @ As Directed STK-MED ONCE IV ; Start 10/24/18 at 15:23; Stop 10/24/18 at 15:24; Status DC Fentanyl Citrate (Fentanyl 2ml Vial) 50 mcg PRN Q2HR PRN IV PAIN Last administered on 10/24/18at 17:05; Start 10/24/18 at 17:00 Insulin Glargine (Lantus) 40 units DAILY08 SQ Last administered on 10/25/18at 08:41; Start 10/25/18 at 08:00 Lactulose (Lactulose) 20 gm TID PO ; Start 10/24/18 at 21:00 Budesonide (Pulmicort) 0.5 mg RTBID NEB Last administered on 10/25/18at 09:31; Start 10/24/18 at 20:00 Midodrine (Proamatine) 5 mg BID92 PO Last administered on 10/25/18at 08:40; Start 10/25/18 at 09:00; Stop 10/25/18 at 09:07; Status DC Non-Formulary Medication (Midodrine Hcl ) 10 mg [id number] PO ; Start 10/24/18 at 18:00; Status UNV Acetaminophen/ Hydrocodone Bitart (Lortab 5/325) 1 tab PRN Q6HRS PRN PO PAIN; Start 10/24/18 at 18:30 Lactobacillus Rhamnosus (Culturelle) 1 cap BID PO Last administered on 10/25/18at 08:39; Start 10/25/18 at 09:00 Albumin Human 200 ml @ 200 mls/hr 1X PRN PRN IV Hypotension; Start 10/25/18 at 08:45; Stop 10/25/18 at 14:44 Sodium Chloride (Normal Saline Flush) 10 ml 1X PRN PRN IV AP catheter pack; Start 10/25/18 at 08:45; Stop 10/26/18 at 08:44 Sodium Chloride (Normal Saline Flush) 10 ml 1X PRN PRN IV CH[employer] catheter pack; Start 10/25/18 at 08:45; Stop 10/26/18 at 08:44 Sodium Chloride 1,000 ml @ 400 mls/hr Q2H30M PRN IV PATENCY; Start 10/25/18 at 08:42; Stop 10/25/18 at 20:41 Info (PHARMACY MONITORING -- do not chart) 1 each PRN DAILY PRN MC SEE COMMENTS; Start 10/25/18 at 08:45; Status UNV Info (PHARMACY MONITORING -- do not chart) 1 each PRN DAILY PRN MC SEE COMMENTS; Start 10/25/18 at 08:45 Ondansetron HCl (Zofran) 4 mg PRN Q6HRS PRN IV NAUSEA/VOMITING; Start 10/25/18 at 09:15 Guaifenesin (Robitussin Dm) 10 ml PRN Q6HRS PRN PO COUGH; Start 10/25/18 at 09:15 Clotrimazole (Mycelex) 10 mg BID MM ; Start 10/25/18 at 09:15 Diphenhydramine HCl (Benadryl) 25 mg PRN Q6HRS PRN PO ITCHING; Start 10/25/18 at 09:15 Nystatin (Mycostatin) 1 efe BID TP Last administered on 10/25/18at 13:33; Start 10/25/18 at 09:30 Pantoprazole Sodium (Protonix) 40 mg DAILYAC PO ; Start 10/25/18 at 11:30 Phenyleph/Shark Oil/Min Oil/Petrol (Preparation H) 1 efe PRN QID PRN RC RECTAL PAIN; Start 10/25/18 at 09:15 Rifaximin (Xifaxan) 550 mg BID PO ; Start 10/25/18 at 10:00 Non-Formulary Medication (Albuterol Sulfate (Albuterol Sulfate Conc Neb Soln)) 2.5 mg Q6HRS PRN NEB SHORTNESS OF BREATH; Start 10/25/18 at 09:15; Status UNV Benzonatate (Tessalon Perle) 100 mg PRN Q6HRS PRN PO COUGH; Start 10/25/18 at 14:00 Calcium Acetate (Phoslo) 667 mg TIDWMEALS PO ; Start 10/25/18 at 12:00 Calcium/Vitamin D (Oscal D 500mg/ 200uts) 1 tab DAILY08 PO ; Start 10/25/18 at 10:00 Vitamin B Complex/ Vitamin C (Tasia-Meliton) 1 tab DAILY PO ; Start 10/25/18 at 10:00 Vitamin B Complex (Shiva B) 1 tab DAILY PO ; Start 10/25/18 at 10:00 Levothyroxine Sodium (Synthroid) 300 mcg DAILY06 PO ; Start 10/25/18 at 10:30 Midodrine (Proamatine) 10 mg [id number] PO ; Start 10/25/18 at 13:00 Albuterol Sulfate (Ventolin Neb Soln) 2.5 mg PRN Q6HRS PRN NEB SHORTNESS OF BREATH; Start 10/25/18 at 09:45 Active Scripts Active Major-Prep Hemorrhoidal Oint (Phenyleph/Mineral Oil/Petrolat) 57 Gm Oint.appl 1 Efe RC PRN QID PRN 14 Days Nystatin 15 Gm Oint...g. 1 Efe TP BID 30 Days Clotrimazole 10 Mg Vielka 10 Mg MM BID 10 Days Pantoprazole Sodium (Pantoprazole Sodium) 40 Mg Tablet.dr 40 Mg PO DAILYAC 3 0 Days Benzonatate 100 Mg Capsule 100 Mg PO PRN Q6HRS PRN 10 Days Hydrocodone-Apap 5-325 (Hydrocodone Bit/Acetaminophen) 1 Tab Tablet 1 Tab PO PRN Q6HRS PRN 30 Days Proair Hfa (Albuterol Sulfate) 8.5 Gm Hfa.aer.ad 2.5 Mg NEB PRN Q6HRS PRN 30 Days Levaquin (Levofloxacin) 500 Mg Tablet 0.5 Tab PO DAILY Midodrine Hcl 5 Mg Tablet 10 Mg PO [id number] 14 Days Reported Midodrine Hcl 5 Mg Tablet 5 Mg PO [id number] Benadryl (Diphenhydramine Hcl) 25 Mg Capsule 25 Mg PO PRN Q6HRS PRN Calcium Acetate 667 Mg Tablet 667 Mg PO TIDWMEALS Dialyvite Tablet (Folic Acid/Vitamin B Comp W-C) 1 Each Tablet 1 Each PO QMWF Omeprazole 40 Mg Capsule. 1 Cap PO DAILY Xifaxan (Rifaximin) 550 Mg Tablet 1 Tab PO BID Fusion Plus Capsule (Iron,Fum&Ps/Fa/Vit B&C#18/L.ca) 1 Each Capsule 1 Each PO DAILY Albuterol Sulfate Conc Neb Soln (Albuterol Sulfate) 2.5 Mg/0.5 Ml Vial.neb 2.5 Mg NEB Q6HRS PRN Lactulose 20 Gm/30 Ml Solution 20 Gm PO TID Lantus Solostar (Insulin Glargine,Hum.rec.anlog) 100 Unit/1 Ml Insuln.pen 40 Units SQ DAILY08 SSI Calcium + Vitamin D Tablet (Calcium Carbonate/Vitamin D3) 1 Each Tablet 1 Each PO DAILY Albuterol Sulfate Hfa Inhaler (Albuterol Sulfate) 8.5 Gm Hfa.aer.ad 8.5 Gm IH PRN Q6HRS PRN Novolog Flexpen (Insulin Aspart) 100 Unit/1 Ml Insuln.pen 0 SQ TIDAC 0-149: 0 units 150-199: 2 units 200-249: 4 units 250-299: 6 units 300-349: 8 units 350-399: 10 units >400: Call Synthroid (Levothyroxine Sodium) 25 Mcg Tablet 300 Mcg PO DAILY Flovent 110MCG Hfa (Fluticasone Propionate) 12 Gm Aer.w.adap 1 Puff IH DAILY Vitals/I & O Vital Sign - Last 24 Hours 10/24/18 10/24/18 10/24/18 10/24/18 15:18 15:28 16:00 16:18 Temp 98.0 98.0 Pulse 89 88 Resp 22 B/P (MAP) 77/56 (63) 79/54 (62) Pulse Ox 96 99 92 O2 Delivery Nasal Cannula Nasal Cannula Nasal Cannula Nasal Cannula O2 Flow Rate 2.0 2.0 3.0 2.0 10/24/18 10/24/18 10/24/18 10/24/18 16:30 16:44 16:45 17:00 Pulse 90 93 91 Resp B/P (MAP) 71/33 (46) 33/ 75/39 (51) 85/61 (69) Pulse Ox 93 93 92 O2 Delivery Nasal Cannula O2 Flow Rate 2.0 2.0 2.0 10/24/18 10/24/18 10/24/18 10/24/18 17:05 17:35 17:42 18:05 Pulse 94 88 Resp B/P (MAP) 95/68 (77) 106/46 Pulse Ox 93 93 93 O2 Delivery Nasal Cannula Nasal Cannula O2 Flow Rate 2.0 2.0 2.0 10/24/18 10/24/18 10/24/18 10/24/18 18:19 18:39 18:46 20:00 Temp 97.6 97.6 Pulse 95 92 91 90 Resp 22 B/P (MAP) 106/56 (73) 80/49 (59) 94/44 (61) 91/49 (63) Pulse Ox 95 96 97 95 O2 Delivery Nasal Cannula Nasal Cannula Nasal Cannula O2 Flow Rate 3.0 2.0 2.0 2.0 10/24/18 10/24/18 10/24/18 10/24/18 20:00 21:00 22:00 23:00 Pulse 95 91 90 Resp 21 B/P (MAP) 89/42 (58) 118/70 (86) 102/55 (71) Pulse Ox 95 97 97 O2 Delivery Nasal Cannula Nasal Cannula Nasal Cannula Nasal Cannula O2 Flow Rate 3.0 3.0 2.0 2.0 10/25/18 10/25/18 10/25/18 10/25/18 00:00 00:01 01:00 02:00 Temp 97.8 97.8 Pulse 89 89 88 Resp 21 B/P (MAP) 102/57 (72) 99/50 (66) 89/53 (65) Pulse Ox 95 97 97 O2 Delivery Nasal Cannula Nasal Cannula Nasal Cannula Nasal Cannula O2 Flow Rate 3.0 2.0 2.0 2.0 10/25/18 10/25/18 10/25/18 10/25/18 03:00 04:00 04:00 05:01 Temp 97.7 97.7 Pulse 88 89 87 Resp B/P (MAP) 95/53 (67) 97/51 (66) 95/50 (65) Pulse Ox 96 95 97 O2 Delivery Nasal Cannula Nasal Cannula Nasal Cannula Nasal Cannula O2 Flow Rate 2.0 2.0 3.0 2.0 10/25/18 10/25/18 10/25/18 10/25/18 06:00 07:00 07:30 07:45 Pulse 81 94 92 88 Resp B/P (MAP) 81/61 (68) 107/68 (81) 98/56 (70) 93/67 (76) Pulse Ox 97 98 O2 Delivery Nasal Cannula Nasal Cannula O2 Flow Rate 2.0 2.0 10/25/18 10/25/18 10/25/18 10/25/18 08:00 08:00 08:40 08:55 Temp 97.8 97.8 Pulse 92 92 92 Resp 20 B/P (MAP) 87/51 (63) 87/51 81/34 (50) Pulse Ox 97 O2 Delivery Nasal Cannula Nasal Cannula O2 Flow Rate 2.0 2.0 10/25/18 10/25/18 10/25/18 10/25/18 09:00 09:15 09:32 09:45 Pulse 92 92 90 Resp B/P (MAP) 77/33 (48) 93/35 (54) 86/40 (55) Pulse Ox 95 97 O2 Delivery Nasal Cannula Nasal Cannula O2 Flow Rate 2.0 2.0 10/25/18 10/25/18 10/25/18 10/25/18 09:55 10:00 10:15 10:30 Pulse 92 93 100 98 B/P (MAP) 67/38 (48) 81/41 (54) 137/86 (103) 66/41 (49) 10/25/18 10/25/18 10/25/18 10/25/18 10:35 10:40 10:45 10:50 Pulse 100 100 102 100 B/P (MAP) 56/29 (38) 44/28 (33) 57/30 (39) 61/30 (40) 10/25/18 10/25/18 10/25/18 10:55 11:00 12:55 Pulse 102 101 Resp 22 B/P (MAP) 80/51 (61) 112/52 (72) Pulse Ox 95 98 O2 Delivery Nasal Cannula Nasal Cannula O2 Flow Rate 2.0 2.0 Intake and Output 10/24/18 10/24/18 10/25/18 14:59 22:59 06:59 Intake Total 1250 ml 1770 ml 768 ml Output Total 95856 ml 700 ml 20 ml Balance -9050 ml 1070 ml 748 ml LAWRENCE WAKEFIELD MD Oct 25, 2018 13:42
[2018-10-25] MEDS: PANTOPRAZOLE 40 MG TABLET.DR. PO SCH (13:43)
[2018-10-25] MEDS: CALCIUM ACETATE 667 MG CAPSULE PO SCH ×2 (13:43→17:22)
[2018-10-25] MEDS: MIDODRINE 5 MG TABLET PO SCH ×2 (13:43→17:22)
[2018-10-25] MEDS: rifAXIMin 550 MG TABLET PO SCH ×2 (13:43→21:00)
[2018-10-25] MEDS ORDERED: BENZONATATE 100 MG CAPSULE. PO PRN (14:00)
[2018-10-25] MEDS ORDERED: IV NORMAL SALINE 500ML BAG 500 ML IV ONE (14:00)
--- NOTE | 2018-10-25 14:22 | NUR ---
Pt refusing to take medications stating "that is way too many for me to take." Pt refuses to stay off of left side. Educated pt regarding Dr. Bobby order for incentive spirometer and staying off her left side to help get better. Pt refusing to follow directions at this time. Cleaning pt up after bowel movement, pt verbally aggressive to this nurse and dialysis nurse. Pt uncooperative. Daughter at bedside at this time. Will continue to monitor.
[2018-10-25] MEDS: NOREPINEPHRIN 8MG/250ML PREMIX 250 ML IV PRN (21:03)
[2018-10-26] VITALS (13 sets, daily range): BP systolic 76–114; BP diastolic 37–53
[2018-10-26] MEDS ORDERED: DEXTROSE 50% 25 GM / 50ML DISP.SYRIN. IV PRN ×2 (03:30→07:45)
[2018-10-26] MEDS: LEVOTHYROXINE 150 MCG TABLET PO SCH (05:43)
[2018-10-26] MEDS: PIPERACILLIN/TAZOBACTAM 2.25 GM in IV NORMAL SALINE 50ML 50 ML IV SCH ×3 (05:43→22:00)
[2018-10-26] MEDS: HYDROcodone/APAP 5/325MG 1 TAB TABLET PO PRN (05:45)
--- NOTE | 2018-10-26 06:19 | PDOC ---
PULMONARY PROGRESS NOTES Subjective off levo, sob better, has occ cough, ct 1770 cc drainage. Vitals Vital Signs Date Time Temp Pulse Resp B/P (MAP) Pulse Ox O2 Delivery O2 Flow Rate FiO2 10/26/18 06:00 86 20 93/41 (58) Room Air 10/26/18 04:00 99.0 97 99.0 10/25/18 18:45 2.0 Comments ros as mentioned as above other sys otherwise neg ROS: No Nausea, No Chest Pain General: Alert HEENT: Other (nc at perrl nose throat clear neck no lad, no thyromegaly) Lungs: Crackles, Other (l ct) Cardiovascular: S1, S2 Abdomen: Soft, Non-tender, Other Neuro Exam: Alert, Oriented Extremities: No Edema, Other Skin: Warm Labs Laboratory Tests Test 10/24/18 08:15 10/24/18 08:27 10/24/18 08:55 10/24/18 10:16 O2 Saturation 93 % (92-99) Arterial Blood pH 7.28 (7.35-7.45) Arterial Blood pCO2 at Patient Temp 45 mmHg (35-46) Arterial Blood pO2 at Patient Temp 85 mmHg (65-108) Arterial Blood HCO3 20 mmol/L (21-28) Arterial Blood Base Excess -6 mmol/L (-3-3) FiO2 28% pt on 2ln.c. Glucose (Fingerstick) 251 mg/dL (70-99) Body Fluid Source Peritoneal Body Fluid Color Yellow Body Fluid Clarity Hazy Body Fluid Nucleated Cells 127 /cmm (Not Established) Body Fluid Mononuclear WBCs (%) 74 % Body Fluid Polymorphonuclear Cells 26 % Body Fluid Total RBCs Counted 8301 /cmm (Not Established) Body Fluid Total Protein 0.5 g/dL (.) Body Fluid Lactate Dehydrogenase 67 IU/L (.) White Blood Count 12.2 x10^3/uL (4.0-11.0) Red Blood Count 2.37 x10^6/uL (3.50-5.40) Hemoglobin 7.6 g/dL (12.0-15.5) Hematocrit 23.5 % (36.0-47.0) Mean Corpuscular Volume 99 fL (79-100) Mean Corpuscular Hemoglobin 32 pg (25-35) Mean Corpuscular Hemoglobin Concent 33 g/dL (31-37) Red Cell Distribution Width 18.5 % (11.5-14.5) Platelet Count 139 x10^3/uL (140-400) Neutrophils (%) (Auto) 88 % (31-73) Lymphocytes (%) (Auto) 3 % (24-48) Monocytes (%) (Auto) 9 % (0-9) Eosinophils (%) (Auto) 0 % (0-3) Basophils (%) (Auto) 0 % (0-3) Neutrophils # (Auto) 10.7 x10^3uL (1.8-7.7) Lymphocytes # (Auto) 0.4 x10^3/uL (1.0-4.8) Monocytes # (Auto) 1.1 x10^3/uL (0.0-1.1) Eosinophils # (Auto) 0.0 x10^3/uL (0.0-0.7) Basophils # (Auto) 0.0 x10^3/uL (0.0-0.2) Segmented Neutrophils % 94 % (35-66) Band Neutrophils % 1 % (0-9) Lymphocytes % 4 % (24-48) Monocytes % 1 % (0-10) Platelet Estimate Adequate (ADEQUATE) Polychromasia Present Anisocytosis Present Prothrombin Time 20.0 SEC (11.7-14.0) Prothromb Time International Ratio 1.7 (0.8-1.1) Activated Partial Thromboplast Time 34 SEC (24-38) Sodium Level 135 mmol/L (136-145) Potassium Level 4.1 mmol/L (3.5-5.1) Chloride Level 99 mmol/L (98-107) Carbon Dioxide Level 24 mmol/L (21-32) Anion Gap 12 (6-14) Blood Urea Nitrogen 48 mg/dL (7-20) Creatinine 4.7 mg/dL (0.6-1.0) Estimated GFR (Cockcroft-Gault) 9.4 BUN/Creatinine Ratio 10 (6-20) Glucose Level 285 mg/dL (70-99) Lactic Acid Level 3.6 mmol/L (0.4-2.0) Calcium Level 8.5 mg/dL (8.5-10.1) Total Bilirubin 1.8 mg/dL (0.2-1.0) Aspartate Amino Transf (AST/SGOT) 30 U/L (15-37) Alanine Aminotransferase (ALT/SGPT) 21 U/L (14-59) Alkaline Phosphatase 211 U/L (46-116) Troponin I Quantitative 0.042 ng/mL (0.000-0.055) ES-Cds-D-Type Natriuretic Peptide 4024 pg/mL (0-124) Total Protein 6.0 g/dL (6.4-8.2) Albumin 2.6 g/dL (3.4-5.0) Albumin/Globulin Ratio 0.8 (1.0-1.7) Test 10/24/18 12:02 10/24/18 12:19 10/24/18 12:30 10/24/18 14:00 Nasal Screen MRSA (PCR) Negative (Negative) Glucose (Fingerstick) 229 mg/dL (70-99) Body Fluid Total Protein 2.0 g/dL (.) Body Fluid Lactate Dehydrogenase 164 IU/L (.) Lactic Acid Level 2.1 mmol/L (0.4-2.0) Ammonia 56 mcmol/L (11-34) Test 10/25/18 05:50 10/25/18 18:35 10/26/18 03:12 White Blood Count 13.4 x10^3/uL (4.0-11.0) Red Blood Count 3.22 x10^6/uL (3.50-5.40) Hemoglobin 10.2 g/dL (12.0-15.5) Hematocrit 30.3 % (36.0-47.0) Mean Corpuscular Volume 94 fL (79-100) Mean Corpuscular Hemoglobin 32 pg (25-35) Mean Corpuscular Hemoglobin Concent 34 g/dL (31-37) Red Cell Distribution Width 19.3 % (11.5-14.5) Platelet Count 109 x10^3/uL (140-400) Sodium Level 138 mmol/L (136-145) Potassium Level 3.9 mmol/L (3.5-5.1) Chloride Level 102 mmol/L (98-107) Carbon Dioxide Level 21 mmol/L (21-32) Anion Gap 15 (6-14) Blood Urea Nitrogen 50 mg/dL (7-20) Creatinine 5.0 mg/dL (0.6-1.0) Estimated GFR (Cockcroft-Gault) 8.8 BUN/Creatinine Ratio 10 (6-20) Glucose Level 282 mg/dL (70-99) Calcium Level 8.4 mg/dL (8.5-10.1) Total Bilirubin 4.1 mg/dL (0.2-1.0) Aspartate Amino Transf (AST/SGOT) 24 U/L (15-37) Alanine Aminotransferase (ALT/SGPT) 17 U/L (14-59) Alkaline Phosphatase 162 U/L (46-116) Total Protein 5.6 g/dL (6.4-8.2) Albumin 3.2 g/dL (3.4-5.0) Albumin/Globulin Ratio 1.3 (1.0-1.7) Glucose (Fingerstick) 242 mg/dL (70-99) 322 mg/dL (70-99) Laboratory Tests Test 10/25/18 18:35 10/26/18 03:12 Glucose (Fingerstick) 242 mg/dL (70-99) 322 mg/dL (70-99) Medications Active Scripts Medications Dose Route/Sig Max Daily Dose Days Date Category Dose Instructions Major-Prep Hemorrhoidal Oint (Phenyleph/Mineral Oil/Petrolat) 57 Gm Oint.appl 1 Efe RC PRN QID PRN 14 10/21/18 Rx Nystatin 15 Gm Oint...g. 1 Efe TP BID 30 10/21/18 Rx Clotrimazole 10 Mg Vielka 10 Mg MM BID 10 10/21/18 Rx Pantoprazole Sodium (Pantoprazole Sodium) 40 Mg Tablet.dr 40 Mg PO DAILYAC 30 10/21/18 Rx Benzonatate 100 Mg Capsule 100 Mg PO PRN Q6HRS PRN 10 10/21/18 Rx Hydrocodone-Apap 5-325 (Hydrocodone Bit/Acetaminophen) 1 Tab Tablet 1 Tab PO PRN Q6HRS PRN 30 10/21/18 Rx Proair Hfa (Albuterol Sulfate) 8.5 Gm Hfa.aer.ad 2.5 Mg NEB PRN Q6HRS PRN 30 10/21/18 Rx Midodrine Hcl 5 Mg Tablet 5 Mg PO [id number] 10/14/18 Reported Levaquin (Levofloxacin) 500 Mg Tablet 0.5 Tab PO DAILY 10/01/18 Rx Midodrine Hcl 5 Mg Tablet 10 Mg PO [id number] 14 09/10/18 Rx Benadryl (Diphenhydramine Hcl) 25 Mg Capsule 25 Mg PO PRN Q6HRS PRN 08/12/18 Reported Calcium Acetate 667 Mg Tablet 667 Mg PO TIDWMEALS 07/03/18 Reported Dialyvite Tablet (Folic Acid/Vitamin B Comp W-C) 1 Each Tablet 1 Each PO QMWF 07/03/18 Reported Omeprazole 40 Mg Capsule.dr 1 Cap PO DAILY 05/01/18 Reported Xifaxan (Rifaximin) 550 Mg Tablet 1 Tab PO BID 02/07/18 Reported Fusion Plus Capsule (Iron,Fum&Ps/Fa/Vit B&C#18/L.ca) 1 Each Capsule 1 Each PO DAILY 05/09/17 Reported Albuterol Sulfate Conc Neb Soln (Albuterol Sulfate) 2.5 Mg/0.5 Ml Vial.neb 2.5 Mg NEB Q6HRS PRN 08/03/15 Reported Lactulose 20 Gm/30 Ml Solution 20 Gm PO TID 08/03/15 Reported Lantus Solostar (Insulin Glargine,Hum.rec.anlog) 100 Unit/1 Ml Insuln.pen 40 Units SQ DAILY08 06/10/13 Reported SSI Calcium + Vitamin D Tablet (Calcium Carbonate/Vitamin D3) 1 Each Tablet 1 Each PO DAILY 06/02/13 Reported Albuterol Sulfate Hfa Inhaler (Albuterol Sulfate) 8.5 Gm Hfa.aer.ad 8.5 Gm IH PRN Q6HRS PRN 06/02/13 Reported Novolog Flexpen (Insulin Aspart) 100 Unit/1 Ml Insuln.pen 0 SQ TIDAC 06/02/13 Reported 0-149: 0 units 150-199: 2 units 200-249: 4 units 250-299: 6 units 300-349: 8 units 350-399: 10 units >400: Call Synthroid (Levothyroxine Sodium) 25 Mcg Tablet 300 Mcg PO DAILY 06/02/13 Reported Flovent 110MCG Hfa (Fluticasone Propionate) 12 Gm Aer.w.adap 1 Puff IH DAILY 06/02/13 Reported Comments cxr 10/26, reviewed Improving airspace opacities in the left hemithorax. Trace right pleural effusion. Impression . IMPRESSION: 1. Conhs-ud-ruorpoi hypoxic respiratory failure secondary to worsening left-sided pleural effusion, likely transudative in etiology. She had multiple thoracenteses in the past, which were transudate. 2. History of end-stage liver disease/cirrhosis related to nonalcoholic fatty liver. Has required multiple paracentesis and underwent another paracentesis today. 3. End-stage renal disease, on hemodialysis. 4. Chronic obstructive pulmonary disease. 5. Mild reactive leukocytosis. 6. Moderate protein-calorie malnutrition. 7. Coagulopathy secondary to cirrhosis. Plan . RECOMMENDATIONS: 1. Continue with present nasal cannula. 02 titration 2. Continue with present chest tube, has large chest tube output. pleural fluid transudated, fu rest of pf studies 3. Follow GI recommendations regarding her recurrent ascites. 4. Follow renal recommendation. 5. Agree with empiric antibiotics for now until pleural fluid cultures are back. 6. IS 7. Bronchodilators. 8. We will follow along with you. 9. Monitor blood pressure closely. discussed w rn, pt MYRANDA TANG MD Oct 26, 2018 06:18
[2018-10-26 06:41] LABS: BASO % 0 % (0-3); EOS # 0.1 x10^3/uL (0.0-0.7); EOS % 1 % (0-3); HEMATOCRIT 28.9 % (36.0-47.0); HEMOGLOBIN 9.6 g/dL (12.0-15.5); LYMPH # 0.4 x10^3/uL (1.0-4.8); LYMPH % 4 % (24-48); MEAN CORPUSCULAR HEMOGLOBIN 32 pg (25-35); MEAN CORPUSCULAR HGB CONC 33 g/dL (31-37); MEAN CORPUSCULAR VOLUME 96 fL (79-100); MONO % 10 % (0-9); NEUT # 8.8 x10^3uL (1.8-7.7); NEUT % 85 % (31-73); PLATELET COUNT 65 x10^3/uL (140-400); RED BLOOD COUNT 3.03 x10^6/uL (3.50-5.40); WHITE BLOOD COUNT 10.4 x10^3/uL (4.0-11.0)
[2018-10-26 06:50] LABS: CALCIUM 8.2 mg/dL (8.5-10.1); CREATININE 3.4 mg/dL (0.6-1.0); GFR 13.7
[2018-10-26] MEDS: PANTOPRAZOLE 40 MG TABLET.DR. PO SCH (07:32)
[2018-10-26] MEDS: rifAXIMin 550 MG TABLET PO SCH ×2 (07:32→21:00)
[2018-10-26] MEDS: MIDODRINE 5 MG TABLET PO SCH ×3 (07:32→17:26)
[2018-10-26] MEDS: CALCIUM CARB/VIT D3 500/200 TABLET. PO SCH (07:33)
[2018-10-26] MEDS: CLOTRIMAZOLE 10 MG TROCHE. MM SCH ×2 (07:33→21:00)
[2018-10-26] MEDS: LACTOBACILLUS RHAMNOSUS GG 1 CAPSULE. PO SCH ×2 (07:33→21:00)
[2018-10-26] MEDS: NYSTATIN 100,000 UNIT/GM TOPICAL OINTMENT 15GM TUBE. TP SCH ×2 (07:33→21:00)
[2018-10-26] MEDS: CALCIUM ACETATE 667 MG CAPSULE PO SCH ×3 (07:33→17:25)
[2018-10-26] MEDS: LACTULOSE 20 GM/30 ML SOLUTION. PO SCH ×3 (07:34→21:00)
[2018-10-26] MEDS: FOLIC/VIT B COMP W-C (RENAL) TABLET. PO SCH (07:34)
[2018-10-26] MEDS: VITAMIN B COMPLEX TABLET. PO SCH (07:34)
[2018-10-26] MEDS: INSULIN GLARGINE 300 UNITS/3 ML INSULN.PEN. SQ SCH (07:44)
[2018-10-26] MEDS: INSULIN LISPRO 300 UNITS/3 ML INSULN.PEN. SQ SCH ×3 (07:48→17:30)
[2018-10-26] MEDS ORDERED: INSULIN LISPRO 300 UNITS/3 ML INSULN.PEN. SQ SCH (08:00)
[2018-10-26] MEDS ORDERED: POTASSIUM CHLORIDE 20 MEQ TABLET.ER. PO ONE ×2 (08:00→10:00)
--- NOTE | 2018-10-26 08:35 | RAD ---
Exam performed: One view chest HISTORY: Pleural effusion. DATE OF SERVICE: 10/26/2018. COMPARISON: Single view chest from 10/25/2018. Single AP upright portable view chest findings: There is interval improvement in previously seen diffuse infiltrates involving the left hemithorax with improved aeration of the left upper lobe. The right lung stable. There is probable trace right pleural effusion. A right-sided portacatheter left-sided dialysis-type catheter are redemonstrated. IMPRESSION: Improving airspace opacities in the left hemithorax. Trace right pleural effusion. Electronically signed by: Sharon Zheng MD (10/26/2018 8:32 AM) [facility]
[2018-10-26] MEDS: BUDESONIDE 0.5 MG/2 ML NEBU. NEB SCH ×2 (08:46→19:55)
[2018-10-26] MEDS: IPRATRPIUM/ALBUTEROL 0.5/2.5MG 3 ML NEBU. NEB SCH ×4 (08:46→19:55)
--- NOTE | 2018-10-26 09:22 | PDOC ---
PROGRESS NOTES Chief Complaint Chief Complaint Hypovolemic shock status post large volume paracentesis, status post large- volume thoracentesis-10 L total 10/24/2018 ESRD on dialysis Saturday Anemia of ESRD Generalized weakness/functional quadriplegia on hospice Full code Hypotension on midodrine with normal TSH and cortisol recently Diabetes type 2 on insulin with A1c 6.8 Leukocytosis, SIRS WBC 13 HOSPICE History of Present Illness History of Present Illness Seen in ICU, off levo ON midodrine which i inc to 10 PO TID Did get albumin approx 100 g total status post large volume paracentesis and thoracentesis Patient is not complaining of anything HD days MWF - did get HD saturday On hospcie from home, FULL CODE TSH and cortisol are normal Hgb a1c - 6.8 plan Okay to transfer to a nonmonitored bed Continue midodrine PO for hypotension Has been refusing some of the meds namely lactulose etc.-having diarrhea one time from lactulose ( 1 LBM in a day) Potassium 3.0-replace orally Dialyze on Saturday per renal After which can discharge home with hospice on Saturday after dialysis Turn every 2 FULL CODE 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 Vitals Vitals Vital Signs Date Time Temp Pulse Resp B/P (MAP) Pulse Ox O2 Delivery O2 Flow Rate FiO2 10/26/18 08:46 Room Air 10/26/18 07:32 83 100/47 10/26/18 07:00 97.6 18 96 97.6 10/25/18 18:45 2.0 Physical Exam General: Alert, Other (REFUFING MEDS) Heart: Regular rate, Normal S1, Normal S2, No murmurs, Gallops Lungs: Crackles, Other (l ct) Abdomen: Normal bowel sounds, Soft, No tenderness, No hepatosplenomegaly, No masses Extremities: No clubbing, No cyanosis, No edema, Normal pulses, No tenderness/swelling Skin: No rashes, No breakdown Labs LABS Laboratory Tests Test 10/25/18 18:35 10/26/18 03:12 10/26/18 06:30 10/26/18 07:41 Glucose (Fingerstick) 242 mg/dL (70-99) 322 mg/dL (70-99) 200 mg/dL (70-99) White Blood Count 10.4 x10^3/uL (4.0-11.0) Red Blood Count 3.03 x10^6/uL (3.50-5.40) Hemoglobin 9.6 g/dL (12.0-15.5) Hematocrit 28.9 % (36.0-47.0) Mean Corpuscular Volume 96 fL (79-100) Mean Corpuscular Hemoglobin 32 pg (25-35) Mean Corpuscular Hemoglobin Concent 33 g/dL (31-37) Red Cell Distribution Width 20.0 % (11.5-14.5) Platelet Count 65 x10^3/uL (140-400) Neutrophils (%) (Auto) 85 % (31-73) Lymphocytes (%) (Auto) 4 % (24-48) Monocytes (%) (Auto) 10 % (0-9) Eosinophils (%) (Auto) 1 % (0-3) Basophils (%) (Auto) 0 % (0-3) Neutrophils # (Auto) 8.8 x10^3uL (1.8-7.7) Lymphocytes # (Auto) 0.4 x10^3/uL (1.0-4.8) Monocytes # (Auto) 1.0 x10^3/uL (0.0-1.1) Eosinophils # (Auto) 0.1 x10^3/uL (0.0-0.7) Basophils # (Auto) 0.0 x10^3/uL (0.0-0.2) Sodium Level 139 mmol/L (136-145) Potassium Level 3.0 mmol/L (3.5-5.1) Chloride Level 103 mmol/L (98-107) Carbon Dioxide Level 24 mmol/L (21-32) Anion Gap 12 (6-14) Blood Urea Nitrogen 26 mg/dL (7-20) Creatinine 3.4 mg/dL (0.6-1.0) Estimated GFR (Cockcroft-Gault) 13.7 Glucose Level 206 mg/dL (70-99) Calcium Level 8.2 mg/dL (8.5-10.1) Review of Systems Review of Systems Diarrhea, weak, the rest of ROS 14 point negative Assessment and Plan Assessmemt and Plan Problems Medical Problems: (1) Hypotension Status: Acute (2) Pleural effusion Status: Acute Comment Review of Relevant I have reviewed the following items chante (where applicable) has been applied. Labs Laboratory Tests Test 10/24/18 10:16 10/24/18 12:02 10/24/18 12:19 10/24/18 12:30 White Blood Count 12.2 x10^3/uL (4.0-11.0) Red Blood Count 2.37 x10^6/uL (3.50-5.40) Hemoglobin 7.6 g/dL (12.0-15.5) Hematocrit 23.5 % (36.0-47.0) Mean Corpuscular Volume 99 fL (79-100) Mean Corpuscular Hemoglobin 32 pg (25-35) Mean Corpuscular Hemoglobin Concent 33 g/dL (31-37) Red Cell Distribution Width 18.5 % (11.5-14.5) Platelet Count 139 x10^3/uL (140-400) Neutrophils (%) (Auto) 88 % (31-73) Lymphocytes (%) (Auto) 3 % (24-48) Monocytes (%) (Auto) 9 % (0-9) Eosinophils (%) (Auto) 0 % (0-3) Basophils (%) (Auto) 0 % (0-3) Neutrophils # (Auto) 10.7 x10^3uL (1.8-7.7) Lymphocytes # (Auto) 0.4 x10^3/uL (1.0-4.8) Monocytes # (Auto) 1.1 x10^3/uL (0.0-1.1) Eosinophils # (Auto) 0.0 x10^3/uL (0.0-0.7) Basophils # (Auto) 0.0 x10^3/uL (0.0-0.2) Segmented Neutrophils % 94 % (35-66) Band Neutrophils % 1 % (0-9) Lymphocytes % 4 % (24-48) Monocytes % 1 % (0-10) Platelet Estimate Adequate (ADEQUATE) Polychromasia Present Anisocytosis Present Prothrombin Time 20.0 SEC (11.7-14.0) Prothromb Time International Ratio 1.7 (0.8-1.1) Activated Partial Thromboplast Time 34 SEC (24-38) Sodium Level 135 mmol/L (136-145) Potassium Level 4.1 mmol/L (3.5-5.1) Chloride Level 99 mmol/L (98-107) Carbon Dioxide Level 24 mmol/L (21-32) Anion Gap 12 (6-14) Blood Urea Nitrogen 48 mg/dL (7-20) Creatinine 4.7 mg/dL (0.6-1.0) Estimated GFR (Cockcroft-Gault) 9.4 BUN/Creatinine Ratio 10 (6-20) Glucose Level 285 mg/dL (70-99) Lactic Acid Level 3.6 mmol/L (0.4-2.0) Calcium Level 8.5 mg/dL (8.5-10.1) Total Bilirubin 1.8 mg/dL (0.2-1.0) Aspartate Amino Transf (AST/SGOT) 30 U/L (15-37) Alanine Aminotransferase (ALT/SGPT) 21 U/L (14-59) Alkaline Phosphatase 211 U/L (46-116) Troponin I Quantitative 0.042 ng/mL (0.000-0.055) NQ-Sgt-H-Type Natriuretic Peptide 4024 pg/mL (0-124) Total Protein 6.0 g/dL (6.4-8.2) Albumin 2.6 g/dL (3.4-5.0) Albumin/Globulin Ratio 0.8 (1.0-1.7) Nasal Screen MRSA (PCR) Negative (Negative) Glucose (Fingerstick) 229 mg/dL (70-99) Body Fluid Total Protein 2.0 g/dL (.) Body Fluid Lactate Dehydrogenase 164 IU/L (.) Test 10/24/18 14:00 10/25/18 05:50 10/25/18 18:35 10/26/18 03:12 Lactic Acid Level 2.1 mmol/L (0.4-2.0) Ammonia 56 mcmol/L (11-34) White Blood Count 13.4 x10^3/uL (4.0-11.0) Red Blood Count 3.22 x10^6/uL (3.50-5.40) Hemoglobin 10.2 g/dL (12.0-15.5) Hematocrit 30.3 % (36.0-47.0) Mean Corpuscular Volume 94 fL (79-100) Mean Corpuscular Hemoglobin 32 pg (25-35) Mean Corpuscular Hemoglobin Concent 34 g/dL (31-37) Red Cell Distribution Width 19.3 % (11.5-14.5) Platelet Count 109 x10^3/uL (140-400) Sodium Level 138 mmol/L (136-145) Potassium Level 3.9 mmol/L (3.5-5.1) Chloride Level 102 mmol/L (98-107) Carbon Dioxide Level 21 mmol/L (21-32) Anion Gap 15 (6-14) Blood Urea Nitrogen 50 mg/dL (7-20) Creatinine 5.0 mg/dL (0.6-1.0) Estimated GFR (Cockcroft-Gault) 8.8 BUN/Creatinine Ratio 10 (6-20) Glucose Level 282 mg/dL (70-99) Calcium Level 8.4 mg/dL (8.5-10.1) Total Bilirubin 4.1 mg/dL (0.2-1.0) Aspartate Amino Transf (AST/SGOT) 24 U/L (15-37) Alanine Aminotransferase (ALT/SGPT) 17 U/L (14-59) Alkaline Phosphatase 162 U/L (46-116) Total Protein 5.6 g/dL (6.4-8.2) Albumin 3.2 g/dL (3.4-5.0) Albumin/Globulin Ratio 1.3 (1.0-1.7) Glucose (Fingerstick) 242 mg/dL (70-99) 322 mg/dL (70-99) Test 10/26/18 06:30 10/26/18 07:41 White Blood Count 10.4 x10^3/uL (4.0-11.0) Red Blood Count 3.03 x10^6/uL (3.50-5.40) Hemoglobin 9.6 g/dL (12.0-15.5) Hematocrit 28.9 % (36.0-47.0) Mean Corpuscular Volume 96 fL (79-100) Mean Corpuscular Hemoglobin 32 pg (25-35) Mean Corpuscular Hemoglobin Concent 33 g/dL (31-37) Red Cell Distribution Width 20.0 % (11.5-14.5) Platelet Count 65 x10^3/uL (140-400) Neutrophils (%) (Auto) 85 % (31-73) Lymphocytes (%) (Auto) 4 % (24-48) Monocytes (%) (Auto) 10 % (0-9) Eosinophils (%) (Auto) 1 % (0-3) Basophils (%) (Auto) 0 % (0-3) Neutrophils # (Auto) 8.8 x10^3uL (1.8-7.7) Lymphocytes # (Auto) 0.4 x10^3/uL (1.0-4.8) Monocytes # (Auto) 1.0 x10^3/uL (0.0-1.1) Eosinophils # (Auto) 0.1 x10^3/uL (0.0-0.7) Basophils # (Auto) 0.0 x10^3/uL (0.0-0.2) Sodium Level 139 mmol/L (136-145) Potassium Level 3.0 mmol/L (3.5-5.1) Chloride Level 103 mmol/L (98-107) Carbon Dioxide Level 24 mmol/L (21-32) Anion Gap 12 (6-14) Blood Urea Nitrogen 26 mg/dL (7-20) Creatinine 3.4 mg/dL (0.6-1.0) Estimated GFR (Cockcroft-Gault) 13.7 Glucose Level 206 mg/dL (70-99) Calcium Level 8.2 mg/dL (8.5-10.1) Glucose (Fingerstick) 200 mg/dL (70-99) Laboratory Tests Test 10/25/18 18:35 10/26/18 03:12 10/26/18 06:30 10/26/18 07:41 Glucose (Fingerstick) 242 mg/dL (70-99) 322 mg/dL (70-99) 200 mg/dL (70-99) White Blood Count 10.4 x10^3/uL (4.0-11.0) Red Blood Count 3.03 x10^6/uL (3.50-5.40) Hemoglobin 9.6 g/dL (12.0-15.5) Hematocrit 28.9 % (36.0-47.0) Mean Corpuscular Volume 96 fL (79-100) Mean Corpuscular Hemoglobin 32 pg (25-35) Mean Corpuscular Hemoglobin Concent 33 g/dL (31-37) Red Cell Distribution Width 20.0 % (11.5-14.5) Platelet Count 65 x10^3/uL (140-400) Neutrophils (%) (Auto) 85 % (31-73) Lymphocytes (%) (Auto) 4 % (24-48) Monocytes (%) (Auto) 10 % (0-9) Eosinophils (%) (Auto) 1 % (0-3) Basophils (%) (Auto) 0 % (0-3) Neutrophils # (Auto) 8.8 x10^3uL (1.8-7.7) Lymphocytes # (Auto) 0.4 x10^3/uL (1.0-4.8) Monocytes # (Auto) 1.0 x10^3/uL (0.0-1.1) Eosinophils # (Auto) 0.1 x10^3/uL (0.0-0.7) Basophils # (Auto) 0.0 x10^3/uL (0.0-0.2) Sodium Level 139 mmol/L (136-145) Potassium Level 3.0 mmol/L (3.5-5.1) Chloride Level 103 mmol/L (98-107) Carbon Dioxide Level 24 mmol/L (21-32) Anion Gap 12 (6-14) Blood Urea Nitrogen 26 mg/dL (7-20) Creatinine 3.4 mg/dL (0.6-1.0) Estimated GFR (Cockcroft-Gault) 13.7 Glucose Level 206 mg/dL (70-99) Calcium Level 8.2 mg/dL (8.5-10.1) Microbiology 10/24/18 Blood Culture - Preliminary, Resulted NO GROWTH AFTER 1 DAY Medications Current Medications Sodium Chloride 1,000 ml @ 1,000 mls/hr 1X ONCE IV Last administered on 10/24/18at 10:00; Start 10/24/18 at 08:15; Stop 10/24/18 at 09:14; Status DC Lidocaine/Sodium Bicarbonate (Buffered Lidocaine 1%) 12 ml 1X ONCE IJ Last administered on 10/24/18at 09:30; Start 10/24/18 at 09:30; Stop 10/24/18 at 09:31; Status DC Albumin Human 100 ml @ 100 mls/hr 1X ONCE IV Last administered on 10/24/18at 09:30; Start 10/24/18 at 09:30; Stop 10/24/18 at 10:29; Status DC Albumin Human 100 ml @ 100 mls/hr 1X ONCE IV Last administered on 10/24/18at 11:38; Start 10/24/18 at 09:30; Stop 10/24/18 at 10:29; Status DC Albumin Human 100 ml @ 100 mls/hr 1X ONCE IV Last administered on 10/24/18at 09:20; Start 10/24/18 at 09:30; Stop 10/24/18 at 10:29; Status DC Fentanyl Citrate (Fentanyl 2ml Vial) 50 mcg 1X ONCE IV Last administered on 10/24/18at 11:42; Start 10/24/18 at 11:00; Stop 10/24/18 at 11:01; Status DC Piperacillin Sod/ Tazobactam Sod (Zosyn Per Pharmacy) 1 each PRN DAILY PRN MC SEE COMMENTS; Start 10/24/18 at 11:30 Piperacillin Sod/ Tazobactam Sod 2.25 gm/Sodium Chloride 50 ml @ 100 mls/hr Q8HRS IV Last administered on 10/26/18at 05:43; Start 10/24/18 at 12:00 Ondansetron HCl (Zofran) 4 mg PRN Q8HRS PRN IV NAUSEA/VOMITING; Start 10/24/18 at 11:45; Stop 10/25/18 at 09:05; Status DC Albuterol/ Ipratropium (Duoneb) 3 ml RTQID NEB Last administered on 10/26/18at 08:46; Start 10/24/18 at 12:00 Piperacillin Sod/ Tazobactam Sod (Zosyn Per Pharmacy) 1 each PRN DAILY PRN MC SEE COMMENTS; Start 10/24/18 at 12:00; Status UNV Sodium Chloride 500 ml @ 500 mls/hr 1X ONCE IV Last administered on 10/24/18at 13:29; Start 10/24/18 at 13:30; Stop 10/24/18 at 14:29; Status DC Norepinephrine Bitartrate 250 ml @ 1.875 mls/ hr CONT PRN IV SEE I/O RECORD Last administered on 10/25/18at 21:03; Start 10/24/18 at 13:30; Stop 10/26/18 at 07:40; Status DC Albumin Human 100 ml @ 100 mls/hr 1X ONCE IV Last administered on 10/24/18at 1 5:30; Start 10/24/18 at 15:30; Stop 10/24/18 at 16:29; Status DC Albumin Human 100 ml @ As Directed STK-MED ONCE IV ; Start 10/24/18 at 15:23; Stop 10/24/18 at 15:24; Status DC Fentanyl Citrate (Fentanyl 2ml Vial) 50 mcg PRN Q2HR PRN IV PAIN Last administe red on 10/24/18at 17:05; Start 10/24/18 at 17:00 Insulin Glargine (Lantus) 40 units DAILY08 SQ Last administered on 10/26/18at 07:44; Start 10/25/18 at 08:00 Lactulose (Lactulose) 20 gm TID PO Last administered on 10/25/18at 13:42; Start 10/24/18 at 21:00 Budesonide (Pulmicort) 0.5 mg RTBID NEB Last administered on 10/26/18at 08:46; Start 10/24/18 at 20:00 Midodrine (Proamatine) 5 mg [id number] PO Last administered on 10/25/18at 08:40; Start 10/25/18 at 09:00; Stop 10/25/18 at 09:07; Status DC Non-Formulary Medication (Midodrine Hcl ) 10 mg [id number] PO ; Start 10/24/18 at 18:00; Status UNV Acetaminophen/ Hydrocodone Bitart (Lortab 5/325) 1 tab PRN Q6HRS PRN PO PAIN Last administered on 10/26/18at 05:45; Start 10/24/18 at 18:30 Lactobacillus Rhamnosus (Culturelle) 1 cap BID PO Last administered on 10/25/18at 08:39; Start 10/25/18 at 09:00 Albumin Human 200 ml @ 200 mls/hr 1X PRN PRN IV Hypotension; Start 10/25/18 at 08:45; Stop 10/25/18 at 14:44; Status DC Sodium Chloride (Normal Saline Flush) 10 ml 1X PRN PRN IV AP catheter pack; Start 10/25/18 at 08:45; Stop 10/26/18 at 08:44; Status DC Sodium Chloride (Normal Saline Flush) 10 ml 1X PRN PRN IV 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; Start 10/25/18 at 08:45; Stop 10/26/18 at 08:44; Status DC Sodium Chloride 1,000 ml @ 400 mls/hr Q2H30M PRN IV PATENCY; Start 10/25/18 at 08:42; Stop 10/25/18 at 20:41; Status DC Info (PHARMACY MONITORING -- do not chart) 1 each PRN DAILY PRN MC SEE COMMENTS; Start 10/25/18 at 08:45; Status UNV Info (PHARMACY MONITORING -- do not chart) 1 each PRN DAILY PRN MC SEE COMMENT S; Start 10/25/18 at 08:45 Ondansetron HCl (Zofran) 4 mg PRN Q6HRS PRN IV NAUSEA/VOMITING; Start 10/25/18 at 09:15 Guaifenesin (Robitussin Dm) 10 ml PRN Q6HRS PRN PO COUGH; Start 10/25/18 at 09:15 Clotrimazole (Mycelex) 10 mg BID MM Last administered on 10/26/18at 07:33; Start 10/25/18 at 09:15 Diphenhydramine HCl (Benadryl) 25 mg PRN Q6HRS PRN PO ITCHING; Start 10/25/18 at 09:15 Nystatin (Mycostatin) 1 efe BID TP Last administered on 10/26/18at 07:33; Start 10/25/18 at 09:30 Pantoprazole Sodium (Protonix) 40 mg DAILYAC PO Last administered on 10/26/18at 07:32; Start 10/25/18 at 11:30 Phenyleph/Shark Oil/Min Oil/Petrol (Preparation H) 1 efe PRN QID PRN RC RECTAL PAIN; Start 10/25/18 at 09:15 Rifaximin (Xifaxan) 550 mg BID PO Last administered on 10/26/18at 07:32; Start 10/25/18 at 10:00 Non-Formulary Medication (Albuterol Sulfate (Albuterol Sulfate Conc Neb Soln)) 2.5 mg Q6HRS PRN NEB SHORTNESS OF BREATH; Start 10/25/18 at 09:15; Status UNV Benzonatate (Tessalon Perle) 100 mg PRN Q6HRS PRN PO COUGH; Start 10/25/18 at 14:00 Calcium Acetate (Phoslo) 667 mg TIDWMEALS PO Last administered on 10/26/18at 07:33; Start 10/25/18 at 12:00 Calcium/Vitamin D (Oscal D 500mg/ 200uts) 1 tab DAILY08 PO ; Start 10/25/18 at 10:00 Vitamin B Complex/ Vitamin C (Tasia-Meliton) 1 tab DAILY PO ; Start 10/25/18 at 10:00 Vitamin B Complex (Shiva B) 1 tab DAILY PO ; Start 10/25/18 at 10:00 Levothyroxine Sodium (Synthroid) 300 mcg DAILY06 PO Last administered on 10/26/18at 05:43; Start 10/25/18 at 10:30 Midodrine (Proamatine) 10 mg [id number] PO Last administered on 10/26/18at 07:32; Start 10/25/18 at 13:00 Albuterol Sulfate (Ventolin Neb Soln) 2.5 mg PRN Q6HRS PRN NEB SHORTNESS OF BREATH; Start 10/25/18 at 09:45 Sodium Chloride 500 ml @ 500 mls/hr 1X ONCE IV Last administered on 10/25/18at 14:06; Start 10/25/18 at 14:00; Stop 10/25/18 at 14:59; Status DC Insulin Human Lispro (HumaLOG) 0-7 UNITS TIDWMEALS SQ ; Start 10/26/18 at 08:00; Stop 10/26/18 at 08:00; Status DC Dextrose (Dextrose 50%-Water Syringe) 12.5 gm PRN Q15MIN PRN IV SEE COMMENTS; Start 10/26/18 at 03:30; Stop 10/26/18 at 07:45; Status DC Potassium Chloride (Klor-Con) 20 meq 1X ONCE PO ; Start 10/26/18 at 10:00; Stop 10/26/18 at 10:01 Potassium Chloride (Klor-Con) 40 meq 1X ONCE PO ; Start 10/26/18 at 08:00; Stop 10/26/18 at 08:01; Status DC Insulin Human Lispro (HumaLOG) 0-9 UNITS TIDWMEALS SQ Last administered on 10/26/18at 07:48; Start 10/26/18 at 08:00 Dextrose (Dextrose 50%-Water Syringe) 12.5 gm PRN Q15MIN PRN IV SEE COMMENTS; Start 10/26/18 at 07:45 Active Scripts Active Major-Prep Hemorrhoidal Oint (Phenyleph/Mineral Oil/Petrolat) 57 Gm Oint.appl 1 Efe RC PRN QID PRN 14 Days Nystatin 15 Gm Oint...g. 1 Efe TP BID 30 Days Clotrimazole 10 Mg Vielka 10 Mg MM BID 10 Days Pantoprazole Sodium (Pantoprazole Sodium) 40 Mg Tablet.dr 40 Mg PO DAILYAC 30 Days Benzonatate 100 Mg Capsule 100 Mg PO PRN Q6HRS PRN 10 Days Hydrocodone-Apap 5-325 (Hydrocodone Bit/Acetaminophen) 1 Tab Tablet 1 Tab PO PRN Q6HRS PRN 30 Days Proair Hfa (Albuterol Sulfate) 8.5 Gm Hfa.aer.ad 2.5 Mg NEB PRN Q6HRS PRN 30 Days Levaquin (Levofloxacin) 500 Mg Tablet 0.5 Tab PO DAILY Midodrine Hcl 5 Mg Tablet 10 Mg PO [id number] 14 Days Reported Midodrine Hcl 5 Mg Tablet 5 Mg PO [id number] Benadryl (Diphenhydramine Hcl) 25 Mg Capsule 25 Mg PO PRN Q6HRS PRN Calcium Acetate 667 Mg Tablet 667 Mg PO TIDWMEALS Dialyvite Tablet (Folic Acid/Vitamin B Comp W-C) 1 Each Tablet 1 Each PO QMWF Omeprazole 40 Mg Capsule.dr 1 Cap PO DAILY Xifaxan (Rifaximin) 550 Mg Tablet 1 Tab PO BID Fusion Plus Capsule (Iron,Fum&Ps/Fa/Vit B&C#18/L.ca) 1 Each Capsule 1 Each PO DAILY Albuterol Sulfate Conc Neb Soln (Albuterol Sulfate) 2.5 Mg/0.5 Ml Vial.neb 2.5 Mg NEB Q6HRS PRN Lactulose 20 Gm/30 Ml Solution 20 Gm PO TID Lantus Solostar (Insulin Glargine,Hum.rec.anlog) 100 Unit/1 Ml Insuln.pen 40 Units SQ DAILY08 SSI Calcium + Vitamin D Tablet (Calcium Carbonate/Vitamin D3) 1 Each Tablet 1 Each PO DAILY Albuterol Sulfate Hfa Inhaler (Albuterol Sulfate) 8.5 Gm Hfa.aer.ad 8.5 Gm IH PRN Q6HRS PRN Novolog Flexpen (Insulin Aspart) 100 Unit/1 Ml Insuln.pen 0 SQ TIDAC 0-149: 0 units 150-199: 2 units 200-249: 4 units 250-299: 6 units 300-349: 8 units 350-399: 10 units >400: Call Synthroid (Levothyroxine Sodium) 25 Mcg Tablet 300 Mcg PO DAILY Flovent 110MCG Hfa (Fluticasone Propionate) 12 Gm Aer.w.adap 1 Puff IH DAILY Vitals/I & O Vital Sign - Last 24 Hours 10/25/18 10/25/18 10/25/18 10/25/18 09:32 09:45 09:55 10:00 Pulse 90 92 93 B/P (MAP) 86/40 (55) 67/38 (48) 81/41 (54) Pulse Ox 97 O2 Delivery Nasal Cannula O2 Flow Rate 2.0 10/25/18 10/25/18 10/25/18 10/25/18 10:15 10:30 10:35 10:40 Pulse 100 98 100 100 B/P (MAP) 137/86 (103) 66/41 (49) 56/29 (38) 44/28 (33) 10/25/18 10/25/18 10/25/18 10/25/18 10:45 10:50 10:55 11:00 Pulse 102 100 102 101 Resp 22 B/P (MAP) 57/30 (39) 61/30 (40) 80/51 (61) 112/52 (72) Pulse Ox 95 O2 Delivery Nasal Cannula O2 Flow Rate 2.0 10/25/18 10/25/18 10/25/18 10/25/18 12:00 12:00 12:55 13:00 Temp 97.8 97.8 Pulse 102 96 Resp 24 21 B/P (MAP) 92/52 (65) 112/62 (79) Pulse Ox 94 98 95 O2 Delivery Nasal Cannula Nasal Cannula Nasal Cannula Nasal Cannula O2 Flow Rate 2.0 2.0 2.0 2.0 10/25/18 10/25/18 10/25/18 10/25/18 13:15 13:30 13:43 13:45 Pulse 98 100 97 102 B/P (MAP) 114/55 (74) 99/46 (63) 99/46 114/48 (70) 10/25/18 10/25/18 10/25/18 10/25/18 14:00 14:15 14:30 14:45 Pulse 100 97 97 95 Resp 19 B/P (MAP) 120/59 (79) 101/50 (67) 98/39 (58) 73/55 (61) Pulse Ox 95 O2 Delivery Nasal Cannula O2 Flow Rate 2.0 10/25/18 10/25/18 10/25/18 10/25/18 15:00 15:15 16:00 16:00 Temp 98.1 98.1 Pulse 97 92 86 Resp 24 21 B/P (MAP) 78/46 (57) 105/48 (67) 100/48 (65) Pulse Ox 93 100 O2 Delivery Nasal Cannula Room Air Room Air O2 Flow Rate 2.0 10/25/18 10/25/18 10/25/18 10/25/18 16:45 17:00 17:22 18:00 Pulse 90 91 97 90 Resp 22 23 B/P (MAP) 119/59 (79) 91/47 (62) 97/50 95/47 (63) Pulse Ox 99 100 O2 Delivery Room Air Room Air 10/25/18 10/25/18 10/25/18 10/25/18 18:45 19:00 20:00 21:00 Temp 98.6 98.6 Pulse 92 97 96 Resp 23 21 28 B/P (MAP) 91/57 (68) 83/48 (60) 97/45 (62) Pulse Ox 98 98 98 O2 Delivery Nasal Cannula Room Air Room Air Room Air O2 Flow Rate 2.0 10/25/18 10/25/18 10/26/18 10/26/18 22:00 23:00 00:00 01:00 Temp 98.4 98.4 Pulse 93 93 90 90 Resp 23 13 18 20 B/P (MAP) 106/44 (64) 102/48 (66) 94/49 (64) 114/46 (68) Pulse Ox 99 O2 Delivery Room Air Room Air Room Air Room Air 10/26/18 10/26/18 10/26/18 10/26/18 02:00 03:00 04:00 05:00 Temp 99.0 99.0 Pulse 87 85 84 85 Resp 20 23 23 23 B/P (MAP) 110/48 (68) 103/46 (65) 89/44 (59) 81/40 (54) Pulse Ox 97 O2 Delivery Room Air Room Air Room Air Room Air 10/26/18 10/26/18 10/26/18 10/26/18 05:45 06:00 07:00 07:13 Temp 97.6 97.6 Pulse 86 83 Resp 23 20 18 B/P (MAP) 93/41 (58) 100/47 (64) Pulse Ox 96 O2 Delivery Room Air Room Air Room Air Room Air 10/26/18 10/26/18 07:32 08:46 Pulse 83 B/P (MAP) 100/47 O2 Delivery Room Air Intake and Output 10/25/18 10/25/18 10/26/18 15:00 23:00 07:00 Intake Total 530 ml 901.3 ml 612.8 ml Output Total 580 ml 850 ml 400 ml Balance -50 ml 51.3 ml 212.8 ml A[place] MD Oct 26, 2018 09:22
--- NOTE | 2018-10-26 09:30 | NUR ---
patient transferred to 209 from icu per bed. patient assessed at this time. new chest tube canister set up to -40 suction. patient on hourly blood pressures since patient recently off levophed drip. patient refusing to get off her left side. will continue to monitor.
[2018-10-26] MEDS ORDERED: POTASSIUM BICARB 20 MEQ EFFERVESCENT TABLET. PO ONE ×2 (11:00→13:00)
[2018-10-26] MEDS ORDERED: LIDO:MAALOX 1:1 20 ML SINGLE DOSE. SWSW ONE (19:00)
[2018-10-27 02:31] VITALS: BP 99/51
[2018-10-27] MEDS: LEVOTHYROXINE 150 MCG TABLET PO SCH ×2 (06:00→06:34)
[2018-10-27] MEDS: MIDODRINE 5 MG TABLET PO SCH ×3 (06:35→12:32)
[2018-10-27] MEDS: PIPERACILLIN/TAZOBACTAM 2.25 GM in IV NORMAL SALINE 50ML 50 ML IV SCH ×3 (06:35→22:12)
[2018-10-27 07:00] VITALS: BP 84/49
--- NOTE | 2018-10-27 07:52 | NUR ---
IP: Pt has a recent hx of Klebsiella, pneumoniae (R) to Meropenem on 09/07/18. Pt to be in contact precautions until there are 2 negative urine cultures 7 days apart without antibiotics.
[2018-10-27] MEDS: INSULIN GLARGINE 300 UNITS/3 ML INSULN.PEN. SQ SCH (08:00)
[2018-10-27] MEDS: INSULIN LISPRO 300 UNITS/3 ML INSULN.PEN. SQ SCH ×2 (08:00→12:00)
[2018-10-27] MEDS: IPRATRPIUM/ALBUTEROL 0.5/2.5MG 3 ML NEBU. NEB SCH ×4 (08:17→20:00)
[2018-10-27] MEDS: BUDESONIDE 0.5 MG/2 ML NEBU. NEB SCH ×2 (08:17→20:00)
[2018-10-27] MEDS: LACTULOSE 20 GM/30 ML SOLUTION. PO SCH ×3 (09:00→21:19)
--- NOTE | 2018-10-27 09:15 | NUR ---
Wound care Wound care consult for wound to buttocks. Pt has excoriation from IAD to bilateral buttocks as pt has chronic diarrhea. Pt refused to turn at this time due to discomfort in abd. Pt has red but blanchable areas on left lateral foot and ankle. No other wounds noted on full skin inspection. WC will continue to follow for possible changes. Pt refused P500 bed and heel medix boots.
[2018-10-27] MEDS: CLOTRIMAZOLE 10 MG TROCHE. MM SCH ×2 (09:30→21:18)
[2018-10-27] MEDS: CALCIUM ACETATE 667 MG CAPSULE PO SCH ×3 (09:30→17:00)
[2018-10-27] MEDS: VITAMIN B COMPLEX TABLET. PO SCH (09:30)
[2018-10-27] MEDS: FOLIC/VIT B COMP W-C (RENAL) TABLET. PO SCH (09:30)
[2018-10-27] MEDS: NYSTATIN 100,000 UNIT/GM TOPICAL OINTMENT 15GM TUBE. TP SCH ×2 (09:31→21:28)
[2018-10-27] MEDS: CALCIUM CARB/VIT D3 500/200 TABLET. PO SCH (09:31)
[2018-10-27] MEDS: rifAXIMin 550 MG TABLET PO SCH ×2 (09:31→21:18)
[2018-10-27] MEDS: PANTOPRAZOLE 40 MG TABLET.DR. PO SCH (09:31)
[2018-10-27] MEDS: LACTOBACILLUS RHAMNOSUS GG 1 CAPSULE. PO SCH ×2 (09:31→21:18)
--- NOTE | 2018-10-27 10:07 | PDOC ---
PULMONARY PROGRESS NOTES Subjective sob better, has occ cough, ct 900 cc drainage. / 24 hr Vitals Vital Signs Date Time Temp Pulse Resp B/P (MAP) Pulse Ox O2 Delivery O2 Flow Rate FiO2 10/27/18 08:17 96 Room Air 10/27/18 07:00 97.4 92 12 84/49 (61) 97.4 Comments ros as mentioned as above other sys otherwise neg ROS: No Nausea, No Chest Pain General: Alert HEENT: Other (nc at perrl nose throat clear neck no lad, no thyromegaly) Lungs: Other (decrease bases) Cardiovascular: S1, S2 Abdomen: Soft, Non-tender, Other Neuro Exam: Alert, Oriented Extremities: No Edema, Other Skin: Warm Labs Laboratory Tests Test 10/25/18 18:35 10/26/18 03:12 10/26/18 06:30 10/26/18 07:41 Glucose (Fingerstick) 242 mg/dL (70-99) 322 mg/dL (70-99) 200 mg/dL (70-99) White Blood Count 10.4 x10^3/uL (4.0-11.0) Red Blood Count 3.03 x10^6/uL (3.50-5.40) Hemoglobin 9.6 g/dL (12.0-15.5) Hematocrit 28.9 % (36.0-47.0) Mean Corpuscular Volume 96 fL (79-100) Mean Corpuscular Hemoglobin 32 pg (25-35) Mean Corpuscular Hemoglobin Concent 33 g/dL (31-37) Red Cell Distribution Width 20.0 % (11.5-14.5) Platelet Count 65 x10^3/uL (140-400) Neutrophils (%) (Auto) 85 % (31-73) Lymphocytes (%) (Auto) 4 % (24-48) Monocytes (%) (Auto) 10 % (0-9) Eosinophils (%) (Auto) 1 % (0-3) Basophils (%) (Auto) 0 % (0-3) Neutrophils # (Auto) 8.8 x10^3uL (1.8-7.7) Lymphocytes # (Auto) 0.4 x10^3/uL (1.0-4.8) Monocytes # (Auto) 1.0 x10^3/uL (0.0-1.1) Eosinophils # (Auto) 0.1 x10^3/uL (0.0-0.7) Basophils # (Auto) 0.0 x10^3/uL (0.0-0.2) Sodium Level 139 mmol/L (136-145) Potassium Level 3.0 mmol/L (3.5-5.1) Chloride Level 103 mmol/L (98-107) Carbon Dioxide Level 24 mmol/L (21-32) Anion Gap 12 (6-14) Blood Urea Nitrogen 26 mg/dL (7-20) Creatinine 3.4 mg/dL (0.6-1.0) Estimated GFR (Cockcroft-Gault) 13.7 Glucose Level 206 mg/dL (70-99) Calcium Level 8.2 mg/dL (8.5-10.1) Test 10/26/18 11:53 10/26/18 16:47 10/26/18 21:05 10/27/18 08:03 Glucose (Fingerstick) 128 mg/dL (70-99) 205 mg/dL (70-99) 227 mg/dL (70-99) 85 mg/dL (70-99) Laboratory Tests Test 10/26/18 11:53 10/26/18 16:47 10/26/18 21:05 10/27/18 08:03 Glucose (Fingerstick) 128 mg/dL (70-99) 205 mg/dL (70-99) 227 mg/dL (70-99) 85 mg/dL (70-99) Medications Active Scripts Medications Dose Route/Sig Max Daily Dose Days Date Category Dose Instructions Major-Prep Hemorrhoidal Oint (Phenyleph/Mineral Oil/Petrolat) 57 Gm Oint.appl 1 Efe RC PRN QID PRN 14 10/21/18 Rx Nystatin 15 Gm Oint...g. 1 Efe TP BID 30 10/21/18 Rx Clotrimazole 10 Mg Vielka 10 Mg MM BID 10 10/21/18 Rx Pantoprazole Sodium (Pantoprazole Sodium) 40 Mg Tablet.dr 40 Mg PO DAILYAC 30 10/21/18 Rx Benzonatate 100 Mg Capsule 100 Mg PO PRN Q6HRS PRN 10 10/21/18 Rx Hydrocodone-Apap 5-325 (Hydrocodone Bit/Acetaminophen) 1 Tab Tablet 1 Tab PO PRN Q6HRS PRN 30 10/21/18 Rx Proair Hfa (Albuterol Sulfate) 8.5 Gm Hfa.aer.ad 2.5 Mg NEB PRN Q6HRS PRN 30 10/21/18 Rx Midodrine Hcl 5 Mg Tablet 5 Mg PO [id number] 10/14/18 Reported Levaquin (Levofloxacin) 500 Mg Tablet 0.5 Tab PO DAILY 10/01/18 Rx Midodrine Hcl 5 Mg Tablet 10 Mg PO [id number] 14 09/10/18 Rx Benadryl (Diphenhydramine Hcl) 25 Mg Capsule 25 Mg PO PRN Q6HRS PRN 08/12/18 Reported Calcium Acetate 667 Mg Tablet 667 Mg PO TIDWMEALS 07/03/18 Reported Dialyvite Tablet (Folic Acid/Vitamin B Comp W-C) 1 Each Tablet 1 Each PO QMWF 07/03/18 Reported Omeprazole 40 Mg Capsule.dr 1 Cap PO DAILY 05/01/18 Reported Xifaxan (Rifaximin) 550 Mg Tablet 1 Tab PO BID 02/07/18 Reported Fusion Plus Capsule (Iron,Fum&Ps/Fa/Vit B&C#18/L.ca) 1 Each Capsule 1 Each PO DAILY 05/09/17 Reported Albuterol Sulfate Conc Neb Soln (Albuterol Sulfate) 2.5 Mg/0.5 Ml Vial.neb 2.5 Mg NEB Q6HRS PRN 08/03/15 Reported Lactulose 20 Gm/30 Ml Solution 20 Gm PO TID 08/03/15 Reported Lantus Solostar (Insulin Glargine,Hum.rec.anlog) 100 Unit/1 Ml Insuln.pen 40 Units SQ DAILY08 06/10/13 Reported SSI Calcium + Vitamin D Tablet (Calcium Carbonate/Vitamin D3) 1 Each Tablet 1 Each PO DAILY 06/02/13 Reported Albuterol Sulfate Hfa Inhaler (Albuterol Sulfate) 8.5 Gm Hfa.aer.ad 8.5 Gm IH PRN Q6HRS PRN 06/02/13 Reported Novolog Flexpen (Insulin Aspart) 100 Unit/1 Ml Insuln.pen 0 SQ TIDAC 06/02/13 Reported 0-149: 0 units 150-199: 2 units 200-249: 4 units 250-299: 6 units 300-349: 8 units 350-399: 10 units >400: Call Synthroid (Levothyroxine Sodium) 25 Mcg Tablet 300 Mcg PO DAILY 06/02/13 Reported Flovent 110MCG Hfa (Fluticasone Propionate) 12 Gm Aer.w.adap 1 Puff IH DAILY 06/02/13 Reported Comments cxr 10/26, reviewed Improving airspace opacities in the left hemithorax. Trace right pleural effusion. Impression . IMPRESSION: 1. [id number] hypoxic respiratory failure secondary to worsening left-sided pleural effusion, likely transudative in etiology. She had multiple thoracenteses in the past, which were transudate.Transudate again on recent analysis 2. History of end-stage liver disease/cirrhosis related to nonalcoholic fatty liver. Has required multiple paracentesis and underwent another paracentesis today. 3. End-stage renal disease, on hemodialysis. 4. Chronic obstructive pulmonary disease. 5. Mild reactive leukocytosis. 6. Moderate protein-calorie malnutrition. 7. Coagulopathy secondary to cirrhosis. Plan . RECOMMENDATIONS: 1. Continue with present nasal cannula. 02 titration 2. Continue with present chest tube, has large chest tube output. pleural fluid transudated, d/w DR Reynaga and Pt. she has been in hospice. wants to go home. PleurX catheter would be reasonable to do drainage by hospice team post dc. will consult IR 3. Follow GI recommendations regarding her recurrent ascites. 4. Follow renal recommendation. 5. Agree with empiric antibiotics for now until pleural fluid cultures are back. 6. IS 7. Bronchodilators. 8. We will follow along with you. 9. Monitor blood pressure closely. discussed w rn, pt and CRISTIAN MILES MD Oct 27, 2018 10:07
--- NOTE | 2018-10-27 10:10 | PDOC ---
PROGRESS NOTES Chief Complaint Chief Complaint Hypovolemic shock status post large volume paracentesis, status post large- volume thoracentesis-10 L total 10/24/2018 ESRD on dialysis Saturday Anemia of ESRD Generalized weakness/functional quadriplegia on hospice Full code Hypotension on midodrine with normal TSH and cortisol recently Diabetes type 2 on insulin with A1c 6.8 Leukocytosis, SIRS WBC 13 HOSPICE History of Present Illness History of Present Illness Off levophed, t/o ICU saturday Was on home hospice Just wants to go home and is refusing basic labs today prior to dialysis Still has a chest tube draining 900 mL of fluid Discussed with pulmonary, if patient would be agreeable Pleurx is an option - provide symptom relief because she gets paracentesis and thoracentesis almost every weekly Plan 2 visits today, discussed with her, agreeable to Pleurx for symptom relief We'll need to hold discharge today, needs a little bit of fluid prior to Pleurx catheter insertion by [facility] Dialysis today per renal [facility] home tomorrow after Pleurx catheter on home hospice Discussed with patient, RN and Dr. Mayfield She is full code despite being on hospice - I addressed that Saturday, she wanted full code Vitals Vitals Vital Signs Date Time Temp Pulse Resp B/P (MAP) Pulse Ox O2 Delivery O2 Flow Rate FiO2 10/27/18 08:17 96 Room Air 10/27/18 07:00 97.4 92 12 84/49 (61) 97.4 Physical Exam General: Alert, Other (REFUFING MEDS) Heart: Regular rate, Normal S1, Normal S2, No murmurs, Gallops Lungs: Other (decrease bases) Abdomen: Normal bowel sounds, Soft, No tenderness, No hepatosplenomegaly, No masses Extremities: No clubbing, No cyanosis, No edema, Normal pulses, No tenderness/swelling Skin: No rashes, No breakdown Labs LABS Laboratory Tests Test 10/26/18 11:53 10/26/18 16:47 10/26/18 21:05 10/27/18 08:03 Glucose (Fingerstick) 128 mg/dL (70-99) 205 mg/dL (70-99) 227 mg/dL (70-99) 85 mg/dL (70-99) Review of Systems Review of Systems SOA, weak, the rest of ROS 14 point negative Assessment and Plan Assessmemt and Plan Problems Medical Problems: (1) Acute and chronic respiratory failure Status: Acute (2) Hypotension Status: Acute (3) Pleural effusion Status: Acute Comment Review of Relevant I have reviewed the following items chante (where applicable) has been applied. Labs Laboratory Tests Test 10/25/18 18:35 10/26/18 03:12 10/26/18 06:30 10/26/18 07:41 Glucose (Fingerstick) 242 mg/dL (70-99) 322 mg/dL (70-99) 200 mg/dL (70-99) White Blood Count 10.4 x10^3/uL (4.0-11.0) Red Blood Count 3.03 x10^6/uL (3.50-5.40) Hemoglobin 9.6 g/dL (12.0-15.5) Hematocrit 28.9 % (36.0-47.0) Mean Corpuscular Volume 96 fL (79-100) Mean Corpuscular Hemoglobin 32 pg (25-35) Mean Corpuscular Hemoglobin Concent 33 g/dL (31-37) Red Cell Distribution Width 20.0 % (11.5-14.5) Platelet Count 65 x10^3/uL (140-400) Neutrophils (%) (Auto) 85 % (31-73) Lymphocytes (%) (Auto) 4 % (24-48) Monocytes (%) (Auto) 10 % (0-9) Eosinophils (%) (Auto) 1 % (0-3) Basophils (%) (Auto) 0 % (0-3) Neutrophils # (Auto) 8.8 x10^3uL (1.8-7.7) Lymphocytes # (Auto) 0.4 x10^3/uL (1.0-4.8) Monocytes # (Auto) 1.0 x10^3/uL (0.0-1.1) Eosinophils # (Auto) 0.1 x10^3/uL (0.0-0.7) Basophils # (Auto) 0.0 x10^3/uL (0.0-0.2) Sodium Level 139 mmol/L (136-145) Potassium Level 3.0 mmol/L (3.5-5.1) Chloride Level 103 mmol/L (98-107) Carbon Dioxide Level 24 mmol/L (21-32) Anion Gap 12 (6-14) Blood Urea Nitrogen 26 mg/dL (7-20) Creatinine 3.4 mg/dL (0.6-1.0) Estimated GFR (Cockcroft-Gault) 13.7 Glucose Level 206 mg/dL (70-99) Calcium Level 8.2 mg/dL (8.5-10.1) Test 10/26/18 11:53 10/26/18 16:47 10/26/18 21:05 10/27/18 08:03 Glucose (Fingerstick) 128 mg/dL (70-99) 205 mg/dL (70-99) 227 mg/dL (70-99) 85 mg/dL (70-99) Laboratory Tests Test 10/26/18 11:53 10/26/18 16:47 10/26/18 21:05 10/27/18 08:03 Glucose (Fingerstick) 128 mg/dL (70-99) 205 mg/dL (70-99) 227 mg/dL (70-99) 85 mg/dL (70-99) Microbiology 10/24/18 Blood Culture - Preliminary, Resulted NO GROWTH AFTER 2 DAYS 10/24/18 Anaerobic/Aerobic Culture, Resulted Pending 10/24/18 Anaerobic Culture Result 1 (JOSE), Resulted Pending 10/24/18 Aerobic Culture, Resulted Pending 10/24/18 Aerobic Culture Result 1 (JOSE), Resulted Pending 10/24/18 Gram Stain - Final, Resulted 10/24/18 Gram Stain Result 1 (JOSE) - Final, Resulted 10/24/18 Gram Stain Result 2 (JOSE) - Final, Resulted Medications Current Medications Sodium Chloride 1,000 ml @ 1,000 mls/hr 1X ONCE IV Last administered on 10/24/18at 10:00; Start 10/24/18 at 08:15; Stop 10/24/18 at 09:14; Status DC Lidocaine/Sodium Bicarbonate (Buffered Lidocaine 1%) 12 ml 1X ONCE IJ Last a dministered on 10/24/18at 09:30; Start 10/24/18 at 09:30; Stop 10/24/18 at 09:31; Status DC Albumin Human 100 ml @ 100 mls/hr 1X ONCE IV Last administered on 10/24/18at 09:30; Start 10/24/18 at 09:30; Stop 10/24/18 at 10:29; Status DC Albumin Human 100 ml @ 100 mls/hr 1X ONCE IV Last administered on 10/24/18at 11:38; Start 10/24/18 at 09:30; Stop 10/24/18 at 10:29; Status DC Albumin Human 100 ml @ 100 mls/hr 1X ONCE IV Last administered on 10/24/18at 09:20; Start 10/24/18 at 09:30; Stop 10/24/18 at 10:29; Status DC Fentanyl Citrate (Fentanyl 2ml Vial) 50 mcg 1X ONCE IV Last administered on 10/24/18at 11:42; Start 10/24/18 at 11:00; Stop 10/24/18 at 11:01; Status DC Piperacillin Sod/ Tazobactam Sod (Zosyn Per Pharmacy) 1 each PRN DAILY PRN MC SEE COMMENTS; Start 10/24/18 at 11:30 Piperacillin Sod/ Tazobactam Sod 2.25 gm/Sodium Chloride 50 ml @ 100 mls/hr Q8HRS IV Last administered on 10/27/18at 06:35; Start 10/24/18 at 12:00 Ondansetron HCl (Zofran) 4 mg PRN Q8HRS PRN IV NAUSEA/VOMITING; Start 10/24/18 at 11:45; Stop 10/25/18 at 09:05; Status DC Albuterol/ Ipratropium (Duoneb) 3 ml RTQID NEB Last administered on 10/27/18at 08:17; Start 10/24/18 at 12:00 Piperacillin Sod/ Tazobactam Sod (Zosyn Per Pharmacy) 1 each PRN DAILY PRN MC SEE COMMENTS; Start 10/24/18 at 12:00; Status UNV Sodium Chloride 500 ml @ 500 mls/hr 1X ONCE IV Last administered on 10/24/18at 13:29; Start 10/24/18 at 13:30; Stop 10/24/18 at 14:29; Status DC Norepinephrine Bitartrate 250 ml @ 1.875 mls/ hr CONT PRN IV SEE I/O RECORD Last administered on 10/25/18at 21:03; Start 10/24/18 at 13:30; Stop 10/26/18 at 07:40; Status DC Albumin Human 100 ml @ 100 mls/hr 1X ONCE IV Last administered on 10/24/18at 15:30; Start 10/24/18 at 15:30; Stop 10/24/18 at 16:29; Status DC Albumin Human 100 ml @ As Directed STK-MED ONCE IV ; Start 10/24/18 at 15:23; Stop 10/24/18 at 15:24; Status DC Fentanyl Citrate (Fentanyl 2ml Vial) 50 mcg PRN Q2HR PRN IV PAIN Last administered on 10/24/18at 17:05; Start 10/24/18 at 17:00 Insulin Glargine (Lantus) 40 units DAILY08 SQ Last administered on 10/26/18at 07:44; Start 10/25/18 at 08:00 Lactulose (Lactulose) 20 gm TID PO Last administered on 10/25/18at 13:42; Start 10/24/18 at 21:00 Budesonide (Pulmicort) 0.5 mg RTBID NEB Last administered on 10/27/18 08:17; Start 10/24/18 at 20:00 Midodrine (Proamatine) 5 mg BID92 PO Last administered on 10/25/18at 08:40; Start 10/25/18 at 09:00; Stop 10/25/18 at 09:07; Status DC Non-Formulary Medication (Midodrine Hcl ) 10 mg [id number] PO ; Start 10/24/18 at 18:00; Status UNV Acetaminophen/ Hydrocodone Bitart (Lortab 5/325) 1 tab PRN Q6HRS PRN PO PAIN Last administered on 10/26/18at 05:45; Start 10/24/18 at 18:30 Lactobacillus Rhamnosus (Culturelle) 1 cap BID PO Last administered on 10/27/18at 09:31; Start 10/25/18 at 09:00 Albumin Human 200 ml @ 200 mls/hr 1X PRN PRN IV Hypotension; Start 10/25/18 at 08:45; Stop 10/25/18 at 14:44; Status DC Sodium Chloride (Normal Saline Flush) 10 ml 1X PRN PRN IV AP catheter pack; Start 10/25/18 at 08:45; Stop 10/26/18 at 08:44; Status DC Sodium Chloride (Normal Saline Flush) 10 ml 1X PRN PRN IV [employer] catheter pack; Start 10/25/18 at 08:45; Stop 10/26/18 at 08:44; Status DC Sodium Chloride 1,000 ml @ 400 mls/hr Q2H30M PRN IV PATENCY; Start 10/25/18 at 08:42; Stop 10/25/18 at 20:41; Status DC Info (PHARMACY MONITORING -- do not chart) 1 each PRN DAILY PRN MC SEE COMMENTS; Start 10/25/18 at 08:45; Status UNV Info (PHARMACY MONITORING -- do not chart) 1 each PRN DAILY PRN MC SEE COMMENTS; Start 10/25/18 at 08:45 Ondansetron HCl (Zofran) 4 mg PRN Q6HRS PRN IV NAUSEA/VOMITING; Start 10/25/18 at 09:15 Guaifenesin (Robitussin Dm) 10 ml PRN Q6HRS PRN PO COUGH; Start 10/25/18 at 09:15 Clotrimazole (Mycelex) 10 mg BID MM Last administered on 10/27/18at 09:30; Start 10/25/18 at 09:15 Diphenhydramine HCl (Benadryl) 25 mg PRN Q6HRS PRN PO ITCHING; Start 10/25/18 at 09:15 Nystatin (Mycostatin) 1 efe BID TP Last administered on 10/27/18at 09:31; Start 10/25/18 at 09:30 Pantoprazole Sodium (Protonix) 40 mg DAILYAC PO Last administered on 10/27/18at 09:31; Start 10/25/18 at 11:30 Phenyleph/Shark Oil/Min Oil/Petrol (Preparation H) 1 efe PRN QID PRN RC RECTAL PAIN; Start 10/25/18 at 09:15 Rifaximin (Xifaxan) 550 mg BID PO Last administered on 10/27/18at 09:31; Start 10/25/18 at 10:00 Non-Formulary Medication (Albuterol Sulfate (Albuterol Sulfate Conc Neb Soln)) 2.5 mg Q6HRS PRN NEB SHORTNESS OF BREATH; Start 10/25/18 at 09:15; Status UNV Benzonatate (Tessalon Perle) 100 mg PRN Q6HRS PRN PO COUGH; Start 10/25/18 at 14:00 Calcium Acetate (Phoslo) 667 mg TIDWMEALS PO Last administered on 10/27/18 09:30; Start 10/25/18 at 12:00 Calcium/Vitamin D (Oscal D 500mg/ 200uts) 1 tab DAILY08 PO Last administered on 10/27/18 09:31; Start 10/25/18 at 10:00 Vitamin B Complex/ Vitamin C (Tasia-Meliton) 1 tab DAILY PO Last administered on 10/27/18 09:30; Start 10/25/18 at 10:00 Vitamin B Complex (Shiva B) 1 tab DAILY PO Last administered on 10/27/18 09:30; Start 10/25/18 at 10:00 Levothyroxine Sodium (Synthroid) 300 mcg DAILY06 PO Last administered on 10/26/18at 05:43; Start 10/25/18 at 10:30 Midodrine (Proamatine) 10 mg [id number] PO Last administered on 10/26/18at 17:26; Start 10/25/18 at 13:00 Albuterol Sulfate (Ventolin Neb Soln) 2.5 mg PRN Q6HRS PRN NEB SHORTNESS OF BREATH; Start 10/25/18 at 09:45 Sodium Chloride 500 ml @ 500 mls/hr 1X ONCE IV Last administered on 10/25/18at 14:06; Start 10/25/18 at 14:00; Stop 10/25/18 at 14:59; Status DC Insulin Human Lispro (HumaLOG) 0-7 UNITS TIDWMEALS SQ ; Start 10/26/18 at 08:00; Stop 10/26/18 at 08:00; Status DC Dextrose (Dextrose 50%-Water Syringe) 12.5 gm PRN Q15MIN PRN IV SEE COMMENTS; Start 10/26/18 at 03:30; Stop 10/26/18 at 07:45; Status DC Potassium Chloride (Klor-Con) 20 meq 1X ONCE PO ; Start 10/26/18 at 10:00; Stop 10/26/18 at 10:01; Status Cancel Potassium Chloride (Klor-Con) 40 meq 1X ONCE PO ; Start 10/26/18 at 08:00; Stop 10/26/18 at 08:01; Status Cancel Insulin Human Lispro (HumaLOG) 0-9 UNITS TIDWMEALS SQ Last administered on 10/26/18at 17:30; Start 10/26/18 at 08:00 Dextrose (Dextrose 50%-Water Syringe) 12.5 gm PRN Q15MIN PRN IV SEE COMMENTS; Start 10/26/18 at 07:45 Potassium Bicarbonate (Potassium Effervescent Tablet) 40 meq 1X ONCE PO Last administered on 10/26/18at 10:56; Start 10/26/18 at 11:00; Stop 10/26/18 at 11:01; Status DC Potassium Bicarbonate (Potassium Effervescent Tablet) 20 meq 1X ONCE PO Last administered on 10/26/18at 13:28; Start 10/26/18 at 13:00; Stop 10/26/18 at 13:01; Status DC Multi-Ingredient Mouthwash/Gargle (Gi Cocktail) 20 ml 1X ONCE SWSW Last administered on 10/26/18at 18:17; Start 10/26/18 at 19:00; Stop 10/26/18 at 19:01; Status DC Active Scripts Active Major-Prep Hemorrhoidal Oint (Phenyleph/Mineral Oil/Petrolat) 57 Gm Oint.appl 1 Efe RC PRN QID PRN 14 Days Nystatin 15 Gm Oint...g. 1 Efe TP BID 30 Days Clotrimazole 10 Mg Vielka 10 Mg MM BID 10 Days Pantoprazole Sodium (Pantoprazole Sodium) 40 Mg Tablet.dr 40 Mg PO DAILYAC 30 Days Benzonatate 100 Mg Capsule 100 Mg PO PRN Q6HRS PRN 10 Days Hydrocodone-Apap 5-325 (Hydrocodone Bit/Acetaminophen) 1 Tab Tablet 1 Tab PO PRN Q6HRS PRN 30 Days Proair Hfa (Albuterol Sulfate) 8.5 Gm Hfa.aer.ad 2.5 Mg NEB PRN Q6HRS PRN 30 Days Levaquin (Levofloxacin) 500 Mg Tablet 0.5 Tab PO DAILY Midodrine Hcl 5 Mg Tablet 10 Mg PO [id number] 14 Days Reported Midodrine Hcl 5 Mg Tablet 5 Mg PO BID92 Benadryl (Diphenhydramine Hcl) 25 Mg Capsule 25 Mg PO PRN Q6HRS PRN Calcium Acetate 667 Mg Tablet 667 Mg PO TIDWMEALS Dialyvite Tablet (Folic Acid/Vitamin B Comp W-C) 1 Each Tablet 1 Each PO QMWF Omeprazole 40 Mg Capsule. 1 Cap PO DAILY Xifaxan (Rifaximin) 550 Mg Tablet 1 Tab PO BID Fusion Plus Capsule (Iron,Fum&Ps/Fa/Vit B&C#18/L.ca) 1 Each Capsule 1 Each PO DAILY Albuterol Sulfate Conc Neb Soln (Albuterol Sulfate) 2.5 Mg/0.5 Ml Vial.neb 2.5 Mg NEB Q6HRS PRN Lactulose 20 Gm/30 Ml Solution 20 Gm PO TID Lantus Solostar (Insulin Glargine,Hum.rec.anlog) 100 Unit/1 Ml Insuln.pen 40 Units SQ DAILY08 SSI Calcium + Vitamin D Tablet (Calcium Carbonate/Vitamin D3) 1 Each Tablet 1 Each PO DAILY Albuterol Sulfate Hfa Inhaler (Albuterol Sulfate) 8.5 Gm Hfa.aer.ad 8.5 Gm IH PRN Q6HRS PRN Novolog Flexpen (Insulin Aspart) 100 Unit/1 Ml Insuln.pen 0 SQ TIDAC 0-149: 0 units 150-199: 2 units 200-249: 4 units 250-299: 6 units 300-349: 8 units 350-399: 10 units >400: Call Synthroid (Levothyroxine Sodium) 25 Mcg Tablet 300 Mcg PO DAILY Flovent 110MCG Hfa (Fluticasone Propionate) 12 Gm Aer.w.adap 1 Puff IH DAILY Vitals/I & O Vital Sign - Last 24 Hours 10/26/18 10/26/18 10/26/18 10/26/18 11:00 13:28 15:00 15:54 Temp 98.0 98.0 Pulse 88 88 86 Resp 18 18 B/P (MAP) 97/53 (68) 90/45 88/50 (63) Pulse Ox 95 95 O2 Delivery Room Air Room Air Room Air 10/26/18 10/26/18 10/26/18 10/26/18 17:26 19:51 20:00 22:14 Temp 97.6 97.6 97.6 97.6 Pulse 86 88 94 Resp 18 18 B/P (MAP) 88/50 76/37 (50) 87/48 (61) Pulse Ox 95 96 O2 Delivery Room Air Room Air Room Air 10/27/18 10/27/18 10/27/18 02:31 07:00 08:17 Temp 97.5 97.4 97.5 97.4 Pulse 92 92 Resp 16 12 B/P (MAP) 99/51 (67) 84/49 (61) Pulse Ox 96 93 96 O2 Delivery Room Air Room Air Room Air Intake and Output 10/26/18 10/26/18 10/27/18 15:00 23:00 07:00 Intake Total 200 ml Output Total 1000 ml 700 ml Balance -1000 ml -500 ml ABE RIVER MD Oct 27, 2018 10:10
[2018-10-27 11:00] VITALS: BP 73/36
--- NOTE | 2018-10-27 11:53 | PDOC ---
SUBJECTIVE ROS Stable, propped up, talking on phone OBJECTIVE Vital Signs Vital Signs Date Time Temp Pulse Resp B/P (MAP) Pulse Ox O2 Delivery O2 Flow Rate FiO2 10/27/18 11:00 98.0 94 16 73/36 (48) 96 Room Air 98.0 I & 0 Intake and Output 10/27/18 06:59 Intake Total 200 ml Output Total 1700 ml Balance -1500 ml Intake Oral 200 ml Chest Tube Drainage Total 1700 ml # Bowel Movements 2 PHYSICAL EXAM Physical Exam GEN: Awake, Oriented x [], In [] distress EYES: Vision Unchanged, Conjunctiva Normal EN: No EN Drainage, Mucous Membranes [] NECK: [] JVD, [] JVP, Supple, [] Thyromegaly CVS: S1S2, [] Murmur, No Gallop, No Rub,[] Edema RESP: [] Rales, [] Rhonchi,[] Acc. Muscle Use GI: BS + ve, NO Bruit, Non Tender, Non Distended : [] CVA tenderness, [] Suprapubic Tenderness DIAGNOSIS/ASSESSMENT Assessment & Plan ESRD - On HD MWF- [facility]- Dr Tracy On midodrine for hypotension Dialysis today as ordered, [facility] Left Pleural effusion - recurrent Has Chest Tube placed Oajhk-fo-[id number] hypoxic respiratory failure secondary to worsening left-sided pleural effusion, likely transudative in etiology. She had multiple thoracenteses in the past, which were transudate End-stage liver disease with recurrent ascites Requires weekly paracentesis s/p on 10/24 - lts drained Chronic anemia - EGD 04/24/18: grade 1 varices, gastritis. DM2 Non Compliance with HD Dced Home last week on Home Hospice COMMENT/RELEVANT DATA Meds Current Medications Medications (Trade) Dose Ordered Sig/Emanuel Start Time Stop Time Status Last Admin Dose Admin Acetaminophen/ Hydrocodone Bitart (Lortab 5/325) 1 tab PRN Q6HRS PRN 10/24/18 18:30 10/26/18 05:45 1 TAB Albumin Human 200 ml @ 200 mls/hr 1X PRN PRN 10/25/18 08:45 10/25/18 14:44 DC Albuterol Sulfate (Ventolin Neb Soln) 2.5 mg PRN Q6HRS PRN 10/25/18 09:45 Albuterol/ Ipratropium (Duoneb) 3 ml RTQID 10/24/18 12:00 10/27/18 08:17 3 ML Benzonatate (Tessalon Perle) 100 mg PRN Q6HRS PRN 10/25/18 14:00 Budesonide (Pulmicort) 0.5 mg RTBID 10/24/18 20:00 10/27/18 08:17 0.5 MG Calcium Acetate (Phoslo) 667 mg TIDWMEALS 10/25/18 12:00 10/27/18 09:30 667 MG Calcium/Vitamin D (Oscal D 500mg/ 200uts) 1 tab DAILY08 10/25/18 10:00 10/27/18 09:31 1 TAB Clotrimazole (Mycelex) 10 mg BID 10/25/18 09:15 10/27/18 09:30 10 MG Dextrose (Dextrose 50%-Water Syringe) 12.5 gm PRN Q15MIN PRN 10/26/18 07:45 Diphenhydramine HCl (Benadryl) 25 mg PRN Q6HRS PRN 10/25/18 09:15 Fentanyl Citrate (Fentanyl 2ml Vial) 50 mcg PRN Q2HR PRN 10/24/18 17:00 10/24/18 17:05 50 MCG Guaifenesin (Robitussin Dm) 10 ml PRN Q6HRS PRN 10/25/18 09:15 Info (PHARMACY MONITORING -- do not chart) 1 each PRN DAILY PRN 10/25/18 08:45 Insulin Glargine (Lantus) 40 units DAILY08 10/25/18 08:00 10/26/18 07:44 40 UNITS Insulin Human Lispro (HumaLOG) 0-9 UNITS TIDWMEALS 10/26/18 08:00 10/26/18 17:30 5 UNITS Lactobacillus Rhamnosus (Culturelle) 1 cap BID 10/25/18 09:00 10/27/18 09:31 1 CAP Lactulose (Lactulose) 20 gm TID 10/24/18 21:00 10/25/18 13:42 20 GM Levothyroxine Sodium (Synthroid) 300 mcg DAILY06 10/25/18 10:30 10/26/18 05:43 300 MCG Lidocaine/Sodium Bicarbonate (Buffered Lidocaine 1%) 12 ml 1X ONCE 10/24/18 09:30 10/24/18 09:31 DC 10/24/18 09:30 12 ML Midodrine (Proamatine) 10 mg [id number] 10/25/18 13:00 10/26/18 17:26 10 MG Multi-Ingredient Mouthwash/Gargle (Gi Cocktail) 20 ml 1X ONCE 10/26/18 19:00 10/26/18 19:01 DC 10/26/18 18:17 20 ML Non-Formulary Medication (Albuterol Sulfate (Albuterol Sulfate Conc Neb Soln)) 2.5 mg Q6HRS PRN 10/25/18 09:15 UNV Non-Formulary Medication (Midodrine Hcl ) 10 mg [id number] 10/24/18 18:00 UNV Norepinephrine Bitartrate 250 ml @ 1.875 mls/ hr CONT PRN 10/24/18 13:30 10/26/18 07:40 DC 10/25/18 21:03 9.375 MLS/HR Nystatin (Mycostatin) 1 kiana BID 10/25/18 09:30 10/27/18 09:31 1 KIANA Ondansetron HCl (Zofran) 4 mg PRN Q6HRS PRN 10/25/18 09:15 Pantoprazole Sodium (Protonix) 40 mg DAILYAC 10/25/18 11:30 10/27/18 09:31 40 MG Phenyleph/Shark Oil/Min Oil/Petrol (Preparation H) 1 kiana PRN QID PRN 10/25/18 09:15 Piperacillin Sod/ Tazobactam Sod (Zosyn Per Pharmacy) 1 each PRN DAILY PRN 10/24/18 12:00 UNV Piperacillin Sod/ Tazobactam Sod 2.25 gm/Sodium Chloride 50 ml @ 100 mls/hr Q8HRS 10/24/18 12:00 10/27/18 06:35 100 MLS/HR Potassium Bicarbonate (Potassium Effervescent Tablet) 20 meq 1X ONCE 10/26/18 13:00 10/26/18 13:01 DC 10/26/18 13:28 20 MEQ Potassium Chloride (Klor-Con) 40 meq 1X ONCE 10/26/18 08:00 10/26/18 08:01 Cancel Rifaximin (Xifaxan) 550 mg BID 10/25/18 10:00 10/27/18 09:31 550 MG Sodium Chloride 500 ml @ 500 mls/hr 1X ONCE 10/25/18 14:00 10/25/18 14:59 DC 10/25/18 14:06 500 MLS/HR Sodium Chloride (Normal Saline Flush) 10 ml 1X PRN PRN 10/25/18 08:45 10/26/18 08:44 DC Vitamin B Complex (Shiva B) 1 tab DAILY 10/25/18 10:00 10/27/18 09:30 1 TAB Vitamin B Complex/ Vitamin C (Tasia-Meliton) 1 tab DAILY 10/25/18 10:00 10/27/18 09:30 1 TAB Lab Laboratory Tests Test 10/26/18 11:53 10/26/18 16:47 10/26/18 21:05 10/27/18 08:03 Glucose (Fingerstick) 128 mg/dL (70-99) 205 mg/dL (70-99) 227 mg/dL (70-99) 85 mg/dL (70-99) Results All relevant outside records, renal labs, imaging studies, telemetry/EKG's were reviewed. DARLING SHORT MD Oct 27, 2018 11:53
--- NOTE | 2018-10-27 13:01 | NUR ---
SS following for discharge planning. SS reviewed pt's chart and spoke with pt's RN. Pt is from home with family and was previously on services with [facility]. Per pt's RN pt will get Pleurx Catheter and will discharge to home tomorrow with hospice services. SS will continue to follow for discharge planning.
--- NOTE | 2018-10-27 13:38 | RAD ---
Single view of the chest. 10/27/2018 9:00 AM Indication: Pleural effusion Comparison: Chest radiograph, yesterday Findings: Continuing improvement in left upper lung aeration is noted in the interim. Possible trace residual fluid is noted. Left thoracostomy tube is stable in position. Right-sided port left-sided tunneled analysis catheter stable. No pneumothorax is seen. Mild central vascular congestion is similar. IMPRESSION: 1. Left chest tube remains in place with minimal pleural effusion 2. Improved aeration of the left upper lung 3. Mild central vascular congestion Electronically signed by: Davie Wilkinson MD (10/27/2018 1:35 PM) [id number]
[2018-10-27] MEDS ORDERED: IV NORMAL SALINE 1000ML BAG 1,000 ML IV PRN ×2 (14:38)
[2018-10-27] MEDS ORDERED: DIALYSIS PATIENT. MC PRN ×2 (14:45)
[2018-10-27] MEDS ORDERED: diphenhydrAMINE 50 MG/ML VIAL IV PRN ×2 (14:45)
[2018-10-27 15:00] VITALS: BP 85/51
[2018-10-27 16:29] LABS: CALCIUM 7.5 mg/dL (8.5-10.1); CREATININE 3.6 mg/dL (0.6-1.0); GFR 12.8; POTASSIUM 3.3 mmol/L (3.5-5.1)
[2018-10-27 19:00] VITALS: BP 94/55
--- NOTE | 2018-10-27 19:00 | NUR ---
Pt in dialysis at shift change, Pt then arrived to unit at 1910 per bed. Pt c/o lt shoulder pain assessment completed vs obtained and stable poc explained will resume care and continue to monitor pt call light in reach bed in lower call light in reach.
[2018-10-27 22:14] VITALS: BP 93/48
[2018-10-28] VITALS (7 sets, daily range): BP systolic 88–117; BP diastolic 37–62
[2018-10-28] MEDS: PIPERACILLIN/TAZOBACTAM 2.25 GM in IV NORMAL SALINE 50ML 50 ML IV SCH ×3 (05:33→21:43)
[2018-10-28] MEDS: MIDODRINE 5 MG TABLET PO SCH ×4 (07:00→18:09)
[2018-10-28] MEDS: INSULIN GLARGINE 300 UNITS/3 ML INSULN.PEN. SQ SCH (08:00)
[2018-10-28] MEDS: BUDESONIDE 0.5 MG/2 ML NEBU. NEB SCH ×2 (08:00→19:36)
[2018-10-28] MEDS: CALCIUM ACETATE 667 MG CAPSULE PO SCH ×3 (08:00→18:09)
[2018-10-28] MEDS: INSULIN LISPRO 300 UNITS/3 ML INSULN.PEN. SQ SCH ×4 (08:00→18:14)
[2018-10-28] MEDS: IPRATRPIUM/ALBUTEROL 0.5/2.5MG 3 ML NEBU. NEB SCH ×4 (08:00→19:35)
--- NOTE | 2018-10-28 08:21 | RAD ---
PORTABLE CHEST 1V History: Effusions Comparison: October 27, 2018 Findings: Single view of the chest is submitted. There is again dual lumen left internal jugular catheter with the tip in the region of right atrium and a right internal jugular port catheter with tip near the cavoatrial junction. There is again pigtail catheter near the left lung base. No significant pneumothorax is identified. There is persistent left base opacity, somewhat increased obscuration of the left hemidiaphragm in interval. There is perihilar opacity bilaterally and also some hazy right base opacity also overall unchanged. Cardiac silhouette is unchanged. There is atherosclerotic calcification near aortic arch. Impression: 1. There is somewhat increased left base opacity probably component of pleural fluid in combination with adjacent atelectasis/infiltrate. Otherwise radiographic findings as stated are similar. Electronically signed by: Walker Ramachandran MD (10/28/2018 8:18 AM) [id number]
[2018-10-28] MEDS: NYSTATIN 100,000 UNIT/GM TOPICAL OINTMENT 15GM TUBE. TP SCH ×2 (09:00→21:00)
[2018-10-28] MEDS: LACTULOSE 20 GM/30 ML SOLUTION. PO SCH ×3 (09:00→20:33)
[2018-10-28] MEDS: LEVOTHYROXINE 150 MCG TABLET PO SCH (10:16)
--- NOTE | 2018-10-28 10:29 | PDOC ---
PROGRESS NOTES Chief Complaint Chief Complaint Hypovolemic shock status post large volume paracentesis, status post large- volume thoracentesis-10 L total 10/24/2018 ESRD on dialysis Saturday Anemia of ESRD Generalized weakness/functional quadriplegia on hospice Full code Hypotension on midodrine with normal TSH and cortisol recently Diabetes type 2 on insulin with A1c 6.8 Leukocytosis, SIRS WBC 13 HOSPICE Interval placement of a left pigtail thoracostomy tube with a tunneled thoracostomy tube as described. 10/28 Chronic anemia - EGD 04/24/18: grade 1 varices, gastritis. History of Present Illness History of Present Illness Off levophed, t/o ICU saturday Was on home hospice BUT REVOKED TO BE ADMITTED Pleurx is an option - provide symptom relief because she gets paracentesis and thoracentesis almost every weekly Plan PleurX catheter would be reasonable to do drainage by hospice team post dc. IR consulted discussed with her, agreeable to Pleurx for symptom relief Dialysis per renal [facility] home after Pleurx catheter on home hospice Discussed with patient, RN She is full code despite being on hospice - wanted full code Interval placement of a left pigtail thoracostomy tube with a tunneled thoracostomy tube as described. 10/28 38 MIN PT EXAM, CHART REVIEW, > 50% OF TIME SPENT WITH EXAM, CHART REVIEW, PT CARE COORDINATION Vitals Vitals Vital Signs Date Time Temp Pulse Resp B/P (MAP) Pulse Ox O2 Delivery O2 Flow Rate FiO2 10/28/18 10:15 101 91/40 10/28/18 07:00 98.5 16 91 Room Air 98.5 10/27/18 20:00 3.0 Physical Exam General: Alert, Other (REFUFING MEDS) Heart: Regular rate, Normal S1, Normal S2, No murmurs, Gallops Lungs: Other (decrease bases) Abdomen: Normal bowel sounds, Soft, No tenderness, No hepatosplenomegaly, No masses Extremities: No clubbing, No cyanosis, No edema, Normal pulses, No tenderness/swelling Skin: No rashes, No breakdown Labs LABS Single view of the chest. 10/28/2018 1:53 PM Indication: New chest tube placement Comparison: Chest radiograph, earlier today Findings: New left-sided tunneled thoracostomy tube is noted. Catheterization somewhat cephalad in the pleural space, as was seen during placement. The pigtail thoracostomy tube has been removed. No pneumothorax is identified. Right-sided port and left-sided dialysis catheter unchanged. Small right pleural effusion is unchanged. Mild central vascular congestion is similar to comparison exams. IMPRESSION: Interval placement of a left pigtail thoracostomy tube with a tunneled thoracostomy tube as described. Electronically signed by: Davie Wilkinson MD (10/28/2018 2:06 PM) [id number] Laboratory Tests Test 10/27/18 12:29 10/27/18 16:00 10/27/18 21:02 10/28/18 06:44 Glucose (Fingerstick) 123 mg/dL (70-99) 121 mg/dL (70-99) 222 mg/dL (70-99) Sodium Level 141 mmol/L (136-145) Potassium Level 3.3 mmol/L (3.5-5.1) Chloride Level 105 mmol/L (98-107) Carbon Dioxide Level 26 mmol/L (21-32) Anion Gap 10 (6-14) Blood Urea Nitrogen 30 mg/dL (7-20) Creatinine 3.6 mg/dL (0.6-1.0) Estimated GFR (Cockcroft-Gault) 12.8 Glucose Level 154 mg/dL (70-99) Calcium Level 7.5 mg/dL (8.5-10.1) Test 10/28/18 07:48 Glucose (Fingerstick) 231 mg/dL (70-99) Assessment and Plan Assessmemt and Plan Problems Medical Problems: (1) Acute and chronic respiratory failure Status: Acute (2) Hypotension Status: Acute (3) Pleural effusion Status: Acute Comment Review of Relevant I have reviewed the following items chante (where applicable) has been applied. Labs Laboratory Tests Test 10/26/18 11:53 10/26/18 16:47 10/26/18 21:05 10/27/18 08:03 Glucose (Fingerstick) 128 mg/dL (70-99) 205 mg/dL (70-99) 227 mg/dL (70-99) 85 mg/dL (70-99) Test 10/27/18 12:29 10/27/18 16:00 10/27/18 21:02 10/28/18 06:44 Glucose (Fingerstick) 123 mg/dL (70-99) 121 mg/dL (70-99) 222 mg/dL (70-99) Sodium Level 141 mmol/L (136-145) Potassium Level 3.3 mmol/L (3.5-5.1) Chloride Level 105 mmol/L (98-107) Carbon Dioxide Level 26 mmol/L (21-32) Anion Gap 10 (6-14) Blood Urea Nitrogen 30 mg/dL (7-20) Creatinine 3.6 mg/dL (0.6-1.0) Estimated GFR (Cockcroft-Gault) 12.8 Glucose Level 154 mg/dL (70-99) Calcium Level 7.5 mg/dL (8.5-10.1) Test 10/28/18 07:48 Glucose (Fingerstick) 231 mg/dL (70-99) Laboratory Tests Test 10/27/18 12:29 10/27/18 16:00 10/27/18 21:02 10/28/18 06:44 Glucose (Fingerstick) 123 mg/dL (70-99) 121 mg/dL (70-99) 222 mg/dL (70-99) Sodium Level 141 mmol/L (136-145) Potassium Level 3.3 mmol/L (3.5-5.1) Chloride Level 105 mmol/L (98-107) Carbon Dioxide Level 26 mmol/L (21-32) Anion Gap 10 (6-14) Blood Urea Nitrogen 30 mg/dL (7-20) Creatinine 3.6 mg/dL (0.6-1.0) Estimated GFR (Cockcroft-Gault) 12.8 Glucose Level 154 mg/dL (70-99) Calcium Level 7.5 mg/dL (8.5-10.1) Test 10/28/18 07:48 Glucose (Fingerstick) 231 mg/dL (70-99) Microbiology 10/24/18 Blood Culture - Preliminary, Resulted NO GROWTH AFTER 4 DAYS 10/24/18 Anaerobic/Aerobic Culture, Resulted Pending 10/24/18 Anaerobic Culture Result 1 (JOSE), Resulted Pending 10/24/18 Aerobic Culture - Final, Resulted 10/24/18 Aerobic Culture Result 1 (JOSE) - Final, Resulted 10/24/18 Gram Stain - Final, Resulted 10/24/18 Gram Stain Result 1 (JOSE) - Final, Resulted 10/24/18 Gram Stain Result 2 (JOSE) - Final, Resulted Medications Current Medications Sodium Chloride 1,000 ml @ 1,000 mls/hr 1X ONCE IV Last administered on 10/24/18at 10:00; Start 10/24/18 at 08:15; Stop 10/24/18 at 09:14; Status DC Lidocaine/Sodium Bicarbonate (Buffered Lidocaine 1%) 12 ml 1X ONCE IJ Last administered on 10/24/18at 09:30; Start 10/24/18 at 09:30; Stop 10/24/18 at 09:31; Status DC Albumin Human 100 ml @ 100 mls/hr 1X ONCE IV Last administered on 10/24/18at 09:30; Start 10/24/18 at 09:30; Stop 10/24/18 at 10:29; Status DC Albumin Human 100 ml @ 100 mls/hr 1X ONCE IV Last administered on 10/24/18at 11:38; Start 10/24/18 at 09:30; Stop 10/24/18 at 10:29; Status DC Albumin Human 100 ml @ 100 mls/hr 1X ONCE IV Last administered on 10/24/18at 09:20; Start 10/24/18 at 09:30; Stop 10/24/18 at 10:29; Status DC Fentanyl Citrate (Fentanyl 2ml Vial) 50 mcg 1X ONCE IV Last administered on 10/24/18at 11:42; Start 10/24/18 at 11:00; Stop 10/24/18 at 11:01; Status DC Piperacillin Sod/ Tazobactam Sod (Zosyn Per Pharmacy) 1 each PRN DAILY PRN MC SEE COMMENTS; Start 10/24/18 at 11:30 Piperacillin Sod/ Tazobactam Sod 2.25 gm/Sodium Chloride 50 ml @ 100 mls/hr Q8HRS IV Last administered on 10/28/18at 05:33; Start 10/24/18 at 12:00 Ondansetron HCl (Zofran) 4 mg PRN Q8HRS PRN IV NAUSEA/VOMITING; Start 10/24/18 at 11:45; Stop 10/25/18 at 09:05; Status DC Albuterol/ Ipratropium (Duoneb) 3 ml RTQID NEB Last administered on 10/27/18at 08:17; Start 10/24/18 at 12:00 Piperacillin Sod/ Tazobactam Sod (Zosyn Per Pharmacy) 1 each PRN DAILY PRN MC SEE COMMENTS; Start 10/24/18 at 12:00; Status UNV Sodium Chloride 500 ml @ 500 mls/hr 1X ONCE IV Last administered on 10/24/18at 13:29; Start 10/24/18 at 13:30; Stop 10/24/18 at 14:29; Status DC Norepinephrine Bitartrate 250 ml @ 1.875 mls/ hr CONT PRN IV SEE I/O RECORD Last administered on 10/25/18at 21:03; Start 10/24/18 at 13:30; Stop 10/26/18 at 07:40; Status DC Albumin Human 100 ml @ 100 mls/hr 1X ONCE IV Last administered on 10/24/18at 15:30; Start 10/24/18 at 15:30; Stop 10/24/18 at 16:29; Status DC Albumin Human 100 ml @ As Directed STK-MED ONCE IV ; Start 10/24/18 at 15:23; Stop 10/24/18 at 15:24; Status DC Fentanyl Citrate (Fentanyl 2ml Vial) 50 mcg PRN Q2HR PRN IV PAIN Last administered on 10/24/18at 17:05; Start 10/24/18 at 17:00 Insulin Glargine (Lantus) 40 units DAILY08 SQ Last administered on 10/26/18 07:44; Start 10/25/18 at 08:00 Lactulose (Lactulose) 20 gm TID PO Last administered on 10/25/18at 13:42; Start 10/24/18 at 21:00 Budesonide (Pulmicort) 0.5 mg RTBID NEB Last administered on 10/27/18at 08:17; Start 10/24/18 at 20:00 Midodrine (Proamatine) 5 mg [id number] PO Last administered on 10/25/18 08:40; Start 10/25/18 at 09:00; Stop 10/25/18 at 09:07; Status DC Non-Formulary Medication (Midodrine Hcl ) 10 mg [id number] PO ; Start 10/24/18 at 1 8:00; Status UNV Acetaminophen/ Hydrocodone Bitart (Lortab 5/325) 1 tab PRN Q6HRS PRN PO PAIN Last administered on 7/7/19at 05:45; Start 10/24/18 at 18:30 Lactobacillus Rhamnosus (Culturelle) 1 cap BID PO Last administered on 10/27/18 21:18; Start 10/25/18 at 09:00 Albumin Human 200 ml @ 200 mls/hr 1X PRN PRN IV Hypotension; Start 10/25/18 at 08:45; Stop 10/25/18 at 14:44; Status DC Sodium Chloride (Normal Saline Flush) 10 ml 1X PRN PRN IV AP catheter pack; Start 10/25/18 at 08:45; Stop 10/26/18 at 08:44; Status DC Sodium Chloride (Normal Saline Flush) 10 ml 1X PRN PRN IV RECOVERY ASSISTANT catheter pack; Start 10/25/18 at 08:45; Stop 10/26/18 at 08:44; Status DC Sodium Chloride 1,000 ml @ 400 mls/hr Q2H30M PRN IV PATENCY; Start 10/25/18 at 08:42; Stop 10/25/18 at 20:41; Status DC Info (PHARMACY MONITORING -- do not chart) 1 each PRN DAILY PRN MC SEE COMMENTS; Start 10/25/18 at 08:45; Status UNV Info (PHARMACY MONITORING -- do not chart) 1 each PRN DAILY PRN MC SEE COMMENTS; Start 10/25/18 at 08:45 Ondansetron HCl (Zofran) 4 mg PRN Q6HRS PRN IV NAUSEA/VOMITING; Start 10/25/18 at 09:15 Guaifenesin (Robitussin Dm) 10 ml PRN Q6HRS PRN PO COUGH; Start 10/25/18 at 09:15 Clotrimazole (Mycelex) 10 mg BID MM Last administered on 10/27/18 21:18; Start 10/25/18 at 09:15 Diphenhydramine HCl (Benadryl) 25 mg PRN Q6HRS PRN PO ITCHING; Start 10/25/18 at 09:15 Nystatin (Mycostatin) 1 efe BID TP Last administered on 10/27/18at 21:28; Start 10/25/18 at 09:30 Pantoprazole Sodium (Protonix) 40 mg DAILYAC PO Last administered on 10/27/18at 09:31; Start 10/25/18 at 11:30 Phenyleph/Shark Oil/Min Oil/Petrol (Preparation H) 1 efe PRN QID PRN RC RECTAL PAIN; Start 10/25/18 at 09:15 Rifaximin (Xifaxan) 550 mg BID PO Last administered on 10/27/18 21:18; Start 10/25/18 at 10:00 Non-Formulary Medication (Albuterol Sulfate (Albuterol Sulfate Conc Neb Soln)) 2.5 mg Q6HRS PRN NEB SHORTNESS OF BREATH; Start 10/25/18 at 09:15; Status UNV Benzonatate (Tessalon Perle) 100 mg PRN Q6HRS PRN PO COUGH; Start 10/25/18 at 14:00 Calcium Acetate (Phoslo) 667 mg TIDWMEALS PO Last administered on 10/27/18 12:33; Start 10/25/18 at 12:00 Calcium/Vitamin D (Oscal D 500mg/ 200uts) 1 tab DAILY08 PO Last administered on 10/27/18 09:31; Start 10/25/18 at 10:00 Vitamin B Complex/ Vitamin C (Tasia-Meliton) 1 tab DAILY PO Last administered on 10/27/18 09:30; Start 10/25/18 at 10:00 Vitamin B Complex (Shiva B) 1 tab DAILY PO Last administered on 10/27/18 09:30; Start 10/25/18 at 10:00 Levothyroxine Sodium (Synthroid) 300 mcg DAILY06 PO Last administered on 10/28/18 10:16; Start 10/25/18 at 10:30 Midodrine (Proamatine) 10 mg [id number] PO Last administered on 10/28/18 10:15; Start 10/25/18 at 13:00 Albuterol Sulfate (Ventolin Neb Soln) 2.5 mg PRN Q6HRS PRN NEB SHORTNESS OF BREATH; Start 10/25/18 at 09:45 Sodium Chloride 500 ml @ 500 mls/hr 1X ONCE IV Last administered on 10/25/18 14:06; Start 10/25/18 at 14:00; Stop 10/25/18 at 14:59; Status DC Insulin Human Lispro (HumaLOG) 0-7 UNITS TIDWMEALS SQ ; Start 10/26/18 at 08:00; Stop 10/26/18 at 08:00; Status DC Dextrose (Dextrose 50%-Water Syringe) 12.5 gm PRN Q15MIN PRN IV SEE COMMENTS; Start 10/26/18 at 03:30; Stop 10/26/18 at 07:45; Status DC Potassium Chloride (Klor-Con) 20 meq 1X ONCE PO ; Start 10/26/18 at 10:00; Stop 10/26/18 at 10:01; Status Cancel Potassium Chloride (Klor-Con) 40 meq 1X ONCE PO ; Start 10/26/18 at 08:00; Stop 10/26/18 at 08:01; Status Cancel Insulin Human Lispro (HumaLOG) 0-9 UNITS TIDWMEALS SQ Last administered on 10/28/18at 10:23; Start 10/26/18 at 08:00 Dextrose (Dextrose 50%-Water Syringe) 12.5 gm PRN Q15MIN PRN IV SEE COMMENTS; Start 10/26/18 at 07:45 Potassium Bicarbonate (Potassium Effervescent Tablet) 40 meq 1X ONCE PO Last administered on 10/26/18at 10:56; Start 10/26/18 at 11:00; Stop 10/26/18 at 11:01; Status DC Potassium Bicarbonate (Potassium Effervescent Tablet) 20 meq 1X ONCE PO Last administered on 10/26/18at 13:28; Start 10/26/18 at 13:00; Stop 10/26/18 at 13:01; Status DC Multi-Ingredient Mouthwash/Gargle (Gi Cocktail) 20 ml 1X ONCE SWSW Last administered on 10/26/18at 18:17; Start 10/26/18 at 19:00; Stop 10/26/18 at 19:01; Status DC Sodium Chloride 1,000 ml @ 1,000 mls/hr Q1H PRN IV hypotension; Start 10/27/18 at 14:38; Stop 10/27/18 at 20:37; Status DC Diphenhydramine HCl (Benadryl) 25 mg 1X PRN PRN IV ITCHING; Start 10/27/18 at 14:45; Stop 10/28/18 at 14:44 Diphenhydramine HCl (Benadryl) 25 mg 1X PRN PRN IV ITCHING; Start 10/27/18 at 14:45; Stop 10/28/18 at 14:44 Sodium Chloride 1,000 ml @ 400 mls/hr Q2H30M PRN IV PATENCY; Start 10/27/18 at 14:38; Stop 10/28/18 at 02:37; Status DC Info (PHARMACY MONITORING -- do not chart) 1 each PRN DAILY PRN MC SEE COMMENTS; Start 10/27/18 at 14:45; Status UNV Info (PHARMACY MONITORING -- do not chart) 1 each PRN DAILY PRN MC SEE COMMENTS; Start 10/27/18 at 14:45 Active Scripts Active Major-Prep Hemorrhoidal Oint (Phenyleph/Mineral Oil/Petrolat) 57 Gm Oint.appl 1 Efe RC PRN QID PRN 14 Days Nystatin 15 Gm Oint...g. 1 Efe TP BID 30 Days Clotrimazole 10 Mg Vielka 10 Mg MM BID 10 Days Pantoprazole Sodium (Pantoprazole Sodium) 40 Mg Tablet.dr 40 Mg PO DAILYAC 30 Days Benzonatate 100 Mg Capsule 100 Mg PO PRN Q6HRS PRN 10 Days Hydrocodone-Apap 5-325 (Hydrocodone Bit/Acetaminophen) 1 Tab Tablet 1 Tab PO PRN Q6HRS PRN 30 Days Proair Hfa (Albuterol Sulfate) 8.5 Gm Hfa.aer.ad 2.5 Mg NEB PRN Q6HRS PRN 30 Days Levaquin (Levofloxacin) 500 Mg Tablet 0.5 Tab PO DAILY Midodrine Hcl 5 Mg Tablet 10 Mg PO [id number] 14 Days Reported Midodrine Hcl 5 Mg Tablet 5 Mg PO BID92 Benadryl (Diphenhydramine Hcl) 25 Mg Capsule 25 Mg PO PRN Q6HRS PRN Calcium Acetate 667 Mg Tablet 667 Mg PO TIDWMEALS Dialyvite Tablet (Folic Acid/Vitamin B Comp W-C) 1 Each Tablet 1 Each PO QMWF Omeprazole 40 Mg Capsule. 1 Cap PO DAILY Xifaxan (Rifaximin) 550 Mg Tablet 1 Tab PO BID Fusion Plus Capsule (Iron,Fum&Ps/Fa/Vit B&C#18/L.ca) 1 Each Capsule 1 Each PO DAILY Albuterol Sulfate Conc Neb Soln (Albuterol Sulfate) 2.5 Mg/0.5 Ml Vial.neb 2.5 Mg NEB Q6HRS PRN Lactulose 20 Gm/30 Ml Solution 20 Gm PO TID Lantus Solostar (Insulin Glargine,Hum.rec.anlog) 100 Unit/1 Ml Insuln.pen 40 Units SQ DAILY08 SSI Calcium + Vitamin D Tablet (Calcium Carbonate/Vitamin D3) 1 Each Tablet 1 Each PO DAILY Albuterol Sulfate Hfa Inhaler (Albuterol Sulfate) 8.5 Gm Hfa.aer.ad 8.5 Gm IH PRN Q6HRS PRN Novolog Flexpen (Insulin Aspart) 100 Unit/1 Ml Insuln.pen 0 SQ TIDAC 0-149: 0 units 150-199: 2 units 200-249: 4 units 250-299: 6 units 300-349: 8 units 350-399: 10 units >400: Call Synthroid (Levothyroxine Sodium) 25 Mcg Tablet 300 Mcg PO DAILY Flovent 110MCG Hfa (Fluticasone Propionate) 12 Gm Aer.w.adap 1 Puff IH DAILY Vitals/I & O Vital Sign - Last 24 Hours 10/27/18 10/27/18 10/27/18 10/27/18 11:00 12:32 15:00 19:00 Temp 98.0 98.5 98.4 98.0 98.5 98.4 Pulse 94 94 94 104 Resp 16 16 18 B/P (MAP) 73/36 (48) 73/36 85/51 (62) 94/55 (68) Pulse Ox 96 100 96 O2 Delivery Room Air Nasal Cannula Room Air O2 Flow Rate 3.0 10/27/18 10/27/18 10/28/18 10/28/18 20:00 22:14 03:24 07:00 Temp 98.2 98.8 98.5 98.2 98.8 98.5 Pulse 96 101 101 Resp 18 18 16 B/P (MAP) 93/48 (63) 88/50 (63) 91/40 (57) Pulse Ox 94 94 91 O2 Delivery Room Air Room Air Room Air Room Air O2 Flow Rate 3.0 10/28/18 10:15 Pulse 101 B/P (MAP) 91/40 Intake and Output 10/27/18 10/27/18 10/28/18 14:59 22:59 06:59 Intake Total 100 ml 400 ml 100 ml Output Total 450 ml Balance -350 ml 400 ml 100 ml CHUCK RIVERA MD Oct 28, 2018 10:29
--- NOTE | 2018-10-28 10:58 | PDOC ---
SUBJECTIVE ROS Stable, OBJECTIVE Vital Signs Vital Signs Date Time Temp Pulse Resp B/P (MAP) Pulse Ox O2 Delivery O2 Flow Rate FiO2 10/28/18 10:15 101 91/40 10/28/18 07:00 98.5 16 91 Room Air 98.5 10/27/18 20:00 3.0 I & 0 Intake and Output 10/28/18 06:59 Intake Total 600 ml Output Total 450 ml Balance 150 ml Intake Oral 500 ml IV Total 100 ml Chest Tube Drainage Total 450 ml # Bowel Movements 5 PHYSICAL EXAM Physical Exam General: Alert, Heart: Regular rate, Normal S1, Normal S2, No murmurs, Gallops Lungs: Other (decrease bases) Abdomen: Normal bowel sounds, Soft, No tenderness, No hepatosplenomegaly, No masses Extremities: No clubbing, No cyanosis, No edema, Normal pulses, No tenderness/swelling Skin: No rashes, No breakdown DIAGNOSIS/ASSESSMENT Assessment & Plan ESRD - On HD MWF- [facility]- Dr Tracy On midodrine for hypotension No indication for HD today Left Pleural effusion - recurrent Has Chest Tube placed [id number] hypoxic respiratory failure secondary to worsening left-sided pleural effusion, likely transudative in etiology. She had multiple thoracenteses in the past, which were transudate End-stage liver disease with recurrent ascites Requires weekly paracentesis s/p on 10/24 - lts drained Chronic anemia - EGD 04/24/18: grade 1 varices, gastritis. DM2 Non Compliance with HD Dced Home last week on Home Hospice COMMENT/RELEVANT DATA Meds Current Medications Medications (Trade) Dose Ordered Sig/Emanuel Start Time Stop Time Status Last Admin Dose Admin Acetaminophen/ Hydrocodone Bitart (Lortab 5/325) 1 tab PRN Q6HRS PRN 10/24/18 18:30 10/26/18 05:45 1 TAB Albumin Human 200 ml @ 200 mls/hr 1X PRN PRN 10/25/18 08:45 10/25/18 14:44 DC Albuterol Sulfate (Ventolin Neb Soln) 2.5 mg PRN Q6HRS PRN 10/25/18 09:45 Albuterol/ Ipratropium (Duoneb) 3 ml RTQID 10/24/18 12:00 10/27/18 08:17 3 ML Benzonatate (Tessalon Perle) 100 mg PRN Q6HRS PRN 10/25/18 14:00 Budesonide (Pulmicort) 0.5 mg RTBID 10/24/18 20:00 10/27/18 08:17 0.5 MG Calcium Acetate (Phoslo) 667 mg TIDWMEALS 10/25/18 12:00 10/27/18 12:33 667 MG Calcium/Vitamin D (Oscal D 500mg/ 200uts) 1 tab DAILY08 10/25/18 10:00 10/27/18 09:31 1 TAB Clotrimazole (Mycelex) 10 mg BID 10/25/18 09:15 10/27/18 21:18 10 MG Dextrose (Dextrose 50%-Water Syringe) 12.5 gm PRN Q15MIN PRN 10/26/18 07:45 Diphenhydramine HCl (Benadryl) 25 mg 1X PRN PRN 10/27/18 14:45 10/28/18 14:44 Fentanyl Citrate (Fentanyl 2ml Vial) 50 mcg PRN Q2HR PRN 10/24/18 17:00 10/24/18 17:05 50 MCG Guaifenesin (Robitussin Dm) 10 ml PRN Q6HRS PRN 10/25/18 09:15 Info (PHARMACY MONITORING -- do not chart) 1 each PRN DAILY PRN 10/27/18 14:45 Insulin Glargine (Lantus) 40 units DAILY08 10/25/18 08:00 10/26/18 07:44 40 UNITS Insulin Human Lispro (HumaLOG) 0-9 UNITS TIDWMEALS 10/26/18 08:00 10/28/18 08:00 3 UNITS Lactobacillus Rhamnosus (Culturelle) 1 cap BID 10/25/18 09:00 10/27/18 21:18 1 CAP Lactulose (Lactulose) 20 gm TID 10/24/18 21:00 10/25/18 13:42 20 GM Levothyroxine Sodium (Synthroid) 300 mcg DAILY06 10/25/18 10:30 10/28/18 10:16 300 MCG Lidocaine/Sodium Bicarbonate (Buffered Lidocaine 1%) 12 ml 1X ONCE 10/24/18 09:30 10/24/18 09:31 DC 10/24/18 09:30 12 ML Midodrine (Proamatine) 10 mg [id number] 10/25/18 13:00 10/28/18 07:00 10 MG Multi-Ingredient Mouthwash/Gargle (Gi Cocktail) 20 ml 1X ONCE 10/26/18 19:00 10/26/18 19:01 DC 10/26/18 18:17 20 ML Non-Formulary Medication (Albuterol Sulfate (Albuterol Sulfate Conc Neb Soln)) 2.5 mg Q6HRS PRN 10/25/18 09:15 UNV Non-Formulary Medication (Midodrine Hcl ) 10 mg [id number] 10/24/18 18:00 UNV Norepinephrine Bitartrate 250 ml @ 1.875 mls/ hr CONT PRN 10/24/18 13:30 10/26/18 07:40 DC 10/25/18 21:03 9.375 MLS/HR Nystatin (Mycostatin) 1 kiana BID 10/25/18 09:30 10/27/18 21:28 1 KIANA Ondansetron HCl (Zofran) 4 mg PRN Q6HRS PRN 10/25/18 09:15 Pantoprazole Sodium (Protonix) 40 mg DAILYAC 10/25/18 11:30 10/27/18 09:31 40 MG Phenyleph/Shark Oil/Min Oil/Petrol (Preparation H) 1 kiana PRN QID PRN 10/25/18 09:15 Piperacillin Sod/ Tazobactam Sod (Zosyn Per Pharmacy) 1 each PRN DAILY PRN 10/24/18 12:00 UNV Piperacillin Sod/ Tazobactam Sod 2.25 gm/Sodium Chloride 50 ml @ 100 mls/hr Q8HRS 10/24/18 12:00 10/28/18 05:33 100 MLS/HR Potassium Bicarbonate (Potassium Effervescent Tablet) 20 meq 1X ONCE 10/26/18 13:00 10/26/18 13:01 DC 10/26/18 13:28 20 MEQ Potassium Chloride (Klor-Con) 40 meq 1X ONCE 10/26/18 08:00 10/26/18 08:01 Cancel Rifaximin (Xifaxan) 550 mg BID 10/25/18 10:00 10/27/18 21:18 550 MG Sodium Chloride 1,000 ml @ 400 mls/hr Q2H30M PRN 10/27/18 14:38 10/28/18 02:37 DC Sodium Chloride (Normal Saline Flush) 10 ml 1X PRN PRN 10/25/18 08:45 10/26/18 08:44 DC Vitamin B Complex (Shiva B) 1 tab DAILY 10/25/18 10:00 10/27/18 09:30 1 TAB Vitamin B Complex/ Vitamin C (Tasia-Meliton) 1 tab DAILY 10/25/18 10:00 10/27/18 09:30 1 TAB Lab Laboratory Tests Test 10/27/18 12:29 10/27/18 16:00 10/27/18 21:02 10/28/18 06:44 Glucose (Fingerstick) 123 mg/dL (70-99) 121 mg/dL (70-99) 222 mg/dL (70-99) Sodium Level 141 mmol/L (136-145) Potassium Level 3.3 mmol/L (3.5-5.1) Chloride Level 105 mmol/L (98-107) Carbon Dioxide Level 26 mmol/L (21-32) Anion Gap 10 (6-14) Blood Urea Nitrogen 30 mg/dL (7-20) Creatinine 3.6 mg/dL (0.6-1.0) Estimated GFR (Cockcroft-Gault) 12.8 Glucose Level 154 mg/dL (70-99) Calcium Level 7.5 mg/dL (8.5-10.1) Test 10/28/18 07:48 Glucose (Fingerstick) 231 mg/dL (70-99) Results All relevant outside records, renal labs, imaging studies, telemetry/EKG's were reviewed. DARLING SHORT MD Oct 28, 2018 10:58
[2018-10-28] MEDS ORDERED: LIDOCAINE 1%/EPI 1:100,000 20 ML VIAL. ONE (11:04)
--- NOTE | 2018-10-28 11:30 | PDOC ---
PULMONARY PROGRESS NOTES Subjective sob better, has occ cough, ct clamped Vitals Vital Signs Date Time Temp Pulse Resp B/P (MAP) Pulse Ox O2 Delivery O2 Flow Rate FiO2 10/28/18 10:15 101 91/40 10/28/18 07:00 98.5 16 91 Room Air 98.5 10/27/18 20:00 3.0 Comments ros as mentioned as above other sys otherwise neg ROS: No Nausea, No Chest Pain General: Alert HEENT: Other (nc at perrl nose throat clear neck no lad, no thyromegaly) Lungs: Other (decrease bases) Cardiovascular: S1, S2 Abdomen: Soft, Non-tender, Other Neuro Exam: Alert, Oriented Extremities: No Edema, Other Skin: Warm Labs Laboratory Tests Test 10/26/18 11:53 10/26/18 16:47 10/26/18 21:05 10/27/18 08:03 Glucose (Fingerstick) 128 mg/dL (70-99) 205 mg/dL (70-99) 227 mg/dL (70-99) 85 mg/dL (70-99) Test 10/27/18 12:29 10/27/18 16:00 10/27/18 21:02 10/28/18 06:44 Glucose (Fingerstick) 123 mg/dL (70-99) 121 mg/dL (70-99) 222 mg/dL (70-99) Sodium Level 141 mmol/L (136-145) Potassium Level 3.3 mmol/L (3.5-5.1) Chloride Level 105 mmol/L (98-107) Carbon Dioxide Level 26 mmol/L (21-32) Anion Gap 10 (6-14) Blood Urea Nitrogen 30 mg/dL (7-20) Creatinine 3.6 mg/dL (0.6-1.0) Estimated GFR (Cockcroft-Gault) 12.8 Glucose Level 154 mg/dL (70-99) Calcium Level 7.5 mg/dL (8.5-10.1) Test 10/28/18 07:48 Glucose (Fingerstick) 231 mg/dL (70-99) Laboratory Tests Test 10/27/18 12:29 10/27/18 16:00 10/27/18 21:02 10/28/18 06:44 Glucose (Fingerstick) 123 mg/dL (70-99) 121 mg/dL (70-99) 222 mg/dL (70-99) Sodium Level 141 mmol/L (136-145) Potassium Level 3.3 mmol/L (3.5-5.1) Chloride Level 105 mmol/L (98-107) Carbon Dioxide Level 26 mmol/L (21-32) Anion Gap 10 (6-14) Blood Urea Nitrogen 30 mg/dL (7-20) Creatinine 3.6 mg/dL (0.6-1.0) Estimated GFR (Cockcroft-Gault) 12.8 Glucose Level 154 mg/dL (70-99) Calcium Level 7.5 mg/dL (8.5-10.1) Test 10/28/18 07:48 Glucose (Fingerstick) 231 mg/dL (70-99) Medications Active Scripts Medications Dose Route/Sig Max Daily Dose Days Date Category Dose Instructions Major-Prep Hemorrhoidal Oint (Phenyleph/Mineral Oil/Petrolat) 57 Gm Oint.appl 1 Efe RC PRN QID PRN 14 10/21/18 Rx Nystatin 15 Gm Oint...g. 1 Efe TP BID 30 10/21/18 Rx Clotrimazole 10 Mg Vielka 10 Mg MM BID 10 10/21/18 Rx Pantoprazole Sodium (Pantoprazole Sodium) 40 Mg Tablet.dr 40 Mg PO DAILYAC 30 10/21/18 Rx Benzonatate 100 Mg Capsule 100 Mg PO PRN Q6HRS PRN 10 10/21/18 Rx Hydrocodone-Apap 5-325 (Hydrocodone Bit/Acetaminophen) 1 Tab Tablet 1 Tab PO PRN Q6HRS PRN 30 10/21/18 Rx Proair Hfa (Albuterol Sulfate) 8.5 Gm Hfa.aer.ad 2.5 Mg NEB PRN Q6HRS PRN 30 10/21/18 Rx Midodrine Hcl 5 Mg Tablet 5 Mg PO [id number] 10/14/18 Reported Levaquin (Levofloxacin) 500 Mg Tablet 0.5 Tab PO DAILY 10/01/18 Rx Midodrine Hcl 5 Mg Tablet 10 Mg PO [id number] 14 09/10/18 Rx Benadryl (Diphenhydramine Hcl) 25 Mg Capsule 25 Mg PO PRN Q6HRS PRN 08/12/18 Reported Calcium Acetate 667 Mg Tablet 667 Mg PO TIDWMEALS 07/03/18 Reported Dialyvite Tablet (Folic Acid/Vitamin B Comp W-C) 1 Each Tablet 1 Each PO QMWF 07/03/18 Reported Omeprazole 40 Mg Capsule.dr 1 Cap PO DAILY 05/01/18 Reported Xifaxan (Rifaximin) 550 Mg Tablet 1 Tab PO BID 02/07/18 Reported Fusion Plus Capsule (Iron,Fum&Ps/Fa/Vit B&C#18/L.ca) 1 Each Capsule 1 Each PO DAILY 05/09/17 Reported Albuterol Sulfate Conc Neb Soln (Albuterol Sulfate) 2.5 Mg/0.5 Ml Vial.neb 2.5 Mg NEB Q6HRS PRN 08/03/15 Reported Lactulose 20 Gm/30 Ml Solution 20 Gm PO TID 08/03/15 Reported Lantus Solostar (Insulin Glargine,Hum.rec.anlog) 100 Unit/1 Ml Insuln.pen 40 Units SQ DAILY08 06/10/13 Reported SSI Calcium + Vitamin D Tablet (Calcium Carbonate/Vitamin D3) 1 Each Tablet 1 Each PO DAILY 06/02/13 Reported Albuterol Sulfate Hfa Inhaler (Albuterol Sulfate) 8.5 Gm Hfa.aer.ad 8.5 Gm IH PRN Q6HRS PRN 06/02/13 Reported Novolog Flexpen (Insulin Aspart) 100 Unit/1 Ml Insuln.pen 0 SQ TIDAC 06/02/13 Reported 0-149: 0 units 150-199: 2 units 200-249: 4 units 250-299: 6 units 300-349: 8 units 350-399: 10 units >400: Call Synthroid (Levothyroxine Sodium) 25 Mcg Tablet 300 Mcg PO DAILY 06/02/13 Reported Flovent 110MCG Hfa (Fluticasone Propionate) 12 Gm Aer.w.adap 1 Puff IH DAILY 06/02/13 Reported Comments cxr 10/26, reviewed Improving airspace opacities in the left hemithorax. Trace right pleural effusion. Impression . IMPRESSION: 1. Bfhnq-mc-nujkemb hypoxic respiratory failure secondary to worsening left-sided pleural effusion, likely transudative in etiology. She had multiple thoracenteses in the past, which were transudate.Transudate again on recent analysis 2. History of end-stage liver disease/cirrhosis related to nonalcoholic fatty liver. Has required multiple paracentesis and underwent another paracentesis today. 3. End-stage renal disease, on hemodialysis. 4. Chronic obstructive pulmonary disease. 5. Mild reactive leukocytosis. 6. Moderate protein-calorie malnutrition. 7. Coagulopathy secondary to cirrhosis. Plan . RECOMMENDATIONS: 1. Continue with present nasal cannula. 02 titration 2. Continue with present chest tube, has large chest tube output. pleural fluid transudated, d/w DR Reynaga and Pt. she has been in hospice. wants to go home. PleurX catheter would be reasonable to do drainage by hospice team post dc. IR consulted 3. Follow GI recommendations regarding her recurrent ascites. 4. Follow renal recommendation. 5. Agree with empiric antibiotics for now until pleural fluid cultures are back. 6. IS 7. Bronchodilators. 8. We will follow along with you. 9. Monitor blood pressure closely. discussed w rn, pt and CRISTIAN MILES MD Oct 28, 2018 11:30
[2018-10-28] MEDS ORDERED: fentaNYL PF VIAL 100 MCG/2 ML VIAL ONE (12:51)
[2018-10-28] MEDS ORDERED: MIDAZOLAM HCL/PF 2 MG/2 ML VIAL. ONE (12:51)
[2018-10-28] MEDS ORDERED: LIDOCAINE 1%/EPI 1:100,000 20 ML VIAL. IJ ONE (13:30)
[2018-10-28] MEDS ORDERED: fentaNYL PF VIAL 100 MCG/2 ML VIAL IV ONE (13:30)
[2018-10-28] MEDS ORDERED: MIDAZOLAM HCL/PF 2 MG/2 ML VIAL. IV ONE (13:30)
--- NOTE | 2018-10-28 14:09 | RAD ---
Single view of the chest. 10/28/2018 1:53 PM Indication: New chest tube placement Comparison: Chest radiograph, earlier today Findings: New left-sided tunneled thoracostomy tube is noted. Catheterization somewhat cephalad in the pleural space, as was seen during placement. The pigtail thoracostomy tube has been removed. No pneumothorax is identified. Right-sided port and left-sided dialysis catheter unchanged. Small right pleural effusion is unchanged. Mild central vascular congestion is similar to comparison exams. IMPRESSION: Interval placement of a left pigtail thoracostomy tube with a tunneled thoracostomy tube as described. Electronically signed by: Davie Wilkinson MD (10/28/2018 2:06 PM) [id number]
--- NOTE | 2018-10-28 14:13 | NUR ---
SS following up with discharge planning. SS met with pt and [facility] to discuss discharge planning. Pt reported that she wanted full aggressive care at this time and wanted to keep coming to the hospital as needed. Hospice reported that pt will not be able to return to home with there services as she will not meet the need for hospice at this time. SS discussed home healthcare with pt and pt reported that she would like home healthcare. SS spoke with pt's son and pt's [facility] case managers via phone. Pt's [facility] case managers reported that they were working to arrange private duty home services through Medicaid for pt at home to help with care. Pt's son agreeable to pt returning to home but remains concerned that pt is making unhealthy decisions for herself. SS contacted home healthcare companies and [facility], ; fax [phone], reported that they are in network with pt's insurance and could accept pending availability at the time of discharge. Pt's RN notified. SS awaiting orders for home healthcare and will proceed accordingly.
[2018-10-28] MEDS: VITAMIN B COMPLEX TABLET. PO SCH (14:40)
[2018-10-28] MEDS: CLOTRIMAZOLE 10 MG TROCHE. MM SCH ×2 (14:40→20:33)
[2018-10-28] MEDS: rifAXIMin 550 MG TABLET PO SCH ×2 (14:40→20:33)
[2018-10-28] MEDS: LACTOBACILLUS RHAMNOSUS GG 1 CAPSULE. PO SCH ×2 (14:40→20:33)
[2018-10-28] MEDS: CALCIUM CARB/VIT D3 500/200 TABLET. PO SCH (14:40)
[2018-10-28] MEDS: FOLIC/VIT B COMP W-C (RENAL) TABLET. PO SCH (14:41)
[2018-10-28] MEDS: PANTOPRAZOLE 40 MG TABLET.DR. PO SCH (14:41)
[2018-10-28] MEDS: HYDROcodone/APAP 5/325MG 1 TAB TABLET PO PRN (23:46)
[2018-10-29 03:00] VITALS: BP 101/54
[2018-10-29] MEDS: PIPERACILLIN/TAZOBACTAM 2.25 GM in IV NORMAL SALINE 50ML 50 ML IV SCH ×3 (05:20→21:01)
[2018-10-29] MEDS: LEVOTHYROXINE 150 MCG TABLET PO SCH (06:38)
[2018-10-29] MEDS: MIDODRINE 5 MG TABLET PO SCH ×3 (06:42→19:32)
[2018-10-29 07:35] VITALS: BP 101/58
[2018-10-29] MEDS: IPRATRPIUM/ALBUTEROL 0.5/2.5MG 3 ML NEBU. NEB SCH ×4 (07:42→19:07)
[2018-10-29] MEDS: BUDESONIDE 0.5 MG/2 ML NEBU. NEB SCH ×2 (07:43→19:07)
[2018-10-29] MEDS: VITAMIN B COMPLEX TABLET. PO SCH (08:47)
[2018-10-29] MEDS: FOLIC/VIT B COMP W-C (RENAL) TABLET. PO SCH (08:47)
[2018-10-29] MEDS: LACTOBACILLUS RHAMNOSUS GG 1 CAPSULE. PO SCH ×2 (08:47→21:00)
[2018-10-29] MEDS: CALCIUM CARB/VIT D3 500/200 TABLET. PO SCH (08:47)
[2018-10-29] MEDS: PANTOPRAZOLE 40 MG TABLET.DR. PO SCH (08:48)
[2018-10-29] MEDS: rifAXIMin 550 MG TABLET PO SCH ×2 (08:48→21:00)
[2018-10-29] MEDS: CLOTRIMAZOLE 10 MG TROCHE. MM SCH ×2 (08:48→21:00)
[2018-10-29] MEDS: CALCIUM ACETATE 667 MG CAPSULE PO SCH ×3 (08:48→19:31)
[2018-10-29] MEDS: INSULIN GLARGINE 300 UNITS/3 ML INSULN.PEN. SQ SCH (08:58)
[2018-10-29] MEDS: LACTULOSE 20 GM/30 ML SOLUTION. PO SCH ×3 (09:00→21:10)
[2018-10-29] MEDS: NYSTATIN 100,000 UNIT/GM TOPICAL OINTMENT 15GM TUBE. TP SCH ×2 (09:00→21:00)
[2018-10-29] MEDS: INSULIN LISPRO 300 UNITS/3 ML INSULN.PEN. SQ SCH ×3 (09:00→17:00)
--- NOTE | 2018-10-29 09:04 | RAD ---
Chest radiograph 10/29/2018 9:00 AM INDICATION: Pleural effusions COMPARISON: October 28, 2018 TECHNIQUE: Portable frontal semi-upright view of the chest is provided. FINDINGS: The cardiomediastinal silhouette is similar in appearance. Left chest wall double lumen catheter is identified with the distal tip projecting over the right atrium. Right chest wall infusion port catheter is identified in similar position. Left sided thoracostomy tube is in similar position. There is increase in moderate left pleural effusion and adjacent compressive atelectasis versus infiltrate. Similar to slight interval increase in small to moderate right pleural effusion. Mild to moderate pulmonary vascular congestion appears similar. Is a tiny left apical pneumothorax with a millimeters pleural separation. IMPRESSION: Worsening bilateral pleural effusions with interval development of tiny left apical pneumothorax measuring 8 mm in pleural separation. Critical result: Findings discussed with the patients nurse, Yuli, at 10/29/2018 8:59 AM. FOR INTERNAL CODING PURPOSES RESULT CODE: (C) Electronically signed by: Corina Abbott MD (10/29/2018 9:01 AM) [id number]
--- NOTE | 2018-10-29 10:10 | PDOC ---
PULMONARY PROGRESS NOTES Subjective sob better, has occ cough, s/p pleurX catheter Vitals Vital Signs Date Time Temp Pulse Resp B/P (MAP) Pulse Ox O2 Delivery O2 Flow Rate FiO2 10/29/18 07:35 97.8 92 18 101/58 (72) 96 Room Air 97.8 10/29/18 00:46 3.0 Comments ros as mentioned as above other sys otherwise neg ROS: No Nausea, No Chest Pain General: Alert HEENT: Other (nc at perrl nose throat clear neck no lad, no thyromegaly) Lungs: Other (decrease bases) Cardiovascular: S1, S2 Abdomen: Soft, Non-tender, Other Neuro Exam: Alert, Oriented Extremities: No Edema, Other Skin: Warm Labs Laboratory Tests Test 10/27/18 12:29 10/27/18 16:00 10/27/18 21:02 10/28/18 06:44 Glucose (Fingerstick) 123 mg/dL (70-99) 121 mg/dL (70-99) 222 mg/dL (70-99) Sodium Level 141 mmol/L (136-145) Potassium Level 3.3 mmol/L (3.5-5.1) Chloride Level 105 mmol/L (98-107) Carbon Dioxide Level 26 mmol/L (21-32) Anion Gap 10 (6-14) Blood Urea Nitrogen 30 mg/dL (7-20) Creatinine 3.6 mg/dL (0.6-1.0) Estimated GFR (Cockcroft-Gault) 12.8 Glucose Level 154 mg/dL (70-99) Calcium Level 7.5 mg/dL (8.5-10.1) Test 10/28/18 07:48 10/28/18 11:50 10/28/18 17:31 10/28/18 20:40 Glucose (Fingerstick) 231 mg/dL (70-99) 182 mg/dL (70-99) 282 mg/dL (70-99) 290 mg/dL (70-99) Test 10/29/18 08:24 Glucose (Fingerstick) 319 mg/dL (70-99) Laboratory Tests Test 10/28/18 11:50 10/28/18 17:31 10/28/18 20:40 10/29/18 08:24 Glucose (Fingerstick) 182 mg/dL (70-99) 282 mg/dL (70-99) 290 mg/dL (70-99) 319 mg/dL (70-99) Medications Active Scripts Medications Dose Route/Sig Max Daily Dose Days Date Category Dose Instructions Major-Prep Hemorrhoidal Oint (Phenyleph/Mineral Oil/Petrolat) 57 Gm Oint.appl 1 Efe RC PRN QID PRN 14 10/21/18 Rx Nystatin 15 Gm Oint...g. 1 Efe TP BID 30 10/21/18 Rx Clotrimazole 10 Mg Vielka 10 Mg MM BID 10 10/21/18 Rx Pantoprazole Sodium (Pantoprazole Sodium) 40 Mg Tablet.dr 40 Mg PO DAILYAC 30 10/21/18 Rx Benzonatate 100 Mg Capsule 100 Mg PO PRN Q6HRS PRN 10 10/21/18 Rx Hydrocodone-Apap 5-325 (Hydrocodone Bit/Acetaminophen) 1 Tab Tablet 1 Tab PO PRN Q6HRS PRN 30 10/21/18 Rx Proair Hfa (Albuterol Sulfate) 8.5 Gm Hfa.aer.ad 2.5 Mg NEB PRN Q6HRS PRN 30 10/21/18 Rx Midodrine Hcl 5 Mg Tablet 5 Mg PO [id number] 10/14/18 Reported Levaquin (Levofloxacin) 500 Mg Tablet 0.5 Tab PO DAILY 10/01/18 Rx Midodrine Hcl 5 Mg Tablet 10 Mg PO [id number] 14 09/10/18 Rx Benadryl (Diphenhydramine Hcl) 25 Mg Capsule 25 Mg PO PRN Q6HRS PRN 08/12/18 Reported Calcium Acetate 667 Mg Tablet 667 Mg PO TIDWMEALS 07/03/18 Reported Dialyvite Tablet (Folic Acid/Vitamin B Comp W-C) 1 Each Tablet 1 Each PO QMWF 07/03/18 Reported Omeprazole 40 Mg Capsule. 1 Cap PO DAILY 05/01/18 Reported Xifaxan (Rifaximin) 550 Mg Tablet 1 Tab PO BID 02/07/18 Reported Fusion Plus Capsule (Iron,Fum&Ps/Fa/Vit B&C#18/L.ca) 1 Each Capsule 1 Each PO DAILY 05/09/17 Reported Albuterol Sulfate Conc Neb Soln (Albuterol Sulfate) 2.5 Mg/0.5 Ml Vial.neb 2.5 Mg NEB Q6HRS PRN 08/03/15 Reported Lactulose 20 Gm/30 Ml Solution 20 Gm PO TID 08/03/15 Reported Lantus Solostar (Insulin Glargine,Hum.rec.anlog) 100 Unit/1 Ml Insuln.pen 40 Units SQ DAILY08 06/10/13 Reported SSI Calcium + Vitamin D Tablet (Calcium Carbonate/Vitamin D3) 1 Each Tablet 1 Each PO DAILY 06/02/13 Reported Albuterol Sulfate Hfa Inhaler (Albuterol Sulfate) 8.5 Gm Hfa.aer.ad 8.5 Gm IH PRN Q6HRS PRN 06/02/13 Reported Novolog Flexpen (Insulin Aspart) 100 Unit/1 Ml Insuln.pen 0 SQ TIDAC 06/02/13 Reported 0-149: 0 units 150-199: 2 units 200-249: 4 units 250-299: 6 units 300-349: 8 units 350-399: 10 units >400: Call Synthroid (Levothyroxine Sodium) 25 Mcg Tablet 300 Mcg PO DAILY 06/02/13 Reported Flovent 110MCG Hfa (Fluticasone Propionate) 12 Gm Aer.w.adap 1 Puff IH DAILY 06/02/13 Reported Comments cxr 10/29, reviewed increase effusions, tiny left apical PTX Impression . IMPRESSION: 1. Ndbxb-rv-aoljgcv hypoxic respiratory failure secondary to worsening left-sided pleural effusion, likely transudative in etiology. She had multiple thoracenteses in the past, which were transudate.Transudate again on recent analysis 2. History of end-stage liver disease/cirrhosis related to nonalcoholic fatty liver. Has required multiple paracentesis and underwent another paracentesis today. 3. End-stage renal disease, on hemodialysis. 4. Chronic obstructive pulmonary disease. 5. Mild reactive leukocytosis. 6. Moderate protein-calorie malnutrition. 7. Coagulopathy secondary to cirrhosis. Plan . RECOMMENDATIONS: 1. Continue with present nasal cannula. 02 titration 2. s/p PleurX catheter , drain as needed. f/u CXR on PTX ,small , no intervention at present 3. Follow GI recommendations regarding her recurrent ascites. 4. Follow renal recommendation. 5. Agree with empiric antibiotics for now until pleural fluid cultures are back. 6. IS 7. Bronchodilators. 8. We will follow along with you. 9. Monitor blood pressure closely. discussed w rn, pt CRISTIAN AGUIRRE MD Oct 29, 2018 10:10
--- NOTE | 2018-10-29 10:16 | PDOC ---
SUBJECTIVE ROS Stable, OBJECTIVE Vital Signs Vital Signs Date Time Temp Pulse Resp B/P (MAP) Pulse Ox O2 Delivery O2 Flow Rate FiO2 10/29/18 07:35 97.8 92 18 101/58 (72) 96 Room Air 97.8 10/29/18 00:46 3.0 I & 0 Intake and Output 10/29/18 06:59 Intake Total 880 ml Output Total 950 ml Balance -70 ml Intake Oral 880 ml Drainage Total 950 ml # Voids 1 # Bowel Movements 2 PHYSICAL EXAM Physical Exam General: Alert, Heart: Regular rate, Normal S1, Normal S2, No murmurs, Gallops Lungs: Other (decrease bases) Abdomen: Normal bowel sounds, Soft, No tenderness, No hepatosplenomegaly, No masses Extremities: No clubbing, No cyanosis, No edema, Normal pulses, No tenderness/swelling Skin: No rashes, No breakdown DIAGNOSIS/ASSESSMENT Assessment & Plan ESRD - On HD MWF- [facility]- Dr Tracy On midodrine for hypotension HD today as ordered , [facility] Left Pleural effusion - recurrent Has PleurX catheter [id number] hypoxic respiratory failure secondary to worsening left-sided pleural effusion, likely transudative in etiology. She had multiple thoracenteses in the past, which were transudate End-stage liver disease with recurrent ascites Requires weekly paracentesis s/p on 10/24 - lts drained Chronic anemia - EGD 04/24/18: grade 1 varices, gastritis. DM2 Non Compliance with HD Dced Home last week on Home Hospice COMMENT/RELEVANT DATA Meds Current Medications Medications (Trade) Dose Ordered Sig/Emanuel Start Time Stop Time Status Last Admin Dose Admin Acetaminophen/ Hydrocodone Bitart (Lortab 5/325) 1 tab PRN Q6HRS PRN 10/24/18 18:30 10/28/18 23:46 1 TAB Albumin Human 200 ml @ 200 mls/hr 1X PRN PRN 10/25/18 08:45 10/25/18 14:44 DC Albuterol Sulfate (Ventolin Neb Soln) 2.5 mg PRN Q6HRS PRN 10/25/18 09:45 Albuterol/ Ipratropium (Duoneb) 3 ml RTQID 10/24/18 12:00 10/27/18 08:17 3 ML Benzonatate (Tessalon Perle) 100 mg PRN Q6HRS PRN 10/25/18 14:00 Budesonide (Pulmicort) 0.5 mg RTBID 10/24/18 20:00 10/27/18 08:17 0.5 MG Calcium Acetate (Phoslo) 667 mg TIDWMEALS 10/25/18 12:00 10/29/18 08:48 667 MG Calcium/Vitamin D (Oscal D 500mg/ 200uts) 1 tab DAILY08 10/25/18 10:00 10/29/18 08:47 1 TAB Clotrimazole (Mycelex) 10 mg BID 10/25/18 09:15 10/29/18 08:48 10 MG Dextrose (Dextrose 50%-Water Syringe) 12.5 gm PRN Q15MIN PRN 10/26/18 07:45 Diphenhydramine HCl (Benadryl) 25 mg 1X PRN PRN 10/27/18 14:45 10/28/18 14:44 DC Fentanyl Citrate (Fentanyl 2ml Vial) 100 mcg 1X ONCE 10/28/18 13:30 10/28/18 13:31 DC 10/28/18 13:30 25 MCG Guaifenesin (Robitussin Dm) 10 ml PRN Q6HRS PRN 10/25/18 09:15 Info (PHARMACY MONITORING -- do not chart) 1 each PRN DAILY PRN 10/27/18 14:45 Insulin Glargine (Lantus) 40 units DAILY08 10/25/18 08:00 10/29/18 08:58 40 UNITS Insulin Human Lispro (HumaLOG) 0-9 UNITS TIDWMEALS 10/26/18 08:00 10/29/18 09:00 9 UNITS Lactobacillus Rhamnosus (Culturelle) 1 cap BID 10/25/18 09:00 10/29/18 08:47 1 CAP Lactulose (Lactulose) 20 gm TID 10/24/18 21:00 10/28/18 20:33 20 GM Levothyroxine Sodium (Synthroid) 300 mcg DAILY06 10/25/18 10:30 10/29/18 06:38 300 MCG Lidocaine/ Epinephrine (LIDOCAINE 1%-EPI 1:100,000 Multi-Dose) 20 ml 1X ONCE 10/28/18 13:30 10/28/18 13:31 DC 10/28/18 13:30 18 ML Lidocaine/Sodium Bicarbonate (Buffered Lidocaine 1%) 12 ml 1X ONCE 10/24/18 09:30 10/24/18 09:31 DC 10/24/18 09:30 12 ML Midazolam HCl (Versed) 2 mg 1X ONCE 10/28/18 13:30 10/28/18 13:31 DC 10/28/18 13:30 0.5 MG Midodrine (Proamatine) 10 mg [id number] 10/25/18 13:00 10/29/18 06:42 10 MG Multi-Ingredient Mouthwash/Gargle (Gi Cocktail) 20 ml 1X ONCE 10/26/18 19:00 10/26/18 19:01 DC 10/26/18 18:17 20 ML Non-Formulary Medication (Albuterol Sulfate (Albuterol Sulfate Conc Neb Soln)) 2.5 mg Q6HRS PRN 10/25/18 09:15 UNV Non-Formulary Medication (Midodrine Hcl ) 10 mg [id number] 10/24/18 18:00 UNV Norepinephrine Bitartrate 250 ml @ 1.875 mls/ hr CONT PRN 10/24/18 13:30 10/26/18 07:40 DC 10/25/18 21:03 9.375 MLS/HR Nystatin (Mycostatin) 1 kiana BID 10/25/18 09:30 10/27/18 21:28 1 KIANA Ondansetron HCl (Zofran) 4 mg PRN Q6HRS PRN 10/25/18 09:15 Pantoprazole Sodium (Protonix) 40 mg DAILYAC 10/25/18 11:30 10/29/18 08:48 40 MG Phenyleph/Shark Oil/Min Oil/Petrol (Preparation H) 1 kiana PRN QID PRN 10/25/18 09:15 Piperacillin Sod/ Tazobactam Sod (Zosyn Per Pharmacy) 1 each PRN DAILY PRN 10/24/18 12:00 UNV Piperacillin Sod/ Tazobactam Sod 2.25 gm/Sodium Chloride 50 ml @ 100 mls/hr Q8HRS 10/24/18 12:00 10/29/18 05:20 100 MLS/HR Potassium Bicarbonate (Potassium Effervescent Tablet) 20 meq 1X ONCE 10/26/18 13:00 10/26/18 13:01 DC 10/26/18 13:28 20 MEQ Potassium Chloride (Klor-Con) 40 meq 1X ONCE 10/26/18 08:00 10/26/18 08:01 Cancel Rifaximin (Xifaxan) 550 mg BID 10/25/18 10:00 10/29/18 08:48 550 MG Sodium Chloride 1,000 ml @ 400 mls/hr Q2H30M PRN 10/27/18 14:38 10/28/18 02:37 DC Sodium Chloride (Normal Saline Flush) 10 ml 1X PRN PRN 10/25/18 08:45 10/26/18 08:44 DC Vitamin B Complex (Shiva B) 1 tab DAILY 10/25/18 10:00 10/29/18 08:47 1 TAB Vitamin B Complex/ Vitamin C (Tasia-Meliton) 1 tab DAILY 10/25/18 10:00 10/29/18 08:47 1 TAB Lab Laboratory Tests Test 10/28/18 11:50 10/28/18 17:31 10/28/18 20:40 10/29/18 08:24 Glucose (Fingerstick) 182 mg/dL (70-99) 282 mg/dL (70-99) 290 mg/dL (70-99) 319 mg/dL (70-99) Results All relevant outside records, renal labs, imaging studies, telemetry/EKG's were reviewed. DARLING SHORT MD Oct 29, 2018 10:16
[2018-10-29 10:59] VITALS: BP 106/53
--- NOTE | 2018-10-29 14:03 | PDOC ---
PROGRESS NOTES Chief Complaint Chief Complaint discharge dx Hypovolemic shock status post large volume paracentesis, status post large- volume thoracentesis-10 L total 10/24/2018 ESRD on dialysis Saturday Anemia of ESRD Generalized weakness/functional quadriplegia on hospice Full code Hypotension on midodrine with normal TSH and cortisol recently Diabetes type 2 on insulin with A1c 6.8 Leukocytosis, SIRS WBC 13 HOSPICE Interval placement of a left pigtail thoracostomy tube with a tunneled thoracostomy tube as described. 10/28 Chronic anemia - EGD 04/24/18: grade 1 varices, gastritis. History of Present Illness History of Present Illness Off levophed, t/o ICU saturday Was on home hospice BUT REVOKED TO BE ADMITTED Pleurx placed Plan PleurX catheter would be reasonable to do drainage by hospice team post dc. IR consulted discussed with her, agreeable to Pleurx for symptom relief Dialysis per renal [facility] after Pleurx catheter on home health [place] Discussed with patient, RN She is full code despite being on hospice - wanted full code Interval placement of a left pigtail thoracostomy tube with a tunneled thoracostomy tube as described. 10/28 33 MIN PT EXAM, CHART REVIEW d/c planning , > 50% OF TIME SPENT WITH EXAM, CHART REVIEW, PT CARE COORDINATION Vitals Vitals Vital Signs Date Time Temp Pulse Resp B/P (MAP) Pulse Ox O2 Delivery O2 Flow Rate FiO2 10/29/18 12:59 102 106/53 10/29/18 10:59 98.0 18 96 Room Air 98.0 10/29/18 00:46 3.0 Physical Exam General: Alert, Cooperative, No acute distress, Other (REFUFING MEDS) Heart: Regular rate, Normal S1, Normal S2, No murmurs, Gallops Lungs: Other (decrease bases) Abdomen: Normal bowel sounds, Soft, No tenderness, No hepatosplenomegaly, No masses Extremities: No clubbing, No cyanosis, No edema, Normal pulses, No tenderness/swelling Skin: No rashes, No breakdown Labs LABS Laboratory Tests Test 10/28/18 17:31 10/28/18 20:40 10/29/18 08:24 10/29/18 11:46 Glucose (Fingerstick) 282 mg/dL (70-99) 290 mg/dL (70-99) 319 mg/dL (70-99) 241 mg/dL (70-99) Assessment and Plan Assessmemt and Plan Problems Medical Problems: (1) Acute and chronic respiratory failure Status: Acute (2) Hypotension Status: Acute (3) Pleural effusion Status: Acute Comment Review of Relevant I have reviewed the following items chante (where applicable) has been applied. Labs Laboratory Tests Test 10/27/18 16:00 10/27/18 21:02 10/28/18 06:44 10/28/18 07:48 Sodium Level 141 mmol/L (136-145) Potassium Level 3.3 mmol/L (3.5-5.1) Chloride Level 105 mmol/L (98-107) Carbon Dioxide Level 26 mmol/L (21-32) Anion Gap 10 (6-14) Blood Urea Nitrogen 30 mg/dL (7-20) Creatinine 3.6 mg/dL (0.6-1.0) Estimated GFR (Cockcroft-Gault) 12.8 Glucose Level 154 mg/dL (70-99) Calcium Level 7.5 mg/dL (8.5-10.1) Glucose (Fingerstick) 121 mg/dL (70-99) 222 mg/dL (70-99) 231 mg/dL (70-99) Test 10/28/18 11:50 10/28/18 17:31 10/28/18 20:40 10/29/18 08:24 Glucose (Fingerstick) 182 mg/dL (70-99) 282 mg/dL (70-99) 290 mg/dL (70-99) 319 mg/dL (70-99) Test 10/29/18 11:46 Glucose (Fingerstick) 241 mg/dL (70-99) Laboratory Tests Test 10/28/18 17:31 10/28/18 20:40 10/29/18 08:24 10/29/18 11:46 Glucose (Fingerstick) 282 mg/dL (70-99) 290 mg/dL (70-99) 319 mg/dL (70-99) 241 mg/dL (70-99) Microbiology 10/24/18 Blood Culture - Final, Complete NO GROWTH AFTER 5 DAYS 10/24/18 Anaerobic/Aerobic Culture - Preliminary, Resulted 10/24/18 Anaerobic Culture Result 1 (JOSE) - Preliminary, Resulted 10/24/18 Aerobic Culture - Final, Resulted 10/24/18 Aerobic Culture Result 1 (JOSE) - Final, Resulted 10/24/18 Gram Stain - Final, Resulted 10/24/18 Gram Stain Result 1 (JOSE) - Final, Resulted 10/24/18 Gram Stain Result 2 (JOSE) - Final, Resulted Medications Current Medications Sodium Chloride 1,000 ml @ 1,000 mls/hr 1X ONCE IV Last administered on 10/24/18at 10:00; Start 10/24/18 at 08:15; Stop 10/24/18 at 09:14; Status DC Lidocaine/Sodium Bicarbonate (Buffered Lidocaine 1%) 12 ml 1X ONCE IJ Last administered on 10/24/18at 09:30; Start 10/24/18 at 09:30; Stop 10/24/18 at 09:31; Status DC Albumin Human 100 ml @ 100 mls/hr 1X ONCE IV Last administered on 10/24/18at 09:30; Start 10/24/18 at 09:30; Stop 10/24/18 at 10:29; Status DC Albumin Human 100 ml @ 100 mls/hr 1X ONCE IV Last administered on 10/24/18at 11:38; Start 10/24/18 at 09:30; Stop 10/24/18 at 10:29; Status DC Albumin Human 100 ml @ 100 mls/hr 1X ONCE IV Last administered on 10/24/18at 09:20; Start 10/24/18 at 09:30; Stop 10/24/18 at 10:29; Status DC Fentanyl Citrate (Fentanyl 2ml Vial) 50 mcg 1X ONCE IV Last administered on 10/24/18at 11:42; Start 10/24/18 at 11:00; Stop 10/24/18 at 11:01; Status DC Piperacillin Sod/ Tazobactam Sod (Zosyn Per Pharmacy) 1 each PRN DAILY PRN MC SEE COMMENTS; Start 10/24/18 at 11:30 Piperacillin Sod/ Tazobactam Sod 2.25 gm/Sodium Chloride 50 ml @ 100 mls/hr Q8HRS IV Last administered on 10/29/18at 05:20; Start 10/24/18 at 12:00 Ondansetron HCl (Zofran) 4 mg PRN Q8HRS PRN IV NAUSEA/VOMITING; Start 10/24/18 at 11:45; Stop 10/25/18 at 09:05; Status DC Albuterol/ Ipratropium (Duoneb) 3 ml RTQID NEB Last administered on 10/27/18 08:17; Start 10/24/18 at 12:00 Piperacillin Sod/ Tazobactam Sod (Zosyn Per Pharmacy) 1 each PRN DAILY PRN MC SEE COMMENTS; Start 10/24/18 at 12:00; Status UNV Sodium Chloride 500 ml @ 500 mls/hr 1X ONCE IV Last administered on 10/24/18 13:29; Start 10/24/18 at 13:30; Stop 10/24/18 at 14:29; Status DC Norepinephrine Bitartrate 250 ml @ 1.875 mls/ hr CONT PRN IV SEE I/O RECORD Last administered on 10/25/18 21:03; Start 10/24/18 at 13:30; Stop 10/26/18 at 07:40; Status DC Albumin Human 100 ml @ 100 mls/hr 1X ONCE IV Last administered on 10/24/18at 15:30; Start 10/24/18 at 15:30; Stop 10/24/18 at 16:29; Status DC Albumin Human 100 ml @ As Directed STK-MED ONCE IV ; Start 10/24/18 at 15:23; Stop 10/24/18 at 15:24; Status DC Fentanyl Citrate (Fentanyl 2ml Vial) 50 mcg PRN Q2HR PRN IV PAIN Last administered on 10/24/18 17:05; Start 10/24/18 at 17:00 Insulin Glargine (Lantus) 40 units DAILY08 SQ Last administered on 10/29/18 08:58; Start 10/25/18 at 08:00 Lactulose (Lactulose) 20 gm TID PO Last administered on 10/28/18 20:33; Start 10/24/18 at 21:00 Budesonide (Pulmicort) 0.5 mg RTBID NEB Last administered on 10/27/18 08:17; Start 10/24/18 at 20:00 Midodrine (Proamatine) 5 mg [id number] PO Last administered on 10/25/18at 08:40; Start 10/25/18 at 09:00; Stop 10/25/18 at 09:07; Status DC Non-Formulary Medication (Midodrine Hcl ) 10 mg [id number] PO ; Start 10/24/18 at 18:00; Status UNV Acetaminophen/ Hydrocodone Bitart (Lortab 5/325) 1 tab PRN Q6HRS PRN PO PAIN Last administered on 10/28/18at 23:46; Start 10/24/18 at 18:30 Lactobacillus Rhamnosus (Culturelle) 1 cap BID PO Last administered on 10/29/18at 08:47; Start 10/25/18 at 09:00 Albumin Human 200 ml @ 200 mls/hr 1X PRN PRN IV Hypotension; Start 10/25/18 at 08:45; Stop 10/25/18 at 14:44; Status DC Sodium Chloride (Normal Saline Flush) 10 ml 1X PRN PRN IV AP catheter pack; Start 10/25/18 at 08:45; Stop 10/26/18 at 08:44; Status DC Sodium Chloride (Normal Saline Flush) 10 ml 1X PRN PRN IV DIG[employer]IST catheter pack; Start 10/25/18 at 08:45; Stop 10/26/18 at 08:44; Status DC Sodium Chloride 1,000 ml @ 400 mls/hr Q2H30M PRN IV PATENCY; Start 10/25/18 at 08:42; Stop 10/25/18 at 20:41; Status DC Info (PHARMACY MONITORING -- do not chart) 1 each PRN DAILY PRN MC SEE COMMENTS; Start 10/25/18 at 08:45; Status UNV Info (PHARMACY MONITORING -- do not chart) 1 each PRN DAILY PRN MC SEE COMMENTS; Start 10/25/18 at 08:45; Stop 10/28/18 at 12:54; Status DC Ondansetron HCl (Zofran) 4 mg PRN Q6HRS PRN IV NAUSEA/VOMITING; Start 10/25/18 at 09:15 Guaifenesin (Robitussin Dm) 10 ml PRN Q6HRS PRN PO COUGH, 1ST CHOICE; Start 10/25/18 at 09:15 Clotrimazole (Mycelex) 10 mg BID MM Last administered on 10/29/18at 08:48; Start 10/25/18 at 09:15 Diphenhydramine HCl (Benadryl) 25 mg PRN Q6HRS PRN PO ITCHING; Start 10/25/18 at 09:15 Nystatin (Mycostatin) 1 efe BID TP Last administered on 10/27/18 21:28; Start 10/25/18 at 09:30 Pantoprazole Sodium (Protonix) 40 mg DAILYAC PO Last administered on 10/29/18 08:48; Start 10/25/18 at 11:30 Phenyleph/Shark Oil/Min Oil/Petrol (Preparation H) 1 efe PRN QID PRN RC RECTAL PAIN; Start 10/25/18 at 09:15 Rifaximin (Xifaxan) 550 mg BID PO Last administered on 10/29/18 08:48; Start 10/25/18 at 10:00 Non-Formulary Medication (Albuterol Sulfate (Albuterol Sulfate Conc Neb Soln)) 2.5 mg Q6HRS PRN NEB SHORTNESS OF BREATH; Start 10/25/18 at 09:15; Status UNV Benzonatate (Tessalon Perle) 100 mg PRN Q6HRS PRN PO COUGH, 2ND CHOICE; Start 10/25/18 at 14:00 Calcium Acetate (Phoslo) 667 mg TIDWMEALS PO Last administered on 10/29/18 12:59; Start 10/25/18 at 12:00 Calcium/Vitamin D (Oscal D 500mg/ 200uts) 1 tab DAILY08 PO Last administered on 10/29/18 08:47; Start 10/25/18 at 10:00 Vitamin B Complex/ Vitamin C (Tasia-Meliton) 1 tab DAILY PO Last administered on 10/29/18 08:47; Start 10/25/18 at 10:00 Vitamin B Complex (Shiva B) 1 tab DAILY PO Last administered on 10/29/18 08:47; Start 10/25/18 at 10:00 Levothyroxine Sodium (Synthroid) 300 mcg DAILY06 PO Last administered on 10/29/18 06:38; Start 10/25/18 at 10:30 Midodrine (Proamatine) 10 mg [id number] PO Last administered on 10/29/18 12:59; Start 10/25/18 at 13:00 Albuterol Sulfate (Ventolin Neb Soln) 2.5 mg PRN Q6HRS PRN NEB SHORTNESS OF BREATH; Start 10/25/18 at 09:45 Sodium Chloride 500 ml @ 500 mls/hr 1X ONCE IV Last administered on 10/25/18at 14:06; Start 10/25/18 at 14:00; Stop 10/25/18 at 14:59; Status DC Insulin Human Lispro (HumaLOG) 0-7 UNITS TIDWMEALS SQ ; Start 10/26/18 at 08:00; Stop 10/26/18 at 08:00; Status DC Dextrose (Dextrose 50%-Water Syringe) 12.5 gm PRN Q15MIN PRN IV SEE COMMENTS; Start 10/26/18 at 03:30; Stop 10/26/18 at 07:45; Status DC Potassium Chloride (Klor-Con) 20 meq 1X ONCE PO ; Start 10/26/18 at 10:00; Stop 10/26/18 at 10:01; Status Cancel Potassium Chloride (Klor-Con) 40 meq 1X ONCE PO ; Start 10/26/18 at 08:00; Stop 10/26/18 at 08:01; Status Cancel Insulin Human Lispro (HumaLOG) 0-9 UNITS TIDWMEALS SQ Last administered on 10/29/18at 13:03; Start 10/26/18 at 08:00 Dextrose (Dextrose 50%-Water Syringe) 12.5 gm PRN Q15MIN PRN IV SEE COMMENTS; Start 10/26/18 at 07:45 Potassium Bicarbonate (Potassium Effervescent Tablet) 40 meq 1X ONCE PO Last administered on 10/26/18at 10:56; Start 10/26/18 at 11:00; Stop 10/26/18 at 11:01; Status DC Potassium Bicarbonate (Potassium Effervescent Tablet) 20 meq 1X ONCE PO Last administered on 10/26/18at 13:28; Start 10/26/18 at 13:00; Stop 10/26/18 at 13:01; Status DC Multi-Ingredient Mouthwash/Gargle (Gi Cocktail) 20 ml 1X ONCE SWSW Last administered on 10/26/18at 18:17; Start 10/26/18 at 19:00; Stop 10/26/18 at 19:01; Status DC Sodium Chloride 1,000 ml @ 1,000 mls/hr Q1H PRN IV hypotension; Start 10/27/18 at 14:38; Stop 10/27/18 at 20:37; Status DC Diphenhydramine HCl (Benadryl) 25 mg 1X PRN PRN IV ITCHING; Start 10/27/18 at 14:45; Stop 10/28/18 at 14:44; Status DC Diphenhydramine HCl (Benadryl) 25 mg 1X PRN PRN IV ITCHING; Start 10/27/18 at 14:45; Stop 10/28/18 at 14:44; Status DC Sodium Chloride 1,000 ml @ 400 mls/hr Q2H30M PRN IV PATENCY; Start 10/27/18 at 14:38; Stop 10/28/18 at 02:37; Status DC Info (PHARMACY MONITORING -- do not chart) 1 each PRN DAILY PRN MC SEE COMMENTS; Start 10/27/18 at 14:45; Status UNV Info (PHARMACY MONITORING -- do not chart) 1 each PRN DAILY PRN MC SEE COMMENTS; Start 10/27/18 at 14:45 Lidocaine/ Epinephrine (LIDOCAINE 1%-EPI 1:100,000 Multi-Dose) 20 ml STK-MED ONCE .ROUTE ; Start 10/28/18 at 11:04; Stop 10/28/18 at 11:05; Status DC Midazolam HCl (Versed) 2 mg STK-MED ONCE .ROUTE ; Start 10/28/18 at 12:51; Stop 10/28/18 at 12:52; Status DC Fentanyl Citrate (Fentanyl 2ml Vial) 100 mcg STK-MED ONCE .ROUTE ; Start 10/28/18 at 12:51; Stop 10/28/18 at 12:52; Status DC Midazolam HCl (Versed) 2 mg 1X ONCE IV Last administered on 10/28/18at 13:30; Start 10/28/18 at 13:30; Stop 10/28/18 at 13:31; Status DC Fentanyl Citrate (Fentanyl 2ml Vial) 100 mcg 1X ONCE IV Last administered on 10/28/18at 13:30; Start 10/28/18 at 13:30; Stop 10/28/18 at 13:31; Status DC Lidocaine/ Epinephrine (LIDOCAINE 1%-EPI 1:100,000 Multi-Dose) 20 ml 1X ONCE IJ Last administered on 7/9/19at 13:30; Start 10/28/18 at 13:30; Stop 10/28/18 at 13:31; Status DC Active Scripts Active Major-Prep Hemorrhoidal Oint (Phenyleph/Mineral Oil/Petrolat) 57 Gm Oint.appl 1 Efe RC PRN QID PRN 14 Days Nystatin 15 Gm Oint...g. 1 Efe TP BID 30 Days Clotrimazole 10 Mg Vielka 10 Mg MM BID 10 Days Pantoprazole Sodium (Pantoprazole Sodium) 40 Mg Tablet.dr 40 Mg PO DAILYAC 30 Days Benzonatate 100 Mg Capsule 100 Mg PO PRN Q6HRS PRN 10 Days Hydrocodone-Apap 5-325 (Hydrocodone Bit/Acetaminophen) 1 Tab Tablet 1 Tab PO PRN Q6HRS PRN 30 Days Proair Hfa (Albuterol Sulfate) 8.5 Gm Hfa.aer.ad 2.5 Mg NEB PRN Q6HRS PRN 30 Days Levaquin (Levofloxacin) 500 Mg Tablet 0.5 Tab PO DAILY Midodrine Hcl 5 Mg Tablet 10 Mg PO [id number] 14 Days Reported Midodrine Hcl 5 Mg Tablet 5 Mg PO BID92 Benadryl (Diphenhydramine Hcl) 25 Mg Capsule 25 Mg PO PRN Q6HRS PRN Calcium Acetate 667 Mg Tablet 667 Mg PO TIDWMEALS Dialyvite Tablet (Folic Acid/Vitamin B Comp W-C) 1 Each Tablet 1 Each PO QMWF Omeprazole 40 Mg Capsule.dr 1 Cap PO DAILY Xifaxan (Rifaximin) 550 Mg Tablet 1 Tab PO BID Fusion Plus Capsule (Iron,Fum&Ps/Fa/Vit B&C#18/L.ca) 1 Each Capsule 1 Each PO DAILY Albuterol Sulfate Conc Neb Soln (Albuterol Sulfate) 2.5 Mg/0.5 Ml Vial.neb 2.5 Mg NEB Q6HRS PRN Lactulose 20 Gm/30 Ml Solution 20 Gm PO TID Lantus Solostar (Insulin Glargine,Hum.rec.anlog) 100 Unit/1 Ml Insuln.pen 40 Units SQ DAILY08 SSI Calcium + Vitamin D Tablet (Calcium Carbonate/Vitamin D3) 1 Each Tablet 1 Each PO DAILY Albuterol Sulfate Hfa Inhaler (Albuterol Sulfate) 8.5 Gm Hfa.aer.ad 8.5 Gm IH PRN Q6HRS PRN Novolog Flexpen (Insulin Aspart) 100 Unit/1 Ml Insuln.pen 0 SQ TIDAC 0-149: 0 units 150-199: 2 units 200-249: 4 units 250-299: 6 units 300-349: 8 units 350-399: 10 units >400: Call Synthroid (Levothyroxine Sodium) 25 Mcg Tablet 300 Mcg PO DAILY Flovent 110MCG Hfa (Fluticasone Propionate) 12 Gm Aer.w.adap 1 Puff IH DAILY Vitals/I & O Vital Sign - Last 24 Hours 10/28/18 10/28/18 10/28/18 10/28/18 14:54 15:00 18:09 18:46 Temp 97.9 97.9 Pulse 103 98 Resp 18 16 B/P (MAP) 97/40 107/54 (71) 123/49 96/37 (56) Pulse Ox 94 O2 Delivery Room Air 10/28/18 10/28/18 10/28/18 10/29/18 20:00 23:38 23:46 00:46 Pulse 98 Resp 16 B/P (MAP) 117/58 (77) Pulse Ox 99 99 O2 Delivery Room Air Room Air Room Air Room Air O2 Flow Rate 3.0 3.0 10/29/18 10/29/18 10/29/18 10/29/18 03:00 06:42 07:35 08:00 Temp 98.1 97.8 98.1 97.8 Pulse 94 92 Resp 18 18 B/P (MAP) 101/54 (70) 101/54 101/58 (72) Pulse Ox 95 96 O2 Delivery Room Air Room Air Room Air 10/29/18 10/29/18 10:59 12:59 Temp 98.0 98.0 Pulse 102 102 Resp 18 B/P (MAP) 106/53 (70) 106/53 Pulse Ox 96 O2 Delivery Room Air Intake and Output 10/28/18 10/28/18 10/29/18 14:59 22:59 06:59 Intake Total 200 ml 680 ml Output Total 950 ml Balance -950 ml 200 ml 680 ml CHUCK RIVERA MD Oct 29, 2018 14:03
--- NOTE | 2018-10-29 14:08 | PDOC3 ---
Discharge Summary Date of Admission: Oct 24, 2018 Date of Discharge: Oct 29, 2018 Follow-Up: 1-2 days Admitting Diagnosis comment: discharge dx Hypovolemic shock status post large volume paracentesis, status post large- volume thoracentesis-10 L total 10/24/2018 ESRD on dialysis Saturday Anemia of ESRD Generalized weakness/functional quadriplegia on hospice Full code Hypotension on midodrine with normal TSH and cortisol recently Diabetes type 2 on insulin with A1c 6.8 Leukocytosis, SIRS WBC 13 HOSPICE Interval placement of a left pigtail thoracostomy tube with a tunneled thoracostomy tube as described. 10/28 Chronic anemia - EGD 04/24/18: grade 1 varices, gastritis. History of Present Illness History of Present Illness Off levophed, t/o ICU saturday Was on home hospice BUT REVOKED TO BE ADMITTED Pleurx placed Plan PleurX catheter would be reasonable to do drainage by HOME HEALTH team post dc. IR consulted discussed with her, agreeable to Pleurx for symptom relief Dialysis per [facility] after Pleurx catheter on home health [place] Discussed with patient, RN She is full code despite being on hospice - wanted full code, SO REVOKED Interval placement of a left pigtail thoracostomy tube with a tunneled thoracostomy tube as described. 10/28 33 MIN PT EXAM, CHART REVIEW d/c planning , > 50% OF TIME SPENT WITH EXAM, CHART REVIEW, PT CARE COORDINATION Vitals Vitals Vital Signs Date Time Temp Pulse Resp B/P (MAP) Pulse Ox O2 Delivery O2 Flow Rate FiO2 10/29/18 12:59 102 106/53 10/29/18 10:59 98.0 18 96 Room Air 98.0 10/29/18 00:46 3.0 Physical Exam General: Alert, Cooperative, No acute distress, Other (REFUSING MEDS) Heart: Regular rate, Normal S1, Normal S2, No murmurs, Gallops Lungs: Other (decrease bases) Abdomen: Normal bowel sounds, Soft, No tenderness, No hepatosplenomegaly, No masses Extremities: No clubbing, No cyanosis, No edema, Normal pulses, No tendernes s/swelling Skin: No rashes, No breakdown Labs LABS Laboratory Tests Test 10/28/18 17:31 10/28/18 20:40 10/29/18 08:24 10/29/18 11:46 Glucose (Fingerstick) 282 mg/dL (70-99) 290 mg/dL (70-99) 319 mg/dL (70-99) 241 mg/dL (70-99) FINAL DIAGNOSIS Problems Medical Problems: (1) Acute and chronic respiratory failure Status: Acute (2) Hypotension Status: Acute (3) Pleural effusion Status: Acute Brief Hospital Course Ms. Nguyen is a 63 old [sex] who presented with [LARGE PLEURAL EFFUSION ] CONDITION AT DISCHARGE: Improved Discharge Medications Current Medications Sodium Chloride 1,000 ml @ 1,000 mls/hr 1X ONCE IV Last administered on 10/24/18at 10:00; Start 10/24/18 at 08:15; Stop 10/24/18 at 09:14; Status DC Lidocaine/Sodium Bicarbonate (Buffered Lidocaine 1%) 12 ml 1X ONCE IJ Last administered on 10/24/18at 09:30; Start 10/24/18 at 09:30; Stop 10/24/18 at 09:31; Status DC Albumin Human 100 ml @ 100 mls/hr 1X ONCE IV Last administered on 10/24/18at 09:30; Start 10/24/18 at 09:30; Stop 10/24/18 at 10:29; Status DC Albumin Human 100 ml @ 100 mls/hr 1X ONCE IV Last administered on 10/24/18at 11:38; Start 10/24/18 at 09:30; Stop 10/24/18 at 10:29; Status DC Albumin Human 100 ml @ 100 mls/hr 1X ONCE IV Last administered on 10/24/18at 09:20; Start 10/24/18 at 09:30; Stop 10/24/18 at 10:29; Status DC Fentanyl Citrate (Fentanyl 2ml Vial) 50 mcg 1X ONCE IV Last administered on 10/24/18at 11:42; Start 10/24/18 at 11:00; Stop 10/24/18 at 11:01; Status DC Piperacillin Sod/ Tazobactam Sod (Zosyn Per Pharmacy) 1 each PRN DAILY PRN MC SEE COMMENTS; Start 10/24/18 at 11:30 Piperacillin Sod/ Tazobactam Sod 2.25 gm/Sodium Chloride 50 ml @ 100 mls/hr Q8HRS IV Last administered on 10/29/18 05:20; Start 10/24/18 at 12:00 Ondansetron HCl (Zofran) 4 mg PRN Q8HRS PRN IV NAUSEA/VOMITING; Start 10/24/18 at 11:45; Stop 10/25/18 at 09:05; Status DC Albuterol/ Ipratropium (Duoneb) 3 ml RTQID NEB Last administered on 10/27/18 08:17; Start 10/24/18 at 12:00 Piperacillin Sod/ Tazobactam Sod (Zosyn Per Pharmacy) 1 each PRN DAILY PRN MC SEE COMMENTS; Start 10/24/18 at 12:00; Status UNV Sodium Chloride 500 ml @ 500 mls/hr 1X ONCE IV Last administered on 10/24/18 13:29; Start 10/24/18 at 13:30; Stop 10/24/18 at 14:29; Status DC Norepinephrine Bitartrate 250 ml @ 1.875 mls/ hr CONT PRN IV SEE I/O RECORD Last administered on 10/25/18 21:03; Start 10/24/18 at 13:30; Stop 10/26/18 at 07:40; Status DC Albumin Human 100 ml @ 100 mls/hr 1X ONCE IV Last administered on 10/24/18 15:30; Start 10/24/18 at 15:30; Stop 10/24/18 at 16:29; Status DC Albumin Human 100 ml @ As Directed STK-MED ONCE IV ; Start 10/24/18 at 15:23; Stop 10/24/18 at 15:24; Status DC Fentanyl Citrate (Fentanyl 2ml Vial) 50 mcg PRN Q2HR PRN IV PAIN Last administered on 10/24/18 17:05; Start 10/24/18 at 17:00 Insulin Glargine (Lantus) 40 units DAILY08 SQ Last administered on 10/29/18 08:58; Start 10/25/18 at 08:00 Lactulose (Lactulose) 20 gm TID PO Last administered on 10/28/18 20:33; Start 10/24/18 at 21:00 Budesonide (Pulmicort) 0.5 mg RTBID NEB Last administered on 7/8/19at 08:17; Start 10/24/18 at 20:00 Midodrine (Proamatine) 5 mg BID92 PO Last administered on 10/25/18at 08:40; Start 10/25/18 at 09:00; Stop 10/25/18 at 09:07; Status DC Non-Formulary Medication (Midodrine Hcl ) 10 mg [id number] PO ; Start 10/24/18 at 18:00; Status UNV Acetaminophen/ Hydrocodone Bitart (Lortab 5/325) 1 tab PRN Q6HRS PRN PO PAIN Last administered on 10/28/18at 23:46; Start 10/24/18 at 18:30 Lactobacillus Rhamnosus (Culturelle) 1 cap BID PO Last administered on 10/29/18at 08:47; Start 10/25/18 at 09:00 Albumin Human 200 ml @ 200 mls/hr 1X PRN PRN IV Hypotension; Start 10/25/18 at 08:45; Stop 10/25/18 at 14:44; Status DC Sodium Chloride (Normal Saline Flush) 10 ml 1X PRN PRN IV AP catheter pack; Start 10/25/18 at 08:45; Stop 10/26/18 at 08:44; Status DC Sodium Chloride (Normal Saline Flush) 10 ml 1X PRN PRN IV COMMUNITY SERVICE COORDINATOR catheter pack; Start 10/25/18 at 08:45; Stop 10/26/18 at 08:44; Status DC Sodium Chloride 1,000 ml @ 400 mls/hr Q2H30M PRN IV PATENCY; Start 10/25/18 at 08:42; Stop 10/25/18 at 20:41; Status DC Info (PHARMACY MONITORING -- do not chart) 1 each PRN DAILY PRN MC SEE BRIAN TS; Start 10/25/18 at 08:45; Status UNV Info (PHARMACY MONITORING -- do not chart) 1 each PRN DAILY PRN MC SEE COMMENTS; Start 10/25/18 at 08:45; Stop 10/28/18 at 12:54; Status DC Ondansetron HCl (Zofran) 4 mg PRN Q6HRS PRN IV NAUSEA/VOMITING; Start 10/25/18 at 09:15 Guaifenesin (Robitussin Dm) 10 ml PRN Q6HRS PRN PO COUGH, 1ST CHOICE; Start 10/25/18 at 09:15 Clotrimazole (Mycelex) 10 mg BID MM Last administered on 10/29/18 08:48; Start 10/25/18 at 09:15 Diphenhydramine HCl (Benadryl) 25 mg PRN Q6HRS PRN PO ITCHING; Start 10/25/18 at 09:15 Nystatin (Mycostatin) 1 efe BID TP Last administered on 10/27/18 21:28; Start 10/25/18 at 09:30 Pantoprazole Sodium (Protonix) 40 mg DAILYAC PO Last administered on 10/29/18 08:48; Start 10/25/18 at 11:30 Phenyleph/Shark Oil/Min Oil/Petrol (Preparation H) 1 efe PRN QID PRN RC RECTAL PAIN; Start 10/25/18 at 09:15 Rifaximin (Xifaxan) 550 mg BID PO Last administered on 10/29/18 08:48; Start 10/25/18 at 10:00 Non-Formulary Medication (Albuterol Sulfate (Albuterol Sulfate Conc Neb Soln)) 2.5 mg Q6HRS PRN NEB SHORTNESS OF BREATH; Start 10/25/18 at 09:15; Status UNV Benzonatate (Tessalon Perle) 100 mg PRN Q6HRS PRN PO COUGH, 2ND CHOICE; Start 10/25/18 at 14:00 Calcium Acetate (Phoslo) 667 mg TIDWMEALS PO Last administered on 10/29/18 12:59; Start 10/25/18 at 12:00 Calcium/Vitamin D (Oscal D 500mg/ 200uts) 1 tab DAILY08 PO Last administered on 10/29/18 08:47; Start 10/25/18 at 10:00 Vitamin B Complex/ Vitamin C (Tasia-Meliton) 1 tab DAILY PO Last administered on 10/29/18 08:47; Start 10/25/18 at 10:00 Vitamin B Complex (Shiva B) 1 tab DAILY PO Last administered on 10/29/18 08:47; Start 10/25/18 at 10:00 Levothyroxine Sodium (Synthroid) 300 mcg DAILY06 PO Last administered on 10/29/18 06:38; Start 10/25/18 at 10:30 Midodrine (Proamatine) 10 mg [id number] PO Last administered on 10/29/18at 12:59; Start 10/25/18 at 13:00 Albuterol Sulfate (Ventolin Neb Soln) 2.5 mg PRN Q6HRS PRN NEB SHORTNESS OF BREATH; Start 10/25/18 at 09:45 Sodium Chloride 500 ml @ 500 mls/hr 1X ONCE IV Last administered on 10/25/18at 14:06; Start 10/25/18 at 14:00; Stop 10/25/18 at 14:59; Status DC Insulin Human Lispro (HumaLOG) 0-7 UNITS TIDWMEALS SQ ; Start 10/26/18 at 08:00; Stop 10/26/18 at 08:00; Status DC Dextrose (Dextrose 50%-Water Syringe) 12.5 gm PRN Q15MIN PRN IV SEE COMMENTS; Start 10/26/18 at 03:30; Stop 10/26/18 at 07:45; Status DC Potassium Chloride (Klor-Con) 20 meq 1X ONCE PO ; Start 10/26/18 at 10:00; Stop 10/26/18 at 10:01; Status Cancel Potassium Chloride (Klor-Con) 40 meq 1X ONCE PO ; Start 10/26/18 at 08:00; Stop 10/26/18 at 08:01; Status Cancel Insulin Human Lispro (HumaLOG) 0-9 UNITS TIDWMEALS SQ Last administered on 10/29/18at 13:03; Start 10/26/18 at 08:00 Dextrose (Dextrose 50%-Water Syringe) 12.5 gm PRN Q15MIN PRN IV SEE COMMENTS; Start 10/26/18 at 07:45 Potassium Bicarbonate (Potassium Effervescent Tablet) 40 meq 1X ONCE PO Last administered on 10/26/18at 10:56; Start 10/26/18 at 11:00; Stop 10/26/18 at 11:01; Status DC Potassium Bicarbonate (Potassium Effervescent Tablet) 20 meq 1X ONCE PO Last administered on 10/26/18at 13:28; Start 10/26/18 at 13:00; Stop 10/26/18 at 13:01; Status DC Multi-Ingredient Mouthwash/Gargle (Gi Cocktail) 20 ml 1X ONCE SWSW Last administered on 10/26/18at 18:17; Start 10/26/18 at 19:00; Stop 10/26/18 at 19:01; Status DC Sodium Chloride 1,000 ml @ 1,000 mls/hr Q1H PRN IV hypotension; Start 10/27/18 at 14:38; Stop 10/27/18 at 20:37; Status DC Diphenhydramine HCl (Benadryl) 25 mg 1X PRN PRN IV ITCHING; Start 10/27/18 at 14:45; Stop 10/28/18 at 14:44; Status DC Diphenhydramine HCl (Benadryl) 25 mg 1X PRN PRN IV ITCHING; Start 10/27/18 at 14:45; Stop 10/28/18 at 14:44; Status DC Sodium Chloride 1,000 ml @ 400 mls/hr Q2H30M PRN IV PATENCY; Start 10/27/18 at 14:38; Stop 10/28/18 at 02:37; Status DC Info (PHARMACY MONITORING -- do not chart) 1 each PRN DAILY PRN MC SEE COMMENTS; Start 10/27/18 at 14:45; Status UNV Info (PHARMACY MONITORING -- do not chart) 1 each PRN DAILY PRN MC SEE COMMENTS; Start 10/27/18 at 14:45 Lidocaine/ Epinephrine (LIDOCAINE 1%-EPI 1:100,000 Multi-Dose) 20 ml STK-MED ONCE .ROUTE ; Start 10/28/18 at 11:04; Stop 10/28/18 at 11:05; Status DC Midazolam HCl (Versed) 2 mg STK-MED ONCE .ROUTE ; Start 10/28/18 at 12:51; Stop 10/28/18 at 12:52; Status DC Fentanyl Citrate (Fentanyl 2ml Vial) 100 mcg STK-MED ONCE .ROUTE ; Start 10/28/18 at 12:51; Stop 10/28/18 at 12:52; Status DC Midazolam HCl (Versed) 2 mg 1X ONCE IV Last administered on 10/28/18at 13:30; Start 10/28/18 at 13:30; Stop 10/28/18 at 13:31; Status DC Fentanyl Citrate (Fentanyl 2ml Vial) 100 mcg 1X ONCE IV Last administered on 10/28/18at 13:30; Start 10/28/18 at 13:30; Stop 10/28/18 at 13:31; Status DC Lidocaine/ Epinephrine (LIDOCAINE 1%-EPI 1:100,000 Multi-Dose) 20 ml 1X ONCE IJ Last administered on 10/28/18at 13:30; Start 10/28/18 at 13:30; Stop 10/28/18 at 13:31; Status DC Active Scripts Active Major-Prep Hemorrhoidal Oint (Phenyleph/Mineral Oil/Petrolat) 57 Gm Oint.appl 1 Efe RC PRN QID PRN 14 Days Nystatin 15 Gm Oint...g. 1 Efe TP BID 30 Days Clotrimazole 10 Mg Vielka 10 Mg MM BID 10 Days Pantoprazole Sodium (Pantoprazole Sodium) 40 Mg Tablet.dr 40 Mg PO DAILYAC 30 Days Benzonatate 100 Mg Capsule 100 Mg PO PRN Q6HRS PRN 10 Days Hydrocodone-Apap 5-325 (Hydrocodone Bit/Acetaminophen) 1 Tab Tablet 1 Tab PO PRN Q6HRS PRN 30 Days Proair Hfa (Albuterol Sulfate) 8.5 Gm Hfa.aer.ad 2.5 Mg NEB PRN Q6HRS PRN 30 Days Levaquin (Levofloxacin) 500 Mg Tablet 0.5 Tab PO DAILY Midodrine Hcl 5 Mg Tablet 10 Mg PO [id number] 14 Days Reported Midodrine Hcl 5 Mg Tablet 5 Mg PO BID92 Benadryl (Diphenhydramine Hcl) 25 Mg Capsule 25 Mg PO PRN Q6HRS PRN Calcium Acetate 667 Mg Tablet 667 Mg PO TIDWMEALS Dialyvite Tablet (Folic Acid/Vitamin B Comp W-C) 1 Each Tablet 1 Each PO QMWF Omeprazole 40 Mg Capsule. 1 Cap PO DAILY Xifaxan (Rifaximin) 550 Mg Tablet 1 Tab PO BID Fusion Plus Capsule (Iron,Fum&Ps/Fa/Vit B&C#18/L.ca) 1 Each Capsule 1 Each PO DAILY Albuterol Sulfate Conc Neb Soln (Albuterol Sulfate) 2.5 Mg/0.5 Ml Vial.neb 2.5 Mg NEB Q6HRS PRN Lactulose 20 Gm/30 Ml Solution 20 Gm PO TID Lantus Solostar (Insulin Glargine,Hum.rec.anlog) 100 Unit/1 Ml Insuln.pen 40 Units SQ DAILY08 SSI Calcium + Vitamin D Tablet (Calcium Carbonate/Vitamin D3) 1 Each Tablet 1 Each PO DAILY Albuterol Sulfate Hfa Inhaler (Albuterol Sulfate) 8.5 Gm Hfa.aer.ad 8.5 Gm IH PRN Q6HRS PRN Novolog Flexpen (Insulin Aspart) 100 Unit/1 Ml Insuln.pen 0 SQ TIDAC 0-149: 0 units 150-199: 2 units 200-249: 4 units 250-299: 6 units 300-349: 8 units 350-399: 10 units >400: Call Synthroid (Levothyroxine Sodium) 25 Mcg Tablet 300 Mcg PO DAILY Flovent 110MCG Hfa (Fluticasone Propionate) 12 Gm Aer.w.adap 1 Puff IH DAILY Vital Signs Vital Signs Date Time Temp Pulse Resp B/P (MAP) Pulse Ox O2 Delivery O2 Flow Rate FiO2 10/29/18 12:59 102 106/53 10/29/18 10:59 98.0 18 96 Room Air 98.0 10/29/18 00:46 3.0 Labs Laboratory Tests Test 10/27/18 16:00 10/27/18 21:02 10/28/18 06:44 10/28/18 07:48 Sodium Level 141 mmol/L (136-145) Potassium Level 3.3 mmol/L (3.5-5.1) Chloride Level 105 mmol/L (98-107) Carbon Dioxide Level 26 mmol/L (21-32) Anion Gap 10 (6-14) Blood Urea Nitrogen 30 mg/dL (7-20) Creatinine 3.6 mg/dL (0.6-1.0) Estimated GFR (Cockcroft-Gault) 12.8 Glucose Level 154 mg/dL (70-99) Calcium Level 7.5 mg/dL (8.5-10.1) Glucose (Fingerstick) 121 mg/dL (70-99) 222 mg/dL (70-99) 231 mg/dL (70-99) Test 10/28/18 11:50 10/28/18 17:31 10/28/18 20:40 10/29/18 08:24 Glucose (Fingerstick) 182 mg/dL (70-99) 282 mg/dL (70-99) 290 mg/dL (70-99) 319 mg/dL (70-99) Test 10/29/18 11:46 Glucose (Fingerstick) 241 mg/dL (70-99) Laboratory Tests Test 10/28/18 17:31 10/28/18 20:40 10/29/18 08:24 10/29/18 11:46 Glucose (Fingerstick) 282 mg/dL (70-99) 290 mg/dL (70-99) 319 mg/dL (70-99) 241 mg/dL (70-99) Allergies Allergies Coded Allergies Type Severity Reaction Last Updated Verified Sulfa (Sulfonamide Antibiotics) Allergy Severe Swelling 04/24/18 Yes cephalexin Allergy Severe Anaphylaxis 05/22/18 Yes doxycycline Allergy Intermediate 04/24/18 Yes gabapentin Allergy Intermediate Anxiety 06/04/18 Yes insulin detemir Allergy Intermediate Rash 04/24/18 Yes morphine Allergy Intermediate rash 04/24/18 Yes niacin Allergy Intermediate Rash 04/24/18 Yes oxycodone Allergy Intermediate rash 04/24/18 Yes povidone-iodine Allergy Intermediate It 04/24/18 Yes tramadol Allergy Intermediate Rash 04/24/18 Yes I S O L A T I O N *CONTACT* Allergy Unknown 04/24/18 Yes codeine Adverse Reaction Intermediate Nausea and Vomiting 04/24/18 Yes erythromycin base Adverse Reaction Intermediate Diarrhea 04/24/18 Yes Disposition/Orders: D/C to Home w/ [facility] Patient Instructions D/C PLANNING 33 MIN CHUCK RIVERA MD Oct 29, 2018 14:08
[2018-10-29] MEDS ORDERED: LACT1CAP19 PO (14:10)
--- NOTE | 2018-10-29 14:12 | SNU/HH DC ---
DISCHARGE WITH HOME HEALTH DISCHARGE INFORMATION: Final Diagnosis: Problems Medical Problems: (1) Acute and chronic respiratory failure Status: Acute (2) Hypotension Status: Acute (3) Pleural effusion Status: Acute Condition on Discharge: Guarded CODE STATUS: Code Status: Full HOME HEALTH: Face to Face: I certify this patient is under my care and that I, or a nurse practitioner or physician's personal care assistant working with me, had a face to face encounter that meets the physician face to face encounter requirements with this patient on []. Medical Complications: COPD RN For Eval/Treatment: Yes Physical Therapy For: Evalulation/Treatment Occupational Therapy For: Evaluation/Treatment Speech Language Pathology For: Evaluation/Treatment Home Health Aide For: Self-care SOFTWARE SYSTEMS ENGINEER For: Community Resources Pt Meets Homebound Status: Unsteady balance w/ amb, POST DISCHARGE ORDERS: Activity Instructions for Disc: Activity as tolerated Weight Bearing Status after Di: As tolerated Bathing Instructions: Shower-keep dressing dry, No Tub Bath until see DIET AFTER DISCHARGE: Renal Wound/Incision Care: Change dressing CHECKS AFTER DISCHARGE: Checks after discharge: Check blood press - daily, Check blood sugar, ac/hs, Weigh Yourself Daily Comment: back TREATMENT/EQUIPMENT ORDERS: Adaptive Equipment Issued: None, Bath Bench, Commode, Raised toilet seat Discharge Respiratory Equipmen: Oxygen CERTIFICATION STATEMENT: Certification Statement: Certification Statement: Based on the above finding, I certify that this patient is confined to the home and needs intermittent detention care, physical therapy and/or speech therapy, or continues to need occupational therapy.~ This patient is under my care, and I have initiated the establishment of the plan of care.~ This patient will be followed by myself or a community physician who will periodically review the plan of care. Home Meds Active Scripts Lactobacillus Rhamnosus Gg (CULTURELLE) 1 Each Cap.sprink, 1 CAP PO BID for SUPPLEMENT for 14 Days, #28 CAP Prov:CHUCK RIVERA MD 10/29/18 Phenyleph/Mineral Oil/Petrolat (Major-Prep Hemorrhoidal Oint) 57 Gm Oint.appl, 1 RENATA RC PRN QID PRN for RECTAL PAIN for 14 Days, #60 MISC Prov:CHUCK RIVERA MD 10/21/18 Nystatin (NYSTATIN) 15 Gm Oint...g., 1 RENATA TP BID for RASH for 30 Days, #60 MISC Prov:CHUCK RIVERA MD 10/21/18 Clotrimazole (CLOTRIMAZOLE) 10 Mg Vielka, 10 MG MM BID for THRUSH for 10 Days, #20 LOZENGE Prov:CHUCK RIVERA MD 10/21/18 Pantoprazole Sodium (PANTOPRAZOLE SODIUM ) 40 Mg Tablet.dr, 40 MG PO DAILYAC for GUT HEALTH for 30 Days, #30 TAB.SR Prov:CHUCK RIVERA MD 10/21/18 Benzonatate (BENZONATATE) 100 Mg Capsule, 100 MG PO PRN Q6HRS PRN for cough for 10 Days, #60 CAP Prov:CHUCK RIVERA MD 10/21/18 Hydrocodone Bit/Acetaminophen (HYDROCODONE-APAP 5-325 ) 1 Tab Tablet, 1 TAB PO PRN Q6HRS PRN for PAIN for 30 Days, #60 TAB Prov:CHUCK RIVERA MD 10/21/18 Albuterol Sulfate (Proair Hfa) 8.5 Gm Hfa.aer.ad, 2.5 MG NEB PRN Q6HRS PRN for SHORTNESS OF BREATH for 30 Days, #1 INHALER Prov:CHUCK RIVERA MD 10/21/18 Midodrine Hcl (MIDODRINE HCL) 5 Mg Tablet, 10 MG PO [id number] for hypotension for 14 Days, #84 TAB Prov:TEDDY PERALES MD 09/10/18 Reported Medications Diphenhydramine Hcl (BENADRYL) 25 Mg Capsule, 25 MG PO PRN Q6HRS PRN for ITCHING, CAP 08/12/18 Calcium Acetate (CALCIUM ACETATE) 667 Mg Tablet, 667 MG PO TIDWMEALS for DIALYSIS PATIENTS, CAP 07/03/18 Folic Acid/Vitamin B Comp W-C (DIALYVITE TABLET) 1 Each Tablet, 1 EACH PO QMWF for after dialysis on dialysis day, TAB 07/03/18 Omeprazole (OMEPRAZOLE) 40 Mg Capsule.dr, 1 CAP PO DAILY for gerd, #30 CAP 3 Refills 05/01/18 Rifaximin (XIFAXAN) 550 Mg Tablet, 1 TAB PO BID, #28 TAB 02/07/18 Iron,Fum&Ps/Fa/Vit B&C#18/L.ca (FUSION PLUS CAPSULE) 1 Each Capsule, 1 EACH PO DAILY for esrd, CAP 05/09/17 Albuterol Sulfate (ALBUTEROL SULFATE CONC NEB SOLN) 2.5 Mg/0.5 Ml Vial.neb, 2.5 MG NEB Q6HRS PRN for SHORTNESS OF BREATH, EACH 0 Refills 08/03/15 Lactulose (LACTULOSE) 20 Gm/30 Ml Solution, 20 GM PO TID 08/03/15 Insulin Glargine,Hum.rec.anlog (LANTUS SOLOSTAR) 100 Unit/1 Ml Insuln.pen, 40 U NITS SQ DAILY08 for DM SSI 06/10/13 Calcium Carbonate/Vitamin D3 (CALCIUM + VITAMIN D TABLET) 1 Each Tablet, 1 EACH PO DAILY for supplement 06/02/13 Albuterol Sulfate (ALBUTEROL SULFATE HFA INHALER) 8.5 Gm Hfa.aer.ad, 8.5 GM IH PRN Q6HRS PRN for SHORTNESS OF BREATH 06/02/13 Insulin Aspart (NOVOLOG FLEXPEN) 100 Unit/1 Ml Insuln.pen, 0 SQ TIDAC for DM 0-149: 0 units 150-199: 2 units 200-249: 4 units 250-299: 6 units 300-349: 8 units 350-399: 10 units >400: Call 06/02/13 Levothyroxine Sodium (SYNTHROID) 25 Mcg Tablet, 300 MCG PO DAILY 06/02/13 Fluticasone Propionate (FLOVENT 110MCG HFA) 12 Gm Aer.w.adap, 1 PUFF IH DAILY for copd 06/02/13 Discontinued Reported Medications Midodrine Hcl (MIDODRINE HCL) 5 Mg Tablet, 5 MG PO BID92 for other, TAB 10/14/18 Discontinued Scripts Levofloxacin (LEVAQUIN) 500 Mg Tablet, 0.5 TAB PO DAILY for pneumonia, #7 TAB Prov:ABE RIVER MD 10/01/18 CHUCK RIVERA MD Oct 29, 2018 14:12
[2018-10-29 14:28] VITALS: BP 107/52
[2018-10-29] MEDS ORDERED: IV NORMAL SALINE 1000ML BAG 1,000 ML IV PRN ×2 (15:26)
[2018-10-29] MEDS ORDERED: ALBUMIN HUMAN 25% 200 ML IV PRN (15:30)
[2018-10-29] MEDS ORDERED: DIALYSIS PATIENT. MC PRN ×2 (15:30)
--- NOTE | 2018-10-29 15:49 | NUR ---
SS following up with discharge planning. SS received orders for home healthcare. SS phoned and faxed home healthcare orders to [facility], ; fax [phone]. [facility] accepted pt for services. Pt's RN reported that pt will need dialysis tonight. SS contacted pt son and notified that pt will discharge in the morning with [facility]. Pt's son agreeable and requested [facility] transport. Pt will discharge and return to home tomorrow via [facility] ambulance at 1100. Pt's RN notified.
--- NOTE | 2018-10-29 16:23 | RAD ---
Chest radiograph 10/29/2018 10:10 AM INDICATION: Pneumothorax post drain COMPARISON: October 29, 2018 at 0755 hours TECHNIQUE: Frontal view of the chest is provided. FINDINGS: The cardiomediastinal silhouette is similar in appearance. Left chest wall double-lumen catheter, left-sided thoracostomy tube and right chest wall infusion port catheter in similar position. There is improved aeration of the lungs with decrease in moderate left and small right pleural effusions. Small bilateral pleural effusions persist. There is improved aeration of left lung with near complete resolution of left apical pneumothorax. There may be tiny residual pneumothorax. Mild pulmonary vascular congestion persists. IMPRESSION: Decrease in size of left apical pneumothorax with tiny residual. Improved aeration of the lungs compared to prior examination. Electronically signed by: Corina Abbott MD (10/29/2018 4:20 PM) [id number]
[2018-10-29 19:14] VITALS: BP 94/45
--- NOTE | 2018-10-29 19:30 | NUR ---
Pt returned to unit post dialysis assessment completed vss poc explained pt call light in reach will resume care and continue to monitor pt.
[2018-10-29 22:00] VITALS: BP 93/44
[2018-10-30 02:00] VITALS: BP 90/43
[2018-10-30] MEDS: LEVOTHYROXINE 150 MCG TABLET PO SCH (06:16)
[2018-10-30] MEDS: PIPERACILLIN/TAZOBACTAM 2.25 GM in IV NORMAL SALINE 50ML 50 ML IV SCH (06:16)
[2018-10-30] MEDS: PANTOPRAZOLE 40 MG TABLET.DR. PO SCH (06:16)
[2018-10-30] MEDS: MIDODRINE 5 MG TABLET PO SCH (06:18)
[2018-10-30 07:00] VITALS: BP 98/48
[2018-10-30] MEDS: IPRATRPIUM/ALBUTEROL 0.5/2.5MG 3 ML NEBU. NEB SCH (08:00)
[2018-10-30] MEDS: BUDESONIDE 0.5 MG/2 ML NEBU. NEB SCH (08:00)
--- NOTE | 2018-10-30 08:55 | RAD ---
PORTABLE CHEST 1V History: Effusions Comparison: October 29, 2018 Findings: Single view of the chest is submitted. There is again left pleural catheter. There is again right internal jugular port catheter and dual-lumen left internal jugular catheter similar in position. Cardiac silhouette is similar. There is residual small left apical pneumothorax, slightly increased. There is increased opacity of the left lateral base, component of apparent pleural-based fluid in combination with airspace opacity. There is somewhat diffuse opacity of the mid to inferior right hemithorax and suspected small right pleural effusion greater on this exam. Impression: 1. There is small left apical pneumothorax, somewhat larger. There is again left pleural catheter present. There is increased opacity of the mid to inferior left hemithorax likely component of pleural fluid in combination with atelectasis/infiltrate/edema. There is also increased airspace opacity of the mid to inferior right hemithorax which may be due to edema and atelectasis, infiltrate not excluded. Small right pleural effusion is also larger. Electronically signed by: Walker Ramachandran MD (10/30/2018 8:52 AM) [id number]
[2018-10-30] MEDS: LACTULOSE 20 GM/30 ML SOLUTION. PO SCH (09:00)
[2018-10-30] MEDS: NYSTATIN 100,000 UNIT/GM TOPICAL OINTMENT 15GM TUBE. TP SCH (09:00)
[2018-10-30] MEDS: rifAXIMin 550 MG TABLET PO SCH (09:00)
[2018-10-30] MEDS: CALCIUM CARB/VIT D3 500/200 TABLET. PO SCH (09:52)
[2018-10-30] MEDS: FOLIC/VIT B COMP W-C (RENAL) TABLET. PO SCH (09:52)
[2018-10-30] MEDS: CALCIUM ACETATE 667 MG CAPSULE PO SCH (09:53)
[2018-10-30] MEDS: LACTOBACILLUS RHAMNOSUS GG 1 CAPSULE. PO SCH (09:53)
[2018-10-30] MEDS: CLOTRIMAZOLE 10 MG TROCHE. MM SCH (09:54)
[2018-10-30] MEDS: VITAMIN B COMPLEX TABLET. PO SCH (09:54)
[2018-10-30] MEDS: INSULIN LISPRO 300 UNITS/3 ML INSULN.PEN. SQ SCH (10:09)
[2018-10-30] MEDS: INSULIN GLARGINE 300 UNITS/3 ML INSULN.PEN. SQ SCH (10:09)
[2018-10-30] MEDS ORDERED: HEPARIN PF 500 UNIT/5 ML DISP.SYRIN. IV ONE (10:15)
--- NOTE | 2018-10-30 12:29 | PDOC ---
PROGRESS NOTES Chief Complaint Chief Complaint discharge dx Hypovolemic shock status post large volume paracentesis, status post large- volume thoracentesis-10 L total 10/24/2018 ESRD on dialysis Saturday Anemia of ESRD Generalized weakness/functional quadriplegia on hospice Full code Hypotension on midodrine with normal TSH and cortisol recently Diabetes type 2 on insulin with A1c 6.8 Leukocytosis, SIRS WBC 13 HOSPICE Interval placement of a left pigtail thoracostomy tube with a tunneled thoracostomy tube as described. 10/28 Chronic anemia - EGD 04/24/18: grade 1 varices, gastritis. D/C 10/30 DELAYED DUE TO TRANSPORTATION History of Present Illness History of Present Illness Off levophed, t/o ICU saturday Was on home hospice BUT REVOKED TO BE ADMITTED Pleurx placed Plan PleurX catheter would be reasonable to do drainage by hospice team post dc. IR consulted discussed with her, agreeable to Pleurx for symptom relief Dialysis per renal [facility] after Pleurx catheter on home health [place] Discussed with patient, RN She is full code despite being on hospice - wanted full code Interval placement of a left pigtail thoracostomy tube with a tunneled thoracostomy tube as described. 10/28 33 MIN PT EXAM, CHART REVIEW d/c planning , > 50% OF TIME SPENT WITH EXAM, CHART REVIEW, PT CARE COORDINATION Vitals Vitals Vital Signs Date Time Temp Pulse Resp B/P (MAP) Pulse Ox O2 Delivery O2 Flow Rate FiO2 10/30/18 08:00 Room Air 10/30/18 07:00 98.2 97 16 98/48 (65) 96 98.2 Physical Exam General: Alert, Cooperative, No acute distress, Other (REFUFING MEDS) Heart: Regular rate, Normal S1, Normal S2, No murmurs, Gallops Lungs: Other (decrease bases) Abdomen: Normal bowel sounds, Soft, No tenderness, No hepatosplenomegaly, No masses Extremities: No clubbing, No cyanosis, No edema, Normal pulses, No tenderness/swelling Skin: No rashes, No breakdown Labs LABS Laboratory Tests Test 10/29/18 16:40 10/29/18 20:59 10/30/18 07:36 Hepatitis B Surface Antigen Nonreactive (Nonreactive) Glucose (Fingerstick) 152 mg/dL (70-99) 214 mg/dL (70-99) Assessment and Plan Assessmemt and Plan Problems Medical Problems: (1) Acute and chronic respiratory failure Status: Acute (2) Hypotension Status: Acute (3) Pleural effusion Status: Acute Comment Review of Relevant I have reviewed the following items chante (where applicable) has been applied. Labs Laboratory Tests Test 10/28/18 17:31 10/28/18 20:40 10/29/18 08:24 10/29/18 11:46 Glucose (Fingerstick) 282 mg/dL (70-99) 290 mg/dL (70-99) 319 mg/dL (70-99) 241 mg/dL (70-99) Test 10/29/18 16:40 10/29/18 20:59 10/30/18 07:36 Hepatitis B Surface Antigen Nonreactive (Nonreactive) Glucose (Fingerstick) 152 mg/dL (70-99) 214 mg/dL (70-99) Laboratory Tests Test 10/29/18 16:40 10/29/18 20:59 10/30/18 07:36 Hepatitis B Surface Antigen Nonreactive (Nonreactive) Glucose (Fingerstick) 152 mg/dL (70-99) 214 mg/dL (70-99) Microbiology 10/24/18 Blood Culture - Final, Complete NO GROWTH AFTER 5 DAYS 10/24/18 Anaerobic/Aerobic Culture - Final, Complete 10/24/18 Anaerobic Culture Result 1 (JOSE) - Final, Complete 10/24/18 Aerobic Culture - Final, Complete 10/24/18 Aerobic Culture Result 1 (JOSE) - Final, Complete 10/24/18 Gram Stain - Final, Complete 10/24/18 Gram Stain Result 1 (JOSE) - Final, Complete 10/24/18 Gram Stain Result 2 (JOSE) - Final, Complete Medications Current Medications Sodium Chloride 1,000 ml @ 1,000 mls/hr 1X ONCE IV Last administered on 10/24/18at 10:00; Start 10/24/18 at 08:15; Stop 10/24/18 at 09:14; Status DC Lidocaine/Sodium Bicarbonate (Buffered Lidocaine 1%) 12 ml 1X ONCE IJ Last a dministered on 10/24/18at 09:30; Start 10/24/18 at 09:30; Stop 10/24/18 at 09:31; Status DC Albumin Human 100 ml @ 100 mls/hr 1X ONCE IV Last administered on 10/24/18at 09:30; Start 10/24/18 at 09:30; Stop 10/24/18 at 10:29; Status DC Albumin Human 100 ml @ 100 mls/hr 1X ONCE IV Last administered on 10/24/18at 11:38; Start 10/24/18 at 09:30; Stop 10/24/18 at 10:29; Status DC Albumin Human 100 ml @ 100 mls/hr 1X ONCE IV Last administered on 10/24/18at 09:20; Start 10/24/18 at 09:30; Stop 10/24/18 at 10:29; Status DC Fentanyl Citrate (Fentanyl 2ml Vial) 50 mcg 1X ONCE IV Last administered on 10/24/18at 11:42; Start 10/24/18 at 11:00; Stop 10/24/18 at 11:01; Status DC Piperacillin Sod/ Tazobactam Sod (Zosyn Per Pharmacy) 1 each PRN DAILY PRN MC SEE COMMENTS; Start 10/24/18 at 11:30 Piperacillin Sod/ Tazobactam Sod 2.25 gm/Sodium Chloride 50 ml @ 100 mls/hr Q8HRS IV Last administered on 10/30/18at 06:16; Start 10/24/18 at 12:00 Ondansetron HCl (Zofran) 4 mg PRN Q8HRS PRN IV NAUSEA/VOMITING; Start 10/24/18 at 11:45; Stop 10/25/18 at 09:05; Status DC Albuterol/ Ipratropium (Duoneb) 3 ml RTQID NEB Last administered on 10/27/18at 08:17; Start 10/24/18 at 12:00 Piperacillin Sod/ Tazobactam Sod (Zosyn Per Pharmacy) 1 each PRN DAILY PRN MC SEE COMMENTS; Start 10/24/18 at 12:00; Status UNV Sodium Chloride 500 ml @ 500 mls/hr 1X ONCE IV Last administered on 10/24/18at 13:29; Start 10/24/18 at 13:30; Stop 10/24/18 at 14:29; Status DC Norepinephrine Bitartrate 250 ml @ 1.875 mls/ hr CONT PRN IV SEE I/O RECORD Last administered on 10/25/18 21:03; Start 10/24/18 at 13:30; Stop 10/26/18 at 07:40; Status DC Albumin Human 100 ml @ 100 mls/hr 1X ONCE IV Last administered on 10/24/18at 15:30; Start 10/24/18 at 15:30; Stop 10/24/18 at 16:29; Status DC Albumin Human 100 ml @ As Directed STK-MED ONCE IV ; Start 10/24/18 at 15:23; Stop 10/24/18 at 15:24; Status DC Fentanyl Citrate (Fentanyl 2ml Vial) 50 mcg PRN Q2HR PRN IV PAIN Last administered on 10/24/18 17:05; Start 10/24/18 at 17:00 Insulin Glargine (Lantus) 40 units DAILY08 SQ Last administered on 10/30/18 10:09; Start 10/25/18 at 08:00 Lactulose (Lactulose) 20 gm TID PO Last administered on 10/28/18 20:33; Start 10/24/18 at 21:00 Budesonide (Pulmicort) 0.5 mg RTBID NEB Last administered on 10/27/18 08:17; Start 10/24/18 at 20:00 Midodrine (Proamatine) 5 mg [id number] PO Last administered on 10/25/18 08:40; Start 10/25/18 at 09:00; Stop 10/25/18 at 09:07; Status DC Non-Formulary Medication (Midodrine Hcl ) 10 mg [id number] PO ; Start 10/24/18 at 18:00; Status UNV Acetaminophen/ Hydrocodone Bitart (Lortab 5/325) 1 tab PRN Q6HRS PRN PO PAIN Last administered on 10/28/18 23:46; Start 10/24/18 at 18:30 Lactobacillus Rhamnosus (Culturelle) 1 cap BID PO Last administered on 10/30/18 09:53; Start 10/25/18 at 09:00 Albumin Human 200 ml @ 200 mls/hr 1X PRN PRN IV Hypotension; Start 10/25/18 at 08:45; Stop 10/25/18 at 14:44; Status DC Sodium Chloride (Normal Saline Flush) 10 ml 1X PRN PRN IV AP catheter pack; Start 10/25/18 at 08:45; Stop 10/26/18 at 08:44; Status DC Sodium Chloride (Normal Saline Flush) 10 ml 1X PRN PRN IV RESEARCH SPEC catheter pack; Start 10/25/18 at 08:45; Stop 10/26/18 at 08:44; Status DC Sodium Chloride 1,000 ml @ 400 mls/hr Q2H30M PRN IV PATENCY; Start 10/25/18 at 08:42; Stop 10/25/18 at 20:41; Status DC Info (PHARMACY MONITORING -- do not chart) 1 each PRN DAILY PRN MC SEE COMMENTS; Start 10/25/18 at 08:45; Status UNV Info (PHARMACY MONITORING -- do not chart) 1 each PRN DAILY PRN MC SEE COMMENTS; Start 10/25/18 at 08:45; Stop 10/28/18 at 12:54; Status DC Ondansetron HCl (Zofran) 4 mg PRN Q6HRS PRN IV NAUSEA/VOMITING; Start 10/25/18 at 09:15 Guaifenesin (Robitussin Dm) 10 ml PRN Q6HRS PRN PO COUGH, 1ST CHOICE; Start 10/25/18 at 09:15 Clotrimazole (Mycelex) 10 mg BID MM Last administered on 10/30/18at 09:54; Start 10/25/18 at 09:15 Diphenhydramine HCl (Benadryl) 25 mg PRN Q6HRS PRN PO ITCHING; Start 10/25/18 at 09:15 Nystatin (Mycostatin) 1 efe BID TP Last administered on 10/29/18at 21:00; Start 10/25/18 at 09:30 Pantoprazole Sodium (Protonix) 40 mg DAILYAC PO Last administered on 10/30/18at 06:16; Start 10/25/18 at 11:30 Phenyleph/Shark Oil/Min Oil/Petrol (Preparation H) 1 efe PRN QID PRN RC RECTAL PAIN; Start 10/25/18 at 09:15 Rifaximin (Xifaxan) 550 mg BID PO Last administered on 10/29/18at 21:00; Start 10/25/18 at 10:00 Non-Formulary Medication (Albuterol Sulfate (Albuterol Sulfate Conc Neb Soln)) 2.5 mg Q6HRS PRN NEB SHORTNESS OF BREATH; Start 10/25/18 at 09:15; Status UNV Benzonatate (Tessalon Perle) 100 mg PRN Q6HRS PRN PO COUGH, 2ND CHOICE; Start 10/25/18 at 14:00 Calcium Acetate (Phoslo) 667 mg TIDWMEALS PO Last administered on 10/30/18at 09:53; Start 10/25/18 at 12:00 Calcium/Vitamin D (Oscal D 500mg/ 200uts) 1 tab DAILY08 PO Last administered on 10/30/18 09:52; Start 10/25/18 at 10:00 Vitamin B Complex/ Vitamin C (Tasia-Meliton) 1 tab DAILY PO Last administered on 10/30/18at 09:52; Start 10/25/18 at 10:00 Vitamin B Complex (Shiva B) 1 tab DAILY PO Last administered on 10/30/18at 09:54; Start 10/25/18 at 10:00 Levothyroxine Sodium (Synthroid) 300 mcg DAILY06 PO Last administered on 10/30/18at 06:16; Start 10/25/18 at 10:30 Midodrine (Proamatine) 10 mg [id number] PO Last administered on 10/30/18at 06:18; Start 10/25/18 at 13:00 Albuterol Sulfate (Ventolin Neb Soln) 2.5 mg PRN Q6HRS PRN NEB SHORTNESS OF BREATH; Start 10/25/18 at 09:45 Sodium Chloride 500 ml @ 500 mls/hr 1X ONCE IV Last administered on 10/25/18at 14:06; Start 10/25/18 at 14:00; Stop 10/25/18 at 14:59; Status DC Insulin Human Lispro (HumaLOG) 0-7 UNITS TIDWMEALS SQ ; Start 10/26/18 at 08:00; Stop 10/26/18 at 08:00; Status DC Dextrose (Dextrose 50%-Water Syringe) 12.5 gm PRN Q15MIN PRN IV SEE COMMENTS; Start 10/26/18 at 03:30; Stop 10/26/18 at 07:45; Status DC Potassium Chloride (Klor-Con) 20 meq 1X ONCE PO ; Start 10/26/18 at 10:00; Stop 10/26/18 at 10:01; Status Cancel Potassium Chloride (Klor-Con) 40 meq 1X ONCE PO ; Start 10/26/18 at 08:00; Stop 10/26/18 at 08:01; Status Cancel Insulin Human Lispro (HumaLOG) 0-9 UNITS TIDWMEALS SQ Last administered on 10/30/18at 10:09; Start 10/26/18 at 08:00 Dextrose (Dextrose 50%-Water Syringe) 12.5 gm PRN Q15MIN PRN IV SEE COMMENTS; Start 10/26/18 at 07:45 Potassium Bicarbonate (Potassium Effervescent Tablet) 40 meq 1X ONCE PO Last a dministered on 10/26/18at 10:56; Start 10/26/18 at 11:00; Stop 10/26/18 at 11:01; Status DC Potassium Bicarbonate (Potassium Effervescent Tablet) 20 meq 1X ONCE PO Last administered on 10/26/18at 13:28; Start 10/26/18 at 13:00; Stop 10/26/18 at 13:01; Status DC Multi-Ingredient Mouthwash/Gargle (Gi Cocktail) 20 ml 1X ONCE SWSW Last administered on 10/26/18at 18:17; Start 10/26/18 at 19:00; Stop 10/26/18 at 19:01; Status DC Sodium Chloride 1,000 ml @ 1,000 mls/hr Q1H PRN IV hypotension; Start 10/27/18 at 14:38; Stop 10/27/18 at 20:37; Status DC Diphenhydramine HCl (Benadryl) 25 mg 1X PRN PRN IV ITCHING; Start 10/27/18 at 14:45; Stop 10/28/18 at 14:44; Status DC Diphenhydramine HCl (Benadryl) 25 mg 1X PRN PRN IV ITCHING; Start 10/27/18 at 14:45; Stop 10/28/18 at 14:44; Status DC Sodium Chloride 1,000 ml @ 400 mls/hr Q2H30M PRN IV PATENCY; Start 10/27/18 at 14:38; Stop 10/28/18 at 02:37; Status DC Info (PHARMACY MONITORING -- do not chart) 1 each PRN DAILY PRN MC SEE COMMENTS; Start 10/27/18 at 14:45; Status UNV Info (PHARMACY MONITORING -- do not chart) 1 each PRN DAILY PRN MC SEE COMMENTS; Start 10/27/18 at 14:45; Stop 10/30/18 at 08:49; Status DC Lidocaine/ Epinephrine (LIDOCAINE 1%-EPI 1:100,000 Multi-Dose) 20 ml STK-MED ONCE .ROUTE ; Start 10/28/18 at 11:04; Stop 10/28/18 at 11:05; Status DC Midazolam HCl (Versed) 2 mg STK-MED ONCE .ROUTE ; Start 10/28/18 at 12:51; Stop 10/28/18 at 12:52; Status DC Fentanyl Citrate (Fentanyl 2ml Vial) 100 mcg STK-MED ONCE .ROUTE ; Start 10/28/18 at 12:51; Stop 10/28/18 at 12:52; Status DC Midazolam HCl (Versed) 2 mg 1X ONCE IV Last administered on 10/28/18at 13:30; Start 10/28/18 at 13:30; Stop 10/28/18 at 13:31; Status DC Fentanyl Citrate (Fentanyl 2ml Vial) 100 mcg 1X ONCE IV Last administered on 10/28/18at 13:30; Start 10/28/18 at 13:30; Stop 10/28/18 at 13:31; Status DC Lidocaine/ Epinephrine (LIDOCAINE 1%-EPI 1:100,000 Multi-Dose) 20 ml 1X ONCE IJ Last administered on 10/28/18at 13:30; Start 10/28/18 at 13:30; Stop 10/28/18 at 13:31; Status DC Sodium Chloride 1,000 ml @ 1,000 mls/hr Q1H PRN IV hypotension; Start 10/29/18 at 15:26; Stop 10/29/18 at 21:25; Status DC Albumin Human 200 ml @ 200 mls/hr 1X PRN PRN IV Hypotension; Start 10/29/18 at 15:30; Stop 10/29/18 at 21:29; Status DC Sodium Chloride 1,000 ml @ 400 mls/hr Q2H30M PRN IV PATENCY; Start 10/29/18 at 15:26; Stop 10/30/18 at 03:25; Status DC Info (PHARMACY MONITORING -- do not chart) 1 each PRN DAILY PRN MC SEE COMMENTS; Start 10/29/18 at 15:30; Status UNV Info (PHARMACY MONITORING -- do not chart) 1 each PRN DAILY PRN MC SEE COMMENTS; Start 10/29/18 at 15:30 Heparin Sodium (Porcine) (Hep Lock Adult) 500 unit 1X ONCE IV Last administered on 10/30/18at 10:25; Start 10/30/18 at 10:15; Stop 10/30/18 at 10:16; Status DC Active Scripts Active Culturelle (Lactobacillus Rhamnosus Gg) 1 Each Cap.sprink 1 Cap PO BID 14 Days Major-Prep Hemorrhoidal Oint (Phenyleph/Mineral Oil/Petrolat) 57 Gm Oint.appl 1 Efe RC PRN QID PRN 14 Days Nystatin 15 Gm Oint...g. 1 Efe TP BID 30 Days Clotrimazole 10 Mg Vielka 10 Mg MM BID 10 Days Pantoprazole Sodium (Pantoprazole Sodium) 40 Mg Tablet.dr 40 Mg PO DAILYAC 30 Days Benzonatate 100 Mg Capsule 100 Mg PO PRN Q6HRS PRN 10 Days Hydrocodone-Apap 5-325 (Hydrocodone Bit/Acetaminophen) 1 Tab Tablet 1 Tab PO PRN Q6HRS PRN 30 Days Proair Hfa (Albuterol Sulfate) 8.5 Gm Hfa.aer.ad 2.5 Mg NEB PRN Q6HRS PRN 30 Days Midodrine Hcl 5 Mg Tablet 10 Mg PO [id number] 14 Days Reported Benadryl (Diphenhydramine Hcl) 25 Mg Capsule 25 Mg PO PRN Q6HRS PRN Calcium Acetate 667 Mg Tablet 667 Mg PO TIDWMEALS Dialyvite Tablet (Folic Acid/Vitamin B Comp W-C) 1 Each Tablet 1 Each PO QMWF Omeprazole 40 Mg Capsule. 1 Cap PO DAILY Xifaxan (Rifaximin) 550 Mg Tablet 1 Tab PO BID Fusion Plus Capsule (Iron,Fum&Ps/Fa/Vit B&C#18/L.ca) 1 Each Capsule 1 Each PO DAILY Albuterol Sulfate Conc Neb Soln (Albuterol Sulfate) 2.5 Mg/0.5 Ml Vial.neb 2.5 Mg NEB Q6HRS PRN Lactulose 20 Gm/30 Ml Solution 20 Gm PO TID Lantus Solostar (Insulin Glargine,Hum.rec.anlog) 100 Unit/1 Ml Insuln.pen 40 Units SQ DAILY08 SSI Calcium + Vitamin D Tablet (Calcium Carbonate/Vitamin D3) 1 Each Tablet 1 Each PO DAILY Albuterol Sulfate Hfa Inhaler (Albuterol Sulfate) 8.5 Gm Hfa.aer.ad 8.5 Gm IH PRN Q6HRS PRN Novolog Flexpen (Insulin Aspart) 100 Unit/1 Ml Insuln.pen 0 SQ TIDAC 0-149: 0 units 150-199: 2 units 200-249: 4 units 250-299: 6 units 300-349: 8 units 350-399: 10 units >400: Call Synthroid (Levothyroxine Sodium) 25 Mcg Tablet 300 Mcg PO DAILY Flovent 110MCG Hfa (Fluticasone Propionate) 12 Gm Aer.w.adap 1 Puff IH DAILY Vitals/I & O Vital Sign - Last 24 Hours 10/29/18 10/29/18 10/29/18 10/29/18 12:59 14:28 19:14 19:30 Temp 98.0 98.5 98.0 98.5 Pulse 102 99 109 Resp 18 16 B/P (MAP) 106/53 107/52 (70) 94/45 (61) Pulse Ox 95 98 O2 Delivery Room Air Room Air Room Air 10/29/18 10/29/18 10/30/18 10/30/18 19:32 22:00 02:00 06:18 Temp 98.3 98.4 98.3 98.4 Pulse 105 97 95 95 Resp 18 16 B/P (MAP) 94/45 93/44 (60) 90/43 (59) 90/43 Pulse Ox 91 92 O2 Delivery Room Air Room Air 10/30/18 10/30/18 07:00 08:00 Temp 98.2 98.2 Pulse 97 Resp 16 B/P (MAP) 98/48 (65) Pulse Ox 96 O2 Delivery Room Air Room Air Intake and Output 10/29/18 10/29/18 10/30/18 15:00 23:00 07:00 Intake Total 580 ml 180 ml 225 ml Balance 580 ml 180 ml 225 ml CHUCK RIVERA MD Oct 30, 2018 12:29
--- NOTE | 2018-10-30 12:29 | NUR ---
Discharge Note: YANIRA BRAVO S2 WINSTED Discharge instructions and discharge home medications reviewed with Patient and a copy given. All questions have been answered and understanding verbalized. The following instructions and handouts were given: follow up with primary, [facility], continue dialysis,and try to stop picking at her skin. Discontinued lines and drains: Port discontinued and heparin locked. dialysis access clean and dressing intact. chest access clean and dry. Patient discharged to Home with home health. spoke with son Tre by phone and he will re-initiate paracentesis. Patient left via EMS.
--- NOTE | 2018-10-30 13:31 | RAD ---
Ultrasound and fluoroscopically guided left sided tunneled thoracostomy tube. 10/30/2018 1:22 PM Indication: Recurrent left pleural effusion. Patient on hospice. Procedure: Informed consent was obtained. A timeout procedure was performed. Sonographic evaluation of the left chest was performed demonstrating moderate pleural effusion. The left posterior and lateral chest was prepped and draped in sterile fashion. 1% lidocaine without epinephrine was administered for local anesthesia. Real-time ultrasonographic guidance was used in passing a 5 [place] Intercomeh catheter into the left pleural space. This was exchanged over a wire for a peel away sheath. A tunneled thoracostomy was then advanced from a small dermatotomy several centimeters anterior to the access site, to the access site. IT was then advanced through the peel away sheath into the pleural space. The catheter was positioned apically, on fluoroscopy, possibly related to patients inability to lay supine. 1 L of serosanguineous pleural fluid was removed. S A sterile dressing was applied. No immediate complications were identified. The patient tolerated the procedure well. The procedure was performed under conscious sedation, including continuous cardiopulmonary monitoring via a dedicated sedation nurse. Face to face sedation time : 40 minutes Impression: Placement of a left sided tunneled thoracostomy tube with ultrasound and fluoroscopic guidance. TOTAL FLUORO TIME: 0.1 MIN DOSE AREA PRODUCT: 1 [id number]
== END 2018-10-30 11:10 | disposition home health service (06) | DRG 919 ==
LOC: ER 08:11 → 1 WEST ICU 10:30 → 2 NORTH 10-26 09:30
PROVIDERS: ADMIT Internal Medicine; ATTEND Internal Medicine
PROC: 0W9G3ZZ Drainage of Peritoneal Cavity, Percutaneous Approach (ICD-10-PCS; principal; 2018-10-24)
PROC: 0W9B30Z Drainage of Left Pleural Cavity with Drainage Device, Percutaneous Approach (ICD-10-PCS; 2018-10-24)
PROC: 30233N1 Transfusion of Nonautologous Red Blood Cells into Peripheral Vein, Percutaneous Approach (ICD-10-PCS; 2018-10-24)
PROC: 5A1D70Z Performance of Urinary Filtration, Intermittent, Less than 6 Hours Per Day (ICD-10-PCS; 2018-10-25)
PROC: 5A1D70Z Performance of Urinary Filtration, Intermittent, Less than 6 Hours Per Day (ICD-10-PCS; 2018-10-27)
PROC: 5A1D70Z Performance of Urinary Filtration, Intermittent, Less than 6 Hours Per Day (ICD-10-PCS; 2018-10-29)
PROC: 0W9B30Z Drainage of Left Pleural Cavity with Drainage Device, Percutaneous Approach (ICD-10-PCS; 2018-10-30)
DX: T81.19XA Other postprocedural shock, initial encounter (principal); J96.21 Acute and chronic respiratory failure with hypoxia; N18.6 End stage renal disease; R53.2 Functional quadriplegia; D68.4 Acquired coagulation factor deficiency; E44.0 Moderate protein-calorie malnutrition; R65.10 Systemic inflammatory response syndrome (SIRS) of non-infectious origin without acute organ dysfunction; J91.8 Pleural effusion in other conditions classified elsewhere; K70.31 Alcoholic cirrhosis of liver with ascites; D63.1 Anemia in chronic kidney disease; D72.828 Other elevated white blood cell count; E03.9 Hypothyroidism, unspecified; E11.22 Type 2 diabetes mellitus with diabetic chronic kidney disease; E20.9 Hypoparathyroidism, unspecified; E78.5 Hyperlipidemia, unspecified; J44.9 Chronic obstructive pulmonary disease, unspecified; K72.90 Hepatic failure, unspecified without coma; K76.0 Fatty (change of) liver, not elsewhere classified; M81.0 Age-related osteoporosis without current pathological fracture; Z79.4 Long term (current) use of insulin; Z82.49 Family history of ischemic heart disease and other diseases of the circulatory system; Z87.891 Personal history of nicotine dependence; Z90.710 Acquired absence of both cervix and uterus; Z99.2 Dependence on renal dialysis; F32.9 Major depressive disorder, single episode, unspecified; F41.9 Anxiety disorder, unspecified; E11.42 Type 2 diabetes mellitus with diabetic polyneuropathy; Z98.42 Cataract extraction status, left eye; Z98.41 Cataract extraction status, right eye; Z79.899 Other long term (current) drug therapy; Z88.5 Allergy status to narcotic agent; Z88.2 Allergy status to sulfonamides; Z88.8 Allergy status to other drugs, medicaments and biological substances; Z88.1 Allergy status to other antibiotic agents; Z91.041 Radiographic dye allergy status; Z51.5 Encounter for palliative care; Y84.4 Aspiration of fluid as the cause of abnormal reaction of the patient, or of later complication, without mention of misadventure at the time of the procedure; Y92.238 Other place in hospital as the place of occurrence of the external cause
CPT/HCPCS: 32550; 32557; 36415; 36600; 49083; 71045; 75989; 80048; 80053; 82140; 82805; 82962; 83605; 83615; 83880; 84157; 84484; 85007; 85025; 85027; 85610; 85730; 86850; 86900; 86901; 86902; 86922; 87040; 87071; 87075; 87340; 87641; 88112; 88305; 89050; 93005; 94640; 94760; 96365; 96366; 96375; 99152; 99153; A4215; C1729; C1892; C1894; J1815; J2250; J2543; J3010; J3490; J7030; J7040; J7620; J7626; P9016; P9046; 97110; 99285-25

== ENCOUNTER 2018-11-03 12:24 | Inpatient (IN) | payer MEDICAID ==
[~2018-11-03] VITALS: Ht 162.6 cm; Wt 71.7 kg
[~2018-11-03 12:24] MED LIST changes: +LACT1CAP19 PO
--- NOTE | 2018-11-03 13:23 | PHYS DOC ---
Past Medical History Past Medical History: COPD, Diabetes-Type II, Liver Disease, Renal Disease, Renal Failure, Other Additional Past Medical Histor: neuropathy,gallstones,non etoh cirossis Past Surgical History: Hysterectomy, Other Additional Past Surgical Histo: esophogeal banding after esoph. varacies. PORT PLACEMENT R CHEST Alcohol Use: None Drug Use: None Adult General Chief Complaint Chief Complaint: SHORTNESS OF BREATH HPI HPI Patient is a 63 year old female who presents with shortness of breath and low blood pressure. Patient has history of chronic renal failure and nonalcoholic cirrhosis and ascites who had a scheduled for her weekly paracentesis by inte rventional radiologist stated because of low blood pressure the procedure was not performed. Patient also missed her dialysis �2 and complaining of generalized weakness and shortness of breath. She denies chest pain, fever and chills, focal neuro deficit. Patient family thinks she is not able to stay at home with this situation. Review of Systems Review of Systems Constitutional: Denies fever or chills [] Eyes: Denies change in visual acuity, redness, or eye pain [] HENT: Denies nasal congestion or sore throat [] Respiratory: Denies cough, reports shortness of breath [] Cardiovascular: No additional information not addressed in HPI [] GI: Denies abdominal pain, nausea, vomiting, bloody stools or diarrhea [] : Denies dysuria or hematuria [] Musculoskeletal: Denies back pain or joint pain [] Integument: Denies rash or skin lesions [] Neurologic: Denies headache, focal weakness or sensory changes [] Endocrine: Denies polyuria or polydipsia [] All other systems were reviewed and found to be within normal limits, except as documented in this note. Allergies Allergies Allergies Coded Allergies Type Severity Reaction Last Updated Verified Sulfa (Sulfonamide Antibiotics) Allergy Severe Swelling 04/24/18 Yes cephalexin Allergy Severe Anaphylaxis 05/22/18 Yes doxycycline Allergy Intermediate 04/24/18 Yes gabapentin Allergy Intermediate Anxiety 06/04/18 Yes insulin detemir Allergy Intermediate Rash 04/24/18 Yes morphine Allergy Intermediate rash 04/24/18 Yes niacin Allergy Intermediate Rash 04/24/18 Yes oxycodone Allergy Intermediate rash 04/24/18 Yes povidone-iodine Allergy Intermediate It 04/24/18 Yes tramadol Allergy Intermediate Rash 04/24/18 Yes I S O L A T I O N *CONTACT* Allergy Unknown 04/24/18 Yes codeine Adverse Reaction Intermediate Nausea and Vomiting 04/24/18 Yes erythromycin base Adverse Reaction Intermediate Diarrhea 04/24/18 Yes Physical Exam Physical Exam Constitutional: Mild distress, non-toxic appearance. [] HENT: Normocephalic, atraumatic. Eyes: PERRLA, EOMI, conjunctiva normal, no discharge. [] Neck: Normal range of motion, no tenderness, supple, no stridor. [] Cardiovascular:Heart rate regular rhythm, no murmur [] Lungs & Thorax: Bilateral breath sounds clear to auscultation [] Abdomen: Largely distended with fluid, soft, no tenderness, no masses, no pulsatile masses. [] Skin: Warm, dry, no erythema, no rash. [] Back: No tenderness, no CVA tenderness. [] Extremities: No tenderness, no cyanosis, no clubbing, ROM intact, no edema. [] Neurologic: Alert and oriented X 3, normal motor function, normal sensory functi on, no focal deficits noted. [] Psychologic: Affect anxious, judgement normal, mood normal. [] Current Patient Data Vital Signs Vital Signs Date Time Temp Pulse Resp B/P (MAP) Pulse Ox O2 Delivery O2 Flow Rate FiO2 11/03/18 13:04 102 18 105/44 (64) 94 Nasal Cannula 3.0 11/03/18 12:34 97.6 97.6 Lab Values Laboratory Tests Test 11/03/18 12:52 Glucose (Fingerstick) 145 mg/dL (70-99) H EKG EKG EKG interpreted by me. EKG at 1301 showed sinus tachycardia at rate of 102, abnormal right axis deviation, low voltage QRS, poor R-wave progress in anteroseptal leads. Radiology/Procedures Radiology/Procedures [facility] [address] [place], [place] [id number] IMAGING REPORT Signed PATIENT: YANIRA BRAVO ACCOUNT: [id number] : 1955 LOCATION: [address] [place] [address] AGE: 63 SEX: F EXAM STATUS: ADM IN ORD. PHYSICIAN: MARIA D CAVANAUGH MD REASON: hypotension, soa PROCEDURE: PORTABLE CHEST 1V PORTABLE CHEST 1V Clinical Indication: Hypotension, shortness of air Comparison: AP chest, 4 days ago. Findings: Right chest Port-A-Cath is stable. Left IJ hemodialysis catheter is stable. Left pleural catheter is redemonstrated. No upper mediastinal widening. Cardiac silhouette not well evaluated due to left pleural effusion. There is large left pleural effusion, increased from prior study. Left apical pneumothorax has resolved. There is pulmonary vascular congestion. Probable small right pleural effusion. IMPRESSION: 1. Left pleural catheter is redemonstrated. Large left pleural effusion, increased from prior study. Left apical pneumothorax has resolved. 2. Pulmonary vascular congestion. 3. Probable small right pleural effusion. Electronically signed by: Jens Banks MD (11/03/2018 1:42 PM) [id number] DICTATED and SIGNED BY: JENS BANKS MD DATE: 11/03/18 134 Course & Med Decision Making Course & Med Decision Making Pertinent Labs and Imaging studies reviewed. (See chart for details) Personal patient in ER showed 63-year-old female patient with history of frequent emergency room visits and hospitalization and multiple medical problem brought in because of low blood pressure. Patient had blood pressure of 90s that gradually increased to 100 without any IV fluid. Patient had marked elevation of lactic acid and leukocytosis with history of the same problem previously. IV fluid was not given because of history of chronic renal failure. Patient treated with antibiotic. Patient requiring admission for further evaluation and treatment. Discussed with Dr. oLrd who is in agreement with admission. Discussed findings and plan with patient and family, who acknowledge understanding and agreement. Dragon Disclaimer Dragon Disclaimer This electronic medical record was generated, in whole or in part, using a voice recognition dictation system. Departure Departure Impression: Primary Impression: Generalized weakness Additional Impressions: ESRD needing dialysis Hypotension Cirrhosis Disposition: ADMITTED INPATIENT (admitted at 1342) Admitting Physician: ACES (Dr. Lord accepted admission at 1341) Condition: IMPROVED Referrals: VIANEY VU DO (PCP) Date and Time of Reassessment Date: Nov 03, 2018 Time: 13:40 Fluid Challenge Is the fluid challenge complet: No (history of chronic renal failure on dialysis) IBW Target Volume Used: No BMI > 30: No Vital Signs Vital Signs: Vital Signs Date Time Temp Pulse Resp B/P (MAP) Pulse Ox O2 Delivery O2 Flow Rate FiO2 7/15/19 13:04 102 18 105/44 (64) 94 Nasal Cannula 3.0 11/03/18 12:34 97.6 97.6 Temperature Source: Oral Respirations Respiratory Effort: Normal Cardiovascular Pulse Rhythm: Regular Heart: S1 and S2 normal Capillary Refil Capillary Refill: Rt Hand < 3 seconds Peripheral Pulse Pulse Location: Radial Pulse Strength: Weak (1+) Pulse Assessment Method: NIBP Problem Qualifiers Additional Impressions: Hypotension Hypotension type: unspecified hypotension type Qualified Codes: I95.9 - Hypotension, unspecified Cirrhosis Hepatic cirrhosis type: unspecified hepatic cirrhosis Ascites presence: unspecified Qualified Codes: K74.60 - Unspecified cirrhosis of liver MARIA D CAVANAUGH MD Nov 03, 2018 13:22
[2018-11-03 13:37] LABS: BASO # 0.1 x10^3/uL (0.0-0.2); BASO % 1 % (0-3); EOS # 0.1 x10^3/uL (0.0-0.7); EOS % 1 % (0-3); HEMATOCRIT 33.2 % (36.0-47.0); HEMOGLOBIN 10.8 g/dL (12.0-15.5); LYMPH # 0.3 x10^3/uL (1.0-4.8); LYMPH % 2 % (24-48); MEAN CORPUSCULAR HEMOGLOBIN 31 pg (25-35); MEAN CORPUSCULAR HGB CONC 33 g/dL (31-37); MEAN CORPUSCULAR VOLUME 96 fL (79-100); MONO # 1.6 x10^3/uL (0.0-1.1); MONO % 10 % (0-9); NEUT # 13.9 x10^3/uL (1.8-7.7); NEUT % 87 % (31-73); PLATELET COUNT 197 x10^3/uL (140-400); RED BLOOD COUNT 3.45 x10^6/uL (3.50-5.40); RED CELL DISTRIBUTION WIDTH 19.6 % (11.5-14.5)
[2018-11-03 13:44] LABS: CALCIUM 8.5 mg/dL (8.5-10.1); CREATININE 6.1 mg/dL (0.6-1.0); POTASSIUM 3.2 mmol/L (3.5-5.1)
--- NOTE | 2018-11-03 13:44 | RAD ---
PORTABLE CHEST 1V Clinical Indication: Hypotension, shortness of air Comparison: AP chest, 4 days ago. Findings: Right chest Port-A-Cath is stable. Left IJ hemodialysis catheter is stable. Left pleural catheter is redemonstrated. No upper mediastinal widening. Cardiac silhouette not well evaluated due to left pleural effusion. There is large left pleural effusion, increased from prior study. Left apical pneumothorax has resolved. There is pulmonary vascular congestion. Probable small right pleural effusion. IMPRESSION: 1. Left pleural catheter is redemonstrated. Large left pleural effusion, increased from prior study. Left apical pneumothorax has resolved. 2. Pulmonary vascular congestion. 3. Probable small right pleural effusion. Electronically signed by: Jens Banks MD (11/03/2018 1:42 PM) [id number]
[2018-11-03 13:50] LABS: ALBUMIN 2.7 g/dL (3.4-5.0); ALBUMIN/GLOBULIN RATIO 0.7 (1.0-1.7); TOTAL BILIRUBIN 1.9 mg/dL (0.2-1.0); TOTAL PROTEIN 6.7 g/dL (6.4-8.2)
[2018-11-03 13:54] LABS: PROTHROMBIN TIME PATIENT 17.1 SEC (11.7-14.0)
[2018-11-03 14:18] LABS: % EOS 1 % (0-5); % LYMPHS 1 % (24-48); % METAS 1 % (0-0); % MONOS 7 % (0-10); % SEGS 90 % (35-66); PLATELET CLUMP PRESENT; PLT ESTIMATE ADEQUATE (ADEQUATE)
[2018-11-03 14:19] LABS: ANISOCYTOSIS SLIGHT; HYPOCHROMIA SLIGHT
[2018-11-03 14:20] LABS: BURR CELLS OCC; SCHISTOCYTES OCC; TARGET CELLS OCC
--- NOTE | 2018-11-03 14:31 | EKG ---
[facility] [address] [place] [address] Test Date: 2018-11-03 Test Time: 13:01:40 Pat Name: YANIRA BRAVO Department: Room: Gender: F Appeals Assistant: : 1955 Requested By: MARIA D CAVANAUGH Order Number: [id number] Reading MD: Measurements Intervals [place] Rate: 103 P: 90 PA: 148 QRS: 113 QRSD: 72 T: 55 QT: 372 QTc: 489 Interpretive Statements SINUS TACHYCARDIA ABNORMAL RIGHT AXIS DEVIATION LOW VOLTAGE QRS(T) CONTOUR ABNORMALITY CONSISTENT WITH ANTEROSEPTAL INFARCT AGE UNDETERMINED NON SPECIFIC ST DEPRESSION ABNORMAL ECG No previous ECG available for comparison
[2018-11-03] MEDS: POTASSIUM CHLORIDE 20 MEQ TABLET.ER. PO ONE ×2 (14:45→14:54)
[2018-11-03] MEDS: PIPERACILLIN/TAZOBACTAM 2.25 GM in IV NORMAL SALINE 50ML 50 ML IV SCH ×2 (14:45→21:18)
[2018-11-03 15:00] VITALS: BP 129/80
--- NOTE | 2018-11-03 15:00 | NUR ---
Admission: Pt admitted to room 676 by bed from ED under Dr. Lord. Oriented to call light and unit. Pt voices many requests for food items, repositioning, handing her personal belongings, and other multiple needs. Refused Lab draw for admission labs and lactic acid. Her chest port does not have good return bloodflow, but flushes easily. Dr. Lord notified of admission, consults placed to [facility], IR, wound care, and [facility]. Multiple wounds present. Notified No [facility]WE[facility] nutritional yeast supervisor about need for P500 bed.
--- NOTE | 2018-11-03 15:52 | PDOC ---
Subjective: Subjective: Please see many GI consults including most recently from 10/14/18. Paracentesis not performed today 2/2 hypotension. GI consulted for "DIAZ syndrome." Since we have seen, had left thoracostomy tube placed. Last paracentesis on 10/24/18 (10L)? Additional h/o ESRD - missed HD x 2. No longer on Hospice - "I'm not just gonna lay there and !" Asks what Dr. Vyas is going to do for her, asks for hemorrhoid cream and lozenges for concern for thrush. Denies bleeding. Objective: Vital Signs: Vital Signs Date Time Temp Pulse Resp B/P (MAP) Pulse Ox O2 Delivery O2 Flow Rate FiO2 11/03/18 15:00 97.6 62 22 129/80 (96) 95 Nasal Cannula 3.0 97.6 Labs: Laboratory Tests Test 11/03/18 12:52 11/03/18 13:20 Glucose (Fingerstick) 145 mg/dL White Blood Count 16.0 x10^3/uL Red Blood Count 3.45 x10^6/uL Hemoglobin 10.8 g/dL Hematocrit 33.2 % Mean Corpuscular Volume 96 fL Mean Corpuscular Hemoglobin 31 pg Mean Corpuscular Hemoglobin Concent 33 g/dL Red Cell Distribution Width 19.6 % Platelet Count 197 x10^3/uL Neutrophils (%) (Auto) 87 % Lymphocytes (%) (Auto) 2 % Monocytes (%) (Auto) 10 % Eosinophils (%) (Auto) 1 % Basophils (%) (Auto) 1 % Neutrophils # (Auto) 13.9 x10^3/uL Lymphocytes # (Auto) 0.3 x10^3/uL Monocytes # (Auto) 1.6 x10^3/uL Eosinophils # (Auto) 0.1 x10^3/uL Basophils # (Auto) 0.1 x10^3/uL Segmented Neutrophils % 90 % Lymphocytes % 1 % Monocytes % 7 % Eosinophils % 1 % Metamyelocytes % 1 % Platelet Estimate Adequate Platelet Clumps, EDTA Present Hypochromasia Slight Anisocytosis Slight Target Cells Occ [place] Cells Occ Schistocytes Occ Prothrombin Time 17.1 SEC Prothromb Time International Ratio 1.4 Activated Partial Thromboplast Time 30 SEC Sodium Level 133 mmol/L Potassium Level 3.2 mmol/L Chloride Level 94 mmol/L Carbon Dioxide Level 20 mmol/L Anion Gap 19 Blood Urea Nitrogen 62 mg/dL Creatinine 6.1 mg/dL Estimated GFR (Cockcroft-Gault) 7.0 BUN/Creatinine Ratio 10 Glucose Level 157 mg/dL Lactic Acid Level 3.3 mmol/L Calcium Level 8.5 mg/dL Total Bilirubin 1.9 mg/dL Aspartate Amino Transf (AST/SGOT) 33 U/L Alanine Aminotransferase (ALT/SGPT) 25 U/L Alkaline Phosphatase 275 U/L Total Protein 6.7 g/dL Albumin 2.7 g/dL Albumin/Globulin Ratio 0.7 Imaging: CXR 11/03 IMPRESSION: 1. Left pleural catheter is redemonstrated. Large left pleural effusion, incre ased from prior study. Left apical pneumothorax has resolved. 2. Pulmonary vascular congestion. 3. Probable small right pleural effusion. PE: GEN: NAD HEENT: Atraumatic, PERRL LUNGS: NC 3L - unable to turn to show me pleural cath HEART: tachycardic ABD: ascites, tight EXTREMITY/SKIN: bilateral heel wounds, skin tears on arms NEURO/PSYCH: A & O �3 A/P: ESLD w/ ascites requiring frequent paracentesis, ESRD on HD, chronic anemia Hypotension, leukocytosis, lactic acidosis, left pleural effusion - per primary -- MELD 30. Pt/family inconsistent w/ goals of care in the past, further eval declined by [facility] due to past behavior, unable to transfer to [facility] due to insurance, verbally aggressive and uncooperative with staff in the past. Restart the usual per GI - Xifaxan, PPI, lactulose if needed. Preparation-H per her request. She also requests clotrimazole lozenges - will review w/ Dr. Vyas. JENNIE ABRAMS Nov 03, 2018 15:52
--- NOTE | 2018-11-03 16:00 | NUR ---
Wound Care: Consult to eval and treat for multiple wounds present on admission. Small scab removed from R heel during cleansing, revealing small open DFU with moderate purulent drainage for size. Cleansed and culture of wound obtained. Dressed with aquacel AG and foam. Foam to L heel for protection. IAD to bilateral buttocks, cleansed and applied barrier cream. Pt is incontinent of stool. Multiple skin tears to RFA and hand, scabs dried to previous dressing. Cleansed and covered with xeroform and foam dressings. Consult to Dr. Burns for infected DFU.
[2018-11-03] MEDS ORDERED: PHENYLEPH/MINERAL OIL/PETROLAT RECTAL OINTMENT 57GM TUBE. RC PRN (16:15)
[2018-11-03] MEDS ORDERED: LACTULOSE 20 GM/30 ML SOLUTION. PO PRN (16:15)
[2018-11-03] MEDS ORDERED: C.DIFF MED SCREEN BY RX. MC ONE (17:45)
[2018-11-03] MEDS ORDERED: HYDROCORTISONE ACETATE 25 MG SUPP.RECT PR PRN (17:45)
[2018-11-03] MEDS ORDERED: PIPERACILLIN/TAZOBACTAM 3.375 GM in IV NORMAL SALINE 50ML 50 ML IV SCH (18:00)
[2018-11-03 19:38] VITALS: BP 118/33
[2018-11-03] MEDS: NYSTATIN TOPICAL POWDER 15GM BOTTLE. TP SCH (21:17)
[2018-11-03] MEDS: rifAXIMin 550 MG TABLET PO SCH (21:17)
--- NOTE | 2018-11-03 22:48 | HP ---
ADMIT DATE: 11/03/2018 CHIEF COMPLAINT: Shortness of breath and abdominal distention. HISTORY OF PRESENT ILLNESS: The patient is a pleasant 63-year-old female who has end-stage liver disease, secondary to DIAZ syndrome. She is well known to our service. We have been admitting her every week for the past month or two. I have tried to set her up with hospice and she appears to want hospice, but states her family does not want her to have it. Once again, she presents with massive ascites. She is hypoxic. Rates her symptoms at 10/10. She has associated weakness. This has been occurring for several days. She missed her dialysis because her blood pressure is running low. I discussed the case with the ER physician. We are going to admit the patient and get her tapped and get Nephrology on board as well. 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 ALLERGIES: MULTIPLE INCLUDING SULFA, CEPHALEXIN, CODEINE, DOXYCYCLINE, ERYTHROMYCIN, GABAPENTIN, INSULIN, MORPHINE, NIACIN, OXYCODONE AND ULTRAM. FAMILY HISTORY: Hypertension. SOCIAL HISTORY: She does not drink, smoke or take drugs. MEDICATIONS: Reviewed, please refer to the MRAD. REVIEW OF SYSTEMS: Unable to obtain. The patient is too confused. PHYSICAL EXAMINATION: VITAL SIGNS: Temperature afebrile, pulse 92, respirations 18 and blood pressure 105/90. GENERAL: She is sleeping. She awakens, she is tearful, confused. HEART: Distant S1, S2. LUNGS: Clear. ABDOMEN: Soft and distended with massive ascites. EXTREMITIES: 1+ edema. SKIN: She is jaundiced. ENDOCRINE: No thyromegaly. LYMPHATICS: No cervical nodes. HEMATOPOIETIC: No bruising. PSYCHIATRIC: She is depressed. LABORATORY DATA: White count 16, hemoglobin 10.8 and platelets 197. Electrolytes are all off including sodium of 133, potassium of 3.2, chloride 94, bicarbonate 20, BUN 62, creatinine 6.1 and glucose 157. ASSESSMENT: 1. End-stage liver disease with massive ascites. 2. Hypotension. 3. Severe electrolyte disturbance. 4. Leukocytosis. 5. Anemia. 6. Coagulopathy. PLAN: The patient is being admitted. She is very ill. Her prognosis is extremely poor, maybe a few weeks to a couple of months at the very most. I discussed the case with her nurse and the ER physician. We are going to consult GI, Nephrology and Interventional Radiology. We hope to get her paracentesis done soon, so she can breathe a little better. I would like to get her home with hospice if the family will agree. This is a critically ill patient. TOTAL TIME: 32 minutes. SULTANA HERNANDES DO DR: DONAL/rebeka JOB#: [id number] / [id number]
[2018-11-04 03:48] VITALS: BP 104/41
[2018-11-04] MEDS: PIPERACILLIN/TAZOBACTAM 2.25 GM in IV NORMAL SALINE 50ML 50 ML IV SCH (04:57)
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
--- NOTE | 2018-11-04 06:02 | NUR ---
Received call from lab- patient has refused blood cultures and labs. Refusing to wear telemetry.
--- NOTE | 2018-11-04 06:47 | NUR ---
pt called at this time furniture salesperson light to "get cleaned up"
--- NOTE | 2018-11-04 07:05 | NUR ---
pt called at this time control officer manager light and spoke with escrow secretary Stephanie and stated "you already know what i want"
--- NOTE | 2018-11-04 07:15 | NUR ---
pt called operations and maintenance specialist light at this time and stated "i feel like my mask isnt working, i cant breathe". This RN went and assessed pt and pt did not have mask on face. Placed mask on face and pt stated she felt better. will continue to monitor.
--- NOTE | 2018-11-04 07:27 | NUR ---
pt called hospital nurse liaison light at this time and wanted us to call her daughter
[2018-11-04] MEDS ORDERED: PANTOPRAZOLE 40 MG TABLET.DR. PO SCH (07:30)
[2018-11-04 07:59] VITALS: BP 98/44
[2018-11-04] MEDS: rifAXIMin 550 MG TABLET PO SCH (08:27)
[2018-11-04] MEDS ORDERED: LIDOCAINE WITH 8.4% SOD BICARB 3 ML DISP.SYRIN. ONE (08:36)
[2018-11-04] MEDS: NYSTATIN TOPICAL POWDER 15GM BOTTLE. TP SCH (08:39)
[2018-11-04 09:15] VITALS: BP 101/46
[2018-11-04] MEDS ORDERED: ALBUMIN HUMAN 25% 100 ML IV ONE ×2 (09:24→09:45)
[2018-11-04 09:26] VITALS: BP 97/68
[2018-11-04 09:39] VITALS: BP 116/55
--- NOTE | 2018-11-04 09:44 | NUR ---
pt left for paracentesis and thoracentesis at 0900
[2018-11-04] MEDS ORDERED: LIDOCAINE WITH 8.4% SOD BICARB 3 ML DISP.SYRIN. IJ ONE (09:45)
[2018-11-04] MEDS ORDERED: PHENYLEPH/MINERAL OIL/PETROLAT RECTAL OINTMENT 57GM TUBE. RC PRN (09:45)
[2018-11-04] MEDS ORDERED: diphenhydrAMINE HCL 25 MG CAPSULE PO PRN (09:45)
[2018-11-04] MEDS ORDERED: ALBUTEROL SULFATE 2.5 MG/3 ML NEBU. NEB PRN (09:45)
[2018-11-04] MEDS ORDERED: HYDROcodone/APAP 5/325MG 1 TAB TABLET PO PRN (09:45)
--- NOTE | 2018-11-04 09:54 | NUR ---
IP: Pt has a hx of (R) Klebsiella pneumoniae R-Meropenem in urine on 09/07/18. Pt to be in contact precautions unitl there are 2 negative urine cultures 7 days apart without antibiotics.
[2018-11-04] MEDS ORDERED: CALCIUM CARB/VIT D3 500/200 TABLET. PO SCH (10:00)
[2018-11-04] MEDS ORDERED: INSULIN GLARGINE 300 UNITS/3 ML INSULN.PEN. SQ SCH (10:00)
[2018-11-04] MEDS ORDERED: LACTULOSE 20 GM/30 ML SOLUTION. PO SCH (10:00)
[2018-11-04] MEDS ORDERED: NYSTATIN 100,000 UNIT/GM TOPICAL OINTMENT 15GM TUBE. TP SCH (10:00)
[2018-11-04] MEDS ORDERED: CLOTRIMAZOLE 10 MG TROCHE. MM SCH (10:00)
[2018-11-04] MEDS ORDERED: LACTOBACILLUS RHAMNOSUS GG 1 CAPSULE. PO SCH (10:00)
--- NOTE | 2018-11-04 10:00 | NUR ---
pt returned from her paracentesis and thoracentesis at this time. she got 900ml out of her thoracentesis and 6600ml out of her paracentesis. pt is complaining of 7/10 pain and requesting tylenol. pt is oriented but drowsy. pt has call light within reach. will continue to monitor.
[2018-11-04] MEDS ORDERED: MULTIVITAMIN with MINERAL TABLET. PO SCH (10:30)
[2018-11-04] MEDS ORDERED: BUDESONIDE 0.5 MG/2 ML NEBU. NEB SCH (10:30)
[2018-11-04] MEDS ORDERED: LEVOTHYROXINE 100 MCG TABLET PO SCH (10:30)
--- NOTE | 2018-11-04 11:02 | NUR ---
Pharmacy Medication Review S: Consulted for medication review re: C.diff Risk Assessment score of 7 O: YANIRA BRAVO is a 63 year old with: Previous C.diff infection: <1yr ago Previous hospitalization: Within 30 days Recent antibiotics: Within 30 days Use of gastric acid suppressor: Yes Transfer from NH/LTAC: No Current antibiotic regimen: ZOSYN Current acid suppression regimen: PANTOPRAZOLE A: Patient has been identified as having risk factors for C.diff infection as noted above. P: ABX DE-ESCALATION RECOMMENDED: BROAD SPECTRUM APPROPRIATE FOR NOW, AWAIT CX PROBIOTIC ORDERED: YES PPI CHANGED TO [id number]: NO, PT HAS HX GERD AFSANEH HERNANDEZ, [facility], 11/04/18 110
[2018-11-04] MEDS ORDERED: ACETAMINOPHEN 500 MG TABLET PO PRN (11:15)
--- NOTE | 2018-11-04 11:16 | PDOC2 ---
CONSULT Date of Consult Date of Consult DATE: 11/04/18 TIME: 11:16 Reason for Consult Reason for Consult: ESRD Source Source: Chart review History of Present Illness Reason for Visit: Pt is a 63-year-old female who has end-stage liver disease, secondary to DIAZ syndrome. 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 She gets weekly Paracentesis. She was hypoxic at presentation , has increased Pleural effusion . She just underwent paracentesis and thoracentesis, currently on stable O2 3 Lts . No increase Shortness of breath . Past Medical History Cardiovascular: HTN, Hyperlipidemia Pulmonary: Asthma, COPD CENTRAL NERVOUS SYSTEM: Other GI: Constipation, GERD, GI bleed, Gastritis, Hemorrhoids, Other Heme/Onc: Anemia NOS Hepatobiliary: Cirrhosis Psych: Anxiety, Depression Musculoskeletal: Osteoarthritis Renal/: Acute renal failure, Chronic renal failure, UTI, Urinary Incontinence Endocrine: Diabetes, Hypothyroidism, Hyperparathyroidism Past Surgical History Past Surgical History: Cataract Removal, Tonsillectomy, Hysterectomy, Other Family History Family History: High Cholestrol, Hypertension, Family History Unknown Social History ALCOHOL: none Drugs: None Domestic Violence: Neg Current Problem List Problem List Problems Medical Problems: (1) Hypotension Status: Acute Current Medications Current Medications Current Medications Piperacillin Sod/ Tazobactam Sod 3.375 gm/Sodium Chloride 50 ml @ 100 mls/hr Q6HRS IV ; Start 11/03/18 at 18:00; Status UNV Potassium Chloride (Klor-Con) 20 meq 1X ONCE PO ; Start 11/03/18 at 14:30; Stop 11/03/18 at 14:31; Status DC Piperacillin Sod/ Tazobactam Sod 2.25 gm/Sodium Chloride 50 ml @ 100 mls/hr Q8HRS IV Last administered on 11/04/18at 04:57; Start 11/03/18 at 15:00 Rifaximin (Xifaxan) 550 mg Q12HR PO Last administered on 11/04/18at 08:27; Start 11/03/18 at 21:00 Pantoprazole Sodium (Protonix) 40 mg DAILYAC PO Last administered on 11/04/18at 08:27; Start 11/04/18 at 07:30 Phenyleph/Shark Oil/Min Oil/Petrol (Preparation H) 1 efe PRN QID PRN RC RECTAL PAIN MILD TO MOD; Start 11/03/18 at 16:15 Lactulose (Lactulose) 20 gm PRN TID PRN PO CONSTIPATION; Start 11/03/18 at 16:15 Hydrocortisone Acetate (Anucort-Hc) 25 mg HS PRN SD RECTAL PAIN SEVERE; Start 11/03/18 at 17:45 Pharmacy Consult (C.diff Med Screen By Rx) 1 each 1X ONCE MC ; Start 11/03/18 at 17:45; Stop 11/03/18 at 17:46; Status DC Nystatin (Nystop) 1 efe BID TP Last administered on 11/04/18at 08:39; Start 11/03/18 at 21:00 Lidocaine/Sodium Bicarbonate (Buffered Lidocaine 1%) 3 ml STK-MED ONCE .ROUTE ; Start 11/04/18 at 08:36; Stop 11/04/18 at 08:37; Status DC Albumin Human 100 ml @ As Directed STK-MED ONCE IV ; Start 11/04/18 at 09:24; Stop 11/04/18 at 09:25; Status DC Albuterol Sulfate (Ventolin Neb Soln) 2.5 mg PRN Q6HRS PRN NEB SHORTNESS OF BREATH; Start 11/04/18 at 09:45 Clotrimazole (Mycelex) 10 mg BID MM Last administered on 11/04/18at 10:00; Start 11/04/18 at 10:00 Diphenhydramine HCl (Benadryl) 25 mg PRN Q6HRS PRN PO ITCHING; Start 11/04/18 at 09:45 Acetaminophen/ Hydrocodone Bitart (Lortab 5/325) 1 tab PRN Q6HRS PRN PO PAIN; Start 11/04/18 at 09:45; Stop 11/04/18 at 10:42; Status DC Insulin Glargine (Lantus) 40 units DAILY08 SQ Last administered on 11/04/18at 10:31; Start 11/04/18 at 10:00 Lactobacillus Rhamnosus (Culturelle) 1 cap BID PO Last administered on 11/04/18at 10:22; Start 11/04/18 at 10:00 Lactulose (Lactulose) 20 gm TID PO ; Start 11/04/18 at 10:00 Nystatin (Mycostatin) 1 efe BID TP ; Start 11/04/18 at 10:00 Phenyleph/Shark Oil/Min Oil/Petrol (Preparation H) 1 efe PRN QID PRN RC RECTAL PAIN; Start 11/04/18 at 09:45; Status UNV Benzonatate (Tessalon Perle) 100 mg PRN Q6HRS PRN PO COUGH; Start 11/04/18 at 14:00 Calcium Acetate (Phoslo) 667 mg TIDWMEALS PO ; Start 11/04/18 at 12:00 Calcium/Vitamin D (Oscal D 500mg/ 200uts) 1 tab DAILY PO ; Start 11/04/18 at 10:00 Budesonide (Pulmicort) 0.5 mg RTBID NEB ; Start 11/04/18 at 10:30 Vitamin B Complex/ Vitamin C (Tasia-Meliton) 1 tab MoWeFr@1600 PO ; Start 11/05/18 at 16:00 Multivitamins (Thera M Plus) 1 tab DAILY PO Last administered on 11/04/18at 10:22; Start 11/04/18 at 10:30 Levothyroxine Sodium (Synthroid) 300 mcg DAILY06 PO Last administered on 11/04/18at 10:22; Start 11/04/18 at 10:30 Midodrine (Proamatine) 10 mg [id number] PO ; Start 11/04/18 at 13:00 Non-Formulary Medication (Omeprazole ) 1 cap DAILY PO ; Start 11/05/18 at 09:00; Status UNV Lidocaine/Sodium Bicarbonate (Buffered Lidocaine 1%) 6 ml 1X ONCE IJ Last administered on 11/04/18at 09:44; Start 11/04/18 at 09:45; Stop 11/04/18 at 10:00; Status DC Albumin Human 100 ml @ 100 mls/hr 1X ONCE IV Last administered on 11/04/18at 09:45; Start 11/04/18 at 09:45; Stop 11/04/18 at 10:44; Status DC Acetaminophen (Tylenol) 500 mg PRN Q6HRS PRN PO HEADACHE / TEMP; Start 11/04/18 at 11:15 Active Scripts Active Culturelle (Lactobacillus Rhamnosus Gg) 1 Each Cap.sprink 1 Cap PO BID 14 Days Major-Prep Hemorrhoidal Oint (Phenyleph/Mineral Oil/Petrolat) 57 Gm Oint.appl 1 Efe RC PRN QID PRN 14 Days Nystatin 15 Gm Oint...g. 1 Efe TP BID 30 Days Clotrimazole 10 Mg Vielka 10 Mg MM BID 10 Days Benzonatate 100 Mg Capsule 100 Mg PO PRN Q6HRS PRN 10 Days Proair Hfa (Albuterol Sulfate) 8.5 Gm Hfa.aer.ad 2.5 Mg NEB PRN Q6HRS PRN 30 Day s Midodrine Hcl 5 Mg Tablet 10 Mg PO [id number] 14 Days Reported Benadryl (Diphenhydramine Hcl) 25 Mg Capsule 25 Mg PO PRN Q6HRS PRN Calcium Acetate 667 Mg Tablet 667 Mg PO TIDWMEALS Dialyvite Tablet (Folic Acid/Vitamin B Comp W-C) 1 Each Tablet 1 Each PO QMWF Omeprazole 40 Mg Capsule.dr 1 Cap PO DAILY Xifaxan (Rifaximin) 550 Mg Tablet 1 Tab PO BID Fusion Plus Capsule (Iron,Fum&Ps/Fa/Vit B&C#18/L.ca) 1 Each Capsule 1 Each PO DAILY Albuterol Sulfate Conc Neb Soln (Albuterol Sulfate) 2.5 Mg/0.5 Ml Vial.neb 2.5 Mg NEB Q6HRS PRN Lactulose 20 Gm/30 Ml Solution 20 Gm PO TID Lantus Solostar (Insulin Glargine,Hum.rec.anlog) 100 Unit/1 Ml Insuln.pen 40 Units SQ DAILY08 SSI Calcium + Vitamin D Tablet (Calcium Carbonate/Vitamin D3) 1 Each Tablet 1 Each PO DAILY Novolog Flexpen (Insulin Aspart) 100 Unit/1 Ml Insuln.pen 0 SQ TIDAC 0-149: 0 units 150-199: 2 units 200-249: 4 units 250-299: 6 units 300-349: 8 units 350-399: 10 units >400: Call Synthroid (Levothyroxine Sodium) 25 Mcg Tablet 300 Mcg PO DAILY Flovent 110MCG Hfa (Fluticasone Propionate) 12 Gm Aer.w.adap 1 Puff IH DAILY Allergies Allergies: Coded Allergies: Sulfa (Sulfonamide Antibiotics) (Verified Allergy, Severe, Swelling, 04/24/18) tongue swelling, rash cephalexin (Verified Allergy, Severe, Anaphylaxis, 05/22/18) TOLERATES AMOX, ZOSYN doxycycline (Verified Allergy, Intermediate, 04/24/18) gabapentin (Verified Allergy, Intermediate, Anxiety, 06/04/18) pt states gabapentin caused her to be admitted to [facility] where she presented "because I was out of my mind from that drug." hydrocodone (Verified Allergy, Intermediate, Rash, 11/04/18) REFUSES LORTAB,ETC insulin detemir (Verified Allergy, Intermediate, Rash, 04/24/18) morphine (Verified Allergy, Intermediate, rash, 04/24/18) niacin (Verified Allergy, Intermediate, Rash, 04/24/18) edema oxycodone (Verified Allergy, Intermediate, rash, 04/24/18) povidone-iodine (Verified Allergy, Intermediate, It, 04/24/18) tramadol (Verified Allergy, Intermediate, Rash, 04/24/18) I S O L A T I O N *CONTACT* (Verified Allergy, Unknown, 04/24/18) VRE - urine 12/20/17 codeine (Verified Adverse Reaction, Intermediate, Nausea and Vomiting, 04/24/18) erythromycin base (Verified Adverse Reaction, Intermediate, Diarrhea, 04/24/18) ROS Review of System Per HPI Physical Exam Physical Exam GENERAL: NAD HEEN- OM moist, on O2 y NC Neck Supple HEART: RRR LUNGS: Clear, No use o accessory muscle ABDOMEN: distended with massive ascites. EXTREMITIES: 1+ edema. SKIN: No rash No Ashley Vital Signs Vital Signs Date Time Temp Pulse Resp B/P (MAP) Pulse Ox O2 Delivery O2 Flow Rate FiO2 11/04/18 09:39 102 16 116/55 (75) 94 Nasal Cannula 4.0 11/04/18 07:59 97.7 97.7 Assessment & Plan ESRD - On HD MWF@ [facility]- Dr. Tracy Severe Non compliance Currently Improved breathing since paracentesis and Thoracentesis, stable chronic 02 Currently no indication for HD, Tomorrow per her schedule AScites/ESLD- s/p paracentesis 6.5 Lt Pleural effusion- with indwelling Pleurx catheter,1 Lt fluid removed Anemia- Hgb low, Severe Non compliance with HD Misses LUC/Fe given per protocol on HD Discussed with [facility] Labs Labs Laboratory Tests Test 11/03/18 12:52 11/03/18 13:20 11/03/18 17:11 11/03/18 20:18 Glucose (Fingerstick) 145 mg/dL (70-99) 206 mg/dL (70-99) 266 mg/dL (70-99) White Blood Count 16.0 x10^3/uL (4.0-11.0) Red Blood Count 3.45 x10^6/uL (3.50-5.40) Hemoglobin 10.8 g/dL (12.0-15.5) Hematocrit 33.2 % (36.0-47.0) Mean Corpuscular Volume 96 fL (79-100) Mean Corpuscular Hemoglobin 31 pg (25-35) Mean Corpuscular Hemoglobin Concent 33 g/dL (31-37) Red Cell Distribution Width 19.6 % (11.5-14.5) Platelet Count 197 x10^3/uL (140-400) Neutrophils (%) (Auto) 87 % (31-73) Lymphocytes (%) (Auto) 2 % (24-48) Monocytes (%) (Auto) 10 % (0-9) Eosinophils (%) (Auto) 1 % (0-3) Basophils (%) (Auto) 1 % (0-3) Neutrophils # (Auto) 13.9 x10^3/uL (1.8-7.7) Lymphocytes # (Auto) 0.3 x10^3/uL (1.0-4.8) Monocytes # (Auto) 1.6 x10^3/uL (0.0-1.1) Eosinophils # (Auto) 0.1 x10^3/uL (0.0-0.7) Basophils # (Auto) 0.1 x10^3/uL (0.0-0.2) Segmented Neutrophils % 90 % (35-66) Lymphocytes % 1 % (24-48) Monocytes % 7 % (0-10) Eosinophils % 1 % (0-5) Metamyelocytes % 1 % (0-0) Platelet Estimate Adequate (ADEQUATE) Platelet Clumps, EDTA Present Hypochromasia Slight Anisocytosis Slight Target Cells Occ [place] Cells Occ Schistocytes Occ Prothrombin Time 17.1 SEC (11.7-14.0) Prothromb Time International Ratio 1.4 (0.8-1.1) Activated Partial Thromboplast Time 30 SEC (24-38) Sodium Level 133 mmol/L (136-145) Potassium Level 3.2 mmol/L (3.5-5.1) Chloride Level 94 mmol/L (98-107) Carbon Dioxide Level 20 mmol/L (21-32) Anion Gap 19 (6-14) Blood Urea Nitrogen 62 mg/dL (7-20) Creatinine 6.1 mg/dL (0.6-1.0) Estimated GFR (Cockcroft-Gault) 7.0 BUN/Creatinine Ratio 10 (6-20) Glucose Level 157 mg/dL (70-99) Lactic Acid Level 3.3 mmol/L (0.4-2.0) Calcium Level 8.5 mg/dL (8.5-10.1) Total Bilirubin 1.9 mg/dL (0.2-1.0) Aspartate Amino Transf (AST/SGOT) 33 U/L (15-37) Alanine Aminotransferase (ALT/SGPT) 25 U/L (14-59) Alkaline Phosphatase 275 U/L (46-116) Total Protein 6.7 g/dL (6.4-8.2) Albumin 2.7 g/dL (3.4-5.0) Albumin/Globulin Ratio 0.7 (1.0-1.7) Test 11/04/18 07:32 Glucose (Fingerstick) 256 mg/dL (70-99) Laboratory Tests Test 11/03/18 12:52 11/03/18 13:20 11/03/18 17:11 11/03/18 20:18 Glucose (Fingerstick) 145 mg/dL (70-99) 206 mg/dL (70-99) 266 mg/dL (70-99) White Blood Count 16.0 x10^3/uL (4.0-11.0) Red Blood Count 3.45 x10^6/uL (3.50-5.40) Hemoglobin 10.8 g/dL (12.0-15.5) Hematocrit 33.2 % (36.0-47.0) Mean Corpuscular Volume 96 fL (79-100) Mean Corpuscular Hemoglobin 31 pg (25-35) Mean Corpuscular Hemoglobin Concent 33 g/dL (31-37) Red Cell Distribution Width 19.6 % (11.5-14.5) Platelet Count 197 x10^3/uL (140-400) Neutrophils (%) (Auto) 87 % (31-73) Lymphocytes (%) (Auto) 2 % (24-48) Monocytes (%) (Auto) 10 % (0-9) Eosinophils (%) (Auto) 1 % (0-3) Basophils (%) (Auto) 1 % (0-3) Neutrophils # (Auto) 13.9 x10^3/uL (1.8-7.7) Lymphocytes # (Auto) 0.3 x10^3/uL (1.0-4.8) Monocytes # (Auto) 1.6 x10^3/uL (0.0-1.1) Eosinophils # (Auto) 0.1 x10^3/uL (0.0-0.7) Basophils # (Auto) 0.1 x10^3/uL (0.0-0.2) Segmented Neutrophils % 90 % (35-66) Lymphocytes % 1 % (24-48) Monocytes % 7 % (0-10) Eosinophils % 1 % (0-5) Metamyelocytes % 1 % (0-0) Platelet Estimate Adequate (ADEQUATE) Platelet Clumps, EDTA Present Hypochromasia Slight Anisocytosis Slight Target Cells Occ [place] Cells Occ Schistocytes Occ Prothrombin Time 17.1 SEC (11.7-14.0) Prothromb Time International Ratio 1.4 (0.8-1.1) Activated Partial Thromboplast Time 30 SEC (24-38) Sodium Level 133 mmol/L (136-145) Potassium Level 3.2 mmol/L (3.5-5.1) Chloride Level 94 mmol/L (98-107) Carbon Dioxide Level 20 mmol/L (21-32) Anion Gap 19 (6-14) Blood Urea Nitrogen 62 mg/dL (7-20) Creatinine 6.1 mg/dL (0.6-1.0) Estimated GFR (Cockcroft-Gault) 7.0 BUN/Creatinine Ratio 10 (6-20) Glucose Level 157 mg/dL (70-99) Lactic Acid Level 3.3 mmol/L (0.4-2.0) Calcium Level 8.5 mg/dL (8.5-10.1) Total Bilirubin 1.9 mg/dL (0.2-1.0) Aspartate Amino Transf (AST/SGOT) 33 U/L (15-37) Alanine Aminotransferase (ALT/SGPT) 25 U/L (14-59) Alkaline Phosphatase 275 U/L (46-116) Total Protein 6.7 g/dL (6.4-8.2) Albumin 2.7 g/dL (3.4-5.0) Albumin/Globulin Ratio 0.7 (1.0-1.7) Test 11/04/18 07:32 Glucose (Fingerstick) 256 mg/dL (70-99) Review All relevant outside records, renal labs, imaging studies, telemetry/EKG's were reviewed. DARLING SHORT MD Nov 04, 2018 11:16
[2018-11-04 11:21] VITALS: BP 153/61
--- NOTE | 2018-11-04 11:21 | SNU/HH DC ---
DISCHARGE WITH HOME HEALTH DISCHARGE INFORMATION: Discharge Date: Nov 04, 2018 Final Diagnosis: Problems Medical Problems: (1) Hypotension Status: Acute Condition on Discharge: Stable CODE STATUS: Code Status: Full HOME HEALTH: Face to Face: I certify this patient is under my care and that I, or a nurse practitioner or physician's res habilitation assistant working with me, had a face to face encounter that meets the physician face to face encounter requirements with this patient on []. Medical Complications: Other (recurrent ascites, pleuarl eff) RN For Eval/Treatment: Yes Physical Therapy For: Evalulation/Treatment Occupational Therapy For: Evaluation/Treatment Speech Language Pathology For: Evaluation/Treatment Home Health Aide For: Self-care LANDSCAPE ARCHITECT For: Community Resources Pt Meets Homebound Status: Poor coordination w/ amb. POST DISCHARGE ORDERS: Activity Instructions for Disc: Activity as tolerated Weight Bearing Status after Di: As tolerated Bathing Instructions: Shower-keep dressing dry, No Tub Bath until see DIET AFTER DISCHARGE: Renal Wound/Incision Care: Change dressing CHECKS AFTER DISCHARGE: Checks after discharge: Check blood press - daily, Check blood sugar, ac/hs, Weigh Yourself Daily FOLLOW-UP: PCP to follow Home Health: drain pleurex cath daily TREATMENT/EQUIPMENT ORDERS: Adaptive Equipment Issued: None Discharge Respiratory Equipmen: Oxygen CERTIFICATION STATEMENT: Certification Statement: Certification Statement: Based on the above finding, I certify that this patient is confined to the home and needs intermittent assisted care, physical therapy and/or speech therapy, or continues to need occupational therapy.~ This patient is under my care, and I have initiated the establishment of the plan of care.~ This patient will be followed by myself or a community physician who will periodically review the plan of care. Home Meds Active Scripts Lactobacillus Rhamnosus Gg (CULTURELLE) 1 Each Cap.sprink, 1 CAP PO BID for SUPPLEMENT for 14 Days, #28 CAP Prov:CHUCK RIVERA MD 10/29/18 Phenyleph/Mineral Oil/Petrolat (Major-Prep Hemorrhoidal Oint) 57 Gm Oint.appl, 1 RENATA RC PRN QID PRN for RECTAL PAIN for 14 Days, #60 MISC Prov:CHUCK RIVERA MD 10/21/18 Nystatin (NYSTATIN) 15 Gm Oint...g., 1 RENATA TP BID for RASH for 30 Days, #60 MISC Prov:CHUCK RIVERA MD 10/21/18 Clotrimazole (CLOTRIMAZOLE) 10 Mg Vielka, 10 MG MM BID for THRUSH for 10 Days, #20 LOZENGE Prov:CHUCK RIVERA MD 10/21/18 Benzonatate (BENZONATATE) 100 Mg Capsule, 100 MG PO PRN Q6HRS PRN for cough for 10 Days, #60 CAP Prov:CHUCK RIVERA MD 10/21/18 Albuterol Sulfate (Proair Hfa) 8.5 Gm Hfa.aer.ad, 2.5 MG NEB PRN Q6HRS PRN for SHORTNESS OF BREATH for 30 Days, #1 INHALER Prov:CHUCK RIVERA MD 10/21/18 Midodrine Hcl (MIDODRINE HCL) 5 Mg Tablet, 10 MG PO [id number] for hypotension for 14 Days, #84 TAB Prov:TEDDY PERALES MD 09/10/18 Reported Medications Diphenhydramine Hcl (BENADRYL) 25 Mg Capsule, 25 MG PO PRN Q6HRS PRN for ITCHING, CAP 08/12/18 Calcium Acetate (CALCIUM ACETATE) 667 Mg Tablet, 667 MG PO TIDWMEALS for DIALYSIS PATIENTS, CAP 07/03/18 Folic Acid/Vitamin B Comp W-C (DIALYVITE TABLET) 1 Each Tablet, 1 EACH PO QMWF for after dialysis on dialysis day, TAB 07/03/18 Omeprazole (OMEPRAZOLE) 40 Mg Capsule.dr, 1 CAP PO DAILY for gerd, #30 CAP 3 Re fills 05/01/18 Rifaximin (XIFAXAN) 550 Mg Tablet, 1 TAB PO BID, #28 TAB 02/07/18 Iron,Fum&Ps/Fa/Vit B&C#18/L.ca (FUSION PLUS CAPSULE) 1 Each Capsule, 1 EACH PO DAILY for esrd, CAP 05/09/17 Albuterol Sulfate (ALBUTEROL SULFATE CONC NEB SOLN) 2.5 Mg/0.5 Ml Vial.neb, 2.5 MG NEB Q6HRS PRN for SHORTNESS OF BREATH, EACH 0 Refills 08/03/15 Lactulose (LACTULOSE) 20 Gm/30 Ml Solution, 20 GM PO TID 08/03/15 Insulin Glargine,Hum.rec.anlog (LANTUS SOLOSTAR) 100 Unit/1 Ml Insuln.pen, 40 UNITS SQ DAILY08 for DM SSI 06/10/13 Calcium Carbonate/Vitamin D3 (CALCIUM + VITAMIN D TABLET) 1 Each Tablet, 1 EACH PO DAILY for supplement 06/02/13 Insulin Aspart (NOVOLOG FLEXPEN) 100 Unit/1 Ml Insuln.pen, 0 SQ TIDAC for DM 0-149: 0 units 150-199: 2 units 200-249: 4 units 250-299: 6 units 300-349: 8 units 350-399: 10 units >400: Call 06/02/13 Levothyroxine Sodium (SYNTHROID) 25 Mcg Tablet, 300 MCG PO DAILY 06/02/13 Fluticasone Propionate (FLOVENT 110MCG HFA) 12 Gm Aer.w.adap, 1 PUFF IH DAILY for copd 06/02/13 Discontinued Reported Medications Midodrine Hcl (MIDODRINE HCL) 5 Mg Tablet, 5 MG PO BID92 for other, TAB 10/14/18 Discontinued Scripts Hydrocodone Bit/Acetaminophen (HYDROCODONE-APAP 5-325 ) 1 Tab Tablet, 1 TAB PO PRN Q6HRS PRN for PAIN for 30 Days, #60 TAB Prov:CHUCK RIVERA MD 10/21/18 Levofloxacin (LEVAQUIN) 500 Mg Tablet, 0.5 TAB PO DAILY for pneumonia, #7 TAB Prov:ABE RIVER MD 10/01/18 ABE RIVER MD Nov 04, 2018 11:21
--- NOTE | 2018-11-04 11:25 | PDOC3 ---
Discharge Summary Visit Information Date of Admission: Nov 03, 2018 Date of Discharge: Nov 04, 2018 Admitting Diagnosis Comment: Status post large-volume paracentesis 6 L today 11/04/2018 Recurrent left pleural effusion with indwelling Pleurx catheter ESRD on dialysis Saturday, noncompliance Anemia of ESRD Functional quadriplegia Full code Hypotension medically Diabetes type 2 on insulin with A1c 6.8 Leukocytosis chronic, no fevers, no signs of infection Final Diagnosis Problems Medical Problems: (1) Hypotension Status: Acute Brief Hospital Course Allergies Allergies Coded Allergies Type Severity Reaction Last Updated Verified Sulfa (Sulfonamide Antibiotics) Allergy Severe Swelling 04/24/18 Yes cephalexin Allergy Severe Anaphylaxis 05/22/18 Yes doxycycline Allergy Intermediate 04/24/18 Yes gabapentin Allergy Intermediate Anxiety 06/04/18 Yes hydrocodone Allergy Intermediate Rash 11/04/18 Yes insulin detemir Allergy Intermediate Rash 04/24/18 Yes morphine Allergy Intermediate rash 04/24/18 Yes niacin Allergy Intermediate Rash 04/24/18 Yes oxycodone Allergy Intermediate rash 04/24/18 Yes povidone-iodine Allergy Intermediate It 04/24/18 Yes tramadol Allergy Intermediate Rash 04/24/18 Yes I S O L A T I O N *CONTACT* Allergy Unknown 04/24/18 Yes codeine Adverse Reaction Intermediate Nausea and Vomiting 04/24/18 Yes erythromycin base Adverse Reaction Intermediate Diarrhea 04/24/18 Yes Vital Signs Vital Signs Date Time Temp Pulse Resp B/P (MAP) Pulse Ox O2 Delivery O2 Flow Rate FiO2 11/04/18 09:39 102 16 116/55 (75) 94 Nasal Cannula 4.0 11/04/18 07:59 97.7 97.7 Lab Results Laboratory Tests Test 11/03/18 12:52 11/03/18 13:20 11/03/18 17:11 11/03/18 20:18 Glucose (Fingerstick) 145 mg/dL (70-99) 206 mg/dL (70-99) 266 mg/dL (70-99) White Blood Count 16.0 x10^3/uL (4.0-11.0) Red Blood Count 3.45 x10^6/uL (3.50-5.40) Hemoglobin 10.8 g/dL (12.0-15.5) Hematocrit 33.2 % (36.0-47.0) Mean Corpuscular Volume 96 fL (79-100) Mean Corpuscular Hemoglobin 31 pg (25-35) Mean Corpuscular Hemoglobin Concent 33 g/dL (31-37) Red Cell Distribution Width 19.6 % (11.5-14.5) Platelet Count 197 x10^3/uL (140-400) Neutrophils (%) (Auto) 87 % (31-73) Lymphocytes (%) (Auto) 2 % (24-48) Monocytes (%) (Auto) 10 % (0-9) Eosinophils (%) (Auto) 1 % (0-3) Basophils (%) (Auto) 1 % (0-3) Neutrophils # (Auto) 13.9 x10^3/uL (1.8-7.7) Lymphocytes # (Auto) 0.3 x10^3/uL (1.0-4.8) Monocytes # (Auto) 1.6 x10^3/uL (0.0-1.1) Eosinophils # (Auto) 0.1 x10^3/uL (0.0-0.7) Basophils # (Auto) 0.1 x10^3/uL (0.0-0.2) Segmented Neutrophils % 90 % (35-66) Lymphocytes % 1 % (24-48) Monocytes % 7 % (0-10) Eosinophils % 1 % (0-5) Metamyelocytes % 1 % (0-0) Platelet Estimate Adequate (ADEQUATE) Platelet Clumps, EDTA Present Hypochromasia Slight Anisocytosis Slight Target Cells Occ [place] Cells Occ Schistocytes Occ Prothrombin Time 17.1 SEC (11.7-14.0) Prothromb Time International Ratio 1.4 (0.8-1.1) Activated Partial Thromboplast Time 30 SEC (24-38) Sodium Level 133 mmol/L (136-145) Potassium Level 3.2 mmol/L (3.5-5.1) Chloride Level 94 mmol/L (98-107) Carbon Dioxide Level 20 mmol/L (21-32) Anion Gap 19 (6-14) Blood Urea Nitrogen 62 mg/dL (7-20) Creatinine 6.1 mg/dL (0.6-1.0) Estimated GFR (Cockcroft-Gault) 7.0 BUN/Creatinine Ratio 10 (6-20) Glucose Level 157 mg/dL (70-99) Lactic Acid Level 3.3 mmol/L (0.4-2.0) Calcium Level 8.5 mg/dL (8.5-10.1) Total Bilirubin 1.9 mg/dL (0.2-1.0) Aspartate Amino Transf (AST/SGOT) 33 U/L (15-37) Alanine Aminotransferase (ALT/SGPT) 25 U/L (14-59) Alkaline Phosphatase 275 U/L (46-116) Total Protein 6.7 g/dL (6.4-8.2) Albumin 2.7 g/dL (3.4-5.0) Albumin/Globulin Ratio 0.7 (1.0-1.7) Test 11/04/18 07:32 Glucose (Fingerstick) 256 mg/dL (70-99) Laboratory Tests Test 11/03/18 12:52 11/03/18 13:20 11/03/18 17:11 11/03/18 20:18 Glucose (Fingerstick) 145 mg/dL (70-99) 206 mg/dL (70-99) 266 mg/dL (70-99) White Blood Count 16.0 x10^3/uL (4.0-11.0) Red Blood Count 3.45 x10^6/uL (3.50-5.40) Hemoglobin 10.8 g/dL (12.0-15.5) Hematocrit 33.2 % (36.0-47.0) Mean Corpuscular Volume 96 fL (79-100) Mean Corpuscular Hemoglobin 31 pg (25-35) Mean Corpuscular Hemoglobin Concent 33 g/dL (31-37) Red Cell Distribution Width 19.6 % (11.5-14.5) Platelet Count 197 x10^3/uL (140-400) Neutrophils (%) (Auto) 87 % (31-73) Lymphocytes (%) (Auto) 2 % (24-48) Monocytes (%) (Auto) 10 % (0-9) Eosinophils (%) (Auto) 1 % (0-3) Basophils (%) (Auto) 1 % (0-3) Neutrophils # (Auto) 13.9 x10^3/uL (1.8-7.7) Lymphocytes # (Auto) 0.3 x10^3/uL (1.0-4.8) Monocytes # (Auto) 1.6 x10^3/uL (0.0-1.1) Eosinophils # (Auto) 0.1 x10^3/uL (0.0-0.7) Basophils # (Auto) 0.1 x10^3/uL (0.0-0.2) Segmented Neutrophils % 90 % (35-66) Lymphocytes % 1 % (24-48) Monocytes % 7 % (0-10) Eosinophils % 1 % (0-5) Metamyelocytes % 1 % (0-0) Platelet Estimate Adequate (ADEQUATE) Platelet Clumps, EDTA Present Hypochromasia Slight Anisocytosis Slight Target Cells Occ [place] Cells Occ Schistocytes Occ Prothrombin Time 17.1 SEC (11.7-14.0) Prothromb Time International Ratio 1.4 (0.8-1.1) Activated Partial Thromboplast Time 30 SEC (24-38) Sodium Level 133 mmol/L (136-145) Potassium Level 3.2 mmol/L (3.5-5.1) Chloride Level 94 mmol/L (98-107) Carbon Dioxide Level 20 mmol/L (21-32) Anion Gap 19 (6-14) Blood Urea Nitrogen 62 mg/dL (7-20) Creatinine 6.1 mg/dL (0.6-1.0) Estimated GFR (Cockcroft-Gault) 7.0 BUN/Creatinine Ratio 10 (6-20) Glucose Level 157 mg/dL (70-99) Lactic Acid Level 3.3 mmol/L (0.4-2.0) Calcium Level 8.5 mg/dL (8.5-10.1) Total Bilirubin 1.9 mg/dL (0.2-1.0) Aspartate Amino Transf (AST/SGOT) 33 U/L (15-37) Alanine Aminotransferase (ALT/SGPT) 25 U/L (14-59) Alkaline Phosphatase 275 U/L (46-116) Total Protein 6.7 g/dL (6.4-8.2) Albumin 2.7 g/dL (3.4-5.0) Albumin/Globulin Ratio 0.7 (1.0-1.7) Test 11/04/18 07:32 Glucose (Fingerstick) 256 mg/dL (70-99) Brief Hospital Course Ms. Bravo is a 63 old white female readmission or frequent flyer. She came in here for massive ascites and we drained 6 L. She also has pleural effusion left recurrent, and has an indwelling Pleurx catheter and we drained 900 mL. She will go home today after dialysis session. She already has all her scripts, she is noncompliant with HD and missed 2 days worth. She is a full code. She is off hospice now She does not want to go back to [facility], had a horrible experience -she will go back with the son, current home health Discussed with RN patient and social work dc < 30 mins Discharge Information Condition at Discharge: Improved, Stable Disposition/Orders: D/C to Home w/ HH Scheduled Calcium Acetate (Calcium Acetate) 667 Mg Tablet, 667 MG PO TIDWMEALS for DIALYSIS PATIENTS, (Reported) Entered as Reported by: VIKAS LEYVA on 07/03/18912 Last Action: Converted on 11/04/18934 by ABE RIVER Calcium Carbonate/Vitamin D3 (Calcium + Vitamin D Tablet) 1 Each Tablet, 1 EACH PO DAILY for supplement, (Reported) Entered as Reported by: ARA WIN on 06/02/13 1013 Last Action: Converted on 11/04/18934 by ABE RIVER Clotrimazole (Clotrimazole) 10 Mg Vielka, 10 MG MM BID for THRUSH for 10 Days, #20 Prescribed by: CHUCK RIVERA MD on 10/21/18 1135 Last Action: Continued on 11/04/18934 by ABE RIVER Fluticasone Propionate (Flovent 110MCG Hfa) 12 Gm Aer.w.adap, 1 PUFF IH DAILY for copd, (Reported) Entered as Reported by: ARA WIN on 06/02/13 1013 Last Action: Converted on 11/04/18934 by ABE RIVER Folic Acid/Vitamin B Comp W-C (Dialyvite Tablet) 1 Each Tablet, 1 EACH PO QMWF for after dialysis on dialysis day, (Reported) Entered as Reported by: VIKAS LEYVA on 07/03/18912 Last Action: Converted on 11/04/18934 by ABE RIVER Insulin Aspart (Novolog Flexpen) 100 Unit/1 Ml Insuln.pen, 0 SQ TIDAC for DM, (Reported) 0-149: 0 units 150-199: 2 units 200-249: 4 units 250-299: 6 units 300-349: 8 units 350-399: 10 units >400: Call Entered as Reported by: ARA WIN on 06/02/13 1013 Last Action: HELD on 11/04/18934 by ABE RIVER Insulin Glargine,Hum.rec.anlog (Lantus Solostar) 100 Unit/1 Ml Insuln.pen, 40 UNITS SQ DAILY08 for DM, (Reported) SSI Entered as Reported by: STEPHANIE CHAPMAN on 06/10/13 1021 Last Action: Continued on 11/04/18934 by ABE RIVER Iron,Fum&Ps/Fa/Vit B&C#18/L.ca (Fusion Plus Capsule) 1 Each Capsule, 1 EACH PO DAILY for esrd, (Reported) Entered as Reported by: LORETTA SILVERIO on 05/09/17 0740 Last Action: Converted on 11/04/18934 by ABE RIVER Lactobacillus Rhamnosus Gg (Culturelle) 1 Each Cap.sprink, 1 CAP PO BID for SUPPLEMENT for 14 Days, #28 Prescribed by: CHUCK RIVERA MD on 10/29/18 1410 Last Action: Continued on 11/04/18934 by ABE RIVER Lactulose (Lactulose) 20 Gm/30 Ml Solution, 20 GM PO TID, (Reported) Entered as Reported by: GREY DUBOIS on 08/03/15 0729 Last Action: Continued on 11/04/18934 by ABE RIVER Levothyroxine Sodium (Synthroid) 25 Mcg Tablet, 300 MCG PO DAILY, (Reported) Entered as Reported by: ARA WIN on 06/02/13 1013 Last Action: Converted on 11/04/18934 by ABE RIVER Midodrine Hcl (Midodrine Hcl) 5 Mg Tablet, 10 MG PO [id number] for hypotension for 14 Days, #84 Prescribed by: TEDDY PERALES MD on 09/10/18 0951 Last Action: Converted on 11/04/18934 by ABE RIVER Nystatin (Nystatin) 15 Gm Oint...g., 1 RENATA TP BID for RASH for 30 Days, #60 Prescribed by: CHUCK RIVERA MD on 10/21/181134 Last Action: Continued on 11/04/18934 by ABE RIVER Omeprazole (Omeprazole) 40 Mg Capsule.dr, 1 CAP PO DAILY for gerd, #30 Ref 3 (Reported) Entered as Reported by: Rehana Joshi on 05/01/18899 Last Action: Converted on 11/04/18934 by ABE RIVER Rifaximin (Xifaxan) 550 Mg Tablet, 1 TAB PO BID, #28 (Reported) Entered as Reported by: LORETTA SILVERIO on 02/07/18904 Last Action: HELD on 11/04/18934 by ABE RIVER Scheduled PRN Albuterol Sulfate (Albuterol Sulfate Conc Neb Soln) 2.5 Mg/0.5 Ml Vial.neb, 2.5 MG NEB Q6HRS PRN for SHORTNESS OF BREATH, Ref 0 (Reported) Entered as Reported by: GREY DUBOIS on 08/03/15 07 Last Action: HELD on 11/04/18934 by ABE RIVER Albuterol Sulfate (Proair Hfa) 8.5 Gm Hfa.aer.ad, 2.5 MG NEB PRN Q6HRS PRN for SHORTNESS OF BREATH for 30 Days, #1 Prescribed by: CHUCK RIVERA MD on 10/21/181134 Last Action: Continued on 11/04/18934 by ABE RIVER Benzonatate (Benzonatate) 100 Mg Capsule, 100 MG PO PRN Q6HRS PRN for cough for 10 Days, #60 Prescribed by: CHUCK RIVERA MD on 10/21/181134 Last Action: Converted on 11/04/18934 by ABE RIVER Diphenhydramine Hcl (Benadryl) 25 Mg Capsule, 25 MG PO PRN Q6HRS PRN for ITCHING, (Reported) Entered as Reported by: SUMAYA PAYNE on 08/12/18 0143 Last Action: Continued on 11/04/18934 by ABE RIVER Phenyleph/Mineral Oil/Petrolat (Major-Prep Hemorrhoidal Oint) 57 Gm Oint.appl, 1 RENATA RC PRN QID PRN for RECTAL PAIN for 14 Days, #60 Prescribed by: CHUCK RIVERA MD on 10/21/18 1135 Last Action: Continued on 11/04/18 0935 by ABE RIVER Discontinued Medications Hydrocodone Bit/Acetaminophen (Hydrocodone-Apap 5-325 ) 1 Tab Tablet, 1 TAB PO PRN Q6HRS PRN for PAIN for 30 Days, #60 Discontinued Reason: ALLERGY Prescribed by: CHUCK RIVERA MD on 10/21/181134 Last Action: Discontinued on 11/04/18 1045 by YANIRA LIANG [facility] Levofloxacin (Levaquin) 500 Mg Tablet, 0.5 TAB PO DAILY for pneumonia, #7 Prescribed by: ABE RIVER on 10/01/18 0959 Midodrine Hcl (Midodrine Hcl) 5 Mg Tablet, 5 MG PO [id number] for other, (Reported) Entered as Reported by: JACKI BRAVO on 10/14/18 1623 ABE RIVER MD Nov 04, 2018 11:25
[2018-11-04] MEDS ORDERED: CALCIUM ACETATE 667 MG CAPSULE PO SCH (12:00)
--- NOTE | 2018-11-04 12:20 | NUR ---
ALEXANDER following pt. ALEXANDER faxed resumption orders to [facility]. Pt demanding to leave [facility] soon at this time and ALEXANDER arranged transportation via [employer] and they are on the way to pick remover pt. ALEXANDER left a voice mail to pt's daughter, Marilin and Son, Tre regarding dc plan. Discussed with RN.
[2018-11-04] MEDS ORDERED: HEPARIN PF 500 UNIT/5 ML DISP.SYRIN. IV ONE (12:30)
--- NOTE | 2018-11-04 12:39 | PDOC ---
Objective: Objective: Reviewed chart and d/w several staff members - frequent use of call light w/ inappropriate requests, improper behavior toward staff w/ cursing, refusing labs/telemetry, etc. D/w nurse - plans to DC home and for dialysis tomorrow. Full code, home health. Vital Signs: Vital Signs Date Time Temp Pulse Resp B/P (MAP) Pulse Ox O2 Delivery O2 Flow Rate FiO2 11/04/18 11:21 98.1 99 20 153/61 (91) 96 Nasal Cannula 3.0 98.1 Labs: Laboratory Tests Test 11/03/18 12:52 11/03/18 17:11 11/03/18 20:18 11/04/18 07:32 Glucose (Fingerstick) 145 mg/dL (70-99) 206 mg/dL (70-99) 266 mg/dL (70-99) 256 mg/dL (70-99) Imaging: Paracentesis 11/04 pending PE: GEN: police superintendent present w/ stretcher to transport her home A/P: ESLD/ascites, ESRD, pleural effusion -- Discharge plans noted. JENNIE ABRAMS Nov 04, 2018 12:39
--- NOTE | 2018-11-04 12:49 | RAD ---
Ultrasound-guided paracentesis 11/04/2018 12:44 PM Procedure: The risks and benefits of the procedure were discussed the patient. Informed consent was obtained. A timeout procedure was performed. Sonographic evaluation of the abdomen was performed demonstrating ascites . The left lower quadrant was prepped and draped using maximum sterile barrier technique. 1% lidocaine without epinephrine was administered for local anesthesia. Real-time ultrasonographic guidance was used in passing a 5 Maur[place] Yueh catheter into the fluid collection. This is exchanged for an 8 [place] drainage catheter. 6.5 L serous ascites was removed. The catheter was removed and pressure held to achieve hemostasis. A sterile dressing was applied. Also note that the patient's tunneled thoracostomy tube was accessed and approximately 1 L of serous pleural fluid was removed. Impression: Successful ultrasound-guided paracentesis
--- NOTE | 2018-11-04 12:58 | NUR ---
pt is discharged home with home health at 1238 via EMS and VENANCIO Harvey pushing wheelchair with belongings. pt is in stable condition. pt has all belongings with her. pt received discharge instructions and stated she had no further questions for me. Daughter Marilin was notified of pt discharge and is meeting EMS at pt house. pt right chest port was D/C'd and flushed with heparin before removal. pt dialysis catheter is CDI. all of pt dressings are CDI. pt brief is clean and calazime ointment was placed on her bottom. pt is 95% on RA so no need for oxygen after thoracentesis procedure was complete. pt states she will go to dialysis tomorrow for her scheduled appointment. pt has [facility] per daughter and they take care of pt dressings and her pleurex drain. pt refused to go to any skilled facility, rehab, or to have any more home health come in.
[2018-11-04] MEDS ORDERED: MIDODRINE 5 MG TABLET PO SCH (13:00)
[2018-11-04] MEDS ORDERED: BENZONATATE 100 MG CAPSULE. PO PRN (14:00)
[2018-11-05] MEDS ORDERED: NON FORMULARY ITEM (Omeprazole 1 CAP) PO SCH (09:00)
[2018-11-05] MEDS ORDERED: FOLIC/VIT B COMP W-C (RENAL) TABLET. PO SCH (16:00)
== END 2018-11-04 12:38 | disposition home health service (06) | DRG 432 ==
LOC: ER 12:24 → 6 SOUTH 13:08
PROVIDERS: ADMIT Internal Medicine; ATTEND Internal Medicine
PROC: 0W9G3ZZ Drainage of Peritoneal Cavity, Percutaneous Approach (ICD-10-PCS; principal; 2018-11-04)
PROC: 5A1D70Z Performance of Urinary Filtration, Intermittent, Less than 6 Hours Per Day (ICD-10-PCS; 2018-11-04)
DX: K74.60 Unspecified cirrhosis of liver (principal); N18.6 End stage renal disease; R53.2 Functional quadriplegia; R18.8 Other ascites; D68.9 Coagulation defect, unspecified; I12.0 Hypertensive chronic kidney disease with stage 5 chronic kidney disease or end stage renal disease; E87.2 Acidosis; J90 Pleural effusion, not elsewhere classified; K72.90 Hepatic failure, unspecified without coma; I95.9 Hypotension, unspecified; D72.829 Elevated white blood cell count, unspecified; M19.90 Unspecified osteoarthritis, unspecified site; E11.40 Type 2 diabetes mellitus with diabetic neuropathy, unspecified; R09.02 Hypoxemia; F32.9 Major depressive disorder, single episode, unspecified; F41.9 Anxiety disorder, unspecified; E78.5 Hyperlipidemia, unspecified; E11.22 Type 2 diabetes mellitus with diabetic chronic kidney disease; K21.9 Gastro-esophageal reflux disease without esophagitis; E03.9 Hypothyroidism, unspecified; D63.1 Anemia in chronic kidney disease; B37.9 Candidiasis, unspecified; J44.9 Chronic obstructive pulmonary disease, unspecified; K75.81 Nonalcoholic steatohepatitis (NASH); Z91.15 Patient's noncompliance with renal dialysis; Z79.4 Long term (current) use of insulin; Z79.51 Long term (current) use of inhaled steroids; Z79.890 Hormone replacement therapy; Z90.710 Acquired absence of both cervix and uterus; Z88.5 Allergy status to narcotic agent; Z88.8 Allergy status to other drugs, medicaments and biological substances; Z88.1 Allergy status to other antibiotic agents; Z91.041 Radiographic dye allergy status; Z99.2 Dependence on renal dialysis; Z98.49 Cataract extraction status, unspecified eye; Z82.49 Family history of ischemic heart disease and other diseases of the circulatory system
CPT/HCPCS: 32554; 36415; 49083; 71045; 80053; 82962; 83605; 85007; 85025; 85610; 85730; 87040; 87071; 87075; 93005; A4215; C1729; C1894; J1815; J2543; P9046; 99285-25

== ENCOUNTER 2018-11-08 10:32 | Inpatient (IN) | payer MEDICAID ==
[2018-11-08] VITALS (16 sets, daily range): BP systolic 53–117; BP diastolic 33–52
[~2018-11-08] VITALS: Ht 160 cm; Wt 69.9 kg
[2018-11-08] MEDS ORDERED: 0.9 % SOD CHL for STERILE FIELD 10 ML DISP.SYRIN. ONE (11:04)
--- NOTE | 2018-11-08 11:08 | PHYS DOC ---
Past Medical History Past Medical History: COPD, Diabetes-Type II, Liver Disease, Renal Disease, Renal Failure, Other Additional Past Medical Histor: neuropathy,gallstones,non etoh cirossis Past Surgical History: Hysterectomy, Other Additional Past Surgical Histo: esophogeal banding after esoph. varacies. PORT PLACEMENT R CHEST Alcohol Use: None Drug Use: None Adult General Chief Complaint Chief Complaint: ABDOMINAL PAIN HPI HPI 63-year-old female presents to ER via EMS for complaints of upper abdominal pain which she reports started last night. She reports intermittent nausea denies any vomiting or diarrhea episodes. Patient states she was supposed to have dialysis this morning but due to her abdominal pain missed her appointment. She denies fever, chest pain, or shortness of air. Patient reports she had some hard stools denies any dark tarry or bloody stools. She denies pain radiates into her back. Review of Systems Review of Systems Constitutional: Denies fever or chills. Reports generalized fatigue Eyes: Denies change in visual acuity, redness, or eye pain [] HENT: Denies nasal congestion or sore throat [] Respiratory: Denies cough or shortness of breath [] Cardiovascular: Denies chest pain or palpitations GI: Denies vomiting, bloody stools or diarrhea. Reports upper abdominal pain radiating across from side to side denying radiation into her back or chest. Reports intermittent nausea. Reports had bowel movement this morning was hard stools : Denies dysuria or hematuria [] Musculoskeletal: Denies back pain or joint pain [] Integument: Denies rash or skin lesions [] Neurologic: Denies headache, focal weakness or sensory changes [] Endocrine: Denies polyuria or polydipsia [] All other systems were reviewed and found to be within normal limits, except as documented in this note. Current Medications Current Medications Current Medications Medications (Trade) Dose Ordered Sig/Emanuel Start Time Stop Time Status Last Admin Dose Admin Fentanyl Citrate (Fentanyl 2ml Vial) 25 mcg 1X ONCE 11/08/18 13:45 11/08/18 13:46 DC 11/08/18 14:12 25 MCG Ondansetron HCl (Zofran) 4 mg 1X ONCE 11/08/18 11:45 11/08/18 11:46 DC 11/08/18 12:56 4 MG Sodium Chloride 500 ml @ 500 mls/hr 1X ONCE 11/08/18 13:15 11/08/18 14:14 DC 11/08/18 13:15 500 MLS/HR Sodium Chloride (NORMAL SALINE FLUSH for STERILE FIELD) 10 ml STK-MED ONCE 11/08/18 11:04 11/08/18 11:05 DC Allergies Allergies Allergies Coded Allergies Type Severity Reaction Last Updated Verified Sulfa (Sulfonamide Antibiotics) Allergy Severe Swelling 04/24/18 Yes cephalexin Allergy Severe Anaphylaxis 05/22/18 Yes doxycycline Allergy Intermediate 04/24/18 Yes gabapentin Allergy Intermediate Anxiety 06/04/18 Yes hydrocodone Allergy Intermediate Rash 11/04/18 Yes insulin detemir Allergy Intermediate Rash 04/24/18 Yes morphine Allergy Intermediate rash 04/24/18 Yes niacin Allergy Intermediate Rash 04/24/18 Yes oxycodone Allergy Intermediate rash 04/24/18 Yes povidone-iodine Allergy Intermediate It 04/24/18 Yes tramadol Allergy Intermediate Rash 04/24/18 Yes I S O L A T I O N *CONTACT* Allergy Unknown 04/24/18 Yes codeine Adverse Reaction Intermediate Nausea and Vomiting 04/24/18 Yes erythromycin base Adverse Reaction Intermediate Diarrhea 04/24/18 Yes Physical Exam Physical Exam Constitutional: Well developed, well nourished, mild distress, non-toxic appearance. Fatigued appearance HENT: Normocephalic, atraumatic, oropharynx moist, nose normal. [] Eyes: Pupils equal, conjunctiva normal, no discharge. [] Neck: Normal range of motion, no tenderness, supple, no stridor. [] Cardiovascular: Heart rate regular rhythm, no murmur [] Lungs & Thorax: Bilateral breath sounds clear to auscultation- resp. equal/nonlabored, Abdomen: Bowel sounds normal, soft- no rigidity, diffuse tenderness across upper abdomen with no focal area, no masses, no pulsatile masses. [] Skin: Warm, dry, no erythema, no rash. [] Back: No tenderness, no CVA tenderness. [] Extremities: No tenderness, no cyanosis, no clubbing, ROM intact, no edema. [] Neurologic: Alert and oriented X 3, normal motor function, normal sensory function, no focal deficits noted. [] Psychologic: Affect normal, judgement normal, mood normal. [] Current Patient Data Vital Signs Vital Signs Date Time Temp Pulse Resp B/P (MAP) Pulse Ox O2 Delivery O2 Flow Rate FiO2 11/08/18 14:12 18 11/08/18 14:05 84 93/50 (64) 96 Nasal Cannula 2.0 11/08/18 10:35 97.6 97.6 Lab Values Laboratory Tests Test 11/08/18 12:15 White Blood Count 16.1 x10^3/uL (4.0-11.0) H Red Blood Count 3.57 x10^6/uL (3.50-5.40) Hemoglobin 11.3 g/dL (12.0-15.5) L Hematocrit 34.7 % (36.0-47.0) L Mean Corpuscular Volume 97 fL (79-100) Mean Corpuscular Hemoglobin 32 pg (25-35) Mean Corpuscular Hemoglobin Concent 33 g/dL (31-37) Red Cell Distribution Width 19.5 % (11.5-14.5) H Platelet Count 77 x10^3/uL (140-400) L Neutrophils (%) (Auto) 90 % (31-73) H Lymphocytes (%) (Auto) 2 % (24-48) L Monocytes (%) (Auto) 7 % (0-9) Eosinophils (%) (Auto) 1 % (0-3) Basophils (%) (Auto) 0 % (0-3) Neutrophils # (Auto) 14.6 x10^3/uL (1.8-7.7) H Lymphocytes # (Auto) 0.3 x10^3/uL (1.0-4.8) L Monocytes # (Auto) 1.1 x10^3/uL (0.0-1.1) Eosinophils # (Auto) 0.1 x10^3/uL (0.0-0.7) Basophils # (Auto) 0.0 x10^3/uL (0.0-0.2) Segmented Neutrophils % 92 % (35-66) H Band Neutrophils % 2 % (0-9) Lymphocytes % 5 % (24-48) L Monocytes % 1 % (0-10) Platelet Estimate Decreased (ADEQUATE) Polychromasia Slight Anisocytosis Slight Sodium Level 131 mmol/L (136-145) L Potassium Level 3.1 mmol/L (3.5-5.1) L Chloride Level 95 mmol/L (98-107) L Carbon Dioxide Level 17 mmol/L (21-32) L Anion Gap 19 (6-14) H Blood Urea Nitrogen 70 mg/dL (7-20) H Creatinine 7.3 mg/dL (0.6-1.0) H Estimated GFR (Cockcroft-Gault) 5.7 BUN/Creatinine Ratio 10 (6-20) Glucose Level 154 mg/dL (70-99) H Lactic Acid Level 3.9 mmol/L (0.4-2.0) H Calcium Level 9.1 mg/dL (8.5-10.1) Magnesium Level 2.4 mg/dL (1.8-2.4) Total Bilirubin 1.9 mg/dL (0.2-1.0) H Aspartate Amino Transferase (AST) 38 U/L (15-37) H Alanine Aminotransferase (ALT) 28 U/L (14-59) Alkaline Phosphatase 290 U/L (46-116) H Troponin I Quantitative 0.075 ng/mL (0.000-0.055) NY-Ako-B-Type Natriuretic Peptide 6077 pg/mL (0-124) H Total Protein 6.4 g/dL (6.4-8.2) Albumin 2.3 g/dL (3.4-5.0) L Albumin/Globulin Ratio 0.6 (1.0-1.7) L Lipase 9171 U/L (73-393) H Laboratory Tests 11/08/18 12:15 Laboratory Tests 11/08/18 12:15 EKG EKG EKG obtained 11/08/18 at [address] Segal Sinus rhythm PACs Prolonged QT Rate 97 No STEMI Radiology/Procedures Radiology/Procedures PROCEDURE: CHEST AP ONLY Indication: Upper abdominal pain TECHNIQUE: Portable upright AP chest x-ray COMPARISON: Exam from 11/03/2018. FINDINGS: Patient is rotated to the left side limiting optimal location. Stable position of right chest wall Chemo-Port, left chest wall dialysis catheter and pleural drain on the left side. Large stable pleural effusion noted on the left side. Heart is normal in size. Diffuse interstitial opacities bilaterally. No pneumothorax. Visualized bony thorax is within normal limits. IMPRESSION: 1. Stable large left pleural effusion. Underlying left lung pneumonia not ruled out. 2. Diffuse interstitial opacities suggests interstitial pulmonary edema. Electronically signed by: Ariel Patterson DO (11/08/2018 12:17 PM) [facility] [place] DICTATED and SIGNED BY: ARIEL PATTERSON DO DATE: 11/08/18 1217 PROCEDURE: CT ABDOMEN PELVIS WO CONTRAST PQRS Compliance statement: One or more of the following individualized dose reduction techniques were utilized for this examination: 1. Automated exposure control. 2. Adjustment of the mA and/or kV according to patient size. 3. Use of iterative reconstruction technique. Indication:Upper abdominal pain. Elevated lipase. TECHNIQUE: CT abdomen and pelvis without IV contrast with multiplanar reformats. COMPARISON: None FINDINGS: Limited evaluation of solid abdominal and pelvic organs due to lack of IV contrast. Heart is normal in size. Large left and small right pleural effusion noted. Consolidation is seen in the left lung and right lung base. Dialysis catheter seen in the SVC. Nodular contour of the liver compatible with cirrhosis. Spleen is nonenlarged. Numerous gallstones noted. Noncontrast appearance of the pancreas is within normal limits. Left adrenal gland within normal limits. 3.2 x 1.9 cm oval-shaped nodule in the right adrenal gland. No nephrolithiasis or hydronephrosis. Small volume ascites. Numerous perisplenic varices are seen. No bowel obstruction. Small hiatal hernia. Status post hysterectomy. Urinary bladder demonstrates no radiopaque stone. No pneumoperitoneum. No suspicious bony lesion. IMPRESSION: Limited evaluation of solid abdominal and pelvic organs due to lack of IV contrast. 1. Cirrhosis with evidence of portal venous hypertension as suggested by small ascites and multiple collaterals. 2. No bowel obstruction. 3. Cholelithiasis without imaging evidence of acute cholecystitis. If concern persists further evaluation with HIDA scan recommended. 4. Large left and small right pleural effusion with adjacent consolidation of the lung parenchyma which may be from atelectasis although underlying pneumonia is not ruled out. 5. Right abdomen gland nodule, atypical for classic adenoma. This may represent an atypical adenoma or metastasis if there is history of malignancy. Nonemergent MRI of the abdomen with IV contrast is recommended. Electronically signed by: Ariel Patterson DO (11/08/2018 3:00 PM) [facility] [place] DICTATED and SIGNED BY: ARIEL PATTERSON DO DATE: 11/08/18 1500 Course & Med Decision Making Course & Med Decision Making Pertinent Labs and Imaging studies reviewed. (See chart for details) Patient is being admitted to the hospitalist for further care and monitoring. On labs patient's lipase was elevated at 9171 with labs on 10/14/18 was 244. Patient's troponin was elevated at 0.075 which is up from results of her last records. Patient did miss her dialysis this morning. She has been denying any chest pain or palpitations. She denies shortness of air and her EKG with no ischemic changes showing sinus rhythm with PACs at a rate of 97. With patient's elevated lipase CT abdomen and pelvis is being obtained. Patient has allergy to iodine and is uncertain of her reaction so will hold off on IV contrast. 1300: Spoke with Dr. Infante, hospitalist and discussed pt's case and admit plan. Pt's repeat remains hypotensive but has improved some to 84 systolic with IV fluids infusing. Only providing 500 mL as patient missed her dialysis. Will admit pt to ICU for further care/monitoring. 1625: Patient's BP is 77/43 HR 94. Patient's case and plan of care was discussed with Dr. Segal. Order placed for IV Levophed. Patient is having blood cultures obtained as she is been started on IV Zosyn and vancomycin as she has flagged for sepsis. Chest xray with report that lt lung pneumonia couldn't be r/o. 1705: Spoke with Dr. Motta, bone glue maker and discussed pt's case and plan of care. He is not wanting to have dialysis done on patient and he will reevaluate tomorrow as pt's K+ is 3.1. BNP is pending. Dragon Disclaimer Dragon Disclaimer This electronic medical record was generated, in whole or in part, using a voice recognition dictation system. Departure Departure Impression: Primary Impression: Acute pancreatitis Additional Impressions: Hypotension Elevated troponin Disposition: ADMITTED INPATIENT Admitting Physician: HIMS Condition: GUARDED Referrals: VIANEY VU DO (PCP) Problem Qualifiers JOHN CASAS APRN Nov 08, 2018 11:08
[2018-11-08] MEDS ORDERED: ONDANSETRON PF 4 MG/2 ML VIAL. IV ONE (11:45)
--- NOTE | 2018-11-08 12:20 | RAD ---
Indication: Upper abdominal pain TECHNIQUE: Portable upright AP chest x-ray COMPARISON: Exam from 11/03/2018. FINDINGS: Patient is rotated to the left side limiting optimal location. Stable position of right chest wall Chemo-Port, left chest wall dialysis catheter and pleural drain on the left side. Large stable pleural effusion noted on the left side. Heart is normal in size. Diffuse interstitial opacities bilaterally. No pneumothorax. Visualized bony thorax is within normal limits. IMPRESSION: 1. Stable large left pleural effusion. Underlying left lung pneumonia not ruled out. 2. Diffuse interstitial opacities suggests interstitial pulmonary edema. Electronically signed by: Ariel Patterson DO (11/08/2018 12:17 PM) [facility]
[2018-11-08 12:26] LABS: BASO % 0 % (0-3); EOS # 0.1 x10^3/uL (0.0-0.7); EOS % 1 % (0-3); HEMATOCRIT 34.7 % (36.0-47.0); HEMOGLOBIN 11.3 g/dL (12.0-15.5); LYMPH # 0.3 x10^3/uL (1.0-4.8); LYMPH % 2 % (24-48); MEAN CORPUSCULAR HEMOGLOBIN 32 pg (25-35); MEAN CORPUSCULAR HGB CONC 33 g/dL (31-37); MEAN CORPUSCULAR VOLUME 97 fL (79-100); MONO # 1.1 x10^3/uL (0.0-1.1); MONO % 7 % (0-9); NEUT # 14.6 x10^3/uL (1.8-7.7); NEUT % 90 % (31-73); PLATELET COUNT 77 x10^3/uL (140-400); RED BLOOD COUNT 3.57 x10^6/uL (3.50-5.40); RED CELL DISTRIBUTION WIDTH 19.5 % (11.5-14.5); WHITE BLOOD COUNT 16.1 x10^3/uL (4.0-11.0)
[2018-11-08 12:32] LABS: CALCIUM 9.1 mg/dL (8.5-10.1); CREATININE 7.3 mg/dL (0.6-1.0); GFR 5.7; POTASSIUM 3.1 mmol/L (3.5-5.1)
[2018-11-08 12:45] LABS: ALBUMIN 2.3 g/dL (3.4-5.0); ALBUMIN/GLOBULIN RATIO 0.6 (1.0-1.7); MAGNESIUM 2.4 mg/dL (1.8-2.4); TOTAL BILIRUBIN 1.9 mg/dL (0.2-1.0); TOTAL PROTEIN 6.4 g/dL (6.4-8.2)
[2018-11-08 12:58] LABS: % BANDS 2 % (0-9); % LYMPHS 5 % (24-48); % MONOS 1 % (0-10); % SEGS 92 % (35-66); ANISOCYTOSIS SLIGHT; PLT ESTIMATE DECREASED (ADEQUATE); POLYCHROMASIA SLIGHT
--- NOTE | 2018-11-08 13:07 | PDOC1 ---
History and Physical Date of Admission Date of Admission DATE: 11/08/18 TIME: 13:07 Identification/Chief Complaint Chief Complaint seen in er , 63-year-old female presents to ER via EMS for complaints of upper abdominal pain which she reports started last night. She reports intermittent nausea denies any vomiting or diarrhea episodes. Patient states she was supposed to have dialysis this morning but due to her abdominal pain missed her appointment.has long hx noncompliance with dialysis She denies fever, chest pain, or shortness of air. Patient reports she had some hard stools denies any dark tarry or bloody stools. She denies pain radiates into her back. Past Medical History Past Medical History Past Medical History Past Medical History Past Medical History: COPD, Diabetes-Type II, Liver Disease, Renal Disease, Renal Failure, Other Additional Past Medical Histor: neuropathy,gallstones,non etoh cirossis Past Surgical History: Hysterectomy, Other Additional Past Surgical Histo: esophogeal banding after esoph. varacies. PORT PLACEMENT R CHEST Alcohol Use: None Drug Use: None Cardiovascular: HTN, Hyperlipidemia Pulmonary: Asthma, COPD CENTRAL NERVOUS SYSTEM: Other GI: Constipation, GERD, GI bleed, Gastritis, Hemorrhoids, Other Heme/Onc: Anemia NOS Hepatobiliary: Cirrhosis Psych: Anxiety, Depression Musculoskeletal: Osteoarthritis Renal/: Acute renal failure, Chronic renal failure, UTI, Urinary Incontinence Endocrine: Diabetes, Hypothyroidism, Hyperparathyroidism Past Surgical History Past Surgical History: Cataract Removal, Tonsillectomy, Hysterectomy, Other Family History Family History: High Cholestrol, Hypertension, Family History Unknown Social History Smoke: No ALCOHOL: none Drugs: None Current Medications Current Medications Current Medications Sodium Chloride (NORMAL SALINE FLUSH for STERILE FIELD) 10 ml [facility]ware-MED ONCE .ROUT E ; Start 11/08/18 at 11:04; Stop 11/08/18 at 11:05; Status DC Ondansetron HCl (Zofran) 4 mg 1X ONCE IV Last administered on 11/08/18at 12:56; Start 11/08/18 at 11:45; Stop 11/08/18 at 11:46; Status DC Sodium Chloride 500 ml @ 500 mls/hr 1X ONCE IV ; Start 11/08/18 at 13:15; Stop 11/08/18 at 14:14; Status UNV Active Scripts Active Culturelle (Lactobacillus Rhamnosus Gg) 1 Each Cap.sprink 1 Cap PO BID 14 Days Major-Prep Hemorrhoidal Oint (Phenyleph/Mineral Oil/Petrolat) 57 Gm Oint.appl 1 Efe RC PRN QID PRN 14 Days Nystatin 15 Gm Oint...g. 1 Efe TP BID 30 Days Clotrimazole 10 Mg Vielka 10 Mg MM BID 10 Days Benzonatate 100 Mg Capsule 100 Mg PO PRN Q6HRS PRN 10 Days Proair Hfa (Albuterol Sulfate) 8.5 Gm Hfa.aer.ad 2.5 Mg NEB PRN Q6HRS PRN 30 Days Midodrine Hcl 5 Mg Tablet 10 Mg PO [id number] 14 Days Reported Benadryl (Diphenhydramine Hcl) 25 Mg Capsule 25 Mg PO PRN Q6HRS PRN Calcium Acetate 667 Mg Tablet 667 Mg PO TIDWMEALS Dialyvite Tablet (Folic Acid/Vitamin B Comp W-C) 1 Each Tablet 1 Each PO QMWF Omeprazole 40 Mg Capsule.dr 1 Cap PO DAILY Xifaxan (Rifaximin) 550 Mg Tablet 1 Tab PO BID Fusion Plus Capsule (Iron,Fum&Ps/Fa/Vit B&C#18/L.ca) 1 Each Capsule 1 Each PO DAILY Albuterol Sulfate Conc Neb Soln (Albuterol Sulfate) 2.5 Mg/0.5 Ml Vial.neb 2.5 Mg NEB Q6HRS PRN Lactulose 20 Gm/30 Ml Solution 20 Gm PO TID Lantus Solostar (Insulin Glargine,Hum.rec.anlog) 100 Unit/1 Ml Insuln.pen 40 Units SQ DAILY08 SSI Calcium + Vitamin D Tablet (Calcium Carbonate/Vitamin D3) 1 Each Tablet 1 Each PO DAILY Novolog Flexpen (Insulin Aspart) 100 Unit/1 Ml Insuln.pen 0 SQ TIDAC 0-149: 0 units 150-199: 2 units 200-249: 4 units 250-299: 6 units 300-349: 8 units 350-399: 10 units >400: Call Synthroid (Levothyroxine Sodium) 25 Mcg Tablet 300 Mcg PO DAILY Flovent 110MCG Hfa (Fluticasone Propionate) 12 Gm Aer.w.adap 1 Puff IH DAILY Allergies Allergies: Coded Allergies: Sulfa (Sulfonamide Antibiotics) (Verified Allergy, Severe, Swelling, 04/24/18) tongue swelling, rash cephalexin (Verified Allergy, Severe, Anaphylaxis, 05/22/18) TOLERATES AMOX, ZOSYN doxycycline (Verified Allergy, Intermediate, 04/24/18) gabapentin (Verified Allergy, Intermediate, Anxiety, 06/04/18) pt states gabapentin caused her to be admitted to [facility] where she presented "because I was out of my mind from that drug." hydrocodone (Verified Allergy, Intermediate, Rash, 11/04/18) REFUSES LORTAB,ETC insulin detemir (Verified Allergy, Intermediate, Rash, 04/24/18) morphine (Verified Allergy, Intermediate, rash, 04/24/18) niacin (Verified Allergy, Intermediate, Rash, 04/24/18) edema oxycodone (Verified Allergy, Intermediate, rash, 04/24/18) povidone-iodine (Verified Allergy, Intermediate, It, 04/24/18) tramadol (Verified Allergy, Intermediate, Rash, 04/24/18) I S O L A T I O N *CONTACT* (Verified Allergy, Unknown, 04/24/18) VRE - urine 12/20/17 codeine (Verified Adverse Reaction, Intermediate, Nausea and Vomiting, 04/24/18) erythromycin base (Verified Adverse Reaction, Intermediate, Diarrhea, 04/24/18) ROS Review of System Review of Systems Review of Systems Constitutional: Denies fever or chills. Reports generalized fatigue Eyes: Denies change in visual acuity, redness, or eye pain [] HENT: Denies nasal congestion or sore throat [] Respiratory: Denies cough or shortness of breath [] Cardiovascular: Denies chest pain or palpitations GI: Denies vomiting, bloody stools or diarrhea. Reports upper abdominal pain radiating across from side to side denying radiation into her back or chest. Reports intermittent nausea. Reports had bowel movement this morning was hard stools : Denies dysuria or hematuria [] Musculoskeletal: Denies back pain or joint pain [] Integument: Denies rash or skin lesions [] Neurologic: Denies headache, focal weakness or sensory changes [] Endocrine: Denies polyuria or polydipsia [] 14 pt systems were reviewed and found to be within normal limits, except as documented Physical Exam Physical Exam Physical Exam Physical Exam Constitutional: Well developed, well nourished, mild -mod acute distress, non- toxic appearance. Fatigued appearance HENT: Normocephalic, atraumatic, oropharynx moist, nose normal. [] Eyes: Pupils equal, conjunctiva normal, no discharge. [] Neck: Normal range of motion, no tenderness, supple, no stridor. [] Cardiovascular:Heart rate regular rhythm, no murmur [] Lungs & Thorax: Bilateral breath sounds clear to auscultation dec right base - resp. equal/nonlabored, Abdomen: Bowel sounds normal, soft- no rigidity, diffuse tenderness across upper abdomen with no focal area, no masses, no pulsatile masses. [] Skin: Warm, dry, no erythema, no rash. [] Back: No tenderness, no CVA tenderness. [] Extremities: No tenderness, no cyanosis, no clubbing, ROM intact, no edema. [] Neurologic: Alert and oriented X 3, normal motor function, normal sensory function, no focal deficits noted. [] Psychologic: Affect flat judgement poor, mood depressed [] General: mild distress, moderate distress Breasts: Not examined Abdomen: Normal bowel sounds, Other (obese) Rectal Exam: not examined PELVIC: Examination not indicated Neuro: Normal speech, Cranial nerves 3-12 NL Vitals Vitals Vital Signs Date Time Temp Pulse Resp B/P (MAP) Pulse Ox O2 Delivery O2 Flow Rate FiO2 11/08/18 10:35 97.6 96 20 86/39 (55) 93 Room Air 97.6 Labs Labs Laboratory Tests Test 11/08/18 12:15 White Blood Count 16.1 x10^3/uL (4.0-11.0) Red Blood Count 3.57 x10^6/uL (3.50-5.40) Hemoglobin 11.3 g/dL (12.0-15.5) Hematocrit 34.7 % (36.0-47.0) Mean Corpuscular Volume 97 fL (79-100) Mean Corpuscular Hemoglobin 32 pg (25-35) Mean Corpuscular Hemoglobin Concent 33 g/dL (31-37) Red Cell Distribution Width 19.5 % (11.5-14.5) Platelet Count 77 x10^3/uL (140-400) Neutrophils (%) (Auto) 90 % (31-73) Lymphocytes (%) (Auto) 2 % (24-48) Monocytes (%) (Auto) 7 % (0-9) Eosinophils (%) (Auto) 1 % (0-3) Basophils (%) (Auto) 0 % (0-3) Neutrophils # (Auto) 14.6 x10^3/uL (1.8-7.7) Lymphocytes # (Auto) 0.3 x10^3/uL (1.0-4.8) Monocytes # (Auto) 1.1 x10^3/uL (0.0-1.1) Eosinophils # (Auto) 0.1 x10^3/uL (0.0-0.7) Basophils # (Auto) 0.0 x10^3/uL (0.0-0.2) Segmented Neutrophils % 92 % (35-66) Band Neutrophils % 2 % (0-9) Lymphocytes % 5 % (24-48) Monocytes % 1 % (0-10) Platelet Estimate Decreased (ADEQUATE) Polychromasia Slight Anisocytosis Slight Sodium Level 131 mmol/L (136-145) Potassium Level 3.1 mmol/L (3.5-5.1) Chloride Level 95 mmol/L (98-107) Carbon Dioxide Level 17 mmol/L (21-32) Anion Gap 19 (6-14) Blood Urea Nitrogen 70 mg/dL (7-20) Creatinine 7.3 mg/dL (0.6-1.0) Estimated GFR (Cockcroft-Gault) 5.7 BUN/Creatinine Ratio 10 (6-20) Glucose Level 154 mg/dL (70-99) Lactic Acid Level 3.9 mmol/L (0.4-2.0) Calcium Level 9.1 mg/dL (8.5-10.1) Magnesium Level 2.4 mg/dL (1.8-2.4) Total Bilirubin 1.9 mg/dL (0.2-1.0) Aspartate Amino Transf (AST/SGOT) 38 U/L (15-37) Alanine Aminotransferase (ALT/SGPT) 28 U/L (14-59) Alkaline Phosphatase 290 U/L (46-116) Troponin I Quantitative 0.075 ng/mL (0.000-0.055) Total Protein 6.4 g/dL (6.4-8.2) Albumin 2.3 g/dL (3.4-5.0) Albumin/Globulin Ratio 0.6 (1.0-1.7) Lipase 9171 U/L (73-393) Laboratory Tests Test 11/08/18 12:15 White Blood Count 16.1 x10^3/uL (4.0-11.0) Red Blood Count 3.57 x10^6/uL (3.50-5.40) Hemoglobin 11.3 g/dL (12.0-15.5) Hematocrit 34.7 % (36.0-47.0) Mean Corpuscular Volume 97 fL (79-100) Mean Corpuscular Hemoglobin 32 pg (25-35) Mean Corpuscular Hemoglobin Concent 33 g/dL (31-37) Red Cell Distribution Width 19.5 % (11.5-14.5) Platelet Count 77 x10^3/uL (140-400) Neutrophils (%) (Auto) 90 % (31-73) Lymphocytes (%) (Auto) 2 % (24-48) Monocytes (%) (Auto) 7 % (0-9) Eosinophils (%) (Auto) 1 % (0-3) Basophils (%) (Auto) 0 % (0-3) Neutrophils # (Auto) 14.6 x10^3/uL (1.8-7.7) Lymphocytes # (Auto) 0.3 x10^3/uL (1.0-4.8) Monocytes # (Auto) 1.1 x10^3/uL (0.0-1.1) Eosinophils # (Auto) 0.1 x10^3/uL (0.0-0.7) Basophils # (Auto) 0.0 x10^3/uL (0.0-0.2) Segmented Neutrophils % 92 % (35-66) Band Neutrophils % 2 % (0-9) Lymphocytes % 5 % (24-48) Monocytes % 1 % (0-10) Platelet Estimate Decreased (ADEQUATE) Polychromasia Slight Anisocytosis Slight Sodium Level 131 mmol/L (136-145) Potassium Level 3.1 mmol/L (3.5-5.1) Chloride Level 95 mmol/L (98-107) Carbon Dioxide Level 17 mmol/L (21-32) Anion Gap 19 (6-14) Blood Urea Nitrogen 70 mg/dL (7-20) Creatinine 7.3 mg/dL (0.6-1.0) Estimated GFR (Cockcroft-Gault) 5.7 BUN/Creatinine Ratio 10 (6-20) Glucose Level 154 mg/dL (70-99) Lactic Acid Level 3.9 mmol/L (0.4-2.0) Calcium Level 9.1 mg/dL (8.5-10.1) Magnesium Level 2.4 mg/dL (1.8-2.4) Total Bilirubin 1.9 mg/dL (0.2-1.0) Aspartate Amino Transf (AST/SGOT) 38 U/L (15-37) Alanine Aminotransferase (ALT/SGPT) 28 U/L (14-59) Alkaline Phosphatase 290 U/L (46-116) Troponin I Quantitative 0.075 ng/mL (0.000-0.055) Total Protein 6.4 g/dL (6.4-8.2) Albumin 2.3 g/dL (3.4-5.0) Albumin/Globulin Ratio 0.6 (1.0-1.7) Lipase 9171 U/L (73-393) Images Images Indication: Upper abdominal pain TECHNIQUE: Portable upright AP chest x-ray COMPARISON: Exam from 11/03/2018. FINDINGS: Patient is rotated to the left side limiting optimal location. Stable position of right chest wall Chemo-Port, left chest wall dialysis catheter and pleural drain on the left side. Large stable pleural effusion noted on the left side. Heart is normal in size. Diffuse interstitial opacities bilaterally. No pneumothorax. Visualized bony thorax is within normal limits. IMPRESSION: 1. Stable large left pleural effusion. Underlying left lung pneumonia not ruled out. 2. Diffuse interstitial opacities suggests interstitial pulmonary edema. Electronically signed by: Ariel Patterson DO (11/08/2018 12:17 PM) [facility] VTE Prophylaxis Ordered VTE Prophylaxis Devices: No VTE Pharmacological Prophylaxi: No Assessment/Plan Assessment/Plan Admitting Diagnosis elevated lipase Status post large-volume paracentesis 6 L 11/04/2018 Recurrent left pleural effusion with indwelling Pleurx catheter Stable large left pleural effusion. Underlying left lung pneumonia not ruled out. Diffuse interstitial opacities suggests interstitial pulmonary edema. ESRD on dialysis Saturday, noncompliance Anemia- Hgb low, Severe Non compliance with HD Anemia of ESRD quadriplegia Full code Hypotension Diabetes type 2 on insulin with A1c 6.8 Leukocytosis chronic, plan admit npo nephrology consult accuchecks pain control scd's 78 min pt exam, chart review, > 50% of time spent with exam, chart review, pt care coordination CHUCK RIVERA MD Nov 08, 2018 13:07
[2018-11-08] MEDS ORDERED: IV NORMAL SALINE 500ML BAG 500 ML IV ONE (13:15)
--- NOTE | 2018-11-08 13:22 | EKG ---
[facility] [address] [place] [address] Test Date: 2018-11-08 Test Time: 12:27:34 Pat Name: YANIRA BRAVO Department: Room: Gender: F [employer] Officer: : 1955 Requested By: JOHN CASAS Order Number: [id number] Reading MD: Measurements Intervals [place] Rate: 97 P: 90 NH: 132 QRS: 62 QRSD: 78 T: 31 QT: 396 QTc: 508 Interpretive Statements SINUS RHYTHM ATRIAL PREMATURE COMPLEX(ES) LOW LIMB LEAD VOLTAGE PROLONGED QT NO SPECIFIC ECG ABNORMALITIES RI6.01 No previous ECG available for comparison
[2018-11-08] MEDS ORDERED: fentaNYL PF VIAL 100 MCG/2 ML VIAL IV ONE (13:45)
[2018-11-08] MEDS ORDERED: PIPERACILLIN/TAZOBACTAM 3.375 GM in IV NORMAL SALINE 50ML 50 ML IV ONE (15:00)
--- NOTE | 2018-11-08 15:03 | RAD ---
PQRS Compliance statement: One or more of the following individualized dose reduction techniques were utilized for this examination: 1. Automated exposure control. 2. Adjustment of the mA and/or kV according to patient size. 3. Use of iterative reconstruction technique. Indication:Upper abdominal pain. Elevated lipase. TECHNIQUE: CT abdomen and pelvis without IV contrast with multiplanar reformats. COMPARISON: None FINDINGS: Limited evaluation of solid abdominal and pelvic organs due to lack of IV contrast. Heart is normal in size. Large left and small right pleural effusion noted. Consolidation is seen in the left lung and right lung base. Dialysis catheter seen in the SVC. Nodular contour of the liver compatible with cirrhosis. Spleen is nonenlarged. Numerous gallstones noted. Noncontrast appearance of the pancreas is within normal limits. Left adrenal gland within normal limits. 3.2 x 1.9 cm oval-shaped nodule in the right adrenal gland. No nephrolithiasis or hydronephrosis. Small volume ascites. Numerous perisplenic varices are seen. No bowel obstruction. Small hiatal hernia. Status post hysterectomy. Urinary bladder demonstrates no radiopaque stone. No pneumoperitoneum. No suspicious bony lesion. IMPRESSION: Limited evaluation of solid abdominal and pelvic organs due to lack of IV contrast. 1. Cirrhosis with evidence of portal venous hypertension as suggested by small ascites and multiple collaterals. 2. No bowel obstruction. 3. Cholelithiasis without imaging evidence of acute cholecystitis. If concern persists further evaluation with HIDA scan recommended. 4. Large left and small right pleural effusion with adjacent consolidation of the lung parenchyma which may be from atelectasis although underlying pneumonia is not ruled out. 5. Right abdomen gland nodule, atypical for classic adenoma. This may represent an atypical adenoma or metastasis if there is history of malignancy. Nonemergent MRI of the abdomen with IV contrast is recommended. Electronically signed by: Ariel Patterson DO (11/08/2018 3:00 PM) [facility]
[2018-11-08] MEDS ORDERED: VANCOMYCIN PER PHARMACY MC PRN (15:45)
[2018-11-08] MEDS ORDERED: VANCOMYCIN 1.75 GM in IV NORMAL SALINE 500ML BAG 500 ML IV ONE (16:00)
[2018-11-08] MEDS ORDERED: PIP/TAZO PER PHARMACY MC PRN (17:30)
[2018-11-08] MEDS: NOREPINEPHRIN 8MG/250ML PREMIX 250 ML IV PRN (17:44)
[2018-11-08] MEDS: PIPERACILLIN/TAZOBACTAM 2.25 GM in IV NORMAL SALINE 50ML 50 ML IV SCH (17:56)
[2018-11-08] MEDS: fentaNYL PF VIAL 100 MCG/2 ML VIAL IV PRN ×2 (18:04→21:03)
[2018-11-08] MEDS ORDERED: FAMOTIDINE 20 MG/2 ML VIAL IVP SCH (21:00)
[2018-11-09] VITALS (29 sets, daily range): BP systolic 60–107; BP diastolic 23–54
[2018-11-09] MEDS: ONDANSETRON PF 4 MG/2 ML VIAL. IV PRN ×4 (00:03→16:42)
[2018-11-09] MEDS: NOREPINEPHRIN 8MG/250ML PREMIX 250 ML IV PRN ×2 (02:53→18:22)
[2018-11-09] MEDS: fentaNYL PF VIAL 100 MCG/2 ML VIAL IV PRN ×6 (03:15→23:18)
[2018-11-09] MEDS: PIPERACILLIN/TAZOBACTAM 2.25 GM in IV NORMAL SALINE 50ML 50 ML IV SCH (05:49)
[2018-11-09 07:51] LABS: BASO # 0.1 x10^3/uL (0.0-0.2); BASO % 1 % (0-3); EOS # 0.1 x10^3/uL (0.0-0.7); EOS % 1 % (0-3); HEMATOCRIT 37.3 % (36.0-47.0); HEMOGLOBIN 12.1 g/dL (12.0-15.5); LYMPH # 0.2 x10^3/uL (1.0-4.8); LYMPH % 1 % (24-48); MEAN CORPUSCULAR HEMOGLOBIN 32 pg (25-35); MEAN CORPUSCULAR HGB CONC 33 g/dL (31-37); MEAN CORPUSCULAR VOLUME 98 fL (79-100); MONO # 0.8 x10^3/uL (0.0-1.1); MONO % 5 % (0-9); NEUT # 14.7 x10^3/uL (1.8-7.7); NEUT % 92 % (31-73); PLATELET COUNT 55 x10^3/uL (140-400); RED BLOOD COUNT 3.82 x10^6/uL (3.50-5.40); RED CELL DISTRIBUTION WIDTH 19.7 % (11.5-14.5); WHITE BLOOD COUNT 15.9 x10^3/uL (4.0-11.0)
[2018-11-09 08:07] LABS: CALCIUM 8.8 mg/dL (8.5-10.1); CREATININE 7.3 mg/dL (0.6-1.0); GFR 5.7; POTASSIUM 4.1 mmol/L (3.5-5.1)
[2018-11-09 08:13] LABS: ALBUMIN 2.3 g/dL (3.4-5.0); ALBUMIN/GLOBULIN RATIO 0.5 (1.0-1.7); TOTAL BILIRUBIN 2.4 mg/dL (0.2-1.0); TOTAL PROTEIN 6.6 g/dL (6.4-8.2)
--- NOTE | 2018-11-09 08:14 | NUR ---
Pharmacy Vancomycin Dosing Note S:Consulted to monitor and dose vancomycin started 11/08/18. O:YANIRA BRAVO is a 63 year old F with Pneumonia . Height: 5 feet, 3 inches Weight: 71.574127 kg Vivian Body Weight: 52.40 Adjusted Body Weight: 59.84 Dosing Weight: Actual Other Antibiotics: ZOSYN LABS: Last BUN: 70 Last Creatinine: 7.3 Creatinine Clearance: mL/min Last WBC: 16.1 Last Procalcitonin: Tmax (past 24 hours): 97.6 Microbiology: I/O: 1050/0 Drug Levels: Last level: on at Last dose given 11/08/18 at 1744 Vancomycin Dosing: Loading Dose: 1750 mg x1 Dosing Weight: Actual Target Trough: 15-20 A: Based on: WEIGHT AND DIALYSIS STATUS, P: 1. Vancomycin 1.75GM IV BOLUS GIVEN 11/08 AT 17:44 2. Follow up Random level on 11/10/18 at 0600 3. Pharmacy will continue to monitor, follow and adjust therapy as needed. [facility], 11/09/18 0842
[2018-11-09] MEDS ORDERED: PHENYLEPH/MINERAL OIL/PETROLAT RECTAL OINTMENT 57GM TUBE. RC PRN (08:45)
[2018-11-09] MEDS ORDERED: diphenhydrAMINE HCL 25 MG CAPSULE PO PRN (08:45)
[2018-11-09] MEDS ORDERED: ALBUTEROL SULFATE 2.5 MG/3 ML NEBU. NEB PRN (08:45)
[2018-11-09] MEDS: MEROPENEM 500 MG in IV NORMAL SALINE 50ML 50 ML IV SCH (08:57)
--- NOTE | 2018-11-09 08:59 | PDOC ---
Infectious Disease Note Vital Sign Vital Signs Vital Signs Date Time Temp Pulse Resp B/P (MAP) Pulse Ox O2 Delivery O2 Flow Rate FiO2 11/09/18 06:27 18 11/09/18 06:00 121 85/29 (47) 2.0 11/09/18 05:46 95 Nasal Cannula 11/08/18 21:00 97.3 97.3 Physical Exam PHYSICAL EXAM Tunnelled HDC (07/25) Labs Lab Laboratory Tests Test 11/08/18 12:15 11/08/18 18:30 11/08/18 22:25 11/09/18 07:30 White Blood Count 16.1 x10^3/uL (4.0-11.0) 15.9 x10^3/uL (4.0-11.0) Red Blood Count 3.57 x10^6/uL (3.50-5.40) 3.82 x10^6/uL (3.50-5.40) Hemoglobin 11.3 g/dL (12.0-15.5) 12.1 g/dL (12.0-15.5) Hematocrit 34.7 % (36.0-47.0) 37.3 % (36.0-47.0) Mean Corpuscular Volume 97 fL (79-100) 98 fL (79-100) Mean Corpuscular Hemoglobin 32 pg (25-35) 32 pg (25-35) Mean Corpuscular Hemoglobin Concent 33 g/dL (31-37) 33 g/dL (31-37) Red Cell Distribution Width 19.5 % (11.5-14.5) 19.7 % (11.5-14.5) Platelet Count 77 x10^3/uL (140-400) 55 x10^3/uL (140-400) Neutrophils (%) (Auto) 90 % (31-73) 92 % (31-73) Lymphocytes (%) (Auto) 2 % (24-48) 1 % (24-48) Monocytes (%) (Auto) 7 % (0-9) 5 % (0-9) Eosinophils (%) (Auto) 1 % (0-3) 1 % (0-3) Basophils (%) (Auto) 0 % (0-3) 1 % (0-3) Neutrophils # (Auto) 14.6 x10^3/uL (1.8-7.7) 14.7 x10^3/uL (1.8-7.7) Lymphocytes # (Auto) 0.3 x10^3/uL (1.0-4.8) 0.2 x10^3/uL (1.0-4.8) Monocytes # (Auto) 1.1 x10^3/uL (0.0-1.1) 0.8 x10^3/uL (0.0-1.1) Eosinophils # (Auto) 0.1 x10^3/uL (0.0-0.7) 0.1 x10^3/uL (0.0-0.7) Basophils # (Auto) 0.0 x10^3/uL (0.0-0.2) 0.1 x10^3/uL (0.0-0.2) Segmented Neutrophils % 92 % (35-66) Band Neutrophils % 2 % (0-9) Lymphocytes % 5 % (24-48) Monocytes % 1 % (0-10) Platelet Estimate Decreased (ADEQUATE) Polychromasia Slight Anisocytosis Slight Sodium Level 131 mmol/L (136-145) 132 mmol/L (136-145) Potassium Level 3.1 mmol/L (3.5-5.1) 4.1 mmol/L (3.5-5.1) Chloride Level 95 mmol/L (98-107) 97 mmol/L (98-107) Carbon Dioxide Level 17 mmol/L (21-32) 14 mmol/L (21-32) Anion Gap 19 (6-14) 21 (6-14) Blood Urea Nitrogen 70 mg/dL (7-20) 72 mg/dL (7-20) Creatinine 7.3 mg/dL (0.6-1.0) 7.3 mg/dL (0.6-1.0) Estimated GFR (Cockcroft-Gault) 5.7 5.7 BUN/Creatinine Ratio 10 (6-20) 10 (6-20) Glucose Level 154 mg/dL (70-99) 99 mg/dL (70-99) Lactic Acid Level 3.9 mmol/L (0.4-2.0) 3.4 mmol/L (0.4-2.0) Calcium Level 9.1 mg/dL (8.5-10.1) 8.8 mg/dL (8.5-10.1) Magnesium Level 2.4 mg/dL (1.8-2.4) Total Bilirubin 1.9 mg/dL (0.2-1.0) 2.4 mg/dL (0.2-1.0) Aspartate Amino Transf (AST/SGOT) 38 U/L (15-37) 48 U/L (15-37) Alanine Aminotransferase (ALT/SGPT) 28 U/L (14-59) 30 U/L (14-59) Alkaline Phosphatase 290 U/L (46-116) 309 U/L (46-116) Troponin I Quantitative 0.075 ng/mL (0.000-0.055) QA-Zeo-Y-Type Natriuretic Peptide 6077 pg/mL (0-124) Total Protein 6.4 g/dL (6.4-8.2) 6.6 g/dL (6.4-8.2) Albumin 2.3 g/dL (3.4-5.0) 2.3 g/dL (3.4-5.0) Albumin/Globulin Ratio 0.6 (1.0-1.7) 0.5 (1.0-1.7) Lipase 9171 U/L (73-393) Glucose (Fingerstick) 136 mg/dL (70-99) Objective Assessment Sepsis with hypotension and lactic acidosis- off Levophed Acute pancreatitis Leukocytosis Multiple abx allergies Left pleural effusion s/p Pleurx catheter placement 10/28 Cholelithiasis ESLD with ascites, last paracentesis 11/04. CKD/HD. Tunneled HDC exposed, dressing found off Right abdomen gland nodule seen on CT Port-a-cath h/o VRE (PCN-R) & GN UTIs; MRSA and C. diff Plan Plan of Care Change Zosyn to meropenem given healthcare exposure and h/o abx D/c vanc. Last dose 11/08 Repeat labs in am f/u cultures Re-dress HD catheter Local wound care and offloading of heels D/w nursing Critically ill Thank you [id number] Pt seen and examined case discussed agree with above a /p D/W DARNELL WEST APRN Nov 09, 2018 08:59 FARHANA PANCHAL MD Nov 09, 2018 14:41
[2018-11-09] MEDS: INSULIN GLARGINE 300 UNITS/3 ML INSULN.PEN. SQ SCH (09:00)
[2018-11-09] MEDS ORDERED: BENZONATATE 100 MG CAPSULE. PO PRN (09:00)
[2018-11-09] MEDS: rifAXIMin 550 MG TABLET PO SCH ×2 (09:04→21:00)
[2018-11-09] MEDS: PANTOPRAZOLE 40 MG TABLET.DR. PO SCH (09:04)
[2018-11-09] MEDS: NYSTATIN 100,000 UNIT/GM TOPICAL OINTMENT 15GM TUBE. TP SCH ×2 (09:04→21:59)
[2018-11-09] MEDS: LEVOTHYROXINE 100 MCG TABLET PO SCH (09:04)
[2018-11-09] MEDS: CLOTRIMAZOLE 10 MG TROCHE. MM SCH ×2 (09:04→21:00)
[2018-11-09] MEDS: LACTOBACILLUS RHAMNOSUS GG 1 CAPSULE. PO SCH ×2 (09:04→21:00)
[2018-11-09] MEDS: MIDODRINE 5 MG TABLET PO SCH ×3 (09:38→18:23)
[2018-11-09] MEDS ORDERED: SIMETHICONE 80 MG TAB.CHEW PO PRN (09:45)
--- NOTE | 2018-11-09 09:55 | CONS ---
DATE OF CONSULTATION: REFERRING PHYSICIAN: Darion Infante MD REASON FOR CONSULTATION: Sepsis. HISTORY OF PRESENT ILLNESS: This patient is a 63-year-old female with a past medial history of end-stage liver disease; chronic kidney disease, on hemodialysis via tunneled HD catheter and diabetes, who presented with acute onset of abdominal pain and nausea with a lipase of 9171. She was hypotensive requiring IV fluid resuscitation and brief duration of vasopressor support. DICTATION ENDS HERE. LIMA PANCHAL MD DR: TEN/rebeka JOB#: [id number] / [id number] This consult is incomplete and duplicate. RADHA
--- NOTE | 2018-11-09 10:04 | PDOC2 ---
CONSULT Date of Consult Date of Consult DATE: 11/09/18 TIME: 09:58 Reason for Consult Reason for Consult: ESRD Referring Physician Referring Physician: NICOLE Identification/Chief Complaint Chief Complaint ABD PAIN Source Source: Chart review, Patient History of Present Illness Reason for Visit: THIS IS A 63 YR OLD ESRD PT WITH ABD PAIN AND DX WITH PANCREATITIS. NOTED TO HAVE LABS C/W ESRD. HAS OP HD ON [facility] BUT SKIPPED SATURDAY AND THEN RS FOR SAT. SHE INSTEAD CAME TO THE ER DUE TO ABD PAIN. SHE HAS DIAZ AND RECURRENT ASCITES AND REQUIRES HER TO HAVE FREQUENT PARACENTESIS LAST OF WHICH WAS ON SATURDAY. SHE ALSO HAS CHRONIC HYPOTENSION. SHE IS ALSO VERY NON COMPLIANT WITH HER MEDS AND HD Past Medical History Cardiovascular: HTN, Hyperlipidemia Pulmonary: Asthma, COPD CENTRAL NERVOUS SYSTEM: Other GI: Constipation, GERD, GI bleed, Gastritis, Hemorrhoids, Other Heme/Onc: Anemia NOS Hepatobiliary: Cirrhosis Psych: Anxiety, Depression Musculoskeletal: Osteoarthritis Renal/: Acute renal failure, Chronic renal failure, UTI, Urinary Incontinence Endocrine: Diabetes, Hypothyroidism, Hyperparathyroidism Past Surgical History Past Surgical History: Cataract Removal, Tonsillectomy, Hysterectomy, Other Family History Family History: High Cholestrol, Hypertension, Family History Unknown Social History No ALCOHOL: none Drugs: None Lives: with Family Domestic Violence: Neg Current Problem List Problem List Problems Medical Problems: (1) Acute pancreatitis Status: Acute (2) Elevated troponin Status: Acute (3) Hypotension Status: Acute Current Medications Current Medications Current Medications Sodium Chloride (NORMAL SALINE FLUSH for STERILE FIELD) 10 ml STK-MED ONCE .ROUTE ; Start 11/08/18 at 11:04; Stop 11/08/18 at 11:05; Status DC Ondansetron HCl (Zofran) 4 mg 1X ONCE IV Last administered on 11/08/18at 12:56; Start 11/08/18 at 11:45; Stop 11/08/18 at 11:46; Status DC Sodium Chloride 500 ml @ 500 mls/hr 1X ONCE IV Last administered on 11/08/18at 13:15; Start 11/08/18 at 13:15; Stop 11/08/18 at 14:14; Status DC Fentanyl Citrate (Fentanyl 2ml Vial) 25 mcg 1X ONCE IV Last administered on 11/08/18at 14:12; Start 11/08/18 at 13:45; Stop 11/08/18 at 13:46; Status DC Piperacillin Sod/ Tazobactam Sod 3.375 gm/Sodium Chloride 50 ml @ 100 mls/hr 1X ONCE IV Last administered on 11/08/18at 16:55; Start 11/08/18 at 15:00; Stop 11/08/18 at 15:29; Status DC Vancomycin HCl (Vanco Per Pharmacy) 1 each PRN DAILY PRN MC SEE COMMENTS Last administered on 11/09/18at 08:13; Start 11/08/18 at 15:45; Stop 11/09/18 at 08:35; Status DC Vancomycin HCl 1.75 gm/Sodium Chloride 500 ml @ 250 mls/hr 1X ONCE IV Last administered on 11/08/18at 17:44; Start 11/08/18 at 16:00; Stop 11/08/18 at 17:59; Status DC Norepinephrine Bitartrate 250 ml @ 13.438 mls/ hr CONT PRN IV SEE I/O RECORD Last administered on 11/09/18at 02:53; Start 11/08/18 at 16:45 Piperacillin Sod/ Tazobactam Sod (Zosyn Per Pharmacy) 1 each PRN DAILY PRN MC SEE COMMENTS; Start 11/08/18 at 17:30; Stop 11/09/18 at 08:39; Status DC Piperacillin Sod/ Tazobactam Sod 2.25 gm/Sodium Chloride 50 ml @ 100 mls/hr Q8 HRS IV Last administered on 11/09/18at 05:49; Start 11/08/18 at 18:00; Stop 11/09/18 at 08:35; Status DC Fentanyl Citrate (Fentanyl 2ml Vial) 50 mcg PRN Q3HRS PRN IV PAIN Last administered on 11/09/18at 08:49; Start 11/08/18 at 18:00 Ondansetron HCl (Zofran) 4 mg PRN Q4HRS PRN IV NAUSEA/VOMITING Last administered on 11/09/18at 07:45; Start 11/08/18 at 18:00 Famotidine (Pepcid Vial) 20 mg QHS IVP Last administered on 11/08/18at 21:02; Start 11/08/18 at 21:00; Stop 11/09/18 at 08:49; Status DC Vancomycin HCl (Vancomycin Random Level) 1 each 1X ONCE MC ; Start 11/10/18 at 06:00; Stop 11/10/18 at 06:00; Status DC Meropenem 500 mg/ Sodium Chloride 50 ml @ 100 mls/hr DAILY IV Last administered on 11/09/18at 08:57; Start 11/09/18 at 09:00 Albuterol Sulfate (Ventolin Neb Soln) 2.5 mg PRN Q6HRS PRN NEB SHORTNESS OF BREATH; Start 11/09/18 at 08:45 Clotrimazole (Mycelex) 10 mg BID MM Last administered on 11/09/18at 09:04; Start 11/09/18 at 09:00 Diphenhydramine HCl (Benadryl) 25 mg PRN Q6HRS PRN PO ITCHING; Start 11/09/18 at 08:45 Insulin Glargine (Lantus) 40 units DAILY08 SQ ; Start 11/09/18 at 09:00 Lactobacillus Rhamnosus (Culturelle) 1 cap BID PO Last administered on 11/09/18at 09:04; Start 11/09/18 at 09:00 Nystatin (Mycostatin) 1 efe BID TP Last administered on 11/09/18at 09:04; Start 11/09/18 at 09:00 Phenyleph/Shark Oil/Min Oil/Petrol (Preparation H) 1 efe PRN QID PRN RC RECTAL PAIN; Start 11/09/18 at 08:45 Rifaximin (Xifaxan) 550 mg BID PO Last administered on 11/09/18at 09:04; Start 11/09/18 at 09:00 Benzonatate (Tessalon Perle) 100 mg PRN Q6HRS PRN PO COUGH; Start 11/09/18 at 09:00 Calcium Acetate (Phoslo) 667 mg TIDWMEALS PO ; Start 11/09/18 at 12:00 Levothyroxine Sodium (Synthroid) 300 mcg DAILY06 PO Last administered on 11/09/18at 09:04; Start 11/09/18 at 09:00 Midodrine (Proamatine) 10 mg [id number] PO ; Start 11/09/18 at 09:38 Pantoprazole Sodium (Protonix) 40 mg DAILYAC PO Last administered on 11/09/18at 09:04; Start 11/09/18 at 09:00 Simethicone (Gas-X) 80 mg PRN AFTMEALHC PRN PO GAS / BLOATING; Start 11/09/18 at 09:45 Active Scripts Active Culturelle (Lactobacillus Rhamnosus Gg) 1 Each Cap.sprink 1 Cap PO BID 14 Days Major-Prep Hemorrhoidal Oint (Phenyleph/Mineral Oil/Petrolat) 57 Gm Oint.appl 1 Efe RC PRN QID PRN 14 Days Nystatin 15 Gm Oint...g. 1 Efe TP BID 30 Days Clotrimazole 10 Mg Vielka 10 Mg MM BID 10 Days Benzonatate 100 Mg Capsule 100 Mg PO PRN Q6HRS PRN 10 Days Proair Hfa (Albuterol Sulfate) 8.5 Gm Hfa.aer.ad 2.5 Mg NEB PRN Q6HRS PRN 30 Days Midodrine Hcl 5 Mg Tablet 10 Mg PO [id number] 14 Days Reported Benadryl (Diphenhydramine Hcl) 25 Mg Capsule 25 Mg PO PRN Q6HRS PRN Calcium Acetate 667 Mg Tablet 667 Mg PO TIDWMEALS Dialyvite Tablet (Folic Acid/Vitamin B Comp W-C) 1 Each Tablet 1 Each PO QMWF Omeprazole 40 Mg Capsule. 1 Cap PO DAILY Xifaxan (Rifaximin) 550 Mg Tablet 1 Tab PO BID Fusion Plus Capsule (Iron,Fum&Ps/Fa/Vit B&C#18/L.ca) 1 Each Capsule 1 Each PO DAILY Albuterol Sulfate Conc Neb Soln (Albuterol Sulfate) 2.5 Mg/0.5 Ml Vial.neb 2.5 Mg NEB Q6HRS PRN Lactulose 20 Gm/30 Ml Solution 20 Gm PO TID Lantus Solostar (Insulin Glargine,Hum.rec.anlog) 100 Unit/1 Ml Insuln.pen 40 Units SQ DAILY08 SSI Calcium + Vitamin D Tablet (Calcium Carbonate/Vitamin D3) 1 Each Tablet 1 Each PO DAILY Novolog Flexpen (Insulin Aspart) 100 Unit/1 Ml Insuln.pen 0 SQ TIDAC 0-149: 0 units 150-199: 2 units 200-249: 4 units 250-299: 6 units 300-349: 8 units 350-399: 10 units >400: Call Synthroid (Levothyroxine Sodium) 25 Mcg Tablet 300 Mcg PO DAILY Flovent 110MCG Hfa (Fluticasone Propionate) 12 Gm Aer.w.adap 1 Puff IH DAILY Allergies Allergies: Coded Allergies: Sulfa (Sulfonamide Antibiotics) (Verified Allergy, Severe, Swelling, ) tongue swelling, rash cephalexin (Verified Allergy, Severe, Anaphylaxis, 05/22/18) TOLERATES AMOX, ZOSYN doxycycline (Verified Allergy, Intermediate, 04/24/18) gabapentin (Verified Allergy, Intermediate, Anxiety, 06/04/18) pt states gabapentin caused her to be admitted to [facility] where she presented "because I was out of my mind from that drug." hydrocodone (Verified Allergy, Intermediate, Rash, 11/04/18) REFUSES LORTAB,ETC insulin detemir (Verified Allergy, Intermediate, Rash, 04/24/18) morphine (Verified Allergy, Intermediate, rash, 04/24/18) niacin (Verified Allergy, Intermediate, Rash, 04/24/18) edema oxycodone (Verified Allergy, Intermediate, rash, 04/24/18) povidone-iodine (Verified Allergy, Intermediate, It, 04/24/18) tramadol (Verified Allergy, Intermediate, Rash, 04/24/18) I S O L A T I O N *CONTACT* (Verified Allergy, Unknown, 04/24/18) VRE - urine 12/20/17 codeine (Verified Adverse Reaction, Intermediate, Nausea and Vomiting, 04/24/18) erythromycin base (Verified Adverse Reaction, Intermediate, Diarrhea, 04/24/18) ROS General: YES: Fatigue, Malaise, Appetite PSYCHOLOGICAL ROS: YES: Anxiety, Depression Eyes: Yes Decreased vision HEENT: YES: Heacaches Respiratory: YES: Cough Gastrointestinal: Yes Nausea, Yes Abdominal Pain, Yes Diarrhea Genitourinary: YES Other (ANURIA) Musculoskeletal: Yes Muscular Weakness Neurological: Yes Weakness Skin: Yes Dry Skin Physical Exam General: Alert, Oriented X3, Cooperative, No acute distress, mild distress HEENT: Atraumatic, PERRLA, EOMI, Mucous membr. moist/pink Lungs: Other (DECREASED AT BASES) Heart: Regular rate Abdomen: Normal bowel sounds, Soft, No tenderness Extremities: No clubbing, No cyanosis Skin: No breakdown Neuro: Normal speech, Sensation intact Psych/Mental Status: Mental status NL, Mood NL MUSCULOSKELETAL: No joint tenderness, No deformity, No swelling Vitals VITALS Vital Signs Date Time Temp Pulse Resp B/P (MAP) Pulse Ox O2 Delivery O2 Flow Rate FiO2 11/09/18 09:16 18 98 Nasal Cannula 2.0 11/09/18 09:00 98.2 115 72/39 (50) 98.2 Labs Labs Laboratory Tests Test 11/08/18 12:15 11/08/18 18:30 11/08/18 22:25 11/09/18 07:30 White Blood Count 16.1 x10^3/uL (4.0-11.0) 15.9 x10^3/uL (4.0-11.0) Red Blood Count 3.57 x10^6/uL (3.50-5.40) 3.82 x10^6/uL (3.50-5.40) Hemoglobin 11.3 g/dL (12.0-15.5) 12.1 g/dL (12.0-15.5) Hematocrit 34.7 % (36.0-47.0) 37.3 % (36.0-47.0) Mean Corpuscular Volume 97 fL (79-100) 98 fL (79-100) Mean Corpuscular Hemoglobin 32 pg (25-35) 32 pg (25-35) Mean Corpuscular Hemoglobin Concent 33 g/dL (31-37) 33 g/dL (31-37) Red Cell Distribution Width 19.5 % (11.5-14.5) 19.7 % (11.5-14.5) Platelet Count 77 x10^3/uL (140-400) 55 x10^3/uL (140-400) Neutrophils (%) (Auto) 90 % (31-73) 92 % (31-73) Lymphocytes (%) (Auto) 2 % (24-48) 1 % (24-48) Monocytes (%) (Auto) 7 % (0-9) 5 % (0-9) Eosinophils (%) (Auto) 1 % (0-3) 1 % (0-3) Basophils (%) (Auto) 0 % (0-3) 1 % (0-3) Neutrophils # (Auto) 14.6 x10^3/uL (1.8-7.7) 14.7 x10^3/uL (1.8-7.7) Lymphocytes # (Auto) 0.3 x10^3/uL (1.0-4.8) 0.2 x10^3/uL (1.0-4.8) Monocytes # (Auto) 1.1 x10^3/uL (0.0-1.1) 0.8 x10^3/uL (0.0-1.1) Eosinophils # (Auto) 0.1 x10^3/uL (0.0-0.7) 0.1 x10^3/uL (0.0-0.7) Basophils # (Auto) 0.0 x10^3/uL (0.0-0.2) 0.1 x10^3/uL (0.0-0.2) Segmented Neutrophils % 92 % (35-66) Band Neutrophils % 2 % (0-9) Lymphocytes % 5 % (24-48) Monocytes % 1 % (0-10) Platelet Estimate Decreased (ADEQUATE) Polychromasia Slight Anisocytosis Slight Sodium Level 131 mmol/L (136-145) 132 mmol/L (136-145) Potassium Level 3.1 mmol/L (3.5-5.1) 4.1 mmol/L (3.5-5.1) Chloride Level 95 mmol/L (98-107) 97 mmol/L (98-107) Carbon Dioxide Level 17 mmol/L (21-32) 14 mmol/L (21-32) Anion Gap 19 (6-14) 21 (6-14) Blood Urea Nitrogen 70 mg/dL (7-20) 72 mg/dL (7-20) Creatinine 7.3 mg/dL (0.6-1.0) 7.3 mg/dL (0.6-1.0) Estimated GFR (Cockcroft-Gault) 5.7 5.7 BUN/Creatinine Ratio 10 (6-20) 10 (6-20) Glucose Level 154 mg/dL (70-99) 99 mg/dL (70-99) Lactic Acid Level 3.9 mmol/L (0.4-2.0) 3.4 mmol/L (0.4-2.0) Calcium Level 9.1 mg/dL (8.5-10.1) 8.8 mg/dL (8.5-10.1) Magnesium Level 2.4 mg/dL (1.8-2.4) Total Bilirubin 1.9 mg/dL (0.2-1.0) 2.4 mg/dL (0.2-1.0) Aspartate Amino Transf (AST/SGOT) 38 U/L (15-37) 48 U/L (15-37) Alanine Aminotransferase (ALT/SGPT) 28 U/L (14-59) 30 U/L (14-59) Alkaline Phosphatase 290 U/L (46-116) 309 U/L (46-116) Troponin I Quantitative 0.075 ng/mL (0.000-0.055) 0.186 ng/mL (0.000-0.055) NK-Ggf-H-Type Natriuretic Peptide 6077 pg/mL (0-124) Total Protein 6.4 g/dL (6.4-8.2) 6.6 g/dL (6.4-8.2) Albumin 2.3 g/dL (3.4-5.0) 2.3 g/dL (3.4-5.0) Albumin/Globulin Ratio 0.6 (1.0-1.7) 0.5 (1.0-1.7) Lipase 9171 U/L (73-393) Glucose (Fingerstick) 136 mg/dL (70-99) Laboratory Tests Test 11/08/18 12:15 11/08/18 18:30 11/08/18 22:25 11/09/18 07:30 White Blood Count 16.1 x10^3/uL (4.0-11.0) 15.9 x10^3/uL (4.0-11.0) Red Blood Count 3.57 x10^6/uL (3.50-5.40) 3.82 x10^6/uL (3.50-5.40) Hemoglobin 11.3 g/dL (12.0-15.5) 12.1 g/dL (12.0-15.5) Hematocrit 34.7 % (36.0-47.0) 37.3 % (36.0-47.0) Mean Corpuscular Volume 97 fL (79-100) 98 fL (79-100) Mean Corpuscular Hemoglobin 32 pg (25-35) 32 pg (25-35) Mean Corpuscular Hemoglobin Concent 33 g/dL (31-37) 33 g/dL (31-37) Red Cell Distribution Width 19.5 % (11.5-14.5) 19.7 % (11.5-14.5) Platelet Count 77 x10^3/uL (140-400) 55 x10^3/uL (140-400) Neutrophils (%) (Auto) 90 % (31-73) 92 % (31-73) Lymphocytes (%) (Auto) 2 % (24-48) 1 % (24-48) Monocytes (%) (Auto) 7 % (0-9) 5 % (0-9) Eosinophils (%) (Auto) 1 % (0-3) 1 % (0-3) Basophils (%) (Auto) 0 % (0-3) 1 % (0-3) Neutrophils # (Auto) 14.6 x10^3/uL (1.8-7.7) 14.7 x10^3/uL (1.8-7.7) Lymphocytes # (Auto) 0.3 x10^3/uL (1.0-4.8) 0.2 x10^3/uL (1.0-4.8) Monocytes # (Auto) 1.1 x10^3/uL (0.0-1.1) 0.8 x10^3/uL (0.0-1.1) Eosinophils # (Auto) 0.1 x10^3/uL (0.0-0.7) 0.1 x10^3/uL (0.0-0.7) Basophils # (Auto) 0.0 x10^3/uL (0.0-0.2) 0.1 x10^3/uL (0.0-0.2) Segmented Neutrophils % 92 % (35-66) Band Neutrophils % 2 % (0-9) Lymphocytes % 5 % (24-48) Monocytes % 1 % (0-10) Platelet Estimate Decreased (ADEQUATE) Polychromasia Slight Anisocytosis Slight Sodium Level 131 mmol/L (136-145) 132 mmol/L (136-145) Potassium Level 3.1 mmol/L (3.5-5.1) 4.1 mmol/L (3.5-5.1) Chloride Level 95 mmol/L (98-107) 97 mmol/L (98-107) Carbon Dioxide Level 17 mmol/L (21-32) 14 mmol/L (21-32) Anion Gap 19 (6-14) 21 (6-14) Blood Urea Nitrogen 70 mg/dL (7-20) 72 mg/dL (7-20) Creatinine 7.3 mg/dL (0.6-1.0) 7.3 mg/dL (0.6-1.0) Estimated GFR (Cockcroft-Gault) 5.7 5.7 BUN/Creatinine Ratio 10 (6-20) 10 (6-20) Glucose Level 154 mg/dL (70-99) 99 mg/dL (70-99) Lactic Acid Level 3.9 mmol/L (0.4-2.0) 3.4 mmol/L (0.4-2.0) Calcium Level 9.1 mg/dL (8.5-10.1) 8.8 mg/dL (8.5-10.1) Magnesium Level 2.4 mg/dL (1.8-2.4) Total Bilirubin 1.9 mg/dL (0.2-1.0) 2.4 mg/dL (0.2-1.0) Aspartate Amino Transf (AST/SGOT) 38 U/L (15-37) 48 U/L (15-37) Alanine Aminotransferase (ALT/SGPT) 28 U/L (14-59) 30 U/L (14-59) Alkaline Phosphatase 290 U/L (46-116) 309 U/L (46-116) Troponin I Quantitative 0.075 ng/mL (0.000-0.055) 0.186 ng/mL (0.000-0.055) KE-Vmb-P-Type Natriuretic Peptide 6077 pg/mL (0-124) Total Protein 6.4 g/dL (6.4-8.2) 6.6 g/dL (6.4-8.2) Albumin 2.3 g/dL (3.4-5.0) 2.3 g/dL (3.4-5.0) Albumin/Globulin Ratio 0.6 (1.0-1.7) 0.5 (1.0-1.7) Lipase 9171 U/L (73-393) Glucose (Fingerstick) 136 mg/dL (70-99) Assessment/Plan Assessment/Plan IMP ACUTE PANCREATITIS ESRD NON COMPLIANCE DIAZ WITH RECURRENT ASCITES CHRONIC HYPOTENSION DM II CHRONIC LEUCOCYTOSIS RECURRENT PLEURAL EFFUSIONS PLAN ENC COMPLIANCE RESUME HER MIDODRINE ALBUMIN INFUSION HD MWF-NEXT TOMORROW GI EVAL AND TX PARACENTESIS AND THORACENTESIS NEEDED LUC WHEN NEEDED WILL FOLLOW HUNG BREWSTER MD Nov 09, 2018 10:04
--- NOTE | 2018-11-09 10:10 | CONS ---
DATE OF CONSULTATION: 11/09/2018 Leon Arguello, nurse practitioner, dictating for Tony Panchal MD, Infectious Disease. REFERRING PHYSICIAN: Darion Infante MD REASON FOR CONSULTATION: Sepsis. HISTORY OF PRESENT ILLNESS: This patient is a 63-year-old female with past medical history of end-stage liver disease, chronic kidney disease, on hemodialysis via a tunneled HD catheter and diabetes, who presented with abdominal pain, nausea, and a lipase of 9171. She was hypotensive, requiring IV fluids and a brief duration of vasopressor support. Abdominal/pelvic CT scan showed numerous gallstones and a noncontrast appearance of the pancreas within normal limits. A large left and small right pleural effusion with adjacent consolidation of the lung parenchyma, which may be from atelectasis, although underlying pneumonia is not ruled out. She was admitted to the Intensive Care Unit and is currently on vancomycin and Zosyn. The patient is tolerating ice chips well. She continues to complain of abdominal pain though. She has had several loose stools. Denies vomiting. Denies shortness of air or chest discomfort. Denies fevers or chills. She has had at least 9 hospital admissions within the last 6 months and has been on multiple antibiotics consisting of gentamicin, ciprofloxacin, cefazolin, Zosyn, and Zyvox as well. PAST MEDICAL HISTORY: VRE, Proteus mirabilis, and Klebsiella aerogenes, urinary tract infection. History of MRSA and Clostridium difficile infection. End-stage liver disease, ascites, recurrent pleural effusion, status post PleurX catheter placement on 10/28/2018. Chronic kidney disease, on hemodialysis via tunneled HD catheter, diabetes, peripheral neuropathy, hyperlipidemia, hypertension, COPD, asthma, esophageal varices, ascites, portal venous hypertension, GERD, hypothyroidism, depression, anxiety. PAST SURGICAL HISTORY: Port-A-Cath placement, HD catheter placement, paracentesis, cataract extraction, tonsillectomy, adenoidectomy, exploratory laparotomy, hysterectomy. SOCIAL HISTORY: The patient lives at home. At one point, she was on hospice and had recently changed her mind. She says her daughter helps care for her. FAMILY HISTORY: Hyperlipidemia and hypertension. ALLERGIES: SULFA, CEPHALEXIN, DOXYCYCLINE, ERYTHROMYCIN. She has tolerated Zosyn. ROS : as per HPI, rest of the systems reviewed and are neg. MEDICATIONS: Vancomycin and Zosyn. Other medications are available and have been reviewed on the JUN. PHYSICAL EXAMINATION: VITAL SIGNS: Temperature is 97.3, blood pressure 85/29, heart rate 121, respiratory rate 18, pulse oximetry is 95% on 2 liters oxygen. BMI 28. GENERAL: The patient is slightly propped up in bed, awake, in no apparent distress. HEENT: Pupils equally round and reactive. LUNGS: Diminished aeration. Left PleurX catheter. HEART: S1, S2. ABDOMEN: Obese, soft, tender. Bowel sounds present. EXTREMITIES: No gross edema or cyanosis. SKIN: Warm without signs of rash. Both heels are boggy. She has dressings on her arms. NEUROLOGIC: Alert. Answers simple questions appropriately. Port-A-Cath without signs of any complications. HD catheter exposed as the dressing is off. No redness or drainage. LABORATORY DATA: Today's WBC 15.9 from 16.1 on admission, hemoglobin 12.1, platelets 55,000. Sodium 132, potassium 4.1, creatinine 7.3, BUN 72, glucose 99. Lactic acid 3.9. Total bilirubin 2.4, AST 48, ALT 30. BNP 6077. Troponin 0.075. Albumin 2.3. Lipase 9171. Urinalysis with C and S and blood cultures pending. MRSA screen pending. Abdominal/pelvis CT per HPI. Also, showed cirrhosis with evidence of portal venous hypertension. No bowel obstruction. Right abdominal gland nodule, atypical for classic adenoma. Chest x-ray showed stable large left pleural effusion. Underlying left lung pneumonia not ruled out. Diffuse interstitial opacities suggesting interstitial pulmonary edema. ASSESSMENT: 1. Sepsis with hypotension and lactic acidosis, now off Levophed. 2. Acute pancreatitis. 3. Leukocytosis. 4. Multiple antibiotic allergies. 5. Left pleural effusion, status post PleurX catheter placement on 10/28/2018. 6. Cholelithiasis. 7. Nonalcoholic steatohepatitis with ascites. Last paracentesis was on 11/04/2018. 6. Chronic kidney disease, on hemodialysis. Tunneled HD catheter exposure. 7. Right abdominal gland nodule seen on CT. 8. History of vancomycin-resistant enterococci (penicillin-resistant) and Gram-negative urinary tract infections; Methicillin-resistant Staphylococcus aureus and Clostridium difficile infection. PLAN: Given the patient's multiple hospital admissions and use of antibiotics, we will switch Zosyn to meropenem. Discontinue the vancomycin. We will follow up on culture results. Repeat labs in the morning. Procalcitonin level pending. HD catheter to be redressed. Local wound care and offloading of . Discussed with nursing. Thank you, Dr. Infante, for asking us to participate in this patient's care. Should you have further questions or concerns, please call. TONY PANCHAL MD DR: TRAVIS/rebeka JOB#: [id number] / [id number] RADHA
[2018-11-09] MEDS ORDERED: ALBUMIN HUMAN 25% 100 ML IV ONE (12:00)
[2018-11-09] MEDS: CALCIUM ACETATE 667 MG CAPSULE PO SCH ×2 (12:00→17:00)
--- NOTE | 2018-11-09 12:47 | PDOC ---
PROGRESS NOTES Chief Complaint Chief Complaint sepsis and septic shock End stage liver disease elevated lipase Status post large-volume paracentesis 6 L 11/04/2018 Recurrent left pleural effusion with indwelling Pleurx catheter Stable large left pleural effusion. Underlying left lung pneumonia not ruled out. Diffuse interstitial opacities suggests interstitial pulmonary edema. ESRD on dialysis Saturday, noncompliance Anemia- Hgb low, Severe Non compliance with HD Anemia of ESRD quadriplegia Hypotension Diabetes type 2 on insulin Leukocytosis chronic, History of Present Illness History of Present Illness in ICU on levaphed cont currnet pain complaints Vitals Vitals Vital Signs Date Time Temp Pulse Resp B/P (MAP) Pulse Ox O2 Delivery O2 Flow Rate FiO2 11/09/18 12:00 98.0 115 20 64/29 (41) 2.0 98.0 11/09/18 12:00 Nasal Cannula 11/09/18 09:16 98 Physical Exam Physical Exam Tunnelled HDC (07/25) General: Alert, Oriented X3, Cooperative, No acute distress, mild distress Heart: Regular rate Lungs: Other Abdomen: Normal bowel sounds, Soft, No tenderness Extremities: No clubbing, No cyanosis Skin: No breakdown Labs LABS Laboratory Tests Test 11/08/18 18:30 11/08/18 22:25 11/09/18 07:30 11/09/18 09:09 Lactic Acid Level 3.4 mmol/L (0.4-2.0) Glucose (Fingerstick) 136 mg/dL (70-99) 78 mg/dL (70-99) White Blood Count 15.9 x10^3/uL (4.0-11.0) Red Blood Count 3.82 x10^6/uL (3.50-5.40) Hemoglobin 12.1 g/dL (12.0-15.5) Hematocrit 37.3 % (36.0-47.0) Mean Corpuscular Volume 98 fL (79-100) Mean Corpuscular Hemoglobin 32 pg (25-35) Mean Corpuscular Hemoglobin Concent 33 g/dL (31-37) Red Cell Distribution Width 19.7 % (11.5-14.5) Platelet Count 55 x10^3/uL (140-400) Neutrophils (%) (Auto) 92 % (31-73) Lymphocytes (%) (Auto) 1 % (24-48) Monocytes (%) (Auto) 5 % (0-9) Eosinophils (%) (Auto) 1 % (0-3) Basophils (%) (Auto) 1 % (0-3) Neutrophils # (Auto) 14.7 x10^3/uL (1.8-7.7) Lymphocytes # (Auto) 0.2 x10^3/uL (1.0-4.8) Monocytes # (Auto) 0.8 x10^3/uL (0.0-1.1) Eosinophils # (Auto) 0.1 x10^3/uL (0.0-0.7) Basophils # (Auto) 0.1 x10^3/uL (0.0-0.2) Sodium Level 132 mmol/L (136-145) Potassium Level 4.1 mmol/L (3.5-5.1) Chloride Level 97 mmol/L (98-107) Carbon Dioxide Level 14 mmol/L (21-32) Anion Gap 21 (6-14) Blood Urea Nitrogen 72 mg/dL (7-20) Creatinine 7.3 mg/dL (0.6-1.0) Estimated GFR (Cockcroft-Gault) 5.7 BUN/Creatinine Ratio 10 (6-20) Glucose Level 99 mg/dL (70-99) Calcium Level 8.8 mg/dL (8.5-10.1) Total Bilirubin 2.4 mg/dL (0.2-1.0) Aspartate Amino Transf (AST/SGOT) 48 U/L (15-37) Alanine Aminotransferase (ALT/SGPT) 30 U/L (14-59) Alkaline Phosphatase 309 U/L (46-116) Troponin I Quantitative 0.186 ng/mL (0.000-0.055) Total Protein 6.6 g/dL (6.4-8.2) Albumin 2.3 g/dL (3.4-5.0) Albumin/Globulin Ratio 0.5 (1.0-1.7) Procalcitonin 2.04 ng/mL (0.00-0.10) Assessment and Plan Assessmemt and Plan Problems Medical Problems: (1) Acute pancreatitis Status: Acute (2) Elevated troponin Status: Acute (3) Hypotension Status: Acute Comment Review of Relevant I have reviewed the following items chante (where applicable) has been applied. Labs Laboratory Tests Test 11/08/18 12:15 11/08/18 18:30 11/08/18 22:25 11/09/18 07:30 White Blood Count 16.1 x10^3/uL (4.0-11.0) 15.9 x10^3/uL (4.0-11.0) Red Blood Count 3.57 x10^6/uL (3.50-5.40) 3.82 x10^6/uL (3.50-5.40) Hemoglobin 11.3 g/dL (12.0-15.5) 12.1 g/dL (12.0-15.5) Hematocrit 34.7 % (36.0-47.0) 37.3 % (36.0-47.0) Mean Corpuscular Volume 97 fL (79-100) 98 fL (79-100) Mean Corpuscular Hemoglobin 32 pg (25-35) 32 pg (25-35) Mean Corpuscular Hemoglobin Concent 33 g/dL (31-37) 33 g/dL (31-37) Red Cell Distribution Width 19.5 % (11.5-14.5) 19.7 % (11.5-14.5) Platelet Count 77 x10^3/uL (140-400) 55 x10^3/uL (140-400) Neutrophils (%) (Auto) 90 % (31-73) 92 % (31-73) Lymphocytes (%) (Auto) 2 % (24-48) 1 % (24-48) Monocytes (%) (Auto) 7 % (0-9) 5 % (0-9) Eosinophils (%) (Auto) 1 % (0-3) 1 % (0-3) Basophils (%) (Auto) 0 % (0-3) 1 % (0-3) Neutrophils # (Auto) 14.6 x10^3/uL (1.8-7.7) 14.7 x10^3/uL (1.8-7.7) Lymphocytes # (Auto) 0.3 x10^3/uL (1.0-4.8) 0.2 x10^3/uL (1.0-4.8) Monocytes # (Auto) 1.1 x10^3/uL (0.0-1.1) 0.8 x10^3/uL (0.0-1.1) Eosinophils # (Auto) 0.1 x10^3/uL (0.0-0.7) 0.1 x10^3/uL (0.0-0.7) Basophils # (Auto) 0.0 x10^3/uL (0.0-0.2) 0.1 x10^3/uL (0.0-0.2) Segmented Neutrophils % 92 % (35-66) Band Neutrophils % 2 % (0-9) Lymphocytes % 5 % (24-48) Monocytes % 1 % (0-10) Platelet Estimate Decreased (ADEQUATE) Polychromasia Slight Anisocytosis Slight Sodium Level 131 mmol/L (136-145) 132 mmol/L (136-145) Potassium Level 3.1 mmol/L (3.5-5.1) 4.1 mmol/L (3.5-5.1) Chloride Level 95 mmol/L (98-107) 97 mmol/L (98-107) Carbon Dioxide Level 17 mmol/L (21-32) 14 mmol/L (21-32) Anion Gap 19 (6-14) 21 (6-14) Blood Urea Nitrogen 70 mg/dL (7-20) 72 mg/dL (7-20) Creatinine 7.3 mg/dL (0.6-1.0) 7.3 mg/dL (0.6-1.0) Estimated GFR (Cockcroft-Gault) 5.7 5.7 BUN/Creatinine Ratio 10 (6-20) 10 (6-20) Glucose Level 154 mg/dL (70-99) 99 mg/dL (70-99) Lactic Acid Level 3.9 mmol/L (0.4-2.0) 3.4 mmol/L (0.4-2.0) Calcium Level 9.1 mg/dL (8.5-10.1) 8.8 mg/dL (8.5-10.1) Magnesium Level 2.4 mg/dL (1.8-2.4) Total Bilirubin 1.9 mg/dL (0.2-1.0) 2.4 mg/dL (0.2-1.0) Aspartate Amino Transf (AST/SGOT) 38 U/L (15-37) 48 U/L (15-37) Alanine Aminotransferase (ALT/SGPT) 28 U/L (14-59) 30 U/L (14-59) Alkaline Phosphatase 290 U/L (46-116) 309 U/L (46-116) Troponin I Quantitative 0.075 ng/mL (0.000-0.055) 0.186 ng/mL (0.000-0.055) XW-Fjr-C-Type Natriuretic Peptide 6077 pg/mL (0-124) Total Protein 6.4 g/dL (6.4-8.2) 6.6 g/dL (6.4-8.2) Albumin 2.3 g/dL (3.4-5.0) 2.3 g/dL (3.4-5.0) Albumin/Globulin Ratio 0.6 (1.0-1.7) 0.5 (1.0-1.7) Lipase 9171 U/L (73-393) Glucose (Fingerstick) 136 mg/dL (70-99) Procalcitonin 2.04 ng/mL (0.00-0.10) Test 11/09/18 09:09 Glucose (Fingerstick) 78 mg/dL (70-99) Laboratory Tests Test 11/08/18 18:30 11/08/18 22:25 11/09/18 07:30 11/09/18 09:09 Lactic Acid Level 3.4 mmol/L (0.4-2.0) Glucose (Fingerstick) 136 mg/dL (70-99) 78 mg/dL (70-99) White Blood Count 15.9 x10^3/uL (4.0-11.0) Red Blood Count 3.82 x10^6/uL (3.50-5.40) Hemoglobin 12.1 g/dL (12.0-15.5) Hematocrit 37.3 % (36.0-47.0) Mean Corpuscular Volume 98 fL (79-100) Mean Corpuscular Hemoglobin 32 pg (25-35) Mean Corpuscular Hemoglobin Concent 33 g/dL (31-37) Red Cell Distribution Width 19.7 % (11.5-14.5) Platelet Count 55 x10^3/uL (140-400) Neutrophils (%) (Auto) 92 % (31-73) Lymphocytes (%) (Auto) 1 % (24-48) Monocytes (%) (Auto) 5 % (0-9) Eosinophils (%) (Auto) 1 % (0-3) Basophils (%) (Auto) 1 % (0-3) Neutrophils # (Auto) 14.7 x10^3/uL (1.8-7.7) Lymphocytes # (Auto) 0.2 x10^3/uL (1.0-4.8) Monocytes # (Auto) 0.8 x10^3/uL (0.0-1.1) Eosinophils # (Auto) 0.1 x10^3/uL (0.0-0.7) Basophils # (Auto) 0.1 x10^3/uL (0.0-0.2) Sodium Level 132 mmol/L (136-145) Potassium Level 4.1 mmol/L (3.5-5.1) Chloride Level 97 mmol/L (98-107) Carbon Dioxide Level 14 mmol/L (21-32) Anion Gap 21 (6-14) Blood Urea Nitrogen 72 mg/dL (7-20) Creatinine 7.3 mg/dL (0.6-1.0) Estimated GFR (Cockcroft-Gault) 5.7 BUN/Creatinine Ratio 10 (6-20) Glucose Level 99 mg/dL (70-99) Calcium Level 8.8 mg/dL (8.5-10.1) Total Bilirubin 2.4 mg/dL (0.2-1.0) Aspartate Amino Transf (AST/SGOT) 48 U/L (15-37) Alanine Aminotransferase (ALT/SGPT) 30 U/L (14-59) Alkaline Phosphatase 309 U/L (46-116) Troponin I Quantitative 0.186 ng/mL (0.000-0.055) Total Protein 6.6 g/dL (6.4-8.2) Albumin 2.3 g/dL (3.4-5.0) Albumin/Globulin Ratio 0.5 (1.0-1.7) Procalcitonin 2.04 ng/mL (0.00-0.10) Medications Current Medications Sodium Chloride (NORMAL SALINE FLUSH for STERILE FIELD) 10 ml [employer] ONCE .ROUTE ; Start 11/08/18 at 11:04; Stop 7/20/19 at 11:05; Status DC Ondansetron HCl (Zofran) 4 mg 1X ONCE IV Last administered on 11/08/18at 12:56; Start 11/08/18 at 11:45; Stop 11/08/18 at 11:46; Status DC Sodium Chloride 500 ml @ 500 mls/hr 1X ONCE IV Last administered on 11/08/18at 13:15; Start 11/08/18 at 13:15; Stop 11/08/18 at 14:14; Status DC Fentanyl Citrate (Fentanyl 2ml Vial) 25 mcg 1X ONCE IV Last administered on 11/08/18at 14:12; Start 11/08/18 at 13:45; Stop 11/08/18 at 13:46; Status DC Piperacillin Sod/ Tazobactam Sod 3.375 gm/Sodium Chloride 50 ml @ 100 mls/hr 1X ONCE IV Last administered on 11/08/18at 16:55; Start 11/08/18 at 15:00; Stop 11/08/18 at 15:29; Status DC Vancomycin HCl (Vanco Per Pharmacy) 1 each PRN DAILY PRN MC SEE COMMENTS Last administered on 11/09/18at 08:13; Start 11/08/18 at 15:45; Stop 11/09/18 at 08:35; Status DC Vancomycin HCl 1.75 gm/Sodium Chloride 500 ml @ 250 mls/hr 1X ONCE IV Last administered on 11/08/18at 17:44; Start 11/08/18 at 16:00; Stop 11/08/18 at 17:59; Status DC Norepinephrine Bitartrate 250 ml @ 13.438 mls/ hr CONT PRN IV SEE I/O RECORD Last administered on 11/09/18at 02:53; Start 11/08/18 at 16:45 Piperacillin Sod/ Tazobactam Sod (Zosyn Per Pharmacy) 1 each PRN DAILY PRN MC SEE COMMENTS; Start 11/08/18 at 17:30; Stop 11/09/18 at 08:39; Status DC Piperacillin Sod/ Tazobactam Sod 2.25 gm/Sodium Chloride 50 ml @ 100 mls/hr Q8HRS IV Last administered on 11/09/18at 05:49; Start 11/08/18 at 18:00; Stop 11/09/18 at 08:35; Status DC Fentanyl Citrate (Fentanyl 2ml Vial) 50 mcg PRN Q3HRS PRN IV PAIN Last administered on 11/09/18at 08:49; Start 11/08/18 at 18:00 Ondansetron HCl (Zofran) 4 mg PRN Q4HRS PRN IV NAUSEA/VOMITING Last administered on 11/09/18at 07:45; Start 11/08/18 at 18:00 Famotidine (Pepcid Vial) 20 mg QHS IVP Last administered on 11/08/18at 21:02; Start 11/08/18 at 21:00; Stop 11/09/18 at 08:49; Status DC Vancomycin HCl (Vancomycin Random Level) 1 each 1X ONCE MC ; Start 11/10/18 at 06:00; Stop 11/10/18 at 06:00; Status DC Meropenem 500 mg/ Sodium Chloride 50 ml @ 100 mls/hr DAILY IV Last administered on 11/09/18at 08:57; Start 11/09/18 at 09:00 Albuterol Sulfate (Ventolin Neb Soln) 2.5 mg PRN Q6HRS PRN NEB SHORTNESS OF BREATH; Start 11/09/18 at 08:45 Clotrimazole (Mycelex) 10 mg BID MM Last administered on 11/09/18at 09:04; Start 11/09/18 at 09:00 Diphenhydramine HCl (Benadryl) 25 mg PRN Q6HRS PRN PO ITCHING; Start 11/09/18 at 08:45 Insulin Glargine (Lantus) 40 units DAILY08 SQ ; Start 11/09/18 at 09:00 Lactobacillus Rhamnosus (Culturelle) 1 cap BID PO Last administered on 11/09/18at 09:04; Start 11/09/18 at 09:00 Nystatin (Mycostatin) 1 efe BID TP Last administered on 11/09/18at 09:04; Start 11/09/18 at 09:00 Phenyleph/Shark Oil/Min Oil/Petrol (Preparation H) 1 efe PRN QID PRN RC RECTAL PAIN; Start 11/09/18 at 08:45 Rifaximin (Xifaxan) 550 mg BID PO Last administered on 11/09/18at 09:04; Start 11/09/18 at 09:00 Benzonatate (Tessalon Perle) 100 mg PRN Q6HRS PRN PO COUGH; Start 11/09/18 at 09:00 Calcium Acetate (Phoslo) 667 mg TIDWMEALS PO ; Start 11/09/18 at 12:00 Levothyroxine Sodium (Synthroid) 300 mcg DAILY06 PO Last administered on 11/09/18at 09:04; Start 11/09/18 at 09:00 Midodrine (Proamatine) 10 mg [id number] PO Last administered on 11/09/18at 09:38; Start 11/09/18 at 09:38 Pantoprazole Sodium (Protonix) 40 mg DAILYAC PO Last administered on 11/09/18at 09:04; Start 11/09/18 at 09:00 Simethicone (Gas-X) 80 mg PRN AFTMEALHC PRN PO GAS / BLOATING; Start 11/09/18 at 09:45 Albumin Human 100 ml @ 100 mls/hr 1X ONCE IV ; Start 11/09/18 at 12:00; Stop 11/09/18 at 12:59 Active Scripts Active Culturelle (Lactobacillus Rhamnosus Gg) 1 Each Cap.sprink 1 Cap PO BID 14 Days Major-Prep Hemorrhoidal Oint (Phenyleph/Mineral Oil/Petrolat) 57 Gm Oint.appl 1 Efe RC PRN QID PRN 14 Days Nystatin 15 Gm Oint...g. 1 Efe TP BID 30 Days Clotrimazole 10 Mg Vielka 10 Mg MM BID 10 Days Benzonatate 100 Mg Capsule 100 Mg PO PRN Q6HRS PRN 10 Days Proair Hfa (Albuterol Sulfate) 8.5 Gm Hfa.aer.ad 2.5 Mg NEB PRN Q6HRS PRN 30 Days Midodrine Hcl 5 Mg Tablet 10 Mg PO [id number] 14 Days Reported Benadryl (Diphenhydramine Hcl) 25 Mg Capsule 25 Mg PO PRN Q6HRS PRN Calcium Acetate 667 Mg Tablet 667 Mg PO TIDWMEALS Dialyvite Tablet (Folic Acid/Vitamin B Comp W-C) 1 Each Tablet 1 Each PO QMWF Omeprazole 40 Mg Capsule.dr 1 Cap PO DAILY Xifaxan (Rifaximin) 550 Mg Tablet 1 Tab PO BID Fusion Plus Capsule (Iron,Fum&Ps/Fa/Vit B&C#18/L.ca) 1 Each Capsule 1 Each PO DAILY Albuterol Sulfate Conc Neb Soln (Albuterol Sulfate) 2.5 Mg/0.5 Ml Vial.neb 2.5 Mg NEB Q6HRS PRN Lactulose 20 Gm/30 Ml Solution 20 Gm PO TID Lantus Solostar (Insulin Glargine,Hum.rec.anlog) 100 Unit/1 Ml Insuln.pen 40 Units SQ DAILY08 SSI Calcium + Vitamin D Tablet (Calcium Carbonate/Vitamin D3) 1 Each Tablet 1 Each PO DAILY Novolog Flexpen (Insulin Aspart) 100 Unit/1 Ml Insuln.pen 0 SQ TIDAC 0-149: 0 units 150-199: 2 units 200-249: 4 units 250-299: 6 units 300-349: 8 units 350-399: 10 units >400: Call Synthroid (Levothyroxine Sodium) 25 Mcg Tablet 300 Mcg PO DAILY Flovent 110MCG Hfa (Fluticasone Propionate) 12 Gm Aer.w.adap 1 Puff IH DAILY Vitals/I & O Vital Sign - Last 24 Hours 11/08/18 11/08/18 11/08/18 11/08/18 13:40 14:05 14:12 14:50 Pulse 90 84 90 Resp 18 B/P (MAP) 89/48 (62) 93/50 (64) 80/42 (55) Pulse Ox 93 96 95 O2 Delivery Nasal Cannula Nasal Cannula Nasal Cannula O2 Flow Rate 2.0 2.0 2.0 11/08/18 11/08/18 11/08/18 11/08/18 15:25 16:25 16:55 17:15 Temp 97.3 97.3 Pulse 51 94 78 92 Resp 20 B/P (MAP) 90/45 (60) 77/43 (54) 103/58 (73) 94/52 (66) Pulse Ox 94 97 94 96 O2 Delivery Nasal Cannula Nasal Cannula Nasal Cannula Room Air O2 Flow Rate 2.0 2.0 2.0 11/08/18 11/08/18 11/08/18 11/08/18 17:30 17:33 17:45 18:00 Pulse 94 92 100 Resp 20 20 20 B/P (MAP) 69/50 (56) 91/33 (52) 53/35 (41) Pulse Ox 96 94 96 96 O2 Delivery Room Air Room Air Room Air O2 Flow Rate 2.0 11/08/18 11/08/18 11/08/18 11/08/18 18:04 18:15 18:30 18:39 Pulse 108 120 92 Resp 20 20 20 B/P (MAP) 82/40 (54) 90/52 (65) 82/40 (54) Pulse Ox 94 96 96 96 O2 Delivery Room Air Room Air Room Air O2 Flow Rate 2.0 11/08/18 11/08/18 11/08/18 11/08/18 19:15 19:45 20:00 20:00 Pulse 120 118 116 Resp 20 20 20 B/P (MAP) 104/51 (68) 74/44 (54) 73/37 (49) Pulse Ox 93 95 89 O2 Delivery Room Air Room Air Nasal Cannula O2 Flow Rate 2.0 11/08/18 11/08/18 11/08/18 11/08/18 20:15 20:30 20:45 21:00 Temp 97.3 97.3 Pulse 114 114 110 112 Resp 20 20 20 20 B/P (MAP) 106/46 (66) 117/49 (71) 115/46 (69) 110/47 (68) Pulse Ox 97 98 98 98 O2 Delivery Nasal Cannula Nasal Cannula Nasal Cannula Nasal Cannula O2 Flow Rate 2.0 2.0 2.0 2.0 11/08/1811/08/11/08/11/09/18 21:03 22:08 23:11 00:01 Pulse 104 107 Resp 18 18 B/P (MAP) 110/44 (66) 106/42 (63) Pulse Ox 96 98 96 O2 Delivery Nasal Cannula Nasal Cannula Nasal Cannula Nasal Cannula O2 Flow Rate 2.0 2.0 2.0 2.0 11/09/18 11/09/18 11/09/18 11/09/18 00:01 01:00 02:00 02:59 Pulse 114 118 113 118 Resp 22 22 34 20 B/P (MAP) 107/44 (65) 100/51 (67) 84/41 (55) 97/43 (61) Pulse Ox 95 95 96 95 O2 Delivery Nasal Cannula Nasal Cannula O2 Flow Rate 2.0 2.0 2.0 11/09/18 11/09/18 11/09/18 721/19 03:15 04:00 04:00 05:04 Pulse 117 115 Resp 20 20 B/P (MAP) 82/36 (51) 84/34 (51) Pulse Ox 95 96 95 O2 Delivery Nasal Cannula Nasal Cannula Nasal Cannula Nasal Cannula O2 Flow Rate 2.0 2.0 2.0 11/09/18 11/09/18 11/09/18 11/09/18 05:46 06:00 07:00 08:00 Pulse 121 114 Resp 20 20 B/P (MAP) 85/29 (47) 90/42 (58) Pulse Ox 95 O2 Delivery Nasal Cannula Nasal Cannula O2 Flow Rate 2.0 2.0 2.0 2.0 11/09/18 11/09/18 11/09/18 11/09/18 08:00 08:46 08:49 09:00 Temp 98.2 98.2 Pulse 111 115 Resp 20 18 18 20 B/P (MAP) 88/52 (64) 72/39 (50) Pulse Ox 98 98 O2 Delivery Nasal Cannula Nasal Cannula O2 Flow Rate 2.0 2.0 2.0 2.0 11/09/18 11/09/18 11/09/18 11/09/18 09:16 09:38 10:00 11:00 Pulse 111 102 98 Resp 18 20 20 B/P (MAP) 72/39 71/27 (42) 61/35 (44) Pulse Ox 98 O2 Delivery Nasal Cannula O2 Flow Rate 2.0 2.0 2.0 11/09/18 11/09/18 12:00 12:00 Temp 98.0 98.0 Pulse 115 Resp 20 B/P (MAP) 64/29 (41) O2 Delivery Nasal Cannula O2 Flow Rate 2.0 2.0 Intake and Output 11/08/18 11/08/18 11/09/18 14:59 22:59 06:59 Intake Total 800 ml 250 ml Output Total 0 ml 0 ml Balance 800 ml 250 ml BENJAMIN POOL MD Nov 09, 2018 12:47
--- NOTE | 2018-11-09 13:35 | PDOC ---
G I PROGRESS NOTE Reason for Follow-up Cirrhosis/pancreatitis Subjective Pain unchanged Physical Exam Lungs decreased BS CV S1 S2 ABD distended, hypoactive BS Review of Relevant I have reviewed the following items chante (where applicable) has been applied. Labs Laboratory Tests Test 11/08/18 12:15 11/08/18 18:30 11/08/18 22:25 11/09/18 07:30 White Blood Count 16.1 x10^3/uL (4.0-11.0) 15.9 x10^3/uL (4.0-11.0) Red Blood Count 3.57 x10^6/uL (3.50-5.40) 3.82 x10^6/uL (3.50-5.40) Hemoglobin 11.3 g/dL (12.0-15.5) 12.1 g/dL (12.0-15.5) Hematocrit 34.7 % (36.0-47.0) 37.3 % (36.0-47.0) Mean Corpuscular Volume 97 fL (79-100) 98 fL (79-100) Mean Corpuscular Hemoglobin 32 pg (25-35) 32 pg (25-35) Mean Corpuscular Hemoglobin Concent 33 g/dL (31-37) 33 g/dL (31-37) Red Cell Distribution Width 19.5 % (11.5-14.5) 19.7 % (11.5-14.5) Platelet Count 77 x10^3/uL (140-400) 55 x10^3/uL (140-400) Neutrophils (%) (Auto) 90 % (31-73) 92 % (31-73) Lymphocytes (%) (Auto) 2 % (24-48) 1 % (24-48) Monocytes (%) (Auto) 7 % (0-9) 5 % (0-9) Eosinophils (%) (Auto) 1 % (0-3) 1 % (0-3) Basophils (%) (Auto) 0 % (0-3) 1 % (0-3) Neutrophils # (Auto) 14.6 x10^3/uL (1.8-7.7) 14.7 x10^3/uL (1.8-7.7) Lymphocytes # (Auto) 0.3 x10^3/uL (1.0-4.8) 0.2 x10^3/uL (1.0-4.8) Monocytes # (Auto) 1.1 x10^3/uL (0.0-1.1) 0.8 x10^3/uL (0.0-1.1) Eosinophils # (Auto) 0.1 x10^3/uL (0.0-0.7) 0.1 x10^3/uL (0.0-0.7) Basophils # (Auto) 0.0 x10^3/uL (0.0-0.2) 0.1 x10^3/uL (0.0-0.2) Segmented Neutrophils % 92 % (35-66) Band Neutrophils % 2 % (0-9) Lymphocytes % 5 % (24-48) Monocytes % 1 % (0-10) Platelet Estimate Decreased (ADEQUATE) Polychromasia Slight Anisocytosis Slight Sodium Level 131 mmol/L (136-145) 132 mmol/L (136-145) Potassium Level 3.1 mmol/L (3.5-5.1) 4.1 mmol/L (3.5-5.1) Chloride Level 95 mmol/L (98-107) 97 mmol/L (98-107) Carbon Dioxide Level 17 mmol/L (21-32) 14 mmol/L (21-32) Anion Gap 19 (6-14) 21 (6-14) Blood Urea Nitrogen 70 mg/dL (7-20) 72 mg/dL (7-20) Creatinine 7.3 mg/dL (0.6-1.0) 7.3 mg/dL (0.6-1.0) Estimated GFR (Cockcroft-Gault) 5.7 5.7 BUN/Creatinine Ratio 10 (6-20) 10 (6-20) Glucose Level 154 mg/dL (70-99) 99 mg/dL (70-99) Lactic Acid Level 3.9 mmol/L (0.4-2.0) 3.4 mmol/L (0.4-2.0) Calcium Level 9.1 mg/dL (8.5-10.1) 8.8 mg/dL (8.5-10.1) Magnesium Level 2.4 mg/dL (1.8-2.4) Total Bilirubin 1.9 mg/dL (0.2-1.0) 2.4 mg/dL (0.2-1.0) Aspartate Amino Transf (AST/SGOT) 38 U/L (15-37) 48 U/L (15-37) Alanine Aminotransferase (ALT/SGPT) 28 U/L (14-59) 30 U/L (14-59) Alkaline Phosphatase 290 U/L (46-116) 309 U/L (46-116) Troponin I Quantitative 0.075 ng/mL (0.000-0.055) 0.186 ng/mL (0.000-0.055) YA-Hfe-X-Type Natriuretic Peptide 6077 pg/mL (0-124) Total Protein 6.4 g/dL (6.4-8.2) 6.6 g/dL (6.4-8.2) Albumin 2.3 g/dL (3.4-5.0) 2.3 g/dL (3.4-5.0) Albumin/Globulin Ratio 0.6 (1.0-1.7) 0.5 (1.0-1.7) Lipase 9171 U/L (73-393) Glucose (Fingerstick) 136 mg/dL (70-99) Procalcitonin 2.04 ng/mL (0.00-0.10) Test 11/09/18 09:09 Glucose (Fingerstick) 78 mg/dL (70-99) Laboratory Tests Test 11/08/18 18:30 11/08/18 22:25 11/09/18 07:30 11/09/18 09:09 Lactic Acid Level 3.4 mmol/L (0.4-2.0) Glucose (Fingerstick) 136 mg/dL (70-99) 78 mg/dL (70-99) White Blood Count 15.9 x10^3/uL (4.0-11.0) Red Blood Count 3.82 x10^6/uL (3.50-5.40) Hemoglobin 12.1 g/dL (12.0-15.5) Hematocrit 37.3 % (36.0-47.0) Mean Corpuscular Volume 98 fL (79-100) Mean Corpuscular Hemoglobin 32 pg (25-35) Mean Corpuscular Hemoglobin Concent 33 g/dL (31-37) Red Cell Distribution Width 19.7 % (11.5-14.5) Platelet Count 55 x10^3/uL (140-400) Neutrophils (%) (Auto) 92 % (31-73) Lymphocytes (%) (Auto) 1 % (24-48) Monocytes (%) (Auto) 5 % (0-9) Eosinophils (%) (Auto) 1 % (0-3) Basophils (%) (Auto) 1 % (0-3) Neutrophils # (Auto) 14.7 x10^3/uL (1.8-7.7) Lymphocytes # (Auto) 0.2 x10^3/uL (1.0-4.8) Monocytes # (Auto) 0.8 x10^3/uL (0.0-1.1) Eosinophils # (Auto) 0.1 x10^3/uL (0.0-0.7) Basophils # (Auto) 0.1 x10^3/uL (0.0-0.2) Sodium Level 132 mmol/L (136-145) Potassium Level 4.1 mmol/L (3.5-5.1) Chloride Level 97 mmol/L (98-107) Carbon Dioxide Level 14 mmol/L (21-32) Anion Gap 21 (6-14) Blood Urea Nitrogen 72 mg/dL (7-20) Creatinine 7.3 mg/dL (0.6-1.0) Estimated GFR (Cockcroft-Gault) 5.7 BUN/Creatinine Ratio 10 (6-20) Glucose Level 99 mg/dL (70-99) Calcium Level 8.8 mg/dL (8.5-10.1) Total Bilirubin 2.4 mg/dL (0.2-1.0) Aspartate Amino Transf (AST/SGOT) 48 U/L (15-37) Alanine Aminotransferase (ALT/SGPT) 30 U/L (14-59) Alkaline Phosphatase 309 U/L (46-116) Troponin I Quantitative 0.186 ng/mL (0.000-0.055) Total Protein 6.6 g/dL (6.4-8.2) Albumin 2.3 g/dL (3.4-5.0) Albumin/Globulin Ratio 0.5 (1.0-1.7) Procalcitonin 2.04 ng/mL (0.00-0.10) Medications Current Medications Sodium Chloride (NORMAL SALINE FLUSH for STERILE FIELD) 10 ml STK-MED ONCE .ROUTE ; Start 11/08/18 at 11:04; Stop 11/08/18 at 11:05; Status DC Ondansetron HCl (Zofran) 4 mg 1X ONCE IV Last administered on 11/08/18at 12:56; Start 11/08/18 at 11:45; Stop 11/08/18 at 11:46; Status DC Sodium Chloride 500 ml @ 500 mls/hr 1X ONCE IV Last administered on 11/08/18at 13:15; Start 11/08/18 at 13:15; Stop 11/08/18 at 14:14; Status DC Fentanyl Citrate (Fentanyl 2ml Vial) 25 mcg 1X ONCE IV Last administered on 11/08/18at 14:12; Start 11/08/18 at 13:45; Stop 11/08/18 at 13:46; Status DC Piperacillin Sod/ Tazobactam Sod 3.375 gm/Sodium Chloride 50 ml @ 100 mls/hr 1X ONCE IV Last administered on 11/08/18at 16:55; Start 11/08/18 at 15:00; Stop 11/08/18 at 15:29; Status DC Vancomycin HCl (Vanco Per Pharmacy) 1 each PRN DAILY PRN MC SEE COMMENTS Last administered on 11/09/18at 08:13; Start 11/08/18 at 15:45; Stop 11/09/18 at 08:35; Status DC Vancomycin HCl 1.75 gm/Sodium Chloride 500 ml @ 250 mls/hr 1X ONCE IV Last administered on 11/08/18at 17:44; Start 11/08/18 at 16:00; Stop 11/08/18 at 17:59; Status DC Norepinephrine Bitartrate 250 ml @ 13.438 mls/ hr CONT PRN IV SEE I/O RECORD Last administered on 11/09/18at 02:53; Start 11/08/18 at 16:45 Piperacillin Sod/ Tazobactam Sod (Zosyn Per Pharmacy) 1 each PRN DAILY PRN MC SEE COMMENTS; Start 11/08/18 at 17:30; Stop 11/09/18 at 08:39; Status DC Piperacillin Sod/ Tazobactam Sod 2.25 gm/Sodium Chloride 50 ml @ 100 mls/hr Q8HRS IV Last administered on 11/09/18at 05:49; Start 11/08/18 at 18:00; Stop 11/09/18 at 08:35; Status DC Fentanyl Citrate (Fentanyl 2ml Vial) 50 mcg PRN Q3HRS PRN IV PAIN Last administered on 11/09/18at 08:49; Start 11/08/18 at 18:00 Ondansetron HCl (Zofran) 4 mg PRN Q4HRS PRN IV NAUSEA/VOMITING Last administered on 11/09/18at 07:45; Start 11/08/18 at 18:00 Famotidine (Pepcid Vial) 20 mg QHS IVP Last administered on 11/08/18at 21:02; Start 11/08/18 at 21:00; Stop 11/09/18 at 08:49; Status DC Vancomycin HCl (Vancomycin Random Level) 1 each 1X ONCE MC ; Start 11/10/18 at 06:00; Stop 11/10/18 at 06:00; Status DC Meropenem 500 mg/ Sodium Chloride 50 ml @ 100 mls/hr DAILY IV Last administered on 11/09/18at 08:57; Start 11/09/18 at 09:00 Albuterol Sulfate (Ventolin Neb Soln) 2.5 mg PRN Q6HRS PRN NEB SHORTNESS OF BREATH; Start 11/09/18 at 08:45 Clotrimazole (Mycelex) 10 mg BID MM Last administered on 11/09/18at 09:04; Start 11/09/18 at 09:00 Diphenhydramine HCl (Benadryl) 25 mg PRN Q6HRS PRN PO ITCHING; Start 11/09/18 at 08:45 Insulin Glargine (Lantus) 40 units DAILY08 SQ ; Start 11/09/18 at 09:00 Lactobacillus Rhamnosus (Culturelle) 1 cap BID PO Last administered on 11/09/18at 09:04; Start 11/09/18 at 09:00 Nystatin (Mycostatin) 1 efe BID TP Last administered on 11/09/18at 09:04; Start 11/09/18 at 09:00 Phenyleph/Shark Oil/Min Oil/Petrol (Preparation H) 1 efe PRN QID PRN RC RECTAL PAIN; Start 11/09/18 at 08:45 Rifaximin (Xifaxan) 550 mg BID PO Last administered on 11/09/18at 09:04; Start 11/09/18 at 09:00 Benzonatate (Tessalon Perle) 100 mg PRN Q6HRS PRN PO COUGH; Start 11/09/18 at 09:00 Calcium Acetate (Phoslo) 667 mg TIDWMEALS PO ; Start 11/09/18 at 12:00 Levothyroxine Sodium (Synthroid) 300 mcg DAILY06 PO Last administered on 11/09/18at 09:04; Start 11/09/18 at 09:00 Midodrine (Proamatine) 10 mg [id number] PO Last administered on 11/09/18at 12:48; Start 11/09/18 at 09:38 Pantoprazole Sodium (Protonix) 40 mg DAILYAC PO Last administered on 11/09/18at 09:04; Start 11/09/18 at 09:00 Simethicone (Gas-X) 80 mg PRN AFTMEALHC PRN PO GAS / BLOATING Last administered on 11/09/18at 12:47; Start 11/09/18 at 09:45 Albumin Human 100 ml @ 100 mls/hr 1X ONCE IV Last administered on 11/09/18at 12:47; Start 11/09/18 at 12:00; Stop 11/09/18 at 12:59; Status DC Active Scripts Active Culturelle (Lactobacillus Rhamnosus Gg) 1 Each Cap.sprink 1 Cap PO BID 14 Days Major-Prep Hemorrhoidal Oint (Phenyleph/Mineral Oil/Petrolat) 57 Gm Oint.appl 1 Efe RC PRN QID PRN 14 Days Nystatin 15 Gm Oint...g. 1 Efe TP BID 30 Days Clotrimazole 10 Mg Vielka 10 Mg MM BID 10 Days Benzonatate 100 Mg Capsule 100 Mg PO PRN Q6HRS PRN 10 Days Proair Hfa (Albuterol Sulfate) 8.5 Gm Hfa.aer.ad 2.5 Mg NEB PRN Q6HRS PRN 30 Days Midodrine Hcl 5 Mg Tablet 10 Mg PO [id number] 14 Days Reported Benadryl (Diphenhydramine Hcl) 25 Mg Capsule 25 Mg PO PRN Q6HRS PRN Calcium Acetate 667 Mg Tablet 667 Mg PO TIDWMEALS Dialyvite Tablet (Folic Acid/Vitamin B Comp W-C) 1 Each Tablet 1 Each PO QMWF Omeprazole 40 Mg Capsule. 1 Cap PO DAILY Xifaxan (Rifaximin) 550 Mg Tablet 1 Tab PO BID Fusion Plus Capsule (Iron,Fum&Ps/Fa/Vit B&C#18/L.ca) 1 Each Capsule 1 Each PO DAILY Albuterol Sulfate Conc Neb Soln (Albuterol Sulfate) 2.5 Mg/0.5 Ml Vial.neb 2.5 Mg NEB Q6HRS PRN Lactulose 20 Gm/30 Ml Solution 20 Gm PO TID Lantus Solostar (Insulin Glargine,Hum.rec.anlog) 100 Unit/1 Ml Insuln.pen 40 Units SQ DAILY08 SSI Calcium + Vitamin D Tablet (Calcium Carbonate/Vitamin D3) 1 Each Tablet 1 Each PO DAILY Novolog Flexpen (Insulin Aspart) 100 Unit/1 Ml Insuln.pen 0 SQ TIDAC 0-149: 0 units 150-199: 2 units 200-249: 4 units 250-299: 6 units 300-349: 8 units 350-399: 10 units >400: Call Synthroid (Levothyroxine Sodium) 25 Mcg Tablet 300 Mcg PO DAILY Flovent 110MCG Hfa (Fluticasone Propionate) 12 Gm Aer.w.adap 1 Puff IH DAILY Vitals/I & O Vital Sign - Last 24 Hours 11/08/18 11/08/18 11/08/18 11/08/18 13:40 14:05 14:12 14:50 Pulse 90 84 90 Resp 18 B/P (MAP) 89/48 (62) 93/50 (64) 80/42 (55) Pulse Ox 93 96 95 O2 Delivery Nasal Cannula Nasal Cannula Nasal Cannula O2 Flow Rate 2.0 2.0 2.0 11/08/18 11/08/18 11/08/18 11/08/18 15:25 16:25 16:55 17:15 Temp 97.3 97.3 Pulse 51 94 78 92 Resp 20 B/P (MAP) 90/45 (60) 77/43 (54) 103/58 (73) 94/52 (66) Pulse Ox 94 97 94 96 O2 Delivery Nasal Cannula Nasal Cannula Nasal Cannula Room Air O2 Flow Rate 2.0 2.0 2.0 11/08/1811/08/11/08/11/08/18 17:30 17:33 17:45 18:00 Pulse 94 92 100 Resp 20 20 20 B/P (MAP) 69/50 (56) 91/33 (52) 53/35 (41) Pulse Ox 96 94 96 96 O2 Delivery Room Air Room Air Room Air O2 Flow Rate 2.0 11/08/18 11/08/18 11/08/18 11/08/18 18:04 18:15 18:30 18:39 Pulse 108 120 92 Resp 20 20 20 B/P (MAP) 82/40 (54) 90/52 (65) 82/40 (54) Pulse Ox 94 96 96 96 O2 Delivery Room Air Room Air Room Air O2 Flow Rate 2.0 11/08/1811/08/11/08/11/08/18 19:15 19:45 20:00 20:00 Pulse 120 118 116 Resp 20 20 20 B/P (MAP) 104/51 (68) 74/44 (54) 73/37 (49) Pulse Ox 93 95 89 O2 Delivery Room Air Room Air Nasal Cannula O2 Flow Rate 2.0 11/08/18 11/08/18 11/08/18 11/08/18 20:15 20:30 20:45 21:00 Temp 97.3 97.3 Pulse 114 114 110 112 Resp 20 20 20 20 B/P (MAP) 106/46 (66) 117/49 (71) 115/46 (69) 110/47 (68) Pulse Ox 97 98 98 98 O2 Delivery Nasal Cannula Nasal Cannula Nasal Cannula Nasal Cannula O2 Flow Rate 2.0 2.0 2.0 2.0 11/08/18 11/08/1811/08/11/09/19 21:03 22:08 23:11 00:01 Pulse 104 107 Resp 18 18 B/P (MAP) 110/44 (66) 106/42 (63) Pulse Ox 96 98 96 O2 Delivery Nasal Cannula Nasal Cannula Nasal Cannula Nasal Cannula O2 Flow Rate 2.0 2.0 2.0 2.0 11/09/18 11/09/18 11/09/18 11/09/18 00:01 01:00 02:00 02:59 Pulse 114 118 113 118 Resp 22 22 34 20 B/P (MAP) 107/44 (65) 100/51 (67) 84/41 (55) 97/43 (61) Pulse Ox 95 95 96 95 O2 Delivery Nasal Cannula Nasal Cannula O2 Flow Rate 2.0 2.0 2.0 11/09/18 11/09/18 11/09/18 11/09/18 03:15 04:00 04:00 05:04 Pulse 117 115 Resp 20 20 B/P (MAP) 82/36 (51) 84/34 (51) Pulse Ox 95 96 95 O2 Delivery Nasal Cannula Nasal Cannula Nasal Cannula Nasal Cannula O2 Flow Rate 2.0 2.0 2.0 11/09/18 11/09/18 11/09/18 11/09/18 05:46 06:00 07:00 08:00 Pulse 121 114 Resp 20 20 B/P (MAP) 85/29 (47) 90/42 (58) Pulse Ox 95 O2 Delivery Nasal Cannula Nasal Cannula O2 Flow Rate 2.0 2.0 2.0 2.0 11/09/18 11/09/18 11/09/18 11/09/18 08:00 08:46 08:49 09:00 Temp 98.2 98.2 Pulse 111 115 Resp 20 18 18 20 B/P (MAP) 88/52 (64) 72/39 (50) Pulse Ox 98 98 O2 Delivery Nasal Cannula Nasal Cannula O2 Flow Rate 2.0 2.0 2.0 2.0 11/09/18 11/09/18 11/09/18 11/09/18 09:16 09:38 10:00 11:00 Pulse 111 102 98 Resp 18 20 20 B/P (MAP) 72/39 71/27 (42) 61/35 (44) Pulse Ox 98 O2 Delivery Nasal Cannula O2 Flow Rate 2.0 2.0 2.0 11/09/18 11/09/18 11/09/18 12:00 12:00 12:48 Temp 98.0 98.0 Pulse 115 96 Resp 20 B/P (MAP) 64/29 (41) 64/28 O2 Delivery Nasal Cannula O2 Flow Rate 2.0 2.0 Intake and Output 11/08/18 11/08/18 11/09/18 15:00 23:00 07:00 Intake Total 800 ml 250 ml Output Total 0 ml 0 ml Balance 800 ml 250 ml Problem List Problems Medical Problems: (1) Acute pancreatitis Status: Acute (2) Elevated troponin Status: Acute (3) Hypotension Status: Acute Assessment Pancreatitis- with hsitory of alcohol abuse, likely etiology . Medical therpay in viwe of poor prognosis. RUEL WILCOX MD Nov 09, 2018 13:35
[2018-11-09] MEDS ORDERED: DEXTROSE 50% 25 GM / 50ML DISP.SYRIN. IV ONE (16:16)
[2018-11-09] MEDS ORDERED: BISACODYL 5 MG TABLET.DR. PO PRN (16:30)
--- NOTE | 2018-11-09 22:11 | NUR ---
Pt refusing to wear oxygen and refusing to wear pulse oximeter. Pt stated that the "oxygen makes her nose itch" and pulse oximeter "cuts off her circulation". Pt educated on why she was wearing oxygen/pulse oximeter. Pt continues to refuse at this time. Pt also refused multiple medications so far this shift.
[2018-11-10] VITALS (35 sets, daily range): BP systolic 57–141; BP diastolic 28–68
[2018-11-10] MEDS: DEXTROSE 50% 25 GM / 50ML DISP.SYRIN. IV PRN ×2 (04:47→20:27)
--- NOTE | 2018-11-10 05:24 | NUR ---
Pts BG at 0450 was 42. 50 mL D50 administered per hypoglycemia protocol. Pt BG rechecked in 15 minutes, 148. Will pass on and continue to monitor.
[2018-11-10] MEDS: LEVOTHYROXINE 100 MCG TABLET PO SCH (05:59)
[2018-11-10] MEDS ORDERED: VANCOMYCIN RANDOM LEVEL. MC ONE (06:00)
[2018-11-10] MEDS: fentaNYL PF VIAL 100 MCG/2 ML VIAL IV PRN (06:07)
[2018-11-10] MEDS: MIDODRINE 5 MG TABLET PO SCH ×3 (07:00→15:21)
[2018-11-10] MEDS: NOREPINEPHRIN 8MG/250ML PREMIX 250 ML IV PRN ×4 (07:11→18:20)
[2018-11-10] MEDS: PANTOPRAZOLE 40 MG TABLET.DR. PO SCH (07:30)
[2018-11-10] MEDS: INSULIN GLARGINE 300 UNITS/3 ML INSULN.PEN. SQ SCH (08:00)
[2018-11-10] MEDS: CALCIUM ACETATE 667 MG CAPSULE PO SCH ×3 (08:00→08:51)
--- NOTE | 2018-11-10 08:29 | PDOC ---
Infectious Disease Note Subjective: Subjective pt lethargic hypotensive back on levophed hypothermic arousable, says has aches d/w RN ROS: ROS d/w rn Vital Signs: Vital Signs Vital Signs Date Time Temp Pulse Resp B/P (MAP) Pulse Ox O2 Delivery O2 Flow Rate FiO2 11/10/18 06:37 21 97 Nasal Cannula 2.0 11/10/18 06:15 85 84/30 (48) 11/10/18 04:00 96.1 96.1 Physical Exam: PHYSICAL EXAM GENERAL: Pt is lethargic,alert, awake,weak appearing HEENT: Pupils equally round and reactive. LUNGS: Diminished aeration. Left PleurX catheter. HEART: S1, S2. ABDOMEN: Obese, distended, soft, mildly tender. Bowel sounds present. EXTREMITIES: some mottling of skin lower torso SKIN: Warm without signs of rash. Both heels are boggy. She has dressings on her arms. NEUROLOGIC: Alert. Answers simple questions appropriately.moves all 4 ext, extremely weak Port-A-Cath without signs of any complications. HD catheter exposed as the dressing is off. No redness or drainage. Medications: Inpatient Meds: Current Medications Medications (Trade) Dose Ordered Sig/Emanuel Start Time Stop Time Status Last Admin Dose Admin Albumin Human 100 ml @ 100 mls/hr 1X ONCE 11/09/18 12:00 11/09/18 12:59 DC 11/09/18 12:47 100 MLS/HR Albuterol Sulfate (Ventolin Neb Soln) 2.5 mg PRN Q6HRS PRN 11/09/18 08:45 11/10/18 02:09 2.5 MG Benzonatate (Tessalon Perle) 100 mg PRN Q6HRS PRN 11/09/18 09:00 Bisacodyl (Dulcolax Tab) 5 mg PRN DAILY PRN 11/09/18 16:30 11/09/18 16:35 5 MG Calcium Acetate (Phoslo) 667 mg TIDWMEALS 11/09/18 12:00 Clotrimazole (Mycelex) 10 mg BID 11/09/18 09:00 11/09/18 21:00 10 MG Dextrose (Dextrose 50%-Water Syringe) 12.5 gm PRN Q15MIN PRN 11/09/18 17:00 11/10/18 04:47 25 GM Diphenhydramine HCl (Benadryl) 25 mg PRN Q6HRS PRN 11/09/18 08:45 Famotidine (Pepcid Vial) 20 mg QHS 11/08/18 21:00 11/09/18 08:49 DC 11/08/18 21:02 20 MG Fentanyl Citrate (Fentanyl 2ml Vial) 50 mcg PRN Q3HRS PRN 11/08/18 18:00 11/10/18 06:07 50 MCG Insulin Glargine (Lantus) 40 units DAILY08 11/09/18 09:00 Lactobacillus Rhamnosus (Culturelle) 1 cap BID 11/09/18 09:00 11/09/18 09:04 1 CAP Levothyroxine Sodium (Synthroid) 300 mcg DAILY06 11/09/18 09:00 11/10/18 05:59 300 MCG Meropenem 500 mg/ Sodium Chloride 50 ml @ 100 mls/hr DAILY 11/09/18 09:00 11/09/18 08:57 100 MLS/HR Midodrine (Proamatine) 10 mg [id number] 11/09/18 09:38 11/09/18 18:23 10 MG Norepinephrine Bitartrate 250 ml @ 13.438 mls/ hr CONT PRN 11/08/18 16:45 11/10/18 07:11 33.8 MLS/HR Nystatin (Mycostatin) 1 kiana BID 11/09/18 09:00 11/09/18 21:59 1 KIANA Ondansetron HCl (Zofran) 4 mg PRN Q4HRS PRN 11/08/18 18:00 11/09/18 16:42 4 MG Pantoprazole Sodium (Protonix) 40 mg DAILYAC 11/09/18 09:00 11/09/18 09:04 40 MG Phenyleph/Shark Oil/Min Oil/Petrol (Preparation H) 1 kiana PRN QID PRN 11/09/18 08:45 Piperacillin Sod/ Tazobactam Sod (Zosyn Per Pharmacy) 1 each PRN DAILY PRN 11/08/18 17:30 11/09/18 08:39 DC Piperacillin Sod/ Tazobactam Sod 2.25 gm/Sodium Chloride 50 ml @ 100 mls/hr Q8HRS 11/08/18 18:00 11/09/18 08:35 DC 11/09/18 05:49 100 MLS/HR Piperacillin Sod/ Tazobactam Sod 3.375 gm/Sodium Chloride 50 ml @ 100 mls/hr 1X ONCE 11/08/18 15:00 11/08/18 15:29 DC 11/08/18 16:55 100 MLS/HR Rifaximin (Xifaxan) 550 mg BID 11/09/18 09:00 11/09/18 09:04 550 MG Simethicone (Gas-X) 80 mg PRN AFTMEALHC PRN 11/09/18 09:45 11/09/18 12:47 80 MG Sodium Chloride 500 ml @ 500 mls/hr 1X ONCE 11/08/18 13:15 11/08/18 14:14 DC 11/08/18 13:15 500 MLS/HR Sodium Chloride (NORMAL SALINE FLUSH for STERILE FIELD) 10 ml STK-MED ONCE 11/08/18 11:04 11/08/18 11:05 DC Vancomycin HCl (Vanco Per Pharmacy) 1 each PRN DAILY PRN 11/08/18 15:45 11/09/18 08:35 DC 11/09/18 08:13 1 EACH Vancomycin HCl (Vancomycin Random Level) 1 each 1X ONCE 11/10/18 06:00 11/10/18 06:00 DC Vancomycin HCl 1.75 gm/Sodium Chloride 500 ml @ 250 mls/hr 1X ONCE 11/08/18 16:00 11/08/18 17:59 DC 11/08/18 17:44 250 MLS/HR Labs: Lab Laboratory Tests Test 11/09/18 09:09 11/09/18 16:13 11/09/18 18:14 11/09/18 22:18 Glucose (Fingerstick) 78 mg/dL (70-99) 45 mg/dL (70-99) 102 mg/dL (70-99) 98 mg/dL (70-99) Test 11/10/18 05:10 Glucose (Fingerstick) 148 mg/dL (70-99) Micro bc neg Objective: Assessment: 1. Sepsis with hypotension and lactic acidosis, now off Levophed. 2. Acute pancreatitis. 3. Leukocytosis. 4. Multiple antibiotic allergies. 5. Left pleural effusion, status post PleurX catheter placement on 10/28/2018. 6. Cholelithiasis.Hyperbilirubinemia 7. Nonalcoholic steatohepatitis with ascites. Last paracentesis was on 11/04/2018. 6. Chronic kidney disease, on hemodialysis. Tunneled HD catheter exposure. 7. Right abdominal gland nodule seen on CT. 8. History of vancomycin-resistant enterococci (penicillin-resistant) and Gram-negative urinary tract infections; Methicillin-resistant Staphylococcus aureus and Clostridium difficile infection. Plan: Plan of Care cont meropenem given healthcare exposure and h/o abx Vanc Last dose 11/08 restart vanco renal dosing add micafungin repeat bc f/u cultures and labs in am Local wound care and offloading of heels D/w nursing Critically ill FARHANA PANCHAL MD Nov 10, 2018 08:29
[2018-11-10] MEDS ORDERED: VANCOMYCIN PER PHARMACY MC PRN (08:30)
[2018-11-10 08:45] LABS: CALCIUM 9.4 mg/dL (8.5-10.1); CREATININE 7.8 mg/dL (0.6-1.0); GFR 5.2; POTASSIUM 4.5 mmol/L (3.5-5.1)
[2018-11-10] MEDS: CLOTRIMAZOLE 10 MG TROCHE. MM SCH ×2 (08:46→21:00)
[2018-11-10] MEDS: rifAXIMin 550 MG TABLET PO SCH ×2 (08:47→21:00)
[2018-11-10] MEDS: LACTOBACILLUS RHAMNOSUS GG 1 CAPSULE. PO SCH ×2 (08:47→21:00)
[2018-11-10] MEDS: NYSTATIN 100,000 UNIT/GM TOPICAL OINTMENT 15GM TUBE. TP SCH ×2 (08:50→21:00)
[2018-11-10] MEDS ORDERED: HYDROCORTISONE SOD SUCC/PF 100 MG/2 ML VIAL. IV ONE (09:00)
[2018-11-10] MEDS ORDERED: IV NORMAL SALINE 1000ML BAG 1,000 ML IV ONE ×2 (09:15→18:00)
[2018-11-10] MEDS: MEROPENEM 500 MG in IV NORMAL SALINE 50ML 50 ML IV SCH (09:16)
[2018-11-10 09:19] LABS: BASE EXCESS COOX -23 mmol/L (-3-3); CORRECTED PCO2 COOX 35 mmHg; CORRECTED PH COOX 6.97; CORRECTED PO2 COOX 50 mmHg; HCO3 COOX 8 mmol/L (21-28); METHEMOGLOBIN 0.3 % (0.0-1.9); PCO2 COOX 38 mmHg (35-46); PO2 COOX 56 mmHg (65-108)
[2018-11-10] MEDS ORDERED: SODIUM BICARB ADULT 8.4% 50 MEQ/50 ML DISP.SYRIN. ONE (09:21)
[2018-11-10 09:26] LABS: SAT O2 COOX 70 % (92-99)
[2018-11-10] MEDS ORDERED: SODIUM BICARB ADULT 8.4% 50 MEQ/50 ML DISP.SYRIN. IV ONE ×3 (09:30→20:30)
--- NOTE | 2018-11-10 09:35 | NUR ---
IP: Pt has a hx of (R) Kleb. pneumoniae resistant to Meropenem on 09/07/18. Pt to be in contact precautions until there are 2 negative urine cultures 7 days apart without antibiotics.
[2018-11-10] MEDS: MICAFUNGIN 100 MG in IV DEXTROSE 5% 100ML 100 ML IV SCH (10:13)
--- NOTE | 2018-11-10 10:16 | CONS ---
DATE OF CONSULTATION: PULMONARY CONSULTATION ATTENDING PHYSICIAN: Darion Infante MD REASON FOR CONSULTATION: Respiratory failure, shock and acute pancreatitis and abnormal chest x-ray with whiteout left lung. HISTORY OF PRESENT ILLNESS: The patient is a 63-year-old female, who is very well known to us. She has history of COPD, history of end-stage renal disease, on hemodialysis; history of type 2 diabetes, history of esophageal varices, history of alcoholism and history of recurrent left-sided pleural effusions, requiring PleurX catheter during her recent admission 2 weeks ago. She was brought into the hospital after she was complaining of upper abdominal pain. She has some nausea as well. She was noted to have highly increased lipase level of 9171, consistent with acute pancreatitis. The patient has also developed progressively severe metabolic acidosis. Her pH is now 6.95 with a pCO2 of 30 and a pO2 of 56, currently on 28% FIO2, with a bicarb of 8. Her chest x-ray showed completely shama out left lung related to pleural effusion. I have been asked to see her for further evaluation. Her CT abdomen and pelvis performed on 11/08 showed large left-sided pleural effusion; she has cirrhosis with evidence of portal venous hypertension and small ascites; there was evidence of cholelithiasis as well. I have been asked to see her for further evaluation. Currently, she is requiring 40 mcg of Levophed. However, she still mentating well. I discussed the advanced directives along with nursing staff and she wants everything to be done. I have spoken to her son as well. PAST MEDICAL HISTORY: Significant for history of COPD, history of type 2 diabetes, history of cirrhosis, history of alcoholism, history of end-stage renal disease, on hemodialysis, and history of recurrent left-sided pleural effusion, requiring PleurX catheter. SURGERIES: Hysterectomy, history of esophageal banding for esophageal varices. SOCIAL HISTORY: History of tobacco use and alcohol use. SYSTEM REVIEW: Ten-point systems obtained. Pertinent positives discussed in my history of present illness, otherwise noncontributory. All systems that were negative were reviewed as well. ALLERGIES: MULTIPLE; THEY ARE ALL LISTED IN OUR MRAD DONE AND ARE REVIEWED BY ME. CURRENT MEDICATIONS: Also reviewed, including hydrocortisone, she is on micafungin and meropenem. PHYSICAL EXAMINATION: GENERAL: She is still awake, following commands. VITAL SIGNS: On 40 mcg of Levophed, her blood pressure is in the 90s; pulse ox is 97% on 2 L. HEENT: Sclerae are nonicteric. NECK: Supple. LUNGS: With rhonchi anteriorly on the right side and diminished on the left. CARDIOVASCULAR: Regular rate and rhythm. ABDOMEN: Soft. EXTREMITIES: With bilateral pitting edema. LABORATORY DATA: Reviewed. BUN 70 and creatinine 7.3. Her lipase is 9171. Albumin is 2.3. Procalcitonin 2.04. Sodium 132 and potassium 4.1. White cell count 15.9, hemoglobin 12.1 and platelets are 55. IMPRESSION: 1. Septic shock, likely related to acute pancreatitis. 2. Acute pancreatitis, likely alcoholic. 3. Completely shama out left lung, likely related to recurrent left-sided pleural effusion, not so sure how long ago PleurX catheter was drained. She needs to have another drainage. 4. Leukocytosis. 5. Severe protein-calorie malnutrition. 6. History of cirrhosis with ascites. ESLD per GI 7. Underlying chronic obstructive pulmonary disease without exacerbation. 8. High risk for ARDS/ALI RECOMMENDATIONS: 1. Continue with present oxygen. 2. We will try a couple amps of bicarbonate. Lactic acid was 3.4 when last checked few days ago. 3. I have discussed with the patient and the son; and at this point, she wants to be a full code; and we will watching closely for need for intubation. She does understand that if she is intubated, she will be tough to come off the ventilator. 4. She will need removal of the left-sided effusion via PleurX catheter. 5. We will give albumin 500 mL post drainage. 6. Continue broad-spectrum antibiotics including antifungal. 7. Continue hydrocortisone at the present dose. 8. Follow all cultures. 9. Follow renal recommendation. 10. Follow Infectious Disease recommendation. 11. Discussed with RN and RT. We will follow along with you. Critical care time 37 minutes. CRISTIAN AGUIRRE MD DR: ISAMAR/rebeka JOB#: [id number] / [id number] MTDD
[2018-11-10] MEDS ORDERED: ALBUMIN HUMAN 5% 500 ML IV ONE ×2 (10:30→19:15)
--- NOTE | 2018-11-10 10:34 | PDOC ---
Renal-Progress Notes Subjective Notes Notes NO NEW COMPLAINTS, TIRED, WANTED TO EAT History of Present Illness Hx of present illness NO CHANGES Vitals Vitals Vital Signs Date Time Temp Pulse Resp B/P (MAP) Pulse Ox O2 Delivery O2 Flow Rate FiO2 11/10/18 06:37 21 97 Nasal Cannula 2.0 11/10/18 06:15 85 84/30 (48) 11/10/18 04:00 96.1 96.1 Weight Weight [ ] I.O. Intake and Output Intake and Output 11/10/18 07:00 Intake Total 787.89 ml Balance 787.89 ml Intake Oral 50 ml IV Total 737.89 ml Labs Labs Laboratory Tests Test 11/09/18 16:13 11/09/18 18:14 11/09/18 22:18 11/10/18 05:10 Glucose (Fingerstick) 45 mg/dL (70-99) 102 mg/dL (70-99) 98 mg/dL (70-99) 148 mg/dL (70-99) Test 11/10/18 08:15 11/10/18 09:10 Sodium Level 135 mmol/L (136-145) Potassium Level 4.5 mmol/L (3.5-5.1) Chloride Level 97 mmol/L (98-107) Carbon Dioxide Level 9 mmol/L (21-32) Anion Gap 29 (6-14) Blood Urea Nitrogen 77 mg/dL (7-20) Creatinine 7.8 mg/dL (0.6-1.0) Estimated GFR (Cockcroft-Gault) 5.2 Glucose Level 98 mg/dL (70-99) Calcium Level 9.4 mg/dL (8.5-10.1) Random Vancomycin Level 24.2 mcg/mL O2 Saturation 70 % (92-99) Arterial Blood pH 6.95 (7.35-7.45) Arterial Blood pH (Temp corrected) 6.97 Arterial Blood pCO2 at Patient Temp 38 mmHg (35-46) Arterial Blood pCO2 (Temp correct) 35 mmHg Arterial Blood pO2 at Patient Temp 56 mmHg (65-108) Arterial Blood pO2 (Temp corrected) 50 mmHg Arterial Blood HCO3 8 mmol/L (21-28) Arterial Blood Base Excess -23 mmol/L (-3-3) Oxyhemoglobin 69.0 % Methemoglobin 0.3 % (0.0-1.9) Carbon Monoxide, Quantitative 0.4 % (0.0-1.9) FiO2 28 Micro Micro Microbiology 11/08/18 Blood Culture - Preliminary, Resulted NO GROWTH AFTER 1 DAY Review of Systems Constitutional: yes: weakness, alert Ears/Nose/Throat: Yes: no symptom reported Eyes: Yes: no symptom reported Pulmonary: Yes no symptom reported, Yes dyspnea Cardiovascular: Yes orthopnea Gastrointestional: Yes: abdominal pain Genitourinary: Yes: no symptom reported Musculoskeletal: Yes: muscle stiffness Skin: Yes no symptom reported Psychiatric/Neurological: Yes: no symptom reported Endocrine: Yes: no symptom reported Physical Exam General Appearance: no apparent distress Skin: warm Respiratory: decreased breath sounds Heart: S1S2 Abdomen: soft, distension, other (POS ASCITES) Genitourinary: bladder flat Extremities: pulses present Neurology: alert, oriented Musculoskeletal: Osteoarthritis Assessment Assessment IMP HYPOTENSION ACUTE PANCREATITIS ESRD NON COMPLIANCE DIAZ WITH RECURRENT ASCITES CHRONIC HYPOTENSION DM II CHRONIC LEUCOCYTOSIS RECURRENT PLEURAL EFFUSIONS 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
[2018-11-10 11:22] LABS: BASO # 0.2 x10^3/uL (0.0-0.2); BASO % 1 % (0-3); EOS # 0.1 x10^3/uL (0.0-0.7); EOS % 1 % (0-3); HEMATOCRIT 33.9 % (36.0-47.0); HEMOGLOBIN 10.7 g/dL (12.0-15.5); LYMPH # 0.3 x10^3/uL (1.0-4.8); LYMPH % 2 % (24-48); MEAN CORPUSCULAR HEMOGLOBIN 32 pg (25-35); MEAN CORPUSCULAR HGB CONC 32 g/dL (31-37); MEAN CORPUSCULAR VOLUME 102 fL (79-100); MONO # 0.3 x10^3/uL (0.0-1.1); MONO % 2 % (0-9); NEUT # 13.8 x10^3/uL (1.8-7.7); NEUT % 94 % (31-73); PLATELET COUNT 36 x10^3/uL (140-400); RED BLOOD COUNT 3.33 x10^6/uL (3.50-5.40); RED CELL DISTRIBUTION WIDTH 20.1 % (11.5-14.5); WHITE BLOOD COUNT 14.7 x10^3/uL (4.0-11.0)
--- NOTE | 2018-11-10 11:30 | PDOC ---
Objective: Objective: Reviewed chart, d/w nurse. Vital Signs: Vital Signs Date Time Temp Pulse Resp B/P (MAP) Pulse Ox O2 Delivery O2 Flow Rate FiO2 11/10/18 06:37 21 97 Nasal Cannula 2.0 11/10/18 06:15 85 84/30 (48) 11/10/18 04:00 96.1 96.1 Labs: Laboratory Tests Test 11/09/18 16:13 11/09/18 18:14 11/09/18 22:18 11/10/18 05:10 Glucose (Fingerstick) 45 mg/dL 102 mg/dL 98 mg/dL 148 mg/dL Test 11/10/18 08:15 11/10/18 09:10 Sodium Level 135 mmol/L Potassium Level 4.5 mmol/L Chloride Level 97 mmol/L Carbon Dioxide Level 9 mmol/L Anion Gap 29 Blood Urea Nitrogen 77 mg/dL Creatinine 7.8 mg/dL Estimated GFR (Cockcroft-Gault) 5.2 Glucose Level 98 mg/dL Calcium Level 9.4 mg/dL Random Vancomycin Level 24.2 mcg/mL O2 Saturation 70 % Arterial Blood pH 6.95 Arterial Blood pH (Temp corrected) 6.97 Arterial Blood pCO2 at Patient Temp 38 mmHg Arterial Blood pCO2 (Temp correct) 35 mmHg Arterial Blood pO2 at Patient Temp 56 mmHg Arterial Blood pO2 (Temp corrected) 50 mmHg Arterial Blood HCO3 8 mmol/L Arterial Blood Base Excess -23 mmol/L Oxyhemoglobin 69.0 % Methemoglobin 0.3 % Carbon Monoxide, Quantitative 0.4 % FiO2 28 BLOOD CULTURE Preliminary NO GROWTH AFTER 1 DAY PE: GEN: looks more ill than normal, IR staff present draining PleurX LUNGS: NC ABD: some ascites, soft NEURO/PSYCH: moaning A/P: ESLD, ESRD - recurrent pleural effusion and ascites Sepsis, hypotension, lactic acidosis Pancreatitis, cholelithiasis -- Ill. Currently unable to clarify history - she is also rarely a good historian - liver disease 2/2 DIAZ, unaware of past alcohol abuse. 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 MELD 36. JENNIE ABRAMS Nov 10, 2018 11:30
--- NOTE | 2018-11-10 11:48 | NUR ---
Pharmacy Vancomycin Dosing Note S:Consulted to monitor and dose vancomycin started 11/08/18. O:YANIRA BRAVO is a 63 year old F with Pneumonia . Height: 5 feet, 3 inches Weight: 70.162488 kg [place] Body Weight: 52.40 Adjusted Body Weight: 59.84 Dosing Weight: Actual Other Antibiotics: MEROPENEM 11/10 - ZOSYN - 11/10 LABS: Last BUN: 77 Last Creatinine: 7.8 Creatinine Clearance: ESRD ON HD MWF mL/min Last WBC: 15.9 Last Procalcitonin: 2.04 (ESRD HD) Tmax (past 24 hours): 98.0 Microbiology: 11/10 BCX NGTD I/O: 787/1800 (PER PLEUREX) Drug Levels: Last Random level: 24.2 on 11/10/18 at 0815 Last dose given 11/08/18 at 1744 Vancomycin Dosing: Loading Dose: 1750 mg x1 Dosing Weight: Actual Target Trough: 15-20 A: Based on: SUPRATHERAPEUTIC RANDOM LEVEL, P: 1. Give no vancomycin dose at this time 2. Follow up Random level on 11/12/18 at 0600 3. Pharmacy will continue to monitor, follow and adjust therapy as needed. AFSANEH HERNANDEZ [facility], 11/10/18 [id number]
[2018-11-10 11:51] LABS: PROTHROMBIN TIME PATIENT 30.2 SEC (11.7-14.0)
[2018-11-10] MEDS ORDERED: IV RINGERS,LACTATED 500ML 500 ML IV ONE (12:15)
[2018-11-10] MEDS: VASOPRESSIN 40 UNIT in IV DEXTROSE 5% 100ML 100 ML IV PRN (12:52)
[2018-11-10] MEDS: PANTOPRAZOLE IV PUSH 40 MG VIAL. IVP SCH (12:54)
--- NOTE | 2018-11-10 13:52 | RAD ---
EXAM: AP View of the chest DATE: 11/10/2018 8:48 AM INDICATION: Dyspnea, acidosis COMPARISON: 11/08/2018, 11/03/2018 FINDINGS: Right port tip terminates over the distal SVC. Left IJ dual-lumen catheter tip projects over the distal SVC. Cardiomediastinal silhouette cannot be accurately assessed given the left pleural effusion. The left pleural effusion has increased in size with now diffuse left hemithorax opacification. Underlying parenchymal opacities likely atelectasis although superimposed consolidation is not excluded. Left chest tube is again seen. Small right pleural effusion right lung base opacities are stable. No definite pneumothorax. IMPRESSION: Interval progression of left-sided pleural effusion with diffuse left hemithorax opacification. Electronically signed by: Augusto Patel MD (11/10/2018 1:49 PM) [facility]
[2018-11-10] MEDS: HYDROCORTISONE SOD SUCC/PF 100 MG/2 ML VIAL. IV SCH ×2 (14:13→21:56)
[2018-11-10] MEDS ORDERED: IV NORMAL SALINE 1000ML BAG 1,000 ML IV PRN ×2 (14:35)
--- NOTE | 2018-11-10 14:40 | PDOC ---
PROGRESS NOTES Chief Complaint Chief Complaint sepsis and septic shock End stage liver disease elevated lipase Status post large-volume paracentesis 6 L 11/04/2018 Recurrent left pleural effusion with indwelling Pleurx catheter Stable large left pleural effusion. Underlying left lung pneumonia not ruled out. Diffuse interstitial opacities suggests interstitial pulmonary edema. ESRD on dialysis Saturday, noncompliance Anemia- Hgb low, Severe Non compliance with HD Anemia of ESRD quadriplegia Hypotension Diabetes type 2 on insulin Leukocytosis chronic, History of Present Illness History of Present Illness in ICU, lactic up today on levaphed cont currnet pain complaints Vitals Vitals Vital Signs Date Time Temp Pulse Resp B/P (MAP) Pulse Ox O2 Delivery O2 Flow Rate FiO2 11/10/18 13:45 78 16 111/36 (61) Nasal Cannula 3.0 11/10/18 12:00 95.5 90 95.5 Physical Exam Physical Exam GENERAL: Pt is lethargic,alert, awake,weak appearing HEENT: Pupils equally round and reactive. LUNGS: Diminished aeration. Left PleurX catheter. HEART: S1, S2. ABDOMEN: Obese, distended, soft, mildly tender. Bowel sounds present. EXTREMITIES: some mottling of skin lower torso SKIN: Warm without signs of rash. Both heels are boggy. She has dressings on her arms. NEUROLOGIC: Alert. Answers simple questions appropriately.moves all 4 ext, extremely weak Port-A-Cath without signs of any complications. HD catheter exposed as the dressing is off. No redness or drainage. General: Alert, Oriented X3, Cooperative, No acute distress, mild distress Heart: Regular rate Lungs: Clear, Other Abdomen: Normal bowel sounds, Soft, No tenderness Extremities: No clubbing, No cyanosis Skin: No breakdown Labs LABS Laboratory Tests Test 11/09/18 16:13 11/09/18 18:14 11/09/18 22:18 11/10/18 05:10 Glucose (Fingerstick) 45 mg/dL (70-99) 102 mg/dL (70-99) 98 mg/dL (70-99) 148 mg/dL (70-99) Test 11/10/18 08:15 11/10/18 09:10 11/10/18 10:55 Sodium Level 135 mmol/L (136-145) Potassium Level 4.5 mmol/L (3.5-5.1) Chloride Level 97 mmol/L (98-107) Carbon Dioxide Level 9 mmol/L (21-32) Anion Gap 29 (6-14) Blood Urea Nitrogen 77 mg/dL (7-20) Creatinine 7.8 mg/dL (0.6-1.0) Estimated GFR (Cockcroft-Gault) 5.2 Glucose Level 98 mg/dL (70-99) Calcium Level 9.4 mg/dL (8.5-10.1) Random Vancomycin Level 24.2 mcg/mL O2 Saturation 70 % (92-99) Arterial Blood pH 6.95 (7.35-7.45) Arterial Blood pH (Temp corrected) 6.97 Arterial Blood pCO2 at Patient Temp 38 mmHg (35-46) Arterial Blood pCO2 (Temp correct) 35 mmHg Arterial Blood pO2 at Patient Temp 56 mmHg (65-108) Arterial Blood pO2 (Temp corrected) 50 mmHg Arterial Blood HCO3 8 mmol/L (21-28) Arterial Blood Base Excess -23 mmol/L (-3-3) Oxyhemoglobin 69.0 % Methemoglobin 0.3 % (0.0-1.9) Carbon Monoxide, Quantitative 0.4 % (0.0-1.9) FiO2 28 White Blood Count 14.7 x10^3/uL (4.0-11.0) Red Blood Count 3.33 x10^6/uL (3.50-5.40) Hemoglobin 10.7 g/dL (12.0-15.5) Hematocrit 33.9 % (36.0-47.0) Mean Corpuscular Volume 102 fL (79-100) Mean Corpuscular Hemoglobin 32 pg (25-35) Mean Corpuscular Hemoglobin Concent 32 g/dL (31-37) Red Cell Distribution Width 20.1 % (11.5-14.5) Platelet Count 36 x10^3/uL (140-400) Neutrophils (%) (Auto) 94 % (31-73) Lymphocytes (%) (Auto) 2 % (24-48) Monocytes (%) (Auto) 2 % (0-9) Eosinophils (%) (Auto) 1 % (0-3) Basophils (%) (Auto) 1 % (0-3) Neutrophils # (Auto) 13.8 x10^3/uL (1.8-7.7) Lymphocytes # (Auto) 0.3 x10^3/uL (1.0-4.8) Monocytes # (Auto) 0.3 x10^3/uL (0.0-1.1) Eosinophils # (Auto) 0.1 x10^3/uL (0.0-0.7) Basophils # (Auto) 0.2 x10^3/uL (0.0-0.2) Prothrombin Time 30.2 SEC (11.7-14.0) Prothromb Time International Ratio 2.9 (0.8-1.1) Lactic Acid Level 10.7 mmol/L (0.4-2.0) Assessment and Plan Assessmemt and Plan Problems Medical Problems: (1) Acute pancreatitis Status: Acute (2) Elevated troponin Status: Acute (3) Hypotension Status: Acute (4) Sepsis Status: Acute Comment Review of Relevant I have reviewed the following items chante (where applicable) has been applied. Labs Laboratory Tests Test 11/08/18 18:30 11/08/18 22:25 11/09/18 00:01 11/09/18 07:30 Lactic Acid Level 3.4 mmol/L (0.4-2.0) Glucose (Fingerstick) 136 mg/dL (70-99) Nasal Screen MRSA (PCR) Negative (Negative) White Blood Count 15.9 x10^3/uL (4.0-11.0) Red Blood Count 3.82 x10^6/uL (3.50-5.40) Hemoglobin 12.1 g/dL (12.0-15.5) Hematocrit 37.3 % (36.0-47.0) Mean Corpuscular Volume 98 fL (79-100) Mean Corpuscular Hemoglobin 32 pg (25-35) Mean Corpuscular Hemoglobin Concent 33 g/dL (31-37) Red Cell Distribution Width 19.7 % (11.5-14.5) Platelet Count 55 x10^3/uL (140-400) Neutrophils (%) (Auto) 92 % (31-73) Lymphocytes (%) (Auto) 1 % (24-48) Monocytes (%) (Auto) 5 % (0-9) Eosinophils (%) (Auto) 1 % (0-3) Basophils (%) (Auto) 1 % (0-3) Neutrophils # (Auto) 14.7 x10^3/uL (1.8-7.7) Lymphocytes # (Auto) 0.2 x10^3/uL (1.0-4.8) Monocytes # (Auto) 0.8 x10^3/uL (0.0-1.1) Eosinophils # (Auto) 0.1 x10^3/uL (0.0-0.7) Basophils # (Auto) 0.1 x10^3/uL (0.0-0.2) Sodium Level 132 mmol/L (136-145) Potassium Level 4.1 mmol/L (3.5-5.1) Chloride Level 97 mmol/L (98-107) Carbon Dioxide Level 14 mmol/L (21-32) Anion Gap 21 (6-14) Blood Urea Nitrogen 72 mg/dL (7-20) Creatinine 7.3 mg/dL (0.6-1.0) Estimated GFR (Cockcroft-Gault) 5.7 BUN/Creatinine Ratio 10 (6-20) Glucose Level 99 mg/dL (70-99) Calcium Level 8.8 mg/dL (8.5-10.1) Total Bilirubin 2.4 mg/dL (0.2-1.0) Aspartate Amino Transf (AST/SGOT) 48 U/L (15-37) Alanine Aminotransferase (ALT/SGPT) 30 U/L (14-59) Alkaline Phosphatase 309 U/L (46-116) Troponin I Quantitative 0.186 ng/mL (0.000-0.055) Total Protein 6.6 g/dL (6.4-8.2) Albumin 2.3 g/dL (3.4-5.0) Albumin/Globulin Ratio 0.5 (1.0-1.7) Procalcitonin 2.04 ng/mL (0.00-0.10) Test 11/09/18 09:09 11/09/18 16:13 11/09/18 18:14 11/09/18 22:18 Glucose (Fingerstick) 78 mg/dL (70-99) 45 mg/dL (70-99) 102 mg/dL (70-99) 98 mg/dL (70-99) Test 11/10/18 05:10 11/10/18 08:15 11/10/18 09:10 11/10/18 10:55 Glucose (Fingerstick) 148 mg/dL (70-99) Sodium Level 135 mmol/L (136-145) Potassium Level 4.5 mmol/L (3.5-5.1) Chloride Level 97 mmol/L (98-107) Carbon Dioxide Level 9 mmol/L (21-32) Anion Gap 29 (6-14) Blood Urea Nitrogen 77 mg/dL (7-20) Creatinine 7.8 mg/dL (0.6-1.0) Estimated GFR (Cockcroft-Gault) 5.2 Glucose Level 98 mg/dL (70-99) Calcium Level 9.4 mg/dL (8.5-10.1) Random Vancomycin Level 24.2 mcg/mL O2 Saturation 70 % (92-99) Arterial Blood pH 6.95 (7.35-7.45) Arterial Blood pH (Temp corrected) 6.97 Arterial Blood pCO2 at Patient Temp 38 mmHg (35-46) Arterial Blood pCO2 (Temp correct) 35 mmHg Arterial Blood pO2 at Patient Temp 56 mmHg (65-108) Arterial Blood pO2 (Temp corrected) 50 mmHg Arterial Blood HCO3 8 mmol/L (21-28) Arterial Blood Base Excess -23 mmol/L (-3-3) Oxyhemoglobin 69.0 % Methemoglobin 0.3 % (0.0-1.9) Carbon Monoxide, Quantitative 0.4 % (0.0-1.9) FiO2 28 White Blood Count 14.7 x10^3/uL (4.0-11.0) Red Blood Count 3.33 x10^6/uL (3.50-5.40) Hemoglobin 10.7 g/dL (12.0-15.5) Hematocrit 33.9 % (36.0-47.0) Mean Corpuscular Volume 102 fL (79-100) Mean Corpuscular Hemoglobin 32 pg (25-35) Mean Corpuscular Hemoglobin Concent 32 g/dL (31-37) Red Cell Distribution Width 20.1 % (11.5-14.5) Platelet Count 36 x10^3/uL (140-400) Neutrophils (%) (Auto) 94 % (31-73) Lymphocytes (%) (Auto) 2 % (24-48) Monocytes (%) (Auto) 2 % (0-9) Eosinophils (%) (Auto) 1 % (0-3) Basophils (%) (Auto) 1 % (0-3) Neutrophils # (Auto) 13.8 x10^3/uL (1.8-7.7) Lymphocytes # (Auto) 0.3 x10^3/uL (1.0-4.8) Monocytes # (Auto) 0.3 x10^3/uL (0.0-1.1) Eosinophils # (Auto) 0.1 x10^3/uL (0.0-0.7) Basophils # (Auto) 0.2 x10^3/uL (0.0-0.2) Prothrombin Time 30.2 SEC (11.7-14.0) Prothromb Time International Ratio 2.9 (0.8-1.1) Lactic Acid Level 10.7 mmol/L (0.4-2.0) Laboratory Tests Test 11/09/18 16:13 11/09/18 18:14 11/09/18 22:18 11/10/18 05:10 Glucose (Fingerstick) 45 mg/dL (70-99) 102 mg/dL (70-99) 98 mg/dL (70-99) 148 mg/dL (70-99) Test 11/10/18 08:15 11/10/18 09:10 11/10/18 10:55 Sodium Level 135 mmol/L (136-145) Potassium Level 4.5 mmol/L (3.5-5.1) Chloride Level 97 mmol/L (98-107) Carbon Dioxide Level 9 mmol/L (21-32) Anion Gap 29 (6-14) Blood Urea Nitrogen 77 mg/dL (7-20) Creatinine 7.8 mg/dL (0.6-1.0) Estimated GFR (Cockcroft-Gault) 5.2 Glucose Level 98 mg/dL (70-99) Calcium Level 9.4 mg/dL (8.5-10.1) Random Vancomycin Level 24.2 mcg/mL O2 Saturation 70 % (92-99) Arterial Blood pH 6.95 (7.35-7.45) Arterial Blood pH (Temp corrected) 6.97 Arterial Blood pCO2 at Patient Temp 38 mmHg (35-46) Arterial Blood pCO2 (Temp correct) 35 mmHg Arterial Blood pO2 at Patient Temp 56 mmHg (65-108) Arterial Blood pO2 (Temp corrected) 50 mmHg Arterial Blood HCO3 8 mmol/L (21-28) Arterial Blood Base Excess -23 mmol/L (-3-3) Oxyhemoglobin 69.0 % Methemoglobin 0.3 % (0.0-1.9) Carbon Monoxide, Quantitative 0.4 % (0.0-1.9) FiO2 28 White Blood Count 14.7 x10^3/uL (4.0-11.0) Red Blood Count 3.33 x10^6/uL (3.50-5.40) Hemoglobin 10.7 g/dL (12.0-15.5) Hematocrit 33.9 % (36.0-47.0) Mean Corpuscular Volume 102 fL (79-100) Mean Corpuscular Hemoglobin 32 pg (25-35) Mean Corpuscular Hemoglobin Concent 32 g/dL (31-37) Red Cell Distribution Width 20.1 % (11.5-14.5) Platelet Count 36 x10^3/uL (140-400) Neutrophils (%) (Auto) 94 % (31-73) Lymphocytes (%) (Auto) 2 % (24-48) Monocytes (%) (Auto) 2 % (0-9) Eosinophils (%) (Auto) 1 % (0-3) Basophils (%) (Auto) 1 % (0-3) Neutrophils # (Auto) 13.8 x10^3/uL (1.8-7.7) Lymphocytes # (Auto) 0.3 x10^3/uL (1.0-4.8) Monocytes # (Auto) 0.3 x10^3/uL (0.0-1.1) Eosinophils # (Auto) 0.1 x10^3/uL (0.0-0.7) Basophils # (Auto) 0.2 x10^3/uL (0.0-0.2) Prothrombin Time 30.2 SEC (11.7-14.0) Prothromb Time International Ratio 2.9 (0.8-1.1) Lactic Acid Level 10.7 mmol/L (0.4-2.0) Microbiology 11/08/18 Blood Culture - Preliminary, Resulted NO GROWTH AFTER 1 DAY Medications Current Medications Sodium Chloride (NORMAL SALINE FLUSH for STERILE FIELD) 10 ml STK-MED ONCE .R OUTE ; Start 11/08/18 at 11:04; Stop 11/08/18 at 11:05; Status DC Ondansetron HCl (Zofran) 4 mg 1X ONCE IV Last administered on 11/08/18at 12:56; Start 11/08/18 at 11:45; Stop 11/08/18 at 11:46; Status DC Sodium Chloride 500 ml @ 500 mls/hr 1X ONCE IV Last administered on 11/08/18at 13:15; Start 11/08/18 at 13:15; Stop 11/08/18 at 14:14; Status DC Fentanyl Citrate (Fentanyl 2ml Vial) 25 mcg 1X ONCE IV Last administered on 11/08/18at 14:12; Start 11/08/18 at 13:45; Stop 11/08/18 at 13:46; Status DC Piperacillin Sod/ Tazobactam Sod 3.375 gm/Sodium Chloride 50 ml @ 100 mls/hr 1X ONCE IV Last administered on 11/08/18at 16:55; Start 11/08/18 at 15:00; Stop 11/08/18 at 15:29; Status DC Vancomycin HCl (Vanco Per Pharmacy) 1 each PRN DAILY PRN MC SEE COMMENTS Last administered on 11/09/18at 08:13; Start 11/08/18 at 15:45; Stop 11/09/18 at 08:35; Status DC Vancomycin HCl 1.75 gm/Sodium Chloride 500 ml @ 250 mls/hr 1X ONCE IV Last administered on 11/08/18at 17:44; Start 11/08/18 at 16:00; Stop 11/08/18 at 17:59; Status DC Norepinephrine Bitartrate 250 ml @ 13.438 mls/ hr CONT PRN IV SEE I/O RECORD Last administered on 11/10/18at 12:52; Start 11/08/18 at 16:45 Piperacillin Sod/ Tazobactam Sod (Zosyn Per Pharmacy) 1 each PRN DAILY PRN MC SEE COMMENTS; Start 11/08/18 at 17:30; Stop 11/09/18 at 08:39; Status DC Piperacillin Sod/ Tazobactam Sod 2.25 gm/Sodium Chloride 50 ml @ 100 mls/hr Q8HRS IV Last administered on 11/09/18at 05:49; Start 11/08/18 at 18:00; Stop 11/09/18 at 08:35; Status DC Fentanyl Citrate (Fentanyl 2ml Vial) 50 mcg PRN Q3HRS PRN IV PAIN Last administered on 11/10/18at 06:07; Start 11/08/18 at 18:00 Ondansetron HCl (Zofran) 4 mg PRN Q4HRS PRN IV NAUSEA/VOMITING Last administered on 11/09/18at 16:42; Start 11/08/18 at 18:00 Famotidine (Pepcid Vial) 20 mg QHS IVP Last administered on 11/08/18at 21:02; Start 11/08/18 at 21:00; Stop 11/09/18 at 08:49; Status DC Vancomycin HCl (Vancomycin Random Level) 1 each 1X ONCE MC ; Start 11/10/18 at 06:00; Stop 11/10/18 at 06:00; Status DC Meropenem 500 mg/ Sodium Chloride 50 ml @ 100 mls/hr DAILY IV Last administered on 11/10/18at 09:16; Start 11/09/18 at 09:00 Albuterol Sulfate (Ventolin Neb Soln) 2.5 mg PRN Q6HRS PRN NEB SHORTNESS OF BREATH Last administered on 11/10/18at 02:09; Start 11/09/18 at 08:45 Clotrimazole (Mycelex) 10 mg BID MM Last administered on 11/09/18at 21:00; Start 11/09/18 at 09:00 Diphenhydramine HCl (Benadryl) 25 mg PRN Q6HRS PRN PO ITCHING; Start 11/09/18 at 08:45 Insulin Glargine (Lantus) 40 units DAILY08 SQ ; Start 11/09/18 at 09:00 Lactobacillus Rhamnosus (Culturelle) 1 cap BID PO Last administered on 11/09/18at 09:04; Start 11/09/18 at 09:00 Nystatin (Mycostatin) 1 efe BID TP Last administered on 11/09/18at 21:59; Start 11/09/18 at 09:00 Phenyleph/Shark Oil/Min Oil/Petrol (Preparation H) 1 efe PRN QID PRN RC RECTAL PAIN; Start 11/09/18 at 08:45 Rifaximin (Xifaxan) 550 mg BID PO Last administered on 11/09/18at 09:04; Start 11/09/18 at 09:00 Benzonatate (Tessalon Perle) 100 mg PRN Q6HRS PRN PO COUGH; Start 11/09/18 at 09:00 Calcium Acetate (Phoslo) 667 mg TIDWMEALS PO ; Start 11/09/18 at 12:00 Levothyroxine Sodium (Synthroid) 300 mcg DAILY06 PO Last administered on 11/10/18 05:59; Start 11/09/18 at 09:00 Midodrine (Proamatine) 10 mg [id number] PO Last administered on 11/09/18at 18:23; Start 11/09/18 at 09:38 Pantoprazole Sodium (Protonix) 40 mg DAILYAC PO Last administered on 11/09/18at 09:04; Start 11/09/18 at 09:00; Stop 11/10/18 at 11:31; Status DC Simethicone (Gas-X) 80 mg PRN AFTMEALHC PRN PO GAS / BLOATING Last administered on 11/09/18at 12:47; Start 11/09/18 at 09:45 Albumin Human 100 ml @ 100 mls/hr 1X ONCE IV Last administered on 11/09/18at 12:47; Start 11/09/18 at 12:00; Stop 11/09/18 at 12:59; Status DC Dextrose (Dextrose 50%-Water Syringe) 25 gm STK-MED ONCE IV ; Start 11/09/18 at 16:16; Stop 11/09/18 at 16:17; Status DC Bisacodyl (Dulcolax Tab) 5 mg PRN DAILY PRN PO CONSTIPATION Last administered on 11/09/18at 16:35; Start 11/09/18 at 16:30 Dextrose (Dextrose 50%-Water Syringe) 12.5 gm PRN Q15MIN PRN IV SEE COMMENTS Last administered on 11/10/18at 04:47; Start 11/09/18 at 17:00 Vancomycin HCl (Vanco Per Pharmacy) 1 each PRN DAILY PRN MC SEE COMMENTS Last administered on 11/10/18at 11:42; Start 11/10/18 at 08:30 Micafungin Sodium 100 mg/Dextrose 100 ml @ 100 mls/hr Q24H IV Last administered on 11/10/18 10:13; Start 11/10/18 at 09:00 Hydrocortisone Sodium Succinate (Solu-CORTEF) 100 mg Q8HRS IV Last administered on 11/10/18 14:13; Start 11/10/18 at 14:00 Hydrocortisone Sodium Succinate (Solu-CORTEF) 100 mg 1X ONCE IV Last administered on 11/10/18 09:39; Start 11/10/18 at 09:00; Stop 11/10/18 at 09:04; Status DC Sodium Chloride 1,000 ml @ 1,000 mls/hr 1X ONCE IV Last administered on 11/10/18 09:40; Start 11/10/18 at 09:15; Stop 11/10/18 at 10:14; Status DC Sodium Bicarbonate (Sodium Bicarb Adult 8.4% Syr) 50 meq STK-MED ONCE .ROUTE ; Start 11/10/18 at 09:21; Stop 11/10/18 at 09:22; Status DC Sodium Bicarbonate (Sodium Bicarb Adult 8.4% Syr) 100 meq 1X ONCE IV Last administered on 11/10/18 09:33; Start 11/10/18 at 09:30; Stop 11/10/18 at 09:31; Status DC Albumin Human 500 ml @ 125 mls/hr 1X ONCE IV Last administered on 11/10/18 10:37; Start 11/10/18 at 10:30; Stop 11/10/18 at 14:29; Status DC Vancomycin HCl (Vancomycin Random Level) 1 each 1X ONCE MC ; Start 11/12/18 at 06:00; Stop 11/12/18 at 06:01 Pantoprazole Sodium (PROTONIX VIAL for IV PUSH) 40 mg DAILYAC IVP Last adm inistered on 11/10/18 12:54; Start 11/10/18 at 12:00 Ringer's Solution 500 ml @ 1,000 mls/hr 1X ONCE IV Last administered on 11/10/18at 12:12; Start 11/10/18 at 12:15; Stop 11/10/18 at 12:44; Status DC Vasopressin 40 unit/Dextrose 102 ml @ 6 mls/hr CONT PRN IV SEE I/O RECORD Last administered on 7/22/19at 12:52; Start 11/10/18 at 12:30 Sodium Chloride 1,000 ml @ 1,000 mls/hr Q1H PRN IV hypotension; Start 11/10/18 at 14:35; Stop 11/10/18 at 20:34; Status UNV Albumin Human 400 ml @ 200 mls/hr 1X PRN PRN IV Hypotension; Start 11/10/18 at 14:45; Stop 11/10/18 at 20:44; Status UNV Sodium Chloride 1,000 ml @ 400 mls/hr Q2H30M PRN IV PATENCY; Start 11/10/18 at 14:35; Stop 11/11/18 at 02:34; Status UNV Info (PHARMACY MONITORING -- do not chart) 1 each PRN DAILY PRN MC SEE COMMENTS; Start 11/10/18 at 14:45; Status UNV Active Scripts Active Culturelle (Lactobacillus Rhamnosus Gg) 1 Each Cap.sprink 1 Cap PO BID 14 Days Major-Prep Hemorrhoidal Oint (Phenyleph/Mineral Oil/Petrolat) 57 Gm Oint.appl 1 Efe RC PRN QID PRN 14 Days Nystatin 15 Gm Oint...g. 1 Efe TP BID 30 Days Clotrimazole 10 Mg Vielka 10 Mg MM BID 10 Days Benzonatate 100 Mg Capsule 100 Mg PO PRN Q6HRS PRN 10 Days Proair Hfa (Albuterol Sulfate) 8.5 Gm Hfa.aer.ad 2.5 Mg NEB PRN Q6HRS PRN 30 Days Midodrine Hcl 5 Mg Tablet 10 Mg PO [id number] 14 Days Reported Benadryl (Diphenhydramine Hcl) 25 Mg Capsule 25 Mg PO PRN Q6HRS PRN Calcium Acetate 667 Mg Tablet 667 Mg PO TIDWMEALS Dialyvite Tablet (Folic Acid/Vitamin B Comp W-C) 1 Each Tablet 1 Each PO QMWF Omeprazole 40 Mg Capsule. 1 Cap PO DAILY Xifaxan (Rifaximin) 550 Mg Tablet 1 Tab PO BID Fusion Plus Capsule (Iron,Fum&Ps/Fa/Vit B&C#18/L.ca) 1 Each Capsule 1 Each PO DAILY Albuterol Sulfate Conc Neb Soln (Albuterol Sulfate) 2.5 Mg/0.5 Ml Vial.neb 2.5 Mg NEB Q6HRS PRN Lactulose 20 Gm/30 Ml Solution 20 Gm PO TID Lantus Solostar (Insulin Glargine,Hum.rec.anlog) 100 Unit/1 Ml Insuln.pen 40 Units SQ DAILY08 SSI Calcium + Vitamin D Tablet (Calcium Carbonate/Vitamin D3) 1 Each Tablet 1 Each PO DAILY Novolog Flexpen (Insulin Aspart) 100 Unit/1 Ml Insuln.pen 0 SQ TIDAC 0-149: 0 units 150-199: 2 units 200-249: 4 units 250-299: 6 units 300-349: 8 units 350-399: 10 units >400: Call Synthroid (Levothyroxine Sodium) 25 Mcg Tablet 300 Mcg PO DAILY Flovent 110MCG Hfa (Fluticasone Propionate) 12 Gm Aer.w.adap 1 Puff IH DAILY Vitals/I & O Vital Sign - Last 24 Hours 11/09/18 11/09/18 11/09/18 11/09/18 15:00 16:00 16:00 16:42 Pulse 82 83 Resp 18 18 18 B/P (MAP) 65/28 (40) 62/30 (41) Pulse Ox 99 O2 Delivery Nasal Cannula Nasal Cannula O2 Flow Rate 2.0 2.0 2.0 2.0 11/09/18 11/09/18 11/09/18 11/09/18 17:00 18:00 18:23 19:00 Pulse 95 89 87 86 Resp 16 16 20 B/P (MAP) 92/37 (55) 91/32 (51) 91/32 75/35 (48) O2 Flow Rate 2.0 2.0 2.0 11/09/18 11/09/18 11/09/18 11/09/18 19:15 19:30 19:45 20:00 Pulse 87 86 86 B/P (MAP) 77/34 (48) 81/45 (57) 83/38 (53) O2 Delivery Nasal Cannula O2 Flow Rate 2.0 11/09/18 11/09/18 11/09/18 11/09/18 20:00 20:15 20:30 21:00 Temp 97.8 97.8 Pulse 90 87 87 88 Resp 22 20 B/P (MAP) 78/37 (51) 75/23 (40) 94/41 (58) 85/35 (52) O2 Delivery Nasal Cannula Nasal Cannula O2 Flow Rate 2.0 2.0 11/09/18 11/09/18 11/09/18 11/09/18 22:00 23:00 23:18 23:59 Pulse 88 89 Resp 24 B/P (MAP) 91/46 (61) 82/54 (63) O2 Delivery Nasal Cannula Nasal Cannula Nasal Cannula Nasal Cannula O2 Flow Rate 2.0 2.0 2.0 2.0 11/10/18 11/10/18 11/10/18 11/10/18 00:01 01:00 02:00 02:09 Temp 96.2 96.2 Pulse 90 88 86 Resp 24 24 B/P (MAP) 86/32 (50) 85/41 (56) 93/30 (51) Pulse Ox 98 96 O2 Delivery Nasal Cannula Nasal Cannula Venturi Mask Venturi Mask O2 Flow Rate 2.0 2.0 9.0 11/10/18 11/10/18 11/10/18 11/10/18 03:00 04:00 04:00 04:15 Temp 96.1 96.1 Pulse 84 82 85 Resp 22 20 B/P (MAP) 88/30 (49) 74/31 (45) 84/30 (48) Pulse Ox 96 96 O2 Delivery Nasal Cannula Nasal Cannula Nasal Cannula O2 Flow Rate 2.0 2.0 2.0 11/10/18 11/10/18 11/10/18 11/10/18 04:30 06:00 06:07 06:15 Pulse 84 85 85 Resp 28 B/P (MAP) 91/68 (76) 76/40 (52) 84/30 (48) Pulse Ox 96 95 O2 Delivery Nasal Cannula Nasal Cannula O2 Flow Rate 2.0 2.0 11/10/18 11/10/18 11/10/18 11/10/18 06:37 07:00 08:00 08:00 Temp 95.5 95.5 Pulse 86 86 Resp 21 14 14 B/P (MAP) 78/33 (48) 81/36 (51) Pulse Ox 97 92 99 O2 Delivery Nasal Cannula Nasal Cannula Nasal Cannula Nasal Cannula O2 Flow Rate 2.0 2.0 2.0 2.0 11/10/18 11/10/18 11/10/18 11/10/18 08:22 08:25 08:26 08:40 B/P (MAP) 81/33 (49) 79/55 (63) 80/28 (45) 11/10/18 11/10/18 11/10/18 11/10/18 09:00 10:00 11:00 12:00 Temp 95.5 95.5 Pulse 86 86 82 82 Resp 14 14 14 16 B/P (MAP) 98/37 (57) 97/34 (55) 104/39 (60) 81/51 (61) Pulse Ox 96 96 96 90 O2 Delivery Nasal Cannula Nasal Cannula Nasal Cannula Nasal Cannula O2 Flow Rate 2.0 2.0 2.0 3.0 11/10/18 11/10/18 11/10/18 11/10/18 12:00 13:00 13:15 13:30 Pulse 78 78 78 Resp 16 16 16 B/P (MAP) 92/31 (51) 103/48 (66) 103/38 (59) O2 Delivery Nasal Cannula Nasal Cannula Nasal Cannula Nasal Cannula O2 Flow Rate 3.0 3.0 3.0 3.0 11/10/18 13:45 Pulse 78 Resp 16 B/P (MAP) 111/36 (61) O2 Delivery Nasal Cannula O2 Flow Rate 3.0 Intake and Output 11/09/18 11/09/18 11/10/18 14:59 22:59 06:59 Intake Total 50 ml 549 ml 188.89 ml Balance 50 ml 549 ml 188.89 ml BENJAMIN POOL MD Nov 10, 2018 14:40
[2018-11-10] MEDS ORDERED: DIALYSIS PATIENT. MC PRN ×2 (14:45)
[2018-11-10] MEDS ORDERED: ALBUMIN HUMAN 25% 400 ML IV PRN (14:45)
--- NOTE | 2018-11-10 15:20 | NUR ---
Patient's abdomen and lower extremities are mottled that has increased since this morning. Dr. Strickland notified.
--- NOTE | 2018-11-10 15:31 | NUR ---
SS following for discharge planning. SS reviewed pt chart. Pt has had multiple admissions to [facility] and was previously on services with [facility] at home. Pt lives with her son and is currently requiring oxygen. Pt has also been on services with [facility] in the past but Hospice declined her in her last admission due to continually readmitting to the hospital. SS will continue to follow for discharge planning.
--- NOTE | 2018-11-10 16:44 | RAD ---
Examination: 2 views of the right and left calcaneus HISTORY: History of discoloration, infection COMPARISON: None available FINDINGS: Small posterior calcaneal enthesophyte identified in the bilateral calcaneus. There is no acute fracture or dislocation identified. No evidence of cortical disruption identified. IMPRESSION: No acute osseous findings. Electronically signed by: Fermin Rodriguez MD (11/10/2018 4:41 PM) [facility]
[2018-11-10 17:32] LABS: BASE EXCESS ABG -12 mmol/L (-3-3); CORRECTED PCO2 ABG 50 mmHg; CORRECTED PH ABG 7.14; CORRECTED PO2 ABG 29 mmHg; HCO3 ABG 17 mmol/L (21-28); PCO2 ABG 54 mmHg (35-46)
[2018-11-10 17:36] LABS: PO2 ABG < 42 mmHg (65-108)
[2018-11-10 17:37] LABS: FIO2 ABG 50; SAT O2 ABG 39 % (92-99)
[2018-11-10] MEDS ORDERED: MIDAZOLAM HCL/PF 5 MG/5 ML VIAL. ONE (17:40)
[2018-11-10] MEDS ORDERED: MORPHINE SULFATE 2 MG/ML VIAL. IV PRN (17:45)
[2018-11-10] MEDS ORDERED: fentaNYL PF VIAL 100 MCG/2 ML VIAL IV PRN ×2 (17:45)
[2018-11-10] MEDS ORDERED: MORPHINE SULFATE 4 MG/ML VIAL. IV PRN (17:45)
[2018-11-10] MEDS ORDERED: MIDAZOLAM HCL/PF 5 MG/5 ML VIAL. IV ONE (17:45)
--- NOTE | 2018-11-10 17:47 | NUR ---
Wound Care Wound care consult for buttock and heel wounds. Pt being intubated at time of WC team arrival. Will follow up tomorrow.
[2018-11-10] MEDS: MIDAZOLAM 100mg/100ml NS BAG 100 ML IV PRN (18:06)
--- NOTE | 2018-11-10 20:05 | NUR ---
Text paged Dr. Guillen the results of the ABG, returned call and gave orders to give 2 amps bicarb, and decrease PEEP to 7 and titrate FIO2. Repeat ABG in the morning.
[2018-11-10 20:13] LABS: BASE EXCESS ABG -8 mmol/L (-3-3); CORRECTED PCO2 ABG 24 mmHg; CORRECTED PH ABG 7.43; CORRECTED PO2 ABG 282 mmHg; HCO3 ABG 15 mmol/L (21-28); PCO2 ABG 25 mmHg (35-46); PO2 ABG 289 mmHg (65-108); SAT O2 ABG 99 % (92-99)
[2018-11-10 20:29] LABS: FIO2 ABG 100
[2018-11-10] MEDS: NOREPINEPHRINE VIAL 32 MG in IV NORMAL SALINE 250ML IV PRN (21:56)
[2018-11-11] VITALS (14 sets, daily range): BP systolic 45–133; BP diastolic 35–77
[2018-11-11] MEDS: VASOPRESSIN 40 UNIT in IV DEXTROSE 5% 100ML 100 ML IV PRN ×2 (02:47→19:45)
[2018-11-11] MEDS: DEXTROSE 50% 25 GM / 50ML DISP.SYRIN. IV PRN ×4 (02:47→11:14)
--- NOTE | 2018-11-11 03:19 | NUR ---
At 0250, SPO2 dropped to 82%. Patient suctioned, repositioned, verified tube was in the same place, and given 100% FIO2 for approximately 6 minutes with improvement to 85%. RT was called and patient returned to ventilator settings from the beginning of this shift. Currently SPO2 is 92% on FIO2 of 100 and PEEP of 8.
[2018-11-11 03:24] LABS: BASO % 0 % (0-3); EOS # 0.8 x10^3/uL (0.0-0.7); EOS % 4 % (0-3); HEMATOCRIT 22.5 % (36.0-47.0); HEMOGLOBIN 7.3 g/dL (12.0-15.5); LYMPH # 0.1 x10^3/uL (1.0-4.8); LYMPH % 1 % (24-48); MEAN CORPUSCULAR HEMOGLOBIN 32 pg (25-35); MEAN CORPUSCULAR HGB CONC 33 g/dL (31-37); MEAN CORPUSCULAR VOLUME 98 fL (79-100); MONO # 0.7 x10^3/uL (0.0-1.1); MONO % 4 % (0-9); NEUT # 16.6 x10^3/uL (1.8-7.7); NEUT % 91 % (31-73); RED BLOOD COUNT 2.29 x10^6/uL (3.50-5.40); RED CELL DISTRIBUTION WIDTH 19.7 % (11.5-14.5); WHITE BLOOD COUNT 18.3 x10^3/uL (4.0-11.0)
[2018-11-11 03:27] LABS: PLATELET COUNT 18 x10^3/uL (140-400)
[2018-11-11 03:43] LABS: ALBUMIN 4.2 g/dL (3.4-5.0); ALBUMIN/GLOBULIN RATIO 2.5 (1.0-1.7); CALCIUM 8.7 mg/dL (8.5-10.1); CREATININE 5.4 mg/dL (0.6-1.0); POTASSIUM 3.8 mmol/L (3.5-5.1); TOTAL PROTEIN 5.9 g/dL (6.4-8.2)
--- NOTE | 2018-11-11 03:53 | NUR ---
Notified Dr. Velazquez of critical platelet count and drop in hgb, received the order to recheck cbc at 0500 and type and screen. Will continue to monitor.
[2018-11-11] MEDS: MIDAZOLAM 100mg/100ml NS BAG 100 ML IV PRN (04:31)
[2018-11-11 05:55] LABS: BASO # 0.1 x10^3/uL (0.0-0.2); BASO % 0 % (0-3); EOS # 0.8 x10^3/uL (0.0-0.7); EOS % 5 % (0-3); HEMATOCRIT 22.4 % (36.0-47.0); HEMOGLOBIN 7.2 g/dL (12.0-15.5); LYMPH # 0.1 x10^3/uL (1.0-4.8); LYMPH % 1 % (24-48); MEAN CORPUSCULAR HEMOGLOBIN 32 pg (25-35); MEAN CORPUSCULAR HGB CONC 32 g/dL (31-37); MEAN CORPUSCULAR VOLUME 100 fL (79-100); MONO # 0.6 x10^3/uL (0.0-1.1); MONO % 4 % (0-9); NEUT # 14.5 x10^3/uL (1.8-7.7); NEUT % 90 % (31-73); RED BLOOD COUNT 2.24 x10^6/uL (3.50-5.40); RED CELL DISTRIBUTION WIDTH 20.1 % (11.5-14.5); WHITE BLOOD COUNT 16.1 x10^3/uL (4.0-11.0)
[2018-11-11 06:00] LABS: PLATELET COUNT 25 x10^3/uL (140-400)
[2018-11-11] MEDS: LEVOTHYROXINE 100 MCG TABLET PO SCH (06:00)
--- NOTE | 2018-11-11 06:11 | NUR ---
Notified Dr. Velazquez of critical low platelet count and dropped hgb at 0609, received the order to draw another CBC at 1600.
[2018-11-11 06:17] LABS: ALBUMIN 4.1 g/dL (3.4-5.0); ALBUMIN/GLOBULIN RATIO 2.6 (1.0-1.7); CALCIUM 8.9 mg/dL (8.5-10.1); CREATININE 5.5 mg/dL (0.6-1.0); GFR 7.9; POTASSIUM 4.3 mmol/L (3.5-5.1); TOTAL BILIRUBIN 3.9 mg/dL (0.2-1.0); TOTAL PROTEIN 5.7 g/dL (6.4-8.2)
[2018-11-11] MEDS: HYDROCORTISONE SOD SUCC/PF 100 MG/2 ML VIAL. IV SCH ×2 (06:22→14:00)
[2018-11-11] MEDS: MIDODRINE 5 MG TABLET PO SCH ×3 (07:00→14:10)
[2018-11-11] MEDS: INSULIN GLARGINE 300 UNITS/3 ML INSULN.PEN. SQ SCH (07:20)
[2018-11-11] MEDS: CALCIUM ACETATE 667 MG CAPSULE PO SCH ×3 (07:20→14:10)
[2018-11-11] MEDS: CLOTRIMAZOLE 10 MG TROCHE. MM SCH (07:21)
[2018-11-11] MEDS: LACTOBACILLUS RHAMNOSUS GG 1 CAPSULE. PO SCH (07:21)
[2018-11-11] MEDS: rifAXIMin 550 MG TABLET PO SCH (07:21)
--- NOTE | 2018-11-11 07:33 | RAD ---
EXAM: AP View of the chest DATE: 11/10/2018 5:58 PM INDICATION: ET tube placement 11/10/2018 COMPARISON: No Prior FINDINGS/ IMPRESSION: ET tube tip terminates approximately 4 cm above the anisa. Left IJ and right port catheters are stable in position. Enteric tube tip projects over the body of the stomach with the proximal sidehole just beyond the expected gastroesophageal junction. Left chest tube is in place. Interval decrease in left pleural effusion now with small residual left pleural effusion. Associated left lung base and right lung base patchy opacities have improved. No obvious pneumothorax. Electronically signed by: Augusto Patel MD (11/11/2018 7:30 AM) [facility]
[2018-11-11] MEDS: NOREPINEPHRINE VIAL 32 MG in IV NORMAL SALINE 250ML IV PRN ×2 (07:56→17:07)
[2018-11-11] MEDS: PANTOPRAZOLE IV PUSH 40 MG VIAL. IVP SCH (07:58)
[2018-11-11] MEDS ORDERED: SODIUM BICARB ADULT 8.4% 50 MEQ/50 ML DISP.SYRIN. IV ONE (08:00)
[2018-11-11 08:26] LABS: BASE EXCESS ABG -21 mmol/L (-3-3); HCO3 ABG 6 mmol/L (21-28); PCO2 ABG 21 mmHg (35-46); PO2 ABG 329 mmHg (65-108); SAT O2 ABG 99 % (92-99)
--- NOTE | 2018-11-11 08:27 | PDOC ---
Infectious Disease Note Subjective Subjective pt is intubated on multiple vasopressorss hypothermic ROS ROS unable to do no n/v/d/per RN Vital Sign Vital Signs Vital Signs Date Time Temp Pulse Resp B/P (MAP) Pulse Ox O2 Delivery O2 Flow Rate FiO2 11/11/18 06:00 119 18 97/41 (59) 93 Ventilator 11/11/18 04:00 95.9 95.9 11/10/18 17:01 3.0 Physical Exam PHYSICAL EXAM GENERAL: orally intubated on vent HEENT: Pupils equally round and reactive. LUNGS: Diminished aeration. Left PleurX catheter. HEART: S1, S2. ABDOMEN: Obese, distended, soft, mildly tender. Bowel sounds present. EXTREMITIES: some mottling of skin lower torso SKIN: Warm without signs of rash. Both heels are boggy. She has dressings on her arms. NEUROLOGIC: sedated on vent Port-A-Cath without signs of any complications. HD catheter exposed as the dressing is off. No redness or drainage. Labs Lab Laboratory Tests Test 11/10/18 09:10 11/10/18 10:55 11/10/18 15:40 11/10/18 17:30 O2 Saturation 70 % (92-99) 39 % (92-99) Arterial Blood pH 6.95 (7.35-7.45) 7.12 (7.35-7.45) Arterial Blood pH (Temp corrected) 6.97 7.14 Arterial Blood pCO2 at Patient Temp 38 mmHg (35-46) 54 mmHg (35-46) Arterial Blood pCO2 (Temp correct) 35 mmHg 50 mmHg Arterial Blood pO2 at Patient Temp 56 mmHg (65-108) < 42 mmHg (65-108) Arterial Blood pO2 (Temp corrected) 50 mmHg 29 mmHg Arterial Blood HCO3 8 mmol/L (21-28) 17 mmol/L (21-28) Arterial Blood Base Excess -23 mmol/L (-3-3) -12 mmol/L (-3-3) Oxyhemoglobin 69.0 % Methemoglobin 0.3 % (0.0-1.9) Carbon Monoxide, Quantitative 0.4 % (0.0-1.9) FiO2 28 50 White Blood Count 14.7 x10^3/uL (4.0-11.0) Red Blood Count 3.33 x10^6/uL (3.50-5.40) Hemoglobin 10.7 g/dL (12.0-15.5) Hematocrit 33.9 % (36.0-47.0) Mean Corpuscular Volume 102 fL (79-100) Mean Corpuscular Hemoglobin 32 pg (25-35) Mean Corpuscular Hemoglobin Concent 32 g/dL (31-37) Red Cell Distribution Width 20.1 % (11.5-14.5) Platelet Count 36 x10^3/uL (140-400) Neutrophils (%) (Auto) 94 % (31-73) Lymphocytes (%) (Auto) 2 % (24-48) Monocytes (%) (Auto) 2 % (0-9) Eosinophils (%) (Auto) 1 % (0-3) Basophils (%) (Auto) 1 % (0-3) Neutrophils # (Auto) 13.8 x10^3/uL (1.8-7.7) Lymphocytes # (Auto) 0.3 x10^3/uL (1.0-4.8) Monocytes # (Auto) 0.3 x10^3/uL (0.0-1.1) Eosinophils # (Auto) 0.1 x10^3/uL (0.0-0.7) Basophils # (Auto) 0.2 x10^3/uL (0.0-0.2) Prothrombin Time 30.2 SEC (11.7-14.0) Prothromb Time International Ratio 2.9 (0.8-1.1) Lactic Acid Level 10.7 mmol/L (0.4-2.0) 7.7 mmol/L (0.4-2.0) Ammonia 31 mcmol/L (11-34) Test 11/10/18 20:05 11/10/18 20:12 11/10/18 20:42 11/10/18 23:43 O2 Saturation 99 % (92-99) Arterial Blood pH 7.40 (7.35-7.45) Arterial Blood pH (Temp corrected) 7.43 Arterial Blood pCO2 at Patient Temp 25 mmHg (35-46) Arterial Blood pCO2 (Temp correct) 24 mmHg Arterial Blood pO2 at Patient Temp 289 mmHg (65-108) Arterial Blood pO2 (Temp corrected) 282 mmHg Arterial Blood HCO3 15 mmol/L (21-28) Arterial Blood Base Excess -8 mmol/L (-3-3) FiO2 100 Glucose (Fingerstick) 30 mg/dL (70-99) 161 mg/dL (70-99) 81 mg/dL (70-99) Test 11/11/18 02:35 11/11/18 02:36 11/11/18 03:00 11/11/18 05:05 White Blood Count 18.3 x10^3/uL (4.0-11.0) 16.1 x10^3/uL (4.0-11.0) Red Blood Count 2.29 x10^6/uL (3.50-5.40) 2.24 x10^6/uL (3.50-5.40) Hemoglobin 7.3 g/dL (12.0-15.5) 7.2 g/dL (12.0-15.5) Hematocrit 22.5 % (36.0-47.0) 22.4 % (36.0-47.0) Mean Corpuscular Volume 98 fL (79-100) 100 fL (79-100) Mean Corpuscular Hemoglobin 32 pg (25-35) 32 pg (25-35) Mean Corpuscular Hemoglobin Concent 33 g/dL (31-37) 32 g/dL (31-37) Red Cell Distribution Width 19.7 % (11.5-14.5) 20.1 % (11.5-14.5) Platelet Count 18 x10^3/uL (140-400) 25 x10^3/uL (140-400) Neutrophils (%) (Auto) 91 % (31-73) 90 % (31-73) Lymphocytes (%) (Auto) 1 % (24-48) 1 % (24-48) Monocytes (%) (Auto) 4 % (0-9) 4 % (0-9) Eosinophils (%) (Auto) 4 % (0-3) 5 % (0-3) Basophils (%) (Auto) 0 % (0-3) 0 % (0-3) Neutrophils # (Auto) 16.6 x10^3/uL (1.8-7.7) 14.5 x10^3/uL (1.8-7.7) Lymphocytes # (Auto) 0.1 x10^3/uL (1.0-4.8) 0.1 x10^3/uL (1.0-4.8) Monocytes # (Auto) 0.7 x10^3/uL (0.0-1.1) 0.6 x10^3/uL (0.0-1.1) Eosinophils # (Auto) 0.8 x10^3/uL (0.0-0.7) 0.8 x10^3/uL (0.0-0.7) Basophils # (Auto) 0.0 x10^3/uL (0.0-0.2) 0.1 x10^3/uL (0.0-0.2) Sodium Level 144 mmol/L (136-145) 144 mmol/L (136-145) Potassium Level 3.8 mmol/L (3.5-5.1) 4.3 mmol/L (3.5-5.1) Chloride Level 100 mmol/L (98-107) 100 mmol/L (98-107) Carbon Dioxide Level 15 mmol/L (21-32) 11 mmol/L (21-32) Anion Gap 29 (6-14) 33 (6-14) Blood Urea Nitrogen 47 mg/dL (7-20) 48 mg/dL (7-20) Creatinine 5.4 mg/dL (0.6-1.0) 5.5 mg/dL (0.6-1.0) Estimated GFR (Cockcroft-Gault) 8.0 7.9 BUN/Creatinine Ratio 9 (6-20) 9 (6-20) Glucose Level 43 mg/dL (70-99) 73 mg/dL (70-99) Calcium Level 8.7 mg/dL (8.5-10.1) 8.9 mg/dL (8.5-10.1) Total Bilirubin 4.0 mg/dL (0.2-1.0) 3.9 mg/dL (0.2-1.0) Aspartate Amino Transf (AST/SGOT) 934 U/L (15-37) 930 U/L (15-37) Alanine Aminotransferase (ALT/SGPT) 169 U/L (14-59) 173 U/L (14-59) Alkaline Phosphatase 166 U/L (46-116) 172 U/L (46-116) Total Protein 5.9 g/dL (6.4-8.2) 5.7 g/dL (6.4-8.2) Albumin 4.2 g/dL (3.4-5.0) 4.1 g/dL (3.4-5.0) Albumin/Globulin Ratio 2.5 (1.0-1.7) 2.6 (1.0-1.7) Glucose (Fingerstick) 41 mg/dL (70-99) 177 mg/dL (70-99) Test 11/11/18 06:30 11/11/18 07:15 11/11/18 08:00 Glucose (Fingerstick) 33 mg/dL (70-99) 122 mg/dL (70-99) 71 mg/dL (70-99) Micro Microbiology 11/08/18 Blood Culture - Preliminary, Resulted NO GROWTH AFTER 2 DAYS Objective Assessment 1. Sepsis with hypotension and lactic acidosis, 2. Acute pancreatitis. 3. Leukocytosis. 4. Multiple antibiotic allergies. 5. Left pleural effusion, status post PleurX catheter placement on 10/28/2018. 6. Cholelithiasis.Hyperbilirubinemia 7. Nonalcoholic steatohepatitis with ascites. Last paracentesis was on 11/04/2018. 6. Chronic kidney disease, on hemodialysis. Tunneled HD catheter exposure. 7. Right abdominal gland nodule seen on CT. Plan Plan of Care cont meropenem given healthcare exposure and h/o abx Vanc Last dose 11/08 restart vanco renal dosing add micafungin repeat bc f/u cultures and labs in am Local wound care and offloading of heels D/w nursing d/w Dr Guillen Critically ill prognosis poor LIMA PANCHAL MD Nov 11, 2018 08:27
[2018-11-11 08:48] LABS: FIO2 ABG 100
--- NOTE | 2018-11-11 08:53 | PDOC ---
PULMONARY PROGRESS NOTES Subjective intubated last night with worsening hypoxia, acidosis, shock on 2 max doses of pressors AC mode Vitals Vital Signs Date Time Temp Pulse Resp B/P (MAP) Pulse Ox O2 Delivery O2 Flow Rate FiO2 11/11/18 06:00 119 18 97/41 (59) 93 Ventilator 11/11/18 04:00 95.9 95.9 11/10/18 17:01 3.0 Lungs: Other (decrease bs) Cardiovascular: S1 Abdomen: Soft, Non-tender Extremities: Other (edema, echymosis) Labs Laboratory Tests Test 11/09/18 09:09 11/09/18 16:13 11/09/18 18:14 11/09/18 22:18 Glucose (Fingerstick) 78 mg/dL (70-99) 45 mg/dL (70-99) 102 mg/dL (70-99) 98 mg/dL (70-99) Test 11/10/18 05:10 11/10/18 08:15 11/10/18 09:10 11/10/18 10:55 Glucose (Fingerstick) 148 mg/dL (70-99) Sodium Level 135 mmol/L (136-145) Potassium Level 4.5 mmol/L (3.5-5.1) Chloride Level 97 mmol/L (98-107) Carbon Dioxide Level 9 mmol/L (21-32) Anion Gap 29 (6-14) Blood Urea Nitrogen 77 mg/dL (7-20) Creatinine 7.8 mg/dL (0.6-1.0) Estimated GFR (Cockcroft-Gault) 5.2 Glucose Level 98 mg/dL (70-99) Calcium Level 9.4 mg/dL (8.5-10.1) Random Vancomycin Level 24.2 mcg/mL O2 Saturation 70 % (92-99) Arterial Blood pH 6.95 (7.35-7.45) Arterial Blood pH (Temp corrected) 6.97 Arterial Blood pCO2 at Patient Temp 38 mmHg (35-46) Arterial Blood pCO2 (Temp correct) 35 mmHg Arterial Blood pO2 at Patient Temp 56 mmHg (65-108) Arterial Blood pO2 (Temp corrected) 50 mmHg Arterial Blood HCO3 8 mmol/L (21-28) Arterial Blood Base Excess -23 mmol/L (-3-3) Oxyhemoglobin 69.0 % Methemoglobin 0.3 % (0.0-1.9) Carbon Monoxide, Quantitative 0.4 % (0.0-1.9) FiO2 28 White Blood Count 14.7 x10^3/uL (4.0-11.0) Red Blood Count 3.33 x10^6/uL (3.50-5.40) Hemoglobin 10.7 g/dL (12.0-15.5) Hematocrit 33.9 % (36.0-47.0) Mean Corpuscular Volume 102 fL (79-100) Mean Corpuscular Hemoglobin 32 pg (25-35) Mean Corpuscular Hemoglobin Concent 32 g/dL (31-37) Red Cell Distribution Width 20.1 % (11.5-14.5) Platelet Count 36 x10^3/uL (140-400) Neutrophils (%) (Auto) 94 % (31-73) Lymphocytes (%) (Auto) 2 % (24-48) Monocytes (%) (Auto) 2 % (0-9) Eosinophils (%) (Auto) 1 % (0-3) Basophils (%) (Auto) 1 % (0-3) Neutrophils # (Auto) 13.8 x10^3/uL (1.8-7.7) Lymphocytes # (Auto) 0.3 x10^3/uL (1.0-4.8) Monocytes # (Auto) 0.3 x10^3/uL (0.0-1.1) Eosinophils # (Auto) 0.1 x10^3/uL (0.0-0.7) Basophils # (Auto) 0.2 x10^3/uL (0.0-0.2) Prothrombin Time 30.2 SEC (11.7-14.0) Prothromb Time International Ratio 2.9 (0.8-1.1) Lactic Acid Level 10.7 mmol/L (0.4-2.0) Test 11/10/18 15:40 11/10/18 17:30 11/10/18 20:05 11/10/18 20:12 Lactic Acid Level 7.7 mmol/L (0.4-2.0) Ammonia 31 mcmol/L (11-34) O2 Saturation 39 % (92-99) 99 % (92-99) Arterial Blood pH 7.12 (7.35-7.45) 7.40 (7.35-7.45) Arterial Blood pH (Temp corrected) 7.14 7.43 Arterial Blood pCO2 at Patient Temp 54 mmHg (35-46) 25 mmHg (35-46) Arterial Blood pCO2 (Temp correct) 50 mmHg 24 mmHg Arterial Blood pO2 at Patient Temp < 42 mmHg (65-108) 289 mmHg (65-108) Arterial Blood pO2 (Temp corrected) 29 mmHg 282 mmHg Arterial Blood HCO3 17 mmol/L (21-28) 15 mmol/L (21-28) Arterial Blood Base Excess -12 mmol/L (-3-3) -8 mmol/L (-3-3) FiO2 50 100 Glucose (Fingerstick) 30 mg/dL (70-99) Test 11/10/18 20:42 11/10/18 23:43 11/11/18 02:35 11/11/18 02:36 Glucose (Fingerstick) 161 mg/dL (70-99) 81 mg/dL (70-99) 41 mg/dL (70-99) White Blood Count 18.3 x10^3/uL (4.0-11.0) Red Blood Count 2.29 x10^6/uL (3.50-5.40) Hemoglobin 7.3 g/dL (12.0-15.5) Hematocrit 22.5 % (36.0-47.0) Mean Corpuscular Volume 98 fL (79-100) Mean Corpuscular Hemoglobin 32 pg (25-35) Mean Corpuscular Hemoglobin Concent 33 g/dL (31-37) Red Cell Distribution Width 19.7 % (11.5-14.5) Platelet Count 18 x10^3/uL (140-400) Neutrophils (%) (Auto) 91 % (31-73) Lymphocytes (%) (Auto) 1 % (24-48) Monocytes (%) (Auto) 4 % (0-9) Eosinophils (%) (Auto) 4 % (0-3) Basophils (%) (Auto) 0 % (0-3) Neutrophils # (Auto) 16.6 x10^3/uL (1.8-7.7) Lymphocytes # (Auto) 0.1 x10^3/uL (1.0-4.8) Monocytes # (Auto) 0.7 x10^3/uL (0.0-1.1) Eosinophils # (Auto) 0.8 x10^3/uL (0.0-0.7) Basophils # (Auto) 0.0 x10^3/uL (0.0-0.2) Sodium Level 144 mmol/L (136-145) Potassium Level 3.8 mmol/L (3.5-5.1) Chloride Level 100 mmol/L (98-107) Carbon Dioxide Level 15 mmol/L (21-32) Anion Gap 29 (6-14) Blood Urea Nitrogen 47 mg/dL (7-20) Creatinine 5.4 mg/dL (0.6-1.0) Estimated GFR (Cockcroft-Gault) 8.0 BUN/Creatinine Ratio 9 (6-20) Glucose Level 43 mg/dL (70-99) Calcium Level 8.7 mg/dL (8.5-10.1) Total Bilirubin 4.0 mg/dL (0.2-1.0) Aspartate Amino Transf (AST/SGOT) 934 U/L (15-37) Alanine Aminotransferase (ALT/SGPT) 169 U/L (14-59) Alkaline Phosphatase 166 U/L (46-116) Total Protein 5.9 g/dL (6.4-8.2) Albumin 4.2 g/dL (3.4-5.0) Albumin/Globulin Ratio 2.5 (1.0-1.7) Test 11/11/18 03:00 11/11/18 05:05 11/11/18 06:30 11/11/18 07:15 Glucose (Fingerstick) 177 mg/dL (70-99) 33 mg/dL (70-99) 122 mg/dL (70-99) White Blood Count 16.1 x10^3/uL (4.0-11.0) Red Blood Count 2.24 x10^6/uL (3.50-5.40) Hemoglobin 7.2 g/dL (12.0-15.5) Hematocrit 22.4 % (36.0-47.0) Mean Corpuscular Volume 100 fL (79-100) Mean Corpuscular Hemoglobin 32 pg (25-35) Mean Corpuscular Hemoglobin Concent 32 g/dL (31-37) Red Cell Distribution Width 20.1 % (11.5-14.5) Platelet Count 25 x10^3/uL (140-400) Neutrophils (%) (Auto) 90 % (31-73) Lymphocytes (%) (Auto) 1 % (24-48) Monocytes (%) (Auto) 4 % (0-9) Eosinophils (%) (Auto) 5 % (0-3) Basophils (%) (Auto) 0 % (0-3) Neutrophils # (Auto) 14.5 x10^3/uL (1.8-7.7) Lymphocytes # (Auto) 0.1 x10^3/uL (1.0-4.8) Monocytes # (Auto) 0.6 x10^3/uL (0.0-1.1) Eosinophils # (Auto) 0.8 x10^3/uL (0.0-0.7) Basophils # (Auto) 0.1 x10^3/uL (0.0-0.2) Sodium Level 144 mmol/L (136-145) Potassium Level 4.3 mmol/L (3.5-5.1) Chloride Level 100 mmol/L (98-107) Carbon Dioxide Level 11 mmol/L (21-32) Anion Gap 33 (6-14) Blood Urea Nitrogen 48 mg/dL (7-20) Creatinine 5.5 mg/dL (0.6-1.0) Estimated GFR (Cockcroft-Gault) 7.9 BUN/Creatinine Ratio 9 (6-20) Glucose Level 73 mg/dL (70-99) Calcium Level 8.9 mg/dL (8.5-10.1) Total Bilirubin 3.9 mg/dL (0.2-1.0) Aspartate Amino Transf (AST/SGOT) 930 U/L (15-37) Alanine Aminotransferase (ALT/SGPT) 173 U/L (14-59) Alkaline Phosphatase 172 U/L (46-116) Total Protein 5.7 g/dL (6.4-8.2) Albumin 4.1 g/dL (3.4-5.0) Albumin/Globulin Ratio 2.6 (1.0-1.7) Test 11/11/18 08:00 Glucose (Fingerstick) 71 mg/dL (70-99) Laboratory Tests Test 11/10/18 09:10 11/10/18 10:55 7/22/19 15:40 11/10/18 17:30 O2 Saturation 70 % (92-99) 39 % (92-99) Arterial Blood pH 6.95 (7.35-7.45) 7.12 (7.35-7.45) Arterial Blood pH (Temp corrected) 6.97 7.14 Arterial Blood pCO2 at Patient Temp 38 mmHg (35-46) 54 mmHg (35-46) Arterial Blood pCO2 (Temp correct) 35 mmHg 50 mmHg Arterial Blood pO2 at Patient Temp 56 mmHg (65-108) < 42 mmHg (65-108) Arterial Blood pO2 (Temp corrected) 50 mmHg 29 mmHg Arterial Blood HCO3 8 mmol/L (21-28) 17 mmol/L (21-28) Arterial Blood Base Excess -23 mmol/L (-3-3) -12 mmol/L (-3-3) Oxyhemoglobin 69.0 % Methemoglobin 0.3 % (0.0-1.9) Carbon Monoxide, Quantitative 0.4 % (0.0-1.9) FiO2 28 50 White Blood Count 14.7 x10^3/uL (4.0-11.0) Red Blood Count 3.33 x10^6/uL (3.50-5.40) Hemoglobin 10.7 g/dL (12.0-15.5) Hematocrit 33.9 % (36.0-47.0) Mean Corpuscular Volume 102 fL (79-100) Mean Corpuscular Hemoglobin 32 pg (25-35) Mean Corpuscular Hemoglobin Concent 32 g/dL (31-37) Red Cell Distribution Width 20.1 % (11.5-14.5) Platelet Count 36 x10^3/uL (140-400) Neutrophils (%) (Auto) 94 % (31-73) Lymphocytes (%) (Auto) 2 % (24-48) Monocytes (%) (Auto) 2 % (0-9) Eosinophils (%) (Auto) 1 % (0-3) Basophils (%) (Auto) 1 % (0-3) Neutrophils # (Auto) 13.8 x10^3/uL (1.8-7.7) Lymphocytes # (Auto) 0.3 x10^3/uL (1.0-4.8) Monocytes # (Auto) 0.3 x10^3/uL (0.0-1.1) Eosinophils # (Auto) 0.1 x10^3/uL (0.0-0.7) Basophils # (Auto) 0.2 x10^3/uL (0.0-0.2) Prothrombin Time 30.2 SEC (11.7-14.0) Prothromb Time International Ratio 2.9 (0.8-1.1) Lactic Acid Level 10.7 mmol/L (0.4-2.0) 7.7 mmol/L (0.4-2.0) Ammonia 31 mcmol/L (11-34) Test 11/10/18 20:05 11/10/18 20:12 11/10/18 20:42 11/10/18 23:43 O2 Saturation 99 % (92-99) Arterial Blood pH 7.40 (7.35-7.45) Arterial Blood pH (Temp corrected) 7.43 Arterial Blood pCO2 at Patient Temp 25 mmHg (35-46) Arterial Blood pCO2 (Temp correct) 24 mmHg Arterial Blood pO2 at Patient Temp 289 mmHg (65-108) Arterial Blood pO2 (Temp corrected) 282 mmHg Arterial Blood HCO3 15 mmol/L (21-28) Arterial Blood Base Excess -8 mmol/L (-3-3) FiO2 100 Glucose (Fingerstick) 30 mg/dL (70-99) 161 mg/dL (70-99) 81 mg/dL (70-99) Test 11/11/18 02:35 11/11/18 02:36 11/11/18 03:00 11/11/18 05:05 White Blood Count 18.3 x10^3/uL (4.0-11.0) 16.1 x10^3/uL (4.0-11.0) Red Blood Count 2.29 x10^6/uL (3.50-5.40) 2.24 x10^6/uL (3.50-5.40) Hemoglobin 7.3 g/dL (12.0-15.5) 7.2 g/dL (12.0-15.5) Hematocrit 22.5 % (36.0-47.0) 22.4 % (36.0-47.0) Mean Corpuscular Volume 98 fL (79-100) 100 fL (79-100) Mean Corpuscular Hemoglobin 32 pg (25-35) 32 pg (25-35) Mean Corpuscular Hemoglobin Concent 33 g/dL (31-37) 32 g/dL (31-37) Red Cell Distribution Width 19.7 % (11.5-14.5) 20.1 % (11.5-14.5) Platelet Count 18 x10^3/uL (140-400) 25 x10^3/uL (140-400) Neutrophils (%) (Auto) 91 % (31-73) 90 % (31-73) Lymphocytes (%) (Auto) 1 % (24-48) 1 % (24-48) Monocytes (%) (Auto) 4 % (0-9) 4 % (0-9) Eosinophils (%) (Auto) 4 % (0-3) 5 % (0-3) Basophils (%) (Auto) 0 % (0-3) 0 % (0-3) Neutrophils # (Auto) 16.6 x10^3/uL (1.8-7.7) 14.5 x10^3/uL (1.8-7.7) Lymphocytes # (Auto) 0.1 x10^3/uL (1.0-4.8) 0.1 x10^3/uL (1.0-4.8) Monocytes # (Auto) 0.7 x10^3/uL (0.0-1.1) 0.6 x10^3/uL (0.0-1.1) Eosinophils # (Auto) 0.8 x10^3/uL (0.0-0.7) 0.8 x10^3/uL (0.0-0.7) Basophils # (Auto) 0.0 x10^3/uL (0.0-0.2) 0.1 x10^3/uL (0.0-0.2) Sodium Level 144 mmol/L (136-145) 144 mmol/L (136-145) Potassium Level 3.8 mmol/L (3.5-5.1) 4.3 mmol/L (3.5-5.1) Chloride Level 100 mmol/L (98-107) 100 mmol/L (98-107) Carbon Dioxide Level 15 mmol/L (21-32) 11 mmol/L (21-32) Anion Gap 29 (6-14) 33 (6-14) Blood Urea Nitrogen 47 mg/dL (7-20) 48 mg/dL (7-20) Creatinine 5.4 mg/dL (0.6-1.0) 5.5 mg/dL (0.6-1.0) Estimated GFR (Cockcroft-Gault) 8.0 7.9 BUN/Creatinine Ratio 9 (6-20) 9 (6-20) Glucose Level 43 mg/dL (70-99) 73 mg/dL (70-99) Calcium Level 8.7 mg/dL (8.5-10.1) 8.9 mg/dL (8.5-10.1) Total Bilirubin 4.0 mg/dL (0.2-1.0) 3.9 mg/dL (0.2-1.0) Aspartate Amino Transf (AST/SGOT) 934 U/L (15-37) 930 U/L (15-37) Alanine Aminotransferase (ALT/SGPT) 169 U/L (14-59) 173 U/L (14-59) Alkaline Phosphatase 166 U/L (46-116) 172 U/L (46-116) Total Protein 5.9 g/dL (6.4-8.2) 5.7 g/dL (6.4-8.2) Albumin 4.2 g/dL (3.4-5.0) 4.1 g/dL (3.4-5.0) Albumin/Globulin Ratio 2.5 (1.0-1.7) 2.6 (1.0-1.7) Glucose (Fingerstick) 41 mg/dL (70-99) 177 mg/dL (70-99) Test 11/11/18 06:30 11/11/18 07:15 11/11/18 08:00 Glucose (Fingerstick) 33 mg/dL (70-99) 122 mg/dL (70-99) 71 mg/dL (70-99) Medications Active Scripts Medications Dose Route/Sig Max Daily Dose Days Date Category Dose Instructions Culturelle (Lactobacillus Rhamnosus Gg) 1 Each Cap.sprink 1 Cap PO BID 14 10/29/18 Rx Major-Prep Hemorrhoidal Oint (Phenyleph/Mineral Oil/Petrolat) 57 Gm Oint.appl 1 Efe RC PRN QID PRN 14 10/21/18 Rx Nystatin 15 Gm Oint...g. 1 Efe TP BID 30 10/21/18 Rx Clotrimazole 10 Mg Vielka 10 Mg MM BID 10 10/21/18 Rx Benzonatate 100 Mg Capsule 100 Mg PO PRN Q6HRS PRN 10 10/21/18 Rx Proair Hfa (Albuterol Sulfate) 8.5 Gm Hfa.aer.ad 2.5 Mg NEB PRN Q6HRS PRN 30 10/21/18 Rx Midodrine Hcl 5 Mg Tablet 10 Mg PO [id number] 14 09/10/18 Rx Benadryl (Diphenhydramine Hcl) 25 Mg Capsule 25 Mg PO PRN Q6HRS PRN 08/12/18 Reported Calcium Acetate 667 Mg Tablet 667 Mg PO TIDWMEALS 07/03/18 Reported Dialyvite Tablet (Folic Acid/Vitamin B Comp W-C) 1 Each Tablet 1 Each PO QMWF 07/03/18 Reported Omeprazole 40 Mg Capsule.dr 1 Cap PO DAILY 05/01/18 Reported Xifaxan (Rifaximin) 550 Mg Tablet 1 Tab PO BID 02/07/18 Reported Fusion Plus Capsule (Iron,Fum&Ps/Fa/Vit B&C#18/L.ca) 1 Each Capsule 1 Each PO DAILY 05/09/17 Reported Albuterol Sulfate Conc Neb Soln (Albuterol Sulfate) 2.5 Mg/0.5 Ml Vial.neb 2.5 Mg NEB Q6HRS PRN 08/03/15 Reported Lactulose 20 Gm/30 Ml Solution 20 Gm PO TID 08/03/15 Reported Lantus Solostar (Insulin Glargine,Hum.rec.anlog) 100 Unit/1 Ml Insuln.pen 40 Units SQ DAILY08 06/10/13 Reported SSI Calcium + Vitamin D Tablet (Calcium Carbonate/Vitamin D3) 1 Each Tablet 1 Each PO DAILY 06/02/13 Reported Novolog Flexpen (Insulin Aspart) 100 Unit/1 Ml Insuln.pen 0 SQ TIDAC 06/02/13 Reported 0-149: 0 units 150-199: 2 units 200-249: 4 units 250-299: 6 units 300-349: 8 units 350-399: 10 units >400: Call Synthroid (Levothyroxine Sodium) 25 Mcg Tablet 300 Mcg PO DAILY 06/02/13 Reported Flovent 110MCG Hfa (Fluticasone Propionate) 12 Gm Aer.w.adap 1 Puff IH DAILY 06/02/13 Reported Comments CXR 11/11 Improved left effusion ET high Impression . 1. Acute respiratory failure due to septic shock, acute pancreatitis. 2. Septic shock, related to acute pancreatitis., on multiple pressors 3. Acute pancreatitis, likely alcoholic. needs repeat lipase 3. Completely shama out left lung, likely related to recurrent left-sided pleural effusion, improved. PleurX catheter was drained yesterday. 1800 cc. 4. severe metabolic acidosis due to lactic acidosis 5. Severe protein-calorie malnutrition. 6. History of cirrhosis with ascites. ESLD per GI 7. Underlying chronic obstructive pulmonary disease without exacerbation. 8. High risk for ARDS/ALI 9. ESRD/ HD 10. Thrombocytopenia due to septic shock 11. shock liver Plan . 1. Continue with present AC mode and make changes based on ABG. d/w RT 2. Pressors, keep SBP > 90 3. Monitor platelets. pupils fixed. not stable to go to ct head 4. s/p removal of the left-sided effusion via PleurX catheter. 5. s/p albumin 500 mL x 2 post drainage. 6. Continue broad-spectrum antibiotics including antifungal. 7. Continue hydrocortisone at the present dose. 8. Follow all cultures. 9. Follow renal recommendation. 10. Follow Infectious Disease recommendation. 11. Discussed with RN and RT. advance ET by 2 cm 12. Prognosis poor. message left for daughter. would recommend DNR spoke with son. Prognosis explained. He agrees with no CPR but wants to run by his sister We will follow along with you. Critical care time 35 minutes. CRISTIAN AGUIRRE MD Nov 11, 2018 08:53
[2018-11-11 08:59] LABS: HEMATOCRIT 21.7 % (36.0-47.0); RED BLOOD COUNT 2.1 x10^6/uL (3.50-5.40); RED CELL DISTRIBUTION WIDTH 20.6 % (11.5-14.5); WHITE BLOOD COUNT 13.5 x10^3/uL (4.0-11.0)
[2018-11-11] MEDS: NYSTATIN 100,000 UNIT/GM TOPICAL OINTMENT 15GM TUBE. TP SCH (09:00)
[2018-11-11] MEDS: MEROPENEM 500 MG in IV NORMAL SALINE 50ML 50 ML IV SCH (09:05)
[2018-11-11 09:15] LABS: HEMOGLOBIN 6.8 g/dL (12.0-15.5)
--- NOTE | 2018-11-11 09:24 | PDOC ---
Objective: Objective: D/w Dr. Emmie Guadalupe pt's son reports no h/o alcohol abuse. He is talking w/ family re: DNR. Vital Signs: Vital Signs Date Time Temp Pulse Resp B/P (MAP) Pulse Ox O2 Delivery O2 Flow Rate FiO2 11/11/18 08:00 92 Ventilator 11/11/18 06:00 119 18 97/41 (59) 11/11/18 04:00 95.9 95.9 11/10/18 17:01 3.0 Labs: Laboratory Tests Test 11/10/18 10:55 11/10/18 15:40 11/10/18 17:30 11/10/18 20:05 White Blood Count 14.7 x10^3/uL Red Blood Count 3.33 x10^6/uL Hemoglobin 10.7 g/dL Hematocrit 33.9 % Mean Corpuscular Volume 102 fL Mean Corpuscular Hemoglobin 32 pg Mean Corpuscular Hemoglobin Concent 32 g/dL Red Cell Distribution Width 20.1 % Platelet Count 36 x10^3/uL Neutrophils (%) (Auto) 94 % Lymphocytes (%) (Auto) 2 % Monocytes (%) (Auto) 2 % Eosinophils (%) (Auto) 1 % Basophils (%) (Auto) 1 % Neutrophils # (Auto) 13.8 x10^3/uL Lymphocytes # (Auto) 0.3 x10^3/uL Monocytes # (Auto) 0.3 x10^3/uL Eosinophils # (Auto) 0.1 x10^3/uL Basophils # (Auto) 0.2 x10^3/uL Prothrombin Time 30.2 SEC Prothromb Time International Ratio 2.9 Lactic Acid Level 10.7 mmol/L 7.7 mmol/L Ammonia 31 mcmol/L O2 Saturation 39 % 99 % Arterial Blood pH 7.12 7.40 Arterial Blood pH (Temp corrected) 7.14 7.43 Arterial Blood pCO2 at Patient Temp 54 mmHg 25 mmHg Arterial Blood pCO2 (Temp correct) 50 mmHg 24 mmHg Arterial Blood pO2 at Patient Temp < 42 mmHg 289 mmHg Arterial Blood pO2 (Temp corrected) 29 mmHg 282 mmHg Arterial Blood HCO3 17 mmol/L 15 mmol/L Arterial Blood Base Excess -12 mmol/L -8 mmol/L FiO2 50 100 Test 11/10/18 20:12 11/10/18 20:42 11/10/18 23:43 11/11/18 02:35 Glucose (Fingerstick) 30 mg/dL 161 mg/dL 81 mg/dL White Blood Count 18.3 x10^3/uL Red Blood Count 2.29 x10^6/uL Hemoglobin 7.3 g/dL Hematocrit 22.5 % Mean Corpuscular Volume 98 fL Mean Corpuscular Hemoglobin 32 pg Mean Corpuscular Hemoglobin Concent 33 g/dL Red Cell Distribution Width 19.7 % Platelet Count 18 x10^3/uL Neutrophils (%) (Auto) 91 % Lymphocytes (%) (Auto) 1 % Monocytes (%) (Auto) 4 % Eosinophils (%) (Auto) 4 % Basophils (%) (Auto) 0 % Neutrophils # (Auto) 16.6 x10^3/uL Lymphocytes # (Auto) 0.1 x10^3/uL Monocytes # (Auto) 0.7 x10^3/uL Eosinophils # (Auto) 0.8 x10^3/uL Basophils # (Auto) 0.0 x10^3/uL Sodium Level 144 mmol/L Potassium Level 3.8 mmol/L Chloride Level 100 mmol/L Carbon Dioxide Level 15 mmol/L Anion Gap 29 Blood Urea Nitrogen 47 mg/dL Creatinine 5.4 mg/dL Estimated GFR (Cockcroft-Gault) 8.0 BUN/Creatinine Ratio 9 Glucose Level 43 mg/dL Calcium Level 8.7 mg/dL Total Bilirubin 4.0 mg/dL Aspartate Amino Transf (AST/SGOT) 934 U/L Alanine Aminotransferase (ALT/SGPT) 169 U/L Alkaline Phosphatase 166 U/L Total Protein 5.9 g/dL Albumin 4.2 g/dL Albumin/Globulin Ratio 2.5 Test 11/11/18 02:36 11/11/18 03:00 11/11/18 05:05 11/11/18 06:30 Glucose (Fingerstick) 41 mg/dL 177 mg/dL 33 mg/dL White Blood Count 16.1 x10^3/uL Red Blood Count 2.24 x10^6/uL Hemoglobin 7.2 g/dL Hematocrit 22.4 % Mean Corpuscular Volume 100 fL Mean Corpuscular Hemoglobin 32 pg Mean Corpuscular Hemoglobin Concent 32 g/dL Red Cell Distribution Width 20.1 % Platelet Count 25 x10^3/uL Neutrophils (%) (Auto) 90 % Lymphocytes (%) (Auto) 1 % Monocytes (%) (Auto) 4 % Eosinophils (%) (Auto) 5 % Basophils (%) (Auto) 0 % Neutrophils # (Auto) 14.5 x10^3/uL Lymphocytes # (Auto) 0.1 x10^3/uL Monocytes # (Auto) 0.6 x10^3/uL Eosinophils # (Auto) 0.8 x10^3/uL Basophils # (Auto) 0.1 x10^3/uL Sodium Level 144 mmol/L Potassium Level 4.3 mmol/L Chloride Level 100 mmol/L Carbon Dioxide Level 11 mmol/L Anion Gap 33 Blood Urea Nitrogen 48 mg/dL Creatinine 5.5 mg/dL Estimated GFR (Cockcroft-Gault) 7.9 BUN/Creatinine Ratio 9 Glucose Level 73 mg/dL Calcium Level 8.9 mg/dL Total Bilirubin 3.9 mg/dL Aspartate Amino Transf (AST/SGOT) 930 U/L Alanine Aminotransferase (ALT/SGPT) 173 U/L Alkaline Phosphatase 172 U/L Total Protein 5.7 g/dL Albumin 4.1 g/dL Albumin/Globulin Ratio 2.6 Test 11/11/18 07:15 11/11/18 08:00 11/11/18 08:30 11/11/18 08:40 Glucose (Fingerstick) 122 mg/dL 71 mg/dL O2 Saturation 99 % Arterial Blood pH 7.10 Arterial Blood pCO2 at Patient Temp 21 mmHg Arterial Blood pO2 at Patient Temp 329 mmHg Arterial Blood HCO3 6 mmol/L Arterial Blood Base Excess -21 mmol/L FiO2 100 White Blood Count 13.5 x10^3/uL Red Blood Count 2.10 x10^6/uL Hemoglobin 6.8 g/dL Hematocrit 21.7 % Mean Corpuscular Volume 103 fL Mean Corpuscular Hemoglobin 33 pg Mean Corpuscular Hemoglobin Concent 32 g/dL Red Cell Distribution Width 20.6 % Platelet Count 21 x10^3/uL PE: GEN: warming LUNGS: vent NEURO/PSYCH: lightly sedated/unresponsive A/P: Sepsis/shock Pancreatitis, cholelithiasis - normal pancreas on noncontrast CT ESLD, ESRD - LFTs worse likely 2/2 hypotension; plt 21 -- Await family's decisions. JENNIE ABRAMS Nov 11, 2018 09:24
--- NOTE | 2018-11-11 09:52 | CONS ---
DATE OF CONSULTATION: 11/09/2018 Leon Arguello, nurse practitioner, dictating for Kemi Panchal MD, Infectious Disease. REFERRING PHYSICIAN: Darion Infante MD REASON FOR CONSULTATION: Sepsis. HISTORY OF PRESENT ILLNESS: This patient is a 63-year-old female with past medical history of end-stage liver disease, chronic kidney disease, on hemodialysis via a tunneled HD catheter and diabetes, who presented with abdominal pain, nausea, and a lipase of 9171. She was hypotensive, requiring IV fluids and a brief duration of vasopressor support. Abdominal/pelvic CT scan showed numerous gallstones and a noncontrast appearance of the pancreas within normal limits. A large left and small right pleural effusion with adjacent consolidation of the lung parenchyma, which may be from atelectasis, although underlying pneumonia is not ruled out. She was admitted to the Intensive Care Unit and is currently on vancomycin and Zosyn. The patient is tolerating ice chips well. She continues to complain of abdominal pain though. She has had several loose stools. Denies vomiting. Denies shortness of air or chest discomfort. Denies fevers or chills. She has had at least 9 hospital admissions within the last 6 months and has been on multiple antibiotics consisting of gentamicin, ciprofloxacin, cefazolin, Zosyn, and Zyvox as well. PAST MEDICAL HISTORY: VRE, Proteus mirabilis, and Klebsiella aerogenes, urinary tract infection. History of MRSA and Clostridium difficile infection. End-stage liver disease, ascites, recurrent pleural effusion, status post PleurX catheter placement on 10/28/2018. Chronic kidney disease, on hemodialysis via tunneled HD catheter, diabetes, peripheral neuropathy, hyperlipidemia, hypertension, COPD, asthma, esophageal varices, ascites, portal venous hypertension, GERD, hypothyroidism, depression, anxiety. PAST SURGICAL HISTORY: Port-A-Cath placement, HD catheter placement, paracentesis, cataract extraction, tonsillectomy, adenoidectomy, exploratory laparotomy, hysterectomy. SOCIAL HISTORY: The patient lives at home. At one point, she was on hospice and had recently changed her mind. She says her daughter helps care for her. FAMILY HISTORY: Hyperlipidemia and hypertension. ALLERGIES: SULFA, CEPHALEXIN, DOXYCYCLINE, ERYTHROMYCIN. She has tolerated Zosyn. MEDICATIONS: Vancomycin and Zosyn. Other medications are available and have been reviewed on the JUN. PHYSICAL EXAMINATION: VITAL SIGNS: Temperature is 97.3, blood pressure 85/29, heart rate 121, respiratory rate 18, pulse oximetry is 95% on 2 liters oxygen. BMI 28. GENERAL: The patient is slightly propped up in bed, awake, in no apparent distress. HEENT: Pupils equally round and reactive. LUNGS: Diminished aeration. Left PleurX catheter. HEART: S1, S2. ABDOMEN: Obese, soft, tender. Bowel sounds present. EXTREMITIES: No gross edema or cyanosis. SKIN: Warm without signs of rash. Both heels are boggy. She has dressings on her arms. NEUROLOGIC: Alert. Answers simple questions appropriately. Port-A-Cath without signs of any complications. HD catheter exposed as the dressing is off. No redness or drainage. LABORATORY DATA: Today's WBC 15.9 from 16.1 on admission, hemoglobin 12.1, platelets 55,000. Sodium 132, potassium 4.1, creatinine 7.3, BUN 72, glucose 99. Lactic acid 3.9. Total bilirubin 2.4, AST 48, ALT 30. BNP 6077. Troponin 0.075. Albumin 2.3. Lipase 9171. Urinalysis with C and S and blood cultures pending. MRSA screen pending. Abdominal/pelvis CT per HPI. Also, showed cirrhosis with evidence of portal venous hypertension. No bowel obstruction. Right abdominal gland nodule, atypical for classic adenoma. Chest x-ray showed stable large left pleural effusion. Underlying left lung pneumonia not ruled out. Diffuse interstitial opacities suggesting interstitial pulmonary edema. ASSESSMENT: Pt with recurrent hospitalization, was last dc per staff on hospice. 1. Sepsis with hypotension and lactic acidosis, now off Levophed. 2. Acute pancreatitis. 3. Leukocytosis. 4. Multiple antibiotic allergies. 5. Left pleural effusion, status post PleurX catheter placement on 10/28/2018. 6. Cholelithiasis. 7. Nonalcoholic steatohepatitis with ascites. Last paracentesis was on 11/04/2018. 6. Chronic kidney disease, on hemodialysis. Tunneled HD catheter exposure. 7. Right abdominal gland nodule seen on CT. 8. History of vancomycin-resistant enterococci (penicillin-resistant) and Gram-negative urinary tract infections; Methicillin-resistant Staphylococcus aureus and Clostridium difficile infection. PLAN: Given the patient's multiple hospital admissions and use of antibiotics, we will switch Zosyn to meropenem. Will hold Vancomycin . Will modify treatment per further data and clinical condition. We will follow up on culture results. Repeat labs in the morning. Procalcitonin level pending. HD catheter to be redressed. Local wound care and offloading of . Discussed with nursing. Thank you, Dr. Infante, for asking us to participate in this patient's care. Should you have further questions or concerns, please call. KEMI PANCHAL MD DR: KRYSTEN/rebeka JOB#: [id number] / [id number] RADHA
[2018-11-11] MEDS: MICAFUNGIN 100 MG in IV DEXTROSE 5% 100ML 100 ML IV SCH (09:57)
--- NOTE | 2018-11-11 10:15 | NUR ---
Wound Care Wound care consult for buttock and heel wounds. Pt unstable at this time per RN. Will follow up tomorrow.
--- NOTE | 2018-11-11 11:28 | PDOC ---
Renal-Progress Notes Subjective Notes Notes INTUBATED History of Present Illness Hx of present illness NO CHANGE Vitals Vitals Vital Signs Date Time Temp Pulse Resp B/P (MAP) Pulse Ox O2 Delivery O2 Flow Rate FiO2 11/11/18 10:01 Ventilator 11/11/18 10:00 112 18 60/45 (50) 11/11/18 09:00 90 11/11/18 07:00 98.2 98.2 11/10/18 17:01 3.0 Weight Weight [ ] I.O. Intake and Output Intake and Output 11/11/18 06:59 Intake Total 4954.26 ml Output Total 2000 ml Balance 2954.26 ml Intake Oral 0 ml IV Total 4954.26 ml Output Urine Total 0 ml Gastric Drainage Total 200 ml Drainage Total 1800 ml Labs Labs Laboratory Tests Test 11/10/18 15:40 11/10/18 17:30 11/10/18 20:05 11/10/18 20:12 Lactic Acid Level 7.7 mmol/L (0.4-2.0) Ammonia 31 mcmol/L (11-34) O2 Saturation 39 % (92-99) 99 % (92-99) Arterial Blood pH 7.12 (7.35-7.45) 7.40 (7.35-7.45) Arterial Blood pH (Temp corrected) 7.14 7.43 Arterial Blood pCO2 at Patient Temp 54 mmHg (35-46) 25 mmHg (35-46) Arterial Blood pCO2 (Temp correct) 50 mmHg 24 mmHg Arterial Blood pO2 at Patient Temp < 42 mmHg (65-108) 289 mmHg (65-108) Arterial Blood pO2 (Temp corrected) 29 mmHg 282 mmHg Arterial Blood HCO3 17 mmol/L (21-28) 15 mmol/L (21-28) Arterial Blood Base Excess -12 mmol/L (-3-3) -8 mmol/L (-3-3) FiO2 50 100 Glucose (Fingerstick) 30 mg/dL (70-99) Test 11/10/18 20:42 11/10/18 23:43 11/11/18 02:35 11/11/18 02:36 Glucose (Fingerstick) 161 mg/dL (70-99) 81 mg/dL (70-99) 41 mg/dL (70-99) White Blood Count 18.3 x10^3/uL (4.0-11.0) Red Blood Count 2.29 x10^6/uL (3.50-5.40) Hemoglobin 7.3 g/dL (12.0-15.5) Hematocrit 22.5 % (36.0-47.0) Mean Corpuscular Volume 98 fL (79-100) Mean Corpuscular Hemoglobin 32 pg (25-35) Mean Corpuscular Hemoglobin Concent 33 g/dL (31-37) Red Cell Distribution Width 19.7 % (11.5-14.5) Platelet Count 18 x10^3/uL (140-400) Neutrophils (%) (Auto) 91 % (31-73) Lymphocytes (%) (Auto) 1 % (24-48) Monocytes (%) (Auto) 4 % (0-9) Eosinophils (%) (Auto) 4 % (0-3) Basophils (%) (Auto) 0 % (0-3) Neutrophils # (Auto) 16.6 x10^3/uL (1.8-7.7) Lymphocytes # (Auto) 0.1 x10^3/uL (1.0-4.8) Monocytes # (Auto) 0.7 x10^3/uL (0.0-1.1) Eosinophils # (Auto) 0.8 x10^3/uL (0.0-0.7) Basophils # (Auto) 0.0 x10^3/uL (0.0-0.2) Sodium Level 144 mmol/L (136-145) Potassium Level 3.8 mmol/L (3.5-5.1) Chloride Level 100 mmol/L (98-107) Carbon Dioxide Level 15 mmol/L (21-32) Anion Gap 29 (6-14) Blood Urea Nitrogen 47 mg/dL (7-20) Creatinine 5.4 mg/dL (0.6-1.0) Estimated GFR (Cockcroft-Gault) 8.0 BUN/Creatinine Ratio 9 (6-20) Glucose Level 43 mg/dL (70-99) Calcium Level 8.7 mg/dL (8.5-10.1) Total Bilirubin 4.0 mg/dL (0.2-1.0) Aspartate Amino Transf (AST/SGOT) 934 U/L (15-37) Alanine Aminotransferase (ALT/SGPT) 169 U/L (14-59) Alkaline Phosphatase 166 U/L (46-116) Total Protein 5.9 g/dL (6.4-8.2) Albumin 4.2 g/dL (3.4-5.0) Albumin/Globulin Ratio 2.5 (1.0-1.7) Lipase 642 U/L (73-393) Test 11/11/18 03:00 11/11/18 05:05 11/11/18 06:30 11/11/18 07:15 Glucose (Fingerstick) 177 mg/dL (70-99) 33 mg/dL (70-99) 122 mg/dL (70-99) White Blood Count 16.1 x10^3/uL (4.0-11.0) Red Blood Count 2.24 x10^6/uL (3.50-5.40) Hemoglobin 7.2 g/dL (12.0-15.5) Hematocrit 22.4 % (36.0-47.0) Mean Corpuscular Volume 100 fL (79-100) Mean Corpuscular Hemoglobin 32 pg (25-35) Mean Corpuscular Hemoglobin Concent 32 g/dL (31-37) Red Cell Distribution Width 20.1 % (11.5-14.5) Platelet Count 25 x10^3/uL (140-400) Neutrophils (%) (Auto) 90 % (31-73) Lymphocytes (%) (Auto) 1 % (24-48) Monocytes (%) (Auto) 4 % (0-9) Eosinophils (%) (Auto) 5 % (0-3) Basophils (%) (Auto) 0 % (0-3) Neutrophils # (Auto) 14.5 x10^3/uL (1.8-7.7) Lymphocytes # (Auto) 0.1 x10^3/uL (1.0-4.8) Monocytes # (Auto) 0.6 x10^3/uL (0.0-1.1) Eosinophils # (Auto) 0.8 x10^3/uL (0.0-0.7) Basophils # (Auto) 0.1 x10^3/uL (0.0-0.2) Sodium Level 144 mmol/L (136-145) Potassium Level 4.3 mmol/L (3.5-5.1) Chloride Level 100 mmol/L (98-107) Carbon Dioxide Level 11 mmol/L (21-32) Anion Gap 33 (6-14) Blood Urea Nitrogen 48 mg/dL (7-20) Creatinine 5.5 mg/dL (0.6-1.0) Estimated GFR (Cockcroft-Gault) 7.9 BUN/Creatinine Ratio 9 (6-20) Glucose Level 73 mg/dL (70-99) Calcium Level 8.9 mg/dL (8.5-10.1) Total Bilirubin 3.9 mg/dL (0.2-1.0) Aspartate Amino Transf (AST/SGOT) 930 U/L (15-37) Alanine Aminotransferase (ALT/SGPT) 173 U/L (14-59) Alkaline Phosphatase 172 U/L (46-116) Total Protein 5.7 g/dL (6.4-8.2) Albumin 4.1 g/dL (3.4-5.0) Albumin/Globulin Ratio 2.6 (1.0-1.7) Test 11/11/18 08:00 11/11/18 08:30 11/11/18 08:40 Glucose (Fingerstick) 71 mg/dL (70-99) O2 Saturation 99 % (92-99) Arterial Blood pH 7.10 (7.35-7.45) Arterial Blood pCO2 at Patient Temp 21 mmHg (35-46) Arterial Blood pO2 at Patient Temp 329 mmHg (65-108) Arterial Blood HCO3 6 mmol/L (21-28) Arterial Blood Base Excess -21 mmol/L (-3-3) FiO2 100 White Blood Count 13.5 x10^3/uL (4.0-11.0) Red Blood Count 2.10 x10^6/uL (3.50-5.40) Hemoglobin 6.8 g/dL (12.0-15.5) Hematocrit 21.7 % (36.0-47.0) Mean Corpuscular Volume 103 fL (79-100) Mean Corpuscular Hemoglobin 33 pg (25-35) Mean Corpuscular Hemoglobin Concent 32 g/dL (31-37) Red Cell Distribution Width 20.6 % (11.5-14.5) Platelet Count 21 x10^3/uL (140-400) Lactic Acid Level 19.9 mmol/L (0.4-2.0) Micro Micro Microbiology 11/10/18 Blood Culture - Preliminary, Resulted NO GROWTH AFTER 1 DAY Review of Systems Constitutional: yes: weakness, alert Ears/Nose/Throat: Yes: no symptom reported Eyes: Yes: no symptom reported Pulmonary: Yes no symptom reported, Yes dyspnea Cardiovascular: Yes orthopnea Gastrointestional: Yes: abdominal pain Genitourinary: Yes: no symptom reported Musculoskeletal: Yes: muscle stiffness Skin: Yes no symptom reported Psychiatric/Neurological: Yes: no symptom reported Endocrine: Yes: no symptom reported Physical Exam General Appearance: no apparent distress Skin: warm Respiratory: decreased breath sounds Heart: S1S2 Abdomen: soft, distension, other (POS ASCITES) Genitourinary: bladder flat Extremities: pulses present Neurology: alert, oriented Musculoskeletal: Osteoarthritis Assessment Assessment IMP CRITICALLY ILL ACUTE RESP FAILURE WITH HYPOXIA ACIDEMIA SEPSIS HYPOTENSION ACUTE PANCREATITIS ESRD NON COMPLIANCE DIAZ WITH RECURRENT ASCITES CHRONIC HYPOTENSION DM II CHRONIC LEUCOCYTOSIS RECURRENT PLEURAL EFFUSIONS PLAN PRESSORS NEEDED ALBUMIN INFUSION UNABLE TO DIALYZE DUE TO HEMODYNAMIC INSTABILITY NOT EXPECTED TO SURVIVE D/W PULMONARY WILL FOLLOW HUNG BREWSTER MD Nov 11, 2018 11:28
--- NOTE | 2018-11-11 11:45 | NUR ---
Family here to see patient and speak with Dr. Guillen about the plan of care from this point forward. Both son and daughter state they don't want to put her through the trauma of having chest compressions. Both state understanding that the patient is on high dose medications that are supporting her blood pressure.
[2018-11-11] MEDS ORDERED: LIDOCAINE 2% TOPICAL JELLY 5GM TUBE. TP ONE (12:00)
--- NOTE | 2018-11-11 12:55 | PN ---
DATE: 11/11/2018 ADDENDUM I had a lengthy discussion with the patient's daughter, Marilin and her son. They were all in the room. I explained to them multisystem organ failure and critical illness and I recommended that at this point, we should not be doing any CPR or chest compression or electrical shock in case of any cardiac arrest and they all agree with that. At this time, we will not escalate any further treatment and we will not add any further pressor and if she is still alive on aggressive life support in the next 24 hours, the family would consider withdrawal of care. This was discussed with Dr. Strickland and discussed with RN. CRISTIAN AGUIRRE MD DR: ISAMAR/rebeka JOB#: [id number] / [id number] RADHA
--- NOTE | 2018-11-11 13:59 | NUR ---
Unable to obtain blood pressure and unable to obtain mean on patient at this time.
--- NOTE | 2018-11-11 16:35 | PDOC ---
PROGRESS NOTES Chief Complaint Chief Complaint sepsis and septic shock, acute hypoxic respiratory failure End stage liver disease elevated lipase Status post large-volume paracentesis 6 L 11/04/2018 Recurrent left pleural effusion with indwelling Pleurx catheter Stable large left pleural effusion. Underlying left lung pneumonia not ruled out. Diffuse interstitial opacities suggests interstitial pulmonary edema. ESRD on dialysis Saturday, noncompliance Anemia- Hgb low, Severe Non compliance with HD Anemia of ESRD quadriplegia Hypotension Diabetes type 2 on insulin Leukocytosis chronic, History of Present Illness History of Present Illness in ICU, intubated Dr. Guillen discussed at [facility] with family, will make DNR, but leave intubated, consider withdrawl of care soon on levaphed cont currnet Vitals Vitals Vital Signs Date Time Temp Pulse Resp B/P (MAP) Pulse Ox O2 Delivery O2 Flow Rate FiO2 11/11/18 15:00 92 18 Ventilator 11/11/18 09:00 90 11/11/18 07:00 98.2 98.2 11/10/18 17:01 3.0 Physical Exam Physical Exam Port-A-Cath without signs of any complications. HD catheter exposed as the dressing is off. No redness or drainage. General: Other (sedated on vent) Heart: Regular rate Lungs: Other (decrease bs) Abdomen: Normal bowel sounds, Soft, No tenderness Extremities: No clubbing, No cyanosis Skin: No breakdown Labs LABS Laboratory Tests Test 11/10/18 17:30 11/10/18 20:05 11/10/18 20:12 11/10/18 20:42 O2 Saturation 39 % (92-99) 99 % (92-99) Arterial Blood pH 7.12 (7.35-7.45) 7.40 (7.35-7.45) Arterial Blood pH (Temp corrected) 7.14 7.43 Arterial Blood pCO2 at Patient Temp 54 mmHg (35-46) 25 mmHg (35-46) Arterial Blood pCO2 (Temp correct) 50 mmHg 24 mmHg Arterial Blood pO2 at Patient Temp < 42 mmHg (65-108) 289 mmHg (65-108) Arterial Blood pO2 (Temp corrected) 29 mmHg 282 mmHg Arterial Blood HCO3 17 mmol/L (21-28) 15 mmol/L (21-28) Arterial Blood Base Excess -12 mmol/L (-3-3) -8 mmol/L (-3-3) FiO2 50 100 Glucose (Fingerstick) 30 mg/dL (70-99) 161 mg/dL (70-99) Test 11/10/18 23:43 11/11/18 02:35 11/11/18 02:36 11/11/18 03:00 Glucose (Fingerstick) 81 mg/dL (70-99) 41 mg/dL (70-99) 177 mg/dL (70-99) White Blood Count 18.3 x10^3/uL (4.0-11.0) Red Blood Count 2.29 x10^6/uL (3.50-5.40) Hemoglobin 7.3 g/dL (12.0-15.5) Hematocrit 22.5 % (36.0-47.0) Mean Corpuscular Volume 98 fL (79-100) Mean Corpuscular Hemoglobin 32 pg (25-35) Mean Corpuscular Hemoglobin Concent 33 g/dL (31-37) Red Cell Distribution Width 19.7 % (11.5-14.5) Platelet Count 18 x10^3/uL (140-400) Neutrophils (%) (Auto) 91 % (31-73) Lymphocytes (%) (Auto) 1 % (24-48) Monocytes (%) (Auto) 4 % (0-9) Eosinophils (%) (Auto) 4 % (0-3) Basophils (%) (Auto) 0 % (0-3) Neutrophils # (Auto) 16.6 x10^3/uL (1.8-7.7) Lymphocytes # (Auto) 0.1 x10^3/uL (1.0-4.8) Monocytes # (Auto) 0.7 x10^3/uL (0.0-1.1) Eosinophils # (Auto) 0.8 x10^3/uL (0.0-0.7) Basophils # (Auto) 0.0 x10^3/uL (0.0-0.2) Sodium Level 144 mmol/L (136-145) Potassium Level 3.8 mmol/L (3.5-5.1) Chloride Level 100 mmol/L (98-107) Carbon Dioxide Level 15 mmol/L (21-32) Anion Gap 29 (6-14) Blood Urea Nitrogen 47 mg/dL (7-20) Creatinine 5.4 mg/dL (0.6-1.0) Estimated GFR (Cockcroft-Gault) 8.0 BUN/Creatinine Ratio 9 (6-20) Glucose Level 43 mg/dL (70-99) Calcium Level 8.7 mg/dL (8.5-10.1) Total Bilirubin 4.0 mg/dL (0.2-1.0) Aspartate Amino Transf (AST/SGOT) 934 U/L (15-37) Alanine Aminotransferase (ALT/SGPT) 169 U/L (14-59) Alkaline Phosphatase 166 U/L (46-116) Total Protein 5.9 g/dL (6.4-8.2) Albumin 4.2 g/dL (3.4-5.0) Albumin/Globulin Ratio 2.5 (1.0-1.7) Lipase 642 U/L (73-393) Test 11/11/18 05:05 11/11/18 06:30 11/11/18 07:15 11/11/18 08:00 White Blood Count 16.1 x10^3/uL (4.0-11.0) Red Blood Count 2.24 x10^6/uL (3.50-5.40) Hemoglobin 7.2 g/dL (12.0-15.5) Hematocrit 22.4 % (36.0-47.0) Mean Corpuscular Volume 100 fL (79-100) Mean Corpuscular Hemoglobin 32 pg (25-35) Mean Corpuscular Hemoglobin Concent 32 g/dL (31-37) Red Cell Distribution Width 20.1 % (11.5-14.5) Platelet Count 25 x10^3/uL (140-400) Neutrophils (%) (Auto) 90 % (31-73) Lymphocytes (%) (Auto) 1 % (24-48) Monocytes (%) (Auto) 4 % (0-9) Eosinophils (%) (Auto) 5 % (0-3) Basophils (%) (Auto) 0 % (0-3) Neutrophils # (Auto) 14.5 x10^3/uL (1.8-7.7) Lymphocytes # (Auto) 0.1 x10^3/uL (1.0-4.8) Monocytes # (Auto) 0.6 x10^3/uL (0.0-1.1) Eosinophils # (Auto) 0.8 x10^3/uL (0.0-0.7) Basophils # (Auto) 0.1 x10^3/uL (0.0-0.2) Sodium Level 144 mmol/L (136-145) Potassium Level 4.3 mmol/L (3.5-5.1) Chloride Level 100 mmol/L (98-107) Carbon Dioxide Level 11 mmol/L (21-32) Anion Gap 33 (6-14) Blood Urea Nitrogen 48 mg/dL (7-20) Creatinine 5.5 mg/dL (0.6-1.0) Estimated GFR (Cockcroft-Gault) 7.9 BUN/Creatinine Ratio 9 (6-20) Glucose Level 73 mg/dL (70-99) Calcium Level 8.9 mg/dL (8.5-10.1) Total Bilirubin 3.9 mg/dL (0.2-1.0) Aspartate Amino Transf (AST/SGOT) 930 U/L (15-37) Alanine Aminotransferase (ALT/SGPT) 173 U/L (14-59) Alkaline Phosphatase 172 U/L (46-116) Total Protein 5.7 g/dL (6.4-8.2) Albumin 4.1 g/dL (3.4-5.0) Albumin/Globulin Ratio 2.6 (1.0-1.7) Glucose (Fingerstick) 33 mg/dL (70-99) 122 mg/dL (70-99) 71 mg/dL (70-99) Test 11/11/18 08:30 11/11/18 08:40 O2 Saturation 99 % (92-99) Arterial Blood pH 7.10 (7.35-7.45) Arterial Blood pCO2 at Patient Temp 21 mmHg (35-46) Arterial Blood pO2 at Patient Temp 329 mmHg (65-108) Arterial Blood HCO3 6 mmol/L (21-28) Arterial Blood Base Excess -21 mmol/L (-3-3) FiO2 100 White Blood Count 13.5 x10^3/uL (4.0-11.0) Red Blood Count 2.10 x10^6/uL (3.50-5.40) Hemoglobin 6.8 g/dL (12.0-15.5) Hematocrit 21.7 % (36.0-47.0) Mean Corpuscular Volume 103 fL (79-100) Mean Corpuscular Hemoglobin 33 pg (25-35) Mean Corpuscular Hemoglobin Concent 32 g/dL (31-37) Red Cell Distribution Width 20.6 % (11.5-14.5) Platelet Count 21 x10^3/uL (140-400) Lactic Acid Level 19.9 mmol/L (0.4-2.0) Assessment and Plan Assessmemt and Plan Problems Medical Problems: (1) Acute pancreatitis Status: Acute (2) Elevated troponin Status: Acute (3) Hypotension Status: Acute (4) Sepsis Status: Acute Comment Review of Relevant I have reviewed the following items chante (where applicable) has been applied. Labs Laboratory Tests Test 11/09/18 18:14 11/09/18 22:18 11/10/18 05:10 11/10/18 08:15 Glucose (Fingerstick) 102 mg/dL (70-99) 98 mg/dL (70-99) 148 mg/dL (70-99) Sodium Level 135 mmol/L (136-145) Potassium Level 4.5 mmol/L (3.5-5.1) Chloride Level 97 mmol/L (98-107) Carbon Dioxide Level 9 mmol/L (21-32) Anion Gap 29 (6-14) Blood Urea Nitrogen 77 mg/dL (7-20) Creatinine 7.8 mg/dL (0.6-1.0) Estimated GFR (Cockcroft-Gault) 5.2 Glucose Level 98 mg/dL (70-99) Calcium Level 9.4 mg/dL (8.5-10.1) Random Vancomycin Level 24.2 mcg/mL Test 11/10/18 09:10 11/10/18 10:55 11/10/18 15:40 11/10/18 17:30 O2 Saturation 70 % (92-99) 39 % (92-99) Arterial Blood pH 6.95 (7.35-7.45) 7.12 (7.35-7.45) Arterial Blood pH (Temp corrected) 6.97 7.14 Arterial Blood pCO2 at Patient Temp 38 mmHg (35-46) 54 mmHg (35-46) Arterial Blood pCO2 (Temp correct) 35 mmHg 50 mmHg Arterial Blood pO2 at Patient Temp 56 mmHg (65-108) < 42 mmHg (65-108) Arterial Blood pO2 (Temp corrected) 50 mmHg 29 mmHg Arterial Blood HCO3 8 mmol/L (21-28) 17 mmol/L (21-28) Arterial Blood Base Excess -23 mmol/L (-3-3) -12 mmol/L (-3-3) Oxyhemoglobin 69.0 % Methemoglobin 0.3 % (0.0-1.9) Carbon Monoxide, Quantitative 0.4 % (0.0-1.9) FiO2 28 50 White Blood Count 14.7 x10^3/uL (4.0-11.0) Red Blood Count 3.33 x10^6/uL (3.50-5.40) Hemoglobin 10.7 g/dL (12.0-15.5) Hematocrit 33.9 % (36.0-47.0) Mean Corpuscular Volume 102 fL (79-100) Mean Corpuscular Hemoglobin 32 pg (25-35) Mean Corpuscular Hemoglobin Concent 32 g/dL (31-37) Red Cell Distribution Width 20.1 % (11.5-14.5) Platelet Count 36 x10^3/uL (140-400) Neutrophils (%) (Auto) 94 % (31-73) Lymphocytes (%) (Auto) 2 % (24-48) Monocytes (%) (Auto) 2 % (0-9) Eosinophils (%) (Auto) 1 % (0-3) Basophils (%) (Auto) 1 % (0-3) Neutrophils # (Auto) 13.8 x10^3/uL (1.8-7.7) Lymphocytes # (Auto) 0.3 x10^3/uL (1.0-4.8) Monocytes # (Auto) 0.3 x10^3/uL (0.0-1.1) Eosinophils # (Auto) 0.1 x10^3/uL (0.0-0.7) Basophils # (Auto) 0.2 x10^3/uL (0.0-0.2) Prothrombin Time 30.2 SEC (11.7-14.0) Prothromb Time International Ratio 2.9 (0.8-1.1) Lactic Acid Level 10.7 mmol/L (0.4-2.0) 7.7 mmol/L (0.4-2.0) Ammonia 31 mcmol/L (11-34) Test 11/10/18 20:05 11/10/18 20:12 11/10/18 20:42 11/10/18 23:43 O2 Saturation 99 % (92-99) Arterial Blood pH 7.40 (7.35-7.45) Arterial Blood pH (Temp corrected) 7.43 Arterial Blood pCO2 at Patient Temp 25 mmHg (35-46) Arterial Blood pCO2 (Temp correct) 24 mmHg Arterial Blood pO2 at Patient Temp 289 mmHg (65-108) Arterial Blood pO2 (Temp corrected) 282 mmHg Arterial Blood HCO3 15 mmol/L (21-28) Arterial Blood Base Excess -8 mmol/L (-3-3) FiO2 100 Glucose (Fingerstick) 30 mg/dL (70-99) 161 mg/dL (70-99) 81 mg/dL (70-99) Test 11/11/18 02:35 11/11/18 02:36 11/11/18 03:00 11/11/18 05:05 White Blood Count 18.3 x10^3/uL (4.0-11.0) 16.1 x10^3/uL (4.0-11.0) Red Blood Count 2.29 x10^6/uL (3.50-5.40) 2.24 x10^6/uL (3.50-5.40) Hemoglobin 7.3 g/dL (12.0-15.5) 7.2 g/dL (12.0-15.5) Hematocrit 22.5 % (36.0-47.0) 22.4 % (36.0-47.0) Mean Corpuscular Volume 98 fL (79-100) 100 fL (79-100) Mean Corpuscular Hemoglobin 32 pg (25-35) 32 pg (25-35) Mean Corpuscular Hemoglobin Concent 33 g/dL (31-37) 32 g/dL (31-37) Red Cell Distribution Width 19.7 % (11.5-14.5) 20.1 % (11.5-14.5) Platelet Count 18 x10^3/uL (140-400) 25 x10^3/uL (140-400) Neutrophils (%) (Auto) 91 % (31-73) 90 % (31-73) Lymphocytes (%) (Auto) 1 % (24-48) 1 % (24-48) Monocytes (%) (Auto) 4 % (0-9) 4 % (0-9) Eosinophils (%) (Auto) 4 % (0-3) 5 % (0-3) Basophils (%) (Auto) 0 % (0-3) 0 % (0-3) Neutrophils # (Auto) 16.6 x10^3/uL (1.8-7.7) 14.5 x10^3/uL (1.8-7.7) Lymphocytes # (Auto) 0.1 x10^3/uL (1.0-4.8) 0.1 x10^3/uL (1.0-4.8) Monocytes # (Auto) 0.7 x10^3/uL (0.0-1.1) 0.6 x10^3/uL (0.0-1.1) Eosinophils # (Auto) 0.8 x10^3/uL (0.0-0.7) 0.8 x10^3/uL (0.0-0.7) Basophils # (Auto) 0.0 x10^3/uL (0.0-0.2) 0.1 x10^3/uL (0.0-0.2) Sodium Level 144 mmol/L (136-145) 144 mmol/L (136-145) Potassium Level 3.8 mmol/L (3.5-5.1) 4.3 mmol/L (3.5-5.1) Chloride Level 100 mmol/L (98-107) 100 mmol/L (98-107) Carbon Dioxide Level 15 mmol/L (21-32) 11 mmol/L (21-32) Anion Gap 29 (6-14) 33 (6-14) Blood Urea Nitrogen 47 mg/dL (7-20) 48 mg/dL (7-20) Creatinine 5.4 mg/dL (0.6-1.0) 5.5 mg/dL (0.6-1.0) Estimated GFR (Cockcroft-Gault) 8.0 7.9 BUN/Creatinine Ratio 9 (6-20) 9 (6-20) Glucose Level 43 mg/dL (70-99) 73 mg/dL (70-99) Calcium Level 8.7 mg/dL (8.5-10.1) 8.9 mg/dL (8.5-10.1) Total Bilirubin 4.0 mg/dL (0.2-1.0) 3.9 mg/dL (0.2-1.0) Aspartate Amino Transf (AST/SGOT) 934 U/L (15-37) 930 U/L (15-37) Alanine Aminotransferase (ALT/SGPT) 169 U/L (14-59) 173 U/L (14-59) Alkaline Phosphatase 166 U/L (46-116) 172 U/L (46-116) Total Protein 5.9 g/dL (6.4-8.2) 5.7 g/dL (6.4-8.2) Albumin 4.2 g/dL (3.4-5.0) 4.1 g/dL (3.4-5.0) Albumin/Globulin Ratio 2.5 (1.0-1.7) 2.6 (1.0-1.7) Lipase 642 U/L (73-393) Glucose (Fingerstick) 41 mg/dL (70-99) 177 mg/dL (70-99) Test 11/11/18 06:30 11/11/18 07:15 11/11/18 08:00 11/11/18 08:30 Glucose (Fingerstick) 33 mg/dL (70-99) 122 mg/dL (70-99) 71 mg/dL (70-99) O2 Saturation 99 % (92-99) Arterial Blood pH 7.10 (7.35-7.45) Arterial Blood pCO2 at Patient Temp 21 mmHg (35-46) Arterial Blood pO2 at Patient Temp 329 mmHg (65-108) Arterial Blood HCO3 6 mmol/L (21-28) Arterial Blood Base Excess -21 mmol/L (-3-3) FiO2 100 Test 11/11/18 08:40 White Blood Count 13.5 x10^3/uL (4.0-11.0) Red Blood Count 2.10 x10^6/uL (3.50-5.40) Hemoglobin 6.8 g/dL (12.0-15.5) Hematocrit 21.7 % (36.0-47.0) Mean Corpuscular Volume 103 fL (79-100) Mean Corpuscular Hemoglobin 33 pg (25-35) Mean Corpuscular Hemoglobin Concent 32 g/dL (31-37) Red Cell Distribution Width 20.6 % (11.5-14.5) Platelet Count 21 x10^3/uL (140-400) Lactic Acid Level 19.9 mmol/L (0.4-2.0) Laboratory Tests Test 11/10/18 17:30 11/10/18 20:05 11/10/18 20:12 11/10/18 20:42 O2 Saturation 39 % (92-99) 99 % (92-99) Arterial Blood pH 7.12 (7.35-7.45) 7.40 (7.35-7.45) Arterial Blood pH (Temp corrected) 7.14 7.43 Arterial Blood pCO2 at Patient Temp 54 mmHg (35-46) 25 mmHg (35-46) Arterial Blood pCO2 (Temp correct) 50 mmHg 24 mmHg Arterial Blood pO2 at Patient Temp < 42 mmHg (65-108) 289 mmHg (65-108) Arterial Blood pO2 (Temp corrected) 29 mmHg 282 mmHg Arterial Blood HCO3 17 mmol/L (21-28) 15 mmol/L (21-28) Arterial Blood Base Excess -12 mmol/L (-3-3) -8 mmol/L (-3-3) FiO2 50 100 Glucose (Fingerstick) 30 mg/dL (70-99) 161 mg/dL (70-99) Test 11/10/18 23:43 11/11/18 02:35 11/11/18 02:36 11/11/18 03:00 Glucose (Fingerstick) 81 mg/dL (70-99) 41 mg/dL (70-99) 177 mg/dL (70-99) White Blood Count 18.3 x10^3/uL (4.0-11.0) Red Blood Count 2.29 x10^6/uL (3.50-5.40) Hemoglobin 7.3 g/dL (12.0-15.5) Hematocrit 22.5 % (36.0-47.0) Mean Corpuscular Volume 98 fL (79-100) Mean Corpuscular Hemoglobin 32 pg (25-35) Mean Corpuscular Hemoglobin Concent 33 g/dL (31-37) Red Cell Distribution Width 19.7 % (11.5-14.5) Platelet Count 18 x10^3/uL (140-400) Neutrophils (%) (Auto) 91 % (31-73) Lymphocytes (%) (Auto) 1 % (24-48) Monocytes (%) (Auto) 4 % (0-9) Eosinophils (%) (Auto) 4 % (0-3) Basophils (%) (Auto) 0 % (0-3) Neutrophils # (Auto) 16.6 x10^3/uL (1.8-7.7) Lymphocytes # (Auto) 0.1 x10^3/uL (1.0-4.8) Monocytes # (Auto) 0.7 x10^3/uL (0.0-1.1) Eosinophils # (Auto) 0.8 x10^3/uL (0.0-0.7) Basophils # (Auto) 0.0 x10^3/uL (0.0-0.2) Sodium Level 144 mmol/L (136-145) Potassium Level 3.8 mmol/L (3.5-5.1) Chloride Level 100 mmol/L (98-107) Carbon Dioxide Level 15 mmol/L (21-32) Anion Gap 29 (6-14) Blood Urea Nitrogen 47 mg/dL (7-20) Creatinine 5.4 mg/dL (0.6-1.0) Estimated GFR (Cockcroft-Gault) 8.0 BUN/Creatinine Ratio 9 (6-20) Glucose Level 43 mg/dL (70-99) Calcium Level 8.7 mg/dL (8.5-10.1) Total Bilirubin 4.0 mg/dL (0.2-1.0) Aspartate Amino Transf (AST/SGOT) 934 U/L (15-37) Alanine Aminotransferase (ALT/SGPT) 169 U/L (14-59) Alkaline Phosphatase 166 U/L (46-116) Total Protein 5.9 g/dL (6.4-8.2) Albumin 4.2 g/dL (3.4-5.0) Albumin/Globulin Ratio 2.5 (1.0-1.7) Lipase 642 U/L (73-393) Test 11/11/18 05:05 11/11/18 06:30 11/11/18 07:15 11/11/18 08:00 White Blood Count 16.1 x10^3/uL (4.0-11.0) Red Blood Count 2.24 x10^6/uL (3.50-5.40) Hemoglobin 7.2 g/dL (12.0-15.5) Hematocrit 22.4 % (36.0-47.0) Mean Corpuscular Volume 100 fL (79-100) Mean Corpuscular Hemoglobin 32 pg (25-35) Mean Corpuscular Hemoglobin Concent 32 g/dL (31-37) Red Cell Distribution Width 20.1 % (11.5-14.5) Platelet Count 25 x10^3/uL (140-400) Neutrophils (%) (Auto) 90 % (31-73) Lymphocytes (%) (Auto) 1 % (24-48) Monocytes (%) (Auto) 4 % (0-9) Eosinophils (%) (Auto) 5 % (0-3) Basophils (%) (Auto) 0 % (0-3) Neutrophils # (Auto) 14.5 x10^3/uL (1.8-7.7) Lymphocytes # (Auto) 0.1 x10^3/uL (1.0-4.8) Monocytes # (Auto) 0.6 x10^3/uL (0.0-1.1) Eosinophils # (Auto) 0.8 x10^3/uL (0.0-0.7) Basophils # (Auto) 0.1 x10^3/uL (0.0-0.2) Sodium Level 144 mmol/L (136-145) Potassium Level 4.3 mmol/L (3.5-5.1) Chloride Level 100 mmol/L (98-107) Carbon Dioxide Level 11 mmol/L (21-32) Anion Gap 33 (6-14) Blood Urea Nitrogen 48 mg/dL (7-20) Creatinine 5.5 mg/dL (0.6-1.0) Estimated GFR (Cockcroft-Gault) 7.9 BUN/Creatinine Ratio 9 (6-20) Glucose Level 73 mg/dL (70-99) Calcium Level 8.9 mg/dL (8.5-10.1) Total Bilirubin 3.9 mg/dL (0.2-1.0) Aspartate Amino Transf (AST/SGOT) 930 U/L (15-37) Alanine Aminotransferase (ALT/SGPT) 173 U/L (14-59) Alkaline Phosphatase 172 U/L (46-116) Total Protein 5.7 g/dL (6.4-8.2) Albumin 4.1 g/dL (3.4-5.0) Albumin/Globulin Ratio 2.6 (1.0-1.7) Glucose (Fingerstick) 33 mg/dL (70-99) 122 mg/dL (70-99) 71 mg/dL (70-99) Test 11/11/18 08:30 11/11/18 08:40 O2 Saturation 99 % (92-99) Arterial Blood pH 7.10 (7.35-7.45) Arterial Blood pCO2 at Patient Temp 21 mmHg (35-46) Arterial Blood pO2 at Patient Temp 329 mmHg (65-108) Arterial Blood HCO3 6 mmol/L (21-28) Arterial Blood Base Excess -21 mmol/L (-3-3) FiO2 100 White Blood Count 13.5 x10^3/uL (4.0-11.0) Red Blood Count 2.10 x10^6/uL (3.50-5.40) Hemoglobin 6.8 g/dL (12.0-15.5) Hematocrit 21.7 % (36.0-47.0) Mean Corpuscular Volume 103 fL (79-100) Mean Corpuscular Hemoglobin 33 pg (25-35) Mean Corpuscular Hemoglobin Concent 32 g/dL (31-37) Red Cell Distribution Width 20.6 % (11.5-14.5) Platelet Count 21 x10^3/uL (140-400) Lactic Acid Level 19.9 mmol/L (0.4-2.0) Microbiology 11/10/18 Blood Culture - Preliminary, Resulted NO GROWTH AFTER 1 DAY Medications Current Medications Sodium Chloride (NORMAL SALINE FLUSH for STERILE FIELD) 10 ml [employer]-MED ONCE .ROUTE ; Start 11/08/18 at 11:04; Stop 11/08/18 at 11:05; Status DC Ondansetron HCl (Zofran) 4 mg 1X ONCE IV Last administered on 11/08/18at 12:56; Start 11/08/18 at 11:45; Stop 11/08/18 at 11:46; Status DC Sodium Chloride 500 ml @ 500 mls/hr 1X ONCE IV Last administered on 11/08/18at 13:15; Start 11/08/18 at 13:15; Stop 11/08/18 at 14:14; Status DC Fentanyl Citrate (Fentanyl 2ml Vial) 25 mcg 1X ONCE IV Last administered on 11/08/18at 14:12; Start 11/08/18 at 13:45; Stop 11/08/18 at 13:46; Status DC Piperacillin Sod/ Tazobactam Sod 3.375 gm/Sodium Chloride 50 ml @ 100 mls/hr 1X ONCE IV Last administered on 11/08/18at 16:55; Start 11/08/18 at 15:00; Stop 11/08/18 at 15:29; Status DC Vancomycin HCl (Vanco Per Pharmacy) 1 each PRN DAILY PRN MC SEE COMMENTS Last administered on 11/09/18at 08:13; Start 11/08/18 at 15:45; Stop 11/09/18 at 08:35; Status DC Vancomycin HCl 1.75 gm/Sodium Chloride 500 ml @ 250 mls/hr 1X ONCE IV Last administered on 11/08/18at 17:44; Start 11/08/18 at 16:00; Stop 11/08/18 at 17:59; Status DC Norepinephrine Bitartrate 250 ml @ 13.438 mls/ hr CONT PRN IV SEE I/O RECORD Last administered on 11/10/18at 18:20; Start 11/08/18 at 16:45; Stop 11/10/18 at 19:00; Status DC Piperacillin Sod/ Tazobactam Sod (Zosyn Per Pharmacy) 1 each PRN DAILY PRN MC SEE COMMENTS; Start 11/08/18 at 17:30; Stop 11/09/18 at 08:39; Status DC Piperacillin Sod/ Tazobactam Sod 2.25 gm/Sodium Chloride 50 ml @ 100 mls/hr Q8HRS IV Last administered on 11/09/18at 05:49; Start 11/08/18 at 18:00; Stop 11/09/18 at 08:35; Status DC Fentanyl Citrate (Fentanyl 2ml Vial) 50 mcg PRN Q3HRS PRN IV PAIN Last administered on 11/10/18at 06:07; Start 11/08/18 at 18:00 Ondansetron HCl (Zofran) 4 mg PRN Q4HRS PRN IV NAUSEA/VOMITING Last administered on 11/09/18at 16:42; Start 11/08/18 at 18:00 Famotidine (Pepcid Vial) 20 mg QHS IVP Last administered on 11/08/18at 21:02; Start 11/08/18 at 21:00; Stop 11/09/18 at 08:49; Status DC Vancomycin HCl (Vancomycin Random Level) 1 each 1X ONCE MC ; Start 11/10/18 at 06:00; Stop 11/10/18 at 06:00; Status DC Meropenem 500 mg/ Sodium Chloride 50 ml @ 100 mls/hr DAILY IV Last administered on 11/11/18at 09:05; Start 11/09/18 at 09:00 Albuterol Sulfate (Ventolin Neb Soln) 2.5 mg PRN Q6HRS PRN NEB SHORTNESS OF BREATH Last administered on 11/10/18at 02:09; Start 11/09/18 at 08:45 Clotrimazole (Mycelex) 10 mg BID MM Last administered on 11/09/18at 21:00; Start 11/09/18 at 09:00 Diphenhydramine HCl (Benadryl) 25 mg PRN Q6HRS PRN PO ITCHING; Start 11/09/18 at 08:45 Insulin Glargine (Lantus) 40 units DAILY08 SQ ; Start 11/09/18 at 09:00 Lactobacillus Rhamnosus (Culturelle) 1 cap BID PO Last administered on 11/09/18at 09:04; Start 11/09/18 at 09:00 Nystatin (Mycostatin) 1 efe BID TP Last administered on 11/09/18at 21:59; Start 11/09/18 at 09:00 Phenyleph/Shark Oil/Min Oil/Petrol (Preparation H) 1 efe PRN QID PRN RC RECTAL PAIN; Start 11/09/18 at 08:45 Rifaximin (Xifaxan) 550 mg BID PO Last administered on 11/09/18at 09:04; Start 11/09/18 at 09:00 Benzonatate (Tessalon Perle) 100 mg PRN Q6HRS PRN PO COUGH; Start 11/09/18 at 09:00 Calcium Acetate (Phoslo) 667 mg TIDWMEALS PO ; Start 11/09/18 at 12:00 Levothyroxine Sodium (Synthroid) 300 mcg DAILY06 PO Last administered on 11/10/18 05:59; Start 11/09/18 at 09:00 Midodrine (Proamatine) 10 mg [id number] PO Last administered on 11/09/18at 18:23; Start 11/09/18 at 09:38 Pantoprazole Sodium (Protonix) 40 mg DAILYAC PO Last administered on 11/09/18at 09:04; Start 11/09/18 at 09:00; Stop 11/10/18 at 11:31; Status DC Simethicone (Gas-X) 80 mg PRN AFTMEALHC PRN PO GAS / BLOATING Last administered on 11/09/18at 12:47; Start 11/09/18 at 09:45 Albumin Human 100 ml @ 100 mls/hr 1X ONCE IV Last administered on 11/09/18at 12:47; Start 11/09/18 at 12:00; Stop 11/09/18 at 12:59; Status DC Dextrose (Dextrose 50%-Water Syringe) 25 gm STK-MED ONCE IV ; Start 11/09/18 at 16:16; Stop 11/09/18 at 16:17; Status DC Bisacodyl (Dulcolax Tab) 5 mg PRN DAILY PRN PO CONSTIPATION Last administered on 11/09/18at 16:35; Start 11/09/18 at 16:30 Dextrose (Dextrose 50%-Water Syringe) 12.5 gm PRN Q15MIN PRN IV SEE COMMENTS Last administered on 11/11/18at 11:14; Start 11/09/18 at 17:00 Vancomycin HCl (Vanco Per Pharmacy) 1 each PRN DAILY PRN MC SEE COMMENTS Last administered on 11/10/18at 11:42; Start 11/10/18 at 08:30 Micafungin Sodium 100 mg/Dextrose 100 ml @ 100 mls/hr Q24H IV Last administered on 11/11/18at 09:57; Start 11/10/18 at 09:00 Hydrocortisone Sodium Succinate (Solu-CORTEF) 100 mg Q8HRS IV Last administered on 11/11/18 06:22; Start 11/10/18 at 14:00 Hydrocortisone Sodium Succinate (Solu-CORTEF) 100 mg 1X ONCE IV Last administered on 11/10/18at 09:39; Start 11/10/18 at 09:00; Stop 11/10/18 at 09:04; Status DC Sodium Chloride 1,000 ml @ 1,000 mls/hr 1X ONCE IV Last administered on 11/10/18at 09:40; Start 11/10/18 at 09:15; Stop 11/10/18 at 10:14; Status DC Sodium Bicarbonate (Sodium Bicarb Adult 8.4% Syr) 50 meq STK-MED ONCE .ROUTE ; Start 11/10/18 at 09:21; Stop 11/10/18 at 09:22; Status DC Sodium Bicarbonate (Sodium Bicarb Adult 8.4% Syr) 100 meq 1X ONCE IV Last administered on 11/10/18at 09:33; Start 11/10/18 at 09:30; Stop 11/10/18 at 09:31; Status DC Albumin Human 500 ml @ 125 mls/hr 1X ONCE IV Last administered on 11/10/18at 10:37; Start 11/10/18 at 10:30; Stop 11/10/18 at 14:29; Status DC Vancomycin HCl (Vancomycin Random Level) 1 each 1X ONCE MC ; Start 11/12/18 at 06:00; Stop 11/12/18 at 06:01 Pantoprazole Sodium (PROTONIX VIAL for IV PUSH) 40 mg DAILYAC IVP Last administered on 11/11/18at 07:58; Start 11/10/18 at 12:00 Ringer's Solution 500 ml @ 1,000 mls/hr 1X ONCE IV Last administered on 11/10/18at 12:12; Start 11/10/18 at 12:15; Stop 11/10/18 at 12:44; Status DC Vasopressin 40 unit/Dextrose 102 ml @ 6 mls/hr CONT PRN IV SEE I/O RECORD Last administered on 11/11/18at 02:47; Start 11/10/18 at 12:30 Sodium Chloride 1,000 ml @ 1,000 mls/hr Q1H PRN IV hypotension Last administered on 11/10/18at 18:00; Start 11/10/18 at 14:35; Stop 11/10/18 at 20:3 4; Status DC Albumin Human 400 ml @ 200 mls/hr 1X PRN PRN IV Hypotension Last administered on 11/10/18at 15:12; Start 11/10/18 at 14:45; Stop 11/10/18 at 20:44; Status DC Sodium Chloride 1,000 ml @ 400 mls/hr Q2H30M PRN IV PATENCY; Start 11/10/18 at 14:35; Stop 11/11/18 at 02:34; Status DC Info (PHARMACY MONITORING -- do not chart) 1 each PRN DAILY PRN MC SEE COMMENTS; Start 11/10/18 at 14:45; Stop 11/10/18 at 14:45; Status DC Info (PHARMACY MONITORING -- do not chart) 1 each PRN DAILY PRN MC SEE CO MMENTS; Start 11/10/18 at 14:45; Stop 11/10/18 at 14:45; Status DC Midazolam HCl (Versed) 5 mg STK-MED ONCE .ROUTE ; Start 11/10/18 at 17:40; Stop 11/10/18 at 17:41; Status DC Midazolam HCl (Versed) 5 mg 1X ONCE IV Last administered on 11/10/18at 17:51; Start 11/10/18 at 17:45; Stop 11/10/18 at 17:52; Status DC Fentanyl Citrate 30 ml @ 0 mls/hr CONT PRN IV SEE PROTOCOL; Start 11/10/18 at 17:45 Fentanyl Citrate (Fentanyl 2ml Vial) 25 mcg PRN Q1HR PRN IV SEE COMMENTS; Start 11/10/18 at 17:45 Fentanyl Citrate (Fentanyl 2ml Vial) 50 mcg PRN Q1HR PRN IV SEE COMMENTS; Start 11/10/18 at 17:45 Morphine Sulfate (Morphine Sulfate) 2 mg PRN Q1HR PRN IV SEE COMMENTS.; Start 11/10/18 at 17:45; Status UNV Morphine Sulfate (Morphine Sulfate) 4 mg PRN Q1HR PRN IV SEE COMMENTS.; Start 11/10/18 at 17:45; Status UNV Midazolam HCl 100 ml @ 0 mls/hr CONT PRN IV SEE PROTOCOL Last administered on 11/11/18at 04:31; Start 11/10/18 at 17:45 Sodium Chloride 1,000 ml @ 1,000 mls/hr 1X ONCE IV Last administered on 11/10/18at 18:00; Start 11/10/18 at 18:00; Stop 11/10/18 at 18:59; Status DC Epinephrine HCl 4 mg/Sodium Chloride 254 ml @ 26.67 mls/ hr CONT PRN IV SEE I/O RECORD; Start 11/10/18 at 18:15 Norepinephrine Bitartrate 32 mg/ Sodium Chloride 250 ml @ 33.5 mls/hr CONT PRN IV SEE I/O RECORD Last administered on 11/11/18at 07:56; Start 11/10/18 at 18:30 Sodium Bicarbonate (Sodium Bicarb Adult 8.4% Syr) 100 meq 1X ONCE IV Last administered on 11/10/18at 19:05; Start 11/10/18 at 19:30; Stop 11/10/18 at 19:31; Status DC Albumin Human 500 ml @ 125 mls/hr 1X ONCE IV Last administered on 11/10/18at 19:37; Start 11/10/18 at 19:15; Stop 11/10/18 at 23:14; Status DC Sodium Bicarbonate (Sodium Bicarb Adult 8.4% Syr) 100 meq 1X ONCE IV Last administered on 11/10/18at 20:34; Start 11/10/18 at 20:30; Stop 11/10/18 at 20:31; Status DC Sodium Bicarbonate (Sodium Bicarb Adult 8.4% Syr) 100 meq 1X ONCE IV ; Start 11/11/18 at 08:00; Stop 11/11/18 at 08:01; Status DC Active Scripts Active Culturelle (Lactobacillus Rhamnosus Gg) 1 Each Cap.sprink 1 Cap PO BID 14 Days Major-Prep Hemorrhoidal Oint (Phenyleph/Mineral Oil/Petrolat) 57 Gm Oint.appl 1 Efe RC PRN QID PRN 14 Days Nystatin 15 Gm Oint...g. 1 Efe TP BID 30 Days Clotrimazole 10 Mg Vielka 10 Mg MM BID 10 Days Benzonatate 100 Mg Capsule 100 Mg PO PRN Q6HRS PRN 10 Days Proair Hfa (Albuterol Sulfate) 8.5 Gm Hfa.aer.ad 2.5 Mg NEB PRN Q6HRS PRN 30 Days Midodrine Hcl 5 Mg Tablet 10 Mg PO [id number] 14 Days Reported Benadryl (Diphenhydramine Hcl) 25 Mg Capsule 25 Mg PO PRN Q6HRS PRN Calcium Acetate 667 Mg Tablet 667 Mg PO TIDWMEALS Dialyvite Tablet (Folic Acid/Vitamin B Comp W-C) 1 Each Tablet 1 Each PO QMWF Omeprazole 40 Mg Capsule. 1 Cap PO DAILY Xifaxan (Rifaximin) 550 Mg Tablet 1 Tab PO BID Fusion Plus Capsule (Iron,Fum&Ps/Fa/Vit B&C#18/L.ca) 1 Each Capsule 1 Each PO DAILY Albuterol Sulfate Conc Neb Soln (Albuterol Sulfate) 2.5 Mg/0.5 Ml Vial.neb 2.5 Mg NEB Q6HRS PRN Lactulose 20 Gm/30 Ml Solution 20 Gm PO TID Lantus Solostar (Insulin Glargine,Hum.rec.anlog) 100 Unit/1 Ml Insuln.pen 40 Units SQ DAILY08 SSI Calcium + Vitamin D Tablet (Calcium Carbonate/Vitamin D3) 1 Each Tablet 1 Each PO DAILY Novolog Flexpen (Insulin Aspart) 100 Unit/1 Ml Insuln.pen 0 SQ TIDAC 0-149: 0 units 150-199: 2 units 200-249: 4 units 250-299: 6 units 300-349: 8 units 350-399: 10 units >400: Call Synthroid (Levothyroxine Sodium) 25 Mcg Tablet 300 Mcg PO DAILY Flovent 110MCG Hfa (Fluticasone Propionate) 12 Gm Aer.w.adap 1 Puff IH DAILY Vitals/I & O Vital Sign - Last 24 Hours 11/10/18 11/10/18 11/10/18 11/10/18 17:01 17:45 18:00 18:00 Pulse 84 82 84 Resp 14 10 18 B/P (MAP) 112/37 (62) 57/44 (48) 118/58 (78) Pulse Ox 92 88 80 O2 Delivery Nasal Cannula NonRebreather Mask Ventilator Ventilator O2 Flow Rate 3.0 11/10/18 11/10/18 11/10/18 11/10/18 18:15 19:00 19:48 20:00 Temp 95.9 95.9 Pulse 81 84 80 Resp 18 24 24 B/P (MAP) 141/62 (88) 125/56 (79) 135/65 (88) Pulse Ox 86 95 96 O2 Delivery Ventilator Ventilator Mechanical Ventilator Ventilator 11/10/18 11/10/18 11/10/18 11/10/18 20:02 21:00 22:00 22:40 Pulse 82 82 Resp 18 18 B/P (MAP) 113/45 (67) 101/40 (60) 80/37 (51) Pulse Ox 96 97 98 O2 Delivery Ventilator Ventilator Ventilator 11/10/18 11/10/18 11/10/18 11/11/18 22:54 23:00 23:46 00:00 Temp 96.9 96.9 Pulse 90 Resp 18 B/P (MAP) 93/38 (56) 124/38 (66) Pulse Ox 99 98 O2 Delivery Ventilator Mechanical Ventilator Ventilator 11/11/18 11/11/18 11/11/18 11/11/18 01:00 01:20 02:00 03:00 Pulse 96 108 99 Resp 18 18 18 B/P (MAP) 130/77 (94) 110/38 (62) 133/36 (68) Pulse Ox 93 94 94 85 O2 Delivery Ventilator Ventilator Ventilator Ventilator 11/11/18 11/11/18 11/11/18 11/11/18 03:05 03:36 04:00 04:37 Temp 95.9 95.9 Pulse 115 Resp 18 B/P (MAP) 100/48 (65) 93/47 (62) Pulse Ox 90 95 O2 Delivery Ventilator Mechanical Ventilator Ventilator 11/11/18 11/11/18 11/11/18 11/11/18 05:00 05:20 05:27 06:00 Pulse 119 119 Resp 18 18 B/P (MAP) 102/43 (62) 102/63 (76) 97/41 (59) Pulse Ox 95 94 93 O2 Delivery Ventilator Ventilator Ventilator 11/11/18 11/11/18 11/11/18 11/11/18 07:00 08:00 08:00 08:00 Temp 98.2 98.2 Pulse 113 119 Resp 24 24 B/P (MAP) 80/48 (59) 84/59 (67) Pulse Ox 94 96 92 O2 Delivery Ventilator Mechanical Ventilator Ventilator Ventilator 11/11/18 11/11/18 11/11/18 11/11/18 09:00 10:00 10:01 11:00 Pulse 105 112 112 Resp 18 18 18 B/P (MAP) 78/67 (71) 60/45 (50) Pulse Ox 90 O2 Delivery Ventilator Ventilator Ventilator Ventilator 11/11/18 11/11/18 11/11/18 11/11/18 11:20 12:00 12:22 13:00 Pulse 107 108 Resp 22 18 B/P (MAP) 45/35 (38) O2 Delivery Ventilator Mechanical Ventilator Ventilator Ventilator 11/11/18 11/11/18 14:00 15:00 Pulse 97 92 Resp 18 18 B/P (MAP) O2 Delivery Ventilator Ventilator Intake and Output 11/10/18 11/10/18 11/11/18 15:00 23:00 07:00 Intake Total 2150 ml 1541.26 ml 1263 ml Output Total 1800 ml 200 ml Balance 350 ml 1341.26 ml 1263 ml BENJAMIN POOL MD Nov 11, 2018 16:35
--- NOTE | 2018-11-11 16:50 | RAD ---
Chest one view HISTORY: Respiratory failure Comparison 1 day prior FINDINGS: Endotracheal tube remains in place unchanged. Tunneled dialysis catheter on the left and port catheter on the right are again noted. Nasogastric tube is again seen. Multiside holed intrapleural catheter consistent with a Pleurx on the left is again noted unchanged. Trace residual effusion away from the catheter views persistent and appears stable. Interstitial edema has improved in the interim. Heart is stable. Pulmonary vasculature are thought to be less distended. There is however a small right pleural effusion. No pneumothorax IMPRESSION: Mild improvement in interstitial infiltrates However development of small right pleural effusion and right basilar atelectasis or infiltrate since the previous day. Otherwise stable one view chest Electronically signed by: Rodney Currie MD (11/11/2018 4:47 PM) [facility] [place]
--- NOTE | 2018-11-11 19:00 | NUR ---
Unable to obtain BP for 109 after multiple attempts, O2 saturation is intermittent. Patient remains on Levophed at 30 mcg/min & Vasopressin 0.4 mcg/min with NS carrier at 10 mL/ hr; all extremities are mottled and cool even with sally hugger on. Family is at bedside and is aware of pt's grim condition. Will continue to assess and monitor.
--- NOTE | 2018-11-11 20:15 | NUR ---
Daughter leaving for the night. RN notified daughter will be called with pt's passing.
--- NOTE | 2018-11-11 22:30 | NUR ---
Pt at 2056, confirmed by this RN and Aldair RN after auscultation of lung and heart tones for full minute. Notified pt's daughter via phone at 2104, daughter states she and her brother will be returning to see pt. All Dr's notified of . Daughter, son-in-law, and son here at 2200, notified of peaceful passing. Family stayed with pt for 30 minutes, then left with pt's belongings to include clothing, purse, wallet, glasses, and all jewelry except 2 earrings in left ear and silver necklace with 2 silver crosses around pt's neck. Daughter requests pharmacy to destroy all home meds sent down to pharmacy on admission. [facility] also notified and states Pt is a tissue and eye donation--NS placed in eyes and ice bag covering eyes. [place] [facility] [place]
[2018-11-12] MEDS ORDERED: VANCOMYCIN RANDOM LEVEL. MC ONE (06:00)
== END 2018-11-11 20:57 | disposition expired | DRG 871 ==
LOC: ER 10:32 → 1 WEST ICU 14:45
PROVIDERS: ADMIT Family Medicine; ATTEND Family Medicine
PROC: 0BH17EZ Insertion of Endotracheal Airway into Trachea, Via Natural or Artificial Opening (ICD-10-PCS; principal; 2018-11-10)
PROC: 5A1945Z Respiratory Ventilation, 24-96 Consecutive Hours (ICD-10-PCS; 2018-11-10)
PROC: 5A1D70Z Performance of Urinary Filtration, Intermittent, Less than 6 Hours Per Day (ICD-10-PCS; 2018-11-10)
DX: A41.9 Sepsis, unspecified organism (principal); K85.90 Acute pancreatitis without necrosis or infection, unspecified; N18.6 End stage renal disease; J18.9 Pneumonia, unspecified organism; G82.50 Quadriplegia, unspecified; R65.21 Severe sepsis with septic shock; E43 Unspecified severe protein-calorie malnutrition; J96.01 Acute respiratory failure with hypoxia; K72.00 Acute and subacute hepatic failure without coma; K76.7 Hepatorenal syndrome; I12.0 Hypertensive chronic kidney disease with stage 5 chronic kidney disease or end stage renal disease; J90 Pleural effusion, not elsewhere classified; J44.0 Chronic obstructive pulmonary disease with (acute) lower respiratory infection; R18.8 Other ascites; J81.1 Chronic pulmonary edema; K76.6 Portal hypertension; E11.22 Type 2 diabetes mellitus with diabetic chronic kidney disease; E11.42 Type 2 diabetes mellitus with diabetic polyneuropathy; K74.60 Unspecified cirrhosis of liver; E78.5 Hyperlipidemia, unspecified; K21.9 Gastro-esophageal reflux disease without esophagitis; F32.9 Major depressive disorder, single episode, unspecified; F41.9 Anxiety disorder, unspecified; M19.90 Unspecified osteoarthritis, unspecified site; D63.1 Anemia in chronic kidney disease; K75.81 Nonalcoholic steatohepatitis (NASH); E03.9 Hypothyroidism, unspecified; I95.89 Other hypotension; K80.20 Calculus of gallbladder without cholecystitis without obstruction; Z66 Do not resuscitate; D69.59 Other secondary thrombocytopenia; Z68.27 Body mass index [BMI] 27.0-27.9, adult; Z90.710 Acquired absence of both cervix and uterus; Z99.2 Dependence on renal dialysis; Z91.19 Patient's noncompliance with other medical treatment and regimen; Z91.14 Patient's other noncompliance with medication regimen; Z91.15 Patient's noncompliance with renal dialysis; Z88.1 Allergy status to other antibiotic agents; Z87.891 Personal history of nicotine dependence; Z86.14 Personal history of Methicillin resistant Staphylococcus aureus infection; Z82.49 Family history of ischemic heart disease and other diseases of the circulatory system; Z79.4 Long term (current) use of insulin; Z88.6 Allergy status to analgesic agent; Z88.5 Allergy status to narcotic agent; Z88.2 Allergy status to sulfonamides; Z88.8 Allergy status to other drugs, medicaments and biological substances
CPT/HCPCS: 32554; 36415; 36600; 71045; 73650; 74176; 80048; 80053; 80202; 82140; 82805; 82962; 83605; 83690; 83735; 83880; 84145; 84484; 85007; 85025; 85027; 85610; 86850; 86900; 86901; 86902; 86922; 87040; 87641; 93005; 94002; 94003; 94640; 94760; 96361; 96374; 96375; C9113; J1720; J2185; J2248; J2250; J2405; J2543; J3010; J3370; J3490; J7030; J7040; J7042; J7050; J7120; J7613; P9045; P9046; 99285-25